=== PATIENT | female | born 1990 | race Caucasian/White ===

== ENCOUNTER 2025-02-15 15:04 | Outpatient (REF) | payer OTHER, SELFPAY ==
[2025-02-19 10:08] LABS: Age Gdln ACOG Testing Note (.); HPV Aptima Negative (Negative); IGP, Aptima HPV, rfx 16/18,45 Note (.)
== END 2025-02-15 15:05 | disposition home or self-care (01) ==
LOC: LAB 15:04
PROVIDERS: PCP Family Medicine; Visit Provider Obstetrics & Gynecology
DX: Z01.419 Encounter for gynecological examination (general) (routine) without abnormal findings (principal)
CPT/HCPCS: 87624; 88175

== ENCOUNTER 2025-05-10 08:02 | Outpatient (RCR) | payer OTHER, SELFPAY ==
[2025-05-10] MEDS: RHO(D) IMMUNE GLOBULIN 1,500 UNIT SYRINGE 1500 UNIT IM (09:34)
[2025-05-10 09:39] VITALS: BP 114/71; PULSE 88; TEMP 36.6; O2SAT 95
== END 2025-05-17 23:59 | disposition home or self-care (01) ==
LOC: INF 08:02
PROVIDERS: Absent Provider Obstetrics & Gynecology; Family Provider Family Medicine; PCP Family Medicine; Referring Provider Obstetrics & Gynecology; Visit Provider Obstetrics & Gynecology
DX: O26.893 Other specified pregnancy related conditions, third trimester (principal); Z67.91 Unspecified blood type, Rh negative; Z3A.00 Weeks of gestation of pregnancy not specified
CPT/HCPCS: 36415; 86850; 86900; 86901; 96372; J2791

== ENCOUNTER 2025-06-19 10:54 | Outpatient (OUT) | payer OTHER, SELFPAY ==
--- NOTE | 2025-06-19 11:06 | US_ITS ---
The [address] [address] Patient Name: NORIS SAUCEDA MRN: [id number] date: 1990 Sex: F Assigned Patient Location: Current Patient Location: US Accession/Order Number: [id number] Exam Date: 06/19/2025 11:08 Report Date: 06/19/2025 12:15 At the request of: MARBELLA OMER DO Procedure: US OB BPP w non-stress BIOPHYSICAL PROFILE: CLINICAL INFORMATION: Multigravida of advanced maternal age COMPARISON: None There is a single live intrauterine gestation in cephalic presentation. The reported gestational age is 34 weeks 3 days. The heart rate measures 139 beats per minute. FINDINGS: TONE: 1 or more episodes of activity extension and flexion of extremity or opening and closing of the hand [Y] 2/2 GROSS BODY MOVEMENTS: 3 or more discrete body or limb movements [Y] 2/2 BREATHING MOVEMENTS: 1 or more episodes of breathing lasting at least 30 seconds [Y] 0/2 GRAYSON: A single deepest vertical pocket of amniotic fluid greater than 2 cm [Y] 2/2 GRAYSON: 17.7 cm. This is in upper normal range . Total score: 6/8 US/ OB BPP w non-stress IMPRESSION: FAILED BIOPHYSICAL PROFILE WITH NO BREATHING. Impression dictated by: Annel Barnhart M.D. 06/19/2025 12:15 PM Dictation Location: [email or web address] Electronically authenticated by: [id number] Y Date: 06/19/2025 12:15
[2025-06-19 11:54] VITALS: BP 121/73; PULSE 78
== END 2025-06-19 12:35 | disposition home or self-care (01) ==
LOC: US 10:54 → FBC 11:07
PROVIDERS: Family Provider Family Medicine; PCP Family Medicine; Visit Provider Obstetrics & Gynecology
DX: O09.523 Supervision of elderly multigravida, third trimester (principal); Z3A.34 34 weeks gestation of pregnancy
CPT/HCPCS: 76818

== ENCOUNTER 2025-06-22 17:12 | Outpatient (OUT) | payer OTHER, SELFPAY ==
--- NOTE | 2025-06-22 17:17 | US_ITS ---
[place] [id number] Patient Name: NORIS SAUCEDA MRN: [id number] date: 1990 Sex: F Assigned Patient Location: [facility] Current Patient Location: Accession/Order Number: [id number] Exam Date: 06/22/2025 17:18 Report Date: 06/22/2025 21:47 At the request of: MARBELLA OMER DO Procedure: US OB BPP w non-stress Ultrasound biophysical profile HISTORY: Multigravida. Advanced maternal age. Adequate breathing movement, gross body movement, tone and amniotic fluid volume for total score of 8 out of 8. The amniotic fluid index is 15.2cm within normal limits. The heart rate 150 bpm. US/US OB BPP w non-stress IMPRESSION: Adequate ultrasound biophysical profile Impression dictated by: Alfonzo Flores M.D. 06/22/2025 9:47 PM Dictation Location[facility] Electronically authenticated by: [id number] Y Date: 06/22/2025 21:47
--- OUTSIDE RECORDS SUMMARY | 2025-06-22 17:19 | XMS_ITS | CCD ---
Author Organization [facility] Care Team Providers Care Hr Generalist Name Role Phone OLIVA, MARIANELA E Unavailable Unavailable OLIVA, MARIANELA E Unavailable Unavailable OLIVA, MARIANELA E Unavailable Unavailable Macario Jarvis Attending Unavailable OLIVA, MARIANELA~[id number] UNKNOWN Primary Care Unavailable HEDGES, CHAU Admitting Unavailable HEDGES, CHAU Attending Unavailable HEDGES, CHAU Referring Unavailable OLIVA, MARIANELA~[id number] UNKNOWN Primary Care Unavailable HEDGES, CHAU W Referring Unavailable OLIVA, MARIANELA Primary Care Unavailable HEDGES, CHAU W Referring Unavailable OLIVA, MARIANELA Primary Care Unavailable HEDGES, CHAU W Referring Unavailable OLIVA, MARIANELA Primary Care Unavailable HEDGES, CHAU W Referring Unavailable OLIVA, MARIANELA Primary Care Unavailable HEDGES, CHAU W Admitting Unavailable HEDGES, CHAU W Attending Unavailable OLIVA, MARIANELA Primary Care Unavailable HEDGES, CHAU W Referring Unavailable OLIVA, MARIANELA Primary Care Unavailable HEDGES, CHAU W Referring Unavailable OLIVA, MARIANELA Primary Care Unavailable HEDGES, CHAU W Referring Unavailable OLIVA, MARIANELA Primary Care Unavailable Regina Huddleston Unavailable MD Marianela Oliva Primary Care Provider DO Mario Perez Attending Provider MD Marianela Oliva Primary Care Provider MD Derrick Wilson Attending Provider Marianela Oliva Unavailable MD Marianela Oliva Primary Care Provider [phone] DO Marissa Garcia Attending Provider MD Marianela Oliva Attending Provider MD Marianela Oliva Primary Care Provider Kuns, DO Mario P Attending Provider MD Marianela Oliva Primary Care Provider Kun - [facility], DO Mario P Attending Provider MD Marianela Oliva Attending Provider MD Derrick Wilson Attending Provider NO FAMILY, PHYSICIAN Primary Care Provider Unava ilable SAUL Reddy Attending Provider Marianela Oliva MD Primary Care Provider Marianela Oliva MD Primary Care Provider Kekaren SANTAMARIA Jose A Emergency Provider Marianela Oliva MD Primary Care Provider Kekaren SANTAMARIA Jose A Emergency Provider Yasmani Abdullahi DO Attending Provider Marianela Oliva MD Primary Care Provider [phone] Marianela Oliva MD Primary Care Provider Marianela Oliva MD Primary Care Provider Kuns - [facility], Mario P Admitting Unavailable Kuns - [facility], Mario P Attending Unavailable Oliva, Marianela E Primary Care Unavailable NO FAMILY, PHYSICIAN Primary Care Unavailable Derrick Wilson Admitting Unavailable Derrick Wilson Attending Unavailable Melissa Reddy Admitting Unavailable Melissa Reddy Attending Unavailable Oliva, Marianela E Primary Care Unavailable Oliva, Marianela E Primary Care Unavailable Oliva, Marianela E Attending Unavailable Oliva, Marianela E Admitting Unavailable Kaylen, Yasmani Attending Unavailable Oliva, Marianela E Primary Care Unavailable Kaylen, Yasmani Admitting Unavailable Kaylen, Yasmani Admitting Unavailable Kaylen, Yasmani Attending Unavailable Oliva, Marianela E Primary Care Unavailable Keister, Jose A Attending Unavailable Oliva, Marianela E Primary Care Unavailable Keister, Jose A Admitting Unavailable Kuns - [facility], Mario P Admitting Unavailable Kuns - [facility], Mario P Attending Unavailable Oliva, Marianela E Primary Care Unavailable KAYLEN, YASMANI Attending Unavailable KAYLEN, YASMANI Attending Unavailable KAYLEN, YASMANI Referring Unavailable KAYLEN, YASMANI Attending Unavailable KAYLEN, YASMANI Attending Unavailable YASMANI ABDULLAHI Attending Unavailable YASMANI ABDULLAHI Referring Unavailable YASMANI ABDULLAHI Attending Unavailable YAMSANI ABDULLAHI Attending Unavailable Marianela Oliva MD Primary Care Provider Yasmani Abdullahi DO Attending Provider [phone] [facility] Mario SANTAMARIA Attending Provider Marianela Oliva MD Attending Provider [phone] Medications Current Medications Medication Drug Class(es) Dates Sig (Normalized) Sig (Original) acetaminophen 500 mg oral tablet (20 sources) acetaminophen (Tylenol) 500 MG tablet Take by mouth Active Albuterol Sulfate 90 mcg/actuation HFA aerosol inhaler (3 sources) Start: 08-11-2024 Albuterol Sulfate 90 mcg/actuation HFA aerosol inhaler Active 1 INH INHALATION Every 4 hours as needed for shortness of breath or wheezing 6.7 August 11, 2024 12:00am Start: 08-11-2024 Albuterol Sulf ate 90 mcg/actuation HFA aerosol inhaler Active 1 INH INHALATION Every 4 hours as needed for shortness of breath or wheezing 6.7 August 10, 2024 11:00pm ALPRAZolam 0.5 mg oral tablet (2 sources) Benzodiazepine take 1 tablet by mouth every twelve hours ALPRAZolam 0.5 MG 1 tablet Orally Twice a day Active amoxicillin 500 mg oral capsule (6 sources) Penicillin-class Antibacterial Start: 12-04-19 take 1 capsule by mouth every eight hours Amoxicillin 500 MG 1 capsule Orally every 8 hrs for 5 day(s) Nov, Active Start: 10-15-2019 take 1 tablet by yamileth th every twelve hours Amoxicillin 875 MG 1 tablet Orally Twice a day for 7 days Sep, Not-Taking Blood Glucose Monitoring Suppl (D-Care Glucometer) w/Device kit (7 sources) Start: 02-15-2025 End: 02-15-2026 Blood Glucose Monitoring Suppl (D-Care Glucometer) w/Device kit Indications: Glucose found in urine on examination 1 kit Daily Use four times daily to check FSBS. In the morning prior to breakfast & 1 hour after each meal for a total of 4times daily. 1 kit 02/15/2025 02/15/2026 Active Blood Glucose Monitoring Suppl (True Metrix Air Glucose Meter) w/Device kit (14 sources) Start: 04-09-2025 Blood Glucose Monitoring Suppl (True Metrix Air Glucose Meter) w/Device kit Indications: Gestational diabetes mellitus (GDM), antepartum, gestational diabetes method of control unspecified ([facility]) 1 kit in the morning and 1 kit at noon and 1 kit in the evening and 1 kit before bedtime. 1 kit 04/09/2025 Active cephalexin 500 mg oral capsule (4 sources) Cephalosporin Antibacterial Start: 01-07-2022 take 1 capsule by mouth twice daily Cephalexin 500 MG 1 capsule Orally Twice daily for 7 days Dec, Active isopropyl alcohol 0.7 ml/ml medicated pad (20 sources) Start: 02-15-2025 Alcohol Swabs (Alcohol Prep Pad) 70 % pads Indications: Glucose found in urine on examination Apply 1 Pad topically Daily Use four times daily to check FSBS. 150 each 3 02/15/2025 Active penicillin v potassium 500 mg oral tablet (3 sources) Start: 08-07-2022 take 1 tablet by mouth every twelve hours Penicillin V Potassium 500 MG 1 tablet Orally Twice a day for 10 day(s) Jul, Active MV-Min-Fe Fum-FA-DHA ( 1 PO) (20 sources) MV-Min- Fe Fum-FA-DHA ( 1 PO) Take by mouth Active sertraline 100 mg oral tablet (20 sources) Serotonin Reuptake Inhibitor Start: 03-15-2025 End: 03-15-2026 take 1 tablet by mouth once daily sertraline (Zoloft) 100 MG tablet Indications: Anxiety, generalized Take 1 tablet (100 mg) by mouth Daily 30 tablet 11 03/15/2025 03/15/2026 Active Start: 05-18-2024 End: 03-15-2025 Sertraline 100 mg tablet Discontinued 50 MG PO Daily May 18, 2024 10:46am October 24, 2024 5:39pm Start: 05-18-2024 take 50 mg by mouth once daily Sertraline Active 50 MG PO Daily May 18, 2024 10:46am Start: 02-29-2024 End: 05-18-2024 take 1 tablet by mouth once daily Sertraline 100 mg tablet Discontinued 0 .ROUTE .COMPLEX February 29, 2024 1:13pm May 18, 2024 10:47am TAKE 1 TABLET BY MOUTH DAILY Start: 12-02-2023 End: 12-02-2023 take 2 tablets by mouth once daily Sertraline (Zoloft) 50 mg tablet Discontinued 100 MG PO Daily December 02, 2023 1:04pm December 02, 2023 2:18pm Start: 12-02-2023 End: 02-29-2024 take 1 tablet by mouth once daily Sertraline 100 mg tablet Discontinued 100 MG PO Daily December 02, 2023 1:00am February 29, 2024 1:13pm Start: 06-24-2019 End: 03-15-2025 take 1 tablet by mouth once daily Sertraline (Zoloft) 50 mg tablet Discontinued 50 MG PO Daily December 02, 2023 2:18pm December 02, 2023 5:09pm take 1 tablet by yamileth th once daily Sertraline HCl 100 MG TAKE 1 TABLET BY MOUTH EVERY DAY for 30 Active Completed/Discontinued Medications Medication Drug Class(es) Dates Sig (Normalized) Sig (Original) [id number] 200 actuat albuterol 0.09 mg/actuat metered dose inhaler (3 sources) beta2-Adrenergic Agonist Start: 08-11-2024 End: 06-12-2025 Albuterol Sulfate 90 mcg/actuation HFA aerosol inhaler Discontinued 1 INH INHALATION Every 4 hours as needed for shortness of breath or wheezing 6.7 August 11, 2024 12:00am June 12, 2025 8:33am Start: 08-11-2024 Albuterol Sulf ate Active 1 INH INHALATION Every 4 hours 6.7 August 11, 2024 12:00am azithromycin 250 mg oral tablet (4 sources) Macrolide Antimicrobial Start: 08-16-2024 End: 06-12-2025 Azithromycin 250 mg tablet Discontinued 0 PO .COMPLEX August 16, 2024 12:00am June 12, 2025 8:32am For 250 mg dose pack: take 500 mg today (day 1), then 250 mg for 4 days (days 2-5) PO dextromethorphan hydrobromide 15 mg / guaiFENesin 400 mg / pseudoephedrine hydrochloride 60 mg oral tablet (6 sources) alpha-Adrenergic Agonist, Uncompetitive P-xrsfmp-V-aspartat e Receptor Antagonist, Sigma-1 Agonist Start: 08-11-2024 End: 06-12-2025 take 4 tablets by mouth every twenty-four hours as needed Pseudoephedrine-D m-Guaifenesin (Capmist Dm) 60-15-400 mg tablet Discontinued 1 TAB PO Every 4 hours as needed for cold symptoms 06 03August 11, 2024 12:00am June 12, 2025 8:32am do not exceed 4 doses per 24 hrs docusate sodium 100 mg oral capsule (14 sources) Start: 06-24-2019 End: 08-15-2024 take 1 capsule by mouth once daily Docusate Sodium (Colace) 100 mg capsule Discontinued 100 MG PO Daily June 24, 2019 12:00am August 15, 2024 9:18am doxycycline hyclate 100 mg oral capsule (6 sources) Tetracycline-class Drug Start: 08-11-2024 End: 08-16-2024 take 1 capsule by mouth twice daily Doxycycline Hyclate 100 mg capsule Discontinued 100 MG PO Twice daily 06 08August 11, 2024 12:00am August 16, 2024 1:12pm ferrous sulfate 325 mg oral tablet (20 sources) Start: 06-24-2019 End: 06-12-2025 take 1 tablet by mouth once daily Ferrous Sulfate 325 mg (65 mg iron) tablet Discontinued 325 MG PO Daily June 24, 2019 12:00am June 12, 2025 8:36am Start: 05-30-2019 End: 06-24-2019 take 1 tablet by mouth twice daily Ferrous Sulfate 325 mg (65 mg iron) Tablet Discontinued 325 MG PO Twice daily May 30, 2019 12:00am June 24, 2019 10:41am fluconazole 150 mg oral tablet (4 sources) Azole Antifungal Start: 10-15-2019 take 1 tablet by mouth once Diflucan 150 MG 1 tablet Orally once for 1 days Sep, Not-Taking ibuprofen 800 mg oral tablet (14 sources) Nonsteroidal Anti-inflammatory Drug Start: 06-24-2019 End: 06-12-2025 take 1 tablet by mouth every six hours as needed for pain Ibuprofen 800 mg tablet Discontinued 800 MG PO Q6H as needed for pain June 24, 2019 12:00am June 12, 2025 8:36am Pnv Cmb#95-Ferrous Fumarate-Fa () 28 mg iron- 800 mcg Tablet (13 sources) Start: 02-27-2019 End: 06-24-2019 take 1 tablet by mouth once daily Pnv Cmb#95-Ferrous Fumarate-Fa () 28 mg iron- 800 mcg Tablet Discontinued 1 TAB PO Daily February 27, 2019 12:00am June 24, 2019 10:41am Start: 02-27-2019 End: 06-24-2019 take 1 tablet by mouth once daily Pnv Cmb#95-Ferrous Fumarate-Fa () 28 mg iron- 800 mcg Tablet Discontinued 1 TAB PO Daily February 26, 2019 11:00pm June 24, 2019 9:41am Pnv No.95-Ferrous Fumarate-Fa () 28 mg iron- 800 mcg Tablet (1 source) Start: 02-27-2019 End: 06-24-2019 take 1 tablet by mouth once daily Pnv No.95-Ferrous Fumarate-Fa () 28 mg iron- 800 mcg Tablet Discontinued 1 TAB PO Daily February 27, 2019 12:00am June 24, 2019 10:41am polysaccharide iron complex 391 mg oral capsule (3 sources) Start: 02-19-2025 End: 03-21-2025 take 1 capsule by mouth once daily iron polysaccharides (ProFe) 391.3 (180 Fe) MG capsule Indications: H/O: iron deficiency anemia Take 1 capsule (391.3 mg) by mouth Daily 30 capsule 6 02/19/2025 03/15/2025 Discontinued predniSONE 20 mg oral tablet (6 sources) Start: 08-11-2024 End: 06-12-2025 take 2 tablets by mouth once daily Prednisone 20 mg tablet Discontinued 40 MG PO Daily 07 22August 11, 2024 12:00am June 12, 2025 8:33am Start: 08-11-2024 take 40 mg by mouth once daily Prednisone Active 40 MG PO Daily 07 22August 11, 2024 12:00am Vitamins (4 sources) Vitamin s Not-Taking Problems Active Problems Problem Classification Problem Date Documented Date Episodic/Chronic Anxiety disorders (4 sources) Generalized anxiety disorder; Translations: [Generalized anxiety disorder] 03-15-2025 Chronic Contraceptive and procreative management (2 sources) Patient encounter status; Translations: [Encounter for other general counseling and advice on contraception] 02-15-2025 Episodic Diabetes mellitus without complication (2 sources) Glycosuria; Translations: [Glycosuria] 02-15-2025 Episodic Diabetes or abnormal glucose tolerance complicating ; childbirth; or the puerperium (2 sources) Gestational diabetes mellitus; Translations: [Gestational diabetes mellitus in , unspecified control] 05-22-2025 Episodic Immunizations and screening for infectious disease (2 sources) Exposure to sexually transmissible disorder; Translations: [Contact with and (suspected) exposure to infections with a predominantly sexual mode of transmission] 02-15-2025 Episodic Menstrual disorders (1 source) Amenorrhea, unspecified; Translations: [Amenorrhea, unspecified] Onset: 03-03-2018 Chronic Other complications of (4 sources) Abdominal pain in ; Translations: [Other specified related conditions, unspecified trimester] 12-06-2024 Episodic Other complications of (10 sources) Multigravida of advanced maternal age; Translations: [Supervision of elderly multigravida, unspecified trimester] 01-18-2025 Episodic Other female genital disorders (2 sources) Vaginal discharge; Translations: [Other specified noninflammatory disorders of vagina] 02-15-2025 Episodic Other hematologic conditions (1 source) Personal history of diseases of the blood and blood-forming organs and certain disorders involving the immune mechanism; Translations: [Personal history of diseases of the blood and blood-forming organs and certain disorders involving the immune mechanism] Onset: 03-14-2025 Episodic Other and delivery including normal (20 sources) Encounter for supervision of other normal , first trimester; Translations: [Encounter for test, result positive] Onset: 03-03-2018 01-18-2025 Episodic Other screening for suspected conditions (not mental disorders or infectious disease) (5 sources) Encounter for screening mammogram for malignant neoplasm of breast; Translations: [Patient encounter status] Episodic Other skin disorders (9 sources) Mass of skin of chest; Translations: [Localized swelling, mass and lump, trunk] 05-18-2024 Episodic Other upper respiratory infections (1 source) Streptococcal pharyngitis Episodic Pneumonia (except that caused by tuberculosis or sexually transmitted disease) (5 sources) Pneumonia, unspecified organism; Translations: [Pneumonia, organism unspecified] 08-11-2024 Episodic Residual codes; unclassified (1 source) Family history of carrier of genetic disease Episodic Residual codes; unclassified (1 source) Family history of malignant neoplasm of breast Episodic Residual codes; unclassified (2 sources) Gestation period, 12 weeks; Translations: [12 weeks gestation of ] 01-18-2025 Episodic Residual codes; unclassified (2 sources) Gestation period, 16 weeks; Translations: [16 weeks gestation of ] 02-15-2025 Episodic Residual codes; unclassified (2 sources) Gestation period, 20 weeks; Translations: [20 weeks gestation of ] 03-15-2025 Episodic Residual codes; unclassified (2 sources) Gestation period, 24 weeks; Translations: [24 weeks gestation of ] 04-10-2025 Episodic Residual codes; unclassified (2 sources) Gestation period, 28 weeks; Translations: [28 weeks gestation of ] 05-10-2025 Episodic Residual codes; unclassified (2 sources) Gestation period, 30 weeks; Translations: [30 weeks gestation of ] 05-22-2025 Episodic Residual codes; unclassified (2 sources) Gestation period, 32 weeks; Translations: [32 weeks gestation of ] 06-07-2025 Episodic Residual codes; unclassified (2 sources) Gestation period, 34 weeks; Translations: [34 weeks gestation of ] 06-21-2025 Episodic Unclassified (1 source) Cough, unspecified; Translations: [Cough, unspecified] Onset: 08-11-2024 Past or Other Problems Problem Classification Problem Date Documented Date Episodic/Chronic Abdominal pain (1 source) Unspecified abdominal pain; Translations: [Unspecified abdominal pain] Onset: 12-06-2024 Episodic Genitourinary symptoms and ill-defined conditions (1 source) Frequency of micturition Onset: 01-07-2022 Resolved: 01-07-2022 Episodic Hemorrhage during ; abruptio placenta; placenta previa (1 source) Threatened ; Translations: [Threatened ] Onset: 03-03-2018 Episodic Other complications of (1 source) Blighted ovum and nonhydatidiform mole; Translations: [Blighted ovum and nonhydatidiform mole] Onset: 03-09-2018 Episodic Other complications of (1 source) Supervision of other high risk pregnancies, first trimester; Translations: [Supervision of other high risk pregnancies, first trimester] Onset: 03-03-2018 Episodic Other skin disorders (6 sources) Localized swelling, mass and lump, trunk; Translations: [Localized superficial swelling, mass, or lump] Onset: 05-23-2024 05-18-2024 Episodic Spontaneous (1 source) Complete or unspecified spontaneous without complication; Translations: [Complete or unspecified spontaneous without complication] Onset: 03-22-2018 Episodic Urinary tract infections (1 source) Urinary tract infection, site not specified Onset: 01-07-2022 Resolved: 01-07-2022 Episodic Results Test Name Value Interpretation Reference Range Facility Urinalysis macro (dipstick) panel (U)on 06-21-2025 Bilirubin, UA Negative Negative - 4(70) +++ mg/dL [facility] Blood, UA Negative Negative - 50 Tavon/mcL [facility] Clarity, UA Clear [facility] Color, UA Yellow [facility] Glucose, UA Negative Negative - 2000(110) ++++ mg/dL [facility] Interpretation and review of laboratory results Abnormal [facility] Ketones, UA Positive Negative - 160(16) ++++ mg/dL [facility] Leukocytes, UA 1+ Negative - 500+++ Bertha/mcL [facility] Nitrite, UA Negative Negative - Positive [facility] pH, UA 7 5 - 9 [facility] Protein, UA Negative Negative - 2000(20) ++++ mg/dL [facility] Spec Grav, UA 1.015 1 - 1.03 [facility] Urobilinogen, UA 1.0 0.2 - 12 mg/dL [facility] US OB BPP W NON-STRESS on 06-19-2025 [place] [address] Ultrasound Report Signed Patient: NORIS GOETZ MR#: [id number] : 1990 Acct:[id number] Age/Sex: 35 / F ADM Date: 06/19/25 Loc: [facility] 250-[address]: Yasmani Abdullahi D.O. Ordering Physician: Yasmani Abdullahi D.O. Date of Service: 06/19/25 Procedure(s): US OB BPP w non-stress Accession Number(s): [id number] cc: Marianela Oliva M.D.; Yasmani Abdullahi D.O. The [place] [id number] Patient Name: NORIS GOETZ MRN: [facility]:[id number] date: 1990 Sex: F Assigned Patient Location: US Current Patient Location: US Accession/Order Number: [id number] Exam Date: 06/19/2025 11:08 Report Date: 06/19/2025 12:15 At the request of: YASMANI ABDULLAHI DO Procedure: US OB BPP w non-stress BIOPHYSICAL PROFILE: CLINICAL INFORMATION: Multigravida of advanced maternal age COMPARISON: None There is a single live intrauterine gestation in cephalic presentation. The reported gestational age is 34 weeks 3 days. The heart rate measures 139 beats per minute. FINDINGS: TONE: 1 or more episodes of activity extension and flexion of extremity or opening and closing of the hand [Y] 2/2 GROSS BODY MOVEMENTS: 3 or more discrete body or limb movements [Y] 2/2 BREATHING MOVEMENTS: 1 or more episodes of breathing lasting at least 30 seconds [Y] 0/2 GRAYSON: A single deepest vertical pocket of amniotic fluid greater than 2 cm [Y] 2/2 GRAYSON: 17.7 cm. This is in upper normal range . Total score: 6/8 US/US OB BPP w non-stress IMPRESSION: FAILED BIOPHYSICAL PROFILE WITH NO BREATHING. Impression dictated by: Annel Barnhart M.D. 06/19/2025 12:15 PM Dictation Location: [place] [address] Electronically authenticated by: [id number] Y Date: 06/19/2025 12:15 Dictated By: Annel Barnhart M.D. Signed By: 06/19/25 1217 DD/ 14 TD/TT: Stringer Machine Tender: [facility] RadiologyRuben MD - 06/19/2025 [place] [address] Ultrasound Report Signed Patient: NORIS GOETZ MR#: [id number] : 1990 Acct:[id number] Age/Sex: 35 / F ADM Date: 06/19/25 Loc: [facility] 250-[address]: Yasmani Abdullahi D.O. Ordering Physician: Yasmani Abdullahi D.O. Date of Service: 06/19/25 Procedure(s): US OB BPP w non-stress Accession Number(s): [id number] cc: Marianela Oliva M.D.; Yasmani Abdullahi D.O. [place] [address] Patient Name: NORIS GOETZ MRN: [id number] date: 1990 Sex: F Assigned Patient Location: US Current Patient Location: US Accession/Order Number: [id number] Exam Date: 06/19/2025 11:08 Report Date: 06/19/2025 12:15 At the request of: YASMANI ABDULLAHI DO Procedure: US OB BPP w non-stress BIOPHYSICAL PROFILE: CLINICAL INFORMATION: Multigravida of advanced maternal age COMPARISON: None There is a single live intrauterine gestation in cephalic presentation. The reported gestational age is 34 weeks 3 days. The heart rate measures 139 beats per minute. FINDINGS: TONE: 1 or more episodes of activity extension and flexion of extremity or opening and closing of the hand [Y] 2/2 GROSS BODY MOVEMENTS: 3 or more discrete body or limb movements [Y] 2/2 BREATHING MOVEMENTS: 1 or more episodes of breathing lasting at least 30 seconds [Y] 0/2 GRAYSON: A single deepest vertical pocket of amniotic fluid greater than 2 cm [Y] 2/2 GRAYSON: 17.7 cm. This is in upper normal range . Total score: 6/8 US/US OB BPP w non-stress IMPRESSION: FAILED BIOPHYSICAL PROFILE WITH NO BREATHING. Impression dictated by: Annel Barnhart M.D. 06/19/2025 12:15 PM Dictation Location: [place] [address] Electronically authenticated by: [id number] Y Date: 06/19/2025 12:15 Dictated By: Annel Barnhart M.D. Signed By: 06/19/25 1217 DD/ 14 TD/TT: Stringer Machine Tender: [facility] Radiology Study observation (narrative) [facility] OB BPP W NON-STRESS Ordered By: Radiologist Radiology on 06-19-2025 [facility] Work Phone: Urinalysis macro (dipstick) panel (U)on 06-07-2025 Bilirubin, UA Negative Negative - 4(70) +++ mg/dL [facility] Blood, UA Negative Negative - 50 Tavon/mcL [facility] Clarity, UA Clear [facility] Color, UA Yellow [facility] Glucose, UA Negative Negative - 2000(110) ++++ mg/dL [facility] Interpretation and review of laboratory results Normal [facility] Ketones, UA Negative Negative - 160(16) ++++ mg/dL [facility] Leukocytes, UA Negative Negative - 500+++ Bertha/mcL [facility] Nitrite, UA Negative Negative - Positive [facility] pH, UA 7.5 5 - 9 [facility] Protein, UA Negative Negative - 2000(20) ++++ mg/dL [facility] Spec Grav, UA 1.005 1 - 1.03 [facility] Urobilinogen, UA 1.0 0.2 - 12 mg/dL [facility] US OB FOLLOW UP TRANSABDOMIN AL APPROACHon 05-22-2025 US OB FOLLOW UP TRANSABDOMINAL APPROACH FINDINGS: Comparison March 15, 2025. A single, live intrauterine is present with normal cardiac rate of 153 beats per minute. Normal activity and amniotic fluid volume. Amniotic fluid index is 18 cm. Morphology is grossly normal. The current sonographic age is 32 weeks and 3 days, based on the following measurements: BPD 8.1 cm (32 weeks, 5 days) Head Circumference 29.9 cm (33 weeks, 1 day) Abdominal Circumference 27.8 cm (31 weeks, 6 days) Femur Length 6.1 cm (31 weeks, 6 days) Weight (g) by Percentile 88.4 % * These measurements result in an estimated date of delivery of July 14, 2025. The current estimated weight is 1889 grams +/- 283 grams (4 pounds, 3 ounces). IMPRESSION: Single, live intrauterine , current sonographic age of 32 weeks and 3 days, with an estimated date of delivery of July 14, 2025 (prior RENITA July 23, 2025) * Estimated Weight (g) by Percentile is based upon an accurate estimated age based on last menstrual period. TRANSCRIBED BY: ELECTRONICALLY SIGNED BY: Minh Reddy MD Normal Not Available Comment on above: Order Comment: US OB SCAN FOR GROWTH Estimated Date of Delivery: 07/28/25 Gestational Age as of 05/10/2025: 28w5d Urinalysis macro (dipstick) panel (U)on 05-22-2025 Bilirubin, UA Negative Negative - 4(70) +++ mg/dL [facility] Blood, UA Negative Negative - 50 Tavon/mcL [facility] Healthcare Clarity, UA Clear [facility] Color, UA Yellow [facility] Glucose, UA Negative Negative - 1999(110) ++++ mg/dL [facility] Interpretation and review of laboratory results Normal [facility] Ketones, UA Negative Negative - 160(16) ++++ mg/dL [facility] Leukocytes, UA Negative Negative - 500+++ Bertha/mcL [facility] Nitrite, UA Negative Negative - Positive [facility] pH, UA 6.5 5 - 9 [facility] Protein, UA Negative Negative - 1999(20) ++++ mg/dL [facility] Spec Grav, UA 1.01 1 - 1.03 [facility] Urobilinogen, UA 1.0 0.2 - 12 mg/dL [facility] Urinalysis macro (dipstick) panel (U)on 05-10-2025 Bilirubin, UA Negative Negative - 4(70) +++ mg/dL [facility] Blood, UA Negative Negative - 50 Tavon/mcL [facility] Healthcare Clarity, UA Clear [facility] Color, UA Yellow [facility] Glucose, UA Negative Negative - 1999(110) ++++ mg/dL [facility] Interpretation and review of laboratory results Abnormal [facility] Ketones, UA Positive Negative - 160(16) ++++ mg/dL [facility] Comment on above: Large Leukocytes, UA Negative Negative - 500+++ Bertha/mcL [facility] Nitrite, UA Negative Negative - Positive [facility] pH, UA 6.5 5 - 9 [facility] Healthcare Protein, UA Trace Negative - 1999(20) ++++ mg/dL [facility] Spec Grav, UA 1.015 1 - 1.03 [facility] Urobilinogen, UA 0.2 0.2 - 12 mg/dL [facility] Urinalysis macro (dipstick) panel (U)on 04-10-2025 Bilirubin, UA Negative Negative - 4(70) +++ mg/dL [facility] Blood, UA Negative Negative - 50 Tavon/mcL [facility] Clarity, UA Clear [facility] Color, UA Yellow [facility] Glucose, UA Negative Negative - 1999(110) ++++ mg/dL [facility] Interpretation and review of laboratory results Normal [facility] Ketones, UA Negative Negative - 160(16) ++++ mg/dL [facility] Leukocytes, UA Negative Negative - 500+++ Bertha/mcL [facility] Nitrite, UA Negative Negative - Positive [facility] pH, UA 6.5 5 - 9 [facility] Protein, UA Negative Negative - 1999(20) ++++ mg/dL [facility] Spec Grav, UA 1.025 1 - 1.03 [facility] Urobilinogen, UA 1.0 0.2 - 12 mg/dL [facility] Albumin [Mass/volume] in Ser um or Plasma by Bromocresol green (BCG) dye binding methoOrdered By: Mario Perez on 04-02-2025 Albumin BCG dye [Mass/Vol] 3.4 g/dL Low 3.5-5.7 [facility] Cholesterol in LDL Calc [Mas s/Vol]Ordered By: Mario Perez on 04-02-2025 Cholesterol in LDL [Mass/Vol] 120 mg/dL High 0-100 [facility] Comment on above: LDL ATP III CLASSIFI CATIONLDL less than 100 mg/dL OptimalLDL 100-129 mg/dL Near or above optimalLDL 130-159 mg/dL Borderline highLDL 160-189 mg/dL HighLDL greater than 189 mg/dL Very high Cholesterol in VLDL Calc [Ma ss/Vol]Ordered By: Mario Perez on 04-02-2025 Cholesterol in VLDL [Mass/Vol] 26 mg/dL [facility] Employee Comp Metabolic Pane marcel 04-02-2025 Albumin [Mass/Vol] 3.4 g/dL Low 3.5-5.7 [facility] Comment on above: Performed By: #### P ILLAR TSH, PILLAR CBC, PILLAR BMP, PILLAR LIPID #### [facility] [address] [place] [address] GFR/1.73 sq M.predicted MDRD (S/P/Bld) [Vol rate/Area] mL/min/{1.73_m2} Normal [facility] Comment on above: Performed By: #### P ILLAR TSH, PILLAR CBC, PILLAR BMP, PILLAR LIPID #### [facility] [address] [place] [address] Employee Comp Metabolic Pane lOrdered By: Mario Perez on 04-02-2025 Albumin/Globulin [Mass ratio] 1.5 {ratio} [facility] Comment on above: Performed By: #### P ILLAR TSH, PILLAR CBC, PILLAR BMP, PILLAR LIPID #### [address] ALP [Catalytic activity/Vol] 39 U/L 34-104 [facility] Comment on above: Performed By: #### P ILLAR TSH, PILLAR CBC, PILLAR BMP, PILLAR LIPID #### [facility] [address] [place] [address] ALT [Catalytic activity/Vol] 10 U/L 7-52 [facility] Comment on above: Performed By: #### P ILLAR TSH, PILLAR CBC, PILLAR BMP, PILLAR LIPID #### [facility] [address] [place] [address] Anion gap [Moles/Vol] 8.5 mmol/L 6.0-15.0 [facility] Comment on above: Performed By: #### P ILLAR TSH, PILLAR CBC, PILLAR BMP, PILLAR LIPID #### [facility] [address] [place] [address] AST [Catalytic activity/Vol] 12 U/L Low 13-39 [facility] Comment on above: Performed By: #### P ILLAR TSH, PILLAR CBC, PILLAR BMP, PILLAR LIPID #### [facility] [address] [place] [address] Bilirubin [Mass/Vol] 0.3 mg/dL 0.3-1.0 [facility] Comment on above: Performed By: #### P ILLAR TSH, PILLAR CBC, PILLAR BMP, PILLAR LIPID #### [facility] [address] Calcium [Mass/Vol] 8.2 mg/dL Low 8.6-10.3 [facility] Comment on above: Performed By: #### P ILLAR TSH, PILLAR CBC, PILLAR BMP, PILLAR LIPID #### [facility] [address] Chloride [Moles/Vol] 106 mmol/L 98-107 [facility] Comment on above: Performed By: #### P ILLAR TSH, PILLAR CBC, PILLAR BMP, PILLAR LIPID #### [facility] [address] [place] [address] CO2 [Moles/Vol] 25.4 mmol/L 21.0-31.0 [facility] Comment on above: Performed By: #### P ILLAR TSH, PILLAR CBC, PILLAR BMP, PILLAR LIPID #### [facility] [address] [place] [address] Creatinine [Mass/Vol] 0.49 mg/dL Low 0.60-1.20 [facility] Comment on above: Performed By: #### P ILLAR TSH, PILLAR CBC, PILLAR BMP, PILLAR LIPID #### [facility] [address] [place] [address] Globulin (S) [Mass/Vol] 2.3 g/dL [facility] Comment on above: Performed By: #### P ILLAR TSH, PILLAR CBC, PILLAR BMP, PILLAR LIPID #### [facility] [address] [place] [address] Glucose [Mass/Vol] 92 mg/dL 70-100 [facility] Comment on above: Performed By: #### P ILLAR TSH, PILLAR CBC, PILLAR BMP, PILLAR LIPID #### [facility] [address] [place] [address] Potassium [Moles/Vol] 3.9 mmol/L 3.5-5.1 [facility] Comment on above: Performed By: #### P ILLAR TSH, PILLAR CBC, PILLAR BMP, PILLAR LIPID #### [facility] [address] [place] [address] Protein [Mass/Vol] 5.7 g/dL Low 6.4-8.9 [facility] Comment on above: Performed By: #### P ILLAR TSH, PILLAR CBC, PILLAR BMP, PILLAR LIPID #### [facility] [address] [place] [address] Sodium [Moles/Vol] 136 mmol/L 136-145 [facility] Comment on above: Performed By: #### P ILLAR TSH, PILLAR CBC, PILLAR BMP, PILLAR LIPID #### [address] Urea nitrogen [Mass/Vol] 12 mg/dL 7-25 [facility] Comment on above: Performed By: #### P ILLAR TSH, PILLAR CBC, PILLAR BMP, PILLAR LIPID #### [facility] [address] [place] [address] Employee Complete Blood Coun tOrdered By: Mario Perez on 04-02-2025 Basophils (Bld) [#/Vol] 0.0 10*3/uL 0.0-0.2 [facility] Comment on above: Result Comment: PERF ORMED BY: [place] [id number] PATHOLOGIST TEST CAR DRIVER JESS VARGAS M.D. Performed By: #### P ILLAR LIPID, PILLAR CBC, PILLAR CMP ####[address] Basophils/100 WBC (Bld) 0.5 % . [facility] Comment on above: Performed By: #### P ILLAR LIPID, PILLAR CBC, PILLAR CMP ####[facility] Eosinophils (Bld) [#/Vol] 0.2 10*3/uL 0.0-0.45 [facility] Comment on above: Performed By: #### P ILLAR LIPID, PILLAR CBC, PILLAR CMP ####[place] [id number] [facility] [[email or web address]] Eosinophils/100 WBC (Bld) 2.5 % . [facility] Comment on above: Performed By: #### P ILLAR LIPID, PILLAR CBC, PILLAR CMP ####[place] [id number] [facility] [[email or web address]] Erythrocyte distribution width (RBC) [Ratio] 13.4 % 11.9-15.3 [facility] Comment on above: Performed By: #### P ILLAR LIPID, PILLAR CBC, PILLAR CMP ####[address] Hematocrit (Bld) [Volume fraction] 34.4 % 34.0-46.4 [facility] Comment on above: Performed By: #### P ILLAR LIPID, PILLAR CBC, PILLAR CMP ####[place] [id number] [facility] [[email or web address]] Hemoglobin (Bld) [Mass/Vol] 11.8 g/dL 11.8-15.4 [facility] Comment on above: Performed By: #### P ILLAR LIPID, PILLAR CBC, PILLAR CMP ####[address] Lymphocytes (Bld) [#/Vol] 1.6 10*3/uL 1.00-4.8 [facility] Comment on above: Performed By: #### P ILLAR LIPID, PILLAR CBC, PILLAR CMP ####[place] [id number] [facility] [[email or web address]] Lymphocytes/100 WBC (Bld) 21.6 % . [facility] Comment on above: Performed By: #### P ILLAR LIPID, PILLAR CBC, PILLAR CMP ####[place] [id number] [facility] [[email or web address]] MCH (RBC) [Entitic mass] 29.3 pg 24.7-34.3 [facility] Comment on above: Performed By: #### P ILLAR LIPID, PILLAR CBC, PILLAR CMP ####[address] MCV (RBC) [Entitic vol] 85.4 fL 80-100 [facility] Comment on above: Performed By: #### P ILLAR LIPID, PILLAR CBC, PILLAR CMP ####[address] Monocytes (Bld) [#/Vol] 0.6 10*3/uL 0.0-0.8 [facility] Comment on above: Performed By: #### P ILLAR LIPID, PILLAR CBC, PILLAR CMP ####[address] Monocytes/100 WBC (Bld) 7.9 % . [facility] Comment on above: Performed By: #### P ILLAR LIPID, PILLAR CBC, PILLAR CMP ####[address] Neutrophils (Bld) [#/Vol] 5.0 10*3/uL 1.8-7.7 [facility] Comment on above: Performed By: #### P ILLAR LIPID, PILLAR CBC, PILLAR CMP ####[address] Neutrophils/100 WBC (Bld) 67.5 % . [facility] Comment on above: Performed By: #### P ILLAR LIPID, PILLAR CBC, PILLAR CMP ####[place] [id number] [facility] [[email or web address]] Platelet mean volume (Bld) [Entitic vol] 9.5 fL 6.3-10.7 [facility] Comment on above: Performed By: #### P ILLAR LIPID, PILLAR CBC, PILLAR CMP ####[place] [id number] [facility] [[email or web address]] Platelets (Bld) [#/Vol] 198 10*3/uL 150-450 [facility] Comment on above: Performed By: #### P ILLAR LIPID, PILLAR CBC, PILLAR CMP ####[place] [id number] [facility] [[email or web address]] RBC (Bld) [#/Vol] 4.03 10*6/uL 3.60-5.00 [facility] Comment on above: Performed By: #### P ILLAR LIPID, PILLAR CBC, PILLAR CMP ####[facility] WBC (Bld) [#/Vol] 7.4 10*3/uL 3.8-11.6 [facility] Comment on above: Performed By: #### P ILLAR LIPID, PILLAR CBC, PILLAR CMP ####[facility] [id number] Employee Complete Blood Coun ton 04-02-2025 Mean Corpuscular HGB Conc 34.3 g/dL Normal 32.0-35.0 [facility] Comment on above: Performed By: #### P ILLAR LIPID, PILLAR CBC, PILLAR CMP ####[facility] NRBC% 0.1 /100{WBC} Normal 0-0.5 [facility] Comment on above: Performed By: #### P ILLAR LIPID, PILLAR CBC, PILLAR CMP ####[facility] Employee Lipid ProfileOrdere d By: Mario Perez on 04-02-2025 Cholesterol [Mass/Vol] 222 mg/dL High 140-200 [facility] Comment on above: Result Comment: Chol less than 200 mg/dl low risk Chol 201-239 mg/dl borderline risk Chol 240 mg/dl and greater high risk Performed By: #### P ILLAR TSH, PILLAR CBC, PILLAR BMP, PILLAR LIPID #### [facility] [address] Chol less than 200 m g/dl low riskChol 201-239 mg/dl borderline riskChol 240 mg/dl and greater high risk Cholesterol in HDL [Mass/Vol] 76 mg/dL 23- [facility] Comment on above: Result Comment: HDL CHOL ATP-III CLASSIFICATION Cardiovascular Risk HDL > or equal to 60 mg/dL LOW HDL < 40 mg/dL HIGH Performed By: #### P ILLAR TSH, PILLAR CBC, PILLAR BMP, PILLAR LIPID #### [facility] [address] HDL CHOL ATP-III CLA SSIFICATION Cardiovascular RiskHDL > or equal to 60 mg/dL LOWHDL < 40 mg/dL HIGH Cholesterol.total/Chol esterol in HDL [Mass ratio] 2.9 {ratio} <5.0 [facility] Comment on above: Result Comment: PERF ORMED BY: [place] [id number] PATHOLOGIST TEST CAR DRIVER JESS VARGAS M.D. Performed By: #### P ILLAR TSH, PILLAR CBC, PILLAR BMP, PILLAR LIPID #### [facility] [address] Employee Lipid Profileon LDL Cholesterol,Calculated 120 mg/dL High 0-100 [facility] Comment on above: Result Comment: LDL ATP III CLASSIFICATION LDL less than 100 mg/dL Optimal LDL 100-129 mg/dL Near or above optimal LDL 130-159 mg/dL Borderline high LDL 160-189 mg/dL High LDL greater than 189 mg/dL Very high Performed By: #### P ILLAR TSH, PILLAR CBC, PILLAR BMP, PILLAR LIPID #### [address] Triglyceride w/Reflex 131 mg/dL Normal 0-149 [facility] Comment on above: Result Comment: TRIG ATP III CLASSIFICATION TRIG less than 150 mg/dL Normal TRIG 150-199 mg/dL Borderline high TRIG 200-500 mg/dL High TRIG greater than 500 mg/dL Very high Standard traceable to the Center for Disease Conrtrol and Prevention (CDC) test method. Performed By: #### P ILLAR TSH, PILLAR CBC, PILLAR BMP, PILLAR LIPID #### [facility] [address] VLDL CHOLESTEROL 26 mg/dL Normal [facility] Comment on above: Performed By: #### P ILLAR TSH, PILLAR CBC, PILLAR BMP, PILLAR LIPID #### [facility] [address] [place] [id number] [facility] [[email or web address]] Leukocytes [#/volume] correc randolph for nucleated erythrocytes in Blood by Automated counOrdered By: Mario Perez on 04-02-2025 WBC corrected for nucl RBC Auto (Bld) [#/Vol] 7.4 10*3/uL 3.8-11.6 [facility] MCHC Auto (RBC) [Mass/Vol]Or dered By: Mario Perez on 04-02-2025 MCHC (RBC) [Mass/Vol] 34.3 g/dL 32.0-35.0 [facility] No Panel InformationOrdered By: Mario Perez on 04-02-2025 Estimated GFR (CKD-EPI) > 60.0 mL/Min [facility] Creatinine Clearance (Chem N/A [facility] Nucleated erythrocytes [Pres ence] in Blood by Automated countOrdered By: Mario Perez on 04-02-2025 Nucleated RBC Auto Ql (Bld) 0.1 /100{WBC} 0-0.5 [facility] Triglyceride [Mass/volume] i n Serum or PlasmaOrdered By: Mario Perez on 04-02-2025 Triglyceride [Mass/Vol] 131 mg/dL 0-149 [facility] Comment on above: TRIG ATP III CLASSIF ICATIONTRIG less than 150 mg/dL NormalTRIG 150-199 mg/dL Borderline highTRIG 200-500 mg/dL High TRIG greater than 500 mg/dL Very highStandard traceable to the Center for Disease Conrtrol and Prevention (CDC) test method. US OB 14+ WEEKS ANATOMY SCAN on 03-15-2025 US OB 14+ WEEKS ANATOMY SCAN EXAM: US OB 14+ WEEKS ANATOMY SCAN HISTORY: anatomy. COMPARISON: Ob ultrasound 12/21/2024. TECHNIQUE: Two-dimensional transabdominal grayscale ultrasound imaging of the pelvis was performed. FINDINGS: Gestation: Single Presentation: Variable Cardiac Activity: 149 beats per minute Placental Location: Anterior with no sonographic abnormalities identified. Distance from Placental Tip to Cervix: 6.1 cm Cervical Length: 4.7 cm Amniotic Fluid: Appears adequate MEASUREMENTS: BPD: 5.1 cm EGA: 21 weeks 3 days HC: 19.0 cm EGA: 21 weeks 2 days AC: 16.5 cm EGA: 21 weeks 4 days FL: 3.6 cm EGA: 21 weeks 3 days HC/AC Ratio: 1.15 The gestational age by today's ultrasound is 21 weeks 3 days (+/- 11 days gestation). Estimated Weight: 426 grams, +/- 64 grams ( 0 lb 15 oz). Weight Percentile for gestational age: 84 % ANATOMY C-Spine: Unremarkable T-Spine: Unremarkable L-Spine: Unremarkable Sacrum: Unremarkable Four Chamber Heart: Unremarkable LVOT: Unremarkable RVOT: Unremarkable Stomach: Unremarkable Kidneys: Unremarkable Bladder: Unremarkable Diaphragm: Unremarkable Cord insertion: Unremarkable Cord vessels: Three Lateral Ventricles: Unremarkable Cerebellum: Unremarkable Cisterna Magna: Unremarkable Posterior Fossa: Unremarkable Right Femur: Unremarkable Left Femur: Unremarkable Right Tib/Fib: Unremarkable Left Tib/Fib: Unremarkable Right Rad/Ulnar: Unremarkable Left Rad/Ulnar: Unremarkable Right Humerus: Unremarkable Left Humerus: Unremarkable Nose/Lips: Unremarkable Profile: Unremarkable Orbits: Unremarkable IMPRESSION: 1. Single, live intrauterine gestation 20 weeks, 5 days by LMP. Today's ultrasound measurements correlate with a gestational age of 21 weeks 3 days. Estimated weight is 426 grams, +/- 64 grams ( 0 lb 15 oz) which correlates to 84 %. RENITA is 07/23/2025. 2. Unremarkable ultrasound of the anatomy. Interpreted by: Electronically signed by KOJO ESPINOSA II, MD, PHD at 16-Mar-2025 11:50:11 AM [facility] Normal Not Available Comment on above: Order Comment: US OB ANATOMY SINGLE W US OB CERVICAL LENGTH Estimated Date of Delivery: 07/28/25 Gestational Age as of 02/15/2025: 16w5d Urinalysis macro (dipstick) panel (U)on 03-15-2025 Bilirubin, UA Negative Negative - 4(70) +++ mg/dL [facility] Blood, UA Negative Negative - 50 Tavon/mcL [facility] Clarity, UA Clear [facility] Color, UA Yellow [facility] Glucose, UA Negative Negative - 2000(110) ++++ mg/dL [facility] Interpretation and review of laboratory results Normal [facility] Ketones, UA Negative Negative - 160(16) ++++ mg/dL [facility] Leukocytes, UA Negative Negative - 500+++ Bertha/mcL [facility] Nitrite, UA Negative Negative - Positive [facility] pH, UA 7 5 - 9 [facility] Protein, UA Negative Negative - 1999(20) ++++ mg/dL [facility] Spec Grav, UA 1.015 1 - 1.03 [facility] Urobilinogen, UA 0.2 0.2 - 12 mg/dL [facility] Basophils Auto (Bld) [#/Vol] Ordered By: Yasmani Abdullahi on 03-14-2025 Basophils (Bld) [#/Vol] Automated basophil count 0.0-0.2 [facility] Basophils/100 WBC Auto (Bld) Ordered By: Yasmani Abdullahi on 03-14-2025 Basophils/100 WBC (Bld) Automated basophil % . [facility] CBC W Auto Differential pane l (Bld)on 03-14-2025 Basophils (Bld) [#/Vol] 0 10*3/uL 0.0 - 0.2 10*3/uL [facility] Basophils/100 WBC Manual cnt (Syn fld) 0.3 % . [facility] Eosinophils (Bld) [#/Vol] 0.1 10*3/uL 0.0 - 0.45 10*3/uL [facility] Eosinophils/100 WBC Manual cnt (Syn fld) 1 % . [facility] Erythrocyte distribution width (RBC) [Ratio] 13.5 % 11.9 - 15.3 % [facility] Hematocrit (Bld) [Volume fraction] 35.8 % 34.0 - 46.4 % [facility] Hemoglobin (Bld) [Mass/Vol] 12.6 g/dL 11.8 - 15.4 g/dL [facility] Interpretation and review of laboratory results Abnormal [facility] Lymphocytes (Bld) [#/Vol] 1.8 10*3/uL 1.00 - 4.8 10*3/uL [facility] Lymphocytes/100 WBC Manual cnt (Syn fld) 19.9 % . [facility] MCH (RBC) [Entitic mass] 29.2 pg 24.7 - 34.3 pg [facility] MCHC (RBC) [Mass/Vol] 35.1 g/dL High 32.0 - 35.0 g/dL [facility] MCV (RBC) [Entitic vol] 83.3 fL 80 - 100 fL [facility] Monocytes (Bld) [#/Vol] 0.7 10*3/uL 0.0 - 0.8 10*3/uL [facility] Monocytes+Macrophages/ 100 WBC Manual cnt (Syn fld) 8.2 % . [facility] Neutrophils (Bld) [#/Vol] 6.4 10*3/uL 1.8 - 7.7 10*3/uL [facility] Neutrophils/100 WBC Manual cnt (Syn fld) 70.6 % . [facility] NRBC 0.1 /100{WBC} 0 - 0.5 /100{WBC} [facility] Platelet mean volume (Bld) [Entitic vol] 9 fL 6.3 - 10.7 fL [facility] Platelets (Bld) [#/Vol] 235 10*3/uL 150 - 450 10*3/uL [facility] RBC LM.HPF (Urine sed) [#/Area] 4.3 10*6/uL 3.60 - 5.00 10*6/uL [facility] WBC (Bld) [#/Vol] 9.1 10*3/uL 3.8 - 11.6 10*3/uL [facility] WBC LM.HPF (Urine sed) [#/Area] 9.1 10*3/uL 3.8 - 11.6 10*3/uL [facility] Complete Blood Count Auto Di ffOrdered By: Yasmani Abdullahi on 03-14-2025 Basophils (Bld) [#/Vol] 0.0 10*3/uL 0.0-0.2 [facility] Comment on above: Result Comment: PERF ORMED BY: [facility] [address] [place] [address] PATHOLOGIST TEST CAR DRIVER JESS VARGAS M.D. Performed By: #### C BC ####[place] [id number] [address] Basophils/100 WBC (Bld) 0.3 % . [facility] Comment on above: Performed By: #### C BC ####[place] [id number] [address] Eosinophils (Bld) [#/Vol] 0.1 10*3/uL 0.0-0.45 [facility] Comment on above: Performed By: #### C BC ####[address] Eosinophils/100 WBC (Bld) 1.0 % . [facility] Comment on above: Performed By: #### C BC ####[address] Erythrocyte distribution width (RBC) [Ratio] 13.5 % 11.9-15.3 [facility] Comment on above: Performed By: #### C BC ####[address] Hematocrit (Bld) [Volume fraction] 35.8 % 34.0-46.4 [facility] Comment on above: Performed By: #### C BC ####[address] Hemoglobin (Bld) [Mass/Vol] 12.6 g/dL 11.8-15.4 [facility] Comment on above: Performed By: #### C BC ####[address] Lymphocytes (Bld) [#/Vol] 1.8 10*3/uL 1.00-4.8 [facility] Comment on above: Performed By: #### C BC ####[address] Lymphocytes/100 WBC (Bld) 19.9 % . [facility] Comment on above: Performed By: #### C BC ####[address] MCH (RBC) [Entitic mass] 29.2 pg 24.7-34.3 [facility] Comment on above: Performed By: #### C BC ####[place] [id number] [facility] [[email or web address]] MCV (RBC) [Entitic vol] 83.3 fL 80-100 [facility] Comment on above: Performed By: #### C BC ####[address] Monocytes (Bld) [#/Vol] 0.7 10*3/uL 0.0-0.8 [facility] Comment on above: Performed By: #### C BC ####[place] [id number] [facility] [[email or web address]] Monocytes/100 WBC (Bld) 8.2 % . [facility] Comment on above: Performed By: #### C BC ####[place] [id number] [facility] [[email or web address]] Neutrophils (Bld) [#/Vol] 6.4 10*3/uL 1.8-7.7 [facility] Comment on above: Performed By: #### C BC ####[place] [id number] [facility] [[email or web address]] Neutrophils/100 WBC (Bld) 70.6 % . [facility] Comment on above: Performed By: #### C BC ####[place] [id number] [facility] [[email or web address]] Platelet mean volume (Bld) [Entitic vol] 9.0 fL 6.3-10.7 [facility] Comment on above: Performed By: #### C BC ####[place] [id number] [facility] [[email or web address]] Platelets (Bld) [#/Vol] 235 10*3/uL 150-450 [facility] Comment on above: Performed By: #### C BC ####[place] [id number] [facility] [[email or web address]] RBC (Bld) [#/Vol] 4.30 10*6/uL 3.60-5.00 [facility] Comment on above: Performed By: #### C BC ####[place] [id number] [facility] [[email or web address]] WBC (Bld) [#/Vol] 9.1 10*3/uL 3.8-11.6 [facility] Comment on above: Performed By: #### C BC ####[place] [id number] [facility] [[email or web address]] Complete Blood Count Auto Di ffon 03-14-2025 Mean Corpuscular HGB Conc 35.1 g/dL High 32.0-35.0 [facility] Comment on above: Performed By: #### C BC ####[facility] [id number] NRBC% 0.1 /100{WBC} Normal 0-0.5 [facility] Comment on above: Performed By: #### C BC ####[facility] [id number] [place] [id number] [facility] [[email or web address]] Eosinophils Auto (Bld) [#/Vo l]Ordered By: Yasmani Abdullahi on 03-14-2025 Eosinophils (Bld) [#/Vol] Automated eosinophil count 0.0-0.45 [facility] Eosinophils/100 WBC Auto (Bl d)Ordered By: Yasmani Abdullahi on 03-14-2025 Eosinophils/100 WBC (Bld) Automated eosinophil % . [facility] Erythrocyte distribution wid th Auto (RBC) [Ratio]Ordered By: Yasmani Abdullahi on 03-14-2025 Erythrocyte distribution width (RBC) [Ratio] Erythrocyte distribution width [Ratio] by Automated count 11.9-15.3 [facility] Hematocrit Auto (Bld) [Volum e fraction]Ordered By: Yasmani Abdullahi on 03-14-2025 Hematocrit (Bld) [Volume fraction] Hematocrit [Volume Fraction] of Blood by Automated count 34.0-46.4 [facility] Hemoglobin [Mass/volume] in BloodOrdered By: Yasmani Abdullahi on 03-14-2025 Hemoglobin (Bld) [Mass/Vol] Hemoglobin [Mass/volume] in Blood 11.8-15.4 [facility] Leukocytes [#/volume] correc randolph for nucleated erythrocytes in Blood by Automated counOrdered By: Yasmani Abdullahi on 03-14-2025 WBC corrected for nucl RBC Auto (Bld) [#/Vol] Leukocytes [#/volume] corrected for nucleated erythrocytes in Blood by Automated coun 3.8-11.6 [facility] WBC corrected for nucl RBC Auto (Bld) [#/Vol] 9.1 10*3/uL 3.8-11.6 [facility] Lymphocytes Auto (Bld) [#/Vo l]Ordered By: Yasmani Abdullahi on 03-14-2025 Lymphocytes (Bld) [#/Vol] Lymphocytes [#/volume] in Blood by Automated count 1.00-4.8 [facility] Lymphocytes/100 WBC Auto (Bl d)Ordered By: Yasmani Abdullahi on 03-14-2025 Lymphocytes/100 WBC (Bld) Lymphocytes/100 leukocytes in Blood by Automated count . [facility] MCH Auto (RBC) [Entitic mass ]Ordered By: Yasmani Abdullahi on 03-14-2025 MCH (RBC) [Entitic mass] MCH [Entitic mass] by Automated count 24.7-34.3 [facility] MCHC Auto (RBC) [Mass/Vol]Or dered By: Yasmani Abdullahi on 03-14-2025 MCHC (RBC) [Mass/Vol] MCHC [Mass/volume] by Automated count High 32.0-35.0 [facility] MCHC (RBC) [Mass/Vol] 35.1 g/dL High 32.0-35.0 [facility] MCV Auto (RBC) [Entitic vol] Ordered By: Yasmani Abdullahi on 03-14-2025 MCV (RBC) [Entitic vol] MCV [Entitic volume] by Automated count 80-100 [facility] Monocytes Auto (Bld) [#/Vol] Ordered By: Yasmani Abdullahi on 03-14-2025 Monocytes (Bld) [#/Vol] Automated blood monocyte count 0.0-0.8 [facility] Monocytes/100 WBC Auto (Bld) Ordered By: Yasmani Abdullahi on 03-14-2025 Monocytes/100 WBC (Bld) Automated monocyte % . [facility] Neutrophils Auto (Bld) [#/Vo l]Ordered By: Yasmani Abdullahi on 03-14-2025 Neutrophils (Bld) [#/Vol] Neutrophils [#/volume] in Blood by Automated count 1.8-7.7 [facility] Neutrophils/100 WBC Auto (Bl d)Ordered By: Yasmani Abdullahi on 03-14-2025 Neutrophils/100 WBC (Bld) Automated neutrophil % . [facility] Nucleated erythrocytes [Pres ence] in Blood by Automated countOrdered By: Yasmani Abdullahi on 03-14-2025 Nucleated RBC Auto Ql (Bld) Nucleated erythrocytes [Presence] in Blood by Automated count 0-0.5 [facility] Nucleated RBC Auto Ql (Bld) 0.1 /100{WBC} 0-0.5 [facility] Platelet mean volume Auto (B ld) [Entitic vol]Ordered By: Yasmani Abdullahi on 03-14-2025 Platelet mean volume (Bld) [Entitic vol] Platelet mean volume [Entitic volume] in Blood by Automated count 6.3-10.7 [facility] Platelets Auto (Bld) [#/Vol] Ordered By: Yasmani Abdullahi on 03-14-2025 Platelets (Bld) [#/Vol] Platelets [#/volume] in Blood by Automated count 150-450 [facility] RBC Auto (Bld) [#/Vol]Ordere d By: Yasmani Abdullahi on 03-14-2025 RBC (Bld) [#/Vol] Erythrocytes [#/volu me] in Blood by Automated count 3.60-5.00 [facility] WBC Auto (Bld) [#/Vol]Ordere d By: Yasmani Abdullahi on 03-14-2025 WBC (Bld) [#/Vol] Leukocytes [#/volume ] in Blood by Automated count 3.8-11.6 [facility] IGP,APTIMA HPV,AGE GDLNon AGE GDLN ACOG TESTING Note . [facility] Comment on above: TESTS RESULT FLAG UN ITS REF RANGE LAB Clinician Provided Cytology Information Source.............[employer] Other.............. No. of containers..01 ThinPrep Vial Age Algo ACOG Gemma... 30-65 01 FLAG LEGEND: L-Low Normal,H-High Normal,LL-Alert Low,HH-Alert High <-Panic Low,>-Panic High,A-Abnormal,AA-Critical Abnormal Performed at: 01 =[address] [address] Azalea Quezada MD, HPV APTIMA Negative Negative [facility] Comment on above: This nucleic acid am plification test detects fourteen high- risk HPV types (16,18,31,33,35,39,45,51,52,56,58,59,66,68) without differentiation. Performed at: =[address] [id number] [employer] Instructor: Azalea Quezada MD, Phone: [phone] Performed at: [address] [id number] [employer] Instructor: Azalea Quezada MD, Phone: [phone] IGP, APTIMA HPV, RFX 16/18,45 Note . [facility] Comment on above: TESTS RESULT FLAG UN ITS REF RANGE LAB DIAGNOSIS: 02 NEGATIVE FOR INTRAEPITHELIAL LESION OR MALIGNANCY. Specimen adequacy: 02 Satisfactory for evaluation. No endocervical component is identified. An endocervical component is not commonly seen in the patient. Performed by: Darrell Martin, Allergy And Immunology Chief ([facility]) . 02 Note: Note 02 The Pap smear is a screening test designed to aid in the detection of premalignant and malignant conditions of the uterine cervix. It is not a diagnostic procedure and should not be used as the sole means of detecting cervical cancer. Both false-positive and false-negative reports do occur. Test Methodology: Note 02 This liquid based ThinPrep(R) pap test was screened with the use of an image guided system. HPV Genotype Reflex Note 02 Criteria not met, HPV Genotype not performed. FLAG LEGEND: L-Low Normal,H-High Normal,LL-Alert Low,HH-Alert High <-Panic Low,>-Panic High,A-Abnormal,AA-Critical Abnormal Performed at: [address] [address] Azalea Quezada MD, SPATULA-ALONE [employer] CLINISYNC [facility] RECURRENT VAGINITIS (HTRX)on 02-16-2025 ATOPOBIUM VAGINAE 0 [facility] ATOPOBIUM VAGINAE Not detected [facility] BVAB 2,3 (BACTERIAL VAGINOSIS ASSOCIATED BACTERIA 2, 3); MOBILUNCUS SPP 0 [facility] BVAB 2,3 (BACTERIAL VAGINOSIS ASSOCIATED BACTERIA 2, 3); MOBILUNCUS SPP Not detected [facility] JOHNNIE ALBICANS, PARAPSILOSIS, TROPICALIS 0 [facility] Healthcare JOHNNIE ALBICANS, PARAPSILOSIS, TROPICALIS Not detected [facility] JOHNNIE GLABRATA 0 [facility] Healthcare JOHNNIE GLABRATA Not detected [facility] JOHNNIE KRUSEI 0 [facility] Healthcare JOHNNIE KRUSEI Not detected [facility] CHLAMYDIA TRACHOMATIS 0 [facility] CHLAMYDIA TRACHOMATIS Not detected [facility] GARDNERELLA VAGINALIS 0 [facility] GARDNERELLA VAGINALIS Not detected [facility] MEGASPHAERA (TYPES 1, 2) 0 [facility] MEGASPHAERA (TYPES 1, 2) Not detected [facility] MYCOPLASMA GENITALIUM 0 [facility] MYCOPLASMA GENITALIUM Not detected [facility] NEISSERIA GONORRHOEAE 0 [facility] NEISSERIA GONORRHOEAE Not detected [facility] TRICHOMONAS VAGINALIS 0 [facility] TRICHOMONAS VAGINALIS Not detected [facility] Human papilloma virus 16+18+ 31+33+35+39+45+51+52+56+58+59+66+68 DNA [Presence] in Cherise 02-15-2025 HPV 16+18+31+33+35+39+45+5 1+52+56+58+59+66+68 DNA Probe+sig amp Ql (Cvx) Human papilloma virus 16+18+31+33+35+39+45+51+5 2+56+58+59+66+68 DNA [Presence] in Cer Negative [facility] Comment on above: This nucleic acid am plification test detects fourteen high- risk HPV types (16,18,31,33,35,39,45,51,52,56,58,59,66,68)without differentiation.Performed at: = - [employer] [address] [id number] Director: Azalea Quezada MD, Phone: [phone] at: [facility] [employer] [id number] Director: Azalea Quezada MD, Phone: [phone] No Panel Informationon 02-15 HPV High Risk Other Comment Note . [facility] Comment on above: TESTS RESULT FLAG UN ITS REF RANGE LAB DIAGNOSIS: 02 NEGATIVE FOR INTRAEPITHELIAL LESION OR MALIGNANCY.Specimen adequacy: 02 Satisfactory for evaluation. No endocervical component is identified. An endocervical component is not commonly seen in the patient.Performed by: 02 Oli Martin Allergy And Immunology Chief ([facility]). 02Note: Note 02 The Pap smear is a screening test designed to aid in the detection of premalignant and malignant conditions of the uterine cervix. It is not a diagnostic procedure and should not be used as the sole means of detecting cervical cancer. Both false-positive and false-negative reports do occur.Test Methodology: Note 02 This liquid based ThinPrep(R) pap test was screened with the use of an image guided system.HPV Genotype Reflex Note 02 Criteria not met, HPV Genotype not performed. ------- FLAG LEGEND: L-Low Normal,H-High Normal,LL-Alert Low,HH-Alert High <-Panic Low,>-Panic High,A-Abnormal,AA-Critical Abnormal -----Performed at:[address] [address] Azalea Quezada MD, Reference Lab Test Patient Age Note . [facility] Comment on above: TESTS RESULT FLAG UN ITS REF RANGE LAB Clinician Provided Cytology Information Source.............[employer] Other.............. No. of containers..01 ThinPrep VialAge Belindao SANDEEOG Gemma... 29 FLAG LEGEND: L-Low Normal,H-High Normal,LL-Alert Low,HH-Alert High <-Panic Low,>-Panic High,A-Abnormal,AA-Critical Abnormal -----Performed at:01 [facility] [address] [place] [address] Azalea Quzeada MD, Urinalysis macro (dipstick) panel (U)on 02-15-2025 Bilirubin, UA Negative Negative - 4(70) +++ mg/dL [facility] Blood, UA Negative Negative - 50 Tavon/mcL [facility] Clarity, UA Clear [facility] Color, UA Yellow [facility] Glucose, UA Positive Negative - 1999(110) ++++ mg/dL [facility] Comment on above: 100 Interpretation and review of laboratory results Abnormal [facility] Ketones, UA Negative Negative - 160(16) ++++ mg/dL [facility] Leukocytes, UA Negative Negative - 500+++ Bertha/mcL [facility] Nitrite, UA Negative Negative - Positive [facility] pH, UA 5.5 5 - 9 [facility] Protein, UA Negative Negative - 1999(20) ++++ mg/dL [facility] Spec Grav, UA 1.005 1 - 1.03 [facility] Urobilinogen, UA 0.2 0.2 - 12 mg/dL [facility] Urinalysis macro (dipstick) panel (U)on 01-18-2025 Bilirubin, UA Negative Negative - 4(70) +++ mg/dL [facility] Blood, UA Negative Negative - 50 Tavon/mcL [facility] Clarity, UA Clear [facility] Color, UA Yellow [facility] Glucose, UA Negative Negative - 1999(110) ++++ mg/dL [facility] Interpretation and review of laboratory results Abnormal [facility] Ketones, UA Negative Negative - 160(16) ++++ mg/dL [facility] Leukocytes, UA Negative Negative - 500+++ Bertha/mcL [facility] Nitrite, UA Negative Negative - Positive [facility] pH, UA 6 5 - 9 [facility] Protein, UA Negative Negative - 1999(20) ++++ mg/dL [facility] Spec Grav, UA 1.03 1 - 1.03 [facility] Urobilinogen, UA 0.2 0.2 - 12 mg/dL [facility] A1C with Estimated Average G alex 12-27-2024 Glucose [Mass/Vol] 103 mg/dL Normal [facility] Comment on above: Order Comment: NONFA STING.JKW Result Comment: PERF ORMED BY: [facility] [address] [place] [address] PATHOLOGIST TEST CAR DRIVER LEÓN GARCIA M.D. Performed By: #### H CV RX PCR, RPR W RFX, RUBELLA IGG, HBSAG, HIV SCREEN ####[facility] ,#### CUU, A1C WT eA, CBC, URDS ####[address] HbA1c (Bld) [Mass fraction] 5.2 % Normal 4.3-5.6 [facility] Comment on above: Order Comment: NONFA STING.JKW Result Comment: Incr eased risk for diabetes: 5.7 - 6.4 diabetes: >6.4 glycemic control for adults with diabetes: <7.0 Performed By: #### H CV RX PCR, RPR W RFX, RUBELLA IGG, HBSAG, HIV SCREEN ####[facility] ,#### CUU, A1C WTH eA, CBC, URDS ####[address] Amphetamine Screen Ql (U)Ord ered By: Yasmani Abdullahi on 12-27-2024 Amphetamines Ql (U) Amphetamines screen Negativ e [facility] Barbiturates [Presence] in U rine by Screen methodOrdered By: Yasmani Abdullahi on 12-27-2024 Barbiturates Screen Ql (U) Barbiturates [Presence] in Urine by Screen method Negative [facility] Basophils Auto (Bld) [#/Vol] Ordered By: Yasmani Abdullahi on 12-27-2024 Basophils (Bld) [#/Vol] Automated basophil count 0.0-0.2 [facility] Basophils/100 WBC Auto (Bld) Ordered By: Yasmani Abdullahi on 12-27-2024 Basophils/100 WBC (Bld) Automated basophil % . [facility] Benzodiazepines Screen Ql (U )Ordered By: Yasmani Abdullahi on 12-27-2024 Benzodiazepines Ql (U) Benzodiazepines [Presence] in Urine by Screen method Negative [facility] Benzoylecgonine [Presence] i n Urine by Screen methodOrdered By: Yasmani Abdullahi on 12-27-2024 Benzoylecgonine Screen Ql (U) Benzoylecgonine [Presence] in Urine by Screen method Negative [facility] Blood estimated average gluc ose determination by estimation from glycated hemoglobinOrdered By: Yasmani Abdullahi on 12-27-2024 Average glucose Estimated from glycated hemoglobin (Bld) [Mass/Vol] Glucose mean value [Mass/volume] in Blood Estimated from glycated hemoglobin [facility] Cannabinoids [Presence] in U rine by Screen methodOrdered By: Yasmani Abdullahi on 12-27-2024 Cannabinoids Screen Ql (U) Cannabinoids [Presence] in Urine by Screen method Negative [facility] Comment on above: These are unconfirme d results and should not be used for legal purposes. Drug Cut-Off Concentration: AMPH 1000 ng/mL ABELARDO 200 ng/mL JESSE 200 ng/mL COCM 300 ng/mL OP 300 ng/mL PCP 25 ng/mL THC 20 ng/mL Complete Blood Count Auto Di ffon 12-27-2024 Basophils (Bld) [#/Vol] 0.0 10*3/uL Normal 0.0-0.2 [facility] Comment on above: Order Comment: NONFA STING.JKW Result Comment: PERF ORMED BY: [facility] [address] [place] [address] PATHOLOGIST TEST CAR DRIVER LEÓN GARCIA M.D. Performed By: #### H CV RX PCR, RPR W RFX, RUBELLA IGG, HBSAG, HIV SCREEN #### [facility] , #### CUU, A1C WTH eA, CBC, URDS #### [address] Basophils/100 WBC (Bld) 0.6 % Normal . [facility] Comment on above: Order Comment: NONFA STING.JKW Performed By: #### H CV RX PCR, RPR W RFX, RUBELLA IGG, HBSAG, HIV SCREEN #### [facility] , #### CUU, A1C WTH eA, CBC, URDS #### [address] Eosinophils (Bld) [#/Vol] 0.1 10*3/uL Normal 0.0-0.45 [facility] Comment on above: Order Comment: NONFA STING.JKW Performed By: #### H CV RX PCR, RPR W RFX, RUBELLA IGG, HBSAG, HIV SCREEN #### [facility] , #### CUU, A1C WTH eA, CBC, URDS #### [address] Eosinophils/100 WBC (Bld) 1.7 % Normal . [facility] Comment on above: Order Comment: NONFA STING.JKW Performed By: #### H CV RX PCR, RPR W RFX, RUBELLA IGG, HBSAG, HIV SCREEN #### [facility] , #### CUU, A1C WTH eA, CBC, URDS #### [address] Erythrocyte distribution width (RBC) [Ratio] 13.7 % Normal 11.9-15.3 [facility] Comment on above: Order Comment: NONFA STING.JKW Performed By: #### H CV RX PCR, RPR W RFX, RUBELLA IGG, HBSAG, HIV SCREEN #### [facility] , #### CUU, A1C WTH eA, CBC, URDS #### [address] Hematocrit (Bld) [Volume fraction] 38.2 % Normal 34.0-46.4 [facility] Comment on above: Order Comment: NONFA STING.JKW Performed By: #### H CV RX PCR, RPR W RFX, RUBELLA IGG, HBSAG, HIV SCREEN #### [facility] , #### CUU, A1C WTH eA, CBC, URDS #### [address] Hemoglobin (Bld) [Mass/Vol] 13.0 g/dL Normal 11.8-15.4 [facility] Comment on above: Order Comment: NONFA STING.JKW Performed By: #### H CV RX PCR, RPR W RFX, RUBELLA IGG, HBSAG, HIV SCREEN #### [facility] , #### CUU, A1C WTH eA, CBC, URDS #### [address] Lymphocytes (Bld) [#/Vol] 1.2 10*3/uL Normal 1.00-4.8 [facility] Comment on above: Order Comment: NONFA STING.JKW Performed By: #### H CV RX PCR, RPR W RFX, RUBELLA IGG, HBSAG, HIV SCREEN #### [facility] , #### CUU, A1C WTH eA, CBC, URDS #### [address] Lymphocytes/100 WBC (Bld) 19.5 % Normal . [facility] Comment on above: Order Comment: NONFA STING.JKW Performed By: #### H CV RX PCR, RPR W RFX, RUBELLA IGG, HBSAG, HIV SCREEN #### [facility] , #### CUU, A1C WTH eA, CBC, URDS #### [address] MCH (RBC) [Entitic mass] 27.8 pg Normal 24.7-34.3 [facility] Comment on above: Order Comment: NONFA STING.JKW Performed By: #### H CV RX PCR, RPR W RFX, RUBELLA IGG, HBSAG, HIV SCREEN #### [facility] , #### CUU, A1C WTH eA, CBC, URDS #### [address] MCV (RBC) [Entitic vol] 81.5 fL Normal 80-100 [facility] Comment on above: Order Comment: NONFA STING.JKW Performed By: #### H CV RX PCR, RPR W RFX, RUBELLA IGG, HBSAG, HIV SCREEN #### [facility] , #### CUU, A1C WTH eA, CBC, URDS #### [address] Mean Corpuscular HGB Conc 34.1 g/dL Normal 32.0-35.0 [facility] Comment on above: Order Comment: NONFA STING.JKW Performed By: #### H CV RX PCR, RPR W RFX, RUBELLA IGG, HBSAG, HIV SCREEN #### [facility] , #### CUU, A1C WTH eA, CBC, URDS #### [address] Monocytes (Bld) [#/Vol] 0.4 10*3/uL Normal 0.0-0.8 [facility] Comment on above: Order Comment: NONFA STING.JKW Performed By: #### H CV RX PCR, RPR W RFX, RUBELLA IGG, HBSAG, HIV SCREEN #### [facility] , #### CUU, A1C WTH eA, CBC, URDS #### [address] Monocytes/100 WBC (Bld) 6.7 % Normal . [facility] Comment on above: Order Comment: NONFA STING.JKW Performed By: #### H CV RX PCR, RPR W RFX, RUBELLA IGG, HBSAG, HIV SCREEN #### [facility] , #### CUU, A1C WTH eA, CBC, URDS #### [address] Neutrophils (Bld) [#/Vol] 4.5 10*3/uL Normal 1.8-7.7 [facility] Comment on above: Order Comment: NONFA STING.JKW Performed By: #### H CV RX PCR, RPR W RFX, RUBELLA IGG, HBSAG, HIV SCREEN #### [facility] , #### CUU, A1C WTH eA, CBC, URDS #### [address] Neutrophils/100 WBC (Bld) 71.5 % Normal . [facility] Comment on above: Order Comment: NONFA STING.JKW Performed By: #### H CV RX PCR, RPR W RFX, RUBELLA IGG, HBSAG, HIV SCREEN #### [facility] , #### CUU, A1C WTH eA, CBC, URDS #### [address] NRBC% 0.0 /100{WBC} Normal 0-0.5 [facility] Comment on above: Order Comment: NONFA STING.JKW Performed By: #### H CV RX PCR, RPR W RFX, RUBELLA IGG, HBSAG, HIV SCREEN #### [facility] , #### CUU, A1C WTH eA, CBC, URDS #### [address] Platelet mean volume (Bld) [Entitic vol] 8.8 fL Normal 6.3-10.7 [facility] Comment on above: Order Comment: NONFA STING.JKW Performed By: #### H CV RX PCR, RPR W RFX, RUBELLA IGG, HBSAG, HIV SCREEN #### [facility] , #### CUU, A1C WTH eA, CBC, URDS #### [place] [address] [place] Platelets (Bld) [#/Vol] 225 10*3/uL Normal 150-450 [facility] Comment on above: Order Comment: NONFA STING.JKW Performed By: #### H CV RX PCR, RPR W RFX, RUBELLA IGG, HBSAG, HIV SCREEN #### [facility] , #### CUU, A1C WTH eA, CBC, URDS #### [facility] [address] [place] [address] [place] RBC (Bld) [#/Vol] 4.69 10*6/uL Normal 3.60-5.00 [facility] Comment on above: Order Comment: NONFA STING.JKW Performed By: #### H CV RX PCR, RPR W RFX, RUBELLA IGG, HBSAG, HIV SCREEN #### [facility] , #### CUU, A1C WTH eA, CBC, URDS #### [facility] [address] [place] [id number] [place] WBC (Bld) [#/Vol] 6.4 10*3/uL Normal 3.8-11.6 [facility] Comment on above: Order Comment: NONFA STING.JKW Performed By: #### H CV RX PCR, RPR W RFX, RUBELLA IGG, HBSAG, HIV SCREEN #### [facility] , #### CUU, A1C WTH eA, CBC, URDS #### [facility] [address] [place] [address] [place] Drug Screen,Urineon 12-28-19 25 Amphetamine Screen,Urine Negative Normal Negative [facility] Comment on above: Order Comment: NONFA STING.JKW Performed By: #### H CV RX PCR, RPR W RFX, RUBELLA IGG, HBSAG, HIV SCREEN ####[facility] ,#### CUU, A1C WTH eA, CBC, URDS ####[facility] [id number] [place] [id number] [facility] [[email or web address]] Barbiturate Screen,Urine Negative Normal Negative [facility] Comment on above: Order Comment: NONFA STING.JKW Performed By: #### H CV RX PCR, RPR W RFX, RUBELLA IGG, HBSAG, HIV SCREEN ####[facility] ,#### CUU, A1C WTH eA, CBC, URDS ####[place] [id number] [address] Benzodiazepines Screen,Urine Negative Normal Negative [facility] Comment on above: Order Comment: NONFA STING.JKW Performed By: #### H CV RX PCR, RPR W RFX, RUBELLA IGG, HBSAG, HIV SCREEN ####[facility] ,#### CUU, A1C WTH eA, CBC, URDS ####[address] Cannabinoid Screen,Urine Negative Normal Negative [facility] Comment on above: Order Comment: NONFA STING.JKW Result Comment: Thes e are unconfirmed results and should not be used for legal purposes. Drug Cut-Off Concentration: AMPH 1000 ng/mL ABELARDO 200 ng/mL JESSE 200 ng/mL COCM 300 ng/mL OP 300 ng/mL PCP 25 ng/mL THC 20 ng/mL PERFORMED BY: [facility] [address] [place] [address] PATHOLOGIST TEST CAR DRIVER LEÓN GARCIA M.D. Performed By: #### H CV RX PCR, RPR W RFX, RUBELLA IGG, HBSAG, HIV SCREEN ####[facility] ,#### CUU, A1C WTH eA, CBC, URDS ####[address] Cocaine Screen,Urine Negative Normal Negative [facility] Comment on above: Order Comment: NONFA STING.JKW Performed By: #### H CV RX PCR, RPR W RFX, RUBELLA IGG, HBSAG, HIV SCREEN ####[facility] ,#### CUU, A1C WTH eA, CBC, URDS ####[address] Opiate Screen,Urine Negative Normal Negative [facility] Comment on above: Order Comment: NONFA STING.JKW Performed By: #### H CV RX PCR, RPR W RFX, RUBELLA IGG, HBSAG, HIV SCREEN ####[facility] ,#### CUU, A1C WTH eA, CBC, URDS ####[facility] [place] [id number] [facility] [[email or web address]] Phencyclidine Screen,Urine Negative Normal Negative [facility] Comment on above: Order Comment: NONFA STING.JKW Performed By: #### H CV RX PCR, RPR W RFX, RUBELLA IGG, HBSAG, HIV SCREEN ####[facility] ,#### CUU, A1C WTH eA, CBC, URDS ####[place] [address] [place] [id number] [facility] [[email or web address]] Eosinophils Auto (Bld) [#/Vo l]Ordered By: Yasmani Abdullahi on 12-27-2024 Eosinophils (Bld) [#/Vol] Automated eosinophil count 0.0-0.45 [facility] Eosinophils/100 WBC Auto (Bl d)Ordered By: Yasmani Abdullahi on 12-27-2024 Eosinophils/100 WBC (Bld) Automated eosinophil % . [facility] Erythrocyte distribution wid th Auto (RBC) [Ratio]Ordered By: Yasmani Abdullahi on 12-27-2024 Erythrocyte distribution width (RBC) [Ratio] Erythrocyte distribution width [Ratio] by Automated count 11.9-15.3 [facility] HIV 1/O/2 Antigen/Antibodyon 12-27-2024 HIV Screen 4th Generation Non-Reactive Normal Non Reactive [facility] Comment on above: Order Comment: NONFA STING.JKW Result Comment: HIV- 1/HIV-2 antibodies and HIV-1 p24 antigen were NOT detected. There is no laboratory evidence of HIV infection. HIV Negative Performed at: - [facility] [id number] [employer]ence [employer] Instructor: Garfield Fay PhD, Phone: [phone] Performed By: #### H CV RX PCR, RPR W RFX, RUBELLA IGG, HBSAG, HIV SCREEN ####[facility] ,#### CUU, A1C WTH eA, CBC, URDS ####[facility] [id number] HIV antibody and antigen nails elOrdered By: Yasmani Abdullahi on 12-27-2024 HIV 1+2 Ab+HIV1 p24 Ag IA Ql HIV 1 and HIV-2 antibody assay with HIV-1 p24 antigen detection Non Reactive [facility] Comment on above: HIV-1/HIV-2 antibodi es and HIV-1 p24 antigen were NOTdetected. There is no laboratory evidence of HIV infection.HIV NegativePerformed at: - [facility] [id number] Director: Garfield Fay PhD, Phone: [phone] Hematocrit Auto (Bld) [Volum e fraction]Ordered By: Yasmani Abdullahi on 12-27-2024 Hematocrit (Bld) [Volume fraction] Hematocrit [Volume Fraction] of Blood by Automated count 34.0-46.4 [facility] Hemoglobin A1c/Hemoglobin.to dylan in BloodOrdered By: Yasmani Abdullahi on 12-27-2024 HbA1c (Bld) [Mass fraction] Hemoglobin A1c percentage 4.3-5.6 [facility] Comment on above: Increased risk for d iabetes: 5.7 - 6.4diabetes: >6.4glycemic control for adults with diabetes: <7.0 Hemoglobin [Mass/volume] in BloodOrdered By: Yasmani Abdullahi on 12-27-2024 Hemoglobin (Bld) [Mass/Vol] Hemoglobin [Mass/volume] in Blood 11.8-15.4 [facility] Hep C Ab wRfx to Qnt PCRon 0 12-27-2024 Hepatitis C Virus Antibody Non-Reactive Normal Non Reactive [facility] Comment on above: Order Comment: NONFA STING.JKW Performed By: #### H CV RX PCR, RPR W RFX, RUBELLA IGG, HBSAG, HIV SCREEN ####[facility] ,#### CUU, A1C WTH eA, CBC, URDS ####[place] [id number] [address] Interpretation Hepatitis C Comment Normal . [facility] Comment on above: Order Comment: NONFA STING.JKW Result Comment: Not infected with HCV unless early or acute infection is suspected (which may be delayed in an immunocompromised individual), or other evidence exists to indicate HCV infection. Performed By: #### H CV RX PCR, RPR W RFX, RUBELLA IGG, HBSAG, HIV SCREEN ####[facility] ,#### CUU, A1C WTH eA, CBC, URDS ####[place] [id number] [address] Hepatitis B Surface Antigeno n 12-27-2024 HBsAg Screen Negative Normal Negative [facility] Comment on above: Order Comment: NONFA STING.JKW Result Comment: Perf ormed at: - [facility] [address] [id number] [employer]ence [employer] Instructor: Garfield Fay PhD, Phone: [phone] PERFORMED BY: [facility] [address] [place] [address] PATHOLOGIST TEST CAR DRIVER LEÓN GARCIA M.D. Performed By: #### H CV RX PCR, RPR W RFX, RUBELLA IGG, HBSAG, HIV SCREEN ####[facility] ,#### CUU, A1C WTH eA, CBC, URDS ####[address] Hepatitis C virus IgG Ab [Pr esence] in Serum or Plasma by ImmunoassayOrdered By: Yasmani Abdullahi on 12-27-2024 HCV IgG IA Ql Hepatitis C virus Ig G Ab [Presence] in Serum or Plasma by Immunoassay Non Reactive [facility] Leukocytes [#/volume] correc randolph for nucleated erythrocytes in Blood by Automated counOrdered By: Yasmani Abdullahi on 12-27-2024 WBC corrected for nucl RBC Auto (Bld) [#/Vol] Leukocytes [#/volume] corrected for nucleated erythrocytes in Blood by Automated coun 3.8-11.6 [facility] Lymphocytes Auto (Bld) [#/Vo l]Ordered By: Yasmani Abdullahi on 12-27-2024 Lymphocytes (Bld) [#/Vol] Lymphocytes [#/volume] in Blood by Automated count 1.00-4.8 [facility] Lymphocytes/100 WBC Auto (Bl d)Ordered By: Yasmani Abdullahi on 12-27-2024 Lymphocytes/100 WBC (Bld) Lymphocytes/100 leukocytes in Blood by Automated count . [facility] MCH Auto (RBC) [Entitic mass ]Ordered By: Yasmani Abdullahi on 12-27-2024 MCH (RBC) [Entitic mass] MCH [Entitic mass] by Automated count 24.7-34.3 [facility] MCHC Auto (RBC) [Mass/Vol]Or dered By: Yasmani Abdullahi on 12-27-2024 MCHC (RBC) [Mass/Vol] MCHC [Mass/volume] by Automated count 32.0-35.0 [facility] MCV Auto (RBC) [Entitic vol] Ordered By: Yasmani Abdullahi on 12-27-2024 MCV (RBC) [Entitic vol] MCV [Entitic volume] by Automated count 80-100 [facility] Monocytes Auto (Bld) [#/Vol] Ordered By: Yasmani Abdullahi on 12-27-2024 Monocytes (Bld) [#/Vol] Automated blood monocyte count 0.0-0.8 [facility] Monocytes/100 WBC Auto (Bld) Ordered By: Yasmani Abdullahi on 12-27-2024 Monocytes/100 WBC (Bld) Automated monocyte % . [facility] Neutrophils Auto (Bld) [#/Vo l]Ordered By: Yasmani Abdullahi on 12-27-2024 Neutrophils (Bld) [#/Vol] Neutrophils [#/volume] in Blood by Automated count 1.8-7.7 [facility] Neutrophils/100 WBC Auto (Bl d)Ordered By: Yasmani Abdullahi on 12-27-2024 Neutrophils/100 WBC (Bld) Automated neutrophil % . [facility] No Panel InformationOrdered By: Yasmani Abdullahi on 12-27-2024 Hepatitis C Interpretation Comment . [facility] Comment on above: Not infected with HC V unless early or acute infection issuspected (which may be delayed in an immunocompromisedindividual), or other evidence exists to indicate HCVinfection. Nucleated erythrocytes [Pres ence] in Blood by Automated countOrdered By: Yasmani Abdullahi on 12-27-2024 Nucleated RBC Auto Ql (Bld) Nucleated erythrocytes [Presence] in Blood by Automated count 0-0.5 [facility] Opiates [Presence] in Urine by Screen methodOrdered By: Yasmani Abdullahi on 12-27-2024 Opiates Screen Ql (U) Opiates [Presence] in Urine by Screen method Negative [facility] Phencyclidine Screen Ql (U)O rdered By: Yasmani Abdullahi on 12-27-2024 Phencyclidine Ql (U) Phencyclidine [Pres ence] in Urine by Screen method Negative [facility] Platelet mean volume Auto (B ld) [Entitic vol]Ordered By: Yasmain Abdullahi on 12-27-2024 Platelet mean volume (Bld) [Entitic vol] Platelet mean volume [Entitic volume] in Blood by Automated count 6.3-10.7 [facility] Platelets Auto (Bld) [#/Vol] Ordered By: Yasmani Abdullahi on 12-27-2024 Platelets (Bld) [#/Vol] Platelets [#/volume] in Blood by Automated count 150-450 [facility] RBC Auto (Bld) [#/Vol]Ordere d By: Yasmani Abdullahi on 12-27-2024 RBC (Bld) [#/Vol] Erythrocytes [#/volu me] in Blood by Automated count 3.60-5.00 [facility] RPR w/rfx to Quant TP Abson 12-27-2024 RPR, Rfx Quant RPR Non-Reactive Normal Non Reactive [facility] Comment on above: Order Comment: NONFA STING.JKW Result Comment: Perf ormed at: - [facility] [address] [id number] Correspondence [employer] Instructor: Garfield Fay PhD, Phone: [phone] PERFORMED BY: [address] [place] [address] PATHOLOGIST TEST CAR DRIVER LEÓN GARCIA M.D. Performed By: #### H CV RX PCR, RPR W RFX, RUBELLA IGG, HBSAG, HIV SCREEN ####[facility] ,#### CUU, A1C WTH eA, CBC, URDS ####[facility] [id number] [id number] [place] Rubella IgG Antibodyon 12-27 Rubella IgG Antibody 1.22 Normal Immune >0.99 [facility] Comment on above: Order Comment: NONFA STING.JKW Result Comment: Non- immune <0.90 Equivocal 0.90 - 0.99 Immune >0.99 Performed By: #### H CV RX PCR, RPR W RFX, RUBELLA IGG, HBSAG, HIV SCREEN ####[facility] ,#### CUU, A1C WTH eA, CBC, URDS ####[place] [id number] Rubella IgG antibody assayOr dered By: Yasmani Abdullahi on 12-27-2024 Rubella IgG Antibody 1.22 index Immune >0.99 [facility] Comment on above: Non-immune <0.90 Equ ivocal 0.90 - 0.99 Immune >0.99 Serum RPR testOrdered By: Rishi Abdullahi on 12-27-2024 Reagin Ab RPR Ql (S) Reagin Ab [Presence ] in Serum by RPR Non Reactive [facility] Comment on above: Performed at: [employer] [place], [place] [id number] Director: Garfield Fay PhD, Phone: [phone] Serum or plasma hepatitis B virus surface antigen detection by immunoassayOrdered By: Yasmani Abdullahi on 12-27-2024 HBV surface Ag IA Ql Hepatitis B virus s urface Ag [Presence] in Serum or Plasma by Immunoassay Negative [facility] Comment on above: Performed at: [employer] [place] [id number] Director: Garfield Fay PhD, Phone: [phone] Type and Screenon 12-27-2024 ABO and Rh group Nom (Bld) Blood group B Rh(D) negative Normal [facility] Comment on above: Order Comment: NONFA STING.JKW Result Comment: PERF ORMED BY: [facility] [address] [id number] PATHOLOGIST TEST CAR DRIVER LEÓN GARCIA M.D. Urine Cultureon 12-27-2024 Bacteria identified Cx Nom (U) NONFASTING.JKW 15,000 colonies/ml mixed bacterial skin contaminants 2 Days PERFORMED BY: [facility] [address] [facility] [place] [address] PATHOLOGIST TEST CAR DRIVER LEÓN GARCIA M.D. Normal [facility] Comment on above: Performed By: #### H CV RX PCR, RPR W RFX, RUBELLA IGG, HBSAG, HIV SCREEN ####[facility] ,#### CUU, A1C WTH eA, CBC, URDS ####[facility] [id number] [id number] [facility] [[email or web address]] Urine cultureOrdered By: Paramjit Abdullahi on 12-27-2024 Bacteria identified Cx Nom (U) Urine culture [facility] WBC Auto (Bld) [#/Vol]Ordere d By: Yasmani Abdullahi on 12-27-2024 WBC (Bld) [#/Vol] Leukocytes [#/volume ] in Blood by Automated count 3.8-11.6 [facility] US OB TRANSVAGINALon 025 US OB TRANSVAGINAL EXAM: US OB TRANSVAG INAL HISTORY: Dating. COMPARISON: None available. TECHNIQUE: Two-dimensional transabdominal grayscale ultrasound imaging of the pelvis was performed. Color Doppler evaluation of the ovaries was also performed. FINDINGS: The uterus demonstrates a normal homogeneous echotexture. The cervix measures 5.2 cm in length and the cervical os is closed. The right ovary measures 3.2 x 1.6 x 2.4 cm and demonstrates a normal echotexture. There is normal color Doppler flow. The left ovary measures 3.1 x 2.1 x 2.8 cm and demonstrates a normal echotexture. There is normal color Doppler flow. Trace fluid is present within the cul-de-sac. There is a single, live intrauterine gestation identified with a heart rate of 179 beats per minute and a crown-rump length measurement of 2.3 cm, correlating to a gestational age of 9 weeks 0 days (+/- 6 days). There is no subchorionic hemorrhage visualized. A yolk sac is visualized. IMPRESSION: 1. Single, live intrauterine gestation 8 weeks, 5 days by LMP. Today's ultrasound measurements correlate with a gestational age of 9 weeks 0 days (+/- 6 days). RENITA by today's ultrasound is 07/26/2025. 2. Normal color Doppler evaluation of the bilateral ovaries. Electronically Signed:Electronically signed by KOJO ESPINOSA II, MD, PHD at 22-Dec-2024 08:23:50 AM [facility] Normal Not Available Comment on above: Order Comment: US OB TRANSVAGINAL No LMP recorded. Alanine aminotransferase [En zymatic activity/volume] in Serum or PlasmaOrdered By: Jose Forman on 12-06-2024 ALT [Catalytic activity/Vol] Alanine aminotransferase [Enzymatic activity/volume] in Serum or Plasma 7-52 [facility] Albumin [Mass/volume] in Ser um or Plasma by Bromocresol green (BCG) dye binding methoOrdered By: Jose Forman on 12-06-2024 Albumin BCG dye [Mass/Vol] Albumin [Mass/volume] in Serum or Plasma by Bromocresol green (BCG) dye binding metho 3.5-5.7 [facility] Alkaline phosphatase [Enzyma tic activity/volume] in Serum or PlasmaOrdered By: Jose Forman on 12-06-2024 ALP [Catalytic activity/Vol] Alkaline phosphatase [Enzymatic activity/volume] in Serum or Plasma 34-104 [facility] Appearance of UrineOrdered B y: Jose Forman on 12-06-2024 Appearance (U) Urine appearance Clear [facility] Aspartate aminotransferase [ Enzymatic activity/volume] in Serum or PlasmaOrdered By: Jose Forman on 12-06-2024 AST [Catalytic activity/Vol] Aspartate aminotransferase [Enzymatic activity/volume] in Serum or Plasma Low 13-39 [facility] Bacteria [Presence] in Urine by AutomatedOrdered By: Jose Forman on 12-06-2024 Bacteria Auto Ql (U) Bacteria [Presence] in Urine by Automated None Seen [facility] Basic Metabolic Panelon 11-18 Anion gap [Moles/Vol] 7.0 mmol/L Normal 6.0-15.0 [facility] Comment on above: Performed By: #### C BC, HCGQNT, LIPASE, PT, HS TROP, PTT, HEPATIC, BMP ####[address] Calcium [Mass/Vol] 9.1 mg/dL Normal 8.6-10.3 [facility] Comment on above: Performed By: #### C BC, HCGQNT, LIPASE, PT, HS TROP, PTT, HEPATIC, BMP ####[address] Chloride [Moles/Vol] 106 mmol/L Normal 98-107 [facility] Comment on above: Performed By: #### C BC, HCGQNT, LIPASE, PT, HS TROP, PTT, HEPATIC, BMP ####[address] CO2 [Moles/Vol] 24.6 mmol/L Normal 21.0-31.0 [facility] Comment on above: Performed By: #### C BC, HCGQNT, LIPASE, PT, HS TROP, PTT, HEPATIC, BMP ####[address] Creatinine [Mass/Vol] 0.70 mg/dL Normal 0.60-1.20 [facility] Comment on above: Performed By: #### C BC, HCGQNT, LIPASE, PT, HS TROP, PTT, HEPATIC, BMP ####[place] [id number] [facility] [[email or web address]] Creatinine Clr Calc Pharmacy 129.71 Normal [facility] Comment on above: Performed By: #### C BC, HCGQNT, LIPASE, PT, HS TROP, PTT, HEPATIC, BMP ####[place] [id number] [facility] [[email or web address]] GFR/1.73 sq M.predicted MDRD (S/P/Bld) [Vol rate/Area] mL/min/{1.73_m2} Normal [facility] Comment on above: Performed By: #### C BC, HCGQNT, LIPASE, PT, HS TROP, PTT, HEPATIC, BMP ####[place] [id number] [address] Glucose [Mass/Vol] 94 mg/dL Normal 70-100 [facility] Comment on above: Result Comment: [facility] Glucose Reference Range is dependent on time and content of last meal. Glucose of more than 200 mg/dL in a nonstressed, ambulatory subject supports the diagnosis of Diabetes Mellitus. ADA recommended reference range Performed By: #### C BC, HCGQNT, LIPASE, PT, HS TROP, PTT, HEPATIC, BMP ####[place] [id number] [address] Potassium [Moles/Vol] 3.6 mmol/L Normal 3.5-5.1 [facility] Comment on above: Performed By: #### C BC, HCGQNT, LIPASE, PT, HS TROP, PTT, HEPATIC, BMP ####[address] Sodium [Moles/Vol] 134 mmol/L Low 136-145 [facility] Comment on above: Performed By: #### C BC, HCGQNT, LIPASE, PT, HS TROP, PTT, HEPATIC, BMP ####[place] [id number] [address] Urea nitrogen [Mass/Vol] 9 mg/dL Normal 7-25 [facility] Comment on above: Performed By: #### C BC, HCGQNT, LIPASE, PT, HS TROP, PTT, HEPATIC, BMP ####[address] Basophils Auto (Bld) [#/Vol] Ordered By: Jose Forman on 12-06-2024 Basophils (Bld) [#/Vol] Automated basophil count 0.0-0.2 [facility] Basophils/100 WBC Auto (Bld) Ordered By: Jose Forman on 12-06-2024 Basophils/100 WBC (Bld) Automated basophil % . [facility] Bilirubin Test strip Ql (U)O rdered By: Jose Forman on 12-06-2024 Bilirubin Ql (U) Bilirubin.total [Presence] in Urine by Test strip Negative [facility] Bilirubin.direct [Mass/volum e] in Serum or PlasmaOrdered By: Jose Forman on 12-06-2024 Bilirubin.direct [Mass/Vol] Bilirubin.direct [Mass/volume] in Serum or Plasma 0.03-0.18 [facility] Bilirubin.total [Mass/volume ] in Serum or PlasmaOrdered By: Jose Forman on 12-06-2024 Bilirubin [Mass/Vol] Bilirubin.total [Mass/volume] in Serum or Plasma 0.3-1.0 [facility] Calcium [Mass/volume] in Ser um or PlasmaOrdered By: Jose Forman on 12-06-2024 Calcium [Mass/Vol] Calcium [Mass/volume ] in Serum or Plasma 8.6-10.3 [facility] Carbon dioxide, total [Moles /volume] in Serum or PlasmaOrdered By: Jose Forman on 12-06-2024 CO2 [Moles/Vol] Carbon dioxide, tota l [Moles/volume] in Serum or Plasma 21.0-31.0 [facility] Chloride [Moles/volume] in S eamon or PlasmaOrdered By: Jose Forman 12-06-2024 Chloride [Moles/Vol] Chloride [Moles/vol ume] in Serum or Plasma 98-107 [facility] Choriogonadotropin.beta subu nit [Units/volume] in Serum or PlasmaOrdered By: Jose Forman on 12-06-2024 HCG.beta subunit Qn Choriogonadotropin.b eta subunit [Units/volume] in Serum or Plasma [facility] Comment on above: Approximate Approxim ate hCG Gestational Age Range (mIU/ml) (weeks)0.2-1 5-50 1-2 50-500 2-3 100-5,000 3-4 500-10,000 4-5 1,000-50,000 5-6 10,000-100,000 6-8 15,000-200,000 8-12 10,000-100,000 Color Auto (U)Ordered By: Edin Forman on 12-06-2024 Color (U) Color of Urine by Auto Yellow Fi [facility] Complete Blood Count Auto Di ffon 12-06-2024 Basophils (Bld) [#/Vol] 0.0 10*3/uL Normal 0.0-0.2 [facility] Comment on above: Result Comment: PERF ORMED BY: [facility] [place] [address] PATHOLOGIST TEST CAR DRIVER LEÓN GARCIA M.D. Performed By: #### C BC, HCGQNT, LIPASE, PT, HS TROP, PTT, HEPATIC, BMP ####[address] Basophils/100 WBC (Bld) 0.4 % Normal . [facility] Comment on above: Performed By: #### C BC, HCGQNT, LIPASE, PT, HS TROP, PTT, HEPATIC, BMP ####[address] Eosinophils (Bld) [#/Vol] 0.0 10*3/uL Normal 0.0-0.45 [facility] Comment on above: Performed By: #### C BC, HCGQNT, LIPASE, PT, HS TROP, PTT, HEPATIC, BMP ####[address] Eosinophils/100 WBC (Bld) 0.4 % Normal . [facility] Comment on above: Performed By: #### C BC, HCGQNT, LIPASE, PT, HS TROP, PTT, HEPATIC, BMP ####[address] Erythrocyte distribution width (RBC) [Ratio] 13.0 % Normal 11.9-15.3 [facility] Comment on above: Performed By: #### C BC, HCGQNT, LIPASE, PT, HS TROP, PTT, HEPATIC, BMP ####[address] Hematocrit (Bld) [Volume fraction] 38.5 % Normal 34.0-46.4 [facility] Comment on above: Performed By: #### C BC, HCGQNT, LIPASE, PT, HS TROP, PTT, HEPATIC, BMP ####[address] Hemoglobin (Bld) [Mass/Vol] 13.4 g/dL Normal 11.8-15.4 [facility] Comment on above: Performed By: #### C BC, HCGQNT, LIPASE, PT, HS TROP, PTT, HEPATIC, BMP ####[address] Lymphocytes (Bld) [#/Vol] 1.1 10*3/uL Normal 1.00-4.8 [facility] Comment on above: Performed By: #### C BC, HCGQNT, LIPASE, PT, HS TROP, PTT, HEPATIC, BMP ####[address] Lymphocytes/100 WBC (Bld) 14.1 % Normal . [facility] Comment on above: Performed By: #### C BC, HCGQNT, LIPASE, PT, HS TROP, PTT, HEPATIC, BMP ####[address] MCH (RBC) [Entitic mass] 27.6 pg Normal 24.7-34.3 [facility] Comment on above: Performed By: #### C BC, HCGQNT, LIPASE, PT, HS TROP, PTT, HEPATIC, BMP ####[address] MCV (RBC) [Entitic vol] 79.6 fL Low 80-100 [facility] Comment on above: Performed By: #### C BC, HCGQNT, LIPASE, PT, HS TROP, PTT, HEPATIC, BMP ####[address] Mean Corpuscular HGB Conc 34.7 g/dL Normal 32.0-35.0 [facility] Comment on above: Performed By: #### C BC, HCGQNT, LIPASE, PT, HS TROP, PTT, HEPATIC, BMP ####[address] Monocytes (Bld) [#/Vol] 0.5 10*3/uL Normal 0.0-0.8 [facility] Comment on above: Performed By: #### C BC, HCGQNT, LIPASE, PT, HS TROP, PTT, HEPATIC, BMP ####[address] Monocytes/100 WBC (Bld) 16.18 % Normal 0.00-20.00 [facility] Comment on above: Performed By: #### C BC, HCGQNT, LIPASE, PT, HS TROP, PTT, HEPATIC, BMP ####[address] Monocytes/100 WBC (Bld) 6.4 % Normal . [facility] Comment on above: Performed By: #### C BC, HCGQNT, LIPASE, PT, HS TROP, PTT, HEPATIC, BMP ####[address] Neutrophils (Bld) [#/Vol] 5.9 10*3/uL Normal 1.8-7.7 [facility] Comment on above: Performed By: #### C BC, HCGQNT, LIPASE, PT, HS TROP, PTT, HEPATIC, BMP ####[address] Neutrophils/100 WBC (Bld) 78.7 % Normal . [facility] Comment on above: Performed By: #### C BC, HCGQNT, LIPASE, PT, HS TROP, PTT, HEPATIC, BMP ####[address] NRBC% 0.0 /100{WBC} Normal 0-0.5 [facility] Comment on above: Performed By: #### C BC, HCGQNT, LIPASE, PT, HS TROP, PTT, HEPATIC, BMP ####[address] Platelet mean volume (Bld) [Entitic vol] 8.7 fL Normal 6.3-10.7 [facility] Comment on above: Performed By: #### C BC, HCGQNT, LIPASE, PT, HS TROP, PTT, HEPATIC, BMP ####[facility] Platelets (Bld) [#/Vol] 230 10*3/uL Normal 150-450 [facility] Comment on above: Performed By: #### C BC, HCGQNT, LIPASE, PT, HS TROP, PTT, HEPATIC, BMP ####[facility] RBC (Bld) [#/Vol] 4.84 10*6/uL Normal 3.60-5.00 [facility] Comment on above: Performed By: #### C BC, HCGQNT, LIPASE, PT, HS TROP, PTT, HEPATIC, BMP ####[facility] WBC (Bld) [#/Vol] 7.6 10*3/uL Normal 3.8-11.6 [facility] Comment on above: Performed By: #### C BC, HCGQNT, LIPASE, PT, HS TROP, PTT, HEPATIC, BMP ####[place] [id number] [address] Creatinine [Mass/volume] in Serum or PlasmaOrdered By: Jose Forman on 12-06-2024 Creatinine [Mass/Vol] Creatinine [Mass/v olume] in Serum or Plasma 0.60-1.20 [facility] Dipstick and Microscopicon 0 12-06-2024 Appearance (U) Clear Normal Clear [facility] Comment on above: Order Comment: Name Collection Type:: Clean-Voided Midstream Performed By: #### U HCG, ADDONUAPLUS #### [facility] [address] Bacteria,Urine None Seen Normal None Seen [facility] Comment on above: Order Comment: Name Collection Type:: Clean-Voided Midstream Performed By: #### U HCG, ADDONUAPLUS #### [facility] [address] [place] [address] [place] Bilirubin,Urine Negative Normal Negative [facility] Comment on above: Order Comment: Name Collection Type:: Clean-Voided Midstream Performed By: #### U HCG, ADDONUAPLUS #### [facility] [address] [place] [address] [place] Color (U) Yellow Normal Yellow [facility] Comment on above: Order Comment: Name Collection Type:: Clean-Voided Midstream Performed By: #### U HCG, ADDONUAPLUS #### [address] Glucose Ql (U) Normal Normal Normal [facility] Comment on above: Order Comment: Name Collection Type:: Clean-Voided Midstream Performed By: #### U HCG, ADDONUAPLUS #### [place] [address] [place] Hyaline Casts,Urine None Normal 0-8 [facility] Comment on above: Order Comment: Name Collection Type:: Clean-Voided Midstream Performed By: #### U HCG, ADDONUAPLUS #### [place] [address] [place] Ketones Ql (U) 1+ High Negative [facility] Comment on above: Order Comment: Name Collection Type:: Clean-Voided Midstream Performed By: #### U HCG, ADDONUAPLUS #### [address] Leukocyte esterase Test strip Ql (U) Negative Normal Negative [facility] Comment on above: Order Comment: Name Collection Type:: Clean-Voided Midstream Performed By: #### U HCG, ADDONUAPLUS #### [place] [address] [place] Mucus,Urine Rare Normal [facility] Comment on above: Order Comment: Name Collection Type:: Clean-Voided Midstream Performed By: #### U HCG, ADDONUAPLUS #### [place] [address] [place] Nitrite,Urine Negative Normal Negative [facility] Comment on above: Order Comment: Name Collection Type:: Clean-Voided Midstream Performed By: #### U HCG, ADDONUAPLUS #### [address] Occult Blood,Urine Negative Normal Negative [facility] Comment on above: Order Comment: Name Collection Type:: Clean-Voided Midstream Performed By: #### U HCG, ADDONUAPLUS #### [address] pH (U) 6.5 [pH] Normal 5.0-9.0 [facility] Comment on above: Order Comment: Name Collection Type:: Clean-Voided Midstream Performed By: #### U HCG, ADDONUAPLUS #### [address] Protein,Urine Trace High Negative [facility] Comment on above: Order Comment: Name Collection Type:: Clean-Voided Midstream Performed By: #### U HCG, ADDONUAPLUS #### [address] RBC,Urine 1-2 Normal 0-4 [facility] Comment on above: Order Comment: Name Collection Type:: Clean-Voided Midstream Performed By: #### U HCG, ADDONUAPLUS #### [address] Specificy [place],Urine 1.025 Normal 1.001-1.03 0 [facility] Comment on above: Order Comment: Name Collection Type:: Clean-Voided Midstream Performed By: #### U HCG, ADDONUAPLUS #### [address] Squamous Epithelial Cell,Urine 1-2 Normal 0-2 [facility] Comment on above: Order Comment: Name Collection Type:: Clean-Voided Midstream Performed By: #### U HCG, ADDONUAPLUS #### [address] Urobilinogen,Urine Normal Normal Normal [facility] Comment on above: Order Comment: Name Collection Type:: Clean-Voided Midstream Performed By: #### U HCG, ADDONUAPLUS #### [facility] [address] WBC,Urine 1-2 Normal 0-4 [facility] Comment on above: Order Comment: Name Collection Type:: Clean-Voided Midstream Performed By: #### U HCG, ADDONUAPLUS #### [facility] [address] ECG 12 lead ECGon 12-06-2024 ECG 12 lead ECG [facility] Main [place] [address] [place] [address] Electrocardiograph Report Signed Patient: Noris Goetz MR#: [id number] 61 : 1990 Acct:[id number] Age/Sex: 34 / F ADM Date: 12/06/24 Loc: ER Room: Type: [facility] ER Attending Dr: Ordering Provider: Jose Forman DO Date of Service: 12/06/24 ECG/ECG 12 lead ECG: Abdominal Pain Copies to: Test Reason : Blood Pressure : */* mmHG Vent. Rate : 70 BPM Atrial Rate : 70 BPM P-R Int : 190 ms QRS Dur : 100 ms QT Int : 396 ms P-R-T Axes : 53 95 45 degrees QTcB Int : 427 ms Normal sinus rhythm Incomplete right bundle branch block Confirmed by Jose FORMAN DO ([id number]) on 12/06/2024 10:38:39 AM Referred By: Electronically Signed By: Jose FORMAN DO Transcribed By: MUS Signed By Jose Forman DO 0 12/06/24 1038 Normal [facility] Eosinophils Auto (Bld) [#/Vo l]Ordered By: Jose Forman on 12-06-2024 Eosinophils (Bld) [#/Vol] Automated eosinophil count 0.0-0.45 [facility] Eosinophils/100 WBC Auto (Bl d)Ordered By: Jose Forman on 12-06-2024 Eosinophils/100 WBC (Bld) Automated eosinophil % . [facility] Epithelial cells.squamous [# /area] in Urine sediment by Automated countOrdered By: Jose Forman on 12-06-2024 Epithelial cells.squamous Auto (Urine sed) [#/Area] Epithelial cells.squamous [#/area] in Urine sediment by Automated count 0-2 [facility] Erythrocyte distribution wid th Auto (RBC) [Ratio]Ordered By: Jose Forman on 12-06-2024 Erythrocyte distribution width (RBC) [Ratio] Erythrocyte distribution width [Ratio] by Automated count 11.9-15.3 [facility] Erythrocytes [#/area] in Uri ne sediment by Automated countOrdered By: Jose Forman on 12-06-2024 RBC Auto (Urine sed) [#/Area] Erythrocytes [#/area] in Urine sediment by Automated count 0-4 [facility] Globulin Calc (S) [Mass/Vol] Ordered By: Jose Forman on 12-06-2024 Globulin (S) [Mass/Vol] Serum globulin measurement by calculation (mass/volume) [facility] Glucose [Mass/volume] in Ser um or PlasmaOrdered By: Jose Forman on 12-06-2024 Glucose [Mass/Vol] Glucose [Mass/volume ] in Serum or Plasma 70-100 [facility] Comment on above: ADA recommended refe rence rangeRandom Glucose Reference Range is dependent on time and content of last meal. Glucose of more than 200 mg/dL in a nonstressed, ambulatory subject supports the diagnosis of Diabetes Mellitus. Glucose [Mass/volume] in Uri ne by Test stripOrdered By: Jose Forman on 12-06-2024 Glucose Test strip (U) [Mass/Vol] Glucose [Mass/volume] in Urine by Test strip Normal [facility] HCG ( test) IA.rapi d Ql (U)Ordered By: Jose Forman on 12-06-2024 HCG ( test) Ql (U) Urine human chorionic gonadotropin (hCG) detection by immunoassay High [facility] HCG,Quantitativeon HCG,Quantitative 065472.00 m[iU]/mL Normal [facility] Comment on above: Result Comment: Appr oximate Approximate hCG Gestational Age Range (mIU/ml) (weeks) 0.2-1 5-50 1-2 50-500 2-3 100-5,000 3-4 500-10,000 4-5 1,000-50,000 5-6 10,000-100,000 6-8 15,000-200,000 8-12 10,000-100,000 PERFORMED BY: [place] [id number] PATHOLOGIST TEST CAR DRIVER LEÓN GARCIA M.D. Performed By: #### C BC, HCGQNT, LIPASE, PT, HS TROP, PTT, HEPATIC, BMP ####[place] [id number] [address] HCG,Urineon 12-06-2024 Beta HCG ( test) Ql (U) Positive [facility] Comment on above: Order Comment: Name Collection Type:: Clean-Voided Midstream Result Comment: PERF ORMED BY: [place] [id number] PATHOLOGIST TEST CAR DRIVER LEÓN GARCIA M.D. Performed By: #### U HCG, ADDONUAPLUS #### [address] Hematocrit Auto (Bld) [Volum e fraction]Ordered By: Jose Forman on 12-06-2024 Hematocrit (Bld) [Volume fraction] Hematocrit [Volume Fraction] of Blood by Automated count 34.0-46.4 [facility] Hemoglobin Test strip Ql (U) Ordered By: Jose Forman on 12-06-2024 Hemoglobin Ql (U) Hemoglobin [Presence ] in Urine by Test strip Negative [facility] Hemoglobin [Mass/volume] in BloodOrdered By: Jose Forman on 12-06-2024 Hemoglobin (Bld) [Mass/Vol] Hemoglobin [Mass/volume] in Blood 11.8-15.4 [facility] Hepatic Panelon 12-06-2024 Albumin [Mass/Vol] 4.1 g/dL Normal 3.5-5.7 [facility] Comment on above: Performed By: #### C BC, HCGQNT, LIPASE, PT, HS TROP, PTT, HEPATIC, BMP ####[place] [id number] [address] Albumin/Globulin [Mass ratio] 1.6 {ratio} Normal [facility] Comment on above: Performed By: #### C BC, HCGQNT, LIPASE, PT, HS TROP, PTT, HEPATIC, BMP ####[address] ALP [Catalytic activity/Vol] 47 U/L Normal 34-104 [facility] Comment on above: Performed By: #### C BC, HCGQNT, LIPASE, PT, HS TROP, PTT, HEPATIC, BMP ####[address] ALT [Catalytic activity/Vol] 11 U/L Normal 7-52 [facility] Comment on above: Performed By: #### C BC, HCGQNT, LIPASE, PT, HS TROP, PTT, HEPATIC, BMP ####[address] AST [Catalytic activity/Vol] 12 U/L Low 13-39 [facility] Comment on above: Performed By: #### C BC, HCGQNT, LIPASE, PT, HS TROP, PTT, HEPATIC, BMP ####[address] Bilirubin [Mass/Vol] 0.5 mg/dL Normal 0.3-1.0 [facility] Comment on above: Performed By: #### C BC, HCGQNT, LIPASE, PT, HS TROP, PTT, HEPATIC, BMP ####[address] Bilirubin,Indirect 0.4 mg/dL Normal [facility] Comment on above: Performed By: #### C BC, HCGQNT, LIPASE, PT, HS TROP, PTT, HEPATIC, BMP ####[address] Bilirubin.indirect [Mass/Vol] 0.10 mg/dL Normal 0.03-0.18 [facility] Comment on above: Performed By: #### C BC, HCGQNT, LIPASE, PT, HS TROP, PTT, HEPATIC, BMP ####[address] Globulin (S) [Mass/Vol] 2.6 g/dL Normal [facility] Comment on above: Performed By: #### C BC, HCGQNT, LIPASE, PT, HS TROP, PTT, HEPATIC, BMP ####[facility] [id number] [place] [id number] [facility] [[email or web address]] Protein [Mass/Vol] 6.7 g/dL Normal 6.4-8.9 [facility] Comment on above: Performed By: #### C BC, HCGQNT, LIPASE, PT, HS TROP, PTT, HEPATIC, BMP ####[facility] [id number] Hyaline casts [#/area] in Ur ine sediment by Automated countOrdered By: Jose Forman on 12-06-2024 Hyaline casts Auto (Urine sed) [#/Area] Hyaline casts [#/area] in Urine sediment by Automated count 0-8 [facility] INR in Platelet poor plasma by Coagulation assayOrdered By: Jose Forman on 12-06-2024 INR Coag (PPP) [Relative time] INR in Platelet poor plasma by Coagulation assay [facility] Comment on above: INR Therapeutic Rang e A) Pre- and Peroperative OAT started two weeks before surgery. NOT HIP SURGERY: 1.5 - 2.5 HIP SURGERY: 2 - 3B) Primary and secondary prevention of venous THROMBOSIS: 2 - 3C) Active venous thrombosis, pulmonary embolismand prevention of recurrent venous thrombosis: 2 - 3D) Prevention of arterial thromboembolismincluding patients with mechanical heart valves: 3 - 4.5 Ketones Test strip Ql (U)Ord ered By: Jose Forman on 12-06-2024 Ketones Ql (U) Ketones [Presence] i n Urine by Test strip High Negative [facility] Leukocyte esterase [Presence ] in Urine by Test stripOrdered By: Jose Forman on 12-06-2024 Leukocyte esterase Test strip Ql (U) Leukocyte esterase [Presence] in Urine by Test strip Negative [facility] Leukocytes [#/area] in Urine sediment by Automated countOrdered By: Jose Forman on 12-06-2024 WBC Auto (Urine sed) [#/Area] Leukocytes [#/area] in Urine sediment by Automated count 0-4 [facility] Leukocytes [#/volume] correc randolph for nucleated erythrocytes in Blood by Automated counOrdered By: Jose Forman on 12-06-2024 WBC corrected for nucl RBC Auto (Bld) [#/Vol] Leukocytes [#/volume] corrected for nucleated erythrocytes in Blood by Automated coun 3.8-11.6 [facility] Lipaseon 12-06-2024 Lipase [Catalytic activity/Vol] 11.0 U/L Normal 11.0-82.0 [facility] Comment on above: Performed By: #### C BC, HCGQNT, LIPASE, PT, HS TROP, PTT, HEPATIC, BMP ####[facility] [id number] [place] [address] [facility] [[email or web address]] Lipase [Enzymatic activity/v olume] in Serum or PlasmaOrdered By: Jose Forman on 12-06-2024 Lipase [Catalytic activity/Vol] Lipase [Enzymatic activity/volume] in Serum or Plasma 11.0-82.0 [facility] Lymphocytes Auto (Bld) [#/Vo l]Ordered By: Jose Forman on 12-06-2024 Lymphocytes (Bld) [#/Vol] Lymphocytes [#/volume] in Blood by Automated count 1.00-4.8 [facility] Lymphocytes/100 WBC Auto (Bl d)Ordered By: Jose Forman on 12-06-2024 Lymphocytes/100 WBC (Bld) Lymphocytes/100 leukocytes in Blood by Automated count . [facility] MCH Auto (RBC) [Entitic mass ]Ordered By: Jose Forman on 12-06-2024 MCH (RBC) [Entitic mass] MCH [Entitic mass] by Automated count 24.7-34.3 [facility] MCHC Auto (RBC) [Mass/Vol]Or dered By: Jose Forman on 12-06-2024 MCHC (RBC) [Mass/Vol] MCHC [Mass/volume] by Automated count 32.0-35.0 [facility] MCV Auto (RBC) [Entitic vol] Ordered By: Jose Forman on 12-06-2024 MCV (RBC) [Entitic vol] MCV [Entitic volume] by Automated count Low 80-100 [facility] Monocyte distribution width [Entitic volume] in Blood by AutomatedOrdered By: Jose Forman on 12-06-2024 Monocyte distribution width Auto (Bld) [Entitic vol] Monocyte distribution width [Entitic volume] in Blood by Automated 0.00-20.00 [facility] Monocytes Auto (Bld) [#/Vol] Ordered By: Jose Forman on 12-06-2024 Monocytes (Bld) [#/Vol] Automated blood monocyte count 0.0-0.8 [facility] Monocytes/100 WBC Auto (Bld) Ordered By: Jose Forman on 12-06-2024 Monocytes/100 WBC (Bld) Automated monocyte % . [facility] Mucus [Presence] in Urine by AutomatedOrdered By: Jose Forman on 12-06-2024 Mucus Auto Ql (U) Mucus [Presence] in Urine by Automated [facility] Neutrophils Auto (Bld) [#/Vo l]Ordered By: Jose Forman on 12-06-2024 Neutrophils (Bld) [#/Vol] Neutrophils [#/volume] in Blood by Automated count 1.8-7.7 [facility] Neutrophils/100 WBC Auto (Bl d)Ordered By: Jose Forman on 12-06-2024 Neutrophils/100 WBC (Bld) Automated neutrophil % . [facility] Nitrite Test strip Ql (U)Ord ered By: Jose Forman on 12-06-2024 Nitrite Ql (U) Nitrite [Presence] i n Urine by Test strip Negative [facility] No Panel InformationOrdered By: Jose Forman on 12-06-2024 Estimated GFR (CKD-EPI) > 60.0 mL/Min [facility] Creatinine Clearance (Chem 129.71 [facility] Nucleated erythrocytes [Pres ence] in Blood by Automated countOrdered By: Jose Forman on 12-06-2024 Nucleated RBC Auto Ql (Bld) Nucleated erythrocytes [Presence] in Blood by Automated count 0-0.5 [facility] Partial Thromboplastin Timeo n 12-06-2024 aPTT Coag (Bld) [Time] 28.1 s Normal 25.1-36.5 [facility] Comment on above: Result Comment: A he matocrit value greater than 55% may lead to inaccurate results in coagulation testing. Patients having hematocrit values >55% require a special collection tube for coagulation studies. Please contact the laboratory at [phone] for redraw instructions. PERFORMED BY: [facility] [place] [address] PATHOLOGIST TEST CAR DRIVER LEÓN GARCIA M.D. Performed By: #### C BC, HCGQNT, LIPASE, PT, HS TROP, PTT, HEPATIC, BMP ####[facility] [id number] [place] [address] [facility] [[email or web address]] Platelet mean volume Auto (B ld) [Entitic vol]Ordered By: Jose Forman on 12-06-2024 Platelet mean volume (Bld) [Entitic vol] Platelet mean volume [Entitic volume] in Blood by Automated count 6.3-10.7 [facility] Platelets Auto (Bld) [#/Vol] Ordered By: Jose Forman on 12-06-2024 Platelets (Bld) [#/Vol] Platelets [#/volume] in Blood by Automated count 150-450 [facility] Potassium [Moles/volume] in Serum or PlasmaOrdered By: Jose Forman on 12-06-2024 Potassium [Moles/Vol] Potassium [Moles/v olume] in Serum or Plasma 3.5-5.1 [facility] Protein Test strip (U) [Mass /Vol]Ordered By: Jose Forman on 12-06-2024 Protein (U) [Mass/Vol] Protein [Mass/vol ume] in Urine by Test strip High Negative [facility] Protein [Mass/volume] in Ser um or PlasmaOrdered By: Jose Forman on 12-06-2024 Protein [Mass/Vol] Protein [Mass/volume ] in Serum or Plasma 6.4-8.9 [facility] Prothrombin Time INRon 12-06 INR Coag (PPP) [Relative time] 1.1 {INR} Normal [facility] Comment on above: Result Comment: INR Therapeutic Range A) Pre- and Peroperative OAT started two weeks before surgery. NOT HIP SURGERY: 1.5 - 2.5 HIP SURGERY: 2 - 3 B) Primary and secondary prevention of venous THROMBOSIS: 2 - 3 C) Active venous thrombosis, pulmonary embolism and prevention of recurrent venous thrombosis: 2 - 3 D) Prevention of arterial thromboembolism including patients with mechanical heart valves: 3 - 4.5 Performed By: #### C BC, HCGQNT, LIPASE, PT, HS TROP, PTT, HEPATIC, BMP ####[facility] [id number] [place] [address] [facility] [[email or web address]] PT Coag (PPP) [Time] 12.3 s Normal 9.0-12.9 [facility] Comment on above: Result Comment: A he matocrit value greater than 55% may lead to inaccurate results in coagulation testing. Patients having hematocrit values >55% require a special collection tube for coagulation studies. Please contact the laboratory at [phone] for redraw instructions. Performed By: #### C BC, HCGQNT, LIPASE, PT, HS TROP, PTT, HEPATIC, BMP ####[facility] [id number] [place] [address] [facility] [[email or web address]] Prothrombin time (PT)Ordered By: Jose Forman on 12-06-2024 PT Coag (PPP) [Time] Prothrombin time (PT) 9.0- 12.9 [facility] Comment on above: A hematocrit value g reater than 55% may lead to inaccurate results in coagulation testing. Patients having hematocrit values >55% require a special collection tube for coagulation studies. Please contact the laboratory at [phone] for redraw instructions. RBC Auto (Bld) [#/Vol]Ordere d By: Jose Forman on 12-06-2024 RBC (Bld) [#/Vol] Erythrocytes [#/volu me] in Blood by Automated count 3.60-5.00 [facility] Serum or plasma albumin/glob ulin mass ratioOrdered By: Jose Forman on 12-06-2024 Albumin/Globulin [Mass ratio] Serum or plasma albumin/globulin mass ratio [facility] Serum or plasma anion gap de terminationOrdered By: Jose Forman on 12-06-2024 Anion gap [Moles/Vol] Serum or plasma an ion gap determination 6.0-15.0 [facility] Serum or plasma non-glucuron idated bilirubin measurement (mass/volume)Ordered By: Jose Forman on 12-06-2024 Bilirubin.indirect [Mass/Vol] Serum or plasma non-glucuronidated bilirubin measurement (mass/volume) [facility] Sodium [Moles/volume] in Ser um or PlasmaOrdered By: Jose Forman on 12-06-2024 Sodium [Moles/Vol] Sodium [Moles/volume ] in Serum or Plasma Low 136-145 [facility] Specific gravity Test strip (U) [Rel density]Ordered By: Jose Forman on 12-06-2024 Specific gravity (U) [Rel density] Specific gravity of Urine by Test strip 1.001-1.03 0 [facility] Troponin I High Sensitivityo n 12-06-2024 Troponin I High Sensitivity 3 Normal 0-15 [facility] Comment on above: Result Comment: The Troponin units of report have been changed to meet the Chest Pain Accreditation requirement, element EC5.M1l2. Troponin units are changed from pg/ml to ng/L. Also, the decimal is removed and results are in whole numbers. PERFORMED BY: [facility] [address] [place] [address] PATHOLOGIST TEST CAR DRIVER LEÓN GARCIA M.D. Performed By: #### C BC, HCGQNT, LIPASE, PT, HS TROP, PTT, HEPATIC, BMP ####[facility] [id number] Troponin I.cardiac [Mass/vol ume] in Serum or Plasma by Detection limit <= 0.01 ng/Ordered By: Jose Forman on 12-06-2024 Troponin I.cardiac DL <= 0.01 ng/mL [Mass/Vol] Troponin I.cardiac [Mass/volume] in Serum or Plasma by Detection limit <= 0.01 ng/ 0-15 [facility] Comment on above: The Troponin units o f report have been changed to meet the Chest Pain Accreditation requirement, element EC5.M1l2. Troponin units are changed from pg/ml to ng/L. Also, the decimal is removed and results are in whole numbers. US OB <= 14 weeks fetuson US OB <= 14 weeks fetus [facility] Main [place] [address] [place] [address] Ultrasound Report Signed Patient: Noris Goetz MR#: [id number] 61 : 1990 Acct:[id number] Age/Sex: 34 / F ADM Date: 12/06/24 Loc: ER Room: Type: [facility] ER Attending Dr: Ordering Provider: Jose Forman DO Date of Service: 12/06/24 US/US OB <= 14 weeks fetus: Abdominal Pain Copies to: Jose Forman DO Obstetrical ultrasound for fetus less than 14 weeks HISTORY: Abdominal pain. Vaginal bleeding COMPARISON: None The heart rate is 126bpm. Ovaries not visualized No free fluid identified in cul-de-sac. No subchorionic hemorrhage identified. Pettus-rump length measures 6.4cm consistent with 6 weeks 4 days. The yolk sac is not seen. The estimated due date by this ultrasound is 07/28/2025. US/US OB <= 14 weeks fetus IMPRESSION: Single live anterior gestation 6 weeks 4 days. Impression dictated by: Alfonzo Flores M.D.12/06/2024 9:55 AM Dictation Location: [place] [address] Tech: Antonieta Greenberg Transcribed By: JOSESITO 12/06/2455 Dictated By: Alfonzo Flores DO 12/06/24 0954 Signed By: 12/06/24 0955 Normal [facility] Urea nitrogen [Mass/volume] in Serum or PlasmaOrdered By: Jose Forman on 12-06-2024 Urea nitrogen [Mass/Vol] Urea nitrogen [Mass/volume] in Serum or Plasma 05-11 [facility] Urobilinogen Test strip (U) [Mass/Vol]Ordered By: Jose Forman on 12-06-2024 Urobilinogen (U) [Mass/Vol] Urobilinogen [Mass/volume] in Urine by Test strip Normal [facility] WBC Auto (Bld) [#/Vol]Ordere d By: Jose Forman on 12-06-2024 WBC (Bld) [#/Vol] Leukocytes [#/volume ] in Blood by Automated count 3.8-11.6 [facility] aPTT in Platelet poor plasma by Coagulation assayOrdered By: Jose Forman on 12-06-2024 aPTT Coag (PPP) [Time] Activated partial thromboplastin time (aPTT) in platelet poor plasma by coagulation a 25.1-36.5 [facility] Comment on above: A hematocrit value g reater than 55% may lead to inaccurate results in coagulation testing. Patients having hematocrit values >55% require a special collection tube for coagulation studies. Please contact the laboratory at [phone] for redraw instructions. pH Test strip (U)Ordered By: Jose Forman on 12-06-2024 pH (U) pH of Urine by Test strip 5.0-9.0 [facility] XR chest 2V*on 08-11-2024 XR chest 2V* [facility] Main [address] [address] XRay Report Signed Patient: Noris Goetz MR#: [id number] 61 : 1990 Acct:[id number] Age/Sex: 34 / F ADM Date: 08/11/24 Loc: XDUC Room: Type: [facility] Attending Dr: Melissa Reddy [employer]ILD[employer]IC Copies to: Melissa Reddy APRN Ordering Provider: Melissa Reddy APRN Date of Service: 08/11/24 XR/XR chest 2V*: R05.9 - Cough, unspecified Plain film chest 2 view HISTORY: Cough and congestion. COMPARISON: None FINDINGS: SUPPORT DEVICES: None POSTSURGICAL CHANGES: None HEART: Within normal limits PULMONARY CHRISTINE: Within normal limits MEDIASTINUM: Unremarkable LUNGS AND PLEURA: The right lower lobe infiltrate. No pleural effusion or pneumothorax. BONY STRUCTURES: Intact ADDITIONAL FINDINGS None XR/XR chest 2V* IMPRESSION: Right lower lobe infiltrate. Impression dictated by: Alfonzo Flores M.D.08/11/2024 9:59 AM Dictation Location: [place] [address] Transcribed By: [facility] 08/11/24 0959 Dictated By: Alfonzo Flores DO 08/11/24 0958 Signed By: 08/11/24 0959 Normal [facility] No Panel InformationOrdered By: Derrick Wilson on 08-02-2024 Miscellaneous Pathology Test See comment [facility] Comment on above: See report. Scanned copy available in EMR. Pathology Request for Lab Co rpon 08-02-2024 Pathology Request for Lab Ministerio Normal [facility] Comment on above: Order Comment: PATHO LOGY SKIN SPECIMEN Result Comment: See report. Scanned copy available in EMR. PERFORMED BY: [address] [id number] PATHOLOGIST TEST CAR DRIVER JOAN CROWLEY M.D. Performed By: #### P ATH TO [facility] ####[facility] [id number] [place] [id number] [facility] [[email or web address]] US extremity nonvascularon 0 05-23-2024 US extremity nonvascular [facility] [address] [place] [address] [place] [address] Ultrasound Report Signed Patient: Noris Goetz MR#: [id number] 61 : 1990 Acct:[id number] Age/Sex: 34 / F ADM Date: 05/23/24 Loc: Room: Type: [facility] Attending Dr: Marianela Oliva MD Ordering Provider: Marianela Oliva MD Date of Service: 05/23/24 US/US extremity nonvascular: R22.2 - Localized swelling, mass and lump, trunk Copies to: Marianela Oliva MD LIMITED ULTRASOUND - anterior left shoulder. CLINICAL DATA: Lump at the anterior left shoulder for the past few weeks. COMPARISON: None Real-time ultrasound evaluation of the palpable area of concern was performed as indicated by the patient. Right side was also scanned for comparison. There is a subtle subcutaneous oval area that is isoechoic to the remaining subcutaneous fat in the area of clinical concern. This might be a lipoma. It measures approximately 23 x 7 x 29 mm in size. This is asymmetric from the right. US/US extremity nonvascular IMPRESSION: SUBTLE SUBCUTANEOUS, ISOECHOIC NODULAR AREA AT THE SITE OF PALPABLE CONCERN. LIPOMA IS THE LEADING DIFFERENTIAL CONSIDERATION. CLINICAL CORRELATION SUGGESTED. Impression dictated by: Annel Barnhart M.D.05/23/2024 2:18 PM Dictation Location: [place] [address] Tech: Ayleen Roxann Transcribed By: JOSESITO 05/23/24 1418 Dictated By: Annel Barnhart MD 05/23/241413 Signed By: 05/23/24 1418 Normal [facility] Automated basophil %Ordered By: Mario Perez on 05-17-2024 Basophils/100 WBC (Bld) 0.8 % Normal . [facility] Comment on above: Order Comment: RONNIE PEPEW Performed By: #### P ILLAR TSH, PILLAR CBC, PILLAR BMP, PILLAR LIPID #### [address] Automated basophil countOrde red By: Mario Ana on 05-17-2024 Basophils (Bld) [#/Vol] 0.0 10*3/uL Normal 0.0-0.2 [facility] Comment on above: Order Comment: FASTI NG. JKW Result Comment: PERF ORMED BY: [place] [id number] PATHOLOGIST TEST CAR DRIVER JOAN CROWLEY M.D. Performed By: #### P ILLAR TSH, PILLAR CBC, PILLAR BMP, PILLAR LIPID #### [address] Automated blood monocyte cou ntOrdered By: Mario ePrez on 05-17-2024 Monocytes (Bld) [#/Vol] 0.6 10*3/uL Normal 0.0-0.8 [facility] Comment on above: Order Comment: FASTI NG. JKW Performed By: #### P ILLAR TSH, PILLAR CBC, PILLAR BMP, PILLAR LIPID #### [address] Automated eosinophil %Ordere d By: Mario Perez on 05-17-2024 Eosinophils/100 WBC (Bld) 5.3 % Normal . [facility] Comment on above: Order Comment: FASTI NG. JKW Performed By: #### P ILLAR TSH, PILLAR CBC, PILLAR BMP, PILLAR LIPID #### [address] Automated eosinophil countOr dered By: Mario Perez on 05-17-2024 Eosinophils (Bld) [#/Vol] 0.3 10*3/uL Normal 0.0-0.45 [facility] Comment on above: Order Comment: FASTI NG. JKW Performed By: #### P ILLAR TSH, PILLAR CBC, PILLAR BMP, PILLAR LIPID #### [address] Automated monocyte %Ordered By: Mario Perez on 05-17-2024 Monocytes/100 WBC (Bld) 10.8 % Normal . [facility] Comment on above: Order Comment: FASTI NG. JKW Performed By: #### P ILLAR TSH, PILLAR CBC, PILLAR BMP, PILLAR LIPID #### [facility] [address] Automated neutrophil %Ordere d By: Mario Perez on 05-17-2024 Neutrophils/100 WBC (Bld) 55.1 % Normal . [facility] Comment on above: Order Comment: FASTI NG. JKW Performed By: #### P ILLAR TSH, PILLAR CBC, PILLAR BMP, PILLAR LIPID #### [facility] [address] Calcium [Mass/volume] in Ser um or PlasmaOrdered By: Mario Perez on 05-17-2024 Calcium [Mass/Vol] 8.5 mg/dL Low 8.6-10.3 [facility] Comment on above: Order Comment: FASTI NG. JKW Performed By: #### P ILLAR TSH, PILLAR CBC, PILLAR BMP, PILLAR LIPID #### [facility] [address] Carbon dioxide, total [Moles /volume] in Serum or PlasmaOrdered By: Mario Perez on 05-17-2024 CO2 [Moles/Vol] 27.7 mmol/L Normal 21.0-31.0 [facility] Comment on above: Order Comment: FASTI NG. JKW Performed By: #### P ILLAR TSH, PILLAR CBC, PILLAR BMP, PILLAR LIPID #### [facility] [address] [place] [address] [place] Chloride [Moles/volume] in S eamon or PlasmaOrdered By: Mario Perez on 05-17-2024 Chloride [Moles/Vol] 109 mmol/L High 98-107 [facility] Comment on above: Order Comment: FASTI NG. JKW Performed By: #### P ILLAR TSH, PILLAR CBC, PILLAR BMP, PILLAR LIPID #### [facility] [address] Cholesterol [Mass/volume] in Serum or PlasmaOrdered By: Mario Perez on 05-17-2024 Cholesterol [Mass/Vol] 170 mg/dL Normal 140-200 [facility] Comment on above: Chol less than 200 m g/dl low riskChol 201-239 mg/dl borderline riskChol 240 mg/dl and greater high risk Order Comment: RONNIE GRIMALDO Result Comment: Chol less than 200 mg/dl low risk Chol 201-239 mg/dl borderline risk Chol 240 mg/dl and greater high risk Performed By: #### P ILLAR TSH, PILLAR CBC, PILLAR BMP, PILLAR LIPID #### [facility] [address] Cholesterol in LDL Calc [Mas s/Vol]Ordered By: Mario Perez on 05-17-2024 Cholesterol in LDL [Mass/Vol] 109 mg/dL High 0-100 [facility] Comment on above: LDL ATP III CLASSIFI CATIONLDL less than 100 mg/dL OptimalLDL 100-129 mg/dL Near or above optimalLDL 130-159 mg/dL Borderline highLDL 160-189 mg/dL HighLDL greater than 189 mg/dL Very high Cholesterol in VLDL Calc [Ma ss/Vol]Ordered By: Mario Perez on 05-17-2024 Cholesterol in VLDL [Mass/Vol] 10 mg/dL [facility] Creatinine [Mass/volume] in Serum or PlasmaOrdered By: Mario Perez on 05-17-2024 Creatinine [Mass/Vol] 0.73 mg/dL Normal 0.60-1.20 [facility] Comment on above: Order Comment: RONNIE PEPEW Performed By: #### P ILLAR TSH, PILLAR CBC, PILLAR BMP, PILLAR LIPID #### [facility] [address] [place] [address] [place] Employee Basic Metabolic Nails [place] 05-17-2024 GFR/1.73 sq M.predicted MDRD (S/P/Bld) [Vol rate/Area] mL/min/{1.73_m2} Normal [facility] Comment on above: Order Comment: FASTI NG. JKW Performed By: #### P ILLAR TSH, PILLAR CBC, PILLAR BMP, PILLAR LIPID #### [address] Employee Complete Blood Coun ton 05-17-2024 Mean Corpuscular HGB Conc 34.2 g/dL Normal 32.0-35.0 [facility] Comment on above: Order Comment: FASTI NG. JKW Performed By: #### P ILLAR TSH, PILLAR CBC, PILLAR BMP, PILLAR LIPID #### [address] NRBC% 0.1 /100{WBC} Normal 0-0.5 [facility] Comment on above: Order Comment: FASTI NG. JKW Performed By: #### P ILLAR TSH, PILLAR CBC, PILLAR BMP, PILLAR LIPID #### [address] Employee Lipid Profileon LDL Cholesterol,Calculated 109 mg/dL High 0-100 [facility] Comment on above: Order Comment: FASTI NG. JKW Result Comment: LDL ATP III CLASSIFICATION LDL less than 100 mg/dL Optimal LDL 100-129 mg/dL Near or above optimal LDL 130-159 mg/dL Borderline high LDL 160-189 mg/dL High LDL greater than 189 mg/dL Very high Performed By: #### P ILLAR TSH, PILLAR CBC, PILLAR BMP, PILLAR LIPID #### [address] Triglyceride w/Reflex 52 mg/dL Normal 0-149 [facility] Comment on above: Order Comment: FASTI NG. JKW Result Comment: TRIG ATP III CLASSIFICATION TRIG less than 150 mg/dL Normal TRIG 150-199 mg/dL Borderline high TRIG 200-500 mg/dL High TRIG greater than 500 mg/dL Very high Standard traceable to the Center for Disease Conrtrol and Prevention (CDC) test method. Performed By: #### P ILLAR TSH, PILLAR CBC, PILLAR BMP, PILLAR LIPID #### [address] VLDL CHOLESTEROL 10 mg/dL Normal [facility] Comment on above: Order Comment: FASTI NG. JKW Performed By: #### P ILLAR TSH, PILLAR CBC, PILLAR BMP, PILLAR LIPID #### [facility] [address] [place] [address] Employee Thyroid Stim Hormon paulo 05-17-2024 Employee Thyroid Stim Hormone 1.90 u[iU]/mL Normal 0.45-5.33 [facility] Comment on above: Order Comment: FASTI NG. JKW Result Comment: PERF ORMED BY: [place] [id number] PATHOLOGIST TEST CAR DRIVER JOAN CROWLEY M.D. Performed By: #### P ILLAR TSH, PILLAR CBC, PILLAR BMP, PILLAR LIPID #### [facility] [address] [place] [address] Erythrocyte distribution wid th [Ratio] by Automated countOrdered By: Mario Perez on 05-17-2024 Erythrocyte distribution width (RBC) [Ratio] 13.7 % Normal 11.9-15.3 [facility] Comment on above: Order Comment: FASTI NG. JKW Performed By: #### P ILLAR TSH, PILLAR CBC, PILLAR BMP, PILLAR LIPID #### [address] Erythrocytes [#/volume] in B lood by Automated countOrdered By: Mario Perez on 05-17-2024 RBC (Bld) [#/Vol] 4.62 10*6/uL Normal 3.60-5.00 [facility] Comment on above: Order Comment: FASTI NG. JKW Performed By: #### P ILLAR TSH, PILLAR CBC, PILLAR BMP, PILLAR LIPID #### [facility] [address] [place] [address] Glucose [Mass/volume] in Ser um or PlasmaOrdered By: Mario Perez on 05-17-2024 Glucose [Mass/Vol] 95 mg/dL Normal 70-100 [facility] Comment on above: Order Comment: FASTI NG. JKW Performed By: #### P ILLAR TSH, PILLAR CBC, PILLAR BMP, PILLAR LIPID #### [facility] [address] [place] [address] Hematocrit [Volume Fraction] of Blood by Automated countOrdered By: Mario Perez on 05-17-2024 Hematocrit (Bld) [Volume fraction] 36.7 % Normal 34.0-46.4 [facility] Comment on above: Order Comment: RONNIE HollandKW Performed By: #### P ILLAR TSH, PILLAR CBC, PILLAR BMP, PILLAR LIPID #### [facility] [address] [place] [address] Hemoglobin [Mass/volume] in BloodOrdered By: Mario Perez on 05-17-2024 Hemoglobin (Bld) [Mass/Vol] 12.6 g/dL Normal 11.8-15.4 [facility] Comment on above: Order Comment: RONNIE HollandKW Performed By: #### P ILLAR TSH, PILLAR CBC, PILLAR BMP, PILLAR LIPID #### [facility] [address] [place] [address] Leukocytes [#/volume] correc randolph for nucleated erythrocytes in Blood by Automated counOrdered By: Mario Perez on 05-17-2024 WBC corrected for nucl RBC Auto (Bld) [#/Vol] 5.1 10*3/uL 3.8-11.6 [facility] Leukocytes [#/volume] in Blo od by Automated countOrdered By: Mario Perez on 05-17-2024 WBC (Bld) [#/Vol] 5.1 10*3/uL Normal 3.8-11.6 [facility] Comment on above: Order Comment: RONNIE MAURO JKW Performed By: #### P ILLAR TSH, PILLAR CBC, PILLAR BMP, PILLAR LIPID #### [facility] [address] [place] [address] [place] Lymphocytes [#/volume] in Bl ood by Automated countOrdered By: Mario Perez on 05-17-2024 Lymphocytes (Bld) [#/Vol] 1.4 10*3/uL Normal 1.00-4.8 [facility] Comment on above: Order Comment: FASTI NG. JKW Performed By: #### P ILLAR TSH, PILLAR CBC, PILLAR BMP, PILLAR LIPID #### [facility] [address] [place] [address] [place] Lymphocytes/100 leukocytes i n Blood by Automated countOrdered By: Mario Perez on 05-17-2024 Lymphocytes/100 WBC (Bld) 28.0 % Normal . [facility] Comment on above: Order Comment: FASTI NG. JKW Performed By: #### P ILLAR TSH, PILLAR CBC, PILLAR BMP, PILLAR LIPID #### [facility] [address] MCH [Entitic mass] by Automa randolph countOrdered By: Mario Perez on 05-17-2024 MCH (RBC) [Entitic mass] 27.2 pg Normal 24.7-34.3 [facility] Comment on above: Order Comment: FASTI NG. JKW Performed By: #### P ILLAR TSH, PILLAR CBC, PILLAR BMP, PILLAR LIPID #### [facility] [address] MCHC Auto (RBC) [Mass/Vol]Or dered By: Mario Perez on 05-17-2024 MCHC (RBC) [Mass/Vol] 34.2 g/dL 32.0-35.0 [facility] MCV [Entitic volume] by Auto mated countOrdered By: Mario Perez on 05-17-2024 MCV (RBC) [Entitic vol] 79.4 fL Low 80-100 [facility] Comment on above: Order Comment: FASTI NG. JKW Performed By: #### P ILLAR TSH, PILLAR CBC, PILLAR BMP, PILLAR LIPID #### [facility] [address] [place] [address] [place] Neutrophils [#/volume] in Bl ood by Automated countOrdered By: Mario Perez on 05-17-2024 Neutrophils (Bld) [#/Vol] 2.8 10*3/uL Normal 1.8-7.7 [facility] Comment on above: Order Comment: FASTI NG. JKW Performed By: #### P ILLAR TSH, PILLAR CBC, PILLAR BMP, PILLAR LIPID #### [facility] [address] [place] [address] No Panel InformationOrdered By: Mario Perez on 05-17-2024 Estimated GFR (CKD-EPI) > 60.0 mL/Min [facility] Creatinine Clearance (Chem N/A [facility] Nucleated erythrocytes [Pres ence] in Blood by Automated countOrdered By: Mario Perez on 05-17-2024 Nucleated RBC Auto Ql (Bld) 0.1 /100{WBC} 0-0.5 [facility] Platelet mean volume [Entiti c volume] in Blood by Automated countOrdered By: Mario Perez on 05-17-2024 Platelet mean volume (Bld) [Entitic vol] 8.9 fL Normal 6.3-10.7 [facility] Comment on above: Order Comment: FASTI NG. JKW Performed By: #### P ILLAR TSH, PILLAR CBC, PILLAR BMP, PILLAR LIPID #### [address] Platelets [#/volume] in Bloo d by Automated countOrdered By: Mario Perez on 05-17-2024 Platelets (Bld) [#/Vol] 192 10*3/uL Normal 150-450 [facility] Comment on above: Order Comment: FASTI NG. JKW Performed By: #### P ILLAR TSH, PILLAR CBC, PILLAR BMP, PILLAR LIPID #### [address] Potassium [Moles/volume] in Serum or PlasmaOrdered By: Mario Perez on 05-17-2024 Potassium [Moles/Vol] 3.9 mmol/L Normal 3.5-5.1 [facility] Comment on above: Order Comment: FASTI NG. JKW Performed By: #### P ILLAR TSH, PILLAR CBC, PILLAR BMP, PILLAR LIPID #### [facility] [address] [place] [address] Serum or plasma anion gap de terminationOrdered By: Mario Perez on 05-17-2024 Anion gap [Moles/Vol] 7.2 mmol/L Normal 6.0-15.0 [facility] Comment on above: Order Comment: RONNIE HollandKW Performed By: #### P ILLAR TSH, PILLAR CBC, PILLAR BMP, PILLAR LIPID #### [facility] [address] Serum or plasma high density lipoprotein (HDL) cholesterol measurementOrdered By: Mario Perez on 05-17-2024 Cholesterol in HDL [Mass/Vol] 51 mg/dL Normal 23-92 [facility] Comment on above: HDL CHOL ATP-III CLA SSIFICATION Cardiovascular RiskHDL > or equal to 60 mg/dL LOWHDL < 40 mg/dL HIGH Order Comment: RONNIE HollandKW Result Comment: HDL CHOL ATP-III CLASSIFICATION Cardiovascular Risk HDL > or equal to 60 mg/dL LOW HDL < 40 mg/dL HIGH Performed By: #### P ILLAR TSH, PILLAR CBC, PILLAR BMP, PILLAR LIPID #### [address] Serum or plasma total choles terol/high density lipoprotein (HDL) cholesterol mass ratOrdered By: Mario Perez on 05-17-2024 Cholesterol.total/Chol esterol in HDL [Mass ratio] 3.3 {ratio} Normal <5.0 [facility] Comment on above: Order Comment: RONNIE HollandKW Performed By: #### P ILLAR TSH, PILLAR CBC, PILLAR BMP, PILLAR LIPID #### [address] Sodium [Moles/volume] in Ser um or PlasmaOrdered By: Mario Perez on 05-17-2024 Sodium [Moles/Vol] 140 mmol/L Normal 136-145 [facility] Comment on above: Order Comment: RONNIE HollandKW Performed By: #### P ILLAR TSH, PILLAR CBC, PILLAR BMP, PILLAR LIPID #### [address] Thyrotropin [Units/volume] i n Serum or PlasmaOrdered By: Mario Perez on 05-17-2024 TSH Qn 1.90 m[IU]/L 0.45-5.33 [facility] Triglyceride [Mass/volume] i n Serum or PlasmaOrdered By: Mario Perez on 05-17-2024 Triglyceride [Mass/Vol] 52 mg/dL 0-149 [facility] Comment on above: TRIG ATP III CLASSIF ICATIONTRIG less than 150 mg/dL NormalTRIG 150-199 mg/dL Borderline highTRIG 200-500 mg/dL High TRIG greater than 500 mg/dL Very highStandard traceable to the Center for Disease Conrtrol and Prevention (CDC) test method. Urea nitrogen [Mass/volume] in Serum or PlasmaOrdered By: Mario Perez on 05-17-2024 Urea nitrogen [Mass/Vol] 15 mg/dL Normal 7-25 [facility] Comment on above: Order Comment: RONNIE COBIAN. JKW Performed By: #### P ILLAR TSH, PILLAR CBC, PILLAR BMP, PILLAR LIPID #### [facility] [address] Alanine aminotransferase [En zymatic activity/volume] in Serum or PlasmaOrdered By: Mario Perez on 07-12-2023 ALT [Catalytic activity/Vol] 14 U/L 7-52 [facility] Albumin [Mass/volume] in Ser um or Plasma by Bromocresol green (BCG) dye binding methoOrdered By: Mario Perez on 07-12-2023 Albumin BCG dye [Mass/Vol] 4.2 g/dL 3.5-5.7 [facility] Alkaline phosphatase [Enzyma tic activity/volume] in Serum or PlasmaOrdered By: Mario Perez on 07-12-2023 ALP [Catalytic activity/Vol] 45 U/L 34-104 [facility] Aspartate aminotransferase [ Enzymatic activity/volume] in Serum or PlasmaOrdered By: Mario Perez on 07-12-2023 AST [Catalytic activity/Vol] 15 U/L 13-39 [facility] Bilirubin.total [Mass/volume ] in Serum or PlasmaOrdered By: Mario Perez on 07-12-2023 Bilirubin [Mass/Vol] 0.4 mg/dL 0.3-1.0 [facility] Calcium [Mass/volume] in Ser um or PlasmaOrdered By: Mario Perez on 07-12-2023 Calcium [Mass/Vol] 8.9 mg/dL 8.6-10.3 [facility] Carbon dioxide, total [Moles /volume] in Serum or PlasmaOrdered By: Mario Perez on 07-12-2023 CO2 [Moles/Vol] 28.7 mmol/L 21.0-31.0 [facility] Chloride [Moles/volume] in S eamon or PlasmaOrdered By: Mario Perez on 07-12-2023 Chloride [Moles/Vol] 106 mmol/L 98-107 [facility] Cholesterol [Mass/volume] in Serum or PlasmaOrdered By: Mario Perez on 07-12-2023 Cholesterol [Mass/Vol] 194 mg/dL 140-200 [facility] Comment on above: Chol less than 200 m g/dl low riskChol 201-239 mg/dl borderline riskChol 240 mg/dl and greater high risk Cholesterol in LDL Calc [Mas s/Vol]Ordered By: Mario Perez on 07-12-2023 Cholesterol in LDL [Mass/Vol] 119 mg/dL 0-100 [facility] Comment on above: LDL ATP III CLASSIFI CATIONLDL less than 100 mg/dL OptimalLDL 100-129 mg/dL Near or above optimalLDL 130-159 mg/dL Borderline highLDL 160-189 mg/dL HighLDL greater than 189 mg/dL Very high Cholesterol in VLDL Calc [Ma ss/Vol]Ordered By: Mario Perez on 07-12-2023 Cholesterol in VLDL [Mass/Vol] 12 mg/dL [facility] Creatinine [Mass/volume] in Serum or PlasmaOrdered By: Mario Perez on 07-12-2023 Creatinine [Mass/Vol] 0.78 mg/dL 0.60-1.20 [facility] Globulin Calc (S) [Mass/Vol] Ordered By: Mario Perez on 07-12-2023 Globulin (S) [Mass/Vol] 2.2 g/dL [facility] Glucose [Mass/volume] in Ser um or PlasmaOrdered By: Mario Perez on 07-12-2023 Glucose [Mass/Vol] 99 mg/dL 70-100 [facility] No Panel InformationOrdered By: Mario Perez on 07-12-2023 Estimated GFR (CKD-EPI) > 60.0 mL/Min [facility] Creatinine Clearance (Chem N/A [facility] Potassium [Moles/volume] in Serum or PlasmaOrdered By: Mario Perez on 07-12-2023 Potassium [Moles/Vol] 4.3 mmol/L 3.5-5.1 [facility] Protein [Mass/volume] in Ser um or PlasmaOrdered By: Mario Perez on 07-12-2023 Protein [Mass/Vol] 6.4 g/dL 6.4-8.9 [facility] Serum or plasma albumin/glob ulin mass ratioOrdered By: Mario Perez on 07-12-2023 Albumin/Globulin [Mass ratio] 1.9 {ratio} [facility] Serum or plasma anion gap de terminationOrdered By: Mario Perez on 07-12-2023 Anion gap [Moles/Vol] 8.6 mmol/L 6.0-15.0 [facility] Serum or plasma high density lipoprotein (HDL) cholesterol measurementOrdered By: Mario Perez on 07-12-2023 Cholesterol in HDL [Mass/Vol] 63 mg/dL 23-92 [facility] Comment on above: HDL CHOL ATP-III CLA SSIFICATION Cardiovascular RiskHDL > or equal to 60 mg/dL LOWHDL < 40 mg/dL HIGH Serum or plasma total choles terol/high density lipoprotein (HDL) cholesterol mass ratOrdered By: Mario Perez on 07-12-2023 Cholesterol.total/Chol esterol in HDL [Mass ratio] 3.1 {ratio} <5.0 [facility] Sodium [Moles/volume] in Ser um or PlasmaOrdered By: Mario Perez on 07-12-2023 Sodium [Moles/Vol] 139 mmol/L 136-145 [facility] Triglyceride [Mass/volume] i n Serum or PlasmaOrdered By: Mario Perez on 07-12-2023 Triglyceride [Mass/Vol] 61 mg/dL 0-149 [facility] Comment on above: TRIG ATP III CLASSIF ICATIONTRIG less than 150 mg/dL NormalTRIG 150-199 mg/dL Borderline highTRIG 200-500 mg/dL High TRIG greater than 500 mg/dL Very highStandard traceable to the Center for Disease Conrtrol and Prevention (CDC) test method. Urea nitrogen [Mass/volume] in Serum or PlasmaOrdered By: Mario Perez on 07-12-2023 Urea nitrogen [Mass/Vol] 13 mg/dL 05-11 [facility] Human papilloma virus 16+18+ 31+33+35+39+45+51+52+56+58+59+66+68 DNA [Presence] in CerOrdered By: MARISSA GARCIA on 12-15-2022 HPV 16+18+31+33+35+39+45+5 1+52+56+58+59+66+68 DNA Probe+sig amp Ql (Cvx) Negative Negative [facility] Comment on above: This nucleic acid am plification test detects fourteen high- risk HPV types (16,18,31,33,35,39,45,51,52,56,58,59,66,68)without differentiation.Performed at: - [address] [id number] Director: Azalea Quezada MD, Phone: [phone] at: =[facility] [id number] Director: Azalea Quezada MD, Phone: [phone] No Panel InformationOrdered By: MARISSA GARCIA on 12-15-2022 IG Pap w/Ct-Ng & HPV Rflx (Off-Site Note . [facility] Comment on above: TESTS RESULT FLAG UN ITS REF RANGE LAB Clinician Provided Cytology Information No. of containers..01 ThinPrep VialDIAGNOSIS: 01 NEGATIVE FOR INTRAEPITHELIAL LESION OR MALIGNANCY.Specimen adequacy: 01 Satisfactory for evaluation. Endocervical and/or squamous metaplastic cells (endocervical component) are present.Performed by: 01 Jose Manuel Garcia, Admitting Clerk ([facility]). 01Note: Note 01 The Pap smear is a screening test designed to aid in the detection of premalignant and malignant conditions of the uterine cervix. It is not a diagnostic procedure and should not be used as the sole means of detecting cervical cancer. Both false-positive and false-negative reports do occur.Test Methodology: Note 01 This liquid based ThinPrep(R) pap test was screened with the use of an image guided system.HPV Genotype Reflex Note 01 Criteria not met, HPV Genotype not performed. ------- FLAG LEGEND: L-Low Normal,H-High Normal,LL-Alert Low,HH-Alert High <-Panic Low,>-Panic High,A-Abnormal,AA-Critical Abnormal -----Performed at:[address] [address] Azalea Quezada MD, Albumin [Mass/volume] in Ser um or PlasmaOrdered By: Marianela Oliva on 06-26-2022 Albumin [Mass/Vol] 3.8 g/dL 3.2-5.5 [facility] Basophils Auto (Bld) [#/Vol] Ordered By: Marianela Oliva on 06-26-2022 Basophils (Bld) [#/Vol] 0.0 10*3/uL 0.0-0.2 [facility] Basophils/100 WBC Auto (Bld) Ordered By: Marianela Oliva on 06-26-2022 Basophils/100 WBC (Bld) 0.7 % . [facility] Cholesterol [Mass/volume] in Serum or PlasmaOrdered By: Marianela Oliva on 06-26-2022 Cholesterol [Mass/Vol] 177 mg/dL 140-200 [facility] Comment on above: Chol less than 200 m g/dl low riskChol 201-239 mg/dl borderline riskChol 240 mg/dl and greater high risk Cholesterol in LDL Calc [Mas s/Vol]Ordered By: Marianela Oliva on 06-26-2022 Cholesterol in LDL [Mass/Vol] 118 mg/dL 0-100 [facility] Comment on above: LDL ATP III CLASSIFI CATIONLDL less than 100 mg/dL OptimalLDL 100-129 mg/dL Near or above optimalLDL 130-159 mg/dL Borderline highLDL 160-189 mg/dL HighLDL greater than 189 mg/dL Very high Cholesterol in VLDL Calc [Ma ss/Vol]Ordered By: Marianela Oliva on 06-26-2022 Cholesterol in VLDL [Mass/Vol] 10 mg/dL [facility] Creatinine and Glomerular fi ltration rate.predicted panel (S/P/Bld)Ordered By: Marianela Oliva on 06-26-2022 Creatinine [Mass/Vol] 0.77 mg/dL 0.44-1.03 [facility] Eosinophils Auto (Bld) [#/Vo l]Ordered By: Marianela Oliva on 06-26-2022 Eosinophils (Bld) [#/Vol] 0.2 10*3/uL 0.0-0.45 [facility] Eosinophils/100 WBC Auto (Bl d)Ordered By: Marianela Oliva on 06-26-2022 Eosinophils/100 WBC (Bld) 4.1 % . [facility] Erythrocyte distribution wid th Auto (RBC) [Ratio]Ordered By: Marianela Oliva on 06-26-2022 Erythrocyte distribution width (RBC) [Ratio] 13.1 % 11.9-15.3 [facility] Estimated glomerular filtrat ion rate (GFR) non- AmericanOrdered By: Marianela Oliva on 06-26-2022 GFR/1.73 sq M.predicted among non-blacks MDRD (S/P/Bld) [Vol rate/Area] > 60 mL/Min [facility] Globulin Calc (S) [Mass/Vol] Ordered By: Marianela Oliva on 06-26-2022 Globulin (S) [Mass/Vol] 2.3 g/dL [facility] Hematocrit Auto (Bld) [Volum e fraction]Ordered By: Marianela Oliva on 06-26-2022 Hematocrit (Bld) [Volume fraction] 38.9 % 34.0-46.4 [facility] Hemoglobin [Mass/volume] in BloodOrdered By: Marianela Oliva on 06-26-2022 Hemoglobin (Bld) [Mass/Vol] 13.1 g/dL 11.8-15.4 [facility] Laboratory - Chemistry and C hemistry - challengeOrdered By: Marianela Oliva on 06-26-2022 Glucose [Mass/Vol] 98 mg/dL 70-100 [facility] Laboratory - Hematology and Cell countsOrdered By: Marianela Oliva on 06-26-2022 Nucleated RBC/100 WBC (Bld) [Ratio] 0.0 % 0-0.5 [facility] Leukocytes [#/volume] in Blo od by Automated countOrdered By: Marianela Oliva on 06-26-2022 WBC (Bld) [#/Vol] 4.3 10*3/uL 4.5-11.0 [facility] Lymphocytes Auto (Bld) [#/Vo l]Ordered By: Marianela Oliva on 06-26-2022 Lymphocytes (Bld) [#/Vol] 1.5 10*3/uL 1.00-4.8 [facility] Lymphocytes/100 WBC Auto (Bl d)Ordered By: Marianela Oliva on 06-26-2022 Lymphocytes/100 WBC (Bld) 35.2 % . [facility] MCH Auto (RBC) [Entitic mass ]Ordered By: Marianela Oliva on 06-26-2022 MCH (RBC) [Entitic mass] 27.3 pg 24.7-34.3 [facility] MCHC Auto (RBC) [Mass/Vol]Or dered By: Marianela Oliva on 06-26-2022 MCHC (RBC) [Mass/Vol] 33.7 g/dL 32.0-35.0 [facility] MCV Auto (RBC) [Entitic vol] Ordered By: Marianela Oliva on 06-26-2022 MCV (RBC) [Entitic vol] 81.1 fL 80-100 [facility] Monocyte %Ordered By: Marianela Oliva on 06-26-2022 Monocyte % 52 mg/dL 35-149 [facility] Comment on above: TRIG ATP III CLASSIF ICATIONTRIG less than 150 mg/dL NormalTRIG 150-199 mg/dL Borderline highTRIG 200-500 mg/dL High TRIG greater than 500 mg/dL Very highStandard traceable to the Center for Disease Conrtrol and Prevention (CDC) test method. Monocytes Auto (Bld) [#/Vol] Ordered By: Marianela Oliva on 06-26-2022 Monocytes (Bld) [#/Vol] 0.5 10*3/uL 0.0-0.8 [facility] Monocytes/100 WBC Auto (Bld) Ordered By: Marianela Oliva on 06-26-2022 Monocytes/100 WBC (Bld) 11.0 % . [facility] Neutrophils Auto (Bld) [#/Vo l]Ordered By: Marianela Oliva on 06-26-2022 Neutrophils (Bld) [#/Vol] 2.1 10*3/uL 1.8-7.7 [facility] Neutrophils/100 WBC Auto (Bl d)Ordered By: Marianela Oliva on 06-26-2022 Neutrophils/100 WBC (Bld) 49.0 % . [facility] No Panel InformationOrdered By: Marianela Oliva on 06-26-2022 Estimated GFR () > 60 mL/Min [facility] Comment on above: GFR estimated refere nce range: According to KDOQI guidelines, <60 ml/min/1.73m2 is sufficient to diagnose a patient with chronic kidney disease. Nicotine Metabolite Negative Cutoff=25 [facility] Comment on above: Performed at: - L [address] [id number] Director: George García MD, Phone: [phone] Pharmacy Creatinine Clearance (Chem N/A [facility] Platelet mean volume Auto (B ld) [Entitic vol]Ordered By: Marianela Oliva on 06-26-2022 Platelet mean volume (Bld) [Entitic vol] 9.7 fL 6.3-10.7 [facility] Platelets Auto (Bld) [#/Vol] Ordered By: Marianela Oliva on 06-26-2022 Platelets (Bld) [#/Vol] 191 10*3/uL 150-450 [facility] Protein [Mass/volume] in Ser um or PlasmaOrdered By: Marianela Oliva on 06-26-2022 Protein [Mass/Vol] 6.1 g/dL 6.1-7.9 [facility] RBC Auto (Bld) [#/Vol]Ordere d By: Marianela Oliva on 06-26-2022 RBC (Bld) [#/Vol] 4.80 10*6/uL 3.60-5.00 [facility] Serum or plasma alanine carvalho otransferase measurement without P-5'-P (enzymatic activiOrdered By: Marianela Oliva on 06-26-2022 ALT No additional P-5'-P [Catalytic activity/Vol] 17 U/L 10-60 [facility] Serum or plasma albumin/glob ulin mass ratioOrdered By: Marianela Oliva on 06-26-2022 Albumin/Globulin [Mass ratio] 1.7 {ratio} [facility] Serum or plasma alkaline rad sphatase measurement (enzymatic activity/volume)Ordered By: Marianela Oliva on 06-26-2022 ALP [Catalytic activity/Vol] 46 U/L 32-92 [facility] Serum or plasma anion gap de terminationOrdered By: Marianela Oliva on 06-26-2022 Anion gap [Moles/Vol] 8.1 mmol/L 6.0-15.0 [facility] Serum or plasma aspartate am inotransferase measurement (enzymatic activity/volume)Ordered By: Marianela Oliva on 06-26-2022 AST [Catalytic activity/Vol] 18 U/L 10-42 [facility] Serum or plasma calcium richy urement (mass/volume)Ordered By: Marianela Oliva on 06-26-2022 Calcium [Mass/Vol] 9.0 mg/dL 8.2-10.2 [facility] Serum or plasma chloride alma surement (moles/volume)Ordered By: Marianela Oliva on 06-26-2022 Chloride [Moles/Vol] 106 mmol/L 95-114 [facility] Serum or plasma high density lipoprotein (HDL) cholesterol measurementOrdered By: Marianela Oliva on 06-26-2022 Cholesterol in HDL [Mass/Vol] 49 mg/dL 35-85 [facility] Comment on above: HDL CHOL ATP-III CLA SSIFICATION Cardiovascular RiskHDL > or equal to 60 mg/dL LOWHDL < 40 mg/dL HIGH Serum or plasma potassium me asurement (moles/volume)Ordered By: Marianela Oliva on 06-26-2022 Potassium [Moles/Vol] 4.1 mmol/L 3.5-5.1 [facility] Serum or plasma sodium measu rement (moles/volume)Ordered By: Marianela Oliva on 06-26-2022 Sodium [Moles/Vol] 137 mmol/L 136-146 [facility] Serum or plasma total biliru bin measurement (mass/volume)Ordered By: Marianela Oliva on 06-26-2022 Bilirubin [Mass/Vol] 0.6 mg/dL 0.3-1.2 [facility] Serum or plasma total carbon dioxide measurement (moles/volume)Ordered By: Marianela Oliva on 06-26-2022 CO2 [Moles/Vol] 27.0 mmol/L 22.0-30.0 [facility] Serum or plasma total choles terol/high density lipoprotein (HDL) cholesterol mass ratOrdered By: Marianela Oliva on 06-26-2022 Cholesterol.total/Chol esterol in HDL [Mass ratio] 3.6 {ratio} <5.0 [facility] Serum or plasma urea nitroge n measurement (mass/volume)Ordered By: Marianela Oliva on 06-26-2022 Urea nitrogen [Mass/Vol] 14 mg/dL 07-10 [facility] TSH DL <= 0.005 mIU/L QnOrde red By: Marianela Oliva on 06-26-2022 TSH Qn 1.33 m[IU]/L 0.45-5.33 [facility] [employer]stick [employer] Microscopicon Dipstick & Microscopic No [facility] Other Urine 10 SGon 01-07-2022 Albumin DL <= 20 mg/L (U) [Mass/Vol] 100 mg/dL [employer] Other Albumin DL <= 20 mg/L (U) [Mass/Vol] Large [employer] Other pH (U) 6.0 [pH] [employer] Other Urine 10 SG Negative [employer] Other Urine 10 SG 1.030 [employer] Other Urine 10 SG Large [employer] Other Urine 10 SG 0.2 [employer] Other Urine 10 SG Positive [employer] Other Urine Cultureon 01-07-2022 Urine Culture >100,000 [employer] Other Urine Culture <16 Susceptible [employer] Other Urine Culture <8 Susceptible [employer] Other Urine Culture <4 Susceptible [employer] Other Urine Culture <2 Susceptible [employer] Other Urine Culture <1 Susceptible [employer] Other Urine Culture <0.5 Susceptible [employer] Other Urine Culture <32 Susceptible [employer] Other Urine Culture <2/38 Susceptible [employer] Other Cult,Urine,CCon 12-24-2018 Cult,Urine,CC Specimen Description .URINE Special Requests .CLEAN CATCH URINE Culture NO GROWTH Report Status FINAL 12/24/2018 Normal [facility] Comment on above: Performed By: #### C PDAU #### [address] [place] [address] Chlamydia/GC DNA, Uron 12-23 Protein mass conc Negative Normal NEG [facility] Comment on above: Result Comment: NEIS SERIA GONORRHOEAE DNA not detected by nucleic acid amplification. This test is intended for medical purposes only and is not valid for the evaluation of suspected sexual abuse or for other forensic purposes. In certain contexts, culture may be required to meet applicable laws and regulations for diagnosis of C. trachomatis and N. gonorrhoeae infections. Per 2014 CDC recommendations, this test does not include confirmation of positive results by an alternative nucleic acid target. Performed By: #### C PDAU #### [address] [place] [address] Result Comment: CHLA MYDIA TRACHOMATIS DNA not detected by nucleic acid amplification. This test is intended for medical purposes only and is not valid for the evaluation of suspected sexual abuse or for other forensic purposes. In certain contexts, culture may be required to meet applicable laws and regulations for diagnosis of C. trachomatis and N. gonorrhoeae infections. Per 2014 CDC recommendations, this test does not include confirmation of positive results by an alternative nucleic acid target. HIV Ag/Abon 12-23-2018 HIV Ag/Ab NONREACTIVE Normal [facility] Comment on above: Result Comment: No l aboratory evidence of HIV infection. If acute HIV infection is suspected, consider testing for HIV-1 RNA. Performed By: #### C PDAU #### [address] [place] [address] Hep C Abon 12-23-2018 Hep C Ab NONREACTIVE Normal [facility] Comment on above: Result Comment: The hepatitis C procedure used in our laboratory is a Chemiluminescent test specific for three recombinant HCV antigens. A negative anti-HCV result indicates that the antibodies to hepatitis C virus are not present at this time. Individuals with reactive anti-HCV should be considered infected and infectious until proven otherwise. Confirmation of all equivocal or reactive results is recommended by ordering HCV RNA by PCR. Performed By: #### C PDAU #### [address] [place] [address] Profileon 9 T.pallidum Ab Screen NONREACTIVE Normal [facility] Comment on above: Result Comment: T. pallidum antibodies are not detected. There is no serological evidence of infection with T. pallidum (early primary syphilis cannot be excluded). Retest in 2-4 weeks if syphilis is clinically suspect. Performed By: #### C PDAU #### [address] [place], [place] [address] Hep B Surf Ag NONREACTIVE Normal NR [facility] Comment on above: Performed By: #### C PDAU #### [address] [place] [address] Rubella Ab, IgG 52.3 IU/mL Normal [facility] Comment on above: Result Comment: REFERENCE RANGE: <5.0 NON-REACTIVE (non-immune) 5.0 TO 9.9 EQUIVOCAL >=10.0 REACTIVE (immune) Performed By: #### C PDAU #### [address] [place] [address] Profileon 9 Abs. Basophil <0.03 Normal 0.00-0.20 [facility] Comment on above: Performed By: #### C PDAU #### [address] [place] [address] Abs.Imm.Granulocyte 0.04 k/uL Normal 0.00-0.30 [facility] Comment on above: Performed By: #### C PDAU #### [address] [place] [address] Abs.Neutrophil (Seg) 4.44 k/uL Normal 1.50-8.10 [facility] Comment on above: Performed By: #### C PDAU #### [address] [place] [address] Basophils/100 WBC (Bld) 0 % Normal 0-2 [facility] Comment on above: Performed By: #### C PDAU #### [address] [place] [address] Eosinophils #/vol (Bld) 0.08 10*3/uL Normal 0.00-0.44 [facility] Comment on above: Performed By: #### C PDAU #### [address] [place] [address] Eosinophils/100 WBC (Bld) 1 % Normal 1-4 [facility] Comment on above: Performed By: #### C PDAU #### [address] [place] [address] Erythrocyte distribution width Ratio (RBC) 13.2 % Normal 11.8-14.4 [facility] Comment on above: Performed By: #### C PDAU #### [address] [place] [address] Hematocrit Volume Fraction (Bld) 35.3 % Low 36.3-47.1 [facility] Comment on above: Performed By: #### C PDAU #### [address] [place] [address] Hemoglobin mass conc (Bld) 11.4 g/dL Low 11.9-15.1 [facility] Comment on above: Performed By: #### C PDAU #### [address] [place] [address] Immature granulocytes #/vol (Bld) 1 % High 0 [facility] Comment on above: Performed By: #### C PDAU #### [address] [place] [address] Lymphocytes #/vol (Bld) 1.70 10*3/uL Normal 1.10-3.70 [facility] Comment on above: Performed By: #### C PDAU #### [address] [place] [address] Lymphocytes/100 WBC (Bld) 25 % Normal 24-43 [facility] Comment on above: Performed By: #### C PDAU #### [address] [place] [address] MCH Entitic mass (RBC) 26.5 pg Normal 25.2-33.5 [facility] Comment on above: Performed By: #### C PDAU #### [address] [place] [address] MCHC mass conc (RBC) 32.3 g/dL Normal 28.4-34.8 [facility] Comment on above: Performed By: #### C PDAU #### [address] [place] [address] MCV Entitic volume (RBC) 82.1 fL Low 82.6-102.9 [facility] Comment on above: Performed By: #### C PDAU #### [address] [place] [address] Monocytes #/vol (Bld) 0.66 10*3/uL Normal 0.10-1.20 [facility] Comment on above: Performed By: #### C PDAU #### [address] [place] [address] Monocytes/100 WBC (Bld) 10 % Normal 3-12 [facility] Comment on above: Performed By: #### C PDAU #### [address] [place] [address] Neutrophil (Seg) 63 % Normal 36-65 [facility] Comment on above: Performed By: #### C PDAU #### [address] [place] [address] NRBC Automated 0.0 per 100 WBC Normal 0.0 [facility] Comment on above: Performed By: #### C PDAU #### [address] [place] [address] Platelet mean volume Entitic volume (Bld) 10.8 fL Normal 8.1-13.5 [facility] Comment on above: Performed By: #### C PDAU #### [address] [place] [address] Platelets #/vol (Bld) 298 10*3/uL Normal 138-453 [facility] Comment on above: Performed By: #### C PDAU #### [address] [place] [address] RBC #/vol (Bld) 4.30 10*6/uL Normal 3.95-5.11 [facility] Comment on above: Performed By: #### C PDAU #### [address] [place] [address] WBC #/vol (Bld) 6.9 10*3/uL Normal 3.5-11.3 [facility] Comment on above: Performed By: #### C PDAU #### [address] [place] [address] Auto Diff Performed NOT REPORTED Normal [facility] Comment on above: Performed By: #### C PDAU #### [address] [place] [address] Platelets #/vol (Bld) NOT REPORTED Normal [facility] Comment on above: Performed By: #### C PDAU #### [address] [place] [address] RBC morphology finding Nom (Bld) NOT REPORTED Normal [facility] Comment on above: Performed By: #### C PDAU #### [address] [place] [address] WBC Morphology NOT REPORTED Normal [facility] Comment on above: Performed By: #### C PDAU #### [address] [place] [address] Type + Scrnon 12-22 Type + Scrn Negative Normal [facility] Comment on above: Performed By: #### C PDAU #### [address] [place] [address] Toxicology Scree, Urineon Amphetamine(s),Ur Negative Normal NEG [facility] Comment on above: Performed By: #### C PDAU #### [address] [place] [address] Barbiturate(s),Ur Negative Normal NEG [facility] Comment on above: Performed By: #### C PDAU #### [address] [place] [address] Benzodiazepine(s) Negative Normal NEG [facility] Comment on above: Performed By: #### C PDAU #### [address] [place] [address] Buprenorphrine, Ur Negative Normal [facility] Comment on above: Performed By: #### C PDAU #### [address] [place] [address] Cannabinoid(s),Ur Negative Normal [facility] Comment on above: Performed By: #### C PDAU #### [address] [place] [address] Cocaine Metabolite Negative Normal [facility] Comment on above: Performed By: #### C PDAU #### [address] [place] [address] Methadone Ql (U) Negative Normal [facility] Comment on above: Performed By: #### C PDAU #### [address] [place] [address] Methamphetamine, Ur Negative Normal [facility] Comment on above: Performed By: #### C PDAU #### [address] [place] [address] Opiate(s), Ur Negative Normal NEG [facility] Comment on above: Performed By: #### C PDAU #### [address] [place] [address] Oxycodone, Urine Negative Normal NEG [facility] Comment on above: Performed By: #### C PDAU #### [address] [place] [address] Phencyclidine, Ur Negative Normal NEG [facility] Comment on above: Performed By: #### C PDAU #### [address] [place] [address] Protein mass conc (U) Negative Normal NEG [facility] Comment on above: Performed By: #### C PDAU #### [address] [place] [address] Tricyclic antidepressants Screen Ql (U) Negative Normal NEG [facility] Comment on above: Result Comment: Drug screen results are to be used for medical purposes only. All positive results are unconfirmed. Testing for employment or legal uses should be sent to a reference laboratory for confirmation. Performed By: #### C PDAU #### [address] [place] [address] Interpretive Info NOT REPORTED Normal [facility] Comment on above: Performed By: #### C PDAU #### [address] [place] [address] MDMA, Urine NOT REPORTED Normal NEG [facility] Comment on above: Performed By: #### C PDAU #### [address] [place] [address] Coding Summary.on 12-11-2018 Coding Summary. CODING DATE: 019 FINAL [facility] STATUS: Home (Routine DC) PAYOR: [employer] APC DESCRIPTION 5522 Level 2 Imaging without Contrast ADMIT DX: REASON FOR VISIT DX: O26.899 Other specified related conditions, unspecified trimester FINAL DX: PRINCIPAL: O26.899 Other specified related conditions, unspecified trimester SECONDARY: R52 Pain, unspecified R11.0 Nausea PYMT PROC APC STAT DESCRIPTION DOCTOR NAME DATE NOTE: The code number assigned matches the documented diagnosis and / or procedure in the patient's chart. However, the narrative phrase printed from the coding software may appear abbreviated, or result in slightly different terminology. Coded By: Sharon Major CphT Date Saved: 12/11/2018 09:36 am Normal [facility] US 1st Trimesteron 12-09-2018 1st Trimester Exam Date/Time: 12/09/2018 15:15 EST Reason for Exam: PT HAVING OFFICE SEND TO UPDATE DIAGNOSIS Report IMPRESSION: LIVE DICHORIONIC DIAMNIOTIC TWIN INTRAUTERINE , APPROXIMATELY 9 WEEKS 2 DAYS GESTATIONAL AGE. SMALL SITES OF SUBCHORIONIC HEMORRHAGE. NO FREE FLUID OR ABNORMAL ADNEXAL MASS. CLINICAL HISTORY: PT HAVING OFFICE SEND TO UPDATE DIAGNOSIS. Extreme nausea and vomiting. History of molar one year ago. LMP: 10/07/2018. By LMP estimated gestational age is 9 weeks 0 days. COMPARISONS: NONE FINDINGS: Transabdominal/transvagin al ultrasonography of the gravid uterus was performed. There are 2 separate gestational sacs which contain poles and yolk sacs each within the uterine cavity. cardiac motion is seen within both fetuses. This is a dichorionic diamniotic twin . Gestational sac A lies to the left side of the uterine cavity. The pole measures 2.45 cm, corresponding to 9 week 2 day plus/-4 day gestational age. heart rate measures 1 60 bpm. A yolk sac is seen with gestational sac. No gross abnormalities. Gestational sac B lies to the right side of the uterine cavity. The pole measures 2.46 cm in length corresponding to a 9 week 2 day plus/-4 day gestational age. heart rate measures 1 64 bpm. A yolk sac is visualized. No gross abnormality. The amount of amniotic fluid appears normal. The uterus measures 14.9 x 11 x 8 cm with a volume of 688 mL. The cervix is closed and elongated. The maternal ovaries were not visualized. No free fluid is visualized. Beneath the gestational sacs there is a small fluid collection which measures 0.4 x 1.6 cm. To the right of the gestational sac there is a small fluid collection which measures 3.4 x 0.1 cm. These are most likely small site of subchronic hemorrhage. There is no abnormal adnexal mass. FINAL REPORT Dictated: 12/09/2018 3:49 pm Aurelia Mullen MD Signed (Electronic Signature): 12/09/2018 3:49 pm Signed by: Aurelia Mullen MD Transcribed by: DARWIN Technologist: ADARSH Technical Comments LMP : 10/07/18 Exam Date/Time: 12/09/2018 15:15 EST Technical Comments History 4 Para 2 Patient History Prior Complications molar Transabdominal Ultrasound Performed Transvaginal Ultrasound Performed Size = Dates Normal [facility] US Transvaginalon 12-09-2018 US Transvaginal Exam Date/Time: 12/09/2018 15:15 EST Reason for Exam: nausea hx of molar Report Please refer to ultrasound transabdominal first trimester report. 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 This test is not labeled for use as a tumor marker. Performed at [address] [place] [address] ([phone] Performed By: #### C PDAU #### [address] [place] [address] HCG, Quanton 03-15-2018 HCG, Quant 613 IU/L High <5 [facility] Comment on above: Result Comment: Non-preg premeno <=5 Postmeno <=8 Male <=3 If HCG results do not concur with clinical observations, additional testing to confirm result is recommended. This test is not labeled for use as a tumor marker. Performed at [address] [place] [address] ([phone] Performed By: #### C PDAU #### [address] [place] [address] OPERATIVE REPORTon 8 OPERATIVE REPORT [address] [id number] OPERATIVE REPORT PATIENT NAME: NORIS GOETZ : 1990 MED REC NO: [id number] ROOM: ACCOUNT NO: [id number] ADMIT DATE: 03/09/2018 PROVIDER: Chau Sorenson DATE OF PROCEDURE: 03/09/2018 PREOPERATIVE DIAGNOSIS: Strongly suspected molar . POSTOPERATIVE DIAGNOSIS: Strongly suspected molar pending final pathology. SURGICAL PROCEDURES: Dilatation and evacuation. ANESTHESIA: General. ESTIMATED BLOOD LOSS: About 150 mL. COMPLICATIONS OF THE PROCEDURE: None. FINDINGS: Uterus enlarged to about 10-week size, cervix is dilated at least 2 cm, and there are molar vesicles passing from the cervix at the beginning of the procedure. PROCEDURE: The patient was taken to the operating room. It was made certain to type and screen, and type and crossmatch were ordered, and the patient was blood-banded. The patient placed in the dorsal lithotomy position. She did undergo general anesthesia, vaginal prepping, and perineal prepping were thoroughly performed, bladder was drained. With the aid of retractors, the cervix was well visualized and the cervix's anterior lip was grasped with a ring forceps. A #16 suction curette was used and this did withdraw a copious amount of the placental tissue. After no additional tissue was noted, a careful sharp curettage was performed all the way around the endometrial cavity. No additional tissue of any significance was noted, and then one further passing with the #16 suction curette was performed, and this portion of the procedure was completed, the ring forceps removed from the anterior lip of the cervix. Bleeding after the procedure was minimal. Did all sponge and instrument counts, noted to be correct. Of note, she will receive [place] 5/325 for any postoperative cramping, and I have ordered an hCG to be repeated in approximately one week. CHAU SORENSON WH/[id number] Doc#: [id number] CC: Marianela Oliva [facility] Surgical Pathologyon 018 Surgical Pathology (NOTE) [id number] [facility] ANATOMIC PATHOLOGY [address] [place] [id number] SURGICAL PATHOLOGY CONSULTATION Patient Name: NORIS GOETZ Rec: [id number] Path Number: [id number] Collected: 03/09/2018 Received: 03/10/2018 Reported: 03/11/2018 14:53 -- Diagnosis -- DANDC suction tissues: Products of conception, negative for molar changes. Adelfo Cox Electronically Signed Out rdd/03/11/2018 Clinical Information Pre-op Diagnosis: MOLAR (POSSIBLE PER SURGERY) Operative Findings: PRODUCTS OF CONCEPTION Operation Performed: DILATATION AND CURETTAGE SUCTION, DANDE Source of Specimen 1: PRODUCTS OF CONCEPTION Gross Description NORIS GOETZ, PRODUCTS OF CONCEPTION Multiple fragments of pink-garcia soft tissue admixed with blood clots, 7.0 x 6.0 x 1.8 cm in aggregate. No embryo or placental tissue is grossly identified. Cystic structures are not evident. Ice Cutter sections are submitted between sponges in A-H. tm Microscopic Description Most of the submitted tissue consists of blood clot and decidua with foci of necrosis and acute inflammation. Portions of endometrium show gestational change. There are rare immature, small avascular placental villi and a few associated syncytiotrophoblasts. Histologic changes to suggest gestational trophoblastic disease are absent. 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 Performed at [address] [id number] [phone] Performed By: #### U CGP #### [address] [id number] Result Comment: CHLA MYDIA TRACHOMATIS DNA not detected by nucleic acid amplification. HCG, Quanton 03-07-2018 HCG, Quant 30554 IU/L High <5 [facility] Comment on above: Result Comment: Non-preg premeno <=5 Postmeno <=8 Male <=3 If HCG results do not concur with clinical observations, additional testing to confirm result is recommended. This test is not labeled for use as a tumor marker. Performed at [address] [place] [address] Performed By: #### B HCG #### [address] [place] [address] RHIG, Transfuseon 03-07-2018 RHIG, Transfuse Unit Number [id number] /45 Blood Component Type RHIG Unit Division 00 Status of Unit TRANSFUSED Transfusion Status OK TO TRANSFUSE Performed at [address] [place] [address] Normal [facility] Comment on above: Performed By: #### T RHIG #### [address] [place] [address] Cult,Urine,CCon 03-05-2018 Cult,Urine,CC Specimen Description .URINE Performed at [address] [place] [address] Special Requests CCMS Performed at [address] [place] [address] Culture NO SIGNIFICANT GROWTH Performed at [address] [address] Report Status FINAL 03/04/2018 Normal [facility] Comment on above: Performed By: #### C INNA #### [address] [place] [address] HIV Ag/Abon 03-04-2018 HIV Ag/Ab NONREACTIVE Normal NR [facility] Comment on above: Result Comment: No l aboratory evidence of HIV infection. If acute HIV infection is suspected, consider testing for HIV-1 RNA. Performed at [address] [address] Performed By: #### H IVCMB #### [address] [address] Hep C Abon 03-04-2018 Hep C Ab NONREACTIVE Normal NR [facility] Comment on above: Result Comment: The hepatitis C procedure used in our laboratory is a Chemiluminescent test specific for three recombinant HCV antigens. A negative anti-HCV result indicates that the antibodies to hepatitis C virus are not present at this time. Individuals with reactive anti-HCV should be considered infected and infectious until proven otherwise. Confirmation of all equivocal or reactive results is recommended by ordering HCV RNA by PCR. Performed at [address] [address] Performed By: #### A HCV #### [address] [address] Profileon 8 T.pallidum Ab Screen NONREACTIVE Normal [facility] Comment on above: Result Comment: T. pallidum antibodies are not detected. There is no serological evidence of infection with T. pallidum (early primary syphilis cannot be excluded). Retest in 2-4 weeks if syphilis is clinically suspect. Performed at [address] [address] Performed By: #### P RENAT #### [address] [address] Hep B Surf Ag NONREACTIVE Normal [facility] Comment on above: Performed By: #### P RENAT #### [address] [address] Rubella Ab, IgG 65.7 IU/mL Normal [facility] Comment on above: Result Comment: REFERENCE RANGE: <5.0 NON-REACTIVE (non-immune) 5.0 TO 9.9 EQUIVOCAL >=10.0 REACTIVE (immune) Performed By: #### P RENAT #### [address] [address] Toxicology Scree, Urineon Amphetamine(s),Ur Negative Normal NEG [facility] Comment on above: Performed By: #### C PDAU #### [address] [place] [address] Barbiturate(s),Ur Negative Normal NEG [facility] Comment on above: Performed By: #### C PDAU #### [address] [place] [address] Benzodiazepine(s) Negative Normal NEG [facility] Comment on above: Performed By: #### C PDAU #### [address] [place] [address] Buprenorphrine, Ur Negative Normal NEG [facility] Comment on above: Result Comment: Perf ormed at [address] [place] [address] Performed By: #### C PDAU #### [address] [place] [address] Cannabinoid(s),Ur Negative Normal [facility] Comment on above: Performed By: #### C PDAU #### [address] [place] [address] Cocaine Metabolite Negative Normal [facility] Comment on above: Performed By: #### C PDAU #### [address] [place] [address] Methadone Ql (U) Negative Normal NEG [facility] Comment on above: Performed By: #### C PDAU #### [address] [place] [address] Methamphetamine, Ur Negative Normal [facility] Comment on above: Performed By: #### C PDAU #### [address] [place] [address] Opiate(s), Ur Negative Normal NEG [facility] Comment on above: Performed By: #### C PDAU #### [address] [place] [address] Oxycodone, Urine Negative Normal NEG [facility] Comment on above: Performed By: #### C PDAU #### [address] [place] [address] Phencyclidine, Ur Negative Normal NEG [facility] Comment on above: Performed By: #### C PDAU #### [address] [place] [address] Protein mass conc (U) Negative Normal NEG [facility] Comment on above: Performed By: #### C PDAU #### [address] [place] [address] Tricyclic antidepressants Screen Ql (U) Negative Normal NEG [facility] Comment on above: Result Comment: Drug screen results are to be used for medical purposes only. All positive results are unconfirmed. Testing for employment or legal uses should be sent to a reference laboratory for confirmation. Performed By: #### C PDAU #### [address] [place] [address] Profileon 8 Abs. Basophil 0.05 k/uL Normal 0.00-0.20 [facility] Comment on above: Performed By: #### P RENAT #### [facility] [place] [address] Abs.Imm.Granulocyte 0.04 k/uL Normal 0.00-0.30 [facility] Comment on above: Performed By: #### P RENAT #### [facility] [address] [place] [address] Abs.Neutrophil (Seg) 5.60 k/uL Normal 1.50-8.10 [facility] Comment on above: Performed By: #### P RENAT #### [address] [address] Basophils/100 WBC (Bld) 1 % Normal 0-2 [facility] Comment on above: Performed By: #### P RENAT #### [address] [address] Eosinophils #/vol (Bld) 0.18 10*3/uL Normal 0.00-0.44 [facility] Comment on above: Performed By: #### P RENAT #### [address] [address] Eosinophils/100 WBC (Bld) 2 % Normal 1-4 [facility] Comment on above: Performed By: #### P RENAT #### [address] [address] Erythrocyte distribution width Ratio (RBC) 13.0 % Normal 11.8-14.4 [facility] Comment on above: Performed By: #### P RENAT #### [address] [address] Hematocrit Volume Fraction (Bld) 39.1 % Normal 36.3-47.1 [facility] Comment on above: Performed By: #### P RENAT #### [address] [address] Hemoglobin mass conc (Bld) 12.6 g/dL Normal 11.9-15.1 [facility] Comment on above: Performed By: #### P RENAT #### [address] [address] Immature granulocytes #/vol (Bld) 1 % High 0 [facility] Comment on above: Performed By: #### P RENAT #### [address] [address] Lymphocytes #/vol (Bld) 2.18 10*3/uL Normal 1.10-3.70 [facility] Comment on above: Performed By: #### P RENAT #### [address] [address] Lymphocytes/100 WBC (Bld) 25 % Normal 24-43 [facility] Comment on above: Performed By: #### P RENAT #### [address] [address] MCH Entitic mass (RBC) 26.9 pg Normal 25.2-33.5 [facility] Comment on above: Performed By: #### P RENAT #### [facility] [address] [place] [address] MCHC mass conc (RBC) 32.2 g/dL Normal 28.4-34.8 [facility] Comment on above: Performed By: #### P RENAT #### [address] [address] MCV Entitic volume (RBC) 83.4 fL Normal 82.6-102.9 [facility] Comment on above: Performed By: #### P RENAT #### [address] [address] Monocytes #/vol (Bld) 0.79 10*3/uL Normal 0.10-1.20 [facility] Comment on above: Performed By: #### P RENAT #### [address] [address] Monocytes/100 WBC (Bld) 9 % Normal 3-12 [facility] Comment on above: Performed By: #### P RENAT #### [facility] [address] [place] [address] Neutrophil (Seg) 62 % Normal 36-65 [facility] Comment on above: Performed By: #### P RENAT #### [address] [address] NRBC Automated 0.0 per 100 WBC Normal 0.0 [facility] Comment on above: Performed By: #### P RENAT #### [address] [address] Platelet mean volume Entitic volume (Bld) 11.2 fL Normal 8.1-13.5 [facility] Comment on above: Performed By: #### P RENAT #### [address] [address] Platelets #/vol (Bld) 243 10*3/uL Normal 138-453 [facility] Comment on above: Performed By: #### P RENAT #### [address] [address] RBC #/vol (Bld) 4.69 10*6/uL Normal 3.95-5.11 [facility] Comment on above: Performed By: #### P RENAT #### [address] [address] WBC #/vol (Bld) 8.8 10*3/uL Normal 3.5-11.3 [facility] Comment on above: Performed By: #### P RENAT #### [address] [address] Auto Diff Performed NOT REPORTED Normal [facility] Comment on above: Performed By: #### P RENAT #### [address] [address] Platelets #/vol (Bld) NOT REPORTED Normal [facility] Comment on above: Performed By: #### P RENAT #### [address] [address] RBC morphology finding Nom (Bld) NOT REPORTED Normal [facility] Comment on above: Performed By: #### P RENAT #### [address] [address] WBC Morphology NOT REPORTED Normal [facility] Comment on above: Performed By: #### P RENAT #### [address] [id number] Type + Scrnon 03-03 Type + Scrn ABO/Rh(D) B NEGATIV E Antibody Screen NEGATIVE Performed at [address] [place] [address] ([phone] Normal [facility] Comment on above: Performed By: #### P RTYS #### [address] 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 [address] MDMA, Urine NOT REPORTED Normal NEG [facility] Comment on above: Performed By: #### C PDAU #### [address] [place] [address] Hep Bs Abon 01-22-2018 HBV surface Ab Ql (S) Reactive [facility] Comment on above: Result Comment: Non Reactive: Inconsistent with immunity, less than 10 mIU/mL Reactive: Consistent with immunity, greater than 9.9 mIU/mL Performed at: [employer] [id number] PhD Sumeet Merrill Performed By: #### 2 [id number], [id number] #### [facility] [address] [place] [address] Varic IgGon 01-22-2018 VZV IgG IA Qn (S) 574 Immune >165 [facility] Comment on above: Result Comment: Nega tive <135 Equivocal 135 - 165 Positive >165 A positive result generally indicates exposure to the pathogen or administration of specific immunoglobulins, but it is not indication of active infection or stage of disease. Performed at: 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 Normal [facility] Vital Signs Date Time Vital Sign Value Performing Clinician Facility 06-21-2025 09:54-0400 Body mass index (BMI) [Ratio] 35.12 kg/m2 Yasmani Kaylen DO Work Phone: [facility] 06-21-2025 09:54-0400 Body weight 104.78 kg Yasmani Kaylen DO Work Phone: [facility] 06-21-2025 09:54-0400 Diastolic blood pressure 72 mm[Hg] Yasmani Kaylen DO Work Phone: [facility] 06-21-2025 09:54-0400 Systolic blood pressure 124 mm[Hg] Yasmani Kaylen DO Work Phone: [facility] 06-12-2025 08:32-0400 Body height 170.18 cm Marianela Oliva MD Work Phone: [facility] 06-12-2025 08:32-0400 Body mass index (BMI) [Ratio] 36.1 kg/m2 Marianela Oliva MD Work Phone: [facility] 06-12-2025 08:32-0400 Body weight 104.77 kg Marianela Oliva MD Work Phone: [facility] 06-12-2025 08:32-0400 Diastolic blood pressure 81 mm[Hg] Marianela Oliva MD Work Phone: [facility] 06-12-2025 08:32-0400 Heart rate 88 /min Marianela Oliva MD Work Phone: [facility] 06-12-2025 08:32-0400 Respiratory rate 12 /min Marianela Oliva MD Work Phone: [facility] 06-12-2025 08:32-0400 SaO2% (BldA) [Mass fraction] 97 % Marianela Oliva MD Work Phone: [facility] 06-12-2025 08:32-0400 Systolic blood pressure 119 mm[Hg] Marianela Oliva MD Work Phone: [facility] 06-07-2025 10:26-0400 Body mass index (BMI) [Ratio] 35.14 kg/m2 Yasmani Kaylen DO Work Phone: [facility] 06-07-2025 10:26-0400 Body weight 104.83 kg Yasmani Kaylen DO Work Phone: [facility] 06-07-2025 10:26-0400 Diastolic blood pressure 70 mm[Hg] Yasmani Kaylen DO Work Phone: [facility] 06-07-2025 10:26-0400 Systolic blood pressure 112 mm[Hg] Yasmani Kaylen DO Work Phone: [facility] 05-22-2025 11:13-0400 Body mass index (BMI) [Ratio] 34.64 kg/m2 Yasmani Kaylen DO Work Phone: [facility] 05-22-2025 11:13-0400 Body weight 103.33 kg Yasmani Kaylen DO Work Phone: [facility] 05-22-2025 11:13-0400 Diastolic blood pressure 72 mm[Hg] Yasmani Kaylen DO Work Phone: [facility] 05-22-2025 11:13-0400 Systolic blood pressure 110 mm[Hg] Yasmani Kaylen DO Work Phone: [facility] 05-10-2025 08:31-0400 Body mass index (BMI) [Ratio] 34.25 kg/m2 Yasmani Kaylen DO Work Phone: [facility] 05-10-2025 08:31-0400 Body weight 102.17 kg Yasmani Kaylen DO Work Phone: [facility] 05-10-2025 08:31-0400 Diastolic blood pressure 78 mm[Hg] Yasmani Kaylen DO Work Phone: [facility] 05-10-2025 08:31-0400 Systolic blood pressure 124 mm[Hg] Yasmani Kaylen DO Work Phone: [facility] 04-10-2025 10:38-0400 Body mass index (BMI) [Ratio] 33.88 kg/m2 Yasmani Kaylen DO Work Phone: [facility] 04-10-2025 10:38-0400 Body weight 101.06 kg Yasmani Kaylen DO Work Phone: [facility] 04-10-2025 10:38-0400 Diastolic blood pressure 68 mm[Hg] Yasmani Kaylen DO Work Phone: [facility] 04-10-2025 10:38-0400 Systolic blood pressure 108 mm[Hg] Yasmani Kaylen DO Work Phone: [facility] 03-15-2025 10:00-0400 Body mass index (BMI) [Ratio] 33.27 kg/m2 Yasmani Kaylen DO Work Phone: [facility] 03-15-2025 10:00-0400 Body weight 99.25 kg Yasmani Kaylen DO Work Phone: [facility] 03-15-2025 10:00-0400 Diastolic blood pressure 70 mm[Hg] Yasmani Kaylen DO Work Phone: [facility] 03-15-2025 10:00-0400 Systolic blood pressure 110 mm[Hg] Yasmani Kaylen DO Work Phone: [facility] 02-15-2025 09:37-0400 Body mass index (BMI) [Ratio] 32.96 kg/m2 Yasmani Kaylen DO Work Phone: [facility] 02-15-2025 09:37-0400 Body weight 98.34 kg Yasmani Kaylen DO Work Phone: [facility] 02-15-2025 09:37-0400 Diastolic blood pressure 70 mm[Hg] Yasmani Kaylen DO Work Phone: [facility] 02-15-2025 09:37-0400 Systolic blood pressure 110 mm[Hg] Yasmani Kaylen DO Work Phone: [facility] 01-18-2025 09:45-0400 Body mass index (BMI) [Ratio] 32.1 kg/m2 Yasmani Kaylen DO Work Phone: [facility] 01-18-2025 09:45-0400 Body weight 95.77 kg Yasmani Kaylen DO Work Phone: [facility] 01-18-2025 09:45-0400 Diastolic blood pressure 80 mm[Hg] Yasmani Kaylen DO Work Phone: [facility] 01-18-2025 09:45-0400 Systolic blood pressure 100 mm[Hg] Yasmani Kaylen DO Work Phone: [facility] 12-06-2024 09:47-0500 Heart rate 75 /min Marianela Oliva MD Work Phone: [facility] 12-06-2024 09:47-0500 Respiratory rate 16 /min Marianela Oliva MD Work Phone: [facility] 12-06-2024 07:53-0500 Body height 170.18 cm Marianela Oliva MD Work Phone: [facility] 12-06-2024 07:53-0500 Body temperature 98.2 [degF] Marianela Oliva MD Work Phone: [facility] 12-06-2024 07:53-0500 Body weight 90.71 kg Marianela Oliva MD Work Phone: [facility] 12-06-2024 07:53-0500 Diastolic blood pressure 60 mm[Hg] Marianela Oliva MD Work Phone: [facility] 12-06-2024 07:53-0500 SaO2% (BldA) [Mass fraction] 99 % Marianela Oliva MD Work Phone: [facility] 12-06-2024 07:53-0500 Systolic blood pressure 121 mm[Hg] Marianela Oliva MD Work Phone: [facility] 08-15-2024 09:05-0400 Body height 172.72 cm MD Marianela Oliva Work Phone: [facility] 08-15-2024 09:05-0400 Body mass index (BMI) [Ratio] 32.1 kg/m2 MD Marianela Oliva Work Phone: [facility] 08-15-2024 09:05-0400 Body weight 95.7 kg MD Marianela Oliva Work Phone: [facility] 08-15-2024 09:05-0400 Diastolic blood pressure 85 mm[Hg] MD Marianela Oliva Work Phone: [facility] 08-15-2024 09:05-0400 Heart rate 80 /min MD Marianela Oliva Work Phone: [facility] 08-15-2024 09:05-0400 Systolic blood pressure 125 mm[Hg] MD Marianela Oliva Work Phone: [facility] 08-11-2024 09:14-0400 Body height 172.72 cm MD Marianela Oliva Work Phone: [facility] 08-11-2024 09:14-0400 Body mass index (BMI) [Ratio] 31.9 kg/m2 MD Marianela Oliva Work Phone: [facility] 08-11-2024 09:14-0400 Body temperature 97.8 [degF] MD Marianela Oliva Work Phone: [facility] 08-11-2024 09:14-0400 Body weight 95.25 kg MD Marianela Oliva Work Phone: [facility] 08-11-2024 09:14-0400 Diastolic blood pressure 72 mm[Hg] MD Marianela Oliva Work Phone: [facility] 08-11-2024 09:14-0400 Heart rate 99 /min MD Marianela Oliva Work Phone: [facility] 08-11-2024 09:14-0400 Respiratory rate 18 /min MD Marianela Oliva Work Phone: [facility] 08-11-2024 09:14-0400 SaO2% (BldA) [Mass fraction] 96 % MD Marianela Oliva Work Phone: [facility] 08-11-2024 09:14-0400 Systolic blood pressure 106 mm[Hg] MD Marianela Oliva Work Phone: [facility] 05-18-2024 10:41-0400 Body height 173.99 cm MD Marianela Oliva Work Phone: [facility] 05-18-2024 10:41-0400 Body mass index (BMI) [Ratio] 32.2 kg/m2 MD Marianela Oliva Work Phone: [facility] 05-18-2024 10:41-0400 Body weight 97.52 kg MD Marianela Oliva Work Phone: [facility] 05-18-2024 10:41-0400 Diastolic blood pressure 82 mm[Hg] MD Marianela Oliva Work Phone: [facility] 05-18-2024 10:41-0400 Heart rate 72 /min MD Marianela Oliva Work Phone: [facility] 05-18-2024 10:41-0400 Systolic blood pressure 117 mm[Hg] MD Marianela Oliva Work Phone: [facility] 01-07-2022 12:45-0400 Body height 170.18 cm Regina Missler Other [employer] Other 01-07-2022 12:45-0400 Body temperature 98.9 [degF] Regina Missler Other [facility] to[facility] Other 01-07-2022 12:45-0400 Diastolic blood pressure 81 mm[Hg] Regina Missler Other [employer] Other 01-07-2022 12:45-0400 Respiratory rate 18 /min Regina Huddleston Other [employer] Other 01-07-2022 12:45-0400 SaO2% (BldA) [Mass fraction] Regina Huddleston Other [employer] Other 01-07-2022 12:45-0400 Systolic blood pressure 121 mm[Hg] Regina Huddleston Other [employer] Other Encounters Encounter Date Encounter Type Care Provider Facility Start: 06-21-2025 End: 06-21-2025 flow sheet Yasmani Kaylen DO Work Phone: [facility] Comment on above: Third trimester preg lisa ([facility]); 34 weeks gestation of ([facility]); Multigravida of advanced maternal age in third trimester ([facility]) Start: 06-19-2025 End: 06-19-2025 Clinisync Result Encounter Yasmani Kaylen DO Work Phone: [facility] Unsolicited Start: 06-19-2025 End: 06-19-2025 Clinisync Result Encounter Yasmani Kaylen DO Work Phone: [facility] Unsolicited Start: 06-12-2025 End: 06-12-2025 ambulatory Marianela Oliva MD Work Phone: [facility] Work Phone: Start: 06-12-2025 End: 06-12-2025 Patient encounter procedure Marianela Oliva MD -[facility] Work Phone: Start: 06-07-2025 End: 06-07-2025 Bamboo flowsheet Yasmani Kaylen DO Work Phone: [facility] Start: 06-07-2025 End: 06-07-2025 Bamboo flowsheet Yasmani Kaylen DO Work Phone: [facility] Start: 06-07-2025 End: 06-07-2025 flow sheet Yasmani Kaylen DO Work Phone: [facility] Comment on above: Third trimester preg lisa ([facility]); 32 weeks gestation of ([facility]); Multigravida of advanced maternal age in third trimester ([facility]) Start: 06-07-2025 End: 06-07-2025 ambulatory YASMANI KAYLEN Not Available Start: 05-22-2025 End: 05-22-2025 flow sheet Yasmani Kaylen DO Work Phone: [facility] Comment on above: 30 weeks gestation o f ([facility]); Third trimester ([facility]); Antepartum multigravida of advanced maternal age ([facility]); Gestational diabetes mellitus (GDM), antepartum, gestational diabetes method of control unspecified ([facility]) Start: 05-22-2025 End: 05-22-2025 ambulatory YASMANI KAYLEN Not Available Start: 05-10-2025 End: 05-10-2025 Bamboo flowsheet Yasmani Kaylen DO Work Phone: [facility] Start: 05-10-2025 End: 05-10-2025 Bamboo flowsheet Yasmani Kaylen DO Work Phone: [facility] Start: 05-10-2025 End: 05-10-2025 flow sheet Yasmani Kaylen DO Work Phone: [facility] Comment on above: size consisten t with dates, antepartum ([facility]) (Primary Dx); Third trimester ([facility]); 28 weeks gestation of ([facility]); Antepartum multigravida of advanced maternal age ([facility]) Start: 05-10-2025 End: 05-10-2025 ambulatory YASMANI KAYLEN Not Available Start: 04-10-2025 End: 04-10-2025 Bamboo flowsheet Yasmani Kaylen DO Work Phone: [facility] Start: 04-10-2025 End: 04-10-2025 Bamboo flowsheet Yasmani Kaylen DO Work Phone: [facility] Start: 04-10-2025 End: 04-10-2025 flow sheet Yasmani Kaylen DO Work Phone: [facility] Comment on above: Second trimester pre gnancy ([facility]); 24 weeks gestation of ([facility]); Diabetes mellitus screening Start: 04-10-2025 End: 04-10-2025 ambulatory YASMANI KAYLEN Not Available Start: 04-02-2025 End: 04-02-2025 Departed Referred Mario Valle DO Krishna Perry Start: 04-02-2025 End: 04-02-2025 ambulatory Mario Perez [facility] Facility:[facility] Start: 03-15-2025 End: 03-15-2025 flow sheet Yasmani Kaylen DO Work Phone: [facility] Comment on above: 20 weeks gestation o f ; Second trimester ; Anxiety, generalized ([facility]) Start: 03-15-2025 End: 03-15-2025 ambulatory YASMANI KAYLEN Not Available Start: 03-15-2025 End: 03-15-2025 ambulatory YASMANI KAYLEN Not Available Start: 03-14-2025 End: 03-14-2025 External Result Encounter Yasmani Kaylen DO Work Phone: [facility] Unsolicited Start: 03-14-2025 End: 03-14-2025 External Result Encounter Yasmani Kaylen DO Work Phone: [facility] Unsolicited Start: 03-14-2025 End: 03-14-2025 Patient encounter procedure Marianela Oliva MD Work Phone: [facility] Start: 03-14-2025 End: 03-14-2025 ambulatory Marianela Oliva MD Work Phone: [facility] Work Phone: Start: 02-15-2025 End: 02-15-2025 Bamboo flowsheet Yasmani Kaylen DO Work Phone: [facility] Start: 02-15-2025 End: 02-19-2025 Bamboo flowsheet Yasmani Kaylen DO Work Phone: [facility] Start: 02-15-2025 End: 02-19-2025 Clinisync Result Encounter Yasmani Kaylen DO Work Phone: [facility] Unsolicited Start: 02-15-2025 End: 02-16-2025 External Result Encounter Yasmani Kaylen DO Work Phone: [facility] Unsolicited Start: 02-15-2025 Non-patient / Non-visit Marianela Oliva MD [facility] Phone[facility] Work Phone: Start: 02-15-2025 End: 02-15-2025 Patient encounter procedure Yasmani Kaylen DO Work Phone: [facility] Work Phone: Start: 02-15-2025 End: 02-15-2025 Periodic preventive med est patient 18-39 yrs Yasmani Kaylen DO Work Phone: [facility] Comment on above: Well woman exam with routine gynecological exam; Vaginal discharge; Exposure to STD; 16 weeks gestation of ; Second trimester ; Screening, , for anatomic survey; Sterilization consult; Glucose found in urine on examination Start: 02-15-2025 End: 02-15-2025 ambulatory YASMANI KAYLEN Not Available Start: 01-18-2025 End: 01-18-2025 Bamboo flowsheet Yasmani Kaylen DO Work Phone: [facility] Start: 01-18-2025 End: 01-18-2025 Bamboo flowsheet Yasmani Kaylen DO Work Phone: [facility] Start: 01-18-2025 End: 01-18-2025 flow sheet Yasmani Kaylen DO Work Phone: [facility] Comment on above: First trimester preg lisa; 12 weeks gestation of ; Antepartum multigravida of advanced maternal age Start: 01-18-2025 End: 01-18-2025 ambulatory YASMANI KAYLEN Not Available Start: 12-27-2024 End: 12-27-2024 Patient encounter procedure Marianela Oliva MD Work Phone: [facility] Start: 12-27-2024 End: 12-27-2024 ambulatory Marianela Oliva MD Work Phone: [facility] Work Phone: Start: 12-21-2024 End: 12-21-2024 ambulatory YASMANI KAYLEN Not Available Start: 12-07-2024 Non-patient / Non-visit Marianela Oliva MD Work Phone: [facility] Work Phone: Start: 12-06-2024 End: 12-06-2024 Emergency department patient visit Marianela Oliva MD Work Phone: [facility] Work Phone: Start: 12-05-2024 End: 12-05-2024 Telephone encounter Yasmanikelly Khano DO Work Phone: [facility] Start: 08-15-2024 Patient encounter status Pooja Oliva MD Work Phone: [facility] Start: 08-15-2024 End: 08-15-2024 ambulatory MD Marianela Oliva Work Phone: [facility] Work Phone: Start: 08-15-2024 End: 08-15-2024 Patient encounter procedure MD Marianela Oliva Work Phone: [facility] Work Phone: Start: 08-11-2024 End: 08-11-2024 ambulatory MD Marianela Oliva Work Phone: [facility] Work Phone: Start: 08-11-2024 End: 08-11-2024 Patient encounter procedure MD Marianela Oliva Work Phone: [facility] [place] Work Phone: Start: 08-01-2024 End: 08-01-2024 ambulatory MD Marianela Oliva Work Phone: [facility] Work Phone: Start: 08-01-2024 End: 08-01-2024 Departed Referred MD Marianela Oliva Work Phone: [facility] [place] Work Phone: Start: 05-23-2024 End: 05-23-2024 Patient encounter procedure MD Marianela Oliva Work Phone: [facility]Ultrasound [facility] [place] Work Phone: Start: 05-23-2024 End: 05-23-2024 ambulatory MD Marianela Oliva Work Phone: [facility] Work Phone: Start: 05-18-2024 End: 05-18-2024 ambulatory MD Marianela Oliva Work Phone: [facility] Work Phone: Start: 05-18-2024 End: 05-18-2024 Patient encounter procedure MD Marianela Oliva Work Phone: [facility] Work Phone: Start: 05-17-2024 End: 05-17-2024 Departed Referred MD Marianela Oliva Work Phone: [facility]Pill[facility] [place] Start: 05-17-2024 End: 05-17-2024 ambulatory MD Marianela Oliva Work Phone: [facility] Work Phone: Start: 07-12-2023 End: 07-12-2023 ambulatory MD Marianela Oliva Work Phone: [facility] Work Phone: Start: 07-12-2023 End: 07-12-2023 Departed Referred MD Marianela Oliva Work Phone: [facility]-Employee Benefit Screening Start: 02-23-2023 End: 02-23-2023 ambulatory MD Marianela Oliva Work Phone: [facility] Work Phone: Start: 02-23-2023 End: 02-23-2023 Patient encounter procedure MD Marianela Oliva Work Phone: [facility] Work Phone: Start: 02-04-2023 End: 02-04-2023 ambulatory Marianela Oliva Other [employer] Other Start: 02-04-2023 Office outpatient vi sit 15 minutes Marianela Olvia [facility] Start: 02-04-2023 Telephone encounter Marianela Oliva [facility] Start: 01-29-2023 End: 01-29-2023 ambulatory Marianela Oliva Other [employer] Other Start: 01-29-2023 Telephone encounter Marianela Oliva [facility] Start: 12-15-2022 End: 12-15-2022 Departed Referred MD Marianela Oliva Work Phone: [facility] [place] Work Phone: Start: 12-04-2022 End: 12-04-2022 ambulatory Marianela Oliva Other [employer] Other Start: 12-04-2022 Telephone encounter Marianela Oliva [facility] Start: 11-10-2022 End: 11-10-2022 ambulatory MD Marianela Oliva Work Phone: [facility] Work Phone: Start: 11-10-2022 End: 11-10-2022 Departed Referred MD Marianela Oliva Work Phone: [facility] [place] Work Phone: Start: 08-07-2022 End: 08-07-2022 ambulatory Regina Huddleston Other [employer] Other Start: 08-07-2022 Telephone encounter Regina [facility] Start: 06-26-2022 End: 06-26-2022 ambulatory MD Marianela Oliva Work Phone: [facility] Work Phone: Start: 06-26-2022 End: 06-26-2022 Departed Referred MD Marianela Oliva Work Phone: [facility]-Employee Benefit Screening Start: 01-07-2022 End: 01-07-2022 ambulatory Regina Huddleston Other [employer] Other Start: 01-07-2022 Patient encounter procedure Regina [facility] Start: 12-22-2018 End: 12-23-2018 Patient encounter procedure [facility] Start: 12-09-2018 End: 12-10-2018 Patient encounter procedure [facility] Facility:[facility] Start: 06-14-2018 Patient encounter MARIANELA OLIVA Fac ility:[facility] Start: 03-22-2018 End: 03-23-2018 Patient encounter procedure [facility] Start: 03-15-2018 End: 03-16-2018 Patient encounter procedure [facility] Start: 03-09-2018 End: 03-09-2018 Patient encounter procedure [facility] Start: 03-07-2018 End: 03-08-2018 Patient encounter procedure [facility] Start: 03-03-2018 End: 03-04-2018 Patient encounter procedure [facility] Start: 03-03-2018 End: 03-03-2018 Patient encounter procedure CHAU SORENSON [facility] Start: 01-20-2018 End: 01-21-2018 Patient encounter procedure Macario Paganjacquelin Facility:[facility] Procedures Date Procedure Procedure Detail Performing Clinician Start: 06-21-2025 Urnls dip stick/tabl et rgnt non-auto w/o micrscp Yasmani Kaylen DO Work Phone: Start: 06-19-2025 US OB BPP W NON-STRESS Yasmani Kaylen DO Work Phone: Start: 06-07-2025 Urnls dip stick/tabl et rgnt non-auto w/o micrscp Yasmani Kaylen DO Work Phone: Start: 05-22-2025 Urnls dip stick/tabl et rgnt non-auto w/o micrscp Yasmani Kaylen DO Work Phone: Start: 05-10-2025 Urnls dip stick/tabl et rgnt non-auto w/o micrscp Yasmani Kaylen DO Work Phone: Start: 04-10-2025 Urnls dip stick/tabl et rgnt non-auto w/o micrscp Yasmani Kaylen DO Work Phone: Start: 03-15-2025 Urnls dip stick/tabl et rgnt non-auto w/o micrscp Yasmani Kaylen DO Work Phone: Start: 03-14-2025 Complete blood count with white cell differential, automated Yasmani Kaylen DO Work Phone: Start: 02-15-2025 RECURRENT VAGINITIS (HTRX) Yasmani Kaylen DO Work Phone: Start: 02-15-2025 Urnls dip stick/tabl et rgnt non-auto w/o micrscp Yasmani Kaylen DO Work Phone: Start: 02-15-2025 IGP,APTIMA HPV,AGE GDLN Yasmani Kaylen DO Work Phone: Start: 01-18-2025 Urnls dip stick/tabl et rgnt non-auto w/o micrscp Yasmani Kaylen DO Work Phone: Start: 12-27-2024 Urine culture Marianela tracy MD Work Phone: Start: 12-27-2024 Antibody screen Mario Khalil [facility] Comment on above: Order Comment: NONFA STING.JKW Result Comment: PERF ORMED BY: [facility] [address] [place] [address] PATHOLOGIST TEST CAR DRIVER LEÓN GARCIA M.D. Start: 12-06-2024 Diagnostic ultrasoun d of gravid uterus Marianela Oliva MD Work Phone: Start: 08-11-2024 Plain chest X-ray MD Heavenly Oliva Work Phone: Start: 05-23-2024 Ultrasonography of limb MD Marianela Oliva Work Phone: Start: 02-23-2023 Screening mammograph y of bilateral breasts MD Marianela Oliva Work Phone: Start: 01-07-2022 Piperacillin/tazobactam Regina Huddleston Other Start: 12-22-2018 Antibody hiv-1&hiv-2 single result CHAU SORENSON Start: 12-22-2018 Hepatitis c antibody WE ARTIS BRITTNI Start: 12-22-2018 C.TRACHOMATIS N.GONO RRHOEAE DNA, URINE CHAU SORENSON Start: 12-22-2018 Obstetric panel CHAU SORENSON Start: 12-22-2018 TYPE AND SCREEN CHAU SORENSON Start: 12-22-2018 Culture bacterial quanttative colony count urine CHAU SORENSON Start: 12-22-2018 Drug screen, qualitate/multi CHAU SORENSON Start: 03-22-2018 Gonadotropin chorion ic quantitative CHAU SORENSON Start: 03-15-2018 Gonadotropin chorion ic quantitative CHAU SORENSON Start: 03-09-2018 TYPE AND SCREEN CHAU SORENSON Start: 03-09-2018 SURGICAL PATHOLOGY DENAE SORENSON Start: 03-09-2018 DISCHARGE PATIENT JUAN DAVIDJAKE Phelan BRITTNI Start: 03-09-2018 ASSESS [facility] Start: 03-09-2018 BEDREST CHAU [facility] Start: 03-09-2018 Continuous pulse oximetry CHAU SORENSON Start: 03-09-2018 INITIATE OXYGEN THER APY PROTOCOL CHAU SORENSON Start: 03-09-2018 NEURO/VASCULAR CHECKS W DENG SORENSON Start: 03-09-2018 DIET NPO, NOW CHAU HE DGES Start: 03-09-2018 MEASURE WEIGHT CHAU FLEMING Start: 03-09-2018 NOTIFY PHYSICIAN (SPECIFY) CHAU SORENSON Start: 03-09-2018 NURSING COMMUNICATION W DENG SORENSON Start: 03-09-2018 PLACE INTERMITTENT P NEUMATIC COMPRESSION DEVICE CHAU SORENSON Start: 03-09-2018 REMOVE AND REPLACE T ED HOSE DAILY CHAU SORENSON Start: 03-09-2018 VITAL SIGNS CHAU HERNA[facility]Z Start: 03-09-2018 FULL CODE CHAU [facility] Start: 03-09-2018 VERIFY INFORMED CONSENT CHAU SORENSON Start: 03-07-2018 Gonadotropin chorion ic quantitative CHAU SORENSON Start: 03-03-2018 C.TRACHOMATIS N.GONO RRHOEAE DNA, URINE CHAU SORENSON Start: 03-03-2018 HEPATITIS C ANTIBODY WE ARTIS SORENSON Start: 03-03-2018 HIV SCREEN CHAU [facility]Z Start: 03-03-2018 PROFILE I JUAN DAVIDL SHANITA SORENSON Start: 03-03-2018 TYPE AND SCREEN CHAU SORENSON Start: 03-03-2018 RHOGAM INJECTION ONLY W DENG SORENSON Start: 03-03-2018 URINE CULTURE CLEAN CATCH CHAU SORENSON Start: 03-03-2018 URINE DRUG SCREEN, COMPREHENSIVE CHAU SORENSON Plan of Treatment Date Care Activity Detail Author Start: 08-28-2025 End: 08-28-2025 ambulatory [facility] Start: 07-12-2025 End: 07-12-2025 Patient encounter procedure 07/12/2025 9:10 AM EDT Routine [facility] [address] [place] [id number] Lanie Mendez NP [address] [place] [id number] [facility] Start: 07-05-2025 End: 07-05-2025 Patient encounter procedure 07/05/2025 9:50 AM EDT Routine [facility] [address] [place] [phone] Yasmani Abdullahi, DO [address] [place] [address] [facility] Start: 06-21-2025 End: 06-21-2025 Patient encounter procedure 06/21/2025 9:40 AM EDT Routine [facility] [address] [place] [phone] Yasmani Abdullahi, DO [address] [place] [address] [facility] Start: 06-21-2025 End: 06-21-2025 Professional / ancillary services management 06/21/2025 9:00 AM EDT Ancillary Procedure [facility] [address] [place] [phone] [facility] Start: 06-07-2025 End: 12-08-2025 US biophysical profile w non stress test US biophysical profile w non stress test Imaging Routine Multigravida of advanced maternal age in third trimester ([facility]) Expected: 06/07/2025 (Approximate), Expires: 12/08/2025 [facility] Work Phone: Comment on above: Expected: 06/07/2025 (Approximate), Expires: 12/08/2025 Start: 06-07-2025 End: 06-07-2025 Patient encounter procedure [facility] Comment on above: Arrived Start: 05-22-2025 End: 05-22-2025 Patient encounter procedure 05/22/2025 11:00 AM EDT Routine [facility] [address] [place] [phone] Yasmani Abdullahi, DO [address] [place] [address] [facility] Start: 05-22-2025 End: 05-22-2025 Professional / ancillary services management 05/22/2025 10:30 AM EDT Ancillary Procedure [facility] [address] [place] [address] [facility] Start: 05-10-2025 End: 09-10-2025 US for US OB follow up transabdominal approach Imaging Routine Antepartum multigravida of advanced maternal age ([facility]) Expected: 05/10/2025, Expires: 09/10/2025 [facility] Work Phone: Comment on above: Expected: 05/10/2025 , Expires: 09/10/2025 Start: 05-10-2025 End: 05-10-2025 Patient encounter procedure [facility] Comment on above: Arrived Start: 04-10-2025 End: 04-10-2026 CBC panel - Blood by Automated count CBC Lab Routine Diabetes mellitus screening Expected: 04/10/2025 (Approximate), Expires: 04/10/2026 [facility] Work Phone: Comment on above: Expected: 04/10/2025 (Approximate), Expires: 04/10/2026 Start: 04-10-2025 End: 04-10-2026 Measurement of glucose 1 hour after glucose challenge for glucose tolerance test Glucose tolerance, 1 hour Lab Routine Diabetes mellitus screening Expected: 04/10/2025 (Approximate), Expires: 04/10/2026 [facility] Comment on above: Expected: 04/10/2025 (Approximate), Expires: 04/10/2026 Start: 04-10-2025 End: 04-10-2025 Patient encounter procedure [facility] Comment on above: Arrived Start: 03-15-2025 End: 03-15-2025 Patient encounter procedure 03/15/2025 9:50 AM EDT Routine [facility] [address] [place] [address] Yasmani Abdullahi, DO [address] [facility] [place] [address] [facility] Start: 03-15-2025 End: 03-15-2025 Professional / ancillary services management 03/15/2025 8:30 AM EDT Ancillary Procedure [facility] [address] [place] [phone] [facility] Start: 02-15-2025 End: 03-18-2025 Alpha fetoprotein, maternal Alpha fetoprotein, maternal Lab Routine 16 weeks gestation of Second trimester Expected: 02/15/2025 (Approximate), Expires: 03/18/2025 [facility] Comment on above: Expected: 02/15/2025 (Approximate), Expires: 03/18/2025 Start: 02-15-2025 End: 05-18-2025 US for US OB 14+ weeks anatomy scan Imaging Routine Screening, , for anatomic survey Expected: 02/15/2025, Expires: 05/18/2025 [facility] Comment on above: Expected: 02/15/2025 , Expires: 05/18/2025 Start: 02-15-2025 End: 02-15-2025 Patient encounter procedure [facility] Comment on above: Arrived Start: 01-18-2025 End: 01-18-2025 Patient encounter procedure 01/18/2025 8:40 AM EDT Routine [facility] [address] [place] [phone] Yasmani Abdullahi, DO [address] [place] [address] Arrived [facility] Comment on above: Arrived Start: 12-27-2024 Bacteria identified in Urine by Culture Urine Culture [facility] Start: 12-27-2024 Rubella IgG measurement [facility] Start: 12-27-2024 Urine culture [facility] Start: 12-27-2024 [facility] Start: 12-21-2024 End: 12-21-2024 ambulatory 12/21/2024 1:30 PM EST Initial [facility] [address] [place] [address] [facility] Start: 12-21-2024 End: 12-21-2024 Professional / ancillary services management 12/21/2024 1:00 PM EST Ancillary Procedure [facility] OB [address] [place] [address] [facility] OB Start: 12-06-2024 Diagnostic ultrasoun d of gravid uterus [facility] Start: 07-12-2023 [facility] CHLAMYDIA TRACHOMATI S (GENITO/STI) CHLAMYDIA TRACHOMATIS (GENITO/STI) Lab Routine Exposure to STD 16 weeks gestation of Second trimester Ordered: 02/15/2025 [facility] Comment on above: Ordered: 02/15/2025 Cytology Cervical or vaginal smear or scraping study Pap Smear Pathology and Cytology Routine Well woman exam with routine gynecological exam Ordered: 02/15/2025 [facility] Comment on above: Ordered: 02/15/2025 Hepatitis B virus surface Ag [Presence] in Serum or Plasma by Immunoassay [facility] Hepatitis C virus Ig G Ab [Presence] in Serum or Plasma by Immunoassay [facility] HIV 1+2 Ab+HIV1 p24 Ag [Presence] in Serum or Plasma by Immunoassay [facility] Human papilloma viru s DNA [Presence] in Unspecified specimen by Probe with amplification HPV DNA probe, amplified Microbiology Routine Well woman exam with routine gynecological exam Ordered: 02/15/2025 [facility] Comment on above: Ordered: 02/15/2025 Measurement of gluco se 1 hour after glucose challenge for glucose tolerance test GTT, 1 hour Lab Routine Antepartum multigravida of advanced maternal age Ordered: 01/18/2025 [facility] Work Phone: Comment on above: Ordered: 01/18/2025 Neisseria gonorrhoea e DNA [Presence] in Unspecified specimen by CORBY with probe detection Neisseria gonorrhea DNA probe, direct Lab Routine Exposure to STD 16 weeks gestation of Second trimester Ordered: 02/15/2025 [facility] Comment on above: Ordered: 02/15/2025 Patient Education Stomach Pain i n Early [facility] Work Phone: Patient referral [facility] Work Phone: Reagin Ab [Presence] in Serum by RPR [facility] SUREAB(R) ADVANCED VAGINITIS PLUS, TMA SUREAB(R) ADVANCED VAGINITIS PLUS, TMA Pathology and Cytology Routine Vaginal discharge Exposure to STD 16 weeks gestation of Second trimester Ordered: 02/15/2025 [facility] Work Phone: Comment on above: Ordered: 02/15/2025 [facility] Immunizations Immunization Date Immunization Notes Care Provider Fa cility 06-23-2019 tetanus toxoid, redu christen diphtheria toxoid, and acellular pertussis vaccine, adsorbed MD Marianela Oliva Work Phone: [facility] Payers Date Payer Category Payer Unknown [id number] 2024 Self-pay [id number] 2018 Unknown [id number] 2018 Private Health Insurance 2014 Unknown [id number] 1989 Unknown [id number] 1989 Unknown [id number] 1989 Unknown [id number] 40.1.104496.3.579.2.173 1989 Unknown [id number] 2.16.8 40.1.591376.3.579.2.173 1989 Unknown [id number] 2.16.8 40.1.971843.3.579.2.173 1989 Unknown [id number] 2.16.8 40.1.639595.3.579.2.173 1989 Unknown [id number] 2.16.8 40.1.395036.3.579.2.173 1989 Unknown [id number] 2.16.8 40.1.471716.3.579.2.173 1989 Unknown [id number] 2.16.8 40.1.198954.3.579.2.173 1989 Unknown [id number] 2.16.8 40.1.751276.3.579.2.9 1989 Unknown [id number] 2.16.8 40.1.142258.3.579.2.9 1989 Unknown [id number] 2.16.8 40.1.076051.3.579.2.1258 1989 Unknown [id number] 2.16.8 40.1.418887.3.579.2.1258 1989 Unknown [id number] 2.16.8 40.1.311899.3.579.2.1258 1989 Unknown [id number] 2.16.84 0.1.865380.3.579.2.9 1989 Unknown [id number] 2.16.84 0.1.304496.3.579.2.1258 1989 Unknown [id number] 2.16.84 0.1.094381.3.579.2.9 1989 Unknown [id number] 2.16.84 0.1.097822.3.579.2.1258 1989 Unknown [id number] 2.16.84 0.1.040115.3.579.2.1259 1989 Unknown [id number] 2.16.84 0.1.185688.3.579.2.1259 1959 Private Health Insurance [facility] [id number] Unknown [id number] 2.16.8 40.1.151873.3.579.2.531 Unknown [id number] 2.16.8 40.1.111343.3.579.2.531 Unknown [id number] 2.16.8 40.1.906048.3.579.2.531 Unknown [id number] 2.16.8 40.1.719549.3.579.2.531 Unknown [id number] 2.16.8 40.1.437151.3.579.2.531 Unknown [id number] 2.16.8 40.1.419379.3.579.2.531 Unknown [id number] 2.16.8 40.1.693175.3.579.2.531 Unknown [id number] 2.16.8 40.1.876615.3.579.2.531 Social History Date Type Detail Facility Unknown if ever smoked [facility] Other Start: 01-27-2024 End: 12-21-2024 Sex Assigned At [facility] Other Start: 06-22-2019 End: 01-26-2024 Tobacco smoking status NYIS Never smoked tobacco (finding) [facility] Start: 1990 Sex Assigned At Female [facility] Start: 01-26-2024 Tobacco use and exposure Smokeless tobacco non-user [facility] Start: 01-27-2024 End: 06-21-2025 Alcoholic beverage intake Current drinker of alcohol (finding) [facility] Start: 01-27-2024 End: 12-21-2024 History of Social function [facility] Start: 01-27-2024 Gender identity Identifies as female gender (finding) [facility] Start: 01-27-2024 Sexual orientation Heterosexual (finding) [facility] Start: 11-04-2024 [facility] Start: 12-06-2024 End: 03-15-2025 Sex Female (finding) [facility] Medical Equipment Procedure Code Equipment Code Equipment Origin al Text Equipment Identifier Dates 1 strip by In Vi tro route Daily Use in the morning prior to breakfast, 1 hour after each meal for a total of 4times daily. [id number] Start: 02-15-2025 End: 03-17-2025 1 each by In Vit ro route Daily Use to check FSBS four times daily [id number] Start: 02-15-2025 End: 03-17-2025 Use as instructed [id number] Start: 04-09-2025 End: 04-09-2026 1 each by In Vit ro route Daily [id number] Start: 04-09-2025 End: 05-09-2025 Clinical Notes 12-16-2021 to 06-21-2025 Eugenia Bridges, [facility] - 06/21/2025 9:40 AM EDMegan Bridges, [facility] - 06/07/2025 9:50 AM PEGGYAnnel Mckeon, [facility] - 05/22/2025 11:00 AM Gracie Bridges, [facility] - 05/10/2025 8:40 AM EDT Note Date & Type Note Facility 06-21-2025 History of Presen t illness Narrative Reason for Appointment: Patient ID: Noris Goetz is a 35 y.o. female who [...] nursing note reviewed. Exam conducted with a advertising internship present. Vitals: Estimated body mass index is 35.12 kg/m as calculated from the following: Height as of 12/15/22: 5' 8 . Weight as of this encounter: 231 lb. BP: 124/72 Patient's last menstrual period was 10/21/2024. ASSESSMENT & PLAN ICD-10-CM 1. Third trimester ([facility]) Z34.93 POCT urinalysis dipstick manually resulted 2. 34 weeks gestation of ([facility]) Z3A.34 3. Multigravida of advanced maternal age in third trimester ([facility]) O09.523 Patient presents today for a routine obstetrics appointment. Patient is currently 34w5d with a Estimated Date of Delivery: 07/28/25. Patient had growth scan today and fetus is 92%tile. Discussed possible timing of delivery with size, but will monitor throughout remainder of and discuss further in the next few weeks. Patient to return to clinic in 2 weeks. Patient will reach out to her HR and obtain contact info for [...] Yasmani Abdullahi DO documented in this encounter [facility] 06-07-2025 History of Presen t illness Narrative Reason for Appointment: Patient ID: Noris Goetz is a 35 y.o. female who [...] Past Medical History: Diagnosis Date Anxiety Melanoma ([facility]) 2021 HISTORY PAST MEDICAL HISTORY SOCIAL HISTORY [...] nursing note reviewed. Exam conducted with a advertising internship present. Vitals: Estimated body mass index is 35.14 kg/m as calculated from the following: Height as of 12/15/22: 5' 8 . Weight as of this encounter: 231 lb 1.9 oz. BP: 112/70 Patient's last menstrual period was 10/21/2024. ASSESSMENT & PLAN ICD-10-CM 1. Third trimester ([facility]) Z34.93 POCT urinalysis dipstick manually resulted 2. 32 weeks gestation of ([facility]) Z3A.32 POCT urinalysis dipstick manually resulted 3. Multigravida of advanced maternal age in third trimester ([facility]) O09.523 US biophysical profile w non stress test Patient presents today for a routine obstetrics appointment. Patient is currently 32w5d with a Estimated Date of Delivery: 07/28/25. Patient given orders for NST/BPP's to be started until delivery. Orders will also be sent to [facility] Scheduling and [facility] FBC. Patient to return to clinic in 2 weeks. Documented by Eugenia Bridges LPN on behalf of: Yasmani Abdullahi DO documented in this encounter [facility] 05-22-2025 History of Presen t illness Narrative Reason for Appointment: Patient ID: Noris Goetz is a 35 y.o. female who [...] nursing note reviewed. Exam conducted with a advertising internship present. Vitals: Estimated body mass index is 34.64 kg/m as calculated from the following: Height as of 12/15/22: 5' 8 . Weight as of this encounter: 227 lb 12.8 oz. BP: 110/72 Patient's last menstrual period was 10/21/2024. ASSESSMENT & PLAN ICD-10-CM 1. 30 weeks gestation of ([facility]) Z3A.30 POCT urinalysis dipstick manually resulted 2. Third trimester ([facility]) Z34.93 POCT urinalysis dipstick manually resulted 3. Antepartum multigravida of advanced maternal age ([facility]) O09.529 POCT urinalysis dipstick manually resulted 4. Gestational diabetes mellitus (GDM), antepartum, gestational diabetes method of control unspecified ([facility]) O24.419 POCT urinalysis dipstick manually resulted Return OB: Patient presents today for a routine obstetrics appointment. Patient is currently 30w3d . Patient states she is doing well but has complaints of being tired due to current . Patient has verbalizes frequent movement. labor precautions was discussed/given and patient was instructed to perform kick counts three times a day. Orders Placed This Encounter Procedures POCT urinalysis dipstick manually resulted Follow Up: Patient is to return to office in 2 week for routine OB appointment. Documented by Annel Mckeon LPN on behalf of: Yasmani Abdullahi DO documented in this encounter [facility] 05-10-2025 History of Presen t illness Narrative Reason for Appointment: Patient ID: Noris Goetz is a 35 y.o. female who [...] Constitutional: Appearance: Normal appearance. She is well-developed. Genitourinary: Vulva normal. Cardiovascular: Rate and Rhythm: Normal rate and [...] nursing note reviewed. Exam conducted with a advertising internship present. Vitals: Estimated body mass index is 34.25 kg/m as calculated from the following: Height as of 23: 5' 8 . Weight as of this encounter: 225 lb 4 oz. BP: 124/78 Patient's last menstrual period was 10/21/2024. ASSESSMENT & PLAN ICD-10-CM 1. size consistent with dates, antepartum ([facility]) Z34.90 US OB follow up transabdominal approach 2. Third trimester ([facility]) Z34.93 POCT urinalysis dipstick manually resulted 3. 28 weeks gestation of ([facility]) Z3A.28 Patient presents today for a routine obstetrics appointment. Patient is currently 28w5d with a Estimated Date of Delivery: 07/28/25. Patient to return to clinic in 2 weeks for return OB and Growth US. Patient is going to [facility] after this appointment to receive her Rhogam injection. Patient will call office with any concerns or questions in the meantime. Documented by Eugenia Bridges LPN on behalf of: Yasmani Abdullahi DO documented in this encounter [facility] 04-10-2025 History of Presen t illness Narrative Reason for Appointment: Patient ID: Noris Goetz is a 35 y.o. female who [...] mouth sertraline (ZOLOFT) 100 mg, Oral, Daily TRUEplus Lancets 30G misc 1 each, In Vitro, Daily ALLERGIES No Known Allergies PROBLEMS Active [...] nursing note reviewed. Exam conducted with a advertising internship present. Vitals: Estimated body mass index is 33.88 kg/m as calculated from the following: Height as of 12/15/22: 5' 8 . Weight as of this encounter: 222 lb 12.8 oz. BP: 108/68 Patient's last menstrual period was 10/21/2024. ASSESSMENT & PLAN ICD-10-CM 1. Second trimester ([facility]) Z34.92 POCT urinalysis dipstick manually resulted 2. 24 weeks gestation of ([facility]) Z3A.24 POCT urinalysis dipstick manually resulted 3. Diabetes mellitus screening Z13.1 CBC Glucose tolerance, 1 hour CBC Glucose tolerance, 1 hour Return OB: Patient presents today for a routine obstetrics appointment. Patient is currently 24w3d . Patient states she is doing well but has complaints of being tired due to current . Patient has verbalizes frequent movement. labor precautions was discussed/given. Orders Placed This Encounter Procedures CBC Glucose tolerance, 1 hour POCT urinalysis dipstick manually resulted Follow Up: Patient is to return to office in 2 week for routine OB appointment. Documented by Annel Mckeon LPN on behalf of: Yasmani Abdullahi DO documented in this encounter [facility] 03-15-2025 History of Presen t illness Narrative Reason for Appointment: Patient ID: Noris Goetz is a 34 y.o. female who presents for Routine Visit Patient presents today for Return OB appointment. MEDICATIONS Current Outpatient Medications Medication Instructions acetaminophen (Tylenol) 500 MG tablet Take by mouth Alcohol Swabs (Alcohol Prep Pad) 70 % pads 1 Pad, Topical, Daily, Use four times daily to check FSBS. Blood Glucose Monitoring Suppl (D-Care Glucometer) w/Device kit 1 kit, Does not apply, Daily, Use four times daily to check FSBS. In the morning prior to breakfast & 1 hour after each meal for a total of 4times daily. Glucose Blood (Blood Glucose Test) strip 1 strip, In Vitro, Daily, Use in the morning prior to breakfast, 1 hour after each meal for a total of 4times daily. Lancets Ultra Thin misc 1 each, In Vitro, Daily, Use to check FSBS four times daily MV-Min-Fe Fum-FA-DHA ( 1 PO) Take by mouth sertraline (ZOLOFT) 50 mg, Daily ALLERGIES No Known Allergies PROBLEMS Active Ambulatory Problems Diagnosis Date Noted No Active Ambulatory Problems Resolved Ambulatory Problems Diagnosis Date Noted No Resolved Ambulatory Problems Past Medical History: Diagnosis Date Anxiety Melanoma (CMS/HCC) 2021 HISTORY PAST MEDICAL HISTORY SOCIAL HISTORY Past Medical History: Diagnosis Date Anxiety Melanoma (CMS/HCC) 2021 on chest Social History Tobacco Use [...] nursing note reviewed. Exam conducted with a advertising internship present. Vitals: Estimated body mass index is 33.27 kg/m as calculated from the following: Height as of 12/15/22: 5' 8 . Weight as of this encounter: 218 lb 12.8 oz. BP: 110/70 Patient's last menstrual period was 10/21/2024. ASSESSMENT & PLAN ICD-10-CM 1. 20 weeks gestation of Z3A.20 POCT urinalysis dipstick manually resulted 2. Second trimester Z34.92 POCT urinalysis dipstick manually resulted Patient presents today for a routine obstetrics appointment. Patient is currently 20w5d with a Estimated Date of Delivery: 07/28/25. Patient obtained anatomy scan prior to today's appointment. Patient has previously deferred MFM referral. Glucose levels will be monitored through local office at this time. Patient voiced that she is having an increase in anxiety. Informed patient that Zoloft will be increased to 100mg daily. Patient also had CBC drawn yesterday. Patient was provided with recreation facility manager email to send FSBS results & more forms we given to patient to track sugars. Patient to RTC in 4 weeks for routine OB care. Documented by Eugenia Bridges LPN on behalf of: Yasmani Abdullahi DO documented in this encounter [facility] 02-15-2025 History of Presen t illness Narrative Reason for Appointment: Patient ID: Noris Goetz is a 34 y.o. female who presents for No chief complaint on file. Patient presents today for Annual Exam. and Return OB appointment. MEDICATIONS Current Outpatient Medications Medication Instructions acetaminophen (Tylenol) 500 MG tablet Take by mouth MV-Min-Fe Fum-FA-DHA ( 1 PO) Take by mouth sertraline (ZOLOFT) 50 mg, Daily ALLERGIES No Known Allergies PROBLEMS Active Ambulatory Problems Diagnosis Date Noted No Active Ambulatory Problems Resolved Ambulatory Problems Diagnosis Date Noted No Resolved Ambulatory Problems Past Medical History: Diagnosis Date Anxiety Melanoma (CMS/HCC) 2021 HISTORY PAST MEDICAL HISTORY SOCIAL HISTORY Past Medical History: Diagnosis Date Anxiety Melanoma (CMS/HCC) 2021 on chest Social History Tobacco Use [...] Constitutional: Appearance: Normal appearance. She is well-developed. Genitourinary: Vulva normal. Breasts: Breasts are soft. Right: Normal. Left: Normal. Cardiovascular: Rate and Rhythm: Normal rate and [...] nursing note reviewed. Exam conducted with a advertising internship present. Vitals: Estimated body mass index is 32.96 kg/m as calculated from the following: Height as of 12/15/22: 5' 8 . Weight as of this encounter: 216 lb 12.8 oz. BP: 110/70 Patient's last menstrual period was 10/21/2024. ASSESSMENT & PLAN ICD-10-CM 1. Well woman exam with routine gynecological exam Z01.419 Pap Smear HPV DNA probe, amplified 2. Vaginal discharge N89.8 SURESWAB(R) ADVANCED VAGINITIS PLUS, TMA 3. Exposure to STD Z20.2 SURESWAB(R) ADVANCED VAGINITIS PLUS, TMA CHLAMYDIA TRACHOMATIS (GENITO/STI) Neisseria gonorrhea DNA probe, direct 4. 16 weeks gestation of Z3A.16 POCT urinalysis dipstick manually resulted SURESWAB(R) ADVANCED VAGINITIS PLUS, TMA CHLAMYDIA TRACHOMATIS (GENITO/STI) Neisseria gonorrhea DNA probe, direct Alpha fetoprotein, maternal Alpha fetoprotein, maternal 5. Second trimester Z34.92 POCT urinalysis dipstick manually resulted SURESWAB(R) ADVANCED VAGINITIS PLUS, TMA CHLAMYDIA TRACHOMATIS (GENITO/STI) Neisseria gonorrhea DNA probe, direct Alpha fetoprotein, maternal Alpha fetoprotein, maternal 6. Screening, , for anatomic survey Z36.89 US OB 14+ weeks anatomy scan 7. Sterilization consult Z30.09 8. Glucose found in urine on examination R81 Return OB/Annual Exam: Patient presents today for an annual exam/routine obstetrics appointment. Patient is currently 16w5d . Patient is doing well and states she has no complaints. Pap/cultures was obtained without difficulty and patient was given msAFP order to have obtained. Patient defers MFM referral at this time and Anatomy Scan order given. Patient stopped ASA due to noticing increase in bruising, patient will try medication again. Patient desires bilateral salpingectomy after delivery & if is needed patient desires BS to be done at same time of . IOL 07/23/25 if patient does not delivery prior to then. Patient to check FSBS four times daily and bring logs to office. Orders Placed This Encounter Procedures HPV DNA probe, amplified US OB 14+ weeks anatomy scan CHLAMYDIA TRACHOMATIS (GENITO/STI) Neisseria gonorrhea DNA probe, direct Alpha fetoprotein, maternal POCT urinalysis dipstick manually resulted Follow Up: Patient is to return to our office in 4 weeks for routine OB appointment Documented by Eugenia Bridges LPN on behalf of: Yasmani Abdullahi DO documented in this encounter [facility] 01-18-2025 History of Presen t illness Narrative Reason for Appointment: Patient ID: Noris Goetz is a 34 y.o. female who presents for Routine Visit Patient presents today for Return OB appointment. MEDICATIONS Current Outpatient Medications Medication Instructions acetaminophen (Tylenol) 500 MG tablet Oral MV-Min-Fe Fum-FA-DHA ( 1 PO) Oral sertraline (ZOLOFT) 50 mg, Oral, Daily ALLERGIES No Known Allergies PROBLEMS Active Ambulatory Problems Diagnosis Date Noted No Active Ambulatory Problems Resolved Ambulatory Problems Diagnosis Date Noted No Resolved Ambulatory Problems Past Medical History: Diagnosis Date Anxiety Melanoma (CMS/HCC) 2021 HISTORY PAST MEDICAL HISTORY SOCIAL HISTORY Past Medical History: Diagnosis Date Anxiety Melanoma (CMS/HCC) 2021 on chest Social History Tobacco Use Smoking status: Never Smokeless tobacco: Never Substance Use Topics Alcohol use: Yes Drug use: Never FAMILY HISTORY No family history on file. SURGICAL HISTORY Past Surgical History: Procedure Laterality Date CYST REMOVAL 2022 VAGINAL DELIVERY x4 REVIEW OF SYSTEMS Review of Systems: Review of Systems All other systems reviewed and are negative. OBJECTIVE Objective: Physical Exam Constitutional: Appearance: Normal [...] nursing note reviewed. Exam conducted with a advertising internship present. Vitals: Estimated body mass index is 31.99 kg/m as calculated from the following: Height as of 12/15/22: 5' 8 . Weight as of 12/25/24: 210 lb 6.4 oz. BP: Patient's last menstrual period was 10/21/2024. ASSESSMENT & PLAN ICD-10-CM 1. First trimester Z34.91 POCT urinalysis dipstick manually resulted 2. 12 weeks gestation of Z3A.12 3. Antepartum multigravida of advanced maternal age O09.529 GTT, 1 hour New OB: Patient presents today for 1st time obstetrics appointment with provider. Patient is currently 12w5d . Patients history has been reviewed in great detail including any potential risks. Patient stated she currently has no complaints. Expectations throughout regarding labs, ultrasounds, and appointments have been discussed with the patient in detail. It was reiterated that the patient is to drink 6-8 glasses of water a day, eat 6 small meals a day, do not consume raw or undercooked meat, and stay away from [facility]. Patient has been consulted regarding any further do's and don'ts of . Patient voiced understanding and all questions and concerns were answered. Patient has history of Melanoma. Discussed early 1 hour GTT and patient to take 81 mg Baby Aspirin daily. Patient will also have growth scans routinely later on in the and will discuss NST/BPP to start at either 32 weeks or 36 weeks. All recommendations are due to AMA. Discussed level II ultrasound through MFM and patient defers at this time and will decide later on if needed. Orders Placed This Encounter Procedures GTT, 1 hour POCT urinalysis dipstick manually resulted Discussed with patient that if she desires she is able to call office and setup sneak peek if she feels concern. Follow Up: Patient is to return in 4 weeks for routine OB appointment. Documented by Eugenia Bridges LPN on behalf of: Yasmani Abdullahi DO documented in this encounter [facility] 12-05-2024 Telephone encount er Note Pt is OB and scheduled for intake in December. She called with complaints of kidney pain and left abd pain. Per nurse patient advised to be evaluated at Hospital[facility]. She also had questions about Zoloft during . Pt transferred to nurse to discuss. [facility] 12-05-2024 Miscellaneous Notes Formattin g of this note might be different from the original. 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 She called with complaints of kidney pain and left abd pain. Per nurse patient advised to be evaluated at Hospital. [facility]. She also had questions about Zoloft during . Pt transferred to nurse to discuss. documented in this encounter [facility] 02-04-2023 Evaluation note Encounter Date Diagnosis Assessment Notes Jan, Family history of BRCA gene mutation (ICD-10 - Z84.81) Discussed family history. Pt would like to be checked. She has weighed the risks and benefits and states she would be interested in a B mastectomy if indicated. After calling [employer], the decision was to fax lab order to [facility]. Order handwritten. Jan, Family history of breast cancer (ICD-10 - Z80.3) Mamm ordered. Jan, Screening mammogram for breast cancer (ICD-10 - Z12.31) [facility] Other 10-21-2022 Evaluation note* Encounter Date Diagnosis Assessment Notes Treatment Notes Treatment Clinical Notes Jul, Strep pharyngitis (ICD-10 - J02.0) [facility] Other 03-23-2022 Evaluation note* Encounter Date Diagnosis Assessment Notes Treatment Notes Treatment Clinical Notes Dec, Urinary frequency (ICD-10 - R35.0) Dec, UTI (lower urinary tract infection) (ICD-10 - N39.0) Presentation consistent with urinary tract infection. Encouraged patient to increase noncarbonated and noncaffeinated fluid intake. Antibiotic sent to pharmacy. Instructed to take complete course even if feeling better. Encouraged good perineal hygiene and urinating after intercourse. Urine sent for culture, will call if antibiotic needs to be changed due to susceptibility. Patient to seek immediate medical attention if fevers, chills, significant pain, or inability to urinate. Patient verbalizes understanding and agrees with plan of care. This note was completed with the assistance of voice recognition software for dictation purposes. Please excuse any grammatical errors that were not corrected during the review process. [facility] Other 03-01-2022 History general Narrative - Reported* Type Description Date Medical History post pardom depression Surgical History wisdom teeth Surgical History D&C Surgical History melanoma excision 12/16/21 Hospitalization History child x4 [facility] Other 03-01-2022 History general Narrative - Reported* Type Description Date Medical History post pardom depression Medical History Anxiety, generalized Surgical History wisdom teeth Surgical History D&C Surgical History melanoma excision 12/16/21 Hospitalization History child x4 Hospitalization History see surgical hx [employer] Other Evaluation noteNo assessment information available [facility] Work Phone: Evaluation [facility]No [facility] Other Evaluation note* Diagnosis Onset Date Resolution Status Mass of skin of chest acute [facility] Work Phone: Evaluation note* Diagnosis Onset Date Resolution Status Mass of skin of chest acute Right lower lobe pneumonia n [facility] [facility] Work Phone: Evaluation note* Diagnosis First trimester state, incidental 12 weeks gestation of Antepartum multigravida of advanced maternal age [facility] Diagnosis Well woman exam with routine gynecological exam Routine gynecological examination Vaginal discharge Leukorrhea, not specified as infective Exposure to STD 16 weeks gestation of Second trimester state, incidental Screening, , for anatomic survey Encounter for anatomic survey Sterilization consult Other general counseling and advice for contraceptive management Glucose found in urine on examination Glycosuria [facility] Diagnosis 20 weeks gestation of Second trimester state, incidental Anxiety, generalized (CMS/HCC) [facility] Diagnosis Second trimester (HHS-HCC) state, incidental 24 weeks gestation of (HHS-HCC) Diabetes mellitus screening Screening for diabetes mellitus documented in this [facility]* Diagnosis size consistent with dates, antepartum (HHS-HCC)- Primary Third trimester (HHS-HCC) state, incidental 28 weeks gestation of (HHS-HCC) Antepartum multigravida of advanced maternal age (HHS-HCC) documented [facility]* Diagnosis 30 weeks gestation of (HHS-HCC) Third trimester (HHS-HCC) state, incidental Antepartum multigravida of advanced maternal age (HHS-HCC) Gestational diabetes mellitus (GDM), antepartum, gestational diabetes method of control unspecified (HHS-HCC) [facility]* Diagnosis Third trimester (HHS-HCC) state, incidental 32 weeks gestation of (HHS-HCC) Multigravida of advanced maternal age in third trimester (HHS-HCC) documented [facility]* Diagnosis Third trimester (HHS-HCC) state, incidental 34 weeks gestation of (HHS-HCC) Multigravida of advanced maternal age in third trimester (HHS-HCC) [facility] Additional Instructions If your symptoms return/worsen or you develop any further concerns or symptoms please see your doctor or return to the emergency department immediately. As discussed please be sure to follow-up with your [facility] [facility] and primary care provider. If you develop worsening pain, vaginal bleeding, fevers, other symptoms as we discussed please return the emergency department for reevaluation.[facility] Work Phone: Reason for referral (narrative)No reason for referral [facility]: Summary Purpose Family History 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 Condition Age at Onset Recorded Date/T neno Not Specified No pertinent family history Unknown Advance Directives Advance Directive Response Recorded Date/ Time Advance Directives No January 27 2:48pm Advance Directive Response Recorded Date/ Time Advance Directives No January 27 3:48pm Chief Complaint and Reason for Visit Chief Complaint Pillars Chief Complaint Z12.4 Z11.51 Screening Chief Complaint Pillars lump on left shoulder Reason for Visit [place] of skin [place] ches t Chief Complaint Pillars lump on left shoulder R22.2 Reason for Visit [place] t Chief Complaint Pillars lump on left shoulder R22.2 mass increasing in size D49.2 Cough, congestion R05.9 - Cough, unspecified Reason for Visit [place] [facility] Chief Complaint Pillars lump on left shoulder R22.2 mass increasing in size D49.2 Cough, congestion R05.9 - Cough, unspecified Pillars/FMLA paperwork Reason for Visit [place] Right lower lobe pneumonia Chief Complaint Admit Date lt side pain, 7 wks preg December 06, 2024 7:46am Chief Complaint Admit Date lt side pain, 7 wks preg December 06, 2024 7:46am Amb Documentation December 07, 2024 10:14am N92.6, Z34.90 December 27, 2024 7:5 1am Chief Complaint Admit Date N92.6, Z34.90 December 27, 2024 7:5 1am Z86.2 March 14, 2025 10:49 am Chief Complaint Admit Date Z86.2 March 14, 2025 10:49 am Pillars April 02, 2025 6:56 am Pillars June 12, 2025 8: 31am Additional Source Comments INFORMATION SOURCE (unrecogn ized section and content) DATE CREATED AUTHOR 04/05/2018 [facility] DATE CREATED AUTHOR AUTHOR'S ORGANIZ ATION 06/15/2018 [facility] DATE CREATED AUTHOR AUTHOR'S ORGANIZ ATION 12/15/[address] [facility] DATE CREATED AUTHOR AUTHOR'S ORGANIZ ATION 12/25/2018 [facility] DATE CREATED AUTHOR AUTHOR'S ORGANIZ ATION 04/03/2025 [facility] DATE CREATED AUTHOR AUTHOR'S ORGANIZ ATION 06/09/2025 [facility] EPIC REASON FOR VISIT (unrecogniz ed section and content) Reason Comments Routine Visit Care Teams (unrecognized sec tion and content) Team Status: Inactive Member Role Status Dates Marianela Oliva MD Primary Care Provider Active Mario Perez DO [facility] Attending Provider Active Team Status: Active Member Role Status Dates Marianela Oliva MD Primary Care Provider Active Team Status: Inactive Member Role Status Dates Marianela Oliva MD Primary Care Provider Active Derrick Wilson MD Attending Provider Active Team Status: Inactive Member Role Status Dates Marianela Oliva MD Primary Care Provider, Attending Leonard cardenas Active Team Status: Inactive Member Role Status Dates Marianela Oliva MD Primary Care Provider Active Marissa Garcia DO Attending Provider Active Team Status: Inactive Member Role Status Dates Marianela Oliva MD Primary Care Provider Active Start: May 17, 2024 End: May 17, 2024 Mario Perez DO LIZZ[facility] Attending Provider Active Start: May 17, 2024 End: May 17, 2024 Team Status: Inactive Member Role Status Dates Marianela Oliva MD Primary Care Provide r, Attending Provider Active Start: May 18, 2024 End: May 18, 2024 Team Status: Inactive Member Role Status Dates Marianela Oliva MD Primary Care Provide r, Attending Provider Active Start: May 23, 2024 End: May 23, 2024 Team Status: Inactive Member Role Status Dates Derrick Wilson MD Attending Provider Active Start: August 01, 2024 End: August 01, 2024 Team Status: Inactive Member Role Status Dates Derrick Wilson MD Attending Provider Active Start: August 01, 2024 End: August 01, 2024 PHYSICIAN NO FAMILY Primary Care Provider Active Start: August 01, 2024 End: August 01, 2024 Team Status: Inactive Member Role Status Dates Melissa Reddy APRN Attending Provider Active Sta rt: August 11, 2024 End: August 11, 2024 Marianela Oliva MD Primary Care Provider Active Start: August 11, 2024 End: August 11, 2024 Team Status: Active Member Role Status Dates Marianela Oliva MD Primary Care Provider Active Start: August 11, 2024 Melissa Reddy APRN Attending Provider Active Sta rt: August 11, 2024 Team Status: Inactive Member Role Status Dates Marianela Oliva MD Primary Care Provider Active Start: August 11, 2024 End: August 11, 2024 Melissa Reddy APRN Attending Provider Active Sta rt: August 11, 2024 End: August 11, 2024 Team Status: Inactive Member Role Status Dates Marianela Oliva MD Primary Care Provide r, Attending Provider Active Start: August 15, 2024 End: August 15, 2024 Hr Generalist 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 Specialty Start Date End Date Marianela Oliva MD [address] [place] [address] PCP - General Family Medicine 01/27/24 Team Status: Inactive Member Role Status Dates Marianela Oilva MD Primary Care Provider Active Start: December 06, 2024 End: December 06, 2024 Jose Forman DO Emergency Provider Active Start: December 06, 2024 End: December 06, 2024 Team Status: Active Member Role Status Dates Marianela Oliva MD Primary Care Provider Active Start: December 07, 2024 Ivis Garcia CMA Attending Provider Active Start: December 07, 2024 Team Status: Inactive Member Role Status Dates Marianela Oliva MD Primary Care Provider Active Start: December 27, 2024 End: December 27, 2024 Yasmani Abdullahi DO Attending Provider Active Start : December 27, 2024 End: December 27, 2024 Hr Generalist 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 Specialty Start Date End Date Marianela Oliva MD [address] [facility] [place] [address] PCP - General Family Medicine 01/27/24 Hr Generalist 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 Specialty Start Date End Date Marianela Oliva MD [address] [place] [address] PCP - General Family Medicine 01/27/24 Hr Generalist 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 Specialty Start Date End Date Marianela Oliva MD PCP - General Family Medicine 01/27/24 Hr Generalist 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 Specialty Start Date End Date Marianela Oliva MD PCP - General Family Medicine 01/27/24 Hr Generalist 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 Specialty Start Date End Date Marianela Oliva MD PCP - General Family Medicine 01/27/24 Hr Generalist 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 Specialty Start Date End Date Marianela Oliva MD PCP - General Family Medicine 01/27/24 Hr Generalist 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 Specialty Start Date End Date Marianela Oliva MD PCP - General Family Medicine 01/27/24 Team Status: Active Member Role Status Dates Marianela Oliva MD Primary Care Provider Active Start: February 15, 2025 Yasmani Abdullahi DO Attending Provider Active Start : February 15, 2025 Team Status: Inactive Member Role Status Dates Marianela Oliva MD Primary Care Provider Active Start: March 14, 2025 End: March 14, 2025 Yasmani Abdullahi DO Attending Provider Active Start : March 14, 2025 End: March 14, 2025 Hr Generalist 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 Specialty Start Date End Date Marianela Oliva MD [address] [place] [address] PCP - [facility] 01/27/24 Hr Generalist 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 Specialty Start Date End Date Marianela Oliva MD [address] [place] [address] PCP - General Family Medicine 01/27/24 Hr Generalist 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 Specialty Start Date End Date Marianela Oliva MD [address] [place] [address] PCP - General Family Medicine 01/27/24 Hr Generalist 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 Specialty Start Date End Date Marianela Oliva MD [address] [place] [address] PCP - General Family [facility] 01/27/24 Hr Generalist 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 Specialty Start Date End Date Marianela Oliva MD [address] [place] [address] PCP - General Family Medicine 01/27/24 Team Status: Inactive Member Role Status Dates Marianela Oliva MD Primary Care Provider Active Start: April 02, 2025 End: April 02, 2025 Mario Loera [facility] DO [facility] Attending Provider Active Start: April 02, 2025 End: April 02, 2025 Team Status: Inactive Member Role Status Dates Marianela Oliva MD Primary Care Provider Active Start: June 12, 2025 End: June 12, 2025 Mairanela Oliva MD Attending Provider Active St art: June 12, 2025 End: June 12, 2025 Hr Generalist 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 Specialty Start Date End Date Marianela Oliva MD [address] [place] [address] PCP - General Family Medicine 01/27/24 Goals (unrecognized section and content) Goals may be documented in a n alternate section FOR RECORDS PERTAINING TO PATIENTS WHO ARE OR HAVE BEEN ENROLLED IN A CHEMICAL DEPENDENCY/SUBSTANCEABUSE PROGRAM, SOME INFORMATION MAY BE OMITTED. This clinical summary was aggregated from multiple sources. Caution should be exercised in using it in the provision of clinical care. This summary normalizes information from multiple sources, and as a consequence, information in this document may materially change the coding, format and clinical context of patient data. In addition, data may be omitted in some cases. CLINICAL DECISIONS SHOULD BE BASED ON THE PRIMARY CLINICAL RECORDS. [facility] [email or web address] [facility]. provides no warranty or guarantee of the accuracy or completeness of information in this document.
[2025-06-22 17:40] VITALS: BP 121/78; PULSE 80
== END 2025-06-22 18:11 | disposition home or self-care (01) ==
LOC: US 17:13 → FBC 17:15
PROVIDERS: Family Provider Family Medicine; PCP Family Medicine; Visit Provider Obstetrics & Gynecology
DX: O09.523 Supervision of elderly multigravida, third trimester (principal); Z3A.34 34 weeks gestation of pregnancy
CPT/HCPCS: 76818

== ENCOUNTER 2025-06-27 07:30 | Outpatient (OUT) | payer OTHER, SELFPAY ==
--- NOTE | 2025-06-27 07:33 | US_ITS ---
[facility] [place] [address] Patient Name: NORIS SAUCEDA MRN: [id number] date: 1990 Sex: F Assigned Patient Location: [place] Current Patient Location: Accession/Order Number: [id number] Exam Date: 06/27/2025 07:35 Report Date: 06/27/2025 08:36 At the request of: MARBELLA OMER DO Procedure: US OB BPP w non-stress BIOPHYSICAL PROFILE: CLINICAL INFORMATION: Multigravida of advanced maternal age COMPARISON: 06/22/2025 There is a single live intrauterine gestation in cephalic presentation. The reported gestational age is 35 weeks 4 days The heart rate [id number] beats per minute. FINDINGS: TONE: 1 or more episodes of activity extension and flexion of extremity or opening and closing of the hand [Y] 2/2 GROSS BODY MOVEMENTS: 3 or more discrete body or limb movements [Y] 2/2 BREATHING MOVEMENTS: 1 or more episodes of breathing lasting at least 30 seconds [Y] 2/2 GRAYSON: A single deepest vertical pocket of amniotic fluid greater than 2 cm [Y] 2/2 GRAYSON: 17.0 cm . This is in upper normal range. Total score: / US/US OB BPP w non-stress IMPRESSION: NORMAL BIOPHYSICAL PROFILE Impression dictated by: Annel Barnhart M.D. 06/27/2025 8:36 AM Dictation Location: Front Desk HQ Electronically authenticated by: [id number] Y Date: 06/27/2025 08:36
--- OUTSIDE RECORDS SUMMARY | 2025-06-27 07:34 | XMS_ITS | CCD ---
Author Organization [facility] Care Team Providers Care Executive Team Leader Name Role Phone OLIVA, MARIANELA E Unavailable Unavailable OLIVA, MARIANELA E Unavailable Unavailable OLIVA, MARIANELA E Unavailable Unavailable Macario Jarvis Attending Unavailable OLIVA, MARIANELA~[phone] UNKNOWN Primary Care Unavailable HEDGES, CHAU Admitting Unavailable HEDGES, CHAU Attending Unavailable HEDGES, CHAU Referring Unavailable OLIVA, MARIANELA~[phone] UNKNOWN Primary Care Unavailable HEDGES, CHAU W [...] Care Provider DO Mario Perez Attending Provider [phone] MD Marianela Oliva Primary Care Provider MD Derrick Wilson Attending Provider Marianela Oliva Unavailable MD Marianela Oliva Primary Care Provider [phone] DO Marissa Garcia Attending Provider MD Marianela Oliva Attending Provider MD Marianela Oliva Primary Care Provider Kuns, DO Mario P Attending Provider MD Marianela Oliva Primary Care Provider Kuns - [facility], DO Mario P Attending Provider MD Marianela Oliva Attending Provider MD Derrick Wilson Attending Provider NO FAMILY, PHYSICIAN Primary Care Provider Unava ilable SAUL Reddy Attending Provider Marianela Oliva MD Primary Care Provider Marianela Oliva MD Primary Care Provider Dasia SANTAMARIA Jose Luana Emergency Provider [phone] Marianela Oliva MD Primary Care Provider Dasia SANTAMARIA Jose Luana Emergency Provider [phone] Yasmani Abdullahi DO Attending Provider [phone] Marianela Oliva MD Primary Care Provider Marianela Oliva MD Primary Care Provider Marianela Oliva MD Primary Care Provider [phone] Kuns - [facility], Mario P Admitting Unavailable Kuns - [facility], Mario P Attending Unavailable Oliva, Marianela E Primary Care Unavailable NO FAMILY, PHYSICIAN Primary Care Unavailable Derrick Wilson Admitting Unavailable Derrick Wilson Attending Unavailable Melissa Reddy Admitting Unavailable Melissa Reddy Attending Unavailable Oliva, Marianela E Primary Care Unavailable Oliva, Marianela E Primary Care Unavailable Ronnell, Marianela E Attending Unavailable Oliva, Marianela E Admitting Unavailable Kaylen, Yasmani Attending Unavailable Oliva, Marianela E Primary Care Unavailable Kaylen, Yasmani Admitting Unavailable Kaylen, Yasmani Admitting Unavailable Kaylen, Yasmani Attending Unavailable Oliva, Marianela E Primary Care Unavailable Dasia, Jose A Attending Unavailable Oliva, Marianela E Primary Care Unavailable Keister, Jose A Admitting Unavailable Kuns - [facility], Mario P Admitting Unavailable Kuns - [facility], Mario P Attending Unavailable Oliva, Marianela E Primary Care Unavailable Marianela Oliva MD Primary Care Provider Yasmani Abdullahi DO Attending Provider [facility] Mario SANTAMARIA Attending Provider Marianela Oliva MD Attending Provider KAYLEN, YASMANI Attending Unavailable KAYLEN, YASMANI Attending Unavailable KAYLEN, YASMANI Referring Unavailable KAYLEN, YASMANI Attending Unavailable KAYLEN, YASMANI Attending Unavailable KAYLEN, YASMANI Attending Unavailable KAYLEN, YASMANI Referring Unavailable KAYLEN, YASMANI Attending Unavailable KAYLEN, YASMANI Attending Unavailable KAYLEN, YASMANI Attending Unavailable Medications Current Medications Medication Drug Class(es) Dates [...] (True Metrix Air Glucose Meter) w/Device kit (15 sources) Start: 04-09-2025 Blood Glucose Monitoring Suppl (True Metrix Air Glucose Meter) w/Device kit Indications: Gestational diabetes mellitus (GDM), antepartum, gestational diabetes method of control unspecified ([facility]) 1 kit in the morning and 1 [...] Drug Class(es) Dates Sig (Normalized) Sig (Original) [id number] 200 actuat albuterol 0.09 mg/actuat metered dose [...] oral tablet (6 sources) alpha-Adrenergic Agonist, Uncompetitive G-oowtgm-W-aspartat e Receptor Antagonist, Sigma-1 Agonist Start: 08-11-2024 [...] Test Name Value Interpretation Reference Range Facility US OB BPP W NON-STRESS on 06-22-2025 [place] [address] Ultrasound Report Signed Patient: NORIS GOETZ MR#: [id number] : 1990 Acct:[id number] Age/Sex: 35 / F ADM Date: 06/22/25 Loc: US Attending Dr: Yasmani Abdullahi D.O. Ordering Physician: Yasmani Abdullahi D.O. Date of Service: 06/22/25 Procedure(s): US OB BPP w non-stress Accession Number(s): [id number] cc: Marianela Oliva M.D.; Yasmani Abdullahi D.O. [place] [id number] Patient Name: NORIS GOETZ MRN: [id number] date: 1990 Sex: F Assigned Patient Location: [facility] Current Patient Location: Accession/Order Number: [id number] Exam Date: 06/22/2025 17:18 Report Date: 06/22/2025 21:47 At the request of: YASMANI ABDULLAHI DO Procedure: US OB BPP w non-stress Ultrasound biophysical profile HISTORY: Multigravida. Advanced maternal age. Adequate breathing movement, gross body movement, tone and amniotic fluid volume for total score of 8 out of 8. The amniotic fluid index is 15.2cm within normal limits. The heart rate 150 bpm. US/US OB BPP w non-stress IMPRESSION: Adequate ultrasound biophysical profile Impression dictated by: Alfonzo Flores M.D. 06/22/2025 9:47 PM Dictation Location: [employer] Electronically authenticated by: [id number] Y Date: 06/22/2025 21:47 Dictated By: Alfonzo Flores D.O. Signed By: 06/22/252149 DD/ 46 TD/TT: Mica Miner: [facility] Radiology Radiologjoni blake MD - 06/22/2025 [place] [address] Ultrasound Report Signed Patient: NORIS GOETZ MR#: [id number] : 1990 Acct:[id number] Age/Sex: 35 / F ADM Date: 06/22/25 Loc: US Attending Dr: Yasmani Abdullahi D.O. Ordering Physician: Yasmani Abdullahi D.O. Date of Service: 06/22/25 Procedure(s): US OB BPP w non-stress Accession Number(s): [id number] cc: Marianela Oliva M.D.; Yasmani Abdullahi D.O. [place] [address] Patient Name: NORIS GOETZ MRN: [facility]:[id number] date: 1990 Sex: F Assigned Patient Location: [facility] Current Patient Location: Accession/Order Number: [id number] Exam Date: 06/22/2025 17:18 Report Date: 06/22/2025 21:47 At the request of: YASMANI ABDULLAHI DO Procedure: US OB BPP w non-stress Ultrasound biophysical profile HISTORY: Multigravida. Advanced maternal age. Adequate breathing movement, gross body movement, tone and amniotic fluid volume for total score of 8 out of 8. The amniotic fluid index is 15.2cm within normal limits. The heart rate 150 bpm. US/US OB BPP w non-stress IMPRESSION: Adequate ultrasound biophysical profile Impression dictated by: Alfonzo Flores M.D. 06/22/2025 9:47 PM Dictation Location: [employer] Electronically authenticated by: [id number] Y Date: 06/22/2025 21:47 Dictated By: Alfonzo Flores D.O. Signed By: 06/22/252149 DD/ 46 TD/TT: Mica Miner: [facility] Radiology Study observation (narrative) [facility] US OB BPP W NON-STRESS Ordered By: Radiologist Radiology on 06-22-2025 [facility] Work Phone: US OB FOLLOW UP TRANSABDOMIN AL APPROACHon 06-21-2025 US OB FOLLOW UP TRANSABDOMINAL APPROACH FINDINGS: Comparison made with prior examination of [...] is 2987 grams (6 pound, 6 ounces). IMPRESSION: 1. Single, live intrauterine , current [...] of Delivery: 07/28/25 Gestational Age as of 06/07/2025: 34w5d Urinalysis macro (dipstick) panel (U)on 06-21-2025 Bilirubin, UA Negative Negative - 4(70) +++ mg/dL [facility] Blood, UA Negative Negative - 50 Tavon/mcL [facility] Clarity, UA Clear [facility] Color, UA Yellow [facility] Glucose, UA Negative Negative - 1999(110) ++++ mg/dL [facility] Interpretation and review of laboratory results Abnormal [facility] Ketones, UA Positive Negative - 160(16) ++++ mg/dL [facility] Leukocytes, UA 1+ Negative - 500+++ Bertha/mcL [facility] Nitrite, UA Negative Negative - Positive [facility] pH, UA 7 5 - 9 [facility] Protein, UA Negative Negative - 1999(20) ++++ mg/dL [facility] Spec Grav, UA 1.015 1 - 1.03 [facility] Urobilinogen, UA 1.0 0.2 - 12 mg/dL [facility] US OB BPP W NON-STRESS on 06-19-2025 [place] [address] Ultrasound Report Signed Patient: NORIS GOETZ MR#: [id number] : 1990 Acct:[id number] Age/Sex: 35 / F ADM Date: 06/19/25 Loc: [place] [address]: Yasmani Abdullahi D.O. Ordering Physician: Yasmani Abdullahi D.O. Date of Service: 06/19/25 Procedure(s): US OB BPP w non-stress Accession Number(s): [id number] cc: Marianela Oliva M.D.; Yasmani Abdullahi D.O. [place] [address] Patient Name: NORIS GOETZ MRN: [id number] date: 1990 Sex: F Assigned Patient Location: US Current Patient Location: US Accession/Order Number: [id number] Exam Date: 06/19/2025 11:08 Report Date: 06/19/2025 [...] Barnhart M.D. 06/19/2025 12:15 PM Dictation Location: [place] [address] Electronically authenticated by: [id number] Y Date: 06/19/2025 12:15 Dictated By: nAnel Barnhart M.D. Signed By: 06/19/25 1217 DD/ 1215 TD/TT: Mica Miner: [facility] Radiology, Radiologi MD lou - 06/19/2025 [place] [address] Ultrasound Report Signed Patient: NORIS GOETZ MR#: [id number] : 1990 Acct:[id number] Age/Sex: 35 / F ADM Date: 06/19/25 Loc: [facility] 250-[address]: Yasmani Abdullahi D.O. Ordering Physician: Yasmani Abdullahi D.O. Date of Service: 06/19/25 Procedure(s): US OB BPP w non-stress Accession Number(s): [id number] cc: Marianela Oliva M.D.; Yasmani Abdullahi D.O. The [address] [address] Patient Name: NORIS GOETZ MRN: [facility]:[id number] date: 1990 Sex: F Assigned Patient Location: US Current Patient Location: US Accession/Order Number: [id number] Exam Date: 06/19/2025 11:08 Report Date: 06/19/2025 [...] Barnhart M.D. 06/19/2025 12:15 PM Dictation Location[facility] Electron[facility] authenticated by: [id number] Y Date: 06/19/2025 12:15 Dictated By: Annel Barnhart M.D. Signed By: 06/19/25 1217 DD/ 1215 TD/TT: Mica Miner: [facility] Radiology Study observation (narrative) [facility] US OB BPP W NON-STRESS Ordered By: Radiologist Radiology on 06-19-2025 [facility] Work Phone: Urinalysis macro (dipstick) panel (U)on 06-07-2025 Bilirubin, UA Negative Negative - 4(70) +++ mg/dL [facility] Blood, UA Negative Negative - 50 Tavon/mcL [facility] Clarity, UA Clear [facility] Color, UA Yellow [facility] Glucose, UA Negative Negative - 2000(110) ++++ mg/dL [facility] Interpretation and review of laboratory results Normal [facility] Ketones, UA Negative Negative - 160(16) ++++ mg/dL [facility] Leukocytes, UA Negative Negative - 500+++ Bertha/mcL [facility] Nitrite, UA Negative Negative - Positive [facility] pH, UA 7.5 5 - 9 [facility] Protein, UA Negative Negative - 1999(20) ++++ mg/dL [facility] Spec Grav, UA 1.005 1 - 1.03 [facility] Urobilinogen, UA 1.0 0.2 - 12 mg/dL [facility] US OB FOLLOW UP TRANSABDOMIN AL APPROACHon [...] UA Negative Negative - 4(70) +++ mg/dL [facility] Blood, UA Negative Negative - 50 Tavon/mcL [facility] Clarity, UA Clear [facility] Color, UA Yellow [facility] Glucose, UA Negative Negative - 1999(110) ++++ mg/dL [facility] Interpretation and review of laboratory results Normal [facility] Ketones, UA Negative Negative - 160(16) ++++ mg/dL [facility] Leukocytes, UA Negative Negative - 500+++ Bertha/mcL [facility] Nitrite, UA Negative Negative - Positive [facility] pH, UA 6.5 5 - 9 [facility] Protein, UA Negative Negative - 1999(20) ++++ mg/dL [facility] Spec Grav, UA 1.01 1 - 1.03 [facility] Urobilinogen, UA 1.0 0.2 - 12 mg/dL [facility] Urinalysis macro (dipstick) panel (U)on 05-10-2025 Bilirubin, UA Negative Negative - 4(70) +++ mg/dL [facility] Blood, UA Negative Negative - 50 Tavon/mcL [facility] Clarity, UA Clear [facility] Color, UA Yellow [facility] Glucose, UA Negative Negative - 1999(110) ++++ mg/dL [facility] Interpretation and review of laboratory results Abnormal [facility] Ketones, UA Positive Negative - 160(16) ++++ mg/dL [facility] Comment on above: Large Leukocytes, UA Negative Negative - 500+++ Bertha/mcL [facility] Nitrite, UA Negative Negative - Positive [facility] pH, UA 6.5 5 - 9 [facility] Protein, UA Trace Negative - 1999(20) ++++ mg/dL [facility] Spec Grav, UA 1.015 1 - 1.03 [facility] Urobilinogen, UA 0.2 0.2 - 12 mg/dL [facility] Urinalysis macro (dipstick) panel (U)on 04-10-2025 Bilirubin, UA Negative Negative - 4(70) +++ mg/dL [facility] Blood, UA Negative Negative - 50 Tavon/mcL [facility] Clarity, UA Clear [facility] Color, UA Yellow [facility] Glucose, UA Negative Negative - 1999(110) ++++ mg/dL [facility] Interpretation and review of laboratory results Normal [facility] Ketones, UA Negative Negative - 160(16) ++++ mg/dL [facility] Leukocytes, UA Negative Negative - 500+++ Bertha/mcL [facility] Nitrite, UA Negative Negative - Positive [facility] pH, UA 6.5 5 - 9 [facility] Protein, UA Negative Negative - 2000(20) ++++ mg/dL [facility] Spec Grav, UA 1.025 1 - 1.03 [facility] Urobilinogen, UA 1.0 0.2 - 12 mg/dL [facility] Albumin [Mass/volume] in Ser um or Plasma by Bromocresol green (BCG) dye binding methoOrdered By: Mario Perez on 04-02-2025 Albumin BCG dye [Mass/Vol] 3.4 g/dL Low 3.5-5.7 [facility] Cholesterol in LDL Calc [Mas s/Vol]Ordered By: Mario Perez on 04-02-2025 Cholesterol in LDL [Mass/Vol] 120 mg/dL High 0-100 [facility] Comment on above: LDL ATP III CLASSIFI CATIONLDL less than 100 mg/dL OptimalLDL 100-129 mg/dL Near or above optimalLDL 130-159 mg/dL Borderline highLDL 160-189 mg/dL HighLDL greater than 189 mg/dL Very high Cholesterol in VLDL Calc [Ma ss/Vol]Ordered By: Mario Perez on 04-02-2025 Cholesterol in VLDL [Mass/Vol] 26 mg/dL [facility] Employee Comp Metabolic Pane marcel 04-02-2025 Albumin [Mass/Vol] 3.4 g/dL Low 3.5-5.7 [facility] Comment on above: Performed By: #### P ILLAR TSH, PILLAR CBC, PILLAR BMP, PILLAR LIPID #### [facility] [address] GFR/1.73 sq M.predicted MDRD (S/P/Bld) [Vol rate/Area] mL/min/{1.73_m2} Normal [facility] Comment on above: Performed By: #### P ILLAR TSH, PILLAR CBC, PILLAR BMP, PILLAR LIPID #### [facility] [address] Employee Comp Metabolic Pane lOrdered By: Mario Perez on 04-02-2025 Albumin/Globulin [Mass ratio] 1.5 {ratio} [facility] Comment on above: Performed By: #### P ILLAR TSH, PILLAR CBC, PILLAR BMP, PILLAR LIPID #### [facility] [address] ALP [Catalytic activity/Vol] 39 U/L 34-104 [facility] Comment on above: Performed By: #### P ILLAR TSH, PILLAR CBC, PILLAR BMP, PILLAR LIPID #### [facility] [address] ALT [Catalytic activity/Vol] 10 U/L 7-52 [facility] Comment on above: Performed By: #### P ILLAR TSH, PILLAR CBC, PILLAR BMP, PILLAR LIPID #### [facility] [address] Anion gap [Moles/Vol] 8.5 mmol/L 6.0-15.0 [facility] Comment on above: Performed By: #### P ILLAR TSH, PILLAR CBC, PILLAR BMP, PILLAR LIPID #### [facility] [address] [place] [address] AST [Catalytic activity/Vol] 12 U/L Low 13-39 [facility] Comment on above: Performed By: #### P ILLAR TSH, PILLAR CBC, PILLAR BMP, PILLAR LIPID #### [facility] [address] [place] [address] Bilirubin [Mass/Vol] 0.3 mg/dL 0.3-1.0 [facility] Comment on above: Performed By: #### P ILLAR TSH, PILLAR CBC, PILLAR BMP, PILLAR LIPID #### [facility] [address] [place] [address] Calcium [Mass/Vol] 8.2 mg/dL Low 8.6-10.3 [facility] Comment on above: Performed By: #### P ILLAR TSH, PILLAR CBC, PILLAR BMP, PILLAR LIPID #### [facility] [address] [place] [address] Chloride [Moles/Vol] 106 mmol/L 98-107 [facility] Comment on above: Performed By: #### P ILLAR TSH, PILLAR CBC, PILLAR BMP, PILLAR LIPID #### [facility] [address] [place] [address] CO2 [Moles/Vol] 25.4 mmol/L 21.0-31.0 [facility] Comment on above: Performed By: #### P ILLAR TSH, PILLAR CBC, PILLAR BMP, PILLAR LIPID #### [address] Creatinine [Mass/Vol] 0.49 mg/dL Low 0.60-1.20 [facility] Comment on above: Performed By: #### P ILLAR TSH, PILLAR CBC, PILLAR BMP, PILLAR LIPID #### [address] Globulin (S) [Mass/Vol] 2.3 g/dL [facility] Comment on above: Performed By: #### P ILLAR TSH, PILLAR CBC, PILLAR BMP, PILLAR LIPID #### [address] Glucose [Mass/Vol] 92 mg/dL 70-100 [facility] Comment on above: Performed By: #### P ILLAR TSH, PILLAR CBC, PILLAR BMP, PILLAR LIPID #### [address] Potassium [Moles/Vol] 3.9 mmol/L 3.5-5.1 [facility] Comment on above: Performed By: #### P ILLAR TSH, PILLAR CBC, PILLAR BMP, PILLAR LIPID #### [address] Protein [Mass/Vol] 5.7 g/dL Low 6.4-8.9 [facility] Comment on above: Performed By: #### P ILLAR TSH, PILLAR CBC, PILLAR BMP, PILLAR LIPID #### [address] Sodium [Moles/Vol] 136 mmol/L 136-145 [facility] Comment on above: Performed By: #### P ILLAR TSH, PILLAR CBC, PILLAR BMP, PILLAR LIPID #### [facility] [address] Urea nitrogen [Mass/Vol] 12 mg/dL 05-11 [facility] Comment on above: Performed By: #### P ILLAR TSH, PILLAR CBC, PILLAR BMP, PILLAR LIPID #### [facility] [address] Employee Complete Blood Coun tOrdered By: Mario Perez on 04-02-2025 Basophils (Bld) [#/Vol] 0.0 10*3/uL 0.0-0.2 [facility] Comment on above: Result Comment: PERF ORMED BY: [place] [address] PATHOLOGIST COMMUNITY OUTREACH COORDINATOR JESS VARGAS M.D. Performed By: #### P ILLAR LIPID, PILLAR CBC, PILLAR CMP ####[address] Basophils/100 WBC (Bld) 0.5 % . [facility] Comment on above: Performed By: #### P ILLAR LIPID, PILLAR CBC, PILLAR CMP ####[address] Eosinophils (Bld) [#/Vol] 0.2 10*3/uL 0.0-0.45 [facility] Comment on above: Performed By: #### P ILLAR LIPID, PILLAR CBC, PILLAR CMP ####[address] Eosinophils/100 WBC (Bld) 2.5 % . [facility] Comment on above: Performed By: #### P ILLAR LIPID, PILLAR CBC, PILLAR CMP ####[address] Erythrocyte distribution width (RBC) [Ratio] 13.4 % 11.9-15.3 [facility] Comment on above: Performed By: #### P ILLAR LIPID, PILLAR CBC, PILLAR CMP ####[address] Hematocrit (Bld) [Volume fraction] 34.4 % 34.0-46.4 [facility] Comment on above: Performed By: #### P ILLAR LIPID, PILLAR CBC, PILLAR CMP ####[address] Hemoglobin (Bld) [Mass/Vol] 11.8 g/dL 11.8-15.4 [facility] Comment on above: Performed By: #### P ILLAR LIPID, PILLAR CBC, PILLAR CMP ####[address] Lymphocytes (Bld) [#/Vol] 1.6 10*3/uL 1.00-4.8 [facility] Comment on above: Performed By: #### P ILLAR LIPID, PILLAR CBC, PILLAR CMP ####[address] Lymphocytes/100 WBC (Bld) 21.6 % . [facility] Comment on above: Performed By: #### P ILLAR LIPID, PILLAR CBC, PILLAR CMP ####[address] MCH (RBC) [Entitic mass] 29.3 pg 24.7-34.3 [facility] Comment on above: Performed By: #### P ILLAR LIPID, PILLAR CBC, PILLAR CMP ####[address] MCV (RBC) [Entitic vol] 85.4 fL 80-100 [facility] Comment on above: Performed By: #### P ILLAR LIPID, PILLAR CBC, PILLAR CMP ####[address] Monocytes (Bld) [#/Vol] 0.6 10*3/uL 0.0-0.8 [facility] Comment on above: Performed By: #### P ILLAR LIPID, PILLAR CBC, PILLAR CMP ####[address] Monocytes/100 WBC (Bld) 7.9 % . [facility] Comment on above: Performed By: #### P ILLAR LIPID, PILLAR CBC, PILLAR CMP ####[address] [address] [facility] Neutrophils (Bld) [#/Vol] 5.0 10*3/uL 1.8-7.7 [facility] Comment on above: Performed By: #### P ILLAR LIPID, PILLAR CBC, PILLAR CMP ####[address] [address] [facility] Neutrophils/100 WBC (Bld) 67.5 % . [facility] Comment on above: Performed By: #### P ILLAR LIPID, PILLAR CBC, PILLAR CMP ####[address] [address] [facility] Platelet mean volume (Bld) [Entitic vol] 9.5 fL 6.3-10.7 [facility] Comment on above: Performed By: #### P ILLAR LIPID, PILLAR CBC, PILLAR CMP ####[address] [address] [facility] Platelets (Bld) [#/Vol] 198 10*3/uL 150-450 [facility] Comment on above: Performed By: #### P ILLAR LIPID, PILLAR CBC, PILLAR CMP ####[address] [address] [facility] RBC (Bld) [#/Vol] 4.03 10*6/uL 3.60-5.00 [facility] Comment on above: Performed By: #### P ILLAR LIPID, PILLAR CBC, PILLAR CMP ####[address] [address] [facility] WBC (Bld) [#/Vol] 7.4 10*3/uL 3.8-11.6 [facility] Comment on above: Performed By: #### P ILLAR LIPID, PILLAR CBC, PILLAR CMP ####[address] [address] [facility] Employee Complete Blood Coun ton 04-02-2025 Mean Corpuscular HGB Conc 34.3 g/dL Normal 32.0-35.0 [facility] Comment on above: Performed By: #### P ILLAR LIPID, PILLAR CBC, PILLAR CMP ####[facility] [id number] NRBC% 0.1 /100{WBC} Normal 0-0.5 [facility] Comment on above: Performed By: #### P ILLAR LIPID, PILLAR CBC, PILLAR CMP ####[facility] [id number] Employee Lipid ProfileOrdere d By: Mario Perez on 04-02-2025 Cholesterol [Mass/Vol] 222 mg/dL High 140-200 [facility] Comment on above: Result Comment: Chol less than 200 mg/dl low risk Chol 201-239 mg/dl borderline risk Chol 240 mg/dl and greater high risk Performed By: #### P ILLAR TSH, PILLAR CBC, PILLAR BMP, PILLAR LIPID #### [facility] [address] Chol less than 200 m g/dl low riskChol 201-239 mg/dl borderline riskChol 240 mg/dl and greater high risk Cholesterol in HDL [Mass/Vol] 76 mg/dL 23-92 [facility] Comment on above: Result Comment: HDL CHOL ATP-III CLASSIFICATION Cardiovascular Risk HDL > or equal to 60 mg/dL LOW HDL < 40 mg/dL HIGH Performed By: #### P ILLAR TSH, PILLAR CBC, PILLAR BMP, PILLAR LIPID #### [facility] [address] HDL CHOL ATP-III CLA SSIFICATION Cardiovascular RiskHDL > or equal to 60 mg/dL LOWHDL < 40 mg/dL HIGH Cholesterol.total/Chol esterol in HDL [Mass ratio] 2.9 {ratio} <5.0 [facility] Comment on above: Result Comment: PERF ORMED BY: [place] [address] PATHOLOGIST COMMUNITY OUTREACH COORDINATOR JESS VARGAS M.D. Performed By: #### P ILLAR TSH, PILLAR CBC, PILLAR BMP, PILLAR LIPID #### [facility] [address] Employee Lipid Profileon LDL Cholesterol,Calculated 120 mg/dL High 0-100 [facility] Comment on above: Result Comment: LDL ATP III CLASSIFICATION LDL less than 100 mg/dL Optimal LDL 100-129 mg/dL Near or above optimal LDL 130-159 mg/dL Borderline high LDL 160-189 mg/dL High LDL greater than 189 mg/dL Very high Performed By: #### P ILLAR TSH, PILLAR CBC, PILLAR BMP, PILLAR LIPID #### [facility] [address] Triglyceride w/Reflex 131 mg/dL Normal 0-149 [facility] Comment on above: Result Comment: TRIG ATP III CLASSIFICATION TRIG less than 150 mg/dL Normal TRIG 150-199 mg/dL Borderline high TRIG 200-500 mg/dL High TRIG greater than 500 mg/dL Very high Standard traceable to the Center for Disease Conrtrol and Prevention (CDC) test method. Performed By: #### P ILLAR TSH, PILLAR CBC, PILLAR BMP, PILLAR LIPID #### [facility] [address] VLDL CHOLESTEROL 26 mg/dL Normal [facility] Comment on above: Performed By: #### P ILLAR TSH, PILLAR CBC, PILLAR BMP, PILLAR LIPID #### [facility] [address] Leukocytes [#/volume] correc randolph for nucleated erythrocytes in Blood by Automated counOrdered By: Mario Perez on 04-02-2025 WBC corrected for nucl RBC Auto (Bld) [#/Vol] 7.4 10*3/uL 3.8-11.6 [facility] MCHC Auto (RBC) [Mass/Vol]Or dered By: Mario Perez on 04-02-2025 MCHC (RBC) [Mass/Vol] 34.3 g/dL 32.0-35.0 [facility] No Panel InformationOrdered By: Mario Perez on 04-02-2025 Estimated GFR (CKD-EPI) > 60.0 mL/Min [facility] Pharmacy Creatinine Clearance (Chem N/A [facility] Nucleated erythrocytes [Pres ence] in Blood by Automated countOrdered By: Mario Perez on 04-02-2025 Nucleated RBC Auto Ql (Bld) 0.1 /100{WBC} 0-0.5 [facility] Triglyceride [Mass/volume] i n Serum or PlasmaOrdered By: Mario Perez on 04-02-2025 Triglyceride [Mass/Vol] 131 mg/dL 0-149 [facility] Comment on above: TRIG ATP III CLASSIF [...] II, MD, PHD at 16-Mar-2025 11:50:11 AM [facility] Normal Not Available Comment on above: Order Comment: US OB ANATOMY SINGLE W US OB CERVICAL LENGTH Estimated Date of Delivery: 07/28/25 Gestational Age as of 02/15/2025: 16w5d Urinalysis macro (dipstick) panel (U)on 03-15-2025 Bilirubin, UA Negative Negative - 4(70) +++ mg/dL [facility] Blood, UA Negative Negative - 50 Tavon/mcL [facility] Clarity, UA Clear [facility] Color, UA Yellow [facility] Glucose, UA Negative Negative - 2000(110) ++++ mg/dL [facility] Interpretation and review of laboratory results Normal [facility] Ketones, UA Negative Negative - 160(16) ++++ mg/dL [facility] Leukocytes, UA Negative Negative - 500+++ Bertha/mcL [facility] Nitrite, UA Negative Negative - Positive [facility] pH, UA 7 5 - 9 [facility] Protein, UA Negative Negative - 2000(20) ++++ mg/dL [facility] Spec Grav, UA 1.015 1 - 1.03 [facility] Urobilinogen, UA 0.2 0.2 - 12 mg/dL [facility] Basophils Auto (Bld) [#/Vol] Ordered By: Yasmani Abdullahi on 03-14-2025 Basophils (Bld) [#/Vol] Automated basophil count 0.0-0.2 [facility] Basophils/100 WBC Auto (Bld) Ordered By: Yasmani Abdullahi on 03-14-2025 Basophils/100 WBC (Bld) Automated basophil % . [facility] CBC W Auto Differential pane l (Bld)on 03-14-2025 Basophils (Bld) [#/Vol] 0 10*3/uL 0.0 - 0.2 10*3/uL [facility] Basophils/100 WBC Manual cnt (Syn fld) 0.3 % . [facility] Eosinophils (Bld) [#/Vol] 0.1 10*3/uL 0.0 - 0.45 10*3/uL [facility] Eosinophils/100 WBC Manual cnt (Syn fld) 1 % . [facility] Erythrocyte distribution width (RBC) [Ratio] 13.5 % 11.9 - 15.3 % [facility] Hematocrit (Bld) [Volume fraction] 35.8 % 34.0 - 46.4 % [facility] Hemoglobin (Bld) [Mass/Vol] 12.6 g/dL 11.8 - 15.4 g/dL [facility] Interpretation and review of laboratory results Abnormal [facility] Lymphocytes (Bld) [#/Vol] 1.8 10*3/uL 1.00 - 4.8 10*3/uL [facility] Lymphocytes/100 WBC Manual cnt (Syn fld) 19.9 % . [facility] MCH (RBC) [Entitic mass] 29.2 pg 24.7 - 34.3 pg [facility] MCHC (RBC) [Mass/Vol] 35.1 g/dL High 32.0 - 35.0 g/dL [facility] MCV (RBC) [Entitic vol] 83.3 fL 80 - 100 fL [facility] Monocytes (Bld) [#/Vol] 0.7 10*3/uL 0.0 - 0.8 10*3/uL [facility] Monocytes+Macrophages/ 100 WBC Manual cnt (Syn fld) 8.2 % . [facility] Neutrophils (Bld) [#/Vol] 6.4 10*3/uL 1.8 - 7.7 10*3/uL [facility] Neutrophils/100 WBC Manual cnt (Syn fld) 70.6 % . [facility] NRBC 0.1 /100{WBC} 0 - 0.5 /100{WBC} [facility] Platelet mean volume (Bld) [Entitic vol] 9 fL 6.3 - 10.7 fL [facility] Platelets (Bld) [#/Vol] 235 10*3/uL 150 - 450 10*3/uL [facility] RBC LM.HPF (Urine sed) [#/Area] 4.3 10*6/uL 3.60 - 5.00 10*6/uL [facility] WBC (Bld) [#/Vol] 9.1 10*3/uL 3.8 - 11.6 10*3/uL [facility] WBC LM.HPF (Urine sed) [#/Area] 9.1 10*3/uL 3.8 - 11.6 10*3/uL [facility] Complete Blood Count Auto Di ffOrdered By: Yasmani Abdullahi on 03-14-2025 Basophils (Bld) [#/Vol] 0.0 10*3/uL 0.0-0.2 [facility] Comment on above: Result Comment: PERF ORMED BY: [facility] [address] [place] [address] PATHOLOGIST COMMUNITY OUTREACH COORDINATOR JESS VARGAS M.D. Performed By: #### C BC ####[address] Basophils/100 WBC (Bld) 0.3 % . [facility] Comment on above: Performed By: #### C BC ####[address] Eosinophils (Bld) [#/Vol] 0.1 10*3/uL 0.0-0.45 [facility] Comment on above: Performed By: #### C BC ####[address] Eosinophils/100 WBC (Bld) 1.0 % . [facility] Comment on above: Performed By: #### C BC ####[address] Erythrocyte distribution width (RBC) [Ratio] 13.5 % 11.9-15.3 [facility] Comment on above: Performed By: #### C BC ####[address] Hematocrit (Bld) [Volume fraction] 35.8 % 34.0-46.4 [facility] Comment on above: Performed By: #### C BC ####[address] Hemoglobin (Bld) [Mass/Vol] 12.6 g/dL 11.8-15.4 [facility] Comment on above: Performed By: #### C BC ####[address] Lymphocytes (Bld) [#/Vol] 1.8 10*3/uL 1.00-4.8 [facility] Comment on above: Performed By: #### C BC ####[address] Lymphocytes/100 WBC (Bld) 19.9 % . [facility] Comment on above: Performed By: #### C BC ####[address] MCH (RBC) [Entitic mass] 29.2 pg 24.7-34.3 [facility] Comment on above: Performed By: #### C BC ####[address] MCV (RBC) [Entitic vol] 83.3 fL 80-100 [facility] Comment on above: Performed By: #### C BC ####[address] Monocytes (Bld) [#/Vol] 0.7 10*3/uL 0.0-0.8 [facility] Comment on above: Performed By: #### C BC ####[address] Monocytes/100 WBC (Bld) 8.2 % . [facility] Comment on above: Performed By: #### C BC ####[address] Neutrophils (Bld) [#/Vol] 6.4 10*3/uL 1.8-7.7 [facility] Comment on above: Performed By: #### C BC ####[address] [address] [facility] Neutrophils/100 WBC (Bld) 70.6 % . [facility] Comment on above: Performed By: #### C BC ####[address] [address] [facility] Platelet mean volume (Bld) [Entitic vol] 9.0 fL 6.3-10.7 [facility] Comment on above: Performed By: #### C BC ####[place] [id number] [facility] Platelets (Bld) [#/Vol] 235 10*3/uL 150-450 [facility] Comment on above: Performed By: #### C BC ####[place] [id number] [facility] RBC (Bld) [#/Vol] 4.30 10*6/uL 3.60-5.00 [facility] Comment on above: Performed By: #### C BC ####[place] [id number] [facility] WBC (Bld) [#/Vol] 9.1 10*3/uL 3.8-11.6 [facility] Comment on above: Performed By: #### C BC ####[place] [id number] [facility] Complete Blood Count Auto Di ffon 03-14-2025 Mean Corpuscular HGB Conc 35.1 g/dL High 32.0-35.0 [facility] Comment on above: Performed By: #### C BC ####[place] [id number] [facility] NRBC% 0.1 /100{WBC} Normal 0-0.5 [facility] Comment on above: Performed By: #### C BC ####[place] [id number] [facility] Eosinophils Auto (Bld) [#/Vo l]Ordered By: Yasmani Abdullahi on 03-14-2025 Eosinophils (Bld) [#/Vol] Automated eosinophil count 0.0-0.45 [facility] Eosinophils/100 WBC Auto (Bl d)Ordered By: Yasmani Abdullahi on 03-14-2025 Eosinophils/100 WBC (Bld) Automated eosinophil % . [facility] Erythrocyte distribution wid th Auto (RBC) [Ratio]Ordered By: Yasmani Abdullahi on 03-14-2025 Erythrocyte distribution width (RBC) [Ratio] Erythrocyte distribution width [Ratio] by Automated count 11.9-15.3 [facility] Hematocrit Auto (Bld) [Volum e fraction]Ordered By: Yasmani Abdullahi on 03-14-2025 Hematocrit (Bld) [Volume fraction] Hematocrit [Volume Fraction] of Blood by Automated count 34.0-46.4 [facility] Hemoglobin [Mass/volume] in BloodOrdered By: Yasmani Abdullahi on 03-14-2025 Hemoglobin (Bld) [Mass/Vol] Hemoglobin [Mass/volume] in Blood 11.8-15.4 [facility] Leukocytes [#/volume] correc randolph for nucleated erythrocytes in Blood by Automated counOrdered By: Yasmani Abdullahi on 03-14-2025 WBC corrected for nucl RBC Auto (Bld) [#/Vol] Leukocytes [#/volume] corrected for nucleated erythrocytes in Blood by Automated coun 3.8-11.6 [facility] WBC corrected for nucl RBC Auto (Bld) [#/Vol] 9.1 10*3/uL 3.8-11.6 [facility] Lymphocytes Auto (Bld) [#/Vo l]Ordered By: Yasmani Abdullahi on 03-14-2025 Lymphocytes (Bld) [#/Vol] Lymphocytes [#/volume] in Blood by Automated count 1.00-4.8 [facility] Lymphocytes/100 WBC Auto (Bl d)Ordered By: Yasmani Abdullahi on 03-14-2025 Lymphocytes/100 WBC (Bld) Lymphocytes/100 leukocytes in Blood by Automated count . [facility] MCH Auto (RBC) [Entitic mass ]Ordered By: Yasmani Abdullahi on 03-14-2025 MCH (RBC) [Entitic mass] MCH [Entitic mass] by Automated count 24.7-34.3 [facility] MCHC Auto (RBC) [Mass/Vol]Or dered By: Yasmani Abdullahi on 03-14-2025 MCHC (RBC) [Mass/Vol] MCHC [Mass/volume] by Automated count High 32.0-35.0 [facility] MCHC (RBC) [Mass/Vol] 35.1 g/dL High 32.0-35.0 [facility] MCV Auto (RBC) [Entitic vol] Ordered By: Yasmani Abdullahi on 03-14-2025 MCV (RBC) [Entitic vol] MCV [Entitic volume] by Automated count 80-100 [facility] Monocytes Auto (Bld) [#/Vol] Ordered By: Yasmani Abdullahi on 03-14-2025 Monocytes (Bld) [#/Vol] Automated blood monocyte count 0.0-0.8 [facility] Monocytes/100 WBC Auto (Bld) Ordered By: Yasmani Abdullahi on 03-14-2025 Monocytes/100 WBC (Bld) Automated monocyte % . [facility] Neutrophils Auto (Bld) [#/Vo l]Ordered By: Yasmani Abdullahi on 03-14-2025 Neutrophils (Bld) [#/Vol] Neutrophils [#/volume] in Blood by Automated count 1.8-7.7 [facility] Neutrophils/100 WBC Auto (Bl d)Ordered By: Yasmani Abdullahi on 03-14-2025 Neutrophils/100 WBC (Bld) Automated neutrophil % . [facility] Nucleated erythrocytes [Pres ence] in Blood by Automated countOrdered By: Yasmani Abdullahi on 03-14-2025 Nucleated RBC Auto Ql (Bld) Nucleated erythrocytes [Presence] in Blood by Automated count 0-0.5 [facility] Nucleated RBC Auto Ql (Bld) 0.1 /100{WBC} 0-0.5 [facility] Platelet mean volume Auto (B ld) [Entitic vol]Ordered By: Yasmani Abdullahi on 03-14-2025 Platelet mean volume (Bld) [Entitic vol] Platelet mean volume [Entitic volume] in Blood by Automated count 6.3-10.7 [facility] Platelets Auto (Bld) [#/Vol] Ordered By: Yasmani Abdullahi on 03-14-2025 Platelets (Bld) [#/Vol] Platelets [#/volume] in Blood by Automated count 150-450 [facility] RBC Auto (Bld) [#/Vol]Ordere d By: Yasmani Abdullahi on 03-14-2025 RBC (Bld) [#/Vol] Erythrocytes [#/volu me] in Blood by Automated count 3.60-5.00 [facility] WBC Auto (Bld) [#/Vol]Ordere d By: Yasmani Abdullahi on 03-14-2025 WBC (Bld) [#/Vol] Leukocytes [#/volume ] in Blood by Automated count 3.8-11.6 [facility] IGP,APTIMA HPV,AGE GDLNon AGE GDLN ACOG TESTING Note . [facility] Comment on above: TESTS RESULT FLAG UN ITS REF RANGE LAB Clinician Provided Cytology Information Source.............[employer] Other.............. No. of containers..01 ThinPrep Vial Age Algo ACOG Gemma... 30-65 01 FLAG LEGEND: L-Low Normal,H-High Normal,LL-Alert Low,HH-Alert High <-Panic Low,>-Panic High,A-Abnormal,AA-Critical Abnormal Performed at: 01 =G [address] [place] [address] Azalea Quezada MD, HPV APTIMA Negative Negative [facility] Comment on above: This nucleic acid am plification test detects fourteen high- risk HPV types (16,18,31,33,35,39,45,51,52,56,58,59,66,68) without differentiation. Performed at: =G - [facility] [address] [place], [place] [id number] Transportation Services Representative: Azalea Quezada MD, Phone: [phone] Performed at: - [facility] [address] [place], [place] [id number] Transportation Services Representative: Azalea Quezada MD, Phone: [phone] IGP, APTIMA HPV, RFX 16/18,45 Note . [facility] Comment on above: TESTS RESULT FLAG UN ITS REF RANGE LAB DIAGNOSIS: 02 NEGATIVE FOR INTRAEPITHELIAL LESION OR MALIGNANCY. Specimen adequacy: 02 Satisfactory for evaluation. No endocervical component is identified. An endocervical component is not commonly seen in the patient. Performed by: Darrell Martin, Record Clerk (ASCP) . 02 Note: Note 02 The Pap [...] <-Panic Low,>-Panic High,A-Abnormal,AA-Critical Abnormal Performed at: [address] [address] Azalea Quezada MD, SPATULA-ALONE [facility] RECURRENT VAGINITIS (HTRX)on 02-16-2025 ATOPOBIUM VAGINAE 0 [facility] ATOPOBIUM VAGINAE Not detected [facility] BVAB 2,3 (BACTERIAL VAGINOSIS ASSOCIATED BACTERIA 2, 3); MOBILUNCUS SPP 0 [facility] BVAB 2,3 (BACTERIAL VAGINOSIS ASSOCIATED BACTERIA 2, 3); MOBILUNCUS SPP Not detected [facility] JOHNNIE ALBICANS, PARAPSILOSIS, TROPICALIS 0 [facility] JOHNNIE ALBICANS, PARAPSILOSIS, TROPICALIS Not detected [facility] JOHNNIE GLABRATA 0 [facility] JOHNNIE GLABRATA Not detected [facility] JOHNNIE KRUSEI 0 [facility] JOHNNIE KRUSEI Not detected [facility] CHLAMYDIA TRACHOMATIS 0 [facility] CHLAMYDIA TRACHOMATIS Not detected [facility] GARDNERELLA VAGINALIS 0 [facility] GARDNERELLA VAGINALIS Not detected [facility] MEGASPHAERA (TYPES 1, 2) 0 [facility] MEGASPHAERA (TYPES 1, 2) Not detected [facility] MYCOPLASMA GENITALIUM 0 [facility] MYCOPLASMA GENITALIUM Not detected N [...] 16+18+31+33+35+39+45+51+5 2+56+58+59+66+68 DNA [Presence] in Cer Negative [facility] Comment on above: This nucleic acid am plification test detects fourteen high- risk HPV types (16,18,31,33,35,39,45,51,52,56,58,59,66,68)without differentiation.Performed at: =G - [facility] [address] [id number] Director: Azalea Quezada MD, Phone: [phone] at: WB - [facility] [address] [id number] Director: Azalea Quezada MD, Phone: [phone] No Panel Informationon 02-15 HPV High Risk Other Comment Note . [facility] Comment on above: TESTS RESULT FLAG UN ITS REF RANGE LAB DIAGNOSIS: 02 NEGATIVE FOR INTRAEPITHELIAL LESION OR MALIGNANCY.Specimen adequacy: 02 Satisfactory for evaluation. No endocervical component is identified. An endocervical component is not commonly seen in the patient.Performed by: Darrell Martin Record Clerk (ASCP). 02Note: Note 02 The Pap smear [...] High <-Panic Low,>-Panic High,A-Abnormal,AA-Critical Abnormal -----Performed at:02 WB [facility] [place] [address] [place] [address] Azalea Quezada MD, Reference Lab Test Patient Age Note . [facility] Comment on above: TESTS RESULT FLAG UN ITS REF RANGE LAB Clinician Provided Cytology Information Source.............[employer] Other.............. No. of containers..01 ThinPrep VialAge Algo ACOG Gemma... FLAG LEGEND: L-Low Normal,H-High Normal,LL-Alert Low,HH-Alert High <-Panic Low,>-Panic High,A-Abnormal,AA-Critical Abnormal -----Performed at:01 =G [facility] [place] [address] [place] [address] Azalea Quezada MD, Urinalysis macro (dipstick) panel (U)on 02-15-2025 Bilirubin, UA Negative Negative - 4(70) +++ mg/dL [facility] Blood, UA Negative Negative - 50 Tavon/mcL [facility] Clarity, UA Clear [facility] Color, UA Yellow [facility] Glucose, UA Positive Negative - 1999(110) ++++ mg/dL [facility] Comment on above: 100 Interpretation and review of laboratory results Abnormal [facility] Ketones, UA Negative Negative - 160(16) ++++ mg/dL [facility] Leukocytes, UA Negative Negative - 500+++ Bertha/mcL [facility] Nitrite, UA Negative Negative - Positive [facility] pH, UA 5.5 5 - 9 [facility] Protein, UA Negative Negative - 1999(20) ++++ mg/dL [facility] Spec Grav, UA 1.005 1 - 1.03 [facility] Urobilinogen, UA 0.2 0.2 - 12 mg/dL [facility] Urinalysis macro (dipstick) panel (U)on 01-18-2025 Bilirubin, UA Negative Negative - 4(70) +++ mg/dL [facility] Blood, UA Negative Negative - 50 Tavon/mcL [facility] Clarity, UA Clear [facility] Color, UA Yellow [facility] Glucose, UA Negative Negative - 1999(110) ++++ mg/dL [facility] Interpretation and review of laboratory results Abnormal [facility] Ketones, UA Negative Negative - 160(16) ++++ mg/dL [facility] Leukocytes, UA Negative Negative - 500+++ Bertha/mcL [facility] Nitrite, UA Negative Negative - Positive [facility] pH, UA 6 5 - 9 [facility] Protein, UA Negative Negative - 1999(20) ++++ mg/dL [facility] Spec Grav, UA 1.03 1 - 1.03 [facility] Urobilinogen, UA 0.2 0.2 - 12 mg/dL [facility] A1C with Estimated Average G raleighdee 12-27-2024 Glucose [Mass/Vol] 103 mg/dL Normal [facility] Comment on above: Order Comment: NONFA STING.JKW Result Comment: PERF ORMED BY: [facility] [address] [place] [address] PATHOLOGIST COMMUNITY OUTREACH COORDINATOR LEÓN GARCIA M.D. Performed By: #### H CV RX PCR, RPR W RFX, RUBELLA IGG, HBSAG, HIV SCREEN ####[facility] ,#### CUU, A1C WTH eA, CBC, URDS ####[facility] HbA1c (Bld) [Mass fraction] 5.2 % Normal 4.3-5.6 [facility] Comment on above: Order Comment: NONFA STING.JKW Result Comment: Incr eased risk for diabetes: 5.7 - 6.4 diabetes: >6.4 glycemic control for adults with diabetes: <7.0 Performed By: #### H CV RX PCR, RPR W RFX, RUBELLA IGG, HBSAG, HIV SCREEN ####[facility] ,#### CUU, A1C WTH eA, CBC, URDS ####[facility] [address] Amphetamine Screen Ql (U)Ord ered By: Yasmani Abdullahi on 12-27-2024 Amphetamines Ql (U) Amphetamines screen Negativ e [facility] [facility] Barbiturates [Presence] in U rine by Screen methodOrdered By: Yasmani Abdullahi on 12-27-2024 Barbiturates Screen Ql (U) Barbiturates [Presence] in Urine by Screen method Negative [facility] Basophils Auto (Bld) [#/Vol] Ordered By: Yasmani Abdullahi on 12-27-2024 Basophils (Bld) [#/Vol] Automated basophil count 0.0-0.2 [facility] Basophils/100 WBC Auto (Bld) Ordered By: Yasmani Abdullahi on 12-27-2024 Basophils/100 WBC (Bld) Automated basophil % . [facility] Benzodiazepines Screen Ql (U )Ordered By: Yasmani Abdullahi on 12-27-2024 Benzodiazepines Ql (U) Benzodiazepines [Presence] in Urine by Screen method Negative [facility] Benzoylecgonine [Presence] i n Urine by Screen methodOrdered By: Yasmani Abdullahi on 12-27-2024 Benzoylecgonine Screen Ql (U) Benzoylecgonine [Presence] in Urine by Screen method Negative [facility] Blood estimated average gluc ose determination by estimation from glycated hemoglobinOrdered By: Yasmani Abdullahi on 12-27-2024 Average glucose Estimated from glycated hemoglobin (Bld) [Mass/Vol] Glucose mean value [Mass/volume] in Blood Estimated from glycated hemoglobin [facility] Cannabinoids [Presence] in U rine by Screen methodOrdered By: Yasmani Abdullahi on 12-27-2024 Cannabinoids Screen Ql (U) Cannabinoids [Presence] in Urine by Screen method Negative [facility] Comment on above: These are unconfirme d results and should not be used for legal purposes. Drug Cut-Off Concentration: AMPH 1000 ng/mL ABELARDO 200 ng/mL JESSE 200 ng/mL COCM 300 ng/mL OP 300 ng/mL PCP 25 ng/mL THC 20 ng/mL Complete Blood Count Auto Di ffon 12-27-2024 Basophils (Bld) [#/Vol] 0.0 10*3/uL Normal 0.0-0.2 [facility] Comment on above: Order Comment: NONFA STING.JKW Result Comment: PERF ORMED BY: [place] [address] PATHOLOGIST COMMUNITY OUTREACH COORDINATOR LEÓN GARCIA M.D. Performed By: #### H CV RX PCR, RPR W RFX, RUBELLA IGG, HBSAG, HIV SCREEN #### [facility] , #### CUU, A1C WTH eA, CBC, URDS #### [facility] [address] [place] [address] [place] Basophils/100 WBC (Bld) 0.6 % Normal . [facility] Comment on above: Order Comment: NONFA STING.JKW Performed By: #### H CV RX PCR, RPR W RFX, RUBELLA IGG, HBSAG, HIV SCREEN #### [facility] , #### CUU, A1C WTH eA, CBC, URDS #### [facility] [address] [place] [address] [place] Eosinophils (Bld) [#/Vol] 0.1 10*3/uL Normal 0.0-0.45 [facility] Comment on above: Order Comment: NONFA STING.JKW Performed By: #### H CV RX PCR, RPR W RFX, RUBELLA IGG, HBSAG, HIV SCREEN #### [facility] , #### CUU, A1C WTH eA, CBC, URDS #### [address] Eosinophils/100 WBC (Bld) 1.7 % Normal . [facility] Comment on above: Order Comment: NONFA STING.JKW Performed By: #### H CV RX PCR, RPR W RFX, RUBELLA IGG, HBSAG, HIV SCREEN #### [facility] , #### CUU, A1C WTH eA, CBC, URDS #### [address] Erythrocyte distribution width (RBC) [Ratio] 13.7 % Normal 11.9-15.3 [facility] Comment on above: Order Comment: NONFA STING.JKW Performed By: #### H CV RX PCR, RPR W RFX, RUBELLA IGG, HBSAG, HIV SCREEN #### [facility] , #### CUU, A1C WTH eA, CBC, URDS #### [address] Hematocrit (Bld) [Volume fraction] 38.2 % Normal 34.0-46.4 [facility] Comment on above: Order Comment: NONFA STING.JKW Performed By: #### H CV RX PCR, RPR W RFX, RUBELLA IGG, HBSAG, HIV SCREEN #### [facility] , #### CUU, A1C WTH eA, CBC, URDS #### [address] Hemoglobin (Bld) [Mass/Vol] 13.0 g/dL Normal 11.8-15.4 [facility] Comment on above: Order Comment: NONFA STING.JKW Performed By: #### H CV RX PCR, RPR W RFX, RUBELLA IGG, HBSAG, HIV SCREEN #### [facility] , #### CUU, A1C WTH eA, CBC, URDS #### [address] Lymphocytes (Bld) [#/Vol] 1.2 10*3/uL Normal 1.00-4.8 [facility] Comment on above: Order Comment: NONFA STING.JKW Performed By: #### H CV RX PCR, RPR W RFX, RUBELLA IGG, HBSAG, HIV SCREEN #### [facility] , #### CUU, A1C WTH eA, CBC, URDS #### [place] [address] [place] Lymphocytes/100 WBC (Bld) 19.5 % Normal . [facility] Comment on above: Order Comment: NONFA STING.JKW Performed By: #### H CV RX PCR, RPR W RFX, RUBELLA IGG, HBSAG, HIV SCREEN #### [facility] , #### CUU, A1C WTH eA, CBC, URDS #### [address] MCH (RBC) [Entitic mass] 27.8 pg Normal 24.7-34.3 [facility] Comment on above: Order Comment: NONFA STING.JKW Performed By: #### H CV RX PCR, RPR W RFX, RUBELLA IGG, HBSAG, HIV SCREEN #### [facility] , #### CUU, A1C WTH eA, CBC, URDS #### [address] MCV (RBC) [Entitic vol] 81.5 fL Normal 80-100 [facility] Comment on above: Order Comment: NONFA STING.JKW Performed By: #### H CV RX PCR, RPR W RFX, RUBELLA IGG, HBSAG, HIV SCREEN #### [facility] , #### CUU, A1C WTH eA, CBC, URDS #### [address] Mean Corpuscular HGB Conc 34.1 g/dL Normal 32.0-35.0 [facility] Comment on above: Order Comment: NONFA STING.JKW Performed By: #### H CV RX PCR, RPR W RFX, RUBELLA IGG, HBSAG, HIV SCREEN #### [facility] , #### CUU, A1C WTH eA, CBC, URDS #### [place] [address] [place] Monocytes (Bld) [#/Vol] 0.4 10*3/uL Normal 0.0-0.8 [facility] Comment on above: Order Comment: NONFA STING.JKW Performed By: #### H CV RX PCR, RPR W RFX, RUBELLA IGG, HBSAG, HIV SCREEN #### [facility] , #### CUU, A1C WTH eA, CBC, URDS #### [place] [address] [place] Monocytes/100 WBC (Bld) 6.7 % Normal . [facility] Comment on above: Order Comment: NONFA STING.JKW Performed By: #### H CV RX PCR, RPR W RFX, RUBELLA IGG, HBSAG, HIV SCREEN #### [facility] , #### CUU, A1C WTH eA, CBC, URDS #### [place] [address] [place] Neutrophils (Bld) [#/Vol] 4.5 10*3/uL Normal 1.8-7.7 [facility] Comment on above: Order Comment: NONFA STING.JKW Performed By: #### H CV RX PCR, RPR W RFX, RUBELLA IGG, HBSAG, HIV SCREEN #### [facility] , #### CUU, A1C WTH eA, CBC, URDS #### [place] [address] [place] Neutrophils/100 WBC (Bld) 71.5 % Normal . [facility] Comment on above: Order Comment: NONFA STING.JKW Performed By: #### H CV RX PCR, RPR W RFX, RUBELLA IGG, HBSAG, HIV SCREEN #### [facility] , #### CUU, A1C WTH eA, CBC, URDS #### [address] NRBC% 0.0 /100{WBC} Normal 0-0.5 [facility] Comment on above: Order Comment: NONFA STING.JKW Performed By: #### H CV RX PCR, RPR W RFX, RUBELLA IGG, HBSAG, HIV SCREEN #### [facility] , #### CUU, A1C WTH eA, CBC, URDS #### [address] Platelet mean volume (Bld) [Entitic vol] 8.8 fL Normal 6.3-10.7 [facility] Comment on above: Order Comment: NONFA STING.JKW Performed By: #### H CV RX PCR, RPR W RFX, RUBELLA IGG, HBSAG, HIV SCREEN #### [facility] , #### CUU, A1C WTH eA, CBC, URDS #### [address] Platelets (Bld) [#/Vol] 225 10*3/uL Normal 150-450 [facility] Comment on above: Order Comment: NONFA STING.JKW Performed By: #### H CV RX PCR, RPR W RFX, RUBELLA IGG, HBSAG, HIV SCREEN #### [facility] , #### CUU, A1C WTH eA, CBC, URDS #### [address] RBC (Bld) [#/Vol] 4.69 10*6/uL Normal 3.60-5.00 [facility] Comment on above: Order Comment: NONFA STING.JKW Performed By: #### H CV RX PCR, RPR W RFX, RUBELLA IGG, HBSAG, HIV SCREEN #### [facility] , #### CUU, A1C WTH eA, CBC, URDS #### [facility] [address] WBC (Bld) [#/Vol] 6.4 10*3/uL Normal 3.8-11.6 [facility] Comment on above: Order Comment: NONFA STING.JKW Performed By: #### H CV RX PCR, RPR W RFX, RUBELLA IGG, HBSAG, HIV SCREEN #### [facility] , #### CUU, A1C WTH eA, CBC, URDS #### [facility] [address] Drug Screen,Urineon 12-28-19 25 Amphetamine Screen,Urine Negative Normal Negative [facility] Comment on above: Order Comment: NONFA STING.JKW Performed By: #### H CV RX PCR, RPR W RFX, RUBELLA IGG, HBSAG, HIV SCREEN ####[facility] ,#### CUU, A1C WTH eA, CBC, URDS ####[facility] Barbiturate Screen,Urine Negative Normal Negative [facility] Comment on above: Order Comment: NONFA STING.JKW Performed By: #### H CV RX PCR, RPR W RFX, RUBELLA IGG, HBSAG, HIV SCREEN ####[facility] ,#### CUU, A1C WTH eA, CBC, URDS ####[facility] Benzodiazepines Screen,Urine Negative Normal Negative [facility] Comment on above: Order Comment: NONFA STING.JKW Performed By: #### H CV RX PCR, RPR W RFX, RUBELLA IGG, HBSAG, HIV SCREEN ####[facility] ,#### CUU, A1C WTH eA, CBC, URDS ####[place] [id number] [place] [id number] [facility] Cannabinoid Screen,Urine Negative Normal Negative [facility] Comment on above: Order Comment: NONFA STING.JKW Result Comment: Thes e are unconfirmed results and should not be used for legal purposes. Drug Cut-Off Concentration: AMPH 1000 ng/mL ABELARDO 200 ng/mL JESSE 200 ng/mL COCM 300 ng/mL OP 300 ng/mL PCP 25 ng/mL THC 20 ng/mL PERFORMED BY: [facility] [address] [place] [address] PATHOLOGIST COMMUNITY OUTREACH COORDINATOR LEÓN GARCIA M.D. Performed By: #### H CV RX PCR, RPR W RFX, RUBELLA IGG, HBSAG, HIV SCREEN ####[facility] ,#### CUU, A1C WTH eA, CBC, URDS ####[address] Cocaine Screen,Urine Negative Normal Negative [facility] Comment on above: Order Comment: NONFA STING.JKW Performed By: #### H CV RX PCR, RPR W RFX, RUBELLA IGG, HBSAG, HIV SCREEN ####[facility] ,#### CUU, A1C WTH eA, CBC, URDS ####[place] [id number] [facility] Opiate Screen,Urine Negative Normal Negative [facility] Comment on above: Order Comment: NONFA STING.JKW Performed By: #### H CV RX PCR, RPR W RFX, RUBELLA IGG, HBSAG, HIV SCREEN ####[facility] ,#### CUU, A1C WTH eA, CBC, URDS ####[address] Phencyclidine Screen,Urine Negative Normal Negative [facility] Comment on above: Order Comment: NONFA STING.JKW Performed By: #### H CV RX PCR, RPR W RFX, RUBELLA IGG, HBSAG, HIV SCREEN ####[facility] ,#### CUU, A1C WT eA, CBC, URDS ####[facility] [id number] [place] [id number] [place] Eosinophils Auto (Bld) [#/Vo l]Ordered By: Yasmani Abdullahi on 12-27-2024 Eosinophils (Bld) [#/Vol] Automated eosinophil count 0.0-0.45 [facility] Eosinophils/100 WBC Auto (Bl d)Ordered By: Yasmani Abdullahi on 12-27-2024 Eosinophils/100 WBC (Bld) Automated eosinophil % . [facility] Erythrocyte distribution wid th Auto (RBC) [Ratio]Ordered By: Yasmani Abdullahi on 12-27-2024 Erythrocyte distribution width (RBC) [Ratio] Erythrocyte distribution width [Ratio] by Automated count 11.9-15.3 [facility] HIV 1/O/2 Antigen/Antibodyon 12-27-2024 HIV Screen 4th Generation Non-Reactive Normal Non Reactive [facility] Comment on above: Order Comment: NONFA STING.JKW Result Comment: HIV- 1/HIV-2 antibodies and HIV-1 p24 antigen were NOT detected. There is no laboratory evidence of HIV infection. HIV Negative Performed at: [facility] [id number] Transportation Services Representative: Garfield Fay PhD, Phone: [phone] Performed By: #### H CV RX PCR, RPR W RFX, RUBELLA IGG, HBSAG, HIV SCREEN ####[facility] ,#### CUU, A1C WTH eA, CBC, URDS ####[facility] [id number] [place] [id number] [facility] HIV antibody and antigen nails elOrdered By: Yasmani Abdullahi on 12-27-2024 HIV 1+2 Ab+HIV1 p24 Ag IA Ql HIV 1 and HIV-2 antibody assay with HIV-1 p24 antigen detection Non Reactive [facility] Comment on above: HIV-1/HIV-2 antibodi es and HIV-1 p24 antigen were NOTdetected. There is no laboratory evidence of HIV infection.HIV NegativePerformed at: [facility], [place], [place] [id number] Director: Garfield Fay PhD, Phone: [phone] Hematocrit Auto (Bld) [Volum e fraction]Ordered By: Yasmani Abdullahi on 12-27-2024 Hematocrit (Bld) [Volume fraction] Hematocrit [Volume Fraction] of Blood by Automated count 34.0-46.4 [facility] Hemoglobin A1c/Hemoglobin.to dylan in BloodOrdered By: Yasmani Abdullahi on 12-27-2024 HbA1c (Bld) [Mass fraction] Hemoglobin A1c percentage 4.3-5.6 [facility] Comment on above: Increased risk for d iabetes: 5.7 - 6.4diabetes: >6.4glycemic control for adults with diabetes: <7.0 Hemoglobin [Mass/volume] in BloodOrdered By: Yasmani Abdullahi on 12-27-2024 Hemoglobin (Bld) [Mass/Vol] Hemoglobin [Mass/volume] in Blood 11.8-15.4 [facility] Hep C Ab wRfx to Qnt PCRon 0 12-27-2024 Hepatitis C Virus Antibody Non-Reactive Normal Non Reactive [facility] Comment on above: Order Comment: NONFA STING.JKW Performed By: #### H CV RX PCR, RPR W RFX, RUBELLA IGG, HBSAG, HIV SCREEN ####[facility] ,#### CUU, A1C WTH eA, CBC, URDS ####[facility] [id number] Interpretation Hepatitis C Comment Normal . [facility] Comment on above: Order Comment: NONFA STING.JKW Result Comment: Not infected with HCV unless early or acute infection is suspected (which may be delayed in an immunocompromised individual), or other evidence exists to indicate HCV infection. Performed By: #### H CV RX PCR, RPR W RFX, RUBELLA IGG, HBSAG, HIV SCREEN ####[facility] ,#### CUU, A1C WTH eA, CBC, URDS ####[facility] [id number] [place] [id number] [facility] Hepatitis B Surface Antigeno n 12-27-2024 HBsAg Screen Negative Normal Negative [facility] Comment on above: Order Comment: NONFA STING.JKW Result Comment: Perf ormed at: CB - [facility] [address] [id number] Transportation Services Representative: Garfield Fay PhD, Phone: [phone] PERFORMED BY: [facility] [address] [place] [address] PATHOLOGIST COMMUNITY OUTREACH COORDINATOR LEÓN GARCIA M.D. Performed By: #### H CV RX PCR, RPR W RFX, RUBELLA IGG, HBSAG, HIV SCREEN ####[facility] ,#### CUU, A1C WTH eA, CBC, URDS ####[facility] [id number] [place] [address] [facility] Hepatitis C virus IgG Ab [Pr esence] in Serum or Plasma by ImmunoassayOrdered By: Yasmani Abdullahi on 12-27-2024 HCV IgG IA Ql Hepatitis C virus Ig G Ab [Presence] in Serum or Plasma by Immunoassay Non Reactive [facility] Leukocytes [#/volume] correc randolph for nucleated erythrocytes in Blood by Automated counOrdered By: Yasmani Abdullahi on 12-27-2024 WBC corrected for nucl RBC Auto (Bld) [#/Vol] Leukocytes [#/volume] corrected for nucleated erythrocytes in Blood by Automated coun 3.8-11.6 [facility] Lymphocytes Auto (Bld) [#/Vo l]Ordered By: Yasmani Abdullahi on 12-27-2024 Lymphocytes (Bld) [#/Vol] Lymphocytes [#/volume] in Blood by Automated count 1.00-4.8 [facility] Lymphocytes/100 WBC Auto (Bl d)Ordered By: Yasmani Abdullahi on 12-27-2024 Lymphocytes/100 WBC (Bld) Lymphocytes/100 leukocytes in Blood by Automated count . [facility] MCH Auto (RBC) [Entitic mass ]Ordered By: Yasmani Abdullahi on 12-27-2024 MCH (RBC) [Entitic mass] MCH [Entitic mass] by Automated count 24.7-34.3 [facility] MCHC Auto (RBC) [Mass/Vol]Or dered By: Yasmani Abdullahi on 12-27-2024 MCHC (RBC) [Mass/Vol] MCHC [Mass/volume] by Automated count 32.0-35.0 [facility] MCV Auto (RBC) [Entitic vol] Ordered By: Yasmani Abdullahi on 12-27-2024 MCV (RBC) [Entitic vol] MCV [Entitic volume] by Automated count 80-100 [facility] Monocytes Auto (Bld) [#/Vol] Ordered By: Yasmani Abdullahi on 12-27-2024 Monocytes (Bld) [#/Vol] Automated blood monocyte count 0.0-0.8 [facility] Monocytes/100 WBC Auto (Bld) Ordered By: Yasmani Abdullahi on 12-27-2024 Monocytes/100 WBC (Bld) Automated monocyte % . [facility] Neutrophils Auto (Bld) [#/Vo l]Ordered By: Yasmani Abdullahi on 12-27-2024 Neutrophils (Bld) [#/Vol] Neutrophils [#/volume] in Blood by Automated count 1.8-7.7 [facility] Neutrophils/100 WBC Auto (Bl d)Ordered By: Yasmani Abdullahi on 12-27-2024 Neutrophils/100 WBC (Bld) Automated neutrophil % . [facility] No Panel InformationOrdered By: Yasmani Abdullahi on 12-27-2024 Hepatitis C Interpretation Comment . [facility] Comment on above: Not infected with HC V unless early or acute infection issuspected (which may be delayed in an immunocompromisedindividual), or other evidence exists to indicate HCVinfection. Nucleated erythrocytes [Pres ence] in Blood by Automated countOrdered By: Yasmani Abdullahi on 12-27-2024 Nucleated RBC Auto Ql (Bld) Nucleated erythrocytes [Presence] in Blood by Automated count 0-0.5 [facility] Opiates [Presence] in Urine by Screen methodOrdered By: Yasmani Abdullahi on 12-27-2024 Opiates Screen Ql (U) Opiates [Presence] in Urine by Screen method Negative [facility] Phencyclidine Screen Ql (U)O rdered By: Yasmani Abdullahi on 12-27-2024 Phencyclidine Ql (U) Phencyclidine [Pres ence] in Urine by Screen method Negative [facility] Platelet mean volume Auto (B ld) [Entitic vol]Ordered By: Yasmani Abdullahi on 12-27-2024 Platelet mean volume (Bld) [Entitic vol] Platelet mean volume [Entitic volume] in Blood by Automated count 6.3-10.7 [facility] Platelets Auto (Bld) [#/Vol] Ordered By: Yasmani Abdullahi on 12-27-2024 Platelets (Bld) [#/Vol] Platelets [#/volume] in Blood by Automated count 150-450 [facility] RBC Auto (Bld) [#/Vol]Ordere d By: Yasmani Abdullahi on 12-27-2024 RBC (Bld) [#/Vol] Erythrocytes [#/volu me] in Blood by Automated count 3.60-5.00 [facility] RPR w/rfx to Quant TP Abson 12-27-2024 RPR, Rfx Quant RPR Non-Reactive Normal Non Reactive [facility] Comment on above: Order Comment: NONFA STING.JKW Result Comment: Perf ormed at: CB - [facility] [address] [id number] Transportation Services Representative: Garfield Fay PhD, Phone: [phone] PERFORMED BY: [facility] [address] [place] [address] PATHOLOGIST COMMUNITY OUTREACH COORDINATOR LEÓN GARCIA M.D. Performed By: #### H CV RX PCR, RPR W RFX, RUBELLA IGG, HBSAG, HIV SCREEN ####[facility] ,#### CUU, A1C WTH eA, CBC, URDS ####[facility] [id number] [place] [address] [place] Rubella IgG Antibodyon 12-27 Rubella IgG Antibody 1.22 Normal Immune >0.99 [facility] Comment on above: Order Comment: NONFA STING.JKW Result Comment: Non- immune <0.90 Equivocal 0.90 - 0.99 Immune >0.99 Performed By: #### H CV RX PCR, RPR W RFX, RUBELLA IGG, HBSAG, HIV SCREEN ####[facility] ,#### CUU, A1C WTH eA, CBC, URDS ####[facility] [id number] [place] [address] [facility] Rubella IgG antibody assayOr dered By: Yasmani Abdullahi on 12-27-2024 Rubella IgG Antibody 1.22 index Immune >0.99 [facility] Comment on above: Non-immune <0.90 Equ ivocal 0.90 - 0.99 Immune >0.99 Serum RPR testOrdered By: Rishi Abdullahi on 12-27-2024 Reagin Ab RPR Ql (S) Reagin Ab [Presence ] in Serum by RPR Non Reactive [facility] Comment on above: Performed at: [facility] [address] [id number] Director: Garfield Fay PhD, Phone: [phone] Serum or plasma hepatitis B virus surface antigen detection by immunoassayOrdered By: Yasmani Abdullahi on 12-27-2024 HBV surface Ag IA Ql Hepatitis B virus s urface Ag [Presence] in Serum or Plasma by Immunoassay Negative [facility] Comment on above: Performed at: [facility] [address] [id number] Director: Garfield Fay PhD, Phone: [phone] Type and Screenon 12-27-2024 ABO and Rh group Nom (Bld) Blood group B Rh(D) negative Normal [facility] Comment on above: Order Comment: NONFA STING.JKW Result Comment: PERF ORMED BY: [facility] [address] [place] [address] PATHOLOGIST COMMUNITY OUTREACH COORDINATOR LEÓN GARCIA M.D. Urine Cultureon 12-27-2024 Bacteria identified Cx Nom (U) NONFASTING.JKW 15,000 colonies/ml mixed bacterial skin contaminants 2 Days PERFORMED BY: [facility] [address] [place] [address] PATHOLOGIST COMMUNITY OUTREACH COORDINATOR LEÓN GARCIA M.D. Normal [facility] Comment on above: Performed By: #### H CV RX PCR, RPR W RFX, RUBELLA IGG, HBSAG, HIV SCREEN ####[facility] ,#### CUU, A1C WTH eA, CBC, URDS ####[facility] [id number] [place] [address] [facility] Urine cultureOrdered By: Paramjit Abdullahi on 12-27-2024 Bacteria identified Cx Nom (U) Urine culture [facility] WBC Auto (Bld) [#/Vol]Ordere d By: Yasmani Abdullahi on 12-27-2024 WBC (Bld) [#/Vol] Leukocytes [#/volume ] in Blood by Automated count 3.8-11.6 [facility] US OB TRANSVAGINALon 025 US OB TRANSVAGINAL [...] II, MD, PHD at 22-Dec-2024 08:23:50 AM [facility] Normal Not Available Comment on above: Order Comment: US OB TRANSVAGINAL No LMP recorded. Alanine aminotransferase [En zymatic activity/volume] in Serum or PlasmaOrdered By: Jose Forman on 12-06-2024 ALT [Catalytic activity/Vol] Alanine aminotransferase [Enzymatic activity/volume] in Serum or Plasma 7-52 [facility] Albumin [Mass/volume] in Ser um or Plasma by Bromocresol green (BCG) dye binding methoOrdered By: Jose Forman on 12-06-2024 Albumin BCG dye [Mass/Vol] Albumin [Mass/volume] in Serum or Plasma by Bromocresol green (BCG) dye binding metho 3.5-5.7 [facility] Alkaline phosphatase [Enzyma tic activity/volume] in Serum or PlasmaOrdered By: Jose Forman on 12-06-2024 ALP [Catalytic activity/Vol] Alkaline phosphatase [Enzymatic activity/volume] in Serum or Plasma 34-104 [facility] Appearance of UrineOrdered B y: Jose Forman on 12-06-2024 Appearance (U) Urine appearance Clear [facility] Aspartate aminotransferase [ Enzymatic activity/volume] in Serum or PlasmaOrdered By: Jose Forman on 12-06-2024 AST [Catalytic activity/Vol] Aspartate aminotransferase [Enzymatic activity/volume] in Serum or Plasma Low 13-39 [facility] Bacteria [Presence] in Urine by AutomatedOrdered By: Jose Forman on 12-06-2024 Bacteria Auto Ql (U) Bacteria [Presence] in Urine by Automated None Seen [facility] Basic Metabolic Panelon 11-18 Anion gap [Moles/Vol] 7.0 mmol/L Normal 6.0-15.0 [facility] Comment on above: Performed By: #### C BC, HCGQNT, LIPASE, PT, HS TROP, PTT, HEPATIC, BMP ####[id number] [place] [address] [facility] Calcium [Mass/Vol] 9.1 mg/dL Normal 8.6-10.3 [facility] Comment on above: Performed By: #### C BC, HCGQNT, LIPASE, PT, HS TROP, PTT, HEPATIC, BMP ####[place] [id number] [address] Chloride [Moles/Vol] 106 mmol/L Normal 98-107 [facility] Comment on above: Performed By: #### C BC, HCGQNT, LIPASE, PT, HS TROP, PTT, HEPATIC, BMP ####[place] [id number] [address] CO2 [Moles/Vol] 24.6 mmol/L Normal 21.0-31.0 [facility] Comment on above: Performed By: #### C BC, HCGQNT, LIPASE, PT, HS TROP, PTT, HEPATIC, BMP ####[address] Creatinine [Mass/Vol] 0.70 mg/dL Normal 0.60-1.20 [facility] Comment on above: Performed By: #### C BC, HCGQNT, LIPASE, PT, HS TROP, PTT, HEPATIC, BMP ####[address] Creatinine Clr Calc Pharmacy 129.71 Normal [facility] Comment on above: Performed By: #### C BC, HCGQNT, LIPASE, PT, HS TROP, PTT, HEPATIC, BMP ####[address] GFR/1.73 sq M.predicted MDRD (S/P/Bld) [Vol rate/Area] mL/min/{1.73_m2} Normal [facility] Comment on above: Performed By: #### C BC, HCGQNT, LIPASE, PT, HS TROP, PTT, HEPATIC, BMP ####[address] Glucose [Mass/Vol] 94 mg/dL Normal 70-100 [facility] Comment on above: Result Comment: [place] Glucose Reference Range is dependent on time and content of last meal. Glucose of more than 200 mg/dL in a nonstressed, ambulatory subject supports the diagnosis of Diabetes Mellitus. ADA recommended reference range Performed By: #### C BC, HCGQNT, LIPASE, PT, HS TROP, PTT, HEPATIC, BMP ####[facility] Potassium [Moles/Vol] 3.6 mmol/L Normal 3.5-5.1 [facility] Comment on above: Performed By: #### C BC, HCGQNT, LIPASE, PT, HS TROP, PTT, HEPATIC, BMP ####[place] [id number] [address] Sodium [Moles/Vol] 134 mmol/L Low 136-145 [facility] Comment on above: Performed By: #### C BC, HCGQNT, LIPASE, PT, HS TROP, PTT, HEPATIC, BMP ####[place] [id number] [address] Urea nitrogen [Mass/Vol] 9 mg/dL Normal 7-25 [facility] Comment on above: Performed By: #### C BC, HCGQNT, LIPASE, PT, HS TROP, PTT, HEPATIC, BMP ####[place] [id number] Basophils Auto (Bld) [#/Vol] Ordered By: Jose Forman on 12-06-2024 Basophils (Bld) [#/Vol] Automated basophil count 0.0-0.2 [facility] Basophils/100 WBC Auto (Bld) Ordered By: Jose Forman on 12-06-2024 Basophils/100 WBC (Bld) Automated basophil % . [facility] Bilirubin Test strip Ql (U)O rdered By: Jose Forman on 12-06-2024 Bilirubin Ql (U) Bilirubin.total [Presence] in Urine by Test strip Negative [facility] Bilirubin.direct [Mass/volum e] in Serum or PlasmaOrdered By: Jose Forman on 12-06-2024 Bilirubin.direct [Mass/Vol] Bilirubin.direct [Mass/volume] in Serum or Plasma 0.03-0.18 [facility] Bilirubin.total [Mass/volume ] in Serum or PlasmaOrdered By: Jose Forman on 12-06-2024 Bilirubin [Mass/Vol] Bilirubin.total [Mass/volume] in Serum or Plasma 0.3-1.0 [facility] Calcium [Mass/volume] in Ser um or PlasmaOrdered By: Jose Forman on 12-06-2024 Calcium [Mass/Vol] Calcium [Mass/volume ] in Serum or Plasma 8.6-10.3 [facility] Carbon dioxide, total [Moles /volume] in Serum or PlasmaOrdered By: Jose Forman on 12-06-2024 CO2 [Moles/Vol] Carbon dioxide, tota l [Moles/volume] in Serum or Plasma 21.0-31.0 [facility] Chloride [Moles/volume] in S eaomn or PlasmaOrdered By: Jose Forman on 12-06-2024 Chloride [Moles/Vol] Chloride [Moles/vol ume] in Serum or Plasma 98-107 [facility] Choriogonadotropin.beta subu nit [Units/volume] in Serum or PlasmaOrdered By: Jose Forman on 12-06-2024 HCG.beta subunit Qn Choriogonadotropin.b eta subunit [Units/volume] in Serum or Plasma [facility] Comment on above: Approximate Approxim ate hCG Gestational Age Range (mIU/ml) (weeks)0.2-1 5-50 1-2 50-500 2-3 100-5,000 3-4 500-10,000 4-5 1,000-50,000 5-6 10,000-100,000 6-8 15,000-200,000 8-12 10,000-100,000 Color Auto (U)Ordered By: Edin Forman on 12-06-2024 Color (U) Color of Urine by Auto Yellow Fi [facility] Complete Blood Count Auto Di ffon 12-06-2024 Basophils (Bld) [#/Vol] 0.0 10*3/uL Normal 0.0-0.2 [facility] Comment on above: Result Comment: PERF ORMED BY: [facility] [address] [place] [address] PATHOLOGIST COMMUNITY OUTREACH COORDINATOR LEÓN GARCIA M.D. Performed By: #### C BC, HCGQNT, LIPASE, PT, HS TROP, PTT, HEPATIC, BMP ####[facility] [id number] [place] [address] [facility] Basophils/100 WBC (Bld) 0.4 % Normal . [facility] Comment on above: Performed By: #### C BC, HCGQNT, LIPASE, PT, HS TROP, PTT, HEPATIC, BMP ####[address] Eosinophils (Bld) [#/Vol] 0.0 10*3/uL Normal 0.0-0.45 [facility] Comment on above: Performed By: #### C BC, HCGQNT, LIPASE, PT, HS TROP, PTT, HEPATIC, BMP ####[address] Eosinophils/100 WBC (Bld) 0.4 % Normal . [facility] Comment on above: Performed By: #### C BC, HCGQNT, LIPASE, PT, HS TROP, PTT, HEPATIC, BMP ####[address] Erythrocyte distribution width (RBC) [Ratio] 13.0 % Normal 11.9-15.3 [facility] Comment on above: Performed By: #### C BC, HCGQNT, LIPASE, PT, HS TROP, PTT, HEPATIC, BMP ####[address] Hematocrit (Bld) [Volume fraction] 38.5 % Normal 34.0-46.4 [facility] Comment on above: Performed By: #### C BC, HCGQNT, LIPASE, PT, HS TROP, PTT, HEPATIC, BMP ####[address] Hemoglobin (Bld) [Mass/Vol] 13.4 g/dL Normal 11.8-15.4 [facility] Comment on above: Performed By: #### C BC, HCGQNT, LIPASE, PT, HS TROP, PTT, HEPATIC, BMP ####[address] Lymphocytes (Bld) [#/Vol] 1.1 10*3/uL Normal 1.00-4.8 [facility] Comment on above: Performed By: #### C BC, HCGQNT, LIPASE, PT, HS TROP, PTT, HEPATIC, BMP ####[address] Lymphocytes/100 WBC (Bld) 14.1 % Normal . [facility] Comment on above: Performed By: #### C BC, HCGQNT, LIPASE, PT, HS TROP, PTT, HEPATIC, BMP ####[address] MCH (RBC) [Entitic mass] 27.6 pg Normal 24.7-34.3 [facility] Comment on above: Performed By: #### C BC, HCGQNT, LIPASE, PT, HS TROP, PTT, HEPATIC, BMP ####[address] MCV (RBC) [Entitic vol] 79.6 fL Low 80-100 [facility] Comment on above: Performed By: #### C BC, HCGQNT, LIPASE, PT, HS TROP, PTT, HEPATIC, BMP ####[address] Mean Corpuscular HGB Conc 34.7 g/dL Normal 32.0-35.0 [facility] Comment on above: Performed By: #### C BC, HCGQNT, LIPASE, PT, HS TROP, PTT, HEPATIC, BMP ####[address] Monocytes (Bld) [#/Vol] 0.5 10*3/uL Normal 0.0-0.8 [facility] Comment on above: Performed By: #### C BC, HCGQNT, LIPASE, PT, HS TROP, PTT, HEPATIC, BMP ####[address] Monocytes/100 WBC (Bld) 16.18 % Normal 0.00-20.00 [facility] Comment on above: Performed By: #### C BC, HCGQNT, LIPASE, PT, HS TROP, PTT, HEPATIC, BMP ####[address] Monocytes/100 WBC (Bld) 6.4 % Normal . [facility] Comment on above: Performed By: #### C BC, HCGQNT, LIPASE, PT, HS TROP, PTT, HEPATIC, BMP ####[address] Neutrophils (Bld) [#/Vol] 5.9 10*3/uL Normal 1.8-7.7 [facility] Comment on above: Performed By: #### C BC, HCGQNT, LIPASE, PT, HS TROP, PTT, HEPATIC, BMP ####[address] Neutrophils/100 WBC (Bld) 78.7 % Normal . [facility] Comment on above: Performed By: #### C BC, HCGQNT, LIPASE, PT, HS TROP, PTT, HEPATIC, BMP ####[address] NRBC% 0.0 /100{WBC} Normal 0-0.5 [facility] Comment on above: Performed By: #### C BC, HCGQNT, LIPASE, PT, HS TROP, PTT, HEPATIC, BMP ####[address] Platelet mean volume (Bld) [Entitic vol] 8.7 fL Normal 6.3-10.7 [facility] Comment on above: Performed By: #### C BC, HCGQNT, LIPASE, PT, HS TROP, PTT, HEPATIC, BMP ####[address] Platelets (Bld) [#/Vol] 230 10*3/uL Normal 150-450 [facility] Comment on above: Performed By: #### C BC, HCGQNT, LIPASE, PT, HS TROP, PTT, HEPATIC, BMP ####[address] RBC (Bld) [#/Vol] 4.84 10*6/uL Normal 3.60-5.00 [facility] Comment on above: Performed By: #### C BC, HCGQNT, LIPASE, PT, HS TROP, PTT, HEPATIC, BMP ####[facility] [place] [address] [place] WBC (Bld) [#/Vol] 7.6 10*3/uL Normal 3.8-11.6 [facility] Comment on above: Performed By: #### C BC, HCGQNT, LIPASE, PT, HS TROP, PTT, HEPATIC, BMP ####[facility] [place] [address] [facility] Creatinine [Mass/volume] in Serum or PlasmaOrdered By: Jose Forman on 12-06-2024 Creatinine [Mass/Vol] Creatinine [Mass/v olume] in Serum or Plasma 0.60-1.20 [facility] Dipstick and Microscopicon 0 12-06-2024 Appearance (U) Clear Normal Clear [facility] Comment on above: Order Comment: Name Collection Type:: Clean-Voided Midstream Performed By: #### U HCG, ADDONUAPLUS #### [facility] [address] [place] [address] [place] Bacteria,Urine None Seen Normal None Seen [facility] Comment on above: Order Comment: Name Collection Type:: Clean-Voided Midstream Performed By: #### U HCG, ADDONUAPLUS #### [facility] [address] [place] [address] [place] Bilirubin,Urine Negative Normal Negative [facility] Comment on above: Order Comment: Name Collection Type:: Clean-Voided Midstream Performed By: #### U HCG, ADDONUAPLUS #### [facility] [address] [place] [id number] [place] Color (U) Yellow Normal Yellow [facility] Comment on above: Order Comment: Name Collection Type:: Clean-Voided Midstream Performed By: #### U HCG, ADDONUAPLUS #### [facility] [address] [place] [id number] [place] Glucose Ql (U) Normal Normal Normal [facility] Comment on above: Order Comment: Name Collection Type:: Clean-Voided Midstream Performed By: #### U HCG, ADDONUAPLUS #### [facility] [address] [place] [address] [place] Hyaline Casts,Urine None Normal 0-8 [facility] Comment on above: Order Comment: Name Collection Type:: Clean-Voided Midstream Performed By: #### U HCG, ADDONUAPLUS #### [facility] [address] [place] [address] Ketones Ql (U) 1+ High Negative [facility] Comment on above: Order Comment: Name Collection Type:: Clean-Voided Midstream Performed By: #### U HCG, ADDONUAPLUS #### [address] Leukocyte esterase Test strip Ql (U) Negative Normal Negative [facility] Comment on above: Order Comment: Name Collection Type:: Clean-Voided Midstream Performed By: #### U HCG, ADDONUAPLUS #### [place] [address] [place] Mucus,Urine Rare Normal [facility] Comment on above: Order Comment: Name Collection Type:: Clean-Voided Midstream Performed By: #### U HCG, ADDONUAPLUS #### [place] [address] [place] Nitrite,Urine Negative Normal Negative [facility] Comment on above: Order Comment: Name Collection Type:: Clean-Voided Midstream Performed By: #### U HCG, ADDONUAPLUS #### [place] [address] [place] Occult Blood,Urine Negative Normal Negative [facility] Comment on above: Order Comment: Name Collection Type:: Clean-Voided Midstream Performed By: #### U HCG, ADDONUAPLUS #### [place] [address] [place] pH (U) 6.5 [pH] Normal 5.0-9.0 [facility] Comment on above: Order Comment: Name Collection Type:: Clean-Voided Midstream Performed By: #### U HCG, ADDONUAPLUS #### [place] [address] [place] Protein,Urine Trace High Negative [facility] Comment on above: Order Comment: Name Collection Type:: Clean-Voided Midstream Performed By: #### U HCG, ADDONUAPLUS #### [place] [address] [place] RBC,Urine 1-2 Normal 0-4 [facility] Comment on above: Order Comment: Name Collection Type:: Clean-Voided Midstream Performed By: #### U HCG, ADDONUAPLUS #### [place] [address] [place] Specificy Leoti,Urine 1.025 Normal 1.001-1.03 0 [facility] Comment on above: Order Comment: Name Collection Type:: Clean-Voided Midstream Performed By: #### U HCG, ADDONUAPLUS #### [place] [address] [place] Squamous Epithelial Cell,Urine 1-2 Normal 0-2 [facility] Comment on above: Order Comment: Name Collection Type:: Clean-Voided Midstream Performed By: #### U HCG, ADDONUAPLUS #### [place] [address] [place] Urobilinogen,Urine Normal Normal Normal [facility] Comment on above: Order Comment: Name Collection Type:: Clean-Voided Midstream Performed By: #### U HCG, ADDONUAPLUS #### [place] [address] [place] WBC,Urine 1-2 Normal 0-4 [facility] Comment on above: Order Comment: Name Collection Type:: Clean-Voided Midstream Performed By: #### U HCG, ADDONUAPLUS #### [place] [address] [place] ECG 12 lead ECGon 12-06-2024 ECG 12 lead ECG [facility] [place] [address] [place] [address] Electrocardiograph Report Signed Patient: Noris Goetz MR#: [id number] 61 : 1990 Acct:[id number] Age/Sex: 34 / F ADM Date: 12/06/24 Loc: ER Room: Type: [facility] ER Attending Dr: Ordering Provider: Jose Forman [...] branch block Confirmed by Jose FORMAN DO ([id number]) on 12/06/2024 10:38:39 AM Referred By: Electronically Signed By: Jose FORMAN DO Transcribed By: MUS Signed By Jose Forman DO 0 12/06/24 1038 Normal [facility] Eosinophils Auto (Bld) [#/Vo l]Ordered By: Jose Forman on 12-06-2024 Eosinophils (Bld) [#/Vol] Automated eosinophil count 0.0-0.45 [facility] Eosinophils/100 WBC Auto (Bl d)Ordered By: Jose Forman on 12-06-2024 Eosinophils/100 WBC (Bld) Automated eosinophil % . [facility] Epithelial cells.squamous [# /area] in Urine sediment by Automated countOrdered By: Jose Forman on 12-06-2024 Epithelial cells.squamous Auto (Urine sed) [#/Area] Epithelial cells.squamous [#/area] in Urine sediment by Automated count 0-2 [facility] Erythrocyte distribution wid th Auto (RBC) [Ratio]Ordered By: Jose Forman on 12-06-2024 Erythrocyte distribution width (RBC) [Ratio] Erythrocyte distribution width [Ratio] by Automated count 11.9-15.3 [facility] Erythrocytes [#/area] in Uri ne sediment by Automated countOrdered By: Jose Forman on 12-06-2024 RBC Auto (Urine sed) [#/Area] Erythrocytes [#/area] in Urine sediment by Automated count 0-4 [facility] Globulin Calc (S) [Mass/Vol] Ordered By: Jose Forman on 12-06-2024 Globulin (S) [Mass/Vol] Serum globulin measurement by calculation (mass/volume) [facility] Glucose [Mass/volume] in Ser um or PlasmaOrdered By: Jose Forman on 12-06-2024 Glucose [Mass/Vol] Glucose [Mass/volume ] in Serum or Plasma 70-100 [facility] Comment on above: ADA recommended refe rence rangeRandom Glucose Reference Range is dependent on time and content of last meal. Glucose of more than 200 mg/dL in a nonstressed, ambulatory subject supports the diagnosis of Diabetes Mellitus. Glucose [Mass/volume] in Uri ne by Test stripOrdered By: Jose Forman on 12-06-2024 Glucose Test strip (U) [Mass/Vol] Glucose [Mass/volume] in Urine by Test strip Normal [facility] HCG ( test) IA.rapi d Ql (U)Ordered By: Jose Forman on 12-06-2024 HCG ( test) Ql (U) Urine human chorionic gonadotropin (hCG) detection by immunoassay High [facility] HCG,Quantitativeon HCG,Quantitative 842448.00 m[iU]/mL Normal [facility] Comment on above: Result Comment: Appr oximate Approximate hCG Gestational Age Range (mIU/ml) (weeks) 0.2-1 5-50 1-2 50-500 2-3 100-5,000 3-4 500-10,000 4-5 1,000-50,000 5-6 10,000-100,000 6-8 15,000-200,000 8-12 10,000-100,000 PERFORMED BY: [address] [place] [address] PATHOLOGIST COMMUNITY OUTREACH COORDINATOR LEÓN GARCIA M.D. Performed By: #### C BC, HCGQNT, LIPASE, PT, HS TROP, PTT, HEPATIC, BMP ####[facility] [id number] [place] [address] [facility] HCG,Urineon 12-06-2024 Beta HCG ( test) Ql (U) Positive High [facility] Comment on above: Order Comment: Name Collection Type:: Clean-Voided Midstream Result Comment: PERF ORMED BY: [facility] [address] [place] [address] PATHOLOGIST COMMUNITY OUTREACH COORDINATOR LEÓN GARCIA M.D. Performed By: #### U HCG, ADDONUAPLUS #### [facility] [address] Hematocrit Auto (Bld) [Volum e fraction]Ordered By: Jose Forman on 12-06-2024 Hematocrit (Bld) [Volume fraction] Hematocrit [Volume Fraction] of Blood by Automated count 34.0-46.4 [facility] Hemoglobin Test strip Ql (U) Ordered By: Jose Forman on 12-06-2024 Hemoglobin Ql (U) Hemoglobin [Presence ] in Urine by Test strip Negative [facility] Hemoglobin [Mass/volume] in BloodOrdered By: Jose Forman on 12-06-2024 Hemoglobin (Bld) [Mass/Vol] Hemoglobin [Mass/volume] in Blood 11.8-15.4 [facility] Hepatic Panelon 12-06-2024 Albumin [Mass/Vol] 4.1 g/dL Normal 3.5-5.7 [facility] Comment on above: Performed By: #### C BC, HCGQNT, LIPASE, PT, HS TROP, PTT, HEPATIC, BMP ####[place] [id number] [address] Albumin/Globulin [Mass ratio] 1.6 {ratio} Normal [facility] Comment on above: Performed By: #### C BC, HCGQNT, LIPASE, PT, HS TROP, PTT, HEPATIC, BMP ####[place] [id number] [address] ALP [Catalytic activity/Vol] 47 U/L Normal 34-104 [facility] Comment on above: Performed By: #### C BC, HCGQNT, LIPASE, PT, HS TROP, PTT, HEPATIC, BMP ####[address] ALT [Catalytic activity/Vol] 11 U/L Normal 7-52 [facility] Comment on above: Performed By: #### C BC, HCGQNT, LIPASE, PT, HS TROP, PTT, HEPATIC, BMP ####[address] AST [Catalytic activity/Vol] 12 U/L Low 13-39 [facility] Comment on above: Performed By: #### C BC, HCGQNT, LIPASE, PT, HS TROP, PTT, HEPATIC, BMP ####[address] Bilirubin [Mass/Vol] 0.5 mg/dL Normal 0.3-1.0 [facility] Comment on above: Performed By: #### C BC, HCGQNT, LIPASE, PT, HS TROP, PTT, HEPATIC, BMP ####[address] Bilirubin,Indirect 0.4 mg/dL Normal [facility] Comment on above: Performed By: #### C BC, HCGQNT, LIPASE, PT, HS TROP, PTT, HEPATIC, BMP ####[address] Bilirubin.indirect [Mass/Vol] 0.10 mg/dL Normal 0.03-0.18 [facility] Comment on above: Performed By: #### C BC, HCGQNT, LIPASE, PT, HS TROP, PTT, HEPATIC, BMP ####[address] Globulin (S) [Mass/Vol] 2.6 g/dL Normal [facility] Comment on above: Performed By: #### C BC, HCGQNT, LIPASE, PT, HS TROP, PTT, HEPATIC, BMP ####[address] Protein [Mass/Vol] 6.7 g/dL Normal 6.4-8.9 [facility] Comment on above: Performed By: #### C BC, HCGQNT, LIPASE, PT, HS TROP, PTT, HEPATIC, BMP ####[address] Hyaline casts [#/area] in Ur ine sediment by Automated countOrdered By: Jose Forman on 12-06-2024 Hyaline casts Auto (Urine sed) [#/Area] Hyaline casts [#/area] in Urine sediment by Automated count 0-8 [facility] INR in Platelet poor plasma by Coagulation assayOrdered By: Jose Forman on 12-06-2024 INR Coag (PPP) [Relative time] INR in Platelet poor plasma by Coagulation assay [facility] Comment on above: INR Therapeutic Rang e [...] n Urine by Test strip High Negative [facility] Leukocyte esterase [Presence ] in Urine by Test stripOrdered By: Jose Forman on 12-06-2024 Leukocyte esterase Test strip Ql (U) Leukocyte esterase [Presence] in Urine by Test strip Negative [facility] Leukocytes [#/area] in Urine sediment by Automated countOrdered By: Jose Forman on 12-06-2024 WBC Auto (Urine sed) [#/Area] Leukocytes [#/area] in Urine sediment by Automated count 0-4 [facility] Leukocytes [#/volume] correc randolph for nucleated erythrocytes in Blood by Automated counOrdered By: Jose Forman on 12-06-2024 WBC corrected for nucl RBC Auto (Bld) [#/Vol] Leukocytes [#/volume] corrected for nucleated erythrocytes in Blood by Automated coun 3.8-11.6 [facility] Lipaseon 12-06-2024 Lipase [Catalytic activity/Vol] 11.0 U/L Normal 11.0-82.0 [facility] Comment on above: Performed By: #### C BC, HCGQNT, LIPASE, PT, HS TROP, PTT, HEPATIC, BMP ####[facility] [id number] [place] [address] [facility] Lipase [Enzymatic activity/v olume] in Serum or PlasmaOrdered By: Jose Forman on 12-06-2024 Lipase [Catalytic activity/Vol] Lipase [Enzymatic activity/volume] in Serum or Plasma 11.0-82.0 [facility] Lymphocytes Auto (Bld) [#/Vo l]Ordered By: Jose Forman on 12-06-2024 Lymphocytes (Bld) [#/Vol] Lymphocytes [#/volume] in Blood by Automated count 1.00-4.8 [facility] Lymphocytes/100 WBC Auto (Bl d)Ordered By: Jose Forman on 12-06-2024 Lymphocytes/100 WBC (Bld) Lymphocytes/100 leukocytes in Blood by Automated count . [facility] MCH Auto (RBC) [Entitic mass ]Ordered By: Jose Forman on 12-06-2024 MCH (RBC) [Entitic mass] MCH [Entitic mass] by Automated count 24.7-34.3 [facility] MCHC Auto (RBC) [Mass/Vol]Or dered By: Jose Forman on 12-06-2024 MCHC (RBC) [Mass/Vol] MCHC [Mass/volume] by Automated count 32.0-35.0 [facility] MCV Auto (RBC) [Entitic vol] Ordered By: Jose Forman on 12-06-2024 MCV (RBC) [Entitic vol] MCV [Entitic volume] by Automated count Low 80-100 [facility] Monocyte distribution width [Entitic volume] in Blood by AutomatedOrdered By: Jose Forman on 12-06-2024 Monocyte distribution width Auto (Bld) [Entitic vol] Monocyte distribution width [Entitic volume] in Blood by Automated 0.00-20.00 [facility] Monocytes Auto (Bld) [#/Vol] Ordered By: Jose Forman on 12-06-2024 Monocytes (Bld) [#/Vol] Automated blood monocyte count 0.0-0.8 [facility] Monocytes/100 WBC Auto (Bld) Ordered By: Jose Forman on 12-06-2024 Monocytes/100 WBC (Bld) Automated monocyte % . [facility] Mucus [Presence] in Urine by AutomatedOrdered By: Jose Forman on 12-06-2024 Mucus Auto Ql (U) Mucus [Presence] in Urine by Automated [facility] Neutrophils Auto (Bld) [#/Vo l]Ordered By: Jose Forman on 12-06-2024 Neutrophils (Bld) [#/Vol] Neutrophils [#/volume] in Blood by Automated count 1.8-7.7 [facility] Neutrophils/100 WBC Auto (Bl d)Ordered By: Jose Forman on 12-06-2024 Neutrophils/100 WBC (Bld) Automated neutrophil % . [facility] Nitrite Test strip Ql (U)Ord ered By: Jose Forman on 12-06-2024 Nitrite Ql (U) Nitrite [Presence] i n Urine by Test strip Negative [facility] No Panel InformationOrdered By: Jose Forman on 12-06-2024 Estimated GFR (CKD-EPI) > 60.0 mL/Min [facility]acy Creatinine Clearance (Chem 129.71 [facility] Nucleated erythrocytes [Pres ence] in Blood by Automated countOrdered By: Jose Forman on 12-06-2024 Nucleated RBC Auto Ql (Bld) Nucleated erythrocytes [Presence] in Blood by Automated count 0-0.5 [facility] Partial Thromboplastin Timeo n 12-06-2024 aPTT Coag (Bld) [Time] 28.1 s Normal 25.1-36.5 [facility] Comment on above: Result Comment: A he matocrit value greater than 55% may lead to inaccurate results in coagulation testing. Patients having hematocrit values >55% require a special collection tube for coagulation studies. Please contact the laboratory at [phone] for redraw instructions. PERFORMED BY: [facility] [address] [place] [address] PATHOLOGIST COMMUNITY OUTREACH COORDINATOR LEÓN GARCIA M.D. Performed By: #### C BC, HCGQNT, LIPASE, PT, HS TROP, PTT, HEPATIC, BMP ####[facility] [address] [place] [address] [facility] Platelet mean volume Auto (B ld) [Entitic vol]Ordered By: Jose Forman on 12-06-2024 Platelet mean volume (Bld) [Entitic vol] Platelet mean volume [Entitic volume] in Blood by Automated count 6.3-10.7 [facility] Platelets Auto (Bld) [#/Vol] Ordered By: Jose Forman on 12-06-2024 Platelets (Bld) [#/Vol] Platelets [#/volume] in Blood by Automated count 150-450 [facility] Potassium [Moles/volume] in Serum or PlasmaOrdered By: Jose Forman on 12-06-2024 Potassium [Moles/Vol] Potassium [Moles/v olume] in Serum or Plasma 3.5-5.1 [facility] Protein Test strip (U) [Mass /Vol]Ordered By: Jose Forman on 12-06-2024 Protein (U) [Mass/Vol] Protein [Mass/vol ume] in Urine by Test strip High Negative [facility] Protein [Mass/volume] in Ser um or PlasmaOrdered By: Jose Forman on 12-06-2024 Protein [Mass/Vol] Protein [Mass/volume ] in Serum or Plasma 6.4-8.9 [facility] Prothrombin Time INRon 12-06 INR Coag (PPP) [Relative time] 1.1 {INR} Normal [facility] Comment on above: Result [...] LIPASE, PT, HS TROP, PTT, HEPATIC, BMP ####[facility] [id number] [place] [id number] [facility] PT Coag (PPP) [Time] 12.3 s Normal 9.0-12.9 [facility] Comment on above: Result Comment: A he matocrit value greater than 55% may lead to inaccurate results in coagulation testing. Patients having hematocrit values >55% require a special collection tube for coagulation studies. Please contact the laboratory at [phone] for redraw instructions. Performed By: #### C BC, HCGQNT, LIPASE, PT, HS TROP, PTT, HEPATIC, BMP ####[facility] [id number] [place] [id number] [facility] Prothrombin time (PT)Ordered By: Jose Forman on 12-06-2024 PT Coag (PPP) [Time] Prothrombin time (PT) 9.0- 12.9 [facility] Comment on above: A hematocrit value g reater than 55% may lead to inaccurate results in coagulation testing. Patients having hematocrit values >55% require a special collection tube for coagulation studies. Please contact the laboratory at [phone] for redraw instructions. RBC Auto (Bld) [#/Vol]Ordere d By: Jose Forman on 12-06-2024 RBC (Bld) [#/Vol] Erythrocytes [#/volu me] in Blood by Automated count 3.60-5.00 [facility] Serum or plasma albumin/glob ulin mass ratioOrdered By: Jose Forman on 12-06-2024 Albumin/Globulin [Mass ratio] Serum or plasma albumin/globulin mass ratio [facility] Serum or plasma anion gap de terminationOrdered By: Jose Forman on 12-06-2024 Anion gap [Moles/Vol] Serum or plasma an ion gap determination 6.0-15.0 [facility] Serum or plasma non-glucuron idated bilirubin measurement (mass/volume)Ordered By: Jose Forman on 12-06-2024 Bilirubin.indirect [Mass/Vol] Serum or plasma non-glucuronidated bilirubin measurement (mass/volume) [facility] Sodium [Moles/volume] in Ser um or PlasmaOrdered By: Jose Forman on 12-06-2024 Sodium [Moles/Vol] Sodium [Moles/volume ] in Serum or Plasma Low 136-145 [facility] Specific gravity Test strip (U) [Rel density]Ordered By: Jose Forman on 12-06-2024 Specific gravity (U) [Rel density] Specific gravity of Urine by Test strip 1.001-1.03 0 [facility] Troponin I High Sensitivityo n 12-06-2024 Troponin I High Sensitivity 3 Normal 0-15 [facility] Comment on above: Result Comment: The Troponin units of report have been changed to meet the Chest Pain Accreditation requirement, element EC5.M1l2. Troponin units are changed from pg/ml to ng/L. Also, the decimal is removed and results are in whole numbers. PERFORMED BY: [place] [id number] PATHOLOGIST COMMUNITY OUTREACH COORDINATOR LEÓN GARCIA M.D. Performed By: #### C BC, HCGQNT, LIPASE, PT, HS TROP, PTT, HEPATIC, BMP ####[facility] [address] Troponin I.cardiac [Mass/vol ume] in Serum or Plasma by Detection limit <= 0.01 ng/Ordered By: Jose Forman on 12-06-2024 Troponin I.cardiac DL <= 0.01 ng/mL [Mass/Vol] Troponin I.cardiac [Mass/volume] in Serum or Plasma by Detection limit <= 0.01 ng/ 0-15 [facility] Comment on above: The Troponin units o f report have been changed to meet the Chest Pain Accreditation requirement, element EC5.M1l2. Troponin units are changed from pg/ml to ng/L. Also, the decimal is removed and results are in whole numbers. US OB <= 14 weeks fetuson US OB <= 14 weeks fetus [facility] [place] [address] Ultrasound Report Signed Patient: Noris Goetz MR#: [id number] 61 : 1990 Acct:[id number] Age/Sex: 34 / F ADM Date: 12/06/24 Loc: ER Room: Type: [facility] ER Attending Dr: Ordering Provider: Jose Forman DO Date of Service: 12/06/24 US/US OB <= 14 weeks fetus: Abdominal Pain Copies to: Jose Forman DO Obstetrical ultrasound for fetus less than 14 weeks HISTORY: Abdominal pain. Vaginal bleeding COMPARISON: None The heart rate is 126bpm. Ovaries not visualized No free fluid identified in cul-de-sac. No subchorionic hemorrhage identified. [place]-rump length measures 6.4cm consistent with 6 weeks 4 days. The yolk sac is not seen. The estimated due date by this ultrasound is 07/28/2025. US/US OB <= 14 weeks fetus IMPRESSION: Single live anterior gestation 6 weeks 4 days. Impression dictated by: Alfonzo Flores M.D.12/06/2024 9:55 AM Dictation Location: [place] [address] Tech: Antonieta Greenberg Transcribed By: JOSESITO 12/06/24954 Dictated By: Alfonzo Flores DO 12/06/24953 Signed By: 12/06/24954 Normal [facility] Urea nitrogen [Mass/volume] in Serum or PlasmaOrdered By: Jose Forman on 12-06-2024 Urea nitrogen [Mass/Vol] Urea nitrogen [Mass/volume] in Serum or Plasma 05-11 [facility] Urobilinogen Test strip (U) [Mass/Vol]Ordered By: Jose Forman on 12-06-2024 Urobilinogen (U) [Mass/Vol] Urobilinogen [Mass/volume] in Urine by Test strip Normal [facility] WBC Auto (Bld) [#/Vol]Ordere d By: Jose Forman on 12-06-2024 WBC (Bld) [#/Vol] Leukocytes [#/volume ] in Blood by Automated count 3.8-11.6 [facility] aPTT in Platelet poor plasma by Coagulation assayOrdered By: Jose Forman on 12-06-2024 aPTT Coag (PPP) [Time] Activated partial thromboplastin time (aPTT) in platelet poor plasma by coagulation a 25.1-36.5 [facility] Comment on above: A hematocrit value g reater than 55% may lead to inaccurate results in coagulation testing. Patients having hematocrit values >55% require a special collection tube for coagulation studies. Please contact the laboratory at [phone] for redraw instructions. 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 Scanned copy available in EMR. Pathology Request for Lab Co rpon 08-02-2024 Pathology Request for Lab Ministerio Normal [facility] Comment on above: Order Comment: PATHO LOGY SKIN SPECIMEN Result Comment: See report. Scanned copy available in EMR. PERFORMED BY: [place] [address] PATHOLOGIST COMMUNITY OUTREACH COORDINATOR JOAN CROWLEY M.D. Performed By: #### P ATH TO [facility] ####[facility] [address] [place] [id number] [facility] US extremity nonvascularon 0 05-23-2024 US extremity nonvascular [facility] [place] [address] Ultrasound Report Signed Patient: Noris Goetz MR#: [id number] 61 : 1990 Acct:[id number] Age/Sex: 34 / F ADM Date: 05/23/24 Loc: Room: Type: [facility] CLI Attending Dr: Marianela Oliva MD Ordering Provider: [...] Annel Barnhart M.D.05/23/2024 2:18 PM Dictation Location: [place] [address] Tech: Ayleen Siddiqikelly Transcribed By: JOSESITO 05/23/24 1418 Dictated By: Annel Barnhart MD 05/23/24 1414 Signed By: 05/23/24 1418 Normal [facility] Automated basophil %Ordered By: Mario Perez on 05-17-2024 Basophils/100 WBC (Bld) 0.8 % Normal . [facility] Comment on above: Order Comment: FASTI NG. JKW Performed By: #### P ARLEEN TSH, PILLAR CBC, PILLAR BMP, PILLAR LIPID #### [address] Automated basophil countOrde red By: Mario Perez on 05-17-2024 Basophils (Bld) [#/Vol] 0.0 10*3/uL Normal 0.0-0.2 [facility] Comment on above: Order Comment: FASTI NG. JKW Result Comment: PERF ORMED BY: [place] [address] PATHOLOGIST COMMUNITY OUTREACH COORDINATOR JOAN CROWLEY M.D. Performed By: #### P ILLAR TSH, PILLAR CBC, PILLAR BMP, PILLAR LIPID #### [address] Automated blood monocyte cou ntOrdered By: Mariopatrick Perez on 05-17-2024 Monocytes (Bld) [#/Vol] 0.6 10*3/uL Normal 0.0-0.8 [facility] Comment on above: Order Comment: FASTI NG. JKW Performed By: #### P ILLAR TSH, PILLAR CBC, PILLAR BMP, PILLAR LIPID #### [address] Automated eosinophil %Ordere d By: Mario Perez on 05-17-2024 Eosinophils/100 WBC (Bld) 5.3 % Normal . [facility] Comment on above: Order Comment: FASTI NG. JKW Performed By: #### P ILLAR TSH, PILLAR CBC, PILLAR BMP, PILLAR LIPID #### [address] Automated eosinophil countOr dered By: Mario Perez on 05-17-2024 Eosinophils (Bld) [#/Vol] 0.3 10*3/uL Normal 0.0-0.45 [facility] Comment on above: Order Comment: FASTI NG. JKW Performed By: #### P ILLAR TSH, PILLAR CBC, PILLAR BMP, PILLAR LIPID #### [address] Automated monocyte %Ordered By: Mario Perez on 05-17-2024 Monocytes/100 WBC (Bld) 10.8 % Normal . [facility] Comment on above: Order Comment: FASTI NG. JKW Performed By: #### P ILLAR TSH, PILLAR CBC, PILLAR BMP, PILLAR LIPID #### [address] Automated neutrophil %Ordere d By: Mario Perez on 05-17-2024 Neutrophils/100 WBC (Bld) 55.1 % Normal . [facility] Comment on above: Order Comment: FASTI NG. JKW Performed By: #### P ILLAR TSH, PILLAR CBC, PILLAR BMP, PILLAR LIPID #### [facility] [address] [place] [id number] [place] Calcium [Mass/volume] in Ser um or PlasmaOrdered By: Mario Perez on 05-17-2024 Calcium [Mass/Vol] 8.5 mg/dL Low 8.6-10.3 [facility] Comment on above: Order Comment: FASTJoni COBIAN. JKW Performed By: #### P ILLAR TSH, PILLAR CBC, PILLAR BMP, PILLAR LIPID #### [facility] [address] [place] [id number] [place] Carbon dioxide, total [Moles /volume] in Serum or PlasmaOrdered By: Mario Perez on 05-17-2024 CO2 [Moles/Vol] 27.7 mmol/L Normal 21.0-31.0 [facility] Comment on above: Order Comment: FASTJoni COBIAN. JKW Performed By: #### P ILLAR TSH, PILLAR CBC, PILLAR BMP, PILLAR LIPID #### [facility] [address] [place], [place] [id number] [place] Chloride [Moles/volume] in S eamon or PlasmaOrdered By: Mario Perez on 05-17-2024 Chloride [Moles/Vol] 109 mmol/L High 98-107 [facility] Comment on above: Order Comment: RONNIE COBIAN. JKW Performed By: #### P ILLAR TSH, PILLAR CBC, PILLAR BMP, PILLAR LIPID #### [facility] [address] [place] [phone] [place] Cholesterol [Mass/volume] in Serum or PlasmaOrdered By: Mario Perez on 05-17-2024 Cholesterol [Mass/Vol] 170 mg/dL Normal 140-200 [facility] Comment on above: Chol less than 200 m g/dl low riskChol 201-239 mg/dl borderline riskChol 240 mg/dl and greater high risk Order Comment: RONNIE MAURO JKW Result Comment: Chol less than 200 mg/dl low risk Chol 201-239 mg/dl borderline risk Chol 240 mg/dl and greater high risk Performed By: #### P ILLAR TSH, PILLAR CBC, PILLAR BMP, PILLAR LIPID #### [facility] [address] Cholesterol in LDL Calc [Mas s/Vol]Ordered By: Mario Perez on 05-17-2024 Cholesterol in LDL [Mass/Vol] 109 mg/dL High 0-100 [facility] Comment on above: LDL ATP III CLASSIFI CATIONLDL less than 100 mg/dL OptimalLDL 100-129 mg/dL Near or above optimalLDL 130-159 mg/dL Borderline highLDL 160-189 mg/dL HighLDL greater than 189 mg/dL Very high Cholesterol in VLDL Calc [Ma ss/Vol]Ordered By: Mario Perez on 05-17-2024 Cholesterol in VLDL [Mass/Vol] 10 mg/dL [facility] Creatinine [Mass/volume] in Serum or PlasmaOrdered By: Mario Perez on 05-17-2024 Creatinine [Mass/Vol] 0.73 mg/dL Normal 0.60-1.20 [facility] Comment on above: Order Comment: FASTI NG. JKW Performed By: #### P ILLAR TSH, PILLAR CBC, PILLAR BMP, PILLAR LIPID #### [facility] [address] Employee Basic Metabolic Nails anushka 05-17-2024 GFR/1.73 sq M.predicted MDRD (S/P/Bld) [Vol rate/Area] mL/min/{1.73_m2} Normal [facility] Comment on above: Order Comment: FASTI NG. JKW Performed By: #### P ILLAR TSH, PILLAR CBC, PILLAR BMP, PILLAR LIPID #### [facility] [address] Employee Complete Blood Coun ton 05-17-2024 Mean Corpuscular HGB Conc 34.2 g/dL Normal 32.0-35.0 [facility] Comment on above: Order Comment: FASTI NG. JKW Performed By: #### P ILLAR TSH, PILLAR CBC, PILLAR BMP, PILLAR LIPID #### [facility] [address] NRBC% 0.1 /100{WBC} Normal 0-0.5 [facility] Comment on above: Order Comment: RONNIE HollandKW Performed By: #### P ILLAR TSH, PILLAR CBC, PILLAR BMP, PILLAR LIPID #### [address] Employee Lipid Profileon LDL Cholesterol,Calculated 109 mg/dL High 0-100 [facility] Comment on above: Order Comment: RONNIE HollandKW Result Comment: LDL ATP III CLASSIFICATION LDL less than 100 mg/dL Optimal LDL 100-129 mg/dL Near or above optimal LDL 130-159 mg/dL Borderline high LDL 160-189 mg/dL High LDL greater than 189 mg/dL Very high Performed By: #### P ILLAR TSH, PILLAR CBC, PILLAR BMP, PILLAR LIPID #### [address] Triglyceride w/Reflex 52 mg/dL Normal 0-149 [facility] Comment on above: Order Comment: RONNIE HollandKW Result Comment: TRIG ATP III CLASSIFICATION TRIG less than 150 mg/dL Normal TRIG 150-199 mg/dL Borderline high TRIG 200-500 mg/dL High TRIG greater than 500 mg/dL Very high Standard traceable to the Center for Disease Conrtrol and Prevention (CDC) test method. Performed By: #### P ILLAR TSH, PILLAR CBC, PILLAR BMP, PILLAR LIPID #### [address] VLDL CHOLESTEROL 10 mg/dL Normal [facility] Comment on above: Order Comment: RONNIE HollandKW Performed By: #### P ILLAR TSH, PILLAR CBC, PILLAR BMP, PILLAR LIPID #### [address] Employee Thyroid Stim Hormon paulo 05-17-2024 Employee Thyroid Stim Hormone 1.90 u[iU]/mL Normal 0.45-5.33 [facility] Comment on above: Order Comment: RONNIE HollandKW Result Comment: PERF ORMED BY: [place] [address] PATHOLOGIST COMMUNITY OUTREACH COORDINATOR JOAN CROWLEY M.D. Performed By: #### P ILLAR TSH, PILLAR CBC, PILLAR BMP, PILLAR LIPID #### [facility] [address] [place] [address] [place] Erythrocyte distribution wid th [Ratio] by Automated countOrdered By: Mario Perez on 05-17-2024 Erythrocyte distribution width (RBC) [Ratio] 13.7 % Normal 11.9-15.3 [facility] Comment on above: Order Comment: FASTI NG. JKW Performed By: #### P ILLAR TSH, PILLAR CBC, PILLAR BMP, PILLAR LIPID #### [place] [address] [place] Erythrocytes [#/volume] in B lood by Automated countOrdered By: Mario Perez on 05-17-2024 RBC (Bld) [#/Vol] 4.62 10*6/uL Normal 3.60-5.00 [facility] Comment on above: Order Comment: FASTI NG. JKW Performed By: #### P ILLAR TSH, PILLAR CBC, PILLAR BMP, PILLAR LIPID #### [place] [address] [place] Glucose [Mass/volume] in Ser um or PlasmaOrdered By: Mario Perez on 05-17-2024 Glucose [Mass/Vol] 95 mg/dL Normal 70-100 [facility] Comment on above: Order Comment: FASTI NG. JKW Performed By: #### P ILLAR TSH, PILLAR CBC, PILLAR BMP, PILLAR LIPID #### [address] Hematocrit [Volume Fraction] of Blood by Automated countOrdered By: Mario Perez on 05-17-2024 Hematocrit (Bld) [Volume fraction] 36.7 % Normal 34.0-46.4 [facility] Comment on above: Order Comment: FASTI NG. JKW Performed By: #### P ILLAR TSH, PILLAR CBC, PILLAR BMP, PILLAR LIPID #### [facility] [address] [place] [address] [place] Hemoglobin [Mass/volume] in BloodOrdered By: Mario Perez on 05-17-2024 Hemoglobin (Bld) [Mass/Vol] 12.6 g/dL Normal 11.8-15.4 [facility] Comment on above: Order Comment: FASTI ARANZA. JKW Performed By: #### P ILLAR TSH, PILLAR CBC, PILLAR BMP, PILLAR LIPID #### [facility] [address] Leukocytes [#/volume] correc randolph for nucleated erythrocytes in Blood by Automated counOrdered By: Mario Perez on 05-17-2024 WBC corrected for nucl RBC Auto (Bld) [#/Vol] 5.1 10*3/uL 3.8-11.6 [facility] Leukocytes [#/volume] in Blo od by Automated countOrdered By: Mario Perez on 05-17-2024 WBC (Bld) [#/Vol] 5.1 10*3/uL Normal 3.8-11.6 [facility] Comment on above: Order Comment: FASTI ARANZA. JKW Performed By: #### P ILLAR TSH, PILLAR CBC, PILLAR BMP, PILLAR LIPID #### [facility] [address] [place] [address] [place] Lymphocytes [#/volume] in Bl ood by Automated countOrdered By: Mario Perez on 05-17-2024 Lymphocytes (Bld) [#/Vol] 1.4 10*3/uL Normal 1.00-4.8 [facility] Comment on above: Order Comment: FASTI ARANZA. JKW Performed By: #### P ILLAR TSH, PILLAR CBC, PILLAR BMP, PILLAR LIPID #### [facility] [address] [place] [address] [place] Lymphocytes/100 leukocytes i n Blood by Automated countOrdered By: Mario Perez on 05-17-2024 Lymphocytes/100 WBC (Bld) 28.0 % Normal . [facility] Comment on above: Order Comment: FASTI ARANZA. JKW Performed By: #### P ILLAR TSH, PILLAR CBC, PILLAR BMP, PILLAR LIPID #### [facility] [address] MCH [Entitic mass] by Automa randolph countOrdered By: Mario Perez on 05-17-2024 MCH (RBC) [Entitic mass] 27.2 pg Normal 24.7-34.3 [facility] Comment on above: Order Comment: RONNIE HollandKW Performed By: #### P ILLAR TSH, PILLAR CBC, PILLAR BMP, PILLAR LIPID #### [facility] [address] MCHC Auto (RBC) [Mass/Vol]Or dered By: Mario Perez on 05-17-2024 MCHC (RBC) [Mass/Vol] 34.2 g/dL 32.0-35.0 [facility] MCV [Entitic volume] by Auto mated countOrdered By: Mario Perez on 05-17-2024 MCV (RBC) [Entitic vol] 79.4 fL Low 80-100 [facility] Comment on above: Order Comment: RONNIE HollandKW Performed By: #### P ILLAR TSH, PILLAR CBC, PILLAR BMP, PILLAR LIPID #### [facility] [address] [place] [address] Neutrophils [#/volume] in Bl ood by Automated countOrdered By: Mario Perez on 05-17-2024 Neutrophils (Bld) [#/Vol] 2.8 10*3/uL Normal 1.8-7.7 [facility] Comment on above: Order Comment: RONNIE HollandKW Performed By: #### P ILLAR TSH, PILLAR CBC, PILLAR BMP, PILLAR LIPID #### [facility] [address] [place] [address] No Panel InformationOrdered By: Mario Perez on 05-17-2024 Estimated GFR (CKD-EPI) > 60.0 mL/Min [facility] Creatinine Clearance (Chem N/A [facility] Nucleated erythrocytes [Pres ence] in Blood by Automated countOrdered By: Mario Perez on 05-17-2024 Nucleated RBC Auto Ql (Bld) 0.1 /100{WBC} 0-0.5 [facility] Platelet mean volume [Entiti c volume] in Blood by Automated countOrdered By: Mario Perez on 05-17-2024 Platelet mean volume (Bld) [Entitic vol] 8.9 fL Normal 6.3-10.7 [facility] Comment on above: Order Comment: FASTI NG. JKW Performed By: #### P ILLAR TSH, PILLAR CBC, PILLAR BMP, PILLAR LIPID #### [facility] [address] Platelets [#/volume] in Bloo d by Automated countOrdered By: Mario Perez on 05-17-2024 Platelets (Bld) [#/Vol] 192 10*3/uL Normal 150-450 [facility] Comment on above: Order Comment: FASTI NG. JKW Performed By: #### P ILLAR TSH, PILLAR CBC, PILLAR BMP, PILLAR LIPID #### [facility] [address] [place] [address] Potassium [Moles/volume] in Serum or PlasmaOrdered By: Mario Perez on 05-17-2024 Potassium [Moles/Vol] 3.9 mmol/L Normal 3.5-5.1 [facility] Comment on above: Order Comment: FASTI NG. JKW Performed By: #### P ILLAR TSH, PILLAR CBC, PILLAR BMP, PILLAR LIPID #### [address] Serum or plasma anion gap de terminationOrdered By: Mario Perez on 05-17-2024 Anion gap [Moles/Vol] 7.2 mmol/L Normal 6.0-15.0 [facility] Comment on above: Order Comment: FASTI NG. JKW Performed By: #### P ILLAR TSH, PILLAR CBC, PILLAR BMP, PILLAR LIPID #### [address] Serum or plasma high density lipoprotein (HDL) cholesterol measurementOrdered By: Mario Perez on 05-17-2024 Cholesterol in HDL [Mass/Vol] 51 mg/dL Normal 23-92 [facility] Comment on above: HDL CHOL ATP-III CLA SSIFICATION Cardiovascular RiskHDL > or equal to 60 mg/dL LOWHDL < 40 mg/dL HIGH Order Comment: RONNIE GRIMALDO Result Comment: HDL CHOL ATP-III CLASSIFICATION Cardiovascular Risk HDL > or equal to 60 mg/dL LOW HDL < 40 mg/dL HIGH Performed By: #### P ILLAR TSH, PILLAR CBC, PILLAR BMP, PILLAR LIPID #### [facility] [address] Serum or plasma total choles terol/high density lipoprotein (HDL) cholesterol mass ratOrdered By: Mario Perez on 05-17-2024 Cholesterol.total/Chol esterol in HDL [Mass ratio] 3.3 {ratio} Normal <5.0 [facility] Comment on above: Order Comment: RONNIE GRIMALDO Performed By: #### P ILLAR TSH, PILLAR CBC, PILLAR BMP, PILLAR LIPID #### [facility] [address] Sodium [Moles/volume] in Ser um or PlasmaOrdered By: Mario Perez on 05-17-2024 Sodium [Moles/Vol] 140 mmol/L Normal 136-145 [facility] Comment on above: Order Comment: RONNIE PEPEW Performed By: #### P ILLAR TSH, PILLAR CBC, PILLAR BMP, PILLAR LIPID #### [facility] [address] Thyrotropin [Units/volume] i n Serum or PlasmaOrdered By: Mario Perez on 05-17-2024 TSH Qn 1.90 m[IU]/L 0.45-5.33 [facility] Triglyceride [Mass/volume] i n Serum or PlasmaOrdered By: Mario Perez on 05-17-2024 Triglyceride [Mass/Vol] 52 mg/dL 0-149 [facility] Comment on above: TRIG ATP III CLASSIF ICATIONTRIG less than 150 mg/dL NormalTRIG 150-199 mg/dL Borderline highTRIG 200-500 mg/dL High TRIG greater than 500 mg/dL Very highStandard traceable to the Center for Disease Conrtrol and Prevention (CDC) test method. Urea nitrogen [Mass/volume] in Serum or PlasmaOrdered By: Mario Perez on 05-17-2024 Urea nitrogen [Mass/Vol] 15 mg/dL Normal 05-11 [facility] Comment on above: Order Comment: RONNIE PEPEW Performed By: #### P ILLAR TSH, PILLAR CBC, PILLAR BMP, PILLAR LIPID #### [facility] [address] Alanine aminotransferase [En zymatic activity/volume] in Serum or PlasmaOrdered By: Mario Perez on 07-12-2023 ALT [Catalytic activity/Vol] 14 U/L 7-52 [facility] Albumin [Mass/volume] in Ser um or Plasma by Bromocresol green (BCG) dye binding methoOrdered By: Mario Perez on 07-12-2023 Albumin BCG dye [Mass/Vol] 4.2 g/dL 3.5-5.7 [facility] Alkaline phosphatase [Enzyma tic activity/volume] in Serum or PlasmaOrdered By: Mario Perez on 07-12-2023 ALP [Catalytic activity/Vol] 45 U/L 34-104 [facility] Aspartate aminotransferase [ Enzymatic activity/volume] in Serum or PlasmaOrdered By: Mario Perez on 07-12-2023 AST [Catalytic activity/Vol] 15 U/L 13-39 [facility] Bilirubin.total [Mass/volume ] in Serum or PlasmaOrdered By: Mario Perez on 07-12-2023 Bilirubin [Mass/Vol] 0.4 mg/dL 0.3-1.0 [facility] Calcium [Mass/volume] in Ser um or PlasmaOrdered By: Mario Perez on 07-12-2023 Calcium [Mass/Vol] 8.9 mg/dL 8.6-10.3 [facility] Carbon dioxide, total [Moles /volume] in Serum or PlasmaOrdered By: Mario Perez on 07-12-2023 CO2 [Moles/Vol] 28.7 mmol/L 21.0-31.0 [facility] Chloride [Moles/volume] in S eamon or PlasmaOrdered By: Mario Perez on 07-12-2023 Chloride [Moles/Vol] 106 mmol/L 98-107 [facility] Cholesterol [Mass/volume] in Serum or PlasmaOrdered By: Mario Perez on 07-12-2023 Cholesterol [Mass/Vol] 194 mg/dL 140-200 [facility] Comment on above: Chol less than 200 m g/dl low riskChol 201-239 mg/dl borderline riskChol 240 mg/dl and greater high risk Cholesterol in LDL Calc [Mas s/Vol]Ordered By: Mario Perez on 07-12-2023 Cholesterol in LDL [Mass/Vol] 119 mg/dL 0-100 [facility] Comment on above: LDL ATP III CLASSIFI CATIONLDL less than 100 mg/dL OptimalLDL 100-129 mg/dL Near or above optimalLDL 130-159 mg/dL Borderline highLDL 160-189 mg/dL HighLDL greater than 189 mg/dL Very high Cholesterol in VLDL Calc [Ma ss/Vol]Ordered By: Mario Perez on 07-12-2023 Cholesterol in VLDL [Mass/Vol] 12 mg/dL [facility] Creatinine [Mass/volume] in Serum or PlasmaOrdered By: Mario Perez on 07-12-2023 Creatinine [Mass/Vol] 0.78 mg/dL 0.60-1.20 [facility] Globulin Calc (S) [Mass/Vol] Ordered By: Mario Perez on 07-12-2023 Globulin (S) [Mass/Vol] 2.2 g/dL [facility] Glucose [Mass/volume] in Ser um or PlasmaOrdered By: Mario Perez on 07-12-2023 Glucose [Mass/Vol] 99 mg/dL 70-100 [facility] No Panel InformationOrdered By: Mario Perez on 07-12-2023 Estimated GFR (CKD-EPI) > 60.0 mL/Min [facility] Pharmacy Creatinine Clearance (Chem N/A [facility] Potassium [Moles/volume] in Serum or PlasmaOrdered By: Mario Perez on 07-12-2023 Potassium [Moles/Vol] 4.3 mmol/L 3.5-5.1 [facility] Protein [Mass/volume] in Ser um or PlasmaOrdered By: Mario Perez on 09-25-2023 Protein [Mass/Vol] 6.4 g/dL 6.4-8.9 [facility] Serum or plasma albumin/glob ulin mass ratioOrdered By: Mario Perez on 07-12-2023 Albumin/Globulin [Mass ratio] 1.9 {ratio} [facility] Serum or plasma anion gap de terminationOrdered By: Mario Perez on 07-12-2023 Anion gap [Moles/Vol] 8.6 mmol/L 6.0-15.0 [facility] Serum or plasma high density lipoprotein (HDL) cholesterol measurementOrdered By: Mario Perez on 07-12-2023 Cholesterol in HDL [Mass/Vol] 63 mg/dL 23- [facility] Comment on above: HDL CHOL ATP-III CLA SSIFICATION Cardiovascular RiskHDL > or equal to 60 mg/dL LOWHDL < 40 mg/dL HIGH Serum or plasma total choles terol/high density lipoprotein (HDL) cholesterol mass ratOrdered By: Mario Perez on 07-12-2023 Cholesterol.total/Chol esterol in HDL [Mass ratio] 3.1 {ratio} <5.0 [facility] Sodium [Moles/volume] in Ser um or PlasmaOrdered By: Mario Perez on 07-12-2023 Sodium [Moles/Vol] 139 mmol/L 136-145 [facility] Triglyceride [Mass/volume] i n Serum or PlasmaOrdered By: Mario Perez on 07-12-2023 Triglyceride [Mass/Vol] 61 mg/dL 0-149 [facility] Comment on above: TRIG ATP III CLASSIF ICATIONTRIG less than 150 mg/dL NormalTRIG 150-199 mg/dL Borderline highTRIG 200-500 mg/dL High TRIG greater than 500 mg/dL Very highStandard traceable to the Center for Disease Conrtrol and Prevention (CDC) test method. Urea nitrogen [Mass/volume] in Serum or PlasmaOrdered By: Mario Perez on 07-12-2023 Urea nitrogen [Mass/Vol] 13 mg/dL 05-11 [facility] Human papilloma virus 16+18+ 31+33+35+39+45+51+52+56+58+59+66+68 DNA [Presence] in CerOrdered By: MARISSA GARCIA on 12-15-2022 HPV 16+18+31+33+35+39+45+5 1+52+56+58+59+66+68 DNA Probe+sig amp Ql (Cvx) Negative Negative [facility] Comment on above: This nucleic acid am plification test detects fourteen high- risk HPV types (16,18,31,33,35,39,45,51,52,56,58,59,66,68)without differentiation.Performed at: - [facility] [id number] Director: Azalea Quezada MD, Phone: [phone] at: =G - [facility] [address] [id number] Director: Azalea Quezada MD, Phone: [phone] No Panel InformationOrdered By: MARISSA GARCIA on 12-15-2022 IG Pap w/Ct-Ng & HPV Rflx (Off-Site Note . [facility] Comment on above: TESTS RESULT FLAG UN ITS REF RANGE LAB Clinician Provided Cytology Information No. of containers..01 ThinPrep VialDIAGNOSIS: 01 NEGATIVE FOR INTRAEPITHELIAL LESION OR MALIGNANCY.Specimen adequacy: 01 Satisfactory for evaluation. Endocervical and/or squamous metaplastic cells (endocervical component) are present.Performed by: Balbir Garcia, Copy Operator (ASCP). 01Note: Note 01 The Pap smear is [...] <-Panic Low,>-Panic High,A-Abnormal,AA-Critical Abnormal -----Performed at:[address] [facility] [address] [place] [address] Azalea Quezada MD, Albumin [Mass/volume] in Ser um or PlasmaOrdered By: Marianela Oliva on 06-26-2022 Albumin [Mass/Vol] 3.8 g/dL 3.2-5.5 [facility] Basophils Auto (Bld) [#/Vol] Ordered By: Marianela Oliva on 06-26-2022 Basophils (Bld) [#/Vol] 0.0 10*3/uL 0.0-0.2 [facility] Basophils/100 WBC Auto (Bld) Ordered By: Marianela Oliva on 06-26-2022 Basophils/100 WBC (Bld) 0.7 % . [facility] Cholesterol [Mass/volume] in Serum or PlasmaOrdered By: Marianela Oliva on 06-26-2022 Cholesterol [Mass/Vol] 177 mg/dL 140-200 [facility] Comment on above: Chol less than 200 m g/dl low riskChol 201-239 mg/dl borderline riskChol 240 mg/dl and greater high risk Cholesterol in LDL Calc [Mas s/Vol]Ordered By: Marianela Oliva on 06-26-2022 Cholesterol in LDL [Mass/Vol] 118 mg/dL 0-100 [facility] Comment on above: LDL ATP III CLASSIFI CATIONLDL less than 100 mg/dL OptimalLDL 100-129 mg/dL Near or above optimalLDL 130-159 mg/dL Borderline highLDL 160-189 mg/dL HighLDL greater than 189 mg/dL Very high Cholesterol in VLDL Calc [Ma ss/Vol]Ordered By: Marianela Oliva on 06-26-2022 Cholesterol in VLDL [Mass/Vol] 10 mg/dL [facility] Creatinine and Glomerular fi ltration rate.predicted panel (S/P/Bld)Ordered By: Marianela Oliva on 06-26-2022 Creatinine [Mass/Vol] 0.77 mg/dL 0.44-1.03 [facility] Eosinophils Auto (Bld) [#/Vo l]Ordered By: Marianela Oliva on 06-26-2022 Eosinophils (Bld) [#/Vol] 0.2 10*3/uL 0.0-0.45 [facility] Eosinophils/100 WBC Auto (Bl d)Ordered By: Marianela Oliva on 06-26-2022 Eosinophils/100 WBC (Bld) 4.1 % . [facility] Erythrocyte distribution wid th Auto (RBC) [Ratio]Ordered By: Marianela Oliva on 06-26-2022 Erythrocyte distribution width (RBC) [Ratio] 13.1 % 11.9-15.3 [facility] Estimated glomerular filtrat ion rate (GFR) non- AmericanOrdered By: Marianela Oliva on 06-26-2022 GFR/1.73 sq M.predicted among non-blacks MDRD (S/P/Bld) [Vol rate/Area] > 60 mL/Min [facility] Globulin Calc (S) [Mass/Vol] Ordered By: Marianela Oliva on 06-26-2022 Globulin (S) [Mass/Vol] 2.3 g/dL [facility] Hematocrit Auto (Bld) [Volum e fraction]Ordered By: Marianela Oliva on 06-26-2022 Hematocrit (Bld) [Volume fraction] 38.9 % 34.0-46.4 [facility] Hemoglobin [Mass/volume] in BloodOrdered By: Marianela Oliva on 06-26-2022 Hemoglobin (Bld) [Mass/Vol] 13.1 g/dL 11.8-15.4 [facility] Laboratory - Chemistry and C hemistry - challengeOrdered By: Marianela Oliva on 06-26-2022 Glucose [Mass/Vol] 98 mg/dL 70-100 [facility] Laboratory - Hematology and Cell countsOrdered By: Marianela Oliva on 06-26-2022 Nucleated RBC/100 WBC (Bld) [Ratio] 0.0 % 0-0.5 [facility] Leukocytes [#/volume] in Blo od by Automated countOrdered By: Marianela Oliva on 06-26-2022 WBC (Bld) [#/Vol] 4.3 10*3/uL 4.5-11.0 [facility] Lymphocytes Auto (Bld) [#/Vo l]Ordered By: Marianela Oliva on 06-26-2022 Lymphocytes (Bld) [#/Vol] 1.5 10*3/uL 1.00-4.8 [facility] Lymphocytes/100 WBC Auto (Bl d)Ordered By: Marianela Oliva on 06-26-2022 Lymphocytes/100 WBC (Bld) 35.2 % . [facility] MCH Auto (RBC) [Entitic mass ]Ordered By: Marianela Oliva on 06-26-2022 MCH (RBC) [Entitic mass] 27.3 pg 24.7-34.3 [facility] MCHC Auto (RBC) [Mass/Vol]Or dered By: Marianela Oliva on 06-26-2022 MCHC (RBC) [Mass/Vol] 33.7 g/dL 32.0-35.0 [facility] MCV Auto (RBC) [Entitic vol] Ordered By: Marianela Oliva on 06-26-2022 MCV (RBC) [Entitic vol] 81.1 fL 80-100 [facility] Monocyte %Ordered By: Marianela Oliva on 06-26-2022 Monocyte % 52 mg/dL 35-149 [facility] Comment on above: TRIG ATP III CLASSIF ICATIONTRIG less than 150 mg/dL NormalTRIG 150-199 mg/dL Borderline highTRIG 200-500 mg/dL High TRIG greater than 500 mg/dL Very highStandard traceable to the Center for Disease Conrtrol and Prevention (CDC) test method. Monocytes Auto (Bld) [#/Vol] Ordered By: Marianela Oliva on 06-26-2022 Monocytes (Bld) [#/Vol] 0.5 10*3/uL 0.0-0.8 [facility] Monocytes/100 WBC Auto (Bld) Ordered By: Marianela Oliva on 06-26-2022 Monocytes/100 WBC (Bld) 11.0 % . [facility] Neutrophils Auto (Bld) [#/Vo l]Ordered By: Marianela Oliva on 06-26-2022 Neutrophils (Bld) [#/Vol] 2.1 10*3/uL 1.8-7.7 [facility] Neutrophils/100 WBC Auto (Bl d)Ordered By: Marianela Oliva on 06-26-2022 Neutrophils/100 WBC (Bld) 49.0 % . [facility] No Panel InformationOrdered By: Marianela Oliva on 06-26-2022 Estimated GFR () > 60 mL/Min [facility] Comment on above: GFR estimated refere nce range: According to KDOQI guidelines, <60 ml/min/1.73m2 is sufficient to diagnose a patient with chronic kidney disease. Nicotine Metabolite Negative Cutoff=25 [facility] Comment on above: Performed at: [address] [id number] Director: George García MD, Phone: [phone] Pharmacy Creatinine Clearance (Chem N/A [facility] Platelet mean volume Auto (B ld) [Entitic vol]Ordered By: Marianela Oliva on 06-26-2022 Platelet mean volume (Bld) [Entitic vol] 9.7 fL 6.3-10.7 [facility] Platelets Auto (Bld) [#/Vol] Ordered By: Marianela Oliva on 06-26-2022 Platelets (Bld) [#/Vol] 191 10*3/uL 150-450 [facility] Protein [Mass/volume] in Ser um or PlasmaOrdered By: Marianela Oliva on 06-26-2022 Protein [Mass/Vol] 6.1 g/dL 6.1-7.9 [facility] RBC Auto (Bld) [#/Vol]Ordere d By: Marianela Oliva on 06-26-2022 RBC (Bld) [#/Vol] 4.80 10*6/uL 3.60-5.00 [facility] Serum or plasma alanine carvalho otransferase measurement without P-5'-P (enzymatic activiOrdered By: Marianela Oliva on 06-26-2022 ALT No additional P-5'-P [Catalytic activity/Vol] 17 U/L 10-60 [facility] Serum or plasma albumin/glob ulin mass ratioOrdered By: Marianela Oliva on 06-26-2022 Albumin/Globulin [Mass ratio] 1.7 {ratio} [facility] Serum or plasma alkaline rad sphatase measurement (enzymatic activity/volume)Ordered By: Marianela Oliva on 06-26-2022 ALP [Catalytic activity/Vol] 46 U/L 32-92 [facility] Serum or plasma anion gap de terminationOrdered By: Marianela Oliva on 06-26-2022 Anion gap [Moles/Vol] 8.1 mmol/L 6.0-15.0 [facility] Serum or plasma aspartate am inotransferase measurement (enzymatic activity/volume)Ordered By: Marianela Oliva on 06-26-2022 AST [Catalytic activity/Vol] 18 U/L 10-42 [facility] Serum or plasma calcium richy urement (mass/volume)Ordered By: Marianela Oliva on 06-26-2022 Calcium [Mass/Vol] 9.0 mg/dL 8.2-10.2 [facility] Serum or plasma chloride alma surement (moles/volume)Ordered By: Marianela Oliva on 06-26-2022 Chloride [Moles/Vol] 106 mmol/L 95-114 [facility] Serum or plasma high density lipoprotein (HDL) cholesterol measurementOrdered By: Marianela Oliva on 06-26-2022 Cholesterol in HDL [Mass/Vol] 49 mg/dL 35-85 [facility] Comment on above: HDL CHOL ATP-III CLA SSIFICATION Cardiovascular RiskHDL > or equal to 60 mg/dL LOWHDL < 40 mg/dL HIGH Serum or plasma potassium me asurement (moles/volume)Ordered By: Marianela Oliva on 06-26-2022 Potassium [Moles/Vol] 4.1 mmol/L 3.5-5.1 [facility] Serum or plasma sodium measu rement (moles/volume)Ordered By: Marianela Oliva on 06-26-2022 Sodium [Moles/Vol] 137 mmol/L 136-146 [facility] Serum or plasma total biliru bin measurement (mass/volume)Ordered By: Marianela Oliva on 06-26-2022 Bilirubin [Mass/Vol] 0.6 mg/dL 0.3-1.2 [facility] Serum or plasma total carbon dioxide measurement (moles/volume)Ordered By: Marianela Oliva on 06-26-2022 CO2 [Moles/Vol] 27.0 mmol/L 22.0-30.0 [facility] Serum or plasma total choles terol/high density lipoprotein (HDL) cholesterol mass ratOrdered By: Marianela Oliva on 06-26-2022 Cholesterol.total/Chol esterol in HDL [Mass ratio] 3.6 {ratio} <5.0 [facility] Serum or plasma urea nitroge n measurement (mass/volume)Ordered By: Marianela Oliva on 06-26-2022 Urea nitrogen [Mass/Vol] 14 mg/dL 07-10 [facility] TSH DL <= 0.005 mIU/L QnOrde red By: Marianela Oliva on 06-26-2022 TSH Qn 1.33 m[IU]/L 0.45-5.33 [facility] Dipstick & Microscopicon Dipstick & [facility] extra[facility] Other Urine 10 SGon 01-07-2022 Albumin DL <= 20 mg/L (U) [Mass/Vol] 100 mg/dL [employer] Other Albumin DL <= 20 mg/L (U) [Mass/Vol] Large [employer] Other pH (U) 6.0 [pH] [facility] Other Urine 10 SG Negative [employer] [facility] Other Urine 10 SG 1.030 [facility] Other Urine 10 SG Large [employer] [facility] Other Urine 10 SG 0.2 [facility] Other Urine 10 SG Positive [employer] [facility] Other Urine Cultureon 01-07-2022 Urine Culture >100,000 [facility] Other Urine Culture <16 Susceptible [employer] Other Urine Culture <8 Susceptible [employer] Other Urine Culture <4 Susceptible [employer] Other Urine Culture <2 Susceptible [employer] Other Urine Culture <1 Susceptible [employer] Other Urine Culture <0.5 Susceptible [employer] Other Urine Culture <32 Susceptible [employer] Other Urine Culture <2/38 Susceptible [employer] Other Cult,Urine,CCon 12-24-2018 Cult,Urine,CC Specimen Description .URINE Special Requests .CLEAN CATCH URINE Culture NO GROWTH Report Status FINAL 12/24/2018 Normal [facility] Comment on above: Performed By: #### C PDAU #### [address] [place] [address] Chlamydia/GC DNA, Uron 12-23 Protein mass conc Negative Normal NEG [facility] Comment on above: Result Comment: NEIS [...] target. Performed By: #### C PDAU #### [address] [place] [address] Result Comment: CHLA MYDIA TRACHOMATIS DNA not [...] HIV Ag/Abon 12-23-2018 HIV Ag/Ab NONREACTIVE Normal [facility] Comment on above: Result Comment: No l aboratory evidence of HIV infection. If acute HIV infection is suspected, consider testing for HIV-1 RNA. Performed By: #### C PDAU #### [address] [place] [address] Hep C Abon 12-23-2018 Hep C Ab NONREACTIVE Normal [facility] Comment on above: Result Comment: The hepatitis [...] PCR. Performed By: #### C PDAU #### [address] [place] [address] Profileon 9 T.pallidum Ab Screen NONREACTIVE Normal [facility] Comment on above: Result Comment: T. pallidum antibodies are not detected. There is no serological evidence of infection with T. pallidum (early primary syphilis cannot be excluded). Retest in 2-4 weeks if syphilis is clinically suspect. Performed By: #### C PDAU #### [address] [place] [address] Hep B Surf Ag NONREACTIVE Normal [facility] Comment on above: Performed By: #### C PDAU #### [address] [place] [address] Rubella Ab, IgG 52.3 IU/mL [facility] Comment on above: Result Comment: REFERENCE RANGE: <5.0 NON-REACTIVE (non-immune) 5.0 TO 9.9 EQUIVOCAL >=10.0 REACTIVE (immune) Performed By: #### C PDAU #### [address] [place] [address] Profileon 9 Abs. Basophil <0.03 Normal 0.00-0.20 [facility] Comment on above: Performed By: #### C PDAU #### [address] [place] [address] Abs.Imm.Granulocyte 0.04 k/uL Normal 0.00-0.30 [facility] Comment on above: Performed By: #### C PDAU #### [address] [place] [facility] Abs.Neutrophil (Seg) 4.44 k/uL Normal 1.50-8.10 [facility] Comment on above: Performed By: #### C PDAU #### [address] [place] [facility] Basophils/100 WBC (Bld) 0 % Normal 0-2 [facility] Comment on above: Performed By: #### C PDAU #### [address] [place] [address] Eosinophils #/vol (Bld) 0.08 10*3/uL Normal 0.00-0.44 [facility] Comment on above: Performed By: #### C PDAU #### [address] [place], [place] [address] Eosinophils/100 WBC (Bld) 1 % Normal 1-4 [facility] Comment on above: Performed By: #### C PDAU #### [address] [place], [place] [address] Erythrocyte distribution width Ratio (RBC) 13.2 % Normal 11.8-14.4 [facility] Comment on above: Performed By: #### C PDAU #### [address] [place] [facility] Hematocrit Volume Fraction (Bld) 35.3 % Low 36.3-47.1 [facility] Comment on above: Performed By: #### C PDAU #### [address] [place], [place] [address] Hemoglobin mass conc (Bld) 11.4 g/dL Low 11.9-15.1 [facility] Comment on above: Performed By: #### C PDAU #### [address] [place], [facility] Immature granulocytes #/vol (Bld) 1 % High 0 [facility] Comment on above: Performed By: #### C PDAU #### [address] [address] [place], [place] [address] Lymphocytes #/vol (Bld) 1.70 10*3/uL Normal 1.10-3.70 [facility] Comment on above: Performed By: #### C PDAU #### [address] [place], [place] [address] Lymphocytes/100 WBC (Bld) 25 % Normal 24-43 [facility] Comment on above: Performed By: #### C PDAU #### [address] [place], [place] [address] MCH Entitic mass (RBC) 26.5 pg Normal 25.2-33.5 [facility] Comment on above: Performed By: #### C PDAU #### [address] [place], [facility] MCHC mass conc (RBC) 32.3 g/dL Normal 28.4-34.8 [facility] Comment on above: Performed By: #### C PDAU #### [address] [place], [facility] MCV Entitic volume (RBC) 82.1 fL Low 82.6-102.9 [facility] Comment on above: Performed By: #### C PDAU #### [address] [place] [address] Monocytes #/vol (Bld) 0.66 10*3/uL Normal 0.10-1.20 [facility] Comment on above: Performed By: #### C PDAU #### [address] [place] [address] Monocytes/100 WBC (Bld) 10 % Normal 3-12 [facility] Comment on above: Performed By: #### C PDAU #### [address] [place] [address] Neutrophil (Seg) 63 % Normal 36-65 [facility] Comment on above: Performed By: #### C PDAU #### [address] [place] [address] NRBC Automated 0.0 per 100 WBC Normal 0.0 [facility] Comment on above: Performed By: #### C PDAU #### [address] [place] [address] Platelet mean volume Entitic volume (Bld) 10.8 fL Normal 8.1-13.5 [facility] Comment on above: Performed By: #### C PDAU #### [address] [place] [address] Platelets #/vol (Bld) 298 10*3/uL Normal 138-453 [facility] Comment on above: Performed By: #### C PDAU #### [address] [place] [address] RBC #/vol (Bld) 4.30 10*6/uL Normal 3.95-5.11 [facility] Comment on above: Performed By: #### C PDAU #### [address] [place] [address] WBC #/vol (Bld) 6.9 10*3/uL Normal 3.5-11.3 [facility] Comment on above: Performed By: #### C PDAU #### [address] [place] [address] Auto Diff Performed NOT REPORTED Normal [facility] Comment on above: Performed By: #### C PDAU #### [address] [place] [address] Platelets #/vol (Bld) NOT REPORTED Normal [facility] Comment on above: Performed By: #### C PDAU #### [address] [place] [address] RBC morphology finding Nom (Bld) NOT REPORTED Normal [facility] Comment on above: Performed By: #### C PDAU #### [address] [place] [address] WBC Morphology NOT REPORTED Normal [facility] Comment on above: Performed By: #### C PDAU #### [address] [place] [address] Type + Scrnon 12-22 Type + Scrn Negative Normal [facility] Comment on above: Performed By: #### C PDAU #### [address] [place] [address] Toxicology Scree, Urineon Amphetamine(s),Ur Negative Normal NEG [facility] Comment on above: Performed By: #### C PDAU #### [address] [place] [address] Barbiturate(s),Ur Negative Normal NEG [facility] Comment on above: Performed By: #### C PDAU #### [address] [place] [address] Benzodiazepine(s) Negative Normal NEG [facility] Comment on above: Performed By: #### C PDAU #### [address] [place] [address] Buprenorphrine, Ur Negative Normal [facility] Comment on above: Performed By: #### C PDAU #### [address] [place] [address] Cannabinoid(s),Ur Negative Normal [facility] Comment on above: Performed By: #### C PDAU #### [address] [place] [address] Cocaine Metabolite Negative Normal [facility] Comment on above: Performed By: #### C PDAU #### [address] [place] [address] Methadone Ql (U) Negative Normal [facility] Comment on above: Performed By: #### C PDAU #### [address] [place] [address] Methamphetamine, Ur Negative Normal [facility] Comment on above: Performed By: #### C PDAU #### [address] [place] [address] Opiate(s), Ur Negative Normal [facility] Comment on above: Performed By: #### C PDAU #### [address] [place] [address] Oxycodone, Urine Negative Normal [facility] Comment on above: Performed By: #### C PDAU #### [address] [place] [address] Phencyclidine, Ur Negative Normal [facility] Comment on above: Performed By: #### C PDAU #### [address] [place] [address] Protein mass conc (U) Negative Normal NEG [facility] Comment on above: Performed By: #### C PDAU #### [address] [place] [address] Tricyclic antidepressants Screen Ql (U) Negative Normal NEG [facility] Comment on above: Result Comment: Drug screen results are to be used for medical purposes only. All positive results are unconfirmed. Testing for employment or legal uses should be sent to a reference laboratory for confirmation. Performed By: #### C PDAU #### [address] [place] [address] Interpretive Info NOT REPORTED Normal [facility] Comment on above: Performed By: #### C PDAU #### [address] [place] [address] MDMA, Urine NOT REPORTED Normal NEG [facility] Comment on above: Performed By: #### C PDAU #### [address] [place] [address] Coding Summary.on 12-11-2018 Coding Summary. CODING DATE: 019 [facility] STATUS: Home (Routine DC) PAYOR: Commercial Insurance [...] CphT Date Saved: 12/11/2018 09:36 am Normal [facility] US 1st Trimesteron 12-09-2018 US 1st Trimester Exam Date/Time: 12/09/2018 15:15 EST [...] Transvaginal Ultrasound Performed Size = Dates Normal [facility] US Transvaginalon 12-09-2018 US Transvaginal Exam Date/Time: 12/09/2018 15:15 EST Reason for Exam: nausea hx of molar Report Please refer to ultrasound transabdominal first trimester report. FINAL REPORT Dictated: 12/09/2018 3:50 pm Aurelia Mullen MD Signed (Electronic Signature): 12/09/2018 3:50 pm Signed by: uArelia Mullen MD Transcribed by: DARWIN Technologist: ADARSH Escalera [facility] Progress Noteon 03-24-2018 HIM IP Note OR Stator Plate Washer Normal [facility] HCG, Quanton 03-22-2018 HCG, Quant 64 IU/L High <5 [facility] Comment on above: Result Comment: Non-preg premeno <=5 Postmeno <=8 Male <=3 If HCG results do not concur with clinical observations, additional testing to confirm result is recommended. This test is not labeled for use as a tumor marker. Performed at [address] [place], [place] [id number] ([phone] Performed By: #### C PDAU #### [address] [place] [address] HCG, Quanton 03-15-2018 HCG, Quant 613 IU/L High <5 [facility] Comment on above: Result Comment: Non-preg premeno <=5 Postmeno <=8 Male <=3 If HCG results do not concur with clinical observations, additional testing to confirm result is recommended. This test is not labeled for use as a tumor marker. Performed at [address] [place] [address] Performed By: #### C PDAU #### [address] [place] [address] OPERATIVE REPORTon 8 OPERATIVE REPORT [address] [place] [address] OPERATIVE REPORT PATIENT NAME: NORIS GOETZ : 1990 MED REC NO: [id number] ROOM: ACCOUNT NO: [id number] ADMIT DATE: 03/09/2018 PROVIDER: Chau Sorenson DATE [...] be correct. Of note, she will receive Gardners 5/325 for any postoperative cramping, and I have ordered an hCG to be repeated in approximately one week. CHAU SORENSON [id number] Doc#: [id number] CC: Marianela Oliva [facility] Surgical Pathologyon 018 Surgical Pathology (NOTE) [id number] [facility] ANATOMIC PATHOLOGY [address] [place] [address]. [place], [place] [address] SURGICAL PATHOLOGY CONSULTATION Patient Name: NORIS GOETZ [facility] Rec: [id number] Path Number: [id number] Collected: 03/09/2018 Received: 03/10/2018 Reported: 03/11/2018 14:53 [...] grossly identified. Cystic structures are not evident. Chief Information Officer sections are submitted between sponges in A-H. tm Microscopic Description Most of the submitted tissue consists of blood clot and decidua with foci of necrosis and acute inflammation. Portions of endometrium show gestational change. There are rare immature, small avascular placental villi and a few associated syncytiotrophoblasts. Histologic changes to suggest gestational trophoblastic disease are absent. Normal [facility] Progress Noteon 03-08-2018 HIM IP Note OR Stator Plate Washer Normal [facility] Chlamydia/GC DNA, Uron 03-07 Protein mass conc Negative Normal NEG [facility] Comment on above: Result Comment: NEIS SERIA GONORRHOEAE DNA not detected by nucleic acid amplification. Performed at [address] [address] Performed By: #### U CGP #### [address] [address] Result Comment: CHLA MYDIA TRACHOMATIS DNA not detected by nucleic acid amplification. HCG, Quanton 03-07-2018 HCG, Quant 54153 IU/L High <5 [facility] Comment on above: Result Comment: Non-preg premeno <=5 Postmeno <=8 Male <=3 If HCG results do not concur with clinical observations, additional testing to confirm result is recommended. This test is not labeled for use as a tumor marker. Performed at [address] [place] [address] ([phone] Performed By: #### B HCG #### [address] [place] [address] RHIG, Transfuseon 03-07-2018 RHIG, Transfuse Unit Number [id number] /45 Blood Component Type RHIG Unit Division 00 Status of Unit TRANSFUSED Transfusion Status OK TO TRANSFUSE Performed at [address] [place] [address] Normal [facility] Comment on above: Performed By: #### T RHIG #### [address] [place] [address] Cult,Urine,CCon 03-05-2018 Cult,Urine,CC Specimen Description .URINE Performed at [address] [place] [address] Special Requests CCMS Performed at [address] [place] [address] Culture NO SIGNIFICANT GROWTH Performed at [address] [address] Report Status FINAL 03/04/2018 [facility] Comment on above: Performed By: #### C INNA #### [address] [place] [address] HIV Ag/Abon 03-04-2018 HIV Ag/Ab NONREACTIVE Normal NR [facility] Comment on above: Result Comment: No l aboratory evidence of HIV infection. If acute HIV infection is suspected, consider testing for HIV-1 RNA. Performed at [address] [address] Performed By: #### H IVCMB #### [address] [address] Hep C Abon 03-04-2018 Hep C Ab NONREACTIVE Normal NR [facility] Comment on above: Result Comment: The [...] ordering HCV RNA by PCR. Performed at [address] [address] Performed By: #### A HCV #### [address] [address] Profileon 8 T.pallidum Ab Screen NONREACTIVE Normal NR [facility] Comment on above: Result Comment: T. pallidum antibodies are not detected. There is no serological evidence of infection with T. pallidum (early primary syphilis cannot be excluded). Retest in 2-4 weeks if syphilis is clinically suspect. Performed at [address] [address] Performed By: #### P RENAT #### [address] [address] Hep B Surf Ag NONREACTIVE Normal [facility] Comment on above: Performed By: #### P RENAT #### [address] [address] Rubella Ab, IgG 65.7 IU/mL Normal [facility] Comment on above: Result Comment: REFERENCE RANGE: <5.0 NON-REACTIVE (non-immune) 5.0 TO 9.9 EQUIVOCAL >=10.0 REACTIVE (immune) Performed By: #### P RENAT #### [address] [address] Toxicology Scree, Urineon Amphetamine(s),Ur Negative Normal NEG [facility] Comment on above: Performed By: #### C PDAU #### [address] [place] [address] Barbiturate(s),Ur Negative Normal NEG [facility] Comment on above: Performed By: #### C PDAU #### [address] [place] [address] Benzodiazepine(s) Negative Normal NEG [facility] Comment on above: Performed By: #### C PDAU #### [address] [place] [address] Buprenorphrine, Ur Negative Normal NEG [facility] Comment on above: Result Comment: Perf ormed at [address] [place] [address] Performed By: #### C PDAU #### [address] [place] [address] Cannabinoid(s),Ur Negative Normal [facility] Comment on above: Performed By: #### C PDAU #### [address] [place] [address] Cocaine Metabolite Negative Normal [facility] Comment on above: Performed By: #### C PDAU #### [address] [place] [address] Methadone Ql (U) Negative Normal [facility] Comment on above: Performed By: #### C PDAU #### [address] [place] [address] Methamphetamine, Ur Negative Normal [facility] Comment on above: Performed By: #### C PDAU #### [address] [place] [address] Opiate(s), Ur Negative Normal NEG [facility] Comment on above: Performed By: #### C PDAU #### [address] [place] [address] Oxycodone, Urine Negative Normal NEG [facility] Comment on above: Performed By: #### C PDAU #### [address] [place] [address] Phencyclidine, Ur Negative Normal NEG [facility] Comment on above: Performed By: #### C PDAU #### [address] [place] [address] Protein mass conc (U) Negative Normal NEG [facility] Comment on above: Performed By: #### C PDAU #### [address] [place] [address] Tricyclic antidepressants Screen Ql (U) Negative Normal NEG [facility] Comment on above: Result Comment: Drug screen results are to be used for medical purposes only. All positive results are unconfirmed. Testing for employment or legal uses should be sent to a reference laboratory for confirmation. Performed By: #### C PDAU #### [facility] [address] [place] [address] Profileon 8 Abs. Basophil 0.05 k/uL Normal 0.00-0.20 [facility] Comment on above: Performed By: #### P RENAT #### [address] [address] Abs.Imm.Granulocyte 0.04 k/uL Normal 0.00-0.30 [facility] Comment on above: Performed By: #### P RENAT #### [address] [address] Abs.Neutrophil (Seg) 5.60 k/uL Normal 1.50-8.10 [facility] Comment on above: Performed By: #### P RENAT #### [place] [address] [place] [address] Basophils/100 WBC (Bld) 1 % Normal 0-2 [facility] Comment on above: Performed By: #### P RENAT #### [address] [address] Eosinophils #/vol (Bld) 0.18 10*3/uL Normal 0.00-0.44 [facility] Comment on above: Performed By: #### P RENAT #### [address] [address] Eosinophils/100 WBC (Bld) 2 % Normal 1-4 [facility] Comment on above: Performed By: #### P RENAT #### [address] [address] Erythrocyte distribution width Ratio (RBC) 13.0 % Normal 11.8-14.4 [facility] Comment on above: Performed By: #### P RENAT #### [address] [address] Hematocrit Volume Fraction (Bld) 39.1 % Normal 36.3-47.1 [facility] Comment on above: Performed By: #### P RENAT #### [address] [address] Hemoglobin mass conc (Bld) 12.6 g/dL Normal 11.9-15.1 [facility] Comment on above: Performed By: #### P RENAT #### [address] [address] Immature granulocytes #/vol (Bld) 1 % High 0 [facility] Comment on above: Performed By: #### P RENAT #### [address] [address] Lymphocytes #/vol (Bld) 2.18 10*3/uL Normal 1.10-3.70 [facility] Comment on above: Performed By: #### P RENAT #### [address] [address] Lymphocytes/100 WBC (Bld) 25 % Normal 24-43 [facility] Comment on above: Performed By: #### P RENAT #### [address] [address] MCH Entitic mass (RBC) 26.9 pg Normal 25.2-33.5 [facility] Comment on above: Performed By: #### P RENAT #### [facility] [address] [place] [address] MCHC mass conc (RBC) 32.2 g/dL Normal 28.4-34.8 [facility] Comment on above: Performed By: #### P RENAT #### [place] [address] [place] [address] MCV Entitic volume (RBC) 83.4 fL Normal 82.6-102.9 [facility] Comment on above: Performed By: #### P RENAT #### [address] [address] Monocytes #/vol (Bld) 0.79 10*3/uL Normal 0.10-1.20 [facility] Comment on above: Performed By: #### P RENAT #### [address] [address] Monocytes/100 WBC (Bld) 9 % Normal 3-12 [facility] Comment on above: Performed By: #### P RENAT #### [address] [address] Neutrophil (Seg) 62 % Normal 36-65 [facility] Comment on above: Performed By: #### P RENAT #### [address] [address] NRBC Automated 0.0 per 100 WBC Normal 0.0 [facility] Comment on above: Performed By: #### P RENAT #### [address] [address] Platelet mean volume Entitic volume (Bld) 11.2 fL Normal 8.1-13.5 [facility] Comment on above: Performed By: #### P RENAT #### [address] [address] Platelets #/vol (Bld) 243 10*3/uL Normal 138-453 [facility] Comment on above: Performed By: #### P RENAT #### [address] [address] RBC #/vol (Bld) 4.69 10*6/uL Normal 3.95-5.11 [facility] Comment on above: Performed By: #### P RENAT #### [address] [address] WBC #/vol (Bld) 8.8 10*3/uL Normal 3.5-11.3 [facility] Comment on above: Performed By: #### P RENAT #### [address] [address] Auto Diff Performed NOT REPORTED Normal [facility] Comment on above: Performed By: #### P RENAT #### [address] [address] Platelets #/vol (Bld) NOT REPORTED Normal [facility] Comment on above: Performed By: #### P RENAT #### [address] [address] RBC morphology finding Nom (Bld) NOT REPORTED Normal [facility] Comment on above: Performed By: #### P RENAT #### [address] [address] WBC Morphology NOT REPORTED Normal [facility] Comment on above: Performed By: #### P RENAT #### [address] [address] Type + Scrnon 03-03 Type + Scrn ABO/Rh(D) B NEGATIV E Antibody Screen NEGATIVE Performed at [address] [place] [address] Normal [facility] Comment on above: Performed By: #### P RTYS #### [address] [place] [address] Progress Noteon 03-03-2018 HIM IP Note OR Stator Plate Washer Normal [facility] Toxicology Scree, Urineon Interpretive Info NOT REPORTED Normal [facility] Comment on above: Performed By: #### C PDAU #### [address] [place] [address] MDMA, Urine NOT REPORTED Normal NEG [facility] Comment on above: Performed By: #### C PDAU #### [address] [place] [address] Hep Bs Abon 01-22-2018 HBV surface Ab Ql (S) Reactive Fis [facility] Comment on above: Result Comment: Non Reactive: Inconsistent with immunity, less than 10 mIU/mL Reactive: Consistent with immunity, greater than 9.9 mIU/mL Performed at: [address] [id number] PhD Sumeet Merrill Performed By: #### 2 [id number], [id number] #### [facility] [address] [place] [address] Varic IgGon 01-22-2018 VZV IgG IA Qn (S) 574 Immune >165 [facility] Comment on above: Result Comment: Nega tive <135 Equivocal 135 - 165 Positive >165 A positive result generally indicates exposure to the pathogen or administration of specific immunoglobulins, but it is not indication of active infection or stage of disease. Performed at: [address] [id number] PhD Sumeet Merrill Performed By: #### 2 [id number], [id number] #### [facility] [address] [place] [address] Progress Noteon 11-18-2017 HIM IP Note OR Stator Plate Washer Normal [facility] Vital Signs Date Time Vital Sign Value Performing Clinician Facility 06-21-2025 09:54-0400 Body mass index (BMI) [Ratio] 35.12 kg/m2 Voz.[employer] DO Work Phone: [facility] 06-21-2025 09:54-0400 Body weight 104.78 kg Yasmani Supercell Work Phone: [facility] 06-21-2025 09:54-0400 Diastolic blood pressure 72 mm[Hg] Yasmani Kaylen DO Work Phone: [facility] 06-21-2025 09:54-0400 Systolic blood pressure 124 mm[Hg] Yasmani Kaylen DO Work Phone: [facility] 06-12-2025 08:32-0400 Body height 170.18 cm Marianela Oliva MD Work Phone: [facility] 06-12-2025 08:32-0400 Body mass index (BMI) [Ratio] 36.1 kg/m2 Marianela Oliva MD Work Phone: [facility] 06-12-2025 08:32-0400 Body weight 104.77 kg Marianela Oliva MD Work Phone: [facility] 06-12-2025 08:32-0400 Diastolic blood pressure 81 mm[Hg] Marianela Oliva MD Work Phone: [facility] 06-12-2025 08:32-0400 Heart rate 88 /min Marianela Oliva MD Work Phone: [facility] 06-12-2025 08:32-0400 Respiratory rate 12 /min Marianela Oliva MD Work Phone: [facility] 06-12-2025 08:32-0400 SaO2% (BldA) [Mass fraction] 97 % Marianela Oliva MD Work Phone: [facility] 06-12-2025 08:32-0400 Systolic blood pressure 119 mm[Hg] Marianela Oliva MD Work Phone: [facility] 06-07-2025 10:26-0400 Body mass index (BMI) [Ratio] 35.14 kg/m2 Yasmani Kaylen DO Work Phone: [facility] 06-07-2025 10:26-0400 Body weight 104.83 kg Yasmani Kaylen DO Work Phone: [facility] 06-07-2025 10:26-0400 Diastolic blood pressure 70 mm[Hg] Yasmani Kaylen DO Work Phone: [facility] 06-07-2025 10:26-0400 Systolic blood pressure 112 mm[Hg] Yasmani Kaylen DO Work Phone: [facility] 05-22-2025 11:13-0400 Body mass index (BMI) [Ratio] 34.64 kg/m2 Yasmani Kaylen DO Work Phone: [facility] 05-22-2025 11:13-0400 Body weight 103.33 kg Yasmani Kaylen DO Work Phone: [facility] 05-22-2025 11:13-0400 Diastolic blood pressure 72 mm[Hg] Yasmani Kaylen DO Work Phone: [facility] 05-22-2025 11:13-0400 Systolic blood pressure 110 mm[Hg] Yasmani Kaylen DO Work Phone: [facility] 05-10-2025 08:31-0400 Body mass index (BMI) [Ratio] 34.25 kg/m2 Yasmani Kaylen DO Work Phone: [facility] 05-10-2025 08:31-0400 Body weight 102.17 kg Yasmani Kaylen DO Work Phone: [facility] 05-10-2025 08:31-0400 Diastolic blood pressure 78 mm[Hg] Yasmani Kaylen DO Work Phone: [facility] 05-10-2025 08:31-0400 Systolic blood pressure 124 mm[Hg] Yasmani Kaylen DO Work Phone: [facility] 04-10-2025 10:38-0400 Body mass index (BMI) [Ratio] 33.88 kg/m2 Yasmani Kaylen DO Work Phone: [facility] 04-10-2025 10:38-0400 Body weight 101.06 kg Yasmani Kaylen DO Work Phone: [facility] 04-10-2025 10:38-0400 Diastolic blood pressure 68 mm[Hg] Yasmani Kaylen DO Work Phone: [facility] 04-10-2025 10:38-0400 Systolic blood pressure 108 mm[Hg] Yasmani Kaylen DO Work Phone: [facility] 03-15-2025 10:00-0400 Body mass index (BMI) [Ratio] 33.27 kg/m2 Yasmani Kaylen DO Work Phone: [facility] 03-15-2025 10:00-0400 Body weight 99.25 kg Yasmani Kaylen DO Work Phone: [facility] 03-15-2025 10:00-0400 Diastolic blood pressure 70 mm[Hg] Yasmani Kaylen DO Work Phone: [facility] 03-15-2025 10:00-0400 Systolic blood pressure 110 mm[Hg] Yasmani Kaylen DO Work Phone: [facility] 02-15-2025 09:37-0400 Body mass index (BMI) [Ratio] 32.96 kg/m2 Yasmani Kaylen DO Work Phone: [facility] 02-15-2025 09:37-0400 Body weight 98.34 kg Yasmani Kaylen DO Work Phone: [facility] 02-15-2025 09:37-0400 Diastolic blood pressure 70 mm[Hg] Yasmani Kaylen DO Work Phone: [facility] 02-15-2025 09:37-0400 Systolic blood pressure 110 mm[Hg] Yasmani Kaylen DO Work Phone: [facility] 01-18-2025 09:45-0400 Body mass index (BMI) [Ratio] 32.1 kg/m2 Yasmani Kaylen DO Work Phone: [facility] 01-18-2025 09:45-0400 Body weight 95.77 kg Yasmani Kaylen DO Work Phone: [facility] 01-18-2025 09:45-0400 Diastolic blood pressure 80 mm[Hg] Yasmani Kaylen DO Work Phone: [facility] 01-18-2025 09:45-0400 Systolic blood pressure 100 mm[Hg] Yasmani Khano DO Work Phone: [facility] 12-06-2024 09:47-0500 Heart rate 75 /min Marianela Oliva MD Work Phone: [facility] 12-06-2024 09:47-0500 Respiratory rate 16 /min Marianela Oliva MD Work Phone: [facility] 12-06-2024 07:53-0500 Body height 170.18 cm Marianela Oliva MD Work Phone: [facility] 12-06-2024 07:53-0500 Body temperature 98.2 [degF] Marianela Oliva MD Work Phone: [facility] 12-06-2024 07:53-0500 Body weight 90.71 kg Marianela Oliva MD Work Phone: [facility] 12-06-2024 07:53-0500 Diastolic blood pressure 60 mm[Hg] Marianela Oliva MD Work Phone: [facility] 12-06-2024 07:53-0500 SaO2% (BldA) [Mass fraction] 99 % Marianela Oliva MD Work Phone: [facility] 12-06-2024 07:53-0500 Systolic blood pressure 121 mm[Hg] Marianela Oliva MD Work Phone: [facility] 08-15-2024 09:05-0400 Body height 172.72 cm MD Marianela Oliva Work Phone: [facility] 08-15-2024 09:05-0400 Body mass index (BMI) [Ratio] 32.1 kg/m2 MD Marianela Oliva Work Phone: [facility] 08-15-2024 09:05-0400 Body weight 95.7 kg MD Marianela Oliva Work Phone: [facility] 08-15-2024 09:05-0400 Diastolic blood pressure 85 mm[Hg] MD Marianela Oliva Work Phone: [facility] 08-15-2024 09:05-0400 Heart rate 80 /min MD Marianela Oliva Work Phone: [facility] 08-15-2024 09:05-0400 Systolic blood pressure 125 mm[Hg] MD Marianela Oliva Work Phone: [facility] 08-11-2024 09:14-0400 Body height 172.72 cm MD Marianela Oliva Work Phone: [facility] 08-11-2024 09:14-0400 Body mass index (BMI) [Ratio] 31.9 kg/m2 MD Marianela Oliva Work Phone: [facility] 08-11-2024 09:14-0400 Body temperature 97.8 [degF] MD Marianela Oliva Work Phone: [facility] 08-11-2024 09:14-0400 Body weight 95.25 kg MD Marianela Oliva Work Phone: [facility] 08-11-2024 09:14-0400 Diastolic blood pressure 72 mm[Hg] MD Marianela Oliva Work Phone: [facility] 08-11-2024 09:14-0400 Heart rate 99 /min MD Marianela Oliva Work Phone: [facility] 08-11-2024 09:14-0400 Respiratory rate 18 /min MD Marianela Oliva Work Phone: [facility] 08-11-2024 09:14-0400 SaO2% (BldA) [Mass fraction] 96 % MD Marianela Oliva Work Phone: [facility] 08-11-2024 09:14-0400 Systolic blood pressure 106 mm[Hg] MD Marianela Oliva Work Phone: [facility] 05-18-2024 10:41-0400 Body height 173.99 cm MD Marianela Oliva Work Phone: [facility] 05-18-2024 10:41-0400 Body mass index (BMI) [Ratio] 32.2 kg/m2 MD Marianela Oliva Work Phone: [facility] 05-18-2024 10:41-0400 Body weight 97.52 kg MD Marianela Oliva Work Phone: [facility] 05-18-2024 10:41-0400 Diastolic blood pressure 82 mm[Hg] MD Marianela Oliva Work Phone: [facility] 05-18-2024 10:41-0400 Heart rate 72 /min MD Marianela Oliva Work Phone: [facility] 05-18-2024 10:41-0400 Systolic blood pressure 117 mm[Hg] MD Marianela Oliva Work Phone: [facility] 01-07-2022 12:45-0400 Body height 170.18 cm Regina Missler Other [facility] Other 01-07-2022 12:45-0400 Body temperature 98.9 [degF] Regina Missler Other [facility] Other 01-07-2022 12:45-0400 Diastolic blood pressure 81 mm[Hg] Regina Missler Other [facility] Other 01-07-2022 12:45-0400 Respiratory rate 18 /min Regina Missler Other [facility] Other 01-07-2022 12:45-0400 SaO2% (BldA) [Mass fraction] Regina Missler Other [facility] Other 01-07-2022 12:45-0400 Systolic blood pressure 121 mm[Hg] Regina Missler Other [facility] Other Encounters Encounter Date Encounter Type Care Provider Facility Start: 06-22-2025 End: 06-22-2025 Clinisync Result Encounter Yasmani Kaylen DO Work Phone: [facility] Unsolicited Start: 06-22-2025 End: 06-22-2025 Clinisync Result Encounter Yasmani Kaylne DO Work Phone: [facility] Unsolicited Start: 06-21-2025 End: 06-21-2025 flow sheet Yasmani Kaylen DO Work Phone: [facility] Comment on above: Third trimester preg lisa ([facility]); 34 weeks gestation of ([facility]); Multigravida of advanced maternal age in third trimester ([facility]) Start: 06-21-2025 End: 06-21-2025 ambulatory YASMANI KAYLEN Not Available Start: 06-19-2025 End: 06-19-2025 Clinisync Result Encounter Yasmani Kaylen DO Work Phone: [facility] Unsolicited Start: 06-19-2025 End: 06-19-2025 Clinisync Result Encounter Yasmani Kaylen DO Work Phone: [facility] Unsolicited Start: 06-12-2025 End: 06-12-2025 ambulatory Marianela Oliva MD Work Phone: [facility] Work Phone: Start: 06-12-2025 End: 06-12-2025 Patient encounter procedure Marianela Oliva MD -[facility] Work Phone: Start: 06-07-2025 End: 06-07-2025 Bamboo flowsheet Yasmani Kaylen DO Work Phone: [facility] Start: 06-07-2025 End: 06-07-2025 Bamboo flowsheet Yasmani Kaylen DO Work Phone: [facility] Start: 06-07-2025 End: 06-07-2025 flow sheet Yasmani Kaylen DO Work Phone: [facility] Comment on above: Third trimester preg lisa ([facility]); 32 weeks gestation of ([facility]); Multigravida of advanced maternal age in third trimester ([facility]) Start: 06-07-2025 End: 06-07-2025 ambulatory YASMANI KAYLEN Not Available Start: 05-22-2025 End: 05-22-2025 flow sheet Yasmani Kaylen DO Work Phone: [facility] Comment on above: 30 weeks gestation o f ([facility]); Third trimester ([facility]); Antepartum multigravida of advanced maternal age ([facility]); Gestational diabetes mellitus (GDM), antepartum, gestational diabetes method of control unspecified ([facility]) Start: 05-22-2025 End: 05-22-2025 ambulatory YASMANI KAYLEN Not Available Start: 05-10-2025 End: 05-10-2025 Bamboo flowsheet Yasmani Kaylen DO Work Phone: [facility] Start: 05-10-2025 End: 05-10-2025 Bamboo flowsheet Yasmani Kaylen DO Work Phone: [facility] Start: 05-10-2025 End: 05-10-2025 flow sheet Yasmani Kaylen DO Work Phone: [facility] Comment on above: size consisten t with dates, antepartum ([facility]) (Primary Dx); Third trimester ([facility]); 28 weeks gestation of ([facility]); Antepartum multigravida of advanced maternal age ([facility]) Start: 05-10-2025 End: 05-10-2025 ambulatory YASMANI KAYLEN Not Available Start: 04-10-2025 End: 04-10-2025 Bamboo flowsheet Yasmani Kaylen DO Work Phone: [facility] Start: 04-10-2025 End: 04-10-2025 Bamboo flowsheet Yasmani Kaylen DO Work Phone: [facility] Start: 04-10-2025 End: 04-10-2025 flow sheet Yasmani Kaylen DO Work Phone: [facility] Comment on above: Second trimester pre gnancy ([facility]); 24 weeks gestation of ([facility]); Diabetes mellitus screening Start: 04-10-2025 End: 04-10-2025 ambulatory YASMANI KAYLEN Not Available Start: 04-02-2025 End: 04-02-2025 Departed Referred Mario Valle DO [facility] Start: 04-02-2025 End: 04-02-2025 ambulatory Mario Perez - [facility] Facility:[facility] Start: 03-15-2025 End: 03-15-2025 flow sheet Yasmani Kaylen DO Work Phone: [facility] Comment on above: 20 weeks gestation o f ; Second trimester ; Anxiety, generalized ([facility]) Start: 03-15-2025 End: 03-15-2025 ambulatory YASMANI KAYLEN Not Available Start: 03-15-2025 End: 03-15-2025 ambulatory YASMNAI KAYLEN Not Available Start: 03-14-2025 End: 03-14-2025 External Result Encounter Yasmani Kaylen DO Work Phone: [facility] Unsolicited Start: 03-14-2025 End: 03-14-2025 External Result Encounter Yasmani Kaylen DO Work Phone: [facility] Unsolicited Start: 03-14-2025 End: 03-14-2025 Patient encounter procedure Marianela Oliva MD Work Phone: [facility] Start: 03-14-2025 End: 03-14-2025 ambulatory Marianela Oliva MD Work Phone: [facility] Work Phone: Start: 02-15-2025 End: 02-15-2025 Bamboo [...] / Non-visit Marianela Oliva MD Work Phone: [facility] Work Phone: Start: 02-15-2025 End: 02-15-2025 Patient encounter procedure Yasmani Kaylen DO Work Phone: [facility] Work Phone: Start: 02-15-2025 End: 02-15-2025 Periodic preventive med est patient 18-39 yrs Yasmani Kaylen DO Work Phone: [facility] Comment on above: Well woman [...] encounter procedure Marianela Oliva MD Work Phone: [facility] Start: 12-27-2024 End: 12-27-2024 ambulatory Marianela Oliva MD Work Phone: [facility] Work Phone: Start: 12-21-2024 End: 12-21-2024 ambulatory YASMANI KAYLEN Not Available Start: 12-07-2024 Non-patient / Non-visit Marianela Oliva MD Work Phone: [facility] Work Phone: Start: 12-06-2024 End: 12-06-2024 Emergency department patient visit Marianela Oliva MD Work Phone: [facility]Emergency Room Work Phone: Start: 12-05-2024 End: 12-05-2024 Telephone encounter Yasmani Kaylen DO Work Phone: [facility] Start: 08-15-2024 Patient encounter status Pooja Oliva MD Work Phone: [facility] Start: 08-15-2024 End: 08-15-2024 ambulatory MD Marianela Oliva Work Phone: [facility] Work Phone: Start: 08-15-2024 End: 08-15-2024 Patient encounter procedure MD Marianela Oliva Work Phone: [facility] Work Phone: Start: 08-11-2024 End: 08-11-2024 ambulatory MD Marianela Oliva Work Phone: [facility] Work Phone: Start: 08-11-2024 End: 08-11-2024 Patient encounter procedure MD Marianela Oliva Work Phone: [facility] Work Phone: Start: 08-01-2024 End: 08-01-2024 ambulatory MD Marianela Oliva Work Phone: [facility] Work Phone: Start: 08-01-2024 End: 08-01-2024 Departed Referred MD Marianela Oliva Work Phone: [facility] [place] Work Phone: Start: 05-23-2024 End: 05-23-2024 Patient encounter procedure MD Marianela Oliva Work Phone: [facility] [place] Work Phone: Start: 05-23-2024 End: 05-23-2024 ambulatory MD Marianela Oliva Work Phone: [facility] Work Phone: Start: 05-18-2024 End: 05-18-2024 ambulatory MD Marianela Oliva Work Phone: [facility] Work Phone: Start: 05-18-2024 End: 05-18-2024 Patient encounter procedure MD Marianela Oliva Work Phone: [facility] Work Phone: Start: 05-17-2024 End: 05-17-2024 Departed Referred MD Marianela Oliva Work Phone: [facility] [place] Start: 05-17-2024 End: 05-17-2024 ambulatory MD Marianela Oliva Work Phone: [facility] Work Phone: Start: 07-12-2023 End: 07-12-2023 ambulatory MD Marianela Oliva Work Phone: [facility] Work Phone: Start: 07-12-2023 End: 07-12-2023 Departed Referred MD Marianela Oliva Work Phone: [facility]-Employee Benefit Screening Start: 02-23-2023 End: 02-23-2023 ambulatory MD Marianela Oliva Work Phone: [facility] Work Phone: Start: 02-23-2023 End: 02-23-2023 Patient encounter procedure MD Marianela Oliva Work Phone: [facility] Work Phone: Start: 02-04-2023 End: 02-04-2023 ambulatory Marianela Oliva Other [facility] Other Start: 02-04-2023 Office outpatient vi sit 15 minutes Marianela Oliva [facility] Start: 02-04-2023 Telephone encounter Marianela Oliva [facility] Start: 01-29-2023 End: 01-29-2023 ambulatory Marianela Oliva Other [facility] Other Start: 01-29-2023 Telephone encounter Marianela Oliva [facility] Start: 12-15-2022 End: 12-15-2022 Departed Referred MD Marianela Oliva Work Phone: [facility] [place] Work Phone: Start: 12-04-2022 End: 12-04-2022 ambulatory Marianela Oliva Other [facility] Other Start: 12-04-2022 Telephone encounter Marianela Oliva [facility] Start: 11-10-2022 End: 11-10-2022 ambulatory MD Marianela Oliva Work Phone: [facility] Work Phone: Start: 11-10-2022 End: 11-10-2022 Departed Referred MD Marianela Oliva Work Phone: [facility] [place] Work Phone: Start: 08-07-2022 End: 08-07-2022 ambulatory Regina Huddleston Other [facility] Other Start: 08-07-2022 Telephone encounter Regina [facility] Start: 06-26-2022 End: 06-26-2022 ambulatory MD Marianela Oliva Work Phone: [facility] Work Phone: Start: 06-26-2022 End: 06-26-2022 Departed Referred MD Marianela Oliva Work Phone: [facility]-[employer] Benefit Screening Start: 01-07-2022 End: 01-07-2022 ambulatory Regina Huddleston Other [facility] Other Start: 01-07-2022 Patient encounter procedure [facility] Start: 12-22-2018 End: 12-23-2018 Patient encounter procedure [facility] Start: 12-09-2018 End: 12-10-[address] [facility] [place] Start: 06-14-2018 Patient encounter MARIANELA OLIVA Fac ility:[facility] Start: 03-22-2018 End: 03-23-2018 Patient encounter procedure [facility] Start: 03-15-2018 End: 03-16-2018 Patient encounter procedure [facility] Start: 03-09-2018 End: 03-09-2018 Patient encounter procedure [facility] Start: 03-07-2018 End: 03-08-2018 Patient encounter procedure [facility] Start: 03-03-2018 End: 03-04-2018 Patient encounter procedure [facility] Start: 03-03-2018 End: 03-03-2018 Patient encounter procedure [facility] Start: 01-20-2018 End: 01-21-2018 Patient encounter procedure Macario Jarvis [place] Procedures Date Procedure Procedure Detail Performing Clinician Start: 06-22-2025 OB BPP W NON-STRESS Yasmani Kaylen DO Work Phone: Start: 06-21-2025 Urnls dip stick/tabl et rgnt non-auto w/o micrscp Yasmani Kaylen DO Work Phone: Start: 06-19-2025 OB BPP W NON-STRESS Yasmani Kaylen DO [...] stick/tabl et rgnt non-auto w/o micrscp Yasmani Abdullahi DO Work Phone: Start: 12-27-2024 Urine culture Marianela tracy MD Work Phone: Start: 12-27-2024 Antibody screen Mario Khalil [facility] Comment on above: Order Comment: NONFA STING.JKW Result Comment: PERF ORMED BY: [facility] [address] [place] [address] PATHOLOGIST COMMUNITY OUTREACH COORDINATOR LEÓN GARCIA M.D. Start: 12-06-2024 Diagnostic ultrasoun [...] CHAU SORENSON Start: 12-22-2018 Hepatitis c antibody FAWN WISDOM BRITTNI Start: 12-22-2018 C.TRACHOMATIS N.GONO RRHOEAE DNA, [...] SCREEN CHAU SORENSON Start: 03-09-2018 SURGICAL PATHOLOGY JUAN DAVIDL EY BRITTNI Start: 03-09-2018 DISCHARGE PATIENT JUAN DAVIDJAKE Y BRITTNI Start: 03-09-2018 ASSESS [facility] [place] Start: 03-09-2018 BEDREST CHAU [place] Start: 03-09-2018 Continuous pulse oximetry CHAU SORENSON Start: 03-09-2018 INITIATE OXYGEN THER APY PROTOCOL CHAU SORENSON Start: 03-09-2018 NEURO/VASCULAR CHECKS W DEGN SORENSON Start: 03-09-2018 DIET NPO, NOW CHAU MIKE DGES Start: 03-09-2018 MEASURE WEIGHT CHAU FLEMING Start: 03-09-2018 NOTIFY PHYSICIAN (SPECIFY) CHAU SORENSON Start: 03-09-2018 NURSING COMMUNICATION Sarahi SORENSON Start: 03-09-2018 PLACE INTERMITTENT P NEUMATIC [...] CHAU SORENSON Start: 03-03-2018 RHOGAM INJECTION ONLY Sarahi SORENSON Start: 03-03-2018 URINE CULTURE CLEAN CATCH CHAU SORENSON Start: 03-03-2018 URINE DRUG SCREEN, COMPREHENSIVE CHAU SORENSON Plan of Treatment Date Care Activity Detail Author Start: 08-28-2025 End: 08-28-2025 ambulatory [facility] Start: 07-12-2025 End: 07-12-2025 Patient encounter procedure 07/12/2025 9:10 AM EDT Routine [facility] [address] [place] [phone] Lanie Mendez, [employer] [address] [place] [phone] [facility] Start: 07-05-2025 End: 07-05-2025 Patient encounter procedure 07/05/2025 9:50 AM EDT Routine [facility] [address] [place] [phone] Yasmani Abdullahi, [address] [place] [address] [facility] Start: 06-21-2025 End: 06-21-2025 Patient encounter procedure 06/21/2025 9:40 AM EDT Routine [facility] [address] [place] [phone] Yasmani Abdullahi, [address] [place] [address] [facility] Start: 06-21-2025 End: 06-21-2025 Professional / ancillary services management 06/21/2025 9:00 AM EDT Ancillary Procedure [facility] [address] [place] [phone] [facility] Start: 06-07-2025 End: 12-08-2025 US biophysical profile w non stress test US biophysical profile w non stress test Imaging Routine Multigravida of advanced maternal age in third trimester ([facility]) Expected: 06/07/2025 (Approximate), Expires: 12/08/2025 [facility] Work Phone: Comment on above: Expected: 06/07/2025 (Approximate), Expires: 12/08/2025 Start: 06-07-2025 End: 06-07-2025 Patient encounter procedure [facility] Comment on above: Arrived Start: 05-22-2025 End: 05-22-2025 Patient encounter procedure 05/22/2025 11:00 AM EDT Routine [facility] [address] [place] [phone] Yasmani Abdullahi, DO [address] [place] [address] [facility] Start: 05-22-2025 End: 05-22-2025 Professional / ancillary services management 05/22/2025 10:30 AM EDT Ancillary Procedure [facility] [address] [facility] [place] [address] [facility] Start: 05-10-2025 End: 09-10-2025 US for US OB follow up transabdominal approach Imaging Routine Antepartum multigravida of advanced maternal age ([facility]) Expected: 05/10/2025, Expires: 09/10/2025 [facility] Work Phone: Comment on above: Expected: 05/10/2025 , Expires: 09/10/2025 Start: 05-10-2025 End: 05-10-2025 Patient encounter procedure [facility] Comment on above: Arrived Start: 04-10-2025 End: 04-10-2026 CBC panel - Blood by Automated count CBC Lab Routine Diabetes mellitus screening Expected: 04/10/2025 (Approximate), Expires: 04/10/2026 [facility] Work Phone: Comment on above: Expected: 04/10/2025 (Approximate), Expires: 04/10/2026 Start: 04-10-2025 End: 04-10-2026 Measurement of glucose 1 hour after glucose challenge for glucose tolerance test Glucose tolerance, 1 hour Lab Routine Diabetes mellitus screening Expected: 04/10/2025 (Approximate), Expires: 04/10/2026 [facility] Comment on above: Expected: 04/10/2025 (Approximate), Expires: 04/10/2026 Start: 04-10-2025 End: 04-10-2025 Patient encounter procedure [facility] Comment on above: Arrived Start: 03-15-2025 End: 03-15-2025 Patient encounter procedure 03/15/2025 9:50 AM EDT Routine [facility] [address] [place] [phone] Yasmani Abdullahi, DO [address] [place] [address] [facility] Start: 03-15-2025 End: 03-15-2025 Professional / ancillary services management 03/15/2025 8:30 AM EDT Ancillary Procedure [facility] [address] [facility] [place] [phone] [facility] Start: 02-15-2025 End: 03-18-2025 [...] AM EDT Routine [facility] [address] [facility] [place] [phone] Yasmani Abdullahi, [address] [facility] [place] [address] Arrived [facility] Comment on above: Arrived Start: 12-27-2024 Bacteria identified in Urine by Culture Urine Culture [facility] Start: 12-27-2024 Rubella IgG measurement [facility] Start: 12-27-2024 Urine culture [facility] Start: 12-27-2024 [facility] Start: 12-21-2024 End: 12-21-2024 ambulatory 12/21/2024 1:30 PM EST Initial [facility] [address] [facility] [place] [address] [facility] Start: 12-21-2024 End: 12-21-2024 Professional / ancillary services management 12/21/2024 1:00 PM EST Ancillary Procedure [facility] [address] [facility] [place] [address] [facility] Start: 12-06-2024 Diagnostic ultrasoun d of gravid uterus [facility] Start: 07-12-2023 [facility] CHLAMYDIA TRACHOMATI S (GENITO/STI) CHLAMYDIA TRACHOMATIS (GENITO/STI) Lab Routine Exposure to STD 16 weeks gestation of Second trimester Ordered: 02/15/2025 [facility] Comment on above: Ordered: 02/15/2025 Cytology Cervical or vaginal smear or scraping study Pap Smear Pathology and Cytology Routine Well woman exam with routine gynecological exam Ordered: 02/15/2025 [facility] Comment on above: Ordered: 02/15/2025 Hepatitis B virus surface Ag [Presence] in Serum or Plasma by Immunoassay [facility] Hepatitis C virus Ig G Ab [Presence] in Serum or Plasma by Immunoassay [facility] HIV 1+2 Ab+HIV1 p24 Ag [Presence] in Serum or Plasma by Immunoassay [facility] Human papilloma viru s DNA [Presence] in Unspecified specimen by Probe with amplification HPV DNA probe, amplified Microbiology Routine Well woman exam with routine gynecological exam Ordered: 02/15/2025 [facility] Comment on above: Ordered: 02/15/2025 Measurement of gluco se 1 hour after glucose challenge for glucose tolerance test GTT, 1 hour Lab Routine Antepartum multigravida of advanced maternal age Ordered: 01/18/2025 [facility] Work Phone: Comment on above: Ordered: 01/18/2025 Neisseria gonorrhoea e DNA [Presence] in Unspecified specimen by CORBY with probe detection Neisseria gonorrhea DNA probe, direct Lab Routine Exposure to STD 16 weeks gestation of Second trimester Ordered: 02/15/2025 [facility] Comment on above: Ordered: 02/15/2025 Patient Education Stomach Pain i n [facility] Work Phone: Patient referral [facility] Work Phone: Reagin Ab [Presence] in Serum by RPR [facility] SURESWAB(R) ADVANCED VAGINITIS PLUS, TMA SURESWAB(R) ADVANCED VAGINITIS PLUS, TMA Pathology and Cytology Routine Vaginal discharge Exposure to STD 16 weeks gestation of Second trimester Ordered: 02/15/2025 [facility] Work Phone: Comment on above: Ordered: 02/15/2025 [facility] Immunizations Immunization Date Immunization Notes Care Provider Fa cility 06-23-2019 tetanus toxoid, redu christen diphtheria toxoid, and acellular pertussis vaccine, adsorbed MD Marianela Oliva Work Phone: [facility] Payers Date Payer Category Payer Unknown [id number] 2024 Self-pay [id number] 2018 Unknown [id number] 2018 Private Health Insurance 2014 Unknown [id number] 1989 Unknown [id number] 2.16.84 0.1.376969.3.579.2.727 1989 Unknown [id number] 2.16.8 40.1.019589.3.579.2.173 1989 Unknown [id number] 2.16.8 40.1.608752.3.579.2.173 1989 Unknown [id number] 2.16.8 40.1.168548.3.579.2.173 1989 Unknown [id number] 2.16.8 40.1.963617.3.579.2.173 1989 Unknown [id number] 2.16.8 40.1.419037.3.579.2.173 1989 Unknown [id number] 2.16.8 40.1.938645.3.579.2.173 1989 Unknown [id number] 2.16.8 40.1.510905.3.579.2.173 1989 Unknown [id number] 2.16.8 40.1.462996.3.579.2.173 1989 Unknown [id number] 2.16.8 40.1.996152.3.579.2.9 1989 Unknown [id number] 2.16.8 40.1.569901.3.579.2.9 1989 Unknown [id number] 2.16.8 40.1.757579.3.579.2.1258 1989 Unknown [id number] 2.16.8 40.1.491828.3.579.2.1258 1989 Unknown [id number] 2.16.8 40.1.920751.3.579.2.1258 1989 Unknown [id number] 2.16.8 40.1.819137.3.579.2.9 1989 Unknown [id number] 2.16.8 40.1.986941.3.579.2.1258 1989 Unknown [id number] 2.16.84 0.1.808310.3.579.2.9 1989 Unknown [id number] 2.16.84 0.1.623669.3.579.2.1258 1989 Unknown [id number] 2.16.84 0.1.843530.3.579.2.1258 1989 Unknown [id number] 2.16.84 0.1.079045.3.579.2.1258 1989 Unknown [id number] 2.16.84 0.1.436896.3.579.2.1258 1989 Unknown [id number] 2.16.84 0.1.511283.3.579.2.1259 1959 Private Health Insurance [facility] [id number] Unknown [id number] 2.16.8 40.1.119270.3.579.2.531 Unknown [id number] 2.16.8 40.1.223788.3.579.2.531 Unknown [id number] 2.16.8 40.1.643765.3.579.2.531 Unknown [id number] 2.16.8 40.1.380553.3.579.2.531 Unknown [id number] 2.16.8 40.1.518041.3.579.2.531 Unknown [id number] 2.16.8 40.1.662584.3.579.2.531 Unknown [id number] 2.16.8 40.1.356317.3.579.2.531 Unknown [id number] 2.16.8 40.1.481786.3.579.2.531 Social History Date Type Detail Facility Unknown if ever smoked [facility] Other Start: 01-27-2024 End: 12-21-2024 Sex Assigned At [facility] Other Start: 06-22-2019 End: 01-26-2024 Tobacco smoking status NHIS Never smoked tobacco (finding) [facility] Start: 1990 Sex Assigned At Female [facility] Start: 01-26-2024 Tobacco use and exposure Smokeless tobacco non-user [facility] Start: 01-27-2024 End: 06-21-2025 Alcoholic beverage intake Current drinker of alcohol (finding) [facility] Start: 01-27-2024 End: 12-21-2024 History of Social function [facility] Start: 01-27-2024 Gender identity Identifies as female gender (finding) [facility] Start: 01-27-2024 Sexual orientation Heterosexual (finding) [facility] Start: 11-04-2024 [facility] Start: 12-06-2024 End: 03-15-2025 Sex Female (finding) [facility] Medical Equipment Procedure Code Equipment Code Equipment Origin al Text Equipment Identifier Dates 1 strip by In Vi tro route Daily Use in the morning prior to breakfast, 1 hour after each meal for a total of 4times daily. [id number] Start: 02-15-2025 End: 03-17-2025 1 each by In Vit ro route Daily Use to check FSBS four times daily [id number] Start: 02-15-2025 End: 03-17-2025 Use as instructed [id number] Start: 04-09-2025 End: 04-09-2026 1 each by In Vit ro route Daily [id number] Start: 04-09-2025 End: 05-09-2025 Clinical Notes 12-16-2021 to 06-21-2025 Eugeniapatrick Bridges, [employer] SOFTWARE DEVELOPER - 06/21/2025 9:40 AM EDMegan Bridges, [employer] SOFTWARE DEVELOPER - 06/07/2025 9:50 AM Niki Mckeon, [employer] SOFTWARE DEVELOPER - 05/22/2025 11:00 AM EDMegan Tiffanieramakrishnar, [employer] SOFTWARE DEVELOPER - 05/10/2025 8:40 AM EDT Note Date [...] nursing note reviewed. Exam conducted with a director web present. Vitals: Estimated body mass index is 35.12 kg/m as calculated from the following: Height as of 12/15/22: 5' 8 . Weight as of this encounter: 231 lb. BP: 124/72 Patient's last menstrual period was 10/21/2024. ASSESSMENT & PLAN ICD-10-CM 1. Third trimester ([facility]) Z34.93 POCT urinalysis dipstick manually resulted 2. 34 weeks gestation of ([facility]) Z3A.34 3. Multigravida of advanced maternal age in third trimester ([facility]) O09.523 Patient presents today for a routine [...] Yasmani Abdullahi DO documented in this encounter [facility] 06-07-2025 History of Presen t illness [...] nursing note reviewed. Exam conducted with a director web present. Vitals: Estimated body mass index is 35.14 kg/m as calculated from the following: Height as of 12/15/22: 5' 8 . Weight as of this encounter: 231 lb 1.9 oz. BP: 112/70 Patient's last menstrual period was 10/21/2024. ASSESSMENT & PLAN ICD-10-CM 1. Third trimester ([facility]) Z34.93 POCT urinalysis dipstick manually resulted 2. 32 weeks gestation of ([facility]) Z3A.32 POCT urinalysis dipstick manually resulted 3. Multigravida of advanced maternal age in third trimester ([facility]) O09.523 US biophysical profile w non stress test Patient presents today for a routine obstetrics appointment. Patient is currently 32w5d with a Estimated Date of Delivery: 07/28/25. Patient given orders for NST/BPP's to be started until delivery. Orders will also be sent to [facility] Scheduling and [facility]. Patient to return to clinic in 2 weeks. Documented by Eugenia Bridges LPN on behalf of: Yasmani Abdullahi DO documented in this encounter [facility] 05-22-2025 History of Presen t illness [...] Past Medical History: Diagnosis Date Anxiety Melanoma ([facility]) 2021 HISTORY PAST MEDICAL HISTORY SOCIAL HISTORY Past Medical History: Diagnosis Date Anxiety Melanoma ([facility]) 2021 on chest Social History Tobacco Use [...] nursing note reviewed. Exam conducted with a director web present. Vitals: Estimated body mass index is 34.64 kg/m as calculated from the following: Height as of 12/15/22: 5' 8 . Weight as of this encounter: 227 lb 12.8 oz. BP: 110/72 Patient's last menstrual period was 10/21/2024. ASSESSMENT & PLAN ICD-10-CM 1. 30 weeks gestation of ([facility]) Z3A.30 POCT urinalysis dipstick manually resulted 2. Third trimester ([facility]) Z34.93 POCT urinalysis dipstick manually resulted 3. Antepartum multigravida of advanced maternal age ([facility]) O09.529 POCT urinalysis dipstick manually resulted 4. Gestational diabetes mellitus (GDM), antepartum, gestational diabetes method of control unspecified ([facility]) O24.419 POCT urinalysis dipstick manually resulted Return [...] Yasmani Abdullahi DO documented in this encounter [facility] 05-10-2025 History of Presen t illness [...] Past Medical History: Diagnosis Date Anxiety Melanoma ([facility]) 2021 HISTORY PAST MEDICAL HISTORY SOCIAL HISTORY Past Medical History: Diagnosis Date Anxiety Melanoma ([facility]) 2021 on chest Social History Tobacco Use [...] nursing note reviewed. Exam conducted with a director web present. Vitals: Estimated body mass index is 34.25 kg/m as calculated from the following: Height as of 12/15/22: 5' 8 . Weight as of this encounter: 225 lb 4 oz. BP: 124/78 Patient's last menstrual period was 10/21/2024. ASSESSMENT & PLAN ICD-10-CM 1. size consistent with dates, antepartum ([facility]) Z34.90 US OB follow up transabdominal approach 2. Third trimester ([facility]) Z34.93 POCT urinalysis dipstick manually resulted 3. 28 weeks gestation of ([facility]) Z3A.28 Patient presents today for a routine obstetrics appointment. Patient is currently 28w5d with a Estimated Date of Delivery: 07/28/25. Patient to return to clinic in 2 weeks for return OB and Growth US. Patient is going to [facility] after this appointment to receive her Rhogam injection. Patient will call office with any concerns or questions in the meantime. Documented by Eugenia Bridges LPN on behalf of: Yasmani Abdullahi DO documented in this encounter [facility] 04-10-2025 History of Presen t illness [...] nursing note reviewed. Exam conducted with a director web present. Vitals: Estimated body mass index is 33.88 kg/m as calculated from the following: Height as of 12/15/22: 5' 8 . Weight as of this encounter: 222 lb 12.8 oz. BP: 108/68 Patient's last menstrual period was 10/21/2024. ASSESSMENT & PLAN ICD-10-CM 1. Second trimester ([facility]) Z34.92 POCT urinalysis dipstick manually resulted 2. 24 weeks gestation of ([facility]) Z3A.24 POCT urinalysis dipstick manually resulted 3. [...] Yasmani Abdullahi DO documented in this encounter [facility] 03-15-2025 History of Presen t illness [...] nursing note reviewed. Exam conducted with a director web present. Vitals: Estimated body mass index is [...] CBC drawn yesterday. Patient was provided with global marketing manager email to send FSBS results & more forms we given to patient to track sugars. Patient to RTC in 4 weeks for routine OB care. Documented by Eugenia Bridges LPN on behalf of: Yasmani Abdullahi DO documented in this encounter [facility] 02-15-2025 History of Presen t illness [...] nursing note reviewed. Exam conducted with a director web present. Vitals: Estimated body mass index is [...] Yasmani Abdullahi DO documented in this encounter [facility] 01-18-2025 History of Presen t illness [...] Medical History: Diagnosis Date Anxiety Melanoma (CMS/HCC) 2022 HISTORY PAST MEDICAL HISTORY SOCIAL HISTORY Past [...] nursing note reviewed. Exam conducted with a director web present. Vitals: Estimated body mass index is [...] or undercooked meat, and stay away from [facility]. Patient has been consulted regarding any [...] to AMA. 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 She called with complaints of kidney pain and left abd pain. Per nurse patient advised to be evaluated at Hospital. [facility]. She also had questions about Zoloft during . Pt transferred to nurse to discuss. [facility] 12-05-2024 Miscellaneous Notes Formattin g of this note might be different from the original. 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 She called with complaints of kidney pain and left abd pain. Per nurse patient advised to be evaluated at Hospital. [facility]. She also had questions about Zoloft during . Pt transferred to nurse to discuss. documented in this encounter [facility] 02-04-2023 Evaluation note Encounter Date Diagnosis Assessment Notes Jan, Family history of BRCA gene mutation (ICD-10 - Z84.81) Discussed family history. Pt would like to be checked. She has weighed the risks and benefits and states she would be interested in a B mastectomy if indicated. After calling [facility], the decision was to fax lab order to [facility]. Order handwritten. Jan, Family history of breast cancer (ICD-10 - Z80.3) Mamm ordered. Jan, Screening mammogram for breast cancer (ICD-10 - Z12.31) [facility] 10-21-2022 Evaluation note* Encounter Date Diagnosis Assessment Notes Treatment Notes Treatment Clinical Notes Jul, Strep pharyngitis (ICD-10 - J02.0) [facility] 03-23-2022 Evaluation note* Encounter Date Diagnosis [...] were not corrected during the review process. [facility] 03-01-2022 History general Narrative - Reported* Type Description Date Medical History post pardom depression Surgical History wisdom teeth Surgical History D&C Surgical History melanoma excision 12/16/21 Hospitalization History child x4 [facility] 03-01-2022 History general Narrative - Reported* Type Description Date Medical History post pardom depression Medical History Anxiety, generalized Surgical History wisdom teeth Surgical History D&C Surgical History melanoma excision 12/16/21 Hospitalization History child x4 Hospitalization History see surgical hx [facility] Other Evaluation noteNo assessment information available [facility] Work Phone: Evaluation noteNo InformationNort [employer] Other Evaluation note* Diagnosis Onset Date Resolution Status Mass of skin of chest acute [facility] Work Phone: Evaluation note* Diagnosis Onset Date Resolution Status Mass of skin of chest acute Right lower lobe pneumonia n [employer] [facility] Work Phone: Evaluation note* Diagnosis First trimester [...] please be sure to follow-up with your DIRECTOR UNDERWRITER SALES and primary care provider. If you develop worsening pain, vaginal bleeding, fevers, other symptoms as we discussed please return the emergency department for reevaluation.[facility] Work Phone: Reason for referral (narrative)No reason for referral information availableUk [facility] Work Phone: Summary Purpose Family History No Family History Records Found 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 Condition Age at Onset Recorded Date/T neno Not Specified No pertinent family history Unknown Advance Directives No Advanced Directives Records Found Advance Directive Response Recorded Date/ Time Advance [...] section and content) DATE CREATED AUTHOR 04/05/2018 [facility] DATE CREATED AUTHOR AUTHOR'S ORGANIZ ATION 06/15/2018 [facility] DATE CREATED AUTHOR AUTHOR'S ORGANIZ ATION 12/15/2018 Ne[facility]u Mora [facility] DATE CREATED AUTHOR AUTHOR'S ORGANIZ ATION [facility]/25/[facility] DATE CREATED AUTHOR AUTHOR'S ORGANIZ ATION 04/03/2025 [facility] DATE CREATED AUTHOR AUTHOR'S ORGANIZ ATION 06/23/2025 [facility] EPIC REASON FOR VISIT (unrecogniz ed section and content) Reason Comments Routine Visit Care Teams (unrecognized sec tion and content) Team Status: Inactive Member Role Status Dates Marianela Oliva MD Primary Care Provider Active Mario Perez DO [facility] Attending Provider Active Team Status: Active [...] 17, 2024 End: May 17, 2024 Mario BALL DO [facility] Attending Provider Active Start: May 17, [...] August 15, 2024 End: August 15, 2024 Executive Team Leader 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 Specialty Start Date End Date Marianela Oliva MD [address] [place] [phone] PCP - General Family Medicine 01/27/24 Team [...] December 27, 2024 End: December 27, 2024 Executive Team Leader 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 Specialty Start Date End Date Marianela Oliva MD [address] [place] [phone] PCP - General Family Medicine 01/27/24 Executive Team Leader 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 Specialty Start Date End Date Marianela Oliva MD [address] [facility] [place] [phone] PCP - General Family Medicine 01/27/24 Executive Team Leader 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 Specialty Start Date End Date Marianela Oliva MD PCP - General Family Medicine 01/27/24 Executive Team Leader 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 Specialty Start Date End Date Marianela Oliva MD PCP - General Family Medicine 01/27/24 Executive Team Leader 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 Specialty Start Date End Date Marianela Oliva MD PCP - General Family Medicine 01/27/24 Executive Team Leader 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 Specialty Start Date End Date Marianela Oliva MD PCP - General Family Medicine 01/27/24 Executive Team Leader 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 Specialty Start Date End Date Marianela [...] March 14, 2025 End: March 14, 2025 Executive Team Leader 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 Specialty Start Date End Date Marianela Oliva MD [address] [facility] [place] [phone] PCP - General Family Medicine 01/27/24 Executive Team Leader 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 Specialty Start Date End Date Marianela Oliva MD [address] [facility] [place] [address] PCP - General Family Medicine 01/27/24 Executive Team Leader 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 Specialty Start Date End Date Marianela Oliva MD [address] [facility] [place] [address] PCP - General Family Medicine 01/27/24 Executive Team Leader 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 Specialty Start Date End Date Marianela Oliva MD [address] [facility] [place] [address] PCP - General Family Medicine 01/27/24 Executive Team Leader 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 Specialty Start Date End Date Marianela Oliva MD [address] [facility] [place] [address] PCP - General Family Medicine 01/27/24 Team Status: Inactive Member Role Status Dates Marianela Oliva MD Primary Care Provider Active Start: April 02, 2025 End: April 02, 2025 Mario Perez [facility] Attending Provider Active Start: April 02, 2025 End: April 02, 2025 Team Status: Inactive Member Role Status Dates Marianela Oliva MD Primary Care Provider Active Start: June 12, 2025 End: June 12, 2025 Marianela Oliva MD Attending Provider Active St art: June 12, 2025 End: June 12, 2025 Executive Team Leader 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 Specialty Start Date End Date Marianela Oliva MD [address] [facility] [place] [address] PCP - General Family Medicine 01/27/24 Executive Team Leader 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 Specialty Start Date End Date Marianela Oliva MD [address] [place] [address] PCP - General Family Medicine 01/27/24 Goals [...] BE BASED ON THE PRIMARY CLINICAL RECORDS. [employer] provides no warranty or guarantee of the accuracy or completeness of information in this document.
[2025-06-27 07:54] VITALS: BP 111/72; PULSE 100
== END 2025-06-27 08:18 | disposition home or self-care (01) ==
LOC: US 07:30 → FBC 07:32
PROVIDERS: Family Provider Family Medicine; PCP Family Medicine; Visit Provider Obstetrics & Gynecology
DX: O26.893 Other specified pregnancy related conditions, third trimester (principal); O09.523 Supervision of elderly multigravida, third trimester; Z3A.35 35 weeks gestation of pregnancy
CPT/HCPCS: 76818

== ENCOUNTER 2025-06-30 07:56 | Outpatient (OUT) | payer OTHER, SELFPAY ==
--- OUTSIDE RECORDS SUMMARY | 2014-02-14 01:42 | XMS_ITS | Encounter Summary ---
Author Organization [facility] Address [address] [place] [address] Care Team Providers Care Ivory Carver Name Role Phone Unavailable Primary Care Provider Unavailabl e Encounter Details Date Type Department Care Team (Late st Contact Info) Description 02/14/2014 1:42 AM EDT Hospital Encounter [facility] [address] [phone] Kalen Sorenson MD [address] [facility] [address] [place] [address] Social History Tobacco Use Types [...] ORDERABLES Final Re sult Performing Organization Address City/[facility]/ZIP Co de Phone Number [facility] [address] [place] [address] * (ABNORMAL) Glucose tolerance, 3 hours (02/14/2014 6:59 AM EDT) Amount Glucose Given 100 g 02/14/2014 7:01 AM EDT [facility] Glucose, Fasting 80 65 - 99 mg/dL 02/14/2014 8:09 AM EDT [facility] Glucose, GTT - 1 Hour 227(H) 65 - 184 mg/dL 02/14/2014 8:59 AM EDT [facility] Glucose, GTT - 2 Hour 227(H) 65 - 139 mg/dL 02/14/2014 11:02 AM EDT [facility] Glucose, GTT - 3 Hour 135(H) 65 - 130 mg/dL 02/14/2014 11:01 AM EDT [facility] Comment: Performed at [address] [place], [place] [id number] ([phone] 02/14/2014 6:59 AM EDT 02/14/2014 7:00 AM EDT us Kalen Sorenson MD CHEMISTRY ORDERABLES Final Re sult Performing Organization Address [facility]/ZIP Co de Phone Number [facility] [address] [place], [place] [address], [facility] [phone] [facility] documented in this encounter Visit Diagnoses Not on filedocumented in this encounter
--- OUTSIDE RECORDS SUMMARY | 2025-06-07 09:50 | XMS_ITS | Encounter Summary ---
Author Organization [facility] Address [address] [place] [address] Care Team Providers Care Renal Technician Name Role Phone Kathy Reynaga MD Primary Care Provider Reason for Visit * Reason Comments Routine Visit Encounter Details Date Type Department Care Team (Latest Contact Info) Description 06/07/2025 9:50 AM EDT Routine [facility] [address] [place] [address] Yasmani Abdullahi DO [address] [place] [address] Third trimester ([facility]); 32 weeks gestation of ([facility]); Multigravida of advanced maternal age in third trimester ([facility]); History of molar ; Gestational diabetes mellitus (GDM), antepartum, gestational diabetes method of control unspecified ([facility]); Antepartum multigravida of advanced maternal age ([facility]) Social History Tobacco Use Types Packs/Day Years [...] Past Medical History: Diagnosis Date Anxiety Melanoma ([facility]) 2021 HISTORY PAST MEDICAL HISTORY SOCIAL HISTORY [...] nursing note reviewed. Exam conducted with a marine rigger present. Vitals: Estimated body mass index is 35.14 kg/m?? as calculated from the following: Height as of 12/15/22: 5' 8 . Weight as of this encounter: 231 lb 1.9 oz. BP: 112/70 Patient's last menstrual period was 10/21/2024. ASSESSMENT & PLAN ICD-10-CM 1. Third trimester ([facility]) Z34.93 POCT urinalysis dipstick manually resulted 2. 32 weeks gestation of ([facility]) Z3A.32 POCT urinalysis dipstick manually resulted 3. Multigravida of advanced maternal age in third trimester ([facility]) O09.523 US biophysical profile w non stress test Patient presents today for a routine obstetrics appointment. Patient is currently 32w5d with a Estimated Date of Delivery: 07/28/25. Patient given orders for NST/BPP's to be started until delivery. Orders will also be sent to [facility] Scheduling and [facility] FBC. Patient to return to clinic in [...] 07/05/2025 9:50 AM EDT Routine [facility] [address] [place], [place] [address] [phone] Yasmani Abdullahi, DO [address] [place], [place] [phone] 07/12/2025 9:10 AM EDT Routine [facility] [address] [facility] [place] [phone] Lanie Mendez, SLEEVE MACHINE TENDER [address] [place] [phone] 08/28/2025 10:10 AM EST Visit [facility] [address] [place], [place] [address] [phone] Yasmani Abdullahi, DO [address] [place], [place] [phone] Scheduled Orders Name Type Priority Associated Diagnoses Orde r Schedule US biophysical profile w non stress test Imaging Routine Multigravida of advanced maternal age in third trimester ([facility]) Expected: 06/07/2025 (Approximate), Expires: 12/08/2025 documented as of this encounter Procedures Procedure Name Priority Date/Time Associated Diagnosis Comments POCT URINALYSIS DIPSTICK Routine 06/07/2025 10:31 AM EDT Third trimester ([facility]) 32 weeks gestation of ([facility]) documented in this encounter Results * US [...] ([facility]) documented in this encounter Care Teams Renal Technician 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 Specialty Start Date End Date Kathy Reynaga MD [address] [place] [phone] PCP - General Family Medicine 01/27/24 documented as of this encounter
--- OUTSIDE RECORDS SUMMARY | 2025-06-21 09:00 | XMS_ITS | Encounter Summary ---
Author Organization [facility] Address [address] [place] [address] Care Team Providers Care Loan Workout Officer Name Role Phone Kathy Reynaga MD Primary Care Provider [phone] Encounter Details Date Type Department Care Team (Latest Contact Info) Description 06/21/2025 9:00 AM EDT Ancillary Procedure [facility] [address] [place] [address] History of molar ; Gestational diabetes mellitus (GDM), antepartum, gestational diabetes method of control unspecified ([facility]); Antepartum multigravida of advanced maternal age ([facility]) Social History Tobacco Use Types Packs/Day Years [...] Routine [facility] [address] [place] [address] Yasmani Abdullahi DO [address] [place] [address] 07/12/2025 9:10 AM EDT Routine [facility] [address] [place] [phone] Lanie Mendez, REPAIR DEPARTMENT MANAGER [address] [facility] [address] [place] [phone] 08/28/2025 10:10 AM EST Visit [facility] [address] [place] [phone] Yasmani Abdullahi DO [address] [facility] [address] [place], [place] [phone] documented as of this encounter Procedures Procedure Name Priority Date/Time Associated Diagnosis Comments US OB FOLLOW UP TRANSABDOMINAL APPROACH Routine 06/21/2025 9:28 AM EDT History of molar Gestational diabetes mellitus (GDM), antepartum, gestational diabetes method of control unspecified ([facility]) Antepartum multigravida of advanced maternal age ([facility]) documented in this encounter Results * US [...] ([facility]) documented in this encounter Care Teams Loan Workout Officer 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 Specialty Start Date End Date Kathy Reynaga MD [address] [place] [address] PCP - General Family Medicine 01/27/24 documented as of this encounter
--- OUTSIDE RECORDS SUMMARY | 2025-06-21 09:40 | XMS_ITS | Encounter Summary ---
Author Organization [facility] Address [address] [place] [address] Care Team Providers Care Cable Lacer Name Role Phone Kathy Reynaga MD Primary Care Provider [phone] Reason for Visit * Reason Comments Routine Visit Encounter Details Date Type Department Care Team (Late st Contact Info) Description 06/21/2025 9:40 AM EDT Routine [facility] [place] [facility] [address] [facility] [place] [phone] Yasmani Abdullahi DO [address] [facility] [address] [place] [address] Third trimester ([facility]); 34 weeks gestation of ([facility]); Multigravida of advanced maternal age in third trimester ([facility]) Social History Tobacco Use Types Packs/Day Years [...] this encounter Progress Notes * Eugenia Bridges, SOIL SCIENCE PROFESSOR - 06/21/2025 9:40 AM EDT Reason for [...] nursing note reviewed. Exam conducted with a head porter present. Vitals: Estimated body mass index is 35.12 kg/m?? as calculated from the following: Height as of 12/15/22: 5' 8 . Weight as of this encounter: 231 lb. BP: 124/72 Patient's last menstrual period was 10/21/2024. ASSESSMENT & PLAN ICD-10-CM 1. Third trimester ([facility]) Z34.93 POCT urinalysis dipstick manually resulted 2. 34 weeks gestation of ([facility]) Z3A.34 3. Multigravida of advanced maternal age in third trimester ([facility]) O09.523 Patient presents today for a routine [...] AM EDT Routine [facility] [address] [place] [address] Yasmani Abdullahi DO [address] [place], [place] [phone] 07/12/2025 9:10 AM EDT Routine [facility] [address] [facility] [place] [phone] Lanie Mendez, CLINICAL INSTRUCTOR [address] [facility] [place] [phone] 08/28/2025 10:10 AM EST Visit [facility] [address] [facility] [place] [address] Yasmani Abdullahi DO [address] [facility] [address] [place], [place] [phone] documented as of this encounter Procedures Procedure Name Priority Date/Time Associated Diagnosis Comments POCT URINALYSIS DIPSTICK Routine 06/21/2025 9:55 AM EDT Third trimester ([facility]) documented in this encounter Results * (ABNORMAL) [...] ([facility]) documented in this encounter Care Teams Cable Lacer 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 Specialty Start Date End Date Kathy Reynaga MD [address] [place] [address] PCP - General Family Medicine 01/27/24 documented as of this encounter
--- OUTSIDE RECORDS SUMMARY | 2025-06-30 07:58 | XMS_ITS | Encounter Summary ---
Author Organization [facility] Address [address] [place] [address] Care Team Providers Care Dental Director Name Role Phone Kathy Reynaga MD Primary Care Provider [phone] Encounter Details Date Type Department Care Team (Late st Contact Info) Description 12/25/2024 Abstract [facility] [address] [place] [phone] Yasmani Abdullahi DO [facility] [address] [place], [place] [phone] Social History Tobacco Use Types Packs/Day Years [...] 07/05/2025 9:50 AM EDT Routine [facility] [address] [place] [phone] Yasmani Abdullahi DO [address] [place], [place] [phone] 07/12/2025 9:10 AM EDT Routine [facility] [address] [place] [address] [place] [phone] Lanie Mendez, CLOUD CONSULTANT [address] [facility] [place] [phone] 08/28/2025 10:10 AM EST Visit [facility] [address] [facility] [address] Yasmani Abdullahi DO [address] [facility] [address] [place], [place] [phone] documented as of this encounter Visit Diagnoses Not on filedocumented in this encounter Care Teams Dental Director 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 Specialty Start Date End Date Kathy Reynaga MD [address] [facility] [place] [phone] PCP - General Family Medicine 01/27/24 documented as of this encounter
--- OUTSIDE RECORDS SUMMARY | 2025-06-30 07:58 | XMS_ITS | Encounter Summary ---
Author Organization [facility] Address [address] [place] [address] Care Team Providers Care Digital Marketer Name Role Phone Kathy Reynaga MD Primary Care Provider [phone] Encounter Details Date Type Department Care Team (Late st Contact Info) Description 12/27/2024 Abstract [facility] [address] [place] [address] Yasmani Abdullahi DO [facility] [address] [place], [place] [phone] Social History Tobacco Use Types Packs/Day Years [...] EDT Routine [facility] [address] [place] [phone] Yasmani Abdullahi DO [address] [place], [place] [phone] 07/12/2025 9:10 AM EDT Routine [facility] [address] [place] [address] [place] [phone] Lanie Mendez, POOL NURSE [address] [facility] [place] [phone] 08/28/2025 10:10 AM EST Visit [facility] [address] [facility] [place] [address] Yasmani Abdullahi DO [address] [facility] [address] [place] [place], [place] [phone] documented as of this encounter Visit Diagnoses Not on filedocumented in this encounter Care Teams Digital Marketer 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 Specialty Start Date End Date Kathy Reynaga MD [address] [facility] [place] [phone] PCP - General Family Medicine 01/27/24 documented as of this encounter
--- OUTSIDE RECORDS SUMMARY | 2025-06-30 07:58 | XMS_ITS | Encounter Summary ---
Author Organization [facility] Address [address] [place] [address] Care Team Providers Care Heater Engineer Helper Name Role Phone Kathy Reynaga MD Primary Care Provider Encounter Details Date Type Department Care Team (Late st Contact Info) Description 06/22/2025 Clinisync Result Encounter [facility] External Department Unsolicited Yasmani Abdullahi, DO [address] [place] [address] Social History Tobacco Use Types Packs/Day Years [...] AM EDT Routine [facility] [address] [place] [address] Yasmani Abdullahi DO [address] [place] [address] 07/12/2025 9:10 AM EDT Routine [facility] [address] [facility] [place] [address] Lanie Mendez, SAMUEL [address] [facility] [place] [address] 08/28/2025 10:10 AM EST Visit [facility] [address] [place] [address] Yasmani Abdullahi DO [address] [facility] [place] [address] documented as of this encounter Procedures Procedure Name Priority Date/Time Associated Diagnosis Comments US OB BPP W NON-STRESS 06/22/2025 9:47 PM EDT documented in this encounter Results * US OB BPP W NON-STRESS (06/22/2025 9:47 PM EDT) Anatomical Region Laterality Modality Other 06/22/2025 9:4 7 PM EDT Narrative 06/22/2025 9:50 [place] [address] Ultrasound Report Signed Patient: TREVA GOETZ MR#: [id number] : 1990 Acct:[id number] Age/Sex: 35 / F ADM Date: 06/22/25 Loc: US Attending Dr: Yasmani Abdullahi D.O. Ordering Physician: Yasmani Abdullahi D.O. Date of Service: 06/22/25 Procedure(s): US OB BPP w non-stress Accession Number(s): [id number] cc: Kathy Reynaga M.D.; Yasmani Abdullahi D.O. The [address] [address] Patient Name: TREVA GOETZ MRN: [id number] date: 1990 Sex: F Assigned Patient Location: [facility] Current Patient Location: Accession/Order Number: [id number] Exam Date: 06/22/2025 17:18 Report Date: 06/22/2025 [...] Flores M.D. 06/22/2025 9:47 PM Dictation Location: [place] [address] Electronically authenticated by: [id number] Y Date: 06/22/2025 21:47 Dictated By: Alfonzo Flores D.O. Signed By: 06/22/252149 DD/ 46 TD/TT: Support Analyst: Procedure Note Radiology, Radiologist, MD - 06/22/2025 [place] [address] Ultrasound Report Signed Patient: TREVA GOETZ EMR#: [id number] : 1990Acct:[id number] Age/Sex: 35 / FADM Date: 06/22/25 Loc: US Attending Dr: Yasmani Abdullahi D.O. Ordering Physician: Yasmani Abudllahi D.O. Date of Service: 06/22/25 Procedure(s): US OB BPP w non-stress Accession Number(s): [id number] cc: Kathy Reynaga M.D.; Yasmani Abdullahi D.O. The [address] [address] Patient Name: TREVA GOETZ MRN: [id number] date: 1990 Sex: F Assigned Patient Location: [facility] Current Patient Location: Accession/Order Number: [id number] Exam Date: 06/22/2025 17:18 Report Date: 06/22/2025 21:47 At the request of: YASMANI ABDULLAHI DO Procedure: US OB BPP w non-stress Ultrasound biophysical profile HISTORY: Multigravida. Advanced maternal age. Adequate breathing movement, gross body movement, tone and amniotic fluid volume for total score of 8 out of 8. The amniotic fluidindex is 15.2cm within normal limits. The heart rate 150 bpm. US/US OB BPP w non-stress IMPRESSION: Adequate ultrasound biophysical profile Impression dictated by: Alfonzo Flores M.D. 06/22/2025 9:47 PM Dictation Location: [facility] Electronically authenticated by: [id number] Y Date: 1:47 Dictated By: Alfonzo Flores D.O. Signed By:06/22/252149 DD/ 46 TD/TT: Support Analyst: us Yasmani Abdullahi DO [facility] Final Result documented in this encounter Visit Diagnoses Not on filedocumented in this encounter Care Teams Heater Engineer Helper 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 Specialty Start Date End Date Kathy Reynaga MD [address] [place] [address] PCP - General Family Medicine 01/27/24 documented as of this encounter
--- OUTSIDE RECORDS SUMMARY | 2025-06-30 07:58 | XMS_ITS | Encounter Summary ---
Author Organization [facility] Address [address] [place] [address] Care Team Providers Care Data Security Administrator Name Role Phone Kathy Reynaga MD Primary Care Provider [phone] Encounter Details Date Type Department Care Team (Late st Contact Info) Description 12/28/2024 Abstract [facility] [address] [place] [phone] Yasmani Abdullahi DO [facility] [place], [place] [phone] Social History Tobacco Use Types Packs/Day Years [...] EDT Routine [facility] [address] [place] [address] Yasmani Abdullahi DO [address] [place], [place] [phone] 07/12/2025 9:10 AM EDT Routine [facility] [address] [place] [address] [place] [address] Lanie Mendez, FIRE DISPATCHER [address] [facility] [place] [address] 08/28/2025 10:10 AM EST Visit [facility] 102 [facility] [address] Yasmani Abdullahi DO [address] [facility] [address] [place], [place] [phone] documented as of this encounter Visit Diagnoses Not on filedocumented in this encounter Care Teams Data Security Administrator 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 Specialty Start Date End Date Kathy Reynaga MD [address] [facility] [place] [address] PCP - General Family Medicine 01/27/24 documented as of this encounter
--- OUTSIDE RECORDS SUMMARY | 2025-06-30 07:58 | XMS_ITS | Encounter Summary ---
Author Organization [facility] Address [address] [place] [address] Care Team Providers Care Consulting Solution Manager Name Role Phone Kathy Reynaga MD Primary Care Provider Encounter Details Date Type Department Care Team (Late st Contact Info) Description 06/27/2025 Clinisync Result Encounter [facility] External Department Unsolicited Yasmani Abdullahi, DO [address] [place] [address] Social History Tobacco Use Types Packs/Day Years [...] Routine [facility] [address] [place] [address] Yasmani Abdullahi DO [address] [place] [address] 07/12/2025 9:10 AM EDT Routine [facility] [address] [facility] [place] [address] Lanie Mendez, SAMUEL [address] [facility] [place] [address] 08/28/2025 10:10 AM EST Visit [facility] [address] [place] [address] Yasmani Abdullahi DO [address] [facility] [place] [address] documented as of this encounter Procedures Procedure Name Priority Date/Time Associated Diagnosis Comments US OB BPP W NON-STRESS 06/27/2025 8:36 AM EDT documented in this encounter Results * US OB BPP W NON-STRESS (06/27/2025 8:36 AM EDT) Anatomical Region Laterality Modality Other 06/27/2025 8:3 6 AM EDT Narrative 06/27/2025 8:39 [place] [address] Ultrasound Report Signed Patient: TREVA GOETZ MR#: [id number] : 1990 Acct:[id number] Age/Sex: 35 / F ADM Date: 06/27/25 Loc: US Attending Dr: Yasmani Abdullahi D.O. Ordering Physician: Yasmani Abdullahi D.O. Date of Service: 06/27/25 Procedure(s): US OB BPP w non-stress Accession Number(s): [id number] cc: Kathy Reynaga M.D.; Yasmani Abdullahi D.O. The [address] [address] Patient Name: TREVA GOETZ MRN: [id number] date: 1990 Sex: F Assigned Patient Location: Current Patient Location: Accession/Order Number: [id number] Exam Date: 06/27/2025 07:35 Report Date: 06/27/2025 08:36 At the request of: YASMANI ABDULLAHI DO Procedure: US OB BPP w non-stress BIOPHYSICAL PROFILE: CLINICAL INFORMATION: Multigravida of advanced maternal age COMPARISON: 06/22/2025 There is a single live intrauterine gestation in cephalic presentation. The reported gestational age is 35 weeks 4 days The heart rate beats per minute. FINDINGS: TONE: 1 or more episodes of activity extension and flexion of extremity or opening and closing of the hand [Y] 2/2 GROSS BODY MOVEMENTS: 3 or more discrete body or limb movements [Y] 2/2 BREATHING MOVEMENTS: 1 or more episodes of breathing lasting at least 30 seconds [Y] 2/2 GRAYSON: A single deepest vertical pocket of amniotic fluid greater than 2 cm [Y] 2/2 GRAYSON: 17.0 cm . This is in upper normal range. Total score: 8/8 US/US OB BPP w non-stress IMPRESSION: NORMAL BIOPHYSICAL PROFILE Impression dictated by: Annel Barnhart M.D. 06/27/2025 8:36 AM Dictation Location: [place] [address] Electronically authenticated by: [id number] Y Date: 06/27/2025 08:36 Dictated By: Annel Barnhart M.D. Signed By: 06/27/2539 DD/ 5 TD/TT: Spectrograph Operator: Procedure Note Radiology, Radiologist, - 06/27/2025 [place] [address] Ultrasound Report Signed Patient: TREVA GOETZ EMR#: [id number] : 1990Acct:[id number] Age/Sex: 35 / FADM Date: 06/27/25 Loc: US Attending Dr: Yasmani Abdullahi D.O. Ordering Physician: Yasmani Abdullahi D.O. Date of Service: 06/27/25 Procedure(s): US OB BPP w non-stress Accession Number(s): [id number] cc: Kathy Reynaga M.D.; Yasmani Abdullahi D.O. The [place] [address] Patient Name: TREVA GOETZ MRN: [id number] date: 1990 Sex: F Assigned Patient Location: US Current Patient Location: Accession/Order Number: [id number] Exam Date: 06/27/2025 07:35 Report Date: 06/27/2025 08:36 At the request of: YASMANI ABDULLAHI DO Procedure: US OB BPP w non-stress BIOPHYSICAL PROFILE: CLINICAL INFORMATION: Multigravida of advanced maternal age COMPARISON: 06/22/2025 There is a single live intrauterine gestation in cephalic presentation.The reported gestational age is 35 weeks 4 days The heart [id number] beats per minute. FINDINGS: TONE: 1 or more episodes of activity extension and flexion of extremity or opening and closing of the hand [Y] 2/2 GROSS BODY MOVEMENTS: 3 or more discrete body or limb movements [Y] 2/2 BREATHING MOVEMENTS: 1 or more episodes of breathing lastingat least 30 seconds [Y] 2/2 GRAYSON: A single deepest vertical pocket of amniotic fluid greater than 2 cm [Y] 2/2 GRAYSON: 17.0 cm . This is in upper normal range. Total score: 8/8 US/US OB BPP w non-stress IMPRESSION: NORMAL BIOPHYSICAL PROFILE Impression dictated by: Annel Barnhart M.D. 06/27/2025 8:36 AM Dictation Location: [place] [address] Electronically authenticated by: [id number] Y Date: 508:36 Dictated By: Annel Barnhart M.D. Signed By:06/27/25838 DD/ 5 TD/TT: Spectrograph Operator: Yasmani Abdullahi DO [facility] Final Result documented in this encounter Visit Diagnoses Not on filedocumented in this encounter Care Teams Consulting Solution Manager 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 Specialty Start Date End Date Kathy Reynaga MD [address] PCP - General Family Medicine 01/27/24 documented as of this encounter
--- OUTSIDE RECORDS SUMMARY | 2025-06-30 07:59 | XMS_ITS | Encounter Summary ---
Author Organization [facility] Address [address] [place] [address] Care Team Providers Care Repair Specialist Name Role Phone Kathy Reynaga MD Primary Care Provider [phone] Encounter Details Date Type Department Care Team (Late st Contact Info) Description 03/01/2025 Abstract [facility] [address] [facility] [place] [address] Tamiko Montana MA Social History Tobacco Use Types Packs/Day Years [...] 9:50 AM EDT Routine [facility] [address] [place] [address] Yasmani Abdullahi DO [address] [place] [address] 07/12/2025 9:10 AM EDT Routine [facility] [address] [facility] [place] [address] Lanie Mendez, BARREL TESTER [address] [facility] [place] [address] 08/28/2025 10:10 AM EST Visit [facility] [address] [facility] [place] [address] Yasmani Abdullahi DO [address] [facility] [place] [address] documented as of this encounter Visit Diagnoses Not on filedocumented in this encounter Care Teams Repair Specialist 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 Specialty Start Date End Date Kathy Reynaga MD [address] [facility] [place] [place] [address] PCP - General Family Medicine 01/27/24 documented as of this encounter
--- OUTSIDE RECORDS SUMMARY | 2025-06-30 07:59 | XMS_ITS | Encounter Summary ---
Author Organization [facility] Address [address] [place] [address] Care Team Providers Care Coffee Shop Manager Name Role Phone Kathy Reynaga MD Primary Care Provider [phone] Encounter Details Date Type Department Care Team (Late st Contact Info) Description 03/29/2025 Abstract [facility] [address] [place] [address] Yasmani Abdullahi DO [facility] [place], [place] [address] Social History Tobacco Use Types Packs/Day Years [...] EDT Routine [facility] [address] [place] [address] Yasmani Abdullahi DO [address] [place], [place] [address] 07/12/2025 9:10 AM EDT Routine [facility] [address] [place] [address] [place] [address] Lanie Mendez, SPECIAL LIBRARIAN [address] [facility] [place] [address] 08/28/2025 10:10 AM EST Visit [facility] [address] [facility] [address] Yasmani Abdullahi DO [address] [facility] [address] [place], [place] [address] documented as of this encounter Visit Diagnoses Not on filedocumented in this encounter Care Teams Coffee Shop Manager 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 Specialty Start Date End Date Kathy Reynaga MD [address] [facility] [place] [address] PCP - General Family Medicine 01/27/24 documented as of this encounter
--- OUTSIDE RECORDS SUMMARY | 2025-06-30 07:59 | XMS_ITS | Encounter Summary ---
Author Organization [facility] Address [address] [facility], [address] [place] [address] Care Team Providers Care Cutter Operator Helper Name Role Phone Kathy Reynaga MD Primary Care Provider [phone] Encounter Details Date Type Department Care Team (Late st Contact Info) Description 10/17/2016 FollowUp Telephone Encounter [facility] Labor [facility] Delivery [address] [place] [phone] Anneliese Perkins, RN Social History Tobacco Use Types Packs/Day Years Used Date Smoking Tobacco: Never Smokeless Tobacco: Never Alcohol Use Standard Drinks/Week Comments Yes 0 (1 standard drink = 0.6 oz pur e alcohol) very rarely Comments No Sex and Gender Information Value Date Recorded Sex Assigned at Not on file Legal Sex Female 12:35 PM EST Gender Identity Not on file Sexual Orientation Not on file documented as of this encounter Progress Notes * Anneliese Perkins RN - 10/17/2016 1:12 PM EST Discharge Phone Call Log Patient Name: Treva Goetz OB Care Provider: No admitting provider for patient encounter. Most Recent Discharge Date: 09/30/16 Disposition of baby: (home) Call made 10/17/2016 1:12 PM [] No answer [x] Message left [] Spoke with documented in this encounter Plan of Treatment Not on file documented as of this encounter Visit Diagnoses Not on filedocumented in this encounter Care Teams Cutter Operator Helper 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 Specialty Start Date End Date Kathy Reynaga MD PCP - General 07/15/16 documented as of this encounter
--- OUTSIDE RECORDS SUMMARY | 2025-06-30 07:59 | XMS_ITS | Encounter Summary ---
Author Organization [facility] Address [address] [place] [address] Care Team Providers Care Nematology Teacher Name Role Phone Kathy Reynaga MD Primary Care Provider [phone] Encounter Details Date Type Department Care Team (Late st Contact Info) Description 06/19/2025 Clinisync Result Encounter [facility] External Department Unsolicited Yasmani Abdullahi, DO [address] [place] [address] Social History Tobacco Use Types Packs/Day Years [...] Routine [facility] [address] [place] [address] Yasmani Abdullahi DO [address] [place] [address] 07/12/2025 9:10 AM EDT Routine [facility] [address] [facility] [place] [address] Lanie Mendez, SAMUEL [address] [facility] [place] [address] 08/28/2025 10:10 AM EST Visit [facility] [address] [place] [address] Yasmani Abdullahi DO [address] [facility] [place] [address] documented as of this encounter Procedures Procedure Name Priority Date/Time Associated Diagnosis Comments US OB BPP W NON-STRESS 06/19/2025 12:15 PM EDT documented in this encounter Results * US OB BPP W NON-STRESS (06/19/2025 12:15 PM EDT) Anatomical Region Laterality Modality Other 06/19/2025 12:1 5 PM EDT Narrative 06/19/2025 12:17 [place] [address] Ultrasound Report Signed Patient: TREVA GOETZ MR#: [id number] : 1990 Acct:[id number] Age/Sex: 35 / F ADM Date: 06/19/25 Loc: [facility] 250-[address]: Yasmani Abdullahi D.O. Ordering Physician: Yasmani Abdullahi D.O. Date of Service: 06/19/25 Procedure(s): US OB BPP w non-stress Accession Number(s): [id number] cc: Kathy Reynaga M.D.; Yasmani Abdullahi D.O. The [address] [address] Patient Name: TREVA GOETZ MRN: [id number] date: 1990 Sex: F Assigned Patient Location: Current Patient Location: Accession/Order Number: [id number] Exam Date: 06/19/2025 11:08 Report Date: 06/19/2025 [...] Barnhart M.D. 06/19/2025 12:15 PM Dictation Location: [place] [address] Electronically authenticated by: [id number] Y Date: 06/19/2025 12:15 Dictated By: Annel Barnhart M.D. Signed By: 06/19/25 1217 DD/ 14 TD/TT: Insulation Worker: Procedure Note Radiology, Radiologist, MD - 06/19/2025 [place] [address] Ultrasound Report Signed Patient: TREVA GOETZ EMR#: [id number] : 1990Acct:[id number] Age/Sex: 35 / FADM Date: 06/19/25 Loc: [facility] 250-[address]: Yasmani Abdullahi D.O. Ordering Physician: Yasmani Abdullahi D.O. Date of Service: 06/19/25 Procedure(s): US OB BPP w non-stress Accession Number(s): [id number] cc: Kathy Reynaga M.D.; Yasmani Abdullahi D.O. [address] [address] Patient Name: TREVA GOETZ MRN: [id number] date: 1990 Sex: F Assigned Patient Location: US Current Patient Location: US Accession/Order Number: [id number] Exam Date: 06/19/2025 11:08 Report Date: 06/19/2025 12:15 At the request of: YASMANI ABDULLAHI DO Procedure: US OB BPP w non-stress BIOPHYSICAL PROFILE: CLINICAL INFORMATION: Multigravida of advanced maternal age COMPARISON: None There is a single live intrauterine gestation in cephalic presentation.The reported gestational age is 34 weeks 3 days. The heart ratemeasures 139 beats per minute. FINDINGS: TONE: 1 or more episodes of activity extension and flexion of extremity or opening and closing of the hand [Y] 2/2 GROSS BODY MOVEMENTS: 3 or more discrete body or limb movements [Y] 2/2 BREATHING MOVEMENTS: 1 or more episodes of breathing lastingat least 30 seconds [Y] 0/2 GRAYSON: A single deepest vertical pocket of amniotic fluid greater than 2 cm [Y] 2/2 GRAYSON: 17.7 cm. This is in upper normal range . Total score: 6/8 US/US OB BPP w non-stress IMPRESSION: FAILED BIOPHYSICAL PROFILE WITH NO BREATHING. Impression dictated by: Annel Barnhart M.D. 06/19/2025 12:15 PM Dictation [facility] Electron[facility] authenticated by: [id number] Y Date: 2:15 Dictated By: Annel Barnhart M.D. Signed By:06/19/25 1217 DD/ 14 TD/TT: Insulation Worker: Yasmani Abdullahi DO [facility] Final Result documented in this encounter Visit Diagnoses Not on filedocumented in this encounter Care Teams Nematology Teacher 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 Specialty Start Date End Date Kathy Reynaga MD [address] [place] [address] PCP - General Family Medicine 01/27/24 documented as of this encounter
--- OUTSIDE RECORDS SUMMARY | 2025-06-30 07:59 | XMS_ITS | Encounter Summary ---
Author Organization [facility] Address [address] [place] [address] Care Team Providers Care Rigger Third Name Role Phone Kathy Reynaga MD Primary Care Provider Encounter Details Date Type Department Care Team (Late st Contact Info) Description 03/16/2025 Abstract [facility] [address] [place] [address] Yasmani Abdullahi DO [facility] [place], [place] [id number] Social History Tobacco Use Types Packs/Day Years [...] EDT Routine [facility] [address] [place] [address] Yasmani Abdullahi DO [address] [place], [place] [address] 07/12/2025 9:10 AM EDT Routine [facility] [address] [place] [address] [place] [address] Lanie Mendez, ASSOCIATE ARTISTIC DIRECTOR [address] [facility] [place] [address] 08/28/2025 10:10 AM EST Visit [facility] [address] [facility] [place] [address] Yasmani Abdullahi DO [address] [facility] [address] [place], [place] [address] documented as of this encounter Visit Diagnoses Not on filedocumented in this encounter Care Teams Rigger Third 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 Specialty Start Date End Date Kathy Reynaga MD [address] [facility] [place] [place] [address] PCP - General Family Medicine 01/27/24 documented as of this encounter
--- OUTSIDE RECORDS SUMMARY | 2025-06-30 07:59 | XMS_ITS | Encounter Summary ---
Author Organization [facility] Address [address] [place] [address] Care Team Providers Care Financial Legal Assistant Name Role Phone Kathy Reynaga MD Primary Care Provider [phone] Encounter Details Date Type Department Care Team (Late st Contact Info) Description 03/02/2025 Abstract [facility] [address] [facility] [place] [address] Tamiko Montana MA Social History Tobacco [...] 9:50 AM EDT Routine [facility] [address] [place] [address] Yasmani Abdullahi DO [address] [place] [address] 07/12/2025 9:10 AM EDT Routine [facility] [address] [facility] [place] [address] Lanie Mendez, SODA WORKER [address] [facility] [place] [address] 08/28/2025 10:10 AM EST Visit [facility] [address] [facility] [place] [address] Yasmani Abdullahi DO [address] [facility] [place] [address] documented as of this encounter Visit Diagnoses Not on filedocumented in this encounter Care Teams Financial Legal Assistant 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 Specialty Start Date End Date Kathy Reynaga MD [address] [facility] [place] [place] [address] PCP - General Family Medicine 01/27/24 documented as of this encounter
--- OUTSIDE RECORDS SUMMARY | 2025-06-30 07:59 | XMS_ITS | Encounter Summary ---
Author Organization [facility] Address [address] [place] [address] Care Team Providers Care Optical Model Maker And Tester Name Role Phone Kathy Reynaga MD Primary Care Provider [phone] Encounter Details Date Type Department Care Team (Late st Contact Info) Description 02/23/2025 Orders Only [facility] [address] [place] [address] Tamiko Montana MA Social [...] EDT Routine [facility] [address] [place] [address] Yasmani Abdullahi DO [address] [place] [address] 07/12/2025 9:10 AM EDT Routine [facility] [place] [facility] [address] [facility] [place] [address] Lanie Mendez, CHLORINE CELL TENDER [address] [facility] [place] [address] 08/28/2025 10:10 AM EST Visit [facility] [place] [facility] [address] [facility] [place] [address] Yasmani Abdullahi DO [address] [facility] [place] [address] documented as of this encounter Procedures Procedure Name Priority Date/Time Associated Diagnosis Comments PAP SMEAR Routine 02/15/2025 12:00 AM EDT documented in this encounter Results * Pap Smear (02/15/2025 12:00 AM EDT) Swab Cervical swab / Unknown Yasmani Abdullahi DO LAB CYTOLOGY ORDERABLES Final Re sult EXTERNAL LAB documented in this encounter Visit Diagnoses Not on filedocumented in this encounter Care Teams Optical Model Maker And Tester 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 Specialty Start Date End Date Kathy Reynaga MD [address] [facility] [place] [address] PCP - General Family Medicine 01/27/24 documented as of this encounter
--- OUTSIDE RECORDS SUMMARY | 2025-06-30 07:59 | XMS_ITS | Encounter Summary ---
Author Organization [facility] Address [address] [place] [address] Care Team Providers Care Clerk Of Superior Court Name Role Phone Kathy Reynaga MD Primary Care Provider [phone] Encounter Details Date Type Department Care Team (Late st Contact Info) Description 12/29/2024 Abstract [facility] [address] [place] [phone] Yasmani Abdullahi DO [facility] [place], [place] [id number] Social History Tobacco Use Types Packs/Day Years [...] EDT Routine [facility] [address] [place] [phone] Yasmani Abdullahi DO [address] [place], [place] [id number] 07/12/2025 9:10 AM EDT Routine [facility] [address] [place] [address] [place] [phone] Lanie Mednez, SETTER INDUCTION HEATING EQUIPMENT [address] [facility] [place] [address] 08/28/2025 10:10 AM EST Visit [facility] [address] [facility] [place] [address] Yasmani Abdullahi DO [address] [facility] [address] [place], [place] [id number] documented as of this encounter Visit Diagnoses Not on filedocumented in this encounter Care Teams Clerk Of Superior Court 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 Specialty Start Date End Date Kathy Reynaga MD [address] [facility] [place] [address] PCP - General Family Medicine 01/27/24 documented as of this encounter
--- OUTSIDE RECORDS SUMMARY | 2025-06-30 07:59 | XMS_ITS | Encounter Summary ---
Author Organization [facility] Address [address] [place] [address] Care Team Providers Care Compressor Station Chief Engineer Name Role Phone Kathy Reynaga MD Primary Care Provider [phone] Encounter Details Date Type Department Care Team (Late st Contact Info) Description 05/09/2025 Abstract [facility] [address] [place] [phone] [facility] [place], [place] [phone] Social History Tobacco Use Types Packs/Day Years [...] EDT Routine [facility] [address] [place] [phone] Yasmani Abdullahi DO [address] [place], [place] [phone] 07/12/2025 9:10 AM EDT Routine [facility] [address] [place] [address] [place] [phone] Lanie Mendez, SEALER OPERATOR [address] [facility] [place] [address] 08/28/2025 10:10 AM EST Visit [facility] [address] [facility] [place] [address] Yasmani Abdullahi DO [address] [facility] [address] [place], [place] [phone] documented as of this encounter Visit Diagnoses Not on filedocumented in this encounter Care Teams Compressor Station Chief Engineer 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 Specialty Start Date End Date Kathy Reynaga MD [address] [facility] [place] [address] PCP - General Family Medicine 01/27/24 documented as of this encounter
--- OUTSIDE RECORDS SUMMARY | 2025-06-30 07:59 | XMS_ITS | Encounter Summary ---
Author Organization [facility] Address [address] [facility], [address] [place] [address] Care Team Providers Care Manager Employee Benefits Name Role Phone Kathy Reynaga MD Primary Care Provider [phone] Encounter Details Date Type Department Care Team (Late st Contact Info) Description 04/17/2014 FollowUp Telephone Encounter [facility] Labor and Delivery [address] [phone] Maria Eugenia Thomas RN Social History Tobacco Use Types Packs/Day Years Used Date Smoking Tobacco: Never Alcohol Use Standard Drinks/Week Comments No 0 (1 standard drink = 0.6 oz pur e alcohol) Comments No Sex and Gender Information Value Date Recorded Sex Assigned at Not on file Legal Sex Female 12:35 PM EST Gender Identity Not on file Sexual Orientation Not on file documented as of this encounter Progress Notes * Annel Manriquez RN - 04/22/2014 7:28 PM EDT Discharge Phone Call Log Patient Name: Treva Goetz OB Care Provider: No admitting provider for patient encounter. Most Recent Discharge Date: 04/13/14 Disposition of baby: (home) Call made 04/22/2014 7:28 PM [x] Spoke with patient How are you feeding your baby now? Breast How often is your baby eating? Every 2 to 3 hours How many wet diapers a day At least 6 to 8 wets a day How many dirty diapers a day? At least 3 to 4 a day, was yellow seedy, now green do to antibotics that Mom is on. How is your baby sleeping? 3 hours at a time, even during the night How is your baby's circumcision healing? N/A How is the umbilical cord area healing? Almost off, noticed a droplet of blood Has your baby had an appointment with the objective c developer yet? Yes last Wednesday and 04/17 and 04/19/14 for jaundice, levels good, Weight 04/17 7 # 12 oz, 04/19 7# 15 oz Have you made your baby's two month appointment for vaccines? Will be getting vaccines at Drs office with well appointment How are you and your family adjusting to the new baby? Good How well are you sleeping? No problems Are your eating and drinking well? Yes, lots of water with Do you have plenty of help at home? Yes Are you having any breast discomfort or milk supply issues? Yes had mastitis, Seen Mitzy Alexander CNM in office last 04/19/14, on antibiotics, continues to breastfeed If , how is your incision healing? N/A If vaginal delivery, do you have any stitches on your bottom, and if so how are they healing?) Yes, healing with no problems Have you had a follow-up appointment with your OB provider scheduled Yes for 6 weeks We strive to provide very good care always for our patients. Were you happy with your hospital visit? Yes Was there anything we could have done to improve your stay? follow-up phone call with our manager laundry? No, wonderful. During your stay, did any staff talk with you about whether you would have the help you needed whenyou left the hospital? No Was there anyone in particular you would like to mention who provided care for you? I would be happy to take their names and comments. Anneliese Perkins and Enriqueta Pires were wonderful Do you have any questions about your discharge instructions? No documented in this encounter Plan of Treatment Not on file documented as of this encounter Visit Diagnoses Not on filedocumented in this encounter Care Teams Manager Employee Benefits 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 Specialty Start Date End Date Kathy Reynaga MD PCP - General 07/15/16 documented as of this encounter
--- OUTSIDE RECORDS SUMMARY | 2025-06-30 07:59 | XMS_ITS | Encounter Summary ---
Author Organization [facility] Address [address] [place] [address] Care Team Providers Care Battery Loader Name Role Phone Kathy Reynaga MD Primary Care Provider [phone] Encounter Details Date Type Department Care Team (Late st Contact Info) Description 12/29/2024 Abstract [facility] [address] [place] [phone] Yasmani Abdullahi DO [facility] [place], [place] [phone] Social History Tobacco Use Types Packs/Day Years [...] EDT Routine [facility] [address] [place] [phone] Yasmani Abdullahi DO [address] [place], [place] [phone] 07/12/2025 9:10 AM EDT Routine [facility] [address] [place] [address] [place] [phone] Lanie Mendez, AUTOMOTIVE FLEET SUPERVISOR [address] [facility] [place] [phone] 08/28/2025 10:10 AM EST Visit [facility] [address] [facility] [place] [address] Yasmani Abdullahi DO [address] [facility] [address] [place], [place] [phone] documented as of this encounter Visit Diagnoses Not on filedocumented in this encounter Care Teams Battery Loader 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 Specialty Start Date End Date Kathy Reynaga MD [address] [facility] [place] [address] PCP - General Family Medicine 01/27/24 documented as of this encounter
--- OUTSIDE RECORDS SUMMARY | 2025-06-30 07:59 | XMS_ITS | Clinical Summary ---
Author Organization [facility] Address [address] [place] [address] Care Team Providers Care Cloak Room Attendant Name Role Phone Kathy Reynaga MD Primary Care Provider [phone] Allergies No known active allergies Medications MV-Min-Fe Fum-FA-DHA ( 1 PO) Take by mouth Active acetaminophen (Tylenol) 500 MG tablet Take by mouth Active Alcohol Swabs (Alcohol Prep Pad) 70 % padsIndications: Glucose found in urine on examination Apply 1 Pad topically Daily Use four times daily to check FSBS. 150 each 3 5 Active sertraline (Zoloft) 100 MG tabletIndication s:Anxiety, generalized Take 1 tablet (100 mg) by mouth Daily 30 tablet 11 5 03/15/20 26 Active Blood Glucose Monitoring Suppl (True Metrix Air Glucose Meter) w/Device kitIndications:G estational diabetes mellitus (GDM), antepartum, gestational diabetes method of control unspecified ([facility]) 1 kit in the morning and 1 kit at noon and 1 kit in the evening and 1 kit before bedtime. 1 kit 5 Active glucose blood (True Metrix Blood Glucose Test) test stripIndications :Gestational diabetes mellitus (GDM), antepartum, gestational diabetes method of control unspecified ([facility]HS-HCC) Use as instructed 100 each 12 5 04/09/20 26 Active Encounters Date Type Department Care Team Description 06/27/2025 Clinisync Result Encounter [facility] External [facility] Unsolicited Marbella Abdullahi, 06/22/2025 Clinisync Result Encounter [facility] External Department Unsolicited Marbella Abdullahi, 06/21/2025 9:40 AM EDT [place] [address] Marbella Abdullahi, DO Third trimester ([facility]); 34 weeks gestation of ([facility]); Multigravida of advanced maternal age in third trimester ([facility]) 06/21/2025 9:00 AM EDT Ancillary [place] [address] History of molar ; Gestational diabetes mellitus (GDM), antepartum, gestational diabetes method of control unspecified ([facility]); Antepartum multigravida of advanced maternal age ([facility]) 06/19/2025 Clinisync Result Encounter [facility] External Department Unsolicited Marbella Abdullahi, 06/07/2025 9:50 AM EDT [place] [address] Marbella Abdullahi, Third trimester ([facility]); 32 weeks gestation of ([facility]); Multigravida of advanced maternal age in third trimester ([facility]); History of molar ; Gestational diabetes mellitus (GDM), antepartum, gestational diabetes method of control unspecified ([facility]); Antepartum multigravida of advanced maternal age ([facility]) 06/07/2025 Bamboo [place] [address] Marbella Abdullahi, 05/31/2025 [place] [address] Luz Gonsalez LPN 05/22/2025 11:00 AM EDT [place] [address] Marbella Abdullahi, 30 weeks gestation of ([facility]); Third trimester ([facility]); Antepartum multigravida of advanced maternal age ([facility]); Gestational diabetes mellitus (GDM), antepartum, gestational diabetes method of control unspecified ([facility]) 05/22/2025 10:30 AM EDT Ancillary Procedure [facility] [place] [address] [place] [address] Antepartum multigravida of advanced maternal age ([facility]) 05/10/2025 8:40 AM EDT Routine [facility] [place] [facility] [address] [place] [address] Marbella Abdullahi, size consistent with dates, antepartum ([facility]) (Primary Dx); Third trimester ([facility]); 28 weeks gestation of ([facility]); Antepartum multigravida of advanced maternal age ([facility]) 05/10/2025 Bamboo flowsheet [facility] [place] [facility] [address] [place] [address] Marbella Abdullahi, 05/09/2025 Abstract [facility] [place] [facility] [address] [facility] [place] [address] Marbella Abdullahi, 04/10/2025 10:20 AM EDT Routine [facility] [place] [facility] [address] [place] [address] Marbella Abdullahi, Second trimester ([facility]); 24 weeks gestation of ([facility]); Diabetes mellitus screening 04/10/2025 Bamboo flowsheet [facility] [place] [address] [place] [address] Marbella Abdullahi, 04/09/2025 Telephone [facility] [place] [facility] [address] [place] [address] Cynthia Hunt MA 04/03/2025 Travel from Last 3 Months Family History Relation Name Status Comments Father Alive Mother Alive Social History Tobacco Use Types Packs/Day Years Used Date Smoking Tobacco: Never Smokeless Tobacco: Never Tobacco Cessation:Counseling Given: Not Answered Alcohol Use Standard Drinks/Week Comments Yes 0 [...] Orientation Straight 01/27/2024 7: 56 AM EDT Last Filed Vital Signs Vital Sign Reading Time Taken Comments Blood Pressure 124/72 06/21/2025 9:54 AM EDT Pulse - - Temperature - - Respiratory Rate - - Oxygen Saturation - - Inhaled Oxygen Concentration - - Weight 105 kg (231 lb) 06/21/2025 9:54 AM EDT Height 172.7 cm (5' 8 ) 12/15/2022 12:00 PM EST Body Mass Index 35.12 12/15/2022 12:00 PM EST Plan of Treatment Upcoming Encounters Date Type Department Care Team (Late st Contact Info) Description 07/05/2025 9:50 AM EDT Routine [facility] [address] [place] [address] [place] [address] Marbella Abdullahi DO [address] [place] [address] [place] [address] 07/12/2025 9:10 AM EDT Routine [facility] [address] [place] [address] [place] [address] Lanie Mendez, SAMUEL [address] [facility] [place] [address] 08/28/2025 10:10 AM EST Visit [facility] [address] [place] [address] [place] [address] Kaylen, Marbella, [address] [place] [address] Procedures Procedure Name Priority Date/Time Associated Diagnosis Comments US OB BPP W NON-STRESS 06/27/2025 8:36 AM EDT US OB BPP W NON-STRESS 06/22/2025 9:47 PM EDT POCT URINALYSIS DIPSTICK Routine 06/21/2025 9:55 AM EDT Third trimester ([facility]) US OB FOLLOW UP TRANSABDOMINAL APPROACH Routine 06/21/2025 9:28 AM EDT History of molar Gestational diabetes mellitus (GDM), antepartum, gestational diabetes method of control unspecified ([facility]) Antepartum multigravida of advanced maternal age ([facility]) US OB BPP W NON-STRESS 06/19/2025 12:15 PM EDT POCT URINALYSIS DIPSTICK Routine 06/07/2025 10:31 AM EDT Third trimester ([facility]) 32 weeks gestation of ([facility]) POCT URINALYSIS DIPSTICK Routine 05/22/2025 11:21 AM EDT 30 weeks gestation of ([facility]) Third trimester ([facility]) Antepartum multigravida of advanced maternal age ([facility]) Gestational diabetes mellitus (GDM), antepartum, gestational diabetes method of control unspecified ([facility]) US OB FOLLOW UP TRANSABDOMINAL APPROACH Routine 05/22/2025 10:52 AM EDT Antepartum multigravida of advanced maternal age ([facility]) POCT URINALYSIS DIPSTICK Routine 05/10/2025 8:37 AM EDT Third trimester ([facility]) POCT URINALYSIS DIPSTICK Routine 04/10/2025 10:46 AM EDT Second trimester ([facility]) 24 weeks gestation of ([facility]) from Last 3 Months Results * US OB BPP W NON-STRESS (06/27/2025 8:36 AM EDT) Only the most recent of3 resultswithin the time period is included. Anatomical Region Laterality Modality Other 06/27/2025 8:36 AM EDT Narrative 06/27/2025 8:39 [place] [address] Ultrasound Report Signed Patient: TREVA GOETZ MR#: [id number] : 1990 Acct:[id number] Age/Sex: 35 / F ADM Date: 06/27/25 Loc: US Attending Dr: Marbella Abdullahi D.O. Ordering Physician: Marbella Abdullahi D.O. Date of Service: 06/27/25 Procedure(s): US OB BPP w non-stress Accession Number(s): [id number] cc: Kathy Reynaga M.D.; Marbella Abdullahi D.O. [place] [id number] Patient Name: TREVA GOETZ MRN: [id number] date: 1990 Sex: F Assigned Patient Location: US Current Patient Location: Accession/Order Number: [id number] Exam Date: 06/27/2025 07:35 Report Date: 06/27/2025 08:36 At the request of: MARBELLA ABDULLAHI DO Procedure: US OB BPP w non-stress BIOPHYSICAL PROFILE: CLINICAL INFORMATION: Multigravida of advanced maternal age COMPARISON: 06/22/2025 There is a single live intrauterine gestation in cephalic presentation. The reported gestational age is 35 weeks 4 days The heart rate [id number] beats per minute. FINDINGS: TONE: 1 or [...] is in upper normal range. Total score: 8/ US/US OB BPP w non-stress IMPRESSION: NORMAL BIOPHYSICAL PROFILE Impression dictated by: Annel Barnhart M.D. 06/27/2025 8:36 AM Dictation Location: [place] [address] Electronically authenticated by: [id number] Y Date: 06/27/2025 08:36 Dictated By: Annel Barnhart M.D. Signed By: 06/27/25838 DD/ 5 TD/TT: Supervisory Air Intercept Controller: Procedure Note Radiology, Radiologist, - 06/27/2025 [place] [address] Ultrasound Report Signed Patient: TREVA GOETZ EMR#: [id number] : 1990Acct:[id number] Age/Sex: 35 / FADM Date: 06/27/25 Loc: US Attending Dr: Marbella Abdullahi D.O. Ordering Physician: Marbella Abdullahi D.O. Date of Service: 06/27/25 Procedure(s): US OB BPP w non-stress Accession Number(s): [id number] cc: Kathy Reynaga M.D.; Marbella Abdullahi D.O. [address] [place] [id number] Patient Name: TREVA GOETZ MRN: [id number] date: 1990 Sex: F Assigned Patient Location: US Current Patient Location: Accession/Order Number: [id number] Exam Date: 06/27/2025 07:35 Report Date: 06/27/2025 08:36 At the request of: MARBELLA ABDULLAHI DO Procedure: US OB BPP w non-stress BIOPHYSICAL PROFILE: CLINICAL INFORMATION: Multigravida of advanced maternal age COMPARISON: 06/22/2025 There is a single live intrauterine gestation in cephalic presentation.The reported gestational age is 35 weeks 4 days The heart hppoehvzihxo850 beats per minute. FINDINGS: TONE: 1 or [...] is in upper normal range. Total score: 05/25 US/US OB BPP w non-stress IMPRESSION: NORMAL BIOPHYSICAL PROFILE Impression dictated by: Annel Barnhart M.D. 06/27/2025 8:36 AM Dictation Location: [place] [address] Electronically authenticated by: [id number] Y Date: 508:36 Dictated By: Annel Barnhart M.D. Signed By:06/27/2539 DD/ TD/TT: Supervisory Air Intercept Controller: us Marbella Kaylen DO [facility] Final Result * (ABNORMAL) POCT urinalysis dipstick manually resulted (06/21/2025 9:55 AM EDT) Only the most recent of5 resultswithin the time period is included. Color, UA Yellow Clarity, UA Clear Glucose, UA Negative Negative - 1999(110) ++++ mg/dL Bilirubin, UA Negative Negative - (70) +++ mg/dL Ketones, UA Positive Negative - 160(16) ++++ mg/dL Spec Grav, UA 1.015 1 - 1.03 Blood, UA Negative Negative - 50 Tavon/mcL pH, UA 7.0 5 - 9 Protein, UA Negative Negative - 1999(20) ++++ mg/dL Urobilinogen, UA 1.0 0.2 - 12 mg/dL Leukocytes, UA 1+ Negative - 500+++ Bertha/mcL Nitrite, UA Negative Negative - Positive Urine 06/21/2025 9:55 AM EDT us Marbella Abdullahi DO POINT OF CARE TEST ENTER/EDIT OR DERABLES Final Result * US OB follow up transabdominal approach (06/21/2025 9:28 AM EDT) Only the most recent of2 resultswithin the time period is included. Anatomical Region Laterality Modality Body Ultrasound 06/21/2025 [...] ELECTRONICALLY SIGNED BY: Minh Reddy MD us Marbella Kaylen DO IMG OB US PROCEDURES Final Resul t from Last 3 Months Insurance [employer] Care Teams Cloak Room Attendant 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 Specialty Start Date End Date Kathy Reynaga MD [address] [facility] [place] [address] PCP - General Family Medicine 01/27/24
--- OUTSIDE RECORDS SUMMARY | 2025-06-30 07:59 | XMS_ITS | Clinical Summary ---
Author Organization [facility] Address [address] [facility] [address] [facility], [address] [place] [address] Care Team Providers Care Bobbin Dumper Name Role Phone Kathy Reynaga MD Primary Care Provider [phone] Allergies No known active allergies Medications MV-Min-Fe Fum-FA-DHA ( 1 PO) Take by mouth Active amoxicillin (AMOXIL) 875 MG tablet Take 875 mg by mouth 2 times daily Active Active Problems Patient Care Coordination No te Formatting of this note migh t be different from the original. [facility]es[facility] form = NA testing = Patient declines genetic testing Ped = RH factor = Rhogam? = Flu shot = TDAP (27-36 wks)= GBS = Card - Problem Noted Date Diagnosed Date Anxiety Resolved Problems Problem Noted Date Diagnosed Date Resolved Date GDM, class A1 03/24/2016 11/11/2016 Normal delivery at term 04/12/201402/16 GDM (gestational diabetes mellitus) 02/14/2014 02/13/2016 Meconium in amniotic fluid a ffecting management of mother, delivered 03/08/20 18 Molar 03/09/2018 Immunizations Immunization Administration Dates Next Due Rho (D) Immune Globulin 04/12/2014,01/31/2014 TDaP, ADACEL (age 10y-64y), BOOSTRIX (age 10y+), IM, 0.5mL 09/30/2016,04/13/2014 Family History Medical History Relation Name Comments No Known Problems Brother No Known Problems Father Breast Cancer Maternal Aunt Great Heart Disease Maternal Grandfather High Cholesterol Maternal Grandfather Parkinsonism Maternal Grandfather Stroke Maternal Grandfather No Known Problems Maternal Grandmother No Known Problems Mother Atrial Fibrillation Paternal Grandfather Rheum Arthritis Paternal Grandmother Relation Name Status Comments Brother Alive Father Alive Maternal Aunt Great Alive Maternal Grandfather Maternal Grandmother Alive Mother Alive Paternal Grandfather Alive Paternal Grandmother Alive Social History Tobacco Use Types Packs/Day [...] on file Sexual Orientation Not on file Last Filed Vital Signs Vital Sign Reading Time Taken Comments Blood Pressure 110/76 12/22/2018 1:47 PM EST Pulse 102 12/22/2018 1:47 PM EST Temperature 36.3 C (97.4 F) 03/09/2018 1:30 PM EDT Respiratory Rate 18 03/09/2018 1:30 PM EDT Oxygen Saturation 98% 03/09/2018 1:30 PM EDT Inhaled Oxygen Concentration - - Weight 99.3 kg (219 lb) 12/22/2018 1:47 PM EST Height 170.2 cm (5' 7 ) 03/24/2018 11:30 AM EDT Body Mass Index 34.3 03/24/2018 11:30 AM EDT Plan of Treatment Not on file Insurance [address] [id number] [employer] Advance Directives * Full Code (Latest Code Status on File) Date Activated Date Inactivated Comments 03/09/2018 10:32 AM 03/09/2018 3:55 PM * Full Code Date Activated Date Inactivated Comments 09/29/2016 6:40 AM 09/30/2016 3:40 PM * Full Code Date Activated Date Inactivated Comments 09/28/2016 11:53 PM 09/29/2016 6:40 AM * Full Code Date Activated Date Inactivated Comments 04/12/2014 3:44 AM 04/13/2014 8:09 PM * Full Code Date Activated Date Inactivated Comments 04/10/2014 4:53 PM 04/12/2014 3:44 AM Care Teams Bobbin Dumper 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 Specialty Start Date End Date Kathy Reynaga MD PCP - General 07/15/16
--- OUTSIDE RECORDS SUMMARY | 2025-06-30 07:59 | XMS_ITS | Encounter Summary ---
Author Organization [facility] Address [address] [facility] [address], [address] [place] [address] Care Team Providers Care Lab Engineer Name Role Phone Kathy Reynaga MD Primary Care Provider [phone] Encounter Details Date Type Department Care Team (Late st Contact Info) Description 10/09/2016 FollowUp Telephone Encounter [facility] Labor and Delivery [address] [place], [place] [phone] Nelsy Guardado, [place] [address] Social History Tobacco Use Types Packs/Day Years [...] as of this encounter Progress Notes * Nelsy Guardado, RN - 10/09/2016 2:06 PM EST Discharge Phone Call Log Patient Name: Treva Goetz OB Care Provider: No admitting provider for patient encounter. Most Recent Discharge Date: 09/30/16 Disposition of baby: (home) Call made 10/09/2016 2:06 PM [x] No answer [x] Message left [] documented in this encounter Plan of Treatment Not on file documented as of this encounter Visit Diagnoses Not on filedocumented in this encounter Care Teams Lab Engineer 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 Specialty Start Date End Date Kathy Reynaga MD PCP - General 07/15/16 documented as of this encounter
--- OUTSIDE RECORDS SUMMARY | 2025-06-30 08:00 | XMS_ITS | CCD ---
Author Organization [facility] Care Team Providers Care Mophead Trimmer And Wrapper Name Role Phone OLIVA, MARIANELA E Unavailable Unavailable OLIVA, MARIANELA E Unavailable Unavailable OLIVA, MARIANELA E Unavailable Unavailable Macario Jarvis Attending Unavailable OLIVA, MARIANELA~[phone] UNKNOWN Primary Care Unavailable HEDGES, CHAU Admitting Unavailable HEDGES, CHAU Attending Unavailable HEDGES, CHAU Referring Unavailable OLIVA, MARIANELA~[phone] UNKNOWN Primary Care Unavailable HEDGES, CHAU W [...] MD Marianela Oliva Primary Care Provider DO Marissa Garcia Attending Provider MD Marianela Oliva Attending Provider [phone] MD Marianela Oliva Primary Care Provider Kuns, DO Mario P Attending Provider MD Marianela Oliva Primary Care Provider Kuns - [facility], DO Mario P Attending Provider MD Marianela Oliva Attending Provider MD Derrick Wilson Attending Provider NO FAMILY, PHYSICIAN Primary Care Provider Unava ilable SAUL Reddy Attending Provider Marianela Oliva MD Primary Care Provider Marianela Oliva MD Primary Care Provider Dasia SANTAMARIA Jose Luana Emergency Provider Marianela Oliva MD Primary Care Provider Dasia SANTAMARIA Jose Luana Emergency Provider Yasmani Abdullahi DO Attending Provider Marianela Oliva MD Primary Care Provider Marianela Oliva MD Primary Care Provider Marianela Oliva MD Primary Care Provider [phone] Kuns - [facility], Mario P Admitting Unavailable Kuns - [facility], Mario P Attending Unavailable Oliva, Marianela E Primary Care Unavailable NO FAMILY, PHYSICIAN Primary Care Unavailable Derrick Wilson Admitting Unavailable Derrick Wilson Attending Unavailable Melissa Reddy Admitting Unavailable Melissa Reddy Attending Unavailable Oliva, Marianela E Primary Care Unavailable Oliva, Marianela E Primary Care Unavailable Pj, Marianela E Attending Unavailable Oliva, Marianela E [...] Care Provider Yasmani Abdullahi DO Attending Provider [phone] [facility] Mario SANTAMARIA Attending Provider Marianela Oliva MD [...] (True Metrix Air Glucose Meter) w/Device kit (16 sources) Start: 04-09-2025 Blood Glucose Monitoring Suppl (True Metrix Air Glucose Meter) w/Device kit Indications: Gestational diabetes mellitus (GDM), antepartum, gestational diabetes method of control unspecified ([facility]) 1 kit in the morning and 1 [...] Drug Class(es) Dates Sig (Normalized) Sig (Original) [id number] 200 actuat albuterol 0.09 mg/actuat metered dose [...] oral tablet (6 sources) alpha-Adrenergic Agonist, Uncompetitive S-dbffaw-S-aspartat e Receptor Antagonist, Sigma-1 Agonist Start: 08-11-2024 [...] Facility US OB BPP W NON-STRESS on 06-27-2025 [place] [address] Ultrasound Report Signed Patient: NORIS GOETZ MR#: [id number] : 1990 Acct:[id number] Age/Sex: 35 / F ADM Date: 06/27/25 Loc: US Attending Dr: Yasmani Abdullahi D.O. Ordering Physician: Yasmani Abdullahi D.O. Date of Service: 06/27/25 Procedure(s): US OB BPP w non-stress Accession Number(s): [id number] cc: Marianela Oliva M.D.; Yasmani Abdullahi D.O. [place] [id number] Patient Name: NORIS GOETZ MRN: [id number] date: 1990 Sex: F Assigned Patient Location: US Current Patient Location: Accession/Order Number: [id number] Exam Date: 06/27/2025 07:35 Report Date: 06/27/2025 08:36 At the request of: YASMANI ABDULLAHI DO Procedure: US OB BPP w non-stress BIOPHYSICAL PROFILE: CLINICAL INFORMATION: Multigravida of advanced maternal age COMPARISON: 06/22/2025 There is a single live intrauterine gestation in cephalic presentation. The reported gestational age is 35 weeks 4 days The heart rate heyjmlcz529 beats per minute. FINDINGS: TONE: 1 or [...] Barnhart M.D. 06/27/2025 8:36 AM Dictation Location[facility] Electronically authenticated by: [id number] Y Date: 06/27/2025 08:36 Dictated By: Annel Barnhart M.D. Signed By: 06/27/25838 DD/ 5 TD/TT: Cheese Pancake Roller: [facility] Radiology, Radiologi MD lou - 06/27/2025 [place] [address] Ultrasound Report Signed Patient: NORIS GOETZ MR#: [id number] : 1990 Acct:[id number] Age/Sex: 35 / F ADM Date: 06/27/25 Loc: US Attending Dr: Yasmani Abdullahi D.O. Ordering Physician: Yasmani Abdullahi D.O. Date of Service: 06/27/25 Procedure(s): US OB BPP w non-stress Accession Number(s): [id number] cc: Marianela Oliva M.D.; Yasmani Abdullahi D.O. The [place] [id number] Patient Name: NORIS GOETZ MRN: [facility]:[id number] date: 1990 Sex: F Assigned Patient Location: US Current Patient Location: Accession/Order Number: [id number] Exam Date: 06/27/2025 07:35 Report Date: 06/27/2025 08:36 At the request of: YASMANI ABDULLAHI DO Procedure: US OB BPP w non-stress BIOPHYSICAL PROFILE: CLINICAL INFORMATION: Multigravida of advanced maternal age COMPARISON: 06/22/2025 There is a single live intrauterine gestation in cephalic presentation. The reported gestational age is 35 weeks 4 days The heart rate nunujmeo649 beats per minute. FINDINGS: TONE: 1 or [...] Barnhart M.D. 06/27/2025 8:36 AM Dictation Location: [employer] Electronically authenticated by: [id number] Y Date: 06/27/2025 08:36 Dictated By: Annel Barnhart M.D. Signed By: 06/27/25 0839 DD/ 5 TD/TT: Cheese Pancake Roller: [facility] Radiology Study observation (narrative) [facility] US OB BPP W NON-STRESS Ordered By: Radiologist Radiology on 06-27-2025 [facility] Work Phone: US OB BPP W NON-STRESS on 06-22-[address] [address] Ultrasound Report Signed Patient: NORIS GOETZ MR#: [id number] : 1990 Acct:[id number] Age/Sex: 35 / F ADM Date: 06/22/25 Loc: US Attending Dr: Yasmani Abdullahi D.O. Ordering Physician: Yasmani Abdullahi D.O. Date of Service: 06/22/25 Procedure(s): US OB BPP w non-stress Accession Number(s): [id number] cc: Marianela Oliva M.D.; Yasmani Abdullahi D.O. The [address] [place] [address] Patient Name: NORIS GOETZ MRN: [facility]:[id number] date: 1990 Sex: F Assigned Patient Location: [facility] Current Patient Location: Accession/Order Number: [id number] Exam Date: 06/22/2025 17:18 Report Date: 06/22/2025 [...] Flores M.D. 06/22/2025 9:47 PM Dictation Location: [place] [address] Electronically authenticated by: [id number] Y Date: 06/22/2025 21:47 Dictated By: Alfonzo Flores D.O. Signed By: 06/22/252149 DD/ 46 TD/TT: Cheese Pancake Roller: [facility] Radiology, Radiologjoni blake MD - 06/22/2025 [place] [address] Ultrasound Report Signed Patient: NORIS GOETZ MR#: [id number] : 1990 Acct:[id number] Age/Sex: 35 / F ADM Date: 06/22/25 Loc: US Attending Dr: Yasmani Abdullahi D.O. Ordering Physician: Yasmani Abdullahi D.O. Date of Service: 06/22/25 Procedure(s): US OB BPP w non-stress Accession Number(s): [id number] cc: Marianela Oliva M.D.; Yasmani Abdullahi D.O. The [place] [id number] Patient Name: NORIS GOETZ MRN: [facility]:[id number] date: 1990 Sex: F Assigned Patient Location: [facility] Current Patient Location: Accession/Order Number: [id number] Exam Date: 06/22/2025 17:18 Report Date: 06/22/2025 [...] Flores M.D. 06/22/2025 9:47 PM Dictation Location: [place] [address] Electronically authenticated by: [id number] Y Date: 06/22/2025 21:47 Dictated By: Alfonzo Flores D.O. Signed By: 06/22/252149 DD/ 46 TD/TT: Cheese Pancake Roller: [facility] Radiology Study observation (narrative) [facility] US OB BPP W NON-STRESS Ordered By: Radiologist Radiology on 06-22-2025 [facility] [employer] Work Phone: US OB FOLLOW UP TRANSABDOMIN [...] UA Negative Negative - 4(70) +++ mg/dL [facility] Blood, UA Negative Negative - 50 Tavon/mcL [facility] Clarity, UA Clear [facility] Color, UA Yellow [facility] Glucose, UA Negative Negative - 1999(110) ++++ mg/dL [facility] Interpretation and review of laboratory results Abnormal [facility] Ketones, UA Positive Negative - 160(16) ++++ mg/dL [facility] Leukocytes, UA 1+ Negative - 500+++ Bertha/mcL [facility] Nitrite, UA Negative Negative - Positive [facility] pH, UA 7 5 - 9 [facility] Protein, UA Negative Negative - 2000(20) ++++ mg/dL [facility] Spec Grav, UA 1.015 1 - 1.03 [facility] Urobilinogen, UA 1.0 0.2 - 12 mg/dL [facility] US OB BPP W NON-STRESS on 06-19-2025 [place] [address] Ultrasound Report Signed Patient: NORIS GOETZ MR#: [id number] : 1990 Acct:[id number] Age/Sex: 35 / F ADM Date: 06/19/25 Loc: [facility] 250-[address]: Yasmani Abdullahi D.O. Ordering Physician: Yasmani Abdullahi D.O. Date of Service: 06/19/25 Procedure(s): US OB BPP w non-stress Accession Number(s): [id number] cc: Marianela Oliva M.D.; Yasmani Abdullahi D.O. The [address] [address] Patient Name: NORIS GOETZ MRN: [facility]:[id number] date: 1990 Sex: F Assigned Patient Location: US Current Patient Location: US Accession/Order Number: [id number] Exam Date: 06/19/2025 11:08 Report Date: 06/19/2025 [...] Barnhart M.D. 06/19/2025 12:15 PM Dictation Location: [place] [address] Electronically authenticated by: [id number] Y Date: 06/19/2025 12:15 Dictated By: Annel Barnhart M.D. Signed By: 06/19/251216 DD/ 14 TD/TT: Cheese Pancake Roller: [facility] Radiology, Radiologi MD lou - 06/19/2025 [place] [address] Ultrasound Report Signed Patient: NORIS GOETZ MR#: [id number] : 1990 Acct:[id number] Age/Sex: 35 / F ADM Date: 06/19/25 Loc: [facility] 250-[address]: Yasmani Abdullahi D.O. Ordering Physician: Yasmani Abdullahi D.O. Date of Service: 06/19/25 Procedure(s): US OB BPP w non-stress Accession Number(s): [id number] cc: Marianela Oliva M.D.; Yasmani Abdullahi D.O. [place] [address] Patient Name: NORIS GOETZ MRN: [id number] date: 1990 Sex: F Assigned Patient Location: Current Patient Location: US Accession/Order Number: [id number] Exam Date: 06/19/2025 11:08 Report Date: 06/19/2025 [...] Barnhart M.D. 06/19/2025 12:15 PM Dictation Location: [facility] Electronically authenticated by: [id number] Y Date: 06/19/2025 12:15 Dictated By: Annel Barnhart M.D. Signed By: 06/19/25 1217 DD/ 1215 TD/TT: Cheese Pancake Roller: [facility] Radiology Study observation (narrative) [facility] OB BPP W NON-STRESS Ordered By: Radiologist Radiology on 06-19-2025 [facility] Work Phone: Urinalysis macro (dipstick) panel (U)on 06-07-2025 Bilirubin, UA Negative Negative - 4(70) +++ mg/dL [facility] Blood, UA Negative Negative - 50 Tavon/mcL [facility] Clarity, UA Clear [facility] Color, UA Yellow [facility] Glucose, UA Negative Negative - 2000(110) ++++ mg/dL [facility] Interpretation and review of laboratory results Normal [facility] Ketones, UA Negative Negative - 160(16) ++++ mg/dL [facility] Leukocytes, UA Negative Negative - 500+++ Bertha/mcL [facility] Nitrite, UA Negative Negative - Positive [facility] pH, UA 7.5 5 - 9 [facility] Protein, UA Negative Negative - 2000(20) ++++ mg/dL [facility] Spec Grav, UA 1.005 1 - 1.03 [facility] Urobilinogen, UA 1.0 0.2 - 12 mg/dL [facility] US OB FOLLOW UP TRANSABDOMIN AL APPROACHon 05-22-2025 OB FOLLOW UP TRANSABDOMINAL APPROACH FINDINGS: Comparison [...] UA Negative Negative - 4(70) +++ mg/dL [facility] Blood, UA Negative Negative - 50 Tavon/mcL [facility] Healthcare Clarity, UA Clear [facility] Color, UA Yellow [facility] Glucose, UA Negative Negative - 1999(110) ++++ mg/dL [facility] Interpretation and review of laboratory results Normal [facility] Ketones, UA Negative Negative - 160(16) ++++ mg/dL [facility] Leukocytes, UA Negative Negative - 500+++ Bertha/mcL [facility] Nitrite, UA Negative Negative - Positive [facility] pH, UA 6.5 5 - 9 [facility] Protein, UA Negative Negative - 1999(20) ++++ mg/dL [facility] Spec Grav, UA 1.01 1 - 1.03 [facility] Urobilinogen, UA 1.0 0.2 - 12 mg/dL [facility] Healthcare [facility] Urinalysis macro (dipstick) panel (U)on 05-10-2025 Bilirubin, UA Negative Negative - 4(70) +++ mg/dL [facility] Blood, UA Negative Negative - 50 Tavon/mcL [facility] Clarity, UA Clear [facility] Color, UA Yellow [facility] Glucose, UA Negative Negative - 1999(110) ++++ mg/dL [facility] Interpretation and review of laboratory results Abnormal [facility] Ketones, UA Positive Negative - 160(16) ++++ mg/dL [facility] Comment on above: Large Leukocytes, UA Negative Negative - 500+++ Bertha/mcL [facility] Nitrite, UA Negative Negative - Positive [facility] pH, UA 6.5 5 - 9 [facility] Protein, UA Trace Negative - 1999(20) ++++ mg/dL [facility] Spec Grav, UA 1.015 1 - 1.03 [facility] Urobilinogen, UA 0.2 0.2 - 12 mg/dL [facility] Urinalysis macro (dipstick) panel (U)on 04-10-2025 Bilirubin, UA Negative Negative - 4(70) +++ mg/dL [facility] Blood, UA Negative Negative - 50 Tavon/mcL [facility] Clarity, UA Clear [facility] Color, UA Yellow [facility] Glucose, UA Negative Negative - 1999(110) ++++ mg/dL [facility] Interpretation and review of laboratory results Normal [facility] Ketones, UA Negative Negative - 160(16) ++++ mg/dL [facility] Leukocytes, UA Negative Negative - 500+++ Bertha/mcL [facility] Nitrite, UA Negative Negative - Positive [facility] pH, UA 6.5 5 - 9 [facility] Protein, UA Negative Negative - 1999(20) ++++ mg/dL [facility] Spec Grav, UA 1.025 1 - 1.03 [facility] Urobilinogen, UA 1.0 0.2 - 12 mg/dL [facility] Albumin [Mass/volume] in Ser um or Plasma by Bromocresol green (BCG) dye binding methoOrdered By: Mario Perez on 04-02-2025 Albumin BCG dye [Mass/Vol] 3.4 g/dL Low 3.5-5.7 [facility] Cholesterol in LDL Calc [Mas s/Vol]Ordered By: Mario Perez on 04-02-2025 Cholesterol in LDL [Mass/Vol] 120 mg/dL High 0-100 [facility] Comment on above: LDL ATP III CLASSIFI CATIONLDL less than 100 mg/dL OptimalLDL 100-129 mg/dL Near or above optimalLDL 130-159 mg/dL Borderline highLDL 160-189 mg/dL HighLDL greater than 189 mg/dL Very high Cholesterol in VLDL Calc [Ma ss/Vol]Ordered By: Mario Perez on 04-02-2025 Cholesterol in VLDL [Mass/Vol] 26 mg/dL [facility] Employee Comp Metabolic Pane marcel 04-02-2025 Albumin [Mass/Vol] 3.4 g/dL Low 3.5-5.7 [facility] Comment on above: Performed By: #### P ILLAR TSH, PILLAR CBC, PILLAR BMP, PILLAR LIPID #### [address] GFR/1.73 sq M.predicted MDRD (S/P/Bld) [Vol rate/Area] mL/min/{1.73_m2} Normal The [facility] Comment on above: Performed By: #### P ILLAR TSH, PILLAR CBC, PILLAR BMP, PILLAR LIPID #### [facility] [address] [place] [address] Employee Comp Metabolic Pane lOrdered By: Mario Perez on 04-02-2025 Albumin/Globulin [Mass ratio] 1.5 {ratio} [facility] Comment on above: Performed By: #### P ILLAR TSH, PILLAR CBC, PILLAR BMP, PILLAR LIPID #### [facility] [address] [place] [address] ALP [Catalytic activity/Vol] 39 U/L 34-104 [facility] Comment on above: Performed By: #### P ILLAR TSH, PILLAR CBC, PILLAR BMP, PILLAR LIPID #### [address] ALT [Catalytic activity/Vol] 10 U/L 7-52 [facility] Comment on above: Performed By: #### P ILLAR TSH, PILLAR CBC, PILLAR BMP, PILLAR LIPID #### [facility] [address] [place] [address] Anion gap [Moles/Vol] 8.5 mmol/L 6.0-15.0 [facility] Comment on above: Performed By: #### P ILLAR TSH, PILLAR CBC, PILLAR BMP, PILLAR LIPID #### [address] AST [Catalytic activity/Vol] 12 U/L Low 13-39 [facility] Comment on above: Performed By: #### P ILLAR TSH, PILLAR CBC, PILLAR BMP, PILLAR LIPID #### [address] [place] [address] [place] Bilirubin [Mass/Vol] 0.3 mg/dL 0.3-1.0 [facility] Comment on above: Performed By: #### P ILLAR TSH, PILLAR CBC, PILLAR BMP, PILLAR LIPID #### [address] Calcium [Mass/Vol] 8.2 mg/dL Low 8.6-10.3 [facility] Comment on above: Performed By: #### P ILLAR TSH, PILLAR CBC, PILLAR BMP, PILLAR LIPID #### [facility] [address] [place] [address] Chloride [Moles/Vol] 106 mmol/L 98-107 [facility] Comment on above: Performed By: #### P ILLAR TSH, PILLAR CBC, PILLAR BMP, PILLAR LIPID #### [facility] [address] [place] [address] CO2 [Moles/Vol] 25.4 mmol/L 21.0-31.0 [facility] Comment on above: Performed By: #### P ILLAR TSH, PILLAR CBC, PILLAR BMP, PILLAR LIPID #### [facility] [address] [place] [address] Creatinine [Mass/Vol] 0.49 mg/dL Low 0.60-1.20 [facility] Comment on above: Performed By: #### P ILLAR TSH, PILLAR CBC, PILLAR BMP, PILLAR LIPID #### [facility] [address] [place] [address] Globulin (S) [Mass/Vol] 2.3 g/dL [facility] Comment on above: Performed By: #### P ILLAR TSH, PILLAR CBC, PILLAR BMP, PILLAR LIPID #### [facility] [address] [place] [address] Glucose [Mass/Vol] 92 mg/dL 70-100 [facility] Comment on above: Performed By: #### P ILLAR TSH, PILLAR CBC, PILLAR BMP, PILLAR LIPID #### [address] [place] [address] [place] Potassium [Moles/Vol] 3.9 mmol/L 3.5-5.1 [facility] Comment on above: Performed By: #### P ILLAR TSH, PILLAR CBC, PILLAR BMP, PILLAR LIPID #### [address] Protein [Mass/Vol] 5.7 g/dL Low 6.4-8.9 [facility] Comment on above: Performed By: #### P ILLAR TSH, PILLAR CBC, PILLAR BMP, PILLAR LIPID #### [address] Sodium [Moles/Vol] 136 mmol/L 136-145 [facility] Comment on above: Performed By: #### P ILLAR TSH, PILLAR CBC, PILLAR BMP, PILLAR LIPID #### [address] Urea nitrogen [Mass/Vol] 12 mg/dL 7- [facility] Comment on above: Performed By: #### P ILLAR TSH, PILLAR CBC, PILLAR BMP, PILLAR LIPID #### [facility] [address] [place] [address] Employee Complete Blood Coun tOrdered By: Mario Perez on 04-02-2025 Basophils (Bld) [#/Vol] 0.0 10*3/uL 0.0-0.2 [facility] Comment on above: Result Comment: PERF ORMED BY: [place] [address] PATHOLOGIST BIG DATA ENGINEER JESS VARGAS M.D. Performed By: #### P ILLAR LIPID, PILLAR CBC, PILLAR CMP ####[address] Basophils/100 WBC (Bld) 0.5 % . [facility] Comment on above: Performed By: #### P ILLAR LIPID, PILLAR CBC, PILLAR CMP ####[facility] [place] [address] Eosinophils (Bld) [#/Vol] 0.2 10*3/uL 0.0-0.45 [facility] Comment on above: Performed By: #### P ILLAR LIPID, PILLAR CBC, PILLAR CMP ####[place] [id number] [facility] Eosinophils/100 WBC (Bld) 2.5 % . [facility] Comment on above: Performed By: #### P ILLAR LIPID, PILLAR CBC, PILLAR CMP ####[place] [id number] [facility] Erythrocyte distribution width (RBC) [Ratio] 13.4 % 11.9-15.3 [facility] Comment on above: Performed By: #### P ILLAR LIPID, PILLAR CBC, PILLAR CMP ####[address] Hematocrit (Bld) [Volume fraction] 34.4 % 34.0-46.4 [facility] Comment on above: Performed By: #### P ILLAR LIPID, PILLAR CBC, PILLAR CMP ####[place] [id number] [facility] Hemoglobin (Bld) [Mass/Vol] 11.8 g/dL 11.8-15.4 [facility] Comment on above: Performed By: #### P ILLAR LIPID, PILLAR CBC, PILLAR CMP ####[address] Lymphocytes (Bld) [#/Vol] 1.6 10*3/uL 1.00-4.8 [facility] Comment on above: Performed By: #### P ILLAR LIPID, PILLAR CBC, PILLAR CMP ####[place] [id number] [facility] Lymphocytes/100 WBC (Bld) 21.6 % . [facility] Comment on above: Performed By: #### P ILLAR LIPID, PILLAR CBC, PILLAR CMP ####[place] [phone] [facility] MCH (RBC) [Entitic mass] 29.3 pg 24.7-34.3 [facility] Comment on above: Performed By: #### P ILLAR LIPID, PILLAR CBC, PILLAR CMP ####[place] [phone] [facility] MCV (RBC) [Entitic vol] 85.4 fL 80-100 [facility] Comment on above: Performed By: #### P ILLAR LIPID, PILLAR CBC, PILLAR CMP ####[place] [phone] [facility] Monocytes (Bld) [#/Vol] 0.6 10*3/uL 0.0-0.8 [facility] Comment on above: Performed By: #### P ILLAR LIPID, PILLAR CBC, PILLAR CMP ####[place] [phone] [facility] Monocytes/100 WBC (Bld) 7.9 % . [facility] Comment on above: Performed By: #### P ILLAR LIPID, PILLAR CBC, PILLAR CMP ####[place] [phone] [facility] Neutrophils (Bld) [#/Vol] 5.0 10*3/uL 1.8-7.7 [facility] Comment on above: Performed By: #### P ILLAR LIPID, PILLAR CBC, PILLAR CMP ####[place] [phone] [facility] Neutrophils/100 WBC (Bld) 67.5 % . [facility] Comment on above: Performed By: #### P ILLAR LIPID, PILLAR CBC, PILLAR CMP ####[place] [phone] [facility] Platelet mean volume (Bld) [Entitic vol] 9.5 fL 6.3-10.7 [facility] Comment on above: Performed By: #### P ILLAR LIPID, PILLAR CBC, PILLAR CMP ####[address] [address] [facility] Platelets (Bld) [#/Vol] 198 10*3/uL 150-450 [facility] Comment on above: Performed By: #### P ILLAR LIPID, PILLAR CBC, PILLAR CMP ####[place] [phone] [address] RBC (Bld) [#/Vol] 4.03 10*6/uL 3.60-5.00 [facility] Comment on above: Performed By: #### P ILLAR LIPID, PILLAR CBC, PILLAR CMP ####[place] [phone] [address] WBC (Bld) [#/Vol] 7.4 10*3/uL 3.8-11.6 [facility] Comment on above: Performed By: #### P ILLAR LIPID, PILLAR CBC, PILLAR CMP ####[place] [phone] [address] Employee Complete Blood Coun ton 04-02-2025 Mean Corpuscular HGB Conc 34.3 g/dL Normal 32.0-35.0 [facility] Comment on above: Performed By: #### P ILLAR LIPID, PILLAR CBC, PILLAR CMP ####[place] [phone] [address] NRBC% 0.1 /100{WBC} Normal 0-0.5 [facility] Comment on above: Performed By: #### P ILLAR LIPID, PILLAR CBC, PILLAR CMP ####[address] Employee Lipid ProfileOrdere d By: Mario Perez on 04-02-2025 Cholesterol [Mass/Vol] 222 mg/dL High 140-200 [facility] Comment on above: Result Comment: Chol less than 200 mg/dl low risk Chol 201-239 mg/dl borderline risk Chol 240 mg/dl and greater high risk Performed By: #### P ILLAR TSH, PILLAR CBC, PILLAR BMP, PILLAR LIPID #### [facility] [address] Chol less than 200 m g/dl low riskChol 201-239 mg/dl borderline riskChol 240 mg/dl and greater high risk Cholesterol in HDL [Mass/Vol] 76 mg/dL 23-92 [facility] Comment on above: Result Comment: HDL CHOL ATP-III CLASSIFICATION Cardiovascular Risk HDL > or equal to 60 mg/dL LOW HDL < 40 mg/dL HIGH Performed By: #### P ILLAR TSH, PILLAR CBC, PILLAR BMP, PILLAR LIPID #### [address] HDL CHOL ATP-III CLA SSIFICATION Cardiovascular RiskHDL > or equal to 60 mg/dL LOWHDL < 40 mg/dL HIGH Cholesterol.total/Chol esterol in HDL [Mass ratio] 2.9 {ratio} <5.0 [facility] Comment on above: Result Comment: PERF ORMED BY: [place] [address] PATHOLOGIST BIG DATA ENGINEER JESS VARGAS M.D. Performed By: #### P ILLAR TSH, PILLAR CBC, PILLAR BMP, PILLAR LIPID #### [address] Employee Lipid Profileon LDL Cholesterol,Calculated 120 mg/dL High 0-100 [facility] Comment on above: Result Comment: LDL ATP III CLASSIFICATION LDL less than 100 mg/dL Optimal LDL 100-129 mg/dL Near or above optimal LDL 130-159 mg/dL Borderline high LDL 160-189 mg/dL High LDL greater than 189 mg/dL Very high Performed By: #### P ILLAR TSH, PILLAR CBC, PILLAR BMP, PILLAR LIPID #### [address] Triglyceride w/Reflex 131 mg/dL Normal 0-149 [facility] Comment on above: Result Comment: TRIG ATP III CLASSIFICATION TRIG less than 150 mg/dL Normal TRIG 150-199 mg/dL Borderline high TRIG 200-500 mg/dL High TRIG greater than 500 mg/dL Very high Standard traceable to the Center for Disease Conrtrol and Prevention (CDC) test method. Performed By: #### P ILLAR TSH, PILLAR CBC, PILLAR BMP, PILLAR LIPID #### [address] VLDL CHOLESTEROL 26 mg/dL Normal [facility] [place] [facility] Comment on above: Performed By: #### P ILLAR TSH, PILLAR CBC, PILLAR BMP, PILLAR LIPID #### [facility] [address] Leukocytes [#/volume] correc randolph for nucleated erythrocytes in Blood by Automated counOrdered By: Mario Perez on 04-02-2025 WBC corrected for nucl RBC Auto (Bld) [#/Vol] 7.4 10*3/uL 3.8-11.6 [facility] MCHC Auto (RBC) [Mass/Vol]Or dered By: Mario Perez on 04-02-2025 MCHC (RBC) [Mass/Vol] 34.3 g/dL 32.0-35.0 [facility] No Panel InformationOrdered By: Mario Perez on 04-02-2025 Estimated GFR (CKD-EPI) > 60.0 mL/Min [facility] Creatinine Clearance (Chem N/A [facility] Nucleated erythrocytes [Pres ence] in Blood by Automated countOrdered By: Mario Perez on 04-02-2025 Nucleated RBC Auto Ql (Bld) 0.1 /100{WBC} 0-0.5 [facility] Triglyceride [Mass/volume] i n Serum or PlasmaOrdered By: Mario Perez on 04-02-2025 Triglyceride [Mass/Vol] 131 mg/dL 0-149 [facility] Comment on above: TRIG ATP III [...] II, MD, PHD at 16-Mar-2025 11:50:11 AM [facility] Normal Not Available Comment on above: Order Comment: US OB ANATOMY SINGLE W US OB CERVICAL LENGTH Estimated Date of Delivery: 07/28/25 Gestational Age as of 02/15/2025: 16w5d Urinalysis macro (dipstick) panel (U)on 03-15-2025 Bilirubin, UA Negative Negative - 4(70) +++ mg/dL [facility] Blood, UA Negative Negative - 50 Tavon/mcL [facility] Clarity, UA Clear [facility] Color, UA Yellow [facility] Glucose, UA Negative Negative - 2000(110) ++++ mg/dL [facility] Interpretation and review of laboratory results Normal [facility] Ketones, UA Negative Negative - 160(16) ++++ mg/dL [facility] Leukocytes, UA Negative Negative - 500+++ Bertha/mcL [facility] Nitrite, UA Negative Negative - Positive [facility] pH, UA 7 5 - 9 [facility] Protein, UA Negative Negative - 2000(20) ++++ mg/dL [facility] Spec Grav, UA 1.015 1 - 1.03 [facility] Urobilinogen, UA 0.2 0.2 - 12 mg/dL [facility] Basophils Auto (Bld) [#/Vol] Ordered By: Yasmani Abdullahi on 03-14-2025 Basophils (Bld) [#/Vol] Automated basophil count 0.0-0.2 [facility] Basophils/100 WBC Auto (Bld) Ordered By: Yasmani Abdullahi on 03-14-2025 Basophils/100 WBC (Bld) Automated basophil % . [facility] CBC W Auto Differential pane l (Bld)on 03-14-2025 Basophils (Bld) [#/Vol] 0 10*3/uL 0.0 - 0.2 10*3/uL [facility] Basophils/100 WBC Manual cnt (Syn fld) 0.3 % . [facility] Eosinophils (Bld) [#/Vol] 0.1 10*3/uL 0.0 - 0.45 10*3/uL [facility] Eosinophils/100 WBC Manual cnt (Syn fld) 1 % . [facility] Erythrocyte distribution width (RBC) [Ratio] 13.5 % 11.9 - 15.3 % [facility] Hematocrit (Bld) [Volume fraction] 35.8 % 34.0 - 46.4 % [facility] Hemoglobin (Bld) [Mass/Vol] 12.6 g/dL 11.8 - 15.4 g/dL [facility] Interpretation and review of laboratory results Abnormal [facility] Lymphocytes (Bld) [#/Vol] 1.8 10*3/uL 1.00 - 4.8 10*3/uL [facility] Lymphocytes/100 WBC Manual cnt (Syn fld) 19.9 % . [facility] MCH (RBC) [Entitic mass] 29.2 pg 24.7 - 34.3 pg [facility] MCHC (RBC) [Mass/Vol] 35.1 g/dL High 32.0 - 35.0 g/dL [facility] Healthcare MCV (RBC) [Entitic vol] 83.3 fL 80 - 100 fL [facility] Monocytes (Bld) [#/Vol] 0.7 10*3/uL 0.0 - 0.8 10*3/uL [facility] Monocytes+Macrophages/ 100 WBC Manual cnt (Syn fld) 8.2 % . [facility] Neutrophils (Bld[facility] [#/Vol] 6.4 10*3/uL 1.8 - 7.7 10*3/uL [facility] Neutrophils/100 WBC Manual cnt (Syn fld) 70.6 % . [facility] NRBC 0.1 /100{WBC} 0 - 0.5 /100{WBC} [facility] Platelet mean volume (Bld) [Entitic vol] 9 fL 6.3 - 10.7 fL [facility] Platelets (Bld) [#/Vol] 235 10*3/uL 150 - 450 10*3/uL [facility] RBC LM.HPF (Urine sed) [#/Area] 4.3 10*6/uL 3.60 - 5.00 10*6/uL [facility] WBC (Bld) [#/Vol] 9.1 10*3/uL 3.8 - 11.6 10*3/uL [facility] Healthcare WBC LM.HPF (Urine sed) [#/Area] 9.1 10*3/uL 3.8 - 11.6 10*3/uL [facility] Complete Blood Count Auto Di ffOrdered By: Yasmani Abdullahi on 03-14-2025 Basophils (Bld) [#/Vol] 0.0 10*3/uL 0.0-0.2 [facility] Comment on above: Result Comment: PERF ORMED BY: [facility] [address] [id number] PATHOLOGIST BIG DATA ENGINEER JESS VARGAS M.D. Performed By: #### C BC ####[place] [id number] Basophils/100 WBC (Bld) 0.3 % . [facility] Comment on above: Performed By: #### C BC ####[place] [address] Eosinophils (Bld) [#/Vol] 0.1 10*3/uL 0.0-0.45 [facility] Comment on above: Performed By: #### C BC ####[address] Eosinophils/100 WBC (Bld) 1.0 % . [facility] Comment on above: Performed By: #### C BC ####[address] Erythrocyte distribution width (RBC) [Ratio] 13.5 % 11.9-15.3 [facility] Comment on above: Performed By: #### C BC ####[address] Hematocrit (Bld) [Volume fraction] 35.8 % 34.0-46.4 [facility] Comment on above: Performed By: #### C BC ####[address] Hemoglobin (Bld) [Mass/Vol] 12.6 g/dL 11.8-15.4 [facility] Comment on above: Performed By: #### C BC ####[address] Lymphocytes (Bld) [#/Vol] 1.8 10*3/uL 1.00-4.8 [facility] Comment on above: Performed By: #### C BC ####[address] Lymphocytes/100 WBC (Bld) 19.9 % . [facility] Comment on above: Performed By: #### C BC ####[address] MCH (RBC) [Entitic mass] 29.2 pg 24.7-34.3 [facility] Comment on above: Performed By: #### C BC ####[address] MCV (RBC) [Entitic vol] 83.3 fL 80-100 [facility] Comment on above: Performed By: #### C BC ####[place] [address] [place] [address] [place] Monocytes (Bld) [#/Vol] 0.7 10*3/uL 0.0-0.8 [facility] Comment on above: Performed By: #### C BC ####[address] [address] [facility] Monocytes/100 WBC (Bld) 8.2 % . [facility] Comment on above: Performed By: #### C BC ####[address] [address] [place] Neutrophils (Bld) [#/Vol] 6.4 10*3/uL 1.8-7.7 [facility] Comment on above: Performed By: #### C BC ####[address] [address] [facility] Neutrophils/100 WBC (Bld) 70.6 % . [facility] Comment on above: Performed By: #### C BC ####[address] [address] [facility] Platelet mean volume (Bld) [Entitic vol] 9.0 fL 6.3-10.7 [facility] Comment on above: Performed By: #### C BC ####[address] [address] [facility] Platelets (Bld) [#/Vol] 235 10*3/uL 150-450 [facility] Comment on above: Performed By: #### C BC ####[address] [address] [facility] RBC (Bld) [#/Vol] 4.30 10*6/uL 3.60-5.00 [facility] Comment on above: Performed By: #### C BC ####[address] [address] [facility] WBC (Bld) [#/Vol] 9.1 10*3/uL 3.8-11.6 [facility] Comment on above: Performed By: #### C BC ####[facility] [address] Complete Blood Count Auto Di ffon 03-14-2025 Mean Corpuscular HGB Conc 35.1 g/dL High 32.0-35.0 [facility] Comment on above: Performed By: #### C BC ####[facility] [id number] NRBC% 0.1 /100{WBC} Normal 0-0.5 [facility] Comment on above: Performed By: #### C BC ####[facility] Eosinophils Auto (Bld) [#/Vo l]Ordered By: Yasmani Abdullahi on 03-14-2025 Eosinophils (Bld) [#/Vol] Automated eosinophil count 0.0-0.45 [facility] Eosinophils/100 WBC Auto (Bl d)Ordered By: Yasmani Abdullahi on 03-14-2025 Eosinophils/100 WBC (Bld) Automated eosinophil % . [facility] Erythrocyte distribution wid th Auto (RBC) [Ratio]Ordered By: Yasmani Abdullahi on 03-14-2025 Erythrocyte distribution width (RBC) [Ratio] Erythrocyte distribution width [Ratio] by Automated count 11.9-15.3 [facility] Hematocrit Auto (Bld) [Volum e fraction]Ordered By: Yasmani Abdullahi on 03-14-2025 Hematocrit (Bld) [Volume fraction] Hematocrit [Volume Fraction] of Blood by Automated count 34.0-46.4 [facility] Hemoglobin [Mass/volume] in BloodOrdered By: Yasmani Abdullahi on 03-14-2025 Hemoglobin (Bld) [Mass/Vol] Hemoglobin [Mass/volume] in Blood 11.8-15.4 [facility] Leukocytes [#/volume] correc randolph for nucleated erythrocytes in Blood by Automated counOrdered By: Yasmani Abdullahi on 03-14-2025 WBC corrected for nucl RBC Auto (Bld) [#/Vol] Leukocytes [#/volume] corrected for nucleated erythrocytes in Blood by Automated coun 3.8-11.6 [facility] WBC corrected for nucl RBC Auto (Bld) [#/Vol] 9.1 10*3/uL 3.8-11.6 [facility] Lymphocytes Auto (Bld) [#/Vo l]Ordered By: Yasmani Abdullahi on 03-14-2025 Lymphocytes (Bld) [#/Vol] Lymphocytes [#/volume] in Blood by Automated count 1.00-4.8 [facility] Lymphocytes/100 WBC Auto (Bl d)Ordered By: Yasmani Abdullahi on 03-14-2025 Lymphocytes/100 WBC (Bld) Lymphocytes/100 leukocytes in Blood by Automated count . [facility] MCH Auto (RBC) [Entitic mass ]Ordered By: Yasmani Abdullahi on 03-14-2025 MCH (RBC) [Entitic mass] MCH [Entitic mass] by Automated count 24.7-34.3 [facility] MCHC Auto (RBC) [Mass/Vol]Or dered By: Yasmani Abdullahi on 03-14-2025 MCHC (RBC) [Mass/Vol] MCHC [Mass/volume] by Automated count High 32.0-35.0 [facility] MCHC (RBC) [Mass/Vol] 35.1 g/dL High 32.0-35.0 [facility] MCV Auto (RBC) [Entitic vol] Ordered By: Yasmani Abdullahi on 03-14-2025 MCV (RBC) [Entitic vol] MCV [Entitic volume] by Automated count 80-100 [facility] Monocytes Auto (Bld) [#/Vol] Ordered By: Yasmani Abdullahi on 03-14-2025 Monocytes (Bld) [#/Vol] Automated blood monocyte count 0.0-0.8 [facility] Monocytes/100 WBC Auto (Bld) Ordered By: Yasmani Abdullahi on 03-14-2025 Monocytes/100 WBC (Bld) Automated monocyte % . [facility] Neutrophils Auto (Bld) [#/Vo l]Ordered By: Yasmani Abdullahi on 03-14-2025 Neutrophils (Bld) [#/Vol] Neutrophils [#/volume] in Blood by Automated count 1.8-7.7 [facility] Neutrophils/100 WBC Auto (Bl d)Ordered By: Yasmani Abdullahi on 03-14-2025 Neutrophils/100 WBC (Bld) Automated neutrophil % . [facility] Nucleated erythrocytes [Pres ence] in Blood by Automated countOrdered By: Yasmani Abdullahi on 03-14-2025 Nucleated RBC Auto Ql (Bld) Nucleated erythrocytes [Presence] in Blood by Automated count 0-0.5 [facility] Nucleated RBC Auto Ql (Bld) 0.1 /100{WBC} 0-0.5 [facility] Platelet mean volume Auto (B ld) [Entitic vol]Ordered By: Yasmani Abdullahi on 03-14-2025 Platelet mean volume (Bld) [Entitic vol] Platelet mean volume [Entitic volume] in Blood by Automated count 6.3-10.7 [facility] Platelets Auto (Bld) [#/Vol] Ordered By: Yasmani Abdullahi on 03-14-2025 Platelets (Bld) [#/Vol] Platelets [#/volume] in Blood by Automated count 150-450 [facility] RBC Auto (Bld) [#/Vol]Ordere d By: Yasmani Abdullahi on 03-14-2025 RBC (Bld) [#/Vol] Erythrocytes [#/volu me] in Blood by Automated count 3.60-5.00 [facility] WBC Auto (Bld) [#/Vol]Ordere d By: Yasmani Abdullahi on 03-14-2025 WBC (Bld) [#/Vol] Leukocytes [#/volume ] in Blood by Automated count 3.8-11.6 [facility] IGP,APTIMA HPV,AGE GDLNon AGE GDLN ACOG TESTING Note . [facility] Comment on above: TESTS RESULT FLAG UN ITS REF RANGE LAB Clinician Provided Cytology Information Source.............[employer] Other.............. No. of containers..01 ThinPrep Vial Age John PEREZ Gemma... 3065 01 FLAG LEGEND: L-Low Normal,H-High Normal,LL-Alert Low,HH-Alert High <-Panic Low,>-Panic High,A-Abnormal,AA-Critical Abnormal Performed at: 01 =[address] [address] Azalea Quezada MD, HPV APTIMA Negative Negative [facility] Comment on above: This nucleic acid am plification test detects fourteen high- risk HPV types (16,18,31,33,35,39,45,51,52,56,58,59,66,68) without differentiation. Performed at: =[address] [id number] [employer]lower And Compressor Assembler: Azalea Quezada MD, Phone: [phone] Performed at: [address] [id number] [employer]lower [employer] Compressor Assembler: Azalea Quezada MD, Phone: [phone] IGP, APTIMA HPV, RFX 16/18,45 Note . [facility] Comment on above: TESTS RESULT FLAG UN ITS REF RANGE LAB DIAGNOSIS: 02 NEGATIVE FOR INTRAEPITHELIAL LESION OR MALIGNANCY. Specimen adequacy: 02 Satisfactory for evaluation. No endocervical component is identified. An endocervical component is not commonly seen in the patient. Performed by: 02 Oli Martin Rn Im[facility] ([facility]) . 02 Note: Note 02 The Pap [...] <-Panic Low,>-Panic High,A-Abnormal,AA-Critical Abnormal Performed at: [address] [address] Azalea Quezada MD, SPATULA-ALONE [employer] [facility] RECURRENT VAGINITIS (HTRX)on 02-16-2025 ATOPOBIUM VAGINAE 0 [facility] Healthcare ATOPOBIUM VAGINAE Not detected [facility] BVAB 2,3 (BACTERIAL VAGINOSIS ASSOCIATED BACTERIA 2, 3); MOBILUNCUS SPP 0 [facility] BVAB 2,3 (BACTERIAL VAGINOSIS ASSOCIATED BACTERIA 2, 3); MOBILUNCUS SPP Not detected [facility] Healthcare JOHNNIE ALBICANS, PARAPSILOSIS, TROPICALIS 0 [facility] Healthcare JOHNNIE ALBICANS, PARAPSILOSIS, TROPICALIS Not detected [facility] JOHNNIE GLABRATA 0 [facility] JOHNNIE [...] 16+18+31+33+35+39+45+51+5 2+56+58+59+66+68 DNA [Presence] in Cer Negative [facility] Comment on above: This nucleic acid am plification test detects fourteen high- risk HPV types (16,18,31,33,35,39,45,51,52,56,58,59,66,68)without differentiation.Performed at: = - [facility] [id number] Director: Azalea Quezada MD, Phone: [phone] at: [facility] [id number] Director: Azalea Quezada MD, Phone: [phone] No Panel Informationon 02-15 HPV High Risk Other Comment Note . [facility] Comment on above: TESTS RESULT FLAG UN ITS REF RANGE LAB DIAGNOSIS: 02 NEGATIVE FOR INTRAEPITHELIAL LESION OR MALIGNANCY.Specimen adequacy: 02 Satisfactory for evaluation. No endocervical component is identified. An endocervical component is not commonly seen in the patient.Performed by: Darrell Martin Rn Im[facility] ([facility]). 02Note: Note 02 The Pap smear [...] <-Panic Low,>-Panic High,A-Abnormal,AA-Critical Abnormal -----Performed at:[address] [address] Azalea Quezada MD, Reference Lab Test Patient Age Note . [facility] Comment on above: TESTS RESULT FLAG UN ITS REF RANGE LAB Clinician Provided Cytology Information Source.............[employer] Other.............. No. of containers..01 ThinPrep VialAge John PEREZ Gemma... FLAG LEGEND: L-Low Normal,H-High Normal,LL-Alert Low,HH-Alert High <-Panic Low,>-Panic High,A-Abnormal,AA-Critical Abnormal -----Performed at:01 =[facility] [address] [place] [address] Azalea Quezada MD, Urinalysis macro (dipstick) panel (U)on 02-15-2025 Bilirubin, UA Negative Negative - 4(70) +++ mg/dL [facility] Blood, UA Negative Negative - 50 Tavon/mcL [facility] Clarity, UA Clear [facility] Color, UA Yellow [facility] Glucose, UA Positive Negative - 1999(110) ++++ mg/dL [facility] Comment on above: 100 Interpretation and review of laboratory results Abnormal [facility] Ketones, UA Negative Negative - 160(16) ++++ mg/dL [facility] Leukocytes, UA Negative Negative - 500+++ Bertha/mcL [facility] Nitrite, UA Negative Negative - Positive [facility] pH, UA 5.5 5 - 9 [facility] Protein, UA Negative Negative - 1999(20) ++++ mg/dL [facility] Spec Grav, UA 1.005 1 - 1.03 [facility] Urobilinogen, UA 0.2 0.2 - 12 mg/dL [facility] Urinalysis macro (dipstick) panel (U)on 01-18-2025 Bilirubin, UA Negative Negative - 4(70) +++ mg/dL [facility] Blood, UA Negative Negative - 50 Tavon/mcL [facility] Clarity, UA Clear [facility] Color, UA Yellow [facility] Glucose, UA Negative Negative - 2000(110) ++++ mg/dL [facility] Interpretation and review of laboratory results Abnormal [facility] Ketones, UA Negative Negative - 160(16) ++++ mg/dL [facility] Leukocytes, UA Negative Negative - 500+++ Bertha/mcL [facility] Nitrite, UA Negative Negative - Positive [facility] pH, UA 6 5 - 9 [facility] Protein, UA Negative Negative - 2000(20) ++++ mg/dL [facility] Spec Grav, UA 1.03 1 - 1.03 [facility] Urobilinogen, UA 0.2 0.2 - 12 mg/dL [facility] A1C with Estimated Average G alex 12-27-2024 Glucose [Mass/Vol] 103 mg/dL Normal [facility] Comment on above: Order Comment: NONFA STING.JKW Result Comment: PERF ORMED BY: [facility] [address] [place] [address] PATHOLOGIST BIG DATA ENGINEER LEÓN GARCIA M.D. Performed By: #### H CV RX PCR, RPR W RFX, RUBELLA IGG, HBSAG, HIV SCREEN ####[facility] ,#### CUU, A1C WT eA, CBC, URDS ####[place] [address] [address] HbA1c (Bld) [Mass fraction] 5.2 % Normal 4.3-5.6 [facility] Comment on above: Order Comment: NONFA STING.JKW Result Comment: Incr eased risk for diabetes: 5.7 - 6.4 diabetes: >6.4 glycemic control for adults with diabetes: <7.0 Performed By: #### H CV RX PCR, RPR W RFX, RUBELLA IGG, HBSAG, HIV SCREEN ####[facility] ,#### CUU, A1C WTH eA, CBC, URDS ####[place] [address] [address] Amphetamine Screen Ql (U)Ord ered By: Yasmani Abdullahi on 12-27-2024 Amphetamines Ql (U) Amphetamines screen Negativ e [facility] Barbiturates [Presence] in U rine by Screen methodOrdered By: Yasmani Abdullahi on 12-27-2024 Barbiturates Screen Ql (U) Barbiturates [Presence] in Urine by Screen method Negative [facility] Basophils Auto (Bld) [#/Vol] Ordered By: Yasmani Abdullahi on 12-27-2024 Basophils (Bld) [#/Vol] Automated basophil count 0.0-0.2 [facility] Basophils/100 WBC Auto (Bld) Ordered By: Yasmani Abdullahi on 12-27-2024 Basophils/100 WBC (Bld) Automated basophil % . [facility] Benzodiazepines Screen Ql (U )Ordered By: Yasmani Abdullahi on 12-27-2024 Benzodiazepines Ql (U) Benzodiazepines [Presence] in Urine by Screen method Negative [facility] Benzoylecgonine [Presence] i n Urine by Screen methodOrdered By: Yasmani Abdullahi on 12-27-2024 Benzoylecgonine Screen Ql (U) Benzoylecgonine [Presence] in Urine by Screen method Negative [facility] Blood estimated average gluc ose determination by estimation from glycated hemoglobinOrdered By: Yasmani Abdullahi on 12-27-2024 Average glucose Estimated from glycated hemoglobin (Bld) [Mass/Vol] Glucose mean value [Mass/volume] in Blood Estimated from glycated hemoglobin [facility] Cannabinoids [Presence] in U rine by Screen methodOrdered By: Yasmani Abdullahi on 12-27-2024 Cannabinoids Screen Ql (U) Cannabinoids [Presence] in Urine by Screen method Negative [facility] Comment on above: These are unconfirme d results and should not be used for legal purposes. Drug Cut-Off Concentration: AMPH 1000 ng/mL ABELARDO 200 ng/mL JESSE 200 ng/mL COCM 300 ng/mL OP 300 ng/mL PCP 25 ng/mL THC 20 ng/mL Complete Blood Count Auto Di ffon 12-27-2024 Basophils (Bld) [#/Vol] 0.0 10*3/uL Normal 0.0-0.2 [facility] Comment on above: Order Comment: NONFA STING.JKW Result Comment: PERF ORMED BY: [facility] [address] [place] [address] PATHOLOGIST BIG DATA ENGINEER LEÓN GARCIA M.D. Performed By: #### H CV RX PCR, RPR W RFX, RUBELLA IGG, HBSAG, HIV SCREEN #### [facility] , #### CUU, A1C WTH eA, CBC, URDS #### [address] Basophils/100 WBC (Bld) 0.6 % Normal . [facility] Comment on above: Order Comment: NONFA STING.JKW Performed By: #### H CV RX PCR, RPR W RFX, RUBELLA IGG, HBSAG, HIV SCREEN #### [facility] , #### CUU, A1C WTH eA, CBC, URDS #### [address] Eosinophils (Bld) [#/Vol] 0.1 10*3/uL Normal 0.0-0.45 [facility] Comment on above: Order Comment: NONFA STING.JKW Performed By: #### H CV RX PCR, RPR W RFX, RUBELLA IGG, HBSAG, HIV SCREEN #### [facility] , #### CUU, A1C WTH eA, CBC, URDS #### [address] Eosinophils/100 WBC (Bld) 1.7 % Normal . [facility] Comment on above: Order Comment: NONFA STING.JKW Performed By: #### H CV RX PCR, RPR W RFX, RUBELLA IGG, HBSAG, HIV SCREEN #### [facility] , #### CUU, A1C WTH eA, CBC, URDS #### [address] Erythrocyte distribution width (RBC) [Ratio] 13.7 % Normal 11.9-15.3 [facility] Comment on above: Order Comment: NONFA STING.JKW Performed By: #### H CV RX PCR, RPR W RFX, RUBELLA IGG, HBSAG, HIV SCREEN #### [facility] , #### CUU, A1C WTH eA, CBC, URDS #### [address] Hematocrit (Bld) [Volume fraction] 38.2 % Normal 34.0-46.4 [facility] Comment on above: Order Comment: NONFA STING.JKW Performed By: #### H CV RX PCR, RPR W RFX, RUBELLA IGG, HBSAG, HIV SCREEN #### [facility] , #### CUU, A1C WTH eA, CBC, URDS #### [address] Hemoglobin (Bld) [Mass/Vol] 13.0 g/dL Normal 11.8-15.4 [facility] [facility] Comment on above: Order Comment: NONFA STING.JKW Performed By: #### H CV RX PCR, RPR W RFX, RUBELLA IGG, HBSAG, HIV SCREEN #### [facility] , #### CUU, A1C WTH eA, CBC, URDS #### [address] Lymphocytes (Bld) [#/Vol] 1.2 10*3/uL Normal 1.00-4.8 [facility] Comment on above: Order Comment: NONFA STING.JKW Performed By: #### H CV RX PCR, RPR W RFX, RUBELLA IGG, HBSAG, HIV SCREEN #### [facility] , #### CUU, A1C WTH eA, CBC, URDS #### [address] Lymphocytes/100 WBC (Bld) 19.5 % Normal . [facility] Comment on above: Order Comment: NONFA STING.JKW Performed By: #### H CV RX PCR, RPR W RFX, RUBELLA IGG, HBSAG, HIV SCREEN #### [facility] , #### CUU, A1C WTH eA, CBC, URDS #### [address] MCH (RBC) [Entitic mass] 27.8 pg Normal 24.7-34.3 [facility] Comment on above: Order Comment: NONFA STING.JKW Performed By: #### H CV RX PCR, RPR W RFX, RUBELLA IGG, HBSAG, HIV SCREEN #### [facility] , #### CUU, A1C WTH eA, CBC, URDS #### [address] MCV (RBC) [Entitic vol] 81.5 fL Normal 80-100 [facility] Comment on above: Order Comment: NONFA STING.JKW Performed By: #### H CV RX PCR, RPR W RFX, RUBELLA IGG, HBSAG, HIV SCREEN #### [facility] , #### CUU, A1C WTH eA, CBC, URDS #### [address] Mean Corpuscular HGB Conc 34.1 g/dL Normal 32.0-35.0 [facility] Comment on above: Order Comment: NONFA STING.JKW Performed By: #### H CV RX PCR, RPR W RFX, RUBELLA IGG, HBSAG, HIV SCREEN #### [facility] , #### CUU, A1C WTH eA, CBC, URDS #### [address] Monocytes (Bld) [#/Vol] 0.4 10*3/uL Normal 0.0-0.8 [facility] Comment on above: Order Comment: NONFA STING.JKW Performed By: #### H CV RX PCR, RPR W RFX, RUBELLA IGG, HBSAG, HIV SCREEN #### [facility] , #### CUU, A1C WTH eA, CBC, URDS #### [address] Monocytes/100 WBC (Bld) 6.7 % Normal . [facility] Comment on above: Order Comment: NONFA STING.JKW Performed By: #### H CV RX PCR, RPR W RFX, RUBELLA IGG, HBSAG, HIV SCREEN #### [facility] , #### CUU, A1C WTH eA, CBC, URDS #### [address] Neutrophils (Bld) [#/Vol] 4.5 10*3/uL Normal 1.8-7.7 [facility] Comment on above: Order Comment: NONFA STING.JKW Performed By: #### H CV RX PCR, RPR W RFX, RUBELLA IGG, HBSAG, HIV SCREEN #### [facility] , #### CUU, A1C WTH eA, CBC, URDS #### [address] Neutrophils/100 WBC (Bld) 71.5 % Normal . [facility] Comment on above: Order Comment: NONFA STING.JKW Performed By: #### H CV RX PCR, RPR W RFX, RUBELLA IGG, HBSAG, HIV SCREEN #### [facility] , #### CUU, A1C WTH eA, CBC, URDS #### [address] NRBC% 0.0 /100{WBC} Normal 0-0.5 [facility] Comment on above: Order Comment: NONFA STING.JKW Performed By: #### H CV RX PCR, RPR W RFX, RUBELLA IGG, HBSAG, HIV SCREEN #### [facility] , #### CUU, A1C WTH eA, CBC, URDS #### [address] Platelet mean volume (Bld) [Entitic vol] 8.8 fL Normal 6.3-10.7 [facility] Comment on above: Order Comment: NONFA STING.JKW Performed By: #### H CV RX PCR, RPR W RFX, RUBELLA IGG, HBSAG, HIV SCREEN #### [facility] , #### CUU, A1C WTH eA, CBC, URDS #### [facility] [address] Platelets (Bld) [#/Vol] 225 10*3/uL Normal 150-450 [facility] Comment on above: Order Comment: NONFA STING.JKW Performed By: #### H CV RX PCR, RPR W RFX, RUBELLA IGG, HBSAG, HIV SCREEN #### [facility] , #### CUU, A1C WTH eA, CBC, URDS #### [facility] [address] [place] [id number] [facility] RBC (Bld) [#/Vol] 4.69 10*6/uL Normal 3.60-5.[address] [facility] Comment on above: Order Comment: NONFA STING.JKW Performed By: #### H CV RX PCR, RPR W RFX, RUBELLA IGG, HBSAG, HIV SCREEN #### [facility] , #### CUU, A1C WTH eA, CBC, URDS #### [facility] [address] [place] [id number] [facility] WBC (Bld) [#/Vol] 6.4 10*3/uL Normal 3.8-11.6 [facility] Comment on above: Order Comment: NONFA STING.JKW Performed By: #### H CV RX PCR, RPR W RFX, RUBELLA IGG, HBSAG, HIV SCREEN #### [facility] , #### CUU, A1C WTH eA, CBC, URDS #### [facility] [address] Drug Screen,Urineon 12-28-19 25 Amphetamine Screen,Urine Negative Normal Negative [facility] Comment on above: Order Comment: NONFA STING.JKW Performed By: #### H CV RX PCR, RPR W RFX, RUBELLA IGG, HBSAG, HIV SCREEN ####[facility] ,#### CUU, A1C WTH eA, CBC, URDS ####[address] Barbiturate Screen,Urine Negative Normal Negative [facility] Comment on above: Order Comment: NONFA STING.JKW Performed By: #### H CV RX PCR, RPR W RFX, RUBELLA IGG, HBSAG, HIV SCREEN ####[facility] ,#### CUU, A1C WTH eA, CBC, URDS ####[address] Benzodiazepines Screen,Urine Negative Normal Negative [facility] Comment on above: Order Comment: NONFA STING.JKW Performed By: #### H CV RX PCR, RPR W RFX, RUBELLA IGG, HBSAG, HIV SCREEN ####[facility] ,#### CUU, A1C WTH eA, CBC, URDS ####[address] Cannabinoid Screen,Urine Negative Normal Negative [facility] Comment on above: Order Comment: NONFA STING.JKW Result Comment: Thes e are unconfirmed results and should not be used for legal purposes. Drug Cut-Off Concentration: AMPH 1000 ng/mL ABELARDO 200 ng/mL JESSE 200 ng/mL COCM 300 ng/mL OP 300 ng/mL PCP 25 ng/mL THC 20 ng/mL PERFORMED BY: [facility] [address] [place] [address] PATHOLOGIST BIG DATA ENGINEER LEÓN GARCIA M.D. Performed By: #### H CV RX PCR, RPR W RFX, RUBELLA IGG, HBSAG, HIV SCREEN ####[facility] ,#### CUU, A1C WTH eA, CBC, URDS ####[address] Cocaine Screen,Urine Negative Normal Negative [facility] Comment on above: Order Comment: NONFA STING.JKW Performed By: #### H CV RX PCR, RPR W RFX, RUBELLA IGG, HBSAG, HIV SCREEN ####[facility] ,#### CUU, A1C WTH eA, CBC, URDS ####[facility] Opiate Screen,Urine Negative Normal Negative The [facility] Comment on above: Order Comment: NONFA STING.JKW Performed By: #### H CV RX PCR, RPR W RFX, RUBELLA IGG, HBSAG, HIV SCREEN ####[facility] ,#### CUU, A1C WTH eA, CBC, URDS ####[place] [address] [address] Phencyclidine Screen,Urine Negative Normal Negative [facility] Comment on above: Order Comment: NONFA STING.JKW Performed By: #### H CV RX PCR, RPR W RFX, RUBELLA IGG, HBSAG, HIV SCREEN ####[facility] ,#### CUU, A1C WTH eA, CBC, URDS ####[place] [address] [place] [id number] [facility] Eosinophils Auto (Bld) [#/Vo l]Ordered By: Yasmani Abdullahi on 12-27-2024 Eosinophils (Bld) [#/Vol] Automated eosinophil count 0.0-0.45 [facility] Eosinophils/100 WBC Auto (Bl d)Ordered By: Yasmani Abdullahi on 12-27-2024 Eosinophils/100 WBC (Bld) Automated eosinophil % . [facility] Erythrocyte distribution wid th Auto (RBC) [Ratio]Ordered By: Yasmani Abdullahi on 12-27-2024 Erythrocyte distribution width (RBC) [Ratio] Erythrocyte distribution width [Ratio] by Automated count 11.9-15.3 [facility] HIV 1/O/2 Antigen/Antibodyon 12-27-2024 HIV Screen 4th Generation Non-Reactive Normal Non Reactive [facility] Comment on above: Order Comment: NONFA STING.JKW Result Comment: HIV- 1/HIV-2 antibodies and HIV-1 p24 antigen were NOT detected. There is no laboratory evidence of HIV infection. HIV Negative Performed at: [address] [id number] [employer] Assembler: Garfield Fay PhD, Phone: [phone] Performed By: #### H CV RX PCR, RPR W RFX, RUBELLA IGG, HBSAG, HIV SCREEN ####[facility] ,#### CUU, A1C WTH eA, CBC, URDS ####[facility] HIV antibody and antigen nails elOrdered By: Yasmani Abdullahi on 12-27-2024 HIV 1+2 Ab+HIV1 p24 Ag IA Ql HIV 1 and HIV-2 antibody assay with HIV-1 p24 antigen detection Non Reactive [facility] Comment on above: HIV-1/HIV-2 antibodi es and HIV-1 p24 antigen were NOTdetected. There is no laboratory evidence of HIV infection.HIV NegativePerformed at: - [facility] [address] [id number] Director: Garfield Fay PhD, Phone: [phone] Hematocrit Auto (Bld) [Volum e fraction]Ordered By: Yasmani Abdullahi on 12-27-2024 Hematocrit (Bld) [Volume fraction] Hematocrit [Volume Fraction] of Blood by Automated count 34.0-46.4 [facility] Hemoglobin A1c/Hemoglobin.to dylan in BloodOrdered By: Yasmani Abdullahi on 12-27-2024 HbA1c (Bld) [Mass fraction] Hemoglobin A1c percentage 4.3-5.6 [facility] Comment on above: Increased risk for d iabetes: 5.7 - 6.4diabetes: >6.4glycemic control for adults with diabetes: <7.0 Hemoglobin [Mass/volume] in BloodOrdered By: Yasmani Abdullahi on 12-27-2024 Hemoglobin (Bld) [Mass/Vol] Hemoglobin [Mass/volume] in Blood 11.8-15.4 [facility] Hep C Ab wRfx to Qnt PCRon 0 12-27-2024 Hepatitis C Virus Antibody Non-Reactive Normal Non Reactive [facility] Comment on above: Order Comment: NONFA STING.JKW Performed By: #### H CV RX PCR, RPR W RFX, RUBELLA IGG, HBSAG, HIV SCREEN ####[facility] ,#### CUU, A1C WTH eA, CBC, URDS ####[place] [address] [address] Interpretation Hepatitis C Comment Normal . [facility] Comment on above: Order Comment: NONFA STING.JKW Result Comment: Not infected with HCV unless early or acute infection is suspected (which may be delayed in an immunocompromised individual), or other evidence exists to indicate HCV infection. Performed By: #### H CV RX PCR, RPR W RFX, RUBELLA IGG, HBSAG, HIV SCREEN ####[facility] ,#### CUU, A1C WTH eA, CBC, URDS ####[address] Hepatitis B Surface Antigeno n 12-27-2024 HBsAg Screen Negative Normal Negative [facility] Comment on above: Order Comment: NONFA STING.JKW Result Comment: Perf ormed at: CB - [facility] [place] [id number] [employer] Assembler: Garfield Fay PhD, Phone: [phone] PERFORMED BY: [place] [address] PATHOLOGIST BIG DATA ENGINEER LEÓN GARCIA M.D. Performed By: #### H CV RX PCR, RPR W RFX, RUBELLA IGG, HBSAG, HIV SCREEN ####[facility] ,#### CUU, A1C WTH eA, CBC, URDS ####[address] Hepatitis C virus IgG Ab [Pr esence] in Serum or Plasma by ImmunoassayOrdered By: Yasmani Abdullahi on 12-27-2024 HCV IgG IA Ql Hepatitis C virus Ig G Ab [Presence] in Serum or Plasma by Immunoassay Non Reactive [facility] Leukocytes [#/volume] correc randolph for nucleated erythrocytes in Blood by Automated counOrdered By: Yasmani Abdullahi on 12-27-2024 WBC corrected for nucl RBC Auto (Bld) [#/Vol] Leukocytes [#/volume] corrected for nucleated erythrocytes in Blood by Automated coun 3.8-11.6 [facility] Lymphocytes Auto (Bld) [#/Vo l]Ordered By: Yasmani Abdullahi on 12-27-2024 Lymphocytes (Bld) [#/Vol] Lymphocytes [#/volume] in Blood by Automated count 1.00-4.8 [facility] Lymphocytes/100 WBC Auto (Bl d)Ordered By: Yasmani Abdullahi on 12-27-2024 Lymphocytes/100 WBC (Bld) Lymphocytes/100 leukocytes in Blood by Automated count . [facility] MCH Auto (RBC) [Entitic mass ]Ordered By: Yasmani Abdullahi on 12-27-2024 MCH (RBC) [Entitic mass] MCH [Entitic mass] by Automated count 24.7-34.3 [facility] MCHC Auto (RBC) [Mass/Vol]Or dered By: Yasmani Abdullahi on 12-27-2024 MCHC (RBC) [Mass/Vol] MCHC [Mass/volume] by Automated count 32.0-35.0 [facility] MCV Auto (RBC) [Entitic vol] Ordered By: Yasmani Abdullahi on 12-27-2024 MCV (RBC) [Entitic vol] MCV [Entitic volume] by Automated count 80-100 [facility] Monocytes Auto (Bld) [#/Vol] Ordered By: Yasmani Abdullahi on 12-27-2024 Monocytes (Bld) [#/Vol] Automated blood monocyte count 0.0-0.8 [facility] Monocytes/100 WBC Auto (Bld) Ordered By: Yasmani Abdullahi on 12-27-2024 Monocytes/100 WBC (Bld) Automated monocyte % . [facility] Neutrophils Auto (Bld) [#/Vo l]Ordered By: Yasmani Abdullahi on 12-27-2024 Neutrophils (Bld) [#/Vol] Neutrophils [#/volume] in Blood by Automated count 1.8-7.7 [facility] Neutrophils/100 WBC Auto (Bl d)Ordered By: Yasmani Abdullahi on 12-27-2024 Neutrophils/100 WBC (Bld) Automated neutrophil % . [facility] No Panel InformationOrdered By: Yasmani Abdullahi on 12-27-2024 Hepatitis C Interpretation Comment . [facility] Comment on above: Not infected with HC V unless early or acute infection issuspected (which may be delayed in an immunocompromisedindividual), or other evidence exists to indicate HCVinfection. Nucleated erythrocytes [Pres ence] in Blood by Automated countOrdered By: Yasmani Abdullahi on 12-27-2024 Nucleated RBC Auto Ql (Bld) Nucleated erythrocytes [Presence] in Blood by Automated count 0-0.5 [facility] Opiates [Presence] in Urine by Screen methodOrdered By: Yasmani Abdullahi on 12-27-2024 Opiates Screen Ql (U) Opiates [Presence] in Urine by Screen method Negative [facility] Phencyclidine Screen Ql (U)O rdered By: Yasmani Abdullahi on 12-27-2024 Phencyclidine Ql (U) Phencyclidine [Pres ence] in Urine by Screen method Negative [facility] Platelet mean volume Auto (B ld) [Entitic vol]Ordered By: Yasmani Abdullahi on 12-27-2024 Platelet mean volume (Bld) [Entitic vol] Platelet mean volume [Entitic volume] in Blood by Automated count 6.3-10.7 [facility] Platelets Auto (Bld) [#/Vol] Ordered By: Yasmani Abdullahi on 12-27-2024 Platelets (Bld) [#/Vol] Platelets [#/volume] in Blood by Automated count 150-450 [facility] RBC Auto (Bld) [#/Vol]Ordere d By: Yasmani Abdullahi on 12-27-2024 RBC (Bld) [#/Vol] Erythrocytes [#/volu me] in Blood by Automated count 3.60-5.00 [facility] RPR w/rfx to Quant TP Abson 12-27-2024 RPR, Rfx Quant RPR Non-Reactive Normal Non Reactive [facility] Comment on above: Order Comment: NONFA STING.JKW Result Comment: Perf ormed at: - [facility] [address] [id number] [employer] Assembler: Garfield Fay PhD, Phone: [phone] PERFORMED BY: [facility] [address] [place] [address] PATHOLOGIST BIG DATA ENGINEER LEÓN GARCIA M.D. Performed By: #### H CV RX PCR, RPR W RFX, RUBELLA IGG, HBSAG, HIV SCREEN ####[facility] ,#### CUU, A1C WTH eA, CBC, URDS ####[place] [address] [place] [id number] [facility] Rubella IgG Antibodyon 12-27 Rubella IgG Antibody 1.22 Normal Immune >0.99 [facility] Comment on above: Order Comment: NONFA STING.JKW Result Comment: Non- immune <0.90 Equivocal 0.90 - 0.99 Immune >0.99 Performed By: #### H CV RX PCR, RPR W RFX, RUBELLA IGG, HBSAG, HIV SCREEN ####[facility] ,#### CUU, A1C WTH eA, CBC, URDS ####[place] [address] [address] Rubella IgG antibody assayOr dered By: Yasmani Abdullahi on 12-27-2024 Rubella IgG Antibody 1.22 index Immune >0.99 [facility] Comment on above: Non-immune <0.90 Equ ivocal 0.90 - 0.99 Immune >0.99 Serum RPR testOrdered By: Rishi Abdullahi on 12-27-2024 Reagin Ab RPR Ql (S) Reagin Ab [Presence ] in Serum by RPR Non Reactive [facility] Comment on above: Performed at: [id number] [place], [place] [id number] Director: Garfield Fay PhD, Phone: [phone] Serum or plasma hepatitis B virus surface antigen detection by immunoassayOrdered By: Yasmani Abdullahi on 12-27-2024 HBV surface Ag IA Ql Hepatitis B virus s urface Ag [Presence] in Serum or Plasma by Immunoassay Negative [facility] Comment on above: Performed at: [employer] [place], [place] [id number] Director: Garfield Fay PhD, Phone: [phone] Type and Screenon 12-27-2024 ABO and Rh group Nom (Bld) Blood group B Rh(D) negative Normal [facility] Comment on above: Order Comment: NONFA STING.JKW Result Comment: PERF ORMED BY: [place] [address] PATHOLOGIST BIG DATA ENGINEER LEÓN GARCIA M.D. Urine Cultureon 12-27-2024 Bacteria identified Cx Nom (U) NONFASTING.JKW 15,000 colonies/ml mixed bacterial skin contaminants 2 Days PERFORMED BY: [address] [place] [address] PATHOLOGIST BIG DATA ENGINEER LEÓN GARCAI M.D. Normal [facility] Comment on above: Performed By: #### H CV RX PCR, RPR W RFX, RUBELLA IGG, HBSAG, HIV SCREEN ####[facility] ,#### CUU, A1C WTH eA, CBC, URDS ####[facility] [address] Urine cultureOrdered By: Paramjit Abdullahi on 12-27-2024 Bacteria identified Cx Nom (U) Urine culture [facility] WBC Auto (Bld) [#/Vol]Ordere d By: Yasmani Abdullahi on 12-27-2024 WBC (Bld) [#/Vol] Leukocytes [#/volume ] in Blood by Automated count 3.8-11.6 [facility] US OB TRANSVAGINALon 025 US OB [...] II, MD, PHD at 22-Dec-2024 08:23:50 AM [facility] Normal Not Available Comment on above: Order Comment: US OB TRANSVAGINAL No LMP recorded. Alanine aminotransferase [En zymatic activity/volume] in Serum or PlasmaOrdered By: Jose Forman on 12-06-2024 ALT [Catalytic activity/Vol] Alanine aminotransferase [Enzymatic activity/volume] in Serum or Plasma 7-52 [facility] Albumin [Mass/volume] in Ser um or Plasma by Bromocresol green (BCG) dye binding methoOrdered By: Jose Forman on 12-06-2024 Albumin BCG dye [Mass/Vol] Albumin [Mass/volume] in Serum or Plasma by Bromocresol green (BCG) dye binding metho 3.5-5.7 [facility] Alkaline phosphatase [Enzyma tic activity/volume] in Serum or PlasmaOrdered By: Jose Forman on 12-06-2024 ALP [Catalytic activity/Vol] Alkaline phosphatase [Enzymatic activity/volume] in Serum or Plasma 34-104 [facility] Appearance of UrineOrdered B y: Jose Forman on 12-06-2024 Appearance (U) Urine appearance Clear [facility] Aspartate aminotransferase [ Enzymatic activity/volume] in Serum or PlasmaOrdered By: Jose Forman on 12-06-2024 AST [Catalytic activity/Vol] Aspartate aminotransferase [Enzymatic activity/volume] in Serum or Plasma Low 13-39 [facility] Bacteria [Presence] in Urine by AutomatedOrdered By: Jose Forman on 12-06-2024 Bacteria Auto Ql (U) Bacteria [Presence] in Urine by Automated None Seen [facility] Basic Metabolic Panelon 11-18 Anion gap [Moles/Vol] 7.0 mmol/L Normal 6.0-15.0 [facility] Comment on above: Performed By: #### C BC, HCGQNT, LIPASE, PT, HS TROP, PTT, HEPATIC, BMP ####[address] Calcium [Mass/Vol] 9.1 mg/dL Normal 8.6-10.3 [facility] Comment on above: Performed By: #### C BC, HCGQNT, LIPASE, PT, HS TROP, PTT, HEPATIC, BMP ####[place] [id number] [address] Chloride [Moles/Vol] 106 mmol/L Normal 98-107 [facility] Comment on above: Performed By: #### C BC, HCGQNT, LIPASE, PT, HS TROP, PTT, HEPATIC, BMP ####[address] CO2 [Moles/Vol] 24.6 mmol/L Normal 21.0-31.0 [facility] Comment on above: Performed By: #### C BC, HCGQNT, LIPASE, PT, HS TROP, PTT, HEPATIC, BMP ####[address] Creatinine [Mass/Vol] 0.70 mg/dL Normal 0.60-1.20 [facility] Comment on above: Performed By: #### C BC, HCGQNT, LIPASE, PT, HS TROP, PTT, HEPATIC, BMP ####[address] Creatinine Clr Calc Pharmacy 129.71 Normal [facility] Comment on above: Performed By: #### C BC, HCGQNT, LIPASE, PT, HS TROP, PTT, HEPATIC, BMP ####[address] GFR/1.73 sq M.predicted MDRD (S/P/Bld) [Vol rate/Area] mL/min/{1.73_m2} Normal [facility] Comment on above: Performed By: #### C BC, HCGQNT, LIPASE, PT, HS TROP, PTT, HEPATIC, BMP ####[address] Glucose [Mass/Vol] 94 mg/dL Normal 70-100 [facility] Comment on above: Result Comment: [facility] Glucose Reference Range is dependent on time and content of last meal. Glucose of more than 200 mg/dL in a nonstressed, ambulatory subject supports the diagnosis of Diabetes Mellitus. ADA recommended reference range Performed By: #### C BC, HCGQNT, LIPASE, PT, HS TROP, PTT, HEPATIC, BMP ####[address] Potassium [Moles/Vol] 3.6 mmol/L Normal 3.5-5.1 [facility] Comment on above: Performed By: #### C BC, HCGQNT, LIPASE, PT, HS TROP, PTT, HEPATIC, BMP ####[address] Sodium [Moles/Vol] 134 mmol/L Low 136-145 [facility] Comment on above: Performed By: #### C BC, HCGQNT, LIPASE, PT, HS TROP, PTT, HEPATIC, BMP ####[address] Urea nitrogen [Mass/Vol] 9 mg/dL Normal 7-25 [facility] Comment on above: Performed By: #### C BC, HCGQNT, LIPASE, PT, HS TROP, PTT, HEPATIC, BMP ####[address] Basophils Auto (Bld) [#/Vol] Ordered By: Jose Forman on 12-06-2024 Basophils (Bld) [#/Vol] Automated basophil count 0.0-0.2 [facility] Basophils/100 WBC Auto (Bld) Ordered By: Jose Forman on 12-06-2024 Basophils/100 WBC (Bld) Automated basophil % . [facility] Bilirubin Test strip Ql (U)O rdered By: Jose Forman on 12-06-2024 Bilirubin Ql (U) Bilirubin.total [Presence] in Urine by Test strip Negative [facility] Bilirubin.direct [Mass/volum e] in Serum or PlasmaOrdered By: Jose Forman on 12-06-2024 Bilirubin.direct [Mass/Vol] Bilirubin.direct [Mass/volume] in Serum or Plasma 0.03-0.18 [facility] Bilirubin.total [Mass/volume ] in Serum or PlasmaOrdered By: Jose Forman on 12-06-2024 Bilirubin [Mass/Vol] Bilirubin.total [Mass/volume] in Serum or Plasma 0.3-1.0 [facility] Calcium [Mass/volume] in Ser um or PlasmaOrdered By: Jose Forman on 12-06-2024 Calcium [Mass/Vol] Calcium [Mass/volume ] in Serum or Plasma 8.6-10.3 [facility] Carbon dioxide, total [Moles /volume] in Serum or PlasmaOrdered By: Jose Forman on 12-06-2024 CO2 [Moles/Vol] Carbon dioxide, tota l [Moles/volume] in Serum or Plasma 21.0-31.0 [facility] Chloride [Moles/volume] in S eamon or PlasmaOrdered By: Jose Forman 12-06-2024 Chloride [Moles/Vol] Chloride [Moles/vol ume] in Serum or Plasma 98-107 [facility] Choriogonadotropin.beta subu nit [Units/volume] in Serum or PlasmaOrdered By: Jose Forman on 12-06-2024 HCG.beta subunit Qn Choriogonadotropin.b eta subunit [Units/volume] in Serum or Plasma [facility] Comment on above: Approximate Approxim ate hCG Gestational Age Range (mIU/ml) (weeks)0.2-1 5-50 1-2 50-500 2-3 100-5,000 3-4 500-10,000 4-5 1,000-50,000 5-6 10,000-100,000 6-8 15,000-200,000 8-12 10,000-100,000 Color Auto (U)Ordered By: Edin Forman on 12-06-2024 Color (U) Color of Urine by Auto Yellow [facility] Complete Blood Count Auto Di ffon 12-06-2024 Basophils (Bld) [#/Vol] 0.0 10*3/uL Normal 0.0-0.2 [facility] Comment on above: Result Comment: PERF ORMED BY: [facility] [address] [facility] [place] [address] PATHOLOGIST BIG DATA ENGINEER LEÓN GARCIA M.D. Performed By: #### C BC, HCGQNT, LIPASE, PT, HS TROP, PTT, HEPATIC, BMP ####[address] Basophils/100 WBC (Bld) 0.4 % Normal . [facility] Comment on above: Performed By: #### C BC, HCGQNT, LIPASE, PT, HS TROP, PTT, HEPATIC, BMP ####[address] Eosinophils (Bld) [#/Vol] 0.0 10*3/uL Normal 0.0-0.45 [facility] Comment on above: Performed By: #### C BC, HCGQNT, LIPASE, PT, HS TROP, PTT, HEPATIC, BMP ####[address] Eosinophils/100 WBC (Bld) 0.4 % Normal . [facility] Comment on above: Performed By: #### C BC, HCGQNT, LIPASE, PT, HS TROP, PTT, HEPATIC, BMP ####[address] Erythrocyte distribution width (RBC) [Ratio] 13.0 % Normal 11.9-15.3 [facility] Comment on above: Performed By: #### C BC, HCGQNT, LIPASE, PT, HS TROP, PTT, HEPATIC, BMP ####[address] Hematocrit (Bld) [Volume fraction] 38.5 % Normal 34.0-46.4 [facility] Comment on above: Performed By: #### C BC, HCGQNT, LIPASE, PT, HS TROP, PTT, HEPATIC, BMP ####[address] Hemoglobin (Bld) [Mass/Vol] 13.4 g/dL Normal 11.8-15.4 [facility] Comment on above: Performed By: #### C BC, HCGQNT, LIPASE, PT, HS TROP, PTT, HEPATIC, BMP ####[address] Lymphocytes (Bld) [#/Vol] 1.1 10*3/uL Normal 1.00-4.8 [facility] Comment on above: Performed By: #### C BC, HCGQNT, LIPASE, PT, HS TROP, PTT, HEPATIC, BMP ####[address] Lymphocytes/100 WBC (Bld) 14.1 % Normal . [facility] Comment on above: Performed By: #### C BC, HCGQNT, LIPASE, PT, HS TROP, PTT, HEPATIC, BMP ####[address] MCH (RBC) [Entitic mass] 27.6 pg Normal 24.7-34.3 [facility] Comment on above: Performed By: #### C BC, HCGQNT, LIPASE, PT, HS TROP, PTT, HEPATIC, BMP ####[address] MCV (RBC) [Entitic vol] 79.6 fL Low 80-100 [facility] Comment on above: Performed By: #### C BC, HCGQNT, LIPASE, PT, HS TROP, PTT, HEPATIC, BMP ####[address] Mean Corpuscular HGB Conc 34.7 g/dL Normal 32.0-35.0 [facility] Comment on above: Performed By: #### C BC, HCGQNT, LIPASE, PT, HS TROP, PTT, HEPATIC, BMP ####[address] Monocytes (Bld) [#/Vol] 0.5 10*3/uL Normal 0.0-0.8 [facility] Comment on above: Performed By: #### C BC, HCGQNT, LIPASE, PT, HS TROP, PTT, HEPATIC, BMP ####[address] Monocytes/100 WBC (Bld) 16.18 % Normal 0.00-20.00 [facility] Comment on above: Performed By: #### C BC, HCGQNT, LIPASE, PT, HS TROP, PTT, HEPATIC, BMP ####[address] Monocytes/100 WBC (Bld) 6.4 % Normal . [facility] Comment on above: Performed By: #### C BC, HCGQNT, LIPASE, PT, HS TROP, PTT, HEPATIC, BMP ####[address] Neutrophils (Bld) [#/Vol] 5.9 10*3/uL Normal 1.8-7.7 [facility] Comment on above: Performed By: #### C BC, HCGQNT, LIPASE, PT, HS TROP, PTT, HEPATIC, BMP ####[address] Neutrophils/100 WBC (Bld) 78.7 % Normal . [facility] Comment on above: Performed By: #### C BC, HCGQNT, LIPASE, PT, HS TROP, PTT, HEPATIC, BMP ####[address] NRBC% 0.0 /100{WBC} Normal 0-0.5 [facility] Comment on above: Performed By: #### C BC, HCGQNT, LIPASE, PT, HS TROP, PTT, HEPATIC, BMP ####[place] [address] [place] Platelet mean volume (Bld) [Entitic vol] 8.7 fL Normal 6.3-10.7 [facility] Comment on above: Performed By: #### C BC, HCGQNT, LIPASE, PT, HS TROP, PTT, HEPATIC, BMP ####[facility] Platelets (Bld) [#/Vol] 230 10*3/uL Normal 150-450 [facility] Comment on above: Performed By: #### C BC, HCGQNT, LIPASE, PT, HS TROP, PTT, HEPATIC, BMP ####[facility] RBC (Bld) [#/Vol] 4.84 10*6/uL Normal 3.60-5.[address] [facility] Comment on above: Performed By: #### C BC, HCGQNT, LIPASE, PT, HS TROP, PTT, HEPATIC, BMP ####[facility] WBC (Bld) [#/Vol] 7.6 10*3/uL Normal 3.8-11.6 [facility] Comment on above: Performed By: #### C BC, HCGQNT, LIPASE, PT, HS TROP, PTT, HEPATIC, BMP ####[facility] Creatinine [Mass/volume] in Serum or PlasmaOrdered By: Jose Forman on 12-06-2024 Creatinine [Mass/Vol] Creatinine [Mass/v olume] in Serum or Plasma 0.60-1.20 [facility] Dipstick and Microscopicon 0 12-06-2024 Appearance (U) Clear Normal Clear [facility] Comment on above: Order Comment: Name Collection Type:: Clean-Voided Midstream Performed By: #### U HCG, ADDONUAPLUS #### [facility] [address] Bacteria,Urine None Seen Normal None Seen [facility] Comment on above: Order Comment: Name Collection Type:: Clean-Voided Midstream Performed By: #### U HCG, ADDONUAPLUS #### [address] Bilirubin,Urine Negative Normal Negative [facility] Comment on above: Order Comment: Name Collection Type:: Clean-Voided Midstream Performed By: #### U HCG, ADDONUAPLUS #### [address] Color (U) Yellow Normal Yellow [facility] Comment on above: Order Comment: Name Collection Type:: Clean-Voided Midstream Performed By: #### U HCG, ADDONUAPLUS #### [address] Glucose Ql (U) Normal Normal Normal [facility] Comment on above: Order Comment: Name Collection Type:: Clean-Voided Midstream Performed By: #### U HCG, ADDONUAPLUS #### [place] [address] [place] Hyaline Casts,Urine None Normal 0-8 [facility] Comment on above: Order Comment: Name Collection Type:: Clean-Voided Midstream Performed By: #### U HCG, ADDONUAPLUS #### [address] Ketones Ql (U) 1+ High Negative [facility] Comment on above: Order Comment: Name Collection Type:: Clean-Voided Midstream Performed By: #### U HCG, ADDONUAPLUS #### [address] Leukocyte esterase Test strip Ql (U) Negative Normal Negative [facility] Comment on above: Order Comment: Name Collection Type:: Clean-Voided Midstream Performed By: #### U HCG, ADDONUAPLUS #### [place] [address] [place] Mucus,Urine Rare Normal [facility] Comment on above: Order Comment: Name Collection Type:: Clean-Voided Midstream Performed By: #### U HCG, ADDONUAPLUS #### [place] [address] [place] Nitrite,Urine Negative Normal Negative [facility] Comment on above: Order Comment: Name Collection Type:: Clean-Voided Midstream Performed By: #### U HCG, ADDONUAPLUS #### [address] Occult Blood,Urine Negative Normal Negative [facility] Comment on above: Order Comment: Name Collection Type:: Clean-Voided Midstream Performed By: #### U HCG, ADDONUAPLUS #### [address] pH (U) 6.5 [pH] Normal 5.0-9.0 [facility] Comment on above: Order Comment: Name Collection Type:: Clean-Voided Midstream Performed By: #### U HCG, ADDONUAPLUS #### [address] Protein,Urine Trace High Negative [facility] Comment on above: Order Comment: Name Collection Type:: Clean-Voided Midstream Performed By: #### U HCG, ADDONUAPLUS #### [place] [address] [place] RBC,Urine 1-2 Normal 0-4 [facility] Comment on above: Order Comment: Name Collection Type:: Clean-Voided Midstream Performed By: #### U HCG, ADDONUAPLUS #### [place] [address] [place] Specificy [place],Urine 1.025 Normal 1.001-1.03 0 [facility] Comment on above: Order Comment: Name Collection Type:: Clean-Voided Midstream Performed By: #### U HCG, ADDONUAPLUS #### [place] [address] [place] Squamous Epithelial Cell,Urine 1-2 Normal 0-2 [facility] Comment on above: Order Comment: Name Collection Type:: Clean-Voided Midstream Performed By: #### U HCG, ADDONUAPLUS #### [place] [address] [place] Urobilinogen,Urine Normal Normal Normal [facility] Comment on above: Order Comment: Name Collection Type:: Clean-Voided Midstream Performed By: #### U HCG, ADDONUAPLUS #### [facility] [address] [place] [address] WBC,Urine 1-2 Normal 0-4 [facility] Comment on above: Order Comment: Name Collection Type:: Clean-Voided Midstream Performed By: #### U HCG, ADDONUAPLUS #### [facility] [address] ECG 12 lead ECGon 12-06-2024 ECG 12 lead ECG [facility] Main [place] [address] [place] [address] Electrocardiograph Report Signed Patient: Noris Goetz MR#: [id number] 61 : 1990 Acct:[id number] Age/Sex: 34 / F ADM Date: 12/06/24 Loc: ER Room: Type: [facility] ER Attending Dr: Ordering Provider: [...] branch block Confirmed by Jose FORMAN DO ([id number]) on 12/06/2024 10:38:39 AM Referred By: Electronically Signed By: Jose FORMAN DO Transcribed By: MUS Signed By Jose Forman DO 0 12/06/24 1038 Normal [facility] Eosinophils Auto (Bld) [#/Vo l]Ordered By: Jose Forman on 12-06-2024 Eosinophils (Bld) [#/Vol] Automated eosinophil count 0.0-0.45 [facility] Eosinophils/100 WBC Auto (Bl d)Ordered By: Jose Forman on 12-06-2024 Eosinophils/100 WBC (Bld) Automated eosinophil % . [facility] Epithelial cells.squamous [# /area] in Urine sediment by Automated countOrdered By: Jose Forman on 12-06-2024 Epithelial cells.squamous Auto (Urine sed) [#/Area] Epithelial cells.squamous [#/area] in Urine sediment by Automated count 0-2 [facility] Erythrocyte distribution wid th Auto (RBC) [Ratio]Ordered By: Jose Forman on 12-06-2024 Erythrocyte distribution width (RBC) [Ratio] Erythrocyte distribution width [Ratio] by Automated count 11.9-15.3 [facility] Erythrocytes [#/area] in Uri ne sediment by Automated countOrdered By: Jose Forman on 12-06-2024 RBC Auto (Urine sed) [#/Area] Erythrocytes [#/area] in Urine sediment by Automated count 0-4 [facility] Globulin Calc (S) [Mass/Vol] Ordered By: Jose Forman on 12-06-2024 Globulin (S) [Mass/Vol] Serum globulin measurement by calculation (mass/volume) [facility] Glucose [Mass/volume] in Ser um or PlasmaOrdered By: Jose Forman on 12-06-2024 Glucose [Mass/Vol] Glucose [Mass/volume ] in Serum or Plasma 70-100 [facility] Comment on above: ADA recommended refe [...] [Mass/volume] in Urine by Test strip Normal [facility] HCG ( test) IA.rapi d Ql (U)Ordered By: Jose Forman on 12-06-2024 HCG ( test) Ql (U) Urine human chorionic gonadotropin (hCG) detection by immunoassay High [facility] HCG,Quantitativeon HCG,Quantitative 656205.00 m[iU]/mL Normal [facility] Comment on above: Result Comment: Appr oximate Approximate hCG Gestational Age Range (mIU/ml) (weeks) 0.2-1 5-50 1-2 50-500 2-3 100-5,000 3-4 500-10,000 4-5 1,000-50,000 5-6 10,000-100,000 6-8 15,000-200,000 8-12 10,000-100,000 PERFORMED BY: [place] [address] PATHOLOGIST BIG DATA ENGINEER LEÓN GARCIA M.D. Performed By: #### C BC, HCGQNT, LIPASE, PT, HS TROP, PTT, HEPATIC, BMP ####[place] [address] [address] HCG,Urineon 12-06-2024 Beta HCG ( test) Ql (U) Positive High [facility] Comment on above: Order Comment: Name Collection Type:: Clean-Voided Midstream Result Comment: PERF ORMED BY: [place] [address] PATHOLOGIST BIG DATA ENGINEER LEÓN GARCIA M.D. Performed By: #### U HCG, ADDONUAPLUS #### [address] Hematocrit Auto (Bld) [Volum e fraction]Ordered By: Jose Forman on 12-06-2024 Hematocrit (Bld) [Volume fraction] Hematocrit [Volume Fraction] of Blood by Automated count 34.0-46.4 [facility] Hemoglobin Test strip Ql (U) Ordered By: Jose Forman on 12-06-2024 Hemoglobin Ql (U) Hemoglobin [Presence ] in Urine by Test strip Negative [facility] Hemoglobin [Mass/volume] in BloodOrdered By: Jose Forman on 12-06-2024 Hemoglobin (Bld) [Mass/Vol] Hemoglobin [Mass/volume] in Blood 11.8-15.4 [facility] Hepatic Panelon 12-06-2024 Albumin [Mass/Vol] 4.1 g/dL Normal 3.5-5.7 [facility] Comment on above: Performed By: #### C BC, HCGQNT, LIPASE, PT, HS TROP, PTT, HEPATIC, BMP ####[place] [address] [address] Albumin/Globulin [Mass ratio] 1.6 {ratio} Normal [facility] Comment on above: Performed By: #### C BC, HCGQNT, LIPASE, PT, HS TROP, PTT, HEPATIC, BMP ####[address] ALP [Catalytic activity/Vol] 47 U/L Normal 34-104 [facility] Comment on above: Performed By: #### C BC, HCGQNT, LIPASE, PT, HS TROP, PTT, HEPATIC, BMP ####[address] ALT [Catalytic activity/Vol] 11 U/L Normal 7-52 [facility] Comment on above: Performed By: #### C BC, HCGQNT, LIPASE, PT, HS TROP, PTT, HEPATIC, BMP ####[address] AST [Catalytic activity/Vol] 12 U/L Low 13-39 [facility] Comment on above: Performed By: #### C BC, HCGQNT, LIPASE, PT, HS TROP, PTT, HEPATIC, BMP ####[address] Bilirubin [Mass/Vol] 0.5 mg/dL Normal 0.3-1.0 [facility] Comment on above: Performed By: #### C BC, HCGQNT, LIPASE, PT, HS TROP, PTT, HEPATIC, BMP ####[address] Bilirubin,Indirect 0.4 mg/dL Normal [facility] Comment on above: Performed By: #### C BC, HCGQNT, LIPASE, PT, HS TROP, PTT, HEPATIC, BMP ####[address] Bilirubin.indirect [Mass/Vol] 0.10 mg/dL Normal 0.03-0.18 [facility] Comment on above: Performed By: #### C BC, HCGQNT, LIPASE, PT, HS TROP, PTT, HEPATIC, BMP ####[address] Globulin (S) [Mass/Vol] 2.6 g/dL Normal [facility] Comment on above: Performed By: #### C BC, HCGQNT, LIPASE, PT, HS TROP, PTT, HEPATIC, BMP ####[facility] [id number] Protein [Mass/Vol] 6.7 g/dL Normal 6.4-8.9 [facility] Comment on above: Performed By: #### C BC, HCGQNT, LIPASE, PT, HS TROP, PTT, HEPATIC, BMP ####[facility] [address] Hyaline casts [#/area] in Ur ine sediment by Automated countOrdered By: Jose Forman on 12-06-2024 Hyaline casts Auto (Urine sed) [#/Area] Hyaline casts [#/area] in Urine sediment by Automated count 0-8 [facility] INR in Platelet poor plasma by Coagulation assayOrdered By: Jose Forman on 12-06-2024 INR Coag (PPP) [Relative time] INR in Platelet poor plasma by Coagulation assay [facility] Comment on above: INR Therapeutic Rang [...] n Urine by Test strip High Negative [facility] Leukocyte esterase [Presence ] in Urine by Test stripOrdered By: Jose Forman on 12-06-2024 Leukocyte esterase Test strip Ql (U) Leukocyte esterase [Presence] in Urine by Test strip Negative [facility] Leukocytes [#/area] in Urine sediment by Automated countOrdered By: Jose Forman on 12-06-2024 WBC Auto (Urine sed) [#/Area] Leukocytes [#/area] in Urine sediment by Automated count 0-4 [facility] Leukocytes [#/volume] correc randolph for nucleated erythrocytes in Blood by Automated counOrdered By: Jose Forman on 12-06-2024 WBC corrected for nucl RBC Auto (Bld) [#/Vol] Leukocytes [#/volume] corrected for nucleated erythrocytes in Blood by Automated coun 3.8-11.6 [facility] Lipaseon 12-06-2024 Lipase [Catalytic activity/Vol] 11.0 U/L Normal 11.0-82.0 [facility] Comment on above: Performed By: #### C BC, HCGQNT, LIPASE, PT, HS TROP, PTT, HEPATIC, BMP ####[facility] [id number] [place] [address] [facility] Lipase [Enzymatic activity/v olume] in Serum or PlasmaOrdered By: Jose Forman on 12-06-2024 Lipase [Catalytic activity/Vol] Lipase [Enzymatic activity/volume] in Serum or Plasma 11.0-82.0 [facility] Lymphocytes Auto (Bld) [#/Vo l]Ordered By: Jose Forman on 12-06-2024 Lymphocytes (Bld) [#/Vol] Lymphocytes [#/volume] in Blood by Automated count 1.00-4.8 [facility] Lymphocytes/100 WBC Auto (Bl d)Ordered By: Jose Forman on 12-06-2024 Lymphocytes/100 WBC (Bld) Lymphocytes/100 leukocytes in Blood by Automated count . [facility] MCH Auto (RBC) [Entitic mass ]Ordered By: Jose Forman on 12-06-2024 MCH (RBC) [Entitic mass] MCH [Entitic mass] by Automated count 24.7-34.3 [facility] MCHC Auto (RBC) [Mass/Vol]Or dered By: Jose Forman on 12-06-2024 MCHC (RBC) [Mass/Vol] MCHC [Mass/volume] by Automated count 32.0-35.0 [facility] MCV Auto (RBC) [Entitic vol] Ordered By: Jose Forman on 12-06-2024 MCV (RBC) [Entitic vol] MCV [Entitic volume] by Automated count Low 80-100 [facility] Monocyte distribution width [Entitic volume] in Blood by AutomatedOrdered By: Jose Forman on 12-06-2024 Monocyte distribution width Auto (Bld) [Entitic vol] Monocyte distribution width [Entitic volume] in Blood by Automated 0.00-20.00 [facility] Monocytes Auto (Bld) [#/Vol] Ordered By: Jose Forman on 12-06-2024 Monocytes (Bld) [#/Vol] Automated blood monocyte count 0.0-0.8 [facility] Monocytes/100 WBC Auto (Bld) Ordered By: Jose Forman on 12-06-2024 Monocytes/100 WBC (Bld) Automated monocyte % . [facility] Mucus [Presence] in Urine by AutomatedOrdered By: Jose Forman on 12-06-2024 Mucus Auto Ql (U) Mucus [Presence] in Urine by Automated [facility] Neutrophils Auto (Bld) [#/Vo l]Ordered By: Jose Forman on 12-06-2024 Neutrophils (Bld) [#/Vol] Neutrophils [#/volume] in Blood by Automated count 1.8-7.7 [facility] Neutrophils/100 WBC Auto (Bl d)Ordered By: Jose Forman on 12-06-2024 Neutrophils/100 WBC (Bld) Automated neutrophil % . [facility] Nitrite Test strip Ql (U)Ord ered By: Jose Forman on 12-06-2024 Nitrite Ql (U) Nitrite [Presence] i n Urine by Test strip Negative [facility] No Panel InformationOrdered By: Jose Forman on 12-06-2024 Estimated GFR (CKD-EPI) > 60.0 mL/Min [facility] Creatinine Clearance (Chem 129.71 [facility] Nucleated erythrocytes [Pres ence] in Blood by Automated countOrdered By: Jose Forman on 12-06-2024 Nucleated RBC Auto Ql (Bld) Nucleated erythrocytes [Presence] in Blood by Automated count 0-0.5 [facility] Partial Thromboplastin Timeo n 12-06-2024 aPTT Coag (Bld) [Time] 28.1 s Normal 25.1-36.5 [facility] Comment on above: Result Comment: A he matocrit value greater than 55% may lead to inaccurate results in coagulation testing. Patients having hematocrit values >55% require a special collection tube for coagulation studies. Please contact the laboratory at [phone] for redraw instructions. PERFORMED BY: [facility] [address] [place] [address] PATHOLOGIST BIG DATA ENGINEER LEÓN GARCIA M.D. Performed By: #### C BC, HCGQNT, LIPASE, PT, HS TROP, PTT, HEPATIC, BMP ####[facility] [id number] [place] [address] [facility] Platelet mean volume Auto (B ld) [Entitic vol]Ordered By: Jose Forman on 12-06-2024 Platelet mean volume (Bld) [Entitic vol] Platelet mean volume [Entitic volume] in Blood by Automated count 6.3-10.7 [facility] Platelets Auto (Bld) [#/Vol] Ordered By: Jose Forman on 12-06-2024 Platelets (Bld) [#/Vol] Platelets [#/volume] in Blood by Automated count 150-450 [facility] Potassium [Moles/volume] in Serum or PlasmaOrdered By: Jose Forman on 12-06-2024 Potassium [Moles/Vol] Potassium [Moles/v olume] in Serum or Plasma 3.5-5.1 [facility] Protein Test strip (U) [Mass /Vol]Ordered By: Jose Forman on 12-06-2024 Protein (U) [Mass/Vol] Protein [Mass/vol ume] in Urine by Test strip High Negative [facility] Protein [Mass/volume] in Ser um or PlasmaOrdered By: Jose Forman on 12-06-2024 Protein [Mass/Vol] Protein [Mass/volume ] in Serum or Plasma 6.4-8.9 [facility] Prothrombin Time INRon 12-06 INR Coag (PPP) [Relative time] 1.1 {INR} Normal [facility] Comment on above: Result Comment: [...] LIPASE, PT, HS TROP, PTT, HEPATIC, BMP ####[facility] [id number] [place] [address] [facility] PT Coag (PPP) [Time] 12.3 s Normal 9.0-12.9 [facility] Comment on above: Result Comment: A he matocrit value greater than 55% may lead to inaccurate results in coagulation testing. Patients having hematocrit values >55% require a special collection tube for coagulation studies. Please contact the laboratory at [phone] for redraw instructions. Performed By: #### C BC, HCGQNT, LIPASE, PT, HS TROP, PTT, HEPATIC, BMP ####[facility] [id number] [place] [address] [facility] Prothrombin time (PT)Ordered By: Jose Forman on 12-06-2024 PT Coag (PPP) [Time] Prothrombin time (PT) 9.0- 12.9 [facility] Comment on above: A hematocrit value g reater than 55% may lead to inaccurate results in coagulation testing. Patients having hematocrit values >55% require a special collection tube for coagulation studies. Please contact the laboratory at [phone] for redraw instructions. RBC Auto (Bld) [#/Vol]Ordere d By: Jose Forman on 12-06-2024 RBC (Bld) [#/Vol] Erythrocytes [#/volu me] in Blood by Automated count 3.60-5.00 [facility] Serum or plasma albumin/glob ulin mass ratioOrdered By: Jose Forman on 12-06-2024 Albumin/Globulin [Mass ratio] Serum or plasma albumin/globulin mass ratio [facility] Serum or plasma anion gap de terminationOrdered By: Jose Forman on 12-06-2024 Anion gap [Moles/Vol] Serum or plasma an ion gap determination 6.0-15.0 [facility] Serum or plasma non-glucuron idated bilirubin measurement (mass/volume)Ordered By: Jose Forman on 12-06-2024 Bilirubin.indirect [Mass/Vol] Serum or plasma non-glucuronidated bilirubin measurement (mass/volume) [facility] Sodium [Moles/volume] in Ser um or PlasmaOrdered By: Jose Forman on 12-06-2024 Sodium [Moles/Vol] Sodium [Moles/volume ] in Serum or Plasma Low 136-145 [facility] Specific gravity Test strip (U) [Rel density]Ordered By: Jose Forman on 12-06-2024 Specific gravity (U) [Rel density] Specific gravity of Urine by Test strip 1.001-1.03 0 [facility] Troponin I High Sensitivityo n 12-06-2024 Troponin I High Sensitivity 3 Normal 0-15 [facility] Comment on above: Result Comment: The Troponin units of report have been changed to meet the Chest Pain Accreditation requirement, element EC5.M1l2. Troponin units are changed from pg/ml to ng/L. Also, the decimal is removed and results are in whole numbers. PERFORMED BY: [place] [address] PATHOLOGIST BIG DATA ENGINEER LEÓN GARCIA M.D. Performed By: #### C BC, HCGQNT, LIPASE, PT, HS TROP, PTT, HEPATIC, BMP ####[facility] [id number] Troponin I.cardiac [Mass/vol ume] in Serum or Plasma by Detection limit <= 0.01 ng/Ordered By: Jose Forman on 12-06-2024 Troponin I.cardiac DL <= 0.01 ng/mL [Mass/Vol] Troponin I.cardiac [Mass/volume] in Serum or Plasma by Detection limit <= 0.01 ng/ 0-15 [facility] Comment on above: The Troponin units o f report have been changed to meet the Chest Pain Accreditation requirement, element EC5.M1l2. Troponin units are changed from pg/ml to ng/L. Also, the decimal is removed and results are in whole numbers. US OB <= 14 weeks fetuson US OB <= 14 weeks fetus [facility] [address] Ultrasound Report Signed Patient: Noris Goetz MR#: [id number] 61 : 1990 Acct:[id number] Age/Sex: 34 / F ADM Date: 12/06/24 Loc: ER Room: Type: [facility] ER Attending Dr: Ordering Provider: Jose Forman DO Date of Service: 12/06/24 US/US OB <= 14 weeks fetus: Abdominal Pain Copies to: Jose Forman DO Obstetrical ultrasound for fetus less than 14 weeks HISTORY: Abdominal pain. Vaginal bleeding COMPARISON: None The heart rate is 126bpm. Ovaries not visualized No free fluid identified in cul-de-sac. No subchorionic hemorrhage identified. Painter-rump length measures 6.4cm consistent with 6 weeks 4 days. The yolk sac is not seen. The estimated due date by this ultrasound is 07/28/2025. US/US OB <= 14 weeks fetus IMPRESSION: Single live anterior gestation 6 weeks 4 days. Impression dictated by: Alfonzo Flores M.D.12/06/2024 9:55 AM Dictation Location: [place] [address] Tech: Antonieta Greenberg Transcribed By: JOSESITO 12/06/24 0955 Dictated By: Alfonzo Flores DO 12/06/24 0954 Signed By: 12/06/2455 Normal [facility] Urea nitrogen [Mass/volume] in Serum or PlasmaOrdered By: Jose Forman on 12-06-2024 Urea nitrogen [Mass/Vol] Urea nitrogen [Mass/volume] in Serum or Plasma 7 [facility] Urobilinogen Test strip (U) [Mass/Vol]Ordered By: Jose Forman on 12-06-2024 Urobilinogen (U) [Mass/Vol] Urobilinogen [Mass/volume] in Urine by Test strip Normal [facility] WBC Auto (Bld) [#/Vol]Ordere d By: Jose Forman on 12-06-2024 WBC (Bld) [#/Vol] Leukocytes [#/volume ] in Blood by Automated count 3.8-11.6 [facility] aPTT in Platelet poor plasma by Coagulation assayOrdered By: Jose Forman on 12-06-2024 aPTT Coag (PPP) [Time] Activated partial thromboplastin time (aPTT) in platelet poor plasma by coagulation a 25.1-36.5 [facility] Comment on above: A hematocrit value g reater than 55% may lead to inaccurate results in coagulation testing. Patients having hematocrit values >55% require a special collection tube for coagulation studies. Please contact the laboratory at [phone] for redraw instructions. pH Test strip (U)Ordered By: Joes Forman on 12-06-2024 pH (U) pH of Urine by Test strip 5.0-9.0 [facility] XR chest 2V*on 08-11-2024 XR chest 2V* [facility] [place] [address] [place] [address] XRay Report Signed Patient: Noris Goetz MR#: [id number] 61 : 1990 Acct:[id number] Age/Sex: 34 / F ADM Date: 08/11/24 Loc: [facility] Room: Type: [facility] Attending Dr: Melissa Reddy QA INTERN Copies to: Melissa Reddy APRN Ordering Provider: [...] Alfonzo Flores M.D.08/11/2024 9:59 AM Dictation Location: [place] [address] Transcribed By: [facility] 08/11/24 0959 Dictated By: Alfonzo Flores DO 08/11/24 0958 Signed By: 08/11/24 0959 Normal [facility] No Panel InformationOrdered By: Derrick Wilson on 08-02-2024 Miscellaneous Pathology Test See comment [facility] Comment on above: See report. Scanned copy available in EMR. Pathology Request for Lab Co rpon 08-02-2024 Pathology Request for Lab Ministerio Normal [facility] Comment on above: Order Comment: PATHO LOGY SKIN SPECIMEN Result Comment: See report. Scanned copy available in EMR. PERFORMED BY: [place] [address] PATHOLOGIST BIG DATA ENGINEER JOAN CROWLEY M.D. Performed By: #### P ATH TO [facility] ####[facility] [id number] [place] [id number] [facility] US extremity nonvascularon 0 05-23-2024 US extremity nonvascular [facility] [place] [address] [place] [address] Ultrasound Report Signed Patient: Noris Goetz MR#: [id number] 61 : 1990 Acct:[id number] Age/Sex: 34 / F ADM Date: 05/23/24 Loc: Room: Type: [facility] Attending Dr: Marianela Oliva MD Ordering Provider: [...] Annel Barnhart M.D.05/23/2024 2:18 PM Dictation Location: [facility]- Tech: Ayleen Hackett Transcribed By: JOSESITO 05/23/24 1418 Dictated By: Annel Barnhart MD 05/23/24 141 Signed By: 05/23/24 1418 Normal [facility] Automated basophil %Ordered By: Mario Perez on 05-17-2024 Basophils/100 WBC (Bld) 0.8 % Normal . [facility] Comment on above: Order Comment: FASTI NG. JKW Performed By: #### P ILLAR TSH, PILLAR CBC, PILLAR BMP, PILLAR LIPID #### [facility] [address] [place] [address] Automated basophil countOrde red By: Mario Perez on 05-17-2024 Basophils (Bld) [#/Vol] 0.0 10*3/uL Normal 0.0-0.2 [facility] Comment on above: Order Comment: FASTI NG. JKW Result Comment: PERF ORMED BY: [place] [address] PATHOLOGIST BIG DATA ENGINEER JOAN CROWLEY M.D. Performed By: #### P ILLAR TSH, PILLAR CBC, PILLAR BMP, PILLAR LIPID #### [address] Automated blood monocyte cou ntOrdered By: Mario Perez on 05-17-2024 Monocytes (Bld) [#/Vol] 0.6 10*3/uL Normal 0.0-0.8 [facility] Comment on above: Order Comment: FASTI NG. JKW Performed By: #### P ILLAR TSH, PILLAR CBC, PILLAR BMP, PILLAR LIPID #### [address] Automated eosinophil %Ordere d By: Mario Perez on 05-17-2024 Eosinophils/100 WBC (Bld) 5.3 % Normal . [facility] Comment on above: Order Comment: FASTI NG. JKW Performed By: #### P ILLAR TSH, PILLAR CBC, PILLAR BMP, PILLAR LIPID #### [facility] [address] [place] [address] Automated eosinophil countOr dered By: Mario Perez on 05-17-2024 Eosinophils (Bld) [#/Vol] 0.3 10*3/uL Normal 0.0-0.45 [facility] Comment on above: Order Comment: FASTI NG. JKW Performed By: #### P ILLAR TSH, PILLAR CBC, PILLAR BMP, PILLAR LIPID #### [facility] [address] [place] [address] [place] Automated monocyte %Ordered By: Mario Perez on 05-17-2024 Monocytes/100 WBC (Bld) 10.8 % Normal . [facility] Comment on above: Order Comment: FASTI NG. JKW Performed By: #### P ILLAR TSH, PILLAR CBC, PILLAR BMP, PILLAR LIPID #### [facility] [address] Automated neutrophil %Ordere d By: Mario Perez on 05-17-2024 Neutrophils/100 WBC (Bld) 55.1 % Normal . [facility] Comment on above: Order Comment: FASTI NG. JKW Performed By: #### P ILLAR TSH, PILLAR CBC, PILLAR BMP, PILLAR LIPID #### [facility] [address] [place] [address] [place] Calcium [Mass/volume] in Ser um or PlasmaOrdered By: Mario Perez on 05-17-2024 Calcium [Mass/Vol] 8.5 mg/dL Low 8.6-10.3 [facility] Comment on above: Order Comment: FASTI NG. JKW Performed By: #### P ILLAR TSH, PILLAR CBC, PILLAR BMP, PILLAR LIPID #### [facility] [address] [place] [address] [place] Carbon dioxide, total [Moles /volume] in Serum or PlasmaOrdered By: Mario Perez on 05-17-2024 CO2 [Moles/Vol] 27.7 mmol/L Normal 21.0-31.0 [facility] Comment on above: Order Comment: FASTI NG. JKW Performed By: #### P ILLAR TSH, PILLAR CBC, PILLAR BMP, PILLAR LIPID #### [facility] [address] [place] [address] [place] Chloride [Moles/volume] in S eamon or PlasmaOrdered By: Mario Perez on 05-17-2024 Chloride [Moles/Vol] 109 mmol/L High 98-107 [facility] Comment on above: Order Comment: RONNIE HollandKW Performed By: #### P ILLAR TSH, PILLAR CBC, PILLAR BMP, PILLAR LIPID #### [facility] [address] Cholesterol [Mass/volume] in Serum or PlasmaOrdered By: Mario Perez on 05-17-2024 Cholesterol [Mass/Vol] 170 mg/dL Normal 140-200 [facility] Comment on above: Chol less than 200 m g/dl low riskChol 201-239 mg/dl borderline riskChol 240 mg/dl and greater high risk Order Comment: RONNIE MAURO JKW Result Comment: Chol less than 200 mg/dl low risk Chol 201-239 mg/dl borderline risk Chol 240 mg/dl and greater high risk Performed By: #### P ILLAR TSH, PILLAR CBC, PILLAR BMP, PILLAR LIPID #### [facility] [address] Cholesterol in LDL Calc [Mas s/Vol]Ordered By: Mario Perez on 05-17-2024 Cholesterol in LDL [Mass/Vol] 109 mg/dL High 0-100 [facility] Comment on above: LDL ATP III CLASSIFI CATIONLDL less than 100 mg/dL OptimalLDL 100-129 mg/dL Near or above optimalLDL 130-159 mg/dL Borderline highLDL 160-189 mg/dL HighLDL greater than 189 mg/dL Very high Cholesterol in VLDL Calc [Ma ss/Vol]Ordered By: Mario Perez on 05-17-2024 Cholesterol in VLDL [Mass/Vol] 10 mg/dL [facility] Creatinine [Mass/volume] in Serum or PlasmaOrdered By: Mario Perez on 05-17-2024 Creatinine [Mass/Vol] 0.73 mg/dL Normal 0.60-1.20 [facility] Comment on above: Order Comment: RONNIE MAURO JKW Performed By: #### P ILLAR TSH, PILLAR CBC, PILLAR BMP, PILLAR LIPID #### [facility] [address] Employee Basic Metabolic Nails anushka 05-17-2024 GFR/1.73 sq M.predicted MDRD (S/P/Bld) [Vol rate/Area] mL/min/{1.73_m2} Normal [facility] Comment on above: Order Comment: FASTI NG. JKW Performed By: #### P ILLAR TSH, PILLAR CBC, PILLAR BMP, PILLAR LIPID #### [facility] [address] Employee Complete Blood Coun ton 05-17-2024 Mean Corpuscular HGB Conc 34.2 g/dL Normal 32.0-35.0 [facility] Comment on above: Order Comment: FASTI NG. JKW Performed By: #### P ILLAR TSH, PILLAR CBC, PILLAR BMP, PILLAR LIPID #### [facility] [address] NRBC% 0.1 /100{WBC} Normal 0-0.5 [facility] Comment on above: Order Comment: FASTI NG. JKW Performed By: #### P ILLAR TSH, PILLAR CBC, PILLAR BMP, PILLAR LIPID #### [facility] [address] Employee Lipid Profileon LDL Cholesterol,Calculated 109 mg/dL High 0-100 [facility] Comment on above: Order Comment: FASTI NG. JKW Result Comment: LDL ATP III CLASSIFICATION LDL less than 100 mg/dL Optimal LDL 100-129 mg/dL Near or above optimal LDL 130-159 mg/dL Borderline high LDL 160-189 mg/dL High LDL greater than 189 mg/dL Very high Performed By: #### P ILLAR TSH, PILLAR CBC, PILLAR BMP, PILLAR LIPID #### [facility] [address] Triglyceride w/Reflex 52 mg/dL Normal 0-149 [facility] Comment on above: Order Comment: [...] PILLAR CBC, PILLAR BMP, PILLAR LIPID #### [address] VLDL CHOLESTEROL 10 mg/dL Normal [facility] Comment on above: Order Comment: FASTI NG. JKW Performed By: #### P ILLAR TSH, PILLAR CBC, PILLAR BMP, PILLAR LIPID #### [address] Employee Thyroid Stim Hormon paulo 05-17-2024 Employee Thyroid Stim Hormone 1.90 u[iU]/mL Normal 0.45-5.33 [facility] Comment on above: Order Comment: FASTI NG. JKW Result Comment: PERF ORMED BY: [place] [address] PATHOLOGIST BIG DATA ENGINEER JOAN CROWLEY M.D. Performed By: #### P ILLAR TSH, PILLAR CBC, PILLAR BMP, PILLAR LIPID #### [address] Erythrocyte distribution wid th [Ratio] by Automated countOrdered By: Mario Perez on 05-17-2024 Erythrocyte distribution width (RBC) [Ratio] 13.7 % Normal 11.9-15.3 [facility] Comment on above: Order Comment: FASTI NG. JKW Performed By: #### P ILLAR TSH, PILLAR CBC, PILLAR BMP, PILLAR LIPID #### [address] Erythrocytes [#/volume] in B lood by Automated countOrdered By: Mario Perez on 05-17-2024 RBC (Bld) [#/Vol] 4.62 10*6/uL Normal 3.60-5.00 [facility] Comment on above: Order Comment: FASTI NG. JKW Performed By: #### P ILLAR TSH, PILLAR CBC, PILLAR BMP, PILLAR LIPID #### [address] Glucose [Mass/volume] in Ser um or PlasmaOrdered By: Mario Perez on 05-17-2024 Glucose [Mass/Vol] 95 mg/dL Normal 70-100 [facility] Comment on above: Order Comment: FASTJoni COBIAN. JKW Performed By: #### P ILLAR TSH, PILLAR CBC, PILLAR BMP, PILLAR LIPID #### [facility] [address] Hematocrit [Volume Fraction] of Blood by Automated countOrdered By: Mario Perez on 05-17-2024 Hematocrit (Bld) [Volume fraction] 36.7 % Normal 34.0-46.4 [facility] Comment on above: Order Comment: FASTI ARANZA. JKW Performed By: #### P ILLAR TSH, PILLAR CBC, PILLAR BMP, PILLAR LIPID #### [place] [address] [place] Hemoglobin [Mass/volume] in BloodOrdered By: Mario Perez on 05-17-2024 Hemoglobin (Bld) [Mass/Vol] 12.6 g/dL Normal 11.8-15.4 [facility] Comment on above: Order Comment: FASTI ARANZA. JKW Performed By: #### P ILLAR TSH, PILLAR CBC, PILLAR BMP, PILLAR LIPID #### [facility] [address] [place] [address] [place] Leukocytes [#/volume] correc randolph for nucleated erythrocytes in Blood by Automated counOrdered By: Mario Perez on 05-17-2024 WBC corrected for nucl RBC Auto (Bld) [#/Vol] 5.1 10*3/uL 3.8-11.6 [facility] Leukocytes [#/volume] in Blo od by Automated countOrdered By: Mario Perez on 05-17-2024 WBC (Bld) [#/Vol] 5.1 10*3/uL Normal 3.8-11.6 [facility] Comment on above: Order Comment: FASTI ARANZA. JKW Performed By: #### P ILLAR TSH, PILLAR CBC, PILLAR BMP, PILLAR LIPID #### [facility] [address] [place] [address] [place] Lymphocytes [#/volume] in Bl ood by Automated countOrdered By: Mario Perez on 05-17-2024 Lymphocytes (Bld) [#/Vol] 1.4 10*3/uL Normal 1.00-4.8 [facility] Comment on above: Order Comment: RONNIE MAURO JKW Performed By: #### P ILLAR TSH, PILLAR CBC, PILLAR BMP, PILLAR LIPID #### [facility] [address] [place] [address] [place] Lymphocytes/100 leukocytes i n Blood by Automated countOrdered By: Mario Perez on 05-17-2024 Lymphocytes/100 WBC (Bld) 28.0 % Normal . [facility] Comment on above: Order Comment: RONNIE HollandKW Performed By: #### P ILLAR TSH, PILLAR CBC, PILLAR BMP, PILLAR LIPID #### [facility] [address] MCH [Entitic mass] by Automa randolph countOrdered By: Mario Perez on 05-17-2024 MCH (RBC) [Entitic mass] 27.2 pg Normal 24.7-34.3 [facility] Comment on above: Order Comment: RONNIE HollandKW Performed By: #### P ILLAR TSH, PILLAR CBC, PILLAR BMP, PILLAR LIPID #### [facility] [address] [place] [address] MCHC Auto (RBC) [Mass/Vol]Or dered By: Mario Perez on 05-17-2024 MCHC (RBC) [Mass/Vol] 34.2 g/dL 32.0-35.0 [facility] MCV [Entitic volume] by Auto mated countOrdered By: Mario Perez on 05-17-2024 MCV (RBC) [Entitic vol] 79.4 fL Low 80-100 [facility] Comment on above: Order Comment: RONNIE MAURO JKW Performed By: #### P ILLAR TSH, PILLAR CBC, PILLAR BMP, PILLAR LIPID #### [facility] [address] [place] [address] [place] Neutrophils [#/volume] in Bl ood by Automated countOrdered By: Mario Perez on 05-17-2024 Neutrophils (Bld) [#/Vol] 2.8 10*3/uL Normal 1.8-7.7 [facility] Comment on above: Order Comment: FASTI NG. JKW Performed By: #### P ILLAR TSH, PILLAR CBC, PILLAR BMP, PILLAR LIPID #### [facility] [address] [place] [address] No Panel InformationOrdered By: Mario Perez on 05-17-2024 Estimated GFR (CKD-EPI) > 60.0 mL/Min [facility] Creatinine Clearance (Chem N/A [facility] Nucleated erythrocytes [Pres ence] in Blood by Automated countOrdered By: Mario Perez on 05-17-2024 Nucleated RBC Auto Ql (Bld) 0.1 /100{WBC} 0-0.5 [facility] Platelet mean volume [Entiti c volume] in Blood by Automated countOrdered By: Mario Perez on 05-17-2024 Platelet mean volume (Bld) [Entitic vol] 8.9 fL Normal 6.3-10.7 [facility] Comment on above: Order Comment: FASTI NG. JKW Performed By: #### P ILLAR TSH, PILLAR CBC, PILLAR BMP, PILLAR LIPID #### [address] Platelets [#/volume] in Bloo d by Automated countOrdered By: Mario Perez on 05-17-2024 Platelets (Bld) [#/Vol] 192 10*3/uL Normal 150-450 [facility] Comment on above: Order Comment: FASTI NG. JKW Performed By: #### P ILLAR TSH, PILLAR CBC, PILLAR BMP, PILLAR LIPID #### [facility] [address] [place] [address] Potassium [Moles/volume] in Serum or PlasmaOrdered By: Mario Perez on 05-17-2024 Potassium [Moles/Vol] 3.9 mmol/L Normal 3.5-5.1 [facility] Comment on above: Order Comment: FASTI NG. JKW Performed By: #### P ILLAR TSH, PILLAR CBC, PILLAR BMP, PILLAR LIPID #### [facility] [address] Serum or plasma anion gap de terminationOrdered By: Mario Perez on 05-17-2024 Anion gap [Moles/Vol] 7.2 mmol/L Normal 6.0-15.0 [facility] Comment on above: Order Comment: RONNIE COBIAN. JKW Performed By: #### P ILLAR TSH, PILLAR CBC, PILLAR BMP, PILLAR LIPID #### [facility] [address] Serum or plasma high density lipoprotein (HDL) cholesterol measurementOrdered By: Mario Perez on 05-17-2024 Cholesterol in HDL [Mass/Vol] 51 mg/dL Normal 23-92 [facility] Comment on above: HDL CHOL ATP-III CLA SSIFICATION Cardiovascular RiskHDL > or equal to 60 mg/dL LOWHDL < 40 mg/dL HIGH Order Comment: FASTJoni COBIAN. JKW Result Comment: HDL CHOL ATP-III CLASSIFICATION Cardiovascular Risk HDL > or equal to 60 mg/dL LOW HDL < 40 mg/dL HIGH Performed By: #### P ILLAR TSH, PILLAR CBC, PILLAR BMP, PILLAR LIPID #### [facility] [address] [place] [address] Serum or plasma total choles terol/high density lipoprotein (HDL) cholesterol mass ratOrdered By: Mario Perez on 05-17-2024 Cholesterol.total/Chol esterol in HDL [Mass ratio] 3.3 {ratio} Normal <5.0 [facility] Comment on above: Order Comment: RONNIE COBIAN. JKW Performed By: #### P ILLAR TSH, PILLAR CBC, PILLAR BMP, PILLAR LIPID #### [facility] [address] [place] [address] Sodium [Moles/volume] in Ser um or PlasmaOrdered By: Mario Perez on 05-17-2024 Sodium [Moles/Vol] 140 mmol/L Normal 136-145 [facility] Comment on above: Order Comment: RONNIE COBIAN. JKW Performed By: #### P ILLAR TSH, PILLAR CBC, PILLAR BMP, PILLAR LIPID #### [facility] [address] Thyrotropin [Units/volume] i n Serum or PlasmaOrdered By: Mario Perez on 05-17-2024 TSH Qn 1.90 m[IU]/L 0.45-5.33 [facility] Triglyceride [Mass/volume] i n Serum or PlasmaOrdered By: Mario Perez on 05-17-2024 Triglyceride [Mass/Vol] 52 mg/dL 0-149 [facility] Comment on above: TRIG ATP III CLASSIF ICATIONTRIG less than 150 mg/dL NormalTRIG 150-199 mg/dL Borderline highTRIG 200-500 mg/dL High TRIG greater than 500 mg/dL Very highStandard traceable to the Center for Disease Conrtrol and Prevention (CDC) test method. Urea nitrogen [Mass/volume] in Serum or PlasmaOrdered By: Mario Perez on 05-17-2024 Urea nitrogen [Mass/Vol] 15 mg/dL Normal 05-11 [facility] Comment on above: Order Comment: RONNIE COBIAN. JKW Performed By: #### P ILLAR TSH, PILLAR CBC, PILLAR BMP, PILLAR LIPID #### [facility] [address] Alanine aminotransferase [En zymatic activity/volume] in Serum or PlasmaOrdered By: Mario Perez on 07-12-2023 ALT [Catalytic activity/Vol] 14 U/L 7 [facility] Albumin [Mass/volume] in Ser um or Plasma by Bromocresol green (BCG) dye binding methoOrdered By: Mario Perez on 07-12-2023 Albumin BCG dye [Mass/Vol] 4.2 g/dL 3.5-5.7 [facility] Alkaline phosphatase [Enzyma tic activity/volume] in Serum or PlasmaOrdered By: Mario Perez on 07-12-2023 ALP [Catalytic activity/Vol] 45 U/L 34-104 [facility] Aspartate aminotransferase [ Enzymatic activity/volume] in Serum or PlasmaOrdered By: Mario Perez on 07-12-2023 AST [Catalytic activity/Vol] 15 U/L 13-39 [facility] Bilirubin.total [Mass/volume ] in Serum or PlasmaOrdered By: Mario Perez on 07-12-2023 Bilirubin [Mass/Vol] 0.4 mg/dL 0.3-1.0 [facility] Calcium [Mass/volume] in Ser um or PlasmaOrdered By: Mario Perez on 07-12-2023 Calcium [Mass/Vol] 8.9 mg/dL 8.6-10.3 [facility] Carbon dioxide, total [Moles /volume] in Serum or PlasmaOrdered By: Mario Perez on 07-12-2023 CO2 [Moles/Vol] 28.7 mmol/L 21.0-31.0 [facility] Chloride [Moles/volume] in S eamon or PlasmaOrdered By: Mario Perez on 07-12-2023 Chloride [Moles/Vol] 106 mmol/L 98-107 [facility] Cholesterol [Mass/volume] in Serum or PlasmaOrdered By: Mario Perez on 07-12-2023 Cholesterol [Mass/Vol] 194 mg/dL 140-200 [facility] Comment on above: Chol less than 200 m g/dl low riskChol 201-239 mg/dl borderline riskChol 240 mg/dl and greater high risk Cholesterol in LDL Calc [Mas s/Vol]Ordered By: Mario Perez on 07-12-2023 Cholesterol in LDL [Mass/Vol] 119 mg/dL 0-100 [facility] Comment on above: LDL ATP III CLASSIFI CATIONLDL less than 100 mg/dL OptimalLDL 100-129 mg/dL Near or above optimalLDL 130-159 mg/dL Borderline highLDL 160-189 mg/dL HighLDL greater than 189 mg/dL Very high Cholesterol in VLDL Calc [Ma ss/Vol]Ordered By: Mario Perez on 07-12-2023 Cholesterol in VLDL [Mass/Vol] 12 mg/dL [facility] Creatinine [Mass/volume] in Serum or PlasmaOrdered By: Mario Perez on 07-12-2023 Creatinine [Mass/Vol] 0.78 mg/dL 0.60-1.20 [facility] Globulin Calc (S) [Mass/Vol] Ordered By: Mario Perez on 07-12-2023 Globulin (S) [Mass/Vol] 2.2 g/dL [facility] Glucose [Mass/volume] in Ser um or PlasmaOrdered By: Mario Perez on 07-12-2023 Glucose [Mass/Vol] 99 mg/dL 70-100 [facility] No Panel InformationOrdered By: Mario Perez on 07-12-2023 Estimated GFR (CKD-EPI) > 60.0 mL/Min [facility] Creatinine Clearance (Chem N/A [facility] Potassium [Moles/volume] in Serum or PlasmaOrdered By: Mario Perez on 07-12-2023 Potassium [Moles/Vol] 4.3 mmol/L 3.5-5.1 [facility] Protein [Mass/volume] in Ser um or PlasmaOrdered By: Mario Perez on 07-12-2023 Protein [Mass/Vol] 6.4 g/dL 6.4-8.9 [facility] Serum or plasma albumin/glob ulin mass ratioOrdered By: Mario Perez on 07-12-2023 Albumin/Globulin [Mass ratio] 1.9 {ratio} [facility] Serum or plasma anion gap de terminationOrdered By: Mario Perez on 07-12-2023 Anion gap [Moles/Vol] 8.6 mmol/L 6.0-15.0 [facility] Serum or plasma high density lipoprotein (HDL) cholesterol measurementOrdered By: Mario Perez on 07-12-2023 Cholesterol in HDL [Mass/Vol] 63 mg/dL 23-92 [facility] Comment on above: HDL CHOL ATP-III CLA SSIFICATION Cardiovascular RiskHDL > or equal to 60 mg/dL LOWHDL < 40 mg/dL HIGH Serum or plasma total choles terol/high density lipoprotein (HDL) cholesterol mass ratOrdered By: Mario Perez on 07-12-2023 Cholesterol.total/Chol esterol in HDL [Mass ratio] 3.1 {ratio} <5.0 [facility] Sodium [Moles/volume] in Ser um or PlasmaOrdered By: Mario Perez on 07-12-2023 Sodium [Moles/Vol] 139 mmol/L 136-145 [facility] Triglyceride [Mass/volume] i n Serum or PlasmaOrdered By: Mario Perez on 07-12-2023 Triglyceride [Mass/Vol] 61 mg/dL 0-149 [facility] Comment on above: TRIG ATP III CLASSIF ICATIONTRIG less than 150 mg/dL NormalTRIG 150-199 mg/dL Borderline highTRIG 200-500 mg/dL High TRIG greater than 500 mg/dL Very highStandard traceable to the Center for Disease Conrtrol and Prevention (CDC) test method. Urea nitrogen [Mass/volume] in Serum or PlasmaOrdered By: Mario Perez on 07-12-2023 Urea nitrogen [Mass/Vol] 13 mg/dL 7-25 [facility] Human papilloma virus 16+18+ 31+33+35+39+45+51+52+56+58+59+66+68 DNA [Presence] in CerOrdered By: MARISSA GARCIA on 12-15-2022 HPV 16+18+31+33+35+39+45+5 1+52+56+58+59+66+68 DNA Probe+sig amp Ql (Cvx) Negative Negative [facility] Comment on above: This nucleic acid am plification test detects fourteen high- risk HPV types (16,18,31,33,35,39,45,51,52,56,58,59,66,68)without differentiation.Performed at: [facility] - [facility] [id number] Director: Azalea Quezada MD, Phone: [phone] at: =G - [facility] [address] [id number] Director: Azalea Quezada MD, Phone: [phone] No Panel InformationOrdered By: MARISSA GARCIA on 12-15-2022 IG Pap w/Ct-Ng & HPV Rflx (Off-Site Note . [facility] Comment on above: TESTS RESULT FLAG UN ITS REF RANGE LAB Clinician Provided Cytology Information No. of containers..01 ThinPrep VialDIAGNOSIS: 01 NEGATIVE FOR INTRAEPITHELIAL LESION OR MALIGNANCY.Specimen adequacy: 01 Satisfactory for evaluation. Endocervical and/or squamous metaplastic cells (endocervical component) are present.Performed by: Balbir Garcia, Bolt Threader ([facility]). 01Note: Note 01 The Pap smear is [...] High <-Panic Low,>-Panic High,A-Abnormal,AA-Critical Abnormal -----Performed at:[address] [place] [address] Azalea Quezada MD, Albumin [Mass/volume] in Ser um or PlasmaOrdered By: Marianela Oliva on 06-26-2022 Albumin [Mass/Vol] 3.8 g/dL 3.2-5.5 [facility] Basophils Auto (Bld) [#/Vol] Ordered By: Marianela Oliva on 06-26-2022 Basophils (Bld) [#/Vol] 0.0 10*3/uL 0.0-0.2 [facility] Basophils/100 WBC Auto (Bld) Ordered By: Marianela Oliva on 06-26-2022 Basophils/100 WBC (Bld) 0.7 % . [facility] Cholesterol [Mass/volume] in Serum or PlasmaOrdered By: Marianela Oliva on 06-26-2022 Cholesterol [Mass/Vol] 177 mg/dL 140-200 [facility] Comment on above: Chol less than 200 m g/dl low riskChol 201-239 mg/dl borderline riskChol 240 mg/dl and greater high risk Cholesterol in LDL Calc [Mas s/Vol]Ordered By: Marianela Oliva on 06-26-2022 Cholesterol in LDL [Mass/Vol] 118 mg/dL 0-100 [facility] Comment on above: LDL ATP III CLASSIFI CATIONLDL less than 100 mg/dL OptimalLDL 100-129 mg/dL Near or above optimalLDL 130-159 mg/dL Borderline highLDL 160-189 mg/dL HighLDL greater than 189 mg/dL Very high Cholesterol in VLDL Calc [Ma ss/Vol]Ordered By: Marianela Oliva on 06-26-2022 Cholesterol in VLDL [Mass/Vol] 10 mg/dL [facility] Creatinine and Glomerular fi ltration rate.predicted panel (S/P/Bld)Ordered By: Marianela Oliva on 06-26-2022 Creatinine [Mass/Vol] 0.77 mg/dL 0.44-1.03 [facility] Eosinophils Auto (Bld) [#/Vo l]Ordered By: Marianela Oliva on 06-26-2022 Eosinophils (Bld) [#/Vol] 0.2 10*3/uL 0.0-0.45 [facility] Eosinophils/100 WBC Auto (Bl d)Ordered By: Marianela Oliva on 06-26-2022 Eosinophils/100 WBC (Bld) 4.1 % . [facility] Erythrocyte distribution wid th Auto (RBC) [Ratio]Ordered By: Marianela Oliva on 06-26-2022 Erythrocyte distribution width (RBC) [Ratio] 13.1 % 11.9-15.3 [facility] Estimated glomerular filtrat ion rate (GFR) non- AmericanOrdered By: Marianela Oliva on 06-26-2022 GFR/1.73 sq M.predicted among non-blacks MDRD (S/P/Bld) [Vol rate/Area] > 60 mL/Min [facility] Globulin Calc (S) [Mass/Vol] Ordered By: Marianela Oliva on 06-26-2022 Globulin (S) [Mass/Vol] 2.3 g/dL [facility] Hematocrit Auto (Bld) [Volum e fraction]Ordered By: Marianela Oliva on 06-26-2022 Hematocrit (Bld) [Volume fraction] 38.9 % 34.0-46.4 [facility] Hemoglobin [Mass/volume] in BloodOrdered By: Marianela Oliva on 06-26-2022 Hemoglobin (Bld) [Mass/Vol] 13.1 g/dL 11.8-15.4 [facility] Laboratory - Chemistry and C hemistry - challengeOrdered By: Marianela Oliva on 06-26-2022 Glucose [Mass/Vol] 98 mg/dL 70-100 [facility] Laboratory - Hematology and Cell countsOrdered By: Marianela Oliva on 06-26-2022 Nucleated RBC/100 WBC (Bld) [Ratio] 0.0 % 0-0.5 [facility] Leukocytes [#/volume] in Blo od by Automated countOrdered By: Marianela Oliva on 06-26-2022 WBC (Bld) [#/Vol] 4.3 10*3/uL 4.5-11.0 [facility] Lymphocytes Auto (Bld) [#/Vo l]Ordered By: Marianela Oliva on 06-26-2022 Lymphocytes (Bld) [#/Vol] 1.5 10*3/uL 1.00-4.8 [facility] Lymphocytes/100 WBC Auto (Bl d)Ordered By: Marianela Oliva on 06-26-2022 Lymphocytes/100 WBC (Bld) 35.2 % . [facility] MCH Auto (RBC) [Entitic mass ]Ordered By: Marianela Oliva on 06-26-2022 MCH (RBC) [Entitic mass] 27.3 pg 24.7-34.3 [facility] MCHC Auto (RBC) [Mass/Vol]Or dered By: Marianela Oliva on 06-26-2022 MCHC (RBC) [Mass/Vol] 33.7 g/dL 32.0-35.0 [facility] MCV Auto (RBC) [Entitic vol] Ordered By: Marianela Oliva on 06-26-2022 MCV (RBC) [Entitic vol] 81.1 fL 80-100 [facility] Monocyte %Ordered By: Marianela Oliva on 06-26-2022 Monocyte % 52 mg/dL 35-149 [facility] Comment on above: TRIG ATP III CLASSIF ICATIONTRIG less than 150 mg/dL NormalTRIG 150-199 mg/dL Borderline highTRIG 200-500 mg/dL High TRIG greater than 500 mg/dL Very highStandard traceable to the Center for Disease Conrtrol and Prevention (CDC) test method. Monocytes Auto (Bld) [#/Vol] Ordered By: Marianela Oliva on 06-26-2022 Monocytes (Bld) [#/Vol] 0.5 10*3/uL 0.0-0.8 [facility] Monocytes/100 WBC Auto (Bld) Ordered By: Marianela Oliva on 06-26-2022 Monocytes/100 WBC (Bld) 11.0 % . [facility] Neutrophils Auto (Bld) [#/Vo l]Ordered By: Marianela Oliva on 06-26-2022 Neutrophils (Bld) [#/Vol] 2.1 10*3/uL 1.8-7.7 [facility] Neutrophils/100 WBC Auto (Bl d)Ordered By: Marianela Oliva on 06-26-2022 Neutrophils/100 WBC (Bld) 49.0 % . [facility] No Panel InformationOrdered By: Marianela Oliva on 06-26-2022 Estimated GFR () > 60 mL/Min [facility] Comment on above: GFR estimated refere nce range: According to KDOQI guidelines, <60 ml/min/1.73m2 is sufficient to diagnose a patient with chronic kidney disease. Nicotine Metabolite Negative Cutoff=25 [facility] Comment on above: Performed at: [address] [id number] Director: George García MD, Phone: [phone] Pharmacy Creatinine Clearance (Chem N/A [facility] Platelet mean volume Auto (B ld) [Entitic vol]Ordered By: Marianela Oliva on 06-26-2022 Platelet mean volume (Bld) [Entitic vol] 9.7 fL 6.3-10.7 [facility] Platelets Auto (Bld) [#/Vol] Ordered By: Marianela Oliva on 06-26-2022 Platelets (Bld) [#/Vol] 191 10*3/uL 150-450 [facility] Protein [Mass/volume] in Ser um or PlasmaOrdered By: Marianela Oliva on 06-26-2022 Protein [Mass/Vol] 6.1 g/dL 6.1-7.9 [facility] RBC Auto (Bld) [#/Vol]Ordere d By: Marianela Oliva on 06-26-2022 RBC (Bld) [#/Vol] 4.80 10*6/uL 3.60-5.00 [facility] Serum or plasma alanine carvalho otransferase measurement without P-5'-P (enzymatic activiOrdered By: Marianela Oliva on 06-26-2022 ALT No additional P-5'-P [Catalytic activity/Vol] 17 U/L 10-60 [facility] Serum or plasma albumin/glob ulin mass ratioOrdered By: Marianela Oliva on 06-26-2022 Albumin/Globulin [Mass ratio] 1.7 {ratio} [facility] Serum or plasma alkaline rad sphatase measurement (enzymatic activity/volume)Ordered By: Marianela Oliva on 06-26-2022 ALP [Catalytic activity/Vol] 46 U/L 32-92 [facility] Serum or plasma anion gap de terminationOrdered By: Marianela Oliva on 06-26-2022 Anion gap [Moles/Vol] 8.1 mmol/L 6.0-15.0 [facility] Serum or plasma aspartate am inotransferase measurement (enzymatic activity/volume)Ordered By: Marianela Oliva on 06-26-2022 AST [Catalytic activity/Vol] 18 U/L 10-42 [facility] Serum or plasma calcium richy urement (mass/volume)Ordered By: Marianela Oliva on 06-26-2022 Calcium [Mass/Vol] 9.0 mg/dL 8.2-10.2 [facility] Serum or plasma chloride alma surement (moles/volume)Ordered By: Marianela Oliva on 06-26-2022 Chloride [Moles/Vol] 106 mmol/L 95-114 [facility] Serum or plasma high density lipoprotein (HDL) cholesterol measurementOrdered By: Marianela Oliva on 06-26-2022 Cholesterol in HDL [Mass/Vol] 49 mg/dL 35-85 [facility] Comment on above: HDL CHOL ATP-III CLA SSIFICATION Cardiovascular RiskHDL > or equal to 60 mg/dL LOWHDL < 40 mg/dL HIGH Serum or plasma potassium me asurement (moles/volume)Ordered By: Marianela Oliva on 06-26-2022 Potassium [Moles/Vol] 4.1 mmol/L 3.5-5.1 [facility] Serum or plasma sodium measu rement (moles/volume)Ordered By: Marianela Oliva on 06-26-2022 Sodium [Moles/Vol] 137 mmol/L 136-146 [facility] Serum or plasma total biliru bin measurement (mass/volume)Ordered By: Marianela Oliva on 06-26-2022 Bilirubin [Mass/Vol] 0.6 mg/dL 0.3-1.2 [facility] Serum or plasma total carbon dioxide measurement (moles/volume)Ordered By: Marianela Oliva on 06-26-2022 CO2 [Moles/Vol] 27.0 mmol/L 22.0-30.0 [facility] Serum or plasma total choles terol/high density lipoprotein (HDL) cholesterol mass ratOrdered By: Marianela Oliva on 06-26-2022 Cholesterol.total/Chol esterol in HDL [Mass ratio] 3.6 {ratio} <5.0 [facility] Serum or plasma urea nitroge n measurement (mass/volume)Ordered By: Marianela Oliva on 06-26-2022 Urea nitrogen [Mass/Vol] 14 mg/dL 9- [facility] TSH DL <= 0.005 mIU/L QnOrde red By: Marianela Oliva on 06-26-2022 TSH Qn 1.33 m[IU]/L 0.45-5.33 [facility] [employer] Dipstick & Microscopic No [employer]Class [employer] Other Urine 10 SGon 01-07-2022 Albumin DL <= 20 mg/L (U) [Mass/Vol] 100 mg/dL [employer] Other Albumin DL <= 20 mg/L (U) [Mass/Vol] Large [employer] Other pH (U) 6.0 [pH] [employer] Other Urine 10 SG Negative [employer] Other Urine 10 SG 1.030 [employer] Other Urine 10 SG Large [employer] Other Urine 10 SG 0.2 [employer] Other Urine 10 SG Positive [employer] Other Urine Cultureon 01-07-2022 Urine Culture >100,000 [employer] Other Urine Culture <16 Susceptible [employer] Other Urine Culture <8 Susceptible [employer] Other Urine Culture <4 Susceptible [employer] Other Urine Culture <2 Susceptible [employer] Other Urine Culture <1 Susceptible [employer] Other Urine Culture <0.5 Susceptible [employer] Other Urine Culture <32 Susceptible [employer] Other Urine Culture <2/38 Susceptible [employer] Other Cult,Urine,CCon 12-24-2018 Cult,Urine,CC Specimen Description .URINE Special Requests .CLEAN CATCH URINE Culture NO GROWTH Report Status FINAL 12/24/2018 Normal [facility] Comment on above: Performed By: #### C PDAU #### [facility] [address] [place] [address] Chlamydia/GC DNA, Uron 12-23 Protein mass conc Negative Normal NEG [facility] Comment on above: Result Comment: NEIS [...] target. Performed By: #### C PDAU #### [address] [place] [address] Result Comment: CHLA MYDIA TRACHOMATIS DNA not [...] HIV Ag/Abon 12-23-2018 HIV Ag/Ab NONREACTIVE Normal [facility] Comment on above: Result Comment: No l aboratory evidence of HIV infection. If acute HIV infection is suspected, consider testing for HIV-1 RNA. Performed By: #### C PDAU #### [address] [place] [address] Hep C Abon 12-23-2018 Hep C Ab NONREACTIVE Normal NR [facility] Comment on above: Result Comment: The hepatitis [...] PCR. Performed By: #### C PDAU #### [address] [place] [address] Profileon 9 T.pallidum Ab Screen NONREACTIVE Normal NR [facility] Comment on above: Result Comment: T. pallidum antibodies are not detected. There is no serological evidence of infection with T. pallidum (early primary syphilis cannot be excluded). Retest in 2-4 weeks if syphilis is clinically suspect. Performed By: #### C PDAU #### [address] [place] [address] Hep B Surf Ag NONREACTIVE Normal NR [facility] Comment on above: Performed By: #### C PDAU #### [address] [place] [id number] Rubella Ab, IgG 52.3 IU/mL Normal [facility] Comment on above: Result Comment: REFERENCE RANGE: <5.0 NON-REACTIVE (non-immune) 5.0 TO 9.9 EQUIVOCAL >=10.0 REACTIVE (immune) Performed By: #### C PDAU #### [address] [place] [address] Profileon 9 Abs. Basophil <0.03 Normal 0.00-0.20 [facility] Comment on above: Performed By: #### C PDAU #### [address] [place] [address] Abs.Imm.Granulocyte 0.04 k/uL Normal 0.00-0.30 [facility] Comment on above: Performed By: #### C PDAU #### [address] [place] [address] Abs.Neutrophil (Seg) 4.44 k/uL Normal 1.50-8.10 [facility] Comment on above: Performed By: #### C PDAU #### [address] [place] [phone] Basophils/100 WBC (Bld) 0 % Normal 0-2 [facility] Comment on above: Performed By: #### C PDAU #### [address] [address] Eosinophils #/vol (Bld) 0.08 10*3/uL Normal 0.00-0.44 [facility] Comment on above: Performed By: #### C PDAU #### [address] [place] [address] Eosinophils/100 WBC (Bld) 1 % Normal 1-4 [facility] Comment on above: Performed By: #### C PDAU #### [address] [place] [address] Erythrocyte distribution width Ratio (RBC) 13.2 % Normal 11.8-14.4 [facility] Comment on above: Performed By: #### C PDAU #### [address] [place] [address] Hematocrit Volume Fraction (Bld) 35.3 % Low 36.3-47.1 [facility] Comment on above: Performed By: #### C PDAU #### [address] [place], [facility] Hemoglobin mass conc (Bld) 11.4 g/dL Low 11.9-15.1 [facility] Comment on above: Performed By: #### C PDAU #### [address] [place] [address] Immature granulocytes #/vol (Bld) 1 % High 0 [facility] Comment on above: Performed By: #### C PDAU #### [address] [place] [address] Lymphocytes #/vol (Bld) 1.70 10*3/uL Normal 1.10-3.70 [facility] Comment on above: Performed By: #### C PDAU #### [address] [place] [address] Lymphocytes/100 WBC (Bld) 25 % Normal 24-43 [facility] Comment on above: Performed By: #### C PDAU #### [address] [place] [address] MCH Entitic mass (RBC) 26.5 pg Normal 25.2-33.5 [facility] Comment on above: Performed By: #### C PDAU #### [address] [place] [address] MCHC mass conc (RBC) 32.3 g/dL Normal 28.4-34.8 [facility] Comment on above: Performed By: #### C PDAU #### [address] [place] [address] MCV Entitic volume (RBC) 82.1 fL Low 82.6-102.9 [facility] Comment on above: Performed By: #### C PDAU #### [address] [place] [address] Monocytes #/vol (Bld) 0.66 10*3/uL Normal 0.10-1.20 [facility] Comment on above: Performed By: #### C PDAU #### [address] [place] [address] Monocytes/100 WBC (Bld) 10 % Normal 3-12 [facility] Comment on above: Performed By: #### C PDAU #### [address] [place] [address] Neutrophil (Seg) 63 % Normal 36-65 [facility] Comment on above: Performed By: #### C PDAU #### [address] [place] [address] NRBC Automated 0.0 per 100 WBC Normal 0.0 [facility] Comment on above: Performed By: #### C PDAU #### [address] [place] [address] Platelet mean volume Entitic volume (Bld) 10.8 fL Normal 8.1-13.5 [facility] Comment on above: Performed By: #### C PDAU #### [address] [place] [address] Platelets #/vol (Bld) 298 10*3/uL Normal 138-453 [facility] Comment on above: Performed By: #### C PDAU #### [address] [place] [address] RBC #/vol (Bld) 4.30 10*6/uL Normal 3.95-5.11 [facility] Comment on above: Performed By: #### C PDAU #### [address] [place] [address] WBC #/vol (Bld) 6.9 10*3/uL Normal 3.5-11.3 [facility] Comment on above: Performed By: #### C PDAU #### [address] [place] [address] Auto Diff Performed NOT REPORTED Normal [facility] Comment on above: Performed By: #### C PDAU #### [address] [place] [address] Platelets #/vol (Bld) NOT REPORTED Normal [facility] Comment on above: Performed By: #### C PDAU #### [address] [place] [address] RBC morphology finding Nom (Bld) NOT REPORTED Normal [facility] Comment on above: Performed By: #### C PDAU #### [address] [place] [address] WBC Morphology NOT REPORTED Normal [facility] Comment on above: Performed By: #### C PDAU #### [address] [place] [address] Type + Scrnon 12-22 Type + Scrn Negative Normal [facility] Comment on above: Performed By: #### C PDAU #### [address] [place] [address] Toxicology Scree, Urineon Amphetamine(s),Ur Negative Normal [facility] Comment on above: Performed By: #### C PDAU #### [address] [place] [address] Barbiturate(s),Ur Negative Normal NEG [facility] Comment on above: Performed By: #### C PDAU #### [address] [place] [address] Benzodiazepine(s) Negative Normal [facility] Comment on above: Performed By: #### C PDAU #### [address] [place] [address] Buprenorphrine, Ur Negative Normal [facility] Comment on above: Performed By: #### C PDAU #### [address] [place] [address] Cannabinoid(s),Ur Negative Normal [facility] Comment on above: Performed By: #### C PDAU #### [address] [place] [address] Cocaine Metabolite Negative Normal [facility] Comment on above: Performed By: #### C PDAU #### [address] [place] [address] Methadone Ql (U) Negative Normal [facility] Comment on above: Performed By: #### C PDAU #### [address] [place] [address] Methamphetamine, Ur Negative Normal [facility] Comment on above: Performed By: #### C PDAU #### [address] [place] [address] Opiate(s), Ur Negative Normal NEG [facility] Comment on above: Performed By: #### C PDAU #### [address] [place] [address] Oxycodone, Urine Negative Normal NEG [facility] Comment on above: Performed By: #### C PDAU #### [address] [place] [address] Phencyclidine, Ur Negative Normal NEG [facility] Comment on above: Performed By: #### C PDAU #### [address] [place] [address] Protein mass conc (U) Negative Normal NEG [facility] Comment on above: Performed By: #### C PDAU #### [address] [place] [address] Tricyclic antidepressants Screen Ql (U) Negative Normal NEG [facility] Comment on above: Result Comment: Drug screen results are to be used for medical purposes only. All positive results are unconfirmed. Testing for employment or legal uses should be sent to a reference laboratory for confirmation. Performed By: #### C PDAU #### [address] [place] [address] Interpretive Info NOT REPORTED Normal [facility] Comment on above: Performed By: #### C PDAU #### [address] [place] [address] MDMA, Urine NOT REPORTED Normal NEG [facility] Comment on above: Performed By: #### C PDAU #### [address] [place] [address] Coding Summary.on 12-11-2018 Coding Summary. CODING DATE: 019 FINAL [facility] STATUS: Home (Routine DC) PAYOR: Commercial [...] CphT Date Saved: 12/11/2018 09:36 am Normal [facility] 1st Trimesteron 12-09-2018 1st Trimester Exam Date/Time: [...] Transvaginal Ultrasound Performed Size = Dates Normal [facility] US Transvaginalon 12-09-2018 US Transvaginal Exam Date/Time: 12/09/2018 15:15 EST Reason for Exam: nausea hx of molar Report Please refer to ultrasound transabdominal first trimester report. FINAL REPORT Dictated: 12/09/2018 3:50 pm Aurelia Mullen MD Signed (Electronic Signature): 12/09/2018 3:50 pm Signed by: Aurelia Mullen MD Transcribed by: DARWIN Technologist: ADARSH Normal 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 HCG, Quanton 03-22-2018 HCG, Quant 64 IU/L High <5 [facility] Comment on above: Result Comment: Non-preg premeno <=5 Postmeno <=8 Male <=3 If HCG results do not concur with clinical observations, additional testing to confirm result is recommended. This test is not labeled for use as a tumor marker. Performed at [address] [place] [address] ([phone] Performed By: #### C PDAU #### [address] [place] [address] HCG, Quanton 03-15-2018 HCG, Quant 613 IU/L High <5 [facility] Comment on above: Result Comment: Non-preg premeno <=5 Postmeno <=8 Male <=3 If HCG results do not concur with clinical observations, additional testing to confirm result is recommended. This test is not labeled for use as a tumor marker. Performed at [address] [place] [address] ([phone] Performed By: #### C PDAU #### [address] [place] [address] OPERATIVE REPORTon 8 OPERATIVE REPORT [address] [place] [address] OPERATIVE REPORT PATIENT NAME: NORIS GOETZ : 1990 MED REC NO: [id number] ROOM: ACCOUNT NO: [id number] ADMIT DATE: 03/09/2018 PROVIDER: Chau Sorenson DATE [...] be correct. Of note, she will receive [place] 5/325 for any postoperative cramping, and I have ordered an hCG to be repeated in approximately one week. CHAU SORENSON [id number] Doc#: [id number] CC: Marianela Oliva Normal [facility] Surgical Pathologyon 018 Surgical Pathology (NOTE) [id number] [facility] ANATOMIC PATHOLOGY [address] [place] [id number] SURGICAL PATHOLOGY CONSULTATION Patient Name: NORIS GOETZ [facility] Rec: [id number] Path Number: [id number] Collected: 03/09/2018 Received: 03/10/2018 Reported: 03/11/2018 14:53 [...] grossly identified. Cystic structures are not evident. Pack Out Operator sections are submitted between sponges in A-H. tm Microscopic Description Most of the submitted tissue consists of blood clot and decidua with foci of necrosis and acute inflammation. Portions of endometrium show gestational change. There are rare immature, small avascular placental villi and a few associated syncytiotrophoblasts. Histologic changes to suggest gestational trophoblastic disease are absent. 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 Chlamydia/GC DNA, Uron 03-07 Protein mass conc Negative Normal NEG [facility] Comment on above: Result Comment: NEIS SERIA GONORRHOEAE DNA not detected by nucleic acid amplification. Performed at [address] [id number] ([phone] Performed By: #### U CGP #### [address] [id number] Result Comment: CHLA MYDIA TRACHOMATIS DNA not detected by nucleic acid amplification. HCG, Quanton 03-07-2018 HCG, Quant 23230 IU/L High <5 [facility] Comment on above: Result Comment: Non-preg premeno <=5 Postmeno <=8 Male <=3 If HCG results do not concur with clinical observations, additional testing to confirm result is recommended. This test is not labeled for use as a tumor marker. Performed at [address] [place] [address] Performed By: #### B HCG #### [address] [place] [address] RHIG, Transfuseon 03-07-2018 RHIG, Transfuse Unit Number [id number] Blood Component Type RHIG Unit Division 00 Status of Unit TRANSFUSED Transfusion Status OK TO TRANSFUSE Performed at [address] [place] [address] Normal [facility] Comment on above: Performed By: #### T RHIG #### [address] [place] [address] Cult,Urine,CCon 03-05-2018 Cult,Urine,CC Specimen Description .URINE Performed at [address] [place] [address] Special Requests CCMS Performed at [address] [place] [address] Culture NO SIGNIFICANT GROWTH Performed at [address] [id number] ([phone] Report Status FINAL 03/04/2018 Normal [facility] Comment on above: Performed By: #### C INNA #### [address] [place] [id number] HIV Ag/Abon 03-04-2018 HIV Ag/Ab NONREACTIVE Normal NR [facility] Comment on above: Result Comment: No l aboratory evidence of HIV infection. If acute HIV infection is suspected, consider testing for HIV-1 RNA. Performed at [address] [address] Performed By: #### H IVCMB #### [address] [address] Hep C Abon 03-04-2018 Hep C Ab NONREACTIVE Normal NR [facility] Comment on above: Result Comment: The hepatitis [...] ordering HCV RNA by PCR. Performed at [address] [address] Performed By: #### A HCV #### [address] [address] Profileon 8 T.pallidum Ab Screen NONREACTIVE Normal [facility] Comment on above: Result Comment: T. pallidum antibodies are not detected. There is no serological evidence of infection with T. pallidum (early primary syphilis cannot be excluded). Retest in 2-4 weeks if syphilis is clinically suspect. Performed at [address] [address] Performed By: #### P RENAT #### [address] [address] Hep B Surf Ag NONREACTIVE Normal [facility] Comment on above: Performed By: #### P RENAT #### [address] [address] Rubella Ab, IgG 65.7 IU/mL Normal [facility] Comment on above: Result Comment: REFERENCE RANGE: <5.0 NON-REACTIVE (non-immune) 5.0 TO 9.9 EQUIVOCAL >=10.0 REACTIVE (immune) Performed By: #### P RENAT #### [facility] [address] [facility] [address] Toxicology Scree, Urineon Amphetamine(s),Ur Negative Normal [facility] Comment on above: Performed By: #### C PDAU #### [address] [place] [address] Barbiturate(s),Ur Negative Normal [facility] Comment on above: Performed By: #### C PDAU #### [address] [place] [address] Benzodiazepine(s) Negative Normal [facility] Comment on above: Performed By: #### C PDAU #### [address] [place] [address] Buprenorphrine, Ur Negative Normal [facility] Comment on above: Result Comment: Perf ormed at [address] [place] [address] Performed By: #### C PDAU #### [address] [place] [address] Cannabinoid(s),Ur Negative Normal [facility] Comment on above: Performed By: #### C PDAU #### [address] [place] [address] Cocaine Metabolite Negative Normal [facility] Comment on above: Performed By: #### C PDAU #### [address] [place] [address] Methadone Ql (U) Negative Normal NEG [facility] Comment on above: Performed By: #### C PDAU #### [address] [place] [address] Methamphetamine, Ur Negative Normal [facility] Comment on above: Performed By: #### C PDAU #### [address] [place] [address] Opiate(s), Ur Negative Normal NEG [facility] Comment on above: Performed By: #### C PDAU #### [address] [place] [address] Oxycodone, Urine Negative Normal NEG [facility] Comment on above: Performed By: #### C PDAU #### [address] [place] [address] Phencyclidine, Ur Negative Normal [facility] Comment on above: Performed By: #### C PDAU #### [address] [place] [address] Protein mass conc (U) Negative Normal NEG [facility] Comment on above: Performed By: #### C PDAU #### [address] [place] [address] Tricyclic antidepressants Screen Ql (U) Negative Normal NEG [facility] Comment on above: Result Comment: Drug screen results are to be used for medical purposes only. All positive results are unconfirmed. Testing for employment or legal uses should be sent to a reference laboratory for confirmation. Performed By: #### C PDAU #### [address] [place] [address] Profileon 8 Abs. Basophil 0.05 k/uL Normal 0.00-0.20 [facility] Comment on above: Performed By: #### P RENAT #### [employer] [address] [place] [address] Abs.Imm.Granulocyte 0.04 k/uL Normal 0.00-0.30 [facility] Comment on above: Performed By: #### P RENAT #### [facility] [address] [place] [address] Abs.Neutrophil (Seg) 5.60 k/uL Normal 1.50-8.10 [facility] Comment on above: Performed By: #### P RENAT #### [address] [address] Basophils/100 WBC (Bld) 1 % Normal 0-2 [facility] Comment on above: Performed By: #### P RENAT #### [address] [address] Eosinophils #/vol (Bld) 0.18 10*3/uL Normal 0.00-0.44 [facility] Comment on above: Performed By: #### P RENAT #### [address] [address] Eosinophils/100 WBC (Bld) 2 % Normal 1-4 [facility] Comment on above: Performed By: #### P RENAT #### [address] [address] Erythrocyte distribution width Ratio (RBC) 13.0 % Normal 11.8-14.4 [facility] Comment on above: Performed By: #### P RENAT #### [address] [address] Hematocrit Volume Fraction (Bld) 39.1 % Normal 36.3-47.1 [facility] Comment on above: Performed By: #### P RENAT #### [address] [address] Hemoglobin mass conc (Bld) 12.6 g/dL Normal 11.9-15.1 [facility] Comment on above: Performed By: #### P RENAT #### [address] [address] Immature granulocytes #/vol (Bld) 1 % High 0 [facility] Comment on above: Performed By: #### P RENAT #### [address] [address] Lymphocytes #/vol (Bld) 2.18 10*3/uL Normal 1.10-3.70 [facility] Comment on above: Performed By: #### P RENAT #### [address] [address] Lymphocytes/100 WBC (Bld) 25 % Normal 24-43 [facility] Comment on above: Performed By: #### P RENAT #### [address] [address] MCH Entitic mass (RBC) 26.9 pg Normal 25.2-33.5 [facility] Comment on above: Performed By: #### P RENAT #### [address] [address] MCHC mass conc (RBC) 32.2 g/dL Normal 28.4-34.8 [facility] Comment on above: Performed By: #### P RENAT #### [address] [address] MCV Entitic volume (RBC) 83.4 fL Normal 82.6-102.9 [facility] Comment on above: Performed By: #### P RENAT #### [address] [address] Monocytes #/vol (Bld) 0.79 10*3/uL Normal 0.10-1.20 [facility] Comment on above: Performed By: #### P RENAT #### [address] [address] Monocytes/100 WBC (Bld) 9 % Normal 3-12 [facility] Comment on above: Performed By: #### P RENAT #### [address] [address] Neutrophil (Seg) 62 % Normal 36-65 [facility] Comment on above: Performed By: #### P RENAT #### [address] [address] NRBC Automated 0.0 per 100 WBC Normal 0.0 [facility] Comment on above: Performed By: #### P RENAT #### [address] [address] Platelet mean volume Entitic volume (Bld) 11.2 fL Normal 8.1-13.5 [facility] Comment on above: Performed By: #### P RENAT #### [address] [address] Platelets #/vol (Bld) 243 10*3/uL Normal 138-453 [facility] Comment on above: Performed By: #### P RENAT #### [address] [address] RBC #/vol (Bld) 4.69 10*6/uL Normal 3.95-5.11 [facility] Comment on above: Performed By: #### P RENAT #### [address] [address] WBC #/vol (Bld) 8.8 10*3/uL Normal 3.5-11.3 [facility] Comment on above: Performed By: #### P RENAT #### [address] [address] Auto Diff Performed NOT REPORTED Normal [facility] Comment on above: Performed By: #### P RENAT #### [address] [address] Platelets #/vol (Bld) NOT REPORTED Normal [facility] Comment on above: Performed By: #### P RENAT #### [address] [address] RBC morphology finding Nom (Bld) NOT REPORTED Normal [facility] Comment on above: Performed By: #### P RENAT #### [address] [id number] WBC Morphology NOT REPORTED Normal [facility] Comment on above: Performed By: #### P RENAT #### [facility] [address] [place] [address] Type + Scrnon 03-03 Type + Scrn ABO/Rh(D) B NEGATIV E Antibody Screen NEGATIVE Performed at [address] [place] [address] ([phone] Normal [facility] Comment on above: Performed By: #### P RTYS #### [address] [address] Progress Noteon 03-03-2018 HIM IP Note OR [employer] Normal [facility] Toxicology Scree, Urineon Interpretive Info NOT REPORTED Normal [facility] Comment on above: Performed By: #### C PDAU #### [address] [address] MDMA, Urine NOT REPORTED Normal NEG [facility] Comment on above: Performed By: #### C PDAU #### [address] [address] Hep Bs Abon 01-22-2018 HBV surface Ab Ql (S) Reactive Fis [facility] Comment on above: Result Comment: Non Reactive: Inconsistent with immunity, less than 10 mIU/mL Reactive: Consistent with immunity, greater than 9.9 mIU/mL Performed at: [facility] [address] [place], [place] [id number] PhD Sumeet Merrill Performed By: #### 2 [id number], [id number] #### [facility] [address] [place] [address] Varic IgGon 01-22-2018 VZV IgG IA Qn (S) 574 Immune >165 [facility] Comment on above: Result Comment: Nega tive <135 Equivocal 135 - 165 Positive >165 A positive result generally indicates exposure to the pathogen or administration of specific immunoglobulins, but it is not indication of active infection or stage of disease. Performed at: [facility] [address] [place], [place] [id number] PhD Sumeet Merrill Performed By: #### 2 [id number], [id number] #### [facility] [address] [place] [address] Progress Noteon 11-18-2017 HIM IP Note OR [employer]ch[employer]iser Normal [facility] Vital Signs Date Time Vital Sign Value Performing Clinician Facility 06-21-2025 09:54-0400 Body mass index (BMI) [Ratio] 35.12 kg/m2 Yasmani Kaylen DO Work Phone: [facility] 06-21-2025 09:54-0400 Body weight 104.78 kg Yasmani Kaylen DO Work Phone: [facility] 06-21-2025 09:54-0400 Diastolic blood pressure 72 mm[Hg] Yasmani Kaylen DO Work Phone: [facility] 06-21-2025 09:54-0400 Systolic blood pressure 124 mm[Hg] Yasmani Kaylen DO Work Phone: [facility] 06-12-2025 08:32-0400 Body height 170.18 cm Marianela Oliva MD Work Phone: [facility] 06-12-2025 08:32-0400 Body mass index (BMI) [Ratio] 36.1 kg/m2 Marianela Oliva MD Work Phone: [facility] 06-12-2025 08:32-0400 Body weight 104.77 kg Marianela Oliva MD Work Phone: [facility] 06-12-2025 08:32-0400 Diastolic blood pressure 81 mm[Hg] Marianela Oliva MD Work Phone: [facility] 06-12-2025 08:32-0400 Heart rate 88 /min Marianela Oliva MD Work Phone: [facility] 06-12-2025 08:32-0400 Respiratory rate 12 /min Marianela Oliva MD Work Phone: [facility] 06-12-2025 08:32-0400 SaO2% (BldA) [Mass fraction] 97 % Marianela Oliva MD Work Phone: [facility] 06-12-2025 08:32-0400 Systolic blood pressure 119 mm[Hg] Marianela Oliva MD Work Phone: [facility] 06-07-2025 10:26-0400 Body mass index (BMI) [Ratio] 35.14 kg/m2 Yasmani Kaylen DO Work Phone: [facility] 06-07-2025 10:26-0400 Body weight 104.83 kg Yasmani Kaylen DO Work Phone: [facility] 06-07-2025 10:26-0400 Diastolic blood pressure 70 mm[Hg] Yasmani Kaylen DO Work Phone: [facility] 06-07-2025 10:26-0400 Systolic blood pressure 112 mm[Hg] Yasmani Kaylen DO Work Phone: [facility] 05-22-2025 11:13-0400 Body mass index (BMI) [Ratio] 34.64 kg/m2 Yasmani Kaylen DO Work Phone: [facility] 05-22-2025 11:13-0400 Body weight 103.33 kg Yasmani Kaylen DO Work Phone: [facility] 05-22-2025 11:13-0400 Diastolic blood pressure 72 mm[Hg] Yasmani Kaylen DO Work Phone: [facility] 05-22-2025 11:13-0400 Systolic blood pressure 110 mm[Hg] Yasmani Kaylen DO Work Phone: [facility] 05-10-2025 08:31-0400 Body mass index (BMI) [Ratio] 34.25 kg/m2 Yasmani Kaylen DO Work Phone: [facility] 05-10-2025 08:31-0400 Body weight 102.17 kg Yasmani Kaylen DO Work Phone: [facility] 05-10-2025 08:31-0400 Diastolic blood pressure 78 mm[Hg] Yasmani Kaylen DO Work Phone: [facility] 05-10-2025 08:31-0400 Systolic blood pressure 124 mm[Hg] Yasmani Kaylen DO Work Phone: [facility] 04-10-2025 10:38-0400 Body mass index (BMI) [Ratio] 33.88 kg/m2 Yasmani Kaylen DO Work Phone: [facility] 04-10-2025 10:38-0400 Body weight 101.06 kg Yasmani Kaylen DO Work Phone: [facility] 04-10-2025 10:38-0400 Diastolic blood pressure 68 mm[Hg] Yasmani Kaylen DO Work Phone: [facility] 04-10-2025 10:38-0400 Systolic blood pressure 108 mm[Hg] Yasmani Kaylen DO Work Phone: [facility] 03-15-2025 10:00-0400 Body mass index (BMI) [Ratio] 33.27 kg/m2 Yasmani Kaylen DO Work Phone: [facility] 03-15-2025 10:00-0400 Body weight 99.25 kg Yasmani Kaylen DO Work Phone: [facility] 03-15-2025 10:00-0400 Diastolic blood pressure 70 mm[Hg] Yasmani Kaylen DO Work Phone: [facility] 03-15-2025 10:00-0400 Systolic blood pressure 110 mm[Hg] Yasmani Kaylen DO Work Phone: [facility] 02-15-2025 09:37-0400 Body mass index (BMI) [Ratio] 32.96 kg/m2 Yasmani Kaylen DO Work Phone: [facility] 02-15-2025 09:37-0400 Body weight 98.34 kg Yasmani Kaylen DO Work Phone: [facility] 02-15-2025 09:37-0400 Diastolic blood pressure 70 mm[Hg] Yasmani Kaylen DO Work Phone: [facility] 02-15-2025 09:37-0400 Systolic blood pressure 110 mm[Hg] Yasmani Kaylen DO Work Phone: [facility] 01-18-2025 09:45-0400 Body mass index (BMI) [Ratio] 32.1 kg/m2 Yasmani Kaylen DO Work Phone: [facility] 01-18-2025 09:45-0400 Body weight 95.77 kg Yasmani Kaylen DO Work Phone: [facility] 01-18-2025 09:45-0400 Diastolic blood pressure 80 mm[Hg] Yasmani Kaylen DO Work Phone: [facility] 01-18-2025 09:45-0400 Systolic blood pressure 100 mm[Hg] Yasmani Kaylen DO Work Phone: [facility] 12-06-2024 09:47-0500 Heart rate 75 /min Marianela Oliva MD Work Phone: [facility] 12-06-2024 09:47-0500 Respiratory rate 16 /min Marianela Oliva MD Work Phone: [facility] 12-06-2024 07:53-0500 Body height 170.18 cm Marianela Oliva MD Work Phone: [facility] 12-06-2024 07:53-0500 Body temperature 98.2 [degF] Marianela Oliva MD Work Phone: [facility] 12-06-2024 07:53-0500 Body weight 90.71 kg Marianela Oliva MD Work Phone: [facility] 12-06-2024 07:53-0500 Diastolic blood pressure 60 mm[Hg] Marianela Oliva MD Work Phone: [facility] 12-06-2024 07:53-0500 SaO2% (BldA) [Mass fraction] 99 % Marianela Oliva MD Work Phone: [facility] 12-06-2024 07:53-0500 Systolic blood pressure 121 mm[Hg] Marianela Oliva MD Work Phone: [facility] 08-15-2024 09:05-0400 Body height 172.72 cm MD Marianela Oliva Work Phone: [facility] 08-15-2024 09:05-0400 Body mass index (BMI) [Ratio] 32.1 kg/m2 MD Marianela Oliva Work Phone: [facility] 08-15-2024 09:05-0400 Body weight 95.7 kg MD Marianela Oliva Work Phone: [facility] 08-15-2024 09:05-0400 Diastolic blood pressure 85 mm[Hg] MD Marianela Oliva Work Phone: [facility] 08-15-2024 09:05-0400 Heart rate 80 /min MD Marianela Oliva Work Phone: [facility] 08-15-2024 09:05-0400 Systolic blood pressure 125 mm[Hg] MD Marianela Oliva Work Phone: [facility] 08-11-2024 09:14-0400 Body height 172.72 cm MD Marianela Oliva Work Phone: [facility] 08-11-2024 09:14-0400 Body mass index (BMI) [Ratio] 31.9 kg/m2 MD Marianela Oliva Work Phone: [facility] 08-11-2024 09:14-0400 Body temperature 97.8 [degF] MD Marianela Oliva Work Phone: [facility] 08-11-2024 09:14-0400 Body weight 95.25 kg MD Marianela Oliva Work Phone: [facility] 08-11-2024 09:14-0400 Diastolic blood pressure 72 mm[Hg] MD Marianela Oliva Work Phone: [facility] 08-11-2024 09:14-0400 Heart rate 99 /min MD Marianela Oliva Work Phone: [facility] 08-11-2024 09:14-0400 Respiratory rate 18 /min MD Marianela Oliva Work Phone: [facility] 08-11-2024 09:14-0400 SaO2% (BldA) [Mass fraction] 96 % MD Marianela Oliva Work Phone: [facility] 08-11-2024 09:14-0400 Systolic blood pressure 106 mm[Hg] MD Marianela Oliva Work Phone: [facility] 05-18-2024 10:41-0400 Body height 173.99 cm MD Marianela Oliva Work Phone: [facility] 05-18-2024 10:41-0400 Body mass index (BMI) [Ratio] 32.2 kg/m2 MD Marianela Oliva Work Phone: [facility] 05-18-2024 10:41-0400 Body weight 97.52 kg MD Marianela Oliva Work Phone: [facility] 05-18-2024 10:41-0400 Diastolic blood pressure 82 mm[Hg] MD Marianela Oliva Work Phone: [facility] 05-18-2024 10:41-0400 Heart rate 72 /min MD Marinaela Oliva Work Phone: [facility] 05-18-2024 10:41-0400 Systolic blood pressure 117 mm[Hg] MD Marianela Oliva Work Phone: [facility] 01-07-2022 12:45-0400 Body height 170.18 cm Regina Missler Other [employer] Other 01-07-2022 12:45-0400 Body temperature 98.9 [degF] Regina Missler Other [employer] Other 01-07-2022 12:45-0400 Diastolic blood pressure 81 mm[Hg] Regina Huddleston Other [employer] Other 01-07-2022 12:45-0400 Respiratory rate 18 /min Regina Huddleston Other [employer] Other 01-07-2022 12:45-0400 SaO2% (BldA) [Mass fraction] Regina Huddleston Other [employer] Other 01-07-2022 12:45-0400 Systolic blood pressure 121 mm[Hg] Regina Marieler Other [employer] Other Encounters Encounter Date Encounter Type Care Provider Facility Start: 06-27-2025 End: 06-27-2025 Clinisync Result Encounter Yasmani Kaylen DO Work Phone: [facility] External Department Unsolicited Start: 06-27-2025 End: 06-27-2025 Clinisync Result Encounter Yasmani Kaylen DO Work [...] Comment on above: Third trimester preg lisa ([facility]); 34 weeks gestation of ([facility]); Multigravida of advanced maternal age in third trimester ([facility]) Start: 06-21-2025 End: 06-21-2025 ambulatory YASMANI KAYLEN Not Available Start: 06-19-2025 End: 06-19-2025 Clinisync Result Encounter Yasmani Kaylen DO Work Phone: [facility] External Department Unsolicited Start: 06-19-2025 End: 06-19-2025 Clinisync Result Encounter Yasmani Kaylen DO Work Phone: [facility] External Department Unsolicited Start: 06-12-2025 End: 06-12-2025 ambulatory Marianela Oliva MD Work Phone: [facility] Work Phone: Start: 06-12-2025 End: 06-12-2025 Patient encounter procedure Marianela Oliva MD -[facility] Work Phone: Start: 06-07-2025 End: 06-07-2025 Bamboo flowsheet Yasmani Kaylen DO Work Phone: [facility] Start: 06-07-2025 End: 06-07-2025 Bamboo flowsheet Yasmani Kaylen DO Work Phone: [facility] Start: 06-07-2025 End: 06-07-2025 flow sheet Yasmani Kaylen DO Work Phone: [facility] Comment on above: Third trimester preg lisa ([facility]); 32 weeks gestation of ([facility]); Multigravida of advanced maternal age in third trimester ([facility]) Start: 06-07-2025 End: 06-07-2025 ambulatory YASMANI KAYLEN Not Available Start: 05-22-2025 End: 05-22-2025 flow sheet Yasmani Kaylen DO Work Phone: [facility] Comment on above: 30 weeks gestation o f ([facility]); Third trimester ([facility]); Antepartum multigravida of advanced maternal age ([facility]); Gestational diabetes mellitus (GDM), antepartum, gestational diabetes method of control unspecified ([facility]) Start: 05-22-2025 End: 05-22-2025 ambulatory YASMANI KAYLEN Not Available Start: 05-10-2025 End: 05-10-2025 Bamboo flowsheet Yasmani Kaylen DO Work Phone: [facility] Start: 05-10-2025 End: 05-10-2025 Bamboo flowsheet Yasmani Kaylen DO Work Phone: [facility] Start: 05-10-2025 End: 05-10-2025 flow sheet Yasmani Kaylen DO Work Phone: [facility] Comment on above: size consisten t with dates, antepartum ([facility]) (Primary Dx); Third trimester ([facility]); 28 weeks gestation of ([facility]); Antepartum multigravida of advanced maternal age ([facility]) Start: 05-10-2025 End: 05-10-2025 ambulatory YASMANI KAYLEN Not Available Start: 04-10-2025 End: 04-10-2025 Bamboo flowsheet Yasmani Kaylen DO Work Phone: [facility] Start: 04-10-2025 End: 04-10-2025 Bamboo flowsheet Yasmani Kaylen DO Work Phone: [facility] Start: 04-10-2025 End: 04-10-2025 flow sheet Yasmani Kaylen DO Work Phone: [facility] Comment on above: Second trimester pre gnancy ([facility]); 24 weeks gestation of ([facility]); Diabetes mellitus screening Start: 04-10-2025 End: 04-10-2025 ambulatory YASMANI KAYLEN Not Available Start: 04-02-2025 End: 04-02-2025 Departed Referred Mario Valle DO -[facility] Start: 04-02-2025 End: 04-02-2025 ambulatory Mario Perez - [facility] Facility:[facility] Start: 03-15-2025 End: 03-15-2025 flow sheet Yasmani Kaylen DO Work Phone: [facility] Comment on above: 20 weeks gestation o f ; Second trimester ; Anxiety, generalized (CMS/HCC) Start: 03-15-2025 End: 03-15-2025 ambulatory YASMANI KAYLEN Not Available Start: 03-15-2025 End: 03-15-2025 ambulatory YASMANI KAYLEN Not Available Start: 03-14-2025 End: 03-14-2025 External Result Encounter Yasmani Kaylen DO Work Phone: [facility] External Department Unsolicited Start: 03-14-2025 End: 03-14-2025 External Result Encounter Yasmani Kaylen DO Work Phone: [facility] External Department Unsolicited Start: 03-14-2025 End: 03-14-2025 Patient encounter procedure Marianela Oliva MD Work Phone: [facility] Start: 03-14-2025 End: 03-14-2025 ambulatory Marianela Oliva MD Work Phone: [facility] Work Phone: Start: 02-15-2025 End: 02-15-2025 [...] / Non-visit Marianela Oliva MD Work Phone: [facility] Work Phone: Start: 02-15-2025 End: 02-15-2025 Patient encounter procedure Yasmani Kaylen DO Work Phone: [facility] Work Phone: Start: 02-15-2025 End: 02-15-2025 Periodic preventive med est patient 18-39 yrs Yasmani Kaylen DO Work Phone: [facility] Comment on above: Well woman exam with routine gynecological exam; Vaginal discharge; Exposure to STD; 16 weeks gestation of ; Second trimester ; Screening, , for anatomic survey; Sterilization consult; Glucose found in urine on examination Start: 02-15-2025 End: 02-15-2025 ambulatory YASMANI KAYLEN Not Available Start: 01-18-2025 End: 01-18-2025 Bamboo flowsheet Yasmani Kaylen DO Work Phone: [facility] Start: 01-18-2025 End: 01-18-2025 Bamboo flowsheet Yasmani Kaylen DO Work Phone: [facility] Start: 01-18-2025 End: 01-18-2025 flow sheet Yasmani Kaylen DO Work Phone: [facility] Comment on above: First trimester preg lisa; 12 weeks gestation of ; Antepartum multigravida of advanced maternal age Start: 01-18-2025 End: 01-18-2025 ambulatory YASMANI KAYLEN Not Available Start: 12-27-2024 End: 12-27-2024 Patient encounter procedure Marianela Oliva MD Work Phone: [facility] Start: 12-27-2024 End: 12-27-2024 ambulatory Marianela Oliva MD Work Phone: [facility] Work Phone: Start: 12-21-2024 End: 12-21-2024 ambulatory YASMANI KAYLEN Not Available Start: 12-07-2024 Non-patient / Non-visit Marianela Oliva MD Work Phone: [facility] Work Phone: Start: 12-06-2024 End: 12-06-2024 Emergency department patient visit Marianela Oliva MD Work Phone: [facility]-Emergency Room Work Phone: Start: 12-05-2024 End: 12-05-2024 Telephone encounter Yasmani Abdullahi DO Work Phone: [facility] Start: 08-15-2024 Patient encounter status Pooja Oliva MD Work Phone: [facility] Start: 08-15-2024 End: 08-15-2024 ambulatory MD Marianela Oliva Work Phone: [facility] Work Phone: Start: 08-15-2024 End: 08-15-2024 Patient encounter procedure MD Marianela Oliva Work Phone: [facility] Work Phone: Start: 08-11-2024 End: 08-11-2024 ambulatory MD Marianela Oliva Work Phone: [facility] Work Phone: Start: 08-11-2024 End: 08-11-2024 Patient encounter procedure MD Marianela Oliva Work Phone: [facility] Work Phone: Start: 08-01-2024 End: 08-01-2024 ambulatory MD Marianela Oliva Work Phone: [facility] Work Phone: Start: 08-01-2024 End: 08-01-2024 Departed Referred MD Marianela Oliva Work Phone: [facility] [place] Work Phone: Start: 05-23-2024 End: 05-23-2024 Patient encounter procedure MD Marianela Oliva Work Phone: [facility] [place] Work Phone: Start: 05-23-2024 End: 05-23-2024 ambulatory MD Marianela Oliva Work Phone: [facility] Work Phone: Start: 05-18-2024 End: 05-18-2024 ambulatory MD Marianela Oliva Work Phone: [facility] Work Phone: Start: 05-18-2024 End: 05-18-2024 Patient encounter procedure MD Marianela Oliva Work Phone: [facility] Work Phone: Start: 05-17-2024 End: 05-17-2024 Departed Referred MD Marianela Oliva Work Phone: [facility] Start: 05-17-2024 End: 05-17-2024 ambulatory MD Marianela Oliva Work Phone: [facility] Work Phone: Start: 07-12-2023 End: 07-12-2023 ambulatory MD Marianela Oliva Work Phone: [facility] Work Phone: Start: 07-12-2023 End: 07-12-2023 Departed Referred MD Marianela Oliva Work Phone: [facility]-Employee Benefit Screening Start: 02-23-2023 End: 02-23-2023 ambulatory MD Marianela Oliva Work Phone: [facility] Work Phone: Start: 02-23-2023 End: 02-23-2023 Patient encounter procedure MD Marianela Oliva Work Phone: [facility] Work Phone: Start: 02-04-2023 End: 02-04-2023 ambulatory Marianela Oliva Other [employer] Other Start: 02-04-2023 Office outpatient vi sit 15 minutes Marianela Oliva [facility] Start: 02-04-2023 Telephone encounter Marianela Oliva [facility] Start: 01-29-2023 End: 01-29-2023 ambulatory Marianela Oliva Other [employer] Other Start: 01-29-2023 Telephone encounter Marianela Oliva [facility] Start: 12-15-2022 End: 12-15-2022 Departed Referred MD Marianela Oliva Work Phone: [facility] [place] Work Phone: Start: 12-04-2022 End: 12-04-2022 ambulatory Marianela Oliva Other [employer] Other Start: 12-04-2022 Telephone encounter Marianela Oliva [facility] Start: 11-10-2022 End: 11-10-2022 ambulatory MD Marianela Oliva Work Phone: [facility] Work Phone: Start: 11-10-2022 End: 11-10-2022 Departed Referred MD Marianela Oliva Work Phone: [facility] [place] Work Phone: Start: 08-07-2022 End: 08-07-2022 ambulatory Regina Huddleston Other [employer] Other Start: 08-07-2022 Telephone encounter Regina Huddleston [facility] Start: 06-26-2022 End: 06-26-2022 ambulatory MD Marianela Oliva Work Phone: [facility] Work Phone: Start: 06-26-2022 End: 06-26-2022 Departed Referred MD Marianela Oliva Work Phone: [facility]-Employee Benefit Screening Start: 01-07-2022 End: 01-07-2022 ambulatory Reginaher Marieveronica Other [employer] Other Start: 01-07-2022 Patient encounter procedure Regina Huddleston [facility] Start: 12-22-2018 End: 12-23-2018 Patient encounter procedure CHAU [facility] Start: 12-09-2018 End: 12-10-2018 Patient encounter procedure CHAU SORENSON Facility:[facility] Start: 06-14-2018 Patient encounter MARIANELA Blevins JP Fac ility:[facility] Start: 03-22-2018 End: 03-23-2018 Patient encounter procedure [facility] Start: 03-15-2018 End: 03-16-2018 Patient encounter procedure [facility] Start: 03-09-2018 End: 03-09-2018 Patient encounter procedure [facility] Start: 03-07-2018 End: 03-08-2018 Patient encounter procedure [facility] Start: 03-03-2018 End: 03-04-2018 Patient encounter procedure [facility] Start: 03-03-2018 End: 03-03-2018 Patient encounter procedure [facility] Start: 01-20-2018 End: 01-21-2018 Patient encounter procedure Macario Jarvis Facility:[facility] Procedures Date Procedure Procedure Detail Performing Clinician Start: 06-27-2025 US OB BPP W NON-STRESS Yasmani Kaylen DO Work Phone: Start: 06-22-2025 US OB BPP W NON-STRESS Yasmani Kaylen [...] Work Phone: Start: 12-27-2024 Antibody screen Mario [facility] Comment on above: Order Comment: NONFA STING.JKW Result Comment: PERF ORMED BY: [facility] [address] [place] [address] PATHOLOGIST BIG DATA ENGINEER LEÓN GARCIA M.D. Start: 12-06-2024 Diagnostic ultrasoun d of gravid uterus Marianela Oliva MD Work Phone: Start: 08-11-2024 Plain chest X-ray MD Heavenly Oliva Work Phone: Start: 05-23-2024 Ultrasonography of limb MD Marianela Oliva Work Phone: Start: 02-23-2023 Screening mammograph y of bilateral breasts MD Marianela Oliva Work Phone: Start: 01-07-2022 Piperacillin/tazobactam Regina Huddleston Other Start: 12-22-2018 Antibody hiv-1&hiv-2 single result CHAU ASTONTrenton Start: 12-22-2018 Hepatitis c antibody WE ARTIS CLANCYTrenton Start: 12-22-2018 C.TRACHOMATIS N.GONO RRHOEAE DNA, URINE CHAU ASTONTrenton Start: 12-22-2018 Obstetric panel CHAU ASTONTrenton Start: 12-22-2018 TYPE AND SCREEN CHAU SORENSON Start: 12-22-2018 Culture bacterial quanttative colony count urine CHAU SORENSON Start: 12-22-2018 Drug screen, qualitate/multi CHAU ASTONTrenton Start: 03-22-2018 Gonadotropin chorion ic quantitative CHAU ASTONTrenton Start: 03-15-2018 Gonadotropin chorion ic quantitative CHAU ASTONTrenton Start: 03-09-2018 TYPE AND SCREEN [facility]AU [facility] Start: 03-09-2018 SURGICAL PATHOLOGY JUAN DAVIDL EY BRITTNI Start: 03-09-2018 DISCHARGE PATIENT LORELEI SORENSON Start: 03-09-2018 ASSESS CHAU SWAPNA [place] Start: 03-09-2018 BEDREST CHAU BARCENAS GES Start: 03-09-2018 Continuous pulse oximetry CHAU SORENSON Start: 03-09-2018 INITIATE OXYGEN THER APY PROTOCOL CHAU SORENSON Start: 03-09-2018 NEURO/VASCULAR CHECKS W DENG SORENSON Start: 03-09-2018 DIET NPO, NOW CHAU HE DGES Start: 03-09-2018 MEASURE WEIGHT CHAU Tucker EDGES Start: 03-09-2018 NOTIFY PHYSICIAN (SPECIFY) CHAU SORENSON Start: 03-09-2018 NURSING COMMUNICATION W DENG SORENSON Start: 03-09-2018 PLACE INTERMITTENT P NEUMATIC COMPRESSION DEVICE CHAU SORENSON Start: 03-09-2018 REMOVE AND REPLACE T ED HOSE DAILY CHAU SORENSON Start: 03-09-2018 VITAL SIGNS CHAU [facility] Start: 03-09-2018 FULL CODE CHAU [place] Start: 03-09-2018 VERIFY INFORMED CONSENT CHAU SORENSON Start: 03-07-2018 Gonadotropin chorion ic quantitative CHAU SORENSON Start: 03-03-2018 C.TRACHOMATIS N.GONO RRHOEAE DNA, URINE CHAU SORENSON Start: 03-03-2018 HEPATITIS C ANTIBODY FAWN SORENSON Start: 03-03-2018 HIV SCREEN CHAU [place] [...] procedure 07/12/2025 9:10 AM EDT Routine [facility] [address] [place] [phone] Lanie Mendez, UTILITIES ESTIMATOR AND DRAFTER [address] [place] [phone] [facility] Start: 07-05-2025 End: 07-05-2025 Patient encounter procedure 07/05/2025 9:50 AM EDT Routine [facility] [address] [place] [phone] Yasmani Abdullahi, DO [address] [place], [facility] Start: 06-21-2025 End: 06-21-2025 Patient encounter procedure 06/21/2025 9:40 AM EDT Routine [facility] [address] [facility] [phone] Yasmani Abdullahi, DO [address] [place] [address] [facility] Start: 06-21-2025 End: 06-21-2025 Professional / ancillary services management 06/21/2025 9:00 AM EDT Ancillary Procedure [facility] [address] [place] [phone] [facility] Start: 06-07-2025 End: 12-08-2025 US biophysical profile w non stress test US biophysical profile w non stress test Imaging Routine Multigravida of advanced maternal age in third trimester ([facility]) Expected: 06/07/2025 (Approximate), Expires: 12/08/2025 [facility] Work Phone: Comment on above: Expected: 06/07/2025 (Approximate), Expires: 12/08/2025 Start: 06-07-2025 End: 06-07-2025 Patient encounter procedure [facility] Comment on above: Arrived Start: 05-22-2025 End: 05-22-2025 Patient encounter procedure 05/22/2025 11:00 AM EDT Routine [facility] [address] [place] [phone] Yasmani Abdullahi, DO [address] [place] [address] [facility] Start: 05-22-2025 End: 05-22-2025 Professional / ancillary services management 05/22/2025 10:30 AM EDT Ancillary Procedure [facility] [address] [place] [phone] [facility] Start: 05-10-2025 End: 09-10-2025 US for US OB follow up transabdominal approach Imaging Routine Antepartum multigravida of advanced maternal age ([facility]) Expected: 05/10/2025, Expires: 09/10/2025 [facility] Work Phone: Comment on above: Expected: 05/10/2025 , Expires: 09/10/2025 Start: 05-10-2025 End: 05-10-2025 Patient encounter procedure [facility] Comment on above: Arrived Start: 04-10-2025 End: 04-10-2026 CBC panel - Blood by Automated count CBC Lab Routine Diabetes mellitus screening Expected: 04/10/2025 (Approximate), Expires: 04/10/2026 [facility] Work Phone: Comment on above: Expected: 04/10/2025 (Approximate), Expires: 04/10/2026 Start: 04-10-2025 End: 04-10-2026 Measurement of glucose 1 hour after glucose challenge for glucose tolerance test Glucose tolerance, 1 hour Lab Routine Diabetes mellitus screening Expected: 04/10/2025 (Approximate), Expires: 04/10/2026 [facility] Comment on above: Expected: 04/10/2025 (Approximate), Expires: 04/10/2026 Start: 04-10-2025 End: 04-10-2025 Patient encounter procedure [facility] Comment on above: Arrived Start: 03-15-2025 End: 03-15-2025 Patient encounter procedure 03/15/2025 9:50 AM EDT Routine [facility] [address] [facility] [phone] Yasmani Abdullahi, DO [address] [place] [address] [facility] Start: 03-15-2025 End: 03-15-2025 Professional / ancillary services management 03/15/2025 8:30 AM EDT Ancillary Procedure [facility] [address] [place] [phone] [facility] Start: 02-15-2025 End: 03-18-2025 [...] AM EDT Routine [facility] [address] [facility] [phone] Yasmani Abdullahi, [address] [place] [address] Arrived [facility] Comment on above: Arrived Start: 12-27-2024 Bacteria identified in Urine by Culture Urine Culture [facility] Start: 12-27-2024 Rubella IgG measurement [facility] Start: 12-27-2024 Urine culture [facility] Start: 12-27-2024 [facility] Start: 12-21-2024 End: 12-21-2024 ambulatory 12/21/2024 1:30 PM EST Initial [facility] [address] [place] [address] [facility] Start: 12-21-2024 End: 12-21-2024 Professional / ancillary services management 12/21/2024 1:00 PM EST Ancillary Procedure [facility] [address] [facility] [phone] [facility] Start: 12-06-2024 Diagnostic ultrasoun d of gravid uterus [facility] Start: 07-12-2023 [facility] CHLAMYDIA TRACHOMATI S (GENITO/STI) CHLAMYDIA TRACHOMATIS (GENITO/STI) Lab Routine Exposure to STD 16 weeks gestation of Second trimester Ordered: 02/15/2025 [facility] Comment on above: Ordered: 02/15/2025 Cytology Cervical or vaginal smear or scraping study Pap Smear Pathology and Cytology Routine Well woman exam with routine gynecological exam Ordered: 02/15/2025 [facility] Comment on above: Ordered: 02/15/2025 Hepatitis B virus surface Ag [Presence] in Serum or Plasma by Immunoassay [facility] Hepatitis C virus Ig G Ab [Presence] in Serum or Plasma by Immunoassay [facility] HIV 1+2 Ab+HIV1 p24 Ag [Presence] in Serum or Plasma by Immunoassay [facility] Human papilloma viru s DNA [Presence] in Unspecified specimen by Probe with amplification HPV DNA probe, amplified Microbiology Routine Well woman exam with routine gynecological exam Ordered: 02/15/2025 [facility] Comment on above: Ordered: 02/15/2025 Measurement of gluco se 1 hour after glucose challenge for glucose tolerance test GTT, 1 hour Lab Routine Antepartum multigravida of advanced maternal age Ordered: 01/18/2025 [facility] Work Phone: Comment on above: Ordered: 01/18/2025 Neisseria gonorrhoea e DNA [Presence] in Unspecified specimen by CORBY with probe detection Neisseria gonorrhea DNA probe, direct Lab Routine Exposure to STD 16 weeks gestation of Second trimester Ordered: 02/15/2025 [facility] Comment on above: Ordered: 02/15/2025 Patient Education Stomach Pain i n Early [facility] Work Phone: Patient referral [facility] Work Phone: Reagin Ab [Presence] in Serum by RPR [facility] SURESWAB(R) ADVANCED VAGINITIS PLUS, TMA SURESWAB(R) ADVANCED VAGINITIS PLUS, TMA Pathology and Cytology Routine Vaginal discharge Exposure to STD 16 weeks gestation of Second trimester Ordered: 02/15/2025 [facility] [employer] Work Phone: Comment on above: Ordered: 02/15/2025 [facility] Immunizations Immunization Date Immunization Notes Care Provider Fa cilimartha 06-23-2019 tetanus toxoid, redu christen diphtheria toxoid, and acellular pertussis vaccine, adsorbed MD Marianela Oliva Work Phone: [facility] Payers Date Payer Category Payer Unknown [id number] [id number] Self-pay [id number] 2018 Unknown [id number] 2018 Private Health Insurance 2014 Unknown [id number] 1989 Unknown [id number] 2.16.84 0.1.956378.3.579.2.727 1989 Unknown [id number] 2.16.8 40.1.588564.3.579.2.173 1989 Unknown [id number] 2.16.8 40.1.032860.3.579.2.173 1989 Unknown [id number] 2.16.8 40.1.974643.3.579.2.173 1989 Unknown [id number] 2.16.8 40.1.560159.3.579.2.173 1989 Unknown [id number] 2.16.8 40.1.248447.3.579.2.173 1989 Unknown [id number] 2.16.8 40.1.317716.3.579.2.173 1989 Unknown [id number] 2.16.8 40.1.823478.3.579.2.173 1989 Unknown [id number] 2.16.8 40.1.932312.3.579.2.173 1989 Unknown [id number] 2.16.8 40.1.010159.3.579.2.1259 1989 Unknown [id number] 2.16.8 40.1.681897.3.579.2.1259 1989 Unknown [id number] 2.16.8 40.1.503028.3.579.2.1259 1989 Unknown [id number] 2.16.8 40.1.178514.3.579.2.1259 1989 Unknown [id number] 2.16.8 40.1.090803.3.579.2.1258 1989 Unknown [id number] 2.16.8 40.1.841183.3.579.2.1258 1989 Unknown [id number] 2.16.8 40.1.777636.3.579.2.1258 1989 Unknown [id number] 2.16.84 0.1.713109.3.579.2.1258 1989 Unknown [id number] 2.16.84 0.1.393391.3.579.2.1258 1989 Unknown [id number] 2.16.84 0.1.009984.3.579.2.1258 1989 Unknown [id number] 2.16.84 0.1.515419.3.579.2.1258 1989 Unknown [id number] 2.16.84 0.1.685692.3.579.2.1258 1989 Unknown [id number] 2.16.84 0.1.525551.3.579.2.1259 1959 Private Health Insurance [facility] [id number] Unknown [id number] 2.16.8 40.1.679770.3.579.2.531 Unknown [id number] 2.16.8 40.1.222569.3.579.2.531 Unknown [id number] 2.16.8 40.1.083735.3.579.2.531 Unknown [id number] 2.16.8 40.1.132230.3.579.2.531 Unknown [id number] 2.16.8 40.1.434864.3.579.2.531 Unknown [id number] 2.16.8 40.1.660423.3.579.2.531 Unknown [id number] 2.16.8 40.1.812221.3.579.2.531 Unknown [id number] 2.16.8 40.1.762372.3.579.2.531 Social History Date Type Detail Facility Unknown if ever smoked [facility] [employer] Other Start: 01-27-2024 End: 12-21-2024 Sex Assigned At [facility] [employer] Other Start: 06-22-2019 End: 01-26-2024 Tobacco smoking status NHIS Never smoked tobacco (finding) [facility] Start: 1990 Sex Assigned At Female [facility] Start: 01-26-2024 Tobacco use and exposure Smokeless tobacco non-user [facility] Start: 01-27-2024 End: 06-21-2025 Alcoholic beverage intake Current drinker of alcohol (finding) [facility] Start: 01-27-2024 End: 12-21-2024 History of Social function [facility] Start: 01-27-2024 Gender identity Identifies as female gender (finding) [facility] Start: 01-27-2024 Sexual orientation Heterosexual (finding) [facility] Start: 11-04-2024 [facility] Start: 12-06-2024 End: 03-15-2025 Sex Female (finding) [facility] Medical Equipment Procedure Code Equipment Code Equipment Origin al Text Equipment Identifier Dates 1 strip by In Vi tro route Daily Use in the morning prior to breakfast, 1 hour after each meal for a total of 4times daily. [id number] Start: 02-15-2025 End: 03-17-2025 1 each by In Vit ro route Daily Use to check FSBS four times daily [id number] Start: 02-15-2025 End: 03-17-2025 Use as instructed [id number] Start: 04-09-2025 End: 04-09-2026 1 each by In Vit ro route Daily [id number] Start: 04-09-2025 End: 05-09-2025 Clinical Notes 12-16-2021 to 06-21-2025 Eugenia Bridges LPN - 06/21/2025 9:40 AM Gracie Bridges LPN - 06/07/2025 9:50 AM Niki Mckeon LPN - 05/22/2025 11:00 AM EDTSusadee Bridges, ORDER FULFILLMENT SPECIALIST - 05/10/2025 8:40 AM EDT Note Date [...] nursing note reviewed. Exam conducted with a straight line edger present. Vitals: Estimated body mass index is 35.12 kg/m as calculated from the following: Height as of 12/15/22: 5' 8 . Weight as of this encounter: 231 lb. BP: 124/72 Patient's last menstrual period was 10/21/2024. ASSESSMENT & PLAN ICD-10-CM 1. Third trimester ([facility]) Z34.93 POCT urinalysis dipstick manually resulted 2. 34 weeks gestation of ([facility]) Z3A.34 3. Multigravida of advanced maternal age in third trimester ([facility]) O09.523 Patient presents today for a routine [...] Yasmani Abdullahi DO documented in this encounter [facility] 06-07-2025 History of Presen t illness [...] nursing note reviewed. Exam conducted with a straight line edger present. Vitals: Estimated body mass index is 35.14 kg/m as calculated from the following: Height as of 12/15/22: 5' 8 . Weight as of this encounter: 231 lb 1.9 oz. BP: 112/70 Patient's last menstrual period was 10/21/2024. ASSESSMENT & PLAN ICD-10-CM 1. Third trimester ([facility]) Z34.93 POCT urinalysis dipstick manually resulted 2. 32 weeks gestation of ([facility]) Z3A.32 POCT urinalysis dipstick manually resulted 3. Multigravida of advanced maternal age in third trimester ([facility]) O09.523 US biophysical profile w non stress test Patient presents today for a routine obstetrics appointment. Patient is currently 32w5d with a Estimated Date of Delivery: 07/28/25. Patient given orders for NST/BPP's to be started until delivery. Orders will also be sent to [facility] Scheduling and [facility]BC. Patient to return to clinic in 2 weeks. Documented by Eugenia Bridges LPN on behalf of: Yasmani Abdullahi DO documented in this encounter [facility] 05-22-2025 History of Presen t illness [...] Past Medical History: Diagnosis Date Anxiety Melanoma ([facility]) 2021 HISTORY PAST MEDICAL HISTORY [...] nursing note reviewed. Exam conducted with a straight line edger present. Vitals: Estimated body mass index is 34.64 kg/m as calculated from the following: Height as of 12/15/22: 5' 8 . Weight as of this encounter: 227 lb 12.8 oz. BP: 110/72 Patient's last menstrual period was 10/21/2024. ASSESSMENT & PLAN ICD-10-CM 1. 30 weeks gestation of ([facility]) Z3A.30 POCT urinalysis dipstick manually resulted 2. Third trimester ([facility]) Z34.93 POCT urinalysis dipstick manually resulted 3. Antepartum multigravida of advanced maternal age ([facility]) O09.529 POCT urinalysis dipstick manually resulted 4. Gestational diabetes mellitus (GDM), antepartum, gestational diabetes method of control unspecified ([facility]) O24.419 POCT urinalysis dipstick manually resulted Return [...] Yasmani Abdullahi DO documented in this encounter [facility] 05-10-2025 History of Presen t illness [...] nursing note reviewed. Exam conducted with a straight line edger present. Vitals: Estimated body mass index is 34.25 kg/m as calculated from the following: Height as of 12/15/22: 5' 8 . Weight as of this encounter: 225 lb 4 oz. BP: 124/78 Patient's last menstrual period was 10/21/2024. ASSESSMENT & PLAN ICD-10-CM 1. size consistent with dates, antepartum ([facility]) Z34.90 US OB follow up transabdominal approach 2. Third trimester ([facility]) Z34.93 POCT urinalysis dipstick manually resulted 3. 28 weeks gestation of ([facility]) Z3A.28 Patient presents today for a routine obstetrics appointment. Patient is currently 28w5d with a Estimated Date of Delivery: 07/28/25. Patient to return to clinic in 2 weeks for return OB and Growth US. Patient is going to [facility] after this appointment to receive her Rhogam injection. Patient will call office with any concerns or questions in the meantime. Documented by Eugenia Bridges LPN on behalf of: Yasmani Abdullahi DO documented in this encounter [facility] 04-10-2025 History of Presen t illness [...] nursing note reviewed. Exam conducted with a straight line edger present. Vitals: Estimated body mass index is 33.88 kg/m as calculated from the following: Height as of 12/15/22: 5' 8 . Weight as of this encounter: 222 lb 12.8 oz. BP: 108/68 Patient's last menstrual period was 10/21/2024. ASSESSMENT & PLAN ICD-10-CM 1. Second trimester ([facility]) Z34.92 POCT urinalysis dipstick manually resulted 2. 24 weeks gestation of ([facility]) Z3A.24 POCT urinalysis dipstick manually resulted 3. [...] Yasmani Abdullahi DO documented in this encounter [facility] 03-15-2025 History of Presen t illness [...] Past Medical History: Diagnosis Date Anxiety Melanoma ([facility]) 2021 HISTORY PAST MEDICAL HISTORY [...] nursing note reviewed. Exam conducted with a straight line edger present. Vitals: Estimated body mass index is [...] CBC drawn yesterday. Patient was provided with logistic manager email to send FSBS results & more forms we given to patient to track sugars. Patient to RTC in 4 weeks for routine OB care. Documented by Eugenia Bridges LPN on behalf of: Yasmani Abdullahi DO documented in this encounter [facility] 02-15-2025 History of Presen t illness [...] nursing note reviewed. Exam conducted with a straight line edger present. Vitals: Estimated body mass index is [...] Yasmani Abdullahi DO documented in this encounter [facility] 01-18-2025 History of Presen t illness [...] nursing note reviewed. Exam conducted with a straight line edger present. Vitals: Estimated body mass index is [...] meat, and stay away from [facility]. Patient has been consulted regarding any [...] to AMA. 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 She called with complaints of kidney pain and left abd pain. Per nurse patient advised to be evaluated at Hospital. [facility]. She also had questions about Zoloft during . Pt transferred to nurse to discuss. [facility] 12-05-2024 Miscellaneous Notes Formattin g of this note might be different from the original. 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 She called with complaints of kidney pain and left abd pain. Per nurse patient advised to be evaluated at Hospital. [facility]. She also had questions about Zoloft during . Pt transferred to nurse to discuss. documented in this encounter [facility] 02-04-2023 Evaluation note Encounter Date Diagnosis Assessment Notes Jan, Family history of BRCA gene mutation (ICD-10 - Z84.81) Discussed family history. Pt would like to be checked. She has weighed the risks and benefits and states she would be interested in a B mastectomy if indicated. After calling [employer] and [employer], the decision was to fax lab order to [facility]. Order handwritten. Jan, Family history of breast cancer (ICD-10 - Z80.3) Mamm ordered. Jan, Screening mammogram for breast cancer (ICD-10 - Z12.31) [employer] Other 10-21-2022 Evaluation note* Encounter Date Diagnosis Assessment Notes Treatment Notes Treatment Clinical Notes Jul, Strep pharyngitis (ICD-10 - J02.0) [employer] Other 03-23-2022 Evaluation note* Encounter Date Diagnosis [...] were not corrected during the review process. [employer] Other 03-01-2022 History general Narrative - Reported* Type Description Date Medical History post pardom depression Surgical History wisdom teeth Surgical History D&C Surgical History melanoma excision 12/16/21 Hospitalization History child x4 [employer] Other 03-01-2022 History general Narrative - Reported* Type Description Date Medical History post pardom depression Medical History Anxiety, generalized Surgical History wisdom teeth Surgical History D&C Surgical History melanoma excision 12/16/21 Hospitalization History child x4 Hospitalization History see surgical hx [employer] Other Evaluation noteNo assessment information available [facility] Work Phone: Evaluation noteNo InformationNort [employer] Other Evaluation note* Diagnosis Onset Date Resolution Status Mass of skin of chest acute [facility] Work Phone: Evaluation note* Diagnosis Onset Date Resolution Status Mass of skin of chest acute Right lower lobe pneumonia n oneactive [facility] Work Phone: Evaluation note* Diagnosis First [...] please be sure to follow-up with your MANUSCRIPTS CURATOR and primary care provider. If you develop worsening pain, vaginal bleeding, fevers, other symptoms as we discussed please return the emergency department for reevaluation.[facility] Work Phone: Reason for referral (narrative)No reason for referral information available[facility] Work Phone: Summary Purpose Family History [...] section and content) DATE CREATED AUTHOR 04/05/2018 [facility] DATE CREATED AUTHOR AUTHOR'S ORGANIZ ATION 06/15/2018 [facility] DATE CREATED AUTHOR AUTHOR'S ORGANIZ ATION 12/15/2018 [facility] DATE CREATED AUTHOR AUTHOR'S ORGANIZ ATION 12/25/2018 [facility] DATE CREATED AUTHOR AUTHOR'S ORGANIZ ATION 04/03/2025 [facility] DATE CREATED AUTHOR AUTHOR'S ORGANIZ ATION 06/23/2025 [facility] EPIC REASON FOR VISIT (unrecogniz ed section and content) Reason Comments Routine Visit Care Teams (unrecognized sec tion and content) Team Status: Inactive Member Role Status Dates Marianela Oliva MD Primary Care Provider Active Mario Perez , [facility] Attending Provider Active Team Status: Active Member Role Status Dates Marianela Oliva MD Primary Care Provider Active Team Status: Inactive Member Role Status Dates Marianela Oliva MD Primary Care Provider Active Derrick Wilson MD Attending Provider Active Team Status: Inactive Member Role Status Dates Marianela Oliva MD Primary Care Provider, Attending P theresa Active Team Status: Inactive Member Role Status Dates Marianela Oliva MD Primary Care Provider Active Marissa Garcia DO Attending Provider Active Team Status: Inactive Member Role Status Dates Marianela Oliva MD Primary Care Provider Active Start: May 17, 2024 End: May 17, 2024 Mario Perez - [facility] Attending Provider Active Start: May 17, [...] 2024 Team Status: Inactive Member Role Status Radha Wilson MD Attending Provider Active Start: August [...] 2024 Team Status: Active Member Role Status Radha Oliva MD Primary Care Provider Active Start: August 11, 2024 Melissa Reddy APRN Attending Provider Active Sta rt: August 11, 2024 Team Status: Inactive Member Role Status Dates Marianlea Oliva MD Primary Care Provider Active Start: August 11, 2024 End: August 11, 2024 Melissa M Reddy , QA INTERN Attending Provider Active Sta rt: August 11, 2024 End: August 11, 2024 Team Status: Inactive Member Role Status Dates Marianela Oliva MD Primary Care Provide r, Attending Provider Active Start: August 15, 2024 End: August 15, 2024 Mophead Trimmer And Wrapper 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 Specialty Start Date End Date Marianela Oliva MD [address] [place] [facility] [place] [address] PCP - General Family Medicine 01/27/24 Team [...] December 27, 2024 End: December 27, 2024 [employer] Trimmer And Wrapper 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 Specialty Start Date End Date Marianela Oliva MD [address] [place] [facility] [place] [address] PCP - General Family Medicine 01/27/24 [employer] Trimmer And Wrapper 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 Specialty Start Date End Date Marianela Oliva MD [address] [place] [facility] [place] [address] PCP - General Family Medicine 01/27/24 [employer]ophead Trimmer And Wrapper 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 Specialty Start Date End Date Marianela Oliva MD PCP - General Family Medicine 01/27/24 [employer] Trimmer [employer] Wrapper 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 Specialty Start Date End Date Marianela Oliva MD PCP - General Family Medicine 01/27/24 [employer]op[employer] Trimmer And Wrapper 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 Specialty Start Date End Date Marianela Oliva MD PCP - General Family Medicine 01/27/24 [employer] Trimmer And Wrapper 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 Specialty Start Date End Date Marianela Oliva MD PCP - General Family Medicine 01/27/24 [employer]ophead Trimmer And Wrapper 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 Specialty Start Date End Date Marianela [...] March 14, 2025 End: March 14, 2025 [employer]ophead Trimmer And Wrapper 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 Specialty Start Date End Date Marianela Oliva MD [address] [place] [phone] PCP - General Family Medicine 01/27/24 [employer] Trimmer And Wrapper 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 Specialty Start Date End Date Marianela Oliva MD [address] [place] [address] PCP - General Family Medicine 01/27/24 [employer] Trimmer And Wrapper 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 Specialty Start Date End Date Marianela Oliva MD [address] [place] [address] PCP - General Family Medicine 01/27/24 [employer] Trimmer And Wrapper 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 Specialty Start Date End Date Marianela Oliva MD [address] [place] [address] PCP - General Family Medicine 01/27/24 [employer]ophead Trimmer And Wrapper 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 Specialty Start Date End Date Marianela Oliva MD [address] [place] [facility] [place] [address] PCP - General Family Medicine 01/27/24 Team Status: Inactive Member Role Status Dates Marianela Oliva MD Primary Care Provider Active Start: April 02, 2025 End: April 02, 2025 Mario Perez - [facility] , DO [facility] Attending Provider Active Start: April 02, 2025 End: April 02, 2025 Team Status: Inactive Member Role Status Dates Marianela Oliva MD Primary Care Provider Active Start: June 12, 2025 End: June 12, 2025 Marianela Oliva MD Attending Provider Active St art: June 12, 2025 End: June 12, 2025 [employer]ophead Trimmer And Wrapper 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 Specialty Start Date End Date Marianela Oliva MD [address] [place] [facility] [place] [address] PCP - General Family Medicine 01/27/24 [employer] Trimmer And Wrapper 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 Specialty Start Date End Date Marianela Oliva MD [address] [place] [facility] [place] [address] PCP - General Family Medicine 01/27/24 Goals [...] BE BASED ON THE PRIMARY CLINICAL RECORDS. [employer] provides no warranty or guarantee of the accuracy or completeness of information in this document.
[2025-06-30 08:22] VITALS: BP 119/77; PULSE 89
== END 2025-06-30 08:30 | disposition home or self-care (01) ==
LOC: FBCO 07:56 → FBC 07:58
PROVIDERS: Family Provider Family Medicine; PCP Family Medicine; Visit Provider Obstetrics & Gynecology
DX: O09.529 Supervision of elderly multigravida, unspecified trimester (principal); Z3A.36 36 weeks gestation of pregnancy
CPT/HCPCS: 59025

== ENCOUNTER 2025-07-04 07:30 | Outpatient (OUT) | payer OTHER, SELFPAY ==
--- OUTSIDE RECORDS SUMMARY | 2014-02-14 01:42 | XMS_ITS | Encounter Summary ---
Author Organization [facility] Address [address], [address] [place] [address] Care Team Providers Care Pediatric Speech Therapist Name Role Phone Unavailable Primary Care Provider Unavailabl e Encounter Details Date Type Department Care Team (Late st Contact Info) Description 02/14/2014 1:42 AM EDT Hospital Encounter [facility] [address] [phone] Kalen Sorenson MD [address] [facility] [address] [place] [address] Social History Tobacco Use Types [...] - 100 mg/dL 02/14/2014 7:15 AM EDT [facility] 02/14/2014 7:08 AM EDT 02/14/2014 7:15 AM EDT Kalen Sorenson MD CHEMISTRY ORDERABLES Final Re sult Performing Organization Address City/[facility]/ZIP Co de Phone Number [facility] [address] [place] [address] * (ABNORMAL) Glucose tolerance, 3 hours (02/14/2014 6:59 AM EDT) Amount Glucose Given 100 g 02/14/2014 7:01 AM EDT [facility] Glucose, Fasting 80 65 - 99 mg/dL 02/14/2014 8:09 AM EDT [facility] Glucose, GTT - 1 Hour 227(H) 65 - 184 mg/dL 02/14/2014 8:59 AM EDT [facility] Glucose, GTT - 2 Hour 227(H) 65 - 139 mg/dL 02/14/2014 11:02 AM EDT [facility] Glucose, GTT - 3 Hour 135(H) 65 - 130 mg/dL 02/14/2014 11:01 AM EDT [facility] Comment: Performed at [address] [place], [place] [address] ([phone] 02/14/2014 6:59 AM EDT 02/14/2014 7:00 AM EDT us Kalen Sorenson MD CHEMISTRY ORDERABLES Final Re sult Performing Organization Address [facility]/ZIP Co de Phone Number [facility] [address] [place], [place] [address], [facility] [phone] [facility] documented in this encounter Visit Diagnoses Not on filedocumented in this encounter
--- OUTSIDE RECORDS SUMMARY | 2025-06-07 09:50 | XMS_ITS | Encounter Summary ---
Author Organization [facility] Address [address] [place] [address] Care Team Providers Care Veneer Puller Name Role Phone Kathy Reynaga MD Primary Care Provider [phone] Reason for Visit * Reason Comments Routine Visit Encounter Details Date Type Department Care Team (Latest Contact Info) Description 06/07/2025 9:50 AM EDT Routine [facility] [address] [place] [address] Yasmani Abdullahi DO [address] [place] [address] Third trimester ([facility]); 32 weeks gestation of ([facility]); Multigravida of advanced maternal age in third trimester ([facility]); History of molar ; Gestational diabetes mellitus (GDM), antepartum, gestational diabetes method of control unspecified ([facility]); Antepartum multigravida of advanced maternal age ([facility]) Social History Tobacco Use Types Packs/Day Years Used Date Smoking Tobacco: Never Smokeless Tobacco: Never Alcohol Use Standard Drinks/Week Comments Yes 0 (1 standard drink = 0.6 oz pur e alcohol) Estimated Date of Delivery Comme nts Yes 07/28/2025 Based on last me nstrual period of 10/21/2024 Sex and Gender Information Value Date Recorded Sex Assigned at Female 01/27/2024 7:56 AM EDT Legal Sex Female 8:06 PM EDT Gender Identity Female 01/27/2024 7:56 AM EDT Sexual Orientation Straight 01/27/2024 7 :56 AM EDT documented as of this encounter Last Filed Vital Signs Vital Sign Reading Time Taken Comments Blood Pressure 112/70 06/07/2025 10:26 AM EDT Pulse - - Temperature - - Respiratory Rate - - Oxygen Saturation - - Inhaled Oxygen Concentration - - Weight 105 kg (231 lb 1.9 oz) 06/07/2025 10:26 A M EDT Height - - Body Mass Index 35.14 12/15/2022 12:00 PM EST documented in this encounter Progress Notes * Eugenia Crews LPN - 06/07/2025 9:50 AM EDT Reason for Appointment: Patient ID: Treva Goetz is a 35 y.o. female who presents for Routine Visit Patient presents today for Return OB appointment. MEDICATIONS Current Outpatient Medications Medication Instructions acetaminophen (Tylenol) 500 MG tablet Take by mouth Alcohol Swabs (Alcohol Prep Pad) 70 % pads 1 Pad, Topical, Daily, Use four times daily to check FSBS. Blood Glucose Monitoring Suppl (True Metrix Air Glucose Meter) w/Device kit 1 kit, Does not apply, 4 times daily glucose blood (True Metrix Blood Glucose Test) test strip Use as instructed MV-Min-Fe Fum-FA-DHA ( 1 PO) Take by mouth sertraline (ZOLOFT) 100 mg, Oral, Daily ALLERGIES No Known Allergies PROBLEMS Active Ambulatory Problems Diagnosis Date Noted No Active Ambulatory Problems Resolved Ambulatory Problems Diagnosis Date Noted No Resolved Ambulatory Problems Past Medical History: Diagnosis Date Anxiety Melanoma ([facility]) 2021 HISTORY PAST MEDICAL HISTORY SOCIAL HISTORY Past Medical History: Diagnosis Date Anxiety Melanoma ([facility]) 2021 on chest Social History Tobacco Use Smoking status: Never Smokeless tobacco: Never Substance Use Topics Alcohol use: Yes Drug use: Never FAMILY HISTORY No family history on file. SURGICAL HISTORY Past Surgical History: Procedure Laterality Date CYST REMOVAL 2022 VAGINAL DELIVERY x4 REVIEW OF SYSTEMS Review of Systems: Review of Systems Constitutional: Negative. HENT: Negative. Eyes: Negative. Respiratory: Negative. Cardiovascular: Negative. Gastrointestinal: Negative. Genitourinary: Negative. Musculoskeletal: Negative. Skin: Negative. Neurological: Negative. All other systems reviewed and are negative. Hematological: Negative. Endocrine: Negative. Allergic/Immunologic: Negative. OBJECTIVE Objective: Physical Exam Constitutional: Appearance: Normal appearance. She is well-developed. Cardiovascular: Rate and Rhythm: Normal rate and regular rhythm. Pulmonary: Effort: Pulmonary effort is normal. Breath sounds: Normal breath sounds. Abdominal: General: Bowel sounds are normal. There is no distension. Palpations: Abdomen is soft. Tenderness: There is no abdominal tenderness. There is no guarding or rebound. Musculoskeletal: General: No swelling. Normal range of motion. Right lower leg: No edema. Left lower leg: No edema. Neurological: Mental Status: She is alert and oriented to person, place, and time. Skin: General: Skin is warm and dry. Psychiatric: Mood and Affect: Mood normal. Behavior: Behavior normal. Vitals and nursing note reviewed. Exam conducted with a digital commentator present. Vitals: Estimated body mass index is 35.14 kg/m?? as calculated from the following: Height as of 12/15/22: 5' 8 . Weight as of this encounter: 231 lb 1.9 oz. BP: 112/70 Patient's last menstrual period was 10/21/2024. ASSESSMENT & PLAN ICD-10-CM 1. Third trimester ([facility]) Z34.93 POCT urinalysis dipstick manually resulted 2. 32 weeks gestation of ([facility]) Z3A.32 POCT urinalysis dipstick manually resulted 3. Multigravida of advanced maternal age in third trimester ([facility]) O09.523 US biophysical profile w non stress test Patient presents today for a routine obstetrics appointment. Patient is currently 32w5d with a Estimated Date of Delivery: 07/28/25. Patient given orders for NST/BPP's to be started until delivery. Orders will also be sent to [facility] Scheduling and [facility]BC. Patient to return to clinic in 2 weeks. Documented by Eugenia Crews LPN on behalf of: Yasmani Abdullahi DO documented in this encounter Miscellaneous Notes * Addendum Note - Eugenia Crews LPN - 06/07/2025 9:50 AM EDTAddended by: EUGENIA CREWS on: 06/21/2025 08:22 AM Modules accepted: Orders documented in this encounter Plan of Treatment Upcoming Encounters Date Type Department Care Team (Late st Contact Info) Description 07/05/2025 9:50 AM EDT [facility]ine [facility] [address] [place], [place] [address] [phone] Yasmani Abdullahi, DO [address] [place], [place] [phone] 07/12/2025 9:10 AM EDT [facility] [address] [facility] [place] [phone] Lanie Mendez, CO FOUNDER AND DIRECTOR [address] [place] [phone] 08/28/2025 10:10 AM EST Visit [facility] [address] [place], [place] [address] [place] [phone] Yasmani Abdullahi, DO [address] [place], [place] [phone] Scheduled Orders Name Type Priority Associated Diagnoses Orde r Schedule US biophysical profile w non stress test Imaging Routine Multigravida of advanced maternal age in third trimester ([facility]) Expected: 06/07/2025 (Approximate), Expires: 12/08/2025 documented as of this encounter Procedures Procedure Name Priority Date/Time Associated Diagnosis Comments POCT URINALYSIS DIPSTICK Routine 06/07/2025 10:31 AM EDT Third trimester ([facility]) 32 weeks gestation of ([facility]) documented in this encounter Results * US OB follow up transabdominal approach (06/21/2025 9:28 AM EDT) Anatomical Region Laterality Modality Body Ultrasound 06/21/2025 12:3 2 PM EDT Impressions 06/21/2025 12:55 PM EDT 1. Single, live intrauterine , current sonographic age of 36 weeks and 3 days, with an estimated date of delivery of July 16, 2025. 2. On the prior examination of May 22, 2025 weight was 88.4%. 3. GRAYSON on the prior was examination was 18. * Estimated Weight (g) by Percentile is based upon an accurate estimated age based on last menstrual period. TRANSCRIBED BY: ELECTRONICALLY SIGNED BY: Minh Reddy MD Narrative 06/21/2025 12:55 PM EDT FINDINGS: Comparison made with prior examination of May 22, 2025. A single, live intrauterine is present with normal cardiac rate of 151 beats per minute. Normal activity and amniotic fluid volume. Amniotic fluid index is 17 cm. Morphology is grossly normal. Cervix not visualized due to positioning. The current sonographic age is 36 weeks and 3 days, based on the following measurements: BPD 8.8 cm (35 weeks, 5 days) Head Circumference 32.5cm (36 weeks,6 days) Abdominal Circumference 33.3cm (37 weeks,1 days) Femur Length 7.0 cm (35 weeks, 2 days) Presentation Cephalic Weight (g) by Percentile 92.1% * These measurements result in an estimated date of delivery of July 16, 2025 The current estimated weight is 2987 grams (6 pound, 6 ounces). Procedure Note Minh Reddy MD - 06/21/2025 FINDINGS: Comparison made with prior examination of May 22, 2025. A single, liveintrauterine is present with normal cardiac rate of 151beats per minute. Normal activity and amniotic fluid volume.Amniotic fluid index is 17 cm. Morphology is grossly normal. Cervix notvisualized due to positioning. The current sonographic age is 36 weeksand 3 days, based on the following measurements: BPD 8.8 cm (35 weeks, 5 days) Head Circumference 32.5cm (36 weeks,6 days) Abdominal Circumference 33.3cm (37 weeks,1 days) Femur Length 7.0 cm (35 weeks, 2 days) Presentation Cephalic Weight (g) by Percentile 92.1% * These measurements result in an estimated date of delivery of 2024 The current estimated weight is 2987 grams (6 pound, 6ounces). IMPRESSION: 1. Single, live intrauterine , current sonographic age of 36weeks and 3 days, with an estimated date of delivery of June. 2. On the prior examination of May 22, 2025 weight was 88.4%. 3. GRAYSON on the prior was examination was 18. * Estimated Weight (g) by Percentile is based upon an accurateestimated age based on last menstrual period. TRANSCRIBED BY: ELECTRONICALLY SIGNED BY: Minh Reddy MD us Yasmani Abdullahi DO IMG OB US PROCEDURES Final Resul t * POCT urinalysis dipstick manually resulted (06/07/2025 10:31 AM EDT) Color, UA Yellow Clarity, UA Clear Glucose, UA Negative Negative - 2000(110) ++++ mg/dL Bilirubin, UA Negative Negative - 4(70) +++ mg/dL Ketones, UA Negative Negative - 160(16) ++++ mg/dL Spec Grav, UA 1.005 1 - 1.03 Blood, UA Negative Negative - 50 Tavon/mcL pH, UA 7.5 5 - 9 Protein, UA Negative Negative - 2000(20) ++++ mg/dL Urobilinogen, UA 1.0 0.2 - 12 mg/dL Leukocytes, UA Negative Negative - 500+++ Bertha/mcL Nitrite, UA Negative Negative - Positive Urine 06/07/2025 10:3 1 AM EDT Yasmani Abdullahi DO POINT OF CARE TEST ENTER/EDIT OR DERABLES Final Result documented in this encounter Visit Diagnoses Diagnosis Third trimester ([facility]) state, incidental 32 weeks gestation of ([facility]) Multigravida of advanced maternal age in third trimester ([facility]) History of molar Gestational diabetes mellitus (GDM), antepartum, gestational diabetes method of control unspecified ([facility]) Antepartum multigravida of advanced maternal age ([facility]) History of molar Gestational diabetes mellitus (GDM), antepartum, gestational diabetes method of control unspecified ([facility]) Antepartum multigravida of advanced maternal age ([facility]) documented in this encounter Care Teams Veneer Puller 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 Specialty Start Date End Date Kathy Reynaga MD [address] [place] [phone] PCP - General Family Medicine 01/27/24 documented as of this encounter
--- OUTSIDE RECORDS SUMMARY | 2025-06-21 09:00 | XMS_ITS | Encounter Summary ---
Author Organization [facility] Address [address] [place] [address] Care Team Providers Care Strap Sewer Name Role Phone Kathy Reynaga MD Primary Care Provider [phone] Encounter Details Date Type Department Care Team (Latest Contact Info) Description 06/21/2025 9:00 AM EDT Ancillary Procedure [facility] [address] [place] [address] History of molar ; Gestational diabetes mellitus (GDM), antepartum, gestational diabetes method of control unspecified ([facility]); Antepartum multigravida of advanced maternal age ([facility]) Social History Tobacco Use Types Packs/Day Years [...] 7:56 AM EDT Sexual Orientation Straight 01/27/2024 7: 56 AM EDT documented as of this encounter Plan of Treatment Upcoming Encounters Date Type Department Care Team (Late st Contact Info) Description 07/05/2025 9:50 AM EDT Routine [facility] [address] [place] [address] Yasmani Abdullahi DO [address] [place] [address] 07/12/2025 9:10 AM EDT Routine [facility] [address] [place] [phone] Lanie Mendez, CLIENT SERVICE SUPERVISOR [address] [place] [phone] 08/28/2025 10:10 AM EST Visit [facility] [address] [place] [phone] Yasmani Abdullahi DO [address] [facility] [address] [place], [place] [id number] documented as of this encounter Procedures Procedure Name Priority Date/Time Associated Diagnosis Comments US OB FOLLOW UP TRANSABDOMINAL APPROACH Routine 06/21/2025 9:28 AM EDT History of molar Gestational diabetes mellitus (GDM), antepartum, gestational diabetes method of control unspecified ([facility]) Antepartum multigravida of advanced maternal age ([facility]) documented in this encounter Results * US [...] IMG OB US PROCEDURES Final Resul t documented in this encounter Visit Diagnoses Diagnosis History of molar Gestational diabetes mellitus (GDM), antepartum, gestational diabetes method of control unspecified ([facility]) Antepartum multigravida of advanced maternal age ([facility]) documented in this encounter Care Teams Strap Sewer 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 Specialty Start Date End Date Kathy Reynaga MD [address] [place] [address] PCP - General Family Medicine 01/27/24 documented as of this encounter
--- OUTSIDE RECORDS SUMMARY | 2025-06-21 09:40 | XMS_ITS | Encounter Summary ---
Author Organization [facility] Address [address] [place] [address] Care Team Providers Care Major League Baseball Player Name Role Phone Kathy Reynaga MD Primary Care Provider [phone] Reason for Visit * Reason Comments Routine Visit Encounter Details Date Type Department Care Team (Late st Contact Info) Description 06/21/2025 9:40 AM EDT Routine [facility] [place] [facility] [address] [facility] [phone] Yasmani Abdullahi DO [address] [facility] [place] [address] Third trimester ([facility]); 34 weeks gestation of ([facility]); Multigravida of advanced maternal age in third trimester ([facility]) Social History Tobacco Use Types Packs/Day Years [...] Sign Reading Time Taken Comments Blood Pressure 124/72 06/21/2025 9:54 AM EDT Pulse - - Temperature - - Respiratory Rate - - Oxygen Saturation - - Inhaled Oxygen Concentration - - Weight 105 kg (231 lb) 06/21/2025 9:54 AM EDT Height - - Body Mass Index 35.12 12/15/2022 12:00 PM EST documented in this encounter Progress Notes * Eugenia Bridges, COOK APPRENTICE - 06/21/2025 9:40 AM EDT Reason for Appointment: Patient ID: [...] History: Diagnosis Date Anxiety Melanoma (HCC) 2021 HISTORY PAST MEDICAL HISTORY SOCIAL HISTORY [...] nursing note reviewed. Exam conducted with a log preparer present. Vitals: Estimated body mass index is 35.12 kg/m?? as calculated from the following: Height as of 12/15/22: 5' 8 . Weight as of this encounter: 231 lb. BP: 124/72 Patient's last menstrual period was 10/21/2024. ASSESSMENT & PLAN ICD-10-CM 1. Third trimester ([facility]) Z34.93 POCT urinalysis dipstick manually resulted 2. 34 weeks gestation of ([facility]) Z3A.34 3. Multigravida of advanced maternal age in third trimester ([facility]) O09.523 Patient presents today for a routine obstetrics appointment. Patient is currently 34w5d with a Estimated Date of Delivery: 07/28/25. Patient had growth scan today and fetus is 92%tile. Discussed possible timing of delivery with size, but will monitor throughout remainder of and di scuss further in the next few weeks. Patient to return to clinic in 2 weeks. Patient will reach outto her HR and obtain contact info for company that handles her time off claims. Once she speaks with them then she will know how to have paperwork filled out for maternity leave and post operative care leave. Patient to return ti clinic in 1-2 weeks for routine OB appointment. Documented by Eugenia Bridges LPN on behalf of: Yasmani Abdullahi DO documented in this encounter Plan of Treatment Upcoming Encounters Date Type Department Care Team (Late st Contact Info) Description 07/05/2025 9:50 AM EDT Routine [facility] [address] [place] [address] Yasmani Abdullahi DO [address] [place], [place] [phone] 07/12/2025 9:10 AM EDT Routine [facility] [address] [facility] [phone] Lanie Mendez, JD EDWARDS CONSULTANT [address] [facility] [place] [phone] 08/28/2025 10:10 AM EST Visit [facility] [address] [facility] [address] Yasmani Abdullahi DO [address] [facility] [address] [place], [place] [phone] documented as of this encounter Procedures Procedure Name Priority Date/Time Associated Diagnosis Comments POCT URINALYSIS DIPSTICK Routine 06/21/2025 9:55 AM EDT Third trimester ([facility]) documented in this encounter Results * (ABNORMAL) POCT urinalysis dipstick manually resulted (06/21/2025 9:55 AM EDT) Color, UA Yellow Clarity, UA Clear Glucose, UA Negative Negative - 2000(110) ++++ mg/dL Bilirubin, UA Negative Negative - 4(70) +++ mg/dL Ketones, UA Positive Negative - 160(16) ++++ mg/dL Spec Grav, UA 1.015 1 - 1.03 Blood, UA Negative Negative - 50 Tavon/mcL pH, UA 7.0 5 - 9 Protein, UA Negative Negative - 2000(20) ++++ mg/dL Urobilinogen, UA 1.0 0.2 - 12 mg/dL Leukocytes, UA 1+ Negative - 500+++ Bertha/mcL Nitrite, UA Negative Negative - Positive Urine 06/21/2025 9:55 AM EDT Yasmani Abdullahi DO POINT OF CARE TEST ENTER/EDIT OR DERABLES Final Result documented in this encounter Visit Diagnoses Diagnosis Third trimester ([facility]) state, incidental 34 weeks gestation of ([facility]) Multigravida of advanced maternal age in third trimester ([facility]) documented in this encounter Care Teams Major League Baseball Player 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 Specialty Start Date End Date Kathy Reynaga MD [address] [place] [address] PCP - General Family Medicine 01/27/24 documented as of this encounter
--- NOTE | 2025-07-04 | US_ITS ---
[place] [id number] Patient Name: NORIS SAUCEDA MRN: [id number] date: 1990 Sex: F Assigned Patient Location: [facility] Current Patient Location: Accession/Order Number: [id number] Exam Date: 07/04/2025 07:33 Report Date: 07/04/2025 09:15 At the request of: MARBELLA OMER DO Procedure: US OB BPP w non-stress BIOPHYSICAL PROFILE: CLINICAL INFORMATION: MULTIGRAVIDA ADVANCED MATERNAL AGE O09.523 COMPARISON: 06/26/2025 There is a single live intrauterine gestation in cephalic presentation. The reported gestational age is 36 weeks 4 days. The heart rate measures 134 beats per minute. FINDINGS: TONE: 1 or more episodes of activity extension and flexion of extremity or opening and closing of the hand [Y] 2/2 GROSS BODY MOVEMENTS: 3 or more discrete body or limb movements [Y] 2/2 BREATHING MOVEMENTS: 1 or more episodes of breathing lasting at least 30 seconds [Y] 2/2 GRAYSON: A single deepest vertical pocket of amniotic fluid greater than 2 cm [Y] 2/2 GRAYSON: 23.4 cm. The 95th percentile is 24.9 cm. Total score: 8/8 US/US OB BPP w non-stress IMPRESSION: NORMAL BIOPHYSICAL PROFILE. BORDERLINE PROMINENT GRAYSON. Impression dictated by: Annel Barnhart M.D. 07/04/2025 9:15 AM Dictation Location: [place] [address] Electronically authenticated by: [id number] Y Date: 07/04/2025 09:15
--- OUTSIDE RECORDS SUMMARY | 2025-07-04 07:33 | XMS_ITS | Encounter Summary ---
Author Organization [facility] Address [address] [place] [address] Care Team Providers Care Ballast Cleaning Machine Operator Name Role Phone Kathy Reynaga MD Primary Care Provider [phone] Encounter Details Date Type Department Care Team (Late st Contact Info) Description 12/28/2024 Abstract [facility] [address] [place] [phone] Yasmani Abdullahi DO [facility] [address] [place], [place] [phone] Social History Tobacco Use Types Packs/Day Years [...] EDT Routine [facility] [address] [place] [phone] Yasmani Abdullahi DO [address] [place], [place] [phone] 07/12/2025 9:10 AM EDT Routine [facility] [address] [place] [address] [place] [address] Lanie Mendez, MIX MAKER [address] [facility] [place] [phone] 08/28/2025 10:10 AM EST Visit [facility] [address] [facility] [place] [address] Yasmani Abdullahi DO [address] [facility] [address] [place], [place] [phone] documented as of this encounter Visit Diagnoses Not on filedocumented in this encounter Care Teams Ballast Cleaning Machine Operator 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 Specialty Start Date End Date Kathy Reynaga MD [address] [facility] [place] [place] [address] PCP - General Family Medicine 01/27/24 documented as of this encounter
--- OUTSIDE RECORDS SUMMARY | 2025-07-04 07:33 | XMS_ITS | Encounter Summary ---
Author Organization [facility] Address [address] [place] [address] Care Team Providers Care Spinner Iron Name Role Phone Kathy Reynaga MD Primary Care Provider [phone] Encounter Details Date Type Department Care Team (Late st Contact Info) Description 12/25/2024 Abstract [facility] [address] [place] [phone] Yasmani Abdullahi DO [facility] [place], [place] [phone] Social History Tobacco Use Types Packs/Day Years [...] Routine [facility] [address] [place] [address] Yasmani Abdullahi DO [address] [place], [place] [phone] 07/12/2025 9:10 AM EDT Routine [facility] [address] [place] [address] [place] [phone] Lanie Mendez, BINDER LAYER [address] [facility] [place] [address] 08/28/2025 10:10 AM EST Visit [facility] [address] [facility] [address] Yasmani Abdullahi DO [address] [facility] [address] [place], [place] [phone] documented as of this encounter Visit Diagnoses Not on filedocumented in this encounter Care Teams Spinner Iron 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 Specialty Start Date End Date Kathy Ryenaga MD [address] [facility] [place] [address] PCP - General Family Medicine 01/27/24 documented as of this encounter
--- OUTSIDE RECORDS SUMMARY | 2025-07-04 07:33 | XMS_ITS | Encounter Summary ---
Author Organization [facility] Address [address] [place] [address] Care Team Providers Care Exchange Clerk Name Role Phone Kathy Reynaga MD Primary Care Provider [phone] Encounter Details Date Type Department Care Team (Late st Contact Info) Description 05/09/2025 Abstract [facility] [address] [place] [address] Yasmani Abdullahi DO [facility] [place], [place] [phone] Social History Tobacco Use Types Packs/Day Years [...] EDT Routine [facility] [address] [place] [address] Yasmani Abdullahi DO [address] [place], [place] [phone] 07/12/2025 9:10 AM EDT Routine [facility] [address] [place] [address] [place] [address] Lanie Mendez, GEOLOGY INSTRUCTOR [address] [facility] [place] [address] 08/28/2025 10:10 AM EST Visit [facility] [address] [facility] [address] Yasmani Abdullahi DO [address] [facility] [address] [place], [place] [phone] documented as of this encounter Visit Diagnoses Not on filedocumented in this encounter Care Teams Exchange Clerk 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 Specialty Start Date End Date Kathy Reynaga MD [address] [facility] [place] [address] PCP - General Family Medicine 01/27/24 documented as of this encounter
--- OUTSIDE RECORDS SUMMARY | 2025-07-04 07:33 | XMS_ITS | Encounter Summary ---
Author Organization [facility] Address [address] [facility], [address] [place] [address] Care Team Providers Care Tuber Machine Operator Name Role Phone Kathy Reynaga MD Primary Care Provider [phone] Encounter Details Date Type Department Care Team (Late st Contact Info) Description 04/17/2014 FollowUp Telephone Encounter [facility] Labor and Delivery [address] [place] [id number] Maria Eugenia Thomas RN Social History Tobacco [...] your baby had an appointment with the optical manufacturing technician yet? Yes last Wednesday and 04/17 and [...] your stay? follow-up phone call with our employee services manager? No, wonderful. During your stay, did any [...] on filedocumented in this encounter Care Teams Tuber Machine Operator 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 Specialty Start Date End Date Kathy Reynaga MD PCP - General 07/15/16 documented as of this encounter
--- OUTSIDE RECORDS SUMMARY | 2025-07-04 07:33 | XMS_ITS | Encounter Summary ---
Author Organization [facility] Address [address] [place] [address] Care Team Providers Care Shrimp Peeling Machine Operator Name Role Phone Kathy Reynaga MD Primary Care Provider [phone] Encounter Details Date Type Department Care Team (Late st Contact Info) Description 06/22/2025 Clinisync Result Encounter [facility] External Department Unsolicited Yasmani Abdullahi, DO [address] [place] [address] Social History Tobacco Use Types Packs/Day Years [...] Description 07/05/2025 9:50 AM EDT Routine [facility] [address] [place] [address] Yasmani Abdullahi DO [address] [place] [address] 07/12/2025 9:10 AM EDT Routine [facility] [address] [facility] [place] [address] Lanie Mendez, SAMUEL [address] [facility] [place] [address] 08/28/2025 10:10 AM EST Visit [facility] [address] [place] [address] Yasmani Abdullahi DO [address] [facility] [place] [address] documented as of this encounter Procedures Procedure Name Priority Date/Time Associated Diagnosis Comments US OB BPP W NON-STRESS 06/22/2025 9:47 PM EDT documented in this encounter Results * US OB BPP W NON-STRESS (06/22/2025 9:47 PM EDT) Anatomical Region Laterality Modality Other 06/22/2025 9:4 7 PM EDT Narrative 06/22/2025 9:50 [place] [address] Ultrasound Report Signed Patient: TREVA GOETZ MR#: [id number] : 1990 Acct:[id number] Age/Sex: 35 / F ADM Date: 06/22/25 Loc: US Attending Dr: Yasmani Abdullahi D.O. Ordering Physician: Yasmani Abdullahi D.O. Date of Service: 06/22/25 Procedure(s): US OB BPP w non-stress Accession Number(s): [id number] cc: Kathy Reynaga M.D.; Yasmani Abdullahi D.O. The [address] [address] Patient Name: TREVA GOETZ MRN: [id number] date: 1990 Sex: F Assigned Patient Location: [facility] Current Patient Location: Accession/Order Number: [id number] Exam Date: 06/22/2025 17:18 Report Date: 06/22/2025 [...] Flores M.D. 06/22/2025 9:47 PM Dictation Location: [place] [address] Electronically authenticated by: [id number] Y Date: 06/22/2025 21:47 Dictated By: Alfonzo Florse D.O. Signed By: 06/22/252149 DD/ 46 TD/TT: Oxygen System Tester: Procedure Note Radiology, Radiologist, MD - 06/22/2025 [place] [address] Ultrasound Report Signed Patient: TREVA GOETZ EMR#: [id number] : 1990Acct:[id number] Age/Sex: 35 / FADM Date: 06/22/25 Loc: US Attending Dr: Yasmani Abdullahi D.O. Ordering Physician: Yasmani Abdullahi D.O. Date of Service: 06/22/25 Procedure(s): US OB BPP w non-stress Accession Number(s): [id number] cc: Kathy Reynaga M.D.; Yasmani Abdullahi D.O. The [address] [address] Patient Name: TREVA GOETZ MRN: [id number] date: 1990 Sex: F Assigned Patient Location: [facility] Current Patient Location: Accession/Order Number: [id number] Exam Date: 06/22/2025 17:18 Report Date: 06/22/2025 [...] Flores M.D. 06/22/2025 9:47 PM Dictation Location: [facility] Electronically authenticated by: [id number] Y Date: 1:47 Dictated By: Alfonzo Flores D.O. Signed By:06/22/252149 DD/ 46 TD/TT: Oxygen System Tester: us Yasmani Abdullahi DO [facility] Final Result documented in this encounter Visit Diagnoses Not on filedocumented in this encounter Care Teams Shrimp Peeling Machine Operator 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 Specialty Start Date End Date Kathy Reynaga MD [address] [place] [address] PCP - General Family Medicine 01/27/24 documented as of this encounter
--- OUTSIDE RECORDS SUMMARY | 2025-07-04 07:33 | XMS_ITS | Encounter Summary ---
Author Organization [facility] Address [address] [place] [address] Care Team Providers Care Sourcing Intern Name Role Phone Kathy Reynaga MD Primary Care Provider [phone] Encounter Details Date Type Department Care Team (Late st Contact Info) Description 03/01/2025 Abstract [facility] [address] [facility] [place] [address] Tamiko Montana MA [...] 9:50 AM EDT Routine [facility] [address] [place] [phone] Yasmani Abdullahi DO [address] [place] [address] 07/12/2025 9:10 AM EDT Routine [facility] [address] [facility] [place] [address] Lanie Mendez, DUMP TRUCK DRIVER [address] [facility] [place] [address] 08/28/2025 10:10 AM EST Visit [facility] [address] [facility] [place] [address] Yasmani Abdullahi DO [address] [facility] [place] [address] documented as of this encounter Visit Diagnoses Not on filedocumented in this encounter Care Teams Sourcing Intern 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 Specialty Start Date End Date Kathy Reynaga MD [address] [facility] [place] [address] PCP - General Family Medicine 01/27/24 documented as of this encounter
--- OUTSIDE RECORDS SUMMARY | 2025-07-04 07:33 | XMS_ITS | Encounter Summary ---
Author Organization [facility] Address [address] [facility], [address] [place] [address] Care Team Providers Care Thread Reeler Name Role Phone Kathy Reynaga MD Primary Care Provider [phone] Encounter Details Date Type Department Care Team (Late st Contact Info) Description 10/17/2016 FollowUp Telephone Encounter [facility] Labor and Delivery [address] [place] [phone] Anneliese Perkins, RN Social History Tobacco Use [...] on filedocumented in this encounter Care Teams Thread Reeler 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 Specialty Start Date End Date Kathy Reynaga MD PCP - General 07/15/16 documented as of this encounter
--- OUTSIDE RECORDS SUMMARY | 2025-07-04 07:33 | XMS_ITS | Encounter Summary ---
Author Organization [facility] Address [address] [place] [address] Care Team Providers Care Assistant Women'S Basketball Coach Name Role Phone Kathy Reynaga MD Primary Care Provider [phone] Encounter Details Date Type Department Care Team (Late st Contact Info) Description 02/23/2025 Orders Only [facility] [address] [place] [address] Tamiko Montana MA Social History Tobacco [...] EDT Routine [facility] [address] [place] [address] Yasmani Abdullahi DO [address] [place] [address] 07/12/2025 9:10 AM EDT Routine [facility] [address] [facility] [place] [address] Lanie Mendez, ELECTRONEURODIAGNOSTIC TECHNOLOGIST [address] [facility] [place] [address] 08/28/2025 10:10 AM EST Visit [facility] [place] [address] [facility] [place] [address] Yasmani Abdullahi DO [address] [facility] [place] [address] documented as of this encounter Procedures Procedure Name Priority Date/Time Associated Diagnosis Comments PAP SMEAR Routine 02/15/2025 12:00 AM EDT documented in this encounter Results * Pap Smear (02/15/2025 12:00 AM EDT) Swab Cervical swab / Unknown Yasmani Abdullahi DO LAB CYTOLOGY ORDERABLES Final Re sult EXTERNAL LAB documented in this encounter Visit Diagnoses Not on filedocumented in this encounter Care Teams Assistant Women'S Basketball Coach 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 Specialty Start Date End Date Kathy Reynaga MD [address] [facility] [place] [address] PCP - General Family Medicine 01/27/24 documented as of this encounter
--- OUTSIDE RECORDS SUMMARY | 2025-07-04 07:33 | XMS_ITS | Encounter Summary ---
Author Organization [facility] Address [address] [place] [address] Care Team Providers Care Audit Practice Intern Name Role Phone Kathy Reynaga MD Primary Care Provider [phone] Encounter Details Date Type Department Care Team (Late st Contact Info) Description 06/27/2025 Clinisync Result Encounter [facility] External Department Unsolicited Yasmani Abdullahi, DO [address] [place] [address] Social History Tobacco Use Types Packs/Day Years [...] Routine [facility] [address] [place] [address] Yasmani Abdullahi DO [address] [place] [address] 07/12/2025 9:10 AM EDT Routine [facility] [address] [facility] [place] [address] Lanie Mendez, SAMUEL [address] [facility] [place] [address] 08/28/2025 10:10 AM EST Visit [facility] [address] [place] [address] Yasmani Abdullahi DO [address] [facility] [place] [address] documented as of this encounter Procedures Procedure Name Priority Date/Time Associated Diagnosis Comments US OB BPP W NON-STRESS 06/27/2025 8:36 AM EDT documented in this encounter Results * US OB BPP W NON-STRESS (06/27/2025 8:36 AM EDT) Anatomical Region Laterality Modality Other 06/27/2025 8:3 6 AM EDT Narrative 06/27/2025 8:39 [place] [address] Ultrasound Report Signed Patient: TREVA GOETZ MR#: [id number] : 1990 Acct:[id number] Age/Sex: 35 / F ADM Date: 06/27/25 Loc: US Attending Dr: Yasmani Abdullahi D.O. Ordering Physician: Yasmani Abdullahi D.O. Date of Service: 06/27/25 Procedure(s): US OB BPP w non-stress Accession Number(s): [id number] cc: Kathy Reynaga M.D.; Yasmani Abdullahi D.O. The [address] [address] Patient Name: TREVA GOETZ MRN: [id number] date: 1990 Sex: F Assigned Patient Location: Current Patient Location: Accession/Order Number: [id number] Exam Date: 06/27/2025 07:35 Report Date: 06/27/2025 08:36 At the request of: YASMANI ABDULLAHI DO Procedure: US OB BPP w non-stress BIOPHYSICAL PROFILE: CLINICAL INFORMATION: Multigravida of advanced maternal age COMPARISON: 06/22/2025 There is a single live intrauterine gestation in cephalic presentation. The reported gestational age is 35 weeks 4 days The heart rate [id number] beats per minute. FINDINGS: TONE: 1 or [...] Barnhart M.D. 06/27/2025 8:36 AM Dictation Location: [place] [address] Electronically authenticated by: [id number] Y Date: 06/27/2025 08:36 Dictated By: Annel Barnhart M.D. Signed By: 06/27/2539 DD/ 5 TD/TT: Guest Services Representative: Procedure Note Radiology, Radiologist, - 06/27/2025 [place] [address] Ultrasound Report Signed Patient: TREVA GOTEZ EMR#: [id number] : 1990Acct:[id number] Age/Sex: 35 / FADM Date: 06/27/25 Loc: US Attending Dr: Yasmani Abdullahi D.O. Ordering Physician: Yasmani Abdullahi D.O. Date of Service: 06/27/25 Procedure(s): US OB BPP w non-stress Accession Number(s): [id number] cc: Kathy Reynaga M.D.; Yasmani Abdullahi D.O. The [place] [address] Patient Name: TREVA GOETZ MRN: [id number] date: 1990 Sex: F Assigned Patient Location: US Current Patient Location: Accession/Order Number: [id number] Exam Date: 06/27/2025 07:35 Report Date: 06/27/2025 08:36 At the request of: YASMANI ABDULLAHI DO Procedure: US OB BPP w non-stress BIOPHYSICAL PROFILE: CLINICAL INFORMATION: Multigravida of advanced maternal age COMPARISON: 06/22/2025 There is a single live intrauterine gestation in cephalic presentation.The reported gestational age is 35 weeks 4 days The heart [id number] beats per minute. FINDINGS: TONE: 1 or [...] Barnhart M.D. 06/27/2025 8:36 AM Dictation Location: [place] [address] Electronically authenticated by: [id number] Y Date: 508:36 Dictated By: Annel Barnhart M.D. Signed By:06/27/25838 DD/ 5 TD/TT: Guest Services Representative: Yasmani Abdullahi DO [facility] Final Result documented in this encounter Visit Diagnoses Not on filedocumented in this encounter Care Teams Audit Practice Intern 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 Specialty Start Date End Date Kathy Reynaga MD [address] PCP - General Family Medicine 01/27/24 documented as of this encounter
--- OUTSIDE RECORDS SUMMARY | 2025-07-04 07:33 | XMS_ITS | Encounter Summary ---
Author Organization [facility] Address [address] [facility] [address], [address] [place] [address] Care Team Providers Care Injection Molding Machine Offbearer Name Role Phone Kathy Reynaga MD Primary Care Provider [phone] Encounter Details Date Type Department Care Team (Late st Contact Info) Description 10/09/2016 FollowUp Telephone Encounter [facility] Labor and Delivery [address] [place], [place] [id number] Nelsy Guardado, [place] [address] Social History Tobacco Use Types Packs/Day Years [...] on filedocumented in this encounter Care Teams Injection Molding Machine Offbearer 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 Specialty Start Date End Date Kathy Reynaga MD PCP - General 07/15/16 documented as of this encounter
--- OUTSIDE RECORDS SUMMARY | 2025-07-04 07:33 | XMS_ITS | Encounter Summary ---
Author Organization [facility] Address [address] [place] [address] Care Team Providers Care Cobbler Upper Name Role Phone Kathy Reynaga MD Primary Care Provider [phone] Encounter Details Date Type Department Care Team (Late st Contact Info) Description 03/02/2025 Abstract [facility] [address] [facility] [place] [address] Tamiko Montana MA Social History Tobacco [...] 9:50 AM EDT Routine [facility] [address] [place] [address] Yasmani Abdullahi DO [address] [place] [address] 07/12/2025 9:10 AM EDT Routine [facility] [address] [facility] [place] [address] Lanie Mendez, INSTRUCTION ASSISTANT PRINCIPAL [address] [facility] [place] [address] 08/28/2025 10:10 AM EST Visit [facility] [address] [facility] [place] [address] Yasmani Abdullahi DO [address] [facility] [place] [address] documented as of this encounter Visit Diagnoses Not on filedocumented in this encounter Care Teams Cobbler Upper 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 Specialty Start Date End Date Kathy Reynaga MD [address] [facility] [place] [address] PCP - General Family Medicine 01/27/24 documented as of this encounter
--- OUTSIDE RECORDS SUMMARY | 2025-07-04 07:33 | XMS_ITS | Encounter Summary ---
Author Organization [facility] Address [address] [place] [address] Care Team Providers Care Baking Assistant Name Role Phone Kathy Reynaga MD Primary Care Provider [phone] Encounter Details Date Type Department Care Team (Late st Contact Info) Description 03/16/2025 Abstract [facility] [address] [place] [address] Yasmani Abdullahi DO [facility] [place], [place] [address] Social History Tobacco Use Types Packs/Day Years [...] EDT Routine [facility] [address] [place] [address] Yasmani Abdullahi DO [address] [place], [place] [address] 07/12/2025 9:10 AM EDT Routine [facility] [address] [place] [address] [place] [address] Lanie Mendez, SULFURIC ACID PLANT SUPERVISOR [address] [facility] [place] [address] 08/28/2025 10:10 AM EST Visit [facility] [address] [facility] [place] [address] Yasmani Abdullahi DO [address] [facility] [address] [place], [place] [address] documented as of this encounter Visit Diagnoses Not on filedocumented in this encounter Care Teams Baking Assistant 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 Specialty Start Date End Date Kathy Reynaga MD [address] [facility] [place] [address] PCP - General Family Medicine 01/27/24 documented as of this encounter
--- OUTSIDE RECORDS SUMMARY | 2025-07-04 07:33 | XMS_ITS | Encounter Summary ---
Author Organization [facility] Address [address] [place] [address] Care Team Providers Care Functional Skills Tutor Name Role Phone Kathy Reynaga MD Primary Care Provider [phone] Encounter Details Date Type Department Care Team (Late st Contact Info) Description 03/29/2025 Abstract [facility] [address] [place] [address] Yasmani Abdullahi DO [facility] [place], [place] [address] Social History Tobacco Use Types Packs/Day Years [...] Routine [facility] [address] [place] [address] Yasmani Abdullahi DO [address] [place], [place] [address] 07/12/2025 9:10 AM EDT Routine [facility] [address] [place] [address] [place] [address] Lanie Mendez, LEARNING CONSULTANT [address] [facility] [place] [address] 08/28/2025 10:10 AM EST Visit [facility] [address] [facility] [place] [address] Yasmani Abdullahi DO [address] [facility] [address] [place], [place] [address] documented as of this encounter Visit Diagnoses Not on filedocumented in this encounter Care Teams Functional Skills Tutor 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 Specialty Start Date End Date Kathy Reynaga MD [address] [facility] [place] [address] PCP - General Family Medicine 01/27/24 documented as of this encounter
--- OUTSIDE RECORDS SUMMARY | 2025-07-04 07:33 | XMS_ITS | Encounter Summary ---
Author Organization [facility] Address [address] [place] [address] Care Team Providers Care Brusher Warp Name Role Phone Kathy Reynaga MD Primary Care Provider [phone] Encounter Details Date Type Department Care Team (Late st Contact Info) Description 12/27/2024 Abstract [facility] [address] [place] [address] Yasmani Abdullahi DO [facility] [place], [place] [address] Social History Tobacco Use Types Packs/Day Years [...] EDT Routine [facility] [address] [place] [address] Yasmani Abdullahi DO [address] [place], [place] [address] 07/12/2025 9:10 AM EDT Routine [facility] [address] [place] [address] [place] [address] Lanie Mendez, STAFF MIDWIFE [address] [facility] [place] [address] 08/28/2025 10:10 AM EST Visit [facility] [address] [facility] [place] [address] Yasmani Abdulalhi DO [address] [facility] [address] [place], [place] [address] documented as of this encounter Visit Diagnoses Not on filedocumented in this encounter Care Teams Brusher Warp 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 Specialty Start Date End Date Kathy Reynaga MD [address] [facility] [place] [address] PCP - General Family Medicine 01/27/24 documented as of this encounter
--- OUTSIDE RECORDS SUMMARY | 2025-07-04 07:33 | XMS_ITS | Clinical Summary ---
Author Organization [facility] Address [address] [facility], [address] [place] [address] Care Team Providers Care Winterizer Name Role Phone Kathy Reynaga MD Primary Care Provider [phone] Allergies No known active allergies Medications MV-Min-Fe Fum-FA-DHA ( 1 PO) Take by mouth Active amoxicillin (AMOXIL) 875 MG tablet Take 875 mg by mouth 2 times daily Active Active Problems Patient Care Coordination No te Formatting of this note migh t be different from the original. [facility] risk assesment form = NA [...] of Treatment Not on file Insurance [address] [address] [employer] Advance Directives * Full Code [...] 4:53 PM 04/12/2014 3:44 AM Care Teams Winterizer 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 Specialty Start Date End Date Kathy Reynaga MD PCP - General 07/15/16
--- OUTSIDE RECORDS SUMMARY | 2025-07-04 07:33 | XMS_ITS | Encounter Summary ---
Author Organization [facility] Address [address] [place] [address] Care Team Providers Care Maltster Name Role Phone Kathy Reynaga MD Primary Care Provider [phone] Encounter Details Date Type Department Care Team (Late st Contact Info) Description 12/29/2024 Abstract [facility] [address] [place] [address] Yasmani Abdullahi DO [facility] [place], [place] [address] Social History Tobacco Use Types Packs/Day Years [...] Routine [facility] [address] [place] [address] Yasmani Abdullahi DO [address] [place], [place] [address] 07/12/2025 9:10 AM EDT Routine [facility] [address] [place] [address] [place] [address] Lanie Mendez, PROCESS STRIPPER [address] [facility] [place] [address] 08/28/2025 10:10 AM EST Visit [facility] [address] [facility] [place] [address] Yasmani Abdullahi DO [address] [facility] [address] [place], [place] [address] documented as of this encounter Visit Diagnoses Not on filedocumented in this encounter Care Teams Maltster 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 Specialty Start Date End Date Kathy Reynaga MD [address] [facility] [place] [address] PCP - General Family Medicine 01/27/24 documented as of this encounter
--- OUTSIDE RECORDS SUMMARY | 2025-07-04 07:33 | XMS_ITS | Encounter Summary ---
Author Organization [facility] Address [address] [place] [address] Care Team Providers Care Marketing And Promotions Manager Name Role Phone Kathy Reynaga MD Primary Care Provider [phone] Encounter Details Date Type Department Care Team (Late st Contact Info) Description 12/29/2024 Abstract [facility] [address] [place] [address] Yasmani Abdullahi DO [facility] [place], [place] [address] Social History Tobacco Use Types Packs/Day Years [...] EDT Routine [facility] [address] [place] [address] Yasmani Abdullahi DO [address] [place], [place] [address] 07/12/2025 9:10 AM EDT Routine [facility] [address] [place] [address] [place] [address] Lanie Mendez, HELP DESK ENGINEER [address] [facility] [place] [address] 08/28/2025 10:10 AM EST Visit [facility] [address] [facility] [place] [address] Yasmani Abdullahi DO [address] [facility] [address] [place], [place] [address] documented as of this encounter Visit Diagnoses Not on filedocumented in this encounter Care Teams Marketing And Promotions Manager 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 Specialty Start Date End Date Kathy Reynaga MD [address] [facility] [place] [address] PCP - General Family Medicine 01/27/24 documented as of this encounter
--- OUTSIDE RECORDS SUMMARY | 2025-07-04 07:33 | XMS_ITS | Clinical Summary ---
Author Organization [facility] Address [address] [place] [address] Care Team Providers Care Compensation Vice President Name Role Phone Kathy Reynaga MD Primary Care Provider [phone] Allergies No known active allergies Medications MV-[place] [...] [place] [address] Marbella Abdullahi, DO Third trimester ([facility] 34 weeks gestation of ([facility]); Multigravida of advanced maternal age in third trimester ([facility]) 06/21/2025 9:00 AM EDT Ancillary [place] [address] History of molar ; Gestational diabetes mellitus (GDM), antepartum, gestational diabetes method of control unspecified ([facility]); Antepartum multigravida of advanced maternal age ([facility]) 06/19/2025 Clinisync Result Encounter [facility] External Department Unsolicited Marbella Abdullahi, 06/07/2025 9:50 AM ED[place] [address] Marbella Abdullahi, Third trimester ([facility]); 32 weeks gestation of ([facility]); Multigravida of advanced maternal age in third trimester ([facility]); History of molar ; Gestational diabetes mellitus (GDM), antepartum, gestational diabetes method of control unspecified ([facility]); Antepartum multigravida of advanced maternal age ([facility]) 06/07/2025 Bamboo [place] [address] Marbella Abdullahi, 05/31/2025 [place] [address] Luz Gonsalez LPN 05/22/2025 11:00 AM EDT [place] [address] Marbella Abdullahi, 30 weeks gestation of ([facility]); Third trimester ([facility]); Antepartum multigravida of advanced maternal age ([facility]); Gestational diabetes mellitus (GDM), antepartum, gestational diabetes method of control unspecified ([facility]) 05/22/2025 10:30 AM EDT Ancillary Procedure [facility] [address] [place] [address] Antepartum multigravida of advanced maternal age ([facility]) 05/10/2025 8:40 AM EDT Routine [facility] [address] [place] [address] Marbella Abdullahi, size consistent with dates, antepartum ([facility]) (Primary Dx); Third trimester ([facility]); 28 weeks gestation of ([facility]); Antepartum multigravida of advanced maternal age ([facility]) 05/10/2025 Bamboo flowsheet [facility] [address] [place] [address] Marbella Abdullahi, 05/09/2025 Abstract [facility] [address] [facility] [place] [address] Marbella Abdullahi, 04/10/2025 10:20 AM EDT Routine [facility] [address] [place] [address] Marbella Abdullahi, Second trimester ([facility]); 24 weeks gestation of ([facility]); Diabetes mellitus screening 04/10/2025 Bamboo flowsheet [facility] [address] [place] [address] Marbella Abdullahi, 04/09/2025 Telephone [facility] [...] 07/05/2025 9:50 AM EDT Routine [facility] [address] [place] [address] [place] [address] Marbella Abdullahi DO [address] [place] [address] [place] [address] 07/12/2025 9:10 AM EDT Routine [facility] [address] [place] [address] [place] [address] Lanie Mendez, SAMUEL [address] [facility] [place] [address] 08/28/2025 10:10 AM EST Visit [facility] [address] [place] [address] [place] [address] Kaylen, Marbella, [address] [place] [address] Procedures Procedure Name Priority Date/Time Associated Diagnosis [...] Routine 04/10/2025 10:46 AM EDT Second trimester ([facility]) 24 weeks gestation of ([facility]) from Last 3 Months Results * US OB BPP W NON-STRESS (06/27/2025 8:36 AM EDT) Only the most recent of3 resultswithin the time period is included. Anatomical Region Laterality Modality Other 06/27/2025 8:36 AM EDT Narrative 06/27/2025 8:[place] [address] Ultrasound Report Signed Patient: TREVA GOETZ MR#: [id number] : 1990 Acct:[id number] Age/Sex: 35 / F ADM Date: 06/27/25 Loc: US Attending Dr: Marbella Abdullahi D.O. Ordering Physician: Marbella Abdullahi D.O. Date of Service: 06/27/25 Procedure(s): US OB BPP w non-stress Accession Number(s): [id number] cc: Kathy Reynaga M.D.; Marbella Abdullahi D.O. [place] [id number] Patient Name: TREVA GOETZ MRN: [id number] date: 1990 Sex: F Assigned Patient Location: US Current Patient Location: Accession/Order Number: [id number] Exam Date: 06/27/2025 07:35 Report Date: 06/27/2025 08:36 At the request of: MARBELLA ABDULLAHI DO Procedure: US OB BPP w non-stress BIOPHYSICAL PROFILE: CLINICAL INFORMATION: Multigravida of advanced maternal age COMPARISON: 06/22/2025 There is a single live intrauterine gestation in cephalic presentation. The reported gestational age is 35 weeks 4 days The heart rate [id number] beats per minute. FINDINGS: TONE: 1 or [...] Barnhart M.D. 06/27/2025 8:36 AM Dictation Location: [place] [address] Electronically authenticated by: [id number] Y Date: 06/27/2025 08:36 Dictated By: Annel Barnhart M.D. Signed By: 06/27/25838 DD/ 5 TD/TT: Head Baker: Procedure Note Radiology, Radiologist, - 06/27/2025 [place] [address] Ultrasound Report Signed Patient: TREVA GOETZ EMR#: [id number] : 1990Acct:[id number] Age/Sex: 35 / FADM Date: 06/27/25 Loc: US Attending Dr: Marbella Abdullahi D.O. Ordering Physician: Marbella Abdullahi D.O. Date of Service: 06/27/25 Procedure(s): US OB BPP w non-stress Accession Number(s): [id number] cc: Kathy Reynaga M.D.; Marbella Abdullahi D.O. The [place] [id number] Patient Name: TREVA GOETZ MRN: [id number] date: 1990 Sex: F Assigned Patient Location: US Current Patient Location: Accession/Order Number: [id number] Exam Date: 06/27/2025 07:35 Report Date: 06/27/2025 08:36 At the request of: MARBELLA ABDULLAHI DO Procedure: US OB BPP w non-stress BIOPHYSICAL PROFILE: CLINICAL INFORMATION: Multigravida of advanced maternal age COMPARISON: 06/22/2025 There is a single live intrauterine gestation in cephalic presentation.The reported gestational age is 35 weeks 4 days The heart [id number] beats per minute. FINDINGS: TONE: 1 or [...] Barnhart M.D. 06/27/2025 8:36 AM Dictation Location: [place] [address] Electronically authenticated by: [id number] Y Date: 508:36 Dictated By: Annel Barnhart M.D. Signed By:06/27/2539 DD/ TD/TT: Head Baker: us Marbella Kaylen DO [facility] Final [...] 3 Months Insurance [employer] Care Teams Compensation Vice President 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 Specialty Start Date End Date Kathy Reynaga MD [address] [facility] [place] [address] PCP - General Family Medicine 01/27/24
--- OUTSIDE RECORDS SUMMARY | 2025-07-04 07:34 | XMS_ITS | CCD ---
Author Organization [facility] Care Team Providers Care Layer Out Plate Glass Name Role Phone OLIVA, MARIANELA E Unavailable Unavailable OLIVA, MARIANELA E Unavailable Unavailable OLIVA, MARIANELA E Unavailable Unavailable Macario Jarvis Attending Unavailable OLIVA, MARIANELA~[phone] UNKNOWN Primary Care Unavailable HEDGES, CHAU Admitting Unavailable HEDGES, CHAU Attending Unavailable HEDGES, CHAU Referring Unavailable OLIVA, MARIANELA~[phone] UNKNOWN Primary Care Unavailable HEDGES, CHAU W [...] Marianela Oliva Primary Care Provider Kuns - [facility], DO Mario P Attending [...] Emergency Provider Yasmani Abdullahi DO Attending Provider [phone] Marianela Oliva MD Primary Care Provider Marianela Oliva MD Primary Care Provider Marianela Oliva MD Primary Care Provider [phone] Kuns - [facility], Mario P Admitting Unavailable [...] Care Provider Yasmani Abdullahi DO Attending Provider [phone] [facility] Mario SANTAMARIA Attending Provider Marianela Oliva [...] antepartum, gestational diabetes method of control unspecified ([facility]) 1 kit in the morning and 1 [...] Drug Class(es) Dates Sig (Normalized) Sig (Original) [id number] 200 actuat albuterol 0.09 mg/actuat metered dose [...] oral tablet (6 sources) alpha-Adrenergic Agonist, Uncompetitive X-eqrhdp-M-aspartat e Receptor Antagonist, Sigma-1 Agonist Start: 08-11-2024 [...] US OB BPP W NON-STRESS on 06-27-2025 [place] [address] Ultrasound Report Signed Patient: NORIS GOETZ MR#: [id number] : 1990 Acct:[id number] Age/Sex: 35 / F ADM Date: 06/27/25 Loc: US Attending Dr: Yasmani Abdullahi D.O. Ordering Physician: Yasmani Abdullahi D.O. Date of Service: 06/27/25 Procedure(s): US OB BPP w non-stress Accession Number(s): [id number] cc: Marianela Oliva M.D.; Yasmani Abdullahi D.O. [place] [id number] Patient Name: NORIS GOETZ MRN: [id number] date: 1990 Sex: F Assigned Patient Location: US Current Patient Location: Accession/Order Number: [id number] Exam Date: 06/27/2025 07:35 Report Date: 06/27/2025 08:36 At the request of: YASMANI ABDULLAHI DO Procedure: US OB BPP w non-stress BIOPHYSICAL PROFILE: CLINICAL INFORMATION: Multigravida of advanced maternal age COMPARISON: 06/22/2025 There is a single live intrauterine gestation in cephalic presentation. The reported gestational age is 35 weeks 4 days The heart rate [id number] beats per minute. FINDINGS: TONE: 1 or [...] Barnhart M.D. 06/27/2025 8:36 AM Dictation Location[facility] Electronically authenticated by: [id number] Y Date: 06/27/2025 08:36 Dictated By: Annel Barnhart M.D. Signed By: 06/27/25838 DD/ 5 TD/TT: [employer]locking Pave[employer] Installer: [facility] Radiology, Radiologi MD lou - 06/27/2025 [place] [address] Ultrasound Report Signed Patient: NORIS GOETZ MR#: [id number] : 1990 Acct:[id number] Age/Sex: 35 / F ADM Date: 06/27/25 Loc: US Attending Dr: Yasmani Abdullahi D.O. Ordering Physician: Yasmani Abdullahi D.O. Date of Service: 06/27/25 Procedure(s): US OB BPP w non-stress Accession Number(s): [id number] cc: Marianela Oliva M.D.; Yasmani Abdullahi D.O. [place] [id number] Patient Name: NORIS GOETZ MRN: [facility]:[id number] date: 1990 Sex: F Assigned Patient Location: US Current Patient Location: Accession/Order Number: [id number] Exam Date: 06/27/2025 07:35 Report Date: 06/27/2025 08:36 At the request of: YASMANI ABDULLAHI DO Procedure: US OB BPP w non-stress BIOPHYSICAL PROFILE: CLINICAL INFORMATION: Multigravida of advanced maternal age COMPARISON: 06/22/2025 There is a single live intrauterine gestation in cephalic presentation. The reported gestational age is 35 weeks 4 days The heart rate [id number] beats per minute. FINDINGS: TONE: 1 or [...] Barnhart M.D. 06/27/2025 8:36 AM Dictation Location: [employer] Electronically authenticated by: [id number] Y Date: 06/27/2025 08:36 Dictated By: Annel Barnhart M.D. Signed By: 06/27/25 0839 DD/ 5 TD/TT: [employer]locking Pave[employer] Installer: [facility] Radiology Study observation (narrative) [facility] US OB BPP W NON-STRESS Ordered By: Radiologist Radiology on 06-27-2025 [facility] Work Phone: US OB BPP W NON-STRESS on 06-22-[address] [address] Ultrasound Report Signed Patient: NORIS GOETZ MR#: [id number] : 1990 Acct:[id number] Age/Sex: 35 / F ADM Date: 06/22/25 Loc: US Attending Dr: Yasmani Abdullahi D.O. Ordering Physician: Yasmani Abdullahi D.O. Date of Service: 06/22/25 Procedure(s): US OB BPP w non-stress Accession Number(s): [id number] cc: Marianela Oliva M.D.; Yasmani Abdullahi D.O. The [address] [place] [address] Patient Name: NORIS GOETZ MRN: [facility]:[id number] date: 1990 Sex: F Assigned Patient Location: [facility] Current Patient Location: Accession/Order Number: [id number] Exam Date: 06/22/2025 17:18 Report Date: 06/22/2025 [...] Flores M.D. 06/22/2025 9:47 PM Dictation Location: [place] [address] Electronically authenticated by: [id number] Y Date: 06/22/2025 21:47 Dictated By: Alfonzo Flores D.O. Signed By: 06/22/252149 DD/ 46 TD/TT: [employer]locking [employer]ave[employer] Installer: [facility] Radiology, Radiologjoni blake MD - 06/22/2025 [place] [address] Ultrasound Report Signed Patient: NORIS GOETZ MR#: [id number] : 1990 Acct:[id number] Age/Sex: 35 / F ADM Date: 06/22/25 Loc: US Attending Dr: Yasmani Abdullahi D.O. Ordering Physician: Yasmani Abdullahi D.O. Date of Service: 06/22/25 Procedure(s): US OB BPP w non-stress Accession Number(s): [id number] cc: Marianela Oliva M.D.; Yasmani Abdullahi D.O. The [place] [id number] Patient Name: NORIS GOETZ MRN: [facility]:[id number] date: 1990 Sex: F Assigned Patient Location: [facility] Current Patient Location: Accession/Order Number: [id number] Exam Date: 06/22/2025 17:18 Report Date: 06/22/2025 [...] Flores M.D. 06/22/2025 9:47 PM Dictation Location: [place] [address] Electronically authenticated by: [id number] Y Date: 06/22/2025 21:47 Dictated By: Alfonzo Flores D.O. Signed By: 06/22/252149 DD/ 46 TD/TT: [employer]ave[employer] Installer: [facility] Radiology Study observation (narrative) [facility] US OB BPP W NON-STRESS Ordered By: Radiologist Radiology on 06-22-2025 [facility] [employer] Work Phone: US OB FOLLOW UP TRANSABDOMIN [...] UA Negative Negative - 4(70) +++ mg/dL [facility] Blood, UA Negative Negative - 50 Tavon/mcL [facility] Clarity, UA Clear [facility] Color, UA Yellow [facility] Glucose, UA Negative Negative - 1999(110) ++++ mg/dL [facility] Interpretation and review of laboratory results Abnormal [facility] Ketones, UA Positive Negative - 160(16) ++++ mg/dL [facility] Leukocytes, UA 1+ Negative - 500+++ Bertha/mcL [facility] Nitrite, UA Negative Negative - Positive [facility] pH, UA 7 5 - 9 [facility] Protein, UA Negative Negative - 2000(20) ++++ mg/dL [facility] Spec Grav, UA 1.015 1 - 1.03 [facility] Urobilinogen, UA 1.0 0.2 - 12 mg/dL [facility] US OB BPP W NON-STRESS on 06-19-2025 [place] [address] Ultrasound Report Signed Patient: NORIS GOETZ MR#: [id number] : 1990 Acct:[id number] Age/Sex: 35 / F ADM Date: 06/19/25 Loc: [facility] 250-[address]: Yasmani Abdullahi D.O. Ordering Physician: Yasmani Abdullahi D.O. Date of Service: 06/19/25 Procedure(s): US OB BPP w non-stress Accession Number(s): [id number] cc: Marianlea Oliva M.D.; Yasmani Abdullahi D.O. The [address] [address] Patient Name: NORIS GOETZ MRN: [facility]:[id number] date: 1990 Sex: F Assigned Patient Location: US Current Patient Location: US Accession/Order Number: [id number] Exam Date: 06/19/2025 11:08 Report Date: 06/19/2025 [...] Barnhart M.D. 06/19/2025 12:15 PM Dictation Location: [place] [address] Electronically authenticated by: [id number] Y Date: 06/19/2025 12:15 Dictated By: Annel Barnhart M.D. Signed By: 06/19/251216 DD/ 14 TD/TT: [employer]locking Pave[employer] Installer: [facility] Radiology, Radiologi MD lou - 06/19/2025 [place] [address] Ultrasound Report Signed Patient: NORIS GOETZ MR#: [id number] : 1990 Acct:[id number] Age/Sex: 35 / F ADM Date: 06/19/25 Loc: [facility] 250-[address]: Yasmani Abdullahi D.O. Ordering Physician: Yasmani Abdullahi D.O. Date of Service: 06/19/25 Procedure(s): US OB BPP w non-stress Accession Number(s): [id number] cc: Marianela Oliva M.D.; Yasmani Abdullahi D.O. [place] [address] Patient Name: NORIS GOETZ MRN: [id number] date: 1990 Sex: F Assigned Patient Location: Current Patient Location: US Accession/Order Number: [id number] Exam Date: 06/19/2025 11:08 Report Date: 06/19/2025 [...] Barnhart M.D. 06/19/2025 12:15 PM Dictation Location: [facility] Electronically authenticated by: [id number] Y Date: 06/19/2025 12:15 Dictated By: Annel Barnhart M.D. Signed By: 06/19/25 1217 DD/ 1215 TD/TT: [employer]locking Pave[employer] Installer: [facility] Radiology Study observation (narrative) [facility] OB BPP W NON-STRESS Ordered By: Radiologist Radiology on 06-19-2025 [facility] Work Phone: Urinalysis macro (dipstick) panel (U)on 06-07-2025 Bilirubin, UA Negative Negative - 4(70) +++ mg/dL [facility] Blood, UA Negative Negative - 50 Tavon/mcL [facility] Clarity, UA Clear [facility] Color, UA Yellow [facility] Glucose, UA Negative Negative - 2000(110) ++++ mg/dL [facility] Interpretation and review of laboratory results Normal [facility] Ketones, UA Negative Negative - 160(16) ++++ mg/dL [facility] Leukocytes, UA Negative Negative - 500+++ Bertha/mcL [facility] Nitrite, UA Negative Negative - Positive [facility] pH, UA 7.5 5 - 9 [facility] Protein, UA Negative Negative - 2000(20) ++++ mg/dL [facility] Spec Grav, UA 1.005 1 - 1.03 [facility] Urobilinogen, UA 1.0 0.2 - 12 mg/dL [facility] US OB FOLLOW UP TRANSABDOMIN AL APPROACHon [...] UA Negative Negative - 4(70) +++ mg/dL [facility] Blood, UA Negative Negative - 50 Tavon/mcL [facility] Healthcare Clarity, UA Clear [facility] Color, UA Yellow [facility] Glucose, UA Negative Negative - 1999(110) ++++ mg/dL [facility] Interpretation and review of laboratory results Normal [facility] Ketones, UA Negative Negative - 160(16) ++++ mg/dL [facility] Leukocytes, UA Negative Negative - 500+++ Bertha/mcL [facility] Nitrite, UA Negative Negative - Positive [facility] pH, UA 6.5 5 - 9 [facility] Protein, UA Negative Negative - 1999(20) ++++ mg/dL [facility] Spec Grav, UA 1.01 1 - 1.03 [facility] Urobilinogen, UA 1.0 0.2 - 12 mg/dL [facility] Urinalysis macro (dipstick) panel (U)on 05-10-2025 Bilirubin, UA Negative Negative - 4(70) +++ mg/dL [facility] Blood, UA Negative Negative - 50 Tavon/mcL [facility] Clarity, UA Clear [facility] Color, UA Yellow [facility] Glucose, UA Negative Negative - 1999(110) ++++ mg/dL [facility] Interpretation and review of laboratory results Abnormal [facility] Ketones, UA Positive Negative - 160(16) ++++ mg/dL [facility] Comment on above: Large Leukocytes, UA Negative Negative - 500+++ Bertha/mcL [facility] Nitrite, UA Negative Negative - Positive [facility] pH, UA 6.5 5 - 9 [facility] Protein, UA Trace Negative - 1999(20) ++++ mg/dL [facility] Spec Grav, UA 1.015 1 - 1.03 [facility] Urobilinogen, UA 0.2 0.2 - 12 mg/dL [facility] Urinalysis macro (dipstick) panel (U)on 04-10-2025 Bilirubin, UA Negative Negative - 4(70) +++ mg/dL [facility] Blood, UA Negative Negative - 50 Tavon/mcL [facility] Clarity, UA Clear [facility] Color, UA Yellow [facility] Glucose, UA Negative Negative - 1999(110) ++++ mg/dL [facility] Interpretation and review of laboratory results Normal [facility] Ketones, UA Negative Negative - 160(16) ++++ mg/dL [facility] Leukocytes, UA Negative Negative - 500+++ Bertha/mcL [facility] Nitrite, UA Negative Negative - Positive [facility] pH, UA 6.5 5 - 9 [facility] Protein, UA Negative Negative - 1999(20) ++++ mg/dL [facility] Spec Grav, UA 1.025 1 - 1.03 [facility] Urobilinogen, UA 1.0 0.2 - 12 mg/dL [facility] Albumin [Mass/volume] in Ser um or Plasma by Bromocresol green (BCG) dye binding methoOrdered By: Mario Perez on 04-02-2025 Albumin BCG dye [Mass/Vol] 3.4 g/dL Low 3.5-5.7 [facility] Cholesterol in LDL Calc [Mas s/Vol]Ordered By: Mario Perez on 04-02-2025 Cholesterol in LDL [Mass/Vol] 120 mg/dL High 0-100 [facility] Comment on above: LDL ATP III CLASSIFI CATIONLDL less than 100 mg/dL OptimalLDL 100-129 mg/dL Near or above optimalLDL 130-159 mg/dL Borderline highLDL 160-189 mg/dL HighLDL greater than 189 mg/dL Very high Cholesterol in VLDL Calc [Ma ss/Vol]Ordered By: Mario Perez on 04-02-2025 Cholesterol in VLDL [Mass/Vol] 26 mg/dL [facility] Employee Comp Metabolic Pane marcel 04-02-2025 Albumin [Mass/Vol] 3.4 g/dL Low 3.5-5.7 [facility] Comment on above: Performed By: #### P ILLAR TSH, PILLAR CBC, PILLAR BMP, PILLAR LIPID #### [address] GFR/1.73 sq M.predicted MDRD (S/P/Bld) [Vol rate/Area] mL/min/{1.73_m2} Normal [facility] Comment on above: Performed By: #### P ILLAR TSH, PILLAR CBC, PILLAR BMP, PILLAR LIPID #### [facility] [address] [place] [address] Employee Comp Metabolic Pane lOrdered By: Mario Perez on 04-02-2025 Albumin/Globulin [Mass ratio] 1.5 {ratio} [facility] Comment on above: Performed By: #### P ILLAR TSH, PILLAR CBC, PILLAR BMP, PILLAR LIPID #### [facility] [address] [place] [address] ALP [Catalytic activity/Vol] 39 U/L 34-104 [facility] Comment on above: Performed By: #### P ILLAR TSH, PILLAR CBC, PILLAR BMP, PILLAR LIPID #### [address] ALT [Catalytic activity/Vol] 10 U/L 7-52 [facility] Comment on above: Performed By: #### P ILLAR TSH, PILLAR CBC, PILLAR BMP, PILLAR LIPID #### [facility] [address] [place] [address] Anion gap [Moles/Vol] 8.5 mmol/L 6.0-15.0 [facility] Comment on above: Performed By: #### P ILLAR TSH, PILLAR CBC, PILLAR BMP, PILLAR LIPID #### [address] AST [Catalytic activity/Vol] 12 U/L Low 13-39 [facility] Comment on above: Performed By: #### P ILLAR TSH, PILLAR CBC, PILLAR BMP, PILLAR LIPID #### [address] [place] [address] [place] Bilirubin [Mass/Vol] 0.3 mg/dL 0.3-1.0 [facility] Comment on above: Performed By: #### P ILLAR TSH, PILLAR CBC, PILLAR BMP, PILLAR LIPID #### [address] Calcium [Mass/Vol] 8.2 mg/dL Low 8.6-10.3 [facility] Comment on above: Performed By: #### P ILLAR TSH, PILLAR CBC, PILLAR BMP, PILLAR LIPID #### [facility] [address] [place] [address] Chloride [Moles/Vol] 106 mmol/L 98-107 [facility] Comment on above: Performed By: #### P ILLAR TSH, PILLAR CBC, PILLAR BMP, PILLAR LIPID #### [facility] [address] [place] [address] CO2 [Moles/Vol] 25.4 mmol/L 21.0-31.0 [facility] Comment on above: Performed By: #### P ILLAR TSH, PILLAR CBC, PILLAR BMP, PILLAR LIPID #### [facility] [address] [place] [address] Creatinine [Mass/Vol] 0.49 mg/dL Low 0.60-1.20 [facility] Comment on above: Performed By: #### P ILLAR TSH, PILLAR CBC, PILLAR BMP, PILLAR LIPID #### [facility] [address] [place] [address] Globulin (S) [Mass/Vol] 2.3 g/dL [facility] Comment on above: Performed By: #### P ILLAR TSH, PILLAR CBC, PILLAR BMP, PILLAR LIPID #### [facility] [address] [place] [address] Glucose [Mass/Vol] 92 mg/dL 70-100 [facility] Comment on above: Performed By: #### P ILLAR TSH, PILLAR CBC, PILLAR BMP, PILLAR LIPID #### [address] [place] [address] [place] Potassium [Moles/Vol] 3.9 mmol/L 3.5-5.1 [facility] Comment on above: Performed By: #### P ILLAR TSH, PILLAR CBC, PILLAR BMP, PILLAR LIPID #### [address] Protein [Mass/Vol] 5.7 g/dL Low 6.4-8.9 [facility] Comment on above: Performed By: #### P ILLAR TSH, PILLAR CBC, PILLAR BMP, PILLAR LIPID #### [address] Sodium [Moles/Vol] 136 mmol/L 136-145 [facility] Comment on above: Performed By: #### P ILLAR TSH, PILLAR CBC, PILLAR BMP, PILLAR LIPID #### [address] Urea nitrogen [Mass/Vol] 12 mg/dL 7- [facility] Comment on above: Performed By: #### P ILLAR TSH, PILLAR CBC, PILLAR BMP, PILLAR LIPID #### [facility] [address] [place] [address] Employee Complete Blood Coun tOrdered By: Mario Perez on 04-02-2025 Basophils (Bld) [#/Vol] 0.0 10*3/uL 0.0-0.2 [facility] Comment on above: Result Comment: PERF ORMED BY: [place] [address] JESS VARGAS M.D. Performed By: #### P ILLAR LIPID, PILLAR CBC, PILLAR CMP ####[address] Basophils/100 WBC (Bld) 0.5 % . [facility] Comment on above: Performed By: #### P ILLAR LIPID, PILLAR CBC, PILLAR CMP ####[facility] [place] [address] Eosinophils (Bld) [#/Vol] 0.2 10*3/uL 0.0-0.45 [facility] Comment on above: Performed By: #### P ILLAR LIPID, PILLAR CBC, PILLAR CMP ####[place] [id number] [facility] Eosinophils/100 WBC (Bld) 2.5 % . [facility] Comment on above: Performed By: #### P ILLAR LIPID, PILLAR CBC, PILLAR CMP ####[place] [id number] [facility] Erythrocyte distribution width (RBC) [Ratio] 13.4 % 11.9-15.3 [facility] Comment on above: Performed By: #### P ILLAR LIPID, PILLAR CBC, PILLAR CMP ####[address] Hematocrit (Bld) [Volume fraction] 34.4 % 34.0-46.4 [facility] Comment on above: Performed By: #### P ILLAR LIPID, PILLAR CBC, PILLAR CMP ####[place] [id number] [facility] Hemoglobin (Bld) [Mass/Vol] 11.8 g/dL 11.8-15.4 [facility] Comment on above: Performed By: #### P ILLAR LIPID, PILLAR CBC, PILLAR CMP ####[address] Lymphocytes (Bld) [#/Vol] 1.6 10*3/uL 1.00-4.8 [facility] Comment on above: Performed By: #### P ILLAR LIPID, PILLAR CBC, PILLAR CMP ####[place] [phone] [facility] Lymphocytes/100 WBC (Bld) 21.6 % . [facility] Comment on above: Performed By: #### P ILLAR LIPID, PILLAR CBC, PILLAR CMP ####[place] [phone] [facility] MCH (RBC) [Entitic mass] 29.3 pg 24.7-34.3 [facility] Comment on above: Performed By: #### P ILLAR LIPID, PILLAR CBC, PILLAR CMP ####[place] [id number] [facility] MCV (RBC) [Entitic vol] 85.4 fL 80-100 [facility] Comment on above: Performed By: #### P ILLAR LIPID, PILLAR CBC, PILLAR CMP ####[place] [id number] [facility] Monocytes (Bld) [#/Vol] 0.6 10*3/uL 0.0-0.8 [facility] Comment on above: Performed By: #### P ILLAR LIPID, PILLAR CBC, PILLAR CMP ####[place] [phone] [facility] Monocytes/100 WBC (Bld) 7.9 % . [facility] Comment on above: Performed By: #### P ILLAR LIPID, PILLAR CBC, PILLAR CMP ####[place] [phone] [facility] Neutrophils (Bld) [#/Vol] 5.0 10*3/uL 1.8-7.7 [facility] Comment on above: Performed By: #### P ILLAR LIPID, PILLAR CBC, PILLAR CMP ####[place] [phone] [facility] Neutrophils/100 WBC (Bld) 67.5 % . [facility] Comment on above: Performed By: #### P ILLAR LIPID, PILLAR CBC, PILLAR CMP ####[place] [phone] [facility] Platelet mean volume (Bld) [Entitic vol] 9.5 fL 6.3-10.7 [facility] Comment on above: Performed By: #### P ILLAR LIPID, PILLAR CBC, PILLAR CMP ####[address] [address] [facility] Platelets (Bld) [#/Vol] 198 10*3/uL 150-450 [facility] Comment on above: Performed By: #### P ILLAR LIPID, PILLAR CBC, PILLAR CMP ####[place] [id number] [address] RBC (Bld) [#/Vol] 4.03 10*6/uL 3.60-5.[address] [facility] Comment on above: Performed By: #### P ILLAR LIPID, PILLAR CBC, PILLAR CMP ####[place] [id number] [address] WBC (Bld) [#/Vol] 7.4 10*3/uL 3.8-11.6 [facility] Comment on above: Performed By: #### P ILLAR LIPID, PILLAR CBC, PILLAR CMP ####[place] [phone] [address] Employee Complete Blood Coun ton 04-02-2025 Mean Corpuscular HGB Conc 34.3 g/dL Normal 32.0-35.0 The [facility] Comment on above: Performed By: #### P ILLAR LIPID, PILLAR CBC, PILLAR CMP ####[place] [phone] [address] NRBC% 0.1 /100{WBC} Normal 0-0.5 The [facility] Comment on above: Performed By: #### P ILLAR LIPID, PILLAR CBC, PILLAR CMP ####[address] Employee Lipid ProfileOrdere d By: Mario Perez on 04-02-2025 Cholesterol [Mass/Vol] 222 mg/dL High 140-200 [facility] Comment on above: Result Comment: Chol less than 200 mg/dl low risk Chol 201-239 mg/dl borderline risk Chol 240 mg/dl and greater high risk Performed By: #### P ILLAR TSH, PILLAR CBC, PILLAR BMP, PILLAR LIPID #### [facility] [address] Chol less than 200 m g/dl low riskChol 201-239 mg/dl borderline riskChol 240 mg/dl and greater high risk Cholesterol in HDL [Mass/Vol] 76 mg/dL 23-92 [facility] Comment on above: Result Comment: HDL CHOL ATP-III CLASSIFICATION Cardiovascular Risk HDL > or equal to 60 mg/dL LOW HDL < 40 mg/dL HIGH Performed By: #### P ILLAR TSH, PILLAR CBC, PILLAR BMP, PILLAR LIPID #### [address] HDL CHOL ATP-III CLA SSIFICATION Cardiovascular RiskHDL > or equal to 60 mg/dL LOWHDL < 40 mg/dL HIGH Cholesterol.total/Chol esterol in HDL [Mass ratio] 2.9 {ratio} <5.0 [facility] Comment on above: Result Comment: PERF ORMED BY: [place] [address] MARKER JESS VARGAS M.D. Performed By: #### P ILLAR TSH, PILLAR CBC, PILLAR BMP, PILLAR LIPID #### [address] Employee Lipid Profileon LDL Cholesterol,Calculated 120 mg/dL High 0-100 [facility] Comment on above: Result Comment: LDL ATP III CLASSIFICATION LDL less than 100 mg/dL Optimal LDL 100-129 mg/dL Near or above optimal LDL 130-159 mg/dL Borderline high LDL 160-189 mg/dL High LDL greater than 189 mg/dL Very high Performed By: #### P ILLAR TSH, PILLAR CBC, PILLAR BMP, PILLAR LIPID #### [address] Triglyceride w/Reflex 131 mg/dL Normal 0-149 [facility] Comment on above: Result Comment: TRIG ATP III CLASSIFICATION TRIG less than 150 mg/dL Normal TRIG 150-199 mg/dL Borderline high TRIG 200-500 mg/dL High TRIG greater than 500 mg/dL Very high Standard traceable to the Center for Disease Conrtrol and Prevention (CDC) test method. Performed By: #### P ILLAR TSH, PILLAR CBC, PILLAR BMP, PILLAR LIPID #### [address] VLDL CHOLESTEROL 26 mg/dL Normal [facility] Comment on above: Performed By: #### P ILLAR TSH, PILLAR CBC, PILLAR BMP, PILLAR LIPID #### [facility] [address] Leukocytes [#/volume] correc randolph for nucleated erythrocytes in Blood by Automated counOrdered By: Mario Perez on 04-02-2025 WBC corrected for nucl RBC Auto (Bld) [#/Vol] 7.4 10*3/uL 3.8-11.6 [facility] MCHC Auto (RBC) [Mass/Vol]Or dered By: Mario Perez on 04-02-2025 MCHC (RBC) [Mass/Vol] 34.3 g/dL 32.0-35.0 [facility] No Panel InformationOrdered By: Mario Perez on 04-02-2025 Estimated GFR (CKD-EPI) > 60.0 mL/Min [facility] Creatinine Clearance (Chem N/A [facility] Nucleated erythrocytes [Pres ence] in Blood by Automated countOrdered By: Mario Perez on 04-02-2025 Nucleated RBC Auto Ql (Bld) 0.1 /100{WBC} 0-0.5 [facility] Triglyceride [Mass/volume] i n Serum or PlasmaOrdered By: Mario Perez on 04-02-2025 Triglyceride [Mass/Vol] 131 mg/dL 0-149 [facility] Comment on above: TRIG ATP III CLASSIF [...] II, MD, PHD at 16-Mar-2025 11:50:11 AM [facility] Normal Not Available Comment on above: Order Comment: US OB ANATOMY SINGLE W US OB CERVICAL LENGTH Estimated Date of Delivery: 07/28/25 Gestational Age as of 02/15/2025: 16w5d Urinalysis macro (dipstick) panel (U)on 03-15-2025 Bilirubin, UA Negative Negative - 4(70) +++ mg/dL [facility] Blood, UA Negative Negative - 50 Tavon/mcL [facility] Clarity, UA Clear [facility] Color, UA Yellow [facility] Glucose, UA Negative Negative - 2000(110) ++++ mg/dL [facility] Interpretation and review of laboratory results Normal [facility] Ketones, UA Negative Negative - 160(16) ++++ mg/dL [facility] Leukocytes, UA Negative Negative - 500+++ Bertha/mcL [facility] Nitrite, UA Negative Negative - Positive [facility] pH, UA 7 5 - 9 [facility] Protein, UA Negative Negative - 2000(20) ++++ mg/dL [facility] Spec Grav, UA 1.015 1 - 1.03 [facility] Urobilinogen, UA 0.2 0.2 - 12 mg/dL [facility] Basophils Auto (Bld) [#/Vol] Ordered By: Yasmani Abdullahi on 03-14-2025 Basophils (Bld) [#/Vol] Automated basophil count 0.0-0.2 [facility] Basophils/100 WBC Auto (Bld) Ordered By: Yasmani Abdullahi on 03-14-2025 Basophils/100 WBC (Bld) Automated basophil % . [facility] CBC W Auto Differential pane l (Bld)on 03-14-2025 Basophils (Bld) [#/Vol] 0 10*3/uL 0.0 - 0.2 10*3/uL [facility] Basophils/100 WBC Manual cnt (Syn fld) 0.3 % . [facility] Eosinophils (Bld) [#/Vol] 0.1 10*3/uL 0.0 - 0.45 10*3/uL [facility] Eosinophils/100 WBC Manual cnt (Syn fld) 1 % . [facility] Erythrocyte distribution width (RBC) [Ratio] 13.5 % 11.9 - 15.3 % [facility] Hematocrit (Bld) [Volume fraction] 35.8 % 34.0 - 46.4 % [facility] Hemoglobin (Bld) [Mass/Vol] 12.6 g/dL 11.8 - 15.4 g/dL [facility] Interpretation and review of laboratory results Abnormal [facility] Lymphocytes (Bld) [#/Vol] 1.8 10*3/uL 1.00 - 4.8 10*3/uL [facility] Lymphocytes/100 WBC Manual cnt (Syn fld) 19.9 % . [facility] MCH (RBC) [Entitic mass] 29.2 pg 24.7 - 34.3 pg [facility] MCHC (RBC) [Mass/Vol] 35.1 g/dL High 32.0 - 35.0 g/dL [facility] MCV (RBC) [Entitic vol] 83.3 fL 80 - 100 fL [facility] Monocytes (Bld) [#/Vol] 0.7 10*3/uL 0.0 - 0.8 10*3/uL [facility] Monocytes+Macrophages/ 100 WBC Manual cnt (Syn fld) 8.2 % . [facility] Neutrophils (Bld) [#/Vol] 6.4 10*3/uL 1.8 - 7.7 10*3/uL [facility] Neutrophils/100 WBC Manual cnt (Syn fld) 70.6 % . [facility] NRBC 0.1 /100{WBC} 0 - 0.5 /100{WBC} [facility] Platelet mean volume (Bld) [Entitic vol] 9 fL 6.3 - 10.7 fL [facility] Platelets (Bld) [#/Vol] 235 10*3/uL 150 - 450 10*3/uL [facility] RBC LM.HPF (Urine sed) [#/Area] 4.3 10*6/uL 3.60 - 5.00 10*6/uL [facility] WBC (Bld) [#/Vol] 9.1 10*3/uL 3.8 - 11.6 10*3/uL [facility] WBC LM.HPF (Urine sed) [#/Area] 9.1 10*3/uL 3.8 - 11.6 10*3/uL [facility] Complete Blood Count Auto Di ffOrdered By: Yasmani Abdullahi on 03-14-2025 Basophils (Bld) [#/Vol] 0.0 10*3/uL 0.0-0.2 [facility] Comment on above: Result Comment: PERF ORMED BY: [facility] [address] [place] [id number] MARKER JESS VARGAS M.D. Performed By: #### C BC ####[place] [id number] Basophils/100 WBC (Bld) 0.3 % . [facility] Comment on above: Performed By: #### C BC ####[place] [address] Eosinophils (Bld) [#/Vol] 0.1 10*3/uL 0.0-0.45 [facility] Comment on above: Performed By: #### C BC ####[address] Eosinophils/100 WBC (Bld) 1.0 % . [facility] Comment on above: Performed By: #### C BC ####[address] Erythrocyte distribution width (RBC) [Ratio] 13.5 % 11.9-15.3 [facility] Comment on above: Performed By: #### C BC ####[address] Hematocrit (Bld) [Volume fraction] 35.8 % 34.0-46.4 [facility] Comment on above: Performed By: #### C BC ####[address] Hemoglobin (Bld) [Mass/Vol] 12.6 g/dL 11.8-15.4 [facility] Comment on above: Performed By: #### C BC ####[address] Lymphocytes (Bld) [#/Vol] 1.8 10*3/uL 1.00-4.8 [facility] Comment on above: Performed By: #### C BC ####[address] Lymphocytes/100 WBC (Bld) 19.9 % . [facility] Comment on above: Performed By: #### C BC ####[address] MCH (RBC) [Entitic mass] 29.2 pg 24.7-34.3 [facility] Comment on above: Performed By: #### C BC ####[address] MCV (RBC) [Entitic vol] 83.3 fL 80-100 [facility] Comment on above: Performed By: #### C BC ####[place] [address] [place] [address] [place] Monocytes (Bld) [#/Vol] 0.7 10*3/uL 0.0-0.8 [facility] Comment on above: Performed By: #### C BC ####[address] [address] [facility] Monocytes/100 WBC (Bld) 8.2 % . [facility] Comment on above: Performed By: #### C BC ####[address] [address] [place] Neutrophils (Bld) [#/Vol] 6.4 10*3/uL 1.8-7.7 [facility] Comment on above: Performed By: #### C BC ####[address] [address] [facility] Neutrophils/100 WBC (Bld) 70.6 % . [facility] Comment on above: Performed By: #### C BC ####[address] [address] [facility] Platelet mean volume (Bld) [Entitic vol] 9.0 fL 6.3-10.7 [facility] Comment on above: Performed By: #### C BC ####[address] [address] [facility] Platelets (Bld) [#/Vol] 235 10*3/uL 150-450 [facility] Comment on above: Performed By: #### C BC ####[address] [address] [facility] RBC (Bld) [#/Vol] 4.30 10*6/uL 3.60-5.[address] [facility] Comment on above: Performed By: #### C BC ####[address] [address] [facility] WBC (Bld) [#/Vol] 9.1 10*3/uL 3.8-11.6 [facility] Comment on above: Performed By: #### C BC ####[facility] [id number] Complete Blood Count Auto Di ffon 03-14-2025 Mean Corpuscular HGB Conc 35.1 g/dL High 32.0-35.0 [facility] Comment on above: Performed By: #### C BC ####[facility] [id number] NRBC% 0.1 /100{WBC} Normal 0-0.5 [facility] Comment on above: Performed By: #### C BC ####[facility] Eosinophils Auto (Bld) [#/Vo l]Ordered By: Yasmani Abdullahi on 03-14-2025 Eosinophils (Bld) [#/Vol] Automated eosinophil count 0.0-0.45 [facility] Eosinophils/100 WBC Auto (Bl d)Ordered By: Yasmani Abdullahi on 03-14-2025 Eosinophils/100 WBC (Bld) Automated eosinophil % . [facility] Erythrocyte distribution wid th Auto (RBC) [Ratio]Ordered By: Yasmani Abdullahi on 03-14-2025 Erythrocyte distribution width (RBC) [Ratio] Erythrocyte distribution width [Ratio] by Automated count 11.9-15.3 [facility] Hematocrit Auto (Bld) [Volum e fraction]Ordered By: Yasmani Abdullahi on 03-14-2025 Hematocrit (Bld) [Volume fraction] Hematocrit [Volume Fraction] of Blood by Automated count 34.0-46.4 [facility] Hemoglobin [Mass/volume] in BloodOrdered By: Yasmani Abdullahi on 03-14-2025 Hemoglobin (Bld) [Mass/Vol] Hemoglobin [Mass/volume] in Blood 11.8-15.4 [facility] Leukocytes [#/volume] correc randolph for nucleated erythrocytes in Blood by Automated counOrdered By: Yasmani Abdullahi on 03-14-2025 WBC corrected for nucl RBC Auto (Bld) [#/Vol] Leukocytes [#/volume] corrected for nucleated erythrocytes in Blood by Automated coun 3.8-11.6 [facility] WBC corrected for nucl RBC Auto (Bld) [#/Vol] 9.1 10*3/uL 3.8-11.6 [facility] Lymphocytes Auto (Bld) [#/Vo l]Ordered By: Yasmani Abdullahi on 03-14-2025 Lymphocytes (Bld) [#/Vol] Lymphocytes [#/volume] in Blood by Automated count 1.00-4.8 [facility] Lymphocytes/100 WBC Auto (Bl d)Ordered By: Yasmani Abdullahi on 03-14-2025 Lymphocytes/100 WBC (Bld) Lymphocytes/100 leukocytes in Blood by Automated count . [facility] MCH Auto (RBC) [Entitic mass ]Ordered By: Yasmani Abdullahi on 03-14-2025 MCH (RBC) [Entitic mass] MCH [Entitic mass] by Automated count 24.7-34.3 [facility] MCHC Auto (RBC) [Mass/Vol]Or dered By: Yasmani Abdullahi on 03-14-2025 MCHC (RBC) [Mass/Vol] MCHC [Mass/volume] by Automated count High 32.0-35.0 [facility] MCHC (RBC) [Mass/Vol] 35.1 g/dL High 32.0-35.0 [facility] MCV Auto (RBC) [Entitic vol] Ordered By: Yasmani Abdullahi on 03-14-2025 MCV (RBC) [Entitic vol] MCV [Entitic volume] by Automated count 80-100 [facility] Monocytes Auto (Bld) [#/Vol] Ordered By: Yasmani Abdullahi on 03-14-2025 Monocytes (Bld) [#/Vol] Automated blood monocyte count 0.0-0.8 [facility] Monocytes/100 WBC Auto (Bld) Ordered By: Yasmani Abdullahi on 03-14-2025 Monocytes/100 WBC (Bld) Automated monocyte % . [facility] Neutrophils Auto (Bld) [#/Vo l]Ordered By: Yasmani Abdullahi on 03-14-2025 Neutrophils (Bld) [#/Vol] Neutrophils [#/volume] in Blood by Automated count 1.8-7.7 [facility] Neutrophils/100 WBC Auto (Bl d)Ordered By: Yasmani Abdullahi on 03-14-2025 Neutrophils/100 WBC (Bld) Automated neutrophil % . [facility] Nucleated erythrocytes [Pres ence] in Blood by Automated countOrdered By: Yasmani Abdullahi on 03-14-2025 Nucleated RBC Auto Ql (Bld) Nucleated erythrocytes [Presence] in Blood by Automated count 0-0.5 [facility] Nucleated RBC Auto Ql (Bld) 0.1 /100{WBC} 0-0.5 [facility] Platelet mean volume Auto (B ld) [Entitic vol]Ordered By: Yasmani Abdullahi on 03-14-2025 Platelet mean volume (Bld) [Entitic vol] Platelet mean volume [Entitic volume] in Blood by Automated count 6.3-10.7 [facility] Platelets Auto (Bld) [#/Vol] Ordered By: Yasmani Abdullahi on 03-14-2025 Platelets (Bld) [#/Vol] Platelets [#/volume] in Blood by Automated count 150-450 [facility] RBC Auto (Bld) [#/Vol]Ordere d By: Yasmani Abdullahi on 03-14-2025 RBC (Bld) [#/Vol] Erythrocytes [#/volu me] in Blood by Automated count 3.60-5.00 [facility] WBC Auto (Bld) [#/Vol]Ordere d By: Yasmani Abdullahi on 03-14-2025 WBC (Bld) [#/Vol] Leukocytes [#/volume ] in Blood by Automated count 3.8-11.6 [facility] IGP,APTIMA HPV,AGE GDLNon AGE GDLN ACOG TESTING Note . [facility] Comment on above: TESTS RESULT FLAG UN ITS REF RANGE LAB Clinician Provided Cytology Information Source.............[employer] Other.............. No. of containers..01 ThinPrep Vial Age John PEREZ Gemma... 3065 01 FLAG LEGEND: L-Low Normal,H-High Normal,LL-Alert Low,HH-Alert High <-Panic Low,>-Panic High,A-Abnormal,AA-Critical Abnormal Performed at: 01 =[address] [address] Azalea Quezada MD, HPV APTIMA Negative Negative [facility] Comment on above: This nucleic acid am plification test detects fourteen high- risk HPV types (16,18,31,33,35,39,45,51,52,56,58,59,66,68) without differentiation. Performed at: =[address] [id number] Tooth Clerk: Azalea Quezada MD, Phone: [phone] Performed at: [address] [id number] Tooth Clerk: Azalea Quezada MD, Phone: [phone] IGP, APTIMA HPV, RFX 16/18,45 Note . [facility] Comment on above: TESTS RESULT FLAG UN ITS REF RANGE LAB DIAGNOSIS: 02 NEGATIVE FOR INTRAEPITHELIAL LESION OR MALIGNANCY. Specimen adequacy: 02 Satisfactory for evaluation. No endocervical component is identified. An endocervical component is not commonly seen in the patient. Performed by: 02 Oli Martin Owner/Operator ([facility]) . 02 Note: Note 02 The Pap [...] <-Panic Low,>-Panic High,A-Abnormal,AA-Critical Abnormal Performed at: [address] [address] Azalea Quezada MD, SPATULA-ALONE [employer] [facility] RECURRENT VAGINITIS (HTRX)on 02-16-[address] [facility] ATOPOBIUM VAGINAE Not detected [facility] BVAB 2,3 (BACTERIAL VAGINOSIS ASSOCIATED BACTERIA 2, 3); MOBILUNCUS SPP 0 [facility] BVAB 2,3 (BACTERIAL VAGINOSIS ASSOCIATED BACTERIA 2, 3); MOBILUNCUS SPP Not detected [facility] JOHNNIE ALBICANS, PARAPSILOSIS, TROPICALIS 0 [facility] JOHNNIE ALBICANS, PARAPSILOSIS, TROPICALIS Not [...] 16+18+31+33+35+39+45+51+5 2+56+58+59+66+68 DNA [Presence] in Cer Negative [facility] Comment on above: This nucleic acid am plification test detects fourteen high- risk HPV types (16,18,31,33,35,39,45,51,52,56,58,59,66,68)without differentiation.Performed at: = - [facility] [id number] Director: Azalea Quezada MD, Phone: [phone] at: [facility] [id number] Director: Azalea Quezada MD, Phone: [phone] No Panel Informationon 02-15 HPV High Risk Other Comment Note . [facility] Comment on above: TESTS RESULT FLAG UN ITS REF RANGE LAB DIAGNOSIS: 02 NEGATIVE FOR INTRAEPITHELIAL LESION OR MALIGNANCY.Specimen adequacy: 02 Satisfactory for evaluation. No endocervical component is identified. An endocervical component is not commonly seen in the patient.Performed by: Darrell Martin Owner/Operator ([employer]). 02Note: Note 02 The Pap smear [...] <-Panic Low,>-Panic High,A-Abnormal,AA-Critical Abnormal -----Performed at:[address] [address] Azalea Quezada MD, Reference Lab Test Patient Age Note . [facility] Comment on above: TESTS RESULT FLAG UN ITS REF RANGE LAB Clinician Provided Cytology Information Source.............[employer] Other.............. No. of containers..01 ThinPrep VialAge John PEREZ Gemma... FLAG LEGEND: L-Low Normal,H-High Normal,LL-Alert Low,HH-Alert High <-Panic Low,>-Panic High,A-Abnormal,AA-Critical Abnormal -----Performed at:01 =[facility] [address] [place] [address] Azalea Quezada MD, Urinalysis macro (dipstick) panel (U)on 02-15-2025 Bilirubin, UA Negative Negative - 4(70) +++ mg/dL [facility] Blood, UA Negative Negative - 50 Tavon/mcL [facility] Clarity, UA Clear [facility] Color, UA Yellow [facility] Glucose, UA Positive Negative - 1999(110) ++++ mg/dL [facility] Comment on above: 100 Interpretation and review of laboratory results Abnormal [facility] Ketones, UA Negative Negative - 160(16) ++++ mg/dL [facility] Leukocytes, UA Negative Negative - 500+++ Bertha/mcL [facility] Nitrite, UA Negative Negative - Positive [facility] pH, UA 5.5 5 - 9 [facility] Protein, UA Negative Negative - 1999(20) ++++ mg/dL [facility] Spec Grav, UA 1.005 1 - 1.03 [facility] Urobilinogen, UA 0.2 0.2 - 12 mg/dL [facility] Urinalysis macro (dipstick) panel (U)on 01-18-2025 Bilirubin, UA Negative Negative - 4(70) +++ mg/dL [facility] Blood, UA Negative Negative - 50 Tavon/mcL [facility] Clarity, UA Clear [facility] Color, UA Yellow [facility] Glucose, UA Negative Negative - 2000(110) ++++ mg/dL [facility] Interpretation and review of laboratory results Abnormal [facility] Ketones, UA Negative Negative - 160(16) ++++ mg/dL [facility] Leukocytes, UA Negative Negative - 500+++ Bertha/mcL [facility] Nitrite, UA Negative Negative - Positive [facility] pH, UA 6 5 - 9 [facility] Protein, UA Negative Negative - 2000(20) ++++ mg/dL [facility] Spec Grav, UA 1.03 1 - 1.03 [facility] Urobilinogen, UA 0.2 0.2 - 12 mg/dL [facility] A1C with Estimated Average G alex 12-27-2024 Glucose [Mass/Vol] 103 mg/dL Normal [facility] Comment on above: Order Comment: NONFA STING.JKW Result Comment: PERF ORMED BY: [facility] [address] [place] [address] MARKER LEÓN GARCIA M.D. Performed By: #### H CV RX PCR, RPR W RFX, RUBELLA IGG, HBSAG, HIV SCREEN ####[facility] ,#### CUU, A1C WT eA, CBC, URDS ####[place] [id number] [address] HbA1c (Bld) [Mass fraction] 5.2 % Normal 4.3-5.6 [facility] Comment on above: Order Comment: NONFA STING.JKW Result Comment: Incr eased risk for diabetes: 5.7 - 6.4 diabetes: >6.4 glycemic control for adults with diabetes: <7.0 Performed By: #### H CV RX PCR, RPR W RFX, RUBELLA IGG, HBSAG, HIV SCREEN ####[facility] ,#### CUU, A1C WTH eA, CBC, URDS ####[place] [id number] [address] Amphetamine Screen Ql (U)Ord ered By: Yasmani Abdullahi on 12-27-2024 Amphetamines Ql (U) Amphetamines screen Negativ e [facility] Barbiturates [Presence] in U rine by Screen methodOrdered By: Yasmani Abdullahi on 12-27-2024 Barbiturates Screen Ql (U) Barbiturates [Presence] in Urine by Screen method Negative [facility] Basophils Auto (Bld) [#/Vol] Ordered By: Yasmani Abdullahi on 12-27-2024 Basophils (Bld) [#/Vol] Automated basophil count 0.0-0.2 [facility] Basophils/100 WBC Auto (Bld) Ordered By: Yasmani Abdullahi on 12-27-2024 Basophils/100 WBC (Bld) Automated basophil % . [facility] Benzodiazepines Screen Ql (U )Ordered By: Yasmani Abdullahi on 12-27-2024 Benzodiazepines Ql (U) Benzodiazepines [Presence] in Urine by Screen method Negative [facility] Benzoylecgonine [Presence] i n Urine by Screen methodOrdered By: Yasmani Abdullahi on 12-27-2024 Benzoylecgonine Screen Ql (U) Benzoylecgonine [Presence] in Urine by Screen method Negative [facility] Blood estimated average gluc ose determination by estimation from glycated hemoglobinOrdered By: Yasmani Abdullahi on 12-27-2024 Average glucose Estimated from glycated hemoglobin (Bld) [Mass/Vol] Glucose mean value [Mass/volume] in Blood Estimated from glycated hemoglobin [facility] Cannabinoids [Presence] in U rine by Screen methodOrdered By: Yasmani Abdullahi on 12-27-2024 Cannabinoids Screen Ql (U) Cannabinoids [Presence] in Urine by Screen method Negative [facility] Comment on above: These are unconfirme d results and should not be used for legal purposes. Drug Cut-Off Concentration: AMPH 1000 ng/mL ABELARDO 200 ng/mL JESSE 200 ng/mL COCM 300 ng/mL OP 300 ng/mL PCP 25 ng/mL THC 20 ng/mL Complete Blood Count Auto Di ffon 12-27-2024 Basophils (Bld) [#/Vol] 0.0 10*3/uL Normal 0.0-0.2 [facility] Comment on above: Order Comment: NONFA STING.JKW Result Comment: PERF ORMED BY: [facility] [address] [place] [address] MARKER LEÓN GARCIA M.D. Performed By: #### H CV RX PCR, RPR W RFX, RUBELLA IGG, HBSAG, HIV SCREEN #### [facility] , #### CUU, A1C WTH eA, CBC, URDS #### [address] Basophils/100 WBC (Bld) 0.6 % Normal . [facility] Comment on above: Order Comment: NONFA STING.JKW Performed By: #### H CV RX PCR, RPR W RFX, RUBELLA IGG, HBSAG, HIV SCREEN #### [facility] , #### CUU, A1C WTH eA, CBC, URDS #### [address] Eosinophils (Bld) [#/Vol] 0.1 10*3/uL Normal 0.0-0.45 [facility] Comment on above: Order Comment: NONFA STING.JKW Performed By: #### H CV RX PCR, RPR W RFX, RUBELLA IGG, HBSAG, HIV SCREEN #### [facility] , #### CUU, A1C WTH eA, CBC, URDS #### [address] Eosinophils/100 WBC (Bld) 1.7 % Normal . [facility] Comment on above: Order Comment: NONFA STING.JKW Performed By: #### H CV RX PCR, RPR W RFX, RUBELLA IGG, HBSAG, HIV SCREEN #### [facility] , #### CUU, A1C WTH eA, CBC, URDS #### [address] Erythrocyte distribution width (RBC) [Ratio] 13.7 % Normal 11.9-15.3 [facility] Comment on above: Order Comment: NONFA STING.JKW Performed By: #### H CV RX PCR, RPR W RFX, RUBELLA IGG, HBSAG, HIV SCREEN #### [facility] , #### CUU, A1C WTH eA, CBC, URDS #### [address] Hematocrit (Bld) [Volume fraction] 38.2 % Normal 34.0-46.4 [facility] Comment on above: Order Comment: NONFA STING.JKW Performed By: #### H CV RX PCR, RPR W RFX, RUBELLA IGG, HBSAG, HIV SCREEN #### [facility] , #### CUU, A1C WTH eA, CBC, URDS #### [address] Hemoglobin (Bld) [Mass/Vol] 13.0 g/dL Normal 11.8-15.4 [facility] Comment on above: Order Comment: NONFA STING.JKW Performed By: #### H CV RX PCR, RPR W RFX, RUBELLA IGG, HBSAG, HIV SCREEN #### [facility] , #### CUU, A1C WTH eA, CBC, URDS #### [address] Lymphocytes (Bld) [#/Vol] 1.2 10*3/uL Normal 1.00-4.8 [facility] Comment on above: Order Comment: NONFA STING.JKW Performed By: #### H CV RX PCR, RPR W RFX, RUBELLA IGG, HBSAG, HIV SCREEN #### [facility] , #### CUU, A1C WTH eA, CBC, URDS #### [address] Lymphocytes/100 WBC (Bld) 19.5 % Normal . [facility] Comment on above: Order Comment: NONFA STING.JKW Performed By: #### H CV RX PCR, RPR W RFX, RUBELLA IGG, HBSAG, HIV SCREEN #### [facility] , #### CUU, A1C WTH eA, CBC, URDS #### [address] MCH (RBC) [Entitic mass] 27.8 pg Normal 24.7-34.3 [facility] Comment on above: Order Comment: NONFA STING.JKW Performed By: #### H CV RX PCR, RPR W RFX, RUBELLA IGG, HBSAG, HIV SCREEN #### [facility] , #### CUU, A1C WTH eA, CBC, URDS #### [address] MCV (RBC) [Entitic vol] 81.5 fL Normal 80-100 [facility] Comment on above: Order Comment: NONFA STING.JKW Performed By: #### H CV RX PCR, RPR W RFX, RUBELLA IGG, HBSAG, HIV SCREEN #### [facility] , #### CUU, A1C WTH eA, CBC, URDS #### [address] Mean Corpuscular HGB Conc 34.1 g/dL Normal 32.0-35.0 [facility] Comment on above: Order Comment: NONFA STING.JKW Performed By: #### H CV RX PCR, RPR W RFX, RUBELLA IGG, HBSAG, HIV SCREEN #### [facility] , #### CUU, A1C WTH eA, CBC, URDS #### [address] Monocytes (Bld) [#/Vol] 0.4 10*3/uL Normal 0.0-0.8 [facility] Comment on above: Order Comment: NONFA STING.JKW Performed By: #### H CV RX PCR, RPR W RFX, RUBELLA IGG, HBSAG, HIV SCREEN #### [facility] , #### CUU, A1C WTH eA, CBC, URDS #### [address] Monocytes/100 WBC (Bld) 6.7 % Normal . [facility] Comment on above: Order Comment: NONFA STING.JKW Performed By: #### H CV RX PCR, RPR W RFX, RUBELLA IGG, HBSAG, HIV SCREEN #### [facility] , #### CUU, A1C WTH eA, CBC, URDS #### [address] Neutrophils (Bld) [#/Vol] 4.5 10*3/uL Normal 1.8-7.7 [facility] Comment on above: Order Comment: NONFA STING.JKW Performed By: #### H CV RX PCR, RPR W RFX, RUBELLA IGG, HBSAG, HIV SCREEN #### [facility] , #### CUU, A1C WTH eA, CBC, URDS #### [address] Neutrophils/100 WBC (Bld) 71.5 % Normal . [facility] Comment on above: Order Comment: NONFA STING.JKW Performed By: #### H CV RX PCR, RPR W RFX, RUBELLA IGG, HBSAG, HIV SCREEN #### [facility] , #### CUU, A1C WTH eA, CBC, URDS #### [address] NRBC% 0.0 /100{WBC} Normal 0-0.5 The [facility] Comment on above: Order Comment: NONFA STING.JKW Performed By: #### H CV RX PCR, RPR W RFX, RUBELLA IGG, HBSAG, HIV SCREEN #### [facility] , #### CUU, A1C WTH eA, CBC, URDS #### [address] Platelet mean volume (Bld) [Entitic vol] 8.8 fL Normal 6.3-10.7 The [facility] Comment on above: Order Comment: NONFA STING.JKW Performed By: #### H CV RX PCR, RPR W RFX, RUBELLA IGG, HBSAG, HIV SCREEN #### [facility] , #### CUU, A1C WTH eA, CBC, URDS #### [facility] [address] Platelets (Bld) [#/Vol] 225 10*3/uL Normal 150-450 [facility] Comment on above: Order Comment: NONFA STING.JKW Performed By: #### H CV RX PCR, RPR W RFX, RUBELLA IGG, HBSAG, HIV SCREEN #### [facility] , #### CUU, A1C WTH eA, CBC, URDS #### [facility] [address] [place] [id number] [facility] RBC (Bld) [#/Vol] 4.69 10*6/uL Normal 3.60-5.00 The [facility] Comment on above: Order Comment: NONFA STING.JKW Performed By: #### H CV RX PCR, RPR W RFX, RUBELLA IGG, HBSAG, HIV SCREEN #### [facility] , #### CUU, A1C WTH eA, CBC, URDS #### [facility] [address] [place] [id number] [facility] WBC (Bld) [#/Vol] 6.4 10*3/uL Normal 3.8-11.6 [facility] Comment on above: Order Comment: NONFA STING.JKW Performed By: #### H CV RX PCR, RPR W RFX, RUBELLA IGG, HBSAG, HIV SCREEN #### [facility] , #### CUU, A1C WTH eA, CBC, URDS #### [facility] [address] Drug Screen,Urineon 12-28-19 25 Amphetamine Screen,Urine Negative Normal Negative [facility] Comment on above: Order Comment: NONFA STING.JKW Performed By: #### H CV RX PCR, RPR W RFX, RUBELLA IGG, HBSAG, HIV SCREEN ####[facility] ,#### CUU, A1C WTH eA, CBC, URDS ####[address] Barbiturate Screen,Urine Negative Normal Negative [facility] Comment on above: Order Comment: NONFA STING.JKW Performed By: #### H CV RX PCR, RPR W RFX, RUBELLA IGG, HBSAG, HIV SCREEN ####[facility] ,#### CUU, A1C WTH eA, CBC, URDS ####[address] Benzodiazepines Screen,Urine Negative Normal Negative [facility] Comment on above: Order Comment: NONFA STING.JKW Performed By: #### H CV RX PCR, RPR W RFX, RUBELLA IGG, HBSAG, HIV SCREEN ####[facility] ,#### CUU, A1C WTH eA, CBC, URDS ####[address] Cannabinoid Screen,Urine Negative Normal Negative [facility] Comment on above: Order Comment: NONFA STING.JKW Result Comment: Thes e are unconfirmed results and should not be used for legal purposes. Drug Cut-Off Concentration: AMPH 1000 ng/mL ABELARDO 200 ng/mL JESSE 200 ng/mL COCM 300 ng/mL OP 300 ng/mL PCP 25 ng/mL THC 20 ng/mL PERFORMED BY: [facility] [address] [place] [address] MARKER LEÓN GARCIA M.D. Performed By: #### H CV RX PCR, RPR W RFX, RUBELLA IGG, HBSAG, HIV SCREEN ####[facility] ,#### CUU, A1C WTH eA, CBC, URDS ####[address] Cocaine Screen,Urine Negative Normal Negative [facility] Comment on above: Order Comment: NONFA STING.JKW Performed By: #### H CV RX PCR, RPR W RFX, RUBELLA IGG, HBSAG, HIV SCREEN ####[facility] ,#### CUU, A1C WTH eA, CBC, URDS ####[facility] Opiate Screen,Urine Negative Normal Negative The [facility] Comment on above: Order Comment: NONFA STING.JKW Performed By: #### H CV RX PCR, RPR W RFX, RUBELLA IGG, HBSAG, HIV SCREEN ####[facility] ,#### CUU, A1C WTH eA, CBC, URDS ####[place] [address] [address] Phencyclidine Screen,Urine Negative Normal Negative [facility] Comment on above: Order Comment: NONFA STING.JKW Performed By: #### H CV RX PCR, RPR W RFX, RUBELLA IGG, HBSAG, HIV SCREEN ####[facility] ,#### CUU, A1C WTH eA, CBC, URDS ####[place] [address] [place] [id number] [facility] Eosinophils Auto (Bld) [#/Vo l]Ordered By: Yasmani Abdullahi on 12-27-2024 Eosinophils (Bld) [#/Vol] Automated eosinophil count 0.0-0.45 [facility] Eosinophils/100 WBC Auto (Bl d)Ordered By: Yasmani Abdullahi on 12-27-2024 Eosinophils/100 WBC (Bld) Automated eosinophil % . [facility] Erythrocyte distribution wid th Auto (RBC) [Ratio]Ordered By: Yasmani Abdullahi on 12-27-2024 Erythrocyte distribution width (RBC) [Ratio] Erythrocyte distribution width [Ratio] by Automated count 11.9-15.3 [facility] HIV 1/O/2 Antigen/Antibodyon 12-27-2024 HIV Screen 4th Generation Non-Reactive Normal Non Reactive [facility] Comment on above: Order Comment: NONFA STING.JKW Result Comment: HIV- 1/HIV-2 antibodies and HIV-1 p24 antigen were NOT detected. There is no laboratory evidence of HIV infection. HIV Negative Performed at: [address] [id number] Tooth Clerk: Garfield Fay PhD, Phone: [phone] Performed By: #### H CV RX PCR, RPR W RFX, RUBELLA IGG, HBSAG, HIV SCREEN ####[facility] ,#### CUU, A1C WTH eA, CBC, URDS ####[facility] [address] HIV antibody and antigen nails elOrdered By: Yasmani Abdullahi on 12-27-2024 HIV 1+2 Ab+HIV1 p24 Ag IA Ql HIV 1 and HIV-2 antibody assay with HIV-1 p24 antigen detection Non Reactive [facility] Comment on above: HIV-1/HIV-2 antibodi es and HIV-1 p24 antigen were NOTdetected. There is no laboratory evidence of HIV infection.HIV NegativePerformed at: - [facility] [address] [id number] Director: Garfield Fay PhD, Phone: [phone] Hematocrit Auto (Bld) [Volum e fraction]Ordered By: Yasmani Abdullahi on 12-27-2024 Hematocrit (Bld) [Volume fraction] Hematocrit [Volume Fraction] of Blood by Automated count 34.0-46.4 [facility] Hemoglobin A1c/Hemoglobin.to dylan in BloodOrdered By: Yasmani Abdullahi on 12-27-2024 HbA1c (Bld) [Mass fraction] Hemoglobin A1c percentage 4.3-5.6 [facility] Comment on above: Increased risk for d iabetes: 5.7 - 6.4diabetes: >6.4glycemic control for adults with diabetes: <7.0 Hemoglobin [Mass/volume] in BloodOrdered By: Yasmani Abdullahi on 12-27-2024 Hemoglobin (Bld) [Mass/Vol] Hemoglobin [Mass/volume] in Blood 11.8-15.4 [facility] Hep C Ab wRfx to Qnt PCRon 0 12-27-2024 Hepatitis C Virus Antibody Non-Reactive Normal Non Reactive [facility] Comment on above: Order Comment: NONFA STING.JKW Performed By: #### H CV RX PCR, RPR W RFX, RUBELLA IGG, HBSAG, HIV SCREEN ####[facility] ,#### CUU, A1C WTH eA, CBC, URDS ####[place] [address] [address] Interpretation Hepatitis C Comment Normal . [facility] Comment on above: Order Comment: NONFA STING.JKW Result Comment: Not infected with HCV unless early or acute infection is suspected (which may be delayed in an immunocompromised individual), or other evidence exists to indicate HCV infection. Performed By: #### H CV RX PCR, RPR W RFX, RUBELLA IGG, HBSAG, HIV SCREEN ####[facility] ,#### CUU, A1C WTH eA, CBC, URDS ####[address] Hepatitis B Surface Antigeno n 12-27-2024 HBsAg Screen Negative Normal Negative [facility] Comment on above: Order Comment: NONFA STING.JKW Result Comment: Perf ormed at: CB - [facility] [place] [id number] Tooth Clerk: Garfield Fay PhD, Phone: [phone] PERFORMED BY: [place] [address] MARKER LEÓN GARCIA M.D. Performed By: #### H CV RX PCR, RPR W RFX, RUBELLA IGG, HBSAG, HIV SCREEN ####[facility] ,#### CUU, A1C WTH eA, CBC, URDS ####[address] Hepatitis C virus IgG Ab [Pr esence] in Serum or Plasma by ImmunoassayOrdered By: Yasmani Abdullahi on 12-27-2024 HCV IgG IA Ql Hepatitis C virus Ig G Ab [Presence] in Serum or Plasma by Immunoassay Non Reactive [facility] Leukocytes [#/volume] correc randolph for nucleated erythrocytes in Blood by Automated counOrdered By: Yasmani Abdullahi on 12-27-2024 WBC corrected for nucl RBC Auto (Bld) [#/Vol] Leukocytes [#/volume] corrected for nucleated erythrocytes in Blood by Automated coun 3.8-11.6 [facility] Lymphocytes Auto (Bld) [#/Vo l]Ordered By: Yasmani Abdullahi on 12-27-2024 Lymphocytes (Bld) [#/Vol] Lymphocytes [#/volume] in Blood by Automated count 1.00-4.8 [facility] Lymphocytes/100 WBC Auto (Bl d)Ordered By: Yasmani Abdullahi on 12-27-2024 Lymphocytes/100 WBC (Bld) Lymphocytes/100 leukocytes in Blood by Automated count . [facility] MCH Auto (RBC) [Entitic mass ]Ordered By: Yasmani Abdullahi on 12-27-2024 MCH (RBC) [Entitic mass] MCH [Entitic mass] by Automated count 24.7-34.3 [facility] MCHC Auto (RBC) [Mass/Vol]Or dered By: Yasmani Abdullahi on 12-27-2024 MCHC (RBC) [Mass/Vol] MCHC [Mass/volume] by Automated count 32.0-35.0 [facility] MCV Auto (RBC) [Entitic vol] Ordered By: Yasmani Abdullahi on 12-27-2024 MCV (RBC) [Entitic vol] MCV [Entitic volume] by Automated count 80-100 [facility] Monocytes Auto (Bld) [#/Vol] Ordered By: Yasmani Abdullahi on 12-27-2024 Monocytes (Bld) [#/Vol] Automated blood monocyte count 0.0-0.8 [facility] Monocytes/100 WBC Auto (Bld) Ordered By: Yasmani Abdullahi on 12-27-2024 Monocytes/100 WBC (Bld) Automated monocyte % . [facility] Neutrophils Auto (Bld) [#/Vo l]Ordered By: Yasmani Abdullahi on 12-27-2024 Neutrophils (Bld) [#/Vol] Neutrophils [#/volume] in Blood by Automated count 1.8-7.7 [facility] Neutrophils/100 WBC Auto (Bl d)Ordered By: Yasmani Abdullahi on 12-27-2024 Neutrophils/100 WBC (Bld) Automated neutrophil % . [facility] No Panel InformationOrdered By: Yasmani Abdullahi on 12-27-2024 Hepatitis C Interpretation Comment . [facility] Comment on above: Not infected with HC V unless early or acute infection issuspected (which may be delayed in an immunocompromisedindividual), or other evidence exists to indicate HCVinfection. Nucleated erythrocytes [Pres ence] in Blood by Automated countOrdered By: Yasmani Abdullahi on 12-27-2024 Nucleated RBC Auto Ql (Bld) Nucleated erythrocytes [Presence] in Blood by Automated count 0-0.5 [facility] Opiates [Presence] in Urine by Screen methodOrdered By: Yasmani Abdullahi on 12-27-2024 Opiates Screen Ql (U) Opiates [Presence] in Urine by Screen method Negative [facility] Phencyclidine Screen Ql (U)O rdered By: Yasmani Abdullahi on 12-27-2024 Phencyclidine Ql (U) Phencyclidine [Pres ence] in Urine by Screen method Negative [facility] Platelet mean volume Auto (B ld) [Entitic vol]Ordered By: Yasmani Abdullahi on 12-27-2024 Platelet mean volume (Bld) [Entitic vol] Platelet mean volume [Entitic volume] in Blood by Automated count 6.3-10.7 [facility] Platelets Auto (Bld) [#/Vol] Ordered By: Yasmani Abdullahi on 12-27-2024 Platelets (Bld) [#/Vol] Platelets [#/volume] in Blood by Automated count 150-450 [facility] RBC Auto (Bld) [#/Vol]Ordere d By: Yasmani Abdullahi on 12-27-2024 RBC (Bld) [#/Vol] Erythrocytes [#/volu me] in Blood by Automated count 3.60-5.00 [facility] RPR w/rfx to Quant TP Abson 12-27-2024 RPR, Rfx Quant RPR Non-Reactive Normal Non Reactive [facility] Comment on above: Order Comment: NONFA STING.JKW Result Comment: Perf ormed at: - [facility] [address] [id number] Tooth Clerk: Garfield Fay PhD, Phone: [phone] PERFORMED BY: [facility] [address] [place] [address] MARKER LEÓN GARCIA M.D. Performed By: #### H CV RX PCR, RPR W RFX, RUBELLA IGG, HBSAG, HIV SCREEN ####[facility] ,#### CUU, A1C WTH eA, CBC, URDS ####[place] [address] [place] [id number] [facility] Rubella IgG Antibodyon 12-27 Rubella IgG Antibody 1.22 Normal Immune >0.99 [facility] Comment on above: Order Comment: NONFA STING.JKW Result Comment: Non- immune <0.90 Equivocal 0.90 - 0.99 Immune >0.99 Performed By: #### H CV RX PCR, RPR W RFX, RUBELLA IGG, HBSAG, HIV SCREEN ####[facility] ,#### CUU, A1C WTH eA, CBC, URDS ####[place] [id number] [address] Rubella IgG antibody assayOr dered By: Yasmani Abdullahi on 12-27-2024 Rubella IgG Antibody 1.22 index Immune >0.99 [facility] Comment on above: Non-immune <0.90 Equ ivocal 0.90 - 0.99 Immune >0.99 Serum RPR testOrdered By: Rishi Abdullahi on 12-27-2024 Reagin Ab RPR Ql (S) Reagin Ab [Presence ] in Serum by RPR Non Reactive [facility] Comment on above: Performed at: [id number] [place], [place] [id number] Director: Garfield Fay PhD, Phone: [phone] Serum or plasma hepatitis B virus surface antigen detection by immunoassayOrdered By: Yasmani Abdullahi on 12-27-2024 HBV surface Ag IA Ql Hepatitis B virus s urface Ag [Presence] in Serum or Plasma by Immunoassay Negative [facility] Comment on above: Performed at: [place] [place], [place] [id number] Director: Garfield Fay PhD, Phone: [phone] Type and Screenon 12-27-2024 ABO and Rh group Nom (Bld) Blood group B Rh(D) negative Normal [facility] Comment on above: Order Comment: NONFA STING.JKW Result Comment: PERF ORMED BY: [place] [address] MARKER LEÓN GARCIA M.D. Urine Cultureon 12-27-2024 Bacteria identified Cx Nom (U) NONFASTING.JKW 15,000 colonies/ml mixed bacterial skin contaminants 2 Days PERFORMED BY: [address] [place] [address] MARKER LEÓN GARCIA M.D. Normal [facility] Comment on above: Performed By: #### H CV RX PCR, RPR W RFX, RUBELLA IGG, HBSAG, HIV SCREEN ####[facility] ,#### CUU, A1C WTH eA, CBC, URDS ####[facility] [id number] Urine cultureOrdered By: Paramjit Abdullahi on 12-27-2024 Bacteria identified Cx Nom (U) Urine culture [facility] WBC Auto (Bld) [#/Vol]Ordere d By: Yasmani Abdullahi on 12-27-2024 WBC (Bld) [#/Vol] Leukocytes [#/volume ] in Blood by Automated count 3.8-11.6 [facility] US OB TRANSVAGINALon 025 US OB TRANSVAGINAL [...] II, MD, PHD at 22-Dec-2024 08:23:50 AM [facility] Normal Not Available Comment on above: Order Comment: US OB TRANSVAGINAL No LMP recorded. Alanine aminotransferase [En zymatic activity/volume] in Serum or PlasmaOrdered By: Jose Forman on 12-06-2024 ALT [Catalytic activity/Vol] Alanine aminotransferase [Enzymatic activity/volume] in Serum or Plasma 7-52 [facility] Albumin [Mass/volume] in Ser um or Plasma by Bromocresol green (BCG) dye binding methoOrdered By: Jose Forman on 12-06-2024 Albumin BCG dye [Mass/Vol] Albumin [Mass/volume] in Serum or Plasma by Bromocresol green (BCG) dye binding metho 3.5-5.7 [facility] Alkaline phosphatase [Enzyma tic activity/volume] in Serum or PlasmaOrdered By: Jose Forman on 12-06-2024 ALP [Catalytic activity/Vol] Alkaline phosphatase [Enzymatic activity/volume] in Serum or Plasma 34-104 [facility] Appearance of UrineOrdered B y: Jose Forman on 12-06-2024 Appearance (U) Urine appearance Clear [facility] Aspartate aminotransferase [ Enzymatic activity/volume] in Serum or PlasmaOrdered By: Jose Forman on 12-06-2024 AST [Catalytic activity/Vol] Aspartate aminotransferase [Enzymatic activity/volume] in Serum or Plasma Low 13-39 [facility] Bacteria [Presence] in Urine by AutomatedOrdered By: Jose Forman on 12-06-2024 Bacteria Auto Ql (U) Bacteria [Presence] in Urine by Automated None Seen [facility] Basic Metabolic Panelon 11-18 Anion gap [Moles/Vol] 7.0 mmol/L Normal 6.0-15.0 [facility] Comment on above: Performed By: #### C BC, HCGQNT, LIPASE, PT, HS TROP, PTT, HEPATIC, BMP ####[address] Calcium [Mass/Vol] 9.1 mg/dL Normal 8.6-10.3 [facility] Comment on above: Performed By: #### C BC, HCGQNT, LIPASE, PT, HS TROP, PTT, HEPATIC, BMP ####[place] [address] [address] Chloride [Moles/Vol] 106 mmol/L Normal 98-107 [facility] Comment on above: Performed By: #### C BC, HCGQNT, LIPASE, PT, HS TROP, PTT, HEPATIC, BMP ####[address] CO2 [Moles/Vol] 24.6 mmol/L Normal 21.0-31.0 [facility] Comment on above: Performed By: #### C BC, HCGQNT, LIPASE, PT, HS TROP, PTT, HEPATIC, BMP ####[address] Creatinine [Mass/Vol] 0.70 mg/dL Normal 0.60-1.20 [facility] Comment on above: Performed By: #### C BC, HCGQNT, LIPASE, PT, HS TROP, PTT, HEPATIC, BMP ####[address] Creatinine Clr Calc Pharmacy 129.71 Normal [facility] Comment on above: Performed By: #### C BC, HCGQNT, LIPASE, PT, HS TROP, PTT, HEPATIC, BMP ####[address] GFR/1.73 sq M.predicted MDRD (S/P/Bld) [Vol rate/Area] mL/min/{1.73_m2} Normal [facility] Comment on above: Performed By: #### C BC, HCGQNT, LIPASE, PT, HS TROP, PTT, HEPATIC, BMP ####[address] Glucose [Mass/Vol] 94 mg/dL Normal 70-100 [facility] Comment on above: Result Comment: [facility] Glucose Reference Range is dependent on time and content of last meal. Glucose of more than 200 mg/dL in a nonstressed, ambulatory subject supports the diagnosis of Diabetes Mellitus. ADA recommended reference range Performed By: #### C BC, HCGQNT, LIPASE, PT, HS TROP, PTT, HEPATIC, BMP ####[address] Potassium [Moles/Vol] 3.6 mmol/L Normal 3.5-5.1 [facility] Comment on above: Performed By: #### C BC, HCGQNT, LIPASE, PT, HS TROP, PTT, HEPATIC, BMP ####[address] Sodium [Moles/Vol] 134 mmol/L Low 136-145 [facility] Comment on above: Performed By: #### C BC, HCGQNT, LIPASE, PT, HS TROP, PTT, HEPATIC, BMP ####[address] Urea nitrogen [Mass/Vol] 9 mg/dL Normal 7-25 [facility] Comment on above: Performed By: #### C BC, HCGQNT, LIPASE, PT, HS TROP, PTT, HEPATIC, BMP ####[address] Basophils Auto (Bld) [#/Vol] Ordered By: Jose Forman on 12-06-2024 Basophils (Bld) [#/Vol] Automated basophil count 0.0-0.2 [facility] Basophils/100 WBC Auto (Bld) Ordered By: Jose Forman on 12-06-2024 Basophils/100 WBC (Bld) Automated basophil % . [facility] Bilirubin Test strip Ql (U)O rdered By: Jose Forman on 12-06-2024 Bilirubin Ql (U) Bilirubin.total [Presence] in Urine by Test strip Negative [facility] Bilirubin.direct [Mass/volum e] in Serum or PlasmaOrdered By: Jose Forman on 12-06-2024 Bilirubin.direct [Mass/Vol] Bilirubin.direct [Mass/volume] in Serum or Plasma 0.03-0.18 [facility] Bilirubin.total [Mass/volume ] in Serum or PlasmaOrdered By: Jose Forman on 12-06-2024 Bilirubin [Mass/Vol] Bilirubin.total [Mass/volume] in Serum or Plasma 0.3-1.0 [facility] Calcium [Mass/volume] in Ser um or PlasmaOrdered By: Jose Forman on 12-06-2024 Calcium [Mass/Vol] Calcium [Mass/volume ] in Serum or Plasma 8.6-10.3 [facility] Carbon dioxide, total [Moles /volume] in Serum or PlasmaOrdered By: Jose Forman on 12-06-2024 CO2 [Moles/Vol] Carbon dioxide, tota l [Moles/volume] in Serum or Plasma 21.0-31.0 [facility] Chloride [Moles/volume] in [place] or PlasmaOrdered By: Jose Forman 12-06-2024 Chloride [Moles/Vol] Chloride [Moles/vol ume] in Serum or Plasma 98-107 [facility] Choriogonadotropin.beta subu nit [Units/volume] in Serum or PlasmaOrdered By: Jose Forman on 12-06-2024 HCG.beta subunit Qn Choriogonadotropin.b eta subunit [Units/volume] in Serum or Plasma [facility] Comment on above: Approximate Approxim ate hCG Gestational Age Range (mIU/ml) (weeks)0.2-1 5-50 1-2 50-500 2-3 100-5,000 3-4 500-10,000 4-5 1,000-50,000 5-6 10,000-100,000 6-8 15,000-200,000 8-12 10,000-100,000 Color Auto (U)Ordered By: Edin Forman on 12-06-2024 Color (U) Color of Urine by Auto Yellow [facility] Complete Blood Count Auto Di ffon 12-06-2024 Basophils (Bld) [#/Vol] 0.0 10*3/uL Normal 0.0-0.2 [facility] Comment on above: Result Comment: PERF ORMED BY: [facility] [address] [facility] [place] [address] MARKER LEÓN GARCIA M.D. Performed By: #### C BC, HCGQNT, LIPASE, PT, HS TROP, PTT, HEPATIC, BMP ####[address] Basophils/100 WBC (Bld) 0.4 % Normal . [facility] Comment on above: Performed By: #### C BC, HCGQNT, LIPASE, PT, HS TROP, PTT, HEPATIC, BMP ####[address] Eosinophils (Bld) [#/Vol] 0.0 10*3/uL Normal 0.0-0.45 [facility] Comment on above: Performed By: #### C BC, HCGQNT, LIPASE, PT, HS TROP, PTT, HEPATIC, BMP ####[address] Eosinophils/100 WBC (Bld) 0.4 % Normal . [facility] Comment on above: Performed By: #### C BC, HCGQNT, LIPASE, PT, HS TROP, PTT, HEPATIC, BMP ####[address] Erythrocyte distribution width (RBC) [Ratio] 13.0 % Normal 11.9-15.3 [facility] Comment on above: Performed By: #### C BC, HCGQNT, LIPASE, PT, HS TROP, PTT, HEPATIC, BMP ####[address] Hematocrit (Bld) [Volume fraction] 38.5 % Normal 34.0-46.4 [facility] Comment on above: Performed By: #### C BC, HCGQNT, LIPASE, PT, HS TROP, PTT, HEPATIC, BMP ####[address] Hemoglobin (Bld) [Mass/Vol] 13.4 g/dL Normal 11.8-15.4 [facility] Comment on above: Performed By: #### C BC, HCGQNT, LIPASE, PT, HS TROP, PTT, HEPATIC, BMP ####[address] Lymphocytes (Bld) [#/Vol] 1.1 10*3/uL Normal 1.00-4.8 [facility] Comment on above: Performed By: #### C BC, HCGQNT, LIPASE, PT, HS TROP, PTT, HEPATIC, BMP ####[address] Lymphocytes/100 WBC (Bld) 14.1 % Normal . [facility] Comment on above: Performed By: #### C BC, HCGQNT, LIPASE, PT, HS TROP, PTT, HEPATIC, BMP ####[address] MCH (RBC) [Entitic mass] 27.6 pg Normal 24.7-34.3 [facility] Comment on above: Performed By: #### C BC, HCGQNT, LIPASE, PT, HS TROP, PTT, HEPATIC, BMP ####[address] MCV (RBC) [Entitic vol] 79.6 fL Low 80-100 [facility] Comment on above: Performed By: #### C BC, HCGQNT, LIPASE, PT, HS TROP, PTT, HEPATIC, BMP ####[address] Mean Corpuscular HGB Conc 34.7 g/dL Normal 32.0-35.0 [facility] Comment on above: Performed By: #### C BC, HCGQNT, LIPASE, PT, HS TROP, PTT, HEPATIC, BMP ####[address] Monocytes (Bld) [#/Vol] 0.5 10*3/uL Normal 0.0-0.8 [facility] Comment on above: Performed By: #### C BC, HCGQNT, LIPASE, PT, HS TROP, PTT, HEPATIC, BMP ####[address] Monocytes/100 WBC (Bld) 16.18 % Normal 0.00-20.00 [facility] Comment on above: Performed By: #### C BC, HCGQNT, LIPASE, PT, HS TROP, PTT, HEPATIC, BMP ####[address] Monocytes/100 WBC (Bld) 6.4 % Normal . [facility] Comment on above: Performed By: #### C BC, HCGQNT, LIPASE, PT, HS TROP, PTT, HEPATIC, BMP ####[address] Neutrophils (Bld) [#/Vol] 5.9 10*3/uL Normal 1.8-7.7 [facility] Comment on above: Performed By: #### C BC, HCGQNT, LIPASE, PT, HS TROP, PTT, HEPATIC, BMP ####[address] Neutrophils/100 WBC (Bld) 78.7 % Normal . [facility] Comment on above: Performed By: #### C BC, HCGQNT, LIPASE, PT, HS TROP, PTT, HEPATIC, BMP ####[address] NRBC% 0.0 /100{WBC} Normal 0-0.5 The [facility] Comment on above: Performed By: #### C BC, HCGQNT, LIPASE, PT, HS TROP, PTT, HEPATIC, BMP ####[place] [address] [place] Platelet mean volume (Bld) [Entitic vol] 8.7 fL Normal 6.3-10.7 The [facility] Comment on above: Performed By: #### C BC, HCGQNT, LIPASE, PT, HS TROP, PTT, HEPATIC, BMP ####[facility] Platelets (Bld) [#/Vol] 230 10*3/uL Normal 150-450 [facility] Comment on above: Performed By: #### C BC, HCGQNT, LIPASE, PT, HS TROP, PTT, HEPATIC, BMP ####[facility] RBC (Bld) [#/Vol] 4.84 10*6/uL Normal 3.60-5.00 The [facility] Comment on above: Performed By: #### C BC, HCGQNT, LIPASE, PT, HS TROP, PTT, HEPATIC, BMP ####[facility] WBC (Bld) [#/Vol] 7.6 10*3/uL Normal 3.8-11.6 [facility] Comment on above: Performed By: #### C BC, HCGQNT, LIPASE, PT, HS TROP, PTT, HEPATIC, BMP ####[facility] Creatinine [Mass/volume] in Serum or PlasmaOrdered By: Jose Forman on 12-06-2024 Creatinine [Mass/Vol] Creatinine [Mass/v olume] in Serum or Plasma 0.60-1.20 [facility] Dipstick and Microscopicon 0 12-06-2024 Appearance (U) Clear Normal Clear The [facility] Comment on above: Order Comment: Name Collection Type:: Clean-Voided Midstream Performed By: #### U HCG, ADDONUAPLUS #### [facility] [address] Bacteria,Urine None Seen Normal None Seen [facility] Comment on above: Order Comment: Name Collection Type:: Clean-Voided Midstream Performed By: #### U HCG, ADDONUAPLUS #### [address] Bilirubin,Urine Negative Normal Negative The [facility] Comment on above: Order Comment: Name Collection Type:: Clean-Voided Midstream Performed By: #### U HCG, ADDONUAPLUS #### [address] Color (U) Yellow Normal Yellow [facility] Comment on above: Order Comment: Name Collection Type:: Clean-Voided Midstream Performed By: #### U HCG, ADDONUAPLUS #### [address] Glucose Ql (U) Normal Normal Normal [facility] Comment on above: Order Comment: Name Collection Type:: Clean-Voided Midstream Performed By: #### U HCG, ADDONUAPLUS #### [place] [address] [place] Hyaline Casts,Urine None Normal 0-8 [facility] Comment on above: Order Comment: Name Collection Type:: Clean-Voided Midstream Performed By: #### U HCG, ADDONUAPLUS #### [address] Ketones Ql (U) 1+ High Negative [facility] Comment on above: Order Comment: Name Collection Type:: Clean-Voided Midstream Performed By: #### U HCG, ADDONUAPLUS #### [address] Leukocyte esterase Test strip Ql (U) Negative Normal Negative [facility] Comment on above: Order Comment: Name Collection Type:: Clean-Voided Midstream Performed By: #### U HCG, ADDONUAPLUS #### [place] [address] [place] Mucus,Urine Rare Normal [facility] Comment on above: Order Comment: Name Collection Type:: Clean-Voided Midstream Performed By: #### U HCG, ADDONUAPLUS #### [place] [address] [place] Nitrite,Urine Negative Normal Negative The [facility] Comment on above: Order Comment: Name Collection Type:: Clean-Voided Midstream Performed By: #### U HCG, ADDONUAPLUS #### [address] Occult Blood,Urine Negative Normal Negative [facility] Comment on above: Order Comment: Name Collection Type:: Clean-Voided Midstream Performed By: #### U HCG, ADDONUAPLUS #### [address] pH (U) 6.5 [pH] Normal 5.0-9.0 [facility] Comment on above: Order Comment: Name Collection Type:: Clean-Voided Midstream Performed By: #### U HCG, ADDONUAPLUS #### [address] Protein,Urine Trace High Negative The [facility] Comment on above: Order Comment: Name Collection Type:: Clean-Voided Midstream Performed By: #### U HCG, ADDONUAPLUS #### [place] [address] [place] RBC,Urine 1-2 Normal 0-4 [facility] Comment on above: Order Comment: Name Collection Type:: Clean-Voided Midstream Performed By: #### U HCG, ADDONUAPLUS #### [place] [address] [place] Specificy Proctor,Urine 1.025 Normal 1.001-1.03 0 [facility] Comment on above: Order Comment: Name Collection Type:: Clean-Voided Midstream Performed By: #### U HCG, ADDONUAPLUS #### [place] [address] [place] Squamous Epithelial Cell,Urine 1-2 Normal 0-2 [facility] Comment on above: Order Comment: Name Collection Type:: Clean-Voided Midstream Performed By: #### U HCG, ADDONUAPLUS #### [place] [address] [place] Urobilinogen,Urine Normal Normal Normal [facility] Comment on above: Order Comment: Name Collection Type:: Clean-Voided Midstream Performed By: #### U HCG, ADDONUAPLUS #### [facility] [address] [place] [address] WBC,Urine 1-2 Normal 0-4 [facility] Comment on above: Order Comment: Name Collection Type:: Clean-Voided Midstream Performed By: #### U HCG, ADDONUAPLUS #### [facility] [address] ECG 12 lead ECGon 12-06-2024 ECG 12 lead ECG [facility] [place] [address] [place] [address] Electrocardiograph Report Signed Patient: Noris Goetz MR#: [id number] 61 : 1990 Acct:[id number] Age/Sex: 34 / F ADM Date: 12/06/24 Loc: ER Room: Type: [facility] ER Attending Dr: Ordering Provider: [...] branch block Confirmed by Jose FORMAN DO ([id number]) on 12/06/2024 10:38:39 AM Referred By: Electronically Signed By: Jose FORMAN DO Transcribed By: MUS Signed By Jose Forman DO 0 12/06/24 1038 Normal [facility] Eosinophils Auto (Bld) [#/Vo l]Ordered By: Jose Forman on 12-06-2024 Eosinophils (Bld) [#/Vol] Automated eosinophil count 0.0-0.45 [facility] Eosinophils/100 WBC Auto (Bl d)Ordered By: Jose Forman on 12-06-2024 Eosinophils/100 WBC (Bld) Automated eosinophil % . [facility] Epithelial cells.squamous [# /area] in Urine sediment by Automated countOrdered By: Jose Forman on 12-06-2024 Epithelial cells.squamous Auto (Urine sed) [#/Area] Epithelial cells.squamous [#/area] in Urine sediment by Automated count 0-2 [facility] Erythrocyte distribution wid th Auto (RBC) [Ratio]Ordered By: Jose Forman on 12-06-2024 Erythrocyte distribution width (RBC) [Ratio] Erythrocyte distribution width [Ratio] by Automated count 11.9-15.3 [facility] Erythrocytes [#/area] in Uri ne sediment by Automated countOrdered By: Jose Forman on 12-06-2024 RBC Auto (Urine sed) [#/Area] Erythrocytes [#/area] in Urine sediment by Automated count 0-4 [facility] Globulin Calc (S) [Mass/Vol] Ordered By: Jose Forman on 12-06-2024 Globulin (S) [Mass/Vol] Serum globulin measurement by calculation (mass/volume) [facility] Glucose [Mass/volume] in Ser um or PlasmaOrdered By: Jose Forman on 12-06-2024 Glucose [Mass/Vol] Glucose [Mass/volume ] in Serum or Plasma 70-100 [facility] Comment on above: ADA recommended refe rence rangeRandom Glucose Reference Range is dependent on time and content of last meal. Glucose of more than 200 mg/dL in a nonstressed, ambulatory subject supports the diagnosis of Diabetes Mellitus. Glucose [Mass/volume] in Uri ne by Test stripOrdered By: Jose Forman on 12-06-2024 Glucose Test strip (U) [Mass/Vol] Glucose [Mass/volume] in Urine by Test strip Normal [facility] HCG ( test) IA.rapi d Ql (U)Ordered By: Jose Forman on 12-06-2024 HCG ( test) Ql (U) Urine human chorionic gonadotropin (hCG) detection by immunoassay High [facility] HCG,Quantitativeon HCG,Quantitative 045057.00 m[iU]/mL Normal [facility] Comment on above: Result Comment: Appr oximate Approximate hCG Gestational Age Range (mIU/ml) (weeks) 0.2-1 5-50 1-2 50-500 2-3 100-5,000 3-4 500-10,000 4-5 1,000-50,000 5-6 10,000-100,000 6-8 15,000-200,000 8-12 10,000-100,000 PERFORMED BY: [place] [address] MARKER LEÓN GARCIA M.D. Performed By: #### C BC, HCGQNT, LIPASE, PT, HS TROP, PTT, HEPATIC, BMP ####[place] [id number] HCG,Urineon 12-06-2024 Beta HCG ( test) Ql (U) Positive High [facility] Comment on above: Order Comment: Name Collection Type:: Clean-Voided Midstream Result Comment: PERF ORMED BY: [place] [address] MARKER LEÓN GARCIA M.D. Performed By: #### U HCG, ADDONUAPLUS #### [address] Hematocrit Auto (Bld) [Volum e fraction]Ordered By: Jose Forman on 12-06-2024 Hematocrit (Bld) [Volume fraction] Hematocrit [Volume Fraction] of Blood by Automated count 34.0-46.4 [facility] Hemoglobin Test strip Ql (U) Ordered By: Jose Forman on 12-06-2024 Hemoglobin Ql (U) Hemoglobin [Presence ] in Urine by Test strip Negative [facility] Hemoglobin [Mass/volume] in BloodOrdered By: Jose Forman on 12-06-2024 Hemoglobin (Bld) [Mass/Vol] Hemoglobin [Mass/volume] in Blood 11.8-15.4 [facility] Hepatic Panelon 12-06-2024 Albumin [Mass/Vol] 4.1 g/dL Normal 3.5-5.7 [facility] Comment on above: Performed By: #### C BC, HCGQNT, LIPASE, PT, HS TROP, PTT, HEPATIC, BMP ####[place] [id number] Albumin/Globulin [Mass ratio] 1.6 {ratio} Normal [facility] Comment on above: Performed By: #### C BC, HCGQNT, LIPASE, PT, HS TROP, PTT, HEPATIC, BMP ####[address] ALP [Catalytic activity/Vol] 47 U/L Normal 34-104 [facility] Comment on above: Performed By: #### C BC, HCGQNT, LIPASE, PT, HS TROP, PTT, HEPATIC, BMP ####[address] ALT [Catalytic activity/Vol] 11 U/L Normal 7-52 [facility] Comment on above: Performed By: #### C BC, HCGQNT, LIPASE, PT, HS TROP, PTT, HEPATIC, BMP ####[address] AST [Catalytic activity/Vol] 12 U/L Low 13-39 [facility] Comment on above: Performed By: #### C BC, HCGQNT, LIPASE, PT, HS TROP, PTT, HEPATIC, BMP ####[address] Bilirubin [Mass/Vol] 0.5 mg/dL Normal 0.3-1.0 [facility] Comment on above: Performed By: #### C BC, HCGQNT, LIPASE, PT, HS TROP, PTT, HEPATIC, BMP ####[address] Bilirubin,Indirect 0.4 mg/dL Normal [facility] Comment on above: Performed By: #### C BC, HCGQNT, LIPASE, PT, HS TROP, PTT, HEPATIC, BMP ####[address] Bilirubin.indirect [Mass/Vol] 0.10 mg/dL Normal 0.03-0.18 [facility] Comment on above: Performed By: #### C BC, HCGQNT, LIPASE, PT, HS TROP, PTT, HEPATIC, BMP ####[address] Globulin (S) [Mass/Vol] 2.6 g/dL Normal [facility] Comment on above: Performed By: #### C BC, HCGQNT, LIPASE, PT, HS TROP, PTT, HEPATIC, BMP ####[facility] [id number] Protein [Mass/Vol] 6.7 g/dL Normal 6.4-8.9 [facility] Comment on above: Performed By: #### C BC, HCGQNT, LIPASE, PT, HS TROP, PTT, HEPATIC, BMP ####[facility] [id number] Hyaline casts [#/area] in Ur ine sediment by Automated countOrdered By: Jose Forman on 12-06-2024 Hyaline casts Auto (Urine sed) [#/Area] Hyaline casts [#/area] in Urine sediment by Automated count 0-8 [facility] INR in Platelet poor plasma by Coagulation assayOrdered By: Jose Forman on 12-06-2024 INR Coag (PPP) [Relative time] INR in Platelet poor plasma by Coagulation assay [facility] Comment on above: INR Therapeutic Rang e [...] n Urine by Test strip High Negative [facility] Leukocyte esterase [Presence ] in Urine by Test stripOrdered By: Jose Forman on 12-06-2024 Leukocyte esterase Test strip Ql (U) Leukocyte esterase [Presence] in Urine by Test strip Negative [facility] Leukocytes [#/area] in Urine sediment by Automated countOrdered By: Jose Forman on 12-06-2024 WBC Auto (Urine sed) [#/Area] Leukocytes [#/area] in Urine sediment by Automated count 0-4 [facility] Leukocytes [#/volume] correc randolph for nucleated erythrocytes in Blood by Automated counOrdered By: Jose Forman on 12-06-2024 WBC corrected for nucl RBC Auto (Bld) [#/Vol] Leukocytes [#/volume] corrected for nucleated erythrocytes in Blood by Automated coun 3.8-11.6 [facility] Lipaseon 12-06-2024 Lipase [Catalytic activity/Vol] 11.0 U/L Normal 11.0-82.0 [facility] Comment on above: Performed By: #### C BC, HCGQNT, LIPASE, PT, HS TROP, PTT, HEPATIC, BMP ####[facility] [id number] [place] [address] [facility] Lipase [Enzymatic activity/v olume] in Serum or PlasmaOrdered By: Jose Forman on 12-06-2024 Lipase [Catalytic activity/Vol] Lipase [Enzymatic activity/volume] in Serum or Plasma 11.0-82.0 [facility] Lymphocytes Auto (Bld) [#/Vo l]Ordered By: Jose Forman on 12-06-2024 Lymphocytes (Bld) [#/Vol] Lymphocytes [#/volume] in Blood by Automated count 1.00-4.8 [facility] Lymphocytes/100 WBC Auto (Bl d)Ordered By: Jose Forman on 12-06-2024 Lymphocytes/100 WBC (Bld) Lymphocytes/100 leukocytes in Blood by Automated count . [facility] MCH Auto (RBC) [Entitic mass ]Ordered By: Jose Forman on 12-06-2024 MCH (RBC) [Entitic mass] MCH [Entitic mass] by Automated count 24.7-34.3 [facility] MCHC Auto (RBC) [Mass/Vol]Or dered By: Jose Forman on 12-06-2024 MCHC (RBC) [Mass/Vol] MCHC [Mass/volume] by Automated count 32.0-35.0 [facility] MCV Auto (RBC) [Entitic vol] Ordered By: Jose Forman on 12-06-2024 MCV (RBC) [Entitic vol] MCV [Entitic volume] by Automated count Low 80-100 [facility] Monocyte distribution width [Entitic volume] in Blood by AutomatedOrdered By: Jose Forman on 12-06-2024 Monocyte distribution width Auto (Bld) [Entitic vol] Monocyte distribution width [Entitic volume] in Blood by Automated 0.00-20.00 [facility] Monocytes Auto (Bld) [#/Vol] Ordered By: Jose Forman on 12-06-2024 Monocytes (Bld) [#/Vol] Automated blood monocyte count 0.0-0.8 [facility] Monocytes/100 WBC Auto (Bld) Ordered By: Jose Forman on 12-06-2024 Monocytes/100 WBC (Bld) Automated monocyte % . [facility] Mucus [Presence] in Urine by AutomatedOrdered By: Jose Forman on 12-06-2024 Mucus Auto Ql (U) Mucus [Presence] in Urine by Automated [facility] Neutrophils Auto (Bld) [#/Vo l]Ordered By: Jose Forman on 12-06-2024 Neutrophils (Bld) [#/Vol] Neutrophils [#/volume] in Blood by Automated count 1.8-7.7 [facility] Neutrophils/100 WBC Auto (Bl d)Ordered By: Jose Forman on 12-06-2024 Neutrophils/100 WBC (Bld) Automated neutrophil % . [facility] Nitrite Test strip Ql (U)Ord ered By: Jose Forman on 12-06-2024 Nitrite Ql (U) Nitrite [Presence] i n Urine by Test strip Negative [facility] No Panel InformationOrdered By: Jose Forman on 12-06-2024 Estimated GFR (CKD-EPI) > 60.0 mL/Min [facility] Creatinine Clearance (Chem 129.71 [facility] Nucleated erythrocytes [Pres ence] in Blood by Automated countOrdered By: Jose Forman on 12-06-2024 Nucleated RBC Auto Ql (Bld) Nucleated erythrocytes [Presence] in Blood by Automated count 0-0.5 [facility] Partial Thromboplastin Timeo n 12-06-2024 aPTT Coag (Bld) [Time] 28.1 s Normal 25.1-36.5 [facility] Comment on above: Result Comment: A he matocrit value greater than 55% may lead to inaccurate results in coagulation testing. Patients having hematocrit values >55% require a special collection tube for coagulation studies. Please contact the laboratory at [phone] for redraw instructions. PERFORMED BY: [facility] [address] [place] [address] MARKER LEÓN GARCIA M.D. Performed By: #### C BC, HCGQNT, LIPASE, PT, HS TROP, PTT, HEPATIC, BMP ####[facility] [id number] [place] [address] [facility] Platelet mean volume Auto (B ld) [Entitic vol]Ordered By: Jose Forman on 12-06-2024 Platelet mean volume (Bld) [Entitic vol] Platelet mean volume [Entitic volume] in Blood by Automated count 6.3-10.7 [facility] Platelets Auto (Bld) [#/Vol] Ordered By: Jose Forman on 12-06-2024 Platelets (Bld) [#/Vol] Platelets [#/volume] in Blood by Automated count 150-450 [facility] Potassium [Moles/volume] in Serum or PlasmaOrdered By: Jose Forman on 12-06-2024 Potassium [Moles/Vol] Potassium [Moles/v olume] in Serum or Plasma 3.5-5.1 [facility] Protein Test strip (U) [Mass /Vol]Ordered By: Jose Forman on 12-06-2024 Protein (U) [Mass/Vol] Protein [Mass/vol ume] in Urine by Test strip High Negative [facility] Protein [Mass/volume] in Ser um or PlasmaOrdered By: Jose Forman on 12-06-2024 Protein [Mass/Vol] Protein [Mass/volume ] in Serum or Plasma 6.4-8.9 [facility] Prothrombin Time INRon 12-06 INR Coag (PPP) [Relative time] 1.1 {INR} Normal [facility] Comment on above: Result Comment: [...] LIPASE, PT, HS TROP, PTT, HEPATIC, BMP ####[facility] [id number] [place] [address] [facility] PT Coag (PPP) [Time] 12.3 s Normal 9.0-12.9 [facility] Comment on above: Result Comment: A he matocrit value greater than 55% may lead to inaccurate results in coagulation testing. Patients having hematocrit values >55% require a special collection tube for coagulation studies. Please contact the laboratory at [phone] for redraw instructions. Performed By: #### C BC, HCGQNT, LIPASE, PT, HS TROP, PTT, HEPATIC, BMP ####[facility] [id number] [place] [address] [facility] Prothrombin time (PT)Ordered By: Jose Forman on 12-06-2024 PT Coag (PPP) [Time] Prothrombin time (PT) 9.0- 12.9 [facility] Comment on above: A hematocrit value g reater than 55% may lead to inaccurate results in coagulation testing. Patients having hematocrit values >55% require a special collection tube for coagulation studies. Please contact the laboratory at [phone] for redraw instructions. RBC Auto (Bld) [#/Vol]Ordere d By: Jose Forman on 12-06-2024 RBC (Bld) [#/Vol] Erythrocytes [#/volu me] in Blood by Automated count 3.60-5.00 [facility] Serum or plasma albumin/glob ulin mass ratioOrdered By: Jose Forman on 12-06-2024 Albumin/Globulin [Mass ratio] Serum or plasma albumin/globulin mass ratio [facility] Serum or plasma anion gap de terminationOrdered By: Jose Forman on 12-06-2024 Anion gap [Moles/Vol] Serum or plasma an ion gap determination 6.0-15.0 [facility] Serum or plasma non-glucuron idated bilirubin measurement (mass/volume)Ordered By: Jose Forman on 12-06-2024 Bilirubin.indirect [Mass/Vol] Serum or plasma non-glucuronidated bilirubin measurement (mass/volume) [facility] Sodium [Moles/volume] in Ser um or PlasmaOrdered By: Jose Forman on 12-06-2024 Sodium [Moles/Vol] Sodium [Moles/volume ] in Serum or Plasma Low 136-145 [facility] Specific gravity Test strip (U) [Rel density]Ordered By: Jose Forman on 12-06-2024 Specific gravity (U) [Rel density] Specific gravity of Urine by Test strip 1.001-1.03 0 [facility] Troponin I High Sensitivityo n 12-06-2024 Troponin I High Sensitivity 3 Normal 0-15 [facility] Comment on above: Result Comment: The Troponin units of report have been changed to meet the Chest Pain Accreditation requirement, element EC5.M1l2. Troponin units are changed from pg/ml to ng/L. Also, the decimal is removed and results are in whole numbers. PERFORMED BY: [place] [address] MARK[address] LEÓN GARCIA M.D. Performed By: #### C BC, HCGQNT, LIPASE, PT, HS TROP, PTT, HEPATIC, BMP ####[facility] [id number] Troponin I.cardiac [Mass/vol ume] in Serum or Plasma by Detection limit <= 0.01 ng/Ordered By: Jose Forman on 12-06-2024 Troponin I.cardiac DL <= 0.01 ng/mL [Mass/Vol] Troponin I.cardiac [Mass/volume] in Serum or Plasma by Detection limit <= 0.01 ng/ 0-15 [facility] Comment on above: The Troponin units o f report have been changed to meet the Chest Pain Accreditation requirement, element EC5.M1l2. Troponin units are changed from pg/ml to ng/L. Also, the decimal is removed and results are in whole numbers. US OB <= 14 weeks fetuson US OB <= 14 weeks fetus [facility] [address] Ultrasound Report Signed Patient: Noris Goetz MR#: [id number] 61 : 1990 Acct:[id number] Age/Sex: 34 / F ADM Date: 12/06/24 Loc: ER Room: Type: [facility] ER Attending Dr: Ordering Provider: Jose Forman DO Date of Service: 12/06/24 US/US OB <= 14 weeks fetus: Abdominal Pain Copies to: Jose Forman DO Obstetrical ultrasound for fetus less than 14 weeks HISTORY: Abdominal pain. Vaginal bleeding COMPARISON: None The heart rate is 126bpm. Ovaries not visualized No free fluid identified in cul-de-sac. No subchorionic hemorrhage identified. [place]-rump length measures 6.4cm consistent with 6 weeks 4 days. The yolk sac is not seen. The estimated due date by this ultrasound is 07/28/2025. US/US OB <= 14 weeks fetus IMPRESSION: Single live anterior gestation 6 weeks 4 days. Impression dictated by: Alfonzo Flores M.D.12/06/2024 9:55 AM Dictation Location: [place] [address] Tech: Antonieta Greenberg Transcribed By: JOSESITO 12/06/24 0955 Dictated By: Alfonzo Flores DO 12/06/24 0954 Signed By: 12/06/2455 Normal [facility] Urea nitrogen [Mass/volume] in Serum or PlasmaOrdered By: Jose Forman on 12-06-2024 Urea nitrogen [Mass/Vol] Urea nitrogen [Mass/volume] in Serum or Plasma 7 [facility] Urobilinogen Test strip (U) [Mass/Vol]Ordered By: Jose Forman on 12-06-2024 Urobilinogen (U) [Mass/Vol] Urobilinogen [Mass/volume] in Urine by Test strip Normal [facility] WBC Auto (Bld) [#/Vol]Ordere d By: Jose Forman on 12-06-2024 WBC (Bld) [#/Vol] Leukocytes [#/volume ] in Blood by Automated count 3.8-11.6 [facility] aPTT in Platelet poor plasma by Coagulation assayOrdered By: Jose Forman on 12-06-2024 aPTT Coag (PPP) [Time] Activated partial thromboplastin time (aPTT) in platelet poor plasma by coagulation a 25.1-36.5 [facility] Comment on above: A hematocrit value g reater than 55% may lead to inaccurate results in coagulation testing. Patients having hematocrit values >55% require a special collection tube for coagulation studies. Please contact the laboratory at [phone] for redraw instructions. 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 Scanned copy available in EMR. Pathology Request for Lab Co rpon 08-02-2024 Pathology Request for Lab Ministerio Normal [facility] Comment on above: Order Comment: PATHO LOGY SKIN SPECIMEN Result Comment: See report. Scanned copy available in EMR. PERFORMED BY: [place] [address] MARK[address] JOAN CROWLEY M.D. Performed By: #### P ATH TO [facility] ####[facility] [id number] [place] [id number] [facility] US extremity nonvascularon 0 05-23-2024 US extremity nonvascular [facility] [place] [address] [place] [address] Ultrasound Report Signed Patient: Noris Goetz MR#: [id number] 61 : 1990 Acct:[id number] Age/Sex: 34 / F ADM Date: 05/23/24 Loc: Room: Type: [facility] Attending Dr: Marianela Oliva MD Ordering Provider: [...] Annel Barnhart M.D.05/23/2024 2:18 PM Dictation Location: [facility]- Tech: Ayleen Hackett Transcribed By: JOSESITO 05/23/24 1418 Dictated By: Annel Barnhart MD 05/23/24 141 Signed By: 05/23/24 1418 Normal [facility] Automated basophil %Ordered By: Mario Perez on 05-17-2024 Basophils/100 WBC (Bld) 0.8 % Normal . [facility] Comment on above: Order Comment: FASTI NG. JKW Performed By: #### P ILLAR TSH, PILLAR CBC, PILLAR BMP, PILLAR LIPID #### [facility] [address] [place] [address] Automated basophil countOrde red By: Mario Perez on 05-17-2024 Basophils (Bld) [#/Vol] 0.0 10*3/uL Normal 0.0-0.2 [facility] Comment on above: Order Comment: FASTI NG. JKW Result Comment: PERF ORMED BY: [place] [address] MARKER JOAN CROWLEY M.D. Performed By: #### P ILLAR TSH, PILLAR CBC, PILLAR BMP, PILLAR LIPID #### [address] Automated blood monocyte cou ntOrdered By: Mario Perez on 05-17-2024 Monocytes (Bld) [#/Vol] 0.6 10*3/uL Normal 0.0-0.8 [facility] Comment on above: Order Comment: FASTI NG. JKW Performed By: #### P ILLAR TSH, PILLAR CBC, PILLAR BMP, PILLAR LIPID #### [address] Automated eosinophil %Ordere d By: Mario Perez on 05-17-2024 Eosinophils/100 WBC (Bld) 5.3 % Normal . [facility] Comment on above: Order Comment: FASTI NG. JKW Performed By: #### P ILLAR TSH, PILLAR CBC, PILLAR BMP, PILLAR LIPID #### [facility] [address] [place] [address] Automated eosinophil countOr dered By: Mario Perez on 05-17-2024 Eosinophils (Bld) [#/Vol] 0.3 10*3/uL Normal 0.0-0.45 [facility] Comment on above: Order Comment: FASTI NG. JKW Performed By: #### P ILLAR TSH, PILLAR CBC, PILLAR BMP, PILLAR LIPID #### [facility] [address] [place] [address] [place] Automated monocyte %Ordered By: Mario Perez on 05-17-2024 Monocytes/100 WBC (Bld) 10.8 % Normal . [facility] Comment on above: Order Comment: FASTI NG. JKW Performed By: #### P ILLAR TSH, PILLAR CBC, PILLAR BMP, PILLAR LIPID #### [facility] [address] Automated neutrophil %Ordere d By: Mario Perez on 05-17-2024 Neutrophils/100 WBC (Bld) 55.1 % Normal . [facility] Comment on above: Order Comment: FASTI NG. JKW Performed By: #### P ILLAR TSH, PILLAR CBC, PILLAR BMP, PILLAR LIPID #### [facility] [address] [place] [address] [place] Calcium [Mass/volume] in Ser um or PlasmaOrdered By: Mario Perez on 05-17-2024 Calcium [Mass/Vol] 8.5 mg/dL Low 8.6-10.3 [facility] Comment on above: Order Comment: FASTI NG. JKW Performed By: #### P ILLAR TSH, PILLAR CBC, PILLAR BMP, PILLAR LIPID #### [facility] [address] [place] [address] [place] Carbon dioxide, total [Moles /volume] in Serum or PlasmaOrdered By: Mario Perez on 05-17-2024 CO2 [Moles/Vol] 27.7 mmol/L Normal 21.0-31.0 [facility] Comment on above: Order Comment: FASTI NG. JKW Performed By: #### P ILLAR TSH, PILLAR CBC, PILLAR BMP, PILLAR LIPID #### [facility] [address] [place] [address] [place] Chloride [Moles/volume] in S eamon or PlasmaOrdered By: Mario Perez on 05-17-2024 Chloride [Moles/Vol] 109 mmol/L High 98-107 [facility] Comment on above: Order Comment: RONNIE HollandKW Performed By: #### P ILLAR TSH, PILLAR CBC, PILLAR BMP, PILLAR LIPID #### [facility] [address] Cholesterol [Mass/volume] in Serum or PlasmaOrdered By: Mario Perez on 05-17-2024 Cholesterol [Mass/Vol] 170 mg/dL Normal 140-200 [facility] Comment on above: Chol less than 200 m g/dl low riskChol 201-239 mg/dl borderline riskChol 240 mg/dl and greater high risk Order Comment: RONNIE MAURO JKW Result Comment: Chol less than 200 mg/dl low risk Chol 201-239 mg/dl borderline risk Chol 240 mg/dl and greater high risk Performed By: #### P ILLAR TSH, PILLAR CBC, PILLAR BMP, PILLAR LIPID #### [facility] [address] Cholesterol in LDL Calc [Mas s/Vol]Ordered By: Mario Perez on 05-17-2024 Cholesterol in LDL [Mass/Vol] 109 mg/dL High 0-100 [facility] Comment on above: LDL ATP III CLASSIFI CATIONLDL less than 100 mg/dL OptimalLDL 100-129 mg/dL Near or above optimalLDL 130-159 mg/dL Borderline highLDL 160-189 mg/dL HighLDL greater than 189 mg/dL Very high Cholesterol in VLDL Calc [Ma ss/Vol]Ordered By: Mario Perez on 05-17-2024 Cholesterol in VLDL [Mass/Vol] 10 mg/dL [facility] Creatinine [Mass/volume] in Serum or PlasmaOrdered By: Mario Perez on 05-17-2024 Creatinine [Mass/Vol] 0.73 mg/dL Normal 0.60-1.20 [facility] Comment on above: Order Comment: RONNIE MAURO JKW Performed By: #### P ILLAR TSH, PILLAR CBC, PILLAR BMP, PILLAR LIPID #### [facility] [address] Employee Basic Metabolic Nails anushka 05-17-2024 GFR/1.73 sq M.predicted MDRD (S/P/Bld) [Vol rate/Area] mL/min/{1.73_m2} Normal [facility] Comment on above: Order Comment: FASTI NG. JKW Performed By: #### P ILLAR TSH, PILLAR CBC, PILLAR BMP, PILLAR LIPID #### [facility] [address] Employee Complete Blood Coun ton 05-17-2024 Mean Corpuscular HGB Conc 34.2 g/dL Normal 32.0-35.0 [facility] Comment on above: Order Comment: FASTI NG. JKW Performed By: #### P ILLAR TSH, PILLAR CBC, PILLAR BMP, PILLAR LIPID #### [facility] [address] NRBC% 0.1 /100{WBC} Normal 0-0.5 [facility] Comment on above: Order Comment: FASTI NG. JKW Performed By: #### P ILLAR TSH, PILLAR CBC, PILLAR BMP, PILLAR LIPID #### [facility] [address] Employee Lipid Profileon LDL Cholesterol,Calculated 109 mg/dL High 0-100 [facility] Comment on above: Order Comment: FASTI NG. JKW Result Comment: LDL ATP III CLASSIFICATION LDL less than 100 mg/dL Optimal LDL 100-129 mg/dL Near or above optimal LDL 130-159 mg/dL Borderline high LDL 160-189 mg/dL High LDL greater than 189 mg/dL Very high Performed By: #### P ILLAR TSH, PILLAR CBC, PILLAR BMP, PILLAR LIPID #### [facility] [address] Triglyceride w/Reflex 52 mg/dL Normal 0-149 [facility] Comment on above: Order Comment: [...] PILLAR CBC, PILLAR BMP, PILLAR LIPID #### [address] VLDL CHOLESTEROL 10 mg/dL Normal [facility] Comment on above: Order Comment: FASTI NG. JKW Performed By: #### P ILLAR TSH, PILLAR CBC, PILLAR BMP, PILLAR LIPID #### [address] Employee Thyroid Stim Hormon paulo 05-17-2024 Employee Thyroid Stim Hormone 1.90 u[iU]/mL Normal 0.45-5.33 [facility] Comment on above: Order Comment: FASTI NG. JKW Result Comment: PERF ORMED BY: [place] [address] MARKER JOAN CROWLEY M.D. Performed By: #### P ILLAR TSH, PILLAR CBC, PILLAR BMP, PILLAR LIPID #### [address] Erythrocyte distribution wid th [Ratio] by Automated countOrdered By: Mario Perez on 05-17-2024 Erythrocyte distribution width (RBC) [Ratio] 13.7 % Normal 11.9-15.3 [facility] Comment on above: Order Comment: FASTI NG. JKW Performed By: #### P ILLAR TSH, PILLAR CBC, PILLAR BMP, PILLAR LIPID #### [address] Erythrocytes [#/volume] in B lood by Automated countOrdered By: Mario Perez on 05-17-2024 RBC (Bld) [#/Vol] 4.62 10*6/uL Normal 3.60-5.[address] [facility] Comment on above: Order Comment: FASTI NG. JKW Performed By: #### P ILLAR TSH, PILLAR CBC, PILLAR BMP, PILLAR LIPID #### [address] Glucose [Mass/volume] in Ser um or PlasmaOrdered By: Mario Perez on 05-17-2024 Glucose [Mass/Vol] 95 mg/dL Normal 70-100 [facility] Comment on above: Order Comment: FASTJoni COBIAN. JKW Performed By: #### P ILLAR TSH, PILLAR CBC, PILLAR BMP, PILLAR LIPID #### [facility] [address] Hematocrit [Volume Fraction] of Blood by Automated countOrdered By: Mario Perez on 05-17-2024 Hematocrit (Bld) [Volume fraction] 36.7 % Normal 34.0-46.4 [facility] Comment on above: Order Comment: FASTI ARANZA. JKW Performed By: #### P ILLAR TSH, PILLAR CBC, PILLAR BMP, PILLAR LIPID #### [place] [address] [place] Hemoglobin [Mass/volume] in BloodOrdered By: Mario Perez on 05-17-2024 Hemoglobin (Bld) [Mass/Vol] 12.6 g/dL Normal 11.8-15.4 [facility] Comment on above: Order Comment: FASTI ARANZA. JKW Performed By: #### P ILLAR TSH, PILLAR CBC, PILLAR BMP, PILLAR LIPID #### [facility] [address] [place] [address] [place] Leukocytes [#/volume] correc randolph for nucleated erythrocytes in Blood by Automated counOrdered By: Mario Perez on 05-17-2024 WBC corrected for nucl RBC Auto (Bld) [#/Vol] 5.1 10*3/uL 3.8-11.6 [facility] Leukocytes [#/volume] in Blo od by Automated countOrdered By: Mario Perez on 05-17-2024 WBC (Bld) [#/Vol] 5.1 10*3/uL Normal 3.8-11.6 [facility] Comment on above: Order Comment: FASTI ARANZA. JKW Performed By: #### P ILLAR TSH, PILLAR CBC, PILLAR BMP, PILLAR LIPID #### [facility] [address] [place] [address] [place] Lymphocytes [#/volume] in Bl ood by Automated countOrdered By: Mario Perez on 05-17-2024 Lymphocytes (Bld) [#/Vol] 1.4 10*3/uL Normal 1.00-4.8 [facility] Comment on above: Order Comment: RONNIE MAURO JKW Performed By: #### P ILLAR TSH, PILLAR CBC, PILLAR BMP, PILLAR LIPID #### [facility] [address] [place] [address] [place] Lymphocytes/100 leukocytes i n Blood by Automated countOrdered By: Mario Perez on 05-17-2024 Lymphocytes/100 WBC (Bld) 28.0 % Normal . [facility] Comment on above: Order Comment: RONNIE HollandKW Performed By: #### P ILLAR TSH, PILLAR CBC, PILLAR BMP, PILLAR LIPID #### [facility] [address] MCH [Entitic mass] by Automa randolph countOrdered By: Mario Perez on 05-17-2024 MCH (RBC) [Entitic mass] 27.2 pg Normal 24.7-34.3 [facility] Comment on above: Order Comment: RONNIE HollandKW Performed By: #### P ILLAR TSH, PILLAR CBC, PILLAR BMP, PILLAR LIPID #### [facility] [address] [place] [address] MCHC Auto (RBC) [Mass/Vol]Or dered By: Mario Perez on 05-17-2024 MCHC (RBC) [Mass/Vol] 34.2 g/dL 32.0-35.0 [facility] MCV [Entitic volume] by Auto mated countOrdered By: Mario Perez on 05-17-2024 MCV (RBC) [Entitic vol] 79.4 fL Low 80-100 [facility] Comment on above: Order Comment: RONNIE MAURO JKW Performed By: #### P ILLAR TSH, PILLAR CBC, PILLAR BMP, PILLAR LIPID #### [facility] [address] [place] [address] [place] Neutrophils [#/volume] in Bl ood by Automated countOrdered By: Mario Perez on 05-17-2024 Neutrophils (Bld) [#/Vol] 2.8 10*3/uL Normal 1.8-7.7 [facility] Comment on above: Order Comment: FASTI NG. JKW Performed By: #### P ILLAR TSH, PILLAR CBC, PILLAR BMP, PILLAR LIPID #### [facility] [address] [place] [address] No Panel InformationOrdered By: Mario Perez on 05-17-2024 Estimated GFR (CKD-EPI) > 60.0 mL/Min [facility] Creatinine Clearance (Chem N/A [facility] Nucleated erythrocytes [Pres ence] in Blood by Automated countOrdered By: Mario Perez on 05-17-2024 Nucleated RBC Auto Ql (Bld) 0.1 /100{WBC} 0-0.5 [facility] Platelet mean volume [Entiti c volume] in Blood by Automated countOrdered By: Mario Perez on 05-17-2024 Platelet mean volume (Bld) [Entitic vol] 8.9 fL Normal 6.3-10.7 [facility] Comment on above: Order Comment: FASTI NG. JKW Performed By: #### P ILLAR TSH, PILLAR CBC, PILLAR BMP, PILLAR LIPID #### [address] Platelets [#/volume] in Bloo d by Automated countOrdered By: Mario Perez on 05-17-2024 Platelets (Bld) [#/Vol] 192 10*3/uL Normal 150-450 [facility] Comment on above: Order Comment: FASTI NG. JKW Performed By: #### P ILLAR TSH, PILLAR CBC, PILLAR BMP, PILLAR LIPID #### [facility] [address] [place] [address] Potassium [Moles/volume] in Serum or PlasmaOrdered By: Mario Perez on 05-17-2024 Potassium [Moles/Vol] 3.9 mmol/L Normal 3.5-5.1 [facility] Comment on above: Order Comment: FASTI NG. JKW Performed By: #### P ILLAR TSH, PILLAR CBC, PILLAR BMP, PILLAR LIPID #### [facility] [address] Serum or plasma anion gap de terminationOrdered By: Mario Perez on 05-17-2024 Anion gap [Moles/Vol] 7.2 mmol/L Normal 6.0-15.0 [facility] Comment on above: Order Comment: RONNIE COBIAN. JKW Performed By: #### P ILLAR TSH, PILLAR CBC, PILLAR BMP, PILLAR LIPID #### [facility] [address] Serum or plasma high density lipoprotein (HDL) cholesterol measurementOrdered By: Mario Perez on 05-17-2024 Cholesterol in HDL [Mass/Vol] 51 mg/dL Normal 23-92 [facility] Comment on above: HDL CHOL ATP-III CLA SSIFICATION Cardiovascular RiskHDL > or equal to 60 mg/dL LOWHDL < 40 mg/dL HIGH Order Comment: FASTJoni COBIAN. JKW Result Comment: HDL CHOL ATP-III CLASSIFICATION Cardiovascular Risk HDL > or equal to 60 mg/dL LOW HDL < 40 mg/dL HIGH Performed By: #### P ILLAR TSH, PILLAR CBC, PILLAR BMP, PILLAR LIPID #### [facility] [address] [place] [address] Serum or plasma total choles terol/high density lipoprotein (HDL) cholesterol mass ratOrdered By: Mario Perez on 05-17-2024 Cholesterol.total/Chol esterol in HDL [Mass ratio] 3.3 {ratio} Normal <5.0 [facility] Comment on above: Order Comment: RONNIE COBIAN. JKW Performed By: #### P ILLAR TSH, PILLAR CBC, PILLAR BMP, PILLAR LIPID #### [facility] [address] [place] [address] Sodium [Moles/volume] in Ser um or PlasmaOrdered By: Mario Perez on 05-17-2024 Sodium [Moles/Vol] 140 mmol/L Normal 136-145 [facility] Comment on above: Order Comment: RONNIE COBIAN. JKW Performed By: #### P ILLAR TSH, PILLAR CBC, PILLAR BMP, PILLAR LIPID #### [facility] [address] Thyrotropin [Units/volume] i n Serum or PlasmaOrdered By: Mario Perez on 05-17-2024 TSH Qn 1.90 m[IU]/L 0.45-5.33 [facility] Triglyceride [Mass/volume] i n Serum or PlasmaOrdered By: Mario Perez on 05-17-2024 Triglyceride [Mass/Vol] 52 mg/dL 0-149 [facility] Comment on above: TRIG ATP III CLASSIF ICATIONTRIG less than 150 mg/dL NormalTRIG 150-199 mg/dL Borderline highTRIG 200-500 mg/dL High TRIG greater than 500 mg/dL Very highStandard traceable to the Center for Disease Conrtrol and Prevention (CDC) test method. Urea nitrogen [Mass/volume] in Serum or PlasmaOrdered By: Mario Perez on 05-17-2024 Urea nitrogen [Mass/Vol] 15 mg/dL Normal 05-11 [facility] Comment on above: Order Comment: RONNIE COBIAN. JKW Performed By: #### P ILLAR TSH, PILLAR CBC, PILLAR BMP, PILLAR LIPID #### [facility] [address] Alanine aminotransferase [En zymatic activity/volume] in Serum or PlasmaOrdered By: Mario Perez on 07-12-2023 ALT [Catalytic activity/Vol] 14 U/L 7 [facility] Albumin [Mass/volume] in Ser um or Plasma by Bromocresol green (BCG) dye binding methoOrdered By: Mario Perez on 07-12-2023 Albumin BCG dye [Mass/Vol] 4.2 g/dL 3.5-5.7 [facility] Alkaline phosphatase [Enzyma tic activity/volume] in Serum or PlasmaOrdered By: Mario Perez on 07-12-2023 ALP [Catalytic activity/Vol] 45 U/L 34-104 [facility] Aspartate aminotransferase [ Enzymatic activity/volume] in Serum or PlasmaOrdered By: Mario Perez on 07-12-2023 AST [Catalytic activity/Vol] 15 U/L 13-39 [facility] Bilirubin.total [Mass/volume ] in Serum or PlasmaOrdered By: Mario Perez on 07-12-2023 Bilirubin [Mass/Vol] 0.4 mg/dL 0.3-1.0 [facility] Calcium [Mass/volume] in Ser um or PlasmaOrdered By: Mario Perez on 07-12-2023 Calcium [Mass/Vol] 8.9 mg/dL 8.6-10.3 [facility] Carbon dioxide, total [Moles /volume] in Serum or PlasmaOrdered By: Mario Perez on 07-12-2023 CO2 [Moles/Vol] 28.7 mmol/L 21.0-31.0 [facility] Chloride [Moles/volume] in S eamon or PlasmaOrdered By: Mario Perez on 07-12-2023 Chloride [Moles/Vol] 106 mmol/L 98-107 [facility] Cholesterol [Mass/volume] in Serum or PlasmaOrdered By: Mario Perez on 07-12-2023 Cholesterol [Mass/Vol] 194 mg/dL 140-200 [facility] Comment on above: Chol less than 200 m g/dl low riskChol 201-239 mg/dl borderline riskChol 240 mg/dl and greater high risk Cholesterol in LDL Calc [Mas s/Vol]Ordered By: Mario Perez on 07-12-2023 Cholesterol in LDL [Mass/Vol] 119 mg/dL 0-100 [facility] Comment on above: LDL ATP III CLASSIFI CATIONLDL less than 100 mg/dL OptimalLDL 100-129 mg/dL Near or above optimalLDL 130-159 mg/dL Borderline highLDL 160-189 mg/dL HighLDL greater than 189 mg/dL Very high Cholesterol in VLDL Calc [Ma ss/Vol]Ordered By: Mario Perez on 07-12-2023 Cholesterol in VLDL [Mass/Vol] 12 mg/dL [facility] [facility] Creatinine [Mass/volume] in Serum or PlasmaOrdered By: Mario Perez on 07-12-2023 Creatinine [Mass/Vol] 0.78 mg/dL 0.60-1.20 [facility] Globulin Calc (S) [Mass/Vol] Ordered By: Mario Perez on 07-12-2023 Globulin (S) [Mass/Vol] 2.2 g/dL [facility] Glucose [Mass/volume] in Ser um or PlasmaOrdered By: Mario Perez on 07-12-2023 Glucose [Mass/Vol] 99 mg/dL 70-100 [facility] No Panel InformationOrdered By: Mario Perez on 07-12-2023 Estimated GFR (CKD-EPI) > 60.0 mL/Min [facility] Creatinine Clearance (Chem N/A [facility] Potassium [Moles/volume] in Serum or PlasmaOrdered By: Mario Perez on 07-12-2023 Potassium [Moles/Vol] 4.3 mmol/L 3.5-5.1 [facility] Protein [Mass/volume] in Ser um or PlasmaOrdered By: Mario Perez on 07-12-2023 Protein [Mass/Vol] 6.4 g/dL 6.4-8.9 [facility] Serum or plasma albumin/glob ulin mass ratioOrdered By: Mario Perez on 07-12-2023 Albumin/Globulin [Mass ratio] 1.9 {ratio} [facility] Serum or plasma anion gap de terminationOrdered By: Mario Perez on 07-12-2023 Anion gap [Moles/Vol] 8.6 mmol/L 6.0-15.0 [facility] Serum or plasma high density lipoprotein (HDL) cholesterol measurementOrdered By: Mario Perez on 07-12-2023 Cholesterol in HDL [Mass/Vol] 63 mg/dL 23-92 [facility] Comment on above: HDL CHOL ATP-III CLA SSIFICATION Cardiovascular RiskHDL > or equal to 60 mg/dL LOWHDL < 40 mg/dL HIGH Serum or plasma total choles terol/high density lipoprotein (HDL) cholesterol mass ratOrdered By: Mario Perez on 07-12-2023 Cholesterol.total/Chol esterol in HDL [Mass ratio] 3.1 {ratio} <5.0 [facility] Sodium [Moles/volume] in Ser um or PlasmaOrdered By: Mario Perez on 07-12-2023 Sodium [Moles/Vol] 139 mmol/L 136-145 [facility] Triglyceride [Mass/volume] i n Serum or PlasmaOrdered By: Mario Perez on 07-12-2023 Triglyceride [Mass/Vol] 61 mg/dL 0-149 [facility] Comment on above: TRIG ATP III CLASSIF ICATIONTRIG less than 150 mg/dL NormalTRIG 150-199 mg/dL Borderline highTRIG 200-500 mg/dL High TRIG greater than 500 mg/dL Very highStandard traceable to the Center for Disease Conrtrol and Prevention (CDC) test method. Urea nitrogen [Mass/volume] in Serum or PlasmaOrdered By: Mario Perez on 07-12-2023 Urea nitrogen [Mass/Vol] 13 mg/dL 7-25 [facility] Human papilloma virus 16+18+ 31+33+35+39+45+51+52+56+58+59+66+68 DNA [Presence] in CerOrdered By: MARISSA GARCIA on 12-15-2022 HPV 16+18+31+33+35+39+45+5 1+52+56+58+59+66+68 DNA Probe+sig amp Ql (Cvx) Negative Negative [facility] Comment on above: This nucleic acid am plification test detects fourteen high- risk HPV types (16,18,31,33,35,39,45,51,52,56,58,59,66,68)without differentiation.Performed at: [facility] [id number] Director: Azalea Quezada MD, Phone: [phone] at: =[facility] - [facility] [address] [id number] Director: Azalea Quezada MD, Phone: [phone] No Panel InformationOrdered By: MARISSA GARCIA on 12-15-2022 IG Pap w/Ct-Ng & HPV Rflx (Off-Site Note . [facility] Comment on above: TESTS RESULT FLAG UN ITS REF RANGE LAB Clinician Provided Cytology Information No. of containers..01 ThinPrep VialDIAGNOSIS: 01 NEGATIVE FOR INTRAEPITHELIAL LESION OR MALIGNANCY.Specimen adequacy: 01 Satisfactory for evaluation. Endocervical and/or squamous metaplastic cells (endocervical component) are present.Performed by: Balbir Garcia, Government Contracts Manager ([facility]). 01Note: Note 01 The Pap smear is [...] High <-Panic Low,>-Panic High,A-Abnormal,AA-Critical Abnormal -----Performed at:[address] [place] [address] Azalea Quezada MD, Albumin [Mass/volume] in Ser um or PlasmaOrdered By: Marianela Oliva on 06-26-2022 Albumin [Mass/Vol] 3.8 g/dL 3.2-5.5 [facility] Basophils Auto (Bld) [#/Vol] Ordered By: Marianela Oliva on 06-26-2022 Basophils (Bld) [#/Vol] 0.0 10*3/uL 0.0-0.2 [facility] Basophils/100 WBC Auto (Bld) Ordered By: Marianela Oliva on 06-26-2022 Basophils/100 WBC (Bld) 0.7 % . [facility] Cholesterol [Mass/volume] in Serum or PlasmaOrdered By: Marianela Oliva on 06-26-2022 Cholesterol [Mass/Vol] 177 mg/dL 140-200 [facility] Comment on above: Chol less than 200 m g/dl low riskChol 201-239 mg/dl borderline riskChol 240 mg/dl and greater high risk Cholesterol in LDL Calc [Mas s/Vol]Ordered By: Marianela Oliva on 06-26-2022 Cholesterol in LDL [Mass/Vol] 118 mg/dL 0-100 [facility] Comment on above: LDL ATP III CLASSIFI CATIONLDL less than 100 mg/dL OptimalLDL 100-129 mg/dL Near or above optimalLDL 130-159 mg/dL Borderline highLDL 160-189 mg/dL HighLDL greater than 189 mg/dL Very high Cholesterol in VLDL Calc [Ma ss/Vol]Ordered By: Marianela Oliva on 06-26-2022 Cholesterol in VLDL [Mass/Vol] 10 mg/dL [facility] Creatinine and Glomerular fi ltration rate.predicted panel (S/P/Bld)Ordered By: Marianela Oliva on 06-26-2022 Creatinine [Mass/Vol] 0.77 mg/dL 0.44-1.03 [facility] Eosinophils Auto (Bld) [#/Vo l]Ordered By: Marianela Oliva on 06-26-2022 Eosinophils (Bld) [#/Vol] 0.2 10*3/uL 0.0-0.45 [facility] Eosinophils/100 WBC Auto (Bl d)Ordered By: Marianela Oliva on 06-26-2022 Eosinophils/100 WBC (Bld) 4.1 % . [facility] Erythrocyte distribution wid th Auto (RBC) [Ratio]Ordered By: Marianela Oliva on 06-26-2022 Erythrocyte distribution width (RBC) [Ratio] 13.1 % 11.9-15.3 [facility] Estimated glomerular filtrat ion rate (GFR) non- AmericanOrdered By: Marianela Oliva on 06-26-2022 GFR/1.73 sq M.predicted among non-blacks MDRD (S/P/Bld) [Vol rate/Area] > 60 mL/Min [facility] Globulin Calc (S) [Mass/Vol] Ordered By: Marianela Oliva on 06-26-2022 Globulin (S) [Mass/Vol] 2.3 g/dL [facility] Hematocrit Auto (Bld) [Volum e fraction]Ordered By: Marianela Oliva on 06-26-2022 Hematocrit (Bld) [Volume fraction] 38.9 % 34.0-46.4 [facility] Hemoglobin [Mass/volume] in BloodOrdered By: Marianela Oliva on 06-26-2022 Hemoglobin (Bld) [Mass/Vol] 13.1 g/dL 11.8-15.4 [facility] Laboratory - Chemistry and C hemistry - challengeOrdered By: Marianela Oliva on 06-26-2022 Glucose [Mass/Vol] 98 mg/dL 70-100 [facility] Laboratory - Hematology and Cell countsOrdered By: Marianela Oliva on 06-26-2022 Nucleated RBC/100 WBC (Bld) [Ratio] 0.0 % 0-0.5 [facility] Leukocytes [#/volume] in Blo od by Automated countOrdered By: Marianela Oliva on 06-26-2022 WBC (Bld) [#/Vol] 4.3 10*3/uL 4.5-11.0 [facility] Lymphocytes Auto (Bld) [#/Vo l]Ordered By: Marianela Oliva on 06-26-2022 Lymphocytes (Bld) [#/Vol] 1.5 10*3/uL 1.00-4.8 [facility] Lymphocytes/100 WBC Auto (Bl d)Ordered By: Marianela Oliva on 06-26-2022 Lymphocytes/100 WBC (Bld) 35.2 % . [facility] MCH Auto (RBC) [Entitic mass ]Ordered By: Marianela Oliva on 06-26-2022 MCH (RBC) [Entitic mass] 27.3 pg 24.7-34.3 [facility] MCHC Auto (RBC) [Mass/Vol]Or dered By: Marianela Oliva on 06-26-2022 MCHC (RBC) [Mass/Vol] 33.7 g/dL 32.0-35.0 [facility] MCV Auto (RBC) [Entitic vol] Ordered By: Marianela Oliva on 06-26-2022 MCV (RBC) [Entitic vol] 81.1 fL 80-100 [facility] Monocyte %Ordered By: Marianela Oliva on 06-26-2022 Monocyte % 52 mg/dL 35-149 [facility] Comment on above: TRIG ATP III CLASSIF ICATIONTRIG less than 150 mg/dL NormalTRIG 150-199 mg/dL Borderline highTRIG 200-500 mg/dL High TRIG greater than 500 mg/dL Very highStandard traceable to the Center for Disease Conrtrol and Prevention (CDC) test method. Monocytes Auto (Bld) [#/Vol] Ordered By: Marianela Oliva on 06-26-2022 Monocytes (Bld) [#/Vol] 0.5 10*3/uL 0.0-0.8 [facility] Monocytes/100 WBC Auto (Bld) Ordered By: Marianela Oliva on 06-26-2022 Monocytes/100 WBC (Bld) 11.0 % . [facility] Neutrophils Auto (Bld) [#/Vo l]Ordered By: Marianela Oliva on 06-26-2022 Neutrophils (Bld) [#/Vol] 2.1 10*3/uL 1.8-7.7 [facility] Neutrophils/100 WBC Auto (Bl d)Ordered By: Marianela Oliva on 06-26-2022 Neutrophils/100 WBC (Bld) 49.0 % . [facility] No Panel InformationOrdered By: Marianela Oliva on 06-26-2022 Estimated GFR () > 60 mL/Min [facility] Comment on above: GFR estimated refere nce range: According to KDOQI guidelines, <60 ml/min/1.73m2 is sufficient to diagnose a patient with chronic kidney disease. Nicotine Metabolite Negative Cutoff=[address] [facility] Comment on above: Performed at: [address] [id number] Director: George García MD, Phone: [phone] Pharmacy Creatinine Clearance (Chem N/A [facility] Platelet mean volume Auto (B ld) [Entitic vol]Ordered By: Marianela Oliva on 06-26-2022 Platelet mean volume (Bld) [Entitic vol] 9.7 fL 6.3-10.7 [facility] Platelets Auto (Bld) [#/Vol] Ordered By: Marianela Oliva on 06-26-2022 Platelets (Bld) [#/Vol] 191 10*3/uL 150-450 [facility] Protein [Mass/volume] in Ser um or PlasmaOrdered By: Marianela Oliva on 06-26-2022 Protein [Mass/Vol] 6.1 g/dL 6.1-7.9 [facility] RBC Auto (Bld) [#/Vol]Ordere d By: Marianela Oliva on 06-26-2022 RBC (Bld) [#/Vol] 4.80 10*6/uL 3.60-5.[address] [facility] Serum or plasma alanine carvalho otransferase measurement without P-5'-P (enzymatic activiOrdered By: Marianela Oliva on 06-26-2022 ALT No additional P-5'-P [Catalytic activity/Vol] 17 U/L 10-60 [facility] Serum or plasma albumin/glob ulin mass ratioOrdered By: Marianela Oliva on 06-26-2022 Albumin/Globulin [Mass ratio] 1.7 {ratio} [facility] Serum or plasma alkaline rad sphatase measurement (enzymatic activity/volume)Ordered By: Marianela Oliva on 06-26-2022 ALP [Catalytic activity/Vol] 46 U/L 32-92 [facility] Serum or plasma anion gap de terminationOrdered By: Marianela Oliva on 06-26-2022 Anion gap [Moles/Vol] 8.1 mmol/L 6.0-15.0 [facility] Serum or plasma aspartate am inotransferase measurement (enzymatic activity/volume)Ordered By: Marianela Oliva on 06-26-2022 AST [Catalytic activity/Vol] 18 U/L 10-42 [facility] Serum or plasma calcium richy urement (mass/volume)Ordered By: Marianela Oliva on 06-26-2022 Calcium [Mass/Vol] 9.0 mg/dL 8.2-10.2 [facility] Serum or plasma chloride alma surement (moles/volume)Ordered By: Marianela Oliva on 06-26-2022 Chloride [Moles/Vol] 106 mmol/L 95-114 [facility] Serum or plasma high density lipoprotein (HDL) cholesterol measurementOrdered By: Marianela Oliva on 06-26-2022 Cholesterol in HDL [Mass/Vol] 49 mg/dL 35-85 [facility] Comment on above: HDL CHOL ATP-III CLA SSIFICATION Cardiovascular RiskHDL > or equal to 60 mg/dL LOWHDL < 40 mg/dL HIGH Serum or plasma potassium me asurement (moles/volume)Ordered By: Marianela Oliva on 06-26-2022 Potassium [Moles/Vol] 4.1 mmol/L 3.5-5.1 [facility] Serum or plasma sodium measu rement (moles/volume)Ordered By: Marianela Oliva on 06-26-2022 Sodium [Moles/Vol] 137 mmol/L 136-146 [facility] Serum or plasma total biliru bin measurement (mass/volume)Ordered By: Marianela Oliva on 06-26-2022 Bilirubin [Mass/Vol] 0.6 mg/dL 0.3-1.2 [facility] Serum or plasma total carbon dioxide measurement (moles/volume)Ordered By: Marianela Oliva on 06-26-2022 CO2 [Moles/Vol] 27.0 mmol/L 22.0-30.0 [facility] Serum or plasma total choles terol/high density lipoprotein (HDL) cholesterol mass ratOrdered By: Marianela Oliva on 06-26-2022 Cholesterol.total/Chol esterol in HDL [Mass ratio] 3.6 {ratio} <5.0 [facility] Serum or plasma urea nitroge n measurement (mass/volume)Ordered By: Marianela Oliva on 06-26-2022 Urea nitrogen [Mass/Vol] 14 mg/dL 9- [facility] TSH DL <= 0.005 mIU/L QnOrde red By: Marianela Oliva on 06-26-2022 TSH Qn 1.33 m[IU]/L 0.45-5.33 [facility] Dipstick & Microscopicon Dipstick & Microscopic No [employer] Other Urine 10 SGon 01-07-2022 Albumin DL <= 20 mg/L (U) [Mass/Vol] 100 mg/dL [employer] Other Albumin DL <= 20 mg/L (U) [Mass/Vol] Large [employer] Other pH (U) 6.0 [pH] [employer] Other Urine 10 SG Negative [employer] Other Urine 10 SG 1.030 [employer] Other Urine 10 SG Large [employer] Other Urine 10 SG 0.2 [employer] Other Urine 10 SG Positive [employer] Other Urine Cultureon 01-07-2022 Urine Culture >100,000 [employer] Other Urine Culture <16 Susceptible [employer] Other Urine Culture <8 Susceptible [employer] Other Urine Culture <4 Susceptible [employer] Other Urine Culture <2 Susceptible [employer] Other Urine Culture <1 Susceptible [employer] Other Urine Culture <0.5 Susceptible [employer] Other Urine Culture <32 Susceptible [employer] Other Urine Culture <2/38 Susceptible [employer] Other Cult,Urine,CCon 12-24-2018 Cult,Urine,CC Specimen Description .URINE Special Requests .CLEAN CATCH URINE Culture NO GROWTH Report Status FINAL 12/24/2018 Normal [facility] Comment on above: Performed By: #### C PDAU #### [facility] [address] [place] [address] Chlamydia/GC DNA, Uron 12-23 Protein mass conc Negative Normal NEG [facility] Comment on above: Result Comment: NEIS SERIA [...] target. Performed By: #### C PDAU #### [address] [place] [address] Result Comment: CHLA MYDIA TRACHOMATIS DNA not [...] HIV Ag/Abon 12-23-2018 HIV Ag/Ab NONREACTIVE Normal [facility] Comment on above: Result Comment: No l aboratory evidence of HIV infection. If acute HIV infection is suspected, consider testing for HIV-1 RNA. Performed By: #### C PDAU #### [address] [place] [address] Hep C Abon 12-23-2018 Hep C Ab NONREACTIVE Normal NR [facility] Comment on above: Result Comment: The hepatitis [...] PCR. Performed By: #### C PDAU #### [address] [place] [address] Profileon 9 T.pallidum Ab Screen NONREACTIVE Normal NR [facility] Comment on above: Result Comment: T. pallidum antibodies are not detected. There is no serological evidence of infection with T. pallidum (early primary syphilis cannot be excluded). Retest in 2-4 weeks if syphilis is clinically suspect. Performed By: #### C PDAU #### [address] [place] [address] Hep B Surf Ag NONREACTIVE Normal NR [facility] Comment on above: Performed By: #### C PDAU #### [address] [place] [id number] Rubella Ab, IgG 52.3 IU/mL Normal [facility] Comment on above: Result Comment: REFERENCE RANGE: <5.0 NON-REACTIVE (non-immune) 5.0 TO 9.9 EQUIVOCAL >=10.0 REACTIVE (immune) Performed By: #### C PDAU #### [address] [place] [address] Profileon 9 Abs. Basophil <0.03 Normal 0.00-0.20 [facility] Comment on above: Performed By: #### C PDAU #### [address] [place] [address] Abs.Imm.Granulocyte 0.04 k/uL Normal 0.00-0.30 [facility] Comment on above: Performed By: #### C PDAU #### [address] [place] [address] Abs.Neutrophil (Seg) 4.44 k/uL Normal 1.50-8.10 [facility] Comment on above: Performed By: #### C PDAU #### [address] [place] [id number] Basophils/100 WBC (Bld) 0 % Normal 0-2 [facility] Comment on above: Performed By: #### C PDAU #### [address] [place] [address] Eosinophils #/vol (Bld) 0.08 10*3/uL Normal 0.00-0.44 [facility] Comment on above: Performed By: #### C PDAU #### [address] [place] [address] Eosinophils/100 WBC (Bld) 1 % Normal 1-4 [facility] Comment on above: Performed By: #### C PDAU #### [address] [place] [address] Erythrocyte distribution width Ratio (RBC) 13.2 % Normal 11.8-14.4 [facility] Comment on above: Performed By: #### C PDAU #### [address] [place] [address] Hematocrit Volume Fraction (Bld) 35.3 % Low 36.3-47.1 [facility] Comment on above: Performed By: #### C PDAU #### [address] [place], [facility] Hemoglobin mass conc (Bld) 11.4 g/dL Low 11.9-15.1 [facility] Comment on above: Performed By: #### C PDAU #### [address] [place] [address] Immature granulocytes #/vol (Bld) 1 % High 0 [facility] Comment on above: Performed By: #### C PDAU #### [address] [place] [address] Lymphocytes #/vol (Bld) 1.70 10*3/uL Normal 1.10-3.70 [facility] Comment on above: Performed By: #### C PDAU #### [address] [place] [address] Lymphocytes/100 WBC (Bld) 25 % Normal 24-43 [facility] Comment on above: Performed By: #### C PDAU #### [address] [place] [address] MCH Entitic mass (RBC) 26.5 pg Normal 25.2-33.5 [place] Comment on above: Performed By: #### C PDAU #### [address] [place] [address] MCHC mass conc (RBC) 32.3 g/dL Normal 28.4-34.8 [facility] Comment on above: Performed By: #### C PDAU #### [address] [place] [address] MCV Entitic volume (RBC) 82.1 fL Low 82.6-102.9 [facility] Comment on above: Performed By: #### C PDAU #### [address] [place] [address] Monocytes #/vol (Bld) 0.66 10*3/uL Normal 0.10-1.20 [facility] Comment on above: Performed By: #### C PDAU #### [address] [place] [address] Monocytes/100 WBC (Bld) 10 % Normal 3-12 [facility] Comment on above: Performed By: #### C PDAU #### [address] [place] [address] Neutrophil (Seg) 63 % Normal 36-65 [facility] Comment on above: Performed By: #### C PDAU #### [address] [place] [address] NRBC Automated 0.0 per 100 WBC Normal 0.0 [facility] Comment on above: Performed By: #### C PDAU #### [address] [place] [address] Platelet mean volume Entitic volume (Bld) 10.8 fL Normal 8.1-13.5 [facility] Comment on above: Performed By: #### C PDAU #### [address] [place] [address] Platelets #/vol (Bld) 298 10*3/uL Normal 138-[address] [facility] Comment on above: Performed By: #### C PDAU #### [address] [place] [address] RBC #/vol (Bld) 4.30 10*6/uL Normal 3.95-5.11 [facility] Comment on above: Performed By: #### C PDAU #### [address] [place] [address] WBC #/vol (Bld) 6.9 10*3/uL Normal 3.5-11.3 [facility] Comment on above: Performed By: #### C PDAU #### [address] [place] [address] Auto Diff Performed NOT REPORTED Normal [facility] Comment on above: Performed By: #### C PDAU #### [address] [place] [address] Platelets #/vol (Bld) NOT REPORTED Normal [facility] Comment on above: Performed By: #### C PDAU #### [address] [place] [address] RBC morphology finding Nom (Bld) NOT REPORTED Normal [facility] Comment on above: Performed By: #### C PDAU #### [address] [place] [address] WBC Morphology NOT REPORTED Normal [facility] Comment on above: Performed By: #### C PDAU #### [address] [place] [address] Type + Scrnon 12-22 Type + Scrn Negative Normal [facility] Comment on above: Performed By: #### C PDAU #### [address] [place] [address] Toxicology Scree, Urineon Amphetamine(s),Ur Negative Normal [facility] Comment on above: Performed By: #### C PDAU #### [address] [place] [address] Barbiturate(s),Ur Negative Normal NEG [facility] Comment on above: Performed By: #### C PDAU #### [address] [place] [address] Benzodiazepine(s) Negative Normal [facility] Comment on above: Performed By: #### C PDAU #### [address] [place] [address] Buprenorphrine, Ur Negative Normal [facility] Comment on above: Performed By: #### C PDAU #### [address] [place] [address] Cannabinoid(s),Ur Negative Normal [facility] Comment on above: Performed By: #### C PDAU #### [address] [place] [address] Cocaine Metabolite Negative Normal [facility] Comment on above: Performed By: #### C PDAU #### [address] [place] [address] Methadone Ql (U) Negative Normal [facility] Comment on above: Performed By: #### C PDAU #### [address] [place] [address] Methamphetamine, Ur Negative Normal [facility] Comment on above: Performed By: #### C PDAU #### [address] [place] [address] Opiate(s), Ur Negative Normal NEG [facility] Comment on above: Performed By: #### C PDAU #### [address] [place] [address] Oxycodone, Urine Negative Normal NEG [facility] Comment on above: Performed By: #### C PDAU #### [address] [place] [address] Phencyclidine, Ur Negative Normal NEG [facility] Comment on above: Performed By: #### C PDAU #### [address] [place] [address] Protein mass conc (U) Negative Normal NEG [facility] Comment on above: Performed By: #### C PDAU #### [address] [place] [address] Tricyclic antidepressants Screen Ql (U) Negative Normal NEG [facility] Comment on above: Result Comment: Drug screen results are to be used for medical purposes only. All positive results are unconfirmed. Testing for employment or legal uses should be sent to a reference laboratory for confirmation. Performed By: #### C PDAU #### [address] [place] [address] Interpretive Info NOT REPORTED Normal [facility] Comment on above: Performed By: #### C PDAU #### [address] [place] [address] MDMA, Urine NOT REPORTED Normal NEG [facility] Comment on above: Performed By: #### C PDAU #### [address] [place] [address] Coding Summary.on 12-11-2018 Coding Summary. CODING DATE: 019 FINAL [facility] STATUS: Home (Routine DC) PAYOR: Commercial [...] CphT Date Saved: 12/11/2018 09:36 am Normal [facility] 1st Trimesteron 12-09-2018 1st Trimester Exam Date/Time: [...] Transvaginal Ultrasound Performed Size = Dates Normal [facility] US Transvaginalon 12-09-2018 US Transvaginal Exam Date/Time: 12/09/2018 15:15 EST Reason for Exam: nausea hx of molar Report Please refer to ultrasound transabdominal first trimester report. FINAL REPORT Dictated: 12/09/2018 3:50 pm Aurelia Mullen MD Signed (Electronic Signature): 12/09/2018 3:50 pm Signed by: Aurelia Mullen MD Transcribed by: DARWIN Technologist: ADARSH Normal [facility] Progress Noteon 03-24-2018 HIM IP Note OR Bottle Selector Normal [facility] HCG, Quanton 03-22-2018 HCG, Quant 64 IU/L High <5 [facility] Comment on above: Result Comment: Non-preg premeno <=5 Postmeno <=8 Male <=3 If HCG results do not concur with clinical observations, additional testing to confirm result is recommended. This test is not labeled for use as a tumor marker. Performed at [address] [place] [address] ([phone] Performed By: #### C PDAU #### [address] [place] [address] HCG, Quanton 03-15-2018 HCG, Quant 613 IU/L High <5 [facility] Comment on above: Result Comment: Non-preg premeno <=5 Postmeno <=8 Male <=3 If HCG results do not concur with clinical observations, additional testing to confirm result is recommended. This test is not labeled for use as a tumor marker. Performed at [address] [place] [address] ([phone] Performed By: #### C PDAU #### [address] [place] [address] OPERATIVE REPORTon 8 OPERATIVE REPORT [address] [place] [address] OPERATIVE REPORT PATIENT NAME: NORIS GOETZ : 1990 MED REC NO: [id number] ROOM: ACCOUNT NO: [id number] ADMIT DATE: 03/09/2018 PROVIDER: Chau Sorenson DATE [...] be correct. Of note, she will receive [place]on 5/325 for any postoperative cramping, and I have ordered an hCG to be repeated in approximately one week. CHAU SORENSON [id number] Doc#: [id number] CC: Marianlea Oliva Normal [facility] Surgical Pathologyon 018 Surgical Pathology (NOTE) [id number] [facility] ANATOMIC PATHOLOGY [address] [place] [id number] SURGICAL PATHOLOGY CONSULTATION Patient Name: NORIS GOETZ [facility] Rec: [id number] Path Number: [id number] Collected: 03/09/2018 Received: 03/10/2018 Reported: 03/11/2018 14:53 [...] grossly identified. Cystic structures are not evident. [employer]ic sections are submitted between sponges in A-H. tm Microscopic Description Most of the submitted tissue consists of blood clot and decidua with foci of necrosis and acute inflammation. Portions of endometrium show gestational change. There are rare immature, small avascular placental villi and a few associated syncytiotrophoblasts. Histologic changes to suggest gestational trophoblastic disease are absent. Normal [facility] Progress Noteon 03-08-2018 HIM IP Note OR Bottle Selector Normal [facility] Chlamydia/GC DNA, Uron 03-07 Protein mass conc Negative Normal NEG [facility] Comment on above: Result Comment: NEIS SERIA GONORRHOEAE DNA not detected by nucleic acid amplification. Performed at [address] [id number] ([phone] Performed By: #### U CGP #### [address] [id number] Result Comment: CHLA MYDIA TRACHOMATIS DNA not detected by nucleic acid amplification. HCG, Quanton 03-07-2018 HCG, Quant 34291 IU/L High <5 [facility] Comment on above: Result Comment: Non-preg premeno <=5 Postmeno <=8 Male <=3 If HCG results do not concur with clinical observations, additional testing to confirm result is recommended. This test is not labeled for use as a tumor marker. Performed at [address] [place] [address] Performed By: #### B HCG #### [address] [place] [address] RHIG, Transfuseon 03-07-2018 RHIG, Transfuse Unit Number [id number] Blood Component Type RHIG Unit Division 00 Status of Unit TRANSFUSED Transfusion Status OK TO TRANSFUSE Performed at [address] [place] [address] Normal [facility] Comment on above: Performed By: #### T RHIG #### [address] [place] [address] Cult,Urine,CCon 03-05-2018 Cult,Urine,CC Specimen Description .URINE Performed at [address] [place] [address] Special Requests CCMS Performed at [address] [place] [address] Culture NO SIGNIFICANT GROWTH Performed at [address] [id number] ([phone] Report Status FINAL 03/04/2018 Normal [facility] Comment on above: Performed By: #### C INNA #### [address] [place] [id number] HIV Ag/Abon 03-04-2018 HIV Ag/Ab NONREACTIVE Normal NR [facility] Comment on above: Result Comment: No l aboratory evidence of HIV infection. If acute HIV infection is suspected, consider testing for HIV-1 RNA. Performed at [address] [address] Performed By: #### H IVCMB #### [address] [address] Hep C Abon 03-04-2018 Hep C Ab NONREACTIVE Normal NR [facility] Comment on above: Result Comment: The hepatitis [...] ordering HCV RNA by PCR. Performed at [address] [address] Performed By: #### A HCV #### [address] [address] Profileon 8 T.pallidum Ab Screen NONREACTIVE Normal [facility] Comment on above: Result Comment: T. pallidum antibodies are not detected. There is no serological evidence of infection with T. pallidum (early primary syphilis cannot be excluded). Retest in 2-4 weeks if syphilis is clinically suspect. Performed at [address] [address] Performed By: #### P RENAT #### [address] [address] Hep B Surf Ag NONREACTIVE Normal [facility] Comment on above: Performed By: #### P RENAT #### [address] [address] Rubella Ab, IgG 65.7 IU/mL Normal [facility] Comment on above: Result Comment: REFERENCE RANGE: <5.0 NON-REACTIVE (non-immune) 5.0 TO 9.9 EQUIVOCAL >=10.0 REACTIVE (immune) Performed By: #### P RENAT #### [facility] [address] [facility] [address] Toxicology Scree, Urineon Amphetamine(s),Ur Negative Normal NEG [facility] Comment on above: Performed By: #### C PDAU #### [address] [place] [address] Barbiturate(s),Ur Negative Normal NEG [facility] Comment on above: Performed By: #### C PDAU #### [address] [place] [address] Benzodiazepine(s) Negative Normal NEG [facility] Comment on above: Performed By: #### C PDAU #### [address] [place] [address] Buprenorphrine, Ur Negative Normal [facility] Comment on above: Result Comment: Perf ormed at [address] [place] [address] Performed By: #### C PDAU #### [address] [place] [address] Cannabinoid(s),Ur Negative Normal [facility] Comment on above: Performed By: #### C PDAU #### [address] [place] [address] Cocaine Metabolite Negative Normal [facility] Comment on above: Performed By: #### C PDAU #### [address] [place] [address] Methadone Ql (U) Negative Normal NEG [facility] Comment on above: Performed By: #### C PDAU #### [address] [place] [address] Methamphetamine, Ur Negative Normal [facility] Comment on above: Performed By: #### C PDAU #### [address] [place] [address] Opiate(s), Ur Negative Normal NEG [facility] Comment on above: Performed By: #### C PDAU #### [address] [place] [address] Oxycodone, Urine Negative Normal NEG [facility] Comment on above: Performed By: #### C PDAU #### [address] [place] [address] Phencyclidine, Ur Negative Normal NEG [facility] Comment on above: Performed By: #### C PDAU #### [address] [place] [address] Protein mass conc (U) Negative Normal NEG [facility] Comment on above: Performed By: #### C PDAU #### [address] [place] [address] Tricyclic antidepressants Screen Ql (U) Negative Normal NEG [facility] Comment on above: Result Comment: Drug screen results are to be used for medical purposes only. All positive results are unconfirmed. Testing for employment or legal uses should be sent to a reference laboratory for confirmation. Performed By: #### C PDAU #### [address] [place] [address] Profileon 8 Abs. Basophil 0.05 k/uL Normal 0.00-0.20 [facility] Comment on above: Performed By: #### P RENAT #### [employer] [facility] [address] [place] [address] Abs.Imm.Granulocyte 0.04 k/uL Normal 0.00-0.30 [facility] Comment on above: Performed By: #### P RENAT #### [facility] [address] [place] [address] Abs.Neutrophil (Seg) 5.60 k/uL Normal 1.50-8.10 [facility] Comment on above: Performed By: #### P RENAT #### [address] [address] Basophils/100 WBC (Bld) 1 % Normal 0-2 [facility] Comment on above: Performed By: #### P RENAT #### [address] [address] Eosinophils #/vol (Bld) 0.18 10*3/uL Normal 0.00-0.44 [facility] Comment on above: Performed By: #### P RENAT #### [address] [address] Eosinophils/100 WBC (Bld) 2 % Normal 1-4 [facility] Comment on above: Performed By: #### P RENAT #### [address] [address] Erythrocyte distribution width Ratio (RBC) 13.0 % Normal 11.8-14.4 [facility] Comment on above: Performed By: #### P RENAT #### [address] [address] Hematocrit Volume Fraction (Bld) 39.1 % Normal 36.3-47.1 [facility] Comment on above: Performed By: #### P RENAT #### [address] [address] Hemoglobin mass conc (Bld) 12.6 g/dL Normal 11.9-15.1 [facility] Comment on above: Performed By: #### P RENAT #### [address] [address] Immature granulocytes #/vol (Bld) 1 % High 0 [facility] Comment on above: Performed By: #### P RENAT #### [address] [address] Lymphocytes #/vol (Bld) 2.18 10*3/uL Normal 1.10-3.70 [facility] Comment on above: Performed By: #### P RENAT #### [address] [address] Lymphocytes/100 WBC (Bld) 25 % Normal 24-43 [facility] Comment on above: Performed By: #### P RENAT #### [address] [address] MCH Entitic mass (RBC) 26.9 pg Normal 25.2-33.5 [place] Comment on above: Performed By: #### P RENAT #### [address] [address] MCHC mass conc (RBC) 32.2 g/dL Normal 28.4-34.8 [facility] Comment on above: Performed By: #### P RENAT #### [address] [address] MCV Entitic volume (RBC) 83.4 fL Normal 82.6-102.9 [facility] Comment on above: Performed By: #### P RENAT #### [address] [address] Monocytes #/vol (Bld) 0.79 10*3/uL Normal 0.10-1.20 [facility] Comment on above: Performed By: #### P RENAT #### [address] [address] Monocytes/100 WBC (Bld) 9 % Normal 3-12 [facility] Comment on above: Performed By: #### P RENAT #### [address] [address] Neutrophil (Seg) 62 % Normal 36-65 [facility] Comment on above: Performed By: #### P RENAT #### [address] [address] NRBC Automated 0.0 per 100 WBC Normal 0.0 [facility] Comment on above: Performed By: #### P RENAT #### [address] [address] Platelet mean volume Entitic volume (Bld) 11.2 fL Normal 8.1-13.5 [facility] Comment on above: Performed By: #### P RENAT #### [address] [address] Platelets #/vol (Bld) 243 10*3/uL Normal 138-[address] [facility] Comment on above: Performed By: #### P RENAT #### [address] [address] RBC #/vol (Bld) 4.69 10*6/uL Normal 3.95-5.11 [facility] Comment on above: Performed By: #### P RENAT #### [address] [address] WBC #/vol (Bld) 8.8 10*3/uL Normal 3.5-11.3 [facility] Comment on above: Performed By: #### P RENAT #### [address] [address] Auto Diff Performed NOT REPORTED Normal [facility] Comment on above: Performed By: #### P RENAT #### [address] [address] Platelets #/vol (Bld) NOT REPORTED Normal [facility] Comment on above: Performed By: #### P RENAT #### [address] [address] RBC morphology finding Nom (Bld) NOT REPORTED Normal [facility] Comment on above: Performed By: #### P RENAT #### [address] [id number] WBC Morphology NOT REPORTED Normal [facility] Comment on above: Performed By: #### P RENAT #### [facility] [address] [place] [address] Type + Scrnon 03-03 Type + Scrn ABO/Rh(D) B NEGATIV E Antibody Screen NEGATIVE Performed at [address] [address] [phone] Normal [facility] Comment on above: Performed By: #### P RTYS #### [address] [place] [address] Progress Noteon 03-03-2018 HIM IP Note OR Bottle Selector Normal [facility] Toxicology Scree, Urineon Interpretive Info NOT REPORTED Normal [facility] Comment on above: Performed By: #### C PDAU #### [address] [place] [address] MDMA, Urine NOT REPORTED Normal NEG [facility] Comment on above: Performed By: #### C PDAU #### [address] [place] [address] Hep Bs Abon 01-22-2018 HBV surface Ab Ql (S) Reactive Fis [facility] Comment on above: Result Comment: Non Reactive: Inconsistent with immunity, less than 10 mIU/mL Reactive: Consistent with immunity, greater than 9.9 mIU/mL Performed at: [facility] [address] [place], [place] [id number] PhD Sumeet Merrill Performed By: #### 2 [id number], [id number] #### [facility] [address] [place] [address] Varic IgGon 01-22-2018 VZV IgG IA Qn (S) 574 Immune >165 [facility] Comment on above: Result Comment: Nega tive <135 Equivocal 135 - 165 Positive >165 A positive result generally indicates exposure to the pathogen or administration of specific immunoglobulins, but it is not indication of active infection or stage of disease. Performed at: [facility] [address] [place], [place] [id number] PhD Sumeet Merrill Performed By: #### 2 [id number], [id number] #### [facility] [address] [place] [address] Progress Noteon 11-18-2017 HIM IP Note OR Bottle Selector Normal [facility] Vital Signs Date Time Vital Sign Value Performing Clinician Facility 06-21-2025 09:54-0400 Body mass index (BMI) [Ratio] 35.12 kg/m2 Yasmani Kaylen DO Work Phone: [facility] 06-21-2025 09:54-0400 Body weight 104.78 kg Yasmani Kaylen DO Work Phone: [facility] 06-21-2025 09:54-0400 Diastolic blood pressure 72 mm[Hg] Yasmani Kaylen DO Work Phone: [facility] 06-21-2025 09:54-0400 Systolic blood pressure 124 mm[Hg] Yasmani Kaylen DO Work Phone: [facility] 06-12-2025 08:32-0400 Body height 170.18 cm Marianela Oliva MD Work Phone: [facility] 06-12-2025 08:32-0400 Body mass index (BMI) [Ratio] 36.1 kg/m2 Marianela Oliva MD Work Phone: [facility] 06-12-2025 08:32-0400 Body weight 104.77 kg Marianela Oliva MD Work Phone: [facility] 06-12-2025 08:32-0400 Diastolic blood pressure 81 mm[Hg] Marianela Oliva MD Work Phone: [facility] 06-12-2025 08:32-0400 Heart rate 88 /min Marianela Oliva MD Work Phone: [facility] 06-12-2025 08:32-0400 Respiratory rate 12 /min Marianela Oliva MD Work Phone: [facility] 06-12-2025 08:32-0400 SaO2% (BldA) [Mass fraction] 97 % Marianela Oliva MD Work Phone: [facility] 06-12-2025 08:32-0400 Systolic blood pressure 119 mm[Hg] Marianela Oliva MD Work Phone: [facility] 06-07-2025 10:26-0400 Body mass index (BMI) [Ratio] 35.14 kg/m2 Yasmani Kaylen DO Work Phone: [facility] 06-07-2025 10:26-0400 Body weight 104.83 kg Yasmani Kaylen DO Work Phone: [facility] 06-07-2025 10:26-0400 Diastolic blood pressure 70 mm[Hg] Yasmani Kaylen DO Work Phone: [facility] 06-07-2025 10:26-0400 Systolic blood pressure 112 mm[Hg] Yasmani Kaylen DO Work Phone: [facility] 05-22-2025 11:13-0400 Body mass index (BMI) [Ratio] 34.64 kg/m2 Yasmani Kaylen DO Work Phone: [facility] 05-22-2025 11:13-0400 Body weight 103.33 kg Yasmani Kaylen DO Work Phone: [facility] 05-22-2025 11:13-0400 Diastolic blood pressure 72 mm[Hg] Yasmani Kaylen DO Work Phone: [facility] 05-22-2025 11:13-0400 Systolic blood pressure 110 mm[Hg] Yasmani Kaylen DO Work Phone: [facility] 05-10-2025 08:31-0400 Body mass index (BMI) [Ratio] 34.25 kg/m2 Yasmani Kaylen DO Work Phone: [facility] 05-10-2025 08:31-0400 Body weight 102.17 kg Yasmani Kaylen DO Work Phone: [facility] 05-10-2025 08:31-0400 Diastolic blood pressure 78 mm[Hg] Yasmani Kaylen DO Work Phone: [facility] 05-10-2025 08:31-0400 Systolic blood pressure 124 mm[Hg] Yasmani Kaylen DO Work Phone: [facility] 04-10-2025 10:38-0400 Body mass index (BMI) [Ratio] 33.88 kg/m2 Yasmani Kaylen DO Work Phone: [facility] 04-10-2025 10:38-0400 Body weight 101.06 kg Yasmani Kaylen DO Work Phone: [facility] 04-10-2025 10:38-0400 Diastolic blood pressure 68 mm[Hg] Yasmani Kaylen DO Work Phone: [facility] 04-10-2025 10:38-0400 Systolic blood pressure 108 mm[Hg] Yasmani Kaylen DO Work Phone: [facility] 03-15-2025 10:00-0400 Body mass index (BMI) [Ratio] 33.27 kg/m2 Yasmani Kaylen DO Work Phone: [facility] 03-15-2025 10:00-0400 Body weight 99.25 kg Yasmani Kaylen DO Work Phone: [facility] 03-15-2025 10:00-0400 Diastolic blood pressure 70 mm[Hg] Yasmani Kaylen DO Work Phone: [facility] 03-15-2025 10:00-0400 Systolic blood pressure 110 mm[Hg] Yasmani Kaylen DO Work Phone: [facility] 02-15-2025 09:37-0400 Body mass index (BMI) [Ratio] 32.96 kg/m2 Yasmani Kaylen DO Work Phone: [facility] 02-15-2025 09:37-0400 Body weight 98.34 kg Yasmani Kaylen DO Work Phone: [facility] 02-15-2025 09:37-0400 Diastolic blood pressure 70 mm[Hg] Yasmani Kaylen DO Work Phone: [facility] 02-15-2025 09:37-0400 Systolic blood pressure 110 mm[Hg] Yasmani Kaylen DO Work Phone: [facility] 01-18-2025 09:45-0400 Body mass index (BMI) [Ratio] 32.1 kg/m2 Yasmani Kaylen DO Work Phone: [facility] 01-18-2025 09:45-0400 Body weight 95.77 kg Yasmani Kaylen DO Work Phone: [facility] 01-18-2025 09:45-0400 Diastolic blood pressure 80 mm[Hg] Yasmani Kaylen DO Work Phone: [facility] 01-18-2025 09:45-0400 Systolic blood pressure 100 mm[Hg] Yasmani Kaylen DO Work Phone: [facility] 12-06-2024 09:47-0500 Heart rate 75 /min Marianela Oliva MD Work Phone: [facility] 12-06-2024 09:47-0500 Respiratory rate 16 /min Marianela Oliva MD Work Phone: [facility] 12-06-2024 07:53-0500 Body height 170.18 cm Marianela Oliva MD Work Phone: [facility] 12-06-2024 07:53-0500 Body temperature 98.2 [degF] Marianela Oliva MD Work Phone: [facility] 12-06-2024 07:53-0500 Body weight 90.71 kg Marianela Oliva MD Work Phone: [facility] 12-06-2024 07:53-0500 Diastolic blood pressure 60 mm[Hg] Marianela Oliva MD Work Phone: [facility] 12-06-2024 07:53-0500 SaO2% (BldA) [Mass fraction] 99 % Marianela Oliva MD Work Phone: [facility] 12-06-2024 07:53-0500 Systolic blood pressure 121 mm[Hg] Marianela Oliva MD Work Phone: [facility] 08-15-2024 09:05-0400 Body height 172.72 cm MD Marianela Oliva Work Phone: [facility] 08-15-2024 09:05-0400 Body mass index (BMI) [Ratio] 32.1 kg/m2 MD Marianela Oliva Work Phone: [facility] 08-15-2024 09:05-0400 Body weight 95.7 kg MD Marianela Oliva Work Phone: [facility] 08-15-2024 09:05-0400 Diastolic blood pressure 85 mm[Hg] MD Marianela Oliva Work Phone: [facility] 08-15-2024 09:05-0400 Heart rate 80 /min MD Marianela Oliva Work Phone: [facility] 08-15-2024 09:05-0400 Systolic blood pressure 125 mm[Hg] MD Marianela Oliva Work Phone: [facility] 08-11-2024 09:14-0400 Body height 172.72 cm MD Marianela Oliva Work Phone: [facility] 08-11-2024 09:14-0400 Body mass index (BMI) [Ratio] 31.9 kg/m2 MD Marianela Oliva Work Phone: [facility] 08-11-2024 09:14-0400 Body temperature 97.8 [degF] MD Marianela Oliva Work Phone: [facility] 08-11-2024 09:14-0400 Body weight 95.25 kg MD Marianela Oliva Work Phone: [facility] 08-11-2024 09:14-0400 Diastolic blood pressure 72 mm[Hg] MD Marianela Oliva Work Phone: [facility] 08-11-2024 09:14-0400 Heart rate 99 /min MD Marianela Oliva Work Phone: [facility] 08-11-2024 09:14-0400 Respiratory rate 18 /min MD Marianela Oliva Work Phone: [facility] 08-11-2024 09:14-0400 SaO2% (BldA) [Mass fraction] 96 % MD Marianela Oliva Work Phone: [facility] 08-11-2024 09:14-0400 Systolic blood pressure 106 mm[Hg] MD Marianela Oliva Work Phone: [facility] 05-18-2024 10:41-0400 Body height 173.99 cm MD Marianela Oliva Work Phone: [facility] 05-18-2024 10:41-0400 Body mass index (BMI) [Ratio] 32.2 kg/m2 MD Marianela Oliva Work Phone: [facility] 05-18-2024 10:41-0400 Body weight 97.52 kg MD Marianela Oliva Work Phone: [facility] 05-18-2024 10:41-0400 Diastolic blood pressure 82 mm[Hg] MD Marianela Oliva Work Phone: [facility] 05-18-2024 10:41-0400 Heart rate 72 /min MD Marinaela Oliva Work Phone: [facility] 05-18-2024 10:41-0400 Systolic blood pressure 117 mm[Hg] MD Marianela Oliva Work Phone: [facility] 01-07-2022 12:45-0400 Body height 170.18 cm Regina Missler Other [employer] Other 01-07-2022 12:45-0400 Body temperature 98.9 [degF] Regina Missler Other [employer] Other 01-07-2022 12:45-0400 Diastolic blood pressure 81 mm[Hg] Regina Huddleston Other [employer] Other 01-07-2022 12:45-0400 Respiratory rate 18 /min Regina Huddleston Other [employer] Other 01-07-2022 12:45-0400 SaO2% (BldA) [Mass fraction] Regina Huddleston Other [employer] Other 01-07-2022 12:45-0400 Systolic blood pressure 121 mm[Hg] Regina Marieler Other [employer] Other Encounters Encounter Date Encounter Type Care [...] Comment on above: Third trimester preg lisa ([facility]); 34 weeks gestation of ([facility]); Multigravida of advanced maternal age in third trimester ([facility]) Start: 06-21-2025 End: 06-21-2025 ambulatory YASMANI KAYLEN Not Available Start: 06-19-2025 End: 06-19-2025 Clinisync Result Encounter Yasmani Kaylen DO Work Phone: [facility] External Department Unsolicited Start: 06-19-2025 End: 06-19-2025 Clinisync Result Encounter Yasmani Kaylen DO Work Phone: [facility] External Department Unsolicited Start: 06-12-2025 End: 06-12-2025 ambulatory Marianela Oliva MD Work Phone: [facility] Work Phone: Start: 06-12-2025 End: 06-12-2025 Patient encounter procedure Marianela Oliva MD -[facility] Work Phone: Start: 06-07-2025 End: 06-07-2025 Bamboo flowsheet Yasmani Kaylen DO Work Phone: [facility] Start: 06-07-2025 End: 06-07-2025 Bamboo flowsheet Yasmani Kaylen DO Work Phone: [facility] Start: 06-07-2025 End: 06-07-2025 flow sheet Yasmani Kaylen DO Work Phone: [facility] Comment on above: Third trimester preg lisa ([facility]); 32 weeks gestation of ([facility]); Multigravida of advanced maternal age in third trimester ([facility]) Start: 06-07-2025 End: 06-07-2025 ambulatory YASMANI KAYLEN Not Available Start: 05-22-2025 End: 05-22-2025 flow sheet Yasmani Kaylen DO Work Phone: [facility] Comment on above: 30 weeks gestation o f ([facility]); Third trimester ([facility]); Antepartum multigravida of advanced maternal age ([facility]); Gestational diabetes mellitus (GDM), antepartum, gestational diabetes method of control unspecified ([facility]) Start: 05-22-2025 End: 05-22-2025 ambulatory YASMANI KAYLEN Not Available Start: 05-10-2025 End: 05-10-2025 Bamboo flowsheet Yasmani Kaylen DO Work Phone: [facility] Start: 05-10-2025 End: 05-10-2025 Bamboo flowsheet Yasmani Kaylen DO Work Phone: [facility] Start: 05-10-2025 End: 05-10-2025 flow sheet Yasmani Kaylen DO Work Phone: [facility] Comment on above: size consisten t with dates, antepartum ([facility]) (Primary Dx); Third trimester ([facility]); 28 weeks gestation of ([facility]); Antepartum multigravida of advanced maternal age ([facility]) Start: 05-10-2025 End: 05-10-2025 ambulatory YASMANI KAYLEN Not Available Start: 04-10-2025 End: 04-10-2025 Bamboo flowsheet Yasmani Kaylen DO Work Phone: [facility] Start: 04-10-2025 End: 04-10-2025 Bamboo flowsheet Yasmani Kayeln DO Work Phone: [facility] Start: 04-10-2025 End: 04-10-2025 flow sheet Yasmani Kaylen DO Work Phone: [facility] Comment on above: Second trimester pre gnancy ([facility]); 24 weeks gestation of ([facility]); Diabetes mellitus screening Start: 04-10-2025 End: 04-10-2025 ambulatory YASMANI KAYLEN Not Available Start: 04-02-2025 End: 04-02-2025 Departed Referred Mario Valle DO -[facility] Start: 04-02-2025 End: 04-02-2025 ambulatory Mario Perez - [facility] Facility:[facility] Start: 03-15-2025 End: 03-15-2025 flow sheet Yasmani [...] encounter procedure Marianela Oliva MD Work Phone: [facility] Start: 03-14-2025 End: 03-14-2025 ambulatory Marianela Oliva MD Work Phone: [facility] Work Phone: Start: 02-15-2025 End: [...] / Non-visit Marianela Oliva MD Work Phone: [facility] Work Phone: Start: 02-15-2025 End: 02-15-2025 Patient encounter procedure Yasmani Kaylen DO Work Phone: [facility] Work Phone: Start: 02-15-2025 End: 02-15-2025 Periodic preventive med est patient 18-39 yrs Yasmani Kaylen DO Work Phone: [facility] Comment on above: Well woman exam with routine gynecological exam; Vaginal discharge; Exposure to STD; 16 weeks gestation of ; Second trimester ; Screening, , for anatomic survey; Sterilization consult; Glucose found in urine on examination Start: 02-15-2025 End: 02-15-2025 ambulatory YASMANI KAYLEN Not Available Start: 01-18-2025 End: 01-18-2025 Bamboo flowsheet Yasmani Kaylen DO Work Phone: [facility] Start: 01-18-2025 End: 01-18-2025 Bamboo flowsheet Yasmani Kaylen DO Work Phone: [facility] Start: 01-18-2025 End: 01-18-2025 flow sheet Yasmani Kaylen DO Work Phone: [facility] Comment on above: First trimester preg lisa; 12 weeks gestation of ; Antepartum multigravida of advanced maternal age Start: 01-18-2025 End: 01-18-2025 ambulatory YASMANI KAYLEN Not Available Start: 12-27-2024 End: 12-27-2024 Patient encounter procedure Marianela Oliva MD Work Phone: [facility] Start: 12-27-2024 End: 12-27-2024 ambulatory Marianela Oliva MD Work Phone: [facility] Work Phone: Start: 12-21-2024 End: 12-21-2024 ambulatory YASMANI KAYLEN Not Available Start: 12-07-2024 Non-patient / Non-visit Marianela Oliva MD Work Phone: [facility] Work Phone: Start: 12-06-2024 End: 12-06-2024 Emergency department patient visit Marianela Oliva MD Work Phone: [facility] Work Phone: Start: 12-05-2024 End: 12-05-2024 Telephone encounter Yasmani Abdullahi DO Work Phone: [facility] Start: 08-15-2024 Patient encounter status Pooja Oliva MD Work Phone: [facility] Start: 08-15-2024 End: 08-15-2024 ambulatory MD Marianela Oliva Work Phone: [facility] Work Phone: Start: 08-15-2024 End: 08-15-2024 Patient encounter procedure MD Marianela Oliva Work Phone: [facility] Work Phone: Start: 08-11-2024 End: 08-11-2024 ambulatory MD Marianela Oliva Work Phone: [facility] Work Phone: Start: 08-11-2024 End: 08-11-2024 Patient encounter procedure MD Marianela Oliva Work Phone: [facility] Work Phone: Start: 08-01-2024 End: 08-01-2024 ambulatory MD Marianela Oliva Work Phone: [facility] Work Phone: Start: 08-01-2024 End: 08-01-2024 Departed Referred MD Marianela Oliva Work Phone: [facility] [place] Work Phone: Start: 05-23-2024 End: 05-23-2024 Patient encounter procedure MD Marianela Oliva Work Phone: [facility] [place] Work Phone: Start: 05-23-2024 End: 05-23-2024 ambulatory MD Marianela Oliva Work Phone: [facility] Work Phone: Start: 05-18-2024 End: 05-18-2024 ambulatory MD Marianela Oliva Work Phone: [facility] Work Phone: Start: 05-18-2024 End: 05-18-2024 Patient encounter procedure MD Marianela Oliva Work Phone: [facility] Work Phone: Start: 05-17-2024 End: 05-17-2024 Departed Referred MD Marianela Oliva Work Phone: [facility] Start: 05-17-2024 End: 05-17-2024 ambulatory MD Marianela Oliva Work Phone: [facility] Work Phone: Start: 07-12-2023 End: 07-12-2023 ambulatory MD Marianela Oliva Work Phone: [facility] Work Phone: Start: 07-12-2023 End: 07-12-2023 Departed Referred MD Marianela Oliva Work Phone: [facility] Benefit Screening Start: 02-23-2023 End: 02-23-2023 ambulatory MD Marianela Oliva Work Phone: [facility] Work Phone: Start: 02-23-2023 End: 02-23-2023 Patient encounter procedure MD Marianela Oliva Work Phone: [facility] Work Phone: Start: 02-04-2023 End: 02-04-2023 ambulatory Marianela Oliva Other [employer] Other Start: 02-04-2023 Office outpatient vi sit 15 minutes Marianela Oliva [facility] Start: 02-04-2023 Telephone encounter Marianela Oliva [facility] Start: 01-29-2023 End: 01-29-2023 ambulatory Marianela Oliva Other [employer] Other Start: 01-29-2023 Telephone encounter Marianela Oliva [facility] Start: 12-15-2022 End: 12-15-2022 Departed Referred MD Marianela Oliva Work Phone: [facility] [place] Work Phone: Start: 12-04-2022 End: 12-04-2022 ambulatory Marianela Oliva Other [employer] Other Start: 12-04-2022 Telephone encounter Marianela Oliva [facility] Start: 11-10-2022 End: 11-10-2022 ambulatory MD Marianela Oliva Work Phone: [facility] Work Phone: Start: 11-10-2022 End: 11-10-2022 Departed Referred MD Marianela Oliva Work Phone: [facility] [place] Work Phone: Start: 08-07-2022 End: 08-07-2022 ambulatory Regina Huddleston Other [employer] Other Start: 08-07-2022 Telephone encounter Regina Huddleston [facility] Start: 06-26-2022 End: 06-26-2022 ambulatory MD Marianela Oliva Work Phone: [facility] Work Phone: Start: 06-26-2022 End: 06-26-2022 Departed Referred MD Marianela Oliva Work Phone: [facility] Start: 01-07-2022 End: 01-07-2022 ambulatory Reginaher Marieveronica Other [employer] Other Start: 01-07-2022 Patient encounter procedure Regina Huddleston [facility] Start: 12-22-2018 End: 12-23-2018 Patient encounter procedure [facility] Start: 12-09-2018 End: 12-10-2018 Patient encounter procedure CHAU SORENSON Facility:[facility] Start: 06-14-2018 Patient encounter MARIANELA Blevins PJ Fac ility:[facility] Start: 03-22-2018 End: 03-23-2018 Patient encounter procedure [facility] Start: 03-15-2018 End: 03-16-2018 Patient encounter procedure [facility] Start: 03-09-2018 End: 03-09-2018 Patient encounter procedure [facility] Start: 03-07-2018 End: 03-08-2018 Patient encounter procedure [facility] Start: 03-03-2018 End: 03-04-2018 Patient encounter procedure [facility] Start: 03-03-2018 End: 03-03-2018 Patient encounter procedure [facility] Start: 01-20-2018 End: 01-21-2018 Patient encounter procedure Macario Jarvis Facility:[facility] Procedures Date Procedure Procedure Detail Performing Clinician [...] Phone: Start: 12-27-2024 Antibody screen Mario K [facility] Comment on above: Order Comment: NONFA STING.JKW Result Comment: PERF ORMED BY: [facility] [address] [place] [address] MARKER LEÓN GARICA M.D. Start: 12-06-2024 Diagnostic ultrasoun d of gravid uterus Marianela Oliva MD Work Phone: Start: 08-11-2024 Plain chest X-ray MD Heavenly Oliva Work Phone: Start: 05-23-2024 Ultrasonography of limb MD Marianela Oliva Work Phone: Start: 02-23-2023 Screening mammograph y of bilateral breasts MD Marainela Oliva Work Phone: Start: 01-07-2022 Piperacillin/tazobactam Regina [...] CHAU SORENSON Start: 03-09-2018 VITAL SIGNS CHAU [facility] Start: 03-09-2018 FULL CODE [facility]AU [place] [...] procedure 07/12/2025 9:10 AM EDT Routine [facility] [address] [place] [phone] Lanie Mendez, COMPLIANCE AND CONTROL ANALYST [address] [place] [phone] [facility] Start: 07-05-2025 End: 07-05-2025 Patient encounter procedure 07/05/2025 9:50 AM EDT Routine [facility] [address] [place] [phone] Yasmani Abdullahi, DO [address] [place], [facility] Start: 06-21-2025 End: 06-21-2025 Patient encounter procedure 06/21/2025 9:40 AM EDT Routine [facility] [address] [facility] [place] [phone] Yasmani Abdullahi, DO [address] [place] [address] [facility] Start: 06-21-2025 End: 06-21-2025 Professional / ancillary services management 06/21/2025 9:00 AM EDT Ancillary Procedure [facility] [address] [place] [phone] [facility] Start: 06-07-2025 End: 12-08-2025 US biophysical profile w non stress test US biophysical profile w non stress test Imaging Routine Multigravida of advanced maternal age in third trimester ([facility]) Expected: 06/07/2025 (Approximate), Expires: 12/08/2025 [facility] Work Phone: Comment on above: Expected: 06/07/2025 (Approximate), Expires: 12/08/2025 Start: 06-07-2025 End: 06-07-2025 Patient encounter procedure [facility] Comment on above: Arrived Start: 05-22-2025 End: 05-22-2025 Patient encounter procedure 05/22/2025 11:00 AM EDT Routine [facility] [address] [place] [phone] Yasmani Abdullahi, DO [address] [place] [address] [facility] Start: 05-22-2025 End: 05-22-2025 Professional / ancillary services management 05/22/2025 10:30 AM EDT Ancillary Procedure [facility] [address] [place] [phone] [facility] Start: 05-10-2025 End: 09-10-2025 US for US OB follow up transabdominal approach Imaging Routine Antepartum multigravida of advanced maternal age ([facility]) Expected: 05/10/2025, Expires: 09/10/2025 [facility] Work [...] AM EDT Routine [facility] [address] [facility] [place] [phone] Yasmani Abdullahi, DO [address] [place] [address] [facility] Start: 03-15-2025 End: 03-15-2025 Professional / ancillary services management 03/15/2025 8:30 AM EDT Ancillary Procedure [facility] [address] [place] [phone] [facility] Start: 02-15-2025 End: 03-18-2025 [...] AM EDT Routine [facility] [address] [facility] [place] [phone] Yasmani Abdullahi, [address] [place] [address] Arrived [facility] Comment on above: Arrived Start: 12-27-2024 Bacteria identified in Urine by Culture Urine Culture [facility] Start: 12-27-2024 Rubella IgG measurement [facility] Start: 12-27-2024 Urine culture [facility] Start: 12-27-2024 [facility] Start: 12-21-2024 End: 12-21-2024 ambulatory 12/21/2024 1:30 PM EST Initial [facility] [address] [place] [phone] [facility] Start: 12-21-2024 End: 12-21-2024 Professional / ancillary services management 12/21/2024 1:00 PM EST Ancillary Procedure [facility] [address] [facility] [place] [phone] [facility] Start: 12-06-2024 Diagnostic ultrasoun d of gravid uterus [facility] Start: 07-12-2023 [facility] CHLAMYDIA TRACHOMATI S (GENITO/STI) CHLAMYDIA TRACHOMATIS (GENITO/STI) Lab Routine Exposure to STD 16 weeks gestation of Second trimester Ordered: 02/15/2025 [facility] Comment on above: Ordered: 02/15/2025 Cytology Cervical or vaginal smear or scraping study Pap Smear Pathology and Cytology Routine Well woman exam with routine gynecological exam Ordered: 02/15/2025 [facility] Comment on above: Ordered: 02/15/2025 Hepatitis B virus surface Ag [Presence] in Serum or Plasma by Immunoassay [facility] Hepatitis C virus Ig G Ab [Presence] in Serum or Plasma by Immunoassay [facility] HIV 1+2 Ab+HIV1 p24 Ag [Presence] in Serum or Plasma by Immunoassay [facility] Human papilloma viru s DNA [Presence] in Unspecified specimen by Probe with amplification HPV DNA probe, amplified Microbiology Routine Well woman exam with routine gynecological exam Ordered: 02/15/2025 [facility] Comment on above: Ordered: 02/15/2025 Measurement of gluco se 1 hour after glucose challenge for glucose tolerance test GTT, 1 hour Lab Routine Antepartum multigravida of advanced maternal age Ordered: 01/18/2025 [facility] Work Phone: Comment on above: Ordered: 01/18/2025 Neisseria gonorrhoea e DNA [Presence] in Unspecified specimen by CORBY with probe detection Neisseria gonorrhea DNA probe, direct Lab Routine Exposure to STD 16 weeks gestation of Second trimester Ordered: 02/15/2025 [facility] Comment on above: Ordered: 02/15/2025 Patient Education Stomach Pain i n Early [facility] Work Phone: Patient referral [facility] Work Phone: Reagin Ab [Presence] in Serum by RPR [facility] SURESWAB(R) ADVANCED VAGINITIS PLUS, TMA SURESWAB(R) ADVANCED VAGINITIS PLUS, TMA Pathology and Cytology Routine Vaginal discharge Exposure to STD 16 weeks gestation of Second trimester Ordered: 02/15/2025 [facility] [employer] Work Phone: Comment on above: Ordered: 02/15/2025 [facility] Immunizations Immunization Date Immunization Notes Care Provider Fa cilimartha 06-23-2019 tetanus toxoid, redu christen diphtheria toxoid, and acellular pertussis vaccine, adsorbed MD Marianela Oliva Work Phone: [facility] Payers Date Payer Category Payer Unknown [id number] [id number] Self-pay [id number] 2018 Unknown [id number] 2018 Private Health Insurance 2014 Unknown [id number] 1989 Unknown [id number] 2.16.84 0.1.076256.3.579.2.727 1989 Unknown [id number] 2.16.8 40.1.989894.3.579.2.173 1989 Unknown [id number] 2.16.8 40.1.964648.3.579.2.173 1989 Unknown [id number] 2.16.8 40.1.659876.3.579.2.173 1989 Unknown [id number] 2.16.8 40.1.891131.3.579.2.173 1989 Unknown [id number] 2.16.8 40.1.409516.3.579.2.173 1989 Unknown [id number] 2.16.8 40.1.056095.3.579.2.173 1989 Unknown [id number] 2.16.8 40.1.165934.3.579.2.173 1989 Unknown [id number] 2.16.8 40.1.972840.3.579.2.173 1989 Unknown [id number] 2.16.8 40.1.998641.3.579.2.1259 1989 Unknown [id number] 2.16.8 40.1.155320.3.579.2.1259 1989 Unknown [id number] 2.16.8 40.1.945529.3.579.2.1259 1989 Unknown [id number] 2.16.8 40.1.320111.3.579.2.1259 1989 Unknown [id number] 2.16.8 40.1.391096.3.579.2.1258 1989 Unknown [id number] 2.16.8 40.1.639312.3.579.2.1258 1989 Unknown [id number] 2.16.8 40.1.007519.3.579.2.1258 1989 Unknown [id number] 2.16.84 0.1.430824.3.579.2.1258 1989 Unknown [id number] 2.16.84 0.1.343771.3.579.2.1258 1989 Unknown [id number] 2.16.84 0.1.319463.3.579.2.1258 1989 Unknown [id number] 2.16.84 0.1.767379.3.579.2.1258 1989 Unknown [id number] 2.16.84 0.1.612262.3.579.2.1258 1989 Unknown [id number] 2.16.84 0.1.480554.3.579.2.1259 1959 Private Health Insurance [facility] [id number] Unknown [id number] 2.16.8 40.1.357113.3.579.2.531 Unknown [id number] 2.16.8 40.1.774705.3.579.2.531 Unknown [id number] 2.16.8 40.1.374677.3.579.2.531 Unknown [id number] 2.16.8 40.1.451780.3.579.2.531 Unknown [id number] 2.16.8 40.1.342101.3.579.2.531 Unknown [id number] 2.16.8 40.1.835663.3.579.2.531 Unknown [id number] 2.16.8 40.1.852405.3.579.2.531 Unknown [id number] 2.16.8 40.1.892537.3.579.2.531 Social History Date Type Detail Facility Unknown if ever smoked [facility] Other Start: 01-27-2024 End: 12-21-2024 Sex Assigned At Merged With [facility] Other Start: 06-22-2019 End: 01-26-2024 Tobacco smoking status NHIS Never smoked tobacco (finding) [facility] Start: 1990 Sex Assigned At Female [facility] Start: 01-26-2024 Tobacco use and exposure Smokeless tobacco non-user [facility] Start: 01-27-2024 End: 06-21-2025 Alcoholic beverage intake Current drinker of alcohol (finding) [facility] Start: 01-27-2024 End: 12-21-[address] [facility] Start: 01-27-2024 Gender identity Identifies as female gender (finding) [facility] Start: 01-27-2024 Sexual orientation Heterosexual (finding) [facility] Start: 11-04-2024 [facility] Start: 12-06-2024 End: 03-15-2025 Sex Female (finding) [facility] Medical Equipment Procedure Code Equipment Code Equipment Origin al Text Equipment Identifier Dates 1 strip by In Vi tro route Daily Use in the morning prior to breakfast, 1 hour after each meal for a total of 4times daily. [id number] Start: 02-15-2025 End: 03-17-2025 1 each by In Vit ro route Daily Use to check FSBS four times daily [id number] Start: 02-15-2025 End: 03-17-2025 Use as instructed [id number] Start: 04-09-2025 End: 04-09-2026 1 each by In Vit ro route Daily [id number] Start: 04-09-2025 End: 05-09-2025 Clinical Notes 12-16-2021 to 06-21-2025 Eugenia Bridges LPN - 06/21/2025 9:40 AM Gracie Bridges LPN - 06/07/2025 9:50 AM Niki Mckeon LPN - 05/22/2025 11:00 AM EDTSusadee Bridges, MANAGER ESTATE - 05/10/2025 8:40 AM EDT Note Date [...] nursing note reviewed. Exam conducted with a chief librarian work with blind present. Vitals: Estimated body mass index is 35.12 kg/m as calculated from the following: Height as of 12/15/22: 5' 8 . Weight as of this encounter: 231 lb. BP: 124/72 Patient's last menstrual period was 10/21/2024. ASSESSMENT & PLAN ICD-10-CM 1. Third trimester ([facility]) Z34.93 POCT urinalysis dipstick manually resulted 2. 34 weeks gestation of ([facility]) Z3A.34 3. Multigravida of advanced maternal age in third trimester ([facility]) O09.523 Patient presents today for a routine [...] Yasmani Abdullahi DO documented in this encounter [facility] 06-07-2025 History of Presen t illness Narrative [...] nursing note reviewed. Exam conducted with a chief librarian work with blind present. Vitals: Estimated body mass index is 35.14 kg/m as calculated from the following: Height as of 12/15/22: 5' 8 . Weight as of this encounter: 231 lb 1.9 oz. BP: 112/70 Patient's last menstrual period was 10/21/2024. ASSESSMENT & PLAN ICD-10-CM 1. Third trimester ([facility]) Z34.93 POCT urinalysis dipstick manually resulted 2. 32 weeks gestation of ([facility]) Z3A.32 POCT urinalysis dipstick manually resulted 3. Multigravida of advanced maternal age in third trimester ([facility]) O09.523 US biophysical profile w non stress test Patient presents today for a routine obstetrics appointment. Patient is currently 32w5d with a Estimated Date of Delivery: 07/28/25. Patient given orders for NST/BPP's to be started until delivery. Orders will also be sent to [facility] Scheduling and [facility]. Patient to return to clinic in 2 weeks. Documented by Eugenia Bridges LPN on behalf of: Yasmani Abdullahi DO documented in this encounter [facility] 05-22-2025 History of Presen t illness Narrative [...] Past Medical History: Diagnosis Date Anxiety Melanoma ([facility]) 2021 HISTORY PAST MEDICAL HISTORY SOCIAL HISTORY [...] nursing note reviewed. Exam conducted with a chief librarian work with blind present. Vitals: Estimated body mass index is 34.64 kg/m as calculated from the following: Height as of 12/15/22: 5' 8 . Weight as of this encounter: 227 lb 12.8 oz. BP: 110/72 Patient's last menstrual period was 10/21/2024. ASSESSMENT & PLAN ICD-10-CM 1. 30 weeks gestation of ([facility]) Z3A.30 POCT urinalysis dipstick manually resulted 2. Third trimester ([facility]) Z34.93 POCT urinalysis dipstick manually resulted 3. Antepartum multigravida of advanced maternal age ([facility]) O09.529 POCT urinalysis dipstick manually resulted 4. Gestational diabetes mellitus (GDM), antepartum, gestational diabetes method of control unspecified ([facility]) O24.419 POCT urinalysis dipstick manually resulted Return [...] Yasmani Abdullahi DO documented in this encounter [facility] 05-10-2025 History of Presen t illness Narrative [...] nursing note reviewed. Exam conducted with a chief librarian work with blind present. Vitals: Estimated body mass index is 34.25 kg/m as calculated from the following: Height as of 12/15/22: 5' 8 . Weight as of this encounter: 225 lb 4 oz. BP: 124/78 Patient's last menstrual period was 10/21/2024. ASSESSMENT & PLAN ICD-10-CM 1. size consistent with dates, antepartum ([facility]) Z34.90 US OB follow up transabdominal approach 2. Third trimester ([facility]) Z34.93 POCT urinalysis dipstick manually resulted 3. 28 weeks gestation of ([facility]) Z3A.28 Patient presents today for a routine obstetrics appointment. Patient is currently 28w5d with a Estimated Date of Delivery: 07/28/25. Patient to return to clinic in 2 weeks for return OB and Growth US. Patient is going to [facility] after this appointment to receive her Rhogam injection. Patient will call office with any concerns or questions in the meantime. Documented by Eugenia Bridges LPN on behalf of: Yasmani Abdullahi DO documented in this encounter [facility] 04-10-2025 History of Presen t illness Narrative [...] nursing note reviewed. Exam conducted with a chief librarian work with blind present. Vitals: Estimated body mass index is 33.88 kg/m as calculated from the following: Height as of 12/15/22: 5' 8 . Weight as of this encounter: 222 lb 12.8 oz. BP: 108/68 Patient's last menstrual period was 10/21/2024. ASSESSMENT & PLAN ICD-10-CM 1. Second trimester ([facility]) Z34.92 POCT urinalysis dipstick manually resulted 2. 24 weeks gestation of ([facility]) Z3A.24 POCT urinalysis dipstick manually resulted 3. [...] Yasmani Abdullahi DO documented in this encounter [facility] 03-15-2025 History of Presen t illness Narrative [...] Past Medical History: Diagnosis Date Anxiety Melanoma ([facility]) 2021 HISTORY PAST MEDICAL HISTORY SOCIAL HISTORY [...] nursing note reviewed. Exam conducted with a chief librarian work with blind present. Vitals: Estimated body mass index is [...] CBC drawn yesterday. Patient was provided with verification manager email to send FSBS results & more forms we given to patient to track sugars. Patient to RTC in 4 weeks for routine OB care. Documented by Eugenia Bridges LPN on behalf of: Yasmani Abdullahi DO documented in this encounter [facility] 02-15-2025 History of Presen t illness Narrative Reason for Appointment: Patient ID: oNris Goetz is a 34 y.o. female who [...] nursing note reviewed. Exam conducted with a chief librarian work with blind present. Vitals: Estimated body mass index is [...] Yasmani Abdullahi DO documented in this encounter [facility] 01-18-2025 History of Presen t illness Narrative [...] nursing note reviewed. Exam conducted with a chief librarian work with blind present. Vitals: Estimated body mass index is [...] or undercooked meat, and stay away from [facility]. Patient has been consulted regarding any [...] to AMA. Discussed level II ultrasound through [facility] and patient defers at this time and [...] Yasmani Abdullahi DO documented in this encounter [facility] 12-05-2024 Telephone encount er Note Pt is OB and scheduled for intake in December. She called with complaints of kidney pain and left abd pain. Per nurse patient advised to be evaluated at [facility]. She also had questions about Zoloft during . Pt transferred to nurse to discuss. [facility] 12-05-2024 Miscellaneous Notes Formattin g of this note might be different from the original. 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 She called with complaints of kidney pain and left abd pain. Per nurse patient advised to be evaluated at [facility]. She also had questions about Zoloft during . Pt transferred to nurse to discuss. documented in this encounter [facility] 02-04-2023 Evaluation note Encounter Date Diagnosis Assessment Notes Jan, Family history of BRCA gene mutation (ICD-10 - Z84.81) Discussed family history. Pt would like to be checked. She has weighed the risks and benefits and states she would be interested in a B mastectomy if indicated. After calling [facility] Solarsi and [facility], the decision was to fax lab order to [facility]. Order handwritten. Jan, Family history of breast cancer (ICD-10 - Z80.3) Mamm ordered. Jan, Screening mammogram for breast cancer (ICD-10 - Z12.31) [facility] 10-21-2022 Evaluation note* Encounter Date Diagnosis Assessment Notes Treatment Notes Treatment Clinical Notes Jul, Strep pharyngitis (ICD-10 - J02.0) [facility] 03-23-2022 Evaluation note* Encounter Date Diagnosis [...] were not corrected during the review process. [facility] 03-01-2022 History general Narrative - Reported* Type Description Date Medical History post pardom depression Surgical History wisdom teeth Surgical History D&C Surgical History melanoma excision 12/16/21 Hospitalization History child x4 [facility] 03-01-2022 History general Narrative - Reported* Type Description Date Medical History post pardom depression Medical History Anxiety, generalized Surgical History wisdom teeth Surgical History D&C Surgical History melanoma excision 12/16/21 Hospitalization History child x4 Hospitalization History see surgical hx [facility] Other Evaluation noteNo assessment information available [facility] Work Phone: Evaluation noteNo InformationNort Lanyrd Other Evaluation note* Diagnosis Onset Date Resolution Status Mass of skin of chest acute [facility] Work Phone: Evaluation note* Diagnosis Onset Date Resolution Status Mass of skin of chest acute Right lower lobe pneumonia n oneactive [facility] Work Phone: Evaluation note* Diagnosis First [...] be sure to follow-up with your DIRECTOR OF MANAGED CARE and primary care provider. If you develop worsening pain, vaginal bleeding, fevers, other symptoms as we discussed please return the emergency department for reevaluation.[facility] Work Phone: Reason for referral (narrative)No reason for referral information availableOhio[facility] Work Phone: Summary Purpose Family History [...] section and content) DATE CREATED AUTHOR 04/05/2018 [facility] DATE CREATED AUTHOR AUTHOR'S ORGANIZ ATION 06/15/2018 [facility] DATE CREATED AUTHOR AUTHOR'S ORGANIZ ATION 12/15/2018 [facility] DATE CREATED AUTHOR AUTHOR'S ORGANIZ ATION 12/25/2018 [facility] DATE CREATED AUTHOR AUTHOR'S ORGANIZ ATION 04/03/2025 [facility] DATE CREATED AUTHOR AUTHOR'S ORGANIZ ATION 06/23/2025 [facility] EPIC REASON FOR VISIT [...] Marianlea Oliva MD Primary Care Provider Active Marissa Garcia DO Attending Provider Active Team Status: Inactive Member Role Status Dates Marianela Oliva MD Primary Care Provider Active Start: May 17, 2024 End: May 17, 2024 Mario Perez - [facility] , [facility] Attending Provider Active Start: [...] August 11, 2024 Melissa M Reddy , REMOTE BROADCAST ENGINEER Attending Provider Active Sta rt: August 11, 2024 End: August 11, 2024 Team Status: Inactive Member Role Status Dates Marianela Oliva MD Primary Care Provide r, Attending Provider Active Start: August 15, 2024 End: August 15, 2024 Layer Out Plate Glass 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 Specialty Start Date End Date Marianela Oliva MD [address] [place] [phone] PCP - General Family Medicine 01/27/24 Team [...] December 27, 2024 End: December 27, 2024 Layer Out Plate Glass 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 Specialty Start Date End Date Marianela Oliva MD [address] [place] [phone] PCP - General Family Medicine 01/27/24 Layer Out Plate Glass 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 Specialty Start Date End Date Marianela Oliva MD [address] [place] [phone] PCP - General Family Medicine 01/27/24 Layer Out Plate Glass 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 Specialty Start Date End Date Marianela Oliva MD PCP - General Family Medicine 01/27/24 Layer Out Plate Glass 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 Specialty Start Date End Date Marianela Oliva MD PCP - General Family Medicine 01/27/24 Layer Out Plate Glass 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 Specialty Start Date End Date Marianela Oliva MD PCP - General Family Medicine 01/27/24 Layer Out Plate Glass 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 Specialty Start Date End Date Marianela Oliva MD PCP - General Family Medicine 01/27/24 Layer Out Plate Glass 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 Specialty Start Date End Date Marianela [...] March 14, 2025 End: March 14, 2025 Layer Out Plate Glass 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 Specialty Start Date End Date Marianela Oliva MD [address] [place] [phone] PCP - General Family Medicine 01/27/24 Layer Out Plate Glass 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 Specialty Start Date End Date Marianela Oliva MD [address] [place] [address] PCP - General Family Medicine 01/27/24 Layer Out Plate Glass 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 Specialty Start Date End Date Marianela Oliva MD [address] [place] [address] PCP - General Family Medicine 01/27/24 Layer Out Plate Glass 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 Specialty Start Date End Date Marianela Oliva MD [address] [place] [phone] PCP - General Family Medicine 01/27/24 Layer Out Plate Glass 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 Specialty Start Date End Date Marianela Oliva MD [address] [place] [phone] PCP - General Family Medicine 01/27/24 Team Status: Inactive Member Role Status Dates Marianela Oliva MD Primary Care Provider Active Start: April 02, 2025 End: April 02, 2025 Mario Perez - [facility] , DO [facility] Attending Provider Active Start: April 02, 2025 End: April 02, 2025 Team Status: Inactive Member Role Status Dates Marianela Oliva MD Primary Care Provider Active Start: June 12, 2025 End: June 12, 2025 Marianela Oliva MD Attending Provider Active St art: June 12, 2025 End: June 12, 2025 Layer Out Plate Glass 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 Specialty Start Date End Date Marianela Oliva MD [address] [place] [phone] PCP - General Family Medicine 01/27/24 Layer Out Plate Glass 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 Specialty Start Date End Date Marianela Oliva MD [address] [place] [phone] PCP - General Family Medicine 01/27/24 Goals [...] BE BASED ON THE PRIMARY CLINICAL RECORDS. [employer] provides no warranty or guarantee of the accuracy or completeness of information in this document.
[2025-07-04 08:09] VITALS: BP 122/61; PULSE 96
[2025-07-04 08:10] VITALS: BP 121/60; PULSE 102
== END 2025-07-04 09:08 | disposition home or self-care (01) ==
LOC: US 07:30 → FBC 07:32
PROVIDERS: Family Provider Family Medicine; PCP Family Medicine; Visit Provider Obstetrics & Gynecology
DX: O09.523 Supervision of elderly multigravida, third trimester (principal); Z3A.36 36 weeks gestation of pregnancy
CPT/HCPCS: 76818

== ENCOUNTER 2025-07-05 19:49 | Outpatient (REF) | payer OTHER, SELFPAY ==
--- OUTSIDE RECORDS SUMMARY | 2025-07-05 19:52 | XMS_ITS | CCD ---
Author Organization [facility] Care Team Providers Care Bmet Name Role Phone OLIVA, MARIANELA E Unavailable Unavailable OLIVA, MARIANELA E Unavailable Unavailable OLIAV, MARIANELA E Unavailable Unavailable Macario Jarvis Attending Unavailable OLIVA, MARIANELA~[phone] UNKNOWN Primary Care Unavailable HEDGES, CHAU Admitting Unavailable HEDGES, CHAU Attending Unavailable HEDGES, CHAU Referring Unavailable OLIVA, MARIANELA~[phone] UNKNOWN Primary Care Unavailable HEDGES, CHAU W [...] Marianela Oliva Primary Care Provider Kuns - [facility], DO Mario P Attending Provider MD Marianela Oliva Attending Provider MD Derrick Wilson Attending Provider NO FAMILY, PHYSICIAN Primary Care Provider Unava ilable SAUL Reddy Attending Provider Marianela Oliva MD Primary Care Provider Marianela Oliva MD Primary Care Provider Dasia SANTAMARIA Jose Luana Emergency Provider Marianela Oliva MD Primary Care Provider Dasia SANTAMARIA Jose Luana Emergency Provider Yasmani Abdullahi DO Attending Provider [phone] Marianela Oliva MD Primary Care Provider [...] Mario P Admitting Unavailable Kuns - [facility], Mairo P Attending Unavailable Oliva, Marianela E Primary Care Unavailable Marianela Oliva MD Primary Care Provider Yasmani Abdullahi DO Attending Provider [phone] Critical [facility] hospital Mario SANTAMARIA Attending Provider Marianela Oliva MD Attending Provider [phone] KAYLEN, YASMANI Attending Unavailable KAYLEN, YASMANI Attending [...] (True Metrix Air Glucose Meter) w/Device kit (20 sources) Start: 04-09-2025 Blood Glucose Monitoring Suppl (True Metrix Air Glucose Meter) w/Device kit Indications: Gestational diabetes mellitus (GDM), antepartum, gestational diabetes method of control unspecified ([facility]) 1 kit in the morning and 1 [...] Drug Class(es) Dates Sig (Normalized) Sig (Original) [id number] 200 actuat albuterol 0.09 mg/actuat metered dose [...] oral tablet (6 sources) alpha-Adrenergic Agonist, Uncompetitive J-uixrik-R-aspartat e Receptor Antagonist, Sigma-1 Agonist Start: 08-11-2024 [...] unspecified trimester] 12-06-2024 Episodic Other complications of (14 sources) Multigravida of advanced maternal age; Translations: [...] [34 weeks gestation of ] 06-21-2025 Episodic Residual codes; unclassified (2 sources) Gestation period, 36 weeks; Translations: [36 weeks gestation of ] 07-05-2025 Episodic Residual codes; unclassified (2 sources) History of molar ; Translations: [Personal history of other complications of , childbirth and the puerperium] 07-05-2025 Episodic Unclassified (1 source) Cough, unspecified; Translations: [...] Range Facility Urinalysis macro (dipstick) panel (U)on 07-05-2025 Bilirubin, UA Negative Negative - 4(70) +++ mg/dL [facility] Blood, UA Negative Negative - 50 Tavon/mcL [facility] Clarity, UA Clear [facility] Color, UA Yellow [facility] Glucose, UA Positive Negative - 1999(110) ++++ mg/dL [facility] Interpretation and review of laboratory results Abnormal [facility] Ketones, UA Negative Negative - 160(16) ++++ mg/dL [facility] Leukocytes, UA Positive Negative - 500+++ Bertha/mcL [facility] Nitrite, UA Negative Negative - Positive [facility] pH, UA 6.5 5 - 9 [facility] Protein, UA Negative Negative - 2000(20) ++++ mg/dL [facility] Spec Grav, UA 1.01 1 - 1.03 [facility] Urobilinogen, UA 1.0 0.2 - 12 mg/dL [facility] US OB BPP W NON-STRESS on 07-04-[address] [address] Ultrasound Report Signed Patient: NORIS GOETZ MR#: [id number] : 1990 Acct:[id number] Age/Sex: 35 / F ADM Date: 07/04/25 Loc: US Attending Dr: Yasmani Abdullahi D.O. Ordering Physician: Yasmani Abdullahi D.O. Date of Service: 07/04/25 Procedure(s): US OB BPP w non-stress Accession Number(s): [id number] cc: Marianela Oliva M.D.; Yasmani Abdullahi D.O. [place] [address] Patient Name: NORIS GOETZ MRN: [facility]:[id number] date: 1990 Sex: F Assigned Patient Location: [facility] Current Patient Location: Accession/Order Number: [id number] Exam Date: 07/04/2025 07:33 Report Date: 07/04/2025 09:15 At the request of: YASMANI ABDULLAHI DO Procedure: US OB BPP w non-stress BIOPHYSICAL PROFILE: CLINICAL INFORMATION: MULTIGRAVIDA ADVANCED MATERNAL AGE O09.523 COMPARISON: 06/26/2025 There is a single live intrauterine gestation in cephalic presentation. The reported gestational age is 36 weeks 4 days. The heart rate measures 134 beats per minute. FINDINGS: TONE: 1 or [...] greater than 2 cm [Y] 2/2 GRAYSON: 23.4 cm. The 95th percentile is 24.9 cm. Total score: 8/8 US/US OB BPP w non-stress IMPRESSION: NORMAL BIOPHYSICAL PROFILE. BORDERLINE PROMINENT GRAYSON. Impression dictated by: Annel Barnhart M.D. 07/04/2025 9:15 AM Dictation Location: [place] [address] Electronically authenticated by: [id number] Y Date: 07/04/2025 09:15 Dictated By: Annel Barnhart M.D. Signed By: 07/04/25917 DD/ 4 TD/TT: Pairer Odds: [facility] Radiology, Radiologi st, MD - 07/04/2025 [place] [address] Ultrasound Report Signed Patient: NORIS GOETZ MR#: [id number] : 1990 Acct:[id number] Age/Sex: 35 / F ADM Date: 07/04/25 Loc: US Attending Dr: Yasmani Abdullahi D.O. Ordering Physician: Yasmani Abdullahi D.O. Date of Service: 07/04/25 Procedure(s): US OB BPP w non-stress Accession Number(s): [id number] cc: Marianela Oliva M.D.; Yasmani Abdullahi D.O. The [place] [address] Patient Name: NORIS GOETZ MRN: [facility]:[id number] date: 1990 Sex: F Assigned Patient Location: [facility] Current Patient Location: Accession/Order Number: [id number] Exam Date: 07/04/2025 07:33 Report Date: 07/04/2025 09:15 At the request of: YASMANI ABDULLAHI DO Procedure: US OB BPP w non-stress BIOPHYSICAL PROFILE: CLINICAL INFORMATION: MULTIGRAVIDA ADVANCED MATERNAL AGE O09.523 COMPARISON: 06/26/2025 There is a single live intrauterine gestation in cephalic presentation. The reported gestational age is 36 weeks 4 days. The heart rate measures 134 beats per minute. FINDINGS: TONE: 1 or [...] greater than 2 cm [Y] 2/2 GRAYSON: 23.4 cm. The 95th percentile is 24.9 cm. Total score: 8/8 US/US OB BPP w non-stress IMPRESSION: NORMAL BIOPHYSICAL PROFILE. BORDERLINE PROMINENT GRAYSON. Impression dictated by: Annel Barnhart M.D. 07/04/2025 9:15 AM Dictation Location: [place] [address] Electronically authenticated by: [id number] Y Date: 07/04/2025 09:15 Dictated By: Annel Barnhart M.D. Signed By: 07/04/25917 DD/ 4 TD/TT: Pairer Odds: [facility] Radiology Study observation (narrative) [facility] US OB BPP W NON-STRESS Ordered By: Radiologist Radiology on 07-04-2025 [facility] Work Phone: US OB BPP W NON-STRESS on 06-27-2025 [place] [address] Ultrasound Report Signed Patient: NORIS GOETZ MR#: [id number] : 1990 Acct:[id number] Age/Sex: 35 / F ADM Date: 06/27/25 Loc: US Attending Dr: Yasmani Abdullahi D.O. Ordering Physician: Yasmani Abdullahi D.O. Date of Service: 06/27/25 Procedure(s): US OB BPP w non-stress Accession Number(s): [id number] cc: Marianela Oliva M.D.; Yasmani Abdullahi D.O. [place] [address] Patient Name: NORIS GOETZ MRN: [id number] date: 1990 Sex: F Assigned Patient Location: Current Patient Location: Accession/Order Number: [id number] Exam Date: 06/27/2025 07:35 Report Date: 06/27/2025 08:36 At the request of: YASMANI ABDULLAHI DO Procedure: US OB BPP w non-stress BIOPHYSICAL PROFILE: CLINICAL INFORMATION: Multigravida of advanced maternal age COMPARISON: 06/22/2025 There is a single live intrauterine gestation in cephalic presentation. The reported gestational age is 35 weeks 4 days The heart rate diqvvihl452 beats per minute. FINDINGS: TONE: 1 or [...] Barnhart M.D. 06/27/2025 8:36 AM Dictation Location: [place] [address] Electronically authenticated by: [id number] Y Date: 06/27/2025 08:36 Dictated By: Annel Barnhart M.D. Signed By: 06/27/2539 DD/ 5 TD/TT: Pairer Odds: [facility] Radiology, Radiologi MD lou - 06/27/2025 [place] [address] Ultrasound Report Signed Patient: NORIS GOETZ MR#: [id number] : 1990 Acct:[id number] Age/Sex: 35 / F ADM Date: 06/27/25 Loc: US Attending Dr: Yasmani Abdullahi D.O. Ordering Physician: Yasmani Abdullahi D.O. Date of Service: 06/27/25 Procedure(s): US OB BPP w non-stress Accession Number(s): [id number] cc: Marianela Oliva M.D.; Yasmani Abdullahi D.O. The [place] [id number] Patient Name: NORIS GOETZ MRN: [facility]:[id number] date: 1990 Sex: F Assigned Patient Location: US Current Patient Location: Accession/Order Number: [id number] Exam Date: 06/27/2025 07:35 Report Date: 06/27/2025 08:36 At the request of: YASMANI KAYLEN DO Procedure: US OB BPP w non-stress BIOPHYSICAL PROFILE: CLINICAL INFORMATION: Multigravida of advanced maternal age COMPARISON: 06/22/2025 There is a single live intrauterine gestation in cephalic presentation. The reported gestational age is 35 weeks 4 days The heart rate uguluxew506 beats per minute. FINDINGS: TONE: 1 or [...] Barnhart M.D. 06/27/2025 8:36 AM Dictation Location: [facility] Electronically authenticated by: [id number] Y Date: 06/27/2025 08:36 Dictated By: Annel Barnhart M.D. Signed By: 06/27/2539 DD/ 5 TD/TT: Pairer Odds: [facility] Radiology Study observation (narrative) [facility] US OB BPP W NON-STRESS Ordered By: Radiologist Radiology on 06-27-2025 [facility] Work Phone: US OB BPP W NON-STRESS on 06-22-2025 [place] [address] Ultrasound Report Signed Patient: NORIS GOETZ MR#: [id number] : 1990 Acct:[id number] Age/Sex: 35 / F ADM Date: 06/22/25 Loc: US Attending Dr: Yasmani Abdullahi D.O. Ordering Physician: Yasmani Abdullahi D.O. Date of Service: 06/22/25 Procedure(s): US OB BPP w non-stress Accession Number(s): [id number] cc: Marianela Oliva M.D.; Yasmani Abdullahi D.O. The [place] [id number] Patient Name: NORIS GOETZ MRN: [facility]:[id number] date: 1990 Sex: F Assigned Patient Location: [facility] Current Patient Location: Accession/Order Number: [id number] Exam Date: 06/22/2025 17:18 Report Date: 06/22/2025 [...] Flores M.D. 06/22/2025 9:47 PM Dictation Location: [place] [address] Electronically authenticated by: [id number] Y Date: 06/22/2025 21:47 Dictated By: Alfonzo Flores D.O. Signed By: 06/22/252149 DD/ 46 TD/TT: Pairer Odds: [facility] Radiology Radiologjoni blake MD - 06/22/2025 [place] [address] Ultrasound Report Signed Patient: NORIS GOETZ MR#: [id number] : 1990 Acct:[id number] Age/Sex: 35 / F ADM Date: 06/22/25 Loc: US Attending Dr: Yasmani Abdullahi D.O. Ordering Physician: Yasmani Abdullahi D.O. Date of Service: 06/22/25 Procedure(s): US OB BPP w non-stress Accession Number(s): [id number] cc: Marianela Oliva M.D.; Yasmani Abdullahi D.O. The [place] [id number] Patient Name: NORIS GOETZ MRN: [id number]:[id number] date: 1990 Sex: F Assigned Patient Location: [facility] Current Patient Location: Accession/Order Number: [id number] Exam Date: 06/22/2025 17:18 Report Date: 06/22/2025 [...] Flores M.D. 06/22/2025 9:47 PM Dictation Location: [place] Electronically authenticated by: [id number] Y Date: 06/22/2025 21:47 Dictated By: Alfonzo Flores D.O. Signed By: 06/22/252149 DD/ 46 TD/TT: Pairer Odds: [facility] Radiology Study observation (narrative) [facility] US OB BPP W NON-STRESS Ordered By: Radiologist Radiology on 06-22-2025 [facility] [employer] Work Phone: US OB FOLLOW UP TRANSABDOMIN [...] UA Negative Negative - 4(70) +++ mg/dL [facility] Blood, UA Negative Negative - 50 Tavon/mcL [facility] Clarity, UA Clear [facility] Color, UA Yellow [facility] Glucose, UA Negative Negative - 1999(110) ++++ mg/dL [facility] Interpretation and review of laboratory results Abnormal [facility] Ketones, UA Positive Negative - 160(16) ++++ mg/dL [facility] Leukocytes, UA 1+ Negative - 500+++ Bertha/mcL [facility] Nitrite, UA Negative Negative - Positive [facility] pH, UA 7 5 - 9 [facility] Protein, UA Negative Negative - 1999(20) ++++ mg/dL [facility] Spec Grav, UA 1.015 1 - 1.03 [facility] Urobilinogen, UA 1.0 0.2 - 12 mg/dL [facility] US OB BPP W NON-STRESS on 06-19-2025 [place] [address] Ultrasound Report Signed Patient: NORIS GOETZ MR#: [id number] : 1990 Acct:[id number] Age/Sex: 35 / F ADM Date: 06/19/25 Loc: [facility] 250-[address]: Yasmani Abdullahi D.O. Ordering Physician: Yasmani Abdullahi D.O. Date of Service: 06/19/25 Procedure(s): US OB BPP w non-stress Accession Number(s): [id number] cc: Marianela Oliva M.D.; Yasmani Abdullahi D.O. The [address] [address] Patient Name: NORIS GOETZ MRN: [facility]:[id number] date: 1990 Sex: F Assigned Patient Location: US Current Patient Location: US Accession/Order Number: [id number] Exam Date: 06/19/2025 11:08 Report Date: 06/19/2025 [...] Barnhart M.D. 06/19/2025 12:15 PM Dictation Location: [place] [address] Electronically authenticated by: [id number] Y Date: 06/19/2025 12:15 Dictated By: Annel Barnhart M.D. Signed By: 06/19/25 1217 DD/ 14 TD/TT: Pairer Odds: [facility] Radiology, Radiologi MD lou - 06/19/2025 [place] [address] Ultrasound Report Signed Patient: NORIS GOETZ MR#: [id number] : 1990 Acct:[id number] Age/Sex: 35 / F ADM Date: 06/19/25 Loc: [facility] 250-[address]: Yasmani Abdullahi D.O. Ordering Physician: Yasmani Abdullahi D.O. Date of Service: 06/19/25 Procedure(s): US OB BPP w non-stress Accession Number(s): [id number] cc: Marianela Oliva M.D.; Yasmani Abdullahi D.O. The [place] [address] Patient Name: NORIS GOETZ MRN: [id number]:[id number] date: 1990 Sex: F Assigned Patient Location: US Current Patient Location: US Accession/Order Number: [id number] Exam Date: 06/19/2025 11:08 Report Date: 06/19/2025 [...] Barnhart M.D. 06/19/2025 12:15 PM Dictation Location: [facility] Electronically authenticated by: [id number] Y Date: 06/19/2025 12:15 Dictated By: Annel Barnhart M.D. Signed By: 06/19/251216 DD/ 14 TD/TT: Pairer Odds: [facility] Radiology Study observation (narrative) [facility] OB BPP W NON-STRESS Ordered By: Radiologist Radiology on 06-19-2025 [facility] Work Phone: Urinalysis macro (dipstick) panel (U)on 06-07-2025 Bilirubin, UA Negative Negative - 4(70) +++ mg/dL [facility] Blood, UA Negative Negative - 50 Tavon/mcL [facility] Clarity, UA Clear [facility] Color, UA Yellow [facility] Glucose, UA Negative Negative - 2000(110) ++++ mg/dL [facility] Interpretation and review of laboratory results Normal [facility] Ketones, UA Negative Negative - 160(16) ++++ mg/dL [facility] Leukocytes, UA Negative Negative - 500+++ Bertha/mcL [facility] Nitrite, UA Negative Negative - Positive [facility] pH, UA 7.5 5 - 9 [facility] Protein, UA Negative Negative - 2000(20) ++++ mg/dL [facility] Spec Grav, UA 1.005 1 - 1.03 [facility] Urobilinogen, UA 1.0 0.2 - 12 mg/dL [facility] US OB FOLLOW UP TRANSABDOMIN AL [...] UA Negative Negative - 4(70) +++ mg/dL [facility] Blood, UA Negative Negative - 50 Tavon/mcL [facility] Healthcare Clarity, UA Clear [facility] Color, UA Yellow [facility] Glucose, UA Negative Negative - 1999(110) ++++ mg/dL [facility] Interpretation and review of laboratory results Normal [facility] Ketones, UA Negative Negative - 160(16) ++++ mg/dL [facility] Leukocytes, UA Negative Negative - 500+++ Bertha/mcL [facility] Nitrite, UA Negative Negative - Positive [facility] pH, UA 6.5 5 - 9 [facility] Healthcare Protein, UA Negative Negative - 1999(20) ++++ mg/dL [facility] Spec Grav, UA 1.01 1 - 1.03 [facility] Urobilinogen, UA 1.0 0.2 - 12 mg/dL [facility] Healthcare [facility] Urinalysis macro (dipstick) panel (U)on 05-10-2025 Bilirubin, UA Negative Negative - 4(70) +++ mg/dL [facility] Blood, UA Negative Negative - 50 Tavon/mcL [facility] Clarity, UA Clear [facility] Color, UA Yellow [facility] Glucose, UA Negative Negative - 1999(110) ++++ mg/dL [facility] Interpretation and review of laboratory results Abnormal [facility] Healthcare Ketones, UA Positive Negative - 160(16) ++++ mg/dL [facility] Comment on above: Large Leukocytes, UA Negative Negative - 500+++ Bertha/mcL [facility] Nitrite, UA Negative Negative - Positive [facility] pH, UA 6.5 5 - 9 [facility] Protein, UA Trace Negative - 1999(20) ++++ mg/dL [facility] Spec Grav, UA 1.015 1 - 1.03 [facility] Urobilinogen, UA 0.2 0.2 - 12 mg/dL [facility] Urinalysis macro (dipstick) panel (U)on 04-10-2025 Bilirubin, UA Negative Negative - 4(70) +++ mg/dL [facility] Blood, UA Negative Negative - 50 Tavon/mcL [facility] Clarity, UA Clear [facility] Color, UA Yellow [facility] Glucose, UA Negative Negative - 1999(110) ++++ mg/dL [facility] Interpretation and review of laboratory results Normal [facility] Ketones, UA Negative Negative - 160(16) ++++ mg/dL [facility] Leukocytes, UA Negative Negative - 500+++ Bertha/mcL [facility] Nitrite, UA Negative Negative - Positive [facility] pH, UA 6.5 5 - 9 [facility] Protein, UA Negative Negative - 1999(20) ++++ mg/dL [facility] Spec Grav, UA 1.025 1 - 1.03 [facility] Urobilinogen, UA 1.0 0.2 - 12 mg/dL [facility] Albumin [Mass/volume] in Ser um or Plasma by Bromocresol green (BCG) dye binding methoOrdered By: Mario Perez on 04-02-2025 Albumin BCG dye [Mass/Vol] 3.4 g/dL Low 3.5-5.7 [facility] Cholesterol in LDL Calc [Mas s/Vol]Ordered By: Mario Perez on 04-02-2025 Cholesterol in LDL [Mass/Vol] 120 mg/dL High 0-100 [facility] Comment on above: LDL ATP III CLASSIFI CATIONLDL less than 100 mg/dL OptimalLDL 100-129 mg/dL Near or above optimalLDL 130-159 mg/dL Borderline highLDL 160-189 mg/dL HighLDL greater than 189 mg/dL Very high Cholesterol in VLDL Calc [Ma ss/Vol]Ordered By: Mario Perez on 04-02-2025 Cholesterol in VLDL [Mass/Vol] 26 mg/dL [facility] Employee Comp Metabolic Pane marcel 04-02-2025 Albumin [Mass/Vol] 3.4 g/dL Low 3.5-5.7 [facility] Comment on above: Performed By: #### P ILLAR TSH, PILLAR CBC, PILLAR BMP, PILLAR LIPID #### [facility] [address] [place] [address] GFR/1.73 sq M.predicted MDRD (S/P/Bld) [Vol rate/Area] mL/min/{1.73_m2} Normal [facility] Comment on above: Performed By: #### P ILLAR TSH, PILLAR CBC, PILLAR BMP, PILLAR LIPID #### [facility] [address] [place] [address] Employee Comp Metabolic Pane lOrdered By: Mario Perez on 04-02-2025 Albumin/Globulin [Mass ratio] 1.5 {ratio} [facility] Comment on above: Performed By: #### P ILLAR TSH, PILLAR CBC, PILLAR BMP, PILLAR LIPID #### [facility] [address] [place] [address] ALP [Catalytic activity/Vol] 39 U/L 34-104 [facility] Comment on above: Performed By: #### P ILLAR TSH, PILLAR CBC, PILLAR BMP, PILLAR LIPID #### [facility] [address] [place] [address] ALT [Catalytic activity/Vol] 10 U/L 7-52 [facility] Comment on above: Performed By: #### P ILLAR TSH, PILLAR CBC, PILLAR BMP, PILLAR LIPID #### [facility] [address] [place] [address] Anion gap [Moles/Vol] 8.5 mmol/L 6.0-15.0 [facility] Comment on above: Performed By: #### P ILLAR TSH, PILLAR CBC, PILLAR BMP, PILLAR LIPID #### [address] AST [Catalytic activity/Vol] 12 U/L Low 13-39 [facility] Comment on above: Performed By: #### P ILLAR TSH, PILLAR CBC, PILLAR BMP, PILLAR LIPID #### [facility] [address] Bilirubin [Mass/Vol] 0.3 mg/dL 0.3-1.0 [facility] Comment on above: Performed By: #### P ILLAR TSH, PILLAR CBC, PILLAR BMP, PILLAR LIPID #### [facility] [address] Calcium [Mass/Vol] 8.2 mg/dL Low 8.6-10.3 [facility] Comment on above: Performed By: #### P ILLAR TSH, PILLAR CBC, PILLAR BMP, PILLAR LIPID #### [facility] [address] Chloride [Moles/Vol] 106 mmol/L 98-107 [facility] Comment on above: Performed By: #### P ILLAR TSH, PILLAR CBC, PILLAR BMP, PILLAR LIPID #### [facility] [address] [place] [address] CO2 [Moles/Vol] 25.4 mmol/L 21.0-31.0 [facility] Comment on above: Performed By: #### P ILLAR TSH, PILLAR CBC, PILLAR BMP, PILLAR LIPID #### [facility] [address] [place] [address] Creatinine [Mass/Vol] 0.49 mg/dL Low 0.60-1.20 [facility] Comment on above: Performed By: #### P ILLAR TSH, PILLAR CBC, PILLAR BMP, PILLAR LIPID #### [facility] [address] [place] [address] Globulin (S) [Mass/Vol] 2.3 g/dL [facility] Comment on above: Performed By: #### P ILLAR TSH, PILLAR CBC, PILLAR BMP, PILLAR LIPID #### [facility] [address] [place] [address] Glucose [Mass/Vol] 92 mg/dL 70-100 [facility] Comment on above: Performed By: #### P ILLAR TSH, PILLAR CBC, PILLAR BMP, PILLAR LIPID #### [facility] [address] Potassium [Moles/Vol] 3.9 mmol/L 3.5-5.1 [facility] Comment on above: Performed By: #### P ILLAR TSH, PILLAR CBC, PILLAR BMP, PILLAR LIPID #### [facility] [address] Protein [Mass/Vol] 5.7 g/dL Low 6.4-8.9 [facility] Comment on above: Performed By: #### P ILLAR TSH, PILLAR CBC, PILLAR BMP, PILLAR LIPID #### [facility] [address] Sodium [Moles/Vol] 136 mmol/L 136-145 [facility] Comment on above: Performed By: #### P ILLAR TSH, PILLAR CBC, PILLAR BMP, PILLAR LIPID #### [facility] [address] Urea nitrogen [Mass/Vol] 12 mg/dL 7-25 [facility] Comment on above: Performed By: #### P ILLAR TSH, PILLAR CBC, PILLAR BMP, PILLAR LIPID #### [facility] [address] Employee Complete Blood Coun tOrdered By: Mario Perez on 04-02-2025 Basophils (Bld) [#/Vol] 0.0 10*3/uL 0.0-0.2 [facility] Comment on above: Result Comment: PERF ORMED BY: [facility] [address] [place] [address] PATHOLOGIST BUSINESS [employer]ICES SUPERVISOR JESS VARGAS M.D. Performed By: #### P ILLAR LIPID, PILLAR CBC, PILLAR CMP ####[facility] [id number] [address] Basophils/100 WBC (Bld) 0.5 % . [facility] Comment on above: Performed By: #### P ILLAR LIPID, PILLAR CBC, PILLAR CMP ####[address] Eosinophils (Bld) [#/Vol] 0.2 10*3/uL 0.0-0.45 [facility] Comment on above: Performed By: #### P ILLAR LIPID, PILLAR CBC, PILLAR CMP ####[address] Eosinophils/100 WBC (Bld) 2.5 % . [facility] Comment on above: Performed By: #### P ILLAR LIPID, PILLAR CBC, PILLAR CMP ####[address] Erythrocyte distribution width (RBC) [Ratio] 13.4 % 11.9-15.3 [facility] Comment on above: Performed By: #### P ILLAR LIPID, PILLAR CBC, PILLAR CMP ####[address] Hematocrit (Bld) [Volume fraction] 34.4 % 34.0-46.4 [facility] Comment on above: Performed By: #### P ILLAR LIPID, PILLAR CBC, PILLAR CMP ####[address] Hemoglobin (Bld) [Mass/Vol] 11.8 g/dL 11.8-15.4 [facility] Comment on above: Performed By: #### P ILLAR LIPID, PILLAR CBC, PILLAR CMP ####[address] Lymphocytes (Bld) [#/Vol] 1.6 10*3/uL 1.00-4.8 [facility] Comment on above: Performed By: #### P ILLAR LIPID, PILLAR CBC, PILLAR CMP ####[address] Lymphocytes/100 WBC (Bld) 21.6 % . [facility] Comment on above: Performed By: #### P ILLAR LIPID, PILLAR CBC, PILLAR CMP ####[place] [address] [facility] MCH (RBC) [Entitic mass] 29.3 pg 24.7-34.3 [facility] Comment on above: Performed By: #### P ILLAR LIPID, PILLAR CBC, PILLAR CMP ####[place] [id number] [facility] MCV (RBC) [Entitic vol] 85.4 fL 80-100 [facility] Comment on above: Performed By: #### P ILLAR LIPID, PILLAR CBC, PILLAR CMP ####[address] Monocytes (Bld) [#/Vol] 0.6 10*3/uL 0.0-0.8 [facility] Comment on above: Performed By: #### P ILLAR LIPID, PILLAR CBC, PILLAR CMP ####[address] Monocytes/100 WBC (Bld) 7.9 % . [facility] Comment on above: Performed By: #### P ILLAR LIPID, PILLAR CBC, PILLAR CMP ####[address] Neutrophils (Bld) [#/Vol] 5.0 10*3/uL 1.8-7.7 [facility] Comment on above: Performed By: #### P ILLAR LIPID, PILLAR CBC, PILLAR CMP ####[address] Neutrophils/100 WBC (Bld) 67.5 % . [facility] Comment on above: Performed By: #### P ILLAR LIPID, PILLAR CBC, PILLAR CMP ####[place] [id number] [facility] Platelet mean volume (Bld) [Entitic vol] 9.5 fL 6.3-10.7 [facility] Comment on above: Performed By: #### P ILLAR LIPID, PILLAR CBC, PILLAR CMP ####[place] [id number] [facility] Platelets (Bld) [#/Vol] 198 10*3/uL 150-450 [facility] Comment on above: Performed By: #### P ILLAR LIPID, PILLAR CBC, PILLAR CMP ####[address] RBC (Bld) [#/Vol] 4.03 10*6/uL 3.60-5.00 [facility] Comment on above: Performed By: #### P ILLAR LIPID, PILLAR CBC, PILLAR CMP ####[address] WBC (Bld) [#/Vol] 7.4 10*3/uL 3.8-11.6 [facility] Comment on above: Performed By: #### P ILLAR LIPID, PILLAR CBC, PILLAR CMP ####[address] Employee Complete Blood Coun ton 04-02-2025 Mean Corpuscular HGB Conc 34.3 g/dL Normal 32.0-35.0 [facility] Comment on above: Performed By: #### P ILLAR LIPID, PILLAR CBC, PILLAR CMP ####[address] NRBC% 0.1 /100{WBC} Normal 0-0.5 [facility] Comment on above: Performed By: #### P ILLAR LIPID, PILLAR CBC, PILLAR CMP ####[address] Employee Lipid ProfileOrdere d By: Mario Perez on 04-02-2025 Cholesterol [Mass/Vol] 222 mg/dL High 140-200 [facility] Comment on above: Result Comment: Chol less than 200 mg/dl low risk Chol 201-239 mg/dl borderline risk Chol 240 mg/dl and greater high risk Performed By: #### P ILLAR TSH, PILLAR CBC, PILLAR BMP, PILLAR LIPID #### [facility] [address] Chol less than 200 m g/dl low riskChol 201-239 mg/dl borderline riskChol 240 mg/dl and greater high risk Cholesterol in HDL [Mass/Vol] 76 mg/dL 23-92 [facility] Comment on above: Result Comment: HDL CHOL ATP-III CLASSIFICATION Cardiovascular Risk HDL > or equal to 60 mg/dL LOW HDL < 40 mg/dL HIGH Performed By: #### P ILLAR TSH, PILLAR CBC, PILLAR BMP, PILLAR LIPID #### [facility] [address] HDL CHOL ATP-III CLA SSIFICATION Cardiovascular RiskHDL > or equal to 60 mg/dL LOWHDL < 40 mg/dL HIGH Cholesterol.total/Chol esterol in HDL [Mass ratio] 2.9 {ratio} <5.0 [facility] Comment on above: Result Comment: PERF ORMED BY: [place] [address] PATHOLOGIST BUSINESS PRACTICES SUPERVISOR JESS VARGAS M.D. Performed By: #### P ILLAR TSH, PILLAR CBC, PILLAR BMP, PILLAR LIPID #### [address] Employee Lipid Profileon LDL Cholesterol,Calculated 120 mg/dL High 0-100 [facility] Comment on above: Result Comment: LDL ATP III CLASSIFICATION LDL less than 100 mg/dL Optimal LDL 100-129 mg/dL Near or above optimal LDL 130-159 mg/dL Borderline high LDL 160-189 mg/dL High LDL greater than 189 mg/dL Very high Performed By: #### P ILLAR TSH, PILLAR CBC, PILLAR BMP, PILLAR LIPID #### [address] Triglyceride w/Reflex 131 mg/dL Normal 0-149 [facility] Comment on above: Result Comment: TRIG ATP III CLASSIFICATION TRIG less than 150 mg/dL Normal TRIG 150-199 mg/dL Borderline high TRIG 200-500 mg/dL High TRIG greater than 500 mg/dL Very high Standard traceable to the Center for Disease Conrtrol and Prevention (CDC) test method. Performed By: #### P ILLAR TSH, PILLAR CBC, PILLAR BMP, PILLAR LIPID #### [facility] [address] [place] [id number] [facility] VLDL CHOLESTEROL 26 mg/dL Normal [facility] Comment on above: Performed By: #### P ILLAR TSH, PILLAR CBC, PILLAR BMP, PILLAR LIPID #### [facility] [address] [place] [id number] [facility] Leukocytes [#/volume] correc randolph for nucleated erythrocytes in Blood by Automated counOrdered By: Mario Perez on 04-02-2025 WBC corrected for nucl RBC Auto (Bld) [#/Vol] 7.4 10*3/uL 3.8-11.6 [facility] MCHC Auto (RBC) [Mass/Vol]Or dered By: Mario Perez on 04-02-2025 MCHC (RBC) [Mass/Vol] 34.3 g/dL 32.0-35.0 [facility] No Panel InformationOrdered By: Mario Perez on 04-02-2025 Estimated GFR (CKD-EPI) > 60.0 mL/Min [facility] Creatinine Clearance (Chem N/A [facility] Nucleated erythrocytes [Pres ence] in Blood by Automated countOrdered By: Mario Perez on 04-02-2025 Nucleated RBC Auto Ql (Bld) 0.1 /100{WBC} 0-0.5 [facility] Triglyceride [Mass/volume] i n Serum or PlasmaOrdered By: Mario Perez on 04-02-2025 Triglyceride [Mass/Vol] 131 mg/dL 0-149 [facility] Comment on above: TRIG ATP III CLASSIF [...] II, MD, PHD at 16-Mar-2025 11:50:11 AM [facility] Normal Not Available Comment on above: Order Comment: US OB ANATOMY SINGLE W US OB CERVICAL LENGTH Estimated Date of Delivery: 07/28/25 Gestational Age as of 02/15/2025: 16w5d Urinalysis macro (dipstick) panel (U)on 03-15-2025 Bilirubin, UA Negative Negative - 4(70) +++ mg/dL [facility] Blood, UA Negative Negative - 50 Tavon/mcL [facility] Clarity, UA Clear [facility] Color, UA Yellow [facility] Glucose, UA Negative Negative - 2000(110) ++++ mg/dL [facility] Interpretation and review of laboratory results Normal [facility] Ketones, UA Negative Negative - 160(16) ++++ mg/dL [facility] Leukocytes, UA Negative Negative - 500+++ Bertha/mcL [facility] Nitrite, UA Negative Negative - Positive [facility] pH, UA 7 5 - 9 [facility] Protein, UA Negative Negative - 2000(20) ++++ mg/dL [facility] Spec Grav, UA 1.015 1 - 1.03 [facility] Urobilinogen, UA 0.2 0.2 - 12 mg/dL [facility] Basophils Auto (Bld) [#/Vol] Ordered By: Yasmani Abdullahi on 03-14-2025 Basophils (Bld) [#/Vol] Automated basophil count 0.0-0.2 [facility] Basophils/100 WBC Auto (Bld) Ordered By: Yasmani Abdullahi on 03-14-2025 Basophils/100 WBC (Bld) Automated basophil % . [facility] CBC W Auto Differential pane l (Bld)on 03-14-2025 Basophils (Bld) [#/Vol] 0 10*3/uL 0.0 - 0.2 10*3/uL [facility] Basophils/100 WBC Manual cnt (Syn fld) 0.3 % . [facility] Eosinophils (Bld) [#/Vol] 0.1 10*3/uL 0.0 - 0.45 10*3/uL [facility] Eosinophils/100 WBC Manual cnt (Syn fld) 1 % . [facility] Erythrocyte distribution width (RBC) [Ratio] 13.5 % 11.9 - 15.3 % [facility] Hematocrit (Bld) [Volume fraction] 35.8 % 34.0 - 46.4 % [facility] Hemoglobin (Bld) [Mass/Vol] 12.6 g/dL 11.8 - 15.4 g/dL [facility] Interpretation and review of laboratory results Abnormal [facility] Lymphocytes (Bld) [#/Vol] 1.8 10*3/uL 1.00 - 4.8 10*3/uL [facility] Lymphocytes/100 WBC Manual cnt (Syn fld) 19.9 % . [facility] MCH (RBC) [Entitic mass] 29.2 pg 24.7 - 34.3 pg [facility] MCHC (RBC) [Mass/Vol] 35.1 g/dL High 32.0 - 35.0 g/dL [facility] MCV (RBC) [Entitic vol] 83.3 fL 80 - 100 fL [facility] Monocytes (Bld) [#/Vol] 0.7 10*3/uL 0.0 - 0.8 10*3/uL [facility] Monocytes+Macrophages/ 100 WBC Manual cnt (Syn fld) 8.2 % . [facility] Neutrophils (Bld) [#/Vol] 6.4 10*3/uL 1.8 - 7.7 10*3/uL [facility] Neutrophils/100 WBC Manual cnt (Syn fld) 70.6 % . [facility] NRBC 0.1 /100{WBC} 0 - 0.5 /100{WBC} [facility] Platelet mean volume (Bld) [Entitic vol] 9 fL 6.3 - 10.7 fL [facility] Platelets (Bld) [#/Vol] 235 10*3/uL 150 - 450 10*3/uL [facility] RBC LM.HPF (Urine sed) [#/Area] 4.3 10*6/uL 3.60 - 5.00 10*6/uL [facility] WBC (Bld) [#/Vol] 9.1 10*3/uL 3.8 - 11.6 10*3/uL [facility] WBC LM.HPF (Urine sed) [#/Area] 9.1 10*3/uL 3.8 - 11.6 10*3/uL [facility] Complete Blood Count Auto Di ffOrdered By: Yasmani Abdullahi on 03-14-2025 Basophils (Bld) [#/Vol] 0.0 10*3/uL 0.0-0.2 [facility] Comment on above: Result Comment: PERF ORMED BY: [facility] [address] [place] [address] PATHOLOGIST BUSINESS [employer]ACT[employer] SUPERVISOR JESS VARGAS M.D. Performed By: #### C BC ####[facility] [id number] [place] [address] [facility] Basophils/100 WBC (Bld) 0.3 % . [facility] Comment on above: Performed By: #### C BC ####[place] [id number] [facility] Eosinophils (Bld) [#/Vol] 0.1 10*3/uL 0.0-0.45 [facility] Comment on above: Performed By: #### C BC ####[place] [id number] [facility] Eosinophils/100 WBC (Bld) 1.0 % . [facility] Comment on above: Performed By: #### C BC ####[address] Erythrocyte distribution width (RBC) [Ratio] 13.5 % 11.9-15.3 [facility] Comment on above: Performed By: #### C BC ####[address] Hematocrit (Bld) [Volume fraction] 35.8 % 34.0-46.4 [facility] Comment on above: Performed By: #### C BC ####[address] Hemoglobin (Bld) [Mass/Vol] 12.6 g/dL 11.8-15.4 [facility] Comment on above: Performed By: #### C BC ####[address] Lymphocytes (Bld) [#/Vol] 1.8 10*3/uL 1.00-4.8 [facility] Comment on above: Performed By: #### C BC ####[place] [id number] [facility] Lymphocytes/100 WBC (Bld) 19.9 % . [facility] Comment on above: Performed By: #### C BC ####[place] [id number] [facility] MCH (RBC) [Entitic mass] 29.2 pg 24.7-34.3 [facility] Comment on above: Performed By: #### C BC ####[place] [id number] [facility] MCV (RBC) [Entitic vol] 83.3 fL 80-100 [facility] Comment on above: Performed By: #### C BC ####[address] Monocytes (Bld) [#/Vol] 0.7 10*3/uL 0.0-0.8 [facility] Comment on above: Performed By: #### C BC ####[address] Monocytes/100 WBC (Bld) 8.2 % . [facility] Comment on above: Performed By: #### C BC ####[address] Neutrophils (Bld) [#/Vol] 6.4 10*3/uL 1.8-7.7 [facility] Comment on above: Performed By: #### C BC ####[address] Neutrophils/100 WBC (Bld) 70.6 % . [facility] Comment on above: Performed By: #### C BC ####[address] Platelet mean volume (Bld) [Entitic vol] 9.0 fL 6.3-10.7 [facility] Comment on above: Performed By: #### C BC ####[address] Platelets (Bld) [#/Vol] 235 10*3/uL 150-450 [facility] Comment on above: Performed By: #### C BC ####[address] RBC (Bld) [#/Vol] 4.30 10*6/uL 3.60-5.00 [facility] Comment on above: Performed By: #### C BC ####[address] WBC (Bld) [#/Vol] 9.1 10*3/uL 3.8-11.6 [facility] Comment on above: Performed By: #### C BC ####[facility] Complete Blood Count Auto Di ffon 03-14-2025 Mean Corpuscular HGB Conc 35.1 g/dL High 32.0-35.0 [facility] Comment on above: Performed By: #### C BC ####[address] NRBC% 0.1 /100{WBC} Normal 0-0.5 [facility] Comment on above: Performed By: #### C BC ####[address] Eosinophils Auto (Bld) [#/Vo l]Ordered By: Yasmani Abdullahi on 03-14-2025 Eosinophils (Bld) [#/Vol] Automated eosinophil count 0.0-0.45 [facility] Eosinophils/100 WBC Auto (Bl d)Ordered By: Yasmani Abdullahi on 03-14-2025 Eosinophils/100 WBC (Bld) Automated eosinophil % . [facility] Erythrocyte distribution wid th Auto (RBC) [Ratio]Ordered By: Yasmani Abdullahi on 03-14-2025 Erythrocyte distribution width (RBC) [Ratio] Erythrocyte distribution width [Ratio] by Automated count 11.9-15.3 [facility] Hematocrit Auto (Bld) [Volum e fraction]Ordered By: Yasmani Abdullahi on 03-14-2025 Hematocrit (Bld) [Volume fraction] Hematocrit [Volume Fraction] of Blood by Automated count 34.0-46.4 [facility] Hemoglobin [Mass/volume] in BloodOrdered By: Yasmani Abdullahi on 03-14-2025 Hemoglobin (Bld) [Mass/Vol] Hemoglobin [Mass/volume] in Blood 11.8-15.4 [facility] Leukocytes [#/volume] correc randolph for nucleated erythrocytes in Blood by Automated counOrdered By: Yasmani Abdullahi on 03-14-2025 WBC corrected for nucl RBC Auto (Bld) [#/Vol] Leukocytes [#/volume] corrected for nucleated erythrocytes in Blood by Automated coun 3.8-11.6 [facility] WBC corrected for nucl RBC Auto (Bld) [#/Vol] 9.1 10*3/uL 3.8-11.6 [facility] Lymphocytes Auto (Bld) [#/Vo l]Ordered By: Yasmani Abdullahi on 03-14-2025 Lymphocytes (Bld) [#/Vol] Lymphocytes [#/volume] in Blood by Automated count 1.00-4.8 [facility] Lymphocytes/100 WBC Auto (Bl d)Ordered By: Yasmani Abdullahi on 03-14-2025 Lymphocytes/100 WBC (Bld) Lymphocytes/100 leukocytes in Blood by Automated count . [facility] MCH Auto (RBC) [Entitic mass ]Ordered By: Yasmani Abdullahi on 03-14-2025 MCH (RBC) [Entitic mass] MCH [Entitic mass] by Automated count 24.7-34.3 [facility] MCHC Auto (RBC) [Mass/Vol]Or dered By: Yasmani Abdullahi on 03-14-2025 MCHC (RBC) [Mass/Vol] MCHC [Mass/volume] by Automated count High 32.0-35.0 [facility] MCHC (RBC) [Mass/Vol] 35.1 g/dL High 32.0-35.0 [facility] MCV Auto (RBC) [Entitic vol] Ordered By: Yasmani Abdullahi on 03-14-2025 MCV (RBC) [Entitic vol] MCV [Entitic volume] by Automated count 80-100 [facility] Monocytes Auto (Bld) [#/Vol] Ordered By: Yasmani Abdullahi on 03-14-2025 Monocytes (Bld) [#/Vol] Automated blood monocyte count 0.0-0.8 [facility] Monocytes/100 WBC Auto (Bld) Ordered By: Yasmani Abdullahi on 03-14-2025 Monocytes/100 WBC (Bld) Automated monocyte % . [facility] Neutrophils Auto (Bld) [#/Vo l]Ordered By: Yasmani Abdullahi on 03-14-2025 Neutrophils (Bld) [#/Vol] Neutrophils [#/volume] in Blood by Automated count 1.8-7.7 [facility] Neutrophils/100 WBC Auto (Bl d)Ordered By: Yasmani Abdullahi on 03-14-2025 Neutrophils/100 WBC (Bld) Automated neutrophil % . [facility] Nucleated erythrocytes [Pres ence] in Blood by Automated countOrdered By: Yasmani Abdullahi on 03-14-2025 Nucleated RBC Auto Ql (Bld) Nucleated erythrocytes [Presence] in Blood by Automated count 0-0.5 [facility] Nucleated RBC Auto Ql (Bld) 0.1 /100{WBC} 0-0.5 [facility] Platelet mean volume Auto (B ld) [Entitic vol]Ordered By: Yasmani Abdullahi on 03-14-2025 Platelet mean volume (Bld) [Entitic vol] Platelet mean volume [Entitic volume] in Blood by Automated count 6.3-10.7 [facility] Platelets Auto (Bld) [#/Vol] Ordered By: Yasmani Abdullahi on 03-14-2025 Platelets (Bld) [#/Vol] Platelets [#/volume] in Blood by Automated count 150-450 [facility] RBC Auto (Bld) [#/Vol]Ordere d By: Yasmani Abdullahi on 03-14-2025 RBC (Bld) [#/Vol] Erythrocytes [#/volu me] in Blood by Automated count 3.60-5.00 [facility] WBC Auto (Bld) [#/Vol]Ordere d By: Yasmani Abdullahi on 03-14-2025 WBC (Bld) [#/Vol] Leukocytes [#/volume ] in Blood by Automated count 3.8-11.6 [facility] IGP,APTIMA HPV,AGE GDLNon AGE GDLN ACOG TESTING Note . [facility] Comment on above: TESTS RESULT FLAG UN ITS REF RANGE LAB Clinician Provided Cytology Information Source.............[employer] Other.............. No. of containers..01 ThinPrep Vial Age John PEREZ Gemma... 29 FLAG LEGEND: L-Low Normal,H-High Normal,LL-Alert Low,HH-Alert High <-Panic Low,>-Panic High,A-Abnormal,AA-Critical Abnormal Performed at: 01 =[address] [address] Azalea Quezada MD, HPV APTIMA Negative Negative [facility] Comment on above: This nucleic acid am plification test detects fourteen high- risk HPV types (16,18,31,33,35,39,45,51,52,56,58,59,66,68) without differentiation. Performed at: =[address] [id number] Pmp: Azalea Quezada MD, Phone: [phone] Performed at: [address] [id number] Pmp: Azalea Quezada MD, Phone: [phone] IGP, APTIMA HPV, RFX 16/18,45 Note . [facility] Comment on above: TESTS RESULT FLAG UN ITS REF RANGE LAB DIAGNOSIS: 02 NEGATIVE FOR INTRAEPITHELIAL LESION OR MALIGNANCY. Specimen adequacy: 02 Satisfactory for evaluation. No endocervical component is identified. An endocervical component is not commonly seen in the patient. Performed by: 02 Oli Martin Check Totaler ([facility]) . 02 Note: Note 02 The [...] <-Panic Low,>-Panic High,A-Abnormal,AA-Critical Abnormal Performed at: [address] [address] Azalea Quezada MD, SPATULA-ALONE [facility] RECURRENT VAGINITIS (HTRX)on 02-16-2025 ATOPOBIUM VAGINAE 0 [facility] ATOPOBIUM VAGINAE Not detected [facility] BVAB 2,3 (BACTERIAL VAGINOSIS ASSOCIATED BACTERIA 2, 3); MOBILUNCUS SPP 0 [facility] BVAB 2,3 (BACTERIAL VAGINOSIS ASSOCIATED BACTERIA 2, 3); MOBILUNCUS SPP Not detected [facility] JOHNNIE ALBICANS, PARAPSILOSIS, TROPICALIS 0 [facility] JOHNNIE ALBICANS, PARAPSILOSIS, TROPICALIS Not detected [facility] JOHNNIE GLABRATA 0 [facility] JOHNNIE GLABRATA Not detected [facility] JOHNNIE KRUSEI 0 [facility] JOHNNIE KRUSEI Not detected [facility] CHLAMYDIA TRACHOMATIS 0 [facility] CHLAMYDIA [...] 16+18+31+33+35+39+45+51+5 2+56+58+59+66+68 DNA [Presence] in Cer Negative [facility] Comment on above: This nucleic acid am plification test detects fourteen high- risk HPV types (16,18,31,33,35,39,45,51,52,56,58,59,66,68)without differentiation.Performed at: = - [address] [id number] Director: Azalea Quezada MD, Phone: [phone] at: [address] [id number] Director: Azalea Quezada MD, Phone: [phone] No Panel Informationon 02-15 HPV High Risk Other Comment Note . [facility] Comment on above: TESTS RESULT FLAG UN ITS REF RANGE LAB DIAGNOSIS: 02 NEGATIVE FOR INTRAEPITHELIAL LESION OR MALIGNANCY.Specimen adequacy: 02 Satisfactory for evaluation. No endocervical component is identified. An endocervical component is not commonly seen in the patient.Performed by: 02 Oli Martin Check Totaler ([facility]). 02Note: Note 02 The Pap smear is [...] High <-Panic Low,>-Panic High,A-Abnormal,AA-Critical Abnormal -----Performed at:[address] [address] Azalea Quezada MD, Reference Lab Test Patient Age Note . [facility] Comment on above: TESTS RESULT FLAG UN ITS REF RANGE LAB Clinician Provided Cytology Information Source.............[employer] Other.............. No. of containers..01 ThinPrep VialAge John PEREZ Gemma... 29 FLAG LEGEND: L-Low Normal,H-High Normal,LL-Alert Low,HH-Alert High <-Panic Low,>-Panic High,A-Abnormal,AA-Critical Abnormal -----Performed at:01 =[facility] [address] [facility] [place] [address] Azalea Quezada MD, Urinalysis macro (dipstick) panel (U)on 02-15-2025 Bilirubin, UA Negative Negative - 4(70) +++ mg/dL [facility] Blood, UA Negative Negative - 50 Tavon/mcL [facility] Clarity, UA Clear [facility] Color, UA Yellow [facility] Glucose, UA Positive Negative - 1999(110) ++++ mg/dL [facility] Comment on above: 100 Interpretation and review of laboratory results Abnormal [facility] Ketones, UA Negative Negative - 160(16) ++++ mg/dL [facility] Leukocytes, UA Negative Negative - 500+++ Bertha/mcL [facility] Nitrite, UA Negative Negative - Positive [facility] pH, UA 5.5 5 - 9 [facility] Protein, UA Negative Negative - 1999(20) ++++ mg/dL [facility] Spec Grav, UA 1.005 1 - 1.03 [facility] Urobilinogen, UA 0.2 0.2 - 12 mg/dL [facility] Urinalysis macro (dipstick) panel (U)on 01-18-2025 Bilirubin, UA Negative Negative - 4(70) +++ mg/dL [facility] Blood, UA Negative Negative - 50 Tavon/mcL [facility] Clarity, UA Clear [facility] Color, UA Yellow [facility] Glucose, UA Negative Negative - 1999(110) ++++ mg/dL [facility] Interpretation and review of laboratory results Abnormal [facility] Ketones, UA Negative Negative - 160(16) ++++ mg/dL [facility] Leukocytes, UA Negative Negative - 500+++ Bertha/mcL [facility] Nitrite, UA Negative Negative - Positive [facility] pH, UA 6 5 - 9 [facility] Protein, UA Negative Negative - 2000(20) ++++ mg/dL [facility] Spec Grav, UA 1.03 1 - 1.03 [facility] Urobilinogen, UA 0.2 0.2 - 12 mg/dL [facility] [facility] A1C with Estimated Average [place] 12-27-2024 Glucose [Mass/Vol] 103 mg/dL Normal [facility] Comment on above: Order Comment: NONFA STING.JKW Result Comment: PERF ORMED BY: [facility] [address] [place] [address] PATHOLOGIST BUSINESS PRACTICES SUPERVISOR LEÓN GARCIA M.D. Performed By: #### H CV RX PCR, RPR W RFX, RUBELLA IGG, HBSAG, HIV SCREEN ####[facility] ,#### CUU, A1C WT eA, CBC, URDS ####[place] [id number] [address] HbA1c (Bld) [Mass fraction] 5.2 % Normal 4.3-5.6 [facility] Comment on above: Order Comment: NONFA STING.JKW Result Comment: Incr eased risk for diabetes: 5.7 - 6.4 diabetes: >6.4 glycemic control for adults with diabetes: <7.0 Performed By: #### H CV RX PCR, RPR W RFX, RUBELLA IGG, HBSAG, HIV SCREEN ####[facility] ,#### CUU, A1C WT eA, CBC, URDS ####[address] Amphetamine Screen Ql (U)Ord ered By: Yasmani Abdullahi on 12-27-2024 Amphetamines Ql (U) Amphetamines screen Negativ e [facility] Barbiturates [Presence] in U rine by Screen methodOrdered By: Yasmani Abdullahi on 12-27-2024 Barbiturates Screen Ql (U) Barbiturates [Presence] in Urine by Screen method Negative [facility] Basophils Auto (Bld) [#/Vol] Ordered By: Yasmani Abdullahi on 12-27-2024 Basophils (Bld) [#/Vol] Automated basophil count 0.0-0.2 [facility] Basophils/100 WBC Auto (Bld) Ordered By: Yasmani Abdullahi on 12-27-2024 Basophils/100 WBC (Bld) Automated basophil % . [facility] Benzodiazepines Screen Ql (U )Ordered By: Yasmani Abdullahi on 12-27-2024 Benzodiazepines Ql (U) Benzodiazepines [Presence] in Urine by Screen method Negative [facility] Benzoylecgonine [Presence] i n Urine by Screen methodOrdered By: Yasmani Abdullahi on 12-27-2024 Benzoylecgonine Screen Ql (U) Benzoylecgonine [Presence] in Urine by Screen method Negative [facility] Blood estimated average gluc ose determination by estimation from glycated hemoglobinOrdered By: Yasmani Abdullahi on 12-27-2024 Average glucose Estimated from glycated hemoglobin (Bld) [Mass/Vol] Glucose mean value [Mass/volume] in Blood Estimated from glycated hemoglobin [facility] Cannabinoids [Presence] in U rine by Screen methodOrdered By: Yasmani Abdullahi on 12-27-2024 Cannabinoids Screen Ql (U) Cannabinoids [Presence] in Urine by Screen method Negative [facility] Comment on above: These are unconfirme d results and should not be used for legal purposes. Drug Cut-Off Concentration: AMPH 1000 ng/mL ABELARDO 200 ng/mL JESSE 200 ng/mL COCM 300 ng/mL OP 300 ng/mL PCP 25 ng/mL THC 20 ng/mL Complete Blood Count Auto Di ffon 12-27-2024 Basophils (Bld) [#/Vol] 0.0 10*3/uL Normal 0.0-0.2 [facility] Comment on above: Order Comment: NONFA STING.JKW Result Comment: PERF ORMED BY: [facility] [address] [place] [address] PATHOLOGIST BUSINESS PRACTICES SUPERVISOR LÓEN GARCIA M.D. Performed By: #### H CV RX PCR, RPR W RFX, RUBELLA IGG, HBSAG, HIV SCREEN #### [facility] , #### CUU, A1C WTH eA, CBC, URDS #### [address] Basophils/100 WBC (Bld) 0.6 % Normal . [facility] Comment on above: Order Comment: NONFA STING.JKW Performed By: #### H CV RX PCR, RPR W RFX, RUBELLA IGG, HBSAG, HIV SCREEN #### [facility] , #### CUU, A1C WTH eA, CBC, URDS #### [address] Eosinophils (Bld) [#/Vol] 0.1 10*3/uL Normal 0.0-0.45 [facility] Comment on above: Order Comment: NONFA STING.JKW Performed By: #### H CV RX PCR, RPR W RFX, RUBELLA IGG, HBSAG, HIV SCREEN #### [facility] , #### CUU, A1C WTH eA, CBC, URDS #### [address] Eosinophils/100 WBC (Bld) 1.7 % Normal . [facility] Comment on above: Order Comment: NONFA STING.JKW Performed By: #### H CV RX PCR, RPR W RFX, RUBELLA IGG, HBSAG, HIV SCREEN #### [facility] , #### CUU, A1C WTH eA, CBC, URDS #### [address] Erythrocyte distribution width (RBC) [Ratio] 13.7 % Normal 11.9-15.3 [facility] Comment on above: Order Comment: NONFA STING.JKW Performed By: #### H CV RX PCR, RPR W RFX, RUBELLA IGG, HBSAG, HIV SCREEN #### [facility] , #### CUU, A1C WTH eA, CBC, URDS #### [address] Hematocrit (Bld) [Volume fraction] 38.2 % Normal 34.0-46.4 [facility] Comment on above: Order Comment: NONFA STING.JKW Performed By: #### H CV RX PCR, RPR W RFX, RUBELLA IGG, HBSAG, HIV SCREEN #### [facility] , #### CUU, A1C WTH eA, CBC, URDS #### [address] Hemoglobin (Bld) [Mass/Vol] 13.0 g/dL Normal 11.8-15.4 [facility] Comment on above: Order Comment: NONFA STING.JKW Performed By: #### H CV RX PCR, RPR W RFX, RUBELLA IGG, HBSAG, HIV SCREEN #### [facility] , #### CUU, A1C WTH eA, CBC, URDS #### [place] [address] [place] Lymphocytes (Bld) [#/Vol] 1.2 10*3/uL Normal 1.00-4.8 [facility] Comment on above: Order Comment: NONFA STING.JKW Performed By: #### H CV RX PCR, RPR W RFX, RUBELLA IGG, HBSAG, HIV SCREEN #### [facility] , #### CUU, A1C WTH eA, CBC, URDS #### [place] [address] [place] Lymphocytes/100 WBC (Bld) 19.5 % Normal . [facility] Comment on above: Order Comment: NONFA STING.JKW Performed By: #### H CV RX PCR, RPR W RFX, RUBELLA IGG, HBSAG, HIV SCREEN #### [facility] , #### CUU, A1C WTH eA, CBC, URDS #### [address] MCH (RBC) [Entitic mass] 27.8 pg Normal 24.7-34.3 [facility] Comment on above: Order Comment: NONFA STING.JKW Performed By: #### H CV RX PCR, RPR W RFX, RUBELLA IGG, HBSAG, HIV SCREEN #### [facility] , #### CUU, A1C WTH eA, CBC, URDS #### [address] MCV (RBC) [Entitic vol] 81.5 fL Normal 80-100 [facility] Comment on above: Order Comment: NONFA STING.JKW Performed By: #### H CV RX PCR, RPR W RFX, RUBELLA IGG, HBSAG, HIV SCREEN #### [facility] , #### CUU, A1C WTH eA, CBC, URDS #### [address] Mean Corpuscular HGB Conc 34.1 g/dL Normal 32.0-35.0 [facility] Comment on above: Order Comment: NONFA STING.JKW Performed By: #### H CV RX PCR, RPR W RFX, RUBELLA IGG, HBSAG, HIV SCREEN #### [facility] , #### CUU, A1C WTH eA, CBC, URDS #### [address] Monocytes (Bld) [#/Vol] 0.4 10*3/uL Normal 0.0-0.8 [facility] Comment on above: Order Comment: NONFA STING.JKW Performed By: #### H CV RX PCR, RPR W RFX, RUBELLA IGG, HBSAG, HIV SCREEN #### [facility] , #### CUU, A1C WTH eA, CBC, URDS #### [address] Monocytes/100 WBC (Bld) 6.7 % Normal . [facility] Comment on above: Order Comment: NONFA STING.JKW Performed By: #### H CV RX PCR, RPR W RFX, RUBELLA IGG, HBSAG, HIV SCREEN #### [facility] , #### CUU, A1C WTH eA, CBC, URDS #### [address] Neutrophils (Bld) [#/Vol] 4.5 10*3/uL Normal 1.8-7.7 [facility] Comment on above: Order Comment: NONFA STING.JKW Performed By: #### H CV RX PCR, RPR W RFX, RUBELLA IGG, HBSAG, HIV SCREEN #### [facility] , #### CUU, A1C WTH eA, CBC, URDS #### [address] Neutrophils/100 WBC (Bld) 71.5 % Normal . [facility] Comment on above: Order Comment: NONFA STING.JKW Performed By: #### H CV RX PCR, RPR W RFX, RUBELLA IGG, HBSAG, HIV SCREEN #### [facility] , #### CUU, A1C WTH eA, CBC, URDS #### [address] NRBC% 0.0 /100{WBC} Normal 0-0.5 [facility] Comment on above: Order Comment: NONFA STING.JKW Performed By: #### H CV RX PCR, RPR W RFX, RUBELLA IGG, HBSAG, HIV SCREEN #### [facility] , #### CUU, A1C WTH eA, CBC, URDS #### [address] Platelet mean volume (Bld) [Entitic vol] 8.8 fL Normal 6.3-10.7 [facility] Comment on above: Order Comment: NONFA STING.JKW Performed By: #### H CV RX PCR, RPR W RFX, RUBELLA IGG, HBSAG, HIV SCREEN #### [facility] , #### CUU, A1C WTH eA, CBC, URDS #### [facility] [address] Platelets (Bld) [#/Vol] 225 10*3/uL Normal 150-450 [facility] Comment on above: Order Comment: NONFA STING.JKW Performed By: #### H CV RX PCR, RPR W RFX, RUBELLA IGG, HBSAG, HIV SCREEN #### [facility] , #### CUU, A1C WTH eA, CBC, URDS #### [facility] [address] [place] [id number] [facility] RBC (Bld) [#/Vol] 4.69 10*6/uL Normal 3.60-5.[address] [facility] Comment on above: Order Comment: NONFA STING.JKW Performed By: #### H CV RX PCR, RPR W RFX, RUBELLA IGG, HBSAG, HIV SCREEN #### [facility] , #### CUU, A1C WTH eA, CBC, URDS #### [address] WBC (Bld) [#/Vol] 6.4 10*3/uL Normal 3.8-11.6 [facility] Comment on above: Order Comment: NONFA STING.JKW Performed By: #### H CV RX PCR, RPR W RFX, RUBELLA IGG, HBSAG, HIV SCREEN #### [facility] , #### CUU, A1C WTH eA, CBC, URDS #### [address] Drug Screen,Urineon 12-28-19 25 Amphetamine Screen,Urine Negative Normal Negative [facility] Comment on above: Order Comment: NONFA STING.JKW Performed By: #### H CV RX PCR, RPR W RFX, RUBELLA IGG, HBSAG, HIV SCREEN ####[facility] ,#### CUU, A1C WTH eA, CBC, URDS ####[address] Barbiturate Screen,Urine Negative Normal Negative [facility] Comment on above: Order Comment: NONFA STING.JKW Performed By: #### H CV RX PCR, RPR W RFX, RUBELLA IGG, HBSAG, HIV SCREEN ####[facility] ,#### CUU, A1C WTH eA, CBC, URDS ####[address] Benzodiazepines Screen,Urine Negative Normal Negative [facility] Comment on above: Order Comment: NONFA STING.JKW Performed By: #### H CV RX PCR, RPR W RFX, RUBELLA IGG, HBSAG, HIV SCREEN ####[facility] ,#### CUU, A1C WTH eA, CBC, URDS ####[address] Cannabinoid Screen,Urine Negative Normal Negative [facility] Comment on above: Order Comment: NONFA STING.JKW Result Comment: Thes e are unconfirmed results and should not be used for legal purposes. Drug Cut-Off Concentration: AMPH 1000 ng/mL ABELARDO 200 ng/mL JESSE 200 ng/mL COCM 300 ng/mL OP 300 ng/mL PCP 25 ng/mL THC 20 ng/mL PERFORMED BY: [facility] [address] [place] [address] PATHOLOGIST BUSINESS PRACTICES SUPERVISOR LEÓN GARCIA M.D. Performed By: #### H CV RX PCR, RPR W RFX, RUBELLA IGG, HBSAG, HIV SCREEN ####[facility] ,#### CUU, A1C WTH eA, CBC, URDS ####[address] Cocaine Screen,Urine Negative Normal Negative [facility] Comment on above: Order Comment: NONFA STING.JKW Performed By: #### H CV RX PCR, RPR W RFX, RUBELLA IGG, HBSAG, HIV SCREEN ####[facility] ,#### CUU, A1C WTH eA, CBC, URDS ####[facility] Opiate Screen,Urine Negative Normal Negative [facility] Comment on above: Order Comment: NONFA STING.JKW Performed By: #### H CV RX PCR, RPR W RFX, RUBELLA IGG, HBSAG, HIV SCREEN ####[facility] ,#### CUU, A1C WTH eA, CBC, URDS ####[place] [id number] [address] Phencyclidine Screen,Urine Negative Normal Negative [facility] Comment on above: Order Comment: NONFA STING.JKW Performed By: #### H CV RX PCR, RPR W RFX, RUBELLA IGG, HBSAG, HIV SCREEN ####[facility] ,#### CUU, A1C WTH eA, CBC, URDS ####[facility] [place] [id number] [facility] Eosinophils Auto (Bld) [#/Vo l]Ordered By: Yasmani Abdullahi on 12-27-2024 Eosinophils (Bld) [#/Vol] Automated eosinophil count 0.0-0.45 [facility] Eosinophils/100 WBC Auto (Bl d)Ordered By: Yasmani Abdullahi on 12-27-2024 Eosinophils/100 WBC (Bld) Automated eosinophil % . [facility] Erythrocyte distribution wid th Auto (RBC) [Ratio]Ordered By: Yasmani Abdullahi on 12-27-2024 Erythrocyte distribution width (RBC) [Ratio] Erythrocyte distribution width [Ratio] by Automated count 11.9-15.3 [facility] HIV 1/O/2 Antigen/Antibodyon 12-27-2024 HIV Screen 4th Generation Non-Reactive Normal Non Reactive [facility] Comment on above: Order Comment: NONFA STING.JKW Result Comment: HIV- 1/HIV-2 antibodies and HIV-1 p24 antigen were NOT detected. There is no laboratory evidence of HIV infection. HIV Negative Performed at: [facility] - [address] [id number] Pmp: Garfield Fay PhD, Phone: [phone] Performed By: #### H CV RX PCR, RPR W RFX, RUBELLA IGG, HBSAG, HIV SCREEN ####[facility] ,#### CUU, A1C WTH eA, CBC, URDS ####[facility] [id number] HIV antibody and antigen nails elOrdered By: Yasmani Abdullahi on 12-27-2024 HIV 1+2 Ab+HIV1 p24 Ag IA Ql HIV 1 and HIV-2 antibody assay with HIV-1 p24 antigen detection Non Reactive [facility] Comment on above: HIV-1/HIV-2 antibodi es and HIV-1 p24 antigen were NOTdetected. There is no laboratory evidence of HIV infection.HIV NegativePerformed at: [address] [id number] Director: Garfield Fay PhD, Phone: [phone] Hematocrit Auto (Bld) [Volum e fraction]Ordered By: Yasmani Abdullahi on 12-27-2024 Hematocrit (Bld) [Volume fraction] Hematocrit [Volume Fraction] of Blood by Automated count 34.0-46.4 [facility] Hemoglobin A1c/Hemoglobin.to dylan in BloodOrdered By: Yasmani Abdullahi on 12-27-2024 HbA1c (Bld) [Mass fraction] Hemoglobin A1c percentage 4.3-5.6 [facility] Comment on above: Increased risk for d iabetes: 5.7 - 6.4diabetes: >6.4glycemic control for adults with diabetes: <7.0 Hemoglobin [Mass/volume] in BloodOrdered By: Yasmani Abdullahi on 12-27-2024 Hemoglobin (Bld) [Mass/Vol] Hemoglobin [Mass/volume] in Blood 11.8-15.4 [facility] Hep C Ab wRfx to Qnt PCRon 0 12-27-2024 Hepatitis C Virus Antibody Non-Reactive Normal Non Reactive [facility] Comment on above: Order Comment: NONFA STING.JKW Performed By: #### H CV RX PCR, RPR W RFX, RUBELLA IGG, HBSAG, HIV SCREEN ####[facility] ,#### CUU, A1C WTH eA, CBC, URDS ####[place] [id number] [address] Interpretation Hepatitis C Comment Normal . [facility] Comment on above: Order Comment: NONFA STING.JKW Result Comment: Not infected with HCV unless early or acute infection is suspected (which may be delayed in an immunocompromised individual), or other evidence exists to indicate HCV infection. Performed By: #### H CV RX PCR, RPR W RFX, RUBELLA IGG, HBSAG, HIV SCREEN ####[facility] ,#### CUU, A1C WTH eA, CBC, URDS ####[address] Hepatitis B Surface Antigeno n 12-27-2024 HBsAg Screen Negative Normal Negative [facility] Comment on above: Order Comment: NONFA STING.JKW Result Comment: Perf ormed at: - [facility] [place] [id number] Pmp: Garfield Fay PhD, Phone: [phone] PERFORMED BY: [facility] [address] [place] [address] PATHOLOGIST BUSINESS PRACTICES SUPERVISOR LEÓN GARCIA M.D. Performed By: #### H CV RX PCR, RPR W RFX, RUBELLA IGG, HBSAG, HIV SCREEN ####[facility] ,#### CUU, A1C WTH eA, CBC, URDS ####[address] Hepatitis C virus IgG Ab [Pr esence] in Serum or Plasma by ImmunoassayOrdered By: Yasmani Abdullahi on 12-27-2024 HCV IgG IA Ql Hepatitis C virus Ig G Ab [Presence] in Serum or Plasma by Immunoassay Non Reactive [facility] Leukocytes [#/volume] correc randolph for nucleated erythrocytes in Blood by Automated counOrdered By: Yasmani Abdullahi on 12-27-2024 WBC corrected for nucl RBC Auto (Bld) [#/Vol] Leukocytes [#/volume] corrected for nucleated erythrocytes in Blood by Automated coun 3.8-11.6 [facility] Lymphocytes Auto (Bld) [#/Vo l]Ordered By: Yasmani Abdullahi on 12-27-2024 Lymphocytes (Bld) [#/Vol] Lymphocytes [#/volume] in Blood by Automated count 1.00-4.8 [facility] Lymphocytes/100 WBC Auto (Bl d)Ordered By: Yasmani Abdullahi on 12-27-2024 Lymphocytes/100 WBC (Bld) Lymphocytes/100 leukocytes in Blood by Automated count . [facility] MCH Auto (RBC) [Entitic mass ]Ordered By: Yasmani Abdullahi on 12-27-2024 MCH (RBC) [Entitic mass] MCH [Entitic mass] by Automated count 24.7-34.3 [facility] MCHC Auto (RBC) [Mass/Vol]Or dered By: Yasmani Abdullahi on 12-27-2024 MCHC (RBC) [Mass/Vol] MCHC [Mass/volume] by Automated count 32.0-35.0 [facility] MCV Auto (RBC) [Entitic vol] Ordered By: Yasmani Abdullahi on 12-27-2024 MCV (RBC) [Entitic vol] MCV [Entitic volume] by Automated count 80-100 [facility] Monocytes Auto (Bld) [#/Vol] Ordered By: Yasmani Abdullahi on 12-27-2024 Monocytes (Bld) [#/Vol] Automated blood monocyte count 0.0-0.8 [facility] Monocytes/100 WBC Auto (Bld) Ordered By: Yasmani Abdullahi on 12-27-2024 Monocytes/100 WBC (Bld) Automated monocyte % . [facility] Neutrophils Auto (Bld) [#/Vo l]Ordered By: Yasmani Abdullahi on 12-27-2024 Neutrophils (Bld) [#/Vol] Neutrophils [#/volume] in Blood by Automated count 1.8-7.7 [facility] Neutrophils/100 WBC Auto (Bl d)Ordered By: Yasmani Abdullahi on 12-27-2024 Neutrophils/100 WBC (Bld) Automated neutrophil % . [facility] No Panel InformationOrdered By: Yasmani Abdullahi on 12-27-2024 Hepatitis C Interpretation Comment . [facility] Comment on above: Not infected with HC V unless early or acute infection issuspected (which may be delayed in an immunocompromisedindividual), or other evidence exists to indicate HCVinfection. Nucleated erythrocytes [Pres ence] in Blood by Automated countOrdered By: Yasmani Abdullahi on 12-27-2024 Nucleated RBC Auto Ql (Bld) Nucleated erythrocytes [Presence] in Blood by Automated count 0-0.5 [facility] Opiates [Presence] in Urine by Screen methodOrdered By: Yasmani Abdullahi on 12-27-2024 Opiates Screen Ql (U) Opiates [Presence] in Urine by Screen method Negative [facility] Phencyclidine Screen Ql (U)O rdered By: Yasmani Abdullahi on 12-27-2024 Phencyclidine Ql (U) Phencyclidine [Pres ence] in Urine by Screen method Negative [facility] Platelet mean volume Auto (B ld) [Entitic vol]Ordered By: Yasmani Abdullahi on 12-27-2024 Platelet mean volume (Bld) [Entitic vol] Platelet mean volume [Entitic volume] in Blood by Automated count 6.3-10.7 [facility] Platelets Auto (Bld) [#/Vol] Ordered By: Yasmani Abdullahi on 12-27-2024 Platelets (Bld) [#/Vol] Platelets [#/volume] in Blood by Automated count 150-450 [facility] RBC Auto (Bld) [#/Vol]Ordere d By: Yasmani Abdullahi on 12-27-2024 RBC (Bld) [#/Vol] Erythrocytes [#/volu me] in Blood by Automated count 3.60-5.00 [facility] RPR w/rfx to Quant TP Abson 12-27-2024 RPR, Rfx Quant RPR Non-Reactive Normal Non Reactive [facility] Comment on above: Order Comment: NONFA STING.JKW Result Comment: Perf ormed at: - [facility] [address] [id number] Pmp: Garfield Fay PhD, Phone: [phone] PERFORMED BY: [facility] [address] [place] [address] PATHOLOGIST BUSINESS PRACTICES SUPERVISOR LEÓN GARCIA M.D. Performed By: #### H CV RX PCR, RPR W RFX, RUBELLA IGG, HBSAG, HIV SCREEN ####[facility] ,#### CUU, A1C WTH eA, CBC, URDS ####[facility] [id number] [place] [id number] [facility] Rubella IgG Antibodyon 12-27 Rubella IgG Antibody 1.22 Normal Immune >0.99 [facility] Comment on above: Order Comment: NONFA STING.JKW Result Comment: Non- immune <0.90 Equivocal 0.90 - 0.99 Immune >0.99 Performed By: #### H CV RX PCR, RPR W RFX, RUBELLA IGG, HBSAG, HIV SCREEN ####[facility] ,#### CUU, A1C WTH eA, CBC, URDS ####[place] [id number] [address] Rubella IgG antibody assayOr dered By: Yasmani Abdullahi on 12-27-2024 Rubella IgG Antibody 1.22 index Immune >0.99 [facility] Comment on above: Non-immune <0.90 Equ ivocal 0.90 - 0.99 Immune >0.99 Serum RPR testOrdered By: Rishi Abdullahi on 12-27-2024 Reagin Ab RPR Ql (S) Reagin Ab [Presence ] in Serum by RPR Non Reactive [facility] Comment on above: Performed at: [address] [id number] Director: Garfield Fay PhD, Phone: [phone] Serum or plasma hepatitis B virus surface antigen detection by immunoassayOrdered By: Yasmani Abdlulahi on 12-27-2024 HBV surface Ag IA Ql Hepatitis B virus s urface Ag [Presence] in Serum or Plasma by Immunoassay Negative [facility] Comment on above: Performed at: [address] [id number] Director: Garfield Fay PhD, Phone: [phone] Type and Screenon 12-27-2024 ABO and Rh group Nom (Bld) Blood group B Rh(D) negative Normal [facility] Comment on above: Order Comment: NONFA STING.JKW Result Comment: PERF ORMED BY: [place] [address] PATHOLOGIST BUSINESS PRACTICES SUPERVISOR LEÓN GARCIA M.D. Urine Cultureon 12-27-2024 Bacteria identified Cx Nom (U) NONFASTING.JKW 15,000 colonies/ml mixed bacterial skin contaminants 2 Days PERFORMED BY: [place] [address] PATHOLOGIST BUSINESS PRACTICES SUPERVISOR LEÓN GARCIA M.D. Normal [facility] Comment on above: Performed By: #### H CV RX PCR, RPR W RFX, RUBELLA IGG, HBSAG, HIV SCREEN ####[facility] ,#### CUU, A1C WTH eA, CBC, URDS ####[facility] [id number] Urine cultureOrdered By: Paramjit Abdullahi on 12-27-2024 Bacteria identified Cx Nom (U) Urine culture [facility] WBC Auto (Bld) [#/Vol]Ordere d By: Yasmani Abdullahi on 12-27-2024 WBC (Bld) [#/Vol] Leukocytes [#/volume ] in Blood by Automated count 3.8-11.6 [facility] US OB TRANSVAGINALon 025 US OB TRANSVAGINAL [...] II, MD, PHD at 22-Dec-2024 08:23:50 AM [facility] Normal Not Available Comment on above: Order Comment: US OB TRANSVAGINAL No LMP recorded. Alanine aminotransferase [En zymatic activity/volume] in Serum or PlasmaOrdered By: Jose Forman on 12-06-2024 ALT [Catalytic activity/Vol] Alanine aminotransferase [Enzymatic activity/volume] in Serum or Plasma 7-52 [facility] Albumin [Mass/volume] in Ser um or Plasma by Bromocresol green (BCG) dye binding methoOrdered By: Jose Forman on 12-06-2024 Albumin BCG dye [Mass/Vol] Albumin [Mass/volume] in Serum or Plasma by Bromocresol green (BCG) dye binding metho 3.5-5.7 [facility] Alkaline phosphatase [Enzyma tic activity/volume] in Serum or PlasmaOrdered By: Jose Forman on 12-06-2024 ALP [Catalytic activity/Vol] Alkaline phosphatase [Enzymatic activity/volume] in Serum or Plasma 34-104 [facility] Appearance of UrineOrdered B y: Jose Forman on 12-06-2024 Appearance (U) Urine appearance Clear [facility] Aspartate aminotransferase [ Enzymatic activity/volume] in Serum or PlasmaOrdered By: Jose Forman on 12-06-2024 AST [Catalytic activity/Vol] Aspartate aminotransferase [Enzymatic activity/volume] in Serum or Plasma Low 13-39 [facility] Bacteria [Presence] in Urine by AutomatedOrdered By: Jose Forman on 12-06-2024 Bacteria Auto Ql (U) Bacteria [Presence] in Urine by Automated None Seen [facility] Basic Metabolic Panelon 11-18 Anion gap [Moles/Vol] 7.0 mmol/L Normal 6.0-15.0 [facility] Comment on above: Performed By: #### C BC, HCGQNT, LIPASE, PT, HS TROP, PTT, HEPATIC, BMP ####[place] [id number] [address] Calcium [Mass/Vol] 9.1 mg/dL Normal 8.6-10.3 The [facility] Comment on above: Performed By: #### C BC, HCGQNT, LIPASE, PT, HS TROP, PTT, HEPATIC, BMP ####[address] Chloride [Moles/Vol] 106 mmol/L Normal 98-107 [facility] Comment on above: Performed By: #### C BC, HCGQNT, LIPASE, PT, HS TROP, PTT, HEPATIC, BMP ####[address] CO2 [Moles/Vol] 24.6 mmol/L Normal 21.0-31.0 The [facility] Comment on above: Performed By: #### C BC, HCGQNT, LIPASE, PT, HS TROP, PTT, HEPATIC, BMP ####[address] Creatinine [Mass/Vol] 0.70 mg/dL Normal 0.60-1.20 [facility] Comment on above: Performed By: #### C BC, HCGQNT, LIPASE, PT, HS TROP, PTT, HEPATIC, BMP ####[place] [id number] [facility] Creatinine Clr Calc Pharmacy 129.71 Normal [facility] Comment on above: Performed By: #### C BC, HCGQNT, LIPASE, PT, HS TROP, PTT, HEPATIC, BMP ####[address] GFR/1.73 sq M.predicted MDRD (S/P/Bld) [Vol rate/Area] mL/min/{1.73_m2} Normal [facility] Comment on above: Performed By: #### C BC, HCGQNT, LIPASE, PT, HS TROP, PTT, HEPATIC, BMP ####[address] Glucose [Mass/Vol] 94 mg/dL Normal 70-100 [facility] Comment on above: Result Comment: [facility] Glucose Reference Range is dependent on time and content of last meal. Glucose of more than 200 mg/dL in a nonstressed, ambulatory subject supports the diagnosis of Diabetes Mellitus. ADA recommended reference range Performed By: #### C BC, HCGQNT, LIPASE, PT, HS TROP, PTT, HEPATIC, BMP ####[address] Potassium [Moles/Vol] 3.6 mmol/L Normal 3.5-5.1 [facility] Comment on above: Performed By: #### C BC, HCGQNT, LIPASE, PT, HS TROP, PTT, HEPATIC, BMP ####[address] Sodium [Moles/Vol] 134 mmol/L Low 136-145 [facility] Comment on above: Performed By: #### C BC, HCGQNT, LIPASE, PT, HS TROP, PTT, HEPATIC, BMP ####[address] Urea nitrogen [Mass/Vol] 9 mg/dL Normal 7-25 [facility] Comment on above: Performed By: #### C BC, HCGQNT, LIPASE, PT, HS TROP, PTT, HEPATIC, BMP ####[address] Basophils Auto (Bld) [#/Vol] Ordered By: Jose Forman on 12-06-2024 Basophils (Bld) [#/Vol] Automated basophil count 0.0-0.2 [facility] Basophils/100 WBC Auto (Bld) Ordered By: Jose Forman on 12-06-2024 Basophils/100 WBC (Bld) Automated basophil % . [facility] Bilirubin Test strip Ql (U)O rdered By: Jose Forman on 12-06-2024 Bilirubin Ql (U) Bilirubin.total [Presence] in Urine by Test strip Negative [facility] Bilirubin.direct [Mass/volum e] in Serum or PlasmaOrdered By: Jose Forman on 12-06-2024 Bilirubin.direct [Mass/Vol] Bilirubin.direct [Mass/volume] in Serum or Plasma 0.03-0.18 [facility] Bilirubin.total [Mass/volume ] in Serum or PlasmaOrdered By: Jose Forman on 12-06-2024 Bilirubin [Mass/Vol] Bilirubin.total [Mass/volume] in Serum or Plasma 0.3-1.0 [facility] Calcium [Mass/volume] in Ser um or PlasmaOrdered By: Jose Forman on 12-06-2024 Calcium [Mass/Vol] Calcium [Mass/volume ] in Serum or Plasma 8.6-10.3 [facility] Carbon dioxide, total [Moles /volume] in Serum or PlasmaOrdered By: Jose Forman 12-06-2024 CO2 [Moles/Vol] Carbon dioxide, tota l [Moles/volume] in Serum or Plasma 21.0-31.0 [facility] Chloride [Moles/volume] in S e[place] or PlasmaOrdered By: Jose Forman on 12-06-2024 Chloride [Moles/Vol] Chloride [Moles/vol ume] in Serum or Plasma 98-107 [facility] Choriogonadotropin.beta subu nit [Units/volume] in Serum or PlasmaOrdered By: Jose Forman on 12-06-2024 HCG.beta subunit Qn Choriogonadotropin.b eta subunit [Units/volume] in Serum or Plasma [facility] Comment on above: Approximate Approxim ate hCG Gestational Age Range (mIU/ml) (weeks)0.2-1 5-50 1-2 50-500 2-3 100-5,000 3-4 500-10,000 4-5 1,000-50,000 5-6 10,000-100,000 6-8 15,000-200,000 8-12 10,000-100,000 Color Auto (U)Ordered By: Edin Forman on 12-06-2024 Color (U) Color of Urine by Auto Yellow Fi [facility] Complete Blood Count Auto Di ffon 12-06-2024 Basophils (Bld) [#/Vol] 0.0 10*3/uL Normal 0.0-0.2 [facility] Comment on above: Result Comment: PERF ORMED BY: [facility] [address] [place] [address] PATHOLOGIST BUSINESS PRACTICES SUPERVISOR LEÓN GARCIA M.D. Performed By: #### C BC, HCGQNT, LIPASE, PT, HS TROP, PTT, HEPATIC, BMP ####[address] Basophils/100 WBC (Bld) 0.4 % Normal . [facility] Comment on above: Performed By: #### C BC, HCGQNT, LIPASE, PT, HS TROP, PTT, HEPATIC, BMP ####[address] Eosinophils (Bld) [#/Vol] 0.0 10*3/uL Normal 0.0-0.45 [facility] Comment on above: Performed By: #### C BC, HCGQNT, LIPASE, PT, HS TROP, PTT, HEPATIC, BMP ####[address] Eosinophils/100 WBC (Bld) 0.4 % Normal . [facility] Comment on above: Performed By: #### C BC, HCGQNT, LIPASE, PT, HS TROP, PTT, HEPATIC, BMP ####[address] Erythrocyte distribution width (RBC) [Ratio] 13.0 % Normal 11.9-15.3 [facility] Comment on above: Performed By: #### C BC, HCGQNT, LIPASE, PT, HS TROP, PTT, HEPATIC, BMP ####[address] Hematocrit (Bld) [Volume fraction] 38.5 % Normal 34.0-46.4 [facility] Comment on above: Performed By: #### C BC, HCGQNT, LIPASE, PT, HS TROP, PTT, HEPATIC, BMP ####[address] Hemoglobin (Bld) [Mass/Vol] 13.4 g/dL Normal 11.8-15.4 [facility] Comment on above: Performed By: #### C BC, HCGQNT, LIPASE, PT, HS TROP, PTT, HEPATIC, BMP ####[address] Lymphocytes (Bld) [#/Vol] 1.1 10*3/uL Normal 1.00-4.8 [facility] Comment on above: Performed By: #### C BC, HCGQNT, LIPASE, PT, HS TROP, PTT, HEPATIC, BMP ####[address] Lymphocytes/100 WBC (Bld) 14.1 % Normal . [facility] Comment on above: Performed By: #### C BC, HCGQNT, LIPASE, PT, HS TROP, PTT, HEPATIC, BMP ####[address] MCH (RBC) [Entitic mass] 27.6 pg Normal 24.7-34.3 [facility] Comment on above: Performed By: #### C BC, HCGQNT, LIPASE, PT, HS TROP, PTT, HEPATIC, BMP ####[address] MCV (RBC) [Entitic vol] 79.6 fL Low 80-100 [facility] Comment on above: Performed By: #### C BC, HCGQNT, LIPASE, PT, HS TROP, PTT, HEPATIC, BMP ####[address] Mean Corpuscular HGB Conc 34.7 g/dL Normal 32.0-35.0 [facility] Comment on above: Performed By: #### C BC, HCGQNT, LIPASE, PT, HS TROP, PTT, HEPATIC, BMP ####[address] Monocytes (Bld) [#/Vol] 0.5 10*3/uL Normal 0.0-0.8 [facility] Comment on above: Performed By: #### C BC, HCGQNT, LIPASE, PT, HS TROP, PTT, HEPATIC, BMP ####[address] Monocytes/100 WBC (Bld) 16.18 % Normal 0.00-20.00 [facility] Comment on above: Performed By: #### C BC, HCGQNT, LIPASE, PT, HS TROP, PTT, HEPATIC, BMP ####[address] Monocytes/100 WBC (Bld) 6.4 % Normal . [facility] Comment on above: Performed By: #### C BC, HCGQNT, LIPASE, PT, HS TROP, PTT, HEPATIC, BMP ####[address] Neutrophils (Bld) [#/Vol] 5.9 10*3/uL Normal 1.8-7.7 [facility] Comment on above: Performed By: #### C BC, HCGQNT, LIPASE, PT, HS TROP, PTT, HEPATIC, BMP ####[address] Neutrophils/100 WBC (Bld) 78.7 % Normal . [facility] Comment on above: Performed By: #### C BC, HCGQNT, LIPASE, PT, HS TROP, PTT, HEPATIC, BMP ####[address] NRBC% 0.0 /100{WBC} Normal 0-0.5 The [facility] Comment on above: Performed By: #### C BC, HCGQNT, LIPASE, PT, HS TROP, PTT, HEPATIC, BMP ####[facility] Platelet mean volume (Bld) [Entitic vol] 8.7 fL Normal 6.3-10.7 The [facility] Comment on above: Performed By: #### C BC, HCGQNT, LIPASE, PT, HS TROP, PTT, HEPATIC, BMP ####[facility] Platelets (Bld) [#/Vol] 230 10*3/uL Normal 150-450 [facility] Comment on above: Performed By: #### C BC, HCGQNT, LIPASE, PT, HS TROP, PTT, HEPATIC, BMP ####[facility] RBC (Bld) [#/Vol] 4.84 10*6/uL Normal 3.60-5.[address] [facility] Comment on above: Performed By: #### C BC, HCGQNT, LIPASE, PT, HS TROP, PTT, HEPATIC, BMP ####[facility] WBC (Bld) [#/Vol] 7.6 10*3/uL Normal 3.8-11.6 [facility] Comment on above: Performed By: #### C BC, HCGQNT, LIPASE, PT, HS TROP, PTT, HEPATIC, BMP ####[facility] Creatinine [Mass/volume] in Serum or PlasmaOrdered By: Jose Forman on 12-06-2024 Creatinine [Mass/Vol] Creatinine [Mass/v olume] in Serum or Plasma 0.60-1.20 [facility] Dipstick and Microscopicon 0 12-06-2024 Appearance (U) Clear Normal Clear The [facility] Comment on above: Order Comment: Name Collection Type:: Clean-Voided Midstream Performed By: #### U HCG, ADDONUAPLUS #### [facility] [address] Bacteria,Urine None Seen Normal None Seen [facility] Comment on above: Order Comment: Name Collection Type:: Clean-Voided Midstream Performed By: #### U HCG, ADDONUAPLUS #### [facility] [address] [place] [address] [place] Bilirubin,Urine Negative Normal Negative The [facility] Comment on above: Order Comment: Name Collection Type:: Clean-Voided Midstream Performed By: #### U HCG, ADDONUAPLUS #### [place] [address] [place] Color (U) Yellow Normal Yellow [facility] Comment on above: Order Comment: Name Collection Type:: Clean-Voided Midstream Performed By: #### U HCG, ADDONUAPLUS #### [address] Glucose Ql (U) Normal Normal Normal [facility] Comment on above: Order Comment: Name Collection Type:: Clean-Voided Midstream Performed By: #### U HCG, ADDONUAPLUS #### [place] [address] [place] Hyaline Casts,Urine None Normal 0-8 [facility] Comment on above: Order Comment: Name Collection Type:: Clean-Voided Midstream Performed By: #### U HCG, ADDONUAPLUS #### [address] Ketones Ql (U) 1+ High Negative [facility] Comment on above: Order Comment: Name Collection Type:: Clean-Voided Midstream Performed By: #### U HCG, ADDONUAPLUS #### [place] [address] [place] Leukocyte esterase Test strip Ql (U) Negative Normal Negative [facility] Comment on above: Order Comment: Name Collection Type:: Clean-Voided Midstream Performed By: #### U HCG, ADDONUAPLUS #### [place] [address] [place] Mucus,Urine Rare Normal [facility] Comment on above: Order Comment: Name Collection Type:: Clean-Voided Midstream Performed By: #### U HCG, ADDONUAPLUS #### [place] [address] [place] Nitrite,Urine Negative Normal Negative The [facility] Comment on above: Order Comment: Name Collection Type:: Clean-Voided Midstream Performed By: #### U HCG, ADDONUAPLUS #### [address] Occult Blood,Urine Negative Normal Negative [facility] Comment on above: Order Comment: Name Collection Type:: Clean-Voided Midstream Performed By: #### U HCG, ADDONUAPLUS #### [place] [address] [place] pH (U) 6.5 [pH] Normal 5.0-9.0 [facility] Comment on above: Order Comment: Name Collection Type:: Clean-Voided Midstream Performed By: #### U HCG, ADDONUAPLUS #### [place] [address] [place] Protein,Urine Trace High Negative The [facility] Comment on above: Order Comment: Name Collection Type:: Clean-Voided Midstream Performed By: #### U HCG, ADDONUAPLUS #### [place] [address] [place] RBC,Urine 1-2 Normal 0-4 [facility] Comment on above: Order Comment: Name Collection Type:: Clean-Voided Midstream Performed By: #### U HCG, ADDONUAPLUS #### [place] [address] [place] Specificy H[place],Urine 1.025 Normal 1.001-1.03 0 [facility] Comment on above: Order Comment: Name Collection Type:: Clean-Voided Midstream Performed By: #### U HCG, ADDONUAPLUS #### [place] [address] [place] Squamous Epithelial Cell,Urine 1-2 Normal 0-2 [facility] Comment on above: Order Comment: Name Collection Type:: Clean-Voided Midstream Performed By: #### U HCG, ADDONUAPLUS #### [address] [place] [address] [place] Urobilinogen,Urine Normal Normal Normal [facility] Comment on above: Order Comment: Name Collection Type:: Clean-Voided Midstream Performed By: #### U HCG, ADDONUAPLUS #### [facility] [address] WBC,Urine 1-2 Normal 0-4 [facility] Comment on above: Order Comment: Name Collection Type:: Clean-Voided Midstream Performed By: #### U HCG, ADDONUAPLUS #### [facility] [address] ECG 12 lead ECGon 12-06-2024 ECG 12 lead ECG [facility] [place] [address] [place] [address] Electrocardiograph Report Signed Patient: Noris Goetz MR#: [id number] 61 : 1990 Acct:[id number] Age/Sex: 34 / F ADM Date: 12/06/24 Loc: ER Room: Type: [facility] ER Attending Dr: Ordering Provider: [...] branch block Confirmed by Jose FORMAN DO ([id number]) on 12/06/2024 10:38:39 AM Referred By: Electronically Signed By: Jose FORMAN DO Transcribed By: MUS Signed By Jose Forman DO 0 12/06/24 1038 Normal [facility] Eosinophils Auto (Bld) [#/Vo l]Ordered By: Jose Forman on 12-06-2024 Eosinophils (Bld) [#/Vol] Automated eosinophil count 0.0-0.45 [facility] Eosinophils/100 WBC Auto (Bl d)Ordered By: Jose Forman on 12-06-2024 Eosinophils/100 WBC (Bld) Automated eosinophil % . [facility] Epithelial cells.squamous [# /area] in Urine sediment by Automated countOrdered By: Jose Forman on 12-06-2024 Epithelial cells.squamous Auto (Urine sed) [#/Area] Epithelial cells.squamous [#/area] in Urine sediment by Automated count 0-2 [facility] Erythrocyte distribution wid th Auto (RBC) [Ratio]Ordered By: Jose Forman on 12-06-2024 Erythrocyte distribution width (RBC) [Ratio] Erythrocyte distribution width [Ratio] by Automated count 11.9-15.3 [facility] Erythrocytes [#/area] in Uri ne sediment by Automated countOrdered By: Jose Forman on 12-06-2024 RBC Auto (Urine sed) [#/Area] Erythrocytes [#/area] in Urine sediment by Automated count 0-4 [facility] Globulin Calc (S) [Mass/Vol] Ordered By: Jose Forman on 12-06-2024 Globulin (S) [Mass/Vol] Serum globulin measurement by calculation (mass/volume) [facility] Glucose [Mass/volume] in Ser um or PlasmaOrdered By: Jose Forman on 12-06-2024 Glucose [Mass/Vol] Glucose [Mass/volume ] in Serum or Plasma 70-100 [facility] Comment on above: ADA recommended refe rence rangeRandom Glucose Reference Range is dependent on time and content of last meal. Glucose of more than 200 mg/dL in a nonstressed, ambulatory subject supports the diagnosis of Diabetes Mellitus. Glucose [Mass/volume] in Uri ne by Test stripOrdered By: Jose Forman on 12-06-2024 Glucose Test strip (U) [Mass/Vol] Glucose [Mass/volume] in Urine by Test strip Normal [facility] HCG ( test) IA.rapi d Ql (U)Ordered By: Jose Forman on 12-06-2024 HCG ( test) Ql (U) Urine human chorionic gonadotropin (hCG) detection by immunoassay High [facility] HCG,Quantitativeon HCG,Quantitative 909875.00 m[iU]/mL Normal [facility] Comment on above: Result Comment: Appr oximate Approximate hCG Gestational Age Range (mIU/ml) (weeks) 0.2-1 5-50 1-2 50-500 2-3 100-5,000 3-4 500-10,000 4-5 1,000-50,000 5-6 10,000-100,000 6-8 15,000-200,000 8-12 10,000-100,000 PERFORMED BY: [place] [address] PATHOLOGIST BUSINESS PRACTICES SUPERVISOR LEÓN GARCIA M.D. Performed By: #### C BC, HCGQNT, LIPASE, PT, HS TROP, PTT, HEPATIC, BMP ####[place] [id number] [address] HCG,Urineon 12-06-2024 Beta HCG ( test) Ql (U) Positive [facility] Comment on above: Order Comment: Name Collection Type:: Clean-Voided Midstream Result Comment: PERF ORMED BY: [place] [address] PATHOLOGIST BUSINESS PRACTICES SUPERVISOR LEÓN GARCIA M.D. Performed By: #### U HCG, ADDONUAPLUS #### [facility] [address] [place] [address] Hematocrit Auto (Bld) [Volum e fraction]Ordered By: Jose Forman on 12-06-2024 Hematocrit (Bld) [Volume fraction] Hematocrit [Volume Fraction] of Blood by Automated count 34.0-46.4 [facility] Hemoglobin Test strip Ql (U) Ordered By: Jose Forman on 12-06-2024 Hemoglobin Ql (U) Hemoglobin [Presence ] in Urine by Test strip Negative [facility] Hemoglobin [Mass/volume] in BloodOrdered By: Jose Forman on 12-06-2024 Hemoglobin (Bld) [Mass/Vol] Hemoglobin [Mass/volume] in Blood 11.8-15.4 [facility] Hepatic Panelon 12-06-2024 Albumin [Mass/Vol] 4.1 g/dL Normal 3.5-5.7 [facility] Comment on above: Performed By: #### C BC, HCGQNT, LIPASE, PT, HS TROP, PTT, HEPATIC, BMP ####[place] [address] Albumin/Globulin [Mass ratio] 1.6 {ratio} Normal [facility] Comment on above: Performed By: #### C BC, HCGQNT, LIPASE, PT, HS TROP, PTT, HEPATIC, BMP ####[address] ALP [Catalytic activity/Vol] 47 U/L Normal 34-104 [facility] Comment on above: Performed By: #### C BC, HCGQNT, LIPASE, PT, HS TROP, PTT, HEPATIC, BMP ####[address] ALT [Catalytic activity/Vol] 11 U/L Normal 7-52 [facility] Comment on above: Performed By: #### C BC, HCGQNT, LIPASE, PT, HS TROP, PTT, HEPATIC, BMP ####[address] AST [Catalytic activity/Vol] 12 U/L Low 13-39 [facility] Comment on above: Performed By: #### C BC, HCGQNT, LIPASE, PT, HS TROP, PTT, HEPATIC, BMP ####[address] Bilirubin [Mass/Vol] 0.5 mg/dL Normal 0.3-1.0 [facility] Comment on above: Performed By: #### C BC, HCGQNT, LIPASE, PT, HS TROP, PTT, HEPATIC, BMP ####[address] Bilirubin,Indirect 0.4 mg/dL Normal [facility] Comment on above: Performed By: #### C BC, HCGQNT, LIPASE, PT, HS TROP, PTT, HEPATIC, BMP ####[address] Bilirubin.indirect [Mass/Vol] 0.10 mg/dL Normal 0.03-0.18 [facility] Comment on above: Performed By: #### C BC, HCGQNT, LIPASE, PT, HS TROP, PTT, HEPATIC, BMP ####[facility] [id number] [place] [address] [facility] Globulin (S) [Mass/Vol] 2.6 g/dL Normal [facility] Comment on above: Performed By: #### C BC, HCGQNT, LIPASE, PT, HS TROP, PTT, HEPATIC, BMP ####[facility]1111 [place] [id number] [facility] Protein [Mass/Vol] 6.7 g/dL Normal 6.4-8.9 [facility] Comment on above: Performed By: #### C BC, HCGQNT, LIPASE, PT, HS TROP, PTT, HEPATIC, BMP ####[facility]1111 [place] [id number] [facility] Hyaline casts [#/area] in Ur ine sediment by Automated countOrdered By: Jose Forman on 12-06-2024 Hyaline casts Auto (Urine sed) [#/Area] Hyaline casts [#/area] in Urine sediment by Automated count 0-8 [facility] INR in Platelet poor plasma by Coagulation assayOrdered By: Jose Forman on 12-06-2024 INR Coag (PPP) [Relative time] INR in Platelet poor plasma by Coagulation assay [facility] Comment on above: INR Therapeutic Rang e [...] n Urine by Test strip High Negative [facility] Leukocyte esterase [Presence ] in Urine by Test stripOrdered By: Jose Forman on 12-06-2024 Leukocyte esterase Test strip Ql (U) Leukocyte esterase [Presence] in Urine by Test strip Negative [facility] Leukocytes [#/area] in Urine sediment by Automated countOrdered By: Jose Forman on 12-06-2024 WBC Auto (Urine sed) [#/Area] Leukocytes [#/area] in Urine sediment by Automated count 0-4 [facility] Leukocytes [#/volume] correc randolph for nucleated erythrocytes in Blood by Automated counOrdered By: Jose Forman on 12-06-2024 WBC corrected for nucl RBC Auto (Bld) [#/Vol] Leukocytes [#/volume] corrected for nucleated erythrocytes in Blood by Automated coun 3.8-11.6 [facility] Lipaseon 12-06-2024 Lipase [Catalytic activity/Vol] 11.0 U/L Normal 11.0-82.0 [facility] Comment on above: Performed By: #### C BC, HCGQNT, LIPASE, PT, HS TROP, PTT, HEPATIC, BMP ####[facility] [id number] [place] [address] [facility] Lipase [Enzymatic activity/v olume] in Serum or PlasmaOrdered By: Jose Forman on 12-06-2024 Lipase [Catalytic activity/Vol] Lipase [Enzymatic activity/volume] in Serum or Plasma 11.0-82.0 [facility] Lymphocytes Auto (Bld) [#/Vo l]Ordered By: Jose Forman on 12-06-2024 Lymphocytes (Bld) [#/Vol] Lymphocytes [#/volume] in Blood by Automated count 1.00-4.8 [facility] Lymphocytes/100 WBC Auto (Bl d)Ordered By: Jose Forman on 12-06-2024 Lymphocytes/100 WBC (Bld) Lymphocytes/100 leukocytes in Blood by Automated count . [facility] MCH Auto (RBC) [Entitic mass ]Ordered By: Jose Forman on 12-06-2024 MCH (RBC) [Entitic mass] MCH [Entitic mass] by Automated count 24.7-34.3 [facility] MCHC Auto (RBC) [Mass/Vol]Or dered By: Jose Forman on 12-06-2024 MCHC (RBC) [Mass/Vol] MCHC [Mass/volume] by Automated count 32.0-35.0 [facility] MCV Auto (RBC) [Entitic vol] Ordered By: Jose Forman on 12-06-2024 MCV (RBC) [Entitic vol] MCV [Entitic volume] by Automated count Low 80-100 [facility] Monocyte distribution width [Entitic volume] in Blood by AutomatedOrdered By: Jose Forman on 12-06-2024 Monocyte distribution width Auto (Bld) [Entitic vol] Monocyte distribution width [Entitic volume] in Blood by Automated 0.00-20.00 [facility] Monocytes Auto (Bld) [#/Vol] Ordered By: Jose Forman on 12-06-2024 Monocytes (Bld) [#/Vol] Automated blood monocyte count 0.0-0.8 [facility] Monocytes/100 WBC Auto (Bld) Ordered By: Jose Forman on 12-06-2024 Monocytes/100 WBC (Bld) Automated monocyte % . [facility] Mucus [Presence] in Urine by AutomatedOrdered By: Jose Forman on 12-06-2024 Mucus Auto Ql (U) Mucus [Presence] in Urine by Automated [facility] Neutrophils Auto (Bld) [#/Vo l]Ordered By: Jose Forman on 12-06-2024 Neutrophils (Bld) [#/Vol] Neutrophils [#/volume] in Blood by Automated count 1.8-7.7 [facility] Neutrophils/100 WBC Auto (Bl d)Ordered By: Jose Forman on 12-06-2024 Neutrophils/100 WBC (Bld) Automated neutrophil % . [facility] Nitrite Test strip Ql (U)Ord ered By: Jose Forman on 12-06-2024 Nitrite Ql (U) Nitrite [Presence] i n Urine by Test strip Negative [facility] No Panel InformationOrdered By: Jose Forman on 12-06-2024 Estimated GFR (CKD-EPI) > 60.0 mL/Min [facility] Creatinine Clearance (Chem 129.71 [facility] Nucleated erythrocytes [Pres ence] in Blood by Automated countOrdered By: Jose Forman on 12-06-2024 Nucleated RBC Auto Ql (Bld) Nucleated erythrocytes [Presence] in Blood by Automated count 0-0.5 [facility] Partial Thromboplastin Timeo n 12-06-2024 aPTT Coag (Bld) [Time] 28.1 s Normal 25.1-36.5 [facility] Comment on above: Result Comment: A he matocrit value greater than 55% may lead to inaccurate results in coagulation testing. Patients having hematocrit values >55% require a special collection tube for coagulation studies. Please contact the laboratory at [phone] for redraw instructions. PERFORMED BY: [facility] [address] [place] [address] PATHOLOGIST BUSINESS PRACTICES SUPERVISOR LEÓN GARCIA M.D. Performed By: #### C BC, HCGQNT, LIPASE, PT, HS TROP, PTT, HEPATIC, BMP ####[facility] [id number] [place] [address] [facility] Platelet mean volume Auto (B ld) [Entitic vol]Ordered By: Jose Forman on 12-06-2024 Platelet mean volume (Bld) [Entitic vol] Platelet mean volume [Entitic volume] in Blood by Automated count 6.3-10.7 [facility] Platelets Auto (Bld) [#/Vol] Ordered By: Jose Forman on 12-06-2024 Platelets (Bld) [#/Vol] Platelets [#/volume] in Blood by Automated count 150-450 [facility] Potassium [Moles/volume] in Serum or PlasmaOrdered By: Jose Forman on 12-06-2024 Potassium [Moles/Vol] Potassium [Moles/v olume] in Serum or Plasma 3.5-5.1 [facility] Protein Test strip (U) [Mass /Vol]Ordered By: Jose Forman on 12-06-2024 Protein (U) [Mass/Vol] Protein [Mass/vol ume] in Urine by Test strip High Negative [facility] Protein [Mass/volume] in Ser um or PlasmaOrdered By: Jose Forman on 12-06-2024 Protein [Mass/Vol] Protein [Mass/volume ] in Serum or Plasma 6.4-8.9 [facility] Prothrombin Time INRon 12-06 INR Coag (PPP) [Relative time] 1.1 {INR} Normal [facility] Comment on above: Result [...] LIPASE, PT, HS TROP, PTT, HEPATIC, BMP ####[facility] [id number] [place] [address] [facility] PT Coag (PPP) [Time] 12.3 s Normal 9.0-12.9 [facility] Comment on above: Result Comment: A he matocrit value greater than 55% may lead to inaccurate results in coagulation testing. Patients having hematocrit values >55% require a special collection tube for coagulation studies. Please contact the laboratory at [phone] for redraw instructions. Performed By: #### C BC, HCGQNT, LIPASE, PT, HS TROP, PTT, HEPATIC, BMP ####[facility] [id number] [place] [id number] [facility] Prothrombin time (PT)Ordered By: Jose Forman on 12-06-2024 PT Coag (PPP) [Time] Prothrombin time (PT) 9.0- 12.9 [facility] Comment on above: A hematocrit value g reater than 55% may lead to inaccurate results in coagulation testing. Patients having hematocrit values >55% require a special collection tube for coagulation studies. Please contact the laboratory at [phone] for redraw instructions. RBC Auto (Bld) [#/Vol]Ordere d By: Jose Forman on 12-06-2024 RBC (Bld) [#/Vol] Erythrocytes [#/volu me] in Blood by Automated count 3.60-5.00 [facility] Serum or plasma albumin/glob ulin mass ratioOrdered By: Jose Forman on 12-06-2024 Albumin/Globulin [Mass ratio] Serum or plasma albumin/globulin mass ratio [facility] Serum or plasma anion gap de terminationOrdered By: Jose Forman on 12-06-2024 Anion gap [Moles/Vol] Serum or plasma an ion gap determination 6.0-15.0 [facility] Serum or plasma non-glucuron idated bilirubin measurement (mass/volume)Ordered By: Jose Forman on 12-06-2024 Bilirubin.indirect [Mass/Vol] Serum or plasma non-glucuronidated bilirubin measurement (mass/volume) [facility] Sodium [Moles/volume] in Ser um or PlasmaOrdered By: Jose Forman on 12-06-2024 Sodium [Moles/Vol] Sodium [Moles/volume ] in Serum or Plasma Low 136-145 [facility] Specific gravity Test strip (U) [Rel density]Ordered By: Jose Forman on 12-06-2024 Specific gravity (U) [Rel density] Specific gravity of Urine by Test strip 1.001-1.03 0 [facility] Troponin I High Sensitivityo n 12-06-2024 Troponin I High Sensitivity 3 Normal 0-15 [facility] Comment on above: Result Comment: The Troponin units of report have been changed to meet the Chest Pain Accreditation requirement, element EC5.M1l2. Troponin units are changed from pg/ml to ng/L. Also, the decimal is removed and results are in whole numbers. PERFORMED BY: [place] [address] PATHOLOGIST BUSINESS PRACTICES SUPERVISOR LEÓN GARCIA M.D. Performed By: #### C BC, HCGQNT, LIPASE, PT, HS TROP, PTT, HEPATIC, BMP ####[facility] [id number] Troponin I.cardiac [Mass/vol ume] in Serum or Plasma by Detection limit <= 0.01 ng/Ordered By: Jose Forman on 12-06-2024 Troponin I.cardiac DL <= 0.01 ng/mL [Mass/Vol] Troponin I.cardiac [Mass/volume] in Serum or Plasma by Detection limit <= 0.01 ng/ 0-15 [facility] Comment on above: The Troponin units o f report have been changed to meet the Chest Pain Accreditation requirement, element EC5.M1l2. Troponin units are changed from pg/ml to ng/L. Also, the decimal is removed and results are in whole numbers. US OB <= 14 weeks fetuson US OB <= 14 weeks fetus [facility] [place] [address] Ultrasound Report Signed Patient: Noris Goetz MR#: [id number] 61 : 1990 Acct:[id number] Age/Sex: 34 / F ADM Date: 12/06/24 Loc: ER Room: Type: [facility] ER Attending Dr: Ordering Provider: Jose Forman DO Date of Service: 12/06/24 US/US OB <= 14 weeks fetus: Abdominal Pain Copies to: Jose Forman DO Obstetrical ultrasound for fetus less than 14 weeks HISTORY: Abdominal pain. Vaginal bleeding COMPARISON: None The heart rate is 126bpm. Ovaries not visualized No free fluid identified in cul-de-sac. No subchorionic hemorrhage identified. Zihlman-rump length measures 6.4cm consistent with 6 weeks 4 days. The yolk sac is not seen. The estimated due date by this ultrasound is 07/28/2025. US/US OB <= 14 weeks fetus IMPRESSION: Single live anterior gestation 6 weeks 4 days. Impression dictated by: Alfonzo Flores M.D.12/06/2024 9:55 AM Dictation Location: [place] [address] Tech: Antonieta Mitchellbrooke Transcribed By: [facility] 12/06/24 0955 Dictated By: Alfonzo Flores DO 12/06/24 0954 Signed By: 12/06/24 0955 Normal [facility] Urea nitrogen [Mass/volume] in Serum or PlasmaOrdered By: Jose Forman on 12-06-2024 Urea nitrogen [Mass/Vol] Urea nitrogen [Mass/volume] in Serum or Plasma 05-11 [facility] Urobilinogen Test strip (U) [Mass/Vol]Ordered By: Jose Forman on 12-06-2024 Urobilinogen (U) [Mass/Vol] Urobilinogen [Mass/volume] in Urine by Test strip Normal [facility] WBC Auto (Bld) [#/Vol]Ordere d By: Jose Forman on 12-06-2024 WBC (Bld) [#/Vol] Leukocytes [#/volume ] in Blood by Automated count 3.8-11.6 [facility] aPTT in Platelet poor plasma by Coagulation assayOrdered By: Jose Forman on 12-06-2024 aPTT Coag (PPP) [Time] Activated partial thromboplastin time (aPTT) in platelet poor plasma by coagulation a 25.1-36.5 [facility] Comment on above: A hematocrit value g reater than 55% may lead to inaccurate results in coagulation testing. Patients having hematocrit values >55% require a special collection tube for coagulation studies. Please contact the laboratory at [phone] for redraw instructions. pH Test strip (U)Ordered By: Jose Forman on 12-06-2024 pH (U) pH of Urine by Test strip 5.0-9.0 [facility] XR chest 2V*on 08-11-2024 XR chest 2V* [facility] [address] [place] [address] [place] [address] XRay Report Signed Patient: Noris Goetz MR#: [id number] 61 : 1990 Acct:[id number] Age/Sex: 34 / F ADM Date: 08/11/24 Loc: XDUCLY Room: Type: [facility] Attending Dr: Melissa Reddy ENTRY REP Copies to: Melissa Reddy APRN Ordering Provider: [...] Alfonzo Flores M.D.08/11/2024 9:59 AM Dictation Location: [place] [address] Transcribed By: [facility] 08/11/2459 Dictated By: Alfonzo Flores DO 08/11/2458 Signed By: 08/11/24958 Normal [facility] No Panel InformationOrdered By: Derrick Wilson on 08-02-2024 Miscellaneous Pathology Test See comment [facility] Comment on above: See report. Scanned copy available in EMR. Pathology Request for Lab Co rpon 08-02-2024 Pathology Request for Lab Ministerio Normal [facility] Comment on above: Order Comment: PATHO LOGY SKIN SPECIMEN Result Comment: See report. Scanned copy available in EMR. PERFORMED BY: [place] [address] PATHOLOGIST BUSINESS PRACTICES SUPERVISOR JOAN CROWLEY M.D. Performed By: #### P ATH TO [facility] ####[facility] [id number] [place] [id number] [facility] US extremity nonvascularon 0 05-23-2024 US extremity nonvascular [facility] [address] [place] [address] [place] [address] Ultrasound Report Signed Patient: Noris Goetz MR#: [id number] 61 : 1990 Acct:[id number] Age/Sex: 34 / F ADM Date: 05/23/24 Loc: Room: Type: [facility] Attending Dr: Marianela Oliva MD Ordering [...] Annel Barnhart M.D.05/23/2024 2:18 PM Dictation Location: [place] [address] Tech: Ayleen Hackett Transcribed By: JOSESITO 05/23/24 1418 Dictated By: Annel Barnhart MD 05/23/241413 Signed By: 08/06/24 1418 Normal [facility] Automated basophil %Ordered By: Mario Perez on 05-17-2024 Basophils/100 WBC (Bld) 0.8 % Normal . [facility] Comment on above: Order Comment: FASTI NG. JKW Performed By: #### P ILLAR TSH, PILLAR CBC, PILLAR BMP, PILLAR LIPID #### [address] Automated basophil countOrde red By: Mario Perez on 05-17-2024 Basophils (Bld) [#/Vol] 0.0 10*3/uL Normal 0.0-0.2 [facility] Comment on above: Order Comment: FASTI NG. JKW Result Comment: PERF ORMED BY: [place] [address] PATHOLOGIST BUSINESS PRACTICES SUPERVISOR JOAN CROWLEY M.D. Performed By: #### P ILLAR TSH, PILLAR CBC, PILLAR BMP, PILLAR LIPID #### [address] Automated blood monocyte cou ntOrdered By: Mario Perez on 05-17-2024 Monocytes (Bld) [#/Vol] 0.6 10*3/uL Normal 0.0-0.8 [facility] Comment on above: Order Comment: FASTI NG. JKW Performed By: #### P ILLAR TSH, PILLAR CBC, PILLAR BMP, PILLAR LIPID #### [address] Automated eosinophil %Ordere d By: Mario Perez on 05-17-2024 Eosinophils/100 WBC (Bld) 5.3 % Normal . [facility] Comment on above: Order Comment: FASTI NG. JKW Performed By: #### P ILLAR TSH, PILLAR CBC, PILLAR BMP, PILLAR LIPID #### [address] Automated eosinophil countOr dered By: Mario Perez on 05-17-2024 Eosinophils (Bld) [#/Vol] 0.3 10*3/uL Normal 0.0-0.45 [facility] Comment on above: Order Comment: FASTI NG. JKW Performed By: #### P ILLAR TSH, PILLAR CBC, PILLAR BMP, PILLAR LIPID #### [facility] [address] Automated monocyte %Ordered By: Mario Perez on 05-17-2024 Monocytes/100 WBC (Bld) 10.8 % Normal . [facility] Comment on above: Order Comment: FASTI NG. JKW Performed By: #### P ILLAR TSH, PILLAR CBC, PILLAR BMP, PILLAR LIPID #### [facility] [address] [place] [address] Automated neutrophil %Ordere d By: Mario Perez on 05-17-2024 Neutrophils/100 WBC (Bld) 55.1 % Normal . [facility] Comment on above: Order Comment: FASTI NG. JKW Performed By: #### P ILLAR TSH, PILLAR CBC, PILLAR BMP, PILLAR LIPID #### [address] Calcium [Mass/volume] in Ser um or PlasmaOrdered By: Mario Perez on 05-17-2024 Calcium [Mass/Vol] 8.5 mg/dL Low 8.6-10.3 [facility] Comment on above: Order Comment: FASTI NG. JKW Performed By: #### P ILLAR TSH, PILLAR CBC, PILLAR BMP, PILLAR LIPID #### [facility] [address] [place] [address] [place] Carbon dioxide, total [Moles /volume] in Serum or PlasmaOrdered By: Mario Perez on 05-17-2024 CO2 [Moles/Vol] 27.7 mmol/L Normal 21.0-31.0 [facility] Comment on above: Order Comment: FASTI NG. JKW Performed By: #### P ILLAR TSH, PILLAR CBC, PILLAR BMP, PILLAR LIPID #### [facility] [address] [place] [address] [place] Chloride [Moles/volume] in S eamon or PlasmaOrdered By: Mario Perez on 05-17-2024 Chloride [Moles/Vol] 109 mmol/L High 98-107 [facility] Comment on above: Order Comment: RONNIE GRIMALDO Performed By: #### P ILLAR TSH, PILLAR CBC, PILLAR BMP, PILLAR LIPID #### [facility] [address] Cholesterol [Mass/volume] in Serum or PlasmaOrdered By: Mario Perez on 05-17-2024 Cholesterol [Mass/Vol] 170 mg/dL Normal 140-200 [facility] Comment on above: Chol less than 200 m g/dl low riskChol 201-239 mg/dl borderline riskChol 240 mg/dl and greater high risk Order Comment: RONNIE GRIMALDO Result Comment: Chol less than 200 mg/dl low risk Chol 201-239 mg/dl borderline risk Chol 240 mg/dl and greater high risk Performed By: #### P ILLAR TSH, PILLAR CBC, PILLAR BMP, PILLAR LIPID #### [facility] [address] Cholesterol in LDL Calc [Mas s/Vol]Ordered By: Mario Perez on 05-17-2024 Cholesterol in LDL [Mass/Vol] 109 mg/dL High 0-100 [facility] Comment on above: LDL ATP III CLASSIFI CATIONLDL less than 100 mg/dL OptimalLDL 100-129 mg/dL Near or above optimalLDL 130-159 mg/dL Borderline highLDL 160-189 mg/dL HighLDL greater than 189 mg/dL Very high Cholesterol in VLDL Calc [Ma ss/Vol]Ordered By: Mario Perez on 05-17-2024 Cholesterol in VLDL [Mass/Vol] 10 mg/dL [facility] Creatinine [Mass/volume] in Serum or PlasmaOrdered By: Mario Perez on 05-17-2024 Creatinine [Mass/Vol] 0.73 mg/dL Normal 0.60-1.20 [facility] Comment on above: Order Comment: RONNIE PEPEW Performed By: #### P ILLAR TSH, PILLAR CBC, PILLAR BMP, PILLAR LIPID #### [facility] [address] Employee Basic Metabolic Nails anushka 05-17-2024 GFR/1.73 sq M.predicted MDRD (S/P/Bld) [Vol rate/Area] mL/min/{1.73_m2} Normal [facility] Comment on above: Order Comment: FASTI NG. JKW Performed By: #### P ILLAR TSH, PILLAR CBC, PILLAR BMP, PILLAR LIPID #### [facility] [address] Employee Complete Blood Coun ton 05-17-2024 Mean Corpuscular HGB Conc 34.2 g/dL Normal 32.0-35.0 [facility] Comment on above: Order Comment: FASTI NG. JKW Performed By: #### P ILLAR TSH, PILLAR CBC, PILLAR BMP, PILLAR LIPID #### [facility] [address] NRBC% 0.1 /100{WBC} Normal 0-0.5 [facility] Comment on above: Order Comment: FASTI NG. JKW Performed By: #### P ILLAR TSH, PILLAR CBC, PILLAR BMP, PILLAR LIPID #### [facility] [address] Employee Lipid Profileon LDL Cholesterol,Calculated 109 mg/dL High 0-100 [facility] Comment on above: Order Comment: FASTI NG. JKW Result Comment: LDL ATP III CLASSIFICATION LDL less than 100 mg/dL Optimal LDL 100-129 mg/dL Near or above optimal LDL 130-159 mg/dL Borderline high LDL 160-189 mg/dL High LDL greater than 189 mg/dL Very high Performed By: #### P ILLAR TSH, PILLAR CBC, PILLAR BMP, PILLAR LIPID #### [facility] [address] Triglyceride w/Reflex 52 mg/dL Normal 0-149 [facility] Comment on above: Order [...] PILLAR CBC, PILLAR BMP, PILLAR LIPID #### [address] VLDL CHOLESTEROL 10 mg/dL Normal [facility] Comment on above: Order Comment: FASTI NG. JKW Performed By: #### P ILLAR TSH, PILLAR CBC, PILLAR BMP, PILLAR LIPID #### [address] Employee Thyroid Stim Hormon paulo 05-17-2024 Employee Thyroid Stim Hormone 1.90 u[iU]/mL Normal 0.45-5.33 [facility] Comment on above: Order Comment: FASTI NG. JKW Result Comment: PERF ORMED BY: [place] [address] PATHOLOGIST BUSINESS PRACTICES SUPERVISOR JOAN CROWLEY M.D. Performed By: #### P ILLAR TSH, PILLAR CBC, PILLAR BMP, PILLAR LIPID #### [address] Erythrocyte distribution wid th [Ratio] by Automated countOrdered By: Mario Perez on 05-17-2024 Erythrocyte distribution width (RBC) [Ratio] 13.7 % Normal 11.9-15.3 [facility] Comment on above: Order Comment: FASTI NG. JKW Performed By: #### P ILLAR TSH, PILLAR CBC, PILLAR BMP, PILLAR LIPID #### [address] Erythrocytes [#/volume] in B lood by Automated countOrdered By: Mario Perez on 05-17-2024 RBC (Bld) [#/Vol] 4.62 10*6/uL Normal 3.60-5.00 [facility] Comment on above: Order Comment: FASTI NG. JKW Performed By: #### P ILLAR TSH, PILLAR CBC, PILLAR BMP, PILLAR LIPID #### [address] Glucose [Mass/volume] in Ser um or PlasmaOrdered By: Mario Perez on 05-17-2024 Glucose [Mass/Vol] 95 mg/dL Normal 70-100 [facility] Comment on above: Order Comment: FASTI NG. JKW Performed By: #### P ILLAR TSH, PILLAR CBC, PILLAR BMP, PILLAR LIPID #### [facility] [address] [place] [address] Hematocrit [Volume Fraction] of Blood by Automated countOrdered By: Mario Perez on 05-17-2024 Hematocrit (Bld) [Volume fraction] 36.7 % Normal 34.0-46.4 [facility] Comment on above: Order Comment: FASTI NG. JKW Performed By: #### P ILLAR TSH, PILLAR CBC, PILLAR BMP, PILLAR LIPID #### [address] Hemoglobin [Mass/volume] in BloodOrdered By: Mario Perez on 05-17-2024 Hemoglobin (Bld) [Mass/Vol] 12.6 g/dL Normal 11.8-15.4 [facility] Comment on above: Order Comment: FASTI NG. JKW Performed By: #### P ILLAR TSH, PILLAR CBC, PILLAR BMP, PILLAR LIPID #### [facility] [address] [place] [address] [place] Leukocytes [#/volume] correc randolph for nucleated erythrocytes in Blood by Automated counOrdered By: Mario Perez on 05-17-2024 WBC corrected for nucl RBC Auto (Bld) [#/Vol] 5.1 10*3/uL 3.8-11.6 [facility] Leukocytes [#/volume] in Blo od by Automated countOrdered By: Mario Perez on 05-17-2024 WBC (Bld) [#/Vol] 5.1 10*3/uL Normal 3.8-11.6 [facility] Comment on above: Order Comment: FASTI NG. JKW Performed By: #### P ILLAR TSH, PILLAR CBC, PILLAR BMP, PILLAR LIPID #### [address] [place] [address] [place] Lymphocytes [#/volume] in Bl ood by Automated countOrdered By: Mario Perez on 05-17-2024 Lymphocytes (Bld) [#/Vol] 1.4 10*3/uL Normal 1.00-4.8 [facility] Comment on above: Order Comment: FASTI NG. JKW Performed By: #### P ILLAR TSH, PILLAR CBC, PILLAR BMP, PILLAR LIPID #### [address] Lymphocytes/100 leukocytes i n Blood by Automated countOrdered By: Mario Perez on 05-17-2024 Lymphocytes/100 WBC (Bld) 28.0 % Normal . [facility] Comment on above: Order Comment: FASTI NG. JKW Performed By: #### P ILLAR TSH, PILLAR CBC, PILLAR BMP, PILLAR LIPID #### [address] MCH [Entitic mass] by Automa randolph countOrdered By: Mario Perez on 05-17-2024 MCH (RBC) [Entitic mass] 27.2 pg Normal 24.7-34.3 [facility] Comment on above: Order Comment: FASTI NG. JKW Performed By: #### P ILLAR TSH, PILLAR CBC, PILLAR BMP, PILLAR LIPID #### [address] MCHC Auto (RBC) [Mass/Vol]Or dered By: Mario Perez on 05-17-2024 MCHC (RBC) [Mass/Vol] 34.2 g/dL 32.0-35.0 [facility] MCV [Entitic volume] by Auto mated countOrdered By: Mario Perez on 05-17-2024 MCV (RBC) [Entitic vol] 79.4 fL Low 80-100 [facility] Comment on above: Order Comment: FASTI NG. JKW Performed By: #### P ILLAR TSH, PILLAR CBC, PILLAR BMP, PILLAR LIPID #### [address] Neutrophils [#/volume] in Bl ood by Automated countOrdered By: Mario Perez on 05-17-2024 Neutrophils (Bld) [#/Vol] 2.8 10*3/uL Normal 1.8-7.7 [facility] Comment on above: Order Comment: FASTI NG. JKW Performed By: #### P ILLAR TSH, PILLAR CBC, PILLAR BMP, PILLAR LIPID #### [facility] [address] No Panel InformationOrdered By: Mario Perez on 05-17-2024 Estimated GFR (CKD-EPI) > 60.0 mL/Min [facility] Creatinine Clearance (Chem N/A [facility] Nucleated erythrocytes [Pres ence] in Blood by Automated countOrdered By: Mario Perez on 05-17-2024 Nucleated RBC Auto Ql (Bld) 0.1 /100{WBC} 0-0.5 [facility] Platelet mean volume [Entiti c volume] in Blood by Automated countOrdered By: Mario Perez on 05-17-2024 Platelet mean volume (Bld) [Entitic vol] 8.9 fL Normal 6.3-10.7 [facility] Comment on above: Order Comment: FASTI NG. JKW Performed By: #### P ILLAR TSH, PILLAR CBC, PILLAR BMP, PILLAR LIPID #### [facility] [address] [place] [address] Platelets [#/volume] in Bloo d by Automated countOrdered By: Mario Perez on 05-17-2024 Platelets (Bld) [#/Vol] 192 10*3/uL Normal 150-450 [facility] Comment on above: Order Comment: FASTI NG. JKW Performed By: #### P ILLAR TSH, PILLAR CBC, PILLAR BMP, PILLAR LIPID #### [facility] [address] [place] [address] Potassium [Moles/volume] in Serum or PlasmaOrdered By: Mario Perez on 05-17-2024 Potassium [Moles/Vol] 3.9 mmol/L Normal 3.5-5.1 [facility] Comment on above: Order Comment: FASTJoni COBIAN. JKW Performed By: #### P ILLAR TSH, PILLAR CBC, PILLAR BMP, PILLAR LIPID #### [facility] [address] Serum or plasma anion gap de terminationOrdered By: Mario Perez on 05-17-2024 Anion gap [Moles/Vol] 7.2 mmol/L Normal 6.0-15.0 [facility] Comment on above: Order Comment: FASTI NG. JKW Performed By: #### P ILLAR TSH, PILLAR CBC, PILLAR BMP, PILLAR LIPID #### [facility] [address] Serum or plasma high density lipoprotein (HDL) cholesterol measurementOrdered By: Mario Perez on 05-17-2024 Cholesterol in HDL [Mass/Vol] 51 mg/dL Normal 23-92 [facility] Comment on above: HDL CHOL ATP-III CLA SSIFICATION Cardiovascular RiskHDL > or equal to 60 mg/dL LOWHDL < 40 mg/dL HIGH Order Comment: FASTI ARANZA. JKW Result Comment: HDL CHOL ATP-III CLASSIFICATION Cardiovascular Risk HDL > or equal to 60 mg/dL LOW HDL < 40 mg/dL HIGH Performed By: #### P ILLAR TSH, PILLAR CBC, PILLAR BMP, PILLAR LIPID #### [facility] [address] [place] [address] Serum or plasma total choles terol/high density lipoprotein (HDL) cholesterol mass ratOrdered By: Mario Perez on 05-17-2024 Cholesterol.total/Chol esterol in HDL [Mass ratio] 3.3 {ratio} Normal <5.0 [facility] Comment on above: Order Comment: FASTI NG. JKW Performed By: #### P ILLAR TSH, PILLAR CBC, PILLAR BMP, PILLAR LIPID #### [facility] [address] Sodium [Moles/volume] in Ser um or PlasmaOrdered By: Mario Perez on 05-17-2024 Sodium [Moles/Vol] 140 mmol/L Normal 136-145 [facility] Comment on above: Order Comment: FASTI NG. JKW Performed By: #### P ILLAR TSH, PILLAR CBC, PILLAR BMP, PILLAR LIPID #### [facility] [address] Thyrotropin [Units/volume] i n Serum or PlasmaOrdered By: Mario Perez on 05-17-2024 TSH Qn 1.90 m[IU]/L 0.45-5.33 [facility] Triglyceride [Mass/volume] i n Serum or PlasmaOrdered By: Mario Perez on 05-17-2024 Triglyceride [Mass/Vol] 52 mg/dL 0-149 [facility] Comment on above: TRIG ATP III CLASSIF ICATIONTRIG less than 150 mg/dL NormalTRIG 150-199 mg/dL Borderline highTRIG 200-500 mg/dL High TRIG greater than 500 mg/dL Very highStandard traceable to the Center for Disease Conrtrol and Prevention (CDC) test method. Urea nitrogen [Mass/volume] in Serum or PlasmaOrdered By: Mario Perez on 05-17-2024 Urea nitrogen [Mass/Vol] 15 mg/dL Normal 05-11 [facility] Comment on above: Order Comment: RONNIE COBIAN. JKW Performed By: #### P ILLAR TSH, PILLAR CBC, PILLAR BMP, PILLAR LIPID #### [facility] [address] Alanine aminotransferase [En zymatic activity/volume] in Serum or PlasmaOrdered By: Mario Perez on 07-12-2023 ALT [Catalytic activity/Vol] 14 U/L 7-52 [facility] Albumin [Mass/volume] in Ser um or Plasma by Bromocresol green (BCG) dye binding methoOrdered By: Mario Perez on 07-12-2023 Albumin BCG dye [Mass/Vol] 4.2 g/dL 3.5-5.7 [facility] Alkaline phosphatase [Enzyma tic activity/volume] in Serum or PlasmaOrdered By: Mario Perez on 07-12-2023 ALP [Catalytic activity/Vol] 45 U/L 34-104 [facility] Aspartate aminotransferase [ Enzymatic activity/volume] in Serum or PlasmaOrdered By: Mario Perez on 07-12-2023 AST [Catalytic activity/Vol] 15 U/L 13-39 [facility] Bilirubin.total [Mass/volume ] in Serum or PlasmaOrdered By: Mario Perez on 07-12-2023 Bilirubin [Mass/Vol] 0.4 mg/dL 0.3-1.0 [facility] Calcium [Mass/volume] in Ser um or PlasmaOrdered By: Mario Perez on 07-12-2023 Calcium [Mass/Vol] 8.9 mg/dL 8.6-10.3 [facility] Carbon dioxide, total [Moles /volume] in Serum or PlasmaOrdered By: Mario Perez on 07-12-2023 CO2 [Moles/Vol] 28.7 mmol/L 21.0-31.0 [facility] Chloride [Moles/volume] in S eamon or PlasmaOrdered By: Mario Perez on 07-12-2023 Chloride [Moles/Vol] 106 mmol/L 98-107 [facility] Cholesterol [Mass/volume] in Serum or PlasmaOrdered By: Mario Perez on 07-12-2023 Cholesterol [Mass/Vol] 194 mg/dL 140-200 [facility] Comment on above: Chol less than 200 m g/dl low riskChol 201-239 mg/dl borderline riskChol 240 mg/dl and greater high risk Cholesterol in LDL Calc [Mas s/Vol]Ordered By: Mario Perez on 07-12-2023 Cholesterol in LDL [Mass/Vol] 119 mg/dL 0-100 [facility] Comment on above: LDL ATP III CLASSIFI CATIONLDL less than 100 mg/dL OptimalLDL 100-129 mg/dL Near or above optimalLDL 130-159 mg/dL Borderline highLDL 160-189 mg/dL HighLDL greater than 189 mg/dL Very high Cholesterol in VLDL Calc [Ma ss/Vol]Ordered By: Mario Perez on 07-12-2023 Cholesterol in VLDL [Mass/Vol] 12 mg/dL [facility] Creatinine [Mass/volume] in Serum or PlasmaOrdered By: Mario Perez on 07-12-2023 Creatinine [Mass/Vol] 0.78 mg/dL 0.60-1.20 [facility] Globulin Calc (S) [Mass/Vol] Ordered By: Mario Perez on 07-12-2023 Globulin (S) [Mass/Vol] 2.2 g/dL [facility] Glucose [Mass/volume] in Ser um or PlasmaOrdered By: Mario Perez on 07-12-2023 Glucose [Mass/Vol] 99 mg/dL 70-100 [facility] No Panel InformationOrdered By: Mario Perez on 07-12-2023 Estimated GFR (CKD-EPI) > 60.0 mL/Min [facility] Creatinine Clearance (Chem N/A [facility] Potassium [Moles/volume] in Serum or PlasmaOrdered By: Mario Perez on 07-12-2023 Potassium [Moles/Vol] 4.3 mmol/L 3.5-5.1 [facility] Protein [Mass/volume] in Ser um or PlasmaOrdered By: Mario Perez on 07-12-2023 Protein [Mass/Vol] 6.4 g/dL 6.4-8.9 [facility] Serum or plasma albumin/glob ulin mass ratioOrdered By: Mario Perez on 07-12-2023 Albumin/Globulin [Mass ratio] 1.9 {ratio} [facility] Serum or plasma anion gap de terminationOrdered By: Mario Perez on 07-12-2023 Anion gap [Moles/Vol] 8.6 mmol/L 6.0-15.0 [facility] Serum or plasma high density lipoprotein (HDL) cholesterol measurementOrdered By: Mario Perez on 07-12-2023 Cholesterol in HDL [Mass/Vol] 63 mg/dL 23-92 [facility] Comment on above: HDL CHOL ATP-III CLA SSIFICATION Cardiovascular RiskHDL > or equal to 60 mg/dL LOWHDL < 40 mg/dL HIGH Serum or plasma total choles terol/high density lipoprotein (HDL) cholesterol mass ratOrdered By: Mario Perez on 07-12-2023 Cholesterol.total/Chol esterol in HDL [Mass ratio] 3.1 {ratio} <5.0 [facility] Sodium [Moles/volume] in Ser um or PlasmaOrdered By: Mario Perez on 07-12-2023 Sodium [Moles/Vol] 139 mmol/L 136-145 [facility] Triglyceride [Mass/volume] i n Serum or PlasmaOrdered By: Mario Perez on 07-12-2023 Triglyceride [Mass/Vol] 61 mg/dL 0-149 [facility] Comment on above: TRIG ATP III CLASSIF ICATIONTRIG less than 150 mg/dL NormalTRIG 150-199 mg/dL Borderline highTRIG 200-500 mg/dL High TRIG greater than 500 mg/dL Very highStandard traceable to the Center for Disease Conrtrol and Prevention (CDC) test method. Urea nitrogen [Mass/volume] in Serum or PlasmaOrdered By: Mario Perez on 07-12-2023 Urea nitrogen [Mass/Vol] 13 mg/dL 7-25 [facility] Human papilloma virus 16+18+ 31+33+35+39+45+51+52+56+58+59+66+68 DNA [Presence] in CerOrdered By: MARISSA GARCIA on 12-15-2022 HPV 16+18+31+33+35+39+45+5 1+52+56+58+59+66+68 DNA Probe+sig amp Ql (Cvx) Negative Negative [facility] Comment on above: This nucleic acid am plification test detects fourteen high- risk HPV types (16,18,31,33,35,39,45,51,52,56,58,59,66,68)without differentiation.Performed at: - [facility] [id number] Director: Azalea Quezada MD, Phone: [phone] at: =G - [facility] [address] [id number] Director: Azalea Quezada MD, Phone: [phone] No Panel InformationOrdered By: MARISSA GARCIA on 12-15-2022 IG Pap w/Ct-Ng & HPV Rflx (Off-Site Note . [facility] Comment on above: TESTS RESULT FLAG UN ITS REF RANGE LAB Clinician Provided Cytology Information No. of containers..01 ThinPrep VialDIAGNOSIS: 01 NEGATIVE FOR INTRAEPITHELIAL LESION OR MALIGNANCY.Specimen adequacy: 01 Satisfactory for evaluation. Endocervical and/or squamous metaplastic cells (endocervical component) are present.Performed by: 01 Jose Manuel Garcia, Floor Coverer Apprentice ([facility]). 01Note: Note 01 The Pap smear [...] <-Panic Low,>-Panic High,A-Abnormal,AA-Critical Abnormal -----Performed at:[address] [facility] [id number] Azalea Quezada MD, Albumin [Mass/volume] in Ser um or PlasmaOrdered By: Marianela Oliva on 06-26-2022 Albumin [Mass/Vol] 3.8 g/dL 3.2-5.5 [facility] Basophils Auto (Bld) [#/Vol] Ordered By: Marianela Oliva on 06-26-2022 Basophils (Bld) [#/Vol] 0.0 10*3/uL 0.0-0.2 [facility] Basophils/100 WBC Auto (Bld) Ordered By: Marianela Oliva on 06-26-2022 Basophils/100 WBC (Bld) 0.7 % . [facility] Cholesterol [Mass/volume] in Serum or PlasmaOrdered By: Marianela Oliva on 06-26-2022 Cholesterol [Mass/Vol] 177 mg/dL 140-200 [facility] Comment on above: Chol less than 200 m g/dl low riskChol 201-239 mg/dl borderline riskChol 240 mg/dl and greater high risk Cholesterol in LDL Calc [Mas s/Vol]Ordered By: Marianela Oliva on 06-26-2022 Cholesterol in LDL [Mass/Vol] 118 mg/dL 0-100 [facility] Comment on above: LDL ATP III CLASSIFI CATIONLDL less than 100 mg/dL OptimalLDL 100-129 mg/dL Near or above optimalLDL 130-159 mg/dL Borderline highLDL 160-189 mg/dL HighLDL greater than 189 mg/dL Very high Cholesterol in VLDL Calc [Ma ss/Vol]Ordered By: Marianela Oliva on 06-26-2022 Cholesterol in VLDL [Mass/Vol] 10 mg/dL [facility] Creatinine and Glomerular fi ltration rate.predicted panel (S/P/Bld)Ordered By: Marianela Oliva on 06-26-2022 Creatinine [Mass/Vol] 0.77 mg/dL 0.44-1.03 [facility] Eosinophils Auto (Bld) [#/Vo l]Ordered By: Marianela Oliva on 06-26-2022 Eosinophils (Bld) [#/Vol] 0.2 10*3/uL 0.0-0.45 [facility] Eosinophils/100 WBC Auto (Bl d)Ordered By: Marianela Oliva on 06-26-2022 Eosinophils/100 WBC (Bld) 4.1 % . [facility] Erythrocyte distribution wid th Auto (RBC) [Ratio]Ordered By: Marianela lOiva on 06-26-2022 Erythrocyte distribution width (RBC) [Ratio] 13.1 % 11.9-15.3 [facility] Estimated glomerular filtrat ion rate (GFR) non- AmericanOrdered By: Marianela Oliva on 06-26-2022 GFR/1.73 sq M.predicted among non-blacks MDRD (S/P/Bld) [Vol rate/Area] > 60 mL/Min [facility] Globulin Calc (S) [Mass/Vol] Ordered By: Marianela Oliva on 06-26-2022 Globulin (S) [Mass/Vol] 2.3 g/dL [facility] Hematocrit Auto (Bld) [Volum e fraction]Ordered By: Marianela Oliva on 06-26-2022 Hematocrit (Bld) [Volume fraction] 38.9 % 34.0-46.4 [facility] Hemoglobin [Mass/volume] in BloodOrdered By: Marianela Oliva on 06-26-2022 Hemoglobin (Bld) [Mass/Vol] 13.1 g/dL 11.8-15.4 [facility] Laboratory - Chemistry and C hemistry - challengeOrdered By: Marianela Oliva on 06-26-2022 Glucose [Mass/Vol] 98 mg/dL 70-100 [facility] - Hematology and Cell countsOrdered By: Marianela Oliva on 06-26-2022 Nucleated RBC/100 WBC (Bld) [Ratio] 0.0 % 0-0.5 [facility] Leukocytes [#/volume] in Blo od by Automated countOrdered By: Marianela Oliva on 06-26-2022 WBC (Bld) [#/Vol] 4.3 10*3/uL 4.5-11.0 [facility] Lymphocytes Auto (Bld) [#/Vo l]Ordered By: Marianela Oliva on 06-26-2022 Lymphocytes (Bld) [#/Vol] 1.5 10*3/uL 1.00-4.8 [facility] Lymphocytes/100 WBC Auto (Bl d)Ordered By: Marianela Oliva on 06-26-2022 Lymphocytes/100 WBC (Bld) 35.2 % . [facility] MCH Auto (RBC) [Entitic mass ]Ordered By: Marianela Oliva on 06-26-2022 MCH (RBC) [Entitic mass] 27.3 pg 24.7-34.3 [facility] MCHC Auto (RBC) [Mass/Vol]Or dered By: Marianela Oliva on 06-26-2022 MCHC (RBC) [Mass/Vol] 33.7 g/dL 32.0-35.0 [facility] MCV Auto (RBC) [Entitic vol] Ordered By: Marianela Oliva on 06-26-2022 MCV (RBC) [Entitic vol] 81.1 fL 80-100 [facility] Monocyte %Ordered By: Marianela Oliva on 06-26-2022 Monocyte % 52 mg/dL 35-149 [facility] Comment on above: TRIG ATP III CLASSIF ICATIONTRIG less than 150 mg/dL NormalTRIG 150-199 mg/dL Borderline highTRIG 200-500 mg/dL High TRIG greater than 500 mg/dL Very highStandard traceable to the Center for Disease Conrtrol and Prevention (CDC) test method. Monocytes Auto (Bld) [#/Vol] Ordered By: Marianela Oliva on 06-26-2022 Monocytes (Bld) [#/Vol] 0.5 10*3/uL 0.0-0.8 [facility] Monocytes/100 WBC Auto (Bld) Ordered By: Marianela Oliva on 06-26-2022 Monocytes/100 WBC (Bld) 11.0 % . [facility] Neutrophils Auto (Bld) [#/Vo l]Ordered By: Marianela Oliva on 06-26-2022 Neutrophils (Bld) [#/Vol] 2.1 10*3/uL 1.8-7.7 [facility] Neutrophils/100 WBC Auto (Bl d)Ordered By: Marianela Oliva on 06-26-2022 Neutrophils/100 WBC (Bld) 49.0 % . [facility] No Panel InformationOrdered By: Marianela Oliva on 06-26-2022 Estimated GFR () > 60 mL/Min [facility] Comment on above: GFR estimated refere nce range: According to KDOQI guidelines, <60 ml/min/1.73m2 is sufficient to diagnose a patient with chronic kidney disease. Nicotine Metabolite Negative Cutoff=25 [facility] Comment on above: Performed at: [address] [id number] Director: George García MD, Phone: [phone] Pharmacy Creatinine Clearance (Chem N/A [facility] Platelet mean volume Auto (B ld) [Entitic vol]Ordered By: Marianela Oliva on 06-26-2022 Platelet mean volume (Bld) [Entitic vol] 9.7 fL 6.3-10.7 [facility] Platelets Auto (Bld) [#/Vol] Ordered By: Marianela Oliva on 06-26-2022 Platelets (Bld) [#/Vol] 191 10*3/uL 150-450 [facility] Protein [Mass/volume] in Ser um or PlasmaOrdered By: Marianela Oliva on 06-26-2022 Protein [Mass/Vol] 6.1 g/dL 6.1-7.9 [facility] RBC Auto (Bld) [#/Vol]Ordere d By: Marianela Oliva on 06-26-2022 RBC (Bld) [#/Vol] 4.80 10*6/uL 3.60-5.00 [facility] Serum or plasma alanine carvalho otransferase measurement without P-5'-P (enzymatic activiOrdered By: Marianela Oliva on 06-26-2022 ALT No additional P-5'-P [Catalytic activity/Vol] 17 U/L 10-60 [facility] Serum or plasma albumin/glob ulin mass ratioOrdered By: Marianela Oliva on 06-26-2022 Albumin/Globulin [Mass ratio] 1.7 {ratio} [facility] Serum or plasma alkaline rad sphatase measurement (enzymatic activity/volume)Ordered By: Marianela Oliva on 06-26-2022 ALP [Catalytic activity/Vol] 46 U/L 32-92 [facility] Serum or plasma anion gap de terminationOrdered By: Marianela Oliva on 06-26-2022 Anion gap [Moles/Vol] 8.1 mmol/L 6.0-15.0 [facility] Serum or plasma aspartate am inotransferase measurement (enzymatic activity/volume)Ordered By: Marianela Oliva on 06-26-2022 AST [Catalytic activity/Vol] 18 U/L 10-42 [facility] Serum or plasma calcium richy urement (mass/volume)Ordered By: Marianela Oliva on 06-26-2022 Calcium [Mass/Vol] 9.0 mg/dL 8.2-10.2 [facility] Serum or plasma chloride alma surement (moles/volume)Ordered By: Marianela Oliva on 06-26-2022 Chloride [Moles/Vol] 106 mmol/L 95-114 [facility] Serum or plasma high density lipoprotein (HDL) cholesterol measurementOrdered By: Marianela Oliva on 06-26-2022 Cholesterol in HDL [Mass/Vol] 49 mg/dL 35-85 [facility] Comment on above: HDL CHOL ATP-III CLA SSIFICATION Cardiovascular RiskHDL > or equal to 60 mg/dL LOWHDL < 40 mg/dL HIGH Serum or plasma potassium me asurement (moles/volume)Ordered By: Marianela Oliva on 06-26-2022 Potassium [Moles/Vol] 4.1 mmol/L 3.5-5.1 [facility] Serum or plasma sodium measu rement (moles/volume)Ordered By: Marianela Oliva on 06-26-2022 Sodium [Moles/Vol] 137 mmol/L 136-146 [facility] Serum or plasma total biliru bin measurement (mass/volume)Ordered By: Marianela Oliva on 06-26-2022 Bilirubin [Mass/Vol] 0.6 mg/dL 0.3-1.2 [facility] Serum or plasma total carbon dioxide measurement (moles/volume)Ordered By: Marianela Oliva on 06-26-2022 CO2 [Moles/Vol] 27.0 mmol/L 22.0-30.0 [facility] Serum or plasma total choles terol/high density lipoprotein (HDL) cholesterol mass ratOrdered By: Marianela Oliva on 06-26-2022 Cholesterol.total/Chol esterol in HDL [Mass ratio] 3.6 {ratio} <5.0 [facility] Serum or plasma urea nitroge n measurement (mass/volume)Ordered By: Marianela Oliva on 06-26-2022 Urea nitrogen [Mass/Vol] 14 mg/dL 07-10 [facility] TSH DL <= 0.005 mIU/L QnOrde red By: Marianela Oliva on 06-26-2022 TSH Qn 1.33 m[IU]/L 0.45-5.33 [facility] [employer]stick [employer] Microscop[employer] Dipstick & Microscopic No [facility] [employer] Other Urine 10 SGon 01-07-2022 Albumin DL <= 20 mg/L (U) [Mass/Vol] 100 mg/dL [employer] Other Albumin DL <= 20 mg/L (U) [Mass/Vol] Large [employer] Other pH (U) 6.0 [pH] [employer] Other Urine 10 SG Negative [employer] Other Urine 10 SG 1.030 [employer] Other Urine 10 SG Large [employer] Other Urine 10 SG 0.2 [employer] Other Urine 10 SG Positive [employer] Other Urine Cultureon 01-07-2022 Urine Culture >100,000 [employer] Other Urine Culture <16 Susceptible [employer] Other Urine Culture <8 Susceptible [employer] Other Urine Culture <4 Susceptible [employer] Other Urine Culture <2 Susceptible [employer] Other Urine Culture <1 Susceptible [employer] Other Urine Culture <0.5 Susceptible [employer] Other Urine Culture <32 Susceptible [employer] Other Urine Culture <2/38 Susceptible [employer] Other Cult,Urine,CCon 12-24-2018 Cult,Urine,CC Specimen Description .URINE Special Requests .CLEAN CATCH URINE Culture NO GROWTH Report Status FINAL 12/24/2018 Normal [facility] Comment on above: Performed By: #### C PDAU #### [address] [place] [address] Chlamydia/GC DNA, Uron 12-23 Protein mass conc Negative Normal NEG [facility] Comment on above: Result Comment: [...] target. Performed By: #### C PDAU #### [address] [place] [address] Result Comment: CHLA MYDIA TRACHOMATIS DNA [...] HIV Ag/Abon 12-23-2018 HIV Ag/Ab NONREACTIVE Normal NR [facility] Comment on above: Result Comment: No l aboratory evidence of HIV infection. If acute HIV infection is suspected, consider testing for HIV-1 RNA. Performed By: #### C PDAU #### [address] [place] [address] Hep C Abon 12-23-2018 Hep C Ab NONREACTIVE Normal NR [facility] Comment on above: Result Comment: The [...] PCR. Performed By: #### C PDAU #### [address] [place] [address] Profileon 9 T.pallidum Ab Screen NONREACTIVE Normal NR [facility] Comment on above: Result Comment: T. pallidum antibodies are not detected. There is no serological evidence of infection with T. pallidum (early primary syphilis cannot be excluded). Retest in 2-4 weeks if syphilis is clinically suspect. Performed By: #### C PDAU #### [address] [place] [address] Hep B Surf Ag NONREACTIVE Normal NR [facility] Comment on above: Performed By: #### C PDAU #### [address] [place] [id number] Rubella Ab, IgG 52.3 IU/mL Normal [facility] Comment on above: Result Comment: REFERENCE RANGE: <5.0 NON-REACTIVE (non-immune) 5.0 TO 9.9 EQUIVOCAL >=10.0 REACTIVE (immune) Performed By: #### C PDAU #### [address] [place] [address] Profileon 9 Abs. Basophil <0.03 Normal 0.00-0.20 [facility] Comment on above: Performed By: #### C PDAU #### [address] [place] [address] Abs.Imm.Granulocyte 0.04 k/uL Normal 0.00-0.30 [facility] Comment on above: Performed By: #### C PDAU #### [address] [place] [id number] Abs.Neutrophil (Seg) 4.44 k/uL Normal 1.50-8.10 [facility] Comment on above: Performed By: #### C PDAU #### [address] [place] [id number] Basophils/100 WBC (Bld) 0 % Normal 0-2 [facility] Comment on above: Performed By: #### C PDAU #### [address] [place] [address] Eosinophils #/vol (Bld) 0.08 10*3/uL Normal 0.00-0.44 [facility] Comment on above: Performed By: #### C PDAU #### [address] [place] [address] Eosinophils/100 WBC (Bld) 1 % Normal 1-4 [facility] Comment on above: Performed By: #### C PDAU #### [address] [place] [address] Erythrocyte distribution width Ratio (RBC) 13.2 % Normal 11.8-14.4 [facility] Comment on above: Performed By: #### C PDAU #### [address] [place], [facility] Hematocrit Volume Fraction (Bld) 35.3 % Low 36.3-47.1 [facility] Comment on above: Performed By: #### C PDAU #### [address] [place], [facility] Hemoglobin mass conc (Bld) 11.4 g/dL Low 11.9-15.1 [facility] Comment on above: Performed By: #### C PDAU #### [address] [place] [address] Immature granulocytes #/vol (Bld) 1 % High 0 [facility] Comment on above: Performed By: #### C PDAU #### [address] [place] [address] Lymphocytes #/vol (Bld) 1.70 10*3/uL Normal 1.10-3.70 [facility] Comment on above: Performed By: #### C PDAU #### [address] [place] [address] Lymphocytes/100 WBC (Bld) 25 % Normal 24-43 [facility] Comment on above: Performed By: #### C PDAU #### [address] [place] [address] MCH Entitic mass (RBC) 26.5 pg Normal 25.2-33.5 [facility] Comment on above: Performed By: #### C PDAU #### [address] [place] [address] MCHC mass conc (RBC) 32.3 g/dL Normal 28.4-34.8 [facility] Comment on above: Performed By: #### C PDAU #### [address] [place] [address] MCV Entitic volume (RBC) 82.1 fL Low 82.6-102.9 [facility] Comment on above: Performed By: #### C PDAU #### [address] [place] [address] Monocytes #/vol (Bld) 0.66 10*3/uL Normal 0.10-1.20 [facility] Comment on above: Performed By: #### C PDAU #### [address] [place] [address] Monocytes/100 WBC (Bld) 10 % Normal 3-12 [facility] Comment on above: Performed By: #### C PDAU #### [address] [place] [address] Neutrophil (Seg) 63 % Normal 36-65 [facility] Comment on above: Performed By: #### C PDAU #### [address] [place] [address] NRBC Automated 0.0 per 100 WBC Normal 0.0 [facility] Comment on above: Performed By: #### C PDAU #### [address] [place] [address] Platelet mean volume Entitic volume (Bld) 10.8 fL Normal 8.1-13.5 [facility] Comment on above: Performed By: #### C PDAU #### [address] [place] [address] Platelets #/vol (Bld) 298 10*3/uL Normal 138-453 [facility] Comment on above: Performed By: #### C PDAU #### [address] [place] [address] RBC #/vol (Bld) 4.30 10*6/uL Normal 3.95-5.11 [facility] Comment on above: Performed By: #### C PDAU #### [address] [place] [address] WBC #/vol (Bld) 6.9 10*3/uL Normal 3.5-11.3 [facility] Comment on above: Performed By: #### C PDAU #### [address] [place] [address] Auto Diff Performed NOT REPORTED Normal [facility] Comment on above: Performed By: #### C PDAU #### [address] [place] [address] Platelets #/vol (Bld) NOT REPORTED Normal [facility] Comment on above: Performed By: #### C PDAU #### [address] [place] [address] RBC morphology finding Nom (Bld) NOT REPORTED Normal [facility] Comment on above: Performed By: #### C PDAU #### [address] [place] [address] WBC Morphology NOT REPORTED Normal [facility] Comment on above: Performed By: #### C PDAU #### [address] [place] [address] Type + Scrnon 12-22 Type + Scrn Negative Normal [facility] Comment on above: Performed By: #### C PDAU #### [address] [place] [address] Toxicology Scree, Urineon Amphetamine(s),Ur Negative Normal NEG [facility] Comment on above: Performed By: #### C PDAU #### [address] [place] [address] Barbiturate(s),Ur Negative Normal NEG [facility] Comment on above: Performed By: #### C PDAU #### [address] [place] [address] Benzodiazepine(s) Negative Normal NEG [facility] Comment on above: Performed By: #### C PDAU #### [address] [place] [address] Buprenorphrine, Ur Negative Normal [facility] Comment on above: Performed By: #### C PDAU #### [address] [place] [address] Cannabinoid(s),Ur Negative Normal NEG [facility] Comment on above: Performed By: #### C PDAU #### [address] [place] [address] Cocaine Metabolite Negative Normal [facility] Comment on above: Performed By: #### C PDAU #### [address] [place] [address] Methadone Ql (U) Negative Normal [facility] Comment on above: Performed By: #### C PDAU #### [address] [place] [address] Methamphetamine, Ur Negative Normal NEG [facility] Comment on above: Performed By: #### C PDAU #### [address] [place] [address] Opiate(s), Ur Negative Normal NEG [facility] Comment on above: Performed By: #### C PDAU #### [address] [place] [address] Oxycodone, Urine Negative Normal NEG [facility] Comment on above: Performed By: #### C PDAU #### [address] [place] [address] Phencyclidine, Ur Negative Normal NE[facility] Comment on above: Performed By: #### C PDAU #### [address] [place] [address] Protein mass conc (U) Negative Normal NEG [facility] Comment on above: Performed By: #### C PDAU #### [address] [place] [address] Tricyclic antidepressants Screen Ql (U) Negative Normal NEG [facility] Comment on above: Result Comment: Drug screen results are to be used for medical purposes only. All positive results are unconfirmed. Testing for employment or legal uses should be sent to a reference laboratory for confirmation. Performed By: #### C PDAU #### [address] [place] [address] Interpretive Info NOT REPORTED Normal [facility] Comment on above: Performed By: #### C PDAU #### [address] [place] [address] MDMA, Urine NOT REPORTED Normal NEG [facility] Comment on above: Performed By: #### C PDAU #### [address] [place] [address] Coding Summary.on 12-11-2018 Coding Summary. CODING DATE: 019 [facility] STATUS: Home (Routine DC) PAYOR: Commercial Insurance [...] CphT Date Saved: 12/11/2018 09:36 am Normal [facility] 1st Trimesteron 12-09-2018 1st Trimester Exam Date/Time: [...] Transvaginal Ultrasound Performed Size = Dates Normal [facility] US Transvaginalon 12-09-2018 US Transvaginal Exam Date/Time: 12/09/2018 15:15 EST Reason for Exam: nausea hx of molar Report Please refer to ultrasound transabdominal first trimester report. FINAL REPORT Dictated: 12/09/2018 3:50 pm Aurelia Mullen MD Signed (Electronic Signature): 12/09/2018 3:50 pm Signed by: Aurelia Mullen MD Transcribed by: DARWIN Technologist: ADARSH Normal [facility] Progress Noteon 03-24-2018 HIM IP Note OR Billing Clinician Normal [facility] HCG, Quanton 03-22-2018 HCG, Quant 64 IU/L High <5 [facility] Comment on above: Result Comment: Non-preg premeno <=5 Postmeno <=8 Male <=3 If HCG results do not concur with clinical observations, additional testing to confirm result is recommended. This test is not labeled for use as a tumor marker. Performed at [address] [place] [address] ([phone] Performed By: #### C PDAU #### [address] [place] [address] HCG, Quanton 03-15-2018 HCG, Quant 613 IU/L High <5 [facility] Comment on above: Result Comment: Non-preg premeno <=5 Postmeno <=8 Male <=3 If HCG results do not concur with clinical observations, additional testing to confirm result is recommended. This test is not labeled for use as a tumor marker. Performed at [address] [place] [address] Performed By: #### C PDAU #### [address] [place] [address] OPERATIVE REPORTon 8 OPERATIVE REPORT [address] [place] [address] OPERATIVE REPORT PATIENT NAME: NORIS GOETZ : 1990 MED REC NO: [id number] ROOM: ACCOUNT NO: [id number] ADMIT DATE: 03/09/2018 PROVIDER: Chau Sorenson DATE [...] be correct. Of note, she will receive [place] 5/325 for any postoperative cramping, and I have ordered an hCG to be repeated in approximately one week. CHAU SORENSON [id number] Doc#: [id number] CC: Marianela Oliva Normal [facility] Surgical Pathologyon 018 Surgical Pathology (NOTE) [id number] [facility] CONSULTING PATHOLOGISTS [facility] ANATOMIC PATHOLOGY [address] [place] [phone] SURGICAL PATHOLOGY CONSULTATION Patient Name: NORIS GOETZ [facility] Rec: [id number] Path Number: [id number] Collected: 03/09/2018 Received: 03/10/2018 Reported: 03/11/2018 14:53 [...] grossly identified. Cystic structures are not evident. Copier Technician sections are submitted between sponges in A-H. tm Microscopic Description Most of the submitted tissue consists of blood clot and decidua with foci of necrosis and acute inflammation. Portions of endometrium show gestational change. There are rare immature, small avascular placental villi and a few associated syncytiotrophoblasts. Histologic changes to suggest gestational trophoblastic disease are absent. Normal [facility] Progress Noteon 03-08-2018 HIM IP Note OR Billing Clinician Normal [facility] Chlamydia/GC DNA, Uron 03-07 Protein mass conc Negative Normal NEG [facility] Comment on above: Result Comment: NEIS SERIA GONORRHOEAE DNA not detected by nucleic acid amplification. Performed at [facility] [address] [address] ([phone] Performed By: #### U CGP #### [address] [address] Result Comment: CHLA MYDIA TRACHOMATIS DNA not detected by nucleic acid amplification. HCG, Quanton 03-07-2018 HCG, Quant 51594 IU/L High <5 [facility] Comment on above: Result Comment: Non-preg premeno <=5 Postmeno <=8 Male <=3 If HCG results do not concur with clinical observations, additional testing to confirm result is recommended. This test is not labeled for use as a tumor marker. Performed at [address] [place] [address] Performed By: #### B HCG #### [address] [place] [address] RHIG, Transfuseon 03-07-2018 RHIG, Transfuse Unit Number [id number] /45 Blood Component Type RHIG Unit Division 00 Status of Unit TRANSFUSED Transfusion Status OK TO TRANSFUSE Performed at [address] [place] [address] Normal [facility] Comment on above: Performed By: #### T RHIG #### [address] [place] [address] Cult,Urine,CCon 03-05-2018 Cult,Urine,CC Specimen Description .URINE Performed at [address] [place] [address] Special Requests CCMS Performed at [address] [place] [address] Culture NO SIGNIFICANT GROWTH Performed at [address] [address] Report Status FINAL 03/04/2018 Normal [facility] Comment on above: Performed By: #### C INNA #### [address] [place] [address] HIV Ag/Abon 03-04-2018 HIV Ag/Ab NONREACTIVE Normal NR [facility] Comment on above: Result Comment: No l aboratory evidence of HIV infection. If acute HIV infection is suspected, consider testing for HIV-1 RNA. Performed at [address] [address] Performed By: #### H IVCMB #### [address] [address] Hep C Abon 03-04-2018 Hep C Ab NONREACTIVE Normal NR [facility] Comment on above: Result Comment: The [...] ordering HCV RNA by PCR. Performed at [address] [address] Performed By: #### A HCV #### [address] [address] Profileon 8 T.pallidum Ab Screen NONREACTIVE Normal [facility] Comment on above: Result Comment: T. pallidum antibodies are not detected. There is no serological evidence of infection with T. pallidum (early primary syphilis cannot be excluded). Retest in 2-4 weeks if syphilis is clinically suspect. Performed at [address] [address] Performed By: #### P RENAT #### [address] [address] Hep B Surf Ag NONREACTIVE Normal [facility] Comment on above: Performed By: #### P RENAT #### [address] [address] Rubella Ab, IgG 65.7 IU/mL Normal [facility] Comment on above: Result Comment: REFERENCE RANGE: <5.0 NON-REACTIVE (non-immune) 5.0 TO 9.9 EQUIVOCAL >=10.0 REACTIVE (immune) Performed By: #### P RENAT #### [facility] [address] [place], [place] [id number] Toxicology Scree, Urineon Amphetamine(s),Ur Negative Normal NEG [facility] Comment on above: Performed By: #### C PDAU #### [address] [place] [address] Barbiturate(s),Ur Negative Normal NEG [facility] Comment on above: Performed By: #### C PDAU #### [address] [place] [address] Benzodiazepine(s) Negative Normal NEG [facility] Comment on above: Performed By: #### C PDAU #### [address] [place] [address] Buprenorphrine, Ur Negative Normal NEG [facility] Comment on above: Result Comment: Perf ormed at [address] [place] [address] Performed By: #### C PDAU #### [address] [place] [address] Cannabinoid(s),Ur Negative Normal [facility] Comment on above: Performed By: #### C PDAU #### [address] [place] [address] Cocaine Metabolite Negative Normal [facility] Comment on above: Performed By: #### C PDAU #### [address] [place] [address] Methadone Ql (U) Negative Normal NEG [facility] Comment on above: Performed By: #### C PDAU #### [address] [place] [address] Methamphetamine, Ur Negative Normal [facility] Comment on above: Performed By: #### C PDAU #### [address] [place] [address] Opiate(s), Ur Negative Normal NEG [facility] Comment on above: Performed By: #### C PDAU #### [address] [place] [address] Oxycodone, Urine Negative Normal NEG [facility] Comment on above: Performed By: #### C PDAU #### [address] [place] [address] Phencyclidine, Ur Negative Normal NE[facility] Comment on above: Performed By: #### C PDAU #### [address] [place] [address] Protein mass conc (U) Negative Normal NEG [facility] Comment on above: Performed By: #### C PDAU #### [address] [place] [address] Tricyclic antidepressants Screen Ql (U) Negative Normal NEG [facility] Comment on above: Result Comment: Drug screen results are to be used for medical purposes only. All positive results are unconfirmed. Testing for employment or legal uses should be sent to a reference laboratory for confirmation. Performed By: #### C PDAU #### [address] [place] [address] Profileon 8 Abs. Basophil 0.05 k/uL Normal 0.00-0.20 [facility] Comment on above: Performed By: #### P RENAT #### [employer] [address] [place], [place] [id number] Abs.Imm.Granulocyte 0.04 k/uL Normal 0.00-0.30 [facility] Comment on above: Performed By: #### P RENAT #### [facility] [employer] [address] [place], [place] [phone] Abs.Neutrophil (Seg) 5.60 k/uL Normal 1.50-8.10 [facility] Comment on above: Performed By: #### P RENAT #### [address] [address] Basophils/100 WBC (Bld) 1 % Normal 0-2 [facility] Comment on above: Performed By: #### P RENAT #### [address] [address] Eosinophils #/vol (Bld) 0.18 10*3/uL Normal 0.00-0.44 [facility] Comment on above: Performed By: #### P RENAT #### [address] [address] Eosinophils/100 WBC (Bld) 2 % Normal 1-4 [facility] Comment on above: Performed By: #### P RENAT #### [address] [address] Erythrocyte distribution width Ratio (RBC) 13.0 % Normal 11.8-14.4 [facility] Comment on above: Performed By: #### P RENAT #### [address] [address] Hematocrit Volume Fraction (Bld) 39.1 % Normal 36.3-47.1 [facility] Comment on above: Performed By: #### P RENAT #### [address] [address] Hemoglobin mass conc (Bld) 12.6 g/dL Normal 11.9-15.1 [facility] Comment on above: Performed By: #### P RENAT #### [address] [address] Immature granulocytes #/vol (Bld) 1 % High 0 [facility] Comment on above: Performed By: #### P RENAT #### [address] [address] Lymphocytes #/vol (Bld) 2.18 10*3/uL Normal 1.10-3.70 [facility] Comment on above: Performed By: #### P RENAT #### [address] [address] Lymphocytes/100 WBC (Bld) 25 % Normal 24-43 [facility] Comment on above: Performed By: #### P RENAT #### [address] [address] MCH Entitic mass (RBC) 26.9 pg Normal 25.2-33.5 [facility] Comment on above: Performed By: #### P RENAT #### [address] [address] MCHC mass conc (RBC) 32.2 g/dL Normal 28.4-34.8 [facility] Comment on above: Performed By: #### P RENAT #### [address] [address] MCV Entitic volume (RBC) 83.4 fL Normal 82.6-102.9 [facility] Comment on above: Performed By: #### P RENAT #### [address] [address] Monocytes #/vol (Bld) 0.79 10*3/uL Normal 0.10-1.20 [facility] Comment on above: Performed By: #### P RENAT #### [address] [address] Monocytes/100 WBC (Bld) 9 % Normal 3-12 [facility] Comment on above: Performed By: #### P RENAT #### [address] [address] Neutrophil (Seg) 62 % Normal 36-65 [facility] Comment on above: Performed By: #### P RENAT #### [facility] [address] [place] [address] NRBC Automated 0.0 per 100 WBC Normal 0.0 [facility] Comment on above: Performed By: #### P RENAT #### [facility] [employer] [address] [place] [address] Platelet mean volume Entitic volume (Bld) 11.2 fL Normal 8.1-13.5 [facility] Comment on above: Performed By: #### P RENAT #### [facility] [address] [place] [address] Platelets #/vol (Bld) 243 10*3/uL Normal 138-453 [facility] Comment on above: Performed By: #### P RENAT #### [facility] [employer] [address] [place] [address] RBC #/vol (Bld) 4.69 10*6/uL Normal 3.95-5.11 [facility] Comment on above: Performed By: #### P RENAT #### [facility] [employer] [address] [place] [address] WBC #/vol (Bld) 8.8 10*3/uL Normal 3.5-11.3 [facility] Comment on above: Performed By: #### P RENAT #### [facility] [employer] [address] [place] [address] Auto Diff Performed NOT REPORTED Normal [facility] Comment on above: Performed By: #### P RENAT #### [facility] [employer] [address] [place] [address] Platelets #/vol (Bld) NOT REPORTED Normal [facility] Comment on above: Performed By: #### P RENAT #### [facility] [address] [place] [address] RBC morphology finding Nom (Bld) NOT REPORTED Normal [facility] Comment on above: Performed By: #### P RENAT #### [facility] [address] [place], [place] [id number] WBC Morphology NOT REPORTED Normal [facility] Comment on above: Performed By: #### P RENAT #### [place] [address] [place] [address] Type + Scrnon 03-03 Type + Scrn ABO/Rh(D) B NEGATIV E Antibody Screen NEGATIVE Performed at [address] [place], [place] [address] [phone] Normal [facility] Comment on above: Performed By: #### P RTYS #### [address] [place] [address] Progress Noteon 03-03-2018 HIM IP Note OR Billing Clinician Normal [facility] Toxicology Scree, Urineon Interpretive Info NOT REPORTED Normal [facility] Comment on above: Performed By: #### C PDAU #### [address] [place], [place] [id number] MDMA, Urine NOT REPORTED Normal NEG [facility] Comment on above: Performed By: #### C PDAU #### [address] [place] [address] Hep Bs Abon 01-22-2018 HBV surface Ab Ql (S) Reactive [facility] Comment on above: Result Comment: Non Reactive: Inconsistent with immunity, less than 10 mIU/mL Reactive: Consistent with immunity, greater than 9.9 mIU/mL Performed at: [facility] [address] [place], [place] [id number] PhD Sumeet Merrill Performed By: #### 2 [id number], [id number] #### [facility] [address] [place] [address] Varic IgGon 01-22-2018 VZV IgG IA Qn (S) 574 Immune >165 [facility] Comment on above: Result Comment: Nega tive <135 Equivocal 135 - 165 Positive >165 A positive result generally indicates exposure to the pathogen or administration of specific immunoglobulins, but it is not indication of active infection or stage of disease. Performed at: [facility] [id number] PhD Sumeet Merrill Performed By: #### 2 [id number], [id number] #### [facility] [address] [place] [address] Progress Noteon 11-18-2017 HIM IP Note OR Billing Clinician Normal [facility] Vital Signs Date Time Vital Sign Value Performing Clinician Facility 07-05-2025 09:48-0400 Body mass index (BMI) [Ratio] 35.55 kg/m2 Yasmani Kaylen DO Work Phone: [facility] 07-05-2025 09:48-0400 Body weight 106.05 kg Yasmani Kaylen DO Work Phone: [facility] 07-05-2025 09:48-0400 Diastolic blood pressure 78 mm[Hg] Yasmani Kaylen DO Work Phone: [facility] 07-05-2025 09:48-0400 Systolic blood pressure 110 mm[Hg] Yasmani Kaylen DO Work Phone: [facility] 06-21-2025 09:54-0400 Body mass index (BMI) [Ratio] 35.12 kg/m2 Yasmani Kaylen DO Work Phone: [facility] 06-21-2025 09:54-0400 Body weight 104.78 kg Yasmani Kaylen DO Work Phone: [facility] 06-21-2025 09:54-0400 Diastolic blood pressure 72 mm[Hg] Yasmani Kaylen DO Work Phone: [facility] 06-21-2025 09:54-0400 Systolic blood pressure 124 mm[Hg] Yasmani Kaylen DO Work Phone: [facility] 06-12-2025 08:32-0400 Body height 170.18 cm Marianela Oliva MD Work Phone: [facility] 06-12-2025 08:32-0400 Body mass index (BMI) [Ratio] 36.1 kg/m2 Marianela Oliva MD Work Phone: [facility] 06-12-2025 08:32-0400 Body weight 104.77 kg Marianela Oliva MD Work Phone: [facility] 06-12-2025 08:32-0400 Diastolic blood pressure 81 mm[Hg] Marianela Oliva MD Work Phone: [facility] 06-12-2025 08:32-0400 Heart rate 88 /min Marianela Oliva MD Work Phone: [facility] 06-12-2025 08:32-0400 Respiratory rate 12 /min Marianela Oliva MD Work Phone: [facility] 06-12-2025 08:32-0400 SaO2% (BldA) [Mass fraction] 97 % Marianela Oliva MD Work Phone: [facility] 06-12-2025 08:32-0400 Systolic blood pressure 119 mm[Hg] Marianela Oliva MD Work Phone: [facility] 06-07-2025 10:26-0400 Body mass index (BMI) [Ratio] 35.14 kg/m2 Yasmani Kaylen DO Work Phone: [facility] 06-07-2025 10:260400 Body weight 104.83 kg Yasmani Kaylen DO Work Phone: [facility] 06-07-2025 10:26-0400 Diastolic blood pressure 70 mm[Hg] Yasmani Kaylen DO Work Phone: [facility] 06-07-2025 10:26-0400 Systolic blood pressure 112 mm[Hg] Yasmani Kaylen DO Work Phone: [facility] 05-22-2025 11:13-0400 Body mass index (BMI) [Ratio] 34.64 kg/m2 Yasmani Kaylen DO Work Phone: [facility] 05-22-2025 11:13-0400 Body weight 103.33 kg Yasmani Kaylen DO Work Phone: [facility] 05-22-2025 11:13-0400 Diastolic blood pressure 72 mm[Hg] Yasmani Kaylen DO Work Phone: [facility] 05-22-2025 11:13-0400 Systolic blood pressure 110 mm[Hg] Yasmani Kaylen DO Work Phone: [facility] 05-10-2025 08:31-0400 Body mass index (BMI) [Ratio] 34.25 kg/m2 Yasmani Kaylen DO Work Phone: [facility] 05-10-2025 08:31-0400 Body weight 102.17 kg Yasmani Kaylen DO Work Phone: [facility] 05-10-2025 08:31-0400 Diastolic blood pressure 78 mm[Hg] Yasmani Kaylen DO Work Phone: [facility] 05-10-2025 08:31-0400 Systolic blood pressure 124 mm[Hg] Aysmani Kaylen DO Work Phone: [facility] 04-10-2025 10:38-0400 Body mass index (BMI) [Ratio] 33.88 kg/m2 Yasmani Kaylen DO Work Phone: [facility] 04-10-2025 10:38-0400 Body weight 101.06 kg Yasmani Kaylen DO Work Phone: [facility] 04-10-2025 10:38-0400 Diastolic blood pressure 68 mm[Hg] Yasmani Kaylen DO Work Phone: [facility] 04-10-2025 10:38-0400 Systolic blood pressure 108 mm[Hg] Yasmani Kaylen DO Work Phone: [facility] 03-15-2025 10:00-0400 Body mass index (BMI) [Ratio] 33.27 kg/m2 Yasmani Kaylen DO Work Phone: [facility] 05-29-2025 10:00-0400 Body weight 99.25 kg Yasmani Kaylen DO Work Phone: [facility] 03-15-2025 10:00-0400 Diastolic blood pressure 70 mm[Hg] Yasmani Kaylen DO Work Phone: [facility] 03-15-2025 10:00-0400 Systolic blood pressure 110 mm[Hg] Yasmani Kaylen DO Work Phone: [facility] 02-15-2025 09:37-0400 Body mass index (BMI) [Ratio] 32.96 kg/m2 Yasmani Kaylen DO Work Phone: [facility] 02-15-2025 09:37-0400 Body weight 98.34 kg Yasmani Kaylen DO Work Phone: [facility] 02-15-2025 09:37-0400 Diastolic blood pressure 70 mm[Hg] Yasmani Kaylen DO Work Phone: [facility] 02-15-2025 09:37-0400 Systolic blood pressure 110 mm[Hg] Yasmani Kaylen DO Work Phone: [facility] 01-18-2025 09:45-0400 Body mass index (BMI) [Ratio] 32.1 kg/m2 Yasmani Kaylen DO Work Phone: [facility] 01-18-2025 09:45-0400 Body weight 95.77 kg Yasmani Kaylen DO Work Phone: [facility] 01-18-2025 09:45-0400 Diastolic blood pressure 80 mm[Hg] Yasmani Kaylen DO Work Phone: [facility] 01-18-2025 09:45-0400 Systolic blood pressure 100 mm[Hg] Yasmani Kaylen DO Work Phone: [facility] 12-06-2024 09:47-0500 Heart rate 75 /min Marianela Oliva MD Work Phone: [facility] 12-06-2024 09:47-0500 Respiratory rate 16 /min Marianela Oliva MD Work Phone: [facility] 12-06-2024 07:53-0500 Body height 170.18 cm Marianela Oliva MD Work Phone: [facility] 12-06-2024 07:53-0500 Body temperature 98.2 [degF] Marianela Oliva MD Work Phone: [facility] 12-06-2024 07:53-0500 Body weight 90.71 kg Marianela Oliva MD Work Phone: [facility] 12-06-2024 07:53-0500 Diastolic blood pressure 60 mm[Hg] Marianela Oliva MD Work Phone: [facility] 12-06-2024 07:53-0500 SaO2% (BldA) [Mass fraction] 99 % Marianela Oliva MD Work Phone: [facility] 12-06-2024 07:53-0500 Systolic blood pressure 121 mm[Hg] Marianela Oliva MD Work Phone: [facility] 08-15-2024 09:05-0400 Body height 172.72 cm MD Marianela Oliva Work Phone: [facility] 08-15-2024 09:05-0400 Body mass index (BMI) [Ratio] 32.1 kg/m2 MD Marianela Oliva Work Phone: [facility] 08-15-2024 09:05-0400 Body weight 95.7 kg MD Marianela Oliva Work Phone: [facility] 08-15-2024 09:05-0400 Diastolic blood pressure 85 mm[Hg] MD Marianela Oliva Work Phone: [facility] 08-15-2024 09:05-0400 Heart rate 80 /min MD Marianela Oliva Work Phone: [facility] 08-15-2024 09:05-0400 Systolic blood pressure 125 mm[Hg] MD Marianela Oliva Work Phone: [facility] 08-11-2024 09:14-0400 Body height 172.72 cm MD Marianela Oliva Work Phone: [facility] 08-11-2024 09:14-0400 Body mass index (BMI) [Ratio] 31.9 kg/m2 MD Marianela Oliva Work Phone: [facility] 08-11-2024 09:14-0400 Body temperature 97.8 [degF] MD Marianela Oliva Work Phone: [facility] 08-11-2024 09:14-0400 Body weight 95.25 kg MD Marianela Oliva Work Phone: [facility] 08-11-2024 09:14-0400 Diastolic blood pressure 72 mm[Hg] MD Marianela Oliva Work Phone: [facility] 08-11-2024 09:14-0400 Heart rate 99 /min MD Marianela Oliva Work Phone: [facility] 08-11-2024 09:14-0400 Respiratory rate 18 /min MD Marianela Oliva Work Phone: [facility] 08-11-2024 09:14-0400 SaO2% (BldA) [Mass fraction] 96 % MD Marianela Oliva Work Phone: [facility] 08-11-2024 09:14-0400 Systolic blood pressure 106 mm[Hg] MD Marianela Oliva Work Phone: [facility] 05-18-2024 10:41-0400 Body height 173.99 cm MD Marianela Oliva Work Phone: [facility] 05-18-2024 10:41-0400 Body mass index (BMI) [Ratio] 32.2 kg/m2 MD Marianela Oliva Work Phone: [facility] 05-18-2024 10:41-0400 Body weight 97.52 kg MD Marianela Oliva Work Phone: [facility] 05-18-2024 10:41-0400 Diastolic blood pressure 82 mm[Hg] MD Marianela Oliva Work Phone: [facility] 05-18-2024 10:41-0400 Heart rate 72 /min MD Marianela Oliva Work Phone: [facility] 05-18-2024 10:41-0400 Systolic blood pressure 117 mm[Hg] MD Marianela Oliva Work Phone: [facility] 01-07-2022 12:45-0400 Body height 170.18 cm Regina Missler Other [facility] Other 01-07-2022 12:45-0400 Body temperature 98.9 [degF] Regina Missler Other [facility] Other 01-07-2022 12:45-0400 Diastolic blood pressure 81 mm[Hg] Regina Missler Other [facility] Other 01-07-2022 12:45-0400 Respiratory rate 18 /min Regina Missler Other [facility] Other 01-07-2022 12:45-0400 SaO2% (BldA) [Mass fraction] Regina Missler Other [facility] Other 01-07-2022 12:45-0400 Systolic blood pressure 121 mm[Hg] Regina Missler Other [facility] Other Encounters Encounter Date Encounter Type Care Provider Facility Start: 07-05-2025 End: 07-05-2025 Bamboo flowsheet Yasmani Kaylen DO Work Phone: [facility] Start: 07-05-2025 End: 07-05-2025 Bamboo flowsheet Yasmani Kaylen DO Work Phone: [facility] Start: 07-05-2025 End: 07-05-2025 flow sheet Yasmani Kaylen DO Work Phone: [facility] Comment on above: 36 weeks gestation o f ([facility]); Third trimester ([facility]); Multigravida of advanced maternal age in third trimester ([facility]); History of molar ; Antepartum multigravida of advanced maternal age ([facility]) Start: 07-04-2025 End: 07-04-2025 Clinisync Result Encounter Yasmani Kaylen DO Work Phone: [facility] Unsolicited Start: 07-04-2025 End: 07-04-2025 Clinisync Result Encounter Yasmani Kaylen DO Work [...] Comment on above: Third trimester preg lisa ([facility]); 34 weeks gestation of ([facility]); Multigravida of advanced maternal age in third trimester ([facility]) Start: 06-21-2025 End: 06-21-2025 ambulatory YASMANI KAYLEN Not Available Start: 06-19-2025 End: 06-19-2025 Clinisync Result Encounter Yasmani Kaylen DO Work Phone: [facility] Unsolicited Start: 06-19-2025 End: 06-19-2025 Clinisync Result Encounter Yasmani Kaylen DO Work Phone: [facility] Unsolicited Start: 06-12-2025 End: 06-12-2025 ambulatory Marianela Oliva MD Work Phone: [facility] Work Phone: Start: 06-12-2025 End: 06-12-2025 Patient encounter procedure Marianela Oliva MD -[facility] Work Phone: Start: 06-07-2025 End: 06-07-2025 Bamboo flowsheet Yasmani Kaylen DO Work Phone: [facility] Start: 06-07-2025 End: 06-07-2025 Bamboo flowsheet Yasmani Kaylen DO Work Phone: [facility] Start: 06-07-2025 End: 06-07-2025 flow sheet Yasmani Kaylen DO Work Phone: [facility] Comment on above: Third trimester preg lisa ([facility]); 32 weeks gestation of ([facility]); Multigravida of advanced maternal age in third trimester ([facility]) Start: 06-07-2025 End: 06-07-2025 ambulatory YASMANI KAYLEN Not Available Start: 05-22-2025 End: 05-22-2025 flow sheet Yasmani Kaylen DO Work Phone: [facility] Comment on above: 30 weeks gestation o f ([facility]); Third trimester ([facility] Antepartum multigravida of advanced maternal age ([facility]); Gestational diabetes mellitus (GDM), antepartum, gestational diabetes method of control unspecified ([facility]) Start: 05-22-2025 End: 05-22-2025 ambulatory YASMANI KAYLEN Not Available Start: 05-10-2025 End: 05-10-2025 Bamboo flowsheet Yasmani Kaylen DO Work Phone: [facility] Start: 05-10-2025 End: 05-10-2025 Bamboo flowsheet Yasmani Kaylen DO Work Phone: [facility] Start: 05-10-2025 End: 05-10-2025 flow sheet Yasmani Kaylen DO Work Phone: [facility] Comment on above: size consisten t with dates, antepartum ([facility]) (Primary Dx); Third trimester ([facility]); 28 weeks gestation of ([facility]); Antepartum multigravida of advanced maternal age ([facility]) Start: 05-10-2025 End: 05-10-2025 ambulatory YASMANI KAYLEN Not Available Start: 04-10-2025 End: 04-10-2025 Bamboo flowsheet Yasmani Kaylen DO Work Phone: [facility] Start: 04-10-2025 End: 04-10-2025 Bamboo flowsheet Yasmani Kaylen DO Work Phone: [facility] Start: 04-10-2025 End: 04-10-2025 flow sheet Yasmani Kaylen DO Work Phone: [facility] Comment on above: Second trimester pre gnancy ([facility]); 24 weeks gestation of ([facility]); Diabetes mellitus screening Start: 04-10-2025 End: 04-10-2025 ambulatory YASMANI KAYLEN Not Available Start: 04-02-2025 End: 04-02-2025 Departed Referred Mario Valle DO -[facility] Start: 04-02-2025 End: 04-02-2025 ambulatory Mario Perez - [facility] Facility:[facility] Start: 03-15-2025 End: 03-15-2025 flow sheet Yasmani Kaylen DO Work Phone: [facility] Comment on above: 20 weeks gestation o f ; Second trimester ; Anxiety, generalized ([facility]) Start: 03-15-2025 End: 03-15-2025 ambulatory YASMANI KAYLEN Not Available Start: 03-15-2025 End: 03-15-2025 ambulatory YASMANI KAYLEN Not Available Start: 03-14-2025 End: 03-14-2025 External Result Encounter Yasmani Kaylen DO Work Phone: [facility] Unsolicited Start: 03-14-2025 End: 03-14-2025 External Result Encounter Yasmani Kaylen DO Work Phone: [facility] Unsolicited Start: 03-14-2025 End: 03-14-2025 Patient encounter procedure Marianela Oliva MD Work Phone: [facility] Start: 03-14-2025 End: 03-14-2025 ambulatory Marianela Oliva MD Work Phone: [facility] Work Phone: Start: 02-15-2025 End: 02-15-2025 Bamboo [...] Non-visit Marianela Oliva MD Work Phone: [facility] Work Phone: Start: 02-15-2025 End: 02-15-2025 Patient encounter procedure Yasmani Kaylen DO Work Phone: [facility] Work Phone: Start: 02-15-2025 End: 02-15-2025 Periodic preventive med est patient 18-39 yrs Yasmani Kaylen DO Work Phone: [facility] Comment on above: Well [...] Bamboo flowsheet Yasmani Kaylen DO Work Phone: [facility] Start: 01-18-2025 End: 01-18-2025 flow sheet Yasmani Kaylen DO Work Phone: [facility] Comment on above: First trimester preg lisa; 12 weeks gestation of ; Antepartum multigravida of advanced maternal age Start: 01-18-2025 End: 01-18-2025 ambulatory YASMANI KAYLEN Not Available Start: 12-27-2024 End: 12-27-2024 Patient encounter procedure Marianela Oliva MD Work Phone: [facility] Start: 12-27-2024 End: 12-27-2024 ambulatory Marianela Oliva MD Work Phone: [facility] Work Phone: Start: 12-21-2024 End: 12-21-2024 ambulatory YASMANI KAYLEN Not Available Start: 12-07-2024 Non-patient / Non-visit Marianela Oliva MD Work Phone: [facility] Work Phone: Start: 12-06-2024 End: 12-06-2024 Emergency department patient visit Marianela Oliva MD Work Phone: [facility] Work Phone: Start: 12-05-2024 End: 12-05-2024 Telephone encounter Yasmani Abdullahi DO Work Phone: [facility] Start: 08-15-2024 Patient encounter status Pooja Oliva MD Work Phone: [facility] Start: 08-15-2024 End: 08-15-2024 ambulatory MD Marianela Oliva Work Phone: [facility] Work Phone: Start: 08-15-2024 End: 08-15-2024 Patient encounter procedure MD Marianela Oliva Work Phone: [facility] Work Phone: Start: 08-11-2024 End: 08-11-2024 ambulatory MD Marianela Oliva Work Phone: [facility] Work Phone: Start: 08-11-2024 End: 08-11-2024 Patient encounter procedure MD Marianela Oliva Work Phone: [facility], [facility] Work Phone: Start: 08-01-2024 End: 08-01-2024 ambulatory MD Marianela Oliva Work Phone: [facility] Work Phone: Start: 08-01-2024 End: 08-01-2024 Departed Referred MD Marianela Oliva Work Phone: [facility] Work Phone: Start: 05-23-2024 End: 05-23-2024 Patient encounter procedure MD Marianela Oliva Work Phone: [facility] Work Phone: Start: 05-23-2024 End: 05-23-2024 ambulatory MD Marianela Oliva Work Phone: [facility] Work Phone: Start: 05-18-2024 End: 05-18-2024 ambulatory MD Marianela Oliva Work Phone: [facility] Work Phone: Start: 05-18-2024 End: 05-18-2024 Patient encounter procedure MD Marianela Oliva Work Phone: [facility] Work Phone: Start: 05-17-2024 End: 05-17-2024 Departed Referred MD Marianela Oliva Work Phone: [facility] Start: 05-17-2024 End: 05-17-2024 ambulatory MD Marianela Oliva Work Phone: [facility] Work Phone: Start: 07-12-2023 End: 07-12-2023 ambulatory MD Marianela Oliva Work Phone: [facility] Work Phone: Start: 07-12-2023 End: 07-12-2023 Departed Referred MD Marianela Oliva Work Phone: [facility]-Employee Benefit Screening Start: 02-23-2023 End: 02-23-2023 ambulatory MD Marianela Oliva Work Phone: [facility] Work Phone: Start: 02-23-2023 End: 02-23-2023 Patient encounter procedure MD Marianela Oliva Work Phone: [facility] Work Phone: Start: 02-04-2023 End: 02-04-2023 ambulatory Marianela Oliva Other [facility] Other Start: 02-04-2023 Office outpatient vi sit 15 minutes Marianela Oliva [facility] Start: 02-04-2023 Telephone encounter Marianela Oliva [facility] Start: 01-29-2023 End: 01-29-2023 ambulatory Marianela Oliva Other [facility] Other Start: 01-29-2023 Telephone encounter Marianela Oliva [facility] Start: 12-15-2022 End: 12-15-2022 Departed Referred MD Marianela Oliva Work Phone: [facility] Work Phone: Start: 12-04-2022 End: 12-04-2022 ambulatory Marianela Oliva Other [facility] Other Start: 12-04-2022 Telephone encounter Marianela Oliva [facility] Start: 11-10-2022 End: 11-10-2022 ambulatory MD Marianela Oliva Work Phone: [facility] Work Phone: Start: 11-10-2022 End: 11-10-2022 Departed Referred MD Marianela Oliva Work Phone: [facility] Work Phone: Start: 08-07-2022 End: 08-07-2022 ambulatory Regina Huddleston Other [facility] Other Start: 08-07-2022 [facility] Start: 06-26-2022 End: 06-26-2022 ambulatory MD Marianela Oliva Work Phone: [facility] Work Phone: Start: 06-26-2022 End: 06-26-2022 Departed Referred MD Marianela Oliva Work Phone: [facility]-Employee Benefit Screening Start: 01-07-2022 End: 01-07-2022 ambulatory Reginaher Marieler Other [facility] Other Start: 01-07-2022 Patient encounter procedure Regina [facility] Start: 12-22-2018 End: 12-23-2018 Patient encounter procedure CHAU W [facility] Start: 12-09-2018 End: 12-10-2018 Patient encounter procedure CHAU SORENSON Facility[place] Start: 06-14-2018 Patient encounter MARIANELA OLIVA Fac ility:[facility] Start: 03-22-2018 End: 03-23-2018 Patient encounter procedure CHAU Mcclain [facility] Start: 03-15-2018 End: 03-16-2018 Patient encounter procedure CHAU Mcclain [facility] Start: 03-09-2018 End: 03-09-2018 Patient encounter procedure CHAU W [facility] Start: 03-07-2018 End: 03-08-2018 Patient encounter procedure CHAU W [facility] Start: 03-03-2018 End: 03-04-2018 Patient encounter procedure CHAU W [facility] Start: 03-03-2018 End: 03-03-2018 Patient encounter procedure CHAU Mcclain [facility] Start: 01-20-2018 End: 01-21-2018 Patient encounter procedure Macario Latashajacquelin Facility[place] Procedures Date Procedure Procedure Detail Performing Clinician Start: 07-05-2025 Urnls dip stick/tabl et rgnt non-auto w/o micrscp Yasmani Kaylen DO Work Phone: Start: 07-04-2025 US OB BPP W NON-STRESS Yasmani Kaylen DO Work Phone: Start: 06-27-2025 US OB BPP W NON-STRESS [...] Phone: Start: 12-27-2024 Antibody screen Mario Khalil [facility] Comment on above: Order Comment: NONFA STING.JKW Result Comment: PERF ORMED BY: [facility] [address] [place] [address] PATHOLOGIST BUSINESS PRACTICES SUPERVISOR LEÓN GARCIA M.D. Start: 12-06-2024 Diagnostic ultrasoun [...] EY BRITTNI Start: 03-09-2018 DISCHARGE PATIENT LORELEI Phelan BRITTNI Start: 03-09-2018 ASSESS CHAU HED GES Start: 03-09-2018 BEDREST CHAU HED GES Start: 03-09-2018 Continuous pulse oximetry CHAU [...] [place] Start: 03-03-2018 PROFILE I JUAN DAVIDL EY BRITTNI Start: 03-03-2018 TYPE AND SCREEN CHAU SORENSON Start: 03-03-2018 RHOGAM INJECTION ONLY W DENG SORENSON Start: 03-03-2018 URINE CULTURE CLEAN CATCH CHAU SORENSON Start: 03-03-2018 URINE DRUG SCREEN, COMPREHENSIVE CHAU SORENSON Plan of Treatment Date Care Activity Detail Author Start: 08-28-2025 End: 08-28-2025 ambulatory [facility] Start: 07-12-2025 End: 07-12-2025 Patient encounter procedure 07/12/2025 9:10 AM EDT Routine [facility] [address] [id number] Lanie Mendez, [employer]TER [employer] [address] [place] [id number] [facility] Start: 07-09-2025 End: 07-09-2025 Patient encounter procedure 07/09/2025 4:00 PM EDT Routine [facility] [facility] [address] [phone] Yasmani Abdullahi DO [address] [place], [place] [id number] [facility] Start: 07-05-2025 End: 07-05-2026 CULTURE, GROUP B STREP WITH SUSCEPTIBLITY CULTURE, GROUP B STREP WITH SUSCEPTIBLITY Lab Routine Third trimester ([facility]) Expected: 07/05/2025, Expires: 07/05/2026 [facility] Work Phone: Comment on above: Expected: 07/05/2025 , Expires: 07/05/2026 Start: 07-05-2025 End: 07-05-2025 Patient encounter procedure [facility] Comment on above: Arrived Start: 06-21-2025 End: 06-21-2025 Patient encounter procedure 06/21/2025 9:40 AM EDT Routine [facility] [address] [phone] Yasmani Abdullahi, [address] [place] [address] [facility] Start: 06-21-2025 End: 06-21-2025 Professional / ancillary services management 06/21/2025 9:00 AM EDT Ancillary Procedure [facility] [address] [place] [address] [facility] Start: 06-07-2025 End: 12-08-2025 US biophysical profile w non stress test US biophysical profile w non stress test Imaging Routine Multigravida of advanced maternal age in third trimester ([facility]) Expected: 06/07/2025 (Approximate), Expires: 12/08/2025 [facility] Work Phone: Comment on above: Expected: 06/07/2025 (Approximate), Expires: 12/08/2025 Start: 06-07-2025 End: 06-07-2025 Patient encounter procedure [facility] Comment on above: Arrived Start: 05-22-2025 End: 05-22-2025 Patient encounter procedure 05/22/2025 11:00 AM EDT Routine [facility] [address] [address] Yasmani Abdullahi, DO [address] [place] [address] [facility] Start: 05-22-2025 End: 05-22-2025 Professional / ancillary services management 05/22/2025 10:30 AM EDT Ancillary Procedure [facility] [address] [place] [address] [facility] Start: 05-10-2025 End: 09-10-2025 US for US OB follow up transabdominal approach Imaging Routine Antepartum multigravida of advanced maternal age ([facility]) Expected: 05/10/2025, Expires: 09/10/2025 [facility] [...] Routine [facility] [address] [place] [phone] Yasmani Abdullahi DO [address] [place] [address] [place] [address] [facility] Start: 03-15-2025 End: 03-15-2025 Professional / ancillary services management 03/15/2025 8:30 AM EDT Ancillary Procedure [facility] [address] [phone] [facility] Start: 02-15-2025 End: 03-18-2025 Alpha fetoprotein, maternal Alpha fetoprotein, maternal Lab Routine 16 weeks gestation of Second trimester Expected: 02/15/2025 (Approximate), Expires: 03/18/2025 [facility] Comment on above: Expected: 02/15/2025 (Approximate), Expires: 03/18/2025 Start: 02-15-2025 End: 05-18-2025 US for US OB 14+ weeks anatomy scan Imaging Routine Screening, , for anatomic survey Expected: 02/15/2025, Expires: 05/18/2025 [facility] Comment on above: Expected: 02/15/2025 , Expires: 05/18/2025 Start: 02-15-2025 End: 02-15-2025 Patient encounter procedure [facility] Comment on above: Arrived Start: 01-18-2025 End: 01-18-2025 Patient encounter procedure 01/18/2025 8:40 AM EDT Routine [facility] [address] [phone] Yasmani Abdullahi, DO [address] [place] [address] [place] [address] Arrived [facility] Comment on above: Arrived Start: 12-27-2024 Bacteria identified in Urine by Culture Urine Culture [facility] Start: 12-27-2024 Rubella IgG measurement [facility] Start: 12-27-2024 Urine culture [facility] Start: 12-27-2024 [facility] Start: 12-21-2024 End: 12-21-2024 ambulatory 12/21/2024 1:30 PM EST Initial [facility] [address] [address] [facility] Start: 12-21-2024 End: 12-21-2024 Professional / ancillary services management 12/21/2024 1:00 PM EST Ancillary Procedure [facility] [address] [address] [facility] Start: 12-06-2024 Diagnostic ultrasoun d of gravid uterus [facility] Start: 07-12-2023 [facility] CHLAMYDIA TRACHOMATI S (GENITO/STI) CHLAMYDIA TRACHOMATIS (GENITO/STI) Lab Routine Exposure to STD 16 weeks gestation of Second trimester Ordered: 02/15/2025 [facility] Comment on above: Ordered: 02/15/2025 Cytology Cervical or vaginal smear or scraping study Pap Smear Pathology and Cytology Routine Well woman exam with routine gynecological exam Ordered: 02/15/2025 [facility] Comment on above: Ordered: 02/15/2025 Hepatitis B virus surface Ag [Presence] in Serum or Plasma by Immunoassay [facility] Hepatitis C virus Ig G Ab [Presence] in Serum or Plasma by Immunoassay [facility] HIV 1+2 Ab+HIV1 p24 Ag [Presence] in Serum or Plasma by Immunoassay [facility] Human papilloma viru s DNA [Presence] in Unspecified specimen by Probe with amplification HPV DNA probe, amplified Microbiology Routine Well woman exam with routine gynecological exam Ordered: 02/15/2025 [facility] Comment on above: Ordered: 02/15/2025 Measurement of gluco se 1 hour after glucose challenge for glucose tolerance test GTT, 1 hour Lab Routine Antepartum multigravida of advanced maternal age Ordered: 01/18/2025 [facility] Work Phone: Comment on above: Ordered: 01/18/2025 Neisseria gonorrhoea e DNA [Presence] in Unspecified specimen by CORBY with probe detection Neisseria gonorrhea DNA probe, direct Lab Routine Exposure to STD 16 weeks gestation of Second trimester Ordered: 02/15/2025 [facility] Comment on above: Ordered: 02/15/2025 Patient Education Stomach Pain i n Early [facility] Work Phone: Patient referral [facility]ly [facility] Work Phone: Reagin Ab [Presence] in Serum by RPR [facility] SURESWAB(R) ADVANCED VAGINITIS PLUS, TMA SURESWAB(R) ADVANCED VAGINITIS PLUS, TMA Pathology and Cytology Routine Vaginal discharge Exposure to STD 16 weeks gestation of Second trimester Ordered: 02/15/2025 [facility] Work Phone: Comment on above: Ordered: 02/15/2025 [facility] Immunizations Immunization Date Immunization Notes Care Provider Fa cility 06-23-2019 tetanus toxoid, redu christen diphtheria toxoid, and acellular pertussis vaccine, adsorbed MD Marianela Oliva Work Phone: [facility] Payers Date Payer Category Payer Unknown [id number] [id number] Self-pay [id number] 2018 Unknown [id number] 2018 Private Health Insurance 2014 Unknown [id number] 1989 Unknown [id number] 2.16.84 0.1.821853.3.579.2.727 1989 Unknown [id number] 2.16.8 40.1.333163.3.579.2.173 1989 Unknown [id number] 2.16.8 40.1.379557.3.579.2.173 1989 Unknown [id number] 2.16.8 40.1.096256.3.579.2.173 1989 Unknown [id number] 2.16.8 40.1.286883.3.579.2.173 1989 Unknown [id number] 2.16.8 40.1.715749.3.579.2.173 1989 Unknown [id number] 2.16.8 40.1.183706.3.579.2.173 1989 Unknown [id number] 2.16.8 40.1.679192.3.579.2.173 1989 Unknown [id number] 2.16.8 40.1.216566.3.579.2.173 1989 Unknown [id number] 2.16.8 40.1.677304.3.579.2.9 1989 Unknown [id number] 2.16.8 40.1.368935.3.579.2.9 1989 Unknown [id number] 2.16.8 40.1.707887.3.579.2.1258 1989 Unknown [id number] 2.16.8 40.1.674526.3.579.2.9 1989 Unknown [id number] 2.16.8 40.1.281044.3.579.2.1258 1989 Unknown [id number] 2.16.8 40.1.131499.3.579.2.9 1989 Unknown [id number] 2.16.8 40.1.808718.3.579.2.1258 1989 Unknown [id number] 2.16.84 0.1.484828.3.579.2.9 1989 Unknown [id number] 2.16.84 0.1.853689.3.579.2.1258 1989 Unknown [id number] 2.16.84 0.1.114876.3.579.2.1258 1989 Unknown [id number] 2.16.84 0.1.383066.3.579.2.1258 1989 Unknown [id number] 2.16.84 0.1.444028.3.579.2.1258 1989 Unknown [id number] 2.16.84 0.1.518093.3.579.2.1259 1959 Private Health Insurance [facility] [id number] Unknown [id number] 2.16.8 40.1.449378.3.579.2.531 Unknown [id number] 2.16.8 40.1.293323.3.579.2.531 Unknown [id number] 2.16.8 40.1.404018.3.579.2.531 Unknown [id number] 2.16.8 40.1.287087.3.579.2.531 Unknown [id number] 2.16.8 40.1.779137.3.579.2.531 Unknown [id number] 2.16.8 40.1.808678.3.579.2.531 Unknown [id number] 2.16.8 40.1.346495.3.579.2.531 Unknown [id number] 2.16.8 40.1.169941.3.579.2.531 Social History Date Type Detail Facility Unknown if ever smoked [facility] Other Start: 01-27-2024 End: 12-21-2024 Sex Assigned At [facility] Other Start: 06-22-2019 End: 01-26-2024 Tobacco smoking status NHIS Never smoked tobacco (finding) [facility] Start: 1990 Sex Assigned At Female [facility] Start: 01-26-2024 Tobacco use and exposure Smokeless tobacco non-user [facility] Start: 01-27-2024 End: 07-05-2025 Alcoholic beverage intake Current drinker of alcohol (finding) [facility] Start: 01-27-2024 End: 12-21-2024 History of Social function [facility] Start: 01-27-2024 Gender identity Identifies as female gender (finding) [facility] Start: 01-27-2024 Sexual orientation Heterosexual (finding) [facility] Start: 11-04-2024 [facility] Start: 12-06-2024 End: 03-15-2025 Sex Female (finding) [facility] Medical Equipment Procedure Code Equipment Code Equipment Origin al Text Equipment Identifier Dates 1 strip by In Vi tro route Daily Use in the morning prior to breakfast, 1 hour after each meal for a total of 4times daily. [id number] Start: 02-15-2025 End: 03-17-2025 1 each by In Vit ro route Daily Use to check FSBS four times daily [id number] Start: 02-15-2025 End: 03-17-2025 Use as instructed [id number] Start: 04-09-2025 End: 04-09-2026 1 each by In Vit ro route Daily [id number] Start: 04-09-2025 End: 05-09-2025 Clinical Notes 12-16-2021 to 07-05-2025 Eugenia Bridges, [facility] - 07/05/2025 9:50 AM EDMegan Bridges, [facility] - 06/21/2025 9:40 AM Gracie Bridges, [facility] - 06/07/2025 9:50 AM Niki Mckeon, [facility] - 05/22/2025 11:00 AM EDT Note Date & Type Note Facility 07-05-2025 History of Presen t illness Narrative Reason [...] nursing note reviewed. Exam conducted with a supervisor stripping present. Vitals: Estimated body mass index is 35.55 kg/m as calculated from the following: Height as of 12/15/22: 5' 8 . Weight as of this encounter: 233 lb 12.8 oz. BP: 110/78 Patient's last menstrual period was 10/21/2024. ASSESSMENT & PLAN ICD-10-CM 1. 36 weeks gestation of ([facility]) Z3A.36 POCT urinalysis dipstick manually resulted 2. Third trimester ([facility]) Z34.93 POCT urinalysis dipstick manually resulted CULTURE, GROUP B STREP WITH SUSCEPTIBLITY CULTURE, GROUP B STREP WITH SUSCEPTIBLITY 3. Multigravida of advanced maternal age in third trimester ([facility]) O09.523 4. History of molar Z87.59 5. Antepartum multigravida of advanced maternal age ([facility]) O09.529 Patient is doing well but has [...] Yasmani Abdullahi DO documented in this encounter [facility] 06-21-2025 History of Presen t illness Narrative [...] Medical History: Diagnosis Date Anxiety Melanoma ([facility]) 2021 HISTORY PAST MEDICAL HISTORY SOCIAL [...] nursing note reviewed. Exam conducted with a supervisor stripping present. Vitals: Estimated body mass index is 35.12 kg/m as calculated from the following: Height as of 12/15/22: 5' 8 . Weight as of this encounter: 231 lb. BP: 124/72 Patient's last menstrual period was 10/21/2024. ASSESSMENT & PLAN ICD-10-CM 1. Third trimester ([facility]) Z34.93 POCT urinalysis dipstick manually resulted 2. 34 weeks gestation of ([facility]) Z3A.34 3. Multigravida of advanced maternal age in third trimester ([facility]) O09.523 Patient presents today for a routine [...] her HR and obtain contact info for [employer] that handles her time off claims. Once she speaks with them then she will know how to have paperwork filled out for maternity leave and post operative care leave. Patient to return ti clinic in 1-2 weeks for routine OB appointment. Documented by Eugenia Bridges LPN on behalf of: Yasmani Abdullahi DO documented in this encounter [facility] 06-07-2025 History of Presen t illness Narrative [...] nursing note reviewed. Exam conducted with a supervisor stripping present. Vitals: Estimated body mass index is 35.14 kg/m as calculated from the following: Height as of 12/15/22: 5' 8 . Weight as of this encounter: 231 lb 1.9 oz. BP: 112/70 Patient's last menstrual period was 10/21/2024. ASSESSMENT & PLAN ICD-10-CM 1. Third trimester ([facility]) Z34.93 POCT urinalysis dipstick manually resulted 2. 32 weeks gestation of ([facility]) Z3A.32 POCT urinalysis dipstick manually resulted 3. Multigravida of advanced maternal age in third trimester ([facility]) O09.523 US biophysical profile w non stress test Patient presents today for a routine obstetrics appointment. Patient is currently 32w5d with a Estimated Date of Delivery: 07/28/25. Patient given orders for NST/BPP's to be started until delivery. Orders will also be sent to [facility] Scheduling and [facility] FBC. Patient to return to clinic in 2 weeks. Documented by Eugenia Bridges LPN on behalf of: Yasmani Abdullahi DO documented in this encounter [facility] 05-22-2025 History of Presen t illness Narrative [...] Medical History: Diagnosis Date Anxiety Melanoma ([facility]) 2021 HISTORY PAST MEDICAL HISTORY SOCIAL HISTORY Past Medical History: Diagnosis Date Anxiety Melanoma ([facility]) 2021 on chest Social History Tobacco Use [...] nursing note reviewed. Exam conducted with a supervisor stripping present. Vitals: Estimated body mass index is 34.64 kg/m as calculated from the following: Height as of 12/15/22: 5' 8 . Weight as of this encounter: 227 lb 12.8 oz. BP: 110/72 Patient's last menstrual period was 10/21/2024. ASSESSMENT & PLAN ICD-10-CM 1. 30 weeks gestation of ([facility]) Z3A.30 POCT urinalysis dipstick manually resulted 2. Third trimester ([facility]) Z34.93 POCT urinalysis dipstick manually resulted 3. Antepartum multigravida of advanced maternal age ([facility]) O09.529 POCT urinalysis dipstick manually resulted 4. Gestational diabetes mellitus (GDM), antepartum, gestational diabetes method of control unspecified ([facility]) O24.419 POCT urinalysis dipstick manually resulted Return [...] Yasmani Abdullahi DO documented in this encounter [facility] 05-10-2025 History of Presen t illness Narrative [...] nursing note reviewed. Exam conducted with a supervisor stripping present. Vitals: Estimated body mass index is 34.25 kg/m as calculated from the following: Height as of 12/15/22: 5' 8 . Weight as of this encounter: 225 lb 4 oz. BP: 124/78 Patient's last menstrual period was 10/21/2024. ASSESSMENT & PLAN ICD-10-CM 1. size consistent with dates, antepartum ([facility] Z34.90 US OB follow up transabdominal approach 2. Third trimester ([facility]) Z34.93 POCT urinalysis dipstick manually resulted 3. 28 weeks gestation of ([facility]) Z3A.28 Patient presents today for a routine obstetrics appointment. Patient is currently 28w5d with a Estimated Date of Delivery: 07/28/25. Patient to return to clinic in 2 weeks for return OB and Growth US. Patient is going to [facility] after this appointment to receive her Rhogam injection. Patient will call office with any concerns or questions in the meantime. Documented by Eugenia Bridges LPN on behalf of: Yasmani Abdullahi DO documented in this encounter [facility] 04-10-2025 History of Presen t illness Narrative [...] Medical History: Diagnosis Date Anxiety Melanoma ([facility]) 2021 HISTORY PAST MEDICAL HISTORY SOCIAL HISTORY Past Medical History: Diagnosis Date Anxiety Melanoma ([facility]) 2021 on chest Social History Tobacco Use [...] nursing note reviewed. Exam conducted with a supervisor stripping present. Vitals: Estimated body mass index is 33.88 kg/m as calculated from the following: Height as of 12/15/22: 5' 8 . Weight as of this encounter: 222 lb 12.8 oz. BP: 108/68 Patient's last menstrual period was 10/21/2024. ASSESSMENT & PLAN ICD-10-CM 1. Second trimester ([facility]) Z34.92 POCT urinalysis dipstick manually resulted 2. 24 weeks gestation of ([facility]) Z3A.24 POCT urinalysis dipstick manually resulted 3. [...] Yasmani Abdullahi DO documented in this encounter [facility] 03-15-2025 History of Presen t illness Narrative [...] nursing note reviewed. Exam conducted with a supervisor stripping present. Vitals: Estimated body mass index is [...] CBC drawn yesterday. Patient was provided with crisis manager email to send FSBS results & more forms we given to patient to track sugars. Patient to RTC in 4 weeks for routine OB care. Documented by Eugenia Bridges LPN on behalf of: Yasmani Abdullahi DO documented in this encounter [facility] 02-15-2025 History of Presen t illness Narrative [...] nursing note reviewed. Exam conducted with a supervisor stripping present. Vitals: Estimated body mass index is [...] Yasmani Abdullahi DO documented in this encounter [facility] 01-18-2025 History of Presen t illness Narrative [...] nursing note reviewed. Exam conducted with a supervisor stripping present. Vitals: Estimated body mass index is [...] meat, and stay away from [facility]. Patient has been consulted regarding any [...] to AMA. Discussed level II ultrasound through [facility] and patient defers at this time [...] Yasmani Abdullahi DO documented in this encounter [facility] 12-05-2024 Telephone encount er Note Pt is OB and scheduled for intake in December. She called with complaints of kidney pain and left abd pain. Per nurse patient advised to be evaluated at Hospital[facility]. She also had questions about Zoloft during . Pt transferred to nurse to discuss. [facility] 12-05-2024 Miscellaneous Notes Formattin g of this note might be different from the original. 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 She called with complaints of kidney pain and left abd pain. Per nurse patient advised to be evaluated at Hospital. [facility]. She also had questions about Zoloft during . Pt transferred to nurse to discuss. documented in this encounter [facility] 02-04-2023 Evaluation note Encounter Date Diagnosis Assessment Notes Jan, Family history of BRCA gene mutation (ICD-10 - Z84.81) Discussed family history. Pt would like to be checked. She has weighed the risks and benefits and states she would be interested in a B mastectomy if indicated. After calling [facility], the decision was to fax lab order to [id number]. Order handwritten. Jan, Family history of breast cancer (ICD-10 - Z80.3) Mamm ordered. Jan, Screening mammogram for breast cancer (ICD-10 - Z12.31) [facility] Other 10-21-2022 Evaluation note* Encounter Date Diagnosis Assessment Notes Treatment Notes Treatment Clinical Notes Jul, Strep pharyngitis (ICD-10 - J02.0) [facility] Other 03-23-2022 Evaluation note* Encounter Date Diagnosis [...] were not corrected during the review process. [facility] Other 03-01-2022 History general Narrative - Reported* Type Description Date Medical History post pardom depression Surgical History wisdom teeth Surgical History D&C Surgical History melanoma excision 12/16/21 Hospitalization History child x4 [facility] Other 03-01-2022 History general Narrative - Reported* Type Description Date Medical History post pardom depression Medical History Anxiety, generalized Surgical History wisdom teeth Surgical History D&C Surgical History melanoma excision 12/16/21 Hospitalization History child x4 Hospitalization History see surgical hx [facility] Other Evaluation noteNo assessment information available [facility] Work Phone: [facility]No [facility] Other Evaluation note* Diagnosis Onset Date Resolution Status Mass of skin of chest acute [facility] Work Phone: Evaluation note* Diagnosis Onset Date Resolution Status Mass of skin of chest acute Right lower lobe pneumonia n [employer] [facility] Work Phone: Evaluation note* Diagnosis First [...] [facility] Diagnosis 36 weeks gestation of ([facility]) Third trimester ([facility]) state, incidental Multigravida of advanced maternal age in third trimester ([facility]) History of molar Antepartum multigravida of advanced maternal age ([facility]) [facility] Additional Instructions If your symptoms return/worsen or you develop any further concerns or symptoms please see your doctor or return to the emergency department immediately. 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 If you develop worsening pain, vaginal bleeding, fevers, other symptoms as we discussed please return the emergency department for reevaluation.[facility] Work Phone: Reason for referral (narrative)No reason for referral information [facility] Work Phone: Summary Purpose Family History [...] section and content) DATE CREATED AUTHOR 04/05/[address] [facility] DATE CREATED AUTHOR AUTHOR'S ORGANIZ ATION 06/15/2018 [facility] DATE CREATED AUTHOR AUTHOR'S ORGANIZ ATION 12/15/2018 Mannie Weiner [facility] DATE CREATED AUTHOR AUTHOR'S ORGANIZ ATION 12/25/2018 [facility] DATE CREATED AUTHOR AUTHOR'S ORGANIZ ATION 04/03/2025 [facility] DATE CREATED AUTHOR AUTHOR'S ORGANIZ ATION 06/23/2025 [facility] EPIC REASON FOR VISIT (unrecogniz ed section and content) Reason Comments Routine Visit Care Teams (unrecognized sec tion and content) Team Status: Inactive Member Role Status Dates Marianela Oliva MD Primary Care Provider Active Mario Perez DO [facility] Attending Provider Active Team Status: Active [...] End: May 17, 2024 Mario BALL DO [facility] Attending Provider Active Start: May 17, [...] August 15, 2024 End: August 15, 2024 Bmet 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 Specialty Start Date End Date Marianela Oliva MD [address] [place] [address] PCP - General Family Medicine 01/27/24 Team [...] December 27, 2024 End: December 27, 2024 Bmet 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 Specialty Start Date End Date Marianela Oliva MD [address] [place] [address] PCP - General Family Medicine 01/27/24 Bmet 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 Specialty Start Date End Date Marianela Oliva MD [address] [place] [facility] [place] [address] PCP - General Family Medicine 01/27/24 Bmet 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 Specialty Start Date End Date Marianela Oliva MD PCP - General Family Medicine 01/27/24 Bmet 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 Specialty Start Date End Date Marianela Oliva MD PCP - General Family Medicine 01/27/24 Bmet 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 Specialty Start Date End Date Marianela Oliva MD PCP - General Family Medicine 01/27/24 Bmet 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 Specialty Start Date End Date Marianela Oliva MD PCP - General Family Medicine 01/27/24 Bmet 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 Specialty Start Date End Date Marianela [...] March 14, 2025 End: March 14, 2025 Bmet 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 Specialty Start Date End Date Marianela Oliva MD [address] [place] [facility] [place] [id number] PCP - General Family Medicine 01/27/24 Bmet 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 Specialty Start Date End Date Marianela Oliva MD [address] [place] [facility] [place] [phone] PCP - General Family Medicine 01/27/24 Bmet 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 Specialty Start Date End Date Marianela Oliva MD [address] [place] [facility] [place] [address] PCP - General Family Medicine 01/27/24 Bmet 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 Specialty Start Date End Date Marianela Oliva MD [address] [place] [facility] [place] [address] PCP - General Family Medicine 01/27/24 Bmet 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 Specialty Start Date End Date Marianela Oliva MD [address] [place] [facility] [address] PCP - General Family Medicine 01/27/24 Team Status: Inactive Member Role Status Dates Marianela Oliva MD Primary Care Provider Active Start: April 02, 2025 End: April 02, 2025 Mario Perez [facility] Attending Provider Active Start: April 02, 2025 End: April 02, 2025 Team Status: Inactive Member Role Status Dates Marianela Oliva MD Primary Care Provider Active Start: June 12, 2025 End: June 12, 2025 Marianela Oliva MD Attending Provider Active St art: June 12, 2025 End: June 12, 2025 Bmet 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 Specialty Start Date End Date Marianela Oliva MD [address] [place] [facility] [place] [address] PCP - General Family Medicine 01/27/24 Bmet 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 Specialty Start Date End Date Marianela Oliva MD [address] [place] [facility] [address] PCP - General Family Medicine [...] BE BASED ON THE PRIMARY CLINICAL RECORDS. [employer] [facility] provides no warranty or guarantee of the accuracy or completeness of information in this document.
== END 2025-07-05 19:50 | disposition home or self-care (01) ==
LOC: LAB 19:49
PROVIDERS: Family Provider Family Medicine; PCP Family Medicine; Visit Provider Obstetrics & Gynecology
DX: Z34.93 Encounter for supervision of normal pregnancy, unspecified, third trimester (principal)
CPT/HCPCS: 87081

== ENCOUNTER 2025-07-07 08:20 | Outpatient (OUT) | payer OTHER, SELFPAY ==
--- OUTSIDE RECORDS SUMMARY | 2025-07-07 08:24 | XMS_ITS | CCD ---
Author Organization [facility] Care Team Providers Care Inspector [employer]wn[employer] Detail Name Role Phone OLIVA, MARIANELA E Unavailable Unavailable OLIVA, MARIANELA E Unavailable Unavailable OLIVA, MARIANELA E Unavailable Unavailable Macario Jarvis Attending Unavailable OLIVA, MARIANELA~[phone] UNKNOWN Primary Care Unavailable HEDGES, CHAU Admitting Unavailable HEDGES, CHAU Attending Unavailable HEDGES, CHAU Referring Unavailable OLIVA, MARIANELA~[phone] UNKNOWN Primary Care Unavailable HEDGES, CHAU W [...] Primary Care Unavailable Regina Huddleston Unavailable MD Marinaela Oliva Primary Care Provider DO Mario Perez Attending Provider MD Marianela Oliva Primary Care Provider MD Derrick Wilson Attending Provider Marianela Oliva Unavailable MD Marianela Oliva Primary Care Provider DO Marissa Garcia Attending Provider MD Marianela Oliva Attending Provider MD Marianela Oliva Primary Care Provider Kuns, DO Mario P Attending Provider MD Marianela Oliva Primary Care Provider Kuns - [facility], DO Mario P Attending Provider MD Marianela Oliva Attending Provider MD Derrick Wilson Attending Provider NO FAMILY, PHYSICIAN Primary Care Provider Unava ilable SAUL Reddy Attending Provider Marianela Oliva MD Primary Care Provider Marianela Oliva MD Primary Care Provider Dasia SANTAMARIA Jose Luana Emergency Provider Marianela Oliva MD Primary Care Provider Dasia SANTAMARIA Jose Luana Emergency Provider [phone] Yasmani Abdullahi DO Attending Provider Marianela Oliva [...] Care Provider Yasmani Abdullahi DO Attending Provider [facility] Mario SANTAMARIA Attending Provider Marianela Oliva MD [...] antepartum, gestational diabetes method of control unspecified ([facility]) 1 kit in the morning and [...] Drug Class(es) Dates Sig (Normalized) Sig (Original) [id number] 200 actuat albuterol 0.09 mg/actuat metered dose [...] oral tablet (6 sources) alpha-Adrenergic Agonist, Uncompetitive G-acnrni-A-aspartat e Receptor Antagonist, Sigma-1 Agonist Start: 08-11-2024 [...] UA Negative Negative - 4(70) +++ mg/dL [facility] Blood, UA Negative Negative - 50 Tavon/mcL [facility] Clarity, UA Clear [facility] Color, UA Yellow [facility] Glucose, UA Positive Negative - 1999(110) ++++ mg/dL [facility] Interpretation and review of laboratory results Abnormal [facility] Ketones, UA Negative Negative - 160(16) ++++ mg/dL [facility] Leukocytes, UA Positive Negative - 500+++ Bertha/mcL [facility] Nitrite, UA Negative Negative - Positive [facility] pH, UA 6.5 5 - 9 [facility] Protein, UA Negative Negative - 2000(20) ++++ mg/dL [facility] Spec Grav, UA 1.01 1 - 1.03 [facility] Urobilinogen, UA 1.0 0.2 - 12 mg/dL [facility] US OB BPP W NON-STRESS on 07-04-[address] [address] Ultrasound Report Signed Patient: NORIS GOETZ MR#: [id number] : 1990 Acct:[id number] Age/Sex: 35 / F ADM Date: 07/04/25 Loc: US Attending Dr: Yasmani Abdullahi D.O. Ordering Physician: Yasmani Abdullahi D.O. Date of Service: 07/04/25 Procedure(s): US OB BPP w non-stress Accession Number(s): [id number] cc: Marianela Oliva M.D.; Yasmani Abdullahi D.O. [place] [id number] Patient Name: NORIS GOETZ MRN: [facility]:[id number] date: 1990 Sex: F Assigned Patient Location: [facility] Current Patient Location: Accession/Order Number: [id number] Exam Date: 07/04/2025 07:33 Report Date: 07/04/2025 [...] Barnhart M.D. 07/04/2025 9:15 AM Dictation Location: [place] [address] Electronically authenticated by: [id number] Y Date: 07/04/2025 09:15 Dictated By: Annel Barnhart M.D. Signed By: 07/04/25917 DD/ 4 TD/TT: Purchasing Assistant: [facility] Radiology, Radiologjoni blake MD - 07/04/2025 [place] [address] Ultrasound Report Signed Patient: NORIS GOETZ MR#: [id number] : 1990 Acct:[id number] Age/Sex: 35 / F ADM Date: 07/04/25 Loc: US Attending Dr: Yasmani Abdullahi D.O. Ordering Physician: Yasmani Abdullahi D.O. Date of Service: 07/04/25 Procedure(s): US OB BPP w non-stress Accession Number(s): [id number] cc: Marianela Oliva M.D.; Yasmani Abdullahi D.O. The [place] [address] Patient Name: NORIS GOETZ MRN: [facility]:[id number] date: 1990 Sex: F Assigned Patient Location: [facility] Current Patient Location: Accession/Order Number: [id number] Exam Date: 07/04/2025 07:33 Report Date: 07/04/2025 [...] Barnhart M.D. 07/04/2025 9:15 AM Dictation Location: [place] [address] Electronically authenticated by: [id number] Y Date: 07/04/2025 09:15 Dictated By: Annel Barnhart M.D. Signed By: 07/04/25917 DD/ 4 TD/TT: Purchasing Assistant: [facility] Radiology Study observation (narrative) [facility] US OB BPP W NON-STRESS Ordered By: Radiologist Radiology on 07-04-2025 [facility] Work Phone: US OB BPP W NON-STRESS on 06-27-2025 [place] [address] Ultrasound Report Signed Patient: NORIS GOETZ MR#: [id number] : 1990 Acct:[id number] Age/Sex: 35 / F ADM Date: 06/27/25 Loc: US Attending Dr: Yasmani Abdullahi D.O. Ordering Physician: Yasmani Abdullahi D.O. Date of Service: 06/27/25 Procedure(s): US OB BPP w non-stress Accession Number(s): [id number] cc: Marianela Oliva M.D.; Yasmani Abdullahi D.O. [place] [id number] Patient Name: NORIS GOETZ MRN: [facility]:[id number] date: 1990 Sex: F Assigned Patient Location: US Current Patient Location: Accession/Order Number: [id number] Exam Date: 06/27/2025 07:35 Report Date: 06/27/2025 08:36 At the request of: YASMANI ABDULLAHI DO Procedure: US OB BPP w non-stress BIOPHYSICAL PROFILE: CLINICAL INFORMATION: Multigravida of advanced maternal age COMPARISON: 06/22/2025 There is a single live intrauterine gestation in cephalic presentation. The reported gestational age is 35 weeks 4 days The heart rate [id number] beats per minute. FINDINGS: TONE: 1 or [...] is in upper normal range. Total score: 8 US/US OB BPP w non-stress IMPRESSION: NORMAL BIOPHYSICAL PROFILE Impression dictated by: Annel Barnhart M.D. 06/27/2025 8:36 AM Dictation [facility] Electronically authenticated by: [id number] Y Date: 06/27/2025 08:36 Dictated By: Annel Barnhart M.D. Signed By: 06/27/25838 DD/ 5 TD/TT: Purchasing Assistant: [facility] Radiology, Radiologi MD lou - 06/27/2025 [place] [address] Ultrasound Report Signed Patient: NORIS GOETZ MR#: [id number] : 1990 Acct:[id number] Age/Sex: 35 / F ADM Date: 06/27/25 Loc: Attending Dr: Yasmani Abdullahi D.O. Ordering Physician: Yasmani Abdullahi D.O. Date of Service: 06/27/25 Procedure(s): US OB BPP w non-stress Accession Number(s): [id number] cc: Marianela Oliva M.D.; Yasmani Abdullahi D.O. The [place] [id number] Patient Name: NORIS GOETZ MRN: [facility]:[id number] date: 1990 Sex: F Assigned Patient Location: Current Patient Location: Accession/Order Number: [id number] Exam Date: 06/27/2025 07:35 Report Date: 06/27/2025 [...] Barnhart M.D. 06/27/2025 8:36 AM Dictation Location: [employer] Electronically authenticated by: [id number] Y Date: 06/27/2025 08:36 Dictated By: Annel Barnhart M.D. Signed By: 06/27/25838 DD/ 5 TD/TT: Purchasing Assistant: [facility] Radiology Study observation (narrative) [facility] US OB BPP W NON-STRESS Ordered By: Radiologist Radiology on 06-27-2025 [facility] Work Phone: US OB BPP W NON-STRESS on 06-22-2025 [place] [address] Ultrasound Report Signed Patient: NORIS GOETZ MR#: [id number] : 1990 Acct:[id number] Age/Sex: 35 / F ADM Date: 06/22/25 Loc: US Attending Dr: Yasmani Abdullahi D.O. Ordering Physician: Yasmani Abdullahi D.O. Date of Service: 06/22/25 Procedure(s): US OB BPP w non-stress Accession Number(s): [id number] cc: Marianela Oliva M.D.; Yasmani Abdullahi D.O. The [address] [address] Patient Name: NORIS GOETZ MRN: [facility]:[id number] date: 1990 Sex: F Assigned Patient Location: [facility] Current Patient Location: Accession/Order Number: [id number] Exam Date: 06/22/2025 17:18 Report Date: 06/22/2025 [...] Flores M.D. 06/22/2025 9:47 PM Dictation Location: [place] [address] Electronically authenticated by: [id number] Y Date: 06/22/2025 21:47 Dictated By: Alfonzo Flores D.O. Signed By: 06/22/252149 DD/ 46 TD/TT: Purchasing Assistant: [facility] Radiology, Radiologi MD lou - 06/22/2025 [place] [address] Ultrasound Report Signed Patient: NORIS GOETZ MR#: [id number] : 1990 Acct:[id number] Age/Sex: 35 / F ADM Date: 06/22/25 Loc: US Attending Dr: Yasmani Abdullahi D.O. Ordering Physician: Yasmani Abdullahi D.O. Date of Service: 06/22/25 Procedure(s): US OB BPP w non-stress Accession Number(s): [id number] cc: Marianela Oliva M.D.; Yasmani Abdullahi D.O. The [place] [id number] Patient Name: NORIS GOETZ MRN: [facility]:[id number] date: 1990 Sex: F Assigned Patient Location: [facility] Current Patient Location: Accession/Order Number: [id number] Exam Date: 06/22/2025 17:18 Report Date: 06/22/2025 [...] Flores M.D. 06/22/2025 9:47 PM Dictation Location: [place] [address] Electronically authenticated by: [id number] Y Date: 06/22/2025 21:47 Dictated By: Alfonzo Flores D.O. Signed By: 06/22/252149 DD/ 46 TD/TT: Purchasing Assistant: [facility] Radiology Study observation (narrative) [facility] US OB BPP W NON-STRESS Ordered By: Radiologist Radiology on 06-22-2025 [facility] Work Phone: US OB FOLLOW UP TRANSABDOMIN [...] period. TRANSCRIBED BY: ELECTRONICALLY SIGNED BY: Minh Rdedy MD Normal Not Available Comment on above: Order Comment: US OB SCAN FOR GROWTH Estimated Date of Delivery: 07/28/25 Gestational Age as of 06/07/2025: 34w5d Urinalysis macro (dipstick) panel (U)on 06-21-2025 Bilirubin, UA Negative Negative - 4(70) +++ mg/dL [facility] Blood, UA Negative Negative - 50 Tavon/mcL [facility] Clarity, UA Clear [facility] Color, UA Yellow [facility] Glucose, UA Negative Negative - 1999(110) ++++ mg/dL [facility] Interpretation and review of laboratory results Abnormal [facility] Ketones, UA Positive Negative - 160(16) ++++ mg/dL [facility] Leukocytes, UA 1+ Negative - 500+++ Bertha/mcL [facility] Nitrite, UA Negative Negative - Positive [facility] pH, UA 7 5 - 9 [facility] Protein, UA Negative Negative - 2000(20) ++++ mg/dL [facility] Spec Grav, UA 1.015 1 - 1.03 [facility] Urobilinogen, UA 1.0 0.2 - 12 mg/dL [facility] US OB BPP W NON-STRESS on 06-19-[address] [address] Ultrasound Report Signed Patient: NORIS GOETZ MR#: [id number] : 1990 Acct:[id number] Age/Sex: 35 / F ADM Date: 06/19/25 Loc: [facility] 250-[address]: Yasmani Abdullahi D.O. Ordering Physician: Yasmani Abdullahi D.O. Date of Service: 06/19/25 Procedure(s): US OB BPP w non-stress Accession Number(s): [id number] cc: Marianela Oliva M.D.; Yasmani Abdullahi D.O. [place] [address] Patient Name: NORIS GOETZ MRN: [facility]:[id number] date: 1990 Sex: F Assigned Patient Location: US Current Patient Location: US Accession/Order Number: [id number] Exam Date: 06/19/2025 11:08 Report Date: 06/19/2025 [...] Barnhart M.D. 06/19/2025 12:15 PM Dictation Location: [place] [address] Electronically authenticated by: [id number] Y Date: 06/19/2025 12:15 Dictated By: Annel Barnhart M.D. Signed By: 06/19/25 1217 DD/ 14 TD/TT: Purchasing Assistant: [facility] Radiology, Radiologi MD lou - 06/19/2025 [place] [address] Ultrasound Report Signed Patient: NORIS GOETZ MR#: [id number] : 1990 Acct:[id number] Age/Sex: 35 / F ADM Date: 06/19/25 Loc: [facility] [address]: Yasmani Abdullahi D.O. Ordering Physician: Yasmani Abdullahi D.O. Date of Service: 06/19/25 Procedure(s): US OB BPP w non-stress Accession Number(s): [id number] cc: Marianela Oliva M.D.; Yasmani Abdullahi D.O. The [place] [address] Patient Name: NORIS GOETZ MRN: [id number]:[id number] date: 1990 Sex: F Assigned Patient Location: US Current Patient Location: US Accession/Order Number: [id number] Exam Date: 06/19/2025 11:08 Report Date: 06/19/2025 [...] Barnhart M.D. 06/19/2025 12:15 PM Dictation Location: [place] [address] Electronically authenticated by: [id number] Y Date: 06/19/2025 12:15 Dictated By: Annel Barnhart M.D. Signed By: 06/19/251216 DD/ 14 TD/TT: Purchasing Assistant: [facility] Radiology Study observation (narrative) [facility] US OB BPP W NON-STRESS Ordered By: Radiologist Radiology on 06-19-2025 [facility] Work Phone: Urinalysis macro (dipstick) panel (U)on 06-07-2025 Bilirubin, UA Negative Negative - 4(70) +++ mg/dL [facility] Blood, UA Negative Negative - 50 Tavon/mcL [facility] Clarity, UA Clear [facility] Color, UA Yellow [facility] Glucose, UA Negative Negative - 2000(110) ++++ mg/dL [facility] Interpretation and review of laboratory results Normal [facility] Ketones, UA Negative Negative - 160(16) ++++ mg/dL [facility] Leukocytes, UA Negative Negative - 500+++ Bertha/mcL [facility] Nitrite, UA Negative Negative - Positive [facility] pH, UA 7.5 5 - 9 [facility] Protein, UA Negative Negative - 2000(20) ++++ mg/dL [facility] Spec Grav, UA 1.005 1 - 1.03 [facility] Urobilinogen, UA 1.0 0.2 - 12 mg/dL [facility] US OB FOLLOW UP TRANSABDOMIN AL APPROACHon [...] UA Negative Negative - 4(70) +++ mg/dL [facility] Blood, UA Negative Negative - 50 Tavon/mcL [facility] Clarity, UA Clear [facility] Color, UA Yellow [facility] Glucose, UA Negative Negative - 1999(110) ++++ mg/dL [facility] Interpretation and review of laboratory results Normal [facility] Ketones, UA Negative Negative - 160(16) ++++ mg/dL [facility] Leukocytes, UA Negative Negative - 500+++ Bertha/mcL [facility] Nitrite, UA Negative Negative - Positive [facility] pH, UA 6.5 5 - 9 [facility] Protein, UA Negative Negative - 1999(20) ++++ mg/dL [facility] Spec Grav, UA 1.01 1 - 1.03 [facility] Urobilinogen, UA 1.0 0.2 - 12 mg/dL [facility] Urinalysis macro (dipstick) panel (U)on 05-10-2025 Bilirubin, UA Negative Negative - 4(70) +++ mg/dL [facility] Blood, UA Negative Negative - 50 Tavon/mcL [facility] Clarity, UA Clear [facility] Color, UA Yellow [facility] Glucose, UA Negative Negative - 1999(110) ++++ mg/dL [facility] Interpretation and review of laboratory results Abnormal [facility] Ketones, UA Positive Negative - 160(16) ++++ mg/dL [facility] Comment on above: Large Leukocytes, UA Negative Negative - 500+++ Bertha/mcL [facility] Nitrite, UA Negative Negative - Positive [facility] pH, UA 6.5 5 - 9 [facility] Protein, UA Trace Negative - 1999(20) ++++ mg/dL [facility] Spec Grav, UA 1.015 1 - 1.03 [facility] Urobilinogen, UA 0.2 0.2 - 12 mg/dL [facility] Urinalysis macro (dipstick) panel (U)on 04-10-2025 Bilirubin, UA Negative Negative - 4(70) +++ mg/dL [facility] Blood, UA Negative Negative - 50 Tavon/mcL [facility] Clarity, UA Clear [facility] Color, UA Yellow [facility] Glucose, UA Negative Negative - 1999(110) ++++ mg/dL [facility] Interpretation and review of laboratory results Normal [facility] Ketones, UA Negative Negative - 160(16) ++++ mg/dL [facility] Leukocytes, UA Negative Negative - 500+++ Bertha/mcL [facility] Nitrite, UA Negative Negative - Positive [facility] pH, UA 6.5 5 - 9 [facility] Protein, UA Negative Negative - 1999(20) ++++ mg/dL [facility] Spec Grav, UA 1.025 1 - 1.03 [facility] Urobilinogen, UA 1.0 0.2 - 12 mg/dL [facility] Albumin [Mass/volume] in Ser um or Plasma by Bromocresol green (BCG) dye binding methoOrdered By: Mario Perez on 04-02-2025 Albumin BCG dye [Mass/Vol] 3.4 g/dL Low 3.5-5.7 [facility] Cholesterol in LDL Calc [Mas s/Vol]Ordered By: Mario Perez on 04-02-2025 Cholesterol in LDL [Mass/Vol] 120 mg/dL High 0-100 [facility] Comment on above: LDL ATP III CLASSIFI CATIONLDL less than 100 mg/dL OptimalLDL 100-129 mg/dL Near or above optimalLDL 130-159 mg/dL Borderline highLDL 160-189 mg/dL HighLDL greater than 189 mg/dL Very high Cholesterol in VLDL Calc [Ma ss/Vol]Ordered By: Mario Perez on 04-02-2025 Cholesterol in VLDL [Mass/Vol] 26 mg/dL [facility] Employee Comp Metabolic Pane marcel 04-02-2025 Albumin [Mass/Vol] 3.4 g/dL Low 3.5-5.7 [facility] Comment on above: Performed By: #### P ILLAR TSH, PILLAR CBC, PILLAR BMP, PILLAR LIPID #### [facility] [address] [place] [address] GFR/1.73 sq M.predicted MDRD (S/P/Bld) [Vol rate/Area] mL/min/{1.73_m2} Normal [facility] Comment on above: Performed By: #### P ILLAR TSH, PILLAR CBC, PILLAR BMP, PILLAR LIPID #### [facility] [address] [place] [address] Employee Comp Metabolic Pane lOrdered By: Mario Perez on 04-02-2025 Albumin/Globulin [Mass ratio] 1.5 {ratio} [facility] Comment on above: Performed By: #### P ILLAR TSH, PILLAR CBC, PILLAR BMP, PILLAR LIPID #### [facility] [address] [place] [address] ALP [Catalytic activity/Vol] 39 U/L 34-104 [facility] Comment on above: Performed By: #### P ILLAR TSH, PILLAR CBC, PILLAR BMP, PILLAR LIPID #### [facility] [address] [place] [address] ALT [Catalytic activity/Vol] 10 U/L 7-52 [facility] Comment on above: Performed By: #### P ILLAR TSH, PILLAR CBC, PILLAR BMP, PILLAR LIPID #### [facility] [address] [place] [address] Anion gap [Moles/Vol] 8.5 mmol/L 6.0-15.0 [facility] Comment on above: Performed By: #### P ILLAR TSH, PILLAR CBC, PILLAR BMP, PILLAR LIPID #### [facility] [address] [place] [address] AST [Catalytic activity/Vol] 12 U/L Low 13-39 [facility] Comment on above: Performed By: #### P ILLAR TSH, PILLAR CBC, PILLAR BMP, PILLAR LIPID #### [facility] [address] Bilirubin [Mass/Vol] 0.3 mg/dL 0.3-1.0 [facility] Comment on above: Performed By: #### P ILLAR TSH, PILLAR CBC, PILLAR BMP, PILLAR LIPID #### [facility] [address] Calcium [Mass/Vol] 8.2 mg/dL Low 8.6-10.3 [facility] Comment on above: Performed By: #### P ILLAR TSH, PILLAR CBC, PILLAR BMP, PILLAR LIPID #### [facility] [address] [place] [address] Chloride [Moles/Vol] 106 mmol/L 98-107 [facility] Comment on above: Performed By: #### P ILLAR TSH, PILLAR CBC, PILLAR BMP, PILLAR LIPID #### [facility] [address] [place] [address] CO2 [Moles/Vol] 25.4 mmol/L 21.0-31.0 [facility] Comment on above: Performed By: #### P ILLAR TSH, PILLAR CBC, PILLAR BMP, PILLAR LIPID #### [facility] [address] [place] [address] Creatinine [Mass/Vol] 0.49 mg/dL Low 0.60-1.20 [facility] Comment on above: Performed By: #### P ILLAR TSH, PILLAR CBC, PILLAR BMP, PILLAR LIPID #### [facility] [address] Globulin (S) [Mass/Vol] 2.3 g/dL [facility] Comment on above: Performed By: #### P ILLAR TSH, PILLAR CBC, PILLAR BMP, PILLAR LIPID #### [facility] [address] [place] [address] Glucose [Mass/Vol] 92 mg/dL 70-100 [facility] Comment on above: Performed By: #### P ILLAR TSH, PILLAR CBC, PILLAR BMP, PILLAR LIPID #### [facility] [address] Potassium [Moles/Vol] 3.9 mmol/L 3.5-5.1 [facility] Comment on above: Performed By: #### P ILLAR TSH, PILLAR CBC, PILLAR BMP, PILLAR LIPID #### [facility] [address] Protein [Mass/Vol] 5.7 g/dL Low 6.4-8.9 [facility] Comment on above: Performed By: #### P ILLAR TSH, PILLAR CBC, PILLAR BMP, PILLAR LIPID #### [facility] [address] Sodium [Moles/Vol] 136 mmol/L 136-145 [facility] Comment on above: Performed By: #### P ILLAR TSH, PILLAR CBC, PILLAR BMP, PILLAR LIPID #### [facility] [address] Urea nitrogen [Mass/Vol] 12 mg/dL 7-25 [facility] Comment on above: Performed By: #### P ILLAR TSH, PILLAR CBC, PILLAR BMP, PILLAR LIPID #### [facility] [address] [place] [address] Employee Complete Blood Coun tOrdered By: Mario Perez on 04-02-2025 Basophils (Bld) [#/Vol] 0.0 10*3/uL 0.0-0.2 [facility] Comment on above: Result Comment: PERF ORMED BY: [facility] [address] [place] [address] PATHOLOGIST REHABILITATION THERAPY AIDE JESS VARGAS M.D. Performed By: #### P ILLAR LIPID, PILLAR CBC, PILLAR CMP ####[facility] [address] [place] [address] [place] Basophils/100 WBC (Bld) 0.5 % . [facility] Comment on above: Performed By: #### P ILLAR LIPID, PILLAR CBC, PILLAR CMP ####[address] Eosinophils (Bld) [#/Vol] 0.2 10*3/uL 0.0-0.45 [facility] Comment on above: Performed By: #### P ILLAR LIPID, PILLAR CBC, PILLAR CMP ####[address] Eosinophils/100 WBC (Bld) 2.5 % . [facility] Comment on above: Performed By: #### P ILLAR LIPID, PILLAR CBC, PILLAR CMP ####[address] Erythrocyte distribution width (RBC) [Ratio] 13.4 % 11.9-15.3 [facility] Comment on above: Performed By: #### P ILLAR LIPID, PILLAR CBC, PILLAR CMP ####[address] Hematocrit (Bld) [Volume fraction] 34.4 % 34.0-46.4 [facility] Comment on above: Performed By: #### P ILLAR LIPID, PILLAR CBC, PILLAR CMP ####[address] Hemoglobin (Bld) [Mass/Vol] 11.8 g/dL 11.8-15.4 [facility] Comment on above: Performed By: #### P ILLAR LIPID, PILLAR CBC, PILLAR CMP ####[address] Lymphocytes (Bld) [#/Vol] 1.6 10*3/uL 1.00-4.8 [facility] Comment on above: Performed By: #### P ILLAR LIPID, PILLAR CBC, PILLAR CMP ####[address] Lymphocytes/100 WBC (Bld) 21.6 % . [facility] Comment on above: Performed By: #### P ILLAR LIPID, PILLAR CBC, PILLAR CMP ####[address] MCH (RBC) [Entitic mass] 29.3 pg 24.7-34.3 [facility] Comment on above: Performed By: #### P ILLAR LIPID, PILLAR CBC, PILLAR CMP ####[place] [id number] [facility] MCV (RBC) [Entitic vol] 85.4 fL 80-100 [facility] Comment on above: Performed By: #### P ILLAR LIPID, PILLAR CBC, PILLAR CMP ####[address] Monocytes (Bld) [#/Vol] 0.6 10*3/uL 0.0-0.8 [facility] Comment on above: Performed By: #### P ILLAR LIPID, PILLAR CBC, PILLAR CMP ####[address] Monocytes/100 WBC (Bld) 7.9 % . [facility] Comment on above: Performed By: #### P ILLAR LIPID, PILLAR CBC, PILLAR CMP ####[address] Neutrophils (Bld) [#/Vol] 5.0 10*3/uL 1.8-7.7 [facility] Comment on above: Performed By: #### P ILLAR LIPID, PILLAR CBC, PILLAR CMP ####[address] Neutrophils/100 WBC (Bld) 67.5 % . [facility] Comment on above: Performed By: #### P ILLAR LIPID, PILLAR CBC, PILLAR CMP ####[address] Platelet mean volume (Bld) [Entitic vol] 9.5 fL 6.3-10.7 [facility] Comment on above: Performed By: #### P ILLAR LIPID, PILLAR CBC, PILLAR CMP ####[address] Platelets (Bld) [#/Vol] 198 10*3/uL 150-450 [facility] Comment on above: Performed By: #### P ILLAR LIPID, PILLAR CBC, PILLAR CMP ####[place] [id number] [address] RBC (Bld) [#/Vol] 4.03 10*6/uL 3.60-5.00 [facility] Comment on above: Performed By: #### P ILLAR LIPID, PILLAR CBC, PILLAR CMP ####[address] WBC (Bld) [#/Vol] 7.4 10*3/uL 3.8-11.6 [facility] Comment on above: Performed By: #### P ILLAR LIPID, PILLAR CBC, PILLAR CMP ####[address] Employee Complete Blood Coun ton 04-02-2025 Mean Corpuscular HGB Conc 34.3 g/dL Normal 32.0-35.0 [facility] Comment on above: Performed By: #### P ILLAR LIPID, PILLAR CBC, PILLAR CMP ####[address] NRBC% 0.1 /100{WBC} Normal 0-0.5 [facility] Comment on above: Performed By: #### P ILLAR LIPID, PILLAR CBC, PILLAR CMP ####[address] Employee Lipid ProfileOrdere d By: Mario Perez on 04-02-2025 Cholesterol [Mass/Vol] 222 mg/dL High 140-200 [facility] Comment on above: Result Comment: Chol less than 200 mg/dl low risk Chol 201-239 mg/dl borderline risk Chol 240 mg/dl and greater high risk Performed By: #### P ILLAR TSH, PILLAR CBC, PILLAR BMP, PILLAR LIPID #### [facility] [address] Chol less than 200 m g/dl low riskChol 201-239 mg/dl borderline riskChol 240 mg/dl and greater high risk Cholesterol in HDL [Mass/Vol] 76 mg/dL 23-92 [facility] Comment on above: Result Comment: HDL CHOL ATP-III CLASSIFICATION Cardiovascular Risk HDL > or equal to 60 mg/dL LOW HDL < 40 mg/dL HIGH Performed By: #### P ILLAR TSH, PILLAR CBC, PILLAR BMP, PILLAR LIPID #### [facility] [address] HDL CHOL ATP-III CLA SSIFICATION Cardiovascular RiskHDL > or equal to 60 mg/dL LOWHDL < 40 mg/dL HIGH Cholesterol.total/Chol esterol in HDL [Mass ratio] 2.9 {ratio} <5.0 [facility] Comment on above: Result Comment: PERF ORMED BY: [place] [address] PATHOLOGIST REHABILITATION THERAPY AIDE JESS VARGAS M.D. Performed By: #### P ILLAR TSH, PILLAR CBC, PILLAR BMP, PILLAR LIPID #### [facility] [address] Employee Lipid Profileon LDL Cholesterol,Calculated 120 mg/dL High 0-100 [facility] Comment on above: Result Comment: LDL ATP III CLASSIFICATION LDL less than 100 mg/dL Optimal LDL 100-129 mg/dL Near or above optimal LDL 130-159 mg/dL Borderline high LDL 160-189 mg/dL High LDL greater than 189 mg/dL Very high Performed By: #### P ILLAR TSH, PILLAR CBC, PILLAR BMP, PILLAR LIPID #### [facility] [address] Triglyceride w/Reflex 131 mg/dL Normal 0-149 [facility] Comment on above: Result Comment: TRIG ATP III CLASSIFICATION TRIG less than 150 mg/dL Normal TRIG 150-199 mg/dL Borderline high TRIG 200-500 mg/dL High TRIG greater than 500 mg/dL Very high Standard traceable to the Center for Disease Conrtrol and Prevention (CDC) test method. Performed By: #### P ILLAR TSH, PILLAR CBC, PILLAR BMP, PILLAR LIPID #### [facility] [address] [place] [address] [place] VLDL CHOLESTEROL 26 mg/dL Normal [facility] Comment on above: Performed By: #### P ILLAR TSH, PILLAR CBC, PILLAR BMP, PILLAR LIPID #### [facility] [address] [place] [id number] [place] Leukocytes [#/volume] correc randolph for nucleated erythrocytes in Blood by Automated counOrdered By: Mario Perez on 04-02-2025 WBC corrected for nucl RBC Auto (Bld) [#/Vol] 7.4 10*3/uL 3.8-11.6 [facility] MCHC Auto (RBC) [Mass/Vol]Or dered By: Mario Perez on 04-02-2025 MCHC (RBC) [Mass/Vol] 34.3 g/dL 32.0-35.0 [facility] No Panel InformationOrdered By: Mario Perez on 04-02-2025 Estimated GFR (CKD-EPI) > 60.0 mL/Min [facility] Creatinine Clearance (Chem N/A [facility] Nucleated erythrocytes [Pres ence] in Blood by Automated countOrdered By: Mario Perez on 04-02-2025 Nucleated RBC Auto Ql (Bld) 0.1 /100{WBC} 0-0.5 [facility] Triglyceride [Mass/volume] i n Serum or PlasmaOrdered By: Mario Perez on 04-02-2025 Triglyceride [Mass/Vol] 131 mg/dL 0-149 [facility] Comment on above: TRIG ATP III [...] II, MD, PHD at 16-Mar-2025 11:50:11 AM [facility] Normal Not Available Comment on above: Order Comment: US OB ANATOMY SINGLE W US OB CERVICAL LENGTH Estimated Date of Delivery: 07/28/25 Gestational Age as of 02/15/2025: 16w5d Urinalysis macro (dipstick) panel (U)on 03-15-2025 Bilirubin, UA Negative Negative - 4(70) +++ mg/dL [facility] Healthcare Blood, UA Negative Negative - 50 Tavon/mcL [facility] Clarity, UA Clear [facility] Color, UA Yellow [facility] Glucose, UA Negative Negative - 2000(110) ++++ mg/dL [facility] Interpretation and review of laboratory results Normal [facility] Ketones, UA Negative Negative - 160(16) ++++ mg/dL [facility] Leukocytes, UA Negative Negative - 500+++ Bertha/mcL [facility] Nitrite, UA Negative Negative - Positive [facility] pH, UA 7 5 - 9 [facility] Protein, UA Negative Negative - 1999(20) ++++ mg/dL [facility] Spec Grav, UA 1.015 1 - 1.03 [facility] Urobilinogen, UA 0.2 0.2 - 12 mg/dL [facility] Basophils Auto (Bld) [#/Vol] Ordered By: Yasmani Abdullahi on 03-14-2025 Basophils (Bld) [#/Vol] Automated basophil count 0.0-0.2 [facility] Basophils/100 WBC Auto (Bld) Ordered By: Yasmani Abdullahi on 03-14-2025 Basophils/100 WBC (Bld) Automated basophil % . [facility] CBC W Auto Differential pane l (Bld)on 03-14-2025 Basophils (Bld) [#/Vol] 0 10*3/uL 0.0 - 0.2 10*3/uL [facility] Basophils/100 WBC Manual cnt (Syn fld) 0.3 % . [facility] Eosinophils (Bld) [#/Vol] 0.1 10*3/uL 0.0 - 0.45 10*3/uL [facility] Eosinophils/100 WBC Manual cnt (Syn fld) 1 % . [facility] Erythrocyte distribution width (RBC) [Ratio] 13.5 % 11.9 - 15.3 % [facility] Hematocrit (Bld) [Volume fraction] 35.8 % 34.0 - 46.4 % [facility] Hemoglobin (Bld) [Mass/Vol] 12.6 g/dL 11.8 - 15.4 g/dL [facility] Interpretation and review of laboratory results Abnormal [facility] Lymphocytes (Bld) [#/Vol] 1.8 10*3/uL 1.00 - 4.8 10*3/uL [facility] Lymphocytes/100 WBC Manual cnt (Syn fld) 19.9 % . [facility] MCH (RBC) [Entitic mass] 29.2 pg 24.7 - 34.3 pg [facility] MCHC (RBC) [Mass/Vol] 35.1 g/dL High 32.0 - 35.0 g/dL [facility] MCV (RBC) [Entitic vol] 83.3 fL 80 - 100 fL [facility] Monocytes (Bld) [#/Vol] 0.7 10*3/uL 0.0 - 0.8 10*3/uL [facility] Monocytes+Macrophages/ 100 WBC Manual cnt (Syn fld) 8.2 % . [facility] Neutrophils (Bld) [#/Vol] 6.4 10*3/uL 1.8 - 7.7 10*3/uL [facility] Healthcare Neutrophils/100 WBC Manual cnt (Syn fld) 70.6 % . [facility] NRBC 0.1 /100{WBC} 0 - 0.5 /100{WBC} [facility] Platelet mean volume (Bld) [Entitic vol] 9 fL 6.3 - 10.7 fL [facility] Platelets (Bld) [#/Vol] 235 10*3/uL 150 - 450 10*3/uL [facility] RBC LM.HPF (Urine sed) [#/Area] 4.3 10*6/uL 3.60 - 5.00 10*6/uL [facility] WBC (Bld) [#/Vol] 9.1 10*3/uL 3.8 - 11.6 10*3/uL [facility] WBC LM.HPF (Urine sed) [#/Area] 9.1 10*3/uL 3.8 - 11.6 10*3/uL [facility] Complete Blood Count Auto Di ffOrdered By: Yasmani Abdullahi on 03-14-2025 Basophils (Bld) [#/Vol] 0.0 10*3/uL 0.0-0.2 [facility] Comment on above: Result Comment: PERF ORMED BY: [facility] [address] [place] [address] PATHOLOGIST REHABILITATION THERAPY AIDE JESS VARGAS M.D. Performed By: #### C ####[facility] [address] [place] [address] [facility] Basophils/100 WBC (Bld) 0.3 % . [facility] Comment on above: Performed By: #### C BC ####[address] Eosinophils (Bld) [#/Vol] 0.1 10*3/uL 0.0-0.45 [facility] Comment on above: Performed By: #### C BC ####[place] [id number] [facility] Eosinophils/100 WBC (Bld) 1.0 % . [facility] Comment on above: Performed By: #### C BC ####[place] [id number] [facility] Erythrocyte distribution width (RBC) [Ratio] 13.5 % 11.9-15.3 [facility] Comment on above: Performed By: #### C BC ####[place] [id number] [facility] Hematocrit (Bld) [Volume fraction] 35.8 % 34.0-46.4 [facility] Comment on above: Performed By: #### C BC ####[place] [id number] [facility] Hemoglobin (Bld) [Mass/Vol] 12.6 g/dL 11.8-15.4 [facility] Comment on above: Performed By: #### C BC ####[place] [id number] [facility] Lymphocytes (Bld) [#/Vol] 1.8 10*3/uL 1.00-4.8 [facility] Comment on above: Performed By: #### C BC ####[place] [id number] [facility] Lymphocytes/100 WBC (Bld) 19.9 % . [facility] Comment on above: Performed By: #### C BC ####[place] [id number] [facility] MCH (RBC) [Entitic mass] 29.2 pg 24.7-34.3 [facility] Comment on above: Performed By: #### C BC ####[address] MCV (RBC) [Entitic vol] 83.3 fL 80-100 [facility] Comment on above: Performed By: #### C BC ####[address] Monocytes (Bld) [#/Vol] 0.7 10*3/uL 0.0-0.8 [facility] Comment on above: Performed By: #### C BC ####[address] Monocytes/100 WBC (Bld) 8.2 % . [facility] Comment on above: Performed By: #### C BC ####[address] Neutrophils (Bld) [#/Vol] 6.4 10*3/uL 1.8-7.7 [facility] Comment on above: Performed By: #### C BC ####[address] Neutrophils/100 WBC (Bld) 70.6 % . [facility] Comment on above: Performed By: #### C BC ####[address] Platelet mean volume (Bld) [Entitic vol] 9.0 fL 6.3-10.7 [facility] Comment on above: Performed By: #### C BC ####[place] [id number] [facility] Platelets (Bld) [#/Vol] 235 10*3/uL 150-450 [facility] Comment on above: Performed By: #### C BC ####[place] [id number] [facility] RBC (Bld) [#/Vol] 4.30 10*6/uL 3.60-5.00 [facility] Comment on above: Performed By: #### C BC ####[address] WBC (Bld) [#/Vol] 9.1 10*3/uL 3.8-11.6 [facility] Comment on above: Performed By: #### C BC ####[facility] Complete Blood Count Auto Di ffon 03-14-2025 Mean Corpuscular HGB Conc 35.1 g/dL High 32.0-35.0 [facility] Comment on above: Performed By: #### C BC ####[place] [id number] NRBC% 0.1 /100{WBC} Normal 0-0.5 [facility] Comment on above: Performed By: #### C BC ####[address] Eosinophils Auto (Bld) [#/Vo l]Ordered By: Yasmani Abdullahi on 03-14-2025 Eosinophils (Bld) [#/Vol] Automated eosinophil count 0.0-0.45 [facility] Eosinophils/100 WBC Auto (Bl d)Ordered By: Yasmani Abdullahi on 03-14-2025 Eosinophils/100 WBC (Bld) Automated eosinophil % . [facility] Erythrocyte distribution wid th Auto (RBC) [Ratio]Ordered By: Yasmani Abdullahi on 03-14-2025 Erythrocyte distribution width (RBC) [Ratio] Erythrocyte distribution width [Ratio] by Automated count 11.9-15.3 [facility] Hematocrit Auto (Bld) [Volum e fraction]Ordered By: Yasmani Abdullahi on 03-14-2025 Hematocrit (Bld) [Volume fraction] Hematocrit [Volume Fraction] of Blood by Automated count 34.0-46.4 [facility] Hemoglobin [Mass/volume] in BloodOrdered By: Yasmani Abdullahi on 03-14-2025 Hemoglobin (Bld) [Mass/Vol] Hemoglobin [Mass/volume] in Blood 11.8-15.4 [facility] Leukocytes [#/volume] correc randolph for nucleated erythrocytes in Blood by Automated counOrdered By: Yasmani Abdullahi on 03-14-2025 WBC corrected for nucl RBC Auto (Bld) [#/Vol] Leukocytes [#/volume] corrected for nucleated erythrocytes in Blood by Automated coun 3.8-11.6 [facility] WBC corrected for nucl RBC Auto (Bld) [#/Vol] 9.1 10*3/uL 3.8-11.6 [facility] Lymphocytes Auto (Bld) [#/Vo l]Ordered By: Yasmani Abdullahi on 03-14-2025 Lymphocytes (Bld) [#/Vol] Lymphocytes [#/volume] in Blood by Automated count 1.00-4.8 [facility] Lymphocytes/100 WBC Auto (Bl d)Ordered By: Yasmani Abdullahi on 03-14-2025 Lymphocytes/100 WBC (Bld) Lymphocytes/100 leukocytes in Blood by Automated count . [facility] MCH Auto (RBC) [Entitic mass ]Ordered By: Yasmani Abdullahi on 03-14-2025 MCH (RBC) [Entitic mass] MCH [Entitic mass] by Automated count 24.7-34.3 [facility] MCHC Auto (RBC) [Mass/Vol]Or dered By: Yasmani Abdullahi on 03-14-2025 MCHC (RBC) [Mass/Vol] MCHC [Mass/volume] by Automated count High 32.0-35.0 [facility] MCHC (RBC) [Mass/Vol] 35.1 g/dL High 32.0-35.0 [facility] MCV Auto (RBC) [Entitic vol] Ordered By: Yasmani Abdullahi on 03-14-2025 MCV (RBC) [Entitic vol] MCV [Entitic volume] by Automated count 80-100 [facility] Monocytes Auto (Bld) [#/Vol] Ordered By: Yasmani Abdullahi on 03-14-2025 Monocytes (Bld) [#/Vol] Automated blood monocyte count 0.0-0.8 [facility] Monocytes/100 WBC Auto (Bld) Ordered By: Yasmani Abdullahi on 03-14-2025 Monocytes/100 WBC (Bld) Automated monocyte % . [facility] Neutrophils Auto (Bld) [#/Vo l]Ordered By: Yasmani Abdullahi on 03-14-2025 Neutrophils (Bld) [#/Vol] Neutrophils [#/volume] in Blood by Automated count 1.8-7.7 [facility] Neutrophils/100 WBC Auto (Bl d)Ordered By: Yasmani Abdullahi on 03-14-2025 Neutrophils/100 WBC (Bld) Automated neutrophil % . [facility] Nucleated erythrocytes [Pres ence] in Blood by Automated countOrdered By: Yasmani Abdullahi on 03-14-2025 Nucleated RBC Auto Ql (Bld) Nucleated erythrocytes [Presence] in Blood by Automated count 0-0.5 [facility] Nucleated RBC Auto Ql (Bld) 0.1 /100{WBC} 0-0.5 [facility] Platelet mean volume Auto (B ld) [Entitic vol]Ordered By: Yasmani Abdullahi on 03-14-2025 Platelet mean volume (Bld) [Entitic vol] Platelet mean volume [Entitic volume] in Blood by Automated count 6.3-10.7 [facility] Platelets Auto (Bld) [#/Vol] Ordered By: Yasmani Abdullahi on 03-14-2025 Platelets (Bld) [#/Vol] Platelets [#/volume] in Blood by Automated count 150-450 [facility] RBC Auto (Bld) [#/Vol]Ordere d By: Yasmani Abdullahi on 03-14-2025 RBC (Bld) [#/Vol] Erythrocytes [#/volu me] in Blood by Automated count 3.60-5.00 [facility] WBC Auto (Bld) [#/Vol]Ordere d By: Yasmani Abdullahi on 03-14-2025 WBC (Bld) [#/Vol] Leukocytes [#/volume ] in Blood by Automated count 3.8-11.6 [facility] IGP,APTIMA HPV,AGE GDLNon AGE GDLN ACOG TESTING Note . [facility] Comment on above: TESTS RESULT FLAG UN ITS REF RANGE LAB Clinician Provided Cytology Information Source.............[employer] Other.............. No. of containers..01 ThinPrep Vial Age John PEREZ Gemma... 29 FLAG LEGEND: L-Low Normal,H-High Normal,LL-Alert Low,HH-Alert High <-Panic Low,>-Panic High,A-Abnormal,AA-Critical Abnormal Performed at: 01 =[address] [address] Azalea Quezada MD, HPV APTIMA Negative Negative [facility] Comment on above: This nucleic acid am plification test detects fourteen high- risk HPV types (16,18,31,33,35,39,45,51,52,56,58,59,66,68) without differentiation. Performed at: =[address] [id number] Devops: Azalea Quezada MD, Phone: [phone] Performed at: [address] [id number] Devops: Azalea Quezada MD, Phone: [phone] IGP, APTIMA HPV, RFX 16/18,45 Note . [facility] Comment on above: TESTS RESULT FLAG UN ITS REF RANGE LAB DIAGNOSIS: 02 NEGATIVE FOR INTRAEPITHELIAL LESION OR MALIGNANCY. Specimen adequacy: 02 Satisfactory for evaluation. No endocervical component is identified. An endocervical component is not commonly seen in the patient. Performed by: 02 [employer] ([facility]) . 02 Note: Note 02 The Pap [...] <-Panic Low,>-Panic High,A-Abnormal,AA-Critical Abnormal Performed at: [address] [address] Azalea Quezada MD, SPATULA-ALONE [facility] RECURRENT VAGINITIS (HTRX)on 02-16-2025 ATOPOBIUM VAGINAE 0 [facility] ATOPOBIUM VAGINAE Not detected [facility] BVAB 2,3 (BACTERIAL VAGINOSIS ASSOCIATED BACTERIA 2, 3); MOBILUNCUS SPP 0 [facility] BVAB 2,3 (BACTERIAL VAGINOSIS ASSOCIATED BACTERIA 2, 3); MOBILUNCUS SPP Not detected [facility] JOHNNIE ALBICANS, PARAPSILOSIS, TROPICALIS 0 [facility] JOHNNIE ALBICANS, PARAPSILOSIS, TROPICALIS Not detected [facility] JOHNNIE GLABRATA 0 [facility] JOHNNIE GLABRATA Not detected [facility] JOHNNIE KRUSEI 0 [facility] JOHNNIE KRUSEI Not detected [facility] CHLAMYDIA [...] DNA [Presence] in Cer Negative [facility] Comment on above: This nucleic acid am plification test detects fourteen high- risk HPV types (16,18,31,33,35,39,45,51,52,56,58,59,66,68)without differentiation.Performed at: = - [address] [id number] Director: Azalea Quezada MD, Phone: [phone] at: [facility] [address] [id number] Director: Azalea Quezada MD, Phone: [phone] No Panel Informationon 02-15 HPV High Risk Other Comment Note . [facility] Comment on above: TESTS RESULT FLAG UN ITS REF RANGE LAB DIAGNOSIS: 02 NEGATIVE FOR INTRAEPITHELIAL LESION OR MALIGNANCY.Specimen adequacy: 02 Satisfactory for evaluation. No endocervical component is identified. An endocervical component is not commonly seen in the patient.Performed by: 02 [employer] ([facility]). 02Note: Note 02 The Pap smear is [...] <-Panic Low,>-Panic High,A-Abnormal,AA-Critical Abnormal -----Performed at:[address] [address] Azalea Quezada MD, Reference Lab Test Patient Age Note . [facility] Comment on above: TESTS RESULT FLAG UN ITS REF RANGE LAB Clinician Provided Cytology Information Source.............[employer] Other.............. No. of containers..01 ThinPrep VialAge Belindao ACOG Gemma... 30-65 FLAG LEGEND: L-Low Normal,H-High Normal,LL-Alert Low,HH-Alert High <-Panic Low,>-Panic High,A-Abnormal,AA-Critical Abnormal -----Performed at:01 =G [address] [address] Azalea Quezada MD, Urinalysis macro (dipstick) panel (U)on 02-15-2025 Bilirubin, UA Negative Negative - 4(70) +++ mg/dL [facility] Blood, UA Negative Negative - 50 Tavon/mcL [facility] Clarity, UA Clear [facility] Color, UA Yellow [facility] Glucose, UA Positive Negative - 1999(110) ++++ mg/dL [facility] Comment on above: 100 Interpretation and review of laboratory results Abnormal [facility] Ketones, UA Negative Negative - 160(16) ++++ mg/dL [facility] Leukocytes, UA Negative Negative - 500+++ Bertha/mcL [facility] Nitrite, UA Negative Negative - Positive [facility] pH, UA 5.5 5 - 9 [facility] Protein, UA Negative Negative - 1999(20) ++++ mg/dL [facility] Spec Grav, UA 1.005 1 - 1.03 [facility] Urobilinogen, UA 0.2 0.2 - 12 mg/dL [facility] Urinalysis macro (dipstick) panel (U)on 01-18-2025 Bilirubin, UA Negative Negative - 4(70) +++ mg/dL [facility] Blood, UA Negative Negative - 50 Tavon/mcL [facility] Healthcare Clarity, UA Clear [facility] Color, UA Yellow [facility] Glucose, UA Negative Negative - 1999(110) ++++ mg/dL [facility] Interpretation and review of laboratory results Abnormal [facility] Ketones, UA Negative Negative - 160(16) ++++ mg/dL [facility] Leukocytes, UA Negative Negative - 500+++ Bertha/mcL [facility] [facility] Nit[facility], UA Negative Negative - Positive [facility] pH, UA 6 5 - 9 [facility] Protein, UA Negative Negative - 2000(20) ++++ mg/dL [facility] Spec Grav, UA 1.03 1 - 1.03 [facility] Urobilinogen, UA 0.2 0.2 - 12 mg/dL [facility] A1C with Estimated Average G raleighn 12-27-2024 Glucose [Mass/Vol] 103 mg/dL Normal [facility] Comment on above: Order Comment: NONFA STING.JKW Result Comment: PERF ORMED BY: [facility] [address] [place] [address] PATHOLOGIST REHABILITATION THERAPY AIDE LEÓN GARCIA M.D. Performed By: #### H CV RX PCR, RPR W RFX, RUBELLA IGG, HBSAG, HIV SCREEN ####[facility] ,#### CUU, A1C WTH eA, CBC, URDS ####[place] [id number] [address] HbA1c (Bld) [Mass fraction] 5.2 % Normal 4.3-5.6 [facility] Comment on above: Order Comment: NONFA STING.JKW Result Comment: Incr eased risk for diabetes: 5.7 - 6.4 diabetes: >6.4 glycemic control for adults with diabetes: <7.0 Performed By: #### H CV RX PCR, RPR W RFX, RUBELLA IGG, HBSAG, HIV SCREEN ####[facility] ,#### CUU, A1C WTH eA, CBC, URDS ####[facility] [id number] Amphetamine Screen Ql (U)Ord ered By: Yasmani Abdullahi on 12-27-2024 Amphetamines Ql (U) Amphetamines screen Negativ e [facility] Barbiturates [Presence] in U rine by Screen methodOrdered By: Yasmani Abdullahi on 12-27-2024 Barbiturates Screen Ql (U) Barbiturates [Presence] in Urine by Screen method Negative [facility] Basophils Auto (Bld) [#/Vol] Ordered By: Yasmani Abdullahi on 12-27-2024 Basophils (Bld) [#/Vol] Automated basophil count 0.0-0.2 [facility] Basophils/100 WBC Auto (Bld) Ordered By: Yasmani Abdullahi on 12-27-2024 Basophils/100 WBC (Bld) Automated basophil % . [facility] Benzodiazepines Screen Ql (U )Ordered By: Yasmani Abdullahi on 12-27-2024 Benzodiazepines Ql (U) Benzodiazepines [Presence] in Urine by Screen method Negative [facility] Benzoylecgonine [Presence] i n Urine by Screen methodOrdered By: Yasmani Abdullahi on 12-27-2024 Benzoylecgonine Screen Ql (U) Benzoylecgonine [Presence] in Urine by Screen method Negative [facility] Blood estimated average gluc ose determination by estimation from glycated hemoglobinOrdered By: Yasmani Abdullahi on 12-27-2024 Average glucose Estimated from glycated hemoglobin (Bld) [Mass/Vol] Glucose mean value [Mass/volume] in Blood Estimated from glycated hemoglobin [facility] Cannabinoids [Presence] in U rine by Screen methodOrdered By: Yasmani Abdullahi on 12-27-2024 Cannabinoids Screen Ql (U) Cannabinoids [Presence] in Urine by Screen method Negative [facility] Comment on above: These are unconfirme d results and should not be used for legal purposes. Drug Cut-Off Concentration: AMPH 1000 ng/mL ABELARDO 200 ng/mL JESSE 200 ng/mL COCM 300 ng/mL OP 300 ng/mL PCP 25 ng/mL THC 20 ng/mL Complete Blood Count Auto Di ffon 12-27-2024 Basophils (Bld) [#/Vol] 0.0 10*3/uL Normal 0.0-0.2 [facility] Comment on above: Order Comment: NONFA STING.JKW Result Comment: PERF ORMED BY: [facility] [address] [place] [address] PATHOLOGIST REHABILITATION THERAPY AIDE LEÓN GARCIA M.D. Performed By: #### H CV RX PCR, RPR W RFX, RUBELLA IGG, HBSAG, HIV SCREEN #### [facility] , #### CUU, A1C WTH eA, CBC, URDS #### [address] Basophils/100 WBC (Bld) 0.6 % Normal . [facility] Comment on above: Order Comment: NONFA STING.JKW Performed By: #### H CV RX PCR, RPR W RFX, RUBELLA IGG, HBSAG, HIV SCREEN #### [facility] , #### CUU, A1C WTH eA, CBC, URDS #### [address] Eosinophils (Bld) [#/Vol] 0.1 10*3/uL Normal 0.0-0.45 [facility] Comment on above: Order Comment: NONFA STING.JKW Performed By: #### H CV RX PCR, RPR W RFX, RUBELLA IGG, HBSAG, HIV SCREEN #### [facility] , #### CUU, A1C WTH eA, CBC, URDS #### [address] Eosinophils/100 WBC (Bld) 1.7 % Normal . [facility] Comment on above: Order Comment: NONFA STING.JKW Performed By: #### H CV RX PCR, RPR W RFX, RUBELLA IGG, HBSAG, HIV SCREEN #### [facility] , #### CUU, A1C WTH eA, CBC, URDS #### [address] Erythrocyte distribution width (RBC) [Ratio] 13.7 % Normal 11.9-15.3 [facility] Comment on above: Order Comment: NONFA STING.JKW Performed By: #### H CV RX PCR, RPR W RFX, RUBELLA IGG, HBSAG, HIV SCREEN #### [facility] , #### CUU, A1C WTH eA, CBC, URDS #### [facility] [address] Hematocrit (Bld) [Volume fraction] 38.2 % Normal 34.0-46.4 [facility] Comment on above: Order Comment: NONFA STING.JKW Performed By: #### H CV RX PCR, RPR W RFX, RUBELLA IGG, HBSAG, HIV SCREEN #### [facility] , #### CUU, A1C WTH eA, CBC, URDS #### [facility] [address] Hemoglobin (Bld) [Mass/Vol] 13.0 g/dL Normal 11.8-15.4 [facility] Comment on above: Order Comment: NONFA STING.JKW Performed By: #### H CV RX PCR, RPR W RFX, RUBELLA IGG, HBSAG, HIV SCREEN #### [facility] , #### CUU, A1C WTH eA, CBC, URDS #### [place] [address] [place] Lymphocytes (Bld) [#/Vol] 1.2 10*3/uL Normal 1.00-4.8 [facility] Comment on above: Order Comment: NONFA STING.JKW Performed By: #### H CV RX PCR, RPR W RFX, RUBELLA IGG, HBSAG, HIV SCREEN #### [facility] , #### CUU, A1C WTH eA, CBC, URDS #### [facility] [address] [place] [id number] [place] Lymphocytes/100 WBC (Bld) 19.5 % Normal . [facility] Comment on above: Order Comment: NONFA STING.JKW Performed By: #### H CV RX PCR, RPR W RFX, RUBELLA IGG, HBSAG, HIV SCREEN #### [facility] , #### CUU, A1C WTH eA, CBC, URDS #### [address] MCH (RBC) [Entitic mass] 27.8 pg Normal 24.7-34.3 [facility] Comment on above: Order Comment: NONFA STING.JKW Performed By: #### H CV RX PCR, RPR W RFX, RUBELLA IGG, HBSAG, HIV SCREEN #### [facility] , #### CUU, A1C WTH eA, CBC, URDS #### [address] MCV (RBC) [Entitic vol] 81.5 fL Normal 80-100 [facility] Comment on above: Order Comment: NONFA STING.JKW Performed By: #### H CV RX PCR, RPR W RFX, RUBELLA IGG, HBSAG, HIV SCREEN #### [facility] , #### CUU, A1C WTH eA, CBC, URDS #### [address] Mean Corpuscular HGB Conc 34.1 g/dL Normal 32.0-35.0 [facility] Comment on above: Order Comment: NONFA STING.JKW Performed By: #### H CV RX PCR, RPR W RFX, RUBELLA IGG, HBSAG, HIV SCREEN #### [facility] , #### CUU, A1C WTH eA, CBC, URDS #### [address] Monocytes (Bld) [#/Vol] 0.4 10*3/uL Normal 0.0-0.8 [facility] Comment on above: Order Comment: NONFA STING.JKW Performed By: #### H CV RX PCR, RPR W RFX, RUBELLA IGG, HBSAG, HIV SCREEN #### [facility] , #### CUU, A1C WTH eA, CBC, URDS #### [address] Monocytes/100 WBC (Bld) 6.7 % Normal . [facility] Comment on above: Order Comment: NONFA STING.JKW Performed By: #### H CV RX PCR, RPR W RFX, RUBELLA IGG, HBSAG, HIV SCREEN #### [facility] , #### CUU, A1C WTH eA, CBC, URDS #### [address] Neutrophils (Bld) [#/Vol] 4.5 10*3/uL Normal 1.8-7.7 [facility] Comment on above: Order Comment: NONFA STING.JKW Performed By: #### H CV RX PCR, RPR W RFX, RUBELLA IGG, HBSAG, HIV SCREEN #### [facility] , #### CUU, A1C WTH eA, CBC, URDS #### [address] Neutrophils/100 WBC (Bld) 71.5 % Normal . [facility] Comment on above: Order Comment: NONFA STING.JKW Performed By: #### H CV RX PCR, RPR W RFX, RUBELLA IGG, HBSAG, HIV SCREEN #### [facility] , #### CUU, A1C WTH eA, CBC, URDS #### [address] NRBC% 0.0 /100{WBC} Normal 0-0.5 [facility] Comment on above: Order Comment: NONFA STING.JKW Performed By: #### H CV RX PCR, RPR W RFX, RUBELLA IGG, HBSAG, HIV SCREEN #### [facility] , #### CUU, A1C WTH eA, CBC, URDS #### [address] Platelet mean volume (Bld) [Entitic vol] 8.8 fL Normal 6.3-10.7 [facility] Comment on above: Order Comment: NONFA STING.JKW Performed By: #### H CV RX PCR, RPR W RFX, RUBELLA IGG, HBSAG, HIV SCREEN #### [facility] , #### CUU, A1C WTH eA, CBC, URDS #### [facility] [address] Platelets (Bld) [#/Vol] 225 10*3/uL Normal 150-450 [facility] Comment on above: Order Comment: NONFA STING.JKW Performed By: #### H CV RX PCR, RPR W RFX, RUBELLA IGG, HBSAG, HIV SCREEN #### [facility] , #### CUU, A1C WTH eA, CBC, URDS #### [address] RBC (Bld) [#/Vol] 4.69 10*6/uL Normal 3.60-5.00 [facility] Comment on above: Order Comment: NONFA STING.JKW Performed By: #### H CV RX PCR, RPR W RFX, RUBELLA IGG, HBSAG, HIV SCREEN #### [facility] , #### CUU, A1C WTH eA, CBC, URDS #### [address] WBC (Bld) [#/Vol] 6.4 10*3/uL Normal 3.8-11.6 [facility] Comment on above: Order Comment: NONFA STING.JKW Performed By: #### H CV RX PCR, RPR W RFX, RUBELLA IGG, HBSAG, HIV SCREEN #### [facility] , #### CUU, A1C WTH eA, CBC, URDS #### [facility] [address] [place], [place] [id number] [facility] Drug Screen,Urineon 12-28-19 25 Amphetamine Screen,Urine Negative Normal Negative [facility] Comment on above: Order Comment: NONFA STING.JKW Performed By: #### H CV RX PCR, RPR W RFX, RUBELLA IGG, HBSAG, HIV SCREEN ####[facility] ,#### CUU, A1C WTH eA, CBC, URDS ####[address] Barbiturate Screen,Urine Negative Normal Negative [facility] Comment on above: Order Comment: NONFA STING.JKW Performed By: #### H CV RX PCR, RPR W RFX, RUBELLA IGG, HBSAG, HIV SCREEN ####[facility] ,#### CUU, A1C WTH eA, CBC, URDS ####[address] Benzodiazepines Screen,Urine Negative Normal Negative [facility] Comment on above: Order Comment: NONFA STING.JKW Performed By: #### H CV RX PCR, RPR W RFX, RUBELLA IGG, HBSAG, HIV SCREEN ####[facility] ,#### CUU, A1C WTH eA, CBC, URDS ####[address] Cannabinoid Screen,Urine Negative Normal Negative [facility] Comment on above: Order Comment: NONFA STING.JKW Result Comment: Thes e are unconfirmed results and should not be used for legal purposes. Drug Cut-Off Concentration: AMPH 1000 ng/mL ABELARDO 200 ng/mL JESSE 200 ng/mL COCM 300 ng/mL OP 300 ng/mL PCP 25 ng/mL THC 20 ng/mL PERFORMED BY: [facility] [address] [facility] [place] [address] PATHOLOGIST REHABILITATION THERAPY AIDE LEÓN GARCIA M.D. Performed By: #### H CV RX PCR, RPR W RFX, RUBELLA IGG, HBSAG, HIV SCREEN ####[facility] ,#### CUU, A1C WTH eA, CBC, URDS ####[address] Cocaine Screen,Urine Negative Normal Negative [facility] Comment on above: Order Comment: NONFA STING.JKW Performed By: #### H CV RX PCR, RPR W RFX, RUBELLA IGG, HBSAG, HIV SCREEN ####[facility] ,#### CUU, A1C WTH eA, CBC, URDS ####[facility] Opiate Screen,Urine Negative Normal Negative [facility] Comment on above: Order Comment: NONFA STING.JKW Performed By: #### H CV RX PCR, RPR W RFX, RUBELLA IGG, HBSAG, HIV SCREEN ####[facility] ,#### CUU, A1C WTH eA, CBC, URDS ####[place] [id number] [address] Phencyclidine Screen,Urine Negative Normal Negative [facility] Comment on above: Order Comment: NONFA STING.JKW Performed By: #### H CV RX PCR, RPR W RFX, RUBELLA IGG, HBSAG, HIV SCREEN ####[facility] ,#### CUU, A1C WTH eA, CBC, URDS ####[place] [id number] [address] Eosinophils Auto (Bld) [#/Vo l]Ordered By: Yasmani Abdullahi on 12-27-2024 Eosinophils (Bld) [#/Vol] Automated eosinophil count 0.0-0.45 [facility] Eosinophils/100 WBC Auto (Bl d)Ordered By: Yasmani Abdullahi on 12-27-2024 Eosinophils/100 WBC (Bld) Automated eosinophil % . [facility] Erythrocyte distribution wid th Auto (RBC) [Ratio]Ordered By: Yasmani Abdullahi on 12-27-2024 Erythrocyte distribution width (RBC) [Ratio] Erythrocyte distribution width [Ratio] by Automated count 11.9-15.3 [facility] HIV 1/O/2 Antigen/Antibodyon 12-27-2024 HIV Screen 4th Generation Non-Reactive Normal Non Reactive [facility] Comment on above: Order Comment: NONFA STING.JKW Result Comment: HIV- 1/HIV-2 antibodies and HIV-1 p24 antigen were NOT detected. There is no laboratory evidence of HIV infection. HIV Negative Performed at: [facility] [address] [place] [id number] Devops: Garfield Fay PhD, Phone: [phone] Performed By: #### H CV RX PCR, RPR W RFX, RUBELLA IGG, HBSAG, HIV SCREEN ####[facility] ,#### CUU, A1C WTH eA, CBC, URDS ####[facility] [address] HIV antibody and antigen nails elOrdered By: Yasmani Abdullahi on 12-27-2024 HIV 1+2 Ab+HIV1 p24 Ag IA Ql HIV 1 and HIV-2 antibody assay with HIV-1 p24 antigen detection Non Reactive [facility] Comment on above: HIV-1/HIV-2 antibodi es and HIV-1 p24 antigen were NOTdetected. There is no laboratory evidence of HIV infection.HIV NegativePerformed at: [facility] [address] [id number] Director: Garfield Fay PhD, Phone: [phone] Hematocrit Auto (Bld) [Volum e fraction]Ordered By: Yasmani Abdullahi on 12-27-2024 Hematocrit (Bld) [Volume fraction] Hematocrit [Volume Fraction] of Blood by Automated count 34.0-46.4 [facility] Hemoglobin A1c/Hemoglobin.to dylan in BloodOrdered By: Yasmani Abdullahi on 12-27-2024 HbA1c (Bld) [Mass fraction] Hemoglobin A1c percentage 4.3-5.6 [facility] Comment on above: Increased risk for d iabetes: 5.7 - 6.4diabetes: >6.4glycemic control for adults with diabetes: <7.0 Hemoglobin [Mass/volume] in BloodOrdered By: Yasmani Abdullahi on 12-27-2024 Hemoglobin (Bld) [Mass/Vol] Hemoglobin [Mass/volume] in Blood 11.8-15.4 [facility] Hep C Ab wRfx to Qnt PCRon 0 12-27-2024 Hepatitis C Virus Antibody Non-Reactive Normal Non Reactive [facility] Comment on above: Order Comment: NONFA STING.JKW Performed By: #### H CV RX PCR, RPR W RFX, RUBELLA IGG, HBSAG, HIV SCREEN ####[facility] ,#### CUU, A1C WTH eA, CBC, URDS ####[place] [id number] [address] Interpretation Hepatitis C Comment Normal . [facility] Comment on above: Order Comment: NONFA STING.JKW Result Comment: Not infected with HCV unless early or acute infection is suspected (which may be delayed in an immunocompromised individual), or other evidence exists to indicate HCV infection. Performed By: #### H CV RX PCR, RPR W RFX, RUBELLA IGG, HBSAG, HIV SCREEN ####[facility] ,#### CUU, A1C WTH eA, CBC, URDS ####[place] [id number] [address] Hepatitis B Surface Antigeno n 12-27-2024 HBsAg Screen Negative Normal Negative [facility] Comment on above: Order Comment: NONFA STING.JKW Result Comment: Perf ormed at: - [facility] [place] [id number] Devops: Garfield Fay PhD, Phone: [phone] PERFORMED BY: [facility] [address] [place] [address] PATHOLOGIST REHABILITATION THERAPY AIDE LEÓN GARCIA M.D. Performed By: #### H CV RX PCR, RPR W RFX, RUBELLA IGG, HBSAG, HIV SCREEN ####[facility] ,#### CUU, A1C WTH eA, CBC, URDS ####[address] Hepatitis C virus IgG Ab [Pr esence] in Serum or Plasma by ImmunoassayOrdered By: Yasmani Abdullahi on 12-27-2024 HCV IgG IA Ql Hepatitis C virus Ig G Ab [Presence] in Serum or Plasma by Immunoassay Non Reactive [facility] Leukocytes [#/volume] correc randolph for nucleated erythrocytes in Blood by Automated counOrdered By: Yasmani Abdullahi on 12-27-2024 WBC corrected for nucl RBC Auto (Bld) [#/Vol] Leukocytes [#/volume] corrected for nucleated erythrocytes in Blood by Automated coun 3.8-11.6 [facility] Lymphocytes Auto (Bld) [#/Vo l]Ordered By: Yasmani Abdullahi on 12-27-2024 Lymphocytes (Bld) [#/Vol] Lymphocytes [#/volume] in Blood by Automated count 1.00-4.8 [facility] Lymphocytes/100 WBC Auto (Bl d)Ordered By: Yasmani Abdullahi on 12-27-2024 Lymphocytes/100 WBC (Bld) Lymphocytes/100 leukocytes in Blood by Automated count . [facility] MCH Auto (RBC) [Entitic mass ]Ordered By: Yasmani Abdullahi on 12-27-2024 MCH (RBC) [Entitic mass] MCH [Entitic mass] by Automated count 24.7-34.3 [facility] MCHC Auto (RBC) [Mass/Vol]Or dered By: Yasmani Abdullahi on 12-27-2024 MCHC (RBC) [Mass/Vol] MCHC [Mass/volume] by Automated count 32.0-35.0 [facility] MCV Auto (RBC) [Entitic vol] Ordered By: Yasmani Abdullahi on 12-27-2024 MCV (RBC) [Entitic vol] MCV [Entitic volume] by Automated count 80-100 [facility] Monocytes Auto (Bld) [#/Vol] Ordered By: Yasmani Abdullahi on 12-27-2024 Monocytes (Bld) [#/Vol] Automated blood monocyte count 0.0-0.8 [facility] Monocytes/100 WBC Auto (Bld) Ordered By: Yasmani Abdullahi on 12-27-2024 Monocytes/100 WBC (Bld) Automated monocyte % . [facility] Neutrophils Auto (Bld) [#/Vo l]Ordered By: Yasmani Abdullahi on 12-27-2024 Neutrophils (Bld) [#/Vol] Neutrophils [#/volume] in Blood by Automated count 1.8-7.7 [facility] Neutrophils/100 WBC Auto (Bl d)Ordered By: Yasmani Abdullahi on 12-27-2024 Neutrophils/100 WBC (Bld) Automated neutrophil % . [facility] No Panel InformationOrdered By: Yasmani Abdullahi on 12-27-2024 Hepatitis C Interpretation Comment . [facility] Comment on above: Not infected with HC V unless early or acute infection issuspected (which may be delayed in an immunocompromisedindividual), or other evidence exists to indicate HCVinfection. Nucleated erythrocytes [Pres ence] in Blood by Automated countOrdered By: Yasmani Abdullahi on 12-27-2024 Nucleated RBC Auto Ql (Bld) Nucleated erythrocytes [Presence] in Blood by Automated count 0-0.5 [facility] Opiates [Presence] in Urine by Screen methodOrdered By: Yasmani Abdullahi on 12-27-2024 Opiates Screen Ql (U) Opiates [Presence] in Urine by Screen method Negative [facility] Phencyclidine Screen Ql (U)O rdered By: Yasmani Abdullahi on 12-27-2024 Phencyclidine Ql (U) Phencyclidine [Pres ence] in Urine by Screen method Negative [facility] Platelet mean volume Auto (B ld) [Entitic vol]Ordered By: Yasmani Abdullahi on 12-27-2024 Platelet mean volume (Bld) [Entitic vol] Platelet mean volume [Entitic volume] in Blood by Automated count 6.3-10.7 [facility] Platelets Auto (Bld) [#/Vol] Ordered By: Yasmani Abdullahi on 12-27-2024 Platelets (Bld) [#/Vol] Platelets [#/volume] in Blood by Automated count 150-450 [facility] RBC Auto (Bld) [#/Vol]Ordere d By: Yasmani Abdullaih on 12-27-2024 RBC (Bld) [#/Vol] Erythrocytes [#/volu me] in Blood by Automated count 3.60-5.00 [facility] RPR w/rfx to Quant TP Abson 12-27-2024 RPR, Rfx Quant RPR Non-Reactive Normal Non Reactive [facility] Comment on above: Order Comment: NONFA STING.JKW Result Comment: Perf ormed at: - [facility] [address], [place] [id number] Devops: Garfield Fay PhD, Phone: [phone] PERFORMED BY: [facility] [address] [place] [address] PATHOLOGIST REHABILITATION THERAPY AIDE LEÓN GARCIA M.D. Performed By: #### H CV RX PCR, RPR W RFX, RUBELLA IGG, HBSAG, HIV SCREEN ####[facility] ,#### CUU, A1C WTH eA, CBC, URDS ####[facility] [id number] [place] [address] [place] Rubella IgG Antibodyon 12-27 Rubella IgG Antibody 1.22 Normal Immune >0.99 [facility] Comment on above: Order Comment: NONFA STING.JKW Result Comment: Non- immune <0.90 Equivocal 0.90 - 0.99 Immune >0.99 Performed By: #### H CV RX PCR, RPR W RFX, RUBELLA IGG, HBSAG, HIV SCREEN ####[facility] ,#### CUU, A1C WTH eA, CBC, URDS ####[facility] Rubella IgG antibody assayOr dered By: Yasmani Abdullahi on 12-27-2024 Rubella IgG Antibody 1.22 index Immune >0.99 [facility] Comment on above: Non-immune <0.90 Equ ivocal 0.90 - 0.99 Immune >0.99 Serum RPR testOrdered By: Rishi Abdullahi on 12-27-2024 Reagin Ab RPR Ql (S) Reagin Ab [Presence ] in Serum by RPR Non Reactive [facility] Comment on above: Performed at: [facility] [address] [id number] Director: Garfield Fay PhD, Phone: [phone] Serum or plasma hepatitis B virus surface antigen detection by immunoassayOrdered By: Yasmani Abdullahi on 12-27-2024 HBV surface Ag IA Ql Hepatitis B virus s urface Ag [Presence] in Serum or Plasma by Immunoassay Negative [facility] Comment on above: Performed at: - [address] [id number] Director: Garfield Fay PhD, Phone: [phone] Type and Screenon 12-27-2024 ABO and Rh group Nom (Bld) Blood group B Rh(D) negative Normal [facility] Comment on above: Order Comment: NONFA STING.JKW Result Comment: PERF ORMED BY: [place] [address] PATHOLOGIST REHABILITATION THERAPY AIDE LEÓN GARCIA M.D. Urine Cultureon 12-27-2024 Bacteria identified Cx Nom (U) NONFASTING.JKW 15,000 colonies/ml mixed bacterial skin contaminants 2 Days PERFORMED BY: [address] [place] [address] PATHOLOGIST REHABILITATION THERAPY AIDE LEÓN GARCIA M.D. Normal [facility] Comment on above: Performed By: #### H CV RX PCR, RPR W RFX, RUBELLA IGG, HBSAG, HIV SCREEN ####[facility] ,#### CUU, A1C WTH eA, CBC, URDS ####[facility] [id number] Urine cultureOrdered By: Paramjit Abdullahi on 12-27-2024 Bacteria identified Cx Nom (U) Urine culture [facility] WBC Auto (Bld) [#/Vol]Ordere d By: Yasmani Abdullahi on 12-27-2024 WBC (Bld) [#/Vol] Leukocytes [#/volume ] in Blood by Automated count 3.8-11.6 [facility] US OB TRANSVAGINALon 025 US OB [...] II, MD, PHD at 22-Dec-2024 08:23:50 AM [facility] Normal Not Available Comment on above: Order Comment: US OB TRANSVAGINAL No LMP recorded. Alanine aminotransferase [En zymatic activity/volume] in Serum or PlasmaOrdered By: Jose Forman on 12-06-2024 ALT [Catalytic activity/Vol] Alanine aminotransferase [Enzymatic activity/volume] in Serum or Plasma 7-52 [facility] Albumin [Mass/volume] in Ser um or Plasma by Bromocresol green (BCG) dye binding methoOrdered By: Jose Forman on 12-06-2024 Albumin BCG dye [Mass/Vol] Albumin [Mass/volume] in Serum or Plasma by Bromocresol green (BCG) dye binding metho 3.5-5.7 [facility] Alkaline phosphatase [Enzyma tic activity/volume] in Serum or PlasmaOrdered By: Jose Forman on 12-06-2024 ALP [Catalytic activity/Vol] Alkaline phosphatase [Enzymatic activity/volume] in Serum or Plasma 34-104 [facility] Appearance of UrineOrdered B y: Jose Forman on 12-06-2024 Appearance (U) Urine appearance Clear [facility] [facility] Aspartate aminotransferase [ Enzymatic activity/volume] in Serum or PlasmaOrdered By: Jose Forman on 12-06-2024 AST [Catalytic activity/Vol] Aspartate aminotransferase [Enzymatic activity/volume] in Serum or Plasma Low 13-39 [facility] Bacteria [Presence] in Urine by AutomatedOrdered By: Jose Forman on 12-06-2024 Bacteria Auto Ql (U) Bacteria [Presence] in Urine by Automated None Seen [facility] Basic Metabolic Panelon 11-18 Anion gap [Moles/Vol] 7.0 mmol/L Normal 6.0-15.0 [facility] Comment on above: Performed By: #### C BC, HCGQNT, LIPASE, PT, HS TROP, PTT, HEPATIC, BMP ####[address] Calcium [Mass/Vol] 9.1 mg/dL Normal 8.6-10.3 [facility] Comment on above: Performed By: #### C BC, HCGQNT, LIPASE, PT, HS TROP, PTT, HEPATIC, BMP ####[address] Chloride [Moles/Vol] 106 mmol/L Normal 98-107 [facility] Comment on above: Performed By: #### C BC, HCGQNT, LIPASE, PT, HS TROP, PTT, HEPATIC, BMP ####[place] [id number] [facility] CO2 [Moles/Vol] 24.6 mmol/L Normal 21.0-31.0 [facility] Comment on above: Performed By: #### C BC, HCGQNT, LIPASE, PT, HS TROP, PTT, HEPATIC, BMP ####[place] [id number] [facility] Creatinine [Mass/Vol] 0.70 mg/dL Normal 0.60-1.20 [facility] Comment on above: Performed By: #### C BC, HCGQNT, LIPASE, PT, HS TROP, PTT, HEPATIC, BMP ####[place] [id number] [facility] Creatinine Clr Calc Pharmacy 129.71 Normal [facility] Comment on above: Performed By: #### C BC, HCGQNT, LIPASE, PT, HS TROP, PTT, HEPATIC, BMP ####[address] GFR/1.73 sq M.predicted MDRD (S/P/Bld) [Vol rate/Area] mL/min/{1.73_m2} Normal [facility] Comment on above: Performed By: #### C BC, HCGQNT, LIPASE, PT, HS TROP, PTT, HEPATIC, BMP ####[address] Glucose [Mass/Vol] 94 mg/dL Normal 70-100 [facility] Comment on above: Result Comment: [facility] Glucose Reference Range is dependent on time and content of last meal. Glucose of more than 200 mg/dL in a nonstressed, ambulatory subject supports the diagnosis of Diabetes Mellitus. ADA recommended reference range Performed By: #### C BC, HCGQNT, LIPASE, PT, HS TROP, PTT, HEPATIC, BMP ####[address] Potassium [Moles/Vol] 3.6 mmol/L Normal 3.5-5.1 [facility] Comment on above: Performed By: #### C BC, HCGQNT, LIPASE, PT, HS TROP, PTT, HEPATIC, BMP ####[address] Sodium [Moles/Vol] 134 mmol/L Low 136-145 [facility] Comment on above: Performed By: #### C BC, HCGQNT, LIPASE, PT, HS TROP, PTT, HEPATIC, BMP ####[place] [id number] [facility] Urea nitrogen [Mass/Vol] 9 mg/dL Normal 7-25 [facility] Comment on above: Performed By: #### C BC, HCGQNT, LIPASE, PT, HS TROP, PTT, HEPATIC, BMP ####[place] [id number] [facility] Basophils Auto (Bld) [#/Vol] Ordered By: Jose Forman on 12-06-2024 Basophils (Bld) [#/Vol] Automated basophil count 0.0-0.2 [facility] Basophils/100 WBC Auto (Bld) Ordered By: Jose Forman on 12-06-2024 Basophils/100 WBC (Bld) Automated basophil % . [facility] Bilirubin Test strip Ql (U)O rdered By: Jose Forman on 12-06-2024 Bilirubin Ql (U) Bilirubin.total [Presence] in Urine by Test strip Negative [facility] Bilirubin.direct [Mass/volum e] in Serum or PlasmaOrdered By: Jose Forman on 12-06-2024 Bilirubin.direct [Mass/Vol] Bilirubin.direct [Mass/volume] in Serum or Plasma 0.03-0.18 [facility] Bilirubin.total [Mass/volume ] in Serum or PlasmaOrdered By: Jose Forman on 12-06-2024 Bilirubin [Mass/Vol] Bilirubin.total [Mass/volume] in Serum or Plasma 0.3-1.0 [facility] Calcium [Mass/volume] in Ser um or PlasmaOrdered By: Jose Forman on 12-06-2024 Calcium [Mass/Vol] Calcium [Mass/volume ] in Serum or Plasma 8.6-10.3 [facility] Carbon dioxide, total [Moles /volume] in Serum or PlasmaOrdered By: Jose Forman on 12-06-2024 CO2 [Moles/Vol] Carbon dioxide, tota l [Moles/volume] in Serum or Plasma 21.0-31.0 [facility] Chloride [Moles/volume] in S eamon or PlasmaOrdered By: Jose Forman on 12-06-2024 Chloride [Moles/Vol] Chloride [Moles/vol ume] in Serum or Plasma 98-107 [facility] Choriogonadotropin.beta subu nit [Units/volume] in Serum or PlasmaOrdered By: Jose Forman on 12-06-2024 HCG.beta subunit Qn Choriogonadotropin.b eta subunit [Units/volume] in Serum or Plasma [facility] Comment on above: Approximate Approxim ate hCG Gestational Age Range (mIU/ml) (weeks)0.2-1 5-50 1-2 50-500 2-3 100-5,000 3-4 500-10,000 4-5 1,000-50,000 5-6 10,000-100,000 6-8 15,000-200,000 8-12 10,000-100,000 Color Auto (U)Ordered By: Edin Forman on 12-06-2024 Color (U) Color of Urine by Auto Yellow [facility] Complete Blood Count Auto Di ffon 12-06-2024 Basophils (Bld) [#/Vol] 0.0 10*3/uL Normal 0.0-0.2 [facility] Comment on above: Result Comment: PERF ORMED BY: [facility] [address] [place] [address] PATHOLOGIST REHABILITATION THERAPY AIDE LEÓN GARCIA M.D. Performed By: #### C BC, HCGQNT, LIPASE, PT, HS TROP, PTT, HEPATIC, BMP ####[address] Basophils/100 WBC (Bld) 0.4 % Normal . [facility] Comment on above: Performed By: #### C BC, HCGQNT, LIPASE, PT, HS TROP, PTT, HEPATIC, BMP ####[address] Eosinophils (Bld) [#/Vol] 0.0 10*3/uL Normal 0.0-0.45 [facility] Comment on above: Performed By: #### C BC, HCGQNT, LIPASE, PT, HS TROP, PTT, HEPATIC, BMP ####[address] Eosinophils/100 WBC (Bld) 0.4 % Normal . [facility] Comment on above: Performed By: #### C BC, HCGQNT, LIPASE, PT, HS TROP, PTT, HEPATIC, BMP ####[address] Erythrocyte distribution width (RBC) [Ratio] 13.0 % Normal 11.9-15.3 [facility] Comment on above: Performed By: #### C BC, HCGQNT, LIPASE, PT, HS TROP, PTT, HEPATIC, BMP ####[address] Hematocrit (Bld) [Volume fraction] 38.5 % Normal 34.0-46.4 [facility] Comment on above: Performed By: #### C BC, HCGQNT, LIPASE, PT, HS TROP, PTT, HEPATIC, BMP ####[address] Hemoglobin (Bld) [Mass/Vol] 13.4 g/dL Normal 11.8-15.4 [facility] Comment on above: Performed By: #### C BC, HCGQNT, LIPASE, PT, HS TROP, PTT, HEPATIC, BMP ####[address] Lymphocytes (Bld) [#/Vol] 1.1 10*3/uL Normal 1.00-4.8 [facility] Comment on above: Performed By: #### C BC, HCGQNT, LIPASE, PT, HS TROP, PTT, HEPATIC, BMP ####[address] Lymphocytes/100 WBC (Bld) 14.1 % Normal . [facility] Comment on above: Performed By: #### C BC, HCGQNT, LIPASE, PT, HS TROP, PTT, HEPATIC, BMP ####[address] MCH (RBC) [Entitic mass] 27.6 pg Normal 24.7-34.3 [facility] Comment on above: Performed By: #### C BC, HCGQNT, LIPASE, PT, HS TROP, PTT, HEPATIC, BMP ####[address] MCV (RBC) [Entitic vol] 79.6 fL Low 80-100 [facility] Comment on above: Performed By: #### C BC, HCGQNT, LIPASE, PT, HS TROP, PTT, HEPATIC, BMP ####[address] Mean Corpuscular HGB Conc 34.7 g/dL Normal 32.0-35.0 [facility] Comment on above: Performed By: #### C BC, HCGQNT, LIPASE, PT, HS TROP, PTT, HEPATIC, BMP ####[address] Monocytes (Bld) [#/Vol] 0.5 10*3/uL Normal 0.0-0.8 [facility] Comment on above: Performed By: #### C BC, HCGQNT, LIPASE, PT, HS TROP, PTT, HEPATIC, BMP ####[address] Monocytes/100 WBC (Bld) 16.18 % Normal 0.00-20.00 [facility] Comment on above: Performed By: #### C BC, HCGQNT, LIPASE, PT, HS TROP, PTT, HEPATIC, BMP ####[address] Monocytes/100 WBC (Bld) 6.4 % Normal . [facility] Comment on above: Performed By: #### C BC, HCGQNT, LIPASE, PT, HS TROP, PTT, HEPATIC, BMP ####[address] Neutrophils (Bld) [#/Vol] 5.9 10*3/uL Normal 1.8-7.7 [facility] Comment on above: Performed By: #### C BC, HCGQNT, LIPASE, PT, HS TROP, PTT, HEPATIC, BMP ####[address] Neutrophils/100 WBC (Bld) 78.7 % Normal . [facility] Comment on above: Performed By: #### C BC, HCGQNT, LIPASE, PT, HS TROP, PTT, HEPATIC, BMP ####[address] NRBC% 0.0 /100{WBC} Normal 0-0.5 [facility] Comment on above: Performed By: #### C BC, HCGQNT, LIPASE, PT, HS TROP, PTT, HEPATIC, BMP ####[place] [id number] Platelet mean volume (Bld) [Entitic vol] 8.7 fL Normal 6.3-10.7 [facility] Comment on above: Performed By: #### C BC, HCGQNT, LIPASE, PT, HS TROP, PTT, HEPATIC, BMP ####[place] [id number] Platelets (Bld) [#/Vol] 230 10*3/uL Normal 150-450 [facility] Comment on above: Performed By: #### C BC, HCGQNT, LIPASE, PT, HS TROP, PTT, HEPATIC, BMP ####[place] [id number] RBC (Bld) [#/Vol] 4.84 10*6/uL Normal 3.60-5.00 [facility] Comment on above: Performed By: #### C BC, HCGQNT, LIPASE, PT, HS TROP, PTT, HEPATIC, BMP ####[place] [id number] WBC (Bld) [#/Vol] 7.6 10*3/uL Normal 3.8-11.6 [facility] Comment on above: Performed By: #### C BC, HCGQNT, LIPASE, PT, HS TROP, PTT, HEPATIC, BMP ####[address] Creatinine [Mass/volume] in Serum or PlasmaOrdered By: Jose Forman on 12-06-2024 Creatinine [Mass/Vol] Creatinine [Mass/v olume] in Serum or Plasma 0.60-1.20 [facility] Dipstick and Microscopicon 0 12-06-2024 Appearance (U) Clear Normal Clear [facility] Comment on above: Order Comment: Name Collection Type:: Clean-Voided Midstream Performed By: #### U HCG, ADDONUAPLUS #### [facility] [address] Bacteria,Urine None Seen Normal None Seen [facility] Comment on above: Order Comment: Name Collection Type:: Clean-Voided Midstream Performed By: #### U HCG, ADDONUAPLUS #### [facility] [address] [place] [address] [place] Bilirubin,Urine Negative Normal Negative [facility] Comment on above: Order Comment: Name Collection Type:: Clean-Voided Midstream Performed By: #### U HCG, ADDONUAPLUS #### [address] Color (U) Yellow Normal Yellow [facility] Comment on above: Order Comment: Name Collection Type:: Clean-Voided Midstream Performed By: #### U HCG, ADDONUAPLUS #### [address] Glucose Ql (U) Normal Normal Normal [facility] Comment on above: Order Comment: Name Collection Type:: Clean-Voided Midstream Performed By: #### U HCG, ADDONUAPLUS #### [place] [address] [place] Hyaline Casts,Urine None Normal 0-8 [facility] Comment on above: Order Comment: Name Collection Type:: Clean-Voided Midstream Performed By: #### U HCG, ADDONUAPLUS #### [address] Ketones Ql (U) 1+ High Negative [facility] Comment on above: Order Comment: Name Collection Type:: Clean-Voided Midstream Performed By: #### U HCG, ADDONUAPLUS #### [place] [address] [place] Leukocyte esterase Test strip Ql (U) Negative Normal Negative [facility] Comment on above: Order Comment: Name Collection Type:: Clean-Voided Midstream Performed By: #### U HCG, ADDONUAPLUS #### [place] [address] [place] Mucus,Urine Rare Normal [facility] Comment on above: Order Comment: Name Collection Type:: Clean-Voided Midstream Performed By: #### U HCG, ADDONUAPLUS #### [place] [address] [place] Nitrite,Urine Negative Normal Negative [facility] Comment on above: Order Comment: Name Collection Type:: Clean-Voided Midstream Performed By: #### U HCG, ADDONUAPLUS #### [address] Occult Blood,Urine Negative Normal Negative [facility] Comment on above: Order Comment: Name Collection Type:: Clean-Voided Midstream Performed By: #### U HCG, ADDONUAPLUS #### [address] pH (U) 6.5 [pH] Normal 5.0-9.0 [facility] Comment on above: Order Comment: Name Collection Type:: Clean-Voided Midstream Performed By: #### U HCG, ADDONUAPLUS #### [place] [address] [place] Protein,Urine Trace High Negative [facility] Comment on above: Order Comment: Name Collection Type:: Clean-Voided Midstream Performed By: #### U HCG, ADDONUAPLUS #### [address] RBC,Urine 1-2 Normal 0-4 [facility] Comment on above: Order Comment: Name Collection Type:: Clean-Voided Midstream Performed By: #### U HCG, ADDONUAPLUS #### [address] Specificy [place],Urine 1.025 Normal 1.001-1.03 0 [facility] Comment on above: Order Comment: Name Collection Type:: Clean-Voided Midstream Performed By: #### U HCG, ADDONUAPLUS #### [address] Squamous Epithelial Cell,Urine 1-2 Normal 0-2 [facility] Comment on above: Order Comment: Name Collection Type:: Clean-Voided Midstream Performed By: #### U HCG, ADDONUAPLUS #### [facility] [address] Urobilinogen,Urine Normal Normal Normal [facility] Comment on above: Order Comment: Name Collection Type:: Clean-Voided Midstream Performed By: #### U HCG, ADDONUAPLUS #### [facility] [address] [place] [address] [place] WBC,Urine 1-2 Normal 0-4 [facility] Comment on above: Order Comment: Name Collection Type:: Clean-Voided Midstream Performed By: #### U HCG, ADDONUAPLUS #### [facility] [address] ECG 12 lead ECGon 12-06-2024 ECG 12 lead ECG [facility] [place] [address] [place] [address] Electrocardiograph Report Signed Patient: Noris Goetz MR#: [id number] 61 : 1990 Acct:[id number] Age/Sex: 34 / F ADM Date: 12/06/24 Loc: ER Room: Type: [facility] ER Attending Dr: Ordering Provider: [...] branch block Confirmed by Jose FORMAN DO ([id number]) on 12/06/2024 10:38:39 AM Referred By: Electronically Signed By: Jose FORMAN DO Transcribed By: MUS Signed By Jose Forman DO 0 12/06/24 1038 Normal [facility] Eosinophils Auto (Bld) [#/Vo l]Ordered By: Jose Forman on 12-06-2024 Eosinophils (Bld) [#/Vol] Automated eosinophil count 0.0-0.45 [facility] Eosinophils/100 WBC Auto (Bl d)Ordered By: Jose Forman on 12-06-2024 Eosinophils/100 WBC (Bld) Automated eosinophil % . [facility] Epithelial cells.squamous [# /area] in Urine sediment by Automated countOrdered By: Jose Forman on 12-06-2024 Epithelial cells.squamous Auto (Urine sed) [#/Area] Epithelial cells.squamous [#/area] in Urine sediment by Automated count 0-2 [facility] Erythrocyte distribution wid th Auto (RBC) [Ratio]Ordered By: Jose Forman on 12-06-2024 Erythrocyte distribution width (RBC) [Ratio] Erythrocyte distribution width [Ratio] by Automated count 11.9-15.3 [facility] Erythrocytes [#/area] in Uri ne sediment by Automated countOrdered By: Jose Forman on 12-06-2024 RBC Auto (Urine sed) [#/Area] Erythrocytes [#/area] in Urine sediment by Automated count 0-4 [facility] Globulin Calc (S) [Mass/Vol] Ordered By: Jose Forman on 12-06-2024 Globulin (S) [Mass/Vol] Serum globulin measurement by calculation (mass/volume) [facility] Glucose [Mass/volume] in Ser um or PlasmaOrdered By: Jose Forman on 12-06-2024 Glucose [Mass/Vol] Glucose [Mass/volume ] in Serum or Plasma 70-100 [facility] Comment on above: ADA recommended refe [...] Urine by Test strip Normal [facility] HCG ( test) IA.rapi d Ql (U)Ordered By: Jose Forman on 12-06-2024 HCG ( test) Ql (U) Urine human chorionic gonadotropin (hCG) detection by immunoassay High [facility] HCG,Quantitativeon HCG,Quantitative 765200.00 m[iU]/mL Normal [facility] Comment on above: Result Comment: Appr oximate Approximate hCG Gestational Age Range (mIU/ml) (weeks) 0.2-1 5-50 1-2 50-500 2-3 100-5,000 3-4 500-10,000 4-5 1,000-50,000 5-6 10,000-100,000 6-8 15,000-200,000 8-12 10,000-100,000 PERFORMED BY: [place] [address] PATHOLOGIST REHABILITATION THERAPY AIDE LEÓN GARCIA M.D. Performed By: #### C BC, HCGQNT, LIPASE, PT, HS TROP, PTT, HEPATIC, BMP ####[facility] [id number] HCG,Urineon 12-06-2024 Beta HCG ( test) Ql (U) Positive High [facility] Comment on above: Order Comment: Name Collection Type:: Clean-Voided Midstream Result Comment: PERF ORMED BY: [place] [address] PATHOLOGIST REHABILITATION THERAPY AIDE LEÓN GARCIA M.D. Performed By: #### U HCG, ADDONUAPLUS #### [facility] [address] [place] [address] Hematocrit Auto (Bld) [Volum e fraction]Ordered By: Jose Forman on 12-06-2024 Hematocrit (Bld) [Volume fraction] Hematocrit [Volume Fraction] of Blood by Automated count 34.0-46.4 [facility] Hemoglobin Test strip Ql (U) Ordered By: Jose Forman on 12-06-2024 Hemoglobin Ql (U) Hemoglobin [Presence ] in Urine by Test strip Negative [facility] Hemoglobin [Mass/volume] in BloodOrdered By: Jose Forman on 12-06-2024 Hemoglobin (Bld) [Mass/Vol] Hemoglobin [Mass/volume] in Blood 11.8-15.4 [facility] Hepatic Panelon 12-06-2024 Albumin [Mass/Vol] 4.1 g/dL Normal 3.5-5.7 [facility] Comment on above: Performed By: #### C BC, HCGQNT, LIPASE, PT, HS TROP, PTT, HEPATIC, BMP ####[address] Albumin/Globulin [Mass ratio] 1.6 {ratio} Normal [facility] Comment on above: Performed By: #### C BC, HCGQNT, LIPASE, PT, HS TROP, PTT, HEPATIC, BMP ####[address] ALP [Catalytic activity/Vol] 47 U/L Normal 34-104 [facility] Comment on above: Performed By: #### C BC, HCGQNT, LIPASE, PT, HS TROP, PTT, HEPATIC, BMP ####[address] ALT [Catalytic activity/Vol] 11 U/L Normal 7-52 [facility] Comment on above: Performed By: #### C BC, HCGQNT, LIPASE, PT, HS TROP, PTT, HEPATIC, BMP ####[address] AST [Catalytic activity/Vol] 12 U/L Low 13-39 [facility] Comment on above: Performed By: #### C BC, HCGQNT, LIPASE, PT, HS TROP, PTT, HEPATIC, BMP ####[address] Bilirubin [Mass/Vol] 0.5 mg/dL Normal 0.3-1.0 [facility] Comment on above: Performed By: #### C BC, HCGQNT, LIPASE, PT, HS TROP, PTT, HEPATIC, BMP ####[address] Bilirubin,Indirect 0.4 mg/dL Normal [facility] Comment on above: Performed By: #### C BC, HCGQNT, LIPASE, PT, HS TROP, PTT, HEPATIC, BMP ####[address] Bilirubin.indirect [Mass/Vol] 0.10 mg/dL Normal 0.03-0.18 [facility] Comment on above: Performed By: #### C BC, HCGQNT, LIPASE, PT, HS TROP, PTT, HEPATIC, BMP ####[facility] [id number] [place] [address] [facility] Globulin (S) [Mass/Vol] 2.6 g/dL Normal [facility] Comment on above: Performed By: #### C BC, HCGQNT, LIPASE, PT, HS TROP, PTT, HEPATIC, BMP ####[facility] [place] [id number] [facility] Protein [Mass/Vol] 6.7 g/dL Normal 6.4-8.9 [facility] Comment on above: Performed By: #### C BC, HCGQNT, LIPASE, PT, HS TROP, PTT, HEPATIC, BMP ####[facility] [place] [id number] [facility] Hyaline casts [#/area] in Ur ine sediment by Automated countOrdered By: Jose Forman on 12-06-2024 Hyaline casts Auto (Urine sed) [#/Area] Hyaline casts [#/area] in Urine sediment by Automated count 0-8 [facility] INR in Platelet poor plasma by Coagulation assayOrdered By: Jose Forman on 12-06-2024 INR Coag (PPP) [Relative time] INR in Platelet poor plasma by Coagulation assay [facility] Comment on above: INR Therapeutic Rang [...] by Test strip High Negative [facility] Leukocyte esterase [Presence ] in Urine by Test stripOrdered By: Jose Forman on 12-06-2024 Leukocyte esterase Test strip Ql (U) Leukocyte esterase [Presence] in Urine by Test strip Negative [facility] Leukocytes [#/area] in Urine sediment by Automated countOrdered By: Jose Forman on 12-06-2024 WBC Auto (Urine sed) [#/Area] Leukocytes [#/area] in Urine sediment by Automated count 0-4 [facility] Leukocytes [#/volume] correc randolph for nucleated erythrocytes in Blood by Automated counOrdered By: Jose Forman on 12-06-2024 WBC corrected for nucl RBC Auto (Bld) [#/Vol] Leukocytes [#/volume] corrected for nucleated erythrocytes in Blood by Automated coun 3.8-11.6 [facility] Lipaseon 12-06-2024 Lipase [Catalytic activity/Vol] 11.0 U/L Normal 11.0-82.0 [facility] Comment on above: Performed By: #### C BC, HCGQNT, LIPASE, PT, HS TROP, PTT, HEPATIC, BMP ####[facility] [address] [place] [address] [facility] Lipase [Enzymatic activity/v olume] in Serum or PlasmaOrdered By: Jose Forman on 12-06-2024 Lipase [Catalytic activity/Vol] Lipase [Enzymatic activity/volume] in Serum or Plasma 11.0-82.0 [facility] Lymphocytes Auto (Bld) [#/Vo l]Ordered By: Jose Forman on 12-06-2024 Lymphocytes (Bld) [#/Vol] Lymphocytes [#/volume] in Blood by Automated count 1.00-4.8 [facility] Lymphocytes/100 WBC Auto (Bl d)Ordered By: Jose Forman on 12-06-2024 Lymphocytes/100 WBC (Bld) Lymphocytes/100 leukocytes in Blood by Automated count . [facility] MCH Auto (RBC) [Entitic mass ]Ordered By: Jose Forman on 12-06-2024 MCH (RBC) [Entitic mass] MCH [Entitic mass] by Automated count 24.7-34.3 [facility] MCHC Auto (RBC) [Mass/Vol]Or dered By: Jose Forman on 12-06-2024 MCHC (RBC) [Mass/Vol] MCHC [Mass/volume] by Automated count 32.0-35.0 [facility] MCV Auto (RBC) [Entitic vol] Ordered By: Jose Forman on 12-06-2024 MCV (RBC) [Entitic vol] MCV [Entitic volume] by Automated count Low 80-100 [facility] Monocyte distribution width [Entitic volume] in Blood by AutomatedOrdered By: Jose Forman on 12-06-2024 Monocyte distribution width Auto (Bld) [Entitic vol] Monocyte distribution width [Entitic volume] in Blood by Automated 0.00-20.00 [facility] Monocytes Auto (Bld) [#/Vol] Ordered By: Jose Forman on 12-06-2024 Monocytes (Bld) [#/Vol] Automated blood monocyte count 0.0-0.8 [facility] Monocytes/100 WBC Auto (Bld) Ordered By: Jose Forman on 12-06-2024 Monocytes/100 WBC (Bld) Automated monocyte % . [facility] Mucus [Presence] in Urine by AutomatedOrdered By: Jose Forman on 12-06-2024 Mucus Auto Ql (U) Mucus [Presence] in Urine by Automated [facility] Neutrophils Auto (Bld) [#/Vo l]Ordered By: Jose Forman on 12-06-2024 Neutrophils (Bld) [#/Vol] Neutrophils [#/volume] in Blood by Automated count 1.8-7.7 [facility] Neutrophils/100 WBC Auto (Bl d)Ordered By: Jose Forman on 12-06-2024 Neutrophils/100 WBC (Bld) Automated neutrophil % . [facility] Nitrite Test strip Ql (U)Ord ered By: Jose Forman on 12-06-2024 Nitrite Ql (U) Nitrite [Presence] i n Urine by Test strip Negative [facility] No Panel InformationOrdered By: Jose Forman on 12-06-2024 Estimated GFR (CKD-EPI) > 60.0 mL/Min [facility] Creatinine Clearance (Chem 129.71 [facility] Nucleated erythrocytes [Pres ence] in Blood by Automated countOrdered By: Jose Forman on 12-06-2024 Nucleated RBC Auto Ql (Bld) Nucleated erythrocytes [Presence] in Blood by Automated count 0-0.5 [facility] Partial Thromboplastin Timeo n 12-06-2024 aPTT Coag (Bld) [Time] 28.1 s Normal 25.1-36.5 [facility] Comment on above: Result Comment: A he matocrit value greater than 55% may lead to inaccurate results in coagulation testing. Patients having hematocrit values >55% require a special collection tube for coagulation studies. Please contact the laboratory at [phone] for redraw instructions. PERFORMED BY: [facility] [address] [place] [address] PATHOLOGIST REHABILITATION THERAPY AIDE LEÓN GARCIA M.D. Performed By: #### C BC, HCGQNT, LIPASE, PT, HS TROP, PTT, HEPATIC, BMP ####[facility] [id number] [place] [address] [facility] Platelet mean volume Auto (B ld) [Entitic vol]Ordered By: Jose Forman on 12-06-2024 Platelet mean volume (Bld) [Entitic vol] Platelet mean volume [Entitic volume] in Blood by Automated count 6.3-10.7 [facility] Platelets Auto (Bld) [#/Vol] Ordered By: Jose Forman on 12-06-2024 Platelets (Bld) [#/Vol] Platelets [#/volume] in Blood by Automated count 150-450 [facility] Potassium [Moles/volume] in Serum or PlasmaOrdered By: Jose Forman on 12-06-2024 Potassium [Moles/Vol] Potassium [Moles/v olume] in Serum or Plasma 3.5-5.1 [facility] Protein Test strip (U) [Mass /Vol]Ordered By: Jose Forman on 12-06-2024 Protein (U) [Mass/Vol] Protein [Mass/vol ume] in Urine by Test strip High Negative [facility] Protein [Mass/volume] in Ser um or PlasmaOrdered By: Jose Forman on 12-06-2024 Protein [Mass/Vol] Protein [Mass/volume ] in Serum or Plasma 6.4-8.9 [facility] Prothrombin Time INRon 12-06 INR Coag (PPP) [Relative time] 1.1 {INR} Normal [facility] Comment on above: Result Comment: [...] LIPASE, PT, HS TROP, PTT, HEPATIC, BMP ####[facility] [id number] [place] [address] [facility] PT Coag (PPP) [Time] 12.3 s Normal 9.0-12.9 [facility] Comment on above: Result Comment: A he matocrit value greater than 55% may lead to inaccurate results in coagulation testing. Patients having hematocrit values >55% require a special collection tube for coagulation studies. Please contact the laboratory at [phone] for redraw instructions. Performed By: #### C BC, HCGQNT, LIPASE, PT, HS TROP, PTT, HEPATIC, BMP ####[facility] [id number] [place] [id number] [facility] Prothrombin time (PT)Ordered By: oJse Forman on 12-06-2024 PT Coag (PPP) [Time] Prothrombin time (PT) 9.0- 12.9 [facility] Comment on above: A hematocrit value g reater than 55% may lead to inaccurate results in coagulation testing. Patients having hematocrit values >55% require a special collection tube for coagulation studies. Please contact the laboratory at [phone] for redraw instructions. RBC Auto (Bld) [#/Vol]Ordere d By: Jose Forman on 12-06-2024 RBC (Bld) [#/Vol] Erythrocytes [#/volu me] in Blood by Automated count 3.60-5.00 [facility] Serum or plasma albumin/glob ulin mass ratioOrdered By: Jose Forman on 12-06-2024 Albumin/Globulin [Mass ratio] Serum or plasma albumin/globulin mass ratio [facility] Serum or plasma anion gap de terminationOrdered By: Jose Forman on 12-06-2024 Anion gap [Moles/Vol] Serum or plasma an ion gap determination 6.0-15.0 [facility] Serum or plasma non-glucuron idated bilirubin measurement (mass/volume)Ordered By: Jose Forman on 12-06-2024 Bilirubin.indirect [Mass/Vol] Serum or plasma non-glucuronidated bilirubin measurement (mass/volume) [facility] Sodium [Moles/volume] in Ser um or PlasmaOrdered By: Jose Forman on 12-06-2024 Sodium [Moles/Vol] Sodium [Moles/volume ] in Serum or Plasma Low 136-145 [facility] Specific gravity Test strip (U) [Rel density]Ordered By: Jose Forman on 12-06-2024 Specific gravity (U) [Rel density] Specific gravity of Urine by Test strip 1.001-1.03 0 [facility] Troponin I High Sensitivityo n 12-06-2024 Troponin I High Sensitivity 3 Normal 0-15 [facility] Comment on above: Result Comment: The Troponin units of report have been changed to meet the Chest Pain Accreditation requirement, element EC5.M1l2. Troponin units are changed from pg/ml to ng/L. Also, the decimal is removed and results are in whole numbers. PERFORMED BY: [place] [address] PATHOLOGIST REHABILITATION THERAPY AIDE LEÓN GARCIA M.D. Performed By: #### C BC, HCGQNT, LIPASE, PT, HS TROP, PTT, HEPATIC, BMP ####[facility] [id number] Troponin I.cardiac [Mass/vol ume] in Serum or Plasma by Detection limit <= 0.01 ng/Ordered By: Jose Forman on 12-06-2024 Troponin I.cardiac DL <= 0.01 ng/mL [Mass/Vol] Troponin I.cardiac [Mass/volume] in Serum or Plasma by Detection limit <= 0.01 ng/ 0-15 [facility] Comment on above: The Troponin units o f report have been changed to meet the Chest Pain Accreditation requirement, element EC5.M1l2. Troponin units are changed from pg/ml to ng/L. Also, the decimal is removed and results are in whole numbers. US OB <= 14 weeks fetuson US OB <= 14 weeks fetus [facility] [place] [place] [address] Ultrasound Report Signed Patient: Noris Goetz MR#: [id number] 61 : 1990 Acct:[id number] Age/Sex: 34 / F ADM Date: 12/06/24 Loc: ER Room: Type: [facility] ER Attending Dr: Ordering Provider: Jose Forman DO Date of Service: 12/06/24 US/US OB <= 14 weeks fetus: Abdominal Pain Copies to: Jose Forman DO Obstetrical ultrasound for fetus less than 14 weeks HISTORY: Abdominal pain. Vaginal bleeding COMPARISON: None The heart rate is 126bpm. Ovaries not visualized No free fluid identified in cul-de-sac. No subchorionic hemorrhage identified. Two [place]-rump length measures 6.4cm consistent with 6 weeks 4 days. The yolk sac is not seen. The estimated due date by this ultrasound is 07/28/2025. US/US OB <= 14 weeks fetus IMPRESSION: Single live anterior gestation 6 weeks 4 days. Impression dictated by: Alfonzo Flores M.D.12/06/2024 9:55 AM Dictation Location: [place] [address] Tech: Antonieta Greenberg Transcribed By: JOSESITO 12/06/24 0955 Dictated By: Alfonzo Flores DO 12/06/24 0954 Signed By: 12/06/2455 Normal [facility] Urea nitrogen [Mass/volume] in Serum or PlasmaOrdered By: Jose Forman on 12-06-2024 Urea nitrogen [Mass/Vol] Urea nitrogen [Mass/volume] in Serum or Plasma 05-11 [facility] Urobilinogen Test strip (U) [Mass/Vol]Ordered By: Jose Forman on 12-06-2024 Urobilinogen (U) [Mass/Vol] Urobilinogen [Mass/volume] in Urine by Test strip Normal [facility] WBC Auto (Bld) [#/Vol]Ordere d By: Jose Forman on 12-06-2024 WBC (Bld) [#/Vol] Leukocytes [#/volume ] in Blood by Automated count 3.8-11.6 [facility] aPTT in Platelet poor plasma by Coagulation assayOrdered By: Jose Forman on 12-06-2024 aPTT Coag (PPP) [Time] Activated partial thromboplastin time (aPTT) in platelet poor plasma by coagulation a 25.1-36.5 [facility] Comment on above: A hematocrit value g reater than 55% may lead to inaccurate results in coagulation testing. Patients having hematocrit values >55% require a special collection tube for coagulation studies. Please contact the laboratory at [phone] for redraw instructions. pH Test strip (U)Ordered By: Jose Forman on 12-06-2024 pH (U) pH of Urine by Test strip 5.0-9.0 [facility] XR chest 2V*on 08-11-2024 XR chest 2V* [facility] [place] [address] [place] [address] XRay Report Signed Patient: Noris Goetz MR#: [id number] 61 : 1990 Acct:[id number] Age/Sex: 34 / F ADM Date: 08/11/24 Loc: [facility] Room: Type: [facility] Attending Dr: Melissa Reddy [employer] Copies to: Melissa Reddy APRN Ordering Provider: [...] Alfonzo Flores M.D.08/11/2024 9:59 AM Dictation Location: [place] [address] Transcribed By: [facility] 08/11/24958 Dictated By: Alfonzo Flores DO 08/11/24 0958 Signed By: 08/11/24958 Normal [facility] No Panel InformationOrdered By: Derrick Wilson on 08-02-2024 Miscellaneous Pathology Test See comment [facility] Comment on above: See report. Scanned copy available in EMR. Pathology Request for Lab Co rpon 08-02-2024 Pathology Request for Lab Ministerio Normal [facility] Comment on above: Order Comment: PATHO LOGY SKIN SPECIMEN Result Comment: See report. Scanned copy available in EMR. PERFORMED BY: [place] [address] PATHOLOGIST REHABILITATION THERAPY AIDE JOAN CROWLEY M.D. Performed By: #### P ATH TO [facility] ####[facility] [id number] [place] [id number] [facility] US extremity nonvascularon 0 05-23-2024 US extremity nonvascular [facility] [place] [address] Ultrasound Report Signed Patient: Noris Goetz MR#: [id number] 61 : 1990 Acct:[id number] Age/Sex: 34 / F ADM Date: 05/23/24 Loc: Room: Type: [facility] Attending Dr: Marianela Oliva MD Ordering [...] Annel [place] M.D.05/23/2024 2:18 PM Dictation Location: [place] [address] Tech: Ayleen Hackett Transcribed By: JOSESITO 05/23/24 1418 Dictated By: Annel [place] MD 05/23/24 1414 Signed By: 05/23/24 1418 Normal [facility] Automated basophil %Ordered By: Mario Perez on 05-17-2024 Basophils/100 WBC (Bld) 0.8 % Normal . [facility] Comment on above: Order Comment: RONNIE MAURO JKW Performed By: #### P ILLAR TSH, PILLAR CBC, PILLAR BMP, PILLAR LIPID #### [address] Automated basophil countOrde red By: Mario Perez on 05-17-2024 Basophils (Bld) [#/Vol] 0.0 10*3/uL Normal 0.0-0.2 [facility] Comment on above: Order Comment: FASTJoni HollandKW Result Comment: PERF ORMED BY: [place] [address] PATHOLOGIST REHABILITATION THERAPY AIDE JOAN CROWLEY M.D. Performed By: #### P ILLAR TSH, PILLAR CBC, PILLAR BMP, PILLAR LIPID #### [address] Automated blood monocyte cou ntOrdered By: Mario Perez on 05-17-2024 Monocytes (Bld) [#/Vol] 0.6 10*3/uL Normal 0.0-0.8 [facility] Comment on above: Order Comment: FASTJoni COBIAN. JKW Performed By: #### P ILLAR TSH, PILLAR CBC, PILLAR BMP, PILLAR LIPID #### [address] Automated eosinophil %Ordere d By: Mario Perez on 05-17-2024 Eosinophils/100 WBC (Bld) 5.3 % Normal . [facility] Comment on above: Order Comment: FASTI ARANZA. JKW Performed By: #### P ILLAR TSH, PILLAR CBC, PILLAR BMP, PILLAR LIPID #### [facility] [address] [place] [address] Automated eosinophil countOr dered By: Mario Perez on 05-17-2024 Eosinophils (Bld) [#/Vol] 0.3 10*3/uL Normal 0.0-0.45 [facility] Comment on above: Order Comment: FASTI NG. JKW Performed By: #### P ILLAR TSH, PILLAR CBC, PILLAR BMP, PILLAR LIPID #### [facility] [address] Automated monocyte %Ordered By: Mario Perez on 05-17-2024 Monocytes/100 WBC (Bld) 10.8 % Normal . [facility] Comment on above: Order Comment: FASTI NG. JKW Performed By: #### P ILLAR TSH, PILLAR CBC, PILLAR BMP, PILLAR LIPID #### [facility] [address] [place] [address] Automated neutrophil %Ordere d By: Mario Perez on 05-17-2024 Neutrophils/100 WBC (Bld) 55.1 % Normal . [facility] Comment on above: Order Comment: FASTI NG. JKW Performed By: #### P ILLAR TSH, PILLAR CBC, PILLAR BMP, PILLAR LIPID #### [address] Calcium [Mass/volume] in Ser um or PlasmaOrdered By: Mario Perez on 05-17-2024 Calcium [Mass/Vol] 8.5 mg/dL Low 8.6-10.3 [facility] Comment on above: Order Comment: FASTI NG. JKW Performed By: #### P ILLAR TSH, PILLAR CBC, PILLAR BMP, PILLAR LIPID #### [facility] [address] [place] [address] Carbon dioxide, total [Moles /volume] in Serum or PlasmaOrdered By: Mario Perez on 05-17-2024 CO2 [Moles/Vol] 27.7 mmol/L Normal 21.0-31.0 [facility] Comment on above: Order Comment: FASTI NG. JKW Performed By: #### P ILLAR TSH, PILLAR CBC, PILLAR BMP, PILLAR LIPID #### [facility] [address] [place] [address] [place] Chloride [Moles/volume] in S eamon or PlasmaOrdered By: Mario Perez on 05-17-2024 Chloride [Moles/Vol] 109 mmol/L High 98-107 [facility] Comment on above: Order Comment: RONNIE GRIMALDO Performed By: #### P ILLAR TSH, PILLAR CBC, PILLAR BMP, PILLAR LIPID #### [facility] [address] Cholesterol [Mass/volume] in Serum or PlasmaOrdered By: Mairo Perez on 05-17-2024 Cholesterol [Mass/Vol] 170 mg/dL Normal 140-200 [facility] Comment on above: Chol less than 200 m g/dl low riskChol 201-239 mg/dl borderline riskChol 240 mg/dl and greater high risk Order Comment: RONNIE GRIMALDO Result Comment: Chol less than 200 mg/dl low risk Chol 201-239 mg/dl borderline risk Chol 240 mg/dl and greater high risk Performed By: #### P ILLAR TSH, PILLAR CBC, PILLAR BMP, PILLAR LIPID #### [facility] [address] Cholesterol in LDL Calc [Mas s/Vol]Ordered By: Mario Perez on 05-17-2024 Cholesterol in LDL [Mass/Vol] 109 mg/dL High 0-100 [facility] Comment on above: LDL ATP III CLASSIFI CATIONLDL less than 100 mg/dL OptimalLDL 100-129 mg/dL Near or above optimalLDL 130-159 mg/dL Borderline highLDL 160-189 mg/dL HighLDL greater than 189 mg/dL Very high Cholesterol in VLDL Calc [Ma ss/Vol]Ordered By: Mario Perez on 05-17-2024 Cholesterol in VLDL [Mass/Vol] 10 mg/dL [facility] Creatinine [Mass/volume] in Serum or PlasmaOrdered By: Mario Perez on 05-17-2024 Creatinine [Mass/Vol] 0.73 mg/dL Normal 0.60-1.20 [facility] Comment on above: Order Comment: RONNIE PEPEW Performed By: #### P ILLAR TSH, PILLAR CBC, PILLAR BMP, PILLAR LIPID #### [facility] [address] Employee Basic Metabolic Nails anushka 05-17-2024 GFR/1.73 sq M.predicted MDRD (S/P/Bld) [Vol rate/Area] mL/min/{1.73_m2} Normal [facility] Comment on above: Order Comment: FASTI NG. JKW Performed By: #### P ILLAR TSH, PILLAR CBC, PILLAR BMP, PILLAR LIPID #### [facility] [address] Employee Complete Blood Coun ton 05-17-2024 Mean Corpuscular HGB Conc 34.2 g/dL Normal 32.0-35.0 [facility] Comment on above: Order Comment: FASTI NG. JKW Performed By: #### P ILLAR TSH, PILLAR CBC, PILLAR BMP, PILLAR LIPID #### [address] NRBC% 0.1 /100{WBC} Normal 0-0.5 [facility] Comment on above: Order Comment: FASTI NG. JKW Performed By: #### P ILLAR TSH, PILLAR CBC, PILLAR BMP, PILLAR LIPID #### [facility] [address] [place] [address] Employee Lipid Profileon LDL Cholesterol,Calculated 109 mg/dL High 0-100 [facility] Comment on above: Order Comment: FASTI NG. JKW Result Comment: LDL ATP III CLASSIFICATION LDL less than 100 mg/dL Optimal LDL 100-129 mg/dL Near or above optimal LDL 130-159 mg/dL Borderline high LDL 160-189 mg/dL High LDL greater than 189 mg/dL Very high Performed By: #### P ILLAR TSH, PILLAR CBC, PILLAR BMP, PILLAR LIPID #### [address] Triglyceride w/Reflex 52 mg/dL Normal 0-149 [facility] Comment on above: Order Comment: [...] PILLAR CBC, PILLAR BMP, PILLAR LIPID #### [address] VLDL CHOLESTEROL 10 mg/dL Normal [facility] Comment on above: Order Comment: FASTI NG. JKW Performed By: #### P ILLAR TSH, PILLAR CBC, PILLAR BMP, PILLAR LIPID #### [address] Employee Thyroid Stim Hormon paulo 05-17-2024 Employee Thyroid Stim Hormone 1.90 u[iU]/mL Normal 0.45-5.33 [facility] Comment on above: Order Comment: FASTI NG. JKW Result Comment: PERF ORMED BY: [place] [address] PATHOLOGIST REHABILITATION THERAPY AIDE JOAN CROWLEY M.D. Performed By: #### P ILLAR TSH, PILLAR CBC, PILLAR BMP, PILLAR LIPID #### [address] Erythrocyte distribution wid th [Ratio] by Automated countOrdered By: Mario Perez on 05-17-2024 Erythrocyte distribution width (RBC) [Ratio] 13.7 % Normal 11.9-15.3 [facility] Comment on above: Order Comment: FASTI NG. JKW Performed By: #### P ILLAR TSH, PILLAR CBC, PILLAR BMP, PILLAR LIPID #### [address] Erythrocytes [#/volume] in B lood by Automated countOrdered By: Mario Perez on 05-17-2024 RBC (Bld) [#/Vol] 4.62 10*6/uL Normal 3.60-5.00 [facility] Comment on above: Order Comment: FASTI NG. JKW Performed By: #### P ILLAR TSH, PILLAR CBC, PILLAR BMP, PILLAR LIPID #### [place] [id number] [place] Glucose [Mass/volume] in Ser um or PlasmaOrdered By: Mario Perez on 05-17-2024 Glucose [Mass/Vol] 95 mg/dL Normal 70-100 [facility] Comment on above: Order Comment: FASTI NG. JKW Performed By: #### P ILLAR TSH, PILLAR CBC, PILLAR BMP, PILLAR LIPID #### [facility] [address] [place] [address] Hematocrit [Volume Fraction] of Blood by Automated countOrdered By: Mario Perez on 05-17-2024 Hematocrit (Bld) [Volume fraction] 36.7 % Normal 34.0-46.4 [facility] Comment on above: Order Comment: FASTI NG. JKW Performed By: #### P ILLAR TSH, PILLAR CBC, PILLAR BMP, PILLAR LIPID #### [address] Hemoglobin [Mass/volume] in BloodOrdered By: Mario Perez on 05-17-2024 Hemoglobin (Bld) [Mass/Vol] 12.6 g/dL Normal 11.8-15.4 [facility] Comment on above: Order Comment: FASTI NG. JKW Performed By: #### P ILLAR TSH, PILLAR CBC, PILLAR BMP, PILLAR LIPID #### [facility] [address] [place] [address] Leukocytes [#/volume] correc randolph for nucleated erythrocytes in Blood by Automated counOrdered By: Mario Perez on 05-17-2024 WBC corrected for nucl RBC Auto (Bld) [#/Vol] 5.1 10*3/uL 3.8-11.6 [facility] Leukocytes [#/volume] in Blo od by Automated countOrdered By: Mario Perez on 05-17-2024 WBC (Bld) [#/Vol] 5.1 10*3/uL Normal 3.8-11.6 [facility] Comment on above: Order Comment: FASTI NG. JKW Performed By: #### P ILLAR TSH, PILLAR CBC, PILLAR BMP, PILLAR LIPID #### [facility] [address] Lymphocytes [#/volume] in Bl ood by Automated countOrdered By: Mario Perez on 05-17-2024 Lymphocytes (Bld) [#/Vol] 1.4 10*3/uL Normal 1.00-4.8 [facility] Comment on above: Order Comment: FASTI NG. JKW Performed By: #### P ILLAR TSH, PILLAR CBC, PILLAR BMP, PILLAR LIPID #### [address] Lymphocytes/100 leukocytes i n Blood by Automated countOrdered By: Mario Perez on 05-17-2024 Lymphocytes/100 WBC (Bld) 28.0 % Normal . [facility] Comment on above: Order Comment: FASTI NG. JKW Performed By: #### P ILLAR TSH, PILLAR CBC, PILLAR BMP, PILLAR LIPID #### [address] MCH [Entitic mass] by Automa randolph countOrdered By: Mario Perez on 05-17-2024 MCH (RBC) [Entitic mass] 27.2 pg Normal 24.7-34.3 [facility] Comment on above: Order Comment: FASTI NG. JKW Performed By: #### P ILLAR TSH, PILLAR CBC, PILLAR BMP, PILLAR LIPID #### [address] MCHC Auto (RBC) [Mass/Vol]Or dered By: Mario Perez on 05-17-2024 MCHC (RBC) [Mass/Vol] 34.2 g/dL 32.0-35.0 [facility] MCV [Entitic volume] by Auto mated countOrdered By: Mario Perez on 05-17-2024 MCV (RBC) [Entitic vol] 79.4 fL Low 80-100 [facility] Comment on above: Order Comment: FASTI NG. JKW Performed By: #### P ILLAR TSH, PILLAR CBC, PILLAR BMP, PILLAR LIPID #### [place] [id number] [place] Neutrophils [#/volume] in Bl ood by Automated countOrdered By: Mario Perez on 05-17-2024 Neutrophils (Bld) [#/Vol] 2.8 10*3/uL Normal 1.8-7.7 [facility] Comment on above: Order Comment: FASTI NG. JKW Performed By: #### P ILLAR TSH, PILLAR CBC, PILLAR BMP, PILLAR LIPID #### [facility] [address] No Panel InformationOrdered By: Mario Perez on 05-17-2024 Estimated GFR (CKD-EPI) > 60.0 mL/Min [facility] Creatinine Clearance (Chem N/A [facility] Nucleated erythrocytes [Pres ence] in Blood by Automated countOrdered By: Mario Perez on 05-17-2024 Nucleated RBC Auto Ql (Bld) 0.1 /100{WBC} 0-0.5 [facility] Platelet mean volume [Entiti c volume] in Blood by Automated countOrdered By: Mario Perez on 05-17-2024 Platelet mean volume (Bld) [Entitic vol] 8.9 fL Normal 6.3-10.7 [facility] Comment on above: Order Comment: FASTI NG. JKW Performed By: #### P ILLAR TSH, PILLAR CBC, PILLAR BMP, PILLAR LIPID #### [facility] [address] [place] [address] Platelets [#/volume] in Bloo d by Automated countOrdered By: Mario Perez on 05-17-2024 Platelets (Bld) [#/Vol] 192 10*3/uL Normal 150-450 [facility] Comment on above: Order Comment: FASTI NG. JKW Performed By: #### P ILLAR TSH, PILLAR CBC, PILLAR BMP, PILLAR LIPID #### [facility] [address] [place] [address] Potassium [Moles/volume] in Serum or PlasmaOrdered By: Mario Perez on 05-17-2024 Potassium [Moles/Vol] 3.9 mmol/L Normal 3.5-5.1 [facility] Comment on above: Order Comment: FASTI ARANAZ. JKW Performed By: #### P ILLAR TSH, PILLAR CBC, PILLAR BMP, PILLAR LIPID #### [facility] [address] Serum or plasma anion gap de terminationOrdered By: Mario Perez on 05-17-2024 Anion gap [Moles/Vol] 7.2 mmol/L Normal 6.0-15.0 [facility] Comment on above: Order Comment: FASTI NG. JKW Performed By: #### P ILLAR TSH, PILLAR CBC, PILLAR BMP, PILLAR LIPID #### [facility] [address] Serum or plasma high density lipoprotein (HDL) cholesterol measurementOrdered By: Mario Perez on 05-17-2024 Cholesterol in HDL [Mass/Vol] 51 mg/dL Normal 23-92 [facility] Comment on above: HDL CHOL ATP-III CLA SSIFICATION Cardiovascular RiskHDL > or equal to 60 mg/dL LOWHDL < 40 mg/dL HIGH Order Comment: FASTI ARANZA. JKW Result Comment: HDL CHOL ATP-III CLASSIFICATION Cardiovascular Risk HDL > or equal to 60 mg/dL LOW HDL < 40 mg/dL HIGH Performed By: #### P ILLAR TSH, PILLAR CBC, PILLAR BMP, PILLAR LIPID #### [facility] [address] Serum or plasma total choles terol/high density lipoprotein (HDL) cholesterol mass ratOrdered By: Mario Perez on 05-17-2024 Cholesterol.total/Chol esterol in HDL [Mass ratio] 3.3 {ratio} Normal <5.0 [facility] Comment on above: Order Comment: FASTI ARANZA. JKW Performed By: #### P ILLAR TSH, PILLAR CBC, PILLAR BMP, PILLAR LIPID #### [facility] [address] Sodium [Moles/volume] in Ser um or PlasmaOrdered By: Mario Perez on 05-17-2024 Sodium [Moles/Vol] 140 mmol/L Normal 136-145 [facility] Comment on above: Order Comment: RONNIE COBIAN. JKW Performed By: #### P ILLAR TSH, PILLAR CBC, PILLAR BMP, PILLAR LIPID #### [facility] [address] Thyrotropin [Units/volume] i n Serum or PlasmaOrdered By: Mario Perez on 05-17-2024 TSH Qn 1.90 m[IU]/L 0.45-5.33 [facility] Triglyceride [Mass/volume] i n Serum or PlasmaOrdered By: Mario Perez on 05-17-2024 Triglyceride [Mass/Vol] 52 mg/dL 0-149 [facility] Comment on above: TRIG ATP III CLASSIF ICATIONTRIG less than 150 mg/dL NormalTRIG 150-199 mg/dL Borderline highTRIG 200-500 mg/dL High TRIG greater than 500 mg/dL Very highStandard traceable to the Center for Disease Conrtrol and Prevention (CDC) test method. Urea nitrogen [Mass/volume] in Serum or PlasmaOrdered By: Mario Perez on 05-17-2024 Urea nitrogen [Mass/Vol] 15 mg/dL Normal 05-11 [facility] Comment on above: Order Comment: RONNIE COBIAN. JKW Performed By: #### P ILLAR TSH, PILLAR CBC, PILLAR BMP, PILLAR LIPID #### [address] Alanine aminotransferase [En zymatic activity/volume] in Serum or PlasmaOrdered By: Mario Perez on 07-12-2023 ALT [Catalytic activity/Vol] 14 U/L 7-52 [facility] Albumin [Mass/volume] in Ser um or Plasma by Bromocresol green (BCG) dye binding methoOrdered By: Mario Perez on 07-12-2023 Albumin BCG dye [Mass/Vol] 4.2 g/dL 3.5-5.7 [facility] Alkaline phosphatase [Enzyma tic activity/volume] in Serum or PlasmaOrdered By: Mario Perez on 07-12-2023 ALP [Catalytic activity/Vol] 45 U/L 34-104 [facility] Aspartate aminotransferase [ Enzymatic activity/volume] in Serum or PlasmaOrdered By: Mario Perez on 07-12-2023 AST [Catalytic activity/Vol] 15 U/L 13-39 [facility] Bilirubin.total [Mass/volume ] in Serum or PlasmaOrdered By: Mario Perez on 07-12-2023 Bilirubin [Mass/Vol] 0.4 mg/dL 0.3-1.0 [facility] Calcium [Mass/volume] in Ser um or PlasmaOrdered By: Mario Perez on 07-12-2023 Calcium [Mass/Vol] 8.9 mg/dL 8.6-10.3 [facility] Carbon dioxide, total [Moles /volume] in Serum or PlasmaOrdered By: Mario Perez on 07-12-2023 CO2 [Moles/Vol] 28.7 mmol/L 21.0-31.0 [facility] Chloride [Moles/volume] in S eamon or PlasmaOrdered By: Mario Perez on 07-12-2023 Chloride [Moles/Vol] 106 mmol/L 98-107 [facility] Cholesterol [Mass/volume] in Serum or PlasmaOrdered By: Mario Perez on 07-12-2023 Cholesterol [Mass/Vol] 194 mg/dL 140-200 [facility] Comment on above: Chol less than 200 m g/dl low riskChol 201-239 mg/dl borderline riskChol 240 mg/dl and greater high risk Cholesterol in LDL Calc [Mas s/Vol]Ordered By: Mario Perez on 07-12-2023 Cholesterol in LDL [Mass/Vol] 119 mg/dL 0-100 [facility] Comment on above: LDL ATP III CLASSIFI CATIONLDL less than 100 mg/dL OptimalLDL 100-129 mg/dL Near or above optimalLDL 130-159 mg/dL Borderline highLDL 160-189 mg/dL HighLDL greater than 189 mg/dL Very high Cholesterol in VLDL Calc [Ma ss/Vol]Ordered By: Mario Perez on 07-12-2023 Cholesterol in VLDL [Mass/Vol] 12 mg/dL [facility] Creatinine [Mass/volume] in Serum or PlasmaOrdered By: Mario Perez on 07-12-2023 Creatinine [Mass/Vol] 0.78 mg/dL 0.60-1.20 [facility] Globulin Calc (S) [Mass/Vol] Ordered By: Mario Perez on 07-12-2023 Globulin (S) [Mass/Vol] 2.2 g/dL [facility] Glucose [Mass/volume] in Ser um or PlasmaOrdered By: Mario Perez on 07-12-2023 Glucose [Mass/Vol] 99 mg/dL 70-100 [facility] No Panel InformationOrdered By: Mraio Perez on 07-12-2023 Estimated GFR (CKD-EPI) > 60.0 mL/Min [facility] Creatinine Clearance (Chem N/A [facility] Potassium [Moles/volume] in Serum or PlasmaOrdered By: Mario Perez on 07-12-2023 Potassium [Moles/Vol] 4.3 mmol/L 3.5-5.1 [facility] Protein [Mass/volume] in Ser um or PlasmaOrdered By: Mario Perez on 07-12-2023 Protein [Mass/Vol] 6.4 g/dL 6.4-8.9 [facility] Serum or plasma albumin/glob ulin mass ratioOrdered By: Mario Perez on 07-12-2023 Albumin/Globulin [Mass ratio] 1.9 {ratio} [facility] Serum or plasma anion gap de terminationOrdered By: Mario Perez on 07-12-2023 Anion gap [Moles/Vol] 8.6 mmol/L 6.0-15.0 [facility] Serum or plasma high density lipoprotein (HDL) cholesterol measurementOrdered By: Mario Perez on 07-12-2023 Cholesterol in HDL [Mass/Vol] 63 mg/dL 23-92 [facility] Comment on above: HDL CHOL ATP-III CLA SSIFICATION Cardiovascular RiskHDL > or equal to 60 mg/dL LOWHDL < 40 mg/dL HIGH Serum or plasma total choles terol/high density lipoprotein (HDL) cholesterol mass ratOrdered By: Mario Perez on 07-12-2023 Cholesterol.total/Chol esterol in HDL [Mass ratio] 3.1 {ratio} <5.0 [facility] Sodium [Moles/volume] in Ser um or PlasmaOrdered By: Mario Perez on 07-12-2023 Sodium [Moles/Vol] 139 mmol/L 136-145 [facility] Triglyceride [Mass/volume] i n Serum or PlasmaOrdered By: Mario Perez on 07-12-2023 Triglyceride [Mass/Vol] 61 mg/dL 0-149 [facility] Comment on above: TRIG ATP III CLASSIF ICATIONTRIG less than 150 mg/dL NormalTRIG 150-199 mg/dL Borderline highTRIG 200-500 mg/dL High TRIG greater than 500 mg/dL Very highStandard traceable to the Center for Disease Conrtrol and Prevention (CDC) test method. Urea nitrogen [Mass/volume] in Serum or PlasmaOrdered By: Mario Perez on 07-12-2023 Urea nitrogen [Mass/Vol] 13 mg/dL 05-11 [facility] Human papilloma virus 16+18+ 31+33+35+39+45+51+52+56+58+59+66+68 DNA [Presence] in CerOrdered By: MARISSA GARCIA on 12-15-2022 HPV 16+18+31+33+35+39+45+5 1+52+56+58+59+66+68 DNA Probe+sig amp Ql (Cvx) Negative Negative [facility] Comment on above: This nucleic acid am plification test detects fourteen high- risk HPV types (16,18,31,33,35,39,45,51,52,56,58,59,66,68)without differentiation.Performed at: - [facility] [id number] Director: Azalea Quezada MD, Phone: [phone] at: =G - [facility] [address] [id number] Director: Azalea Quezada MD, Phone: [phone] No Panel InformationOrdered By: MARISSA GARCIA on 12-15-2022 IG Pap w/Ct-Ng & HPV Rflx (Off-Site Note . [facility] Comment on above: TESTS RESULT FLAG UN ITS REF RANGE LAB Clinician Provided Cytology Information No. of containers..01 ThinPrep VialDIAGNOSIS: 01 NEGATIVE FOR INTRAEPITHELIAL LESION OR MALIGNANCY.Specimen adequacy: 01 Satisfactory for evaluation. Endocervical and/or squamous metaplastic cells (endocervical component) are present.Performed by: 01 Jose Manuel Garcia, Fitness Sales Associate ([facility]). 01Note: Note 01 The Pap smear is [...] <-Panic Low,>-Panic High,A-Abnormal,AA-Critical Abnormal -----Performed at:[address] [facility] [place] [address] Azalea Quezada MD, Albumin [Mass/volume] in Ser um or PlasmaOrdered By: Marianela Oliva on 06-26-2022 Albumin [Mass/Vol] 3.8 g/dL 3.2-5.5 [facility] Basophils Auto (Bld) [#/Vol] Ordered By: Marianela Oliva on 06-26-2022 Basophils (Bld) [#/Vol] 0.0 10*3/uL 0.0-0.2 [facility] Basophils/100 WBC Auto (Bld) Ordered By: Marianela Oliva on 06-26-2022 Basophils/100 WBC (Bld) 0.7 % . [facility] Cholesterol [Mass/volume] in Serum or PlasmaOrdered By: Marianela Oliva on 06-26-2022 Cholesterol [Mass/Vol] 177 mg/dL 140-200 [facility] Comment on above: Chol less than 200 m g/dl low riskChol 201-239 mg/dl borderline riskChol 240 mg/dl and greater high risk Cholesterol in LDL Calc [Mas s/Vol]Ordered By: Marianela Oliva on 06-26-2022 Cholesterol in LDL [Mass/Vol] 118 mg/dL 0-100 [facility] Comment on above: LDL ATP III CLASSIFI CATIONLDL less than 100 mg/dL OptimalLDL 100-129 mg/dL Near or above optimalLDL 130-159 mg/dL Borderline highLDL 160-189 mg/dL HighLDL greater than 189 mg/dL Very high Cholesterol in VLDL Calc [Ma ss/Vol]Ordered By: Marianela Oliva on 06-26-2022 Cholesterol in VLDL [Mass/Vol] 10 mg/dL [facility] Creatinine and Glomerular fi ltration rate.predicted panel (S/P/Bld)Ordered By: Marianela Oliva on 06-26-2022 Creatinine [Mass/Vol] 0.77 mg/dL 0.44-1.03 [facility] Eosinophils Auto (Bld) [#/Vo l]Ordered By: Marianela Oliva on 06-26-2022 Eosinophils (Bld) [#/Vol] 0.2 10*3/uL 0.0-0.45 [facility] Eosinophils/100 WBC Auto (Bl d)Ordered By: Marianela Oliva on 06-26-2022 Eosinophils/100 WBC (Bld) 4.1 % . [facility] Erythrocyte distribution wid th Auto (RBC) [Ratio]Ordered By: Marianela Oliva on 06-26-2022 Erythrocyte distribution width (RBC) [Ratio] 13.1 % 11.9-15.3 [facility] Estimated glomerular filtrat ion rate (GFR) non- AmericanOrdered By: Marianela Oliva on 06-26-2022 GFR/1.73 sq M.predicted among non-blacks MDRD (S/P/Bld) [Vol rate/Area] > 60 mL/Min [facility] Globulin Calc (S) [Mass/Vol] Ordered By: Marianela Oliva on 06-26-2022 Globulin (S) [Mass/Vol] 2.3 g/dL [facility] Hematocrit Auto (Bld) [Volum e fraction]Ordered By: Marianela Oliva on 06-26-2022 Hematocrit (Bld) [Volume fraction] 38.9 % 34.0-46.4 [facility] Hemoglobin [Mass/volume] in BloodOrdered By: Marianela Oliva on 06-26-2022 Hemoglobin (Bld) [Mass/Vol] 13.1 g/dL 11.8-15.4 [facility] Laboratory - Chemistry and C hemistry - challengeOrdered By: Marianela Oliva on 06-26-2022 Glucose [Mass/Vol] 98 mg/dL 70-100 [facility] Laboratory - Hematology and Cell countsOrdered By: Marianela Oliva on 06-26-2022 Nucleated RBC/100 WBC (Bld) [Ratio] 0.0 % 0-0.5 [facility] Leukocytes [#/volume] in Blo od by Automated countOrdered By: Marianela Oliva on 06-26-2022 WBC (Bld) [#/Vol] 4.3 10*3/uL 4.5-11.0 [facility] Lymphocytes Auto (Bld) [#/Vo l]Ordered By: Marianela Oliva on 06-26-2022 Lymphocytes (Bld) [#/Vol] 1.5 10*3/uL 1.00-4.8 [facility] Lymphocytes/100 WBC Auto (Bl d)Ordered By: Marianela Oliva on 06-26-2022 Lymphocytes/100 WBC (Bld) 35.2 % . [facility] MCH Auto (RBC) [Entitic mass ]Ordered By: Marianela Oliva on 06-26-2022 MCH (RBC) [Entitic mass] 27.3 pg 24.7-34.3 [facility] MCHC Auto (RBC) [Mass/Vol]Or dered By: Marianela Oliva on 06-26-2022 MCHC (RBC) [Mass/Vol] 33.7 g/dL 32.0-35.0 [facility] MCV Auto (RBC) [Entitic vol] Ordered By: Marianela Oliva on 06-26-2022 MCV (RBC) [Entitic vol] 81.1 fL 80-100 [facility] Monocyte %Ordered By: Marianela Oliva on 06-26-2022 Monocyte % 52 mg/dL 35-149 [facility] Comment on above: TRIG ATP III CLASSIF ICATIONTRIG less than 150 mg/dL NormalTRIG 150-199 mg/dL Borderline highTRIG 200-500 mg/dL High TRIG greater than 500 mg/dL Very highStandard traceable to the Center for Disease Conrtrol and Prevention (CDC) test method. Monocytes Auto (Bld) [#/Vol] Ordered By: Marianela Oliva on 06-26-2022 Monocytes (Bld) [#/Vol] 0.5 10*3/uL 0.0-0.8 [facility] Monocytes/100 WBC Auto (Bld) Ordered By: Marianela Oliva on 06-26-2022 Monocytes/100 WBC (Bld) 11.0 % . [facility] Neutrophils Auto (Bld) [#/Vo l]Ordered By: Marianela Oliva on 06-26-2022 Neutrophils (Bld) [#/Vol] 2.1 10*3/uL 1.8-7.7 [facility] Neutrophils/100 WBC Auto (Bl d)Ordered By: Marianela Oliva on 06-26-2022 Neutrophils/100 WBC (Bld) 49.0 % . [facility] No Panel InformationOrdered By: Marianela Oliva on 06-26-2022 Estimated GFR () > 60 mL/Min [facility] Comment on above: GFR estimated refere nce range: According to KDOQI guidelines, <60 ml/min/1.73m2 is sufficient to diagnose a patient with chronic kidney disease. Nicotine Metabolite Negative Cutoff=25 [facility] Comment on above: Performed at: - [address] [id number] Director: George García MD, Phone: [phone] Pharmacy Creatinine Clearance (Chem N/A [facility] Platelet mean volume Auto (B ld) [Entitic vol]Ordered By: Marianela Oliva on 06-26-2022 Platelet mean volume (Bld) [Entitic vol] 9.7 fL 6.3-10.7 [facility] Platelets Auto (Bld) [#/Vol] Ordered By: Marianela Oliva on 06-26-2022 Platelets (Bld) [#/Vol] 191 10*3/uL 150-450 [facility] Protein [Mass/volume] in Ser um or PlasmaOrdered By: Marianela Oliva on 06-26-2022 Protein [Mass/Vol] 6.1 g/dL 6.1-7.9 [facility] RBC Auto (Bld) [#/Vol]Ordere d By: Marianela Oliva on 06-26-2022 RBC (Bld) [#/Vol] 4.80 10*6/uL 3.60-5.00 [facility] Serum or plasma alanine carvalho otransferase measurement without P-5'-P (enzymatic activiOrdered By: Marianela Oliva on 06-26-2022 ALT No additional P-5'-P [Catalytic activity/Vol] 17 U/L 10-60 [facility] Serum or plasma albumin/glob ulin mass ratioOrdered By: Marianela Oliva on 06-26-2022 Albumin/Globulin [Mass ratio] 1.7 {ratio} [facility] Serum or plasma alkaline rad sphatase measurement (enzymatic activity/volume)Ordered By: Marianela Oliva on 06-26-2022 ALP [Catalytic activity/Vol] 46 U/L 32-92 [facility] Serum or plasma anion gap de terminationOrdered By: Marianela Oliva on 06-26-2022 Anion gap [Moles/Vol] 8.1 mmol/L 6.0-15.0 [facility] Serum or plasma aspartate am inotransferase measurement (enzymatic activity/volume)Ordered By: Marianela Oliva on 06-26-2022 AST [Catalytic activity/Vol] 18 U/L 10-42 [facility] Serum or plasma calcium richy urement (mass/volume)Ordered By: Marianela Oliva on 06-26-2022 Calcium [Mass/Vol] 9.0 mg/dL 8.2-10.2 [facility] Serum or plasma chloride alma surement (moles/volume)Ordered By: Marianela Oliva on 06-26-2022 Chloride [Moles/Vol] 106 mmol/L 95-114 [facility] Serum or plasma high density lipoprotein (HDL) cholesterol measurementOrdered By: Marianela Oliva on 06-26-2022 Cholesterol in HDL [Mass/Vol] 49 mg/dL 35-85 [facility] Comment on above: HDL CHOL ATP-III CLA SSIFICATION Cardiovascular RiskHDL > or equal to 60 mg/dL LOWHDL < 40 mg/dL HIGH Serum or plasma potassium me asurement (moles/volume)Ordered By: Marianela Oliva on 06-26-2022 Potassium [Moles/Vol] 4.1 mmol/L 3.5-5.1 [facility] Serum or plasma sodium measu rement (moles/volume)Ordered By: Marianela Oliva on 06-26-2022 Sodium [Moles/Vol] 137 mmol/L 136-146 [facility] Serum or plasma total biliru bin measurement (mass/volume)Ordered By: Marianela Oliva on 06-26-2022 Bilirubin [Mass/Vol] 0.6 mg/dL 0.3-1.2 [facility] Serum or plasma total carbon dioxide measurement (moles/volume)Ordered By: Marianela Oliva on 06-26-2022 CO2 [Moles/Vol] 27.0 mmol/L 22.0-30.0 [facility] Serum or plasma total choles terol/high density lipoprotein (HDL) cholesterol mass ratOrdered By: Marianela Oliva on 06-26-2022 Cholesterol.total/Chol esterol in HDL [Mass ratio] 3.6 {ratio} <5.0 [facility] Serum or plasma urea nitroge n measurement (mass/volume)Ordered By: Marianela Oliva on 06-26-2022 Urea nitrogen [Mass/Vol] 14 mg/dL 07-10 [facility] TSH DL <= 0.005 mIU/L QnOrde red By: Marianela Oliva on 06-26-2022 TSH Qn 1.33 m[IU]/L 0.45-5.33 [facility] Dipstick & Microscopicon 03- 23-2022 [facility] [employer] [employer] Other Urine 10 SGon 01-07-2022 Albumin DL <= 20 mg/L (U) [Mass/Vol] 100 mg/dL [facility] [employer] Other Albumin DL <= 20 mg/L (U) [Mass/Vol] Large [facility] [employer] Other pH (U) 6.0 [pH] [facility] [employer] Other Urine 10 SG Negative [facility] [employer] Other Urine 10 SG 1.030 [employer] [facility] [employer] Other Urine 10 SG Large [facility] [employer] Other Urine 10 SG 0.2 [employer] Other Urine 10 SG Positive [facility] [employer] Other Urine Cultureon 01-07-2022 Urine Culture >100,000 [facility] [employer] Other Urine Culture <16 Susceptible [employer] Other Urine Culture <8 Susceptible [employer] Other Urine Culture <4 Susceptible [employer] Other Urine Culture <2 Susceptible [employer] Other Urine Culture <1 Susceptible [employer] Other Urine Culture <0.5 Susceptible [employer] Other Urine Culture <32 Susceptible [employer] Other Urine Culture <2/38 Susceptible [employer] Other Cult,Urine,CCon 12-24-2018 Cult,Urine,CC Specimen Description .URINE Special Requests .CLEAN CATCH URINE Culture NO GROWTH Report Status FINAL 12/24/[address] [facility] Comment on above: Performed By: #### C PDAU #### [address] [place] [address] Chlamydia/GC DNA, Uron 12-23 Protein mass conc Negative Normal NEG [facility] Comment on above: Result Comment: NEIS SERIA [...] target. Performed By: #### C PDAU #### [address] [place] [address] Result Comment: CHLA MYDIA TRACHOMATIS DNA [...] Ag/Abon 12-23-2018 HIV Ag/Ab NONREACTIVE Normal NR [facility] Comment on above: Result Comment: No l aboratory evidence of HIV infection. If acute HIV infection is suspected, consider testing for HIV-1 RNA. Performed By: #### C PDAU #### [address] [place] [address] Hep C Abon 12-23-2018 Hep C Ab NONREACTIVE Normal NR [facility] Comment on above: Result Comment: The [...] PCR. Performed By: #### C PDAU #### [address] [place] [address] Profileon 9 T.pallidum Ab Screen NONREACTIVE Normal NR [facility] Comment on above: Result Comment: T. pallidum antibodies are not detected. There is no serological evidence of infection with T. pallidum (early primary syphilis cannot be excluded). Retest in 2-4 weeks if syphilis is clinically suspect. Performed By: #### C PDAU #### [address] [place] [address] Hep B Surf Ag NONREACTIVE Normal NR [facility] Comment on above: Performed By: #### C PDAU #### [address] [place] [address] Rubella Ab, IgG 52.3 IU/mL Normal [facility] Comment on above: Result Comment: REFERENCE RANGE: <5.0 NON-REACTIVE (non-immune) 5.0 TO 9.9 EQUIVOCAL >=10.0 REACTIVE (immune) Performed By: #### C PDAU #### [address] [place] [address] Profileon 9 Abs. Basophil <0.03 Normal 0.00-0.20 [facility] Comment on above: Performed By: #### C PDAU #### [address] [place] [address] Abs.Imm.Granulocyte 0.04 k/uL Normal 0.00-0.30 [facility] Comment on above: Performed By: #### C PDAU #### [address] [place] [address] Abs.Neutrophil (Seg) 4.44 k/uL Normal 1.50-8.10 [facility] Comment on above: Performed By: #### C PDAU #### [address] [place] [address] Basophils/100 WBC (Bld) 0 % Normal 0-2 [facility] Comment on above: Performed By: #### C PDAU #### [address] [place] [address] Eosinophils #/vol (Bld) 0.08 10*3/uL Normal 0.00-0.44 [facility] Comment on above: Performed By: #### C PDAU #### [address] [place] [address] Eosinophils/100 WBC (Bld) 1 % Normal 1-4 [facility] Comment on above: Performed By: #### C PDAU #### [address] [place] [address] Erythrocyte distribution width Ratio (RBC) 13.2 % Normal 11.8-14.4 [facility] Comment on above: Performed By: #### C PDAU #### [address] [place] [address] Hematocrit Volume Fraction (Bld) 35.3 % Low 36.3-47.1 [facility] Comment on above: Performed By: #### C PDAU #### [address] [place] [address] Hemoglobin mass conc (Bld) 11.4 g/dL Low 11.9-15.1 [facility] Comment on above: Performed By: #### C PDAU #### [address] [place] [address] Immature granulocytes #/vol (Bld) 1 % High 0 [facility] Comment on above: Performed By: #### C PDAU #### [address] [place] [address] Lymphocytes #/vol (Bld) 1.70 10*3/uL Normal 1.10-3.70 [facility] Comment on above: Performed By: #### C PDAU #### [address] [place] [address] Lymphocytes/100 WBC (Bld) 25 % Normal 24-43 [facility] Comment on above: Performed By: #### C PDAU #### [address] [place] [address] MCH Entitic mass (RBC) 26.5 pg Normal 25.2-33.[address] [facility] Comment on above: Performed By: #### C PDAU #### [address] [place] [address] MCHC mass conc (RBC) 32.3 g/dL Normal 28.4-34.8 [facility] Comment on above: Performed By: #### C PDAU #### [address] [place] [address] MCV Entitic volume (RBC) 82.1 fL Low 82.6-102.9 [facility] Comment on above: Performed By: #### C PDAU #### [address] [place], [facility] Monocytes #/vol (Bld) 0.66 10*3/uL Normal 0.10-1.20 [facility] Comment on above: Performed By: #### C PDAU #### [address] [place] [address] Monocytes/100 WBC (Bld) 10 % Normal 3-12 [facility] Comment on above: Performed By: #### C PDAU #### [address] [place] [address] Neutrophil (Seg) 63 % Normal 36-65 [facility] Comment on above: Performed By: #### C PDAU #### [address] [place] [address] NRBC Automated 0.0 per [address] [facility] Comment on above: Performed By: #### C PDAU #### [address] [place] [facility] Platelet mean volume Entitic volume (Bld) 10.8 fL Normal 8.1-13.5 [facility] Comment on above: Performed By: #### C PDAU #### [address] [place] [address] Platelets #/vol (Bld) 298 10*3/uL Normal 138-[address] [facility] Comment on above: Performed By: #### C PDAU #### [address] [place] [address] RBC #/vol (Bld) 4.30 10*6/uL Normal 3.95-5.11 [facility] Comment on above: Performed By: #### C PDAU #### [address] [place] [address] WBC #/vol (Bld) 6.9 10*3/uL Normal 3.5-11.3 [facility] Comment on above: Performed By: #### C PDAU #### [address] [place] [address] Auto Diff Performed NOT REPORTED Normal [facility] Comment on above: Performed By: #### C PDAU #### [address] [place] [address] Platelets #/vol (Bld) NOT REPORTED Normal [facility] Comment on above: Performed By: #### C PDAU #### [address] [place] [address] RBC morphology finding Nom (Bld) NOT REPORTED Normal [facility] Comment on above: Performed By: #### C PDAU #### [address] [place] [address] WBC Morphology NOT REPORTED Normal [facility] Comment on above: Performed By: #### C PDAU #### [address] [place] [address] Type + Scrnon 12-22 Type + Scrn Negative [facility] Comment on above: Performed By: #### C PDAU #### [address] [place] [address] Toxicology Scree, Urineon Amphetamine(s),Ur Negative Normal NEG [facility] Comment on above: Performed By: #### C PDAU #### [address] [place] [address] Barbiturate(s),Ur Negative Normal NEG [facility] Comment on above: Performed By: #### C PDAU #### [address] [place] [address] Benzodiazepine(s) Negative Normal [facility] Comment on above: Performed By: #### C PDAU #### [address] [place] [address] Buprenorphrine, Ur Negative Normal NEG [facility] Comment on above: Performed By: #### C PDAU #### [address] [place] [address] Cannabinoid(s),Ur Negative Normal NEG [facility] Comment on above: Performed By: #### C PDAU #### [address] [place] [address] Cocaine Metabolite Negative Normal [facility] Comment on above: Performed By: #### C PDAU #### [address] [place] [address] Methadone Ql (U) Negative Normal [facility] Comment on above: Performed By: #### C PDAU #### [address] [place] [address] Methamphetamine, Ur Negative Normal NEG [facility] Comment on above: Performed By: #### C PDAU #### [address] [place] [address] Opiate(s), Ur Negative Normal NEG [facility] Comment on above: Performed By: #### C PDAU #### [address] [place] [address] Oxycodone, Urine Negative Normal NEG [facility] Comment on above: Performed By: #### C PDAU #### [address] [place] [address] Phencyclidine, Ur Negative Normal NEG [facility] Comment on above: Performed By: #### C PDAU #### [address] [place] [address] Protein mass conc (U) Negative Normal NEG [facility] Comment on above: Performed By: #### C PDAU #### [address] [place] [address] Tricyclic antidepressants Screen Ql (U) Negative Normal NEG [facility] Comment on above: Result Comment: Drug screen results are to be used for medical purposes only. All positive results are unconfirmed. Testing for employment or legal uses should be sent to a reference laboratory for confirmation. Performed By: #### C PDAU #### [address] [place] [address] Interpretive Info NOT REPORTED Normal [facility] Comment on above: Performed By: #### C PDAU #### [address] [place] [address] MDMA, Urine NOT REPORTED Normal NEG [facility] Comment on above: Performed By: #### C PDAU #### [address] [place] [address] Coding Summary.on 12-11-2018 Coding Summary. CODING DATE: 019 [facility] STATUS: Home (Routine DC) PAYOR: Commercial Insurance [...] CphT Date Saved: 12/11/2018 09:36 am Normal [facility] 1st Trimesteron 12-09-2018 1st Trimester Exam [...] Transvaginal Ultrasound Performed Size = Dates Normal [facility] US Transvaginalon 12-09-2018 US Transvaginal Exam Date/Time: 12/09/2018 15:15 EST Reason for Exam: nausea hx of molar Report Please refer to ultrasound transabdominal first trimester report. FINAL REPORT Dictated: 12/09/2018 3:50 pm Aurelia Mullen MD Signed (Electronic Signature): 12/09/2018 3:50 pm Signed by: Aurelia Mullen MD Transcribed by: DARWIN Technologist: ADARSH Normal [facility] Progress Noteon 03-24-2018 HIM IP Note OR Felt Hat Flanging Operator Normal [facility] HCG, Quanton 03-22-2018 HCG, Quant 64 IU/L High <5 [facility] Comment on above: Result Comment: Non-preg premeno <=5 Postmeno <=8 Male <=3 If HCG results do not concur with clinical observations, additional testing to confirm result is recommended. This test is not labeled for use as a tumor marker. Performed at [address] [place] [address] ([phone] Performed By: #### C PDAU #### [address] [place] [address] HCG, Quanton 03-15-2018 HCG, Quant 613 IU/L High <5 [facility] Comment on above: Result Comment: Non-preg premeno <=5 Postmeno <=8 Male <=3 If HCG results do not concur with clinical observations, additional testing to confirm result is recommended. This test is not labeled for use as a tumor marker. Performed at [address] [place] [address] [phone] Performed By: #### C PDAU #### [address] [place] [address] OPERATIVE REPORTon 8 OPERATIVE REPORT [address] [place] [address] OPERATIVE REPORT PATIENT NAME: NORIS GOETZ : 1990 MED REC NO: [id number] ROOM: ACCOUNT NO: [id number] ADMIT DATE: 03/09/2018 PROVIDER: Chau Sorenson DATE [...] be correct. Of note, she will receive [place] 5/325 for any postoperative cramping, and I have ordered an hCG to be repeated in approximately one week. CHAU SORENSON CELINE/Janak_WOSDB_I Doc#: [id number] CC: Marianela Oliva Normal [facility] Surgical Pathologyon 018 Surgical Pathology (NOTE) [id number] [facility] CONSULTING PATHOLOGISTS [facility] ANATOMIC PATHOLOGY [address] [place] [id number] SURGICAL PATHOLOGY CONSULTATION Patient Name: NORIS GOETZ [facility] Rec: [id number] Path Number: [id number] Collected: 03/09/2018 Received: 03/10/2018 Reported: 03/11/2018 14:53 [...] grossly identified. Cystic structures are not evident. Wellness Specialist sections are submitted between sponges in A-H. tm Microscopic Description Most of the submitted tissue consists of blood clot and decidua with foci of necrosis and acute inflammation. Portions of endometrium show gestational change. There are rare immature, small avascular placental villi and a few associated syncytiotrophoblasts. Histologic changes to suggest gestational trophoblastic disease are absent. Normal [facility] Progress Noteon 03-08-2018 HIM IP Note OR Felt Hat Flanging Operator Normal [facility] Chlamydia/GC DNA, Uron 03-07 Protein mass conc Negative Normal NEG [facility] Comment on above: Result Comment: NEIS SERIA GONORRHOEAE DNA not detected by nucleic acid amplification. Performed at [facility] [address] [place] [id number] ([phone] Performed By: #### U CGP #### [address] [address] Result Comment: CHLA MYDIA TRACHOMATIS DNA not detected by nucleic acid amplification. HCG, Quanton 03-07-2018 HCG, Quant 59879 IU/L High <5 [facility] Comment on above: Result Comment: Non-preg premeno <=5 Postmeno <=8 Male <=3 If HCG results do not concur with clinical observations, additional testing to confirm result is recommended. This test is not labeled for use as a tumor marker. Performed at [address] [place], [place] [id number] [phone] Performed By: #### B HCG #### [address] [place] [address] RHIG, Transfuseon 03-07-2018 RHIG, Transfuse Unit Number [id number] /45 Blood Component Type RHIG Unit Division 00 Status of Unit TRANSFUSED Transfusion Status OK TO TRANSFUSE Performed at [address] [place] [address] [facility] Comment on above: Performed By: #### T RHIG #### [address] [place] [address] Cult,Urine,CCon 03-05-2018 Cult,Urine,CC Specimen Description .URINE Performed at [address] [place] [address] Special Requests CCMS Performed at [address] [place] [address] Culture NO SIGNIFICANT GROWTH Performed at [address] [address] Report Status FINAL 03/04/2018 [facility] Comment on above: Performed By: #### C INNA #### [address] [place] [address] HIV Ag/Abon 03-04-2018 HIV Ag/Ab NONREACTIVE Normal [facility] Comment on above: Result Comment: No l aboratory evidence of HIV infection. If acute HIV infection is suspected, consider testing for HIV-1 RNA. Performed at [address] [address] Performed By: #### H IVCMB #### [address] [address] Hep C Abon 03-04-2018 Hep C Ab NONREACTIVE Normal [facility] Comment on above: Result Comment: The [...] ordering HCV RNA by PCR. Performed at [address] [address] Performed By: #### A HCV #### [address] [address] Profileon 8 T.pallidum Ab Screen NONREACTIVE Normal [facility] Comment on above: Result Comment: T. pallidum antibodies are not detected. There is no serological evidence of infection with T. pallidum (early primary syphilis cannot be excluded). Retest in 2-4 weeks if syphilis is clinically suspect. Performed at [address] [address] Performed By: #### P RENAT #### [address] [address] Hep B Surf Ag NONREACTIVE Normal [facility] Comment on above: Performed By: #### P RENAT #### [address] [address] Rubella Ab, IgG 65.7 IU/mL [facility] Comment on above: Result Comment: REFERENCE RANGE: <5.0 NON-REACTIVE (non-immune) 5.0 TO 9.9 EQUIVOCAL >=10.0 REACTIVE (immune) Performed By: #### P RENAT #### [facility] [address] [place] [address] Toxicology Emma Avilaon Amphetamine(s),Ur Negative Normal NEG [facility] Comment on above: Performed By: #### C PDAU #### [address] [place] [address] Barbiturate(s),Ur Negative Normal NEG [facility] Comment on above: Performed By: #### C PDAU #### [address] [place] [address] Benzodiazepine(s) Negative Normal NEG [facility] Comment on above: Performed By: #### C PDAU #### [address] [place] [address] Buprenorphrine, Ur Negative Normal NEG [facility] Comment on above: Result Comment: Perf ormed at [address] [place] [address] Performed By: #### C PDAU #### [address] [place] [address] Cannabinoid(s),Ur Negative Normal [facility] Comment on above: Performed By: #### C PDAU #### [address] [place] [address] Cocaine Metabolite Negative Normal [facility] Comment on above: Performed By: #### C PDAU #### [address] [place] [address] Methadone Ql (U) Negative Normal NEG [facility] Comment on above: Performed By: #### C PDAU #### [address] [place] [address] Methamphetamine, Ur Negative Normal NEG [facility] Comment on above: Performed By: #### C PDAU #### [address] [place] [address] Opiate(s), Ur Negative Normal NEG [facility] Comment on above: Performed By: #### C PDAU #### [address] [place] [address] Oxycodone, Urine Negative Normal NEG [facility] Comment on above: Performed By: #### C PDAU #### [address] [place] [address] Phencyclidine, Ur Negative Normal NEG [facility] Comment on above: Performed By: #### C PDAU #### [address] [place] [address] Protein mass conc (U) Negative Normal NEG [facility] Comment on above: Performed By: #### C PDAU #### [address] [place] [address] Tricyclic antidepressants Screen Ql (U) Negative Normal NEG [facility] Comment on above: Result Comment: Drug screen results are to be used for medical purposes only. All positive results are unconfirmed. Testing for employment or legal uses should be sent to a reference laboratory for confirmation. Performed By: #### C PDAU #### [address] [place] [address] Profileon 8 Abs. Basophil 0.05 k/uL Normal 0.00-0.20 [facility] Comment on above: Performed By: #### P RENAT #### [facility] [address] [place] [address] Abs.Imm.Granulocyte 0.04 k/uL Normal 0.00-0.30 [facility] Comment on above: Performed By: #### P RENAT #### [facility] [address] [place] [address] Abs.Neutrophil (Seg) 5.60 k/uL Normal 1.50-8.10 [facility] Comment on above: Performed By: #### P RENAT #### [address] [address] Basophils/100 WBC (Bld) 1 % Normal 0-2 [facility] Comment on above: Performed By: #### P RENAT #### [address] [address] Eosinophils #/vol (Bld) 0.18 10*3/uL Normal 0.00-0.44 [facility] Comment on above: Performed By: #### P RENAT #### [address] [address] Eosinophils/100 WBC (Bld) 2 % Normal 1-4 [facility] Comment on above: Performed By: #### P RENAT #### [address] [address] Erythrocyte distribution width Ratio (RBC) 13.0 % Normal 11.8-14.4 [facility] Comment on above: Performed By: #### P RENAT #### [address] [address] Hematocrit Volume Fraction (Bld) 39.1 % Normal 36.3-47.1 [facility] Comment on above: Performed By: #### P RENAT #### [facility] [address] [place] [address] Hemoglobin mass conc (Bld) 12.6 g/dL Normal 11.9-15.1 [facility] Comment on above: Performed By: #### P RENAT #### [address] [address] Immature granulocytes #/vol (Bld) 1 % High 0 [facility] Comment on above: Performed By: #### P RENAT #### [facility] [employer] [address] [place] [address] Lymphocytes #/vol (Bld) 2.18 10*3/uL Normal 1.10-3.70 [facility] Comment on above: Performed By: #### P RENAT #### [address] [address] Lymphocytes/100 WBC (Bld) 25 % Normal 24-43 [facility] Comment on above: Performed By: #### P RENAT #### [address] [address] MCH Entitic mass (RBC) 26.9 pg Normal 25.2-33.[address] [facility] Comment on above: Performed By: #### P RENAT #### [address] [address] MCHC mass conc (RBC) 32.2 g/dL Normal 28.4-34.8 [facility] Comment on above: Performed By: #### P RENAT #### [address] [address] MCV Entitic volume (RBC) 83.4 fL Normal 82.6-102.9 [facility] Comment on above: Performed By: #### P RENAT #### [address] [address] Monocytes #/vol (Bld) 0.79 10*3/uL Normal 0.10-1.20 [facility] Comment on above: Performed By: #### P RENAT #### [address] [address] Monocytes/100 WBC (Bld) 9 % Normal 3-12 [facility] Comment on above: Performed By: #### P RENAT #### [address] [address] Neutrophil (Seg) 62 % Normal 36-65 [facility] Comment on above: Performed By: #### P RENAT #### [address] [address] NRBC Automated 0.0 per [address] [facility] Comment on above: Performed By: #### P RENAT #### [address] [address] Platelet mean volume Entitic volume (Bld) 11.2 fL Normal 8.1-13.5 [facility] Comment on above: Performed By: #### P RENAT #### [address] [address] Platelets #/vol (Bld) 243 10*3/uL Normal 138-[address] [facility] Comment on above: Performed By: #### P RENAT #### [address] [address] RBC #/vol (Bld) 4.69 10*6/uL Normal 3.95-5.11 [facility] Comment on above: Performed By: #### P RENAT #### [address] [address] WBC #/vol (Bld) 8.8 10*3/uL Normal 3.5-11.3 [facility] Comment on above: Performed By: #### P RENAT #### [address] [address] Auto Diff Performed NOT REPORTED Normal [facility] Comment on above: Performed By: #### P RENAT #### [address] [address] Platelets #/vol (Bld) NOT REPORTED Normal [facility] Comment on above: Performed By: #### P RENAT #### [address] [address] RBC morphology finding Nom (Bld) NOT REPORTED Normal [facility] Comment on above: Performed By: #### P RENAT #### [place] [address] [place] [address] WBC Morphology NOT REPORTED Normal [facility] Comment on above: Performed By: #### P RENAT #### [facility] [address] [place] [address] Type + Scrnon 03-03 Type + Scrn ABO/Rh(D) B NEGATIV E Antibody Screen NEGATIVE Performed at [address] [place] [address] [facility] Comment on above: Performed By: #### P RTYS #### [address] [place], [place] [id number] Progress Noteon 03-03-2018 HIM IP Note OR Felt Hat Flanging Operator Normal [facility] Toxicology Scree, Urineon Interpretive Info NOT REPORTED Normal [facility] Comment on above: Performed By: #### C PDAU #### [address] [place] [address] MDMA, Urine NOT REPORTED Normal NEG [facility] Comment on above: Performed By: #### C PDAU #### [address] [place] [address] Hep Bs Abon 01-22-2018 HBV surface Ab Ql (S) Reactive [facility] Comment on above: Result Comment: Non Reactive: Inconsistent with immunity, less than 10 mIU/mL Reactive: Consistent with immunity, greater than 9.9 mIU/mL Performed at: [facility] [address] [place], [place] [id number] PhD Sumeet Merrill Performed By: #### 2 [id number], [id number] #### [facility] [address] [place] [address] Varic IgGon 01-22-2018 VZV IgG IA Qn (S) 574 Immune >165 [facility] Comment on above: Result Comment: Nega tive <135 Equivocal 135 - 165 Positive >165 A positive result generally indicates exposure to the pathogen or administration of specific immunoglobulins, but it is not indication of active infection or stage of disease. Performed at: [facility] [id number] PhD Sumeet Merrill Performed By: #### 2 [id number], [id number] #### Chand [facility] [address] [place] [address] Progress Noteon 11-18-2017 HIM IP Note OR Felt Hat Flanging Operator Normal [facility] Vital Signs Date Time Vital Sign Value Performing Clinician Facility 07-05-2025 09:48-0400 Body mass index (BMI) [Ratio] 35.55 kg/m2 Yasmani Kaylen DO Work Phone: [facility] 07-05-2025 09:48-0400 Body weight 106.05 kg Yasmani Kaylen DO Work Phone: [facility] 07-05-2025 09:48-0400 Diastolic blood pressure 78 mm[Hg] Yasmani Kaylen DO Work Phone: [facility] 07-05-2025 09:48-0400 Systolic blood pressure 110 mm[Hg] Yasmani Kaylen DO Work Phone: [facility] 06-21-2025 09:54-0400 Body mass index (BMI) [Ratio] 35.12 kg/m2 Yasmani Kaylen DO Work Phone: [facility] 06-21-2025 09:54-0400 Body weight 104.78 kg Yasmani Kaylen DO Work Phone: [facility] 06-21-2025 09:54-0400 Diastolic blood pressure 72 mm[Hg] Yasmani Kaylen DO Work Phone: [facility] 06-21-2025 09:54-0400 Systolic blood pressure 124 mm[Hg] Yasmani Kaylen DO Work Phone: [facility] 06-12-2025 08:32-0400 Body height 170.18 cm Marianela Oliva MD Work Phone: [facility] 06-12-2025 08:32-0400 Body mass index (BMI) [Ratio] 36.1 kg/m2 Marianela Oliva MD Work Phone: [facility] 06-12-2025 08:32-0400 Body weight 104.77 kg Marianela Oliva MD Work Phone: [facility] 06-12-2025 08:32-0400 Diastolic blood pressure 81 mm[Hg] Marianela Oliva MD Work Phone: [facility] 06-12-2025 08:32-0400 Heart rate 88 /min Marianela Oliva MD Work Phone: [facility] 06-12-2025 08:32-0400 Respiratory rate 12 /min Marianela Oliva MD Work Phone: [facility] 06-12-2025 08:32-0400 SaO2% (BldA) [Mass fraction] 97 % Marianela Oliva MD Work Phone: [facility] 06-12-2025 08:32-0400 Systolic blood pressure 119 mm[Hg] Marianela Oliva MD Work Phone: [facility] 06-07-2025 10:26-0400 Body mass index (BMI) [Ratio] 35.14 kg/m2 Yasmani Kaylen DO Work Phone: [facility] 06-07-2025 10:26-0400 Body weight 104.83 kg Yasmani Kaylen DO Work Phone: [facility] 06-07-2025 10:26-0400 Diastolic blood pressure 70 mm[Hg] Yasmani Kaylen DO Work Phone: [facility] 06-07-2025 10:26-0400 Systolic blood pressure 112 mm[Hg] Yasmani Kaylen DO Work Phone: [facility] 05-22-2025 11:13-0400 Body mass index (BMI) [Ratio] 34.64 kg/m2 Yasamni Kaylen DO Work Phone: [facility] 05-22-2025 11:13-0400 Body weight 103.33 kg Yasmani Kaylen DO Work Phone: [facility] 05-22-2025 11:13-0400 Diastolic blood pressure 72 mm[Hg] Yasmani Kaylen DO Work Phone: [facility] 05-22-2025 11:13-0400 Systolic blood pressure 110 mm[Hg] Yasmani Kaylen DO Work Phone: [facility] 05-10-2025 08:31-0400 Body mass index (BMI) [Ratio] 34.25 kg/m2 Yasmani Kaylen DO Work Phone: [facility] 05-10-2025 08:31-0400 Body weight 102.17 kg Yasmani Kaylen DO Work Phone: [facility] 05-10-2025 08:31-0400 Diastolic blood pressure 78 mm[Hg] Yasmani Kaylen DO Work Phone: [facility] 05-10-2025 08:31-0400 Systolic blood pressure 124 mm[Hg] Yasmani Kaylen DO Work Phone: [facility] 04-10-2025 10:38-0400 Body mass index (BMI) [Ratio] 33.88 kg/m2 Yasmani Kaylen DO Work Phone: [facility] 04-10-2025 10:38-0400 Body weight 101.06 kg Yasmani Kaylen DO Work Phone: [facility] 04-10-2025 10:38-0400 Diastolic blood pressure 68 mm[Hg] Yasmani Kaylen DO Work Phone: [facility] 04-10-2025 10:38-0400 Systolic blood pressure 108 mm[Hg] Yasmani Kaylen DO Work Phone: [facility] 03-15-2025 10:00-0400 Body mass index (BMI) [Ratio] 33.27 kg/m2 Yasmani Kaylen DO Work Phone: [facility] 03-15-2025 10:00-0400 Body weight 99.25 kg Yasmani Kaylen DO Work Phone: [facility] 03-15-2025 10:00-0400 Diastolic blood pressure 70 mm[Hg] Yasmani Kaylen DO Work Phone: [facility] 03-15-2025 10:00-0400 Systolic blood pressure 110 mm[Hg] Yasmani Kaylen DO Work Phone: [facility] 02-15-2025 09:37-0400 Body mass index (BMI) [Ratio] 32.96 kg/m2 Yasmani Kaylen DO Work Phone: [facility] 02-15-2025 09:37-0400 Body weight 98.34 kg Yasmani Kaylen DO Work Phone: [facility] 02-15-2025 09:37-0400 Diastolic blood pressure 70 mm[Hg] Yasmani Kaylen DO Work Phone: [facility] 02-15-2025 09:37-0400 Systolic blood pressure 110 mm[Hg] Yasmani Kaylen DO Work Phone: [facility] 01-18-2025 09:45-0400 Body mass index (BMI) [Ratio] 32.1 kg/m2 Yasmani Kaylen DO Work Phone: [facility] 01-18-2025 09:45-0400 Body weight 95.77 kg Yasmani Kaylen DO Work Phone: [facility] 01-18-2025 09:45-0400 Diastolic blood pressure 80 mm[Hg] Yasmani Kaylen DO Work Phone: [facility] 01-18-2025 09:45-0400 Systolic blood pressure 100 mm[Hg] Yasmani Kaylen DO Work Phone: [facility] 12-06-2024 09:47-0500 Heart rate 75 /min Marianela Oliva MD Work Phone: [facility] 12-06-2024 09:47-0500 Respiratory rate 16 /min Marianela Oliva MD Work Phone: [facility] 12-06-2024 07:53-0500 Body height 170.18 cm Marianela Oliva MD Work Phone: [facility] 12-06-2024 07:53-0500 Body temperature 98.2 [degF] Marianela Oliva MD Work Phone: [facility] 12-06-2024 07:53-0500 Body weight 90.71 kg Marianela Oliva MD Work Phone: [facility] 12-06-2024 07:53-0500 Diastolic blood pressure 60 mm[Hg] Marianela Oliva MD Work Phone: [facility] 12-06-2024 07:53-0500 SaO2% (BldA) [Mass fraction] 99 % Marianela Oliva MD Work Phone: [facility] 12-06-2024 07:53-0500 Systolic blood pressure 121 mm[Hg] Marianela Oliva MD Work Phone: [facility] 08-15-2024 09:05-0400 Body height 172.72 cm MD Marianela Oliva Work Phone: [facility] 08-15-2024 09:05-0400 Body mass index (BMI) [Ratio] 32.1 kg/m2 MD Marianela Oliva Work Phone: [facility] 08-15-2024 09:05-0400 Body weight 95.7 kg MD Marianela Oliva Work Phone: [facility] 08-15-2024 09:05-0400 Diastolic blood pressure 85 mm[Hg] MD Marianela Oliva Work Phone: [facility] 08-15-2024 09:05-0400 Heart rate 80 /min MD Marianela Oliva Work Phone: [facility] 08-15-2024 09:05-0400 Systolic blood pressure 125 mm[Hg] MD Marianela Oliva Work Phone: [facility] 08-11-2024 09:14-0400 Body height 172.72 cm MD Marianela Oliva Work Phone: [facility] 08-11-2024 09:14-0400 Body mass index (BMI) [Ratio] 31.9 kg/m2 MD Marianela Oliva Work Phone: [facility] 08-11-2024 09:14-0400 Body temperature 97.8 [degF] MD Marianela Oliva Work Phone: [facility] 08-11-2024 09:14-0400 Body weight 95.25 kg MD Marianela Oliva Work Phone: [facility] 08-11-2024 09:14-0400 Diastolic blood pressure 72 mm[Hg] MD Marianela Oliva Work Phone: [facility] 08-11-2024 09:14-0400 Heart rate 99 /min MD Marianela Oliva Work Phone: [facility] 08-11-2024 09:14-0400 Respiratory rate 18 /min MD Marianela Oliva Work Phone: [facility] 08-11-2024 09:14-0400 SaO2% (BldA) [Mass fraction] 96 % MD Marianela Oliva Work Phone: [facility] 08-11-2024 09:14-0400 Systolic blood pressure 106 mm[Hg] MD Marianela Oliva Work Phone: [facility] 05-18-2024 10:41-0400 Body height 173.99 cm MD Marianela Oliva Work Phone: [facility] 05-18-2024 10:41-0400 Body mass index (BMI) [Ratio] 32.2 kg/m2 MD Marianela Oliva Work Phone: [facility] 05-18-2024 10:41-0400 Body weight 97.52 kg MD Marianela Oliva Work Phone: [facility] 05-18-2024 10:41-0400 Diastolic blood pressure 82 mm[Hg] MD Marianela Oliva Work Phone: [facility] 05-18-2024 10:41-0400 Heart rate 72 /min MD Marianela Oliva Work Phone: [facility] 05-18-2024 10:41-0400 Systolic blood pressure 117 mm[Hg] MD Marianela Oliva Work Phone: [facility] 01-07-2022 12:45-0400 Body height 170.18 cm Regina Missler Other [facility] [facility] [facility] Other 01-07-2022 12:45-0400 Body temperature 98.9 [degF] Regina Missler Other [facility] [facility] Other 01-07-2022 12:45-0400 Diastolic blood pressure 81 mm[Hg] Regina Missler Other [facility] [facility] Other 01-07-2022 12:45-0400 Respiratory rate 18 /min Regina Missler Other [facility] [facility] Other 01-07-2022 12:45-0400 SaO2% (BldA) [Mass fraction] Regina Missler Other [facility] [facility] [facility] Other 01-07-2022 12:45-0400 Systolic blood pressure 121 mm[Hg] Regina Missler Other [employer] Other Encounters Encounter Date Encounter Type Care Provider Facility Start: 07-05-2025 End: 07-05-2025 Bamboo flowsheet Yasmani Kaylen DO Work Phone: [facility] Start: 07-05-2025 End: 07-05-2025 Bamboo flowsheet Yasmani Kaylen DO Work Phone: [facility] Start: 07-05-2025 End: 07-05-2025 flow sheet Yasmani Kaylen DO Work Phone: [facility] Comment on above: 36 weeks gestation o f ([facility]); Third trimester ([facility] Multigravida of advanced maternal age in third trimester ([facility]); History of molar ; Antepartum multigravida of advanced maternal age ([facility]) Start: 07-05-2025 End: 07-05-2025 ambulatory YASMANI KAYLEN Not Available Start: 07-04-2025 End: 07-04-2025 Clinisync Result Encounter [...] Comment on above: Third trimester preg lisa ([facility]); 34 weeks gestation of ([facility]); Multigravida of advanced maternal age in third trimester ([facility]) Start: 06-21-2025 End: 06-21-2025 ambulatory YASMANI KAYLEN Not Available Start: 06-19-2025 End: 06-19-2025 Clinisync Result Encounter Yasmani Kaylen DO Work Phone: [facility] Unsolicited Start: 06-19-2025 End: 06-19-2025 Clinisync Result Encounter Yasmani Kaylen DO Work Phone: [facility] Unsolicited Start: 06-12-2025 End: 06-12-2025 ambulatory Marianela Oliva MD Work Phone: [facility] Work Phone: Start: 06-12-2025 End: 06-12-2025 Patient encounter procedure Marianela Oliva MD -[facility] Work Phone: Start: 06-07-2025 End: 06-07-2025 Bamboo flowsheet Yasmani Kaylen DO Work Phone: [facility] Start: 06-07-2025 End: 06-07-2025 Bamboo flowsheet Yasmani Kaylen DO Work Phone: [facility] Start: 06-07-2025 End: 06-07-2025 flow sheet Yasmani Kaylen DO Work Phone: [facility] Comment on above: Third trimester preg lisa ([facility]); 32 weeks gestation of ([facility]); Multigravida of advanced maternal age in third trimester ([facility]) Start: 06-07-2025 End: 06-07-2025 ambulatory YASMANI KAYLEN Not Available Start: 05-22-2025 End: 05-22-2025 flow sheet Yasmani Kaylen DO Work Phone: [facility] Comment on above: 30 weeks gestation o f ([facility]); Third trimester ([facility]); Antepartum multigravida of advanced maternal age ([facility]); Gestational diabetes mellitus (GDM), antepartum, gestational diabetes method of control unspecified ([facility]) Start: 05-22-2025 End: 05-22-2025 ambulatory YASMANI KAYLEN Not Available Start: 05-10-2025 End: 05-10-2025 Bamboo flowsheet Yasmani Kaylen DO Work Phone: [facility] Start: 05-10-2025 End: 05-10-2025 Bamboo flowsheet Yasmani Kaylen DO Work Phone: [facility] Start: 05-10-2025 End: 05-10-2025 flow sheet Yasmani Kaylen DO Work Phone: [facility] Comment on above: size consisten t with dates, antepartum ([facility]) (Primary Dx); Third trimester ([facility]); 28 weeks gestation of ([facility]); Antepartum multigravida of advanced maternal age ([facility]) Start: 05-10-2025 End: 05-10-2025 ambulatory YASMANI KAYLEN Not Available Start: 04-10-2025 End: 04-10-2025 Bamboo flowsheet Yasmani Kaylen DO Work Phone: [facility] Start: 04-10-2025 End: 04-10-2025 Bamboo flowsheet Yasmani Kaylen DO Work Phone: [facility] Start: 04-10-2025 End: 04-10-2025 flow sheet Yasmani Kaylen DO Work Phone: [facility] Comment on above: Second trimester pre gnancy ([facility]); 24 weeks gestation of ([facility]); Diabetes mellitus screening Start: 04-10-2025 End: 04-10-2025 ambulatory YASMANI KAYLEN Not Available Start: 04-02-2025 End: 04-02-2025 Departed Referred Mario Erickson Start: 04-02-2025 End: 04-02-2025 ambulatory Mario Perez - [facility] Facility:[facility] Start: 03-15-2025 End: 03-15-2025 flow sheet [...] encounter procedure Marianela Oliva MD Work Phone: [facility] Start: 03-14-2025 End: 03-14-2025 ambulatory Marianela Oliva MD Work Phone: [facility] Work Phone: Start: 02-15-2025 [...] / Non-visit Marianela Oliva MD Work Phone: [facility] Work Phone: Start: 02-15-2025 End: 02-15-2025 Patient encounter procedure Yasmani Kaylen DO Work Phone: [facility] Work Phone: Start: 02-15-2025 End: 02-15-2025 Periodic preventive med est patient 18-39 yrs Yasmani Kaylen DO Work Phone: [facility] Comment on above: Well woman exam with routine gynecological exam; Vaginal discharge; Exposure to STD; 16 weeks gestation of ; Second trimester ; Screening, , for anatomic survey; Sterilization consult; Glucose found in urine on examination Start: 02-15-2025 End: 02-15-2025 ambulatory YASMANI KAYLEN Not Available Start: 01-18-2025 End: 01-18-2025 Bamboo flowsheet Yasmani Kaylen DO Work Phone: [facility] Start: 01-18-2025 End: 01-18-2025 Bamboo flowsheet Yasmani Kaylen DO Work Phone: [facility] Start: 01-18-2025 End: 01-18-2025 flow sheet Yasmani Kaylen DO Work Phone: [facility] Comment on above: First trimester preg lisa; 12 weeks gestation of ; Antepartum multigravida of advanced maternal age Start: 01-18-2025 End: 01-18-2025 ambulatory YASMANI KAYLEN Not Available Start: 12-27-2024 End: 12-27-2024 Patient encounter procedure Marianela Oliva MD Work Phone: [facility] Start: 12-27-2024 End: 12-27-2024 ambulatory Marianela Oliva MD Work Phone: [facility] Work Phone: Start: 12-21-2024 End: 12-21-2024 ambulatory YASMANI KAYLEN Not Available Start: 12-07-2024 Non-patient / Non-visit Marianela Oliva MD Work Phone: [facility] Work Phone: Start: 12-06-2024 End: 12-06-2024 Emergency department patient visit Marianela Oliva MD Work Phone: [facility]-Emergency [facility] Work Phone: Start: 12-05-2024 End: 12-05-2024 Telephone encounter Yasmani Abdullahi DO Work Phone: [facility] Start: 08-15-2024 Patient encounter status Pooja Oliva MD Work Phone: [facility] Start: 08-15-2024 End: 08-15-2024 ambulatory MD Marianela Oliva Work Phone: [facility] Work Phone: Start: 08-15-2024 End: 08-15-2024 Patient encounter procedure MD Marianela Oliva Work Phone: [facility] Work Phone: Start: 08-11-2024 End: 08-11-2024 ambulatory MD Marianela Oliva Work Phone: [facility] Work Phone: Start: 08-11-2024 End: 08-11-2024 Patient encounter procedure MD aMrianela Oliva Work Phone: [facility] Work Phone: Start: 08-01-2024 End: 08-01-2024 ambulatory MD Marianela Oliva Work Phone: [facility] Work Phone: Start: 08-01-2024 End: 08-01-2024 Departed Referred MD Marianela Oliva Work Phone: [facility] [place] Work Phone: Start: 05-23-2024 End: 05-23-2024 Patient encounter procedure MD Marianela Oliva Work Phone: [facility] [place] Work Phone: Start: 05-23-2024 End: 05-23-2024 ambulatory MD Marianela Oliva Work Phone: [facility] Work Phone: Start: 05-18-2024 End: 05-18-2024 ambulatory MD Marianela Oliva Work Phone: [facility] Work Phone: Start: 05-18-2024 End: 05-18-2024 Patient encounter procedure MD Marianela Oliva Work Phone: [facility] Work Phone: Start: 05-17-2024 End: 05-17-2024 Departed Referred MD Marianela Oliva Work Phone: [facility] Start: 05-17-2024 End: 05-17-2024 ambulatory MD Marianela Oliva Work Phone: [facility] Work Phone: Start: 07-12-2023 End: 07-12-2023 ambulatory MD Marianela Oliva Work Phone: [facility] Work Phone: Start: 07-12-2023 End: 07-12-2023 Departed Referred MD Marianela Oliva Work Phone: [facility]-Employee Benefit Screening Start: 02-23-2023 End: 02-23-2023 ambulatory MD Marianela Oliva Work Phone: [facility] Work Phone: Start: 02-23-2023 End: 02-23-2023 Patient encounter procedure MD Marianela Oliva Work Phone: [facility] Work Phone: Start: 02-04-2023 End: 02-04-2023 ambulatory Marianela Oliva Other [employer] Other Start: 04-20-2023 Office outpatient vi sit 15 minutes Marianela Oliva [facility] Start: 02-04-2023 Telephone encounter Marianela Oliva [facility] Start: 01-29-2023 End: 01-29-2023 ambulatory Marianela Oliva Other [employer] Other Start: 01-29-2023 Telephone encounter Marianela Oliva [facility] Start: 12-15-2022 End: 12-15-2022 Departed Referred MD Marianela Oliva Work Phone: [facility] [place] Work Phone: Start: 12-04-2022 End: 12-04-2022 ambulatory Marianela Oliva Other [employer] Other Start: 12-04-2022 Telephone encounter Marianela Oliva [facility] Start: 11-10-2022 End: 11-10-2022 ambulatory MD Marianela Oliva Work Phone: [facility] Work Phone: Start: 11-10-2022 End: 11-10-2022 Departed Referred MD Marianela Oliva Work Phone: [facility] [place] Work Phone: Start: 08-07-2022 End: 08-07-2022 ambulatory Regina Flaquito Other [employer] Other Start: 08-07-2022 Telephone encounter Regina Huddleston [facility] Start: 06-26-2022 End: 06-26-2022 ambulatory MD Marianela Oliva Work Phone: [facility] Work Phone: Start: 06-26-2022 End: 06-26-2022 Departed Referred MD Marianela Oliva Work Phone: [facility]-Employee Benefit Screening Start: 01-07-2022 End: 01-07-2022 ambulatory Regina Huddleston Other [employer] Other Start: 01-07-2022 Patient encounter procedure Regina Huddleston [facility] Start: 12-22-2018 End: 12-23-2018 Patient encounter procedure CHAU W [facility] Start: 12-09-2018 End: 12-10-2018 Patient encounter procedure CHAU SORENSON Facility:[facility] Start: 06-14-2018 Patient encounter MARIANELA Gen OLIVA Fac ility:[facility] Start: 03-22-2018 End: 03-23-2018 Patient encounter procedure [facility] Start: 03-15-2018 End: 03-16-2018 Patient encounter procedure [facility] Start: 03-09-2018 End: 03-09-2018 Patient encounter procedure [facility] Start: 03-07-2018 End: 03-08-2018 Patient encounter procedure [facility] Start: 03-03-2018 End: 03-04-2018 Patient encounter procedure [facility] Start: 03-03-2018 End: 03-03-2018 Patient encounter procedure [facility] Start: 01-20-2018 End: 01-21-2018 Patient encounter procedure Macario Castrejoneusebiojacquelin Facility:[facility] Procedures Date Procedure Procedure Detail Performing Clinician [...] Phone: Start: 12-27-2024 Antibody screen Mario Khalil [facility] Comment on above: Order Comment: NONFA STING.JKW Result Comment: PERF ORMED BY: [facility] [place] [address] PATHOLOGIST REHABILITATION THERAPY AIDE LEÓN GARCIA M.D. Start: 12-06-2024 Diagnostic ultrasoun [...] EY BRITTNI Start: 03-09-2018 DISCHARGE PATIENT LORELEI Y BRITTNI Start: 03-09-2018 ASSESS CHAU HED GES Start: 03-09-2018 BEDREST CAHU HED GES Start: 03-09-2018 Continuous pulse oximetry HCAU SORENSON Start: 03-09-2018 INITIATE OXYGEN THER APY PROTOCOL CHAU SORENSON Start: 03-09-2018 NEURO/VASCULAR CHECKS W DENG SORENSON Start: 03-09-2018 DIET NPO, NOW CHAU HE DGES Start: 03-09-2018 MEASURE WEIGHT CHAU H EDGES Start: 03-09-2018 NOTIFY PHYSICIAN (SPECIFY) CHAU [...] 03-03-2018 C.TRACHOMATIS N.GONO RRHOEAE DNA, URINE CHAU SORNESON Start: 03-03-2018 HEPATITIS C ANTIBODY WE ARTIS [...] procedure 07/12/2025 9:10 AM EDT Routine [facility] [address] [place] [id number] Lanie Mendez, GROCERY CASHIER [address] [place] [phone] [facility] Start: 07-09-2025 End: 07-09-2025 Patient encounter procedure 07/09/2025 4:00 PM EDT Routine [facility] [address] [place] [id number] Yasmani Abdullahi DO [address] [place] [address] [facility] Start: 07-05-2025 End: 07-05-2026 CULTURE, GROUP B STREP WITH SUSCEPTIBLITY CULTURE, GROUP B STREP WITH SUSCEPTIBLITY Lab Routine Third trimester ([facility]) Expected: 07/05/2025, Expires: 07/05/2026 [facility] Work Phone: Comment on above: Expected: 07/05/2025 , Expires: 07/05/2026 Start: 07-05-2025 End: 07-05-2025 Patient encounter procedure [facility] Comment on above: Arrived Start: 06-21-2025 End: 06-21-2025 Patient encounter procedure 06/21/2025 9:40 AM EDT Routine [facility] [address] [place] [id number] Yasmani Abdullahi DO [address] [place] [address] [facility] Start: 06-21-2025 End: 06-21-2025 Professional / ancillary services management 06/21/2025 9:00 AM EDT Ancillary Procedure [facility] [address] [place] [phone] [facility] Start: 06-07-2025 End: 12-08-2025 US biophysical profile w non stress test US biophysical profile w non stress test Imaging Routine Multigravida of advanced maternal age in third trimester ([facility]) Expected: 06/07/2025 (Approximate), Expires: 12/08/2025 [facility] Work Phone: Comment on above: Expected: 06/07/2025 (Approximate), Expires: 12/08/2025 Start: 06-07-2025 End: 06-07-2025 Patient encounter procedure [facility] Comment on above: Arrived Start: 05-22-2025 End: 05-22-2025 Patient encounter procedure 05/22/2025 11:00 AM EDT Routine [facility] [address] [facility] [place] [phone] Yasmani Abdullahi, DO [address] [place], [place] [id number] [facility] Start: 05-22-2025 End: 05-22-2025 Professional / ancillary services management 05/22/2025 10:30 AM EDT Ancillary Procedure [facility] [address] [facility] [place] [id number] [facility] Start: 05-10-2025 End: 09-10-2025 US for US OB follow up transabdominal approach Imaging Routine Antepartum multigravida of advanced maternal age ([facility]) Expected: 05/10/2025, Expires: 09/10/2025 [facility] Work [...] AM EDT Routine [facility] [address] [facility] [place] [address] Yasmani Abdullahi DO [address] [place], [place] [id number] [facility] Start: 03-15-2025 End: 03-15-2025 Professional / ancillary services management 03/15/2025 8:30 AM EDT Ancillary Procedure [facility] [address] [facility] [address] [place] [phone] [facility] Start: 02-15-2025 End: 03-18-2025 [...] AM EDT Routine [facility] [address] [place] [phone] Yasmani Abdullahi DO [address] [place] [address] Arrived [facility] Comment on above: Arrived Start: 12-27-2024 Bacteria identified in Urine by Culture Urine Culture [facility] Start: 12-27-2024 Rubella IgG measurement [facility] Start: 12-27-2024 Urine culture [facility] Start: 12-27-2024 [facility] Start: 12-21-2024 End: 12-21-2024 ambulatory 12/21/2024 1:30 PM EST Initial [facility] [address] [place] [phone] [facility] Start: 12-21-2024 End: 12-21-2024 Professional / ancillary services management 12/21/2024 1:00 PM EST Ancillary Procedure [facility] [address] [place] [address] [facility] Start: 12-06-2024 Diagnostic ultrasoun d of gravid uterus [facility] Start: 07-12-2023 [facility] CHLAMYDIA TRACHOMATI S (GENITO/STI) CHLAMYDIA TRACHOMATIS (GENITO/STI) Lab Routine Exposure to STD 16 weeks gestation of Second trimester Ordered: 02/15/2025 [facility] Comment on above: Ordered: 02/15/2025 Cytology Cervical or vaginal smear or scraping study Pap Smear Pathology and Cytology Routine Well woman exam with routine gynecological exam Ordered: 02/15/2025 [facility] Comment on above: Ordered: 02/15/2025 Hepatitis B virus surface Ag [Presence] in Serum or Plasma by Immunoassay [facility] Hepatitis C virus Ig G Ab [Presence] in Serum or Plasma by Immunoassay [facility] HIV 1+2 Ab+HIV1 p24 Ag [Presence] in Serum or Plasma by Immunoassay [facility] Human papilloma viru s DNA [Presence] in Unspecified specimen by Probe with amplification HPV DNA probe, amplified Microbiology Routine Well woman exam with routine gynecological exam Ordered: 02/15/2025 [facility] Comment on above: Ordered: 02/15/2025 Measurement of gluco se 1 hour after glucose challenge for glucose tolerance test GTT, 1 hour Lab Routine Antepartum multigravida of advanced maternal age Ordered: 01/18/2025 [facility] Work Phone: Comment on above: Ordered: 01/18/2025 Neisseria gonorrhoea e DNA [Presence] in Unspecified specimen by CORBY with probe detection Neisseria gonorrhea DNA probe, direct Lab Routine Exposure to STD 16 weeks gestation of Second trimester Ordered: 02/15/2025 [facility] Comment on above: Ordered: 02/15/2025 Patient Education Stomach Pain i n Early [facility] Work Phone: Patient referral [facility] Work Phone: Reagin Ab [Presence] in Serum by RPR [facility] SURESWAB(R) ADVANCED VAGINITIS PLUS, TMA SURESWAB(R) ADVANCED VAGINITIS PLUS, TMA Pathology and Cytology Routine Vaginal discharge Exposure to STD 16 weeks gestation of Second trimester Ordered: 02/15/2025 [facility] Work Phone: Comment on above: Ordered: 02/15/2025 [facility] Immunizations Immunization Date Immunization Notes Care Provider Fa cility 06-23-2019 tetanus toxoid, redu christen diphtheria toxoid, and acellular pertussis vaccine, adsorbed MD Marianela Oliva Work Phone: [facility] Payers Date Payer Category Payer Unknown [id number] 2024 Self-pay [id number] 2018 Unknown [id number] 2018 Private Health Insurance 2014 Unknown [id number] 1989 Unknown [id number] 2.16.84 0.1.563118.3.579.2.727 1989 Unknown [id number] 2.16.8 40.1.439765.3.579.2.173 1989 Unknown [id number] 2.16.8 40.1.380981.3.579.2.173 1989 Unknown [id number] 2.16.8 40.1.058682.3.579.2.173 1989 Unknown [id number] 2.16.8 40.1.991953.3.579.2.173 1989 Unknown [id number] 2.16.8 40.1.658763.3.579.2.173 1989 Unknown [id number] 2.16.8 40.1.175677.3.579.2.173 1989 Unknown [id number] 2.16.8 40.1.325444.3.579.2.173 1989 Unknown [id number] 2.16.8 40.1.293000.3.579.2.173 1989 Unknown [id number] 2.16.8 40.1.502135.3.579.2.1259 1989 Unknown [id number] 2.16.8 40.1.833917.3.579.2.1258 1989 Unknown [id number] 2.16.8 40.1.662712.3.579.2.9 1989 Unknown [id number] 2.16.8 40.1.351422.3.579.2.9 1989 Unknown [id number] 2.16.8 40.1.045541.3.579.2.9 1989 Unknown [id number] 2.16.8 40.1.211269.3.579.2.9 1989 Unknown [id number] 2.16.8 40.1.042673.3.579.2.9 1989 Unknown [id number] 2.16.8 40.1.080147.3.579.2.9 1989 Unknown [id number] 2.16.84 0.1.051038.3.579.2.9 1989 Unknown [id number] 2.16.84 0.1.375989.3.579.2.9 1989 Unknown [id number] 2.16.84 0.1.112179.3.579.2.9 1989 Unknown [id number] 2.16.84 0.1.695315.3.579.2.1258 1989 Unknown [id number] 2.16.84 0.1.795149.3.579.2.1259 1989 Unknown [id number] 2.16.84 0.1.458652.3.579.2.1259 1959 Private Health Insurance EB [id number] Unknown [id number] 2.16.8 40.1.378748.3.579.2.531 Unknown [id number] 2.16.8 40.1.290756.3.579.2.531 Unknown [id number] 2.16.8 40.1.339198.3.579.2.531 Unknown [id number] 2.16.8 40.1.362384.3.579.2.531 Unknown [id number] 2.16.8 40.1.459853.3.579.2.531 Unknown [id number] 2.16.8 40.1.473275.3.579.2.531 Unknown [id number] 2.16.8 40.1.515246.3.579.2.531 Unknown [id number] 2.16.8 40.1.247559.3.579.2.531 Social History Date Type Detail Facility Unknown if ever smoked [facility] [employer] Other Start: 01-27-2024 End: 12-21-2024 Sex Assigned At [facility] [employer] Other Start: 06-22-2019 End: 01-26-2024 Tobacco smoking status ORIS Never smoked tobacco (finding) [facility] Start: 1990 Sex Assigned At Female [facility] Start: 01-26-2024 Tobacco use and exposure Smokeless tobacco non-user [facility] Start: 01-27-2024 End: 07-05-2025 Alcoholic beverage intake Current drinker of alcohol (finding) [facility] Start: 01-27-2024 End: 12-21-2024 History of Social function [facility] Start: 01-27-2024 Gender identity Identifies as female gender (finding) [facility] Start: 01-27-2024 Sexual orientation Heterosexual (finding) [facility] Start: 11-04-2024 [facility] Start: 12-06-2024 End: 03-15-2025 Sex Female (finding) [facility] Medical Equipment Procedure Code Equipment Code Equipment Origin al Text Equipment Identifier Dates 1 strip by In Vi tro route Daily Use in the morning prior to breakfast, 1 hour after each meal for a total of 4times daily. [id number] Start: 02-15-2025 End: 03-17-2025 1 each by In Vit ro route Daily Use to check FSBS four times daily [id number] Start: 02-15-2025 End: 03-17-2025 Use as instructed [id number] Start: 04-09-2025 End: 04-09-2026 1 each by In Vit ro route Daily [id number] Start: 04-09-2025 End: 05-09-2025 Clinical Notes 12-16-2021 to 07-05-2025 Eugenia Bridges, [facility] - 07/05/2025 9:50 AM EDMegan Bridges, [facility] - 06/21/2025 9:40 AM Gracie Bridges, [facility] - 06/07/2025 9:50 AM Niki Mckeon, [facility] - 05/22/2025 11:00 AM EDT Note Date [...] Past Medical History: Diagnosis Date Anxiety Melanoma ([facility]) 2021 on chest Social History [...] nursing note reviewed. Exam conducted with a manufacturing machine operator present. Vitals: Estimated body mass index is 35.55 kg/m as calculated from the following: Height as of 12/15/22: 5' 8 . Weight as of this encounter: 233 lb 12.8 oz. BP: 110/78 Patient's last menstrual period was 10/21/2024. ASSESSMENT & PLAN ICD-10-CM 1. 36 weeks gestation of ([facility]) Z3A.36 POCT urinalysis dipstick manually resulted 2. Third trimester ([facility]) Z34.93 POCT urinalysis dipstick manually resulted CULTURE, GROUP B STREP WITH SUSCEPTIBLITY CULTURE, GROUP B STREP WITH SUSCEPTIBLITY 3. Multigravida of advanced maternal age in third trimester ([facility]) O09.523 4. History of molar Z87.59 5. Antepartum multigravida of advanced maternal age ([facility]) O09.529 Patient is doing well but [...] Yasmani Abdullahi DO documented in this encounter [facility] 06-21-2025 History of Presen t [...] Past Medical History: Diagnosis Date Anxiety Melanoma ([facility]) 2021 HISTORY PAST MEDICAL HISTORY SOCIAL HISTORY Past Medical History: Diagnosis Date Anxiety Melanoma ([facility]) 2021 on chest Social History [...] nursing note reviewed. Exam conducted with a manufacturing machine operator present. Vitals: Estimated body mass index is 35.12 kg/m as calculated from the following: Height as of 12/15/22: 5' 8 . Weight as of this encounter: 231 lb. BP: 124/72 Patient's last menstrual period was 10/21/2024. ASSESSMENT & PLAN ICD-10-CM 1. Third trimester ([facility]) Z34.93 POCT urinalysis dipstick manually resulted 2. 34 weeks gestation of ([facility]) Z3A.34 3. Multigravida of advanced maternal age in third trimester ([facility]) O09.523 Patient presents today for a routine [...] by Eugenia Bridges LPN on behalf of: DO Gerardo Hernandezally signed by Eugenia Bridges LPN at 06/21/2025 10:32 AM EDT documented in this encounter [facility] 06-07-2025 History of Presen t [...] nursing note reviewed. Exam conducted with a manufacturing machine operator present. Vitals: Estimated body mass index is 35.14 kg/m as calculated from the following: Height as of 12/15/22: 5' 8 . Weight as of this encounter: 231 lb 1.9 oz. BP: 112/70 Patient's last menstrual period was 10/21/2024. ASSESSMENT & PLAN ICD-10-CM 1. Third trimester ([facility]) Z34.93 POCT urinalysis dipstick manually resulted 2. 32 weeks gestation of ([facility]) Z3A.32 POCT urinalysis dipstick manually resulted 3. Multigravida of advanced maternal age in third trimester ([facility]) O09.523 US biophysical profile w non stress test Patient presents today for a routine obstetrics appointment. Patient is currently 32w5d with a Estimated Date of Delivery: 07/28/25. Patient given orders for NST/BPP's to be started until delivery. Orders will also be sent to [facility] and [facility]. Patient to return to clinic in 2 weeks. Documented by Eugenia Bridges LPN on behalf of: Yasmani Abdullahi DO documented in this encounter [facility] 05-22-2025 History of Presen t [...] nursing note reviewed. Exam conducted with a manufacturing machine operator present. Vitals: Estimated body mass index is 34.64 kg/m as calculated from the following: Height as of 12/15/22: 5' 8 . Weight as of this encounter: 227 lb 12.8 oz. BP: 110/72 Patient's last menstrual period was 10/21/2024. ASSESSMENT & PLAN ICD-10-CM 1. 30 weeks gestation of ([facility]) Z3A.30 POCT urinalysis dipstick manually resulted 2. Third trimester ([facility]) Z34.93 POCT urinalysis dipstick manually resulted 3. Antepartum multigravida of advanced maternal age ([facility]) O09.529 POCT urinalysis dipstick manually resulted 4. Gestational diabetes mellitus (GDM), antepartum, gestational diabetes method of control unspecified ([facility]) O24.419 POCT urinalysis dipstick manually [...] Yasmani Abdullahi DO documented in this encounter [facility] 05-10-2025 History of Presen t [...] Past Medical History: Diagnosis Date Anxiety Melanoma ([facility]) 2021 HISTORY PAST MEDICAL HISTORY SOCIAL HISTORY Past Medical History: Diagnosis Date Anxiety Melanoma ([facility]) 2021 on chest Social History Tobacco Use Smoking status: Never Smokeless tobacco: Never Substance Use Topics Alcohol use: Yes Drug use: Never FAMILY HISTORY No family history on file. SURGICAL HISTORY Past Surgical History: Procedure Laterality Date CYST REMOVAL 2023 VAGINAL DELIVERY x4 REVIEW OF SYSTEMS Review [...] nursing note reviewed. Exam conducted with a manufacturing machine operator present. Vitals: Estimated body mass index is 34.25 kg/m as calculated from the following: Height as of 12/15/22: 5' 8 . Weight as of this encounter: 225 lb 4 oz. BP: 124/78 Patient's last menstrual period was 10/21/2024. ASSESSMENT & PLAN ICD-10-CM 1. size consistent with dates, antepartum ([facility]) Z34.90 US OB follow up transabdominal approach 2. Third trimester ([facility]) Z34.93 POCT urinalysis dipstick manually resulted 3. 28 weeks gestation of ([facility]) Z3A.28 Patient presents today for a routine obstetrics appointment. Patient is currently 28w5d with a Estimated Date of Delivery: 07/28/25. Patient to return to clinic in 2 weeks for return OB and Growth US. Patient is going to [facility] after this appointment to receive her Rhogam injection. Patient will call office with any concerns or questions in the meantime. Documented by Eugenia Bridges LPN on behalf of: Yasmani Abdullahi DO documented in this encounter [facility] 04-10-2025 History of Presen t [...] nursing note reviewed. Exam conducted with a manufacturing machine operator present. Vitals: Estimated body mass index is 33.88 kg/m as calculated from the following: Height as of 12/15/22: 5' 8 . Weight as of this encounter: 222 lb 12.8 oz. BP: 108/68 Patient's last menstrual period was 10/21/2024. ASSESSMENT & PLAN ICD-10-CM 1. Second trimester ([facility]) Z34.92 POCT urinalysis dipstick manually resulted 2. 24 weeks gestation of ([facility]) Z3A.24 POCT urinalysis dipstick manually resulted 3. [...] Yasmani Abdullahi DO documented in this encounter [facility] 03-15-2025 History of Presen t [...] Past Medical History: Diagnosis Date Anxiety Melanoma ([facility]) 2021 HISTORY PAST MEDICAL HISTORY SOCIAL HISTORY Past Medical History: Diagnosis Date Anxiety Melanoma ([facility]) 2021 on chest Social History [...] nursing note reviewed. Exam conducted with a manufacturing machine operator present. Vitals: Estimated body mass index is [...] CBC drawn yesterday. Patient was provided with garage manager email to send FSBS results & more forms we given to patient to track sugars. Patient to RTC in 4 weeks for routine OB care. Documented by Eugenia Bridges LPN on behalf of: Yasmani Abdullahi DO documented in this encounter [facility] 02-15-2025 History of Presen t [...] nursing note reviewed. Exam conducted with a manufacturing machine operator present. Vitals: Estimated body mass index is [...] Yasmani Abdullahi DO documented in this encounter [facility] 01-18-2025 History of Presen t [...] nursing note reviewed. Exam conducted with a manufacturing machine operator present. Vitals: Estimated body mass index is [...] or undercooked meat, and stay away from [facility]. 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 She called with complaints of kidney pain and left abd pain. Per nurse patient advised to be evaluated at Hospital[facility]. She also had questions about Zoloft during . Pt transferred to nurse to discuss. [facility] 12-05-2024 Miscellaneous Notes Formattin g [...] nurse to discuss. documented in this encounter [facility] 02-04-2023 Evaluation note Encounter Date Diagnosis Assessment Notes Jan, Family history of BRCA gene mutation (ICD-10 - Z84.81) Discussed family history. Pt would like to be checked. She has weighed the risks and benefits and states she would be interested in a B mastectomy if indicated. After calling [facility], the decision was to fax lab order to [facility] ([facility] Order handwritten. Jan, Family history of breast cancer (ICD-10 - Z80.3) Mamm ordered. Jan, Screening mammogram for breast cancer (ICD-10 - Z12.31) [facility] Other 10-21-2022 Evaluation note* Encounter Date Diagnosis Assessment Notes Treatment Notes Treatment Clinical Notes Jul, Strep pharyngitis (ICD-10 - J02.0) [facility] Other 03-23-2022 Evaluation note* Encounter Date Diagnosis [...] were not corrected during the review process. [facility] Other 03-01-2022 History general Narrative - Reported* Type Description Date Medical History post pardom depression Surgical History wisdom teeth Surgical History D&C Surgical History melanoma excision 12/16/21 Hospitalization History child x4 [facility] Other 03-01-2022 History general Narrative - Reported* Type Description Date Medical History post pardom depression Medical History Anxiety, generalized Surgical History wisdom teeth Surgical History D&C Surgical History melanoma excision 12/16/21 Hospitalization History child x4 Hospitalization History see surgical hx [facility] Other Evaluation noteNo assessment information available [facility] Work Phone: Evaluation noteNo InformationNort Quality Solicitors Other Evaluation note* Diagnosis Onset Date Resolution Status Mass of skin of chest acute [facility] Work Phone: Evaluation note* Diagnosis Onset Date Resolution Status Mass of skin of chest acute Right lower lobe pneumonia n [employer] [facility] Work Phone: Evaluation note* Diagnosis First [...] please be sure to follow-up with your CUSTOMER SOLUTIONS SUPERVISOR and primary care provider. If you develop worsening pain, vaginal bleeding, fevers, other symptoms as we discussed please return the emergency department for reevaluation.[facility] Work Phone: Reason for referral (narrative)No reason for referral information [facility] Work Phone: Summary Purpose Family History No [...] section and content) DATE CREATED AUTHOR 04/05/2018 [facility] DATE CREATED AUTHOR AUTHOR'S ORGANIZ ATION 06/15/2018 [facility] DATE CREATED AUTHOR AUTHOR'S ORGANIZ ATION 12/15/2018 [facility] DATE CREATED AUTHOR AUTHOR'S ORGANIZ ATION 12/25/2018 [facility] DATE CREATED AUTHOR AUTHOR'S ORGANIZ ATION 04/03/2025 [facility] DATE CREATED AUTHOR AUTHOR'S ORGANIZ ATION 07/06/2025 [facility] EPIC REASON FOR VISIT (unrecogniz ed section and content) Reason Comments Routine Visit Care Teams (unrecognized sec tion and content) Team Status: Inactive Member Role Status Dates Marianela Oliva MD Primary Care Provider Active Mario Perez DO [facility] Attending Provider Active Team Status: [...] End: May 17, 2024 Mario BALL DO [facility] Attending Provider Active Start: May [...] August 15, 2024 End: August 15, 2024 Inspector 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 Detail 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 Specialty Start Date End Date Marianela Oliva MD [address] [place] [phone] PCP - General Family Medicine 01/27/24 Team [...] December 27, 2024 End: December 27, 2024 Inspector 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 Detail 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 Specialty Start Date End Date Marianela Oliva MD [address] [place] [facility] [phone] PCP - General Family Medicine 01/27/24 Inspector [employer]wnshop Detail 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 Specialty Start Date End Date Marianela Oliva MD [address] [place] [facility] [phone] PCP - General Family Medicine 01/27/24 Inspector [employer]wnshop Detail 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 Specialty Start Date End Date Marianela Oliva MD PCP - General Family Medicine 01/27/24 Inspector [employer]wnshop Detail 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 Specialty Start Date End Date Marianela Oliva MD PCP - General Family Medicine 01/27/24 Inspector 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 Detail 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 Specialty Start Date End Date Marianela Oliva MD PCP - General Family Medicine 01/27/24 Inspector [employer]wnshop Detail 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 Specialty Start Date End Date Marianela Oliva MD PCP - General Family Medicine 01/27/24 Inspector [employer]wnshop Detail 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 Specialty Start Date End Date Marianela [...] March 14, 2025 End: March 14, 2025 Inspector [employer]wnshop Detail 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 Specialty Start Date End Date Marianela Oliva MD [address] [place] [facility] [address] PCP - General Family Medicine 01/27/24 Inspector Pawnshop Detail 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 Specialty Start Date End Date Marianela Oliva MD [address] [place] [facility] [address] PCP - General Family Medicine 01/27/24 Inspector [employer]wnshop Detail 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 Specialty Start Date End Date Marianela Oliva MD [address] [place] [facility] [address] PCP - General Family Medicine 01/27/24 Inspector [employer]wnshop Detail 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 Specialty Start Date End Date Marianela Oliva MD [address] [place] [facility] [address] PCP - General Family Medicine 01/27/24 Inspector [employer]wnshop Detail 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 Specialty Start Date End Date Marianela Oliva MD [address] [place] [facility] [address] PCP - General Family Medicine 01/27/24 Team Status: Inactive Member Role Status Dates Marianela Oliva MD Primary Care Provider Active Start: April 02, 2025 End: April 02, 2025 Mario Perez - [facility] , [facility] Attending Provider Active Start: April 02, 2025 End: April 02, 2025 Team Status: Inactive Member Role Status Dates Marianela Oliva MD Primary Care Provider Active Start: June 12, 2025 End: June 12, 2025 Marianela Oliva MD Attending Provider Active St art: June 12, 2025 End: June 12, 2025 Inspector Pawnshop Detail 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 Specialty Start Date End Date Marianela Oliva MD [address] [place] [facility] [address] PCP - General Family Medicine 01/27/24 Inspector Pawnshop Detail 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 Specialty Start Date End Date Marianlea Oliva MD [address] [place] [phone] PCP - General Family Medicine 01/27/24 [...] BE BASED ON THE PRIMARY CLINICAL RECORDS. [email or web address] [facility]. provides no warranty or guarantee of the accuracy or completeness of information in this document.
[2025-07-07 08:27] VITALS: BP 119/77; PULSE 90
== END 2025-07-07 09:05 | disposition home or self-care (01) ==
LOC: FBCO 08:20 → FBC 08:21
PROVIDERS: Family Provider Family Medicine; PCP Family Medicine; Visit Provider Obstetrics & Gynecology
DX: O26.893 Other specified pregnancy related conditions, third trimester (principal); O09.523 Supervision of elderly multigravida, third trimester
CPT/HCPCS: 59025

== ENCOUNTER 2025-07-11 07:32 | Outpatient (OUT) | payer OTHER, SELFPAY ==
--- NOTE | 2025-07-11 07:35 | US_ITS ---
[address] [address] Patient Name: NORIS SAUCEDA MRN: [facility]:[id number] date: 1990 Sex: F Assigned Patient Location: [facility] Current Patient Location: [facility] Accession/Order Number: [id number] Exam Date: 07/11/2025 07:37 Report Date: 07/11/2025 09:20 At the request of: MARBELLA OMER DO Procedure: US OB BPP w non-stress Biophysical profile. Reason for exam: Advanced maternal age COMPARISON: 07/04/2025 TECHNIQUE: Transabdominal imaging of the gravid uterus was obtained. FINDINGS: The ink grinder reports a BPP of 8 out of 8. GRAYSON is normal at 19.8 cm. heart rate 139 bpm. US/US OB BPP w non-stress IMPRESSION: BPP 8 out of 8. Impression dictated by: Minh Potter Jr., D.O. 07/11/2025 9:20 AM Dictation Location: [place] [address] Electronically authenticated by: [id number] Y Date: 07/11/2025 09:20
--- OUTSIDE RECORDS SUMMARY | 2025-07-11 07:35 | XMS_ITS | CCD ---
Author Organization [facility] Care Team Providers Care Petroleum Inspector Name Role Phone OLIVA, MARIANELA E Unavailable Unavailable OLIVA, MARIANELA E Unavailable Unavailable OLIVA, MARIANELA E Unavailable Unavailable Macario Jarvis Attending Unavailable OLIVA, MARIANELA~[phone] UNKNOWN Primary Care Unavailable HEDGES, CHAU Admitting Unavailable HEDGES, CHAU Attending Unavailable HEDGES, CHAU Referring Unavailable OLIVA, MARIANELA~[phone] UNKNOWN Primary Care Unavailable HEDGES, CHAU W [...] Provider Kuns, DO Mario P Attending Provider [phone] MD Marianela Oliva Primary Care Provider Kuns - [facility], DO Mario P Attending Provider MD Marianela Oliva Attending Provider [phone] MD Derrick Wilson Attending Provider NO FAMILY, PHYSICIAN Primary Care Provider Unava ilable SAUL Reddy Attending Provider [phone] Marianela Oliva MD Primary Care Provider Marianela Oliva MD Primary Care Provider Dasia SANTAMARIA Jose Luana Emergency Provider Marianela Oliva MD Primary Care Provider Dasia SANTAMARIA Jose Luana Emergency Provider Yasmani Abdullahi DO Attending Provider [phone] Marianela Oliva MD Primary Care Provider [phone] Marianela Oliva MD Primary Care Provider Marianela Oliva MD Primary Care Provider [phone] Kuns - [facility], Mario P Admitting Unavailable [...] Care Provider Yasmani Abdullahi DO Attending Provider [facility]ly [facility], [facility] Mario SANTAMARIA Attending Provider Marianela Oliva MD Attending Provider [phone] KAYLEN, YASMANI Attending Unavailable KAYLEN, YASMANI Attending Unavailable KAYLEN, YASMANI Referring Unavailable KAYLEN, YASMANI Attending Unavailable KAYLEN, YASMANI Attending Unavailable KAYLEN, YASMANI Attending Unavailable KAYLEN, YASMANI Referring Unavailable KAYLEN, YASMNAI Attending Unavailable KAYLEN, YASMANI Attending Unavailable KAYLEN, [...] antepartum, gestational diabetes method of control unspecified ([facility]) 1 kit in the morning and 1 [...] Drug Class(es) Dates Sig (Normalized) Sig (Original) [id number] 200 actuat albuterol 0.09 mg/actuat metered dose [...] oral tablet (6 sources) alpha-Adrenergic Agonist, Uncompetitive C-ckjgin-O-aspartat e Receptor Antagonist, Sigma-1 Agonist Start: 08-11-2024 [...] Range Facility Urinalysis macro (dipstick) panel (U)on 07-09-2025 Bilirubin, UA Negative Negative - 4(70) +++ mg/dL [facility] Blood, UA Negative Negative - 50 Tavon/mcL [facility] Clarity, UA Clear [facility] Color, UA Yellow [facility] Glucose, UA Negative Negative - 1999(110) ++++ mg/dL [facility] Interpretation and review of laboratory results Abnormal [facility] Ketones, UA Negative Negative - 160(16) ++++ mg/dL [facility] Leukocytes, UA 2+ Negative - 500+++ Bertha/mcL [facility] Nitrite, UA Negative Negative - Positive [facility] pH, UA 6 5 - 9 [facility] Protein, UA Negative Negative - 2000(20) ++++ mg/dL [facility] Spec Grav, UA 1.015 1 - 1.03 [facility] Urobilinogen, UA 0.2 0.2 - 12 mg/dL [facility] Urinalysis macro (dipstick) panel (U)on 07-05-2025 Bilirubin, UA Negative Negative - 4(70) +++ mg/dL [facility] Blood, UA Negative Negative - 50 Tavon/mcL [facility] Clarity, UA Clear [facility] Color, UA Yellow [facility] Glucose, UA Positive Negative - 2000(110) ++++ mg/dL [facility] Interpretation and review of laboratory results Abnormal [facility] Ketones, UA Negative Negative - 160(16) ++++ mg/dL [facility] Leukocytes, UA Positive Negative - 500+++ Bertha/mcL [facility] Nitrite, UA Negative Negative - Positive [facility] pH, UA 6.5 5 - 9 [facility] Protein, UA Negative Negative - 1999(20) ++++ mg/dL [facility] Spec Grav, UA 1.01 1 - 1.03 [facility] Urobilinogen, UA 1.0 0.2 - 12 mg/dL [facility] US OB BPP W NON-STRESS on 07-04-2025 [place] [address] Ultrasound Report Signed Patient: NORIS GOETZ MR#: [id number] : 1990 Acct:[id number] Age/Sex: 35 / F ADM Date: 07/04/25 Loc: US Attending Dr: Yasmani Abdullahi D.O. Ordering Physician: Yasmani Abdullahi D.O. Date of Service: 07/04/25 Procedure(s): US OB BPP w non-stress Accession Number(s): [id number] cc: Marianela Oliva M.D.; Yasmani Abdullahi D.O. [place] [address] Patient Name: NORIS GOETZ MRN: [id number] date: 1990 Sex: F Assigned Patient Location: [facility] Current Patient Location: Accession/Order Number: [id number] Exam Date: 07/04/2025 07:33 Report Date: 07/04/2025 [...] Barnhart M.D. 07/04/2025 9:15 AM Dictation Location: [place] [address] Electronically authenticated by: [id number] Y Date: 07/04/2025 09:15 Dictated By: Annel Barnhart M.D. Signed By: 07/04/25917 DD/ 4 TD/TT: Wafer Fabrication Operator: [facility] Radiology, Radiologi MD lou - 07/04/2025 [place] [address] Ultrasound Report Signed Patient: NORIS GOETZ MR#: [id number] : 1990 Acct:[id number] Age/Sex: 35 / F ADM Date: 07/04/25 Loc: US Attending Dr: Yasmani Abdullahi D.O. Ordering Physician: Yasmani Abdullahi D.O. Date of Service: 07/04/25 Procedure(s): US OB BPP w non-stress Accession Number(s): [id number] cc: Marianela Oliva M.D.; Yasmani Abdullahi D.O. The [address] [address] Patient Name: NORIS GOETZ MRN: [facility]:[id number] date: 1990 Sex: F Assigned Patient Location: [facility] Current Patient Location: Accession/Order Number: [id number] Exam Date: 07/04/2025 07:33 Report Date: 07/04/2025 [...] Barnhart M.D. 07/04/2025 9:15 AM Dictation Location: [facility] Electronically authenticated by: [id number] Y Date: 07/04/2025 09:15 Dictated By: Annel Barnhart M.D. Signed By: 07/04/25917 DD/ 4 TD/TT: Wafer Fabrication Operator: [facility] Radiology Study observation (narrative) [facility] US OB BPP W NON-STRESS Ordered By: Radiologist Radiology on 07-04-2025 [facility] Work Phone: US OB BPP W NON-STRESS on 06-27-2025 [place] [address] Ultrasound Report Signed Patient: NORIS GOETZ MR#: [id number] : 1990 Acct:[id number] Age/Sex: 35 / F ADM Date: 06/27/25 Loc: US Attending Dr: Yasmani Abdullahi D.O. Ordering Physician: Yasmani Abdullahi D.O. Date of Service: 06/27/25 Procedure(s): US OB BPP w non-stress Accession Number(s): [id number] cc: Marianela Oliva M.D.; Yasmani Abdullahi D.O. The [place] [address] Patient Name: NROIS GOETZ MRN: [facility]:[id number] date: 1990 Sex: F Assigned Patient Location: US Current Patient Location: Accession/Order Number: [id number] Exam Date: 06/27/2025 07:35 Report Date: 06/27/2025 08:36 At the request of: YASMANI ABDULLAHI DO Procedure: US OB BPP w non-stress BIOPHYSICAL PROFILE: CLINICAL INFORMATION: Multigravida of advanced maternal age COMPARISON: 06/22/2025 There is a single live intrauterine gestation in cephalic presentation. The reported gestational age is 35 weeks 4 days The heart rate [id number] beats per minute. FINDINGS: TONE: 1 or [...] Barnhart M.D. 06/27/2025 8:36 AM Dictation Location: [place] [address] Electronically authenticated by: [id number] Y Date: 06/27/2025 08:36 Dictated By: Annel Barnhart M.D. Signed By: 06/27/2539 DD/ 5 TD/TT: Wafer Fabrication Operator: [facility] Radiology, Radiologjoni blake MD - 06/27/2025 [place] [address] Ultrasound Report Signed Patient: NORIS GOETZ MR#: [id number] : 1990 Acct:[id number] Age/Sex: 35 / F ADM Date: 06/27/25 Loc: US Attending Dr: Yasmani Abdullahi D.O. Ordering Physician: Yasmani Abdullahi D.O. Date of Service: 06/27/25 Procedure(s): US OB BPP w non-stress Accession Number(s): [id number] cc: Marianela Oliva M.D.; Yasmani Abdullahi D.O. [place] [address] Patient Name: NORIS GOETZ MRN: [id number] date: 1990 Sex: F Assigned Patient Location: Current Patient Location: Accession/Order Number: [id number] Exam Date: 06/27/2025 07:35 Report Date: 06/27/2025 08:36 At the request of: YASMANI ABDULLAHI DO Procedure: US OB BPP w non-stress BIOPHYSICAL PROFILE: CLINICAL INFORMATION: Multigravida of advanced maternal age COMPARISON: 06/22/2025 There is a single live intrauterine gestation in cephalic presentation. The reported gestational age is 35 weeks 4 days The heart rate [id number] beats per minute. FINDINGS: TONE: 1 or [...] Barnhart M.D. 06/27/2025 8:36 AM Dictation Location: [place] [address] Electronically authenticated by: [id number] Y Date: 06/27/2025 08:36 Dictated By: Annel Barnhart M.D. Signed By: 06/27/25 0839 DD/ TD/TT: Wafer Fabrication Operator: [facility] Radiology Study observation (narrative) [facility] US OB BPP W NON-STRESS Ordered By: Radiologist Radiology on 06-27-2025 [facility] Work Phone: US OB BPP W NON-STRESS on 06-22-2025 [place] [address] Ultrasound Report Signed Patient: NORIS GOETZ MR#: [id number] : 1990 Acct:[id number] Age/Sex: 35 / F ADM Date: 06/22/25 Loc: US Attending Dr: Yasmani Abdullahi D.O. Ordering Physician: Yasmani Abdullahi D.O. Date of Service: 06/22/25 Procedure(s): US OB BPP w non-stress Accession Number(s): [id number] cc: Marianela Oliva M.D.; Yasmani Abdullahi D.O. [place] [address] Patient Name: NORIS GOETZ MRN: [id number] date: 1990 Sex: F Assigned Patient Location: [facility] Current Patient Location: Accession/Order Number: [id number] Exam Date: 06/22/2025 17:18 Report Date: 06/22/2025 [...] Flores M.D. 06/22/2025 9:47 PM Dictation Location: [facility] Electronically authenticated by: [id number] Y Date: 06/22/2025 21:47 Dictated By: Alfonzo Flores D.O. Signed By: 06/22/252149 DD/ 46 TD/TT: Wafer Fabrication Operator: [facility] RadiologyRuben MD - 06/22/2025 [place] [address] Ultrasound Report Signed Patient: NORIS GOETZ MR#: [id number] : 1990 Acct:[id number] Age/Sex: 35 / F ADM Date: 06/22/25 Loc: US Attending Dr: Yasmani Abdullahi D.O. Ordering Physician: Yasmani Abdullahi D.O. Date of Service: 06/22/25 Procedure(s): US OB BPP w non-stress Accession Number(s): [id number] cc: Marianela Oliva M.D.; Yasmani Abdullahi D.O. The [place] [address] Patient Name: NORIS GOETZ MRN: [facility]:[id number] date: 1990 Sex: F Assigned Patient Location: [facility] Current Patient Location: Accession/Order Number: [id number] Exam Date: 06/22/2025 17:18 Report Date: 06/22/2025 [...] Flores M.D. 06/22/2025 9:47 PM Dictation Location: [place] [address] Electronically authenticated by: [id number] Y Date: 06/22/2025 21:47 Dictated By: Alfonzo Flores D.O. Signed By: 06/22/252149 DD/ 46 TD/TT: Wafer Fabrication Operator: [facility] Radiology Study observation (narrative) [facility] US OB BPP W NON-STRESS Ordered By: Radiologist Radiology on 06-22-2025 [facility] Work Phone: US OB FOLLOW UP [...] Negative Negative - 4(70) +++ mg/dL [facility] Blood, UA Negative Negative - 50 Tavon/mcL [facility] Clarity, UA Clear [facility] Color, UA Yellow [facility] Glucose, UA Negative Negative - 2000(110) ++++ mg/dL [facility] Interpretation and review of laboratory results Abnormal [facility] Ketones, UA Positive Negative - 160(16) ++++ mg/dL [facility] Leukocytes, UA 1+ Negative - 500+++ Bertha/mcL [facility] Nitrite, UA Negative Negative - Positive [facility] pH, UA 7 5 - 9 [facility] Protein, UA Negative Negative - 2000(20) ++++ mg/dL [facility] Spec Grav, UA 1.015 1 - 1.03 [facility] Urobilinogen, UA 1.0 0.2 - 12 mg/dL [facility] US OB BPP W NON-STRESS on 06-19-2025 [place] [address] Ultrasound Report Signed Patient: NORIS GOETZ MR#: [id number] : 1990 Acct:[id number] Age/Sex: 35 / F ADM Date: 06/19/25 Loc: [facility] [address]: Yasamni Abdullahi D.O. Ordering Physician: Yasmani Abdullahi D.O. Date of Service: 06/19/25 Procedure(s): US OB BPP w non-stress Accession Number(s): [id number] cc: Marianela Oliva M.D.; Yasmani Abdullahi D.O. [place] [address] Patient Name: NORIS GOETZ MRN: [id number] date: 1990 Sex: F Assigned Patient Location: US Current Patient Location: US Accession/Order Number: [id number] Exam Date: 06/19/2025 11:08 Report Date: 06/19/2025 [...] Barnhart M.D. 06/19/2025 12:15 PM Dictation Location: [facility] Electronically authenticated by: [id number] Y Date: 06/19/2025 12:15 Dictated By: Annel Barnhart M.D. Signed By: 06/19/257 DD/ 14 TD/TT: Wafer Fabrication Operator: [facility] RadiologyAnupamaogjoni blake MD - 06/19/2025 [place] [address] Ultrasound Report Signed Patient: NORIS GOETZ MR#: [id number] : 1990 Acct:[id number] Age/Sex: 35 / F ADM Date: 06/19/25 Loc: [facility] [address]: Yasmani Abdullahi D.O. Ordering Physician: Yasmani Abdullahi D.O. Date of Service: 06/19/25 Procedure(s): US OB BPP w non-stress Accession Number(s): [id number] cc: Marianela Oliva M.D.; Yasmani Abdullahi D.O. The [address] [address] Patient Name: NORIS GOETZ MRN: [facility]:[id number] date: 1990 Sex: F Assigned Patient Location: Current Patient Location: US Accession/Order Number: [id number] Exam Date: 06/19/2025 11:08 Report Date: 06/19/2025 [...] lasting at least 30 seconds [Y] 0/2 GRAYSNO: A single deepest vertical pocket of amniotic fluid greater than 2 cm [Y] 2/2 GRAYSON: 17.7 cm. This is in upper normal range . Total score: 6/8 US/ OB BPP w non-stress IMPRESSION: FAILED BIOPHYSICAL PROFILE WITH NO BREATHING. Impression dictated by: Annel Barnhart M.D. 06/19/2025 12:15 PM Dictation Location: [place] [address] Electronically authenticated by: [id number] Y Date: 06/19/2025 12:15 Dictated By: Annel Barnhart M.D. Signed By: 06/19/25 1217 DD/ 1215 TD/TT: Wafer Fabrication Operator: [facility] Radiology Study observation (narrative) [facility] OB BPP W NON-STRESS Ordered By: Radiologist Radiology on 06-19-2025 [facility] Work Phone: Urinalysis macro (dipstick) panel (U)on 06-07-2025 Bilirubin, UA Negative Negative - 4(70) +++ mg/dL [facility] Blood, UA Negative Negative - 50 Tavon/mcL [facility] Clarity, UA Clear [facility] Color, UA Yellow [facility] Glucose, UA Negative Negative - 1999(110) ++++ mg/dL [facility] Interpretation and review of laboratory results Normal [facility] Ketones, UA Negative Negative - 160(16) ++++ mg/dL [facility] Leukocytes, UA Negative Negative - 500+++ Bertha/mcL [facility] Nitrite, UA Negative Negative - Positive [facility] pH, UA 7.5 5 - 9 [facility] Protein, UA Negative Negative - 2000(20) ++++ mg/dL [facility] Spec Grav, UA 1.005 1 - 1.03 [facility] Urobilinogen, UA 1.0 0.2 - 12 mg/dL [facility] OB FOLLOW UP TRANSABDOMIN AL APPROACHon 05-22-2025 [...] Negative Negative - 4(70) +++ mg/dL [facility] Blood, UA Negative Negative - 50 Tavon/mcL [facility] Clarity, UA Clear [facility] Color, UA Yellow [facility] Glucose, UA Negative Negative - 1999(110) ++++ mg/dL [facility] Interpretation and review of laboratory results Normal [facility] Ketones, UA Negative Negative - 160(16) ++++ mg/dL [facility] Leukocytes, UA Negative Negative - 500+++ Bertha/mcL [facility] Nitrite, UA Negative Negative - Positive [facility] pH, UA 6.5 5 - 9 [facility] Protein, UA Negative Negative - 1999(20) ++++ mg/dL [facility] Spec Grav, UA 1.01 1 - 1.03 [facility] Urobilinogen, UA 1.0 0.2 - 12 mg/dL [facility] Urinalysis macro (dipstick) panel (U)on 05-10-2025 Bilirubin, UA Negative Negative - 4(70) +++ mg/dL [facility] Blood, UA Negative Negative - 50 Tavon/mcL [facility] Clarity, UA Clear [facility] Color, UA Yellow [facility] Glucose, UA Negative Negative - 1999(110) ++++ mg/dL [facility] Interpretation and review of laboratory results Abnormal [facility] Ketones, UA Positive Negative - 160(16) ++++ mg/dL [facility] Comment on above: Large Leukocytes, UA Negative Negative - 500+++ Bertha/mcL [facility] Nitrite, UA Negative Negative - Positive [facility] pH, UA 6.5 5 - 9 [facility] Protein, UA Trace Negative - 1999(20) ++++ mg/dL [facility] Spec Grav, UA 1.015 1 - 1.03 [facility] Urobilinogen, UA 0.2 0.2 - 12 mg/dL [facility] Urinalysis macro (dipstick) panel (U)on 04-10-2025 Bilirubin, UA Negative Negative - 4(70) +++ mg/dL [facility] Blood, UA Negative Negative - 50 Tavon/mcL [facility] Clarity, UA Clear [facility] Color, UA Yellow [facility] Glucose, UA Negative Negative - 1999(110) ++++ mg/dL [facility] Interpretation and review of laboratory results Normal [facility] Ketones, UA Negative Negative - 160(16) ++++ mg/dL [facility] Leukocytes, UA Negative Negative - 500+++ Bertha/mcL [facility] Nitrite, UA Negative Negative - Positive [facility] pH, UA 6.5 5 - 9 [facility] Protein, UA Negative Negative - 1999(20) ++++ mg/dL [facility] Spec Grav, UA 1.025 1 - 1.03 [facility] Urobilinogen, UA 1.0 0.2 - 12 mg/dL [facility] Albumin [Mass/volume] in Ser um or Plasma [...] 3.4 g/dL Low 3.5-5.7 [facility] Comment on above: Performed By: #### P ILLAR TSH, PILLAR CBC, PILLAR BMP, PILLAR LIPID #### [facility] [address] GFR/1.73 sq M.predicted MDRD (S/P/Bld) [Vol rate/Area] mL/min/{1.73_m2} Normal [facility] Comment on above: Performed By: #### P ILLAR TSH, PILLAR CBC, PILLAR BMP, PILLAR LIPID #### [facility] [address] Employee Comp Metabolic Pane lOrdered By: Mario Perez on 04-02-2025 Albumin/Globulin [Mass ratio] 1.5 {ratio} [facility] Comment on above: Performed By: #### P ILLAR TSH, PILLAR CBC, PILLAR BMP, PILLAR LIPID #### [facility] [address] ALP [Catalytic activity/Vol] 39 U/L 34-104 [facility] Comment on above: Performed By: #### P ILLAR TSH, PILLAR CBC, PILLAR BMP, PILLAR LIPID #### [facility] [address] ALT [Catalytic activity/Vol] 10 U/L 7-52 [facility] Comment on above: Performed By: #### P ILLAR TSH, PILLAR CBC, PILLAR BMP, PILLAR LIPID #### [facility] [address] Anion gap [Moles/Vol] 8.5 mmol/L 6.0-15.0 [facility] Comment on above: Performed By: #### P ILLAR TSH, PILLAR CBC, PILLAR BMP, PILLAR LIPID #### [facility] [address] [place] [address] AST [Catalytic activity/Vol] 12 U/L Low 13-39 [facility] Comment on above: Performed By: #### P ILLAR TSH, PILLAR CBC, PILLAR BMP, PILLAR LIPID #### [facility] [address] [place] [address] Bilirubin [Mass/Vol] 0.3 mg/dL 0.3-1.0 [facility] Comment on above: Performed By: #### P ILLAR TSH, PILLAR CBC, PILLAR BMP, PILLAR LIPID #### [facility] [address] [place] [address] Calcium [Mass/Vol] 8.2 mg/dL Low 8.6-10.3 [facility] Comment on above: Performed By: #### P ILLAR TSH, PILLAR CBC, PILLAR BMP, PILLAR LIPID #### [facility] [address] [place] [address] Chloride [Moles/Vol] 106 mmol/L 98-107 [facility] Comment on above: Performed By: #### P ILLAR TSH, PILLAR CBC, PILLAR BMP, PILLAR LIPID #### [facility] [address] [place] [address] CO2 [Moles/Vol] 25.4 mmol/L 21.0-31.0 [facility] Comment on above: Performed By: #### P ILLAR TSH, PILLAR CBC, PILLAR BMP, PILLAR LIPID #### [facility] [address] [place] [address] Creatinine [Mass/Vol] 0.49 mg/dL Low 0.60-1.20 [facility] Comment on above: Performed By: #### P ILLAR TSH, PILLAR CBC, PILLAR BMP, PILLAR LIPID #### [facility] [address] [place] [address] Globulin (S) [Mass/Vol] 2.3 g/dL [facility] Comment on above: Performed By: #### P ILLAR TSH, PILLAR CBC, PILLAR BMP, PILLAR LIPID #### [address] Glucose [Mass/Vol] 92 mg/dL 70-100 [facility] Comment on above: Performed By: #### P ILLAR TSH, PILLAR CBC, PILLAR BMP, PILLAR LIPID #### [facility] [address] [place] [address] Potassium [Moles/Vol] 3.9 mmol/L 3.5-5.1 [facility] Comment on above: Performed By: #### P ILLAR TSH, PILLAR CBC, PILLAR BMP, PILLAR LIPID #### [facility] [address] [place] [address] Protein [Mass/Vol] 5.7 g/dL Low 6.4-8.9 [facility] Comment on above: Performed By: #### P ILLAR TSH, PILLAR CBC, PILLAR BMP, PILLAR LIPID #### [facility] [address] [place] [address] Sodium [Moles/Vol] 136 mmol/L 136-145 [facility] Comment on above: Performed By: #### P ILLAR TSH, PILLAR CBC, PILLAR BMP, PILLAR LIPID #### [facility] [address] [place] [address] Urea nitrogen [Mass/Vol] 12 mg/dL 7-25 [facility] Comment on above: Performed By: #### P ILLAR TSH, PILLAR CBC, PILLAR BMP, PILLAR LIPID #### [facility] [address] Employee Complete Blood Coun tOrdered By: Mario Perez on 04-02-2025 Basophils (Bld) [#/Vol] 0.0 10*3/uL 0.0-0.2 [facility] Comment on above: Result Comment: PERF ORMED BY: [facility] [address] [place] [address] [employer] JESS VARGAS M.D. Performed By: #### P ILLAR LIPID, PILLAR CBC, PILLAR CMP ####[place] [address] [address] Basophils/100 WBC (Bld) 0.5 % . [facility] Comment on above: Performed By: #### P ILLAR LIPID, PILLAR CBC, PILLAR CMP ####[address] Eosinophils (Bld) [#/Vol] 0.2 10*3/uL 0.0-0.45 [facility] Comment on above: Performed By: #### P ILLAR LIPID, PILLAR CBC, PILLAR CMP ####[place] [address] [address] Eosinophils/100 WBC (Bld) 2.5 % . [facility] Comment on above: Performed By: #### P ILLAR LIPID, PILLAR CBC, PILLAR CMP ####[address] Erythrocyte distribution width (RBC) [Ratio] 13.4 % 11.9-15.3 [facility] Comment on above: Performed By: #### P ILLAR LIPID, PILLAR CBC, PILLAR CMP ####[place] [id number] [address] Hematocrit (Bld) [Volume fraction] 34.4 % 34.0-46.4 [facility] Comment on above: Performed By: #### P ILLAR LIPID, PILLAR CBC, PILLAR CMP ####[address] Hemoglobin (Bld) [Mass/Vol] 11.8 g/dL 11.8-15.4 [facility] Comment on above: Performed By: #### P ILLAR LIPID, PILLAR CBC, PILLAR CMP ####[address] Lymphocytes (Bld) [#/Vol] 1.6 10*3/uL 1.00-4.8 [facility] Comment on above: Performed By: #### P ILLAR LIPID, PILLAR CBC, PILLAR CMP ####[address] Lymphocytes/100 WBC (Bld) 21.6 % . [facility] Comment on above: Performed By: #### P ILLAR LIPID, PILLAR CBC, PILLAR CMP ####[address] MCH (RBC) [Entitic mass] 29.3 pg 24.7-34.3 [facility] Comment on above: Performed By: #### P ILLAR LIPID, PILLAR CBC, PILLAR CMP ####[address] MCV (RBC) [Entitic vol] 85.4 fL 80-100 [facility] Comment on above: Performed By: #### P ILLAR LIPID, PILLAR CBC, PILLAR CMP ####[address] Monocytes (Bld) [#/Vol] 0.6 10*3/uL 0.0-0.8 [facility] Comment on above: Performed By: #### P ILLAR LIPID, PILLAR CBC, PILLAR CMP ####[address] Monocytes/100 WBC (Bld) 7.9 % . [facility] Comment on above: Performed By: #### P ILLAR LIPID, PILLAR CBC, PILLAR CMP ####[address] [place] [address] [facility] Neutrophils (Bld) [#/Vol] 5.0 10*3/uL 1.8-7.7 [facility] Comment on above: Performed By: #### P ILLAR LIPID, PILLAR CBC, PILLAR CMP ####[address] [address] [facility] Neutrophils/100 WBC (Bld) 67.5 % . [facility] Comment on above: Performed By: #### P ILLAR LIPID, PILLAR CBC, PILLAR CMP ####[address] [address] [facility] Platelet mean volume (Bld) [Entitic vol] 9.5 fL 6.3-10.7 [facility] Comment on above: Performed By: #### P ILLAR LIPID, PILLAR CBC, PILLAR CMP ####[address] [address] [facility] Platelets (Bld) [#/Vol] 198 10*3/uL 150-450 [facility] Comment on above: Performed By: #### P ILLAR LIPID, PILLAR CBC, PILLAR CMP ####[place] [id number] [facility] RBC (Bld) [#/Vol] 4.03 10*6/uL 3.60-5.00 [facility] Comment on above: Performed By: #### P ILLAR LIPID, PILLAR CBC, PILLAR CMP ####[address] [address] [facility] WBC (Bld) [#/Vol] 7.4 10*3/uL 3.8-11.6 [facility] Comment on above: Performed By: #### P ILLAR LIPID, PILLAR CBC, PILLAR CMP ####[place] [id number] [facility] Employee Complete Blood Coun ton 04-02-2025 Mean Corpuscular HGB Conc 34.3 g/dL Normal 32.0-35.0 [facility] Comment on above: Performed By: #### P ILLAR LIPID, PILLAR CBC, PILLAR CMP ####[facility] [id number] NRBC% 0.1 /100{WBC} Normal 0-0.5 [facility] Comment on above: Performed By: #### P ILLAR LIPID, PILLAR CBC, PILLAR CMP ####[facility] [id number] Employee Lipid ProfileOrdere d By: Mario Perez on 04-02-2025 Cholesterol [Mass/Vol] 222 mg/dL High 140-200 [facility] Comment on above: Result Comment: Chol less than 200 mg/dl low risk Chol 201-239 mg/dl borderline risk Chol 240 mg/dl and greater high risk Performed By: #### P ILLAR TSH, PILLAR CBC, PILLAR BMP, PILLAR LIPID #### [facility] [address] Chol less than 200 m g/dl low riskChol 201-239 mg/dl borderline riskChol 240 mg/dl and greater high risk Cholesterol in HDL [Mass/Vol] 76 mg/dL 23- [facility] Comment on above: Result Comment: HDL CHOL ATP-III CLASSIFICATION Cardiovascular Risk HDL > or equal to 60 mg/dL LOW HDL < 40 mg/dL HIGH Performed By: #### P ILLAR TSH, PILLAR CBC, PILLAR BMP, PILLAR LIPID #### [facility] [address] HDL CHOL ATP-III CLA SSIFICATION Cardiovascular RiskHDL > or equal to 60 mg/dL LOWHDL < 40 mg/dL HIGH Cholesterol.total/Chol esterol in HDL [Mass ratio] 2.9 {ratio} <5.0 [facility] Comment on above: Result Comment: PERF ORMED BY: [place] [address] [employer] J[employer] VARGAS M.D. Performed By: #### P ILLAR TSH, PILLAR CBC, PILLAR BMP, PILLAR LIPID #### [facility] [address] Employee Lipid Profileon LDL Cholesterol,Calculated 120 mg/dL High 0-100 [facility] Comment on above: Result Comment: LDL ATP III CLASSIFICATION LDL less than 100 mg/dL Optimal LDL 100-129 mg/dL Near or above optimal LDL 130-159 mg/dL Borderline high LDL 160-189 mg/dL High LDL greater than 189 mg/dL Very high Performed By: #### P ILLAR TSH, PILLAR CBC, PILLAR BMP, PILLAR LIPID #### [facility] [address] Triglyceride w/Reflex 131 mg/dL Normal 0-149 [facility] Comment on above: Result Comment: TRIG ATP III CLASSIFICATION TRIG less than 150 mg/dL Normal TRIG 150-199 mg/dL Borderline high TRIG 200-500 mg/dL High TRIG greater than 500 mg/dL Very high Standard traceable to the Center for Disease Conrtrol and Prevention (CDC) test method. Performed By: #### P ILLAR TSH, PILLAR CBC, PILLAR BMP, PILLAR LIPID #### [facility] [address] VLDL CHOLESTEROL 26 mg/dL Normal [facility] Comment on above: Performed By: #### P ILLAR TSH, PILLAR CBC, PILLAR BMP, PILLAR LIPID #### [facility] [address] Leukocytes [#/volume] correc randolph for nucleated erythrocytes in Blood by Automated counOrdered By: Mario Perez on 04-02-2025 WBC corrected for nucl RBC Auto (Bld) [#/Vol] 7.4 10*3/uL 3.8-11.6 [facility] MCHC Auto (RBC) [Mass/Vol]Or dered By: Mario Perez on 04-02-2025 MCHC (RBC) [Mass/Vol] 34.3 g/dL 32.0-35.0 [facility] No Panel InformationOrdered By: Mario [...] II, MD, PHD at 16-Mar-2025 11:50:11 AM [facility] Normal Not Available Comment on above: Order Comment: US OB ANATOMY SINGLE W US OB CERVICAL LENGTH Estimated Date of Delivery: 07/28/25 Gestational Age as of 02/15/2025: 16w5d Urinalysis macro (dipstick) panel (U)on 03-15-2025 Bilirubin, UA Negative Negative - 4(70) +++ mg/dL [facility] Blood, UA Negative Negative - 50 Tavon/mcL [facility] Clarity, UA Clear [facility] Color, UA Yellow [facility] Glucose, UA Negative Negative - 2000(110) ++++ mg/dL [facility] Interpretation and review of laboratory results Normal [facility] Ketones, UA Negative Negative - 160(16) ++++ mg/dL [facility] Leukocytes, UA Negative Negative - 500+++ Bertha/mcL [facility] Nitrite, UA Negative Negative - Positive [facility] pH, UA 7 5 - 9 [facility] Protein, UA Negative Negative - 2000(20) ++++ mg/dL [facility] Spec Grav, UA 1.015 1 - 1.03 [facility] Urobilinogen, UA 0.2 0.2 - 12 mg/dL [facility] Basophils Auto (Bld) [#/Vol] Ordered By: Yasmani Abdullahi on 03-14-2025 Basophils (Bld) [#/Vol] Automated basophil count 0.0-0.2 [facility] Basophils/100 WBC Auto (Bld) Ordered By: Yasmani Abdullahi on 03-14-2025 Basophils/100 WBC (Bld) Automated basophil % . [facility] CBC W Auto Differential pane l (Bld)on 03-14-2025 Basophils (Bld) [#/Vol] 0 10*3/uL 0.0 - 0.2 10*3/uL [facility] Basophils/100 WBC Manual cnt (Syn fld) 0.3 % . [facility] Eosinophils (Bld) [#/Vol] 0.1 10*3/uL 0.0 - 0.45 10*3/uL [facility] Eosinophils/100 WBC Manual cnt (Syn fld) 1 % . [facility] Erythrocyte distribution width (RBC) [Ratio] 13.5 % 11.9 - 15.3 % [facility] Hematocrit (Bld) [Volume fraction] 35.8 % 34.0 - 46.4 % [facility] Hemoglobin (Bld) [Mass/Vol] 12.6 g/dL 11.8 - 15.4 g/dL [facility] Interpretation and review of laboratory results Abnormal [facility] Lymphocytes (Bld) [#/Vol] 1.8 10*3/uL 1.00 - 4.8 10*3/uL [facility] Lymphocytes/100 WBC Manual cnt (Syn fld) 19.9 % . [facility] MCH (RBC) [Entitic mass] 29.2 pg 24.7 - 34.3 pg [facility] MCHC (RBC) [Mass/Vol] 35.1 g/dL High 32.0 - 35.0 g/dL [facility] MCV (RBC) [Entitic vol] 83.3 fL 80 - 100 fL [facility] Monocytes (Bld) [#/Vol] 0.7 10*3/uL 0.0 - 0.8 10*3/uL [facility] Monocytes+Macrophages/ 100 WBC Manual cnt (Syn fld) 8.2 % . [facility] Neutrophils (Bld) [#/Vol] 6.4 10*3/uL 1.8 - 7.7 10*3/uL [facility] Neutrophils/100 WBC Manual cnt (Syn fld) 70.6 % . [facility] NRBC 0.1 /100{WBC} 0 - 0.5 /100{WBC} [facility] Platelet mean volume (Bld) [Entitic vol] 9 fL 6.3 - 10.7 fL [facility] Platelets (Bld) [#/Vol] 235 10*3/uL 150 - 450 10*3/uL [facility] RBC LM.HPF (Urine sed) [#/Area] 4.3 10*6/uL 3.60 - 5.00 10*6/uL [facility] WBC (Bld) [#/Vol] 9.1 10*3/uL 3.8 - 11.6 10*3/uL [facility] WBC LM.HPF (Urine sed) [#/Area] 9.1 10*3/uL 3.8 - 11.6 10*3/uL [facility] Complete Blood Count Auto Di ffOrdered By: Yasmani Abdullahi on 03-14-2025 Basophils (Bld) [#/Vol] 0.0 10*3/uL 0.0-0.2 [facility] Comment on above: Result Comment: PERF ORMED BY: [facility] [address] [place] [address] [employer] VARGAS M.D. Performed By: #### C BC ####[address] Basophils/100 WBC (Bld) 0.3 % . [facility] Comment on above: Performed By: #### C BC ####[address] Eosinophils (Bld) [#/Vol] 0.1 10*3/uL 0.0-0.45 [facility] Comment on above: Performed By: #### C BC ####[address] Eosinophils/100 WBC (Bld) 1.0 % . [facility] Comment on above: Performed By: #### C BC ####[address] Erythrocyte distribution width (RBC) [Ratio] 13.5 % 11.9-15.3 [facility] Comment on above: Performed By: #### C BC ####[address] Hematocrit (Bld) [Volume fraction] 35.8 % 34.0-46.4 [facility] Comment on above: Performed By: #### C BC ####[address] Hemoglobin (Bld) [Mass/Vol] 12.6 g/dL 11.8-15.4 [facility] Comment on above: Performed By: #### C BC ####[address] Lymphocytes (Bld) [#/Vol] 1.8 10*3/uL 1.00-4.8 [facility] Comment on above: Performed By: #### C BC ####[address] Lymphocytes/100 WBC (Bld) 19.9 % . [facility] Comment on above: Performed By: #### C BC ####[address] MCH (RBC) [Entitic mass] 29.2 pg 24.7-34.3 [facility] Comment on above: Performed By: #### C BC ####[address] MCV (RBC) [Entitic vol] 83.3 fL 80-100 [facility] Comment on above: Performed By: #### C BC ####[address] Monocytes (Bld) [#/Vol] 0.7 10*3/uL 0.0-0.8 [facility] Comment on above: Performed By: #### C BC ####[address] Monocytes/100 WBC (Bld) 8.2 % . [facility] Comment on above: Performed By: #### C BC ####[address] Neutrophils (Bld) [#/Vol] 6.4 10*3/uL 1.8-7.7 [facility] Comment on above: Performed By: #### C BC ####[address] Neutrophils/100 WBC (Bld) 70.6 % . [facility] Comment on above: Performed By: #### C BC ####[place] [id number] [facility] Platelet mean volume (Bld) [Entitic vol] 9.0 fL 6.3-10.7 [facility] Comment on above: Performed By: #### C BC ####[place] [id number] [facility] Platelets (Bld) [#/Vol] 235 10*3/uL 150-450 [facility] Comment on above: Performed By: #### C BC ####[address] RBC (Bld) [#/Vol] 4.30 10*6/uL 3.60-5.00 [facility] Comment on above: Performed By: #### C BC ####[address] WBC (Bld) [#/Vol] 9.1 10*3/uL 3.8-11.6 [facility] Comment on above: Performed By: #### C BC ####[place] [id number] [facility] Complete Blood Count Auto Di ffon 03-14-2025 Mean Corpuscular HGB Conc 35.1 g/dL High 32.0-35.0 [facility] Comment on above: Performed By: #### C BC ####[address] NRBC% 0.1 /100{WBC} Normal 0-0.5 [facility] Comment on above: Performed By: #### C BC ####[address] Eosinophils Auto (Bld) [#/Vo l]Ordered By: [...] MCHC (RBC) [Mass/Vol] 35.1 g/dL High 32.0-35.0 [facility] MCV Auto (RBC) [Entitic vol] Ordered [...] GDLNon AGE GDLN ACOG TESTING Note . [facility] Comment on above: TESTS RESULT FLAG UN ITS REF RANGE LAB Clinician Provided Cytology Information Source.............[employer] Other.............. No. of containers..01 ThinPrep Vial Age Algo ACOG Gemma... 30-65 01 FLAG LEGEND: L-Low Normal,H-High Normal,LL-Alert Low,HH-Alert High <-Panic Low,>-Panic High,A-Abnormal,AA-Critical Abnormal Performed at: 01 =G [facility] [address] Azalea Quezada MD, HPV APTIMA Negative Negative [facility] Comment on above: This nucleic acid am plification test detects fourteen high- risk HPV types (16,18,31,33,35,39,45,51,52,56,58,59,66,68) without differentiation. Performed at: =G - [facility] [id number] Plant Electrical Engineer: Azalea Quezada MD, Phone: [phone] Performed at: - [facility] [id number] Plant Electrical Engineer: Azalea Quezada MD, Phone: [phone] IGP, APTIMA HPV, RFX 16/18,45 Note . [facility] Comment on above: TESTS RESULT FLAG UN ITS REF RANGE LAB DIAGNOSIS: 02 NEGATIVE FOR INTRAEPITHELIAL LESION OR MALIGNANCY. Specimen adequacy: 02 Satisfactory for evaluation. No endocervical component is identified. An endocervical component is not commonly seen in the patient. Performed by: 02 Oli Martin, Traction Power Engineer (ASCP) . 02 Note: Note 02 The [...] Low,>-Panic High,A-Abnormal,AA-Critical Abnormal Performed at: [address] [address] Azalea Quezada MD, SPATULA-ALONE END[facility]IS[facility] RECURRENT VAGINITIS (HTRX)on 02-16-2025 ATOPOBIUM VAGINAE 0 [facility] ATOPOBIUM VAGINAE Not detected [facility] BVAB 2,3 (BACTERIAL VAGINOSIS ASSOCIATED BACTERIA 2, 3); MOBILUNCUS SPP 0 [facility] BVAB 2,3 (BACTERIAL VAGINOSIS ASSOCIATED BACTERIA 2, 3); MOBILUNCUS SPP Not detected [facility] JOHNNIE ALBICANS, PARAPSILOSIS, TROPICALIS 0 [facility] JOHNNIE ALBICANS, PARAPSILOSIS, TROPICALIS Not detected [...] virus 16+18+31+33+35+39+45+51+5 2+56+58+59+66+68 DNA [Presence] in Cer [facility] Comment on above: This nucleic acid am plification test detects fourteen high- risk HPV types (16,18,31,33,35,39,45,51,52,56,58,59,66,68)without differentiation.Performed at: =G - [facility] [address] [facility] [place], [place] [id number] Director: Azalea Quezada MD, Phone: [phone] at: WB - [facility] [address] [facility] [place], [place] [id number] Director: Azalea Quezada MD, Phone: [phone] No Panel Informationon 02-15 HPV High Risk Other Comment Note . [facility] Comment on above: TESTS RESULT FLAG UN ITS REF RANGE LAB DIAGNOSIS: 02 NEGATIVE FOR INTRAEPITHELIAL LESION OR MALIGNANCY.Specimen adequacy: 02 Satisfactory for evaluation. No endocervical component is identified. An endocervical component is not commonly seen in the patient.Performed by: 02 Oli Martin, Traction Power Engineer (ASCP). 02Note: Note 02 The Pap smear [...] Low,>-Panic High,A-Abnormal,AA-Critical Abnormal -----Performed at:02 WB [facility] [place] [address] [place] [address] Azalea Quezada MD, Reference Lab Test Patient Age Note . [facility] Comment on above: TESTS RESULT FLAG UN ITS REF RANGE LAB Clinician Provided Cytology Information Source.............[employer] Other.............. No. of containers..01 ThinPrep VialAge John PEREZ Gemma... FLAG LEGEND: L-Low Normal,H-High Normal,LL-Alert Low,HH-Alert High <-Panic Low,>-Panic High,A-Abnormal,AA-Critical Abnormal -----Performed at:01 =G [facility] [place] [address] [facility] [place] [address] Azalea Quezada MD, Urinalysis macro (dipstick) panel (U)on 02-15-2025 Bilirubin, UA Negative Negative - 4(70) +++ mg/dL [facility] Blood, UA Negative Negative - 50 Tavon/mcL [facility] Clarity, UA Clear [facility] Color, UA Yellow [facility] Glucose, UA Positive Negative - 2000(110) ++++ mg/dL [facility] Comment on above: 100 Interpretation and review of laboratory results Abnormal [facility] Ketones, UA Negative Negative - 160(16) ++++ mg/dL [facility] Leukocytes, UA Negative Negative - 500+++ Bertha/mcL [facility] Nitrite, UA Negative Negative - Positive [facility] pH, UA 5.5 5 - 9 [facility] Protein, UA Negative Negative - 1999(20) ++++ mg/dL [facility] Spec Grav, UA 1.005 1 - 1.03 [facility] Urobilinogen, UA 0.2 0.2 - 12 mg/dL [facility] Urinalysis macro (dipstick) panel (U)on 01-18-2025 Bilirubin, UA Negative Negative - 4(70) +++ mg/dL [facility] Blood, UA Negative Negative - 50 Tavon/mcL [facility] Clarity, UA Clear [facility] Color, UA Yellow [facility] Glucose, UA Negative Negative - 1999(110) ++++ mg/dL [facility] Interpretation and review of laboratory results Abnormal [facility] Ketones, UA Negative Negative - 160(16) ++++ mg/dL [facility] Leukocytes, UA Negative Negative - 500+++ Bertha/mcL [facility] Nitrite, UA Negative Negative - Positive [facility] pH, UA 6 5 - 9 [facility] Protein, UA Negative Negative - 1999(20) ++++ mg/dL [facility] Spec Grav, UA 1.03 1 - 1.03 [facility] Urobilinogen, UA 0.2 0.2 - 12 mg/dL [facility] A1C with Estimated Average G luon 12-27-2024 Glucose [Mass/Vol] 103 mg/dL Normal [facility] Comment on above: Order Comment: NONFA STING.JKW Result Comment: PERF ORMED BY: [facility] [address] [place] [address] [employer] LEÓN GARCIA M.D. Performed By: #### H CV RX PCR, RPR W RFX, RUBELLA IGG, HBSAG, HIV SCREEN ####[facility] ,#### CUU, A1C WTH eA, CBC, URDS ####[facility] [id number] [place] [id number] [facility] HbA1c (Bld) [Mass fraction] 5.2 % Normal 4.3-5.6 [facility] Comment on above: Order Comment: NONFA STING.JKW Result Comment: Incr eased risk for diabetes: 5.7 - 6.4 diabetes: >6.4 glycemic control for adults with diabetes: <7.0 Performed By: #### H CV RX PCR, RPR W RFX, RUBELLA IGG, HBSAG, HIV SCREEN ####[facility] ,#### CUU, A1C WTH eA, CBC, URDS ####[facility] [id number] [place] [id number] [facility] Amphetamine Screen Ql (U)Ord ered By: Yasmani [...] Basophils (Bld) [#/Vol] Automated basophil count 0.0-0.2 [facility] Basophils/100 WBC Auto (Bld) Ordered By: Yasmani [...] (Bld) [#/Vol] 0.0 10*3/uL Normal 0.0-0.2 [facility] Comment on above: Order Comment: NONFA STING.JKW Result Comment: PERF ORMED BY: [place] [address] [employer] LEÓN GARCIA M.D. Performed By: #### H CV RX PCR, RPR W RFX, RUBELLA IGG, HBSAG, HIV SCREEN #### [facility] , #### CUU, A1C WTH eA, CBC, URDS #### [facility] [address] [place] [address] Basophils/100 WBC (Bld) 0.6 % Normal . [facility] Comment on above: Order Comment: NONFA STING.JKW Performed By: #### H CV RX PCR, RPR W RFX, RUBELLA IGG, HBSAG, HIV SCREEN #### [facility] , #### CUU, A1C WTH eA, CBC, URDS #### [facility] [address] [place] [address] [place] Eosinophils (Bld) [#/Vol] 0.1 10*3/uL Normal 0.0-0.45 [facility] Comment on above: Order Comment: NONFA STING.JKW Performed By: #### H CV RX PCR, RPR W RFX, RUBELLA IGG, HBSAG, HIV SCREEN #### [facility] , #### CUU, A1C WTH eA, CBC, URDS #### [address] Eosinophils/100 WBC (Bld) 1.7 % Normal . [facility] Comment on above: Order Comment: NONFA STING.JKW Performed By: #### H CV RX PCR, RPR W RFX, RUBELLA IGG, HBSAG, HIV SCREEN #### [facility] , #### CUU, A1C WTH eA, CBC, URDS #### [address] Erythrocyte distribution width (RBC) [Ratio] 13.7 % Normal 11.9-15.3 [facility] Comment on above: Order Comment: NONFA STING.JKW Performed By: #### H CV RX PCR, RPR W RFX, RUBELLA IGG, HBSAG, HIV SCREEN #### [facility] , #### CUU, A1C WTH eA, CBC, URDS #### [address] Hematocrit (Bld) [Volume fraction] 38.2 % Normal 34.0-46.4 [facility] Comment on above: Order Comment: NONFA STING.JKW Performed By: #### H CV RX PCR, RPR W RFX, RUBELLA IGG, HBSAG, HIV SCREEN #### [facility] , #### CUU, A1C WTH eA, CBC, URDS #### [address] Hemoglobin (Bld) [Mass/Vol] 13.0 g/dL Normal 11.8-15.4 [facility] Comment on above: Order Comment: NONFA STING.JKW Performed By: #### H CV RX PCR, RPR W RFX, RUBELLA IGG, HBSAG, HIV SCREEN #### [facility] , #### CUU, A1C WTH eA, CBC, URDS #### [address] [place] [address] [place] Lymphocytes (Bld) [#/Vol] 1.2 10*3/uL Normal 1.00-4.8 [facility] Comment on above: Order Comment: NONFA STING.JKW Performed By: #### H CV RX PCR, RPR W RFX, RUBELLA IGG, HBSAG, HIV SCREEN #### [facility] , #### CUU, A1C WTH eA, CBC, URDS #### [address] Lymphocytes/100 WBC (Bld) 19.5 % Normal . [facility] Comment on above: Order Comment: NONFA STING.JKW Performed By: #### H CV RX PCR, RPR W RFX, RUBELLA IGG, HBSAG, HIV SCREEN #### [facility] , #### CUU, A1C WTH eA, CBC, URDS #### [address] MCH (RBC) [Entitic mass] 27.8 pg Normal 24.7-34.3 [facility] Comment on above: Order Comment: NONFA STING.JKW Performed By: #### H CV RX PCR, RPR W RFX, RUBELLA IGG, HBSAG, HIV SCREEN #### [facility] , #### CUU, A1C WTH eA, CBC, URDS #### [address] MCV (RBC) [Entitic vol] 81.5 fL Normal 80-100 [facility] Comment on above: Order Comment: NONFA STING.JKW Performed By: #### H CV RX PCR, RPR W RFX, RUBELLA IGG, HBSAG, HIV SCREEN #### [facility] , #### CUU, A1C WTH eA, CBC, URDS #### [address] Mean Corpuscular HGB Conc 34.1 g/dL Normal 32.0-35.0 [facility] Comment on above: Order Comment: NONFA STING.JKW Performed By: #### H CV RX PCR, RPR W RFX, RUBELLA IGG, HBSAG, HIV SCREEN #### [facility] , #### CUU, A1C WTH eA, CBC, URDS #### [place] [address] [place] Monocytes (Bld) [#/Vol] 0.4 10*3/uL Normal 0.0-0.8 [facility] Comment on above: Order Comment: NONFA STING.JKW Performed By: #### H CV RX PCR, RPR W RFX, RUBELLA IGG, HBSAG, HIV SCREEN #### [facility] , #### CUU, A1C WTH eA, CBC, URDS #### [place] [address] [place] Monocytes/100 WBC (Bld) 6.7 % Normal . [facility] Comment on above: Order Comment: NONFA STING.JKW Performed By: #### H CV RX PCR, RPR W RFX, RUBELLA IGG, HBSAG, HIV SCREEN #### [facility] , #### CUU, A1C WTH eA, CBC, URDS #### [place] [address] [place] Neutrophils (Bld) [#/Vol] 4.5 10*3/uL Normal 1.8-7.7 [facility] Comment on above: Order Comment: NONFA STING.JKW Performed By: #### H CV RX PCR, RPR W RFX, RUBELLA IGG, HBSAG, HIV SCREEN #### [facility] , #### CUU, A1C WTH eA, CBC, URDS #### [place] [address] [place] Neutrophils/100 WBC (Bld) 71.5 % Normal . [facility] Comment on above: Order Comment: NONFA STING.JKW Performed By: #### H CV RX PCR, RPR W RFX, RUBELLA IGG, HBSAG, HIV SCREEN #### [facility] , #### CUU, A1C WTH eA, CBC, URDS #### [facility] [address] NRBC% 0.0 /100{WBC} Normal 0-0.5 [facility] Comment on above: Order Comment: NONFA STING.JKW Performed By: #### H CV RX PCR, RPR W RFX, RUBELLA IGG, HBSAG, HIV SCREEN #### [facility] , #### CUU, A1C WTH eA, CBC, URDS #### [address] Platelet mean volume (Bld) [Entitic vol] 8.8 fL Normal 6.3-10.7 [facility] Comment on above: Order Comment: NONFA STING.JKW Performed By: #### H CV RX PCR, RPR W RFX, RUBELLA IGG, HBSAG, HIV SCREEN #### [facility] , #### CUU, A1C WTH eA, CBC, URDS #### [address] Platelets (Bld) [#/Vol] 225 10*3/uL Normal 150-450 [facility] Comment on above: Order Comment: NONFA STING.JKW Performed By: #### H CV RX PCR, RPR W RFX, RUBELLA IGG, HBSAG, HIV SCREEN #### [facility] , #### CUU, A1C WTH eA, CBC, URDS #### [facility] [address] [place] [address] RBC (Bld) [#/Vol] 4.69 10*6/uL Normal 3.60-5.00 [facility] Comment on above: Order Comment: NONFA STING.JKW Performed By: #### H CV RX PCR, RPR W RFX, RUBELLA IGG, HBSAG, HIV SCREEN #### [facility] , #### CUU, A1C WTH eA, CBC, URDS #### [facility] [address] WBC (Bld) [#/Vol] 6.4 10*3/uL Normal 3.8-11.6 [facility] Comment on above: Order Comment: NONFA STING.JKW Performed By: #### H CV RX PCR, RPR W RFX, RUBELLA IGG, HBSAG, HIV SCREEN #### [facility] , #### CUU, A1C WTH eA, CBC, URDS #### [facility] [address] Drug Screen,Urineon 12-28-19 Amphetamine Screen,Urine Negative Normal Negative [facility] Comment on above: Order Comment: NONFA STING.JKW Performed By: #### H CV RX PCR, RPR W RFX, RUBELLA IGG, HBSAG, HIV SCREEN ####[facility] ,#### CUU, A1C WTH eA, CBC, URDS ####[facility] Barbiturate Screen,Urine Negative Normal Negative [facility] Comment on above: Order Comment: NONFA STING.JKW Performed By: #### H CV RX PCR, RPR W RFX, RUBELLA IGG, HBSAG, HIV SCREEN ####[facility] ,#### CUU, A1C WTH eA, CBC, URDS ####[facility] Benzodiazepines Screen,Urine Negative Normal Negative [facility] Comment on above: Order Comment: NONFA STING.JKW Performed By: #### H CV RX PCR, RPR W RFX, RUBELLA IGG, HBSAG, HIV SCREEN ####[facility] ,#### CUU, A1C WTH eA, CBC, URDS ####[place] [address] [address] Cannabinoid Screen,Urine Negative Normal Negative [facility] Comment on above: Order Comment: NONFA STING.JKW Result Comment: Thes e are unconfirmed results and should not be used for legal purposes. Drug Cut-Off Concentration: AMPH 1000 ng/mL ABELARDO 200 ng/mL JESSE 200 ng/mL COCM 300 ng/mL OP 300 ng/mL PCP 25 ng/mL THC 20 ng/mL PERFORMED BY: [facility] [address] [place] [address] [employer] M[employer]. Performed By: #### H CV RX PCR, RPR W RFX, RUBELLA IGG, HBSAG, HIV SCREEN ####[facility] ,#### CUU, A1C WTH eA, CBC, URDS ####[place] [address] [address] Cocaine Screen,Urine Negative Normal Negative [facility] Comment on above: Order Comment: NONFA STING.JKW Performed By: #### H CV RX PCR, RPR W RFX, RUBELLA IGG, HBSAG, HIV SCREEN ####[facility] ,#### CUU, A1C WTH eA, CBC, URDS ####[address] Opiate Screen,Urine Negative Normal Negative [facility] Comment on above: Order Comment: NONFA STING.JKW Performed By: #### H CV RX PCR, RPR W RFX, RUBELLA IGG, HBSAG, HIV SCREEN ####[facility] ,#### CUU, A1C WTH eA, CBC, URDS ####[address] Phencyclidine Screen,Urine Negative Normal Negative [facility] Comment on above: Order Comment: NONFA STING.JKW Performed By: #### H CV RX PCR, RPR W RFX, RUBELLA IGG, HBSAG, HIV SCREEN ####[facility] ,#### CUU, A1C WTH eA, CBC, URDS ####[address] Eosinophils Auto (Bld) [#/Vo l]Ordered By: [...] 4th Generation Non-Reactive Normal Non Reactive [facility] Comment on above: Order Comment: NONFA STING.JKW Result Comment: HIV- 1/HIV-2 antibodies and HIV-1 p24 antigen were NOT detected. There is no laboratory evidence of HIV infection. HIV Negative Performed at: [facility] [place] [id number] Plant Electrical Engineer: Garfield Fay PhD, Phone: [phone] Performed By: #### H CV RX PCR, RPR W RFX, RUBELLA IGG, HBSAG, HIV SCREEN ####[facility] ,#### CUU, A1C WTH eA, CBC, URDS ####[facility] [id number] [place] [address] [facility] HIV antibody and antigen nails elOrdered By: Yasmani Abdullahi on 12-27-2024 HIV 1+2 Ab+HIV1 p24 Ag IA Ql HIV 1 and HIV-2 antibody assay with HIV-1 p24 antigen detection Non Reactive [facility] Comment on above: HIV-1/HIV-2 antibodi es and HIV-1 p24 antigen were NOTdetected. There is no laboratory evidence of HIV infection.HIV NegativePerformed at: [employer] [id number] Director: Garfield Fay PhD, Phone: [phone] Hematocrit Auto (Bld) [Volum e fraction]Ordered By: Yasmani Abdullahi on 12-27-2024 Hematocrit (Bld) [Volume fraction] Hematocrit [Volume Fraction] of Blood by Automated count 34.0-46.4 [facility] Hemoglobin A1c/Hemoglobin.to dylan in BloodOrdered By: Yasmani Abdullahi on 12-27-2024 HbA1c (Bld) [Mass fraction] Hemoglobin A1c percentage 4.3-5.6 [facility] Comment on above: Increased risk for d iabetes: 5.7 - 6.4diabetes: >6.4glycemic control for adults with diabetes: <7.0 Hemoglobin [Mass/volume] in BloodOrdered By: Yasmani Abdullahi on 12-27-2024 Hemoglobin (Bld) [Mass/Vol] Hemoglobin [Mass/volume] in Blood 11.8-15.4 [facility] Hep C Ab wRfx to Qnt PCRon 0 12-27-2024 Hepatitis C Virus Antibody Non-Reactive Normal Non Reactive [facility] Comment on above: Order Comment: NONFA STING.JKW Performed By: #### H CV RX PCR, RPR W RFX, RUBELLA IGG, HBSAG, HIV SCREEN ####[facility] ,#### CUU, A1C WTH eA, CBC, URDS ####[facility] [id number] Interpretation Hepatitis C Comment Normal . [facility] Comment on above: Order Comment: NONFA STING.JKW Result Comment: Not infected with HCV unless early or acute infection is suspected (which may be delayed in an immunocompromised individual), or other evidence exists to indicate HCV infection. Performed By: #### H CV RX PCR, RPR W RFX, RUBELLA IGG, HBSAG, HIV SCREEN ####[facility] ,#### CUU, A1C WTH eA, CBC, URDS ####[facility] [id number] Hepatitis B Surface Antigeno n 12-27-2024 HBsAg Screen Negative Normal Negative [facility] Comment on above: Order Comment: NONFA STING.JKW Result Comment: Perf ormed at: - [facility] [address] [id number] Plant Electrical Engineer: Garfield Fay PhD, Phone: [phone] PERFORMED BY: [facility] [address] [place] [address] [employer] M[employer]D. Performed By: #### H CV RX PCR, RPR W RFX, RUBELLA IGG, HBSAG, HIV SCREEN ####[facility] ,#### CUU, A1C WTH eA, CBC, URDS ####[facility] [id number] Hepatitis C virus IgG Ab [Pr [...] Quant RPR Non-Reactive Normal Non Reactive [facility] Comment on above: Order Comment: NONFA STING.JKW Result Comment: Perf ormed at: - [facility] [address] [id number] Plant Electrical Engineer: Garfield Fay PhD, Phone: [phone] PERFORMED BY: [facility] [address] [place] [address] [employer] M[employer] Performed By: #### H CV RX PCR, RPR W RFX, RUBELLA IGG, HBSAG, HIV SCREEN ####[facility] ,#### CUU, A1C WTH eA, CBC, URDS ####[address] Rubella IgG Antibodyon 12-27 Rubella IgG Antibody 1.22 Normal Immune >0.99 [facility] Comment on above: Order Comment: NONFA STING.JKW Result Comment: Non- immune <0.90 Equivocal 0.90 - 0.99 Immune >0.99 Performed By: #### H CV RX PCR, RPR W RFX, RUBELLA IGG, HBSAG, HIV SCREEN ####[facility] ,#### CUU, A1C WTH eA, CBC, URDS ####[facility] [id number] [place] [address] [facility] Rubella IgG antibody assayOr dered By: Yasmani Abdullahi on 12-27-2024 Rubella IgG Antibody 1.22 index Immune >0.99 [facility] Comment on above: Non-immune <0.90 Equ ivocal 0.90 - 0.99 Immune >0.99 Serum RPR testOrdered By: Co krzysztof Abdullahi on 12-27-2024 Reagin Ab RPR Ql (S) Reagin Ab [Presence ] in Serum by RPR Non Reactive [facility] Comment on above: Performed at: [facility] [address] [id number] Director: Garfield Fay PhD, Phone: [phone] Serum or plasma hepatitis B virus surface antigen detection by immunoassayOrdered By: Yasmani Abdullahi on 12-27-2024 HBV surface Ag IA Ql Hepatitis B virus s urface Ag [Presence] in Serum or Plasma by Immunoassay Negative [facility] Comment on above: Performed at: [facility] [address] [id number] Director: Garfield Fay PhD, Phone: [phone] Type and Screenon 12-27-2024 ABO and Rh group Nom (Bld) Blood group B Rh(D) negative Normal [facility] Comment on above: Order Comment: NONFA STING.JKW Result Comment: PERF ORMED BY: [facility] [address] [place] [address] [employer] Urine Cultureon 12-27-2024 Bacteria identified Cx Nom (U) NONFASTING.JKW 15,000 colonies/ml mixed bacterial skin contaminants 2 Days PERFORMED BY: [facility] [address] [place] [address] [employer] M[employer] Normal [facility] Comment on above: Performed By: #### H CV RX PCR, RPR W RFX, RUBELLA IGG, HBSAG, HIV SCREEN ####[facility] ,#### CUU, A1C WTH eA, CBC, URDS ####[facility] [id number] [place] [id number] [facility] Urine cultureOrdered By: Paramjit Abdullahi on 12-27-2024 [...] II, MD, PHD at 22-Dec-2024 08:23:50 AM [facility] Normal Not Available Comment on above: [...] on 12-06-2024 Appearance (U) Urine appearance Clear [facility] Aspartate aminotransferase [ Enzymatic activity/volume] in [...] gap [Moles/Vol] 7.0 mmol/L Normal 6.0-15.0 [facility] Comment on above: Performed By: #### C BC, HCGQNT, LIPASE, PT, HS TROP, PTT, HEPATIC, BMP ####[facility] [place] [id number] [facility] Calcium [Mass/Vol] 9.1 mg/dL Normal 8.6-10.3 [facility] Comment on above: Performed By: #### C BC, HCGQNT, LIPASE, PT, HS TROP, PTT, HEPATIC, BMP ####[facility] [place] [address] [facility] Chloride [Moles/Vol] 106 mmol/L Normal 98-107 [facility] Comment on above: Performed By: #### C BC, HCGQNT, LIPASE, PT, HS TROP, PTT, HEPATIC, BMP ####[address] CO2 [Moles/Vol] 24.6 mmol/L Normal 21.0-31.0 [facility] Comment on above: Performed By: #### C BC, HCGQNT, LIPASE, PT, HS TROP, PTT, HEPATIC, BMP ####[address] Creatinine [Mass/Vol] 0.70 mg/dL Normal 0.60-1.20 [facility] Comment on above: Performed By: #### C BC, HCGQNT, LIPASE, PT, HS TROP, PTT, HEPATIC, BMP ####[address] Creatinine Clr Calc Pharmacy 129.71 Normal [facility] Comment on above: Performed By: #### C BC, HCGQNT, LIPASE, PT, HS TROP, PTT, HEPATIC, BMP ####[address] GFR/1.73 sq M.predicted MDRD (S/P/Bld) [Vol rate/Area] mL/min/{1.73_m2} Normal [facility] Comment on above: Performed By: #### C BC, HCGQNT, LIPASE, PT, HS TROP, PTT, HEPATIC, BMP ####[address] Glucose [Mass/Vol] 94 mg/dL Normal 70-100 [facility] Comment on above: Result Comment: [place] Glucose Reference Range is dependent on time and content of last meal. Glucose of more than 200 mg/dL in a nonstressed, ambulatory subject supports the diagnosis of Diabetes Mellitus. ADA recommended reference range Performed By: #### C BC, HCGQNT, LIPASE, PT, HS TROP, PTT, HEPATIC, BMP ####[address] Potassium [Moles/Vol] 3.6 mmol/L Normal 3.5-5.1 [facility] Comment on above: Performed By: #### C BC, HCGQNT, LIPASE, PT, HS TROP, PTT, HEPATIC, BMP ####[place] [address] [address] Sodium [Moles/Vol] 134 mmol/L Low 136-145 [facility] Comment on above: Performed By: #### C BC, HCGQNT, LIPASE, PT, HS TROP, PTT, HEPATIC, BMP ####[place] [address] [address] Urea nitrogen [Mass/Vol] 9 mg/dL Normal 7-25 [facility] Comment on above: Performed By: #### C BC, HCGQNT, LIPASE, PT, HS TROP, PTT, HEPATIC, BMP ####[place] [address] [address] Basophils Auto (Bld) [#/Vol] Ordered By: Jose Forman on 12-06-2024 Basophils (Bld) [#/Vol] Automated basophil count 0.0-0.2 [facility] Basophils/100 WBC Auto (Bld) Ordered By: Jose [...] Color of Urine by Auto Yellow Fi [facility] Complete Blood Count Auto Di ffon 12-06-2024 Basophils (Bld) [#/Vol] 0.0 10*3/uL Normal 0.0-0.2 [facility] Comment on above: Result Comment: PERF ORMED BY: [facility] [address] [place] [address] [employer] Performed By: #### C BC, HCGQNT, LIPASE, PT, HS TROP, PTT, HEPATIC, BMP ####[facility] [id number] [place] [address] [facility] Basophils/100 WBC (Bld) 0.4 % Normal . [facility] Comment on above: Performed By: #### C BC, HCGQNT, LIPASE, PT, HS TROP, PTT, HEPATIC, BMP ####[address] Eosinophils (Bld) [#/Vol] 0.0 10*3/uL Normal 0.0-0.45 [facility] Comment on above: Performed By: #### C BC, HCGQNT, LIPASE, PT, HS TROP, PTT, HEPATIC, BMP ####[address] Eosinophils/100 WBC (Bld) 0.4 % Normal . [facility] Comment on above: Performed By: #### C BC, HCGQNT, LIPASE, PT, HS TROP, PTT, HEPATIC, BMP ####[address] Erythrocyte distribution width (RBC) [Ratio] 13.0 % Normal 11.9-15.3 [facility] Comment on above: Performed By: #### C BC, HCGQNT, LIPASE, PT, HS TROP, PTT, HEPATIC, BMP ####[address] Hematocrit (Bld) [Volume fraction] 38.5 % Normal 34.0-46.4 [facility] Comment on above: Performed By: #### C BC, HCGQNT, LIPASE, PT, HS TROP, PTT, HEPATIC, BMP ####[address] Hemoglobin (Bld) [Mass/Vol] 13.4 g/dL Normal 11.8-15.4 [facility] Comment on above: Performed By: #### C BC, HCGQNT, LIPASE, PT, HS TROP, PTT, HEPATIC, BMP ####[address] Lymphocytes (Bld) [#/Vol] 1.1 10*3/uL Normal 1.00-4.8 [facility] Comment on above: Performed By: #### C BC, HCGQNT, LIPASE, PT, HS TROP, PTT, HEPATIC, BMP ####[address] Lymphocytes/100 WBC (Bld) 14.1 % Normal . [facility] Comment on above: Performed By: #### C BC, HCGQNT, LIPASE, PT, HS TROP, PTT, HEPATIC, BMP ####[address] MCH (RBC) [Entitic mass] 27.6 pg Normal 24.7-34.3 [facility] Comment on above: Performed By: #### C BC, HCGQNT, LIPASE, PT, HS TROP, PTT, HEPATIC, BMP ####[address] MCV (RBC) [Entitic vol] 79.6 fL Low 80-100 [facility] Comment on above: Performed By: #### C BC, HCGQNT, LIPASE, PT, HS TROP, PTT, HEPATIC, BMP ####[address] Mean Corpuscular HGB Conc 34.7 g/dL Normal 32.0-35.0 [facility] Comment on above: Performed By: #### C BC, HCGQNT, LIPASE, PT, HS TROP, PTT, HEPATIC, BMP ####[address] Monocytes (Bld) [#/Vol] 0.5 10*3/uL Normal 0.0-0.8 [facility] Comment on above: Performed By: #### C BC, HCGQNT, LIPASE, PT, HS TROP, PTT, HEPATIC, BMP ####[address] Monocytes/100 WBC (Bld) 16.18 % Normal 0.00-20.00 [facility] Comment on above: Performed By: #### C BC, HCGQNT, LIPASE, PT, HS TROP, PTT, HEPATIC, BMP ####[address] Monocytes/100 WBC (Bld) 6.4 % Normal . [facility] Comment on above: Performed By: #### C BC, HCGQNT, LIPASE, PT, HS TROP, PTT, HEPATIC, BMP ####[address] Neutrophils (Bld) [#/Vol] 5.9 10*3/uL Normal 1.8-7.7 [facility] Comment on above: Performed By: #### C BC, HCGQNT, LIPASE, PT, HS TROP, PTT, HEPATIC, BMP ####[address] Neutrophils/100 WBC (Bld) 78.7 % Normal . [facility] Comment on above: Performed By: #### C BC, HCGQNT, LIPASE, PT, HS TROP, PTT, HEPATIC, BMP ####[address] NRBC% 0.0 /100{WBC} Normal 0-0.5 [facility] Comment on above: Performed By: #### C BC, HCGQNT, LIPASE, PT, HS TROP, PTT, HEPATIC, BMP ####[address] Platelet mean volume (Bld) [Entitic vol] 8.7 fL Normal 6.3-10.7 [facility] Comment on above: Performed By: #### C BC, HCGQNT, LIPASE, PT, HS TROP, PTT, HEPATIC, BMP ####[address] Platelets (Bld) [#/Vol] 230 10*3/uL Normal 150-450 [facility] Comment on above: Performed By: #### C BC, HCGQNT, LIPASE, PT, HS TROP, PTT, HEPATIC, BMP ####[address] RBC (Bld) [#/Vol] 4.84 10*6/uL Normal 3.60-5.00 [facility] Comment on above: Performed By: #### C BC, HCGQNT, LIPASE, PT, HS TROP, PTT, HEPATIC, BMP ####[address] WBC (Bld) [#/Vol] 7.6 10*3/uL Normal 3.8-11.6 [facility] Comment on above: Performed By: #### C BC, HCGQNT, LIPASE, PT, HS TROP, PTT, HEPATIC, BMP ####[facility] [id number] [place] [id number] [place] Creatinine [Mass/volume] in Serum or PlasmaOrdered By: Jose Forman on 12-06-2024 Creatinine [Mass/Vol] Creatinine [Mass/v olume] in Serum or Plasma 0.60-1.20 [facility] Dipstick and Microscopicon 0 12-06-2024 Appearance (U) Clear Normal Clear [facility] Comment on above: Order Comment: Name Collection Type:: Clean-Voided Midstream Performed By: #### U HCG, ADDONUAPLUS #### [facility] [address] [place] [id number] [place] Bacteria,Urine None Seen Normal None Seen [facility] Comment on above: Order Comment: Name Collection Type:: Clean-Voided Midstream Performed By: #### U HCG, ADDONUAPLUS #### [facility] [address] [place] [id number] [place] Bilirubin,Urine Negative Normal Negative [facility] Comment on above: Order Comment: Name Collection Type:: Clean-Voided Midstream Performed By: #### U HCG, ADDONUAPLUS #### [facility] [address] [place] [id number] [place] Color (U) Yellow Normal Yellow [facility] Comment on above: Order Comment: Name Collection Type:: Clean-Voided Midstream Performed By: #### U HCG, ADDONUAPLUS #### [facility] [address] [place] [id number] [place] Glucose Ql (U) Normal Normal Normal [facility] Comment on above: Order Comment: Name Collection Type:: Clean-Voided Midstream Performed By: #### U HCG, ADDONUAPLUS #### [facility] [address] [place] [id number] [place] Hyaline Casts,Urine None Normal 0-8 [facility] Comment on above: Order Comment: Name Collection Type:: Clean-Voided Midstream Performed By: #### U HCG, ADDONUAPLUS #### [address] Ketones Ql (U) 1+ High Negative [facility] Comment on above: Order Comment: Name Collection Type:: Clean-Voided Midstream Performed By: #### U HCG, ADDONUAPLUS #### [address] Leukocyte esterase Test strip Ql (U) Negative Normal Negative [facility] Comment on above: Order Comment: Name Collection Type:: Clean-Voided Midstream Performed By: #### U HCG, ADDONUAPLUS #### [address] Mucus,Urine Rare Normal [facility] Comment on above: Order Comment: Name Collection Type:: Clean-Voided Midstream Performed By: #### U HCG, ADDONUAPLUS #### [place] [address] [place] Nitrite,Urine Negative Normal Negative [facility] Comment on above: Order Comment: Name Collection Type:: Clean-Voided Midstream Performed By: #### U HCG, ADDONUAPLUS #### [address] Occult Blood,Urine Negative Normal Negative [facility] Comment on above: Order Comment: Name Collection Type:: Clean-Voided Midstream Performed By: #### U HCG, ADDONUAPLUS #### [place] [address] [place] pH (U) 6.5 [pH] Normal 5.0-9.0 [facility] Comment on above: Order Comment: Name Collection Type:: Clean-Voided Midstream Performed By: #### U HCG, ADDONUAPLUS #### [place] [address] [place] Protein,Urine Trace High Negative [facility] Comment on above: Order Comment: Name Collection Type:: Clean-Voided Midstream Performed By: #### U HCG, ADDONUAPLUS #### [facility] [address] [place] [address] RBC,Urine 1-2 Normal 0-4 [facility] Comment on above: Order Comment: Name Collection Type:: Clean-Voided Midstream Performed By: #### U HCG, ADDONUAPLUS #### [address] Specificy [place],Urine 1.025 Normal 1.001-1.03 0 [facility] Comment on above: Order Comment: Name Collection Type:: Clean-Voided Midstream Performed By: #### U HCG, ADDONUAPLUS #### [address] Squamous Epithelial Cell,Urine 1-2 Normal 0-2 [facility] Comment on above: Order Comment: Name Collection Type:: Clean-Voided Midstream Performed By: #### U HCG, ADDONUAPLUS #### [address] Urobilinogen,Urine Normal Normal Normal [facility] Comment on above: Order Comment: Name Collection Type:: Clean-Voided Midstream Performed By: #### U HCG, ADDONUAPLUS #### [address] WBC,Urine 1-2 Normal 0-4 [facility] Comment on above: Order Comment: Name Collection Type:: Clean-Voided Midstream Performed By: #### U HCG, ADDONUAPLUS #### [address] ECG 12 lead ECGon 12-06-2024 ECG 12 lead ECG [facility] [address] [place] [address] Electrocardiograph Report Signed Patient: Noris Goetz MR#: [id number] 61 : 1990 Acct:[id number] Age/Sex: 34 / F ADM Date: 12/06/24 Loc: ER Room: Type: [facility] ER Attending Dr: Ordering Provider: Jose [...] branch block Confirmed by Jose FORMAN DO ([id number]) on 12/06/2024 10:38:39 AM Referred By: Electronically Signed By: Jose FORMAN DO Transcribed By: MUS Signed By Jose Forman DO 0 12/06/24 1038 Normal [facility] Eosinophils Auto (Bld) [#/Vo [...] High [facility] HCG,Quantitativeon HCG,Quantitative 390726.00 m[iU]/mL Normal [facility] Comment on above: Result Comment: Appr oximate Approximate hCG Gestational Age Range (mIU/ml) (weeks) 0.2-1 5-50 1-2 50-500 2-3 100-5,000 3-4 500-10,000 4-5 1,000-50,000 5-6 10,000-100,000 6-8 15,000-200,000 8-12 10,000-100,000 PERFORMED BY: [place] [address] [employer] LEÓN GARCIA M.D. Performed By: #### C BC, HCGQNT, LIPASE, PT, HS TROP, PTT, HEPATIC, BMP ####[facility] [id number] HCG,Urineon 12-06-2024 Beta HCG ( test) Ql (U) Positive High [facility] Comment on above: Order Comment: Name Collection Type:: Clean-Voided Midstream Result Comment: PERF ORMED BY: [place] [address] [employer] LE[employer] GARCIA M.D. Performed By: #### U HCG, ADDONUAPLUS #### [facility] [address] [place] [address] Hematocrit Auto (Bld) [Volum e fraction]Ordered By: [...] 4.1 g/dL Normal 3.5-5.7 [facility] Comment on above: Performed By: #### C BC, HCGQNT, LIPASE, PT, HS TROP, PTT, HEPATIC, BMP ####[address] Albumin/Globulin [Mass ratio] 1.6 {ratio} Normal [facility] Comment on above: Performed By: #### C BC, HCGQNT, LIPASE, PT, HS TROP, PTT, HEPATIC, BMP ####[address] ALP [Catalytic activity/Vol] 47 U/L Normal 34-104 [facility] Comment on above: Performed By: #### C BC, HCGQNT, LIPASE, PT, HS TROP, PTT, HEPATIC, BMP ####[address] ALT [Catalytic activity/Vol] 11 U/L Normal 7-52 [facility] Comment on above: Performed By: #### C BC, HCGQNT, LIPASE, PT, HS TROP, PTT, HEPATIC, BMP ####[address] AST [Catalytic activity/Vol] 12 U/L Low 13-39 [facility] Comment on above: Performed By: #### C BC, HCGQNT, LIPASE, PT, HS TROP, PTT, HEPATIC, BMP ####[address] Bilirubin [Mass/Vol] 0.5 mg/dL Normal 0.3-1.0 [facility] Comment on above: Performed By: #### C BC, HCGQNT, LIPASE, PT, HS TROP, PTT, HEPATIC, BMP ####[address] Bilirubin,Indirect 0.4 mg/dL Normal [facility] Comment on above: Performed By: #### C BC, HCGQNT, LIPASE, PT, HS TROP, PTT, HEPATIC, BMP ####[address] Bilirubin.indirect [Mass/Vol] 0.10 mg/dL Normal 0.03-0.18 [facility] Comment on above: Performed By: #### C BC, HCGQNT, LIPASE, PT, HS TROP, PTT, HEPATIC, BMP ####[address] Globulin (S) [Mass/Vol] 2.6 g/dL Normal [facility] Comment on above: Performed By: #### C BC, HCGQNT, LIPASE, PT, HS TROP, PTT, HEPATIC, BMP ####[address] Protein [Mass/Vol] 6.7 g/dL Normal 6.4-8.9 [facility] Comment on above: Performed By: #### C BC, HCGQNT, LIPASE, PT, HS TROP, PTT, HEPATIC, BMP ####[address] Hyaline casts [#/area] in Ur ine [...] [Catalytic activity/Vol] 11.0 U/L Normal 11.0-82.0 [facility] Comment on above: Performed By: #### C BC, HCGQNT, LIPASE, PT, HS TROP, PTT, HEPATIC, BMP ####[facility] [id number] Lipase [Enzymatic activity/v olume] in Serum or [...] [Time] 28.1 s Normal 25.1-36.5 [facility] Comment on above: Result Comment: A he matocrit value greater than 55% may lead to inaccurate results in coagulation testing. Patients having hematocrit values >55% require a special collection tube for coagulation studies. Please contact the laboratory at [phone] for redraw instructions. PERFORMED BY: [facility] [address] [place] [address] [employer] LE[employer]N GARCIA M.D. Performed By: #### C BC, HCGQNT, LIPASE, PT, HS TROP, PTT, HEPATIC, BMP ####[facility] [id number] [address] Platelet mean volume Auto (B ld) [Entitic [...] (PPP) [Relative time] 1.1 {INR} Normal [facility] Comment on above: Result [...] PT, HS TROP, PTT, HEPATIC, BMP ####[facility] [id number] PT Coag (PPP) [Time] 12.3 s Normal 9.0-12.9 [facility] Comment on above: Result Comment: A he matocrit value greater than 55% may lead to inaccurate results in coagulation testing. Patients having hematocrit values >55% require a special collection tube for coagulation studies. Please contact the laboratory at [phone] for redraw instructions. Performed By: #### C BC, HCGQNT, LIPASE, PT, HS TROP, PTT, HEPATIC, BMP ####[facility] [id number] Prothrombin time (PT)Ordered By: Jose Forman on 12-06-2024 PT Coag (PPP) [Time] Prothrombin time (PT) 9.0- 12.9 [facility] Comment on above: A hematocrit value g reater than 55% may lead to inaccurate results in coagulation testing. Patients having hematocrit values >55% require a special collection tube for coagulation studies. Please contact the laboratory at [phone] for redraw instructions. RBC Auto (Bld) [#/Vol]Ordere [...] I High Sensitivity 3 Normal 0-15 [facility] Comment on above: Result Comment: The Troponin units of report have been changed to meet the Chest Pain Accreditation requirement, element EC5.M1l2. Troponin units are changed from pg/ml to ng/L. Also, the decimal is removed and results are in whole numbers. PERFORMED BY: [facility] [address] [place] [address] [employer] LE[employer] GARCIA M.D. Performed By: #### C BC, HCGQNT, LIPASE, PT, HS TROP, PTT, HEPATIC, BMP ####[facility] [id number] [place] [id number] [facility] Troponin I.cardiac [Mass/vol ume] in Serum or [...] fetuson US OB <= 14 weeks fetus [facility] [address] [place] [address] Ultrasound Report Signed Patient: Noris Goetz MR#: [id number] 61 : 1990 Acct:[id number] Age/Sex: 34 / F ADM Date: 12/06/24 Loc: ER Room: Type: [facility] ER Attending Dr: Ordering Provider: Jose Forman DO Date of Service: 12/06/24 US/US OB <= 14 weeks fetus: Abdominal Pain Copies to: Jose Forman DO Obstetrical ultrasound for fetus less than 14 weeks HISTORY: Abdominal pain. Vaginal bleeding COMPARISON: None The heart rate is 126bpm. Ovaries not visualized No free fluid identified in cul-de-sac. No subchorionic hemorrhage identified. [place]-rump length measures 6.4cm consistent with 6 weeks 4 days. The yolk sac is not seen. The estimated due date by this ultrasound is 07/28/2025. US/US OB <= 14 weeks fetus IMPRESSION: Single live anterior gestation 6 weeks 4 days. Impression dictated by: Alfonzo Flores M.D.12/06/2024 9:55 AM Dictation Location: [employer] Tech: Antonieta Greenberg Transcribed By: [facility] 12/06/24954 Dictated By: Alfonzo Flores DO 12/06/2454 Signed By: 12/06/2455 Normal [facility] Urea nitrogen [Mass/volume] in [...] coagulation studies. Please contact the laboratory at [phone] for redraw instructions. pH Test strip (U)Ordered By: Jose Forman on 12-06-2024 pH (U) pH of Urine by Test strip 5.0-9.0 [facility] XR chest 2V*on 08-11-2024 XR chest 2V* [facility] [place] [address] XRay Report Signed Patient: Noris Goetz MR#: [id number] 61 : 1990 Acct:[id number] Age/Sex: 34 / F ADM Date: 08/11/24 Loc: XDUCLY Room: Type: [facility] Attending Dr: Melissa Reddy [employer]IST Copies to: Melissa Reddy APRN Ordering Provider: [...] Alfonzo Flores M.D.08/11/2024 9:59 AM Dictation Location: [place] [address] Transcribed By: [facility] 08/11/2459 Dictated By: Alfonzo Flores DO 08/11/2458 Signed By: 08/11/24958 Normal [facility] No Panel InformationOrdered By: Derrick Wilson on 08-02-2024 Miscellaneous Pathology Test See comment [facility] Comment on above: See report. Scanned copy available in EMR. Pathology Request for Lab Co rpon 08-02-2024 Pathology Request for Lab Ministerio Normal [facility] Comment on above: Order Comment: PATHO LOGY SKIN SPECIMEN Result Comment: See report. Scanned copy available in EMR. PERFORMED BY: [place] [address] [employer]IL[employer] JOAN CROWLEY M.D. Performed By: #### P ATH TO [facility] ####[facility] [id number] [place] [id number] [facility] US extremity nonvascularon 0 05-23-2024 US extremity nonvascular [facility] [address] [place] [address] Ultrasound Report Signed Patient: Noris Goetz MR#: [id number] 61 : 1990 Acct:[id number] Age/Sex: 34 / F ADM Date: 05/23/24 Loc: Room: Type: [facility] Attending Dr: Marianela Oliva MD Ordering [...] Annel Barnhart M.D.05/23/2024 2:18 PM Dictation Location: [place] [address] Tech: Ayleen Hackett Transcribed By: JOSESITO 05/23/24 1418 Dictated By: Annel Barnhart MD 05/23/24 1414 Signed By: 05/23/24 1418 Normal [facility] Automated basophil %Ordered By: Mario Perez on 05-17-2024 Basophils/100 WBC (Bld) 0.8 % Normal . [facility] Comment on above: Order Comment: FASTI ARANZA. JKW Performed By: #### P ILLAR TSH, PILLAR CBC, PILLAR BMP, PILLAR LIPID #### [facility] [address] [place] [address] Automated basophil countOrde red By: Mario Perez on 05-17-2024 Basophils (Bld) [#/Vol] 0.0 10*3/uL Normal 0.0-0.2 [facility] Comment on above: Order Comment: FASTI ARANZA. JKW Result Comment: PERF ORMED BY: [place] [address] [employer] CROWLEY M.D. Performed By: #### P ILLAR TSH, PILLAR CBC, PILLAR BMP, PILLAR LIPID #### [facility] [address] [place] [address] Automated blood monocyte cou ntOrdered By: Mario Perez on 05-17-2024 Monocytes (Bld) [#/Vol] 0.6 10*3/uL Normal 0.0-0.8 [facility] Comment on above: Order Comment: FASTI NG. JKW Performed By: #### P ILLAR TSH, PILLAR CBC, PILLAR BMP, PILLAR LIPID #### [facility] [address] [place] [address] Automated eosinophil %Ordere d By: Mario Perez on 05-17-2024 Eosinophils/100 WBC (Bld) 5.3 % Normal . [facility] Comment on above: Order Comment: FASTI NG. JKW Performed By: #### P ILLAR TSH, PILLAR CBC, PILLAR BMP, PILLAR LIPID #### [address] Automated eosinophil countOr dered By: Mario Perez on 05-17-2024 Eosinophils (Bld) [#/Vol] 0.3 10*3/uL Normal 0.0-0.45 [facility] Comment on above: Order Comment: FASTI NG. JKW Performed By: #### P ILLAR TSH, PILLAR CBC, PILLAR BMP, PILLAR LIPID #### [facility] [address] [place] [address] Automated monocyte %Ordered By: Mario Perez on 05-17-2024 Monocytes/100 WBC (Bld) 10.8 % Normal . [facility] Comment on above: Order Comment: FASTI NG. JKW Performed By: #### P ILLAR TSH, PILLAR CBC, PILLAR BMP, PILLAR LIPID #### [address] Automated neutrophil %Ordere d By: Mario Perez on 05-17-2024 Neutrophils/100 WBC (Bld) 55.1 % Normal . [facility] Comment on above: Order Comment: FASTI NG. JKW Performed By: #### P ILLAR TSH, PILLAR CBC, PILLAR BMP, PILLAR LIPID #### [address] Calcium [Mass/volume] in Ser um or PlasmaOrdered By: Mario Perez on 05-17-2024 Calcium [Mass/Vol] 8.5 mg/dL Low 8.6-10.3 [facility] Comment on above: Order Comment: RONNIE HollandKW Performed By: #### P ILLAR TSH, PILLAR CBC, PILLAR BMP, PILLAR LIPID #### [facility] [address] [place] [id number] [place] Carbon dioxide, total [Moles /volume] in Serum or PlasmaOrdered By: Mario Perez on 05-17-2024 CO2 [Moles/Vol] 27.7 mmol/L Normal 21.0-31.0 [facility] Comment on above: Order Comment: RONNIE HollandKW Performed By: #### P ILLAR TSH, PILLAR CBC, PILLAR BMP, PILLAR LIPID #### [place] [address] [place] Chloride [Moles/volume] in S eamon or PlasmaOrdered By: Mario Perez on 05-17-2024 Chloride [Moles/Vol] 109 mmol/L High 98-107 [facility] Comment on above: Order Comment: RONNIE HollandKW Performed By: #### P ILLAR TSH, PILLAR CBC, PILLAR BMP, PILLAR LIPID #### [facility] [address] [place] [id number] [place] Cholesterol [Mass/volume] in Serum or PlasmaOrdered By: Mario Perez on 05-17-2024 Cholesterol [Mass/Vol] 170 mg/dL Normal 140-200 [facility] Comment on above: Chol less than 200 m g/dl low riskChol 201-239 mg/dl borderline riskChol 240 mg/dl and greater high risk Order Comment: RONNIE HollandKW Result Comment: Chol less than 200 mg/dl low risk Chol 201-239 mg/dl borderline risk Chol 240 mg/dl and greater high risk Performed By: #### P ILLAR TSH, PILLAR CBC, PILLAR BMP, PILLAR LIPID #### [facility] [address] [place] [id number] [place] Cholesterol in LDL Calc [Mas s/Vol]Ordered By: [...] 05-17-2024 Creatinine [Mass/Vol] 0.73 mg/dL Normal 0.60-1.20 [facility] Comment on above: Order Comment: FASTI NG. JKW Performed By: #### P ILLAR TSH, PILLAR CBC, PILLAR BMP, PILLAR LIPID #### [address] Employee Basic Metabolic Nails good hope 05-17-2024 GFR/1.73 sq M.predicted MDRD (S/P/Bld) [Vol rate/Area] mL/min/{1.73_m2} Normal [facility] Comment on above: Order Comment: FASTI NG. JKW Performed By: #### P ILLAR TSH, PILLAR CBC, PILLAR BMP, PILLAR LIPID #### [address] Employee Complete Blood Coun ton 05-17-2024 Mean Corpuscular HGB Conc 34.2 g/dL Normal 32.0-35.0 [facility] Comment on above: Order Comment: FASTI NG. JKW Performed By: #### P ILLAR TSH, PILLAR CBC, PILLAR BMP, PILLAR LIPID #### [facility] [address] NRBC% 0.1 /100{WBC} Normal 0-0.5 [facility] Comment on above: Order Comment: FASTI NG. JKW Performed By: #### P ILLAR TSH, PILLAR CBC, PILLAR BMP, PILLAR LIPID #### [facility] [address] Employee Lipid Profileon LDL Cholesterol,Calculated 109 mg/dL High 0-100 [facility] Comment on above: Order Comment: RONNIE HollandKW Result Comment: LDL ATP III CLASSIFICATION LDL less than 100 mg/dL Optimal LDL 100-129 mg/dL Near or above optimal LDL 130-159 mg/dL Borderline high LDL 160-189 mg/dL High LDL greater than 189 mg/dL Very high Performed By: #### P ILLAR TSH, PILLAR CBC, PILLAR BMP, PILLAR LIPID #### [address] Triglyceride w/Reflex 52 mg/dL Normal 0-149 [facility] Comment on above: Order [...] PILLAR CBC, PILLAR BMP, PILLAR LIPID #### [address] VLDL CHOLESTEROL 10 mg/dL Normal [facility] Comment on above: Order Comment: RONNIE HollandKW Performed By: #### P ILLAR TSH, PILLAR CBC, PILLAR BMP, PILLAR LIPID #### [address] Employee Thyroid Stim Hormon paulo 05-17-2024 Employee Thyroid Stim Hormone 1.90 u[iU]/mL Normal 0.45-5.33 [facility] Comment on above: Order Comment: RONNIE HollandKW Result Comment: PERF ORMED BY: [place] [address] [employer] CROWLEY M.D. Performed By: #### P ILLAR TSH, PILLAR CBC, PILLAR BMP, PILLAR LIPID #### [address] Erythrocyte distribution wid th [Ratio] by Automated countOrdered By: Mario Perez on 05-17-2024 Erythrocyte distribution width (RBC) [Ratio] 13.7 % Normal 11.9-15.3 [facility] Comment on above: Order Comment: RONNIE HollandKW Performed By: #### P ILLAR TSH, PILLAR CBC, PILLAR BMP, PILLAR LIPID #### [facility] [address] [place] [address] [place] Erythrocytes [#/volume] in B lood by Automated countOrdered By: Mario Perez on 05-17-2024 RBC (Bld) [#/Vol] 4.62 10*6/uL Normal 3.60-5.00 [facility] Comment on above: Order Comment: FASTJoni HollandKW Performed By: #### P ILLAR TSH, PILLAR CBC, PILLAR BMP, PILLAR LIPID #### [facility] [address] [place] [address] Glucose [Mass/volume] in Ser um or PlasmaOrdered By: Mario Perez on 05-17-2024 Glucose [Mass/Vol] 95 mg/dL Normal 70-100 [facility] Comment on above: Order Comment: RONNIE HollandKW Performed By: #### P ILLAR TSH, PILLAR CBC, PILLAR BMP, PILLAR LIPID #### [facility] [address] [place] [address] Hematocrit [Volume Fraction] of Blood by Automated countOrdered By: Mario Perez on 05-17-2024 Hematocrit (Bld) [Volume fraction] 36.7 % Normal 34.0-46.4 [facility] Comment on above: Order Comment: JAMESI ARANZA. JKW Performed By: #### P ILLAR TSH, PILLAR CBC, PILLAR BMP, PILLAR LIPID #### [facility] [address] [place] [address] [place] Hemoglobin [Mass/volume] in BloodOrdered By: Mario Perez on 05-17-2024 Hemoglobin (Bld) [Mass/Vol] 12.6 g/dL Normal 11.8-15.4 [facility] Comment on above: Order Comment: FASTI NG. JKW Performed By: #### P ILLAR TSH, PILLAR CBC, PILLAR BMP, PILLAR LIPID #### [facility] [address] [place] [address] [place] Leukocytes [#/volume] correc randolph for nucleated erythrocytes in Blood by Automated counOrdered By: Mario Perez on 05-17-2024 WBC corrected for nucl RBC Auto (Bld) [#/Vol] 5.1 10*3/uL 3.8-11.6 [facility] Leukocytes [#/volume] in Blo od by Automated countOrdered By: Mario Perez on 05-17-2024 WBC (Bld) [#/Vol] 5.1 10*3/uL Normal 3.8-11.6 [facility] Comment on above: Order Comment: FASTI NG. JKW Performed By: #### P ILLAR TSH, PILLAR CBC, PILLAR BMP, PILLAR LIPID #### [facility] [address] [place] [address] [place] Lymphocytes [#/volume] in Bl ood by Automated countOrdered By: Mario Perez on 05-17-2024 Lymphocytes (Bld) [#/Vol] 1.4 10*3/uL Normal 1.00-4.8 [facility] Comment on above: Order Comment: FASTI NG. JKW Performed By: #### P ILLAR TSH, PILLAR CBC, PILLAR BMP, PILLAR LIPID #### [facility] [address] [place] [address] [place] Lymphocytes/100 leukocytes i n Blood by Automated countOrdered By: Mario Perez on 05-17-2024 Lymphocytes/100 WBC (Bld) 28.0 % Normal . [facility] Comment on above: Order Comment: FASTI NG. JKW Performed By: #### P ILLAR TSH, PILLAR CBC, PILLAR BMP, PILLAR LIPID #### [facility] [address] [place] [address] [place] MCH [Entitic mass] by Automa randolph countOrdered By: Mario Perez on 05-17-2024 MCH (RBC) [Entitic mass] 27.2 pg Normal 24.7-34.3 [facility] Comment on above: Order Comment: FASTJoni COBIAN. JKW Performed By: #### P ILLAR TSH, PILLAR CBC, PILLAR BMP, PILLAR LIPID #### [facility] [address] MCHC Auto (RBC) [Mass/Vol]Or dered By: Mario Perez on 05-17-2024 MCHC (RBC) [Mass/Vol] 34.2 g/dL 32.0-35.0 [facility] MCV [Entitic volume] by Auto mated countOrdered By: Mario Perez on 05-17-2024 MCV (RBC) [Entitic vol] 79.4 fL Low 80-100 [facility] Comment on above: Order Comment: FASTJoni COBIAN. JKW Performed By: #### P ILLAR TSH, PILLAR CBC, PILLAR BMP, PILLAR LIPID #### [facility] [address] [place] [address] Neutrophils [#/volume] in Bl ood by Automated countOrdered By: Mario Perez on 05-17-2024 Neutrophils (Bld) [#/Vol] 2.8 10*3/uL Normal 1.8-7.7 [facility] Comment on above: Order Comment: RONNIE COBIAN. JKW Performed By: #### P ILLAR TSH, PILLAR CBC, PILLAR BMP, PILLAR LIPID #### [facility] [address] [place] [address] No Panel InformationOrdered By: Mario Perez on [...] PILLAR CBC, PILLAR BMP, PILLAR LIPID #### [facility] [address] Platelets [#/volume] in Bloo d by Automated countOrdered By: Mario Perez on 05-17-2024 Platelets (Bld) [#/Vol] 192 10*3/uL Normal 150-450 [facility] Comment on above: Order Comment: FASTI NG. JKW Performed By: #### P ILLAR TSH, PILLAR CBC, PILLAR BMP, PILLAR LIPID #### [facility] [address] [place] [address] Potassium [Moles/volume] in Serum or PlasmaOrdered By: Mario Perez on 05-17-2024 Potassium [Moles/Vol] 3.9 mmol/L Normal 3.5-5.1 [facility] Comment on above: Order Comment: FASTI NG. JKW Performed By: #### P ILLAR TSH, PILLAR CBC, PILLAR BMP, PILLAR LIPID #### [facility] [address] [place] [address] Serum or plasma anion gap de terminationOrdered By: Mario Perez on 05-17-2024 Anion gap [Moles/Vol] 7.2 mmol/L Normal 6.0-15.0 [facility] Comment on above: Order Comment: FASTI NG. JKW Performed By: #### P ILLAR TSH, PILLAR CBC, PILLAR BMP, PILLAR LIPID #### [facility] [address] [place] [address] Serum or plasma high density lipoprotein (HDL) [...] PILLAR CBC, PILLAR BMP, PILLAR LIPID #### [facility] [address] [place] [address] [place] Serum or plasma total choles terol/high density lipoprotein (HDL) cholesterol mass ratOrdered By: Mario Perez on 05-17-2024 Cholesterol.total/Chol esterol in HDL [Mass ratio] 3.3 {ratio} Normal <5.0 [facility] Comment on above: Order Comment: RONNIE PEPEW Performed By: #### P ILLAR TSH, PILLAR CBC, PILLAR BMP, PILLAR LIPID #### [facility] [address] [place] [address] [place] Sodium [Moles/volume] in Ser um or PlasmaOrdered By: Mairo Perez on 05-17-2024 Sodium [Moles/Vol] 140 mmol/L Normal 136-145 [facility] Comment on above: Order Comment: RONNIE PEPEW Performed By: #### P ILLAR TSH, PILLAR CBC, PILLAR BMP, PILLAR LIPID #### [facility] [address] Thyrotropin [Units/volume] i n Serum or [...] Urea nitrogen [Mass/Vol] 15 mg/dL Normal 7-25 [facility] Comment on above: Order Comment: RONNIE GRIMALDO Performed By: #### P ILLAR TSH, PILLAR CBC, PILLAR BMP, PILLAR LIPID #### [facility] [address] Alanine aminotransferase [En zymatic activity/volume] in [...] on 07-12-2023 Bilirubin [Mass/Vol] 0.4 mg/dL 0.3-1.0 [facility] Calcium [Mass/volume] in Ser um or PlasmaOrdered By: Mario Perez on 07-12-2023 Calcium [Mass/Vol] 8.9 mg/dL 8.6-10.3 [facility] Carbon dioxide, total [Moles /volume] in Serum or PlasmaOrdered By: Mario Perez on 07-12-2023 CO2 [Moles/Vol] 28.7 mmol/L 21.0-31.0 [facility] Chloride [Moles/volume] in S eamon or PlasmaOrdered By: Mario Perez on 07-12-2023 Chloride [Moles/Vol] 106 mmol/L 98-107 [facility] Cholesterol [Mass/volume] in Serum or PlasmaOrdered By: Mario Perez on 07-12-2023 Cholesterol [Mass/Vol] 194 mg/dL 140-200 [facility] Comment on above: Chol less than [...] Cholesterol in VLDL Calc [Ma ss/Vol]Ordered By: Mairo Perez on 07-12-2023 Cholesterol in VLDL [Mass/Vol] 12 mg/dL [facility] Creatinine [Mass/volume] in Serum or PlasmaOrdered By: Mario Perez on 07-12-2023 Creatinine [Mass/Vol] 0.78 mg/dL 0.60-1.20 [facility] Globulin Calc (S) [Mass/Vol] Ordered By: Mario Perez on 07-12-2023 Globulin (S) [Mass/Vol] 2.2 g/dL [facility] Glucose [Mass/volume] in Ser um or PlasmaOrdered By: Mario Perez on 07-12-2023 Glucose [Mass/Vol] 99 mg/dL 70-100 [facility] No Panel InformationOrdered By: Mario Perez on 07-12-2023 Estimated GFR (CKD-EPI) > 60.0 mL/Min [facility] Creatinine Clearance (Chem N/A [facility] Potassium [Moles/volume] in Serum or PlasmaOrdered By: Mario Perez on 07-12-2023 Potassium [Moles/Vol] 4.3 mmol/L 3.5-5.1 [facility] Protein [Mass/volume] in Ser um or PlasmaOrdered By: Mario Perez on 07-12-2023 Protein [Mass/Vol] 6.4 g/dL 6.4-8.9 [facility] Serum or plasma albumin/glob ulin mass ratioOrdered By: Mario Perez on 07-12-2023 Albumin/Globulin [Mass ratio] 1.9 {ratio} [facility] Serum or plasma anion gap de terminationOrdered By: Mario Perez on 07-12-2023 Anion gap [Moles/Vol] 8.6 mmol/L 6.0-15.0 [facility] Serum or plasma high density lipoprotein [...] on 07-12-2023 Sodium [Moles/Vol] 139 mmol/L 136-145 [facility] Triglyceride [Mass/volume] i n Serum or [...] on 07-12-2023 Urea nitrogen [Mass/Vol] 13 mg/dL - [facility] Human papilloma virus 16+18+ 31+33+35+39+45+51+52+56+58+59+66+68 DNA [Presence] in CerOrdered By: MARISSA GARCIA on 12-15-2022 HPV 16+18+31+33+35+39+45+5 1+52+56+58+59+66+68 DNA Probe+sig amp Ql (Cvx) Negative Negative [facility] Comment on above: This nucleic acid am plification test detects fourteen high- risk HPV types (16,18,31,33,35,39,45,51,52,56,58,59,66,68)without differentiation.Performed at: [facility] - [facility] [id number] Director: Azalea Quezada MD, Phone: [phone] at: =G - [facility] [address], [place] [id number] Director: Azalea Quezada MD, Phone: [phone] No Panel InformationOrdered By: MARISSA GARCIA on [...] (endocervical component) are present.Performed by: Balbir Garcia, Avionics System Engineer (ASCP). 01Note: Note 01 The Pap smear [...] Low,>-Panic High,A-Abnormal,AA-Critical Abnormal -----Performed at:01 [facility] [place] [address] [place] [address] Azalea Quezada MD, Albumin [Mass/volume] in Ser um or PlasmaOrdered By: Marianela Oliva on 06-26-2022 Albumin [Mass/Vol] 3.8 g/dL 3.2-5.5 [facility] Basophils Auto (Bld) [#/Vol] Ordered By: Marianela Oliva on 06-26-2022 Basophils (Bld) [#/Vol] 0.0 10*3/uL 0.0-0.2 [facility] Basophils/100 WBC Auto (Bld) Ordered By: Marianela Oliva on 06-26-2022 Basophils/100 WBC (Bld) 0.7 % . [facility] Cholesterol [Mass/volume] in Serum or PlasmaOrdered By: Marianela Oliva on 06-26-2022 Cholesterol [Mass/Vol] 177 mg/dL 140-200 [facility] Comment on above: Chol less than [...] on 06-26-2022 Creatinine [Mass/Vol] 0.77 mg/dL 0.44-1.03 [facility] Eosinophils Auto (Bld) [#/Vo l]Ordered By: [...] on 06-26-2022 Glucose [Mass/Vol] 98 mg/dL 70-100 [facility] Laboratory - Hematology and Cell countsOrdered By: Marianela Oliva on 06-26-2022 Nucleated RBC/100 WBC (Bld) [Ratio] 0.0 % 0-0.5 [facility] Leukocytes [#/volume] in Blo od by Automated countOrdered By: Marianela Oliva on 06-26-2022 WBC (Bld) [#/Vol] 4.3 10*3/uL 4.5-11.0 [facility] Lymphocytes Auto (Bld) [#/Vo l]Ordered By: Marianela Oliva on 06-26-2022 Lymphocytes (Bld) [#/Vol] 1.5 10*3/uL 1.00-4.8 [facility] Lymphocytes/100 WBC Auto (Bl d)Ordered By: Marianela Oliav on 06-26-2022 Lymphocytes/100 WBC (Bld) 35.2 % . [facility] MCH Auto (RBC) [Entitic mass ]Ordered By: Marianela Oliva on 06-26-2022 MCH (RBC) [Entitic mass] 27.3 pg 24.7-34.3 [facility] MCHC Auto (RBC) [Mass/Vol]Or dered By: Marianela Oliva on 06-26-2022 MCHC (RBC) [Mass/Vol] 33.7 g/dL 32.0-35.0 [facility] MCV Auto (RBC) [Entitic vol] Ordered [...] [facility] Center Comment on above: Performed at: [address] [id number] Director: George García MD, Phone: [phone] Pharmacy Creatinine Clearance (Chem N/A [facility] [...] on 06-26-2022 Protein [Mass/Vol] 6.1 g/dL 6.1-7.9 [facility] RBC Auto (Bld) [#/Vol]Ordere d By: [...] 06-26-2022 Anion gap [Moles/Vol] 8.1 mmol/L 6.0-15.0 [facility] Serum or plasma aspartate am inotransferase measurement (enzymatic activity/volume)Ordered By: Marianela Oliva on 06-26-2022 AST [Catalytic activity/Vol] 18 U/L 10-42 [facility] Serum or plasma calcium richy urement (mass/volume)Ordered By: Marianela Oliva on 06-26-2022 Calcium [Mass/Vol] 9.0 mg/dL 8.2-10.2 [facility] Serum or plasma chloride alma surement (moles/volume)Ordered By: Marianela Oliva on 06-26-2022 Chloride [Moles/Vol] 106 mmol/L 95-114 [facility] Serum or plasma high density lipoprotein [...] on 06-26-2022 Potassium [Moles/Vol] 4.1 mmol/L 3.5-5.1 [facility] Serum or plasma sodium measu rement (moles/volume)Ordered By: Marianela Oliva on 06-26-2022 Sodium [Moles/Vol] 137 mmol/L 136-146 [facility] Serum or plasma total biliru bin measurement (mass/volume)Ordered By: Marianela Oliva on 06-26-2022 Bilirubin [Mass/Vol] 0.6 mg/dL 0.3-1.2 [facility] Serum or plasma total carbon dioxide measurement (moles/volume)Ordered By: Marianela Oliva on 06-26-2022 CO2 [Moles/Vol] 27.0 mmol/L 22.0-30.0 [facility] Serum or plasma total choles terol/high density lipoprotein (HDL) cholesterol mass ratOrdered By: Marianela Oliva on 06-26-2022 Cholesterol.total/Chol esterol in HDL [Mass ratio] 3.6 {ratio} <5.0 [facility] Serum or plasma urea nitroge n measurement (mass/volume)Ordered By: aMrianela Oliva on 06-26-2022 Urea nitrogen [Mass/Vol] 14 mg/dL 07-10 [facility] TSH DL <= 0.005 mIU/L QnOrde red By: Marianela Oliva on 06-26-2022 TSH Qn 1.33 m[IU]/L 0.45-5.33 [facility] Dipstick & Microscopicon Dipstick & Microscopic No rt [facility] Other Urine 10 SGon 01-07-2022 Albumin DL <= 20 mg/L (U) [Mass/Vol] 100 mg/dL [facility] Other Albumin DL <= 20 mg/L (U) [Mass/Vol] Large [facility] Other pH (U) 6.0 [pH] [facility] Other Urine 10 SG Negative [facility] Other Urine 10 SG 1.030 [facility] Other Urine 10 SG Large [facility] Other Urine 10 SG 0.2 [facility] Other Urine 10 SG Positive [facility] Other Urine Cultureon 01-07-2022 Urine Culture >100,000 [facility] Other Urine Culture <16 Susceptible [email or web address] Other Urine Culture <8 Susceptible [email or web address] Other Urine Culture <4 Susceptible [email or web address] Other Urine Culture <2 Susceptible [email or web address] Other Urine Culture <1 Susceptible [email or web address] Other Urine Culture <0.5 Susceptible [email or web address] Other Urine Culture <32 Susceptible [email or web address] Other Urine Culture <2/38 [email or web address] Other Cult,Urine,CCon 12-24-2018 Cult,Urine,CC Specimen Description .URINE Special Requests .CLEAN CATCH URINE Culture NO GROWTH Report Status FINAL 12/24/2018 Normal [facility] Comment on above: Performed By: #### C PDAU #### [address] [place] [address] Chlamydia/GC DNA, Uron 12-23 Protein mass conc Negative Normal NEG [facility] Comment on above: Result Comment: NEIS [...] target. Performed By: #### C PDAU #### [address] [place] [address] Result Comment: CHLA MYDIA TRACHOMATIS DNA [...] Ag/Abon 12-23-2018 HIV Ag/Ab NONREACTIVE Normal NR [facility] Comment on above: Result Comment: No l aboratory evidence of HIV infection. If acute HIV infection is suspected, consider testing for HIV-1 RNA. Performed By: #### C PDAU #### [address] [place], [place] [id number] [phone] Hep C Abon 12-23-2018 Hep C Ab NONREACTIVE Normal [facility] Comment on above: Result [...] PCR. Performed By: #### C PDAU #### [address] [place] [address] Profileon 9 T.pallidum Ab Screen NONREACTIVE Normal [facility] Comment on above: Result Comment: T. pallidum antibodies are not detected. There is no serological evidence of infection with T. pallidum (early primary syphilis cannot be excluded). Retest in 2-4 weeks if syphilis is clinically suspect. Performed By: #### C PDAU #### [address] [address] Hep B Surf Ag NONREACTIVE Normal [facility] Comment on above: Performed By: #### C PDAU #### [address] [place] [address] Rubella Ab, IgG 52.3 IU/mL Normal [facility] Comment on above: Result Comment: REFERENCE RANGE: <5.0 NON-REACTIVE (non-immune) 5.0 TO 9.9 EQUIVOCAL >=10.0 REACTIVE (immune) Performed By: #### C PDAU #### [address] [place] [address] Profileon 9 Abs. Basophil <0.03 Normal 0.00-0.20 [facility] Comment on above: Performed By: #### C PDAU #### [address] [place], [place] [address] Abs.Imm.Granulocyte 0.04 k/uL Normal 0.00-0.30 [facility] Comment on above: Performed By: #### C PDAU #### [address] [place], [place] [address] Abs.Neutrophil (Seg) 4.44 k/uL Normal 1.50-8.10 [facility] Comment on above: Performed By: #### C PDAU #### [address] [place] [address] Basophils/100 WBC (Bld) 0 % Normal 0-2 [facility] Comment on above: Performed By: #### C PDAU #### [address] [place] [address] Eosinophils #/vol (Bld) 0.08 10*3/uL Normal 0.00-0.44 [facility] Comment on above: Performed By: #### C PDAU #### [address] [place], [place] [address] Eosinophils/100 WBC (Bld) 1 % Normal 1-4 [facility] Comment on above: Performed By: #### C PDAU #### [address] [place] [address] Erythrocyte distribution width Ratio (RBC) 13.2 % Normal 11.8-14.4 [facility] Comment on above: Performed By: #### C PDAU #### [address] [place] [address] Hematocrit Volume Fraction (Bld) 35.3 % Low 36.3-47.1 [facility] Comment on above: Performed By: #### C PDAU #### [address] [place] [address] Hemoglobin mass conc (Bld) 11.4 g/dL Low 11.9-15.1 [facility] Comment on above: Performed By: #### C PDAU #### [address] [place] [address] Immature granulocytes #/vol (Bld) 1 % High 0 [facility] Comment on above: Performed By: #### C PDAU #### [address] [place] [address] Lymphocytes #/vol (Bld) 1.70 10*3/uL Normal 1.10-3.70 [facility] Comment on above: Performed By: #### C PDAU #### [address] [place] [address] Lymphocytes/100 WBC (Bld) 25 % Normal 24-43 [facility] Comment on above: Performed By: #### C PDAU #### [address] [place] [address] MCH Entitic mass (RBC) 26.5 pg Normal 25.2-33.5 [facility] Comment on above: Performed By: #### C PDAU #### [address] [place] [address] MCHC mass conc (RBC) 32.3 g/dL Normal 28.4-34.8 [facility] Comment on above: Performed By: #### C PDAU #### [address] [place] [address] MCV Entitic volume (RBC) 82.1 fL Low 82.6-102.9 [facility] Comment on above: Performed By: #### C PDAU #### [address] [place] [address] Monocytes #/vol (Bld) 0.66 10*3/uL Normal 0.10-1.20 [facility] Comment on above: Performed By: #### C PDAU #### [address] [place] [address] Monocytes/100 WBC (Bld) 10 % Normal 3-12 [facility] Comment on above: Performed By: #### C PDAU #### [address] [place] [address] Neutrophil (Seg) 63 % Normal 36-65 [facility] Comment on above: Performed By: #### C PDAU #### [address] [place] [address] NRBC Automated 0.0 per 100 WBC Normal 0.0 [facility] Comment on above: Performed By: #### C PDAU #### [address] [place] [address] Platelet mean volume Entitic volume (Bld) 10.8 fL Normal 8.1-13.5 [facility] Comment on above: Performed By: #### C PDAU #### [address] [place] [address] Platelets #/vol (Bld) 298 10*3/uL Normal 138-453 [facility] Comment on above: Performed By: #### C PDAU #### [address] [place] [address] RBC #/vol (Bld) 4.30 10*6/uL Normal 3.95-5.11 [facility] Comment on above: Performed By: #### C PDAU #### [address] [place] [address] WBC #/vol (Bld) 6.9 10*3/uL Normal 3.5-11.3 [facility] Comment on above: Performed By: #### C PDAU #### [address] [place] [address] Auto Diff Performed NOT REPORTED Normal [facility] Comment on above: Performed By: #### C PDAU #### [address] [place] [address] Platelets #/vol (Bld) NOT REPORTED Normal [facility] Comment on above: Performed By: #### C PDAU #### [address] [place] [address] RBC morphology finding Nom (Bld) NOT REPORTED Normal [facility] Comment on above: Performed By: #### C PDAU #### [address] [place] [address] WBC Morphology NOT REPORTED Normal [facility] Comment on above: Performed By: #### C PDAU #### [address] [place] [address] Type + Scrnon 12-22 Type + Scrn Negative Normal [facility] Comment on above: Performed By: #### C PDAU #### [address] [place] [address] Toxicology Scree, Urineon Amphetamine(s),Ur Negative Normal NEG [facility] Comment on above: Performed By: #### C PDAU #### [address] [place] [address] Barbiturate(s),Ur Negative Normal NEG [facility] Comment on above: Performed By: #### C PDAU #### [address] [place] [address] Benzodiazepine(s) Negative Normal NEG [facility] Comment on above: Performed By: #### C PDAU #### [address] [place] [address] Buprenorphrine, Ur Negative Normal NEG [facility] Comment on above: Performed By: #### C PDAU #### [address] [place] [address] Cannabinoid(s),Ur Negative Normal NEG [facility] Comment on above: Performed By: #### C PDAU #### [address] [place] [address] Cocaine Metabolite Negative Normal [facility] Comment on above: Performed By: #### C PDAU #### [address] [place] [address] Methadone Ql (U) Negative Normal NEG [facility] Comment on above: Performed By: #### C PDAU #### [address] [place] [address] Methamphetamine, Ur Negative Normal [facility] Comment on above: Performed By: #### C PDAU #### [address] [place] [address] Opiate(s), Ur Negative Normal NEG [facility] Comment on above: Performed By: #### C PDAU #### [address] [place] [address] Oxycodone, Urine Negative Normal [facility] Comment on above: Performed By: #### C PDAU #### [address] [place] [address] Phencyclidine, Ur Negative Normal NEG [facility] Comment on above: Performed By: #### C PDAU #### [address] [place] [address] Protein mass conc (U) Negative Normal NEG [facility] Comment on above: Performed By: #### C PDAU #### [address] [place] [address] Tricyclic antidepressants Screen Ql (U) Negative Normal [facility] Comment on above: Result Comment: Drug screen results are to be used for medical purposes only. All positive results are unconfirmed. Testing for employment or legal uses should be sent to a reference laboratory for confirmation. Performed By: #### C PDAU #### [address] [place] [address] Interpretive Info NOT REPORTED Normal [facility] Comment on above: Performed By: #### C PDAU #### [address] [place] [address] MDMA, Urine NOT REPORTED Normal NEG [facility] Comment on above: Performed By: #### C PDAU #### [address] [place] [address] Coding Summary.on 12-11-2018 Coding Summary. CODING DATE: 019 [facility] STATUS: Home (Routine DC) PAYOR: Commercial [...] CphT Date Saved: 12/11/2018 09:36 am Normal [facility] US 1st Trimesteron 12-09-2018 US 1st Trimester [...] Transvaginal Ultrasound Performed Size = Dates Normal [facility] US Transvaginalon 12-09-2018 US Transvaginal Exam Date/Time: 12/09/2018 15:15 EST Reason for Exam: nausea hx of molar Report Please refer to ultrasound transabdominal first trimester report. FINAL REPORT Dictated: 12/09/2018 3:50 pm Aurelia Mullen MD Signed (Electronic Signature): 12/09/2018 3:50 pm Signed by: Aurelia Mullen MD Transcribed by: DARWIN Technologist: ADARSH Normal [facility] Progress Noteon 03-24-2018 HIM IP Note OR Tube Filler Normal [facility] HCG, Quanton 03-22-2018 HCG, Quant 64 IU/L High <5 [facility] Comment on above: Result Comment: Non-preg premeno <=5 Postmeno <=8 Male <=3 If HCG results do not concur with clinical observations, additional testing to confirm result is recommended. This test is not labeled for use as a tumor marker. Performed at [address] [place] [address] Performed By: #### C PDAU #### [address] [place] [address] HCG, Quanton 03-15-2018 HCG, Quant 613 IU/L High <5 [facility] Comment on above: Result Comment: Non-preg premeno <=5 Postmeno <=8 Male <=3 If HCG results do not concur with clinical observations, additional testing to confirm result is recommended. This test is not labeled for use as a tumor marker. Performed at [address] [place] [address] Performed By: #### C PDAU #### [address] [place] [id number] OPERATIVE REPORTon 8 OPERATIVE REPORT [address] [facility] [place] [address] OPERATIVE REPORT PATIENT NAME: NORIS GOETZ : 1990 MED REC NO: [id number] ROOM: ACCOUNT NO: [id number] ADMIT DATE: 03/09/2018 PROVIDER: Chau Sorenson DATE [...] be correct. Of note, she will receive [place]cad[place] 5/325 for any postoperative cramping, and I have ordered an hCG to be repeated in approximately one week. CHAU SORENSON [id number] Doc#: [id number] CC: Marianela Oliva [facility] Surgical Pathologyon 018 Surgical Pathology (NOTE) [id number] [facility] CONSULTING PATHOLOGISTS [facility] ANATOMIC PATHOLOGY [address] [place] [address]. [place], [place] [address] SURGICAL PATHOLOGY CONSULTATION Patient Name: NORIS GOETZ [facility] Rec: [id number] Path Number: [id number] Collected: 03/09/2018 Received: 03/10/2018 Reported: 03/11/2018 14:53 -- Diagnosis -- DANDC suction tissues: Products of conception, negative for molar changes. Adelfo Cox Electronically Signed Out rdd/03/11/2018 Clinical Information Pre-op Diagnosis: MOLAR (POSSIBLE PER SURGERY) Operative Findings: PRODUCTS OF CONCEPTION Operation Performed: DILATATION AND CURETTAGE SUCTION, DANDE Source of Specimen 1: PRODUCTS OF CONCEPTION Gross Description NORIS GOETZ, PRODUCTS OF CONCEPTION Multiple fragments of pink-garica soft tissue admixed with blood clots, 7.0 x 6.0 x 1.8 cm in aggregate. No embryo or placental tissue is grossly identified. Cystic structures are not evident. Acid Recovery Operator sections are submitted between sponges in A-H. tm Microscopic Description Most of the submitted tissue consists of blood clot and decidua with foci of necrosis and acute inflammation. Portions of endometrium show gestational change. There are rare immature, small avascular placental villi and a few associated syncytiotrophoblasts. Histologic changes to suggest gestational trophoblastic disease are absent. Normal [facility] Progress Noteon 03-08-2018 HIM IP Note OR Tube Filler Normal [facility] Chlamydia/GC DNA, Uron 03-07 Protein mass conc Negative Normal NEG [facility] Comment on above: Result Comment: NEIS SERIA GONORRHOEAE DNA not detected by nucleic acid amplification. Performed at [address] [id number] ([phone] Performed By: #### U CGP #### [address] [address] Result Comment: CHLA MYDIA TRACHOMATIS DNA not detected by nucleic acid amplification. HCG, Quanton 03-07-2018 HCG, Quant 82910 IU/L High <5 [facility] Comment on above: Result Comment: Non-preg premeno <=5 Postmeno <=8 Male <=3 If HCG results do not concur with clinical observations, additional testing to confirm result is recommended. This test is not labeled for use as a tumor marker. Performed at [address] [place] [address] ([phone] Performed By: #### B HCG #### [address] [place] [address] RHIG, Transfuseon 03-07-2018 RHIG, Transfuse Unit Number [id number] /45 Blood Component Type RHIG Unit Division 00 Status of Unit TRANSFUSED Transfusion Status OK TO TRANSFUSE Performed at [address] [place] [address] ([phone] Normal [facility] Comment on above: Performed By: #### T RHIG #### [address] [place] [address] Cult,Urine,CCon 03-05-2018 Cult,Urine,CC Specimen Description .URINE Performed at [address] [place] [address] Special Requests CCMS Performed at [address] [place] [address] Culture NO SIGNIFICANT GROWTH Performed at [address] [address] Report Status FINAL 03/04/2018 Normal [facility] Comment on above: Performed By: #### C INNA #### [address] [place] [id number] HIV Ag/Abon 03-04-2018 HIV Ag/Ab NONREACTIVE Normal NR [facility] Comment on above: Result Comment: No l aboratory evidence of HIV infection. If acute HIV infection is suspected, consider testing for HIV-1 RNA. Performed at [address] [address] Performed By: #### H IVCMB #### [address] [address] Hep C Abon 03-04-2018 Hep C Ab NONREACTIVE Normal NR [facility] Comment on above: Result Comment: [...] ordering HCV RNA by PCR. Performed at [address] [address] Performed By: #### A HCV #### [address] [address] Profileon 05-18-201 8 T.pallidum Ab Screen NONREACTIVE Normal NR [facility] Comment on above: Result Comment: T. pallidum antibodies are not detected. There is no serological evidence of infection with T. pallidum (early primary syphilis cannot be excluded). Retest in 2-4 weeks if syphilis is clinically suspect. Performed at [address] [address] Performed By: #### P RENAT #### [address] [address] Hep B Surf Ag NONREACTIVE Normal NR [facility] Comment on above: Performed By: #### P RENAT #### [address] [address] Rubella Ab, IgG 65.7 IU/mL Normal [facility] Comment on above: Result Comment: REFERENCE RANGE: <5.0 NON-REACTIVE (non-immune) 5.0 TO 9.9 EQUIVOCAL >=10.0 REACTIVE (immune) Performed By: #### P RENAT #### [address] [address] Toxicology Scree, Urineon Amphetamine(s),Ur Negative Normal NEG [facility] Comment on above: Performed By: #### C PDAU #### [address] [place] [address] Barbiturate(s),Ur Negative Normal NEG [facility] Comment on above: Performed By: #### C PDAU #### [address] [place] [address] Benzodiazepine(s) Negative Normal NEG [facility] Comment on above: Performed By: #### C PDAU #### [address] [place] [address] Buprenorphrine, Ur Negative Normal NEG [facility] Comment on above: Result Comment: Perf ormed at [address] [place] [address] Performed By: #### C PDAU #### [address] [place] [address] Cannabinoid(s),Ur Negative Normal NEG [facility] Comment on above: Performed By: #### C PDAU #### [address] [place] [address] Cocaine Metabolite Negative Normal NEG [facility] Comment on above: Performed By: #### C PDAU #### [address] [place] [address] Methadone Ql (U) Negative Normal [facility] Comment on above: Performed By: #### C PDAU #### [address] [place] [address] Methamphetamine, Ur Negative Normal NEG [facility] Comment on above: Performed By: #### C PDAU #### [address] [place] [address] Opiate(s), Ur Negative Normal [facility] Comment on above: Performed By: #### C PDAU #### [address] [place] [address] Oxycodone, Urine Negative Normal [facility] Comment on above: Performed By: #### C PDAU #### [address] [place] [address] Phencyclidine, Ur Negative Normal NEG [facility] Comment on above: Performed By: #### C PDAU #### [address] [place] [address] Protein mass conc (U) Negative Normal NEG [facility] Comment on above: Performed By: #### C PDAU #### [address] [place] [address] Tricyclic antidepressants Screen Ql (U) Negative Normal NEG [facility] Comment on above: Result Comment: Drug screen results are to be used for medical purposes only. All positive results are unconfirmed. Testing for employment or legal uses should be sent to a reference laboratory for confirmation. Performed By: #### C PDAU #### [facility] [address] [place] [address] Profileon 8 Abs. Basophil 0.05 k/uL Normal 0.00-0.20 [facility] Comment on above: Performed By: #### P RENAT #### [address] [address] Abs.Imm.Granulocyte 0.04 k/uL Normal 0.00-0.30 [facility] Comment on above: Performed By: #### P RENAT #### [address] [address] Abs.Neutrophil (Seg) 5.60 k/uL Normal 1.50-8.10 [facility] Comment on above: Performed By: #### P RENAT #### [address] [address] Basophils/100 WBC (Bld) 1 % Normal 0-2 [facility] Comment on above: Performed By: #### P RENAT #### [address] [address] Eosinophils #/vol (Bld) 0.18 10*3/uL Normal 0.00-0.44 [facility] Comment on above: Performed By: #### P RENAT #### [address] [address] Eosinophils/100 WBC (Bld) 2 % Normal 1-4 [facility] Comment on above: Performed By: #### P RENAT #### [address] [address] Erythrocyte distribution width Ratio (RBC) 13.0 % Normal 11.8-14.4 [facility] Comment on above: Performed By: #### P RENAT #### [address] [address] Hematocrit Volume Fraction (Bld) 39.1 % Normal 36.3-47.1 [facility] Comment on above: Performed By: #### P RENAT #### [address] [address] Hemoglobin mass conc (Bld) 12.6 g/dL Normal 11.9-15.1 [facility] Comment on above: Performed By: #### P RENAT #### [address] [address] Immature granulocytes #/vol (Bld) 1 % High 0 [facility] Comment on above: Performed By: #### P RENAT #### [address] [address] Lymphocytes #/vol (Bld) 2.18 10*3/uL Normal 1.10-3.70 [facility] Comment on above: Performed By: #### P RENAT #### [address] [address] Lymphocytes/100 WBC (Bld) 25 % Normal 24-43 [facility] Comment on above: Performed By: #### P RENAT #### [address] [address] MCH Entitic mass (RBC) 26.9 pg Normal 25.2-33.5 [facility] Comment on above: Performed By: #### P RENAT #### [address] [address] MCHC mass conc (RBC) 32.2 g/dL Normal 28.4-34.8 [facility] Comment on above: Performed By: #### P RENAT #### [address] [address] MCV Entitic volume (RBC) 83.4 fL Normal 82.6-102.9 [facility] Comment on above: Performed By: #### P RENAT #### [address] [address] Monocytes #/vol (Bld) 0.79 10*3/uL Normal 0.10-1.20 [facility] Comment on above: Performed By: #### P RENAT #### [address] [address] Monocytes/100 WBC (Bld) 9 % Normal 3-12 [facility] Comment on above: Performed By: #### P RENAT #### [address] [address] Neutrophil (Seg) 62 % Normal 36-65 [facility] Comment on above: Performed By: #### P RENAT #### [address] [address] NRBC Automated 0.0 per 100 WBC Normal 0.0 [facility] Comment on above: Performed By: #### P RENAT #### [address] [address] Platelet mean volume Entitic volume (Bld) 11.2 fL Normal 8.1-13.5 [facility] Comment on above: Performed By: #### P RENAT #### [address] [address] Platelets #/vol (Bld) 243 10*3/uL Normal 138-453 [facility] Comment on above: Performed By: #### P RENAT #### [address] [address] RBC #/vol (Bld) 4.69 10*6/uL Normal 3.95-5.11 [facility] Comment on above: Performed By: #### P RENAT #### [address] [place] [address] WBC #/vol (Bld) 8.8 10*3/uL Normal 3.5-11.3 [facility] Comment on above: Performed By: #### P RENAT #### [address] [address] Auto Diff Performed NOT REPORTED Normal [facility] Comment on above: Performed By: #### P RENAT #### [address] [address] Platelets #/vol (Bld) NOT REPORTED Normal [facility] Comment on above: Performed By: #### P RENAT #### [address] [address] RBC morphology finding Nom (Bld) NOT REPORTED Normal [facility] Comment on above: Performed By: #### P RENAT #### [address] [address] WBC Morphology NOT REPORTED Normal [facility] Comment on above: Performed By: #### P RENAT #### [address] [address] Type + Scrnon 03-03 Type + Scrn ABO/Rh(D) B NEGATIV E Antibody Screen NEGATIVE Performed at [address] [place] [address] Normal [facility] Comment on above: Performed By: #### P RTYS #### [address] [place] [address] Progress Noteon 03-03-2018 HIM IP Note OR Tube Filler Normal [facility] Toxicology Scree, Urineon Interpretive Info NOT REPORTED Normal [facility] Comment on above: Performed By: #### C PDAU #### [address] [place] [address] MDMA, Urine NOT REPORTED Normal NEG [facility] Comment on above: Performed By: #### C PDAU #### [address] [place] [address] Hep Bs Abon 01-22-2018 HBV surface Ab Ql (S) Reactive Fis her [facility] Comment on above: Result Comment: Non Reactive: Inconsistent with immunity, less than 10 mIU/mL Reactive: Consistent with immunity, greater than 9.9 mIU/mL Performed at: [facility] [id number] PhD Sumeet Merrill Performed By: #### 2 [id number], [id number] #### [facility] [address] [place] [address] Varic IgGon 01-22-2018 VZV IgG IA Qn (S) 574 Immune >165 [facility] Comment on above: Result Comment: Nega tive <135 Equivocal 135 - 165 Positive >165 A positive result generally indicates exposure to the pathogen or administration of specific immunoglobulins, but it is not indication of active infection or stage of disease. Performed at: [facility] [address] [id number] PhD Sumeet Merrill Performed By: #### 2 [id number] #### [facility] [address] [place] [address] Progress Noteon 11-18-2017 HIM IP Note OR Tube Filler Normal [facility] Vital Signs Date Time Vital Sign Value Performing Clinician Facility 07-05-2025 09:48-0400 Body mass index (BMI) [Ratio] 35.55 kg/m2 [employer] Work Phone: [facility] 07-05-2025 09:48-0400 Body weight 106.05 kg [employer] Work Phone: [facility] 07-05-2025 09:48-0400 Diastolic blood pressure 78 mm[Hg] [employer] Work Phone: [facility] 07-05-2025 09:48-0400 Systolic blood pressure 110 mm[Hg] Yasmani Kaylen DO Work Phone: [facility] 06-21-2025 09:54-0400 Body mass index (BMI) [Ratio] 35.12 kg/m2 Yasmani Kaylen DO Work Phone: [facility] 06-21-2025 09:54-0400 Body weight 104.78 kg Yasmani Kaylen DO Work Phone: [facility] 06-21-2025 09:54-0400 Diastolic blood pressure 72 mm[Hg] Yasmani Kaylen DO Work Phone: [facility] 06-21-2025 09:54-0400 Systolic blood pressure 124 mm[Hg] Yasmani Kaylen DO Work Phone: [facility] 06-12-2025 08:32-0400 Body height 170.18 cm [...] kg/m2 Yasmani Kaylen DO Work Phone: [facility] 06-07-2025 10:26-0400 Body weight 104.83 kg Yasmani Kaylen DO Work Phone: [facility] 06-07-2025 10:26-0400 Diastolic blood pressure 70 mm[Hg] Yasmani Kaylen DO Work Phone: [facility] 06-07-2025 10:26-0400 Systolic blood pressure 112 mm[Hg] Yasmani Kaylen DO Work Phone: [facility] 05-22-2025 11:13-0400 Body mass index (BMI) [Ratio] 34.64 kg/m2 Yasmani Kaylen DO Work Phone: [facility] 05-22-2025 11:13-0400 Body weight 103.33 kg Yasmani Kaylen DO Work Phone: [facility] 05-22-2025 11:13-0400 Diastolic blood pressure 72 mm[Hg] Yasmani Kaylen DO Work Phone: [facility] 05-22-2025 11:13-0400 Systolic blood pressure 110 mm[Hg] Yasmani Kaylen DO Work Phone: [facility] 05-10-2025 08:31-0400 Body mass index (BMI) [Ratio] 34.25 kg/m2 Yasmani Kaylen DO Work Phone: [facility] 05-10-2025 08:31-0400 Body weight 102.17 kg Yasmani Kaylen DO Work Phone: [facility] 05-10-2025 08:31-0400 Diastolic blood pressure 78 mm[Hg] Yasmani Kaylen DO Work Phone: [facility] 05-10-2025 08:31-0400 Systolic blood pressure 124 mm[Hg] Yasmani Kaylen DO Work Phone: [facility] 04-10-2025 10:38-0400 Body mass index (BMI) [Ratio] 33.88 kg/m2 Yasmani Kaylen DO Work Phone: [facility] 04-10-2025 10:38-0400 Body weight 101.06 kg Yasmani Kaylen DO Work Phone: [facility] 04-10-2025 10:38-0400 Diastolic blood pressure 68 mm[Hg] Yasmani Kaylen DO Work Phone: [facility] 04-10-2025 10:38-0400 Systolic blood pressure 108 mm[Hg] Yasmani Kaylen DO Work Phone: [facility] 03-15-2025 10:00-0400 Body mass index (BMI) [Ratio] 33.27 kg/m2 Yasmani Kaylen DO Work Phone: [facility] 03-15-2025 10:00-0400 Body weight 99.25 kg Yasmani Kaylen DO Work Phone: [facility] 03-15-2025 10:00-0400 Diastolic blood pressure 70 mm[Hg] Yasmani Kaylen DO Work Phone: [facility] 03-15-2025 10:00-0400 Systolic blood pressure 110 mm[Hg] Yasmani Kaylen DO Work Phone: [facility] 02-15-2025 09:37-0400 Body mass index (BMI) [Ratio] 32.96 kg/m2 Yasmani Kaylen DO Work Phone: [facility] 02-15-2025 09:37-0400 Body weight 98.34 kg Yasmani Kaylen DO Work Phone: [facility] 02-15-2025 09:37-0400 Diastolic blood pressure 70 mm[Hg] Yasmani Kaylen DO Work Phone: [facility] 02-15-2025 09:37-0400 Systolic blood pressure 110 mm[Hg] Yasmani Kaylen DO Work Phone: [facility] 01-18-2025 09:45-0400 Body mass index (BMI) [Ratio] 32.1 kg/m2 Yasmani Kaylen DO Work Phone: [facility] 01-18-2025 09:45-0400 Body weight 95.77 kg Yasmani Kaylen DO Work Phone: [facility] 01-18-2025 09:45-0400 Diastolic blood pressure 80 mm[Hg] Yasmani Kaylen DO Work Phone: [facility] 01-18-2025 09:45-0400 Systolic blood pressure 100 mm[Hg] Yasmani Kaylen DO Work Phone: [facility] 12-06-2024 09:47-0500 Heart rate 75 /min [...] Body height 170.18 cm Regina Missler Other [employer] [facility] [employer] Other 01-07-2022 12:45-0400 Body temperature 98.9 [degF] Regina Missler Other [employer] Other 01-07-2022 12:45-0400 Diastolic blood pressure 81 mm[Hg] Regina Missler Other [employer] Other 01-07-2022 12:45-0400 Respiratory rate 18 /min Regina Missler Other [employer] Other 01-07-2022 12:45-0400 SaO2% (BldA) [Mass fraction] Regina Huddleston Other [employer] Other 01-07-2022 12:45-0400 Systolic blood pressure 121 mm[Hg] Regina Huddleston Other [employer] Other Encounters Encounter Date Encounter Type Care Provider Facility Start: 07-09-2025 End: 07-09-2025 flow sheet Yasmani Kaylen DO Work Phone: [facility] Comment on above: Third trimester preg lisa ([facility]) Start: 07-09-2025 End: 07-09-2025 ambulatory YASMANI KAYLEN Not Available Start: 07-09-2025 End: 07-09-2025 Bamboo flowsheet Yasmani Kaylen DO Work Phone: [facility] Start: 07-09-2025 End: 07-09-2025 Bamboo flowsheet Yasmani Kaylen DO Work Phone: [facility] Start: 07-05-2025 End: 07-05-2025 Bamboo flowsheet Yasmani Kaylen DO Work Phone: [facility] Start: 07-05-2025 End: 07-05-2025 Bamboo flowsheet Yasmani Kaylen DO Work Phone: [facility] Start: 07-05-2025 End: 07-05-2025 flow sheet Yasmani Kaylen DO Work Phone: [facility] Comment on above: 36 weeks gestation o f ([facility]); Third trimester ([facility] Multigravida of advanced maternal age in third trimester ([facility]); History of molar ; Antepartum multigravida of advanced maternal age ([facility]) Start: 07-05-2025 End: 07-05-2025 ambulatory YASMANI [...] Comment on above: Third trimester preg lisa ([facility]); 34 weeks gestation of ([facility]); Multigravida of advanced maternal age in third trimester ([facility]) Start: 06-21-2025 End: 06-21-2025 ambulatory YASMANI KAYLEN Not Available Start: 06-19-2025 End: 06-19-2025 Clinisync Result Encounter Yasmani Kaylen DO Work Phone: [facility] Unsolicited Start: 06-19-2025 End: 06-19-2025 Clinisync Result Encounter Yasmani Kaylen DO Work Phone: [facility] Unsolicited Start: 06-12-2025 End: 06-12-2025 ambulatory Marianela Oliva MD Work Phone: [facility] Work Phone: Start: 06-12-2025 End: 06-12-2025 Patient encounter procedure Marianela Oliva MD -[facility] Work Phone: Start: 06-07-2025 End: 06-07-2025 Bamboo flowsheet Yasmani Kaylen DO Work Phone: [facility] [place] [facility] Start: 06-07-2025 End: 06-07-2025 Bamboo flowsheet Yasmani Kaylen DO Work Phone: [facility] Start: 06-07-2025 End: 06-07-2025 flow sheet Yasmani Kaylen DO Work Phone: [facility] [place] [facility] Comment on above: Third trimester preg lisa ([facility]); 32 weeks gestation of ([facility]); Multigravida of advanced maternal age in third trimester ([facility]) Start: 06-07-2025 End: 06-07-2025 ambulatory YASMANI KAYLEN Not Available Start: 05-22-2025 End: 05-22-2025 flow sheet Yasmani Kaylen DO Work Phone: [facility] Comment on above: 30 weeks gestation o f ([facility]); Third trimester ([facility]); Antepartum multigravida of advanced maternal age ([facility]); Gestational diabetes mellitus (GDM), antepartum, gestational diabetes method of control unspecified ([facility]) Start: 05-22-2025 End: 05-22-2025 ambulatory YASMANI KAYLEN Not Available Start: 05-10-2025 End: 05-10-2025 Bamboo flowsheet Yasmani Kaylen DO Work Phone: [facility] Start: 05-10-2025 End: 05-10-2025 Bamboo flowsheet Yasmani Kaylen DO Work Phone: [facility] Start: 05-10-2025 End: 05-10-2025 flow sheet Yasmani Kaylen DO Work Phone: [facility] Comment on above: size consisten t with dates, antepartum ([facility]) (Primary Dx); Third trimester ([facility]); 28 weeks gestation of ([facility]); Antepartum multigravida of advanced maternal age ([facility]) Start: 05-10-2025 End: 05-10-2025 ambulatory YASMANI KAYLEN Not Available Start: 04-10-2025 End: 04-10-2025 Bamboo flowsheet Yasmani Kaylen DO Work Phone: [facility] Start: 04-10-2025 End: 04-10-2025 Bamboo flowsheet Yasmani Kaylen DO Work Phone: [facility] Start: 04-10-2025 End: 04-10-2025 flow sheet Yasmani Kaylen DO Work Phone: [facility] Comment on above: Second trimester pre gnancy ([facility]); 24 weeks gestation of ([facility]); Diabetes mellitus screening Start: 04-10-2025 End: 04-10-2025 ambulatory YASMANI KAYLEN Not Available Start: 04-02-2025 End: 04-02-2025 Departed Referred Mario Valle DO [facility] Start: 04-02-2025 End: 04-02-2025 ambulatory Mario Perez - [facility] Facility:[facility] Start: 03-15-2025 End: 03-15-2025 flow sheet Yasmani Kaylen DO Work Phone: [facility] Comment on above: 20 weeks gestation o f ; Second trimester ; Anxiety, generalized ([facility]) Start: 03-15-2025 End: 03-15-2025 ambulatory AYSMANI KAYLEN Not Available Start: 03-15-2025 End: 03-15-2025 ambulatory YASMANI KAYLEN Not Available Start: 03-14-2025 End: 03-14-2025 External Result Encounter Yasmani Kaylen DO Work Phone: [facility] Unsolicited Start: 03-14-2025 End: 03-14-2025 External Result Encounter Yasmani Kaylen DO Work Phone: [facility] Unsolicited Start: 03-14-2025 End: 03-14-2025 Patient encounter procedure Marianela Oliva MD Work Phone: [facility] Start: 03-14-2025 End: 03-14-2025 ambulatory Marianela Oliva MD Work Phone: [facility] Work Phone: Start: 02-15-2025 End: 02-15-2025 [...] / Non-visit Marianela Oliva MD [facility] Phone[facility] [...] encounter procedure Marianela Oliva MD Work Phone: [facility] Start: 12-27-2024 End: 12-27-2024 ambulatory Marianela Oliva MD Work Phone: [facility] Work Phone: Start: 12-21-2024 End: 12-21-2024 ambulatory YASMANI KAYLEN Not Available Start: 12-07-2024 Non-patient / Non-visit [facility]iva MD [facility] Work [facility]: Start: 12-06-2024 End: 12-06-2024 Emergency department patient visit Marianela Oliva MD Work Phone: [facility]-Emergency Room Work Phone: Start: 12-05-2024 End: 12-05-2024 Telephone encounter Yasmani Kaylen DO Work Phone: [facility] Start: 08-15-2024 Patient encounter status Pooja Oliva MD Work Phone: [facility] Start: 08-15-2024 End: 08-15-2024 ambulatory MD Marianela Oliva Work Phone: [facility] Work Phone: Start: 08-15-2024 End: 08-15-2024 Patient encounter procedure MD Marianela Oliva Work Phone: [facility] Work Phone: Start: 08-11-2024 End: 08-11-2024 ambulatory MD Marianela Oliva Work Phone: [facility] Work Phone: Start: 08-11-2024 End: 08-11-2024 Patient encounter procedure MD Marianela Oliva Work Phone: [facility] Work Phone: Start: 08-01-2024 End: 08-01-2024 ambulatory MD Marianela Oliva Work Phone: [facility] Work Phone: Start: 08-01-2024 End: 08-01-2024 Departed Referred MD Marianela Oliva Work Phone: [facility] Work Phone: Start: 05-23-2024 End: 05-23-2024 Patient encounter procedure MD Marianela Oliva Work Phone: [facility] Work Phone: Start: 05-23-2024 End: 05-23-2024 ambulatory MD Marianela Oliva Work Phone: [facility] Work Phone: Start: 05-18-2024 End: 05-18-2024 ambulatory MD Marianela Oliva Work Phone: [facility] Work Phone: Start: 05-18-2024 End: 05-18-2024 Patient encounter procedure MD Marianela Oliva Work Phone: [facility] Work Phone: Start: 05-17-2024 End: 05-17-2024 Departed Referred MD Marianela Oliva Work Phone: [facility] Start: 05-17-2024 End: 05-17-2024 ambulatory MD Marianela Oliva Work Phone: [facility] Work Phone: Start: 07-12-2023 End: 07-12-2023 ambulatory MD Marianela Oliva Work Phone: [facility] Work Phone: Start: 07-12-2023 End: 07-12-2023 Departed Referred MD Marianela Oliva Work Phone: [facility]-Employee Benefit Screening Start: 02-23-2023 End: 02-23-2023 ambulatory MD Marianela Oliva Work Phone: [facility] Work Phone: Start: 02-23-2023 End: 02-23-2023 Patient encounter procedure MD Marianela Oliva Work Phone: [facility] Work Phone: Start: 02-04-2023 End: 02-04-2023 ambulatory Marianela Oliva Other [employer] Other Start: 02-04-2023 Office outpatient vi sit 15 minutes Marianela Oliva [facility] Start: 02-04-2023 Telephone encounter Marianela Oliva [facility] Start: 01-29-2023 End: 01-29-2023 ambulatory Marianela Oliva Other [facility] [employer] Other Start: 01-29-2023 Telephone encounter Marianela Oliva [facility] Start: 12-15-2022 End: 12-15-2022 Departed Referred MD Marianela Oliva Work Phone: [facility] Work Phone: Start: 12-04-2022 End: 12-04-2022 ambulatory Marianela Oliva Other [employer] Other Start: 12-04-2022 Telephone encounter Marianela Oliva [facility] Start: 11-10-2022 End: 11-10-2022 ambulatory MD Marianela Oliva Work Phone: [facility] Work Phone: Start: 11-10-2022 End: 11-10-2022 Departed Referred MD Marianela Oliva Work Phone: [facility] Work Phone: Start: 08-07-2022 End: 08-07-2022 ambulatory Regina Huddleston Other [employer] Other Start: 08-07-2022 Telephone encounter Regina Huddleston [facility] Start: 06-26-2022 End: 06-26-2022 ambulatory MD Marianela Oliva Work Phone: [facility] Work Phone: Start: 06-26-2022 End: 06-26-2022 Departed Referred MD Marianela Oliva Work Phone: [facility]-Employee Benefit Screening Start: 01-07-2022 End: 01-07-2022 ambulatory Regina Huddleston Other [employer] Other Start: 01-07-2022 Patient encounter procedure Regina Huddleston [facility] Start: 12-22-2018 End: 12-23-2018 [facility] Start: 12-09-2018 End: 12-10-2018 Patient encounter procedure [facility]AU [facility] Start: 06-14-2018 Patient encounter MARIANELA OLIVA Fac ility:[facility] Start: 03-22-2018 End: 03-23-2018 Patient encounter procedure CHAU Mcclain [facility] Start: 03-15-2018 End: 03-16-2018 Patient encounter procedure CHAU Mcclain [facility] Start: 03-09-2018 End: 03-09-2018 Patient encounter procedure CHAU W [facility] Start: 03-07-2018 End: 03-08-2018 Patient encounter procedure CHAU Mcclain [facility] Start: 03-03-2018 End: 03-04-2018 Patient encounter procedure CHAU Mcclain [facility] Start: 03-03-2018 End: 03-03-2018 Patient encounter procedure CHAU Mcclain [facility] Start: 01-20-2018 End: 01-21-2018 Patient encounter procedure Macario Jarvis [place] [place] Date Procedure Procedure Detail Performing Clinician Start: 07-09-2025 Urnls dip stick/tabl et rgnt non-auto w/o micrscp Yasmani Kaylen DO Work Phone: Start: 07-05-2025 Urnls dip stick/tabl et rgnt non-auto w/o micrscp Yasmani Kaylen DO Work Phone: Start: 07-04-2025 US OB BPP W NON-STRESS Yasmani Kaylen DO Work Phone: Start: 06-27-2025 OB BPP W NON-STRESS Yasmani Kaylen DO [...] Phone: Start: 12-27-2024 Antibody screen Mario Khalil [facility] Comment on above: Order Comment: NONFA STING.JKW Result Comment: PERF ORMED BY: [facility] [address] [place] [address] [employer] LEÓN GARCIA M.D. Start: 12-06-2024 Diagnostic ultrasoun d of gravid uterus Marianela Oliva MD Work Phone: Start: 08-11-2024 Plain chest X-ray MD Heavenly Oliva Work Phone: Start: 05-23-2024 Ultrasonography of limb MD Marianela Oliva Work Phone: Start: 02-23-2023 Screening mammograph y of bilateral breasts MD Marianela Oilva Work Phone: Start: 01-07-2022 Piperacillin/tazobactam Regina Huddleston Other Start: 12-22-2018 Antibody hiv-1&hiv-2 single result CH[facility] ASTONTrenton Start: 12-22-2018 Hepatitis c antibody WE ARTIS CLANCYTrenton Start: 12-22-2018 C.TRACHOMATIS N.GONO RRHOEAE DNA, URINE [facility]ONT[facility]on Start: 12-22-2018 Obstetric panel [facility]ONT[facility]on Start: 12-22-2018 TYPE AND SCREEN CHAU SORENSON Start: 12-22-2018 Culture bacterial quanttative colony count urine [facility]ONT[facility] Start: 12-22-2018 Drug screen, qualitate/multi [facility] Start: 03-22-2018 Gonadotropin chorion ic quantitative [facility]ONT[facility]on Start: 03-15-2018 Gonadotropin chorion ic quantitative [facility]ONT[facility]on Start: 03-09-2018 TYPE AND SCREEN [facility]ONT[facility]on Start: 03-09-2018 SURGICAL PATHOLOGY JUAN DAVIDL EY BRITTNI Start: 03-09-2018 DISCHARGE PATIENT LORELEI SORENSON Start: 03-09-2018 ASSESS CHAU BARCENAS GES Start: 03-09-2018 BEDREST CHAU BARCENAS GES Start: 03-09-2018 Continuous pulse oximetry [facility]ONT[facility]on Start: 03-09-2018 INITIATE OXYGEN THER APY PROTOCOL [facility] ASTONT[facility]on Start: 03-09-2018 NEURO/VASCULAR CHECKS W DENG SORENSON Start: 03-09-2018 DIET NPO, NOW CHAU RASHID DGES Start: 03-09-2018 MEASURE WEIGHT CHAU Tucker BERNADETTE Start: 03-09-2018 NOTIFY PHYSICIAN (SPECIFY) CHAU SORENSON [...] End: 08-28-2025 ambulatory [facility] Start: 07-19-2025 End: 07-19-2025 Patient encounter procedure 07/19/2025 9:50 AM EDT Routine [facility] [address] [place] [id number] Lanie Mendez, POLYSOMNOGRAPHER [address] [place] [phone] [facility] Start: 07-12-2025 End: 07-12-2025 Patient encounter procedure 07/12/2025 9:10 AM EDT Routine [facility] [address] [place] [address] Lanie Mendez, POLYSOMNOGRAPHER [address] [place] [address] [facility] Start: 07-09-2025 End: 07-09-2025 Patient encounter procedure [facility] Comment on above: Arrived Start: 07-05-2025 End: 07-05-2026 CULTURE, GROUP B STREP WITH SUSCEPTIBLITY CULTURE, GROUP B STREP WITH SUSCEPTIBLITY Lab Routine Third trimester ([facility]) Expected: 07/05/2025, Expires: 07/05/2026 [facility] Work Phone: Comment on above: Expected: 07/05/2025 , Expires: 07/05/2026 Start: 07-05-2025 End: 07-05-2025 Patient encounter procedure [facility] Comment on above: Arrived Start: 06-21-2025 End: 06-21-2025 Patient encounter procedure 06/21/2025 9:40 AM EDT Routine [facility] [address] [facility] [place] [phone] Yasmani Abdullahi DO [address] [place] [address] [facility] Start: 06-21-2025 End: 06-21-2025 Professional / ancillary services management 06/21/2025 9:00 AM EDT Ancillary Procedure [facility] [address] [facility] [place] [address] [facility] Start: 06-07-2025 End: 12-08-2025 US biophysical profile w non stress test US biophysical profile w non stress test Imaging Routine Multigravida of advanced maternal age in third trimester ([facility]) Expected: 06/07/2025 (Approximate), Expires: 12/08/2025 [facility] Work Phone: Comment on above: Expected: 06/07/2025 (Approximate), Expires: 12/08/2025 Start: 06-07-2025 End: 06-07-2025 Patient encounter procedure [facility] Comment on above: Arrived Start: 05-22-2025 End: 05-22-2025 Patient encounter procedure 05/22/2025 11:00 AM EDT Routine [facility] [address] [facility] [place] [address] Yasamni Abdullahi, DO [address] [place], [place] [id number] [facility] Start: 05-22-2025 End: 05-22-2025 Professional / ancillary services management 05/22/2025 10:30 AM EDT Ancillary Procedure [facility] [address] [place] [address] [facility] Start: 05-10-2025 End: 09-10-2025 US for US OB follow up transabdominal approach Imaging Routine Antepartum multigravida of advanced maternal age ([facility]) Expected: 05/10/2025, Expires: 09/10/2025 [facility] Work Phone: Comment on above: Expected: 05/10/2025 , Expires: 09/10/2025 Start: 05-10-2025 End: 05-10-2025 Patient encounter procedure [facility] Comment on above: Arrived Start: 04-10-2025 End: 04-10-2026 CBC panel - Blood by Automated count CBC Lab Routine Diabetes mellitus screening Expected: 04/10/2025 (Approximate), Expires: 04/10/2026 [facility] Work Phone: Comment on above: Expected: 04/10/2025 (Approximate), Expires: 04/10/2026 Start: 04-10-2025 End: 04-10-2026 Measurement of glucose 1 hour after glucose challenge for glucose tolerance test Glucose tolerance, 1 hour Lab Routine Diabetes mellitus screening Expected: 04/10/2025 (Approximate), Expires: 04/10/2026 [facility] Comment on above: Expected: 04/10/2025 (Approximate), Expires: 04/10/2026 Start: 04-10-2025 End: 04-10-2025 Patient encounter procedure [facility] Comment on above: Arrived Start: 03-15-2025 End: 03-15-2025 Patient encounter procedure 03/15/2025 9:50 AM EDT Routine [facility] [address] [place] [address] Yasmani Abdullahi, DO [address] [facility] [address] [place] [address] [place] [address] [facility] Start: 03-15-2025 End: 03-15-2025 Professional / ancillary services management 03/15/2025 8:30 AM EDT Ancillary Procedure [facility] [address] [place] [phone] [facility] Start: 02-15-2025 End: 03-18-2025 [...] AM EDT Routine [facility] [address] [facility] [place] [address] Yasmani Abdullahi, DO [address] [place] [address] Arrived [facility] Comment on above: Arrived Start: 12-27-2024 Bacteria identified in Urine by Culture Urine Culture [facility] Start: 12-27-2024 Rubella IgG measurement [facility] Start: 12-27-2024 Urine culture [facility] Start: 12-27-2024 [facility] Start: 12-21-2024 End: 12-21-2024 ambulatory 12/21/2024 1:30 PM EST Initial [facility] [address] [place] [address] [facility] Start: 12-21-2024 End: 12-21-2024 Professional / ancillary services management 12/21/2024 1:00 PM EST Ancillary Procedure [facility] [address] [place] [address] [facility] Start: 12-06-2024 Diagnostic ultrasoun d of gravid uterus [facility] Start: 07-12-2023 [facility] CHLAMYDIA TRACHOMATI S (GENITO/STI) CHLAMYDIA TRACHOMATIS (GENITO/STI) Lab Routine Exposure to STD 16 weeks gestation of Second trimester Ordered: 02/15/2025 [facility] Comment on above: Ordered: 02/15/2025 Cytology Cervical or vaginal smear or scraping study Pap Smear Pathology and Cytology Routine Well woman exam with routine gynecological exam Ordered: 02/15/2025 [facility] Comment on above: Ordered: 02/15/2025 Hepatitis [...] with routine gynecological exam Ordered: 02/15/2025 [facility] Comment on above: Ordered: 02/15/2025 Measurement of gluco se 1 hour after glucose challenge for glucose tolerance test GTT, 1 hour Lab Routine Antepartum multigravida of advanced maternal age Ordered: 01/18/2025 [facility] Work Phone: Comment on above: Ordered: 01/18/2025 Neisseria gonorrhoea e DNA [Presence] in Unspecified specimen by CORBY with probe detection Neisseria gonorrhea DNA probe, direct Lab Routine Exposure to STD 16 weeks gestation of Second trimester Ordered: 02/15/2025 [facility] Comment on above: Ordered: 02/15/2025 Patient Education Stomach Pain i n Early [facility] Work Phone: Patient referral [facility] Work Phone: Reagin Ab [Presence] in Serum by RPR [facility] SURESWAB(R) ADVANCED VAGINITIS PLUS, TMA SUREAB(R) ADVANCED VAGINITIS PLUS, TMA Pathology and Cytology Routine Vaginal discharge Exposure to STD 16 weeks gestation of Second trimester Ordered: 02/15/2025 [facility] Work Phone: Comment on above: Ordered: 02/15/2025 [facility] Immunizations Immunization Date Immunization Notes Care Provider Fa cility 06-23-2019 tetanus toxoid, redu christen diphtheria toxoid, and acellular pertussis vaccine, adsorbed MD Marianela Oliva Work Phone: [facility] Payers Date Payer Category Payer Unknown [id number] [id number] Self-pay [id number] 2018 Unknown [id number] 2018 Private Health Insurance 2014 Unknown [id number] 1989 Unknown [id number] 2.16.84 0.1.522448.3.579.2.727 1989 Unknown [id number] 2.16.8 40.1.003769.3.579.2.173 1989 Unknown [id number] 2.16.8 40.1.910421.3.579.2.173 1989 Unknown [id number] 2.16.8 40.1.521964.3.579.2.173 1989 Unknown [id number] 2.16.8 40.1.530452.3.579.2.173 1989 Unknown [id number] 2.16.8 40.1.025481.3.579.2.173 1989 Unknown [id number] 2.16.8 40.1.903276.3.579.2.173 1989 Unknown [id number] 2.16.8 40.1.170951.3.579.2.173 1989 Unknown [id number] 2.16.8 40.1.848958.3.579.2.173 1989 Unknown [id number] 2.16.8 40.1.794556.3.579.2.1258 1989 Unknown [id number] 2.16.8 40.1.259775.3.579.2.9 1989 Unknown [id number] 2.16.8 40.1.197276.3.579.2.1258 1989 Unknown [id number] 2.16.8 40.1.504607.3.579.2.1258 1989 Unknown [id number] 2.16.8 40.1.891849.3.579.2.1258 1989 Unknown [id number] 2.16.8 40.1.291844.3.579.2.1258 1989 Unknown [id number] 2.16.8 40.1.343646.3.579.2.1258 1989 Unknown [id number] 2.16.8 40.1.628922.3.579.2.1258 1989 Unknown [id number] 2.16.8 40.1.738301.3.579.2.1258 1989 Unknown [id number] 2.16.84 0.1.468022.3.579.2.1258 1989 Unknown [id number] 2.16.84 0.1.102728.3.579.2.1258 1989 Unknown [id number] 2.16.84 0.1.830976.3.579.2.1258 1989 Unknown [id number] 2.16.84 0.1.169724.3.579.2.1258 1989 Unknown [id number] 2.16.84 0.1.488568.3.579.2.1259 1989 Unknown [id number] 2.16.84 0.1.919084.3.579.2.1259 1959 Private Health Insurance [facility] [id number] Unknown [id number] 2.16.8 40.1.647156.3.579.2.531 Unknown [id number] 2.16.8 40.1.275156.3.579.2.531 Unknown [id number] 2.16.8 40.1.730157.3.579.2.531 Unknown [id number] 2.16.8 40.1.321413.3.579.2.531 Unknown [id number] 2.16.8 40.1.882480.3.579.2.531 Unknown [id number] 2.16.8 40.1.279336.3.579.2.531 Unknown [id number] 2.16.8 40.1.447976.3.579.2.531 Unknown [id number] 2.16.8 40.1.091015.3.579.2.531 Social History Date Type Detail Facility Unknown if ever smoked [facility] [employer] Other Start: 01-27-2024 End: 12-21-2024 Sex Assigned At [facility] Other Start: 06-22-2019 End: 01-26-2024 Tobacco smoking status NJIS Never smoked tobacco (finding) [facility] Start: 1990 Sex Assigned At Female [facility] Start: 01-26-2024 Tobacco use and exposure Smokeless tobacco non-user [facility] Start: 01-27-2024 End: 07-05-2025 Alcoholic beverage intake Current drinker of alcohol (finding) [facility] Start: 01-27-2024 End: 12-21-2024 History of Social function [facility] Start: 01-27-2024 Gender identity Identifies as female gender (finding) [facility] Start: 01-27-2024 Sexual orientation Heterosexual (finding) [...] meal for a total of 4times daily. [id number] Start: 02-15-2025 End: 03-17-2025 1 each by In Vit ro route Daily Use to check FSBS four times daily [id number] Start: 02-15-2025 End: 03-17-2025 Use as instructed [id number] Start: 04-09-2025 End: 04-09-2026 1 each by In Vit ro route Daily [id number] Start: 04-09-2025 End: 05-09-2025 Clinical Notes 12-16-2021 to 07-09-2025 Lanie Mendez, POLYSOMNOGRAPHER - 07/09/2025 4:10 PM EDTSusan Spitler, TRANSPORTATION INSPECTOR - 07/05/2025 9:50 AM EDTSusan Spitler, TRANSPORTATION INSPECTOR - 06/21/2025 9:40 AM EDTSusan Spitler, TRANSPORTATION INSPECTOR - 06/07/2025 9:50 AM EDT Note Date & Type Note Facility 07-09-2025 History of Presen t illness Narrative Reason [...] nursing note reviewed. Exam conducted with a pole classifier present. Vitals: Estimated body mass index is [...] Abdullahi DO documented in this encounter [facility] 07-05-2025 History of Presen t illness Narrative [...] nursing note reviewed. Exam conducted with a pole classifier present. Vitals: Estimated body mass index is 35.55 kg/m as calculated from the following: Height as of 12/15/22: 5' 8 . Weight as of this encounter: 233 lb 12.8 oz. BP: 110/78 Patient's last menstrual period was 10/21/2024. ASSESSMENT & PLAN ICD-10-CM 1. 36 weeks gestation of ([facility]) Z3A.36 POCT urinalysis dipstick manually resulted 2. Third trimester ([facility]) Z34.93 POCT urinalysis dipstick manually resulted CULTURE, GROUP B STREP WITH SUSCEPTIBLITY CULTURE, GROUP B STREP WITH SUSCEPTIBLITY 3. Multigravida of advanced maternal age in third trimester ([facility]) O09.523 4. History of molar Z87.59 5. Antepartum multigravida of advanced maternal age ([facility]) O09.529 Patient is doing well but [...] Abdullahi DO documented in this encounter [facility] 06-21-2025 History of Presen t illness [...] nursing note reviewed. Exam conducted with a pole classifier present. Vitals: Estimated body mass index is 35.12 kg/m as calculated from the following: Height as of 12/15/22: 5' 8 . Weight as of this encounter: 231 lb. BP: 124/72 Patient's last menstrual period was 10/21/2024. ASSESSMENT & PLAN ICD-10-CM 1. Third trimester ([facility]) Z34.93 POCT urinalysis dipstick manually resulted 2. 34 weeks gestation of ([facility]) Z3A.34 3. Multigravida of advanced maternal age in third trimester ([facility]) O09.523 Patient presents today for a [...] Abdullahi DO documented in this encounter [facility] 06-07-2025 History of Presen t illness [...] nursing note reviewed. Exam conducted with a pole classifier present. Vitals: Estimated body mass index is 35.14 kg/m as calculated from the following: Height as of 12/15/22: 5' 8 . Weight as of this encounter: 231 lb 1.9 oz. BP: 112/70 Patient's last menstrual period was 10/21/2024. ASSESSMENT & PLAN ICD-10-CM 1. Third trimester ([facility]) Z34.93 POCT urinalysis dipstick manually resulted 2. 32 weeks gestation of ([facility]) Z3A.32 POCT urinalysis dipstick manually resulted 3. Multigravida of advanced maternal age in third trimester ([facility]) O09.523 US biophysical profile w non stress test Patient presents today for a routine obstetrics appointment. Patient is currently 32w5d with a Estimated Date of Delivery: 10/11/25. Patient given orders for NST/BPP's to be started until delivery. Orders will also be sent to [facility] and [facility]. Patient to return to clinic in 2 weeks. Documented by Eugenia Bridges LPN on behalf of: Yasmani Abdullahi DO documented in this encounter [facility] 05-22-2025 History of Presen t illness [...] nursing note reviewed. Exam conducted with a pole classifier present. Vitals: Estimated body mass index is 34.64 kg/m as calculated from the following: Height as of 12/15/22: 5' 8 . Weight as of this encounter: 227 lb 12.8 oz. BP: 110/72 Patient's last menstrual period was 10/21/2024. ASSESSMENT & PLAN ICD-10-CM 1. 30 weeks gestation of ([facility]) Z3A.30 POCT urinalysis dipstick manually resulted 2. Third trimester ([facility]) Z34.93 POCT urinalysis dipstick manually resulted 3. Antepartum multigravida of advanced maternal age ([facility]) O09.529 POCT urinalysis dipstick manually resulted 4. Gestational diabetes mellitus (GDM), antepartum, gestational diabetes method of control unspecified ([facility]) O24.419 POCT urinalysis dipstick manually resulted Return [...] Abdullahi DO documented in this encounter [facility] 05-10-2025 History of Presen t illness [...] History: Diagnosis Date Anxiety Melanoma ([facility]) 2021 HISTORY PAST MEDICAL HISTORY SOCIAL HISTORY Past Medical History: Diagnosis Date Anxiety Melanoma ([facility]) 2021 on chest Social History Tobacco Use [...] nursing note reviewed. Exam conducted with a pole classifier present. Vitals: Estimated body mass index is 34.25 kg/m as calculated from the following: Height as of 12/15/22: 5' 8 . Weight as of this encounter: 225 lb 4 oz. BP: 124/78 Patient's last menstrual period was 10/21/2024. ASSESSMENT & PLAN ICD-10-CM 1. size consistent with dates, antepartum ([facility]) Z34.90 US OB follow up transabdominal approach 2. Third trimester ([facility]) Z34.93 POCT urinalysis dipstick manually resulted 3. 28 weeks gestation of ([facility]) Z3A.28 Patient presents today for a routine obstetrics appointment. Patient is currently 28w5d with a Estimated Date of Delivery: 07/28/25. Patient to return to clinic in 2 weeks for return OB and Growth US. Patient is going to [facility] after this appointment to receive her Rhogam injection. Patient will call office with any concerns or questions in the meantime. Documented by Eugenia Bridges LPN on behalf of: Yasmani Abdullahi DO documented in this encounter [facility] 04-10-2025 History of Presen t illness [...] nursing note reviewed. Exam conducted with a pole classifier present. Vitals: Estimated body mass index is 33.88 kg/m as calculated from the following: Height as of 12/15/22: 5' 8 . Weight as of this encounter: 222 lb 12.8 oz. BP: 108/68 Patient's last menstrual period was 10/21/2024. ASSESSMENT & PLAN ICD-10-CM 1. Second trimester ([facility]) Z34.92 POCT urinalysis dipstick manually resulted 2. 24 weeks gestation of ([facility]) Z3A.24 POCT urinalysis dipstick manually resulted [...] Abdullahi DO documented in this encounter [facility] 03-15-2025 History of Presen t illness [...] to check FSBS. Blood Glucose Monitoring Suppl (D-RF Code Glucometer) w/Device kit 1 kit, Does not [...] nursing note reviewed. Exam conducted with a pole classifier present. Vitals: Estimated body mass index is [...] CBC drawn yesterday. Patient was provided with client engagement manager email to send FSBS results & more forms we given to patient to track sugars. Patient to RTC in 4 weeks for routine OB care. Documented by Eugenia Bridges LPN on behalf of: Yasmani Abdullahi DO documented in this encounter [facility] 02-15-2025 History of Presen t illness [...] nursing note reviewed. Exam conducted with a pole classifier present. Vitals: Estimated body mass index is [...] Abdullahi DO documented in this encounter [facility] 01-18-2025 History of Presen t illness [...] Past Medical History: Diagnosis Date Anxiety Melanoma ([facility]) 2021 HISTORY PAST MEDICAL HISTORY SOCIAL HISTORY [...] nursing note reviewed. Exam conducted with a pole classifier present. Vitals: Estimated body mass index is [...] or undercooked meat, and stay away from [facility]. Patient has been consulted regarding any [...] to AMA. Discussed level II ultrasound through [facility] and patient defers at this time [...] Abdullahi DO documented in this encounter [facility] 12-05-2024 Telephone encount er Note Pt is OB and scheduled for intake in December. She called with complaints of kidney pain and left abd pain. Per nurse patient advised to be evaluated at Hospital. [facility]. She also had questions about Zoloft during . Pt transferred to nurse to discuss. [facility] 12-05-2024 Miscellaneous Notes Formattin g of [...] to discuss. documented in this encounter [facility] 02-04-2023 Evaluation note Encounter Date Diagnosis Assessment Notes Jan, Family history of BRCA gene mutation (ICD-10 - Z84.81) Discussed family history. Pt would like to be checked. She has weighed the risks and benefits and states she would be interested in a B mastectomy if indicated. After calling [employer], the decision was to fax lab order to [facility]. Order handwritten. Jan, Family history of breast cancer (ICD-10 - Z80.3) Mamm ordered. Jan, Screening mammogram for breast cancer (ICD-10 - Z12.31) [facility] Other 10-21-2022 Evaluation note* Encounter Date Diagnosis Assessment Notes Treatment Notes Treatment Clinical Notes Jul, Strep pharyngitis (ICD-10 - J02.0) [facility] Other 03-23-2022 Evaluation note* Encounter Date Diagnosis [...] were not corrected during the review process. [facility] Other 03-01-2022 History general Narrative - Reported* Type Description Date Medical History post pardom depression Surgical History wisdom teeth Surgical History D&C Surgical History melanoma excision 12/16/21 Hospitalization History child x4 [facility] Other 03-01-2022 History general Narrative - Reported* Type Description Date Medical History post pardom depression Medical History Anxiety, generalized Surgical History wisdom teeth Surgical History D&C Surgical History melanoma excision 12/16/21 Hospitalization History child x4 Hospitalization History see surgical hx [facility] Other evaluation noteNo assessment information available [facility] Work Phone: evaluation noteNo [facility] [employer] Other Evaluation note* Diagnosis Onset Date Resolution Status Mass of skin of chest acute [facility] Work Phone: Evaluation note* Diagnosis Onset Date Resolution Status Mass of skin of chest acute Right lower lobe pneumonia n [employer] [facility] Work Phone: Evalucthjx note* Diagnosis First trimester state, incidental 12 weeks gestation of Antepartum multigravida of advanced maternal age documented in this encounter [facility]* Diagnosis Well woman exam with routine gynecological exam Routine gynecological examination Vaginal discharge Leukorrhea, not specified as infective Exposure to STD 16 weeks gestation of Second trimester state, incidental Screening, , for anatomic survey Encounter for anatomic survey Sterilization consult Other general counseling and advice for contraceptive management Glucose found in urine on examination Glycosuria documented in this encounter [facility]* Diagnosis 20 weeks gestation of Second trimester state, incidental Anxiety, generalized (CMS/HCC) documented in this encounter [facility]* Diagnosis Second trimester (HHS-HCC) state, incidental 24 weeks gestation of (HHS-HCC) Diabetes mellitus screening Screening for diabetes mellitus documented in this encounter [facility]* Diagnosis size consistent with dates, [...] note* Diagnosis Third trimester (HHS-HCC) state, incidental [facility] Additional Instructions If your symptoms return/worsen or you develop any further concerns or symptoms please see your doctor or return to the emergency department immediately. As discussed please be sure to follow-up with your [facility] and primary care provider. If you develop worsening pain, vaginal bleeding, fevers, other symptoms as we discussed please return the emergency department for reevaluation.[facility] Work Phone: Reason for referral (narrative)No reason for referral information [facility] Work Phone: Summary Purpose Family History [...] section and content) DATE CREATED AUTHOR 04/05/2018 [facility] DATE CREATED AUTHOR AUTHOR'S ORGANIZ ATION 06/15/2018 [facility] DATE CREATED AUTHOR AUTHOR'S ORGANIZ ATION 12/15/2018 [facility] DATE CREATED AUTHOR AUTHOR'S ORGANIZ ATION 12/25/2018 [facility] DATE CREATED AUTHOR AUTHOR'S ORGANIZ ATION 04/03/2025 [facility] DATE CREATED AUTHOR AUTHOR'S ORGANIZ ATION 07/10/2025 [facility] d[facility] Specialists EPIC REASON FOR VISIT (unrecogniz ed section and content) Reason Comments Routine Visit Care Teams (unrecognized sec tion and content) Team Status: Inactive Member Role Status Dates Marianela Oliva MD Primary Care Provider Active Mario Perez DO [facility] Attending Provider Active Team Status: Active Member Role Status Radha Oliva MD Primary Care Provider Active Team Status: Inactive Member Role Status Radha Oliva MD Primary Care Provider Active Derrick Wilson MD Attending Provider Active Team Status: Inactive Member Role Status Radha Oliva MD Primary Care Provider, Attending P theresa Active Team Status: Inactive Member Role Status Radha Oliva MD Primary Care Provider Active Marissa Garcia DO Attending Provider Active Team Status: Inactive Member Role Status Radha Oliva MD Primary Care Provider Active Start: May 17, 2024 End: May 17, 2024 Mario BALL DO [facility] Attending Provider Active Start: May 17, 2024 End: May 17, 2024 Team Status: Inactive Member Role Status Radha Oliva MD Primary Care Provide r, Attending Provider Active Start: May 18, 2024 End: May 18, 2024 Team Status: Inactive Member Role Status Radha Oliva MD Primary Care Provide r, Attending [...] Team Status: Inactive Member Role Status Radha Reddy APRN Attending Provider Active Sta rt: [...] Team Status: Inactive Member Role Status Radha Oliva MD Primary Care Provider Active Start: August 11, 2024 End: August 11, 2024 Melissa Reddy APRN Attending Provider Active Sta rt: August 11, 2024 End: August 11, 2024 Team Status: Inactive Member Role Status Dates Marianela Oliva MD Primary Care Provide r, Attending Provider Active Start: August 15, 2024 End: August 15, 2024 Petroleum Inspector 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 Specialty Start Date End Date Marianela Oliva MD [address] [facility] [place] [address] PCP - General Family Medicine 01/27/24 [...] December 27, 2024 End: December 27, 2024 Petroleum Inspector 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 Specialty Start Date End Date Marianela Oliva MD [address] [facility] [place] [address] PCP - General Family Medicine 01/27/24 Petroleum Inspector 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 Specialty Start Date End Date Marianela Oliva MD [address] [facility] [place] [address] PCP - General Family Medicine 01/27/24 Petroleum Inspector 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 Specialty Start Date End Date Marianela Oliva MD PCP - General Family Medicine 01/27/24 Petroleum Inspector 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 Specialty Start Date End Date Marianela Oliva MD PCP - General Family Medicine 01/27/24 Petroleum Inspector 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 Specialty Start Date End Date Marianela Oliva MD PCP - General Family Medicine 01/27/24 Petroleum Inspector 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 Specialty Start Date End Date Marianela lOiva MD PCP - General Family Medicine 01/27/24 Petroleum Inspector 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 Specialty Start Date End Date Marianela [...] March 14, 2025 End: March 14, 2025 Petroleum Inspector 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 Specialty Start Date End Date Marianela Oliva MD [address] [place] [address] PCP - General Family Medicine 01/27/24 Petroleum Inspector 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 Specialty Start Date End Date Marianela Oliva MD [address] [place] [address] PCP - General Family Medicine 01/27/24 Petroleum Inspector 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 Specialty Start Date End Date Marianela Oliva MD [address] [place] [address] PCP - General Family Medicine 01/27/24 Petroleum Inspector 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 Specialty Start Date End Date Marianela Oliva MD [address] [facility] [place] [address] PCP - General Family Medicine 01/27/24 Petroleum Inspector 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 Specialty Start Date End Date Marianela Oliva MD [address] [facility] [place] [address] PCP - General Family Medicine 01/27/24 Team Status: Inactive Member Role Status Dates Marianela Oliva MD Primary Care Provider Active Start: April 02, 2025 End: April 02, 2025 Mario Loera [facility] DO [facility] Attending Provider Active Start: April 02, 2025 End: April 02, 2025 Team Status: Inactive Member Role Status Dates Marianela Oliva MD Primary Care Provider Active Start: June 12, 2025 End: June 12, 2025 Marianela Oliva MD Attending Provider Active St art: June 12, 2025 End: June 12, 2025 Petroleum Inspector 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 Specialty Start Date End Date Marianela Oliva MD [address] [facility] [place] [address] PCP - General Family Medicine 01/27/24 Petroleum Inspector 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 Specialty Start Date End Date Marianela Oliva MD [address] [facility] [place] [address] PCP - General Family Medicine 01/27/24 Petroleum Inspector 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 Specialty Start Date End Date Marianela Oliva MD [address] [facility] [place] [address] PCP - General Family Medicine 01/27/24 [...] BE BASED ON THE PRIMARY CLINICAL RECORDS. [employer] [facility]. provides no warranty or guarantee of the accuracy or completeness of information in this document.
[2025-07-11 08:20] VITALS: BP 106/60; PULSE 92
== END 2025-07-11 09:25 | disposition home or self-care (01) ==
LOC: US 07:32 → FBC 07:34
PROVIDERS: Family Provider Family Medicine; PCP Family Medicine; Visit Provider Obstetrics & Gynecology
DX: O26.893 Other specified pregnancy related conditions, third trimester (principal); O09.523 Supervision of elderly multigravida, third trimester
CPT/HCPCS: 76818

== ENCOUNTER 2025-07-14 07:47 | Outpatient (OUT) | payer OTHER, SELFPAY ==
--- OUTSIDE RECORDS SUMMARY | 2025-07-09 16:07 | XMS_ITS ---
[...] Next of Kin [address] [facility] [address] + [place], [place] [address] +[phone] BUMB, YOSSI Next of Kin Unknown + BUMB, YOSSI Next of Kin Unknown + Bumb, Yossi Next of Kin [address] [place] [address] + Emmett, [place] [address] [phone] BUMB, YSOSI Next of Kin Unknown + BUMB, YOSSI Next of Kin Unknown + Bumb, Yossi Next of Kin [address] [place] [address] + Emmett, [place] [address] [phone] BUMB, YOSSI Next of Kin Unknown + BUMB, YOSSI Next of Kin Unknown + Buje, Yossi Next of Tae [address] [place] [address] + [place] [address] +[phone] Bishnu, Yossi Next of Kin [address] [place] [address] + [place] [address] +[phone] Bishnu, Yossi Next of Tae [address] [place] [address] + [place] [address] +[phone] Care Team Providers Care Hot Braider Name Role Phone KAYLEN, MARBELLA Attending Unavailable KAYLEN, MARBELLA Attending Unavailable KAYLEN, MARBELLA Referring Unavailable KAYLEN, MARBELLA Attending Unavailable KAYLEN, MARBELLA Attending Unavailable KAYLEN, MARBELLA Attending Unavailable KAYLEN, MARBELLA Referring Unavailable KAYLEN, MARBELLA Attending Unavailable KAYLEN, MARBELLA Attending Unavailable KAYLEN, MARBELLA Attending Unavailable KAYLEN, MARBELLA Attending Unavailable KAYLEN, MARBELLA Attending Unavailable Kathy Reynaga Primary Care Unavailable Jose Forman Admitting Unavailable Jose Forman Attending Unavailable Kathy Reynaga Primary Care Unavailable Melissa Palacios Admitting Unavailable Melissa Palacios Attending Unavailable Kaylen, Marbella Admitting Unavailable Kaylen, Marbella Attending Unavailable Kathy Reynaga Primary Care Unavailable Kaylen, Marbella Admitting Unavailable Kaylen, Marbella Attending Unavailable Kathy Reynaga Primary Care Unavailable NO FAMILY, PHYSICIAN Primary Care Unavailable Derrick Wilson Admitting Unavailable Derrick Wilson Attending Unavailable Mitchels - LIZZY, Mario P Admitting Unavailable Mitchels - CHC, Mario P Attending Unavailable Kathy Reynaga Primary Care Unavailable PROBLEMS DATE TYPE CONDITION / CODE ATTENDING STATUS [facility] 03/14/2025 Unknown Personal history of diseases of the blood and blood-forming organs and certain disorders involving the immune mechanism / Z86.2(ICD-10) Marbella Abdullahi Active [facility] 12/27/2024 Unknown Encounter for supervision of normal , unspecified, unspecified trimester / Z34.90(ICD-10) Marbella Abdullahi [facility] 12/06/2024 Unknown Unspecified abdo marjan pain / R10.9(ICD-10) Jose Forman [facility] 08/11/2024 Unknown Cough, unspecifi ed / R05.9(ICD-10) Melissa Palacios [facility] PROCEDURES No Procedure Records Found RESULTS US OB FOLLOW UP TRANSABDOMINAL APPROACH Observed: 06/21/2025 8:47 AM Status: F Source: [facility] EPIC Order Comment: US OB SCAN FO [...] Observed: 05/22/2025 10:17 AM Status: F Source: [facility] EPIC Order Comment: US OB SCAN FO [...] Collected: 04/02/2025 6:57 AM Status: F Source: [facility] TYPE CODE TESTS RESULT OUT OF RANGE [...] 0.0-0.2 10*3/uL Result Comment: PERFORMED BY : [facility] [address] [place] [address] PATHOLOGIST REGISTERED ART THERAPIST JESS VARGAS M.D. Performed By: #### FRIEDAAR LI PID, PILLAR CBC, PILLAR CMP #### [facility] [address] EMPLOYEE COMP METABOLIC PANEL Collected: 04/02/2025 6:57 AM Status: F Source: F [facility] TYPE CODE TESTS RESULT OUT OF [...] LI PID, PILLAR CBC, PILLAR CMP #### [facility] [address] [place] [address] [facility] EMPLOYEE LIPID PROFILE Collected: 04/02/2025 6:57 AM Status: F Source: [facility] TYPE CODE TESTS RESULT OUT OF RANGE [...] 2.9 <5.0 Result Comment: PERFORMED BY : [place] [address] PATHOLOGIST REGISTERED ART THERAPIST JESS VARGAS M.D. Performed By: #### ANGELI CONNOR PID, PILLAR CBC, PILLAR CMP #### [facility] [address] [place] [address] [place] US OB 14+ WEEKS ANATOMY SCAN Observed: 0 03/15/2025 8:31 AM Status: F Source: [facility] EPIC Order Comment: US OB [...] II, MD, PHD at 16-Mar-2025 11:50:11 AM [facility] COMPLETE BLOOD COUNT AUTO DIFF Collected: 03/14/2025 11:50 AM Status: F Source: [facility] TYPE CODE TESTS RESULT OUT OF RANGE [...] 0.0-0.2 10*3/uL Result Comment: PERFORMED BY : [facility] [place] [address] PATHOLOGIST REGISTERED ART THERAPIST JESS VARGAS M.D. Performed By: #### CBC #### [facility] [address] COMPLETE BLOOD COUNT AUTO DIFF Collected: 12/27/2024 7:57 AM Status: F Source: F [facility] Order Comment: NONFASTING.JK W TYPE CODE [...] 0.0-0.2 10*3/uL Result Comment: PERFORMED BY : [place] [address] PATHOLOGIST REGISTERED ART THERAPIST LEÓN GARCIA M.D. Performed By: #### CUU, A1C WTH eA, CBC, URDS #### [address] #### RPR W RFX, RUBELLA IGG, HBSAG, HCV RX PCR, HIV SCREEN #### [facility] , DRUG SCREEN,URINE Collected: 12/27/2024 7:57 AM Stat us: F Source: [facility] Order Comment: NONFASTING.JK W TYPE CODE TESTS [...] 25 ng/mL THC 20 ng/mL PERFORMED BY: [place] [address] PATHOLOGIST REGISTERED ART THERAPIST LEÓN GARCIA M.D. Performed By: #### CUU, A1C WTH eA, CBC, URDS #### [address] #### RPR W RFX, RUBELLA IGG, HBSAG, HCV RX PCR, HIV SCREEN #### [facility] , A1C WITH ESTIMATED AVERAGE GLU Collected: 12/27/2024 7:57 AM Status: F Source: [facility] Order Comment: NONFASTING.JK W TYPE CODE TESTS RESULT OUT OF RANGE REFERENCE UNITS LAB .A1C Hemoglobin A1C 5.2 Normal 4.3-5.6 % Result Comment: Increased ri sk for diabetes: 5.7 - 6.4 diabetes: >6.4 glycemic control for adults with diabetes: <7.0 LAB eAG Estimated Average Glucose 103 mg/dL Result Comment: PERFORMED BY : [place] [address] PATHOLOGIST REGISTERED ART THERAPIST LEÓN GARCIA M.D. Performed By: #### CUU, A1C WTH eA, CBC, URDS #### [address] #### RPR W RFX, RUBELLA IGG, HBSAG, HCV RX PCR, HIV SCREEN #### [facility] , HEP C AB WRFX TO QNT PCR Collected: 12/27/2024 7:57 A M Status: F Source: [facility] Order Comment: NONFASTING.JK W TYPE CODE TESTS [...] CUU, A1C WTH eA, CBC, URDS #### [address] #### RPR W RFX, RUBELLA IGG, HBSAG, HCV RX PCR, HIV SCREEN #### [facility] , HEPATITIS B SURFACE ANTIGEN Collected: 12/27/2024 7:5 7 AM Status: F Source: [facility] Order Comment: NONFASTING.JK W TYPE CODE TESTS RESULT OUT OF RANGE REFERENCE UNITS LAB HBSAG SCR HBsAg Screen Negative Negative Result Comment: Performed at : - [facility] [address] [id number] Assembly Detailer: Garfield Fay PhD, Phone: [phone] PERFORMED BY: [place] [address] PATHOLOGIST REGISTERED ART THERAPIST LEÓN GARCIA M.D. Performed By: #### CUU, A1C WTH eA, CBC, URDS #### [address] [place] [address] [place] #### RPR W RFX, RUBELLA IGG, HBSAG, HCV RX PCR, HIV SCREEN #### [facility] , URINE CULTURE Observed: 12/27/2024 7:57 AM Status: F Source: [facility] NONFASTING.JKW 15,000 colonies/ml mixed bacterial skin contaminants 2 Days PERFORMED BY: [place] [address] PATHOLOGIST REGISTERED ART THERAPIST LEÓN GARCIA M.D. Performed By: #### CUU, A1C WTH eA, CBC, URDS #### [address] #### RPR W RFX, RUBELLA IGG, HBSAG, HCV RX PCR, HIV SCREEN #### [facility] , RUBELLA IGG ANTIBODY Collected: 7:57 AM Status: F Source: [facility] Order Comment: NONFASTING.JK W TYPE CODE TESTS RESULT OUT OF RANGE REFERENCE UNITS LAB RUBELLA IGG Rubella IgG Antibody 1.22 Immune >0.99 Result Comment: Non-immune < 0.90 Equivocal 0.90 - 0.99 Immune >0.99 Performed By: #### CUU, A1C WTH eA, CBC, URDS #### [address] #### RPR W RFX, RUBELLA IGG, HBSAG, HCV RX PCR, HIV SCREEN #### [facility] , HIV 1/O/2 ANTIGEN/ANTIBODY Collected: 0 12/27/2024 7:57 AM Status: F Source: [facility] Order Comment: NONFASTING.JK W TYPE CODE TESTS RESULT OUT OF RANGE REFERENCE UNITS LAB HIV SCRN 4TH HIV Screen 4th Generation Non Reactive Non Reactive Result Comment: HIV-1/HIV-2 antibodies and HIV-1 p24 antigen were NOT detected. There is no laboratory evidence of HIV infection. HIV Negative Performed at: [facility] [address] [id number] Assembly Detailer: Garfield Fay PhD, Phone: [phone] Performed By: #### CUU, A1C WTH eA, CBC, URDS #### [place] [address] [place] #### RPR W RFX, RUBELLA IGG, HBSAG, HCV RX PCR, HIV SCREEN #### [facility] , RPR W/RFX TO QUANT TP ABS Collected: 7:57 AM Status: F Source: [facility] Order Comment: NONFASTING.JK W TYPE CODE TESTS RESULT OUT OF RANGE REFERENCE UNITS LAB RPRRESULT RPR, Rfx Quant RPR Non Reactive Non Reactive Result Comment: Performed at : [facility] [address] [id number] Assembly Detailer: Garfield Fay PhD, Phone: [phone] PERFORMED BY: [place] [address] PATHOLOGIST REGISTERED ART THERAPIST LEÓN GARCIA M.D. Performed By: #### CUU, A1C WTH eA, CBC, URDS #### [address] #### RPR W RFX, RUBELLA IGG, HBSAG, HCV RX PCR, HIV SCREEN #### [facility] , TYPE AND SCREEN Collected: 12/27/2024 7:57 AM Status : F Source: [facility] Order Comment: NONFASTING.JK W TYPE CODE TESTS RESULT OUT OF RANGE REFERENCE UNITS LAB BTV Blood Type B Negative Result Comment: PERFORMED BY : [place] [address] PATHOLOGIST REGISTERED ART THERAPIST LEÓN GARCIA M.D. LAB ABS Antibody Screen NEGATIVE Result Comment: PERFORMED BY : [address] [address] PATHOLOGIST REGISTERED ART THERAPIST LEÓN GARCIA M.D. US OB TRANSVAGINAL Observed: 12/21/2024 12:54 PM Status: F Source: [facility] EPIC Order Comment: US OB TRANSVA GINAL [...] II, MD, PHD at 22-Dec-2024 08:23:50 AM [facility] US OB <= 14 WEEKS FETUS Observed: 2024 9:54 AM Status: COMPLETED Source: [facility] [place] [address] Ultrasound Report Signed Patient: Noris Goetz MR#: [id number] [birth year] : 1990 Acct:[id number] Age/Sex: 34 / F ADM Date: 12/06/24 Loc: ER Room: Type: [facility] ER Attending Dr: Ordering Provider: Jose Forman DO Date of Service: 12/06/24 US/US OB <= 14 weeks fetus: Abdominal Pain Copies to: Jose Forman DO Obstetrical ultrasound for fetus less than 14 weeks HISTORY: Abdominal pain. Vaginal bleeding COMPARISON: None The heart rate is 126bpm. Ovaries not visualized No free fluid identified in cul-de-sac. No subchorionic hemorrhage identified. Friendship-rump length measures 6.4cm consistent with 6 weeks 4 days. The yolk sac is not seen. The estimated due date by this ultrasound is 07/28/2025. US/US OB <= 14 weeks fetus IMPRESSION: Single live anterior gestation 6 weeks 4 days. Impression dictated by: Alfonzo Flores M.D.12/06/2024 9:55 AM Dictation Location: [facility] Tech: Antonieta Greenberg Transcribed By: PWS 12/06/2455 Dictated By: Alfonzo Flores DO 12/06/24 0954 Signed By: <Electronically signed by Alfonzo Flores DO in OV> 12/06/24954 COMPLETE BLOOD COUNT AUTO DIFF Collected: 12/06/2024 8:20 AM Status: F Source: [facility] TYPE CODE TESTS RESULT OUT OF RANGE [...] 0.0-0.2 10*3/uL Result Comment: PERFORMED BY : [place] [address] PATHOLOGIST REGISTERED ART THERAPIST LEÓN GARCIA M.D. Performed By: #### HCGQNT, L IPASE, PT, HS TROP, PTT, CBC, HEPATIC, BMP #### [place] [id number] [facility] TROPONIN I HIGH SENSITIVITY Collected: 12/06/2024 8:2 0 AM Status: F Source: [facility] TYPE CODE TESTS RESULT OUT OF RANGE REFERENCE UNITS LAB HS TROP Troponin I High Sensitivity 3 Normal 0-15 Result Comment: The Troponin units of report have been changed to meet the Chest Pain Accreditation requirement, element EC5.M1l2. Troponin units are changed from pg/ml to ng/L. Also, the decimal is removed and results are in whole numbers. PERFORMED BY: [place] [address] PATHOLOGIST REGISTERED ART THERAPIST LEÓN GARCIA M.D. Performed By: #### HCGQNT, L IPASE, PT, HS TROP, PTT, CBC, HEPATIC, BMP #### [facility] [address] [place], [place] [id number] [facility] PROTHROMBIN TIME INR Collected: 12/06/2024 8:20 AM S tatus: F Source: [facility] TYPE CODE TESTS RESULT OUT OF RANGE REFERENCE UNITS LAB R PT Prothrombin Time 12.3 Normal 9.0-12.9 s Result Comment: A hematocrit value greater than 55% may lead to inaccurate results in coagulation testing. Patients having hematocrit values >55% require a special collection tube for coagulation studies. Please contact the laboratory at [phone] for redraw instructions. LAB INR INR 1.1 [...] HS TROP, PTT, CBC, HEPATIC, BMP #### [place] [id number] [facility] PARTIAL THROMBOPLASTIN TIME Collected: 12/06/2024 8:2 0 AM Status: F Source: [facility] TYPE CODE TESTS RESULT OUT OF RANGE REFERENCE UNITS LAB PTT Partial Thromboplastin Time 28.1 Normal 25.1-36.5 s Result Comment: A hematocrit value greater than 55% may lead to inaccurate results in coagulation testing. Patients having hematocrit values >55% require a special collection tube for coagulation studies. Please contact the laboratory at [phone] for redraw instructions. PERFORMED BY: [place] [id number] PATHOLOGIST REGISTERED ART THERAPIST LEÓN GARCIA M.D. Performed By: #### HCGQNT, L IPASE, PT, HS TROP, PTT, CBC, HEPATIC, BMP #### [place] [id number] [facility] HEPATIC PANEL Collected: 12/06/2024 8:20 AM Status: F Source: [facility] TYPE CODE TESTS RESULT OUT OF RANGE [...] HS TROP, PTT, CBC, HEPATIC, BMP #### [facility] [address] BASIC METABOLIC PANEL Collected: 12/06/2024 8:20 AM Status: F Source: [facility] TYPE CODE TESTS RESULT OUT OF RANGE [...] HS TROP, PTT, CBC, HEPATIC, BMP #### [facility] [address] [place] [id number] [facility] LIPASE Collected: 8:20 AM Status: F Source: [facility] TYPE CODE TESTS RESULT OUT OF RANGE REFERENCE UNITS LAB LIPASE Lipase 11.0 Normal 11.0-82.0 U/L Performed By: #### HCGQNT, L IPASE, PT, HS TROP, PTT, CBC, HEPATIC, BMP #### [facility] [address] HCG,QUANTITATIVE Collected: 8:20 AM Status: F Source: [facility] TYPE CODE TESTS RESULT OUT OF RANGE REFERENCE UNITS LAB HCGQNT HCG,Quantit ative 113638.00 m[iU]/mL Result Comment: Approximate Approximate hCG Gestational Age Range (mIU/ml) (weeks) 0.2-1 5-50 1-2 50-500 2-3 100-5,000 3-4 500-10,000 4-5 1,000-50,000 5-6 10,000-100,000 6-8 15,000-200,000 8-12 10,000-100,000 PERFORMED BY: [place] [address] PATHOLOGIST REGISTERED ART THERAPIST LEÓN GARCIA M.D. Performed By: #### HCGQNT, L IPASE, PT, HS TROP, PTT, CBC, HEPATIC, BMP #### [facility] [address] [place] [address] ECG 12 LEAD ECG Observed: 12/06/2024 8:13 AM Status: COMPLETED Source: [facility] [place] [address] Electrocardiograph Report Signed Patient: Noris Goetz MR#: [id number] 61 : 1990 Acct:[id number] Age/Sex: 34 / F ADM Date: 12/06/24 Loc: ER Room: Type: [facility] ER Attending Dr: Ordering Provider: [...] branch block Confirmed by Jose FORMAN [place] ([id number]) on 12/06/2024 10:38:39 AM Referred By: Electronically Signed By: Jose FORMAN DO Transcribed By: MUS Signed By Jose Forman DO 0 12/06/24 1038 DIPSTICK AND MICROSCOPIC Collected: 8:10 AM Status: F Source: [facility] Order Comment: Name Collecti on Type:: Clean-Voided Midstream TYPE CODE TESTS RESULT OUT OF RANGE REFERENCE UNITS LAB UCOL Color,Urine Yellow Yellow LAB UAPP Appearance,Uri ne Clear Clear LAB USG Specificy [place],Urine 1.025 Normal 1.001-1.030 LAB UPH pH,Urine 6.5 [...] Performed By: #### UHCG, ADD ONUAPLUS #### [facility] [address] [place] [address] [place] HCG,URINE Collected: 8:10 AM Status: F Source: [facility] Order Comment: Name Collecti on Type:: Clean-Voided Midstream TYPE CODE TESTS RESULT OUT OF RANGE REFERENCE UNITS LAB UHCGQ HCG Qualitative, Urine Positive High Result Comment: PERFORMED BY : [place] [address] PATHOLOGIST REGISTERED ART THERAPIST LEÓN GARCIA M.D. 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 Copies to: Melissa Reddy APRN Ordering Provider: [...] Alfonzo Flores M.D.08/11/2024 9:59 AM Dictation Location: [place] [address] Transcribed By: [facility] 08/11/24958 Dictated By: Alfonzo Flores DO 08/11/24957 Signed By: <Electronically signed by Alfonzo Flores DO in OV> 08/11/24958 PATHOLOGY REQUEST FOR LAB MADHAVI Collected: 08/02/2024 9:19 AM Status: F Source: [facility] Order Comment: PATHOLOGY SKI N SPECIMEN TYPE CODE TESTS RESULT OUT OF RANGE REFERENCE UNITS LAB PATH TO [facility] Pathology Request for Lab Madhavi Result Comment: See report. Scanned copy available in EMR. PERFORMED BY: [place] [address] PATHOLOGIST REGISTERED ART THERAPIST JOAN CROWLEY M.D. Performed By: #### PATH TO [facility] #### [address] ALLERGIES DATE TYPE / CODE NAME / CODE REACTION SEVERITY SOURCE 08/15/2024 Drug Allergy/[id number] (SNOMED CT) No Known Allergies/U7591626 88(RXNORM) Unknown [facility] ENCOUNTERS ADMIT/DISCHARGE ACCOUNT NUMBER ADMITTING ENCOUNTER CLASS LOCATION SOURCE 07/09/2025/07/09/20 [id number] Ambulatory Building:[facility] EPIC 07/05/2025/07/05/20 25 [id number] Ambulatory Building:[facility] EPIC 06/21/2025/06/21/20 25 [id number] Ambulatory Building:[facility] EPIC 06/21/2025/06/21/20 25 [id number] Ambulatory Building:[facility] EPIC 06/07/2025/06/07/20 25 [id number] Ambulatory Building:[facility] EPIC 05/22/2025/05/22/20 25 [id number] Ambulatory Building:[facility] EPIC 05/22/2025/05/22/20 25 [id number] Ambulatory Building:[facility] EPIC 05/10/2025/05/10/20 25 [id number] Ambulatory Building:[facility] EPIC 04/10/2025/04/10/20 25 [id number] Ambulatory Building:[facility] EPIC 04/02/2025/04/02/20 25 [id number] [facility] Lo[facility] 03/15/2025/03/15/20 25 [id number] Ambulatory Building:[facility] OB [facility] 03/15/2025/03/15/20 25 [id number] Ambulatory Building:[facility] OB [facility] 03/14/2025/03/14/20 25 [id number] Marbella Abdullahi [facility] 02/15/2025/02/16/20 25 [id number] Ambulatory Building:[facility] EPIC 01/18/2025/01/19/20 25 [id number] Ambulatory Building:[facility] EPIC 12/27/2024/12/28/19 25 [id number] Marbella Abdullahi [facility] 12/21/2024/12/22/19 25 [id number] Ambulatory Building:[facility] EPIC 12/21/2024/12/22/19 [id number] Ambulatory Building:[facility] EPIC 12/06/2024/12/06/19 [id number] Jose [facility]an [facility] 08/11/2024/08/11/20 [id number] Melissa Palacios [facility] 08/01/2024/08/01/20 [id number] Derrick Wilson [facility] PAYERS ENCOUNTER GUARANTOR PAYER SUBSCRIBER SOURCE 07/09/2025 NORIS GOETZDOB: [address] [place] [address]Gzi: (HP) Primary Insurance:MEDICAL MUTUALPolicy Number: [id number] Date:2022-10-18 NORIS BOLTONMBDOB: [id number] [address] [place] [address] [facility] EPIC 07/05/2025 NORIS BOLTONMBDOB: [address] [place] [address]Xod: (HP) Primary Insurance:MEDICAL MUTUALPolicy Number: [id number] Date:2022-10-18 NORIS BOLTONMBDOB: [id number] [address] [place] [address] [facility] EPIC 06/21/2025 NORIS BOLTONMBDOB: [address] [place] [address]Leh: (HP) Primary Insurance:MEDICAL MUTUALPolicy Number: [id number] Date:2022-10-18 NORIS BOLTONMBDOB: [id number] [address] [place] [address] [facility] EPIC 06/21/2025 NORIS Blevins BUMBDOB: [address] [place] [address]Sgk: (HP) Primary Insurance:MEDICAL MUTUALPolicy Number: [id number] Date:2022-10-18 NORIS Gen BUMBDOB: [id number] [address] [facility] [place] [address] [facility] EPIC 06/07/2025 NORIS Gen BUMBDOB: [address] [place] [address]Fnj: (HP) Primary Insurance:MEDICAL MUTUALPolicy Number: [id number] Date:2022-10-18 NORIS Gen BUMBDOB: [id number] [address] [place] [address] [facility] EPIC 05/22/2025 NORIS Gen CHEMBDOB: [address] [place] [address]Clm: (HP) Primary Insurance:MEDICAL MUTUALPolicy Number: [id number] Date:2022-10-18 NORIS Gen BOLTONMBDOB: [id number] [address] [facility] [place] [address] [facility] EPIC 05/22/2025 NORIS Gen BUMBDOB: [address] [place] [address]Flp: (HP) Primary Insurance:MEDICAL MUTUALPolicy Number: [id number] Date:2022-10-18 NORIS Gen BUMBDOB: [id number] [address] [place] [address] [facility] EPIC 05/10/2025 NORIS Gen BUMBDOB: [address] [place] [address]Hat: (HP) Primary Insurance:MEDICAL MUTUALPolicy Number: [id number] Date:2022-10-18 NORIS GOETZDOB: [id number] [address] [facility] [place] [address] [facility] EPIC 04/10/2025 NORIS GOETZDOB: [address] [facility] [place] [address]Mql: (HP) Primary Insurance:MEDICAL MUTUALPolicy Number: [id number] Date:2022-10-18 NORIS GOETZDOB: [id number] [facility] [place] [address] [facility] EPIC 04/02/2025 [address] [place] [address]Fqi: (HP) Primary Insurance:Self PayPolicy Number: Effective Date:2025-03-21 [facility] 03/15/2025 NORIS GOETZDOB: [address] [facility] [place] [address]Awh: (HP) Primary Insurance:MEDICAL MUTUALPolicy Number: [id number] Date:2022-10-18 NORIS GOETZDOB: [id number] [address] [facility] [place] [address] [facility] EPIC 03/15/2025 NORIS GOETZDOB: [address] [place] [address]Qgx: (HP) Primary Insurance:MEDICAL MUTUALPolicy Number: [id number] Date:2022-10-18 NORIS BOLTONMBDOB: [id number] [address] [facility] [place] [address] [facility] EPIC 03/14/2025 Noris [address] [place] [address]Qvm: (HP) Primary Insurance:[employer] EmployeesPolicy Number: [id number] Date:[id number] [id number] [place] [address]WF: Noris BoltonmbDOB: [id number] [address] [place] [id number]: (HP) [facility] 03/14/2025 Secondary Insurance:FAPPolicy Number: [id number] Date:2025-03-14% 03/29/2025[facility] [address]NT: [phone] Noris BoltonmbDOB: [id number] [address] [place] [address]Mtu: (HP) [facility] 03/14/2025 Tertiary Insurance:Self PayPolicy Number: Effective Date:2025-03-14 [facility] 02/15/2025 NORIS BOLTONMBDOB: [address] [place] [address]Vot: (HP) Primary Insurance:MEDICAL MUTUALPolicy Number: [id number] Date:2022-10-18 NORIS BOLTONMBDOB: [id number] [place] [address] [facility] EP[facility] 01/18/2025 NORIS BOLTONMBDOB: [address] [place] [address]Bdw: (HP) Primary Insurance:MEDICAL MUTUALPolicy Number: [id number] Date:2022-10-18 NORIS Blevins BUMBDOB: [id number] [address] [place] [address] [facility] EPIC 12/27/2024 Noris Boltonmb[address] [place] [address]Pwh: (HP) Primary Insurance:[facility] [place] EmployeesPolicy Number: [id number] Date:[id number] [id number] [place] [address]QN: Noris BoltonmbDOB: [id number] [address] [place] [address]Xze: (HP) [facility] 12/27/2024 Secondary Insurance:FAPPolicy Number: [id number] Date:2024-12-27 - [id number]% 03/29/2025[facility], [place] [address]WI: [phone] Noris BoltonmbDOB: [id number] [address] [place] [address]Nma: (HP) [facility] 12/27/2024 Tertiary Insurance:Self PayPolicy Number: Effective Date:2024-12-27 [facility] 12/21/2024 NORIS Blevins BISHNUDOB: [address] [place] [address]Xbu: (HP) Primary Insurance:MEDICAL MUTUALPolicy Number: [id number] Date:2022-10-18 NORIS BOLTONMBDOB: [id number] [place] [address] [facility] EPIC 12/21/2024 NORIS Gen CHEMBDOB: [address] [place] [address]Ajl: (HP) Primary Insurance:MEDICAL MUTUALPolicy Number: [id number] Date:2022-10-18 NORIS Gen CHEMBDOB: [id number] [address] [place] [address] [facility] EPIC 12/06/2024 Noris Gen BoltonYnrz[address] [place] [address]Gtk: (HP) Primary Insurance:[facility] [place] EmployeesPolicy Number: [id number] Date:0550-99-99LE [id number] [place] [address]MR: Noris BoltonmbDOB: [id number] [address] [place] [address]Ktm: () [facility] 12/06/2024 Secondary Insurance:FAPPolicy Number: [id number] Date:2024-12-06 - [id number]% 03/29/20[address] [address]TV: [phone] Noris BoltonmbDOB: [id number] [address] [place] [address]Vhn: () [facility] 12/06/2024 Tertiary Insurance:Self PayPolicy Number: Effective Date:2024-12-06 [facility] 08/11/2024 Noris Boltonmb[address] [place] [address]Eow: () Primary Insurance:[employer] EmployeesPolicy Number: [id number] Date:9174-51-17AX [id number] [place] [address]YJ: Noris BoltonmbDOB: [id number] [address] [place] [address]Cqo: () [facility] 08/11/2024 Secondary Insurance:FAPPolicy Number: [id number] Date:2024-08-11 - [id number]% 08/23/24[place] [address]KX: [phone] Noris BoltonmbDOB: [id number] [address] [place] [address]Yfq: () [facility] 08/11/2024 Tertiary Insurance:Self PayPolicy Number: Effective Date:2024-08-11 [facility] 08/01/2024 Noris Blevins [address] [place] [address]Gct: () Primary Insurance:Self PayPolicy Number: Effective Date:2024-08-01 [facility]
[2025-07-14 07:55] VITALS: BP 113/64; PULSE 95
== END 2025-07-14 08:25 | disposition home or self-care (01) ==
LOC: FBCO 07:47 → FBC 07:48
PROVIDERS: Family Provider Family Medicine; PCP Family Medicine; Visit Provider Obstetrics & Gynecology
DX: O26.893 Other specified pregnancy related conditions, third trimester (principal); O09.523 Supervision of elderly multigravida, third trimester; Z3A.38 38 weeks gestation of pregnancy
CPT/HCPCS: 59025

== ENCOUNTER 2025-07-16 07:32 | Outpatient (OUT) | payer OTHER, SELFPAY ==
--- OUTSIDE RECORDS SUMMARY | 2025-07-09 16:07 | XMS_ITS ---
Author Name Auto Generated Organization OHIP Support Name 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 Address Phone BUMB, YOSSI Next of Kin Unknown + BUMB, YOSSI Next of Kin Unknown + BUMB, YOSSI Next of Kin Unknown + BUMB, YOSSI Next of Kin Unknown + BUMB, YOSSI Next of Kin Unknown + BUMB, YOSSI Next of Kin Unknown + BUMB, YOSSI Next of Kin Unknown + BUMB, YOSSI Next of Kin Unknown + BUMB, YOSSI Next of Kin Unknown + Bumb, Yossi Next of Kin [address] [place] [address] + [place], [place] [address] [phone] BUMB, YOSSI Next of Kin Unknown + BUMB, YOSSI Next of Kin Unknown + Bumb, Yossi Next of Kin [address] [place] [address] + [place], [place] [address] [phone] BUMB, YOSSI Next of Kin Unknown + BUMB, YOSSI Next of Kin Unknown + Bumb, Yossi Next of Kin [address] [place] [address] + [place], [place] [address] [phone] BUMB, YOSSI Next of Kin Unknown + BUMB, YOSSI Next of Kin Unknown + Buje, Yossi Next of Tae [address] [place] [address] + [place] [address] +[phone] Bishnu, Yossi Next of Kin [address] [place] [address] + [place] [address] +[phone] Bishnu, Yossi Next of Tae [address] [place] [address] + [place] [address] +[phone] Care Team Providers Care Machine Turner Name Role Phone KAYLEN, MARBELLA Attending Unavailable KALYEN, MARBELLA Attending Unavailable KAYLEN, MARBELLA Referring Unavailable KAYLEN, MARBELLA Attending Unavailable KAYLEN, MARBELLA Attending Unavailable KAYLEN, MARBELLA Attending Unavailable KAYLEN, MARBELLA Referring Unavailable KAYLEN, MARBELLA Attending Unavailable KAYLEN, MARBELLA Attending Unavailable KAYLEN, MARBELLA Attending Unavailable KAYLEN, MARBELLA Attending Unavailable KAYLEN, MARBELLA Attending Unavailable Kaylen, Marbella Admitting Unavailable Kaylen, Marbella Attending Unavailable Kathy Reynaga Primary Care Unavailable Kathy Reynaga Primary Care Unavailable Keister, Jose A Admitting Unavailable Kekaren Jose A Attending Unavailable Kuns - [facility], Mario P Admitting Unavailable Kuns - [facility], Mario P Attending Unavailable Kathy Reynaga Primary Care Unavailable NO FAMILY, PHYSICIAN Primary Care Unavailable Derrick Wilson Admitting Unavailable Derrick Wilson Attending Unavailable Kathy Reynaga Primary Care Unavailable Melissa Palacios Admitting Unavailable Melissa Palacios Attending Unavailable Kaylen, Marbella Admitting Unavailable Kaylen, Marbelal Attending Unavailable Kathy Reynaga Primary Care Unavailable PROBLEMS DATE TYPE CONDITION / CODE ATTENDING STATUS [facility] 03/14/2025 Unknown Personal history of diseases of the blood and blood-forming organs and certain disorders involving the immune mechanism / Z86.2(ICD-10) Dany Abdullahiy Active [facility] 12/27/2024 Unknown Encounter for supervision of normal , unspecified, unspecified trimester / Z34.90(ICD-10) Marbella Abdullahi [facility] 12/06/2024 Unknown Unspecified abdo marjan pain / R10.9(ICD-10) Jose Forman [facility] 08/11/2024 Unknown Cough, unspecifi ed / R05.9(ICD-10) Melissa Palacios [facility] PROCEDURES No Procedure Records Found RESULTS US OB FOLLOW UP TRANSABDOMINAL APPROACH Observed: 06/21/2025 8:47 AM Status: F Source: [facility] EPIC Order Comment: US OB SCAN FO R GROWTH Estimated Date of Delivery: 07/28/25 Gestational Age as of 06/07/2025: 34w5d FINDINGS: Comparison made with prior examination of [...] BY: ELECTRONICALLY SIGNED BY: Minh Reddy MD US OB FOLLOW UP TRANSABDOMINAL APPROACH Observed: 05/22/2025 10:17 AM Status: F Source: [facility] EPIC Order Comment: US OB SCAN FO R GROWTH Estimated Date of Delivery: 07/28/25 Gestational Age as of 05/10/2025: 28w5d FINDINGS: Comparison March 15, 2025. A single, [...] BY: ELECTRONICALLY SIGNED BY: Minh Reddy MD EMPLOYEE COMPLETE BLOOD COUNT Collected: 04/02/2025 6:57 AM Status: F Source: [facility] TYPE CODE TESTS RESULT OUT OF RANGE REFERENCE UNITS LAB WBC White Blood Count 7.4 Normal 3.8-11.6 10*3/uL LAB UNWBC Uncorrected WBC 7.4 Normal 3.8-11.6 10*3/uL LAB RBC Red Blood Count 4.03 Normal 3.60-5.00 10*6/u L LAB HGB Hemoglobin 11.8 Normal 11.8-15.4 g/dL LAB HCT Hematocrit 34.4 Normal 34.0-46.4 % LAB MCV Mean Corpuscular Volume 85.4 Normal 80-100 fL LAB MCH Mean Corpuscular Hemoglobin 29.3 Normal 24.7-34.3 pg LAB MCHC Mean Corpuscular HGB Conc 34.3 Normal 32.0-35.0 g/dL LAB RDW Red Cell Distribution Width 13.4 Normal 11.9-15.3 % LAB PLT Platelet Count 198 Normal 150-450 10*3/uL LAB MPV Mean Platelet Volume 9.5 Normal 6.3-10.7 fL LAB NE% Neutrophils % (Auto) 67.5 . % LAB LY% Lymphocytes % (Auto) 21.6 . % LAB MO% Monocytes % (Auto) 7.9 . % LAB EO% Eosinophils % (Auto) 2.5 . % LAB BA% Basophils % (Auto) 0.5 . % LAB NRBC% NRBC% 0.1 Normal 0-0.5 /100{WBC} LAB NE# Neutrophils # (Auto) 5.0 Normal 1.8-7.7 10*3/uL LAB LY# Lymphocytes # (Auto) 1.6 Normal 1.00-4.8 10*3/uL LAB MO# Monocytes # (Auto) 0.6 Normal 0.0-0.8 10*3/uL LAB EO# Eosinophils # (Auto) 0.2 Normal 0.0-0.45 10*3/uL LAB BA# Basophils # (Auto) 0.0 Normal 0.0-0.2 10*3/uL Result Comment: PERFORMED BY : [facility] [address] [place] [address] PATHOLOGIST METAL MOVER JESS VARGAS M.D. Performed By: #### FRIEDAAR LI PID, PILLAR CBC, PILLAR CMP #### [facility] [address] EMPLOYEE COMP METABOLIC PANEL Collected: 04/02/2025 6:57 AM Status: F Source: F [facility] TYPE CODE TESTS RESULT OUT OF RANGE REFERENCE UNITS LAB EBS GLUCOSE Glucose, Employe e SCR 92 Normal 70-100 mg/dL LAB BUN Blood Urea Nitrogen 12 Normal 7-25 mg/d L LAB CREATT Creatinine 0.49 Low 0.60-1.20 mg/dL LAB GFReNR Estimated GFR >60.0 mL/Min LAB NA Sodium 136 Normal 136-145 mmol/L LAB K Potassium 3.9 Normal 3.5-5.1 mmol/L LAB CL Chloride 106 Normal 98-107 mmol/L LAB CO2 Carbon Dioxide 25.4 Normal 21.0-31.0 mmol/L LAB GAP Anion Gap 8.5 Normal 6.0-15.0 meq/L LAB CA Calcium 8.2 Low 8.6-10.3 mg/dL LAB TP Total Protein 5.7 Low 6.4-8.9 g/dL LAB ALB Albumin Level 3.4 Low 3.5-5.7 g/dL LAB GLOB Globulin 2.3 g/dL LAB AGRATIO Albumin/Globulin Ratio 1.5 LAB BILIT Bilirubin,Total 0.3 Normal 0.3-1.0 mg/dL LAB AST Aspartate Amino Transferase 12 Low 13-39 U/L LAB ALT Alanine Aminotransferase 10 Normal 7-52 U/L LAB ALP Alkaline Phosphatase 39 Normal 34-104 U/L Performed By: #### ANGELI LI PID, PILLAR CBC, PILLAR CMP #### [facility] [address] [place] [address] [facility] EMPLOYEE LIPID PROFILE Collected: 04/02/2025 6:57 AM Status: F Source: [facility] TYPE CODE TESTS RESULT OUT OF RANGE REFERENCE UNITS LAB CHOL Cholesterol 222 High 140-200 mg/dL Result Comment: Chol less th an 200 mg/dl low risk Chol 201-239 mg/dl borderline risk Chol 240 mg/dl and greater high risk LAB HDL HDL Cholesterol 76 Normal 23-92 mg/dL Result Comment: HDL CHOL ATP -III CLASSIFICATION Cardiovascular Risk HDL > or equal to 60 mg/dL LOW HDL < 40 mg/dL HIGH LAB PILLAR TRIG REF Triglyceride w/Reflex 131 Normal 0-149 mg/dL Result Comment: TRIG ATP III CLASSIFICATION TRIG less than 150 mg/dL Normal TRIG 150-199 mg/dL Borderline high TRIG 200-500 mg/dL High TRIG greater than 500 mg/dL Very high Standard traceable to the Center for Disease Conrtrol and Prevention (CDC) test method. LAB LDLC LDL Cholesterol,Calc ulated 120 High 0-100 mg/dL Result Comment: LDL ATP III CLASSIFICATION LDL less than 100 mg/dL Optimal LDL 100-129 mg/dL Near or above optimal LDL 130-159 mg/dL Borderline high LDL 160-189 mg/dL High LDL greater than 189 mg/dL Very high LAB VLDL VLDL CHOLESTEROL 26 mg/dL LAB CHLHDL Chol/HDL Ratio 2.9 <5.0 Result Comment: PERFORMED BY : [place] [address] PATHOLOGIST METAL MOVER JESS VARGAS M.D. Performed By: #### ANGELI CONNOR PID, PILLAR CBC, PILLAR CMP #### [facility] [address] [place] [address] [place] US OB 14+ WEEKS ANATOMY SCAN Observed: 0 03/15/2025 8:31 AM Status: F Source: [facility] EPIC Order Comment: US OB ANATOMY SINGLE W US OB CERVICAL LENGTH Estimated Date of Delivery: 07/28/25 Gestational Age as of 02/15/2025: 16w5d EXAM: US OB 14+ WEEKS ANATOM Y SCAN HISTORY: anatomy. COMPARISON: Ob ultrasound 12/21/2024. [...] II, MD, PHD at 16-Mar-2025 11:50:11 AM [facility] COMPLETE BLOOD COUNT AUTO DIFF Collected: 03/14/2025 11:50 AM Status: F Source: [facility] TYPE CODE TESTS RESULT OUT OF RANGE REFERENCE UNITS LAB WBC White Blood Count 9.1 Normal 3.8-11.6 10*3/uL LAB UNWBC Uncorrected WBC 9.1 Normal 3.8-11.6 10*3/uL LAB RBC Red Blood Count 4.30 Normal 3.60-5.00 10*6/u L LAB HGB Hemoglobin 12.6 Normal 11.8-15.4 g/dL LAB HCT Hematocrit 35.8 Normal 34.0-46.4 % LAB MCV Mean Corpuscular Volume 83.3 Normal 80-100 fL LAB MCH Mean Corpuscular Hemoglobin 29.2 Normal 24.7-34.3 pg LAB MCHC Mean Corpuscular HGB Conc 35.1 High 32.0-35.0 g/dL LAB RDW Red Cell Distribution Width 13.5 Normal 11.9-15.3 % LAB PLT Platelet Count 235 Normal 150-450 10*3/uL LAB MPV Mean Platelet Volume 9.0 Normal 6.3-10.7 fL LAB NE% Neutrophils % (Auto) 70.6 . % LAB LY% Lymphocytes % (Auto) 19.9 . % LAB MO% Monocytes % (Auto) 8.2 . % LAB EO% Eosinophils % (Auto) 1.0 . % LAB BA% Basophils % (Auto) 0.3 . % LAB NRBC% NRBC% 0.1 Normal 0-0.5 /100{WBC} LAB NE# Neutrophils # (Auto) 6.4 Normal 1.8-7.7 10*3/uL LAB LY# Lymphocytes # (Auto) 1.8 Normal 1.00-4.8 10*3/uL LAB MO# Monocytes # (Auto) 0.7 Normal 0.0-0.8 10*3/uL LAB EO# Eosinophils # (Auto) 0.1 Normal 0.0-0.45 10*3/uL LAB BA# Basophils # (Auto) 0.0 Normal 0.0-0.2 10*3/uL Result Comment: PERFORMED BY : [facility] [place] [address] PATHOLOGIST METAL MOVER JESS VARGAS M.D. Performed By: #### CBC #### [facility] [address] COMPLETE BLOOD COUNT AUTO DIFF Collected: 12/27/2024 7:57 AM Status: F Source: F [facility] Order Comment: NONFASTING.JK W TYPE CODE TESTS RESULT OUT OF RANGE REFERENCE UNITS LAB WBC White Blood Count 6.4 Normal 3.8-11.6 10*3/uL LAB UNWBC Uncorrected WBC 6.4 Normal 3.8-11.6 10*3/uL LAB RBC Red Blood Count 4.69 Normal 3.60-5.00 10*6/u L LAB HGB Hemoglobin 13.0 Normal 11.8-15.4 g/dL LAB HCT Hematocrit 38.2 Normal 34.0-46.4 % LAB MCV Mean Corpuscular Volume 81.5 Normal 80-100 fL LAB MCH Mean Corpuscular Hemoglobin 27.8 Normal 24.7-34.3 pg LAB MCHC Mean Corpuscular HGB Conc 34.1 Normal 32.0-35.0 g/dL LAB RDW Red Cell Distribution Width 13.7 Normal 11.9-15.3 % LAB PLT Platelet Count 225 Normal 150-450 10*3/uL LAB MPV Mean Platelet Volume 8.8 Normal 6.3-10.7 fL LAB NE% Neutrophils % (Auto) 71.5 . % LAB LY% Lymphocytes % (Auto) 19.5 . % LAB MO% Monocytes % (Auto) 6.7 . % LAB EO% Eosinophils % (Auto) 1.7 . % LAB BA% Basophils % (Auto) 0.6 . % LAB NRBC% NRBC% 0.0 Normal 0-0.5 /100{WBC} LAB NE# Neutrophils # (Auto) 4.5 Normal 1.8-7.7 10*3/uL LAB LY# Lymphocytes # (Auto) 1.2 Normal 1.00-4.8 10*3/uL LAB MO# Monocytes # (Auto) 0.4 Normal 0.0-0.8 10*3/uL LAB EO# Eosinophils # (Auto) 0.1 Normal 0.0-0.45 10*3/uL LAB BA# Basophils # (Auto) 0.0 Normal 0.0-0.2 10*3/uL Result Comment: PERFORMED BY : [place] [address] PATHOLOGIST METAL MOVER LEÓN GARCIA M.D. Performed By: #### CUU, A1C WTH eA, CBC, URDS #### [address] #### RPR W RFX, RUBELLA IGG, HBSAG, HCV RX PCR, HIV SCREEN #### [facility] , DRUG SCREEN,URINE Collected: 12/27/2024 7:57 AM Stat us: F Source: [facility] Order Comment: NONFASTING.JK W TYPE CODE TESTS RESULT OUT OF RANGE REFERENCE UNITS LAB URAMPS Amphetamine Screen,Urine Negative Negative LAB URBARBS Barbiturate Screen,Urine Negative Negative LAB URBENZS Benzodiazepines Screen,Urine Negative Negative LAB URCOCS Cocaine Screen,Urine Negative Negative LAB UROPIS Opiate Screen,Urine Negative Negative LAB URPCPS Phencyclidine Screen,Urine Negative Negative LAB URTHCS Cannabinoid Screen,Urine Negative Negative Result Comment: These are un confirmed results and should not be used for legal purposes. Drug Cut-Off Concentration: AMPH 1000 ng/mL ABELARDO 200 ng/mL JESSE 200 ng/mL COCM 300 ng/mL OP 300 ng/mL PCP 25 ng/mL THC 20 ng/mL PERFORMED BY: [place] [address] PATHOLOGIST METAL MOVER LEÓN GARCIA M.D. Performed By: #### CUU, A1C WTH eA, CBC, URDS #### [address] #### RPR W RFX, RUBELLA IGG, HBSAG, HCV RX PCR, HIV SCREEN #### [facility] , A1C WITH ESTIMATED AVERAGE GLU Collected: 12/27/2024 7:57 AM Status: F Source: [facility] Order Comment: NONFASTING.JK W TYPE CODE TESTS RESULT OUT OF RANGE REFERENCE UNITS LAB .A1C Hemoglobin A1C 5.2 Normal 4.3-5.6 % Result Comment: Increased ri sk for diabetes: 5.7 - 6.4 diabetes: >6.4 glycemic control for adults with diabetes: <7.0 LAB eAG Estimated Average Glucose 103 mg/dL Result Comment: PERFORMED BY : [place] [address] PATHOLOGIST METAL MOVER LEÓN GARCIA M.D. Performed By: #### CUU, A1C WTH eA, CBC, URDS #### [address] #### RPR W RFX, RUBELLA IGG, HBSAG, HCV RX PCR, HIV SCREEN #### [facility] , HEP C AB WRFX TO QNT PCR Collected: 12/27/2024 7:57 A M Status: F Source: [facility] Order Comment: NONFASTING.JK W TYPE CODE TESTS RESULT OUT OF RANGE REFERENCE UNITS LAB HCV AB. Hepatitis C Virus Antibody Non Reactive Non Reactive LAB RFXHEPCINTERP Interpretation Hepatitis C Comment . Result Comment: Not infected with HCV unless early or acute infection is suspected (which may be delayed in an immunocompromised individual), or other evidence exists to indicate HCV infection. Performed By: #### CUU, A1C WTH eA, CBC, URDS #### [address] #### RPR W RFX, RUBELLA IGG, HBSAG, HCV RX PCR, HIV SCREEN #### [facility] , HEPATITIS B SURFACE ANTIGEN Collected: 12/27/2024 7:5 7 AM Status: F Source: [facility] Order Comment: NONFASTING.JK W TYPE CODE TESTS RESULT OUT OF RANGE REFERENCE UNITS LAB HBSAG SCR HBsAg Screen Negative Negative Result Comment: Performed at : - [facility] [address] [id number] Clinical Team Lead: Garfield Fay PhD, Phone: [phone] PERFORMED BY: [place] [address] PATHOLOGIST METAL MOVER LEÓN GARCIA M.D. Performed By: #### CUU, A1C WTH eA, CBC, URDS #### [address] [place] [address] [place] #### RPR W RFX, RUBELLA IGG, HBSAG, HCV RX PCR, HIV SCREEN #### [facility] , URINE CULTURE Observed: 12/27/2024 7:57 AM Status: F Source: [facility] NONFASTING.JKW 15,000 colonies/ml mixed bacterial skin contaminants 2 Days PERFORMED BY: [place] [address] PATHOLOGIST METAL MOVER LEÓN GARCIA M.D. Performed By: #### CUU, A1C WTH eA, CBC, URDS #### [address] #### RPR W RFX, RUBELLA IGG, HBSAG, HCV RX PCR, HIV SCREEN #### [facility] , RUBELLA IGG ANTIBODY Collected: 7:57 AM Status: F Source: [facility] Order Comment: NONFASTING.JK W TYPE CODE TESTS RESULT OUT OF RANGE REFERENCE UNITS LAB RUBELLA IGG Rubella IgG Antibody 1.22 Immune >0.99 Result Comment: Non-immune < 0.90 Equivocal 0.90 - 0.99 Immune >0.99 Performed By: #### CUU, A1C WTH eA, CBC, URDS #### [address] #### RPR W RFX, RUBELLA IGG, HBSAG, HCV RX PCR, HIV SCREEN #### [facility] , HIV 1/O/2 ANTIGEN/ANTIBODY Collected: 0 12/27/2024 7:57 AM Status: F Source: [facility] Order Comment: NONFASTING.JK W TYPE CODE TESTS RESULT OUT OF RANGE REFERENCE UNITS LAB HIV SCRN 4TH HIV Screen 4th Generation Non Reactive Non Reactive Result Comment: HIV-1/HIV-2 antibodies and HIV-1 p24 antigen were NOT detected. There is no laboratory evidence of HIV infection. HIV Negative Performed at: [facility] [id number] Clinical Team Lead: Garfield Fay PhD, Phone: [phone] Performed By: #### CUU, A1C WTH eA, CBC, URDS #### [place] [address] [place] #### RPR W RFX, RUBELLA IGG, HBSAG, HCV RX PCR, HIV SCREEN #### [facility] , RPR W/RFX TO QUANT TP ABS Collected: 7:57 AM Status: F Source: [facility] Order Comment: NONFASTING.JK W TYPE CODE TESTS RESULT OUT OF RANGE REFERENCE UNITS LAB RPRRESULT RPR, Rfx Quant RPR Non Reactive Non Reactive Result Comment: Performed at : [facility] [address] [id number] Clinical Team Lead: Garfield Fay PhD, Phone: [phone] PERFORMED BY: [place] [address] PATHOLOGIST METAL MOVER LEÓN GARCIA M.D. Performed By: #### CUU, A1C WTH eA, CBC, URDS #### [address] #### RPR W RFX, RUBELLA IGG, HBSAG, HCV RX PCR, HIV SCREEN #### [facility] , TYPE AND SCREEN Collected: 12/27/2024 7:57 AM Status : F Source: [facility] Order Comment: NONFASTING.JK W TYPE CODE TESTS RESULT OUT OF RANGE REFERENCE UNITS LAB BTV Blood Type B Negative Result Comment: PERFORMED BY : [place] [address] PATHOLOGIST METAL MOVER LEÓN GACRIA M.D. LAB ABS Antibody Screen NEGATIVE Result Comment: PERFORMED BY : [address] [address] PATHOLOGIST METAL MOVER LEÓN GARCIA M.D. US OB TRANSVAGINAL Observed: 12/21/2024 12:54 PM Status: F Source: [facility] EPIC Order Comment: US OB TRANSVA GINAL No LMP recorded. EXAM: US OB TRANSVAGINAL HISTORY: Dating. COMPARISON: None available. TECHNIQUE: Two-dimensional [...] II, MD, PHD at 22-Dec-2024 08:23:50 AM [facility] US OB <= 14 WEEKS FETUS Observed: 2024 9:54 AM Status: COMPLETED Source: [facility] [place] [address] Ultrasound Report Signed Patient: Noris Goetz MR#: [id number] 61 : 1990 Acct:[id number] Age/Sex: 34 / F ADM Date: 12/06/24 Loc: ER Room: Type: [facility] ER Attending Dr: Ordering Provider: Jose Forman DO Date of Service: 12/06/24 US/US OB <= 14 weeks fetus: Abdominal Pain Copies to: Jose Forman DO Obstetrical ultrasound for fetus less than 14 weeks HISTORY: Abdominal pain. Vaginal bleeding COMPARISON: None The heart rate is 126bpm. Ovaries not visualized No free fluid identified in cul-de-sac. No subchorionic hemorrhage identified. [place]-rump length measures 6.4cm consistent with 6 weeks 4 days. The yolk sac is not seen. The estimated due date by this ultrasound is 07/28/2025. US/US OB <= 14 weeks fetus IMPRESSION: Single live anterior gestation 6 weeks 4 days. Impression dictated by: Alfonzo Flores M.D.12/06/2024 9:55 AM Dictation [facility] Tech: Antonieta Greenberg Transcribed By: PWS 12/06/2455 Dictated By: Alfonzo Flores DO 12/06/24 0954 Signed By: <Electronically signed by Alfonzo Flores DO in OV> 12/06/24954 COMPLETE BLOOD COUNT AUTO DIFF Collected: 12/06/2024 8:20 AM Status: F Source: [facility] TYPE CODE TESTS RESULT OUT OF RANGE REFERENCE UNITS LAB WBC White Blood Count 7.6 Normal 3.8-11.6 10*3/uL LAB UNWBC Uncorrected WBC 7.6 Normal 3.8-11.6 10*3/uL LAB RBC Red Blood Count 4.84 Normal 3.60-5.00 10*6/u L LAB HGB Hemoglobin 13.4 Normal 11.8-15.4 g/dL LAB HCT Hematocrit 38.5 Normal 34.0-46.4 % LAB MCV Mean Corpuscular Volume 79.6 Low 80-100 fL LAB MCH Mean Corpuscular Hemoglobin 27.6 Normal 24.7-34.3 pg LAB MCHC Mean Corpuscular HGB Conc 34.7 Normal 32.0-35.0 g/dL LAB RDW Red Cell Distribution Width 13.0 Normal 11.9-15.3 % LAB PLT Platelet Count 230 Normal 150-450 10*3/uL LAB MPV Mean Platelet Volume 8.7 Normal 6.3-10.7 fL LAB MDW Monocyte Distribution Width 16.18 Normal 0.00-20.00 % LAB NE% Neutrophils % (Auto) 78.7 . % LAB LY% Lymphocytes % (Auto) 14.1 . % LAB MO% Monocytes % (Auto) 6.4 . % LAB EO% Eosinophils % (Auto) 0.4 . % LAB BA% Basophils % (Auto) 0.4 . % LAB NRBC% NRBC% 0.0 Normal 0-0.5 /100{WBC } LAB NE# Neutrophils # (Auto) 5.9 Normal 1.8-7.7 10*3/uL LAB LY# Lymphocytes # (Auto) 1.1 Normal 1.00-4.8 10*3/uL LAB MO# Monocytes # (Auto) 0.5 Normal 0.0-0.8 10*3/uL LAB EO# Eosinophils # (Auto) 0.0 Normal 0.0-0.45 10*3/uL LAB BA# Basophils # (Auto) 0.0 Normal 0.0-0.2 10*3/uL Result Comment: PERFORMED BY : [place] [address] PATHOLOGIST METAL MOVER LEÓN GARCIA M.D. Performed By: #### HCGQNT, L IPASE, PT, HS TROP, PTT, CBC, HEPATIC, BMP #### [place] [id number] [facility] TROPONIN I HIGH SENSITIVITY Collected: 12/06/2024 8:2 0 AM Status: F Source: [facility] TYPE CODE TESTS RESULT OUT OF RANGE REFERENCE UNITS LAB HS TROP Troponin I High Sensitivity 3 Normal 0-15 Result Comment: The Troponin units of report have been changed to meet the Chest Pain Accreditation requirement, element EC5.M1l2. Troponin units are changed from pg/ml to ng/L. Also, the decimal is removed and results are in whole numbers. PERFORMED BY: [place] [address] PATHOLOGIST METAL MOVER LEÓN GARCIA M.D. Performed By: #### HCGQNT, L IPASE, PT, HS TROP, PTT, CBC, HEPATIC, BMP #### [facility] [address] [place], [place] [id number] [facility] PROTHROMBIN TIME INR Collected: 12/06/2024 8:20 AM S tatus: F Source: [facility] TYPE CODE TESTS RESULT OUT OF RANGE REFERENCE UNITS LAB R PT Prothrombin Time 12.3 Normal 9.0-12.9 s Result Comment: A hematocrit value greater than 55% may lead to inaccurate results in coagulation testing. Patients having hematocrit values >55% require a special collection tube for coagulation studies. Please contact the laboratory at [phone] for redraw instructions. LAB INR INR 1.1 Result Comment: INR Therapeu tic Range A) Pre- and Peroperative OAT started [...] valves: 3 - 4.5 Performed By: #### HCGQNT, L IPASE, PT, HS TROP, PTT, CBC, HEPATIC, BMP #### [place] [id number] [facility] PARTIAL THROMBOPLASTIN TIME Collected: 12/06/2024 8:2 0 AM Status: F Source: [facility] TYPE CODE TESTS RESULT OUT OF RANGE REFERENCE UNITS LAB PTT Partial Thromboplastin Time 28.1 Normal 25.1-36.5 s Result Comment: A hematocrit value greater than 55% may lead to inaccurate results in coagulation testing. Patients having hematocrit values >55% require a special collection tube for coagulation studies. Please contact the laboratory at [phone] for redraw instructions. PERFORMED BY: [place] [id number] PATHOLOGIST METAL MOVER LEÓN GARCIA M.D. Performed By: #### HCGQNT, L IPASE, PT, HS TROP, PTT, CBC, HEPATIC, BMP #### [place] [id number] [facility] HEPATIC PANEL Collected: 12/06/2024 8:20 AM Status: F Source: [facility] TYPE CODE TESTS RESULT OUT OF RANGE REFERENCE UNITS LAB TP Total Protein 6.7 Normal 6.4-8.9 g/dL LAB ALB Albumin Level 4.1 Normal 3.5-5.7 g/dL LAB GLOB Globulin 2.6 g/dL LAB AGRATIO Albumin/Globulin Ratio 1.6 LAB BILIT Bilirubin,Total 0.5 Normal 0.3-1.0 mg/dL LAB BILID Bilirubin,Direct 0.10 Normal 0.03-0.18 mg/dL LAB BILII Bilirubin,Indirect 0.4 mg/dL LAB AST Aspartate Amino Transferase 12 Low 13-39 U/L LAB ALT Alanine Aminotransferase 11 Normal 7-52 U/L LAB ALP Alkaline Phosphatase 47 Normal 34-104 U/L Performed By: #### HCGQNT, L IPASE, PT, HS TROP, PTT, CBC, HEPATIC, BMP #### [facility] [address] BASIC METABOLIC PANEL Collected: 12/06/2024 8:20 AM Status: F Source: [facility] TYPE CODE TESTS RESULT OUT OF RANGE REFERENCE UNITS LAB GLU Glucose 94 Normal 70-100 mg/dL Result Comment: Random Gluco se Reference Range is dependent on time and content of last meal. Glucose of more than 200 mg/dL in a nonstressed, ambulatory subject supports the diagnosis of Diabetes Mellitus. ADA recommended reference range LAB BUN Blood Urea Nitrogen 9 Normal 7-25 mg/dL LAB CREATT Creatinine 0.70 Normal 0.60-1.20 mg/dL LAB GFReNR Estimated GFR >60.0 mL/Min LAB NA Sodium 134 Low 136-145 mmol/L LAB K Potassium 3.6 Normal 3.5-5.1 mmol/L LAB CL Chloride 106 Normal 98-107 mmol/L LAB CO2 Carbon Dioxide 24.6 Normal 21.0-31.0 mmol/L LAB GAP Anion Gap 7.0 Normal 6.0-15.0 meq/L LAB CA Calcium 9.1 Normal 8.6-10.3 mg/dL LAB CRCLPHA Creatinine Clr Calc Pharmacy 129.71 Performed By: #### HCGQNT, L IPASE, PT, HS TROP, PTT, CBC, HEPATIC, BMP #### [facility] [address] [id number] [facility] LIPASE Collected: 8:20 AM Status: F Source: [facility] TYPE CODE TESTS RESULT OUT OF RANGE REFERENCE UNITS LAB LIPASE Lipase 11.0 Normal 11.0-82.0 U/L Performed By: #### HCGQNT, L IPASE, PT, HS TROP, PTT, CBC, HEPATIC, BMP #### [facility] [address] HCG,QUANTITATIVE Collected: 8:20 AM Status: F Source: [facility] TYPE CODE TESTS RESULT OUT OF RANGE REFERENCE UNITS LAB HCGQNT HCG,Quantit ative 567634.00 m[iU]/mL Result Comment: Approximate Approximate hCG Gestational Age Range (mIU/ml) (weeks) 0.2-1 5-50 1-2 50-500 2-3 100-5,000 3-4 500-10,000 4-5 1,000-50,000 5-6 10,000-100,000 6-8 15,000-200,000 8-12 10,000-100,000 PERFORMED BY: [place] [address] PATHOLOGIST METAL MOVER LEÓN GARCIA M.D. Performed By: #### HCGQNT, L IPASE, PT, HS TROP, PTT, CBC, HEPATIC, BMP #### [facility] [address] [place] [address] ECG 12 LEAD ECG Observed: 12/06/2024 8:13 AM Status: COMPLETED Source: [facility] [place] [address] Electrocardiograph Report Signed Patient: Noris Goetz MR#: [id number] 61 : 1990 Acct:[id number] Age/Sex: 34 / F ADM Date: 12/06/24 Loc: ER Room: Type: [facility] ER Attending Dr: Ordering Provider: [...] branch block Confirmed by Jose FORMAN DO ([id number]) on 12/06/2024 10:38:39 AM Referred By: Electronically Signed By: Jose FORMAN DO Transcribed By: MUS Signed By Jose Forman DO 0 12/06/24 1038 DIPSTICK AND MICROSCOPIC Collected: 8:10 AM Status: F Source: [facility] Order Comment: Name Collecti on Type:: Clean-Voided Midstream TYPE CODE TESTS RESULT OUT OF RANGE REFERENCE UNITS LAB UCOL Color,Urine Yellow Yellow LAB UAPP Appearance,Uri ne Clear Clear LAB USG Specificy [place],Urine 1.025 Normal 1.001-1.030 LAB UPH pH,Urine 6.5 Normal 5.0-9.0 LAB ULE Leukocyte Esterase,Urine Negative Negative LAB UNIT Nitrite,Urine Negative Negative LAB UPRO Protein,Urine Trace High Negative LAB UGL Glucose,Urine (UA) Normal Normal LAB UKET Ketones,Urine 1+ High Negative LAB UURO Urobilinogen,U rine Normal Normal LAB UBIL Bilirubin,Urin e Negative Negative LAB UBLD Occult Blood,Urine Negative Negative LAB URBC RBC,Urine 1-2 0-4 [HPF] LAB UWBC WBC,Urine 1-2 0-4 [HPF] LAB USQEPI Squamous Epithelial Cell,Urine 1-2 0-2 [HPF] LAB UBACT Bacteria,Urine None Seen None Seen LAB UHYALC Hyaline Casts,Urine None 0-8 LAB MUCUS Mucus,Urine Rare Performed By: #### UHCG, ADD ONUAPLUS #### [facility] [address] [place] [address] [place] HCG,URINE Collected: 8:10 AM Status: F Source: [facility] Order Comment: Name Collecti on Type:: Clean-Voided Midstream TYPE CODE TESTS RESULT OUT OF RANGE REFERENCE UNITS LAB UHCGQ HCG Qualitative, Urine Positive High Result Comment: PERFORMED BY : [place] [address] PATHOLOGIST METAL MOVER LEÓN GARCIA M.D. Performed By: #### UHCG, ADD ONUAPLUS #### [facility] [address] [place] [address] XR CHEST 2V* Observed: 08/11/2024 9:58 AM Status: COMPLETED Source: [facility] Main [place] [address] [place] [address] XRay Report Signed Patient: Noris Goetz MR#: [id number] 61 : 1990 Acct:[id number] Age/Sex: 34 / F ADM Date: 08/11/24 Loc: XDUCLY Room: Type: [facility] Attending Dr: Melissa Reddy OYSTER PREPARER Copies to: Melissa Reddy APRN Ordering Provider: [...] Alfonzo Flores M.D.08/11/2024 9:59 AM Dictation Location: [place] [address] Transcribed By: [facility] 08/11/24958 Dictated By: Alfonzo Flores DO 08/11/24957 Signed By: <Electronically signed by Alfonzo Flores DO in OV> 08/11/24958 PATHOLOGY REQUEST FOR LAB MADHAVI Collected: 08/02/2024 9:19 AM Status: F Source: [facility] Order Comment: PATHOLOGY SKI N SPECIMEN TYPE CODE TESTS RESULT OUT OF RANGE REFERENCE UNITS LAB PATH TO [facility] Pathology Request for Lab Madhavi Result Comment: See report. Scanned copy available in EMR. PERFORMED BY: [place] [address] PATHOLOGIST METAL MOVER JOAN CROWLEY M.D. Performed By: #### PATH TO [facility] #### [address] ALLERGIES DATE TYPE / CODE NAME / CODE REACTION SEVERITY SOURCE 08/15/2024 Drug Allergy/634841446 (SNOMED CT) No Known Allergies/[id number] 88(RXNORM) Unknown [facility] ENCOUNTERS ADMIT/DISCHARGE ACCOUNT NUMBER ADMITTING ENCOUNTER CLASS LOCATION SOURCE 07/09/2025/07/09/20 [id number] Ambulatory Building:[facility] EPIC 07/05/2025/07/05/20 25 [id number] Ambulatory Building:[facility] EPIC 06/21/2025/06/21/20 25 [id number] Ambulatory Building:[facility] EPIC 06/21/2025/06/21/20 25 [id number] Ambulatory Building:[facility] EPIC 06/07/2025/06/07/20 25 [id number] Ambulatory Building:[facility] EPIC 05/22/2025/05/22/20 25 [id number] Ambulatory Building:[facility] EPIC 05/22/2025/05/22/20 25 [id number] Ambulatory Building:[facility] EPIC 05/10/2025/05/10/20 25 [id number] Ambulatory Building:[facility] EPIC 04/10/2025/04/10/20 25 [id number] Ambulatory Building:[facility] EPIC 04/02/2025/04/02/20 25 [id number] Ana Lo[facility] 03/15/2025/03/15/20 25 [id number] Ambulatory Building:[facility] 03/15/2025/03/15/20 25 [id number] Ambulatory Building:[facility] 03/14/2025/03/14/20 25 [id number] [facility]bella [facility] 02/15/2025/02/16/20 25 [id number] Ambulatory Building:[facility] EPIC 01/18/2025/01/19/20 25 [id number] Ambulatory Building:[facility] EPIC 12/27/2024/12/28/19 25 [id number] [facility]bella [facility] 12/21/2024/12/22/19 25 [id number] Ambulatory Building:[facility] EPIC 12/21/2024/12/22/19 [id number] Ambulatory Building:[facility] EPIC 12/06/2024/12/06/19 [id number] [facility] 08/11/2024/08/11/20 [id number] Melissa Palacios [facility] 08/01/2024/08/01/20 [id number] Derrick Wilson [facility] PAYERS ENCOUNTER GUARANTOR PAYER SUBSCRIBER SOURCE 07/09/2025 NORIS GOETZDOB: [address] [place] [address]Imm: (HP) Primary Insurance:MEDICAL MUTUALPolicy Number: [id number] Date:2022-10-18 NORIS BOLTONMBDOB: [id number] [address] [place] [address] [facility] EPIC 07/05/2025 NORIS BOLTONMBDOB: [address] [place] [address]Mlk: (HP) Primary Insurance:MEDICAL MUTUALPolicy Number: [id number] Date:2022-10-18 NORIS BOLTONMBDOB: [id number] [address] [place] [address] [facility] EPIC 06/21/2025 NORIS BOLTONMBDOB: [address] [place] [address]Ypy: (HP) Primary Insurance:MEDICAL MUTUALPolicy Number: [id number] Date:2022-10-18 NORIS BOLTONMBDOB: [id number] [address] [place] [address] [facility] EPIC 06/21/2025 NORIS Blevins BUMBDOB: [address] [place] [address]Moj: (HP) Primary Insurance:MEDICAL MUTUALPolicy Number: [id number] Date:2022-10-18 NORIS Gen BUMBDOB: [id number] [address] [place] [address] [facility] EPIC 06/07/2025 NORIS Gen BUMBDOB: [address] [place] [address]Yan: (HP) Primary Insurance:MEDICAL MUTUALPolicy Number: [id number] Date:2022-10-18 NORIS Gen BUMBDOB: [id number] [address] [place] [address] [facility] EPIC 05/22/2025 NORIS Gen CHEMBDOB: [address] [place] [address]Gpt: (HP) Primary Insurance:MEDICAL MUTUALPolicy Number: [id number] Date:2022-10-18 NORIS Gen BOLTONMBDOB: [id number] [address] [place] [address] [facility] EPIC 05/22/2025 NORIS Gen BUMBDOB: [address] [place] [address]Jix: (HP) Primary Insurance:MEDICAL MUTUALPolicy Number: [id number] Date:2022-10-18 NORIS Gen BUMBDOB: [id number] [address] [place] [address] [facility] EPIC 05/10/2025 NORIS Gen BUMBDOB: [address] [place] [address]Wgu: (HP) Primary Insurance:MEDICAL MUTUALPolicy Number: [id number] Date:2022-10-18 NORIS GOETZDOB: [id number] [address] [place] [address] [facility] EPIC 04/10/2025 NORIS GOETZDOB: [address] [place] [address]Noq: (HP) Primary Insurance:MEDICAL MUTUALPolicy Number: [id number] Date:2022-10-18 NORIS GOETZDOB: [id number] [address] [place] [address] [facility] EPIC 04/02/2025 Noris Goetz[address] [facility] [place] [address]Mtn: (HP) Primary Insurance:Self PayPolicy Number: Effective Date:2025-03-21 [facility] 03/15/2025 NORIS GOETZDOB: [address] [place] [address]Xyr: (HP) Primary Insurance:MEDICAL MUTUALPolicy Number: [id number] Date:2022-10-18 NORIS GOETZDOB: [id number] [address] [place] [address] [facility] EPIC 03/15/2025 NORIS GOETZDOB: [address] [place] [address]Cvo: (HP) Primary Insurance:MEDICAL MUTUALPolicy Number: [id number] Date:2022-10-18 NORIS BOLTONMBDOB: [id number] [address] [place] [address] [facility] EPIC 03/14/2025 Noris Goetz[address] [place] [address]Zfz: (HP) Primary Insurance:[facility] EmployeesPolicy Number: [id number] Date:2010-07-95[id number] [place] [address]KC: Noris BoltonmbDOB: [id number] [address] [place] [address]Tel: (HP) [facility] 03/14/2025 Secondary Insurance:FAPPolicy Number: [id number] Date:2025-03-14% 03/29/2025[facility] [place] [address]PT: [phone] Noris BoltonmbDOB: [id number] [address] [place] [address]Oqo: (HP) [facility] 03/14/2025 Tertiary Insurance:Self PayPolicy Number: Effective Date:2025-03-14 [facility] 02/15/2025 NORIS BOLTONMBDOB: [address] [place] [address]Evq: (HP) Primary Insurance:MEDICAL MUTUALPolicy Number: [id number] Date:2022-10-18 NORIS BOLTONMBDOB: [id number] [address] [place] [address] [facility] EPIC 01/18/2025 NORIS BOLTONMBDOB: [address] [place] [address]Qax: (HP) Primary Insurance:MEDICAL MUTUALPolicy Number: [id number] Date:2022-10-18 NORIS Blevins BUMBDOB: [id number] [address] [place] [address] [facility] EPIC 12/27/2024 Noris Boltonmb[address] [place] [address]Tua: (HP) Primary Insurance:[facility] EmployeesPolicy Number: [id number] Date:[id number] [id number] [place] [address]XP: Noris BoltonmbDOB: [id number] [address] [place] [address]Pxw: (HP) [facility] 12/27/2024 Secondary Insurance:FAPPolicy Number: [id number] Date:2024-12-27 - [phone]% 03/29/2025[facility] [place], [place] [address]DN: [phone] Noris BoltonmbDOB: [id number] [address] [place] [address]Gwz: (HP) [facility] 12/27/2024 Tertiary Insurance:Self PayPolicy Number: Effective Date:2024-12-27 [facility] 12/21/2024 NORIS Blevins BISHNUDOB: [address] [place] [address]Wdh: (HP) Primary Insurance:MEDICAL MUTUALPolicy Number: [id number] Date:2022-10-18 NORIS BOLTONMBDOB: [id number] [address] [place] [address] [facility] EPIC 12/21/2024 NORIS Gen CHEMBDOB: [address] [place] [address]Lba: (HP) Primary Insurance:MEDICAL MUTUALPolicy Number: [id number] Date:2022-10-18 NORIS Gen CHEMBDOB: [id number] [address] [place] [address] [facility] EPIC 12/06/2024 Noris Gen BoltonFuse34[address] [place] [address]Jrw: (HP) Primary Insurance:[facility] EmployeesPolicy Number: [id number] Date:2098-39-65VT [id number] [place] [address]WM: Noris BoltonmbDOB: [id number] [address] [place] [address]Qwm: () [facility] 12/06/2024 Secondary Insurance:FAPPolicy Number: [id number] Date:2024-12-06 - [phone]% 03/29/20[place] [address]KX: [phone] Noris BoltonmbDOB: [id number] [address] [place] [address]Mxx: () [facility] 12/06/2024 Tertiary Insurance:Self PayPolicy Number: Effective Date:2024-12-06 [facility] 08/11/2024 Noris Boltonmb16[address] [place] [address]Fmw: () Primary Insurance:[facility] EmployeesPolicy Number: [id number] Date:0022-85-92ND [id number] [place] [address]PF: Noris BoltonmbDOB: [id number] [address] [place] [address]Qzu: () [facility] 08/11/2024 Secondary Insurance:FAPPolicy Number: [id number] Date:2024-08-11 - [id number]% 08/23/24[place] [address]EB: [phone] Noris BoltonmbDOB: [id number] [address] [place] [address]Zob: () [facility] 08/11/2024 Tertiary Insurance:Self PayPolicy Number: Effective Date:2024-08-11 [facility] 08/01/2024 Noris Blevins [id number] [place] [address]Iof: () Primary Insurance:Self PayPolicy Number: Effective Date:2024-08-01 [facility]
--- NOTE | 2025-07-16 | US_ITS ---
The [place] [id number] Patient Name: NORIS SAUCEDA MRN: [id number] date: 1990 Sex: F Assigned Patient Location: [facility] Current Patient Location: [facility] Accession/Order Number: [id number] Exam Date: 07/16/2025 07:36 Report Date: 07/16/2025 08:29 At the request of: MARBELLA OMER DO Procedure: US OB BPP w non-stress BIOPHYSICAL PROFILE: CLINICAL INFORMATION: Multigravida of advanced maternal age O09.523 COMPARISON: 07/11/2025 There is a single live intrauterine gestation in cephalic presentation. The reported gestational age is 38 weeks 2 days. The heart rate measures 135 beats per minute. FINDINGS: TONE: 1 or more episodes of activity extension and flexion of extremity or opening and closing of the hand [Y] 2/2 GROSS BODY MOVEMENTS: 3 or more discrete body or limb movements [Y] 2/2 BREATHING MOVEMENTS: 1 or more episodes of breathing lasting at least 30 seconds [Y] 2/2 GRAYSON: A single deepest vertical pocket of amniotic fluid greater than 2 cm [Y] 2/2 GRAYSON: 17.9 cm Total score: 8/8 US/US OB BPP w non-stress IMPRESSION: NORMAL BIOPHYSICAL PROFILE Impression dictated by: Annel Barnhart M.D. 07/16/2025 8:29 AM Dictation Location: [place] [address] Electronically authenticated by: [id number] Y Date: 07/16/2025 08:29
[2025-07-16 07:53] VITALS: BP 115/59; PULSE 90
== END 2025-07-16 08:37 | disposition home or self-care (01) ==
LOC: US 07:32 → FBC 07:34
PROVIDERS: Family Provider Family Medicine; PCP Family Medicine; Visit Provider Obstetrics & Gynecology
DX: O26.893 Other specified pregnancy related conditions, third trimester (principal); O09.523 Supervision of elderly multigravida, third trimester; Z3A.28 28 weeks gestation of pregnancy
CPT/HCPCS: 76818

== ENCOUNTER 2025-07-19 08:35 | Outpatient (OUT) | payer OTHER, SELFPAY ==
--- OUTSIDE RECORDS SUMMARY | 2014-02-14 01:42 | XMS_ITS | Encounter Summary ---
Author Organization [facility] Address [address], [address] [place] [address] Care Team Providers Care Solder Making Laborer Name Role Phone Unavailable Primary Care Provider Unavailabl e Encounter Details Date Type Department Care Team (Late st Contact Info) Description 02/14/2014 1:42 AM EDT Hospital Encounter [facility] [address] [phone] Kalen Sorenson MD [address] [facility] [address] [place] [address] Social History Tobacco Use Types Packs/Day Years Used Date Smoking Tobacco: Never Smokeless Tobacco: Never Alcohol Use Standard Drinks/Week Comments No 0 (1 standard drink = 0.6 oz pur e alcohol) very rarely PHQ-2 Answer Date Recorded PHQ-2 Score 0 01/18/2019 Comments No Sex and Gender Information Value Date Recorded Sex Assigned at Not on file Legal Sex Female 12:35 PM EST Gender Identity Not on file Sexual Orientation Not on file documented as of this encounter Plan of Treatment Not on file documented as of this encounter Procedures Procedure Name Priority Date/Time Associated Diagnosis Comments GLUCOSE, WHOLE BLOOD Routine 02/14/2014 7:08 AM EDT GLUCOSE TOLERANCE, 3 HOURS Routine 02/14/2014 6:59 AM EDT documented in this encounter Results * Glucose, Whole Blood (02/14/2014 7:08 AM EDT) POC Glucose 76 74 - 100 mg/dL 02/14/2014 7:15 AM EDT [facility] 02/14/2014 7:08 AM EDT 02/14/2014 7:15 AM EDT Kalen Sorenson MD CHEMISTRY ORDERABLES Final Re sult Performing Organization Address City/[facility]/ZIP Co de Phone Number [facility] [address] [place] [address] * (ABNORMAL) Glucose tolerance, 3 hours (02/14/2014 6:59 AM EDT) Amount Glucose Given 100 g 02/14/2014 7:01 AM EDT [facility] Glucose, Fasting 80 65 - 99 mg/dL 02/14/2014 8:09 AM EDT [facility] Glucose, GTT - 1 Hour 227(H) 65 - 184 mg/dL 02/14/2014 8:59 AM EDT [facility] Glucose, GTT - 2 Hour 227(H) 65 - 139 mg/dL 02/14/2014 11:02 AM EDT [facility] Glucose, GTT - 3 Hour 135(H) 65 - 130 mg/dL 02/14/2014 11:01 AM EDT [facility] Comment: Performed at [address] [place], [place] [id number] ([phone] 02/14/2014 6:59 AM EDT 02/14/2014 7:00 AM EDT us Kalen Sorenson MD CHEMISTRY ORDERABLES Final Re sult Performing Organization Address [facility]/ZIP Co de Phone Number [facility] [address] [place], [place] [id number], [facility] [phone] [facility] documented in this encounter Visit Diagnoses Not on filedocumented in this encounter
--- OUTSIDE RECORDS SUMMARY | 2025-07-05 09:50 | XMS_ITS | Encounter Summary ---
Author Organization [facility] Address [address] [place] [address] Care Team Providers Care [facility] Specialist Name Role Phone Kathy Reynaga MD Primary Care Provider [phone] Reason for Visit * Reason Comments Routine Visit Encounter Details Date Type Department Care Team (Latest Contact Info) Description 07/05/2025 9:50 AM EDT Routine [facility] [address] [place] [phone] Yasmani Abdullahi DO [address] [place] [address] 36 weeks gestation of ([facility] Third trimester ([facility]); Multigravida of advanced maternal age in third trimester ([facility]); History of molar ; Antepartum multigravida of advanced maternal age ([facility]) Social History Tobacco Use Types Packs/Day [...] Sign Reading Time Taken Comments Blood Pressure 110/78 07/05/2025 9:48 AM EDT Pulse - - Temperature - - Respiratory Rate - - Oxygen Saturation - - Inhaled Oxygen Concentration - - Weight 106 kg (233 lb 12.8 oz) 07/05/2025 9:48 A M EDT Height - - Body Mass Index 35.55 12/15/2022 12:00 PM EST documented in this encounter Progress Notes * Eugeniapatrick Bridges LPN - 07/05/2025 9:50 AM EDT Reason for Appointment: Patient [...] Medical History: Diagnosis Date Anxiety Melanoma ([facility]) 2021 HISTORY PAST MEDICAL HISTORY [...] nursing note reviewed. Exam conducted with a post doc fellowship present. Vitals: Estimated body mass index is 35.55 kg/m?? as calculated from the following: Height as of 12/15/22: 5' 8 . Weight as of this encounter: 233 lb 12.8 oz. BP: 110/78 Patient's last menstrual period was 10/21/2024. ASSESSMENT & PLAN ICD-10-CM 1. 36 weeks gestation of ([facility]) Z3A.36 POCT urinalysis dipstick manually resulted 2. Third trimester ([facility]) Z34.93 POCT urinalysis dipstick manually resulted CULTURE, GROUP B STREP WITH SUSCEPTIBLITY CULTURE, GROUP B STREP WITH SUSCEPTIBLITY 3. Multigravida of advanced maternal age in third trimester ([facility]) O09.523 4. History of molar Z87.59 5. Antepartum multigravida of advanced maternal age ([facility]) O09.529 Patient is doing well but has complaints of being tired and having maternal discomfort due to . Patient verbalized frequent movement and was instructed to perform kick counts three times per day. labor precautions were given, LARC consent was signed/declined, and GBS was obtained. Cervical check was performed and patient is 2cm-3cm dilated. Orders Placed This Encounter Procedures CULTURE, GROUP B STREP WITH SUSCEPTIBLITY POCT urinalysis dipstick manually resulted Follow Up: Patient is to return to office in 1 week for routine OB appointment Documented by Eugenia Bridges LPN on behalf of: Yasmani Abdullahi DO documented in this encounter Plan of Treatment Upcoming Encounters Date Type Department Care Team (Late st Contact Info) Description 07/19/2025 9:50 AM EDT Routine [facility] [address] [place] [address] Lanie Mendez, [employer] [address] [place] [phone] 08/28/2025 10:10 AM EST Visit [facility] [address] [place] [address] Yasmani Abdullahi DO [address] [place] [address] documented as of this encounter Procedures Procedure Name Priority Date/Time Associated Diagnosis Comments POCT URINALYSIS DIPSTICK Routine 07/05/2025 9:55 AM EDT 36 weeks gestation of ([facility]) Third trimester ([facility]) CULTURE, GROUP B STREP WITH SUSCEPTIBLITY Routine 07/05/2025 9:43 AM EDT Third trimester ([facility]) documented in this encounter Results * (ABNORMAL) POCT urinalysis dipstick manually resulted (07/05/2025 9:55 AM EDT) Color, UA Yellow Clarity, UA Clear Glucose, UA Positive Negative - 1999(110) ++++ mg/dL Bilirubin, UA Negative Negative - 4(70) +++ mg/dL Ketones, UA Negative Negative - 160(16) ++++ mg/dL Spec Grav, UA 1.010 1 - 1.03 Blood, UA Negative Negative - 50 Tavon/mcL pH, UA 6.5 5 - 9 Protein, UA Negative Negative - 1999(20) ++++ mg/dL Urobilinogen, UA 1.0 0.2 - 12 mg/dL Leukocytes, UA Positive Negative - 500+++ Bertha/mcL Nitrite, UA Negative Negative - Positive Urine 07/05/2025 9:55 AM EDT us Yasmani Kaylen DO POINT OF CARE TEST ENTER/EDIT OR DERABLES Final Result * CULTURE, GROUP B STREP WITH SUSCEPTIBLITY (07/05/2025 9:43 AM EDT) Swab 07/05/2025 9:43 AM EDT us Yasmani Kaylen DO LAB BLOOD ORDERABLES Final Resul t EXTERNAL LAB documented in this encounter Visit Diagnoses Diagnosis 36 weeks gestation of ([facility]) Third trimester ([facility]) state, incidental Multigravida of advanced maternal age in third trimester ([facility]) History of molar Antepartum multigravida of advanced maternal age ([facility]) documented in this encounter Care Teams Ncqa Specialist 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 Specialty Start Date End Date Kathy Reynaga MD [address] [place] [phone] PCP - General Family Medicine 01/27/24 documented as of this encounter
--- OUTSIDE RECORDS SUMMARY | 2025-07-09 16:10 | XMS_ITS | Encounter Summary ---
Author Organization [facility] Address [address] [place] [address] Care Team Providers Care Wholesale Account Manager Name Role Phone Kathy Reynaga MD Primary Care Provider [phone] Encounter Details Date Type Department Care Team (Late st Contact Info) Description 07/09/2025 4:10 PM EDT [facility]ine [facility] [address] [place] [phone] Yasmani Abdullahi DO [address] [place], [facility]11 Third trimester ([facility] Social History Tobacco Use Types Packs/Day [...] AM EDT documented as of this encounter Progress Notes * Lanie Mendez NP - 07/09/2025 4:10 PM EDT Reason for Appointment: Patient ID: Treva Goetz is a 35 y.o. female who presents for No chief complaint on file. Patient presents today for Return OB appointment. [...] nursing note reviewed. Exam conducted with a assistant secretary present. Vitals: Estimated body mass index is 35.55 kg/m?? as calculated from the following: Height as of 12/15/22: 5' 8 . Weight as of 07/05/25: 233 lb 12.8 oz. BP: Patient's last menstrual period was 10/21/2024. ASSESSMENT & PLAN No diagnosis found. Return OB: Patient presents today for a routine obstetrics appointment. Patient is currently 37w2d . Patient states she is doing well but has complaints of being tired due to current . Patient has verbalizes frequent movement. labor precautions was discussed/given and patient was instructed to perform kick counts three times a day. No orders of the defined types were placed in this encounter. Follow Up: Patient is to return to office in 1 week for routine OB appointment. Documented by Lanie Mendez NP on behalf of: Yasmani Abdullahi DO documented in this encounter Plan of Treatment Upcoming Encounters Date Type Department Care Team (Late st Contact Info) Description 07/19/2025 9:50 AM EDT Routine [facility] [address] [place] [address] Lanie Mendez NP [address] [place] [address] 08/28/2025 10:10 AM EST Visit [facility] [address] [facility] [place] [address] Yasmani Abdullahi DO [address] [place] [address] documented as of this encounter Procedures Procedure Name Priority Date/Time Associated Diagnosis Comments POCT URINALYSIS DIPSTICK Routine 07/09/2025 4:44 PM EDT Third trimester ([facility]) documented in this encounter Results * (ABNORMAL) POCT urinalysis dipstick manually resulted (07/09/2025 4:44 PM EDT) Color, UA Yellow Clarity, UA Clear Glucose, UA Negative Negative - 1999(110) ++++ mg/dL Bilirubin, UA Negative Negative - 4(70) +++ mg/dL Ketones, UA Negative Negative - 160(16) ++++ mg/dL Spec Grav, UA 1.015 1 - 1.03 Blood, UA Negative Negative - 50 Tavon/mcL pH, UA 6.0 5 - 9 Protein, UA Negative Negative - 1999(20) ++++ mg/dL Urobilinogen, UA 0.2 0.2 - 12 mg/dL Leukocytes, UA 2+ Negative - 500+++ Bertha/mcL Nitrite, UA Negative Negative - Positive Urine 07/09/2025 4:44 PM EDT Yasmani Abdullahi DO POINT OF CARE TEST ENTER/EDIT OR DERABLES Final Result documented in this encounter Visit Diagnoses Diagnosis Third trimester ([facility]) state, incidental documented in this encounter Care Teams Wholesale Account Manager 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 Specialty Start Date End Date Kathy Reynaga MD [address] [place] [address] PCP - General Family Medicine 01/27/24 documented as of this encounter
--- OUTSIDE RECORDS SUMMARY | 2025-07-19 08:37 | XMS_ITS | Encounter Summary ---
Author Organization [facility] Address [address] [place] [address] Care Team Providers Care Warp Knit Operator Name Role Phone Kathy Reynaga MD Primary Care Provider [phone] Encounter Details Date Type Department Care Team (Late st Contact Info) Description 07/11/2025 Clinisync Result Encounter [facility] External Department Unsolicited Yasmani Abdullahi DO [address], [facility]11 Social History Tobacco Use Types Packs/Day Years [...] Routine [facility] [address] [place] [phone] Lanie Mendez, MILK TANKER DRIVER [address] [place] [address] 08/28/2025 10:10 AM EST Visit [facility] [address] [facility] [place] [phone] Yasmani Abdullahi DO [address] [place] [address] [place], [facility]11 documented as of this encounter Procedures Procedure Name Priority Date/Time Associated Diagnosis Comments US OB BPP W NON-STRESS 07/11/2025 9:20 AM EDT documented in this encounter Results * US OB BPP W NON-STRESS (07/11/2025 9:20 AM EDT) Anatomical Region Laterality Modality Other 07/11/2025 9:20 AM EDT Narrative 07/11/2025 9:22 AM EDT [place] [id number] Ultrasound Report Signed Patient: TREVA GOETZ MR#: [id number] : 1990 Acct:[id number] Age/Sex: 35 / F ADM Date: 07/11/25 Loc: [place] [address]: Yasmani Abdullahi D.O. Ordering Physician: Yasmani Abdullahi D.O. Date of Service: 07/11/25 Procedure(s): US OB BPP w non-stress Accession Number(s): [id number] cc: Kathy Reynaga M.D.; Yasmani Abdullahi D.O. The [address] [address] Patient Name: TREVA GOETZ MRN: [id number] date: 1990 Sex: F Assigned Patient Location: [facility] Current Patient Location: [facility] Accession/Order Number: [id number] Exam Date: 07/11/2025 07:37 Report Date: 07/11/2025 09:20 At the request of: YASMANI ABDULLAHI DO Procedure: US OB BPP w non-stress Biophysical profile. Reason for exam: Advanced maternal age COMPARISON: 07/04/2025 TECHNIQUE: Transabdominal imaging of the gravid uterus was obtained. FINDINGS: The analysis analyst reports a BPP of 8 out of 8. GRAYSON is normal at 19.8 cm. heart rate 139 bpm. US/US OB BPP w non-stress IMPRESSION: BPP 8 out of 8. Impression dictated by: Minh Potter Jr., D.O. 07/11/2025 9:20 AM Dictation Location: [place] [address] Electronically authenticated by: [id number] Y Date: 07/11/2025 09:20 Dictated By: Minh Potter M.D. Signed By: 07/11/25921 DD/ 9 TD/TT: Smoking Pipe Liner: Procedure Note Radiology, Radiologist, MD - 07/11/2025 [place] [address] Ultrasound Report Signed Patient: TREVA GOETZ EMR#: [id number] : 1990Acct:[id number] Age/Sex: 35 / FADM Date: 07/11/25 Loc: [facility] 250-[address]: Yasmani Abdullahi D.O. Ordering Physician: Yasmani Abdullahi D.O. Date of Service: 07/11/25 Procedure(s): US OB BPP w non-stress Accession Number(s): [id number] cc: Kathy Reynaga M.D.; Yasmani Abdullahi D.O. The [place] [id number] Patient Name: TREVA GOETZ MRN: [id number] date: 1990 Sex: F Assigned Patient Location: [facility] Current Patient Location: [facility] Accession/Order Number: [id number] Exam Date: 07/11/2025 07:37 Report Date: 07/11/2025 09:20 At the request of: YASMANI ABDULLAHI DO Procedure: US OB BPP w non-stress Biophysical profile. Reason for exam: Advanced maternal age COMPARISON: 07/04/2025 TECHNIQUE: Transabdominal imaging of the gravid uterus was obtained. FINDINGS: The analysis analyst reports a BPP of 8 out of 8. GRAYSON is normal at19.8 cm. heart rate 139 bpm. US/US OB BPP w non-stress IMPRESSION: BPP 8 out of 8. Impression dictated by: Minh Potter Jr., D.O. 07/11/2025 9:20 AM Dictation Location: [employer] Electronically authenticated by: [id number] Y Date: 9:20 Dictated By: Minh Potter M.D. Signed By:07/11/25921 DD/ 9 TD/TT: Smoking Pipe Liner: us Yasmani Kaylen DO [facility] Final Result documented in this encounter Visit Diagnoses Not on filedocumented in this encounter Care Teams Warp Knit Operator 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 Specialty Start Date End Date Kathy Reynaga MD [address] [place] [address] PCP - General Family Medicine 01/27/24 documented as of this encounter
--- OUTSIDE RECORDS SUMMARY | 2025-07-19 08:37 | XMS_ITS | Encounter Summary ---
Author Organization [facility] Address [address] [place] [address] Care Team Providers Care Molder Shoulder Pad Name Role Phone Kathy Reynaga MD Primary Care Provider [phone] Encounter Details Date Type Department Care Team (Late st Contact Info) Description 07/16/2025 Clinisync Result Encounter [facility]OMS External Department Unsolicited Yasmani Abdullahi DO [address] [place], [facility]11 Social History Tobacco Use Types Packs/Day Years [...] Routine [facility] [address] [place] [address] Lanie Mendez, FORKLIFT TRUCK MECHANIC [address] [place] [address] 08/28/2025 10:10 AM EST Visit [facility] [address] [facility] [place] [address] Yasmani Abdullahi DO [address] [place], [facility]11 documented as of this encounter Procedures Procedure Name Priority Date/Time Associated Diagnosis Comments US OB BPP W NON-STRESS 07/16/2025 8:29 AM EDT documented in this encounter Results * US OB BPP W NON-STRESS (07/16/2025 8:29 AM EDT) Anatomical Region Laterality Modality Other 07/16/2025 8:29 AM EDT Narrative 07/16/2025 8:32 [place] [address] Ultrasound Report Signed Patient: TREVA GOETZ MR#: [id number] : 1990 Acct:[id number] Age/Sex: 35 / F ADM Date: 07/16/25 Loc: [facility] 250-[address]: Yasmani Abdullahi D.O. Ordering Physician: Yasmani Abdullahi D.O. Date of Service: 07/16/25 Procedure(s): US OB BPP w non-stress Accession Number(s): [id number] cc: Kathy Reynaga M.D.; Yasmani Abdullahi D.O. The [address] [address] Patient Name: TREVA GOETZ MRN: [id number] date: 1990 Sex: F Assigned Patient Location: [facility] Current Patient Location: [facility] Accession/Order Number: [id number] Exam Date: 07/16/2025 07:36 Report Date: 07/16/2025 08:29 At the request of: YASMANI ABDULLAHI DO Procedure: US OB BPP w non-stress BIOPHYSICAL PROFILE: CLINICAL INFORMATION: Multigravida of advanced maternal age O09.523 COMPARISON: 07/11/2025 There is a single live intrauterine gestation in cephalic presentation. The reported gestational age is 38 weeks 2 days. The heart rate measures 135 beats per minute. FINDINGS: TONE: 1 or [...] greater than 2 cm [Y] 2/2 GRAYSON: 17.9 cm Total score: 05/25 US/US OB BPP w non-stress IMPRESSION: NORMAL BIOPHYSICAL PROFILE Impression dictated by: Annel Barnhart M.D. 07/16/2025 8:29 AM Dictation Location: [place] [address] Electronically authenticated by: [id number] Y Date: 07/16/2025 08:29 Dictated By: Annel Barnhart M.D. Signed By: 07/16/2532 DD/ 8 TD/TT: Consulting Sme: Procedure Note Radiology, Radiologist, - 07/16/2025 [place] [address] Ultrasound Report Signed Patient: TREVA GOETZ EMR#: [id number] : 1990Acct:[id number] Age/Sex: 35 / FADM Date: 07/16/25 Loc: [facility] 250-[address]: Yasmani Abdullahi D.O. Ordering Physician: Yasmani Abdullahi D.O. Date of Service: 07/16/25 Procedure(s): US OB BPP w non-stress Accession Number(s): [id number] cc: Kathy Reynaga M.D.; Yasmani Abdullahi D.O. The [place] [id number] Patient Name: TREVA GOETZ MRN: [facility]:[id number] date: 1990 Sex: F Assigned Patient Location: [facility] Current Patient Location: [facility] Accession/Order Number: [id number] Exam Date: 07/16/2025 07:36 Report Date: 07/16/2025 08:29 At the request of: YASMANI ABDULLAHI DO Procedure: US OB BPP w non-stress BIOPHYSICAL PROFILE: CLINICAL INFORMATION: Multigravida of advanced maternal age O09.523 COMPARISON: 07/11/2025 There is a single live intrauterine gestation in cephalic presentation.The reported gestational age is 38 weeks 2 days. The heart ratemeasures 135 beats per minute. FINDINGS: TONE: 1 or [...] greater than 2 cm [Y] 2/2 GRAYSON: 17.9 cm Total score: 8/8 US/US OB BPP w non-stress IMPRESSION: NORMAL BIOPHYSICAL PROFILE Impression dictated by: Annel Barnhart M.D. 07/16/2025 8:29 AM Dictation Location: [place] [address] Electronically authenticated by: [id number] Y Date: 508:29 Dictated By: Annel Barnhart M.D. Signed By:07/16/2532 DD/ 8 TD/TT: Consulting Sme: Yasmani Abdullahi DO [facility] Final Result documented in this encounter Visit Diagnoses Not on filedocumented in this encounter Care Teams Molder Shoulder Pad 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 Specialty Start Date End Date Kathy Reynaga MD [address] [place] [address] PCP - General Family Medicine 01/27/24 documented as of this encounter
--- OUTSIDE RECORDS SUMMARY | 2025-07-19 08:37 | XMS_ITS | Encounter Summary ---
Author Organization [facility] Address [address] [place] [address] Care Team Providers Care Scrap Wheeler Name Role Phone Kathy Reynaga MD Primary Care Provider [phone] Encounter Details Date Type Department Care Team (Late st Contact Info) Description 07/09/2025 Bamboo flowsheet [facility] [address] [facility] [place] [address] Yasmani Abdullahi DO [address] [facility] [address] [place], [place] [address] Social History Tobacco Use Types Packs/Day Years [...] Routine [facility] [address] [place] [address] Lanie Mendez, GAS FURNACE INSTALLER [address] [place] [address] 08/28/2025 10:10 AM EST Visit [facility] [address] [place] [phone] Yasmani Abdullahi DO [address] [facility] [place] [address] documented as of this encounter Visit Diagnoses Not on filedocumented in this encounter Care Teams Scrap Wheeler 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 Specialty Start Date End Date Kathy Reynaga MD [address] [facility] [place] [address] PCP - General Family Medicine 01/27/24 documented as of this encounter
--- OUTSIDE RECORDS SUMMARY | 2025-07-19 08:38 | XMS_ITS | Encounter Summary ---
Author Organization [facility] Address [address] [place] [address] Care Team Providers Care Culinary Assistant Name Role Phone Kathy Reynaga MD Primary Care Provider [phone] Encounter Details Date Type Department Care Team (Late st Contact Info) Description 12/25/2024 Abstract [facility] [address] [place] [address] Yasmani Abdullahi DO [address] [place], [place] [address] Social History Tobacco Use Types Packs/Day Years [...] EDT Routine [facility] [address] [place] [address] Lanie Mendez, ASSOCIATE PROFESSOR OF ECONOMICS [address] [place] [address] 08/28/2025 10:10 AM EST Visit [facility] [address] [facility] [phone] Yasmani Abdullahi DO [address] [facility] [place] [address] documented as of this encounter Visit Diagnoses Not on filedocumented in this encounter Care Teams Culinary Assistant 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 Specialty Start Date End Date Kathy Reynaga MD [address] [facility] [place] [phone] PCP - General Family Medicine 01/27/24 documented as of this encounter
--- OUTSIDE RECORDS SUMMARY | 2025-07-19 08:38 | XMS_ITS | Encounter Summary ---
Author Organization [facility] Address [address] [place] [address] Care Team Providers Care Prototype Deicer Assembler Name Role Phone Kathy Reynaga MD Primary Care Provider [phone] Encounter Details Date Type Department Care Team (Late st Contact Info) Description 12/11/2024 Abstract [facility] [address] [place] [address] Yasmani Abdullahi DO [address] [facility] [address] [place], [facility]11 Social History Tobacco Use Types Packs/Day Years [...] Info) Description 07/19/2025 9:50 AM EDT Routine [facility] [address] [place] [address] Lanie Mendez, SAMUEL [address] [facility] [place] [phone] 08/28/2025 10:10 AM EST Visit [facility] [address] [place] [address] Yasmani Abdullahi DO [address] [facility] [address] [place], [place] [address] documented as of this encounter Visit Diagnoses Not on filedocumented in this encounter Care Teams Prototype Deicer Assembler 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 Specialty Start Date End Date Kathy Reynaga MD [address] [place] [address] [place] [address] PCP - General Family Medicine 01/27/24 documented as of this encounter
--- OUTSIDE RECORDS SUMMARY | 2025-07-19 08:38 | XMS_ITS | Encounter Summary ---
Author Organization [facility] Address [address] [place] [address] Care Team Providers Care Inspector And Sorter Name Role Phone Kathy Reynaga MD Primary Care Provider Encounter Details Date Type Department Care Team (Late st Contact Info) Description 12/28/2024 Abstract [facility] [address] [place] [address] Yasmani Abdullahi DO [address] [place], [place] [address] Social History Tobacco Use Types Packs/Day Years [...] [facility] [address] [place] [address] Lanie Mendez, RECORDER OF DEEDS [address] [place] [address] 08/28/2025 10:10 AM EST Visit [facility] [address] [facility] [place] [address] Yasmani Abdullahi DO [address] [facility] [place] [address] documented as of this encounter Visit Diagnoses Not on filedocumented in this encounter Care Teams Inspector And Sorter 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 Specialty Start Date End Date Kathy Reynaga MD [address] [facility] [place] [phone] PCP - General Family Medicine 01/27/24 documented as of this encounter
--- OUTSIDE RECORDS SUMMARY | 2025-07-19 08:38 | XMS_ITS | Encounter Summary ---
Author Organization [facility] Address [address] [facility], [address] [place] [address] Care Team Providers Care Geospatial Imagery Intelligence Analyst Name Role Phone Kathy Reynaga MD Primary Care Provider [phone] Encounter Details Date Type Department Care Team (Late st Contact Info) Description 10/17/2016 FollowUp Telephone Encounter [facility] [address] [place] [phone] Anneliese Perkins, RN Social History Tobacco Use [...] on filedocumented in this encounter Care Teams Geospatial Imagery Intelligence Analyst 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 Specialty Start Date End Date Kathy Reynaga MD PCP - General 07/15/16 documented as of this encounter
--- OUTSIDE RECORDS SUMMARY | 2025-07-19 08:38 | XMS_ITS | Encounter Summary ---
Author Organization [facility] Address [address] [place] [address] Care Team Providers Care Oracle Erp Developer Name Role Phone Kathy Reynaga MD Primary Care Provider [phone] Encounter Details Date Type Department Care Team (Late st Contact Info) Description 12/27/2024 Abstract [facility] [address] [place] [address] Yasmani Abdullahi DO [address] [place], [place] [address] Social History Tobacco Use Types Packs/Day Years [...] EDT Routine [facility] [address] [place] [address] Lanie Mendez, SYSTEM SAFETY ENGINEER [address] [place] [address] 08/28/2025 10:10 AM EST Visit [facility] [address] [facility] [place] [address] Yasmani Abdullahi DO [address] [facility] [place] [address] documented as of this encounter Visit Diagnoses Not on filedocumented in this encounter Care Teams Oracle Erp Developer 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 Specialty Start Date End Date Kathy Reynaga MD [address] [facility] [place] [phone] PCP - General Family Medicine 01/27/24 documented as of this encounter
--- OUTSIDE RECORDS SUMMARY | 2025-07-19 08:38 | XMS_ITS | Encounter Summary ---
Author Organization [facility] Address [address] [place] [address] Care Team Providers Care Chemical Compounder Name Role Phone Kathy Reynaga MD Primary Care Provider [phone] Encounter Details Date Type Department Care Team (Late st Contact Info) Description 12/29/2024 Abstract [facility] [address] [place] [address] Yasmani Abdullahi DO [address], [place] [address] Social History Tobacco Use Types Packs/Day Years [...] Routine [facility] [address] [place] [address] Lanie Mendez, AGRICULTURE ENGINEER [address] [place] [address] 08/28/2025 10:10 AM EST Visit [facility] [address] [facility] [place] [address] Yasmani Abdullahi DO [address] [facility] [place] [address] documented as of this encounter Visit Diagnoses Not on filedocumented in this encounter Care Teams Chemical Compounder 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 Specialty Start Date End Date Kathy Reynaga MD [address] [facility] [place] [phone] PCP - General Family Medicine 01/27/24 documented as of this encounter
--- OUTSIDE RECORDS SUMMARY | 2025-07-19 08:38 | XMS_ITS | Encounter Summary ---
Author Organization [facility] Address [address], [address] [place] [address] Care Team Providers Care Dye House Wheel Operator Name Role Phone Kathy Reynaga MD Primary Care Provider [phone] Encounter Details Date Type Department Care Team (Late st Contact Info) Description 10/09/2016 FollowUp Telephone Encounter [facility] Labor and Delivery [address] [place], [place] [id number] Nelsy Guardado, [place] [address] Social History Tobacco Use Types Packs/Day Years [...] on filedocumented in this encounter Care Teams Dye House Wheel Operator 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 Specialty Start Date End Date Kathy Reynaga MD PCP - General 07/15/16 documented as of this encounter
--- OUTSIDE RECORDS SUMMARY | 2025-07-19 08:38 | XMS_ITS | Encounter Summary ---
Author Organization [facility] Address [address] [place] [address] Care Team Providers Care Washing Machine Operator Name Role Phone Kathy Reynaga MD Primary Care Provider [phone] Encounter Details Date Type Department Care Team (Late st Contact Info) Description 07/05/2025 Bamboo flowsheet [facility] [address] [facility] [place] [address] Yasmani Abdullahi DO [address] [facility] [address] [place], [place] [address] Social History Tobacco Use Types Packs/Day Years [...] Routine [facility] [address] [place] [address] Lanie Mendez, CHRONOMETER ASSEMBLER [address] [place] [address] 08/28/2025 10:10 AM EST Visit [facility] [address] [place] [address] Yasmani Abdullahi DO [address] [facility] [place] [address] documented as of this encounter Visit Diagnoses Not on filedocumented in this encounter Care Teams Washing Machine Operator 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 Specialty Start Date End Date Kathy Reynaga MD [address] [facility] [place] [address] PCP - General Family Medicine 01/27/24 documented as of this encounter
--- OUTSIDE RECORDS SUMMARY | 2025-07-19 08:38 | XMS_ITS | Encounter Summary ---
Author Organization [facility] Address [address] [place] [address] Care Team Providers Care State Patrol Officer Name Role Phone Kathy Reynaga MD Primary Care Provider [phone] Encounter Details Date Type Department Care Team (Late st Contact Info) Description 12/29/2024 Abstract [facility] [address] [place] [address] Yasmani Abdullahi DO [address] [place], [place] [address] Social History Tobacco Use Types Packs/Day Years [...] Routine [facility] [address] [place] [address] Lanie Mendez, PROCESS CONSULTANT [address] [place] [address] 08/28/2025 10:10 AM EST Visit [facility] [address] [facility] [place] [address] Yasmani Abdullahi DO [address] [facility] [place] [address] documented as of this encounter Visit Diagnoses Not on filedocumented in this encounter Care Teams State Patrol Officer 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 Specialty Start Date End Date Kathy Reynaga MD [address] [facility] [place] [phone] PCP - General Family Medicine 01/27/24 documented as of this encounter
--- OUTSIDE RECORDS SUMMARY | 2025-07-19 08:39 | XMS_ITS | Encounter Summary ---
Author Organization [facility] Address [address] [place] [address] Care Team Providers Care Grain Miller Helper Name Role Phone Kathy Reynaga MD Primary Care Provider [phone] Encounter Details Date Type Department Care Team (Late st Contact Info) Description 05/09/2025 Abstract [facility] [address] [place] [address] Yasmani Abdullahi DO [address] [place], [place] [address] Social History Tobacco Use Types Packs/Day Years [...] EDT Routine [facility] [address] [place] [address] Lanie Mendez, TABLE FILLER [address] [place] [address] 08/28/2025 10:10 AM EST Visit [facility] [address] [facility] [place] [address] Yasmani Abdullahi DO [address] [facility] [place] [address] documented as of this encounter Visit Diagnoses Not on filedocumented in this encounter Care Teams Grain Miller Helper 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 Specialty Start Date End Date Kathy Reynaga MD [address] [facility] [place] [phone] PCP - General Family Medicine 01/27/24 documented as of this encounter
--- OUTSIDE RECORDS SUMMARY | 2025-07-19 08:39 | XMS_ITS | Encounter Summary ---
Author Organization [facility] Address [address] [place] [address] Care Team Providers Care Insurance Salesman Name Role Phone Kathy Reynaga MD Primary Care Provider [phone] Encounter Details Date Type Department Care Team (Late st Contact Info) Description 03/29/2025 Abstract [facility] [address] [place] [address] Yasmani Abdullahi DO [address] [place], [place] [address] Social History Tobacco Use Types Packs/Day Years [...] EDT Routine [facility] [address] [place] [address] Lanie Mendez, MOTOR OVERHAULER [address] [place] [address] 08/28/2025 10:10 AM EST Visit [facility] [address] [facility] [place] [address] Yasmani Abdullahi DO [address] [facility] [place] [address] documented as of this encounter Visit Diagnoses Not on filedocumented in this encounter Care Teams Insurance Salesman 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 Specialty Start Date End Date Kathy Reynaga MD [address] [facility] [place] [phone] PCP - General Family Medicine 01/27/24 documented as of this encounter
--- OUTSIDE RECORDS SUMMARY | 2025-07-19 08:39 | XMS_ITS | Encounter Summary ---
Author Organization [facility] Address [address] [place] [address] Care Team Providers Care Primary Mill Roller Name Role Phone Kathy Reynaga MD Primary Care Provider [phone] Encounter Details Date Type Department Care Team (Late st Contact Info) Description 03/16/2025 Abstract [facility] [address] [place] [address] Yasmani Abdullahi DO [address] [place], [place] [address] Social History Tobacco Use Types Packs/Day Years [...] EDT Routine [facility] [address] [place] [address] Lanie Mendez, APPLICATIONS SUPPORT ANALYST [address] [place] [address] 08/28/2025 10:10 AM EST Visit [facility] [address] [facility] [place] [address] Yasmani Abdullahi DO [address] [facility] [place] [address] documented as of this encounter Visit Diagnoses Not on filedocumented in this encounter Care Teams Primary Mill Roller 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 Specialty Start Date End Date Kathy Reynaga MD [address] [facility] [place] [phone] PCP - General Family Medicine 01/27/24 documented as of this encounter
--- OUTSIDE RECORDS SUMMARY | 2025-07-19 08:39 | XMS_ITS | Clinical Summary ---
Author Organization [facility] Address [address] [place] [address] Care Team Providers Care Food Supervisor Name Role Phone Kathy Reynaga MD Primary Care Provider [phone] Allergies No known active allergies Medications MV-Min-Fe [...] Encounters Date Type Department Care Team Description 07/16/2025 Clinisync Result Encounter NOM[facility] External Department Unsolicited Marbella Abdullahi, 07/11/2025 Clinisync Result Encounter [facility]OM[facility] External Department Unsolicited Marbella Abdullahi, DO 07/09/2025 4:10 PM EDT Routine [facility] [address] [place] [address] Marbella Abdullahi, DO Third trimester ([facility]) 07/09/2025 Bamboo flowsheet [facility] [address] [place] [address] Marbella Abdullahi, DO 07/05/2025 9:50 AM EDT Routine [facility] DURHAMGYN [address] [place] [address] Marbella Abdullahi, DO 36 weeks gestation of ([facility]); Third trimester ([facility]); Multigravida of advanced maternal age in third trimester ([facility]); History of molar ; Antepartum multigravida of advanced maternal age ([facility]) 07/05/2025 Bamboo flowsheet [facility] DURHAMGYVasu [address] [place] [address] Marbella Abdullahi, DO 07/04/2025 Clinisync Result Encounter NOMS External Department Unsolicited Marbella Abdullahi, DO 06/27/2025 Clinisync Result Encounter NOMS External Department Unsolicited Marbella Abdullahi, DO 06/22/2025 Clinisync Result Encounter NOMS External Department Unsolicited Marbella Abdullahi, DO 06/21/2025 9:40 AM EDT Routine [facility]UR[facility]GY[facility] [address] [place] [address] Marbella Abdullahi, DO Third trimester ([facility]); 34 weeks gestation of ([facility]); Multigravida of advanced maternal age in third trimester ([facility]) 06/21/2025 9:00 AM EDT Ancillary Procedure [facility] DURHAMGYVasu [address] [facility] [place] [address] History of molar ; Gestational diabetes mellitus (GDM), antepartum, gestational diabetes method of control unspecified ([facility]); Antepartum multigravida of advanced maternal age ([facility]) 06/19/2025 Clinisync Result Encounter NOMS External Department Unsolicited Marbella Abdullahi, 06/07/2025 9:50 AM [place] [address] Marbella Abdullahi, Third trimester ([facility] 32 weeks gestation of ([facility]); Multigravida of advanced maternal age in third trimester ([facility]); History of molar ; Gestational diabetes mellitus (GDM), antepartum, gestational diabetes method of control unspecified ([facility]); Antepartum multigravida of advanced maternal age ([facility]) 06/07/2025 [place] [address] Marbella Abdullahi DO 05/31/2025 [place] [address] Luz Gonsalez LPN 05/22/2025 11:00 AM ED[place] [address] Marbella Abdullahi DO 30 weeks gestation of ([facility]); Third trimester ([facility]); Antepartum multigravida of advanced maternal age ([facility]); Gestational diabetes mellitus (GDM), antepartum, gestational diabetes method of control unspecified ([facility]) 05/22/2025 10:30 AM EDT Ancillary [place] [address] Antepartum multigravida of advanced maternal age ([facility]) 05/10/2025 8:40 AM ED[place] [address] Marbella Abdullahi DO size consistent with dates, antepartum ([facility]) (Primary Dx); Third trimester ([facility]); 28 weeks gestation of ([facility]); Antepartum multigravida of advanced maternal age ([facility]) 05/10/2025 Bamboo flowsheet [facility] [address] [place] [address] Marbella Abdullahi DO 05/09/2025 Abstract [facility] [address] [place] [address] [place] [address] Marbella Abdullahi DO from Last 3 Months Family History Relation [...] oz) 07/05/2025 9:48 A M EDT Height 172.7 cm (5' 8 ) 12/15/2022 12:00 PM EST Body Mass Index 35.55 12/15/2022 12:00 PM EST Plan of Treatment Upcoming Encounters Date Type Department Care Team (Late st Contact Info) Description 07/19/2025 9:50 AM EDT Routine [facility] [address] [place] [address] Lanie Mendez, MISSION WORKER [address] [facility] [place] [address] 08/28/2025 10:10 AM EST Visit [facility] DURHAMGYN [address] [facility] [place] [address] KaylenMarbella, DO [address] [facility] [address] [place], [place] [address] Procedures Procedure Name Priority Date/Time Associated Diagnosis Comments US OB BPP W NON-STRESS 07/16/2025 8:29 AM EDT US OB BPP W NON-STRESS 07/11/2025 9:20 AM EDT POCT URINALYSIS DIPSTICK Routine 07/09/2025 4:44 PM EDT Third trimester ([facility]) POCT URINALYSIS DIPSTICK Routine 07/05/2025 9:55 AM EDT 36 weeks gestation of ([facility]) Third trimester ([facility]) CULTURE, GROUP B STREP WITH SUSCEPTIBLITY Routine 07/05/2025 9:43 AM EDT Third trimester ([facility]) US OB BPP W NON-STRESS 07/04/2025 9:15 AM EDT US OB BPP W NON-STRESS 06/27/2025 8:36 AM EDT US OB BPP W NON-STRESS 06/22/2025 9:47 PM EDT POCT URINALYSIS DIPSTICK Routine 06/21/2025 9:55 AM EDT Third trimester ([facility]) US OB FOLLOW UP TRANSABDOMINAL APPROACH Routine [...] 05/10/2025 8:37 AM EDT Third trimester ([facility]) from Last 3 Months Results * US OB BPP W NON-STRESS (07/16/2025 8:29 AM EDT) Only the most recent of6 resultswithin the time period is included. Anatomical Region Laterality Modality Other 07/16/2025 8:29 AM EDT Narrative 07/16/2025 8:32 [place] [address] Ultrasound Report Signed Patient: TREVA GOETZ MR#: [id number] : 1990 Acct:[id number] Age/Sex: 35 / F ADM Date: 07/16/25 Loc: [facility] 250-[address]: Marbella Abdullahi D.O. Ordering Physician: Marbella Abdullahi D.O. Date of Service: 07/16/25 Procedure(s): US OB BPP w non-stress Accession Number(s): [id number] cc: Kathy Reynaga M.D.; Marbella Abdullahi D.O. [place] [id number] Patient Name: TREVA GOETZ MRN: [id number] date: 1990 Sex: F Assigned Patient Location: [facility] Current Patient Location: [facility] Accession/Order Number: [id number] Exam Date: 07/16/2025 07:36 Report Date: 07/16/2025 08:29 At the request of: MARBELLA ABDULLAHI DO [...] lasting at least 30 seconds [Y] 2/2 GARYSON: A single deepest vertical pocket of amniotic fluid greater than 2 cm [Y] 2/2 GRAYSON: 17.9 cm Total score: 8/8 US/US OB BPP w non-stress IMPRESSION: NORMAL BIOPHYSICAL PROFILE Impression dictated by: Annel Barnhart M.D. 07/16/2025 8:29 AM Dictation Location: [place] [address] Electronically authenticated by: [id number] Y Date: 07/16/2025 08:29 Dictated By: Annel Barnhart M.D. Signed By: 07/16/2532 DD/ 8 TD/TT: Electroencephalograph Technician: Procedure Note Radiology, Radiologist, - 07/16/2025 [place] [address] Ultrasound Report Signed Patient: TREVA GOETZ EMR#: [id number] : 1990Acct:[id number] Age/Sex: 35 / FADM Date: 07/16/25 Loc: [facility] 250-[address]: Marbella Abdullahi D.O. Ordering Physician: Marbella Abdullahi D.O. Date of Service: 07/16/25 Procedure(s): US OB BPP w non-stress Accession Number(s): [id number] cc: Kathy Reynaga M.D.; Marbella Abdullahi D.O. [place] [address] Patient Name: TREVA GOETZ MRN: [id number] date: 1990 Sex: F Assigned Patient Location: [facility] Current Patient Location: [facility] Accession/Order Number: [id number] Exam Date: 07/16/2025 07:36 Report Date: 07/16/2025 08:29 At the request of: MARBELLA ABDULLAHI DO [...] Barnhart M.D. 07/16/2025 8:29 AM Dictation Location: [place] [address] Electronically authenticated by: [id number] Y Date: 508:29 Dictated By: Annel Barnhart M.D. Signed By:07/16/2532 DD/ 8 TD/TT: Electroencephalograph Technician: us Marbella Kaylen DO [facility] Final Result * (ABNORMAL) POCT urinalysis dipstick manually resulted (07/09/2025 4:44 PM EDT) Only the most recent of6 resultswithin the time period is included. Color, [...] Negative - 2000(20) ++++ mg/dL Urobilinogen, UA 0.2 0.2 - 12 mg/dL Leukocytes, UA 2+ Negative - 500+++ Bertha/mcL Nitrite, UA Negative Negative - Positive Urine 07/09/2025 4:44 PM EDT Marbella Kaylen DO POINT OF CARE TEST ENTER/EDIT OR DERABLES Final Result * CULTURE, GROUP B STREP WITH SUSCEPTIBLITY (07/05/2025 9:43 AM EDT) Swab 07/05/2025 9:43 AM EDT us Marbella Kaylen DO LAB BLOOD ORDERABLES Final Resul t EXTERNAL LAB * US OB follow up transabdominal approach [...] SIGNED BY: Minh Reddy MD us Marbella Abdullahi DO IMG OB US PROCEDURES Final Resul t from Last 3 Months Insurance [employer] Care Teams Food Supervisor 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 Specialty Start Date End Date Kathy Reynaga MD [address] [place] [address] PCP - General Family Medicine 01/27/24
--- OUTSIDE RECORDS SUMMARY | 2025-07-19 08:39 | XMS_ITS | Encounter Summary ---
Author Organization [facility] Address [address] [place] [address] Care Team Providers Care Provider Service Representative Name Role Phone Kathy Reynaga MD Primary Care Provider [phone] Encounter Details Date Type Department Care Team (Late st Contact Info) Description 04/17/2014 FollowUp Telephone Encounter [facility] Labor and Delivery [address] [place] [phone] Maria Eugenia Thomas RN Social History Tobacco [...] your baby had an appointment with the promotional advertising assistant yet? Yes last Wednesday and 04/17 and [...] stay? follow-up phone call with our manager trust? No, wonderful. During your stay, did any [...] on filedocumented in this encounter Care Teams Provider Service Representative 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 Specialty Start Date End Date Kathy Reynaga MD PCP - General 07/15/16 documented as of this encounter
--- OUTSIDE RECORDS SUMMARY | 2025-07-19 08:39 | XMS_ITS | Clinical Summary ---
Author Organization [facility] Address [address] [facility] [address] [address], [address] [place] [address] Care Team Providers Care Search Engine Marketing Specialist Name Role Phone Kathy Reynaga MD Primary Care Provider [phone] Allergies No known active allergies Medications MV-Min-Fe Fum-FA-DHA ( 1 PO) Take by mouth Active amoxicillin (AMOXIL) 875 MG tablet Take 875 mg by mouth 2 times daily Active Active Problems Patient Care Coordination No te Formatting of this note migh t be different from the original. [facility] risk assesment form = NA [...] of Treatment Not on file Insurance [address] [id number] [employer] Advance Directives * Full Code [...] 4:53 PM 04/12/2014 3:44 AM Care Teams Search Engine Marketing Specialist 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 Specialty Start Date End Date Kathy Reynaga MD PCP - General 07/15/16
--- OUTSIDE RECORDS SUMMARY | 2025-07-19 08:39 | XMS_ITS | Encounter Summary ---
Author Organization [facility] Address [address] [place] [address] Care Team Providers Care Medicine Tech Name Role Phone Kathy Reynaga MD Primary Care Provider [phone] Encounter Details Date Type Department Care Team (Late st Contact Info) Description 02/23/2025 Orders Only [facility] [address] [place] [address] Tamiko Montana MA Social History Tobacco [...] AM EDT Routine [facility] [address] [place] [address] Lanie Mendez, SAMUEL [address] [place] [address] 08/28/2025 10:10 AM EST Visit [facility] [address] [facility] [place] [address] Yasmani Abdullahi DO [address] [facility] [place] [address] documented as of this encounter Procedures Procedure Name Priority Date/Time Associated Diagnosis Comments PAP SMEAR Routine 02/15/2025 12:00 AM EDT documented in this encounter Results * Pap Smear (02/15/2025 12:00 AM EDT) Swab Cervical swab / Unknown us Yasmani Abdullahi DO LAB CYTOLOGY ORDERABLES Final Re sult EXTERNAL LAB documented in this encounter Visit Diagnoses Not on filedocumented in this encounter Care Teams Medicine Tech 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 Specialty Start Date End Date Kathy Reynaga MD [address] [facility] [place] [address] PCP - General Family Medicine 01/27/24 documented as of this encounter
--- OUTSIDE RECORDS SUMMARY | 2025-07-19 08:39 | XMS_ITS | Encounter Summary ---
Author Organization [facility] Address [address] [place] [address] Care Team Providers Care Paid Intern Name Role Phone Kathy Reynaga MD Primary Care Provider [phone] Encounter Details Date Type Department Care Team (Late st Contact Info) Description 03/02/2025 Abstract [facility] [address] [place] [address] Tamiko Montana MA Social History Tobacco [...] 9:50 AM EDT Routine [facility] [address] [place] [address] Lanie Mendez, SAMUEL [address] [place] [id number] 08/28/2025 10:10 AM EST Visit [facility] [address] [facility] [place] [id number] Yasmani Abdullahi DO [address] [facility] [address] [place], [place] [id number] documented as of this encounter Visit Diagnoses Not on filedocumented in this encounter Care Teams Paid Intern 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 Specialty Start Date End Date Kathy Reynaga MD [address] [facility] [place] [address] PCP - General Family Medicine 01/27/24 documented as of this encounter
--- OUTSIDE RECORDS SUMMARY | 2025-07-19 08:39 | XMS_ITS | Encounter Summary ---
Author Organization [facility] Address [address] [place] [address] Care Team Providers Care Groundman/Lineman Name Role Phone Kathy Reynaga MD Primary Care Provider [phone] Encounter Details Date Type Department Care Team (Late st Contact Info) Description 03/01/2025 Abstract [facility] [address] [place] [address] Tamiko Montana MA Social History Tobacco [...] EDT Routine [facility]ANNE ALV[facility] [address] [place] [address] Lanie Mendez, SAMUEL [address] [place] [phone] 08/28/2025 10:10 AM EST Visit [facility] [address] [facility] [place] [phone] Yasmani Abdullahi DO [address] [facility] [address] [place], [place] [id number] documented as of this encounter Visit Diagnoses Not on filedocumented in this encounter Care Teams Groundman/Lineman 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 Specialty Start Date End Date Kathy Reynaga MD [address] [facility] [place] [address] PCP - General Family Medicine 01/27/24 documented as of this encounter
[2025-07-19 08:40] VITALS: BP 97/54; PULSE 81
--- OUTSIDE RECORDS SUMMARY | 2025-07-19 09:19 | XMS_ITS ---
[...] Next of Kin [address] [place] [address] + [place], [place] [address] +[phone] BUMB, YOSSI Next of Kin Unknown + BUMB, YOSSI Next of Kin Unknown + Bumb, Yossi Next of Kin [address] [facility] [place] [address] + [place], [place] [address] [phone] BUMB, YOSSI Next of Kin Unknown + BUMB, YOSSI Next of Kin Unknown + Bumb, Yossi Next of Kin [address] [facility] [place] [address] + [place], [place] [address] [phone] BUMB, YOSSI Next of Kin Unknown + BUMONICA, YOSSI Next of Kin Unknown + Bumonica, Yossi Next of Kin [address] [place] [address] + [place] [address] [phone] Bishnu, Yossi Next of Kin [address] [place] [address] + [place] [address] +[phone] monica, Yossi Next of Kin [address] [place] [address] + [place] [address] +[phone] Care Team Providers Care Commercial Front Load Driver Name Role Phone Kaylen Marbella Admitting Unavailable Kaylen, Marbella Attending Unavailable Kathy Reynaga Primary Care Unavailable Kathy Reynaga Primary Care Unavailable Jose Forman Admitting Unavailable Jose Forman Attending Unavailable [facility], Mario P Admitting Unavailable [facility], Mario P Attending Unavailable Kathy Reynaga Primary Care Unavailable NO FAMILY, PHYSICIAN Primary Care Unavailable Derrick Wilson Admitting Unavailable Derrick Wilson Attending Unavailable Kathy Reynaga Primary Care Unavailable Melissa Palacios Admitting Unavailable Melissa Palacios Attending Unavailable Kaylen, Marbella Admitting Unavailable Kaylen, Marbella Attending Unavailable Kathy Reynaga Primary Care Unavailable KAYLEN, MARBELLA Attending Unavailable KAYLEN, MARBELLA Attending Unavailable KAYLEN, MARBELLA Referring Unavailable KAYLEN, MARBELLA Attending Unavailable KAYLEN, MARBELLA Attending Unavailable KAYLEN, MARBELLA Attending Unavailable KAYLEN, MARBELLA Referring Unavailable KAYLEN, MARBELLA Attending Unavailable KAYLEN, MARBELLA Attending Unavailable KAYLEN, MARBELLA Attending Unavailable KAYLEN, MARBELLA Attending Unavailable KAYLEN, MARBELLA Attending Unavailable ROCK NEWMAN Attending Unavailable PROBLEMS DATE TYPE CONDITION / CODE ATTENDING STATUS [facility] 03/14/2025 Unknown Personal history of diseases of the blood and blood-forming organs and certain disorders involving the immune mechanism / Z86.2(ICD-10) Marbella Abdullahi [facility] 12/27/2024 Unknown Encounter for supervision of normal , unspecified, unspecified trimester / Z34.90(ICD-10) Marbella Abdullahi [facility] 12/06/2024 Unknown Unspecified abdo marjan pain / R10.9(ICD-10) Jose Forman [facility] 08/11/2024 Unknown Cough, unspecifi ed / R05.9(ICD-10) Melissa Palacios [facility] PROCEDURES No Procedure Records Found RESULTS US OB FOLLOW UP TRANSABDOMINAL APPROACH Observed: 06/21/2025 8:47 AM Status: F Source: [facility] EPIC Order Comment: US OB SCAN FO [...] Observed: 05/22/2025 10:17 AM Status: F Source: [facility] EPIC Order Comment: US OB SCAN FO [...] Collected: 04/02/2025 6:57 AM Status: F Source: [facility] TYPE CODE TESTS RESULT OUT OF RANGE [...] 0.0-0.2 10*3/uL Result Comment: PERFORMED BY : [facility] [address] [place] [address] PATHOLOGIST GYMNASTICS INSTRUCTOR JESS VARGAS M.D. Performed By: #### FRIEDAAR LI PID, PILLAR CBC, PILLAR CMP #### [facility] [address] EMPLOYEE COMP METABOLIC PANEL Collected: 04/02/2025 6:57 AM Status: F Source: [facility] TYPE CODE TESTS RESULT OUT OF RANGE [...] LI PID, PILLAR CBC, PILLAR CMP #### [facility] [address] [place], [place] [address] EMPLOYEE LIPID PROFILE Collected: 04/02/2025 6:57 AM Status: F Source: [facility] TYPE CODE TESTS RESULT OUT OF RANGE [...] 2.9 <5.0 Result Comment: PERFORMED BY : [facility] [address] [place] [address] PATHOLOGIST GYMNASTICS INSTRUCTOR JESS VARGAS M.D. Performed By: #### ANGELI CONNOR PID, PILLAR CBC, PILLAR CMP #### [facility] [address] [place] [id number] [facility] US OB 14+ WEEKS ANATOMY SCAN Observed: 0 03/15/2025 8:31 AM Status: F Source: [facility] EPIC Order Comment: US [...] II, MD, PHD at 16-Mar-2025 11:50:11 AM [facility] COMPLETE BLOOD COUNT AUTO DIFF Collected: 03/14/2025 11:50 AM Status: F Source: [facility] TYPE CODE TESTS RESULT OUT OF RANGE [...] 0.0-0.2 10*3/uL Result Comment: PERFORMED BY : [facility] [address] [place] [id number] PATHOLOGIST GYMNASTICS INSTRUCTOR JESS VARGAS M.D. Performed By: #### CBC #### [place] [id number] [facility] COMPLETE BLOOD COUNT AUTO DIFF Collected: 12/27/2024 7:57 AM Status: F Source: [facility] Order Comment: NONFASTING.JK W TYPE CODE [...] 0.0-0.2 10*3/uL Result Comment: PERFORMED BY : [place] [address] PATHOLOGIST GYMNASTICS INSTRUCTOR LEÓN GARCIA M.D. Performed By: #### CUU, A1C WTH eA, CBC, URDS #### [address] #### RPR W RFX, RUBELLA IGG, HBSAG, HCV RX PCR, HIV SCREEN #### [facility] , DRUG SCREEN,URINE Collected: 12/27/2024 7:57 AM Stat us: F Source: [facility] Order Comment: NONFASTING.JK W TYPE CODE TESTS [...] 25 ng/mL THC 20 ng/mL PERFORMED BY: [place] [address] PATHOLOGIST GYMNASTICS INSTRUCTOR LEÓN GARCIA M.D. Performed By: #### CUU, A1C WTH eA, CBC, URDS #### [address] #### RPR W RFX, RUBELLA IGG, HBSAG, HCV RX PCR, HIV SCREEN #### [facility] , A1C WITH ESTIMATED AVERAGE GLU Collected: 12/27/2024 7:57 AM Status: F Source: [facility] Order Comment: NONFASTING.JK W TYPE CODE TESTS RESULT OUT OF RANGE REFERENCE UNITS LAB .A1C Hemoglobin A1C 5.2 Normal 4.3-5.6 % Result Comment: Increased ri sk for diabetes: 5.7 - 6.4 diabetes: >6.4 glycemic control for adults with diabetes: <7.0 LAB eAG Estimated Average Glucose 103 mg/dL Result Comment: PERFORMED BY : [place] [address] PATHOLOGIST GYMNASTICS INSTRUCTOR LEÓN GARCIA M.D. Performed By: #### CUU, A1C WTH eA, CBC, URDS #### [address] #### RPR W RFX, RUBELLA IGG, HBSAG, HCV RX PCR, HIV SCREEN #### [facility] , HEP C AB WRFX TO QNT PCR Collected: 12/27/2024 7:57 A M Status: F Source: [facility] Order Comment: NONFASTING.JK W TYPE CODE TESTS [...] CUU, A1C WTH eA, CBC, URDS #### [address] #### RPR W RFX, RUBELLA IGG, HBSAG, HCV RX PCR, HIV SCREEN #### [facility] , HEPATITIS B SURFACE ANTIGEN Collected: 12/27/2024 7:5 7 AM Status: F Source: [facility] Order Comment: NONFASTING.JK W TYPE CODE TESTS RESULT OUT OF RANGE REFERENCE UNITS LAB HBSAG SCR HBsAg Screen Negative Negative Result Comment: Performed at : - [facility] [id number] Lens Shaper Grinder: Garfield Fay PhD, Phone: [phone] PERFORMED BY: [place] [address] PATHOLOGIST GYMNASTICS INSTRUCTOR LEÓN GARCIA M.D. Performed By: #### CUU, A1C WTH eA, CBC, URDS #### [place] [address] [place] #### RPR W RFX, RUBELLA IGG, HBSAG, HCV RX PCR, HIV SCREEN #### [facility] , URINE CULTURE Observed: 12/27/2024 7:57 AM Status: F Source: [facility] NONFASTING.JKW 15,000 colonies/ml mixed bacterial skin contaminants 2 Days PERFORMED BY: [place] [address] PATHOLOGIST GYMNASTICS INSTRUCTOR LEÓN GARCIA M.D. Performed By: #### CUU, A1C WTH eA, CBC, URDS #### [address] #### RPR W RFX, RUBELLA IGG, HBSAG, HCV RX PCR, HIV SCREEN #### [facility] , RUBELLA IGG ANTIBODY Collected: 025 7:57 AM Status: F Source: [facility] Order Comment: NONFASTING.JK W TYPE CODE TESTS RESULT OUT OF RANGE REFERENCE UNITS LAB RUBELLA IGG Rubella IgG Antibody 1.22 Immune >0.99 Result Comment: Non-immune < 0.90 Equivocal 0.90 - 0.99 Immune >0.99 Performed By: #### CUU, A1C WTH eA, CBC, URDS #### [place] [address] [place] #### RPR W RFX, RUBELLA IGG, HBSAG, HCV RX PCR, HIV SCREEN #### [facility] , HIV 1/O/2 ANTIGEN/ANTIBODY Collected: 0 12/27/2024 7:57 AM Status: F Source: [facility] Order Comment: NONFASTING.JK W TYPE CODE TESTS RESULT OUT OF RANGE REFERENCE UNITS LAB HIV SCRN 4TH HIV Screen 4th Generation Non Reactive Non Reactive Result Comment: HIV-1/HIV-2 antibodies and HIV-1 p24 antigen were NOT detected. There is no laboratory evidence of HIV infection. HIV Negative Performed at: [address] [id number] Lens Shaper Grinder: Garfield Fay PhD, Phone: [phone] Performed By: #### CUU, A1C WTH eA, CBC, URDS #### [address] #### RPR W RFX, RUBELLA IGG, HBSAG, HCV RX PCR, HIV SCREEN #### [facility] , RPR W/RFX TO QUANT TP ABS Collected: 7:57 AM Status: F Source: [facility] Order Comment: NONFASTING.JK W TYPE CODE TESTS RESULT OUT OF RANGE REFERENCE UNITS LAB RPRRESULT RPR, Rfx Quant RPR Non Reactive Non Reactive Result Comment: Performed at : - [facility] [id number] Lens Shaper Grinder: Garfield Fay PhD, Phone: [phone] PERFORMED BY: [place] [address] PATHOLOGIST GYMNASTICS INSTRUCTOR LEÓN GARCIA M.D. Performed By: #### CUU, A1C WTH eA, CBC, URDS #### [address] #### RPR W RFX, RUBELLA IGG, HBSAG, HCV RX PCR, HIV SCREEN #### [facility] , TYPE AND SCREEN Collected: 12/27/2024 7:57 AM Status : F Source: [facility] Order Comment: NONFASTING.JK W TYPE CODE TESTS RESULT OUT OF RANGE REFERENCE UNITS LAB BTV Blood Type B Negative Result Comment: PERFORMED BY : [place] [address] PATHOLOGIST GYMNASTICS INSTRUCTOR LEÓN GARCIA M.D. LAB ABS Antibody Screen NEGATIVE Result Comment: PERFORMED BY : [address] [address] PATHOLOGIST GYMNASTICS INSTRUCTOR LEÓN GARCIA M.D. OB TRANSVAGINAL Observed: 12/21/2024 12:54 PM Status: F Source: [facility] EPIC Order Comment: US OB TRANSVA GINAL [...] II, MD, PHD at 22-Dec-2024 08:23:50 AM [facility] US OB <= 14 WEEKS FETUS Observed: 2024 9:54 AM Status: COMPLETED Source: [facility] [place] [address] Ultrasound Report Signed Patient: Noris Goetz MR#: [id number] 61 : 1990 Acct:[id number] Age/Sex: 34 / F ADM Date: 12/06/24 Loc: ER Room: Type: [facility] ER Attending Dr: Ordering Provider: Jose Forman DO Date of Service: 12/06/24 US/US OB <= 14 weeks fetus: Abdominal Pain Copies to: Jose Forman DO Obstetrical ultrasound for fetus less than 14 weeks HISTORY: Abdominal pain. Vaginal bleeding COMPARISON: None The heart rate is 126bpm. Ovaries not visualized No free fluid identified in cul-de-sac. No subchorionic hemorrhage identified. [place]-rump length measures 6.4cm consistent with 6 weeks 4 days. The yolk sac is not seen. The estimated due date by this ultrasound is 07/28/2025. US/US OB <= 14 weeks fetus IMPRESSION: Single live anterior gestation 6 weeks 4 days. Impression dictated by: Alfonzo Flores M.D.12/06/2024 9:55 AM Dictation Location: [facility] Tech: Antonieta Mitchellbrooke Transcribed By: PWS 12/06/2455 Dictated By: Alfonzo Flores DO 12/06/2454 Signed By: <Electronically signed by Alfonzo Flores DO in OV> 12/06/24 09 COMPLETE BLOOD COUNT AUTO DIFF Collected: 12/06/2024 8:20 AM Status: F Source: [facility] TYPE CODE TESTS RESULT OUT OF RANGE [...] 0.0-0.2 10*3/uL Result Comment: PERFORMED BY : [place] [address] PATHOLOGIST GYMNASTICS INSTRUCTOR LEÓN GARCIA M.D. Performed By: #### HCGQNT, L IPASE, PT, HS TROP, PTT, CBC, HEPATIC, BMP #### [place] [id number] [facility] TROPONIN I HIGH SENSITIVITY Collected: 12/06/2024 8:2 0 AM Status: F Source: [facility] TYPE CODE TESTS RESULT OUT OF RANGE REFERENCE UNITS LAB HS TROP Troponin I High Sensitivity 3 Normal 0-15 Result Comment: The Troponin units of report have been changed to meet the Chest Pain Accreditation requirement, element EC5.M1l2. Troponin units are changed from pg/ml to ng/L. Also, the decimal is removed and results are in whole numbers. PERFORMED BY: [place] [address] PATHOLOGIST GYMNASTICS INSTRUCTOR LEÓN GARCIA M.D. Performed By: #### HCGQNT, L IPASE, PT, HS TROP, PTT, CBC, HEPATIC, BMP #### [address] [address] [facility] PROTHROMBIN TIME INR Collected: 12/06/2024 8:20 AM S tatus: F Source: [facility] TYPE CODE TESTS RESULT OUT OF RANGE REFERENCE UNITS LAB R PT Prothrombin Time 12.3 Normal 9.0-12.9 s Result Comment: A hematocrit value greater than 55% may lead to inaccurate results in coagulation testing. Patients having hematocrit values >55% require a special collection tube for coagulation studies. Please contact the laboratory at [phone] for redraw instructions. LAB INR INR 1.1 [...] HS TROP, PTT, CBC, HEPATIC, BMP #### [facility] [address] [place] [address] [facility] PARTIAL THROMBOPLASTIN TIME Collected: 12/06/2024 8:2 0 AM Status: F Source: [facility] TYPE CODE TESTS RESULT OUT OF RANGE REFERENCE UNITS LAB PTT Partial Thromboplastin Time 28.1 Normal 25.1-36.5 s Result Comment: A hematocrit value greater than 55% may lead to inaccurate results in coagulation testing. Patients having hematocrit values >55% require a special collection tube for coagulation studies. Please contact the laboratory at [phone] for redraw instructions. PERFORMED BY: [place] [id number] PATHOLOGIST GYMNASTICS INSTRUCTOR LEÓN GARCIA M.D. Performed By: #### HCGQNT, L IPASE, PT, HS TROP, PTT, CBC, HEPATIC, BMP #### [facility] [address] [place] [address] [facility] HEPATIC PANEL Collected: 12/06/2024 8:20 AM Status: F Source: [facility] TYPE CODE TESTS RESULT OUT OF RANGE [...] HS TROP, PTT, CBC, HEPATIC, BMP #### [facility] [address] BASIC METABOLIC PANEL Collected: 12/06/2024 8:20 AM Status: F Source: [facility] TYPE CODE TESTS RESULT OUT OF RANGE [...] HS TROP, PTT, CBC, HEPATIC, BMP #### [facility] [address] LIPASE Collected: 8:20 AM Status: F Source: [facility] TYPE CODE TESTS RESULT OUT OF RANGE REFERENCE UNITS LAB LIPASE Lipase 11.0 Normal 11.0-82.0 U/L Performed By: #### HCGQNT, L IPASE, PT, HS TROP, PTT, CBC, HEPATIC, BMP #### [facility] [address] [place], [place] [id number] [facility] HCG,QUANTITATIVE Collected: 8:20 AM Status: F Source: [facility] TYPE CODE TESTS RESULT OUT OF RANGE REFERENCE UNITS LAB HCGQNT HCG,Quantit ative 965967.00 m[iU]/mL Result Comment: Approximate Approximate hCG Gestational Age Range (mIU/ml) (weeks) 0.2-1 5-50 1-2 50-500 2-3 100-5,000 3-4 500-10,000 4-5 1,000-50,000 5-6 10,000-100,000 6-8 15,000-200,000 8-12 10,000-100,000 PERFORMED BY: [place] [address] PATHOLOGIST GYMNASTICS INSTRUCTOR LEÓN GARCIA M.D. Performed By: #### HCGQNT, L IPASE, PT, HS TROP, PTT, CBC, HEPATIC, BMP #### [facility] [address] [place], [place] [id number] [facility] ECG 12 LEAD ECG Observed: 12/06/2024 8:13 AM Status: COMPLETED Source: [facility] [place] [address] Electrocardiograph Report Signed Patient: Noris Goetz MR#: [id number] 61 : 1990 Acct:[id number] Age/Sex: 34 / F ADM Date: 12/06/24 Loc: ER Room: Type: [facility] ER Attending Dr: Ordering [...] branch block Confirmed by Jose FORMAN DO ([id number]) on 12/06/2024 10:38:39 AM Referred By: Electronically Signed By: Jose KEISTER DO Transcribed By: MUS Signed By Jose Forman, DO 0 12/06/24 1038 DIPSTICK AND MICROSCOPIC Collected: 8:10 AM Status: F Source: [facility] Order Comment: Name Collecti on Type:: Clean-Voided Midstream TYPE CODE TESTS RESULT OUT OF RANGE REFERENCE UNITS LAB UCOL Color,Urine Yellow Yellow LAB UAPP Appearance,Uri ne Clear Clear LAB USG Specificy [place],Urine 1.025 Normal 1.001-1.030 LAB UPH pH,Urine 6.5 [...] Performed By: #### UHCG, ADD ONUAPLUS #### [facility] [address] [place], [place] [id number] [place] HCG,URINE Collected: 8:10 AM Status: F Source: [facility] Order Comment: Name Collecti on Type:: Clean-Voided Midstream TYPE CODE TESTS RESULT OUT OF RANGE REFERENCE UNITS LAB UHCGQ HCG Qualitative, Urine Positive High Result Comment: PERFORMED BY : [place] [address] PATHOLOGIST GYMNASTICS INSTRUCTOR LEÓN GARCIA M.D. Performed By: #### UHCG, ADD ONUAPLUS #### [facility] [address] [place], [place] [id number] [place] XR CHEST 2V* Observed: 08/11/2024 9:58 AM Status: COMPLETED Source: [facility] [place] [id number] XRay Report Signed Patient: Noris Goezt MR#: [id number] 61 : 1990 Acct:[id number] Age/Sex: 34 / F ADM Date: 08/11/24 [facility]: Type: [facility] Attending Dr: Melissa Reddy EMPLOYEE RELATIONS DIRECTOR Copies to: Melissa Reddy APRN Ordering Provider: [...] Alfonzo Flores M.D.08/11/2024 9:59 AM Dictation Location: [facility] Transcribed By: [facility] 08/11/24958 Dictated By: Alfonzo Flores DO 08/11/24 0958 Signed By: <Electronically signed by Alfonzo Flores DO in OV> 08/11/24 0959 PATHOLOGY REQUEST FOR LAB MADHAVI Collected: 08/02/2024 9:19 AM Status: F Source: [facility] Order Comment: PATHOLOGY SKI N SPECIMEN TYPE CODE TESTS RESULT OUT OF RANGE REFERENCE UNITS LAB PATH TO [facility] Pathology Request for Lab Madhavi Result Comment: See report. Scanned copy available in EMR. PERFORMED BY: [place] [id number] PATHOLOGIST GYMNASTICS INSTRUCTOR JOAN CROWLEY M.D. Performed By: #### PATH TO [facility] #### [place] [id number] [place] ALLERGIES DATE TYPE / CODE NAME / CODE REACTION SEVERITY SOURCE 08/15/2024 Drug Allergy/[id number] (SNOMED CT) No Known Allergies/[id number] 88(RXNORM) Unknown [facility] ENCOUNTERS ADMIT/DISCHARGE ACCOUNT NUMBER ADMITTING ENCOUNTER CLASS LOCATION SOURCE 07/19/2025/07/19/20 [id number] Ambulatory Building:[facility] OB [facility] EPIC 07/09/2025/07/09/20 25 [id number] Ambulatory Building:[facility] 07/05/2025/07/05/20 25 [id number] Ambulatory Building:[facility] 06/21/2025/06/21/20 25 [id number] Ambulatory Building:[facility] 06/21/2025/06/21/20 25 [id number] Ambulatory Building:[facility] 06/07/2025/06/07/20 25 [id number] Ambulatory Building:[facility] 05/22/2025/05/22/20 25 [id number] Ambulatory Building:[facility] 05/22/2025/05/22/20 25 [id number] Ambulatory Building:[facility] 05/10/2025/05/10/20 25 [id number] Ambulatory Building:[facility] 04/10/2025/04/10/20 25 [id number] Ambulatory Building:[facility] OB [facility] 04/02/2025/04/02/20 25 [id number] [facility] 03/15/2025/03/15/20 25 [id number] Ambulatory Building:[facility] 03/15/2025/03/15/20 25 [id number] Ambulatory Building:[facility] 03/14/2025/03/14/20 25 [id number] Marbella Abdullahi [facility] 02/15/2025/02/16/20 25 [id number] Ambulatory Building:[facility] 01/18/2025/01/19/20 25 [id number] Ambulatory Building:[facility] 12/27/2024/12/28/19 [id number] Marbella Abdullahi [facility] 12/21/2024/12/22/19 [id number] Ambulatory Building:[facility] 12/21/2024/12/22/19 [id number] Ambulatory Building:[facility] 12/06/2024/12/06/19 [id number] Jose Forman [facility] 08/11/2024/08/11/20 [id number] Melissa Palacios [facility]XDUCLY [facility] 08/01/2024/08/01/20 [id number] Derrick [facility] PAYERS ENCOUNTER GUARANTOR PAYER SUBSCRIBER SOURCE 07/19/2025 NORIS ARAGONB: [address] [place] [address]Wat: (HP) Primary Insurance:MEDICAL MUTUALPolicy Number: [id number] Date:2022-10-18 NORIS GOETZDOB: [id number] [address] [place] [address] [facility] EP[facility] 07/09/2025 NORIS BOLTONMBDOB: [address] [place] [address]Qnu: (HP) Primary Insurance:MEDICAL MUTUALPolicy Number: [id number] Date:2022-10-18 NORIS BOLTONMBDOB: [id number] [address] [place] [address] [facility] 07/05/2025 NORIS BOLTONMBDOB: [address] [place] [address]Jhu: (HP) Primary Insurance:MEDICAL MUTUALPolicy Number: [id number] Date:2022-10-18 NORIS Blevins BUMBDOB: [id number] [address] [place] [address] [facility] 06/21/2025 NORIS Blevins BUMBDOB: [address] [place] [address]Udy: (HP) Primary Insurance:MEDICAL MUTUALPolicy Number: [id number] Date:2022-10-18 NORIS Blevins BUMBDOB: [id number] [address] [place] [address] [facility] 06/21/2025 NORIS E BUMBDOB: [address] [place] [address]Edl: (HP) Primary Insurance:MEDICAL MUTUALPolicy Number: [id number] Date:2022-10-18 NORIS Blevins BUMBDOB: [id number] [address] [place] [address] [facility] 06/07/2025 NORIS Gen BUMBDOB: [address] [place] [address]Vmp: (HP) Primary Insurance:MEDICAL MUTUALPolicy Number: [id number] Date:2022-10-18 NORIS Gen BUMBDOB: [id number] [address] [place] [address] [facility] 05/22/2025 NORIS Blevins BUMBDOB: [address] [place] [address]Svd: (HP) Primary Insurance:MEDICAL MUTUALPolicy Number: [id number] Date:2022-10-18 NORIS Gen BUMBDOB: [id number] [address] [place] [address] [facility] 05/22/2025 NORIS Gen BUMBDOB: [address] [place] [address]Pys: (HP) Primary Insurance:MEDICAL MUTUALPolicy Number: [id number] Date:2022-10-18 NORIS Blevins BUMBDOB: [id number] [address] [place] [address] [facility] 05/10/2025 NORIS Blevins BUMBDOB: [address] [place] [address]Sxb: (HP) Primary Insurance:MEDICAL MUTUALPolicy Number: [id number] Date:2022-10-18 NORIS Gen BUMBDOB: [id number] [address] [place] [address] [facility] EPIC 04/10/2025 NORIS Gen BUMBDOB: [address] [place] [address]Trq: (HP) Primary Insurance:MEDICAL MUTUALPolicy Number: [id number] Date:2022-10-18 NORIS Gen CHEMBDOB: [id number] [address] [place] [address] [facility] EPIC 04/02/2025 Noris [address]mb[address] [place] [address]Qnz: (HP) Primary Insurance:Self PayPolicy Number: Effective Date:2025-03-21 [facility]/2025 NORIS BOLTONMBDOB: [address] [place] [address]Rmw: (HP) Primary Insurance:MEDICAL MUTUALPolicy Number: [id number] Date:2022-10-18 NORIS Gen BUMBDOB: [id number] [address] [place] [address] [facility] EPIC 03/15/2025 NORIS BOLTONMBDOB: [address] [place] [address]Hgw: (HP) Primary Insurance:MEDICAL MUTUALPolicy Number: [id number] Date:2022-10-18 NORIS Blevins BISHNUDOB: [id number] [address] [place] [address] [facility] EPIC 03/14/2025 Noris Gen Clxe69[address] [place] [address]Pzd: (HP) Primary Insurance:[facility] EmployeesPolicy Number: [id number] Date:8142-44-62LB [id number] [place] [address]FU: Noris Gen BishnuDOB: [id number] [address] [place] [address]Vsg: () [facility] 03/14/2025 Secondary Insurance:FAPPolicy Number: [id number] Date:2025-03-14 - [id number]% 03/29/20[place], [place] [address]UM: [phone] Noris Blevins BishnuDOB: [id number] [address] [place] [phone]: () [facility] 03/14/2025 Tertiary Insurance:Self PayPolicy Number: Effective Date:2025-03-14 [facility] 02/15/2025 NORIS Blevins BISHNUDOB: [address] [place] [address]Dyw: () Primary Insurance:MEDICAL MUTUALPolicy Number: [id number] Date:2022-10-18 NORIS Gen BISHNUDOB: [id number] [address] [place] [address] [facility] EPIC 01/18/2025 NORIS ARAGONB: [address] [place] [address]Nkl: () Primary Insurance:MEDICAL MUTUALPolicy Number: [id number] Date:2022-10-18 NORIS Blevins CHEMBDOB: [id number] [address] [place] [address] [facility] EPIC 12/27/2024 Noris Boltonmb[address] [place] [address]Xou: (HP) Primary Insurance:[facility] EmployeesPolicy Number: [id number] Date:9232-72-98JS [id number] [place] [address]IY: Noris BoltonmonicaDOB: [id number] [address] [place] [address]Qkw: () [facility] 12/27/2024 Secondary Insurance:FAPPolicy Number: [id number] Date:[id number]% 03/29/20[place], [place] [address]IB: [phone] Noris GoetzDOB: [id number] [address] [place] [address]Fka: () [facility] 12/27/2024 Tertiary Insurance:Self PayPolicy Number: Effective Date:2024-12-27 [facility] 12/21/2024 NORIS GOETZDOB: [address] [place] [address]Cju: () Primary Insurance:MEDICAL MUTUALPolicy Number: [id number] Date:2022-10-18 NORIS Blevins CHEMBDOB: [id number] [address] [place] [address] [facility] EPIC 12/21/2024 NORIS GOETZDOB: [id number] [address] [place] [address]Jtt: () Primary Insurance:MEDICAL MUTUALPolicy Number: [id number] Date:2022-10-18 NORIS Blevins CHEMBDOB: [id number] [address] [place] [address] [facility] 12/06/2024 Noris Goetz[address] [place] [address]Ecx: () Primary Insurance:[facility] EmployeesPolicy Number: [id number] Date:5306-82-74BM [id number] [place] [address]AY: Noris Blevins BishnuDOB: [id number] [address] [place] [address]Pqg: () [facility] 12/06/2024 Secondary Insurance:FAPPolicy Number: [id number] Date:2024-12-062% 03/29/2025[place], [place] [address]AB: [phone] Noris BoltonmonicaDOB: [id number] [address] [place] [address]Gnp: () [facility] 12/06/2024 Tertiary Insurance:Self PayPolicy Number: Effective Date:2024-12-06 [facility] 08/11/2024 Noris Goetz16[address] [place] [address]Fyt: () Primary Insurance:[facility] EmployeesPolicy Number: [id number] Date:7104-15-20CK [id number] [place] [address]MK: Noris AragonRadha: [id number] [address] [place] [address]Lch: () [facility] 08/11/2024 Secondary Insurance:FAPPolicy Number: [id number] Date:2024-08-11 - [id number]% 08/23/24[place] [address]AA: [phone] Noris GoetzADELAIDA: [id number] [address] [place] [address]Hcr: () [facility] 08/11/2024 Tertiary Insurance:Self PayPolicy Number: Effective Date:2024-08-11 [facility] 08/01/2024 Noris Goetz16[address] [place] [address]Kzd: () Primary Insurance:Self PayPolicy Number: Effective Date:2024-08-01 [facility]
== END 2025-07-19 09:07 | disposition home or self-care (01) ==
LOC: FBCO 08:35 → FBC 08:36
PROVIDERS: Family Provider Family Medicine; PCP Family Medicine; Visit Provider Obstetrics & Gynecology
DX: O26.893 Other specified pregnancy related conditions, third trimester (principal); O09.523 Supervision of elderly multigravida, third trimester; Z3A.38 38 weeks gestation of pregnancy
CPT/HCPCS: 59025

== ENCOUNTER 2025-07-24 07:34 | Outpatient (OUT) | payer OTHER, SELFPAY ==
--- OUTSIDE RECORDS SUMMARY | 2014-02-14 01:42 | XMS_ITS | Encounter Summary ---
Author Organization [facility] Address [address], [address] [place] [address] Care Team Providers Care Flight Reservations Manager Name Role Phone Unavailable Primary Care Provider Unavailabl e Encounter Details Date Type Department Care Team (Late st Contact Info) Description 02/14/2014 1:42 AM EDT Hospital Encounter [facility] [address] [phone] Kalen Sorenson MD [address] [facility] 202 [place] [address] Social History Tobacco Use Types [...] mg/dL 02/14/2014 7:15 AM EDT [facility] 02/14/2014 7:08 AM EDT 02/14/2014 7:15 AM EDT Kalen Sorenson MD CHEMISTRY ORDERABLES Final Re sult Performing Organization Address City/[facility]/ZIP Co de Phone Number [facility] [address] [place] [address] * (ABNORMAL) Glucose tolerance, 3 hours (02/14/2014 6:59 AM EDT) Amount Glucose Given 100 g 02/14/2014 7:01 AM EDT [facility] Glucose, Fasting 80 65 - 99 mg/dL 02/14/2014 8:09 AM EDT [facility] Glucose, GTT - 1 Hour 227(H) 65 - 184 mg/dL 02/14/2014 8:59 AM EDT [facility] Glucose, GTT - 2 Hour 227(H) 65 - 139 mg/dL 02/14/2014 11:02 AM EDT [facility] Glucose, GTT - 3 Hour 135(H) 65 - 130 mg/dL 02/14/2014 11:01 AM EDT [facility] Comment: Performed at [address] [place], [place] [address] ([phone] 02/14/2014 6:59 AM EDT 02/14/2014 7:00 AM EDT us Kalen Sorenson MD CHEMISTRY ORDERABLES Final Re sult Performing Organization Address [facility]/ZIP Co de Phone Number [facility] [address] [place], [place] [id number], [facility] [phone] [facility] documented in this encounter Visit Diagnoses Not on filedocumented in this encounter
--- OUTSIDE RECORDS SUMMARY | 2025-07-24 07:35 | XMS_ITS | Encounter Summary ---
Author Organization [facility] Address [address] [place] [address] Care Team Providers Care Access Analyst Name Role Phone Kathy Reynaga MD Primary Care Provider [phone] Encounter Details Date Type Department Care Team (Late st Contact Info) Description 07/16/2025 Clinisync Result Encounter NOMS External Department Unsolicited Yasmani Abdullahi, DO [address] [place] [address] Social History Tobacco Use Types Packs/Day Years [...] Care Team (Late st Contact Info) Description 08/28/2025 10:10 AM EST Visit [facility] [address] [place] [phone] Yasmani Abdullahi, DO [address] [place] [address] documented as of this encounter Procedures Procedure Name Priority Date/Time Associated Diagnosis Comments US OB BPP W NON-STRESS 07/16/2025 8:29 AM EDT documented in this encounter Results * US OB BPP W NON-STRESS (07/16/2025 8:29 AM EDT) Anatomical Region Laterality Modality Other 07/16/2025 8:29 AM EDT Narrative 07/16/2025 8:32 [place] [address] Ultrasound Report Signed Patient: TREVA GOETZ MR#: [id number] : 1990 Acct:[id number] Age/Sex: 35 / F ADM Date: 07/16/25 Loc: [facility] 250-[address]: Yasmani Abdullahi D.O. Ordering Physician: Yasmani Abdullahi D.O. Date of Service: 07/16/25 Procedure(s): US OB BPP w non-stress Accession Number(s): [id number] cc: Kathy Reynaga M.D.; Yasmani Abdullahi D.O. [place] [address] Patient Name: TREVA GOETZ MRN: [id number] date: 1990 Sex: F Assigned Patient Location: [facility] Current Patient Location: [facility] Accession/Order Number: [id number] Exam Date: 07/16/2025 07:36 Report Date: 07/16/2025 [...] Barnhart M.D. 07/16/2025 8:29 AM Dictation Location: [place] [address] Electronically authenticated by: [id number] Y Date: 07/16/2025 08:29 Dictated By: Annel Barnhart M.D. Signed By: 07/16/25831 DD/ 8 TD/TT: Dial Maker: Procedure Note Radiology, Radiologist, MD - 07/16/2025 [place] [address] Ultrasound Report Signed Patient: TREVA GOETZ EMR#: [id number] : 1990Acct:[id number] Age/Sex: 35 / FADM Date: 07/16/25 Loc: [facility] 250-[address]: Yasmani Abdullahi D.O. Ordering Physician: Yasmani Abdullahi D.O. Date of Service: 07/16/25 Procedure(s): US OB BPP w non-stress Accession Number(s): [id number] cc: Kathy Reynaga M.D.; Yasmani Abdullahi D.O. The [place] [phone] Patient Name: TREVA GOETZ MRN: [id number] date: 1990 Sex: F Assigned Patient Location: [facility] Current Patient Location: [facility] Accession/Order Number: [id number] Exam Date: 07/16/2025 07:36 Report Date: 07/16/2025 [...] Barnhart M.D. 07/16/2025 8:29 AM Dictation Location: [place] [address] Electronically authenticated by: [id number] Y Date: 508:29 Dictated By: Annel Barnhart M.D. Signed By:07/16/2532 DD/ 8 TD/TT: Dial Maker: us Yasmani Kaylen DO [facility] Final Result documented in this encounter Visit Diagnoses Not on filedocumented in this encounter Care Teams Access Analyst 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 Specialty Start Date End Date Kathy Reynaga MD [address] [place] [address] PCP - General Family Medicine 01/27/24 documented as of this encounter
--- OUTSIDE RECORDS SUMMARY | 2025-07-24 07:35 | XMS_ITS | Encounter Summary ---
Author Organization [facility] Address [address] [place] [address] Care Team Providers Care Communication Center Operator Name Role Phone Kathy Reynaga MD Primary Care Provider [phone] Encounter Details Date Type Department Care Team (Late st Contact Info) Description 07/19/2025 Abstract [facility] [address] [facility] [place] [address] Lanie Mendez, SAMUEL [address] [facility] [place] [address] Social History Tobacco Use Types Packs/Day Years [...] Info) Description 08/28/2025 10:10 AM EST Visit [facility] [address] [facility] [place] [address] Yasmani Abdullahi DO [address] [place], [place] [address] documented as of this encounter Visit Diagnoses Not on filedocumented in this encounter Care Teams Communication Center Operator 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 Specialty Start Date End Date Kathy Reynaga MD [facility] [place] [address] PCP - General Family Medicine 01/27/24 documented as of this encounter
--- OUTSIDE RECORDS SUMMARY | 2025-07-24 07:35 | XMS_ITS | Encounter Summary ---
Author Organization [facility] Address [address] [place] [address] Care Team Providers Care Supervisor Building Maintenance Name Role Phone Kathy Reynaga MD Primary Care Provider [phone] Encounter Details Date Type Department Care Team (Late st Contact Info) Description 07/11/2025 Clinisync Result Encounter NOMS External Department Unsolicited Yasmani Abdullahi, DO [address] [place] [address] Social History Tobacco Use Types Packs/Day Years [...] Visit [facility] [address] [place] [address] Yasmani Abdullahi, DO [address] [place] [address] documented as of this encounter Procedures Procedure Name Priority Date/Time Associated Diagnosis Comments US OB BPP W NON-STRESS 07/11/2025 9:20 AM EDT documented in this encounter Results * US OB BPP W NON-STRESS (07/11/2025 9:20 AM EDT) Anatomical Region Laterality Modality Other 07/11/2025 9:20 AM EDT Narrative 07/11/2025 9:22 [place] [address] Ultrasound Report Signed Patient: TREVA GOETZ MR#: [id number] : 1990 Acct:[id number] Age/Sex: 35 / F ADM Date: 07/11/25 Loc: [facility] 250-[address]: Yasmani Abdullahi D.O. Ordering Physician: Yasmani Abdullahi D.O. Date of Service: 07/11/25 Procedure(s): US OB BPP w non-stress Accession Number(s): [id number] cc: Kathy Reynaga M.D.; Yasmani Abdullahi D.O. [place] [address] Patient Name: TREVA GOETZ MRN: [id number] date: 1990 Sex: F Assigned Patient Location: [facility] Current Patient Location: [facility] Accession/Order Number: [id number] Exam Date: 07/11/2025 07:37 Report Date: 07/11/2025 09:20 At the request of: YASMANI ABDULLAHI DO Procedure: US OB BPP w non-stress Biophysical profile. Reason for exam: Advanced maternal age COMPARISON: 07/04/2025 TECHNIQUE: Transabdominal imaging of the gravid uterus was obtained. FINDINGS: The automotive maintenance technician reports a BPP of 8 out of 8. GRAYSON is normal at 19.8 cm. heart rate 139 bpm. US/US OB BPP w non-stress IMPRESSION: BPP 8 out of 8. Impression dictated by: iMnh Potter Jr. Arturo 07/11/2025 9:20 AM Dictation Location: [place] [address] Electronically authenticated by: [id number] Y Date: 07/11/2025 09:20 Dictated By: Minh Potter M.D. Signed By: 07/11/25921 DD/ 9 TD/TT: Director Banking: Procedure Note Radiology, Radiologist, MD - 07/11/2025 [place] [address] Ultrasound Report Signed Patient: TREVA GOETZ EMR#: [id number] : 1990Acct:[id number] Age/Sex: 35 / FADM Date: 07/11/25 Loc: [place] [address]-[address]: Yasmani Abdullahi D.O. Ordering Physician: Yasmani Abdullahi D.O. Date of Service: 07/11/25 Procedure(s): US OB BPP w non-stress Accession Number(s): [id number] cc: Kathy Reynaga M.D.; Yasmani Abdullahi D.O. The [place] [phone] Patient Name: TREVA GOETZ MRN: [facility]:[id number] date: 1990 Sex: F Assigned Patient Location: [facility] Current Patient Location: [facility] Accession/Order Number: [id number] Exam Date: 07/11/2025 07:37 Report Date: 07/11/2025 09:20 At the request of: YASMANI ABDULLAHI DO Procedure: US OB BPP w non-stress Biophysical profile. Reason for exam: Advanced maternal age COMPARISON: 07/04/2025 TECHNIQUE: Transabdominal imaging of the gravid uterus was obtained. FINDINGS: The automotive maintenance technician reports a BPP of 8 out of 8. GRAYSON is normal at19.8 cm. heart rate 139 bpm. US/US OB BPP w non-stress IMPRESSION: BPP 8 out of 8. Impression dictated by: Minh Potter Jr., D.O. 07/11/2025 9:20 AM Dictation Location: [place] [address] Electronically authenticated by: [id number] Y Date: 9:20 Dictated By: Minh Potter M.D. Signed By:07/11/25921 DD/ 9 TD/TT: Director Banking: us Yasmani Kaylen DO [facility] Final Result documented in this encounter Visit Diagnoses Not on filedocumented in this encounter Care Teams Supervisor Building Maintenance 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 Specialty [place] [address] [place] [phone] PCP - General Family Medicine 01/27/24 documented as of this encounter
--- OUTSIDE RECORDS SUMMARY | 2025-07-24 07:35 | XMS_ITS | Encounter Summary ---
Author Organization [facility] Address [address] [place] [address] Care Team Providers Care Metal Washing Machine Operator Name Role Phone Kathy Reynaga MD Primary Care Provider [phone] Encounter Details Date Type Department Care Team (Late st Contact Info) Description 07/19/2025 Bamboo flowsheet [facility] [address] [place] [address] Lanie Mendez, SAMUEL [address] [facility] [place] [address] Social History Tobacco Use Types Packs/Day Years [...] AM EST Visit [facility] [address] [facility] [place] [address] Yasmani Abdullahi DO [address] [place], [facility] documented as of this encounter Visit Diagnoses Not on filedocumented in this encounter Care Teams Metal Washing Machine Operator 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 Specialty Start Date End Date Kathy Reynaga MD [address] [facility] [place] [address] PCP - General Family Medicine 01/27/24 documented as of this encounter
--- NOTE | 2025-07-24 07:36 | US_ITS ---
The [place] [address] Patient Name: NORIS SAUCEDA MRN: [id number] date: 1990 Sex: F Assigned Patient Location: [facility] Current Patient Location: [facility] Accession/Order Number: [id number] Exam Date: 07/24/2025 07:38 Report Date: 07/24/2025 08:13 At the request of: MARBELLA OMER DO Procedure: US OB BPP w non-stress BIOPHYSICAL PROFILE: CLINICAL INFORMATION: Advanced maternal age COMPARISON: 07/14/2025 There is a single live intrauterine gestation in cephalic presentation. The reported gestational age is 39 weeks 3 days. The heart rate measures 138 beats per minute. FINDINGS: TONE: 1 or more episodes of activity extension and flexion of extremity or opening and closing of the hand [Y] 2/2 GROSS BODY MOVEMENTS: 3 or more discrete body or limb movements [Y] 2/2 BREATHING MOVEMENTS: 1 or more episodes of breathing lasting at least 30 seconds [Y] 2/2 GRAYSON: A single deepest vertical pocket of amniotic fluid greater than 2 cm [Y] 2/2 GRAYSON: 18.3 cm. This is in upper normal range. Total score: 8/8 US/US OB BPP w non-stress IMPRESSION: NORMAL BIOPHYSICAL PROFILE Impression dictated by: Annel Barnhart M.D. 07/24/2025 8:13 AM Dictation Location: [place] [address] Electronically authenticated by: [id number] Y Date: 07/24/2025 08:13
--- OUTSIDE RECORDS SUMMARY | 2025-07-24 07:36 | XMS_ITS | Encounter Summary ---
Author Organization [facility] Address [address] [place] [address] Care Team Providers Care Black Leather Trimmer Name Role Phone Kathy Reynaga MD Primary Care Provider [phone] Encounter Details Date Type Department Care Team (Late st Contact Info) Description 12/11/2024 Abstract [facility] [address] [place] [address] Yasmani Abdullahi DO [facility] [address] [place], [place] [address] Social History Tobacco Use Types Packs/Day Years [...] Info) Description 08/28/2025 10:10 AM EST Visit [facility] ALVAREZ [address] [place] [address] Yasmani Abdullahi DO [facility] [address] [place], [place] [address] documented as of this encounter Visit Diagnoses Not on filedocumented in this encounter Care Teams Black Leather Trimmer 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 Specialty Start Date End Date Kathy Reynaga MD [address] [place] [address] PCP - General Family Medicine 01/27/24 documented as of this encounter
--- OUTSIDE RECORDS SUMMARY | 2025-07-24 07:36 | XMS_ITS | Encounter Summary ---
Author Organization [facility] Address [address] [place] [address] Care Team Providers Care Supervisor Polishing Name Role Phone Kathy Reynaga MD Primary Care Provider [phone] Encounter Details Date Type Department Care Team (Late st Contact Info) Description 12/29/2024 Abstract [facility] [address] [facility] [place] [address] Yasmani Abdullahi DO [address] [place], [place] [address] Social History Tobacco Use Types Packs/Day Years [...] 10:10 AM EST Visit [facility] [address] [place] [address] Yasmani Abdullahi DO [address] [place], [place] [address] documented as of this encounter Visit Diagnoses Not on filedocumented in this encounter Care Teams Supervisor Polishing 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 Specialty Start Date End Date Kathy Reynaga MD [address] [place] [phone] PCP - General Family Medicine 01/27/24 documented as of this encounter
--- OUTSIDE RECORDS SUMMARY | 2025-07-24 07:36 | XMS_ITS | Encounter Summary ---
Author Organization [facility] Address [address] [place] [address] Care Team Providers Care Computer Operations Supervisor Name Role Phone Kathy Reynaga MD Primary Care Provider [phone] Encounter Details Date Type Department Care Team (Late st Contact Info) Description 12/27/2024 Abstract [facility] [address] [facility] [address] Yasmani Abdullahi DO [address] [place], [place] [address] Social History Tobacco Use Types Packs/Day Years [...] EST Visit [facility] [address] [place] [address] Yasmani Abdullahi DO [address] [place], [place] [address] documented as of this encounter Visit Diagnoses Not on filedocumented in this encounter Care Teams Computer Operations Supervisor 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 Specialty Start Date End Date Kathy Reynaga MD [address] [place] [phone] PCP - General Family Medicine 01/27/24 documented as of this encounter
--- OUTSIDE RECORDS SUMMARY | 2025-07-24 07:36 | XMS_ITS | Encounter Summary ---
Author Organization [facility] Address [address] [place] [address] Care Team Providers Care Grain Buyer Name Role Phone Kathy Reynaga MD Primary Care Provider [phone] Encounter Details Date Type Department Care Team (Late st Contact Info) Description 12/28/2024 Abstract [facility] [address] [facility] [place] [address] Yasmani Abdullahi DO [address] [place], [place] [address] Social History Tobacco Use Types Packs/Day Years [...] EST Visit [facility] [address] [place] [address] Yasmani Abdullahi DO [address] [place], [place] [address] documented as of this encounter Visit Diagnoses Not on filedocumented in this encounter Care Teams Grain Buyer 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 Specialty Start Date End Date Kathy Reynaga MD [address] [place] [phone] PCP - General Family Medicine 01/27/24 documented as of this encounter
--- OUTSIDE RECORDS SUMMARY | 2025-07-24 07:36 | XMS_ITS | Encounter Summary ---
Author Organization [facility] Address [address] [place] [address] Care Team Providers Care Pressurizer Name Role Phone Kathy Reynaga MD Primary Care Provider [phone] Encounter Details Date Type Department Care Team (Late st Contact Info) Description 12/25/2024 Abstract [facility] [address] [facility] [place] [address] Yasmani Abdullahi DO [address] [place] [address] Social History Tobacco Use Types Packs/Day Years [...] Visit [facility] AL[facility] [address] [place] [address] Yasmani Abdullahi DO [address] [place], [place] [address] documented as of this encounter Visit Diagnoses Not on filedocumented in this encounter Care Teams Pressurizer 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 Specialty Start Date End Date Kathy Reynaga MD [address] [place] [phone] PCP - General Family Medicine 01/27/24 documented as of this encounter
--- OUTSIDE RECORDS SUMMARY | 2025-07-24 07:37 | XMS_ITS | Encounter Summary ---
Author Organization [facility] Address [address] [place] [address] Care Team Providers Care Emergency Room Nurse Name Role Phone Kathy Reynaga MD Primary Care Provider Encounter Details Date Type Department Care Team (Late st Contact Info) Description 03/02/2025 Abstract [facility] ALVAREZ [address] [facility] [place] [address] Tamiko Montana MA Social History Tobacco [...] EST Visit [facility] [address] [facility] [place] [address] Yasmani Abdullahi DO [address] [facility] [place] [address] documented as of this encounter Visit Diagnoses Not on filedocumented in this encounter Care Teams Emergency Room Nurse 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 Specialty Start Date End Date Kathy Reynaga MD [address] [place] [address] PCP - General Family Medicine 01/27/24 documented as of this encounter
--- OUTSIDE RECORDS SUMMARY | 2025-07-24 07:37 | XMS_ITS | Encounter Summary ---
Author Organization [facility] Address [address], [address] [place] [address] Care Team Providers Care Conference Manager Name Role Phone Kathy Reynaga MD Primary Care Provider [phone] Encounter Details Date Type Department Care Team (Late st Contact Info) Description 10/17/2016 FollowUp Telephone Encounter [facility] Labor and Delivery [address] [place] [phone] Anneliese Perkins, RN Social History Tobacco Use [...] on filedocumented in this encounter Care Teams Conference Manager 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 Specialty Start Date End Date Kathy Reynaga MD PCP - General 07/15/16 documented as of this encounter
--- OUTSIDE RECORDS SUMMARY | 2025-07-24 07:37 | XMS_ITS | Encounter Summary ---
Author Organization [facility] Address [address], [address] [place] [address] Care Team Providers Care Rabbit Fancier Name Role Phone Kathy Reynaga MD Primary Care Provider [phone] Encounter Details Date Type Department Care Team (Late st Contact Info) Description 04/17/2014 FollowUp Telephone Encounter [facility] Delivery [address] [id number] Maria Eugenia Thomas RN Social History Tobacco [...] your baby had an appointment with the handbag operator yet? Yes last Wednesday and 04/17 and [...] stay? follow-up phone call with our manager freelance? No, wonderful. During your stay, did any [...] on filedocumented in this encounter Care Teams Rabbit Fancier 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 Specialty Start Date End Date Kathy Reynaga MD PCP - General 07/15/16 documented as of this encounter
--- OUTSIDE RECORDS SUMMARY | 2025-07-24 07:37 | XMS_ITS | Encounter Summary ---
Author Organization [facility] Address [address] [place] [address] Care Team Providers Care Tool Salvage Worker Name Role Phone Kathy Reynaga MD Primary Care Provider [phone] Encounter Details Date Type Department Care Team (Late st Contact Info) Description 02/23/2025 Orders Only [facility] [address] [place] [address] Tamiko Montana MA Social History Tobacco [...] AM EST Visit [facility] [address] [place] [address] Yasmani Abdullahi DO [address] [place] [address] documented as of this encounter Procedures Procedure Name Priority Date/Time Associated Diagnosis Comments PAP SMEAR Routine 02/15/2025 12:00 AM EDT documented in this encounter Results * Pap Smear (02/15/2025 12:00 AM EDT) Swab Cervical swab / Unknown us Yasmani Kaylen DO LAB CYTOLOGY ORDERABLES Final Re sult EXTERNAL LAB documented in this encounter Visit Diagnoses Not on filedocumented in this encounter Care Teams Tool Salvage Worker 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 Specialty Start Date End Date Kathy Reynaga MD [address] [place] [address] PCP - General Family Medicine 01/27/24 documented as of this encounter
--- OUTSIDE RECORDS SUMMARY | 2025-07-24 07:37 | XMS_ITS | Encounter Summary ---
Author Organization [facility] Address [address] [place] [address] Care Team Providers Care Locker Plant Attendant Name Role Phone Kathy Reynaga MD Primary Care Provider [phone] Encounter Details Date Type Department Care Team (Late st Contact Info) Description 12/29/2024 Abstract [facility] [address] [facility] [place] [address] Yasmani Abdullahi DO [address] [place], [place] [id number] Social History Tobacco Use Types Packs/Day Years [...] EST Visit [facility] [address] [place] [phone] Yasmani Abdullahi DO [address] [place], [place] [id number] documented as of this encounter Visit Diagnoses Not on filedocumented in this encounter Care Teams Locker Plant Attendant 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 Specialty Start Date End Date Kathy Reynaga MD [address] [place] [phone] PCP - General Family Medicine 01/27/24 documented as of this encounter
--- OUTSIDE RECORDS SUMMARY | 2025-07-24 07:37 | XMS_ITS | Encounter Summary ---
Author Organization [facility] Address [address], [address] [place] [address] Care Team Providers Care Undercover Agent Name Role Phone Kathy Reynaga MD Primary Care Provider [phone] Encounter Details Date Type Department Care Team (Late st Contact Info) Description 10/09/2016 FollowUp Telephone Encounter [facility] Delivery [address] [place], [place] [id number] Nelsy Guardado, [place] [address] Social History Tobacco Use Types Packs/Day Years [...] on filedocumented in this encounter Care Teams Undercover Agent 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 Specialty Start Date End Date Kathy Reynaga MD PCP - General 07/15/16 documented as of this encounter
--- OUTSIDE RECORDS SUMMARY | 2025-07-24 07:37 | XMS_ITS | Encounter Summary ---
Author Organization [facility] Address [address] [place] [address] Care Team Providers Care Shake Loader Name Role Phone Kathy Reynaga MD Primary Care Provider [phone] Encounter Details Date Type Department Care Team (Late st Contact Info) Description 03/01/2025 Abstract [facility] [address] [facility] [address] Tamiko Montana MA Social History Tobacco [...] AM EST Visit [facility] [address] [address] [address] Yasmani Abdullahi DO [address] [facility] [place] [address] documented as of this encounter Visit Diagnoses Not on filedocumented in this encounter Care Teams Shake Loader 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 Specialty Start Date End Date Kathy Reynaga MD [address] [place] [address] PCP - General Family Medicine 01/27/24 documented as of this encounter
--- OUTSIDE RECORDS SUMMARY | 2025-07-24 07:37 | XMS_ITS | Clinical Summary ---
Author Organization [facility] Address [address], [address] [place] [address] Care Team Providers Care Glue Machine Operator Name Role Phone Kathy Reynaga MD Primary Care Provider [phone] Allergies No known active allergies Medications MV-Min-Fe Fum-FA-DHA ( 1 PO) Take by mouth Active amoxicillin (AMOXIL) 875 MG tablet Take 875 mg by mouth 2 times daily Active Active Problems Patient Care Coordination No te Formatting of this note migh t be different from the original. [facility] risk assesment form = NA [...] of Treatment Not on file Insurance [address] [id number] [employer] Advance Directives * Full Code [...] 4:53 PM 04/12/2014 3:44 AM Care Teams Glue Machine Operator 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 Specialty Start Date End Date Kathy Reynaga MD PCP - General 07/15/16
--- OUTSIDE RECORDS SUMMARY | 2025-07-24 07:38 | XMS_ITS | Encounter Summary ---
Author Organization [facility] Address [address] [place] [address] Care Team Providers Care Pattern Setter Name Role Phone Kathy Reynaga MD Primary Care Provider [phone] Encounter Details Date Type Department Care Team (Late st Contact Info) Description 05/09/2025 Abstract [facility] [address] [facility] [address] Yasmani Abdullahi DO [address] [place], [place] [phone] Social History Tobacco Use Types Packs/Day Years [...] EST Visit [facility] [address] [place] [phone] Yasmani Abdullahi DO [address] [place], [place] [phone] documented as of this encounter Visit Diagnoses Not on filedocumented in this encounter Care Teams Pattern Setter 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 Specialty Start Date End Date Kathy Reynaga MD [address] [place] [phone] PCP - General Family Medicine 01/27/24 documented as of this encounter
--- OUTSIDE RECORDS SUMMARY | 2025-07-24 07:38 | XMS_ITS | Encounter Summary ---
Author Organization [facility] Address [address] [place] [address] Care Team Providers Care Telecommunications Project Manager Name Role Phone Kathy Reynaga MD Primary Care Provider [phone] Encounter Details Date Type Department Care Team (Late st Contact Info) Description 03/16/2025 Abstract [facility] [address] [facility] [place] [address] Yasmani Abdullahi DO [address] [place], [place] [phone] Social History Tobacco Use Types Packs/Day Years [...] EST Visit [facility] [address] [place] [phone] Yasmani Abdullahi DO [address] [place], [place] [phone] documented as of this encounter Visit Diagnoses Not on filedocumented in this encounter Care Teams Telecommunications Project Manager 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 Specialty Start Date End Date Kathy Reynaga MD [address] [place] [phone] PCP - General Family Medicine 01/27/24 documented as of this encounter
--- OUTSIDE RECORDS SUMMARY | 2025-07-24 07:38 | XMS_ITS | CCD ---
Author Organization [facility] Care Team Providers Care Mattress Weaver Name Role Phone OLIVA, MARIANELA E Unavailable Unavailable OLIVA, MARIANELA E Unavailable Unavailable OLIVA, MARIANELA E Unavailable Unavailable Macario Jarvis Attending Unavailable OLIVA, MARIANELA~[phone] UNKNOWN Primary Care Unavailable HEDGES, CHAU Admitting Unavailable HEDGES, CHAU Attending Unavailable HEDGES, CHAU Referring Unavailable OLIVA, MARIANELA~[phone] UNKNOWN Primary Care Unavailable HEDGES, CHAU W [...] Care Provider DO Mario Perez Attending Provider [phone] MD Marianela Oliva Primary Care Provider MD Derrick Wilson Attending Provider Marianela Oliva Unavailable MD Marianela Oliva Primary Care Provider DO Marissa Garcia Attending Provider MD Marianela Oliva Attending Provider MD Marianela Oliva Primary Care Provider Kuns, DO Mario P Attending Provider MD Marianela Oliva Primary Care Provider Kuns - [facility], DO Mario P Attending Provider MD Marianela Oliva Attending Provider [phone] MD Derrick Wilson Attending Provider NO FAMILY, PHYSICIAN Primary Care Provider Unava ilable SAUL Reddy Attending Provider Marianela Oliva MD Primary Care Provider Marianela Oliva MD Primary Care Provider Dasia SANTAMARIA Jose Luana Emergency Provider Marianela Oliva MD Primary Care Provider Dasia SANTAMARIA Jose Luana Emergency Provider [phone] Yasmani Abdullahi DO Attending Provider Marianela Oliva MD Primary Care Provider Marianela Oliva MD Primary Care Provider Marianela Oliva MD Primary Care Provider [phone] Kuns - [facility], Mario P Admitting Unavailable [...] Care Provider Yasmani Abdullahi DO Attending Provider [facility] Mario SANTAMARIA Attending Provider Marianela Oliva MD Attending Provider [phone] KAYLEN, YASMANI Attending Unavailable KAYLEN, YASMANI Attending Unavailable KAYLEN, YASMANI Referring Unavailable KAYLEN, YASMANI Attending Unavailable KAYLEN, YASMANI Attending Unavailable KAYLEN, YASMANI Attending Unavailable KAYLEN, YASMANI Referring Unavailable KAYLEN, YASMANI Attending Unavailable KAYLEN, YASMANI Attending Unavailable KAYLEN, YASMANI Attending Unavailable KAYLEN, YASMANI Attending Unavailable KAYLEN, YASMANI Attending Unavailable ROCK MENDEZ Attending Unavailable Medications Current Medications Medication Drug [...] capsule (6 sources) Penicillin-class Antibacterial Start: 12-04-19 23 take 1 capsule by mouth every eight [...] Drug Class(es) Dates Sig (Normalized) Sig (Original) [id number] 200 actuat albuterol 0.09 mg/actuat metered dose [...] oral tablet (6 sources) alpha-Adrenergic Agonist, Uncompetitive O-dbublb-N-aspartat e Receptor Antagonist, Sigma-1 Agonist Start: 08-11-2024 [...] , childbirth and the puer[place]ium] 07-05-2025 Episodic Residual codes; unclassified (2 sources) Gestation period, 38 weeks; Translations: [38 weeks gestation of ] 07-19-2025 Episodic Unclassified (1 source) Cough, unspecified; Translations: [...] Range Facility Urinalysis macro (dipstick) panel (U)on 07-19-2025 Bilirubin, UA Negative Negative - 4(70) +++ mg/dL [facility] Blood, UA Negative Negative - 50 Tavon/mcL [facility] Clarity, UA Clear [facility] Color, UA Yellow [facility] Glucose, UA Negative Negative - 2000(110) ++++ mg/dL [facility] Interpretation and review of laboratory results Normal [facility] Ketones, UA Negative Negative - 160(16) ++++ mg/dL [facility] Leukocytes, UA Negative Negative - 500+++ Bertha/mcL [facility] Nitrite, UA Negative Negative - Positive [facility] pH, UA 7 5 - 9 [facility] Protein, UA Negative Negative - 2000(20) ++++ mg/dL [facility] Spec Grav, UA 1.015 1 - 1.03 [facility] Urobilinogen, UA 1.0 0.2 - 12 mg/dL [facility] US OB BPP W NON-STRESS on 07-16-[address] [address] Ultrasound Report Signed Patient: NORIS GOETZ MR#: [id number] : 1990 Acct:[id number] Age/Sex: 35 / F ADM Date: 07/16/25 Loc: [facility] 250-[address]: Yasmani Abdullahi D.O. Ordering Physician: Yasmani Abdullahi D.O. Date of Service: 07/16/25 Procedure(s): US OB BPP w non-stress Accession Number(s): [id number] cc: Marianela Oliva M.D.; Yasmani Abdullahi D.O. [place] [address] Patient Name: NORIS GOETZ MRN: [id number] date: 1990 Sex: F Assigned Patient Location: [facility] Current Patient Location: [facility] Accession/Order Number: [id number] Exam Date: 07/16/2025 07:36 Report Date: 07/16/2025 [...] Barnhart M.D. 07/16/2025 8:29 AM Dictation Location: [place] [address] Electronically authenticated by: [id number] Y Date: 07/16/2025 08:29 Dictated By: Annel Barnhart M.D. Signed By: 07/16/25831 DD/ 8 TD/TT: Peer Health Promoter: [facility] Radiology, Radiologjoni blake MD - 07/16/2025 [place] [address] Ultrasound Report Signed Patient: NORIS GOETZ MR#: [id number] : 1990 Acct:[id number] Age/Sex: 35 / F ADM Date: 07/16/25 Loc: [facility] 250-[address]: Yasmani Abdullahi D.O. Ordering Physician: Yasmani Abdullahi D.O. Date of Service: 07/16/25 Procedure(s): US OB BPP w non-stress Accession Number(s): [id number] cc: Marianela Oliva M.D.; Yasmani Abdullahi D.O. The [place] [address] Patient Name: NORIS GOETZ MRN: [facility]:[id number] date: 1990 Sex: F Assigned Patient Location: [facility] Current Patient Location: [facility] Accession/Order Number: [id number] Exam Date: 07/16/2025 07:36 Report Date: 07/16/2025 [...] Barnhart M.D. 07/16/2025 8:29 AM Dictation Location: [place] [address] Electronically authenticated by: [id number] Y Date: 07/16/2025 08:29 Dictated By: Annel Barnhart M.D. Signed By: 07/16/25831 DD/ 8 TD/TT: Peer Health Promoter: [facility] Radiology Study observation (narrative) [facility] US OB BPP W NON-STRESS Ordered By: Radiologist Radiology on 07-16-2025 [facility] [employer] Work Phone: US OB BPP W NON-STRESS on 07-11-2025 [place] [address] Ultrasound Report Signed Patient: NORIS GOETZ MR#: [id number] : 1990 Acct:[id number] Age/Sex: 35 / F ADM Date: 07/11/25 Loc: [facility] [address]: Yasmani Abdullahi D.O. Ordering Physician: Yasmani Abdullahi D.O. Date of Service: 07/11/25 Procedure(s): US OB BPP w non-stress Accession Number(s): [id number] cc: Marianela Oliva M.D.; Yasmani Abdullahi D.O. [place] [id number] Patient Name: NORIS GOETZ MRN: [id number] date: 1990 Sex: F Assigned Patient Location: [facility] Current Patient Location: [facility] Accession/Order Number: [id number] Exam Date: 07/11/2025 07:37 Report Date: 07/11/2025 09:20 At the request of: YASMANI ABDULLAHI DO Procedure: US OB BPP w non-stress Biophysical profile. Reason for exam: Advanced maternal age COMPARISON: 07/04/2025 TECHNIQUE: Transabdominal imaging of the gravid uterus was obtained. FINDINGS: The computer animator reports a BPP of 8 out of 8. RGAYSON is normal at 19.8 cm. heart rate 139 bpm. US/US OB BPP w non-stress IMPRESSION: BPP 8 out of 8. Impression dictated by: Minh Potter Jr., D.O. 07/11/2025 9:20 AM Dictation Location: [place] [address] Electronically authenticated by: [id number] Y Date: 07/11/2025 09:20 Dictated By: Minh Potter M.D. Signed By: 07/11/25921 DD/ 9 TD/TT: Peer Health Promoter: [facility] RadiologyAnupamaogjoni blake MD - 07/11/2025 [place] [address] Ultrasound Report Signed Patient: NORIS GOETZ MR#: [id number] : 1990 Acct:[id number] Age/Sex: 35 / F ADM Date: 07/11/25 Loc: [place] [address]: Yasmani Abdullahi D.O. Ordering Physician: Yasmani Abdullahi D.O. Date of Service: 07/11/25 Procedure(s): US OB BPP w non-stress Accession Number(s): [id number] cc: Marianela Oliva M.D.; Yasmani Abdullahi D.O. The [place] [address] Patient Name: NORIS GOETZ MRN: [facility]:[id number] date: 1990 Sex: F Assigned Patient Location: [facility] Current Patient Location: [facility] Accession/Order Number: [id number] Exam Date: 07/11/2025 07:37 Report Date: 07/11/2025 09:20 At the request of: YASMANI ABDULLAHI DO Procedure: US OB BPP w non-stress Biophysical profile. Reason for exam: Advanced maternal age COMPARISON: 07/04/2025 TECHNIQUE: Transabdominal imaging of the gravid uterus was obtained. FINDINGS: The computer animator reports a BPP of 8 out of 8. GRAYSON is normal at 19.8 cm. heart rate 139 bpm. US/US OB BPP w non-stress IMPRESSION: BPP 8 out of 8. Impression dictated by: Minh Potter Jr., D.O. 07/11/2025 9:20 AM Dictation Location: [place] [address] Electronically authenticated by: [id number] Y Date: 07/11/2025 09:20 Dictated By: Minh Potter M.D. Signed By: 07/11/25921 DD/ 9 TD/TT: Peer Health Promoter: [facility] Radiology Study observation (narrative) [facility] US OB BPP W NON-STRESS Ordered By: Radiologist Radiology on 07-11-2025 [facility] Work Phone: Urinalysis macro (dipstick) panel (U)on 07-09-2025 Bilirubin, UA Negative Negative - 4(70) +++ mg/dL [facility] Blood, UA Negative Negative - 50 Tavon/mcL [facility] Clarity, UA Clear [facility] Color, UA Yellow [facility] Glucose, UA Negative Negative - 1999(110) ++++ mg/dL [facility] Interpretation and review of laboratory results Abnormal [facility] Ketones, UA Negative Negative - 160(16) ++++ mg/dL [facility] Leukocytes, UA 2+ Negative - 500+++ Bertha/mcL [facility] Nitrite, UA Negative Negative - Positive [facility] pH, UA 6 5 - 9 [facility] Protein, UA Negative Negative - 2000(20) ++++ mg/dL [facility] Spec Grav, UA 1.015 1 - 1.03 [facility] Urobilinogen, UA 0.2 0.2 - 12 mg/dL [facility] Urinalysis macro (dipstick) panel (U)on 07-05-2025 Bilirubin, UA Negative Negative - 4(70) +++ mg/dL [facility] Blood, UA Negative Negative - 50 Tavon/mcL [facility] Clarity, UA Clear [facility] Color, UA Yellow [facility] Glucose, UA Positive Negative - 2000(110) ++++ mg/dL [facility] Interpretation and review of laboratory results Abnormal [facility] Ketones, UA Negative Negative - 160(16) ++++ mg/dL [facility] Leukocytes, UA Positive Negative - 500+++ Bertha/mcL [facility] Nitrite, UA Negative Negative - Positive [facility] pH, UA 6.5 5 - 9 [facility] Protein, UA Negative Negative - 2000(20) ++++ mg/dL [facility] Spec Grav, UA 1.01 1 - 1.03 [facility] Urobilinogen, UA 1.0 0.2 - 12 mg/dL [facility] US OB BPP W NON-STRESS on 07-04-2025 [place] [address] Ultrasound Report Signed Patient: NORIS GOETZ MR#: [id number] : 1990 Acct:[id number] Age/Sex: 35 / F ADM Date: 07/04/25 Loc: US Attending Dr: Yasmani Abdullahi D.O. Ordering Physician: Yasmani Abdullahi D.O. Date of Service: 07/04/25 Procedure(s): US OB BPP w non-stress Accession Number(s): [id number] cc: Marianela Oliva M.D.; Yasmani Abdullahi D.O. [place] [id number] Patient Name: NORIS GOETZ MRN: [id number] date: 1990 Sex: F Assigned Patient Location: [facility] Current Patient Location: Accession/Order Number: [id number] Exam Date: 07/04/2025 07:33 Report Date: 07/04/2025 [...] Barnhart M.D. 07/04/2025 9:15 AM Dictation Location: [place] [address] Electronically authenticated by: [id number] Y Date: 07/04/2025 09:15 Dictated By: Annel Barnhart M.D. Signed By: 07/04/25917 DD/ 4 TD/TT: Peer Health Promoter: [facility] Radiology, Radiologi MD lou - 07/04/2025 [place] [address] Ultrasound Report Signed Patient: NORIS GOETZ MR#: [id number] : 1990 Acct:[id number] Age/Sex: 35 / F ADM Date: 07/04/25 Loc: US Attending Dr: Yasmani Abdullahi D.O. Ordering Physician: Yasmani Abdullahi D.O. Date of Service: 07/04/25 Procedure(s): US OB BPP w non-stress Accession Number(s): [id number] cc: Marianela Oliva M.D.; Yasmani Abdullahi D.O. The [place] [id number] Patient Name: NORIS GOETZ MRN: [facility]:[id number] date: 1990 Sex: F Assigned Patient Location: [facility] Current Patient Location: Accession/Order Number: [id number] Exam Date: 07/04/2025 07:33 Report Date: 07/04/2025 09:15 At the request of: YASMANI KAYLEN DO [...] Barnhart M.D. 07/04/2025 9:15 AM Dictation Location: [facility] Electronically authenticated by: [id number] Y Date: 07/04/2025 09:15 Dictated By: Annel Barnhart M.D. Signed By: 07/04/25917 DD/ 4 TD/TT: Peer Health Promoter: [facility] Radiology Study observation (narrative) [facility] US OB BPP W NON-STRESS Ordered By: Radiologist Radiology on 07-04-2025 [facility] Work Phone: US OB BPP W NON-STRESS on 06-27-2025 [place] [address] Ultrasound Report Signed Patient: NORIS GOETZ MR#: [id number] : 1990 Acct:[id number] Age/Sex: 35 / F ADM Date: 06/27/25 Loc: US Attending Dr: Yasmani Abdullahi D.O. Ordering Physician: Yasmani Abdullahi D.O. Date of Service: 06/27/25 Procedure(s): US OB BPP w non-stress Accession Number(s): [id number] cc: Marianela Oliva M.D.; Yasmani Abdullahi D.O. The [place] [id number] Patient Name: NORIS GOETZ MRN: [facility]:[id number] date: 1990 Sex: F Assigned Patient Location: US Current Patient Location: Accession/Order Number: [id number] Exam Date: 06/27/2025 07:35 Report Date: 06/27/2025 08:36 At the request of: YASMANI ABDULLAHI DO Procedure: US OB BPP w non-stress BIOPHYSICAL PROFILE: CLINICAL INFORMATION: Multigravida of advanced maternal age COMPARISON: 06/22/2025 There is a single live intrauterine gestation in cephalic presentation. The reported gestational age is 35 weeks 4 days The heart rate [id number] beats per minute. FINDINGS: TONE: 1 or [...] Barnhart M.D. 06/27/2025 8:36 AM Dictation Location: [place] [address] Electronically authenticated by: [id number] Y Date: 06/27/2025 08:36 Dictated By: Annel Barnhart M.D. Signed By: 06/27/2539 DD/ 5 TD/TT: Peer Health Promoter: [facility] RadiologyAnupamaogjoni blake MD - 06/27/2025 The [place] [id number] Ultrasound Report Signed Patient: NORIS GOETZ MR#: [id number] : 1990 Acct:[id number] Age/Sex: 35 / F ADM Date: 06/27/25 Loc: US Attending Dr: Yasmani Abdullahi D.O. Ordering Physician: Yasmani Abdullahi D.O. Date of Service: 06/27/25 Procedure(s): US OB BPP w non-stress Accession Number(s): [id number] cc: Marianela Oliva M.D.; Yasmani Abdullahi D.O. [place] [address] Patient Name: NORIS GOETZ MRN: [id number] date: 1990 Sex: F Assigned Patient Location: US Current Patient Location: Accession/Order Number: [id number] Exam Date: 06/27/2025 07:35 Report Date: 06/27/2025 [...] Barnhart M.D. 06/27/2025 8:36 AM Dictation Location: [place] [address] Electronically authenticated by: [id number] Y Date: 06/27/2025 08:36 Dictated By: Annel Barnhart M.D. Signed By: 06/27/25 0839 DD/ 0836 TD/TT: Peer Health Promoter: [facility] Radiology Study observation (narrative) [facility] US OB BPP W NON-STRESS Ordered By: Radiologist Radiology on 06-27-2025 [facility] Work Phone: US OB BPP W NON-STRESS on 06-22-2025 [place] [address] Ultrasound Report Signed Patient: NORIS GOETZ MR#: [id number] : 1990 Acct:[id number] Age/Sex: 35 / F ADM Date: 06/22/25 Loc: US Attending Dr: Yasmani Abdullahi D.O. Ordering Physician: Yasmani Abdullahi D.O. Date of Service: 06/22/25 Procedure(s): US OB BPP w non-stress Accession Number(s): [id number] cc: Marianela Oliva M.D.; Yasmani Abdullahi D.O. [place] [address] Patient Name: NORIS GOETZ MRN: [id number] date: 1990 Sex: F Assigned Patient Location: [facility] Current Patient Location: Accession/Order Number: [id number] Exam Date: 06/22/2025 17:18 Report Date: 06/22/2025 [...] Flores M.D. 06/22/2025 9:47 PM Dictation Location: [place] [address] Electronically authenticated by: [id number] Y Date: 06/22/2025 21:47 Dictated By: Alfonzo Flores D.O. Signed By: 06/22/252149 DD/ 46 TD/TT: Peer Health Promoter: [facility] Ruben Osorio MD - 06/22/2025 [place] [address] Ultrasound Report Signed Patient: NORIS GOETZ MR#: [id number] : 1990 Acct:[id number] Age/Sex: 35 / F ADM Date: 06/22/25 Loc: US Attending Dr: Yasmani Abdullahi D.O. Ordering Physician: Yasmani Abdullahi D.O. Date of Service: 06/22/25 Procedure(s): US OB BPP w non-stress Accession Number(s): [id number] cc: Marianela Oliva M.D.; Yasmani Abdullahi D.O. The [place] [address] Patient Name: NORIS GOETZ MRN: [facility]:[id number] date: 1990 Sex: F Assigned Patient Location: [facility] Current Patient Location: Accession/Order Number: [id number] Exam Date: 06/22/2025 17:18 Report Date: 06/22/2025 [...] Flores M.D. 06/22/2025 9:47 PM [facility]ictation [facility] Electron[facility] authenticated by: [id number] Y Date: 06/22/2025 21:47 Dictated By: Alfonzo Flores D.O. Signed By: 06/22/252149 DD/ 46 TD/TT: Peer Health Promoter: [facility] Radiology Study observation (narrative) [facility] US OB BPP W NON-STRESS Ordered By: Radiologist Radiology on 06-22-2025 [facility] Work Phone: US OB FOLLOW [...] UA Negative Negative - 4(70) +++ mg/dL [facility] Blood, UA Negative Negative - 50 Tavon/mcL [facility] Clarity, UA Clear [facility] Color, UA Yellow [facility] Glucose, UA Negative Negative - 2000(110) ++++ mg/dL [facility] Interpretation and review of laboratory results Abnormal [facility] Ketones, UA Positive Negative - 160(16) ++++ mg/dL [facility] Leukocytes, UA 1+ Negative - 500+++ Bertha/mcL [facility] Nitrite, UA Negative Negative - Positive [facility] pH, UA 7 5 - 9 [facility] Protein, UA Negative Negative - 2000(20) ++++ mg/dL [facility] Spec Grav, UA 1.015 1 - 1.03 [facility] Urobilinogen, UA 1.0 0.2 - 12 mg/dL [facility] US OB BPP W NON-STRESS on 06-19-2025 [place] [address] Ultrasound Report Signed Patient: NORIS GOETZ MR#: [id number] : 1990 Acct:[id number] Age/Sex: 35 / F ADM Date: 06/19/25 Loc: [facility] [address]: Yasmani Abdullahi D.O. Ordering Physician: Yasmani Abdullahi D.O. Date of Service: 06/19/25 Procedure(s): US OB BPP w non-stress Accession Number(s): [id number] cc: Marianela Oliva M.D.; Yasmani Abdullahi D.O. [place] [address] Patient Name: NORIS GOETZ MRN: [id number] date: 1990 Sex: F Assigned Patient Location: US Current Patient Location: US Accession/Order Number: [id number] Exam Date: 06/19/2025 11:08 Report Date: 06/19/2025 [...] Barnhart M.D. 06/19/2025 12:15 PM Dictation Location: [place] [address] Electronically authenticated by: [id number] Y Date: 06/19/2025 12:15 Dictated By: Annel Barnhart M.D. Signed By: 06/19/251216 DD/ 14 TD/TT: Peer Health Promoter: [facility] Radiology Radiologjoni blake MD - 06/19/2025 [place] [address] Ultrasound Report Signed Patient: NORIS GOETZ MR#: [id number] : 1990 Acct:[id number] Age/Sex: 35 / F ADM Date: 06/19/25 Loc: [place] [address]: Yasmani Abdullahi D.O. Ordering Physician: Yasmani Abdullahi D.O. Date of Service: 06/19/25 Procedure(s): US OB BPP w non-stress Accession Number(s): [id number] cc: Marianela Oliva M.D.; Yasmani Abdullahi D.O. The [place] [address] Patient Name: NORIS GOETZ MRN: [facility]:[id number] date: 1990 Sex: F Assigned Patient Location: US Current Patient Location: US Accession/Order Number: [id number] Exam Date: 06/19/2025 11:08 Report Date: 06/19/2025 [...] in upper normal range . Total score: 68 US/US OB BPP w non-stress IMPRESSION: FAILED BIOPHYSICAL PROFILE WITH NO BREATHING. Impression dictated by: Annel Barnhart M.D. 06/19/2025 12:15 PM Dictation Location: [employer] Electronically authenticated by: [id number] Y Date: 06/19/2025 12:15 Dictated By: Annel Barnhart M.D. Signed By: 06/19/25 1217 DD/ 121 TD/TT: Peer Health Promoter: [facility] Radiology Study observation (narrative) [facility] OB BPP W NON-STRESS Ordered By: Radiologist Radiology on 06-19-2025 [facility] Work Phone: Urinalysis macro (dipstick) panel (U)on 06-07-2025 Bilirubin, UA Negative Negative - 4(70) +++ mg/dL [facility] Blood, UA Negative Negative - 50 Tavon/mcL [facility] Clarity, UA Clear [facility] Color, UA Yellow [facility] Glucose, UA Negative Negative - 1999(110) ++++ mg/dL [facility] Interpretation and review of laboratory results Normal [facility] Ketones, UA Negative Negative - 160(16) ++++ mg/dL [facility] Leukocytes, UA Negative Negative - 500+++ Bertha/mcL [facility] Nitrite, UA Negative Negative - Positive [facility] pH, UA 7.5 5 - 9 [facility] Protein, UA Negative Negative - 1999(20) ++++ mg/dL [facility] Spec Grav, UA 1.005 1 - 1.03 [facility] Urobilinogen, UA 1.0 0.2 - 12 mg/dL [facility] US OB FOLLOW UP TRANSABDOMIN AL APPROACHon [...] UA Negative Negative - 4(70) +++ mg/dL [facility] Blood, UA Negative Negative - 50 Tavon/mcL [facility] Clarity, UA Clear [facility] Color, UA Yellow [facility] Glucose, UA Negative Negative - 2000(110) ++++ mg/dL [facility] Interpretation and review of laboratory results Normal [facility] Ketones, UA Negative Negative - 160(16) ++++ mg/dL [facility] Leukocytes, UA Negative Negative - 500+++ Bertha/mcL [facility] Nitrite, UA Negative Negative - Positive [facility] pH, UA 6.5 5 - 9 [facility] Protein, UA Negative Negative - 1999(20) ++++ mg/dL [facility] Spec Grav, UA 1.01 1 - 1.03 [facility] Urobilinogen, UA 1.0 0.2 - 12 mg/dL [facility] Urinalysis macro (dipstick) panel (U)on 05-10-2025 Bilirubin, UA Negative Negative - 4(70) +++ mg/dL [facility] Blood, UA Negative Negative - 50 Tavon/mcL [facility] Clarity, UA Clear [facility] Color, UA Yellow [facility] Glucose, UA Negative Negative - 1999(110) ++++ mg/dL [facility] Interpretation and review of laboratory results Abnormal [facility] Ketones, UA Positive Negative - 160(16) ++++ mg/dL [facility] Comment on above: Large Leukocytes, UA Negative Negative - 500+++ Bertha/mcL [facility] Nitrite, UA Negative Negative - Positive [facility] pH, UA 6.5 5 - 9 [facility] Protein, UA Trace Negative - 1999(20) ++++ mg/dL [facility] Spec Grav, UA 1.015 1 - 1.03 [facility] Urobilinogen, UA 0.2 0.2 - 12 mg/dL [facility] Urinalysis macro (dipstick) panel (U)on 04-10-2025 Bilirubin, UA Negative Negative - 4(70) +++ mg/dL [facility] Blood, UA Negative Negative - 50 Tavon/mcL [facility] Clarity, UA Clear [facility] Color, UA Yellow [facility] Glucose, UA Negative Negative - 1999(110) ++++ mg/dL [facility] Interpretation and review of laboratory results Normal [facility] Ketones, UA Negative Negative - 160(16) ++++ mg/dL [facility] Leukocytes, UA Negative Negative - 500+++ Bertha/mcL [facility] Nitrite, UA Negative Negative - Positive [facility] pH, UA 6.5 5 - 9 [facility] Protein, UA Negative Negative - 1999(20) ++++ mg/dL [facility] Spec Grav, UA 1.025 1 - 1.03 [facility] Urobilinogen, UA 1.0 0.2 - 12 mg/dL [facility] Albumin [Mass/volume] in Ser um or Plasma by Bromocresol green (BCG) dye binding methoOrdered By: Mario Perez on 04-02-2025 Albumin BCG dye [Mass/Vol] 3.4 g/dL Low 3.5-5.7 [facility] Cholesterol in LDL Calc [Mas s/Vol]Ordered By: Mario Perez on 04-02-2025 Cholesterol in LDL [Mass/Vol] 120 mg/dL High 0-100 [facility] Comment on above: LDL ATP III CLASSIFI CATIONLDL less than 100 mg/dL OptimalLDL 100-129 mg/dL Near or above optimalLDL 130-159 mg/dL Borderline highLDL 160-189 mg/dL HighLDL greater than 189 mg/dL Very high Cholesterol in VLDL Calc [Ma ss/Vol]Ordered By: Mario Perez on 04-02-2025 Cholesterol in VLDL [Mass/Vol] 26 mg/dL [facility] Employee Comp Metabolic Pane marcel 04-02-2025 Albumin [Mass/Vol] 3.4 g/dL Low 3.5-5.7 [facility] Comment on above: Performed By: #### P ILLAR TSH, PILLAR CBC, PILLAR BMP, PILLAR LIPID #### [facility] [address] [place] [address] GFR/1.73 sq M.predicted MDRD (S/P/Bld) [Vol rate/Area] mL/min/{1.73_m2} Normal [facility] Comment on above: Performed By: #### P ILLAR TSH, PILLAR CBC, PILLAR BMP, PILLAR LIPID #### [facility] [address] [place] [address] Employee Comp Metabolic Pane lOrdered By: Mario Perez on 04-02-2025 Albumin/Globulin [Mass ratio] 1.5 {ratio} [facility] Comment on above: Performed By: #### P ILLAR TSH, PILLAR CBC, PILLAR BMP, PILLAR LIPID #### [facility] [address] [place] [address] ALP [Catalytic activity/Vol] 39 U/L 34-104 [facility] Comment on above: Performed By: #### P ILLAR TSH, PILLAR CBC, PILLAR BMP, PILLAR LIPID #### [facility] [address] ALT [Catalytic activity/Vol] 10 U/L 7-52 [facility] Comment on above: Performed By: #### P ILLAR TSH, PILLAR CBC, PILLAR BMP, PILLAR LIPID #### [facility] [address] Anion gap [Moles/Vol] 8.5 mmol/L 6.0-15.0 [facility] Comment on above: Performed By: #### P ILLAR TSH, PILLAR CBC, PILLAR BMP, PILLAR LIPID #### [facility] [address] AST [Catalytic activity/Vol] 12 U/L Low 13-39 [facility] Comment on above: Performed By: #### P ILLAR TSH, PILLAR CBC, PILLAR BMP, PILLAR LIPID #### [facility] [address] [place] [address] Bilirubin [Mass/Vol] 0.3 mg/dL 0.3-1.0 [facility] Comment on above: Performed By: #### P ILLAR TSH, PILLAR CBC, PILLAR BMP, PILLAR LIPID #### [facility] [address] [place] [address] Calcium [Mass/Vol] 8.2 mg/dL Low 8.6-10.[address] [facility] Comment on above: Performed By: #### P ILLAR TSH, PILLAR CBC, PILLAR BMP, PILLAR LIPID #### [facility] [address] [place] [address] Chloride [Moles/Vol] 106 mmol/L 98-107 [facility] Comment on above: Performed By: #### P ILLAR TSH, PILLAR CBC, PILLAR BMP, PILLAR LIPID #### [facility] [address] [place] [address] CO2 [Moles/Vol] 25.4 mmol/L 21.0-31.0 [facility] Comment on above: Performed By: #### P ILLAR TSH, PILLAR CBC, PILLAR BMP, PILLAR LIPID #### [facility] [address] [place] [address] Creatinine [Mass/Vol] 0.49 mg/dL Low 0.60-1.20 [facility] Comment on above: Performed By: #### P ILLAR TSH, PILLAR CBC, PILLAR BMP, PILLAR LIPID #### [facility] [address] [place] [address] Globulin (S) [Mass/Vol] 2.3 g/dL [facility] Comment on above: Performed By: #### P ILLAR TSH, PILLAR CBC, PILLAR BMP, PILLAR LIPID #### [address] Glucose [Mass/Vol] 92 mg/dL 70-[address] [facility] Comment on above: Performed By: #### P ILLAR TSH, PILLAR CBC, PILLAR BMP, PILLAR LIPID #### [address] Potassium [Moles/Vol] 3.9 mmol/L 3.5-5.1 [facility] Comment on above: Performed By: #### P ILLAR TSH, PILLAR CBC, PILLAR BMP, PILLAR LIPID #### [address] Protein [Mass/Vol] 5.7 g/dL Low 6.4-8.[address] [facility] Comment on above: Performed By: #### P ILLAR TSH, PILLAR CBC, PILLAR BMP, PILLAR LIPID #### [facility] [address] [place] [address] Sodium [Moles/Vol] 136 mmol/L 136-[address] [facility] Comment on above: Performed By: #### P ILLAR TSH, PILLAR CBC, PILLAR BMP, PILLAR LIPID #### [address] Urea nitrogen [Mass/Vol] 12 mg/dL 7-25 [facility] Comment on above: Performed By: #### P ILLAR TSH, PILLAR CBC, PILLAR BMP, PILLAR LIPID #### [facility] [address] Employee Complete Blood Coun tOrdered By: Mario Perez on 04-02-2025 Basophils (Bld) [#/Vol] 0.0 10*3/uL 0.0-0.2 [facility] Comment on above: Result Comment: PERF ORMED BY: [facility] [address] [place] [address] PATHOLOGIST COMMUNICATION[employer] SENIOR ASSOCIATE JESS VARGAS M.D. Performed By: #### P ILLAR LIPID, PILLAR CBC, PILLAR CMP ####[place] [id number] [address] Basophils/100 WBC (Bld) 0.5 % . [facility] Comment on above: Performed By: #### P ILLAR LIPID, PILLAR CBC, PILLAR CMP ####[address] Eosinophils (Bld) [#/Vol] 0.2 10*3/uL 0.0-0.45 [facility] Comment on above: Performed By: #### P ILLAR LIPID, PILLAR CBC, PILLAR CMP ####[address] Eosinophils/100 WBC (Bld) 2.5 % . [facility] Comment on above: Performed By: #### P ILLAR LIPID, PILLAR CBC, PILLAR CMP ####[address] Erythrocyte distribution width (RBC) [Ratio] 13.4 % 11.9-15.3 [facility] Comment on above: Performed By: #### P ILLAR LIPID, PILLAR CBC, PILLAR CMP ####[address] Hematocrit (Bld) [Volume fraction] 34.4 % 34.0-46.4 [facility] Comment on above: Performed By: #### P ILLAR LIPID, PILLAR CBC, PILLAR CMP ####[place] [address] Hemoglobin (Bld) [Mass/Vol] 11.8 g/dL 11.8-15.4 [facility] Comment on above: Performed By: #### P ILLAR LIPID, PILLAR CBC, PILLAR CMP ####[address] Lymphocytes (Bld) [#/Vol] 1.6 10*3/uL 1.00-4.8 [facility] Comment on above: Performed By: #### P ILLAR LIPID, PILLAR CBC, PILLAR CMP ####[address] Lymphocytes/100 WBC (Bld) 21.6 % . [facility] Comment on above: Performed By: #### P ILLAR LIPID, PILLAR CBC, PILLAR CMP ####[address] MCH (RBC) [Entitic mass] 29.3 pg 24.7-34.3 [facility] Comment on above: Performed By: #### P ILLAR LIPID, PILLAR CBC, PILLAR CMP ####[address] MCV (RBC) [Entitic vol] 85.4 fL 80-100 [facility] Comment on above: Performed By: #### P ILLAR LIPID, PILLAR CBC, PILLAR CMP ####[address] Monocytes (Bld) [#/Vol] 0.6 10*3/uL 0.0-0.8 [facility] Comment on above: Performed By: #### P ILLAR LIPID, PILLAR CBC, PILLAR CMP ####[address] Monocytes/100 WBC (Bld) 7.9 % . [facility] Comment on above: Performed By: #### P ILLAR LIPID, PILLAR CBC, PILLAR CMP ####[address] Neutrophils (Bld) [#/Vol] 5.0 10*3/uL 1.8-7.7 [facility] Comment on above: Performed By: #### P ILLAR LIPID, PILLAR CBC, PILLAR CMP ####[address] [address] [facility] Neutrophils/100 WBC (Bld) 67.5 % . [facility] Comment on above: Performed By: #### P ILLAR LIPID, PILLAR CBC, PILLAR CMP ####[address] [address] [facility] Platelet mean volume (Bld) [Entitic vol] 9.5 fL 6.3-10.7 [facility] Comment on above: Performed By: #### P ILLAR LIPID, PILLAR CBC, PILLAR CMP ####[address] [address] [facility] Platelets (Bld) [#/Vol] 198 10*3/uL 150-450 [facility] Comment on above: Performed By: #### P ILLAR LIPID, PILLAR CBC, PILLAR CMP ####[address] [address] [facility] RBC (Bld) [#/Vol] 4.03 10*6/uL 3.60-5.00 [facility] Comment on above: Performed By: #### P ILLAR LIPID, PILLAR CBC, PILLAR CMP ####[address] [address] [facility] WBC (Bld) [#/Vol] 7.4 10*3/uL 3.8-11.[address] [facility] Comment on above: Performed By: #### P ILLAR LIPID, PILLAR CBC, PILLAR CMP ####[address] [address] [facility] Employee Complete Blood Coun ton 04-02-2025 Mean Corpuscular HGB Conc 34.3 g/dL Normal 32.0-35.0 [facility] Comment on above: Performed By: #### P ILLAR LIPID, PILLAR CBC, PILLAR CMP ####[address] [place] [address] [place] NRBC% 0.1 /100{WBC} Normal 0-0.5 [facility] Comment on above: Performed By: #### P ILLAR LIPID, PILLAR CBC, PILLAR CMP ####[id number] Employee Lipid ProfileOrdere d By: Mario Perez on 04-02-2025 Cholesterol [Mass/Vol] 222 mg/dL High 140-200 [facility] Comment on above: Result Comment: Chol less than 200 mg/dl low risk Chol 201-239 mg/dl borderline risk Chol 240 mg/dl and greater high risk Performed By: #### P ILLAR TSH, PILLAR CBC, PILLAR BMP, PILLAR LIPID #### [facility] [address] Chol less than 200 m g/dl low riskChol 201-239 mg/dl borderline riskChol 240 mg/dl and greater high risk Cholesterol in HDL [Mass/Vol] 76 mg/dL 23- [facility] Comment on above: Result Comment: HDL CHOL ATP-III CLASSIFICATION Cardiovascular Risk HDL > or equal to 60 mg/dL LOW HDL < 40 mg/dL HIGH Performed By: #### P ILLAR TSH, PILLAR CBC, PILLAR BMP, PILLAR LIPID #### [facility] [address] HDL CHOL ATP-III CLA SSIFICATION Cardiovascular RiskHDL > or equal to 60 mg/dL LOWHDL < 40 mg/dL HIGH Cholesterol.total/Chol esterol in HDL [Mass ratio] 2.9 {ratio} <5.0 [facility] Comment on above: Result Comment: PERF ORMED BY: [facility] [address] [place] [address] PATHOLOGIST COMMUNICATIONS SENIOR ASSOCIATE JESS VARGAS M.D. Performed By: #### P ILLAR TSH, PILLAR CBC, PILLAR BMP, PILLAR LIPID #### [facility] [address] Employee Lipid Profileon LDL Cholesterol,Calculated 120 mg/dL High 0-100 [facility] Comment on above: Result Comment: LDL ATP III CLASSIFICATION LDL less than 100 mg/dL Optimal LDL 100-129 mg/dL Near or above optimal LDL 130-159 mg/dL Borderline high LDL 160-189 mg/dL High LDL greater than 189 mg/dL Very high Performed By: #### P ILLAR TSH, PILLAR CBC, PILLAR BMP, PILLAR LIPID #### [facility] [address] Triglyceride w/Reflex 131 mg/dL Normal 0-149 [facility] Comment on above: Result Comment: TRIG ATP III CLASSIFICATION TRIG less than 150 mg/dL Normal TRIG 150-199 mg/dL Borderline high TRIG 200-500 mg/dL High TRIG greater than 500 mg/dL Very high Standard traceable to the Center for Disease Conrtrol and Prevention (CDC) test method. Performed By: #### P ILLAR TSH, PILLAR CBC, PILLAR BMP, PILLAR LIPID #### [facility] [address] VLDL CHOLESTEROL 26 mg/dL Normal [facility] Comment on above: Performed By: #### P ILLAR TSH, PILLAR CBC, PILLAR BMP, PILLAR LIPID #### [facility] [address] Leukocytes [#/volume] correc randolph for nucleated erythrocytes in Blood by Automated counOrdered By: Mario Perez on 04-02-2025 WBC corrected for nucl RBC Auto (Bld) [#/Vol] 7.4 10*3/uL 3.8-11.6 [facility] MCHC Auto (RBC) [Mass/Vol]Or dered By: Mario Perez on 04-02-2025 MCHC (RBC) [Mass/Vol] 34.3 g/dL 32.0-35.0 [facility] No Panel InformationOrdered By: Mario Perez on 04-02-2025 Estimated GFR (CKD-EPI) > 60.0 mL/Min [facility] Creatinine Clearance (Chem N/A [facility] Nucleated erythrocytes [Pres ence] in Blood by Automated countOrdered By: Mario Perez on 04-02-2025 Nucleated RBC Auto Ql (Bld) 0.1 /100{WBC} 0-0.5 [facility] Triglyceride [Mass/volume] i n Serum or PlasmaOrdered By: Mario Perez on 04-02-2025 Triglyceride [Mass/Vol] 131 mg/dL 0-149 [facility] Comment on above: TRIG ATP III [...] II, MD, PHD at 16-Mar-2025 11:50:11 AM [facility] Normal Not Available Comment on above: Order Comment: US OB ANATOMY SINGLE W US OB CERVICAL LENGTH Estimated Date of Delivery: 07/28/25 Gestational Age as of 02/15/2025: 16w5d Urinalysis macro (dipstick) panel (U)on 03-15-2025 Bilirubin, UA Negative Negative - 4(70) +++ mg/dL [facility] Blood, UA Negative Negative - 50 Tavon/mcL [facility] Clarity, UA Clear [facility] Color, UA Yellow [facility] Glucose, UA Negative Negative - 2000(110) ++++ mg/dL [facility] Interpretation and review of laboratory results Normal [facility] Ketones, UA Negative Negative - 160(16) ++++ mg/dL [facility] Leukocytes, UA Negative Negative - 500+++ Bertha/mcL [facility] Nitrite, UA Negative Negative - Positive [facility] pH, UA 7 5 - 9 [facility] Protein, UA Negative Negative - 2000(20) ++++ mg/dL [facility] Spec Grav, UA 1.015 1 - 1.03 [facility] Urobilinogen, UA 0.2 0.2 - 12 mg/dL [facility] Basophils Auto (Bld) [#/Vol] Ordered By: Yasmani Abdullahi on 03-14-2025 Basophils (Bld) [#/Vol] Automated basophil count 0.0-0.2 [facility] Basophils/100 WBC Auto (Bld) Ordered By: Yasmani Abdullahi on 03-14-2025 Basophils/100 WBC (Bld) Automated basophil % . [facility] CBC W Auto Differential pane l (Bld)on 03-14-2025 Basophils (Bld) [#/Vol] 0 10*3/uL 0.0 - 0.2 10*3/uL [facility] Basophils/100 WBC Manual cnt (Syn fld) 0.3 % . [facility] Eosinophils (Bld) [#/Vol] 0.1 10*3/uL 0.0 - 0.45 10*3/uL [facility] Eosinophils/100 WBC Manual cnt (Syn fld) 1 % . [facility] Erythrocyte distribution width (RBC) [Ratio] 13.5 % 11.9 - 15.3 % [facility] Hematocrit (Bld) [Volume fraction] 35.8 % 34.0 - 46.4 % [facility] Hemoglobin (Bld) [Mass/Vol] 12.6 g/dL 11.8 - 15.4 g/dL [facility] Interpretation and review of laboratory results Abnormal [facility] Lymphocytes (Bld) [#/Vol] 1.8 10*3/uL 1.00 - 4.8 10*3/uL [facility] Lymphocytes/100 WBC Manual cnt (Syn fld) 19.9 % . [facility] MCH (RBC) [Entitic mass] 29.2 pg 24.7 - 34.3 pg [facility] MCHC (RBC) [Mass/Vol] 35.1 g/dL High 32.0 - 35.0 g/dL [facility] MCV (RBC) [Entitic vol] 83.3 fL 80 - 100 fL [facility] Monocytes (Bld) [#/Vol] 0.7 10*3/uL 0.0 - 0.8 10*3/uL [facility] Monocytes+Macrophages/ 100 WBC Manual cnt (Syn fld) 8.2 % . [facility] Neutrophils (Bld) [#/Vol] 6.4 10*3/uL 1.8 - 7.7 10*3/uL [facility] Neutrophils/100 WBC Manual cnt (Syn fld) 70.6 % . [facility] NRBC 0.1 /100{WBC} 0 - 0.5 /100{WBC} [facility] Platelet mean volume (Bld) [Entitic vol] 9 fL 6.3 - 10.7 fL [facility] Platelets (Bld) [#/Vol] 235 10*3/uL 150 - 450 10*3/uL [facility] RBC LM.HPF (Urine sed) [#/Area] 4.3 10*6/uL 3.60 - 5.00 10*6/uL [facility] WBC (Bld) [#/Vol] 9.1 10*3/uL 3.8 - 11.6 10*3/uL [facility] WBC LM.HPF (Urine sed) [#/Area] 9.1 10*3/uL 3.8 - 11.6 10*3/uL [facility] Complete Blood Count Auto Di ffOrdered By: Yasmani Abdullahi on 03-14-2025 Basophils (Bld) [#/Vol] 0.0 10*3/uL 0.0-0.2 [facility] Comment on above: Result Comment: PERF ORMED BY: [facility] [address] [place] [address] PATHOLOGIST COMMUNICATIONS SENIOR ASSOCIATE JESS VARGAS M.D. Performed By: #### C BC ####[address] Basophils/100 WBC (Bld) 0.3 % . [facility] Comment on above: Performed By: #### C BC ####[address] Eosinophils (Bld) [#/Vol] 0.1 10*3/uL 0.0-0.45 [facility] Comment on above: Performed By: #### C BC ####[address] Eosinophils/100 WBC (Bld) 1.0 % . [facility] Comment on above: Performed By: #### C BC ####[address] Erythrocyte distribution width (RBC) [Ratio] 13.5 % 11.9-15.3 [facility] Comment on above: Performed By: #### C BC ####[address] Hematocrit (Bld) [Volume fraction] 35.8 % 34.0-46.4 [facility] Comment on above: Performed By: #### C BC ####[address] Hemoglobin (Bld) [Mass/Vol] 12.6 g/dL 11.8-15.4 [facility] Comment on above: Performed By: #### C BC ####[place] [id number] [facility] Lymphocytes (Bld) [#/Vol] 1.8 10*3/uL 1.00-4.8 [facility] Comment on above: Performed By: #### C BC ####[place] [id number] [facility] Lymphocytes/100 WBC (Bld) 19.9 % . [facility] Comment on above: Performed By: #### C BC ####[place] [id number] [facility] MCH (RBC) [Entitic mass] 29.2 pg 24.7-34.3 [facility] Comment on above: Performed By: #### C BC ####[place] [id number] [facility] MCV (RBC) [Entitic vol] 83.3 fL 80-100 [facility] Comment on above: Performed By: #### C BC ####[place] [id number] [facility] Monocytes (Bld) [#/Vol] 0.7 10*3/uL 0.0-0.8 [facility] Comment on above: Performed By: #### C BC ####[place] [id number] [facility] Monocytes/100 WBC (Bld) 8.2 % . [facility] Comment on above: Performed By: #### C BC ####[place] [id number] [facility] Neutrophils (Bld) [#/Vol] 6.4 10*3/uL 1.8-7.7 [facility] Comment on above: Performed By: #### C BC ####[place] [id number] [facility] Neutrophils/100 WBC (Bld) 70.6 % . [facility] Comment on above: Performed By: #### C BC ####[address] Platelet mean volume (Bld) [Entitic vol] 9.0 fL 6.3-10.7 [facility] Comment on above: Performed By: #### C BC ####[address] Platelets (Bld) [#/Vol] 235 10*3/uL 150-450 [facility] Comment on above: Performed By: #### C BC ####[address] RBC (Bld) [#/Vol] 4.30 10*6/uL 3.60-5.00 [facility] Comment on above: Performed By: #### C BC ####[address] WBC (Bld) [#/Vol] 9.1 10*3/uL 3.8-11.[address] [facility] Comment on above: Performed By: #### C BC ####[address] Complete Blood Count Auto Di ffon 03-14-2025 Mean Corpuscular HGB Conc 35.1 g/dL High 32.0-35.0 [facility] Comment on above: Performed By: #### C BC ####[address] NRBC% 0.1 /100{WBC} Normal 0-0.5 [facility] Comment on above: Performed By: #### C BC ####[address] Eosinophils Auto (Bld) [#/Vo l]Ordered By: Yasmani Abdullahi on 03-14-2025 Eosinophils (Bld) [#/Vol] Automated eosinophil count 0.0-0.45 [facility] Eosinophils/100 WBC Auto (Bl d)Ordered By: Yasmani Abdullahi on 03-14-2025 Eosinophils/100 WBC (Bld) Automated eosinophil % . [facility] Erythrocyte distribution wid th Auto (RBC) [Ratio]Ordered By: Yasmani Abdullahi on 03-14-2025 Erythrocyte distribution width (RBC) [Ratio] Erythrocyte distribution width [Ratio] by Automated count 11.9-15.3 [facility] Hematocrit Auto (Bld) [Volum e fraction]Ordered By: Yasmani Abdullahi on 03-14-2025 Hematocrit (Bld) [Volume fraction] Hematocrit [Volume Fraction] of Blood by Automated count 34.0-46.4 [facility] Hemoglobin [Mass/volume] in BloodOrdered By: Yasmani Abdullahi on 03-14-2025 Hemoglobin (Bld) [Mass/Vol] Hemoglobin [Mass/volume] in Blood 11.8-15.4 [facility] Leukocytes [#/volume] correc randolph for nucleated erythrocytes in Blood by Automated counOrdered By: Yasmani Abdullahi on 03-14-2025 WBC corrected for nucl RBC Auto (Bld) [#/Vol] Leukocytes [#/volume] corrected for nucleated erythrocytes in Blood by Automated coun 3.8-11.6 [facility] WBC corrected for nucl RBC Auto (Bld) [#/Vol] 9.1 10*3/uL 3.8-11.6 [facility] Lymphocytes Auto (Bld) [#/Vo l]Ordered By: Yasmani Abdullahi on 03-14-2025 Lymphocytes (Bld) [#/Vol] Lymphocytes [#/volume] in Blood by Automated count 1.00-4.8 [facility] Lymphocytes/100 WBC Auto (Bl d)Ordered By: Yasmani Abdullahi on 03-14-2025 Lymphocytes/100 WBC (Bld) Lymphocytes/100 leukocytes in Blood by Automated count . [facility] MCH Auto (RBC) [Entitic mass ]Ordered By: Yasmani Abdullahi on 03-14-2025 MCH (RBC) [Entitic mass] MCH [Entitic mass] by Automated count 24.7-34.3 [facility] MCHC Auto (RBC) [Mass/Vol]Or dered By: Yasmani Abdullahi on 03-14-2025 MCHC (RBC) [Mass/Vol] MCHC [Mass/volume] by Automated count High 32.0-35.0 [facility] MCHC (RBC) [Mass/Vol] 35.1 g/dL High 32.0-35.0 [facility] MCV Auto (RBC) [Entitic vol] Ordered By: Yasmani Abdullahi on 03-14-2025 MCV (RBC) [Entitic vol] MCV [Entitic volume] by Automated count 80-100 [facility] Monocytes Auto (Bld) [#/Vol] Ordered By: Yasmani Abdullahi on 03-14-2025 Monocytes (Bld) [#/Vol] Automated blood monocyte count 0.0-0.8 [facility] Monocytes/100 WBC Auto (Bld) Ordered By: Yasmani Abdullahi on 03-14-2025 Monocytes/100 WBC (Bld) Automated monocyte % . [facility] Neutrophils Auto (Bld) [#/Vo l]Ordered By: Yasmani Abdullahi on 03-14-2025 Neutrophils (Bld) [#/Vol] Neutrophils [#/volume] in Blood by Automated count 1.8-7.7 [facility] Neutrophils/100 WBC Auto (Bl d)Ordered By: Yasmani Abdullahi on 03-14-2025 Neutrophils/100 WBC (Bld) Automated neutrophil % . [facility] Nucleated erythrocytes [Pres ence] in Blood by Automated countOrdered By: Yasmani Abdullahi on 03-14-2025 Nucleated RBC Auto Ql (Bld) Nucleated erythrocytes [Presence] in Blood by Automated count 0-0.5 [facility] Nucleated RBC Auto Ql (Bld) 0.1 /100{WBC} 0-0.5 [facility] Platelet mean volume Auto (B ld) [Entitic vol]Ordered By: Yasmani Abdullahi on 03-14-2025 Platelet mean volume (Bld) [Entitic vol] Platelet mean volume [Entitic volume] in Blood by Automated count 6.3-10.7 [facility] Platelets Auto (Bld) [#/Vol] Ordered By: Yasmani Abdullahi on 03-14-2025 Platelets (Bld) [#/Vol] Platelets [#/volume] in Blood by Automated count 150-450 [facility] RBC Auto (Bld) [#/Vol]Ordere d By: Yasmani Abdullahi on 03-14-2025 RBC (Bld) [#/Vol] Erythrocytes [#/volu me] in Blood by Automated count 3.60-5.00 [facility] WBC Auto (Bld) [#/Vol]Estefanie d By: Yasmani Abdullahi on 03-14-2025 WBC (Bld) [#/Vol] Leukocytes [#/volume ] in Blood by Automated count 3.8-11.6 [facility] IGP,APTIMA HPV,AGE GDLNon AGE GDLN ACOG TESTING Note . [facility] Comment on above: TESTS RESULT FLAG UN ITS REF RANGE LAB Clinician Provided Cytology Information Source.............[employer] Other.............. No. of containers..01 ThinPrep Vial Age Algo ACOG Gemma... 30-65 01 FLAG LEGEND: L-Low Normal,H-High Normal,LL-Alert Low,HH-Alert High <-Panic Low,>-Panic High,A-Abnormal,AA-Critical Abnormal Performed at: 01 =[address] [facility] [place] [address] Azalea Quezada MD, HPV APTIMA Negative Negative [facility] Comment on above: This nucleic acid am plification test detects fourteen high- risk HPV types (16,18,31,33,35,39,45,51,52,56,58,59,66,68) without differentiation. Performed at: =G - [facility], [place] [id number] Securities Adviser: Azalea Quezada MD, Phone: [phone] Performed at: - [facility] [address], [place] [id number] Securities Adviser: Azalea Quezada MD, Phone: [phone] IGP, APTIMA HPV, RFX 16/18,45 Note . [facility] Comment on above: TESTS RESULT FLAG UN ITS REF RANGE LAB DIAGNOSIS: 02 NEGATIVE FOR INTRAEPITHELIAL LESION OR MALIGNANCY. Specimen adequacy: 02 Satisfactory for evaluation. No endocervical component is identified. An endocervical component is not commonly seen in the patient. Performed by: Darrell Martin, Building Wrecker (ASCP) . 02 Note: Note 02 The [...] <-Panic Low,>-Panic High,A-Abnormal,AA-Critical Abnormal Performed at: [address] [place] [address] Azalea Quezada MD, SPATULA-ALONE ENDOCERVIX CLINISYNC [facility] RECURRENT VAGINITIS (HTRX)on 02-16-2025 ATOPOBIUM VAGINAE 0 [facility] ATOPOBIUM VAGINAE Not detected [facility] BVAB 2,3 (BACTERIAL VAGINOSIS ASSOCIATED BACTERIA 2, 3); MOBILUNCUS SPP 0 [facility] BVAB 2,3 (BACTERIAL VAGINOSIS ASSOCIATED [...] 2+56+58+59+66+68 DNA [Presence] in Cer [facility] Comment on above: This nucleic acid am plification test detects fourteen high- risk HPV types (16,18,31,33,35,39,45,51,52,56,58,59,66,68)without differentiation.Performed at: =G - [facility] [address] [place], [place] [id number] Director: Azalea Quezada MD, Phone: [phone] at: WB - [facility] [address] [place], [place] [id number] Director: Azalea Quezada MD, Phone: [phone] No Panel Informationon 02-15 HPV High Risk Other Comment Note . [facility] Comment on above: TESTS RESULT FLAG UN ITS REF RANGE LAB DIAGNOSIS: 02 NEGATIVE FOR INTRAEPITHELIAL LESION OR MALIGNANCY.Specimen adequacy: 02 Satisfactory for evaluation. No endocervical component is identified. An endocervical component is not commonly seen in the patient.Performed by: 02 Oli Martin, Building Wrecker (ASCP). 02Note: Note 02 The Pap smear [...] Low,>-Panic High,A-Abnormal,AA-Critical Abnormal -----Performed at:02 WB [facility] [address] [facility] [place] [address] Azalea Quezada MD, Reference Lab Test Patient Age Note . [facility] Comment on above: TESTS RESULT FLAG UN ITS REF RANGE LAB Clinician Provided Cytology Information Source.............[employer] Other.............. No. of containers..01 ThinPrep VialAge Belindao ANA Gemma... FLAG LEGEND: L-Low Normal,H-High Normal,LL-Alert Low,HH-Alert High <-Panic Low,>-Panic High,A-Abnormal,AA-Critical Abnormal -----Performed at:01 =G [facility] [address] [facility] [place] [address] Azalea Quezada MD, Urinalysis macro (dipstick) panel (U)on 02-15-2025 Bilirubin, UA Negative Negative - 4(70) +++ mg/dL [facility] Blood, UA Negative Negative - 50 Tavon/mcL [facility] Clarity, UA Clear [facility] Color, UA Yellow [facility] Glucose, UA Positive Negative - 2000(110) ++++ mg/dL [facility] Comment on above: 100 Interpretation and review of laboratory results Abnormal [facility] Ketones, UA Negative Negative - 160(16) ++++ mg/dL [facility] Leukocytes, UA Negative Negative - 500+++ Bertha/mcL [facility] Nitrite, UA Negative Negative - Positive [facility] pH, UA 5.5 5 - 9 [facility] Protein, UA Negative Negative - 2000(20) ++++ mg/dL [facility] Spec Grav, UA 1.005 1 - 1.03 [facility] Urobilinogen, UA 0.2 0.2 - 12 mg/dL [facility] Urinalysis macro (dipstick) panel (U)on 01-18-2025 Bilirubin, UA Negative Negative - 4(70) +++ mg/dL [facility] Blood, UA Negative Negative - 50 Tavon/mcL [facility] Clarity, UA Clear [facility] Color, UA Yellow [facility] Glucose, UA Negative Negative - 1999(110) ++++ mg/dL [facility] Interpretation and review of laboratory results Abnormal [facility] Ketones, UA Negative Negative - 160(16) ++++ mg/dL [facility] Leukocytes, UA Negative Negative - 500+++ Bertha/mcL [facility] Nitrite, UA Negative Negative - Positive [facility] pH, UA 6 5 - 9 [facility] Protein, UA Negative Negative - 1999(20) ++++ mg/dL [facility] Spec Grav, UA 1.03 1 - 1.03 [facility] Urobilinogen, UA 0.2 0.2 - 12 mg/dL [facility] A1C with Estimated Average G alex 12-27-2024 Glucose [Mass/Vol] 103 mg/dL Normal [facility] Comment on above: Order Comment: NONFA STING.JKW Result Comment: PERF ORMED BY: [facility] [address] [place] [address] PATHOLOGIST COMMUNICATIONS SENIOR ASSOCIATE LEÓN GARCIA M.D. Performed By: #### H CV RX PCR, RPR W RFX, RUBELLA IGG, HBSAG, HIV SCREEN ####[facility] ,#### CUU, A1C WT eA, CBC, URDS ####[facility] [id number] [place] [address] [facility] HbA1c (Bld) [Mass fraction] 5.2 % Normal 4.3-5.6 [facility] Comment on above: Order Comment: NONFA STING.JKW Result Comment: Incr eased risk for diabetes: 5.7 - 6.4 diabetes: >6.4 glycemic control for adults with diabetes: <7.0 Performed By: #### H CV RX PCR, RPR W RFX, RUBELLA IGG, HBSAG, HIV SCREEN ####[facility] ,#### CUU, A1C WTH eA, CBC, URDS ####[facility] [id number] [place] [address] [facility] Amphetamine Screen Ql (U)Ord ered By: Yasmani Abdullahi on 12-27-2024 Amphetamines Ql (U) Amphetamines screen Negativ e [facility] Barbiturates [Presence] in U rine by Screen methodOrdered By: Yasmani Abdullahi on 12-27-2024 Barbiturates Screen Ql (U) Barbiturates [Presence] in Urine by Screen method Negative [facility] Basophils Auto (Bld) [#/Vol] Ordered By: Yasmani Abdullahi on 12-27-2024 Basophils (Bld) [#/Vol] Automated basophil count 0.0-0.2 [facility] Basophils/100 WBC Auto (Bld) Ordered By: Yasmani Abdullahi on 12-27-2024 Basophils/100 WBC (Bld) Automated basophil % . [facility] Benzodiazepines Screen Ql (U )Ordered By: Yasmani Abdullahi on 12-27-2024 Benzodiazepines Ql (U) Benzodiazepines [Presence] in Urine by Screen method Negative [facility] Benzoylecgonine [Presence] i n Urine by Screen methodOrdered By: Yasmani Abdullahi on 12-27-2024 Benzoylecgonine Screen Ql (U) Benzoylecgonine [Presence] in Urine by Screen method Negative [facility] Blood estimated average gluc ose determination by estimation from glycated hemoglobinOrdered By: Yasmani Abdullahi on 12-27-2024 Average glucose Estimated from glycated hemoglobin (Bld) [Mass/Vol] Glucose mean value [Mass/volume] in Blood Estimated from glycated hemoglobin [facility] Cannabinoids [Presence] in U rine by Screen methodOrdered By: Yasmani Abdullahi on 12-27-2024 Cannabinoids Screen Ql (U) Cannabinoids [Presence] in Urine by Screen method Negative [facility] Comment on above: These are unconfirme d results and should not be used for legal purposes. Drug Cut-Off Concentration: AMPH 1000 ng/mL ABELARDO 200 ng/mL JESSE 200 ng/mL COCM 300 ng/mL OP 300 ng/mL PCP 25 ng/mL THC 20 ng/mL Complete Blood Count Auto Di ffon 12-27-2024 Basophils (Bld) [#/Vol] 0.0 10*3/uL Normal 0.0-0.2 [facility] Comment on above: Order Comment: NONFA STING.JKW Result Comment: PERF ORMED BY: [place] [address] PATHOLOGIST COMMUNICATIONS SENIOR ASSOCIATE LEÓN GARCIA M.D. Performed By: #### H CV RX PCR, RPR W RFX, RUBELLA IGG, HBSAG, HIV SCREEN #### [facility] , #### CUU, A1C WTH eA, CBC, URDS #### [facility] [address] [place] [address] Basophils/100 WBC (Bld) 0.6 % Normal . [facility] Comment on above: Order Comment: NONFA STING.JKW Performed By: #### H CV RX PCR, RPR W RFX, RUBELLA IGG, HBSAG, HIV SCREEN #### [facility] , #### CUU, A1C WTH eA, CBC, URDS #### [facility] [address] [place] [address] [place] Eosinophils (Bld) [#/Vol] 0.1 10*3/uL Normal 0.0-0.45 [facility] Comment on above: Order Comment: NONFA STING.JKW Performed By: #### H CV RX PCR, RPR W RFX, RUBELLA IGG, HBSAG, HIV SCREEN #### [facility] , #### CUU, A1C WTH eA, CBC, URDS #### [address] Eosinophils/100 WBC (Bld) 1.7 % Normal . [facility] Comment on above: Order Comment: NONFA STING.JKW Performed By: #### H CV RX PCR, RPR W RFX, RUBELLA IGG, HBSAG, HIV SCREEN #### [facility] , #### CUU, A1C WTH eA, CBC, URDS #### [address] Erythrocyte distribution width (RBC) [Ratio] 13.7 % Normal 11.9-15.3 [facility] Comment on above: Order Comment: NONFA STING.JKW Performed By: #### H CV RX PCR, RPR W RFX, RUBELLA IGG, HBSAG, HIV SCREEN #### [facility] , #### CUU, A1C WTH eA, CBC, URDS #### [address] Hematocrit (Bld) [Volume fraction] 38.2 % Normal 34.0-46.4 [facility] Comment on above: Order Comment: NONFA STING.JKW Performed By: #### H CV RX PCR, RPR W RFX, RUBELLA IGG, HBSAG, HIV SCREEN #### [facility] , #### CUU, A1C WTH eA, CBC, URDS #### [address] Hemoglobin (Bld) [Mass/Vol] 13.0 g/dL Normal 11.8-15.4 [facility] Comment on above: Order Comment: NONFA STING.JKW Performed By: #### H CV RX PCR, RPR W RFX, RUBELLA IGG, HBSAG, HIV SCREEN #### [facility] , #### CUU, A1C WTH eA, CBC, URDS #### [address] Lymphocytes (Bld) [#/Vol] 1.2 10*3/uL Normal 1.00-4.8 [facility] Comment on above: Order Comment: NONFA STING.JKW Performed By: #### H CV RX PCR, RPR W RFX, RUBELLA IGG, HBSAG, HIV SCREEN #### [facility] , #### CUU, A1C WTH eA, CBC, URDS #### [address] Lymphocytes/100 WBC (Bld) 19.5 % Normal . [facility] Comment on above: Order Comment: NONFA STING.JKW Performed By: #### H CV RX PCR, RPR W RFX, RUBELLA IGG, HBSAG, HIV SCREEN #### [facility] , #### CUU, A1C WTH eA, CBC, URDS #### [address] MCH (RBC) [Entitic mass] 27.8 pg Normal 24.7-34.3 [facility] Comment on above: Order Comment: NONFA STING.JKW Performed By: #### H CV RX PCR, RPR W RFX, RUBELLA IGG, HBSAG, HIV SCREEN #### [facility] , #### CUU, A1C WTH eA, CBC, URDS #### [address] MCV (RBC) [Entitic vol] 81.5 fL Normal 80-100 [facility] Comment on above: Order Comment: NONFA STING.JKW Performed By: #### H CV RX PCR, RPR W RFX, RUBELLA IGG, HBSAG, HIV SCREEN #### [facility] , #### CUU, A1C WTH eA, CBC, URDS #### [address] Mean Corpuscular HGB Conc 34.1 g/dL Normal 32.0-35.0 [facility] Comment on above: Order Comment: NONFA STING.JKW Performed By: #### H CV RX PCR, RPR W RFX, RUBELLA IGG, HBSAG, HIV SCREEN #### [facility] , #### CUU, A1C WTH eA, CBC, URDS #### [place] [address] [place] Monocytes (Bld) [#/Vol] 0.4 10*3/uL Normal 0.0-0.8 [facility] Comment on above: Order Comment: NONFA STING.JKW Performed By: #### H CV RX PCR, RPR W RFX, RUBELLA IGG, HBSAG, HIV SCREEN #### [facility] , #### CUU, A1C WTH eA, CBC, URDS #### [place] [address] [place] Monocytes/100 WBC (Bld) 6.7 % Normal . [facility] Comment on above: Order Comment: NONFA STING.JKW Performed By: #### H CV RX PCR, RPR W RFX, RUBELLA IGG, HBSAG, HIV SCREEN #### [facility] , #### CUU, A1C WTH eA, CBC, URDS #### [place] [address] [place] Neutrophils (Bld) [#/Vol] 4.5 10*3/uL Normal 1.8-7.7 [facility] Comment on above: Order Comment: NONFA STING.JKW Performed By: #### H CV RX PCR, RPR W RFX, RUBELLA IGG, HBSAG, HIV SCREEN #### [facility] , #### CUU, A1C WTH eA, CBC, URDS #### [place] [address] [place] Neutrophils/100 WBC (Bld) 71.5 % Normal . [facility] Comment on above: Order Comment: NONFA STING.JKW Performed By: #### H CV RX PCR, RPR W RFX, RUBELLA IGG, HBSAG, HIV SCREEN #### [facility] , #### CUU, A1C WTH eA, CBC, URDS #### [facility] [address] NRBC% 0.0 /100{WBC} Normal 0-0.5 [facility] Comment on above: Order Comment: NONFA STING.JKW Performed By: #### H CV RX PCR, RPR W RFX, RUBELLA IGG, HBSAG, HIV SCREEN #### [facility] , #### CUU, A1C WTH eA, CBC, URDS #### [address] Platelet mean volume (Bld) [Entitic vol] 8.8 fL Normal 6.3-10.7 [facility] Comment on above: Order Comment: NONFA STING.JKW Performed By: #### H CV RX PCR, RPR W RFX, RUBELLA IGG, HBSAG, HIV SCREEN #### [facility] , #### CUU, A1C WTH eA, CBC, URDS #### [address] Platelets (Bld) [#/Vol] 225 10*3/uL Normal 150-450 [facility] Comment on above: Order Comment: NONFA STING.JKW Performed By: #### H CV RX PCR, RPR W RFX, RUBELLA IGG, HBSAG, HIV SCREEN #### [facility] , #### CUU, A1C WTH eA, CBC, URDS #### [facility] [address] RBC (Bld) [#/Vol] 4.69 10*6/uL Normal 3.60-5.00 [facility] Comment on above: Order Comment: NONFA STING.JKW Performed By: #### H CV RX PCR, RPR W RFX, RUBELLA IGG, HBSAG, HIV SCREEN #### [facility] , #### CUU, A1C WTH eA, CBC, URDS #### [facility] [address] WBC (Bld) [#/Vol] 6.4 10*3/uL Normal 3.8-11.6 [facility] Comment on above: Order Comment: NONFA STING.JKW Performed By: #### H CV RX PCR, RPR W RFX, RUBELLA IGG, HBSAG, HIV SCREEN #### [facility] , #### CUU, A1C WTH eA, CBC, URDS #### [facility] [address] Drug Screen,Urineon 12-28-19 25 Amphetamine Screen,Urine Negative Normal Negative [facility] Comment on above: Order Comment: NONFA STING.JKW Performed By: #### H CV RX PCR, RPR W RFX, RUBELLA IGG, HBSAG, HIV SCREEN ####[facility] ,#### CUU, A1C WTH eA, CBC, URDS ####[facility] Barbiturate Screen,Urine Negative Normal Negative [facility] Comment on above: Order Comment: NONFA STING.JKW Performed By: #### H CV RX PCR, RPR W RFX, RUBELLA IGG, HBSAG, HIV SCREEN ####[facility] ,#### CUU, A1C WTH eA, CBC, URDS ####[facility] Benzodiazepines Screen,Urine Negative Normal Negative [facility] Comment on above: Order Comment: NONFA STING.JKW Performed By: #### H CV RX PCR, RPR W RFX, RUBELLA IGG, HBSAG, HIV SCREEN ####[facility] ,#### CUU, A1C WTH eA, CBC, URDS ####[facility] Cannabinoid Screen,Urine Negative Normal Negative [facility] Comment on above: Order Comment: NONFA STING.JKW Result Comment: Thes e are unconfirmed results and should not be used for legal purposes. Drug Cut-Off Concentration: AMPH 1000 ng/mL ABELARDO 200 ng/mL JESSE 200 ng/mL COCM 300 ng/mL OP 300 ng/mL PCP 25 ng/mL THC 20 ng/mL PERFORMED BY: [facility] [address] [place] [address] PATHOLOGIST COMMUNICATIONS SENIOR ASSOCIATE LEÓN GARCIA M.D. Performed By: #### H CV RX PCR, RPR W RFX, RUBELLA IGG, HBSAG, HIV SCREEN ####[facility] ,#### CUU, A1C WTH eA, CBC, URDS ####[address] Cocaine Screen,Urine Negative Normal Negative [facility] Comment on above: Order Comment: NONFA STING.JKW Performed By: #### H CV RX PCR, RPR W RFX, RUBELLA IGG, HBSAG, HIV SCREEN ####[facility] ,#### CUU, A1C WTH eA, CBC, URDS ####[address] Opiate Screen,Urine Negative Normal Negative [facility] Comment on above: Order Comment: NONFA STING.JKW Performed By: #### H CV RX PCR, RPR W RFX, RUBELLA IGG, HBSAG, HIV SCREEN ####[facility] ,#### CUU, A1C WTH eA, CBC, URDS ####[address] Phencyclidine Screen,Urine Negative Normal Negative [facility] Comment on above: Order Comment: NONFA STING.JKW Performed By: #### H CV RX PCR, RPR W RFX, RUBELLA IGG, HBSAG, HIV SCREEN ####[facility] ,#### CUU, A1C WTH eA, CBC, URDS ####[address] Eosinophils Auto (Bld) [#/Vo l]Ordered By: Yasmani Abdullahi on 12-27-2024 Eosinophils (Bld) [#/Vol] Automated eosinophil count 0.0-0.45 [facility] Eosinophils/100 WBC Auto (Bl d)Ordered By: Yasmani Abdullahi on 12-27-2024 Eosinophils/100 WBC (Bld) Automated eosinophil % . [facility] Erythrocyte distribution wid th Auto (RBC) [Ratio]Ordered By: Yasmani Abdullahi on 12-27-2024 Erythrocyte distribution width (RBC) [Ratio] Erythrocyte distribution width [Ratio] by Automated count 11.9-15.3 [facility] HIV 1/O/2 Antigen/Antibodyon 12-27-2024 HIV Screen 4th Generation Non-Reactive Normal Non Reactive [facility] Comment on above: Order Comment: NONFA STING.JKW Result Comment: HIV- 1/HIV-2 antibodies and HIV-1 p24 antigen were NOT detected. There is no laboratory evidence of HIV infection. HIV Negative Performed at: [facility] [address] [id number] Securities Adviser: Garfield Fay PhD, Phone: [phone] Performed By: #### H CV RX PCR, RPR W RFX, RUBELLA IGG, HBSAG, HIV SCREEN ####[facility] ,#### CUU, A1C WTH eA, CBC, URDS ####[facility] [id number] HIV antibody and antigen nails elOrdered By: Yasmani Abdullahi on 12-27-2024 HIV 1+2 Ab+HIV1 p24 Ag IA Ql HIV 1 and HIV-2 antibody assay with HIV-1 p24 antigen detection Non Reactive [facility] Comment on above: HIV-1/HIV-2 antibodi es and HIV-1 p24 antigen were NOTdetected. There is no laboratory evidence of HIV infection.HIV NegativePerformed at: [facility] [id number] Director: Garfield Fay PhD, Phone: [phone] Hematocrit Auto (Bld) [Volum e fraction]Ordered By: Yasmani Abdullahi on 12-27-2024 Hematocrit (Bld) [Volume fraction] Hematocrit [Volume Fraction] of Blood by Automated count 34.0-46.4 [facility] Hemoglobin A1c/Hemoglobin.to dylan in BloodOrdered By: Yasmani Abdullahi on 12-27-2024 HbA1c (Bld) [Mass fraction] Hemoglobin A1c percentage 4.3-5.[address] [facility] Comment on above: Increased risk for d iabetes: 5.7 - 6.4diabetes: >6.4glycemic control for adults with diabetes: <7.0 Hemoglobin [Mass/volume] in BloodOrdered By: Yasmani Abdullahi on 12-27-2024 Hemoglobin (Bld) [Mass/Vol] Hemoglobin [Mass/volume] in Blood 11.8-15.4 [facility] Hep C Ab wRfx to Qnt PCRon 0 12-27-2024 Hepatitis C Virus Antibody Non-Reactive Normal Non Reactive [facility] Comment on above: Order Comment: NONFA STING.JKW Performed By: #### H CV RX PCR, RPR W RFX, RUBELLA IGG, HBSAG, HIV SCREEN ####[facility] ,#### CUU, A1C WTH eA, CBC, URDS ####[facility] [id number] Interpretation Hepatitis C Comment Normal . [facility] Comment on above: Order Comment: NONFA STING.JKW Result Comment: Not infected with HCV unless early or acute infection is suspected (which may be delayed in an immunocompromised individual), or other evidence exists to indicate HCV infection. Performed By: #### H CV RX PCR, RPR W RFX, RUBELLA IGG, HBSAG, HIV SCREEN ####[facility] ,#### CUU, A1C WTH eA, CBC, URDS ####[facility] [id number] Hepatitis B Surface Antigeno n 12-27-2024 HBsAg Screen Negative Normal Negative [facility] Comment on above: Order Comment: NONFA STING.JKW Result Comment: Perf ormed at: - [facility] [address] [id number] Securities Adviser: Garfield Fay PhD, Phone: [phone] PERFORMED BY: [facility] [address] [place] [address] PATHOLOGIST COMMUNICATIONS SENIOR ASSOCIATE LEÓN GARCIA M.D. Performed By: #### H CV RX PCR, RPR W RFX, RUBELLA IGG, HBSAG, HIV SCREEN ####[facility] ,#### CUU, A1C WTH eA, CBC, URDS ####[facility] [id number] [place] [id number] [facility] Hepatitis C virus IgG Ab [Pr esence] in Serum or Plasma by ImmunoassayOrdered By: Yasmani Abdullahi on 12-27-2024 HCV IgG IA Ql Hepatitis C virus Ig G Ab [Presence] in Serum or Plasma by Immunoassay Non Reactive [facility] Leukocytes [#/volume] correc randolph for nucleated erythrocytes in Blood by Automated counOrdered By: Yasmani Abdullahi on 12-27-2024 WBC corrected for nucl RBC Auto (Bld) [#/Vol] Leukocytes [#/volume] corrected for nucleated erythrocytes in Blood by Automated coun 3.8-11.6 [facility] Lymphocytes Auto (Bld) [#/Vo l]Ordered By: Yasmani Abdullahi on 12-27-2024 Lymphocytes (Bld) [#/Vol] Lymphocytes [#/volume] in Blood by Automated count 1.00-4.8 [facility] Lymphocytes/100 WBC Auto (Bl d)Ordered By: Yasmani Abdullahi on 12-27-2024 Lymphocytes/100 WBC (Bld) Lymphocytes/100 leukocytes in Blood by Automated count . [facility] MCH Auto (RBC) [Entitic mass ]Ordered By: Yasmani Abdullahi on 12-27-2024 MCH (RBC) [Entitic mass] MCH [Entitic mass] by Automated count 24.7-34.3 [facility] MCHC Auto (RBC) [Mass/Vol]Or dered By: Yasmani Abdullahi on 12-27-2024 MCHC (RBC) [Mass/Vol] MCHC [Mass/volume] by Automated count 32.0-35.0 [facility] MCV Auto (RBC) [Entitic vol] Ordered By: Yasmani Abdullahi on 12-27-2024 MCV (RBC) [Entitic vol] MCV [Entitic volume] by Automated count 80-100 [facility] Monocytes Auto (Bld) [#/Vol] Ordered By: Yasmani Abdullahi on 12-27-2024 Monocytes (Bld) [#/Vol] Automated blood monocyte count 0.0-0.8 [facility] Monocytes/100 WBC Auto (Bld) Ordered By: Yasmani Abdullahi on 12-27-2024 Monocytes/100 WBC (Bld) Automated monocyte % . [facility] Neutrophils Auto (Bld) [#/Vo l]Ordered By: Yasmani Abdullahi on 12-27-2024 Neutrophils (Bld) [#/Vol] Neutrophils [#/volume] in Blood by Automated count 1.8-7.7 [facility] Neutrophils/100 WBC Auto (Bl d)Ordered By: Yasmani Abdullahi on 12-27-2024 Neutrophils/100 WBC (Bld) Automated neutrophil % . [facility] No Panel InformationOrdered By: Yasmani Abdullahi on 12-27-2024 Hepatitis C Interpretation Comment . [facility] Comment on above: Not infected with HC V unless early or acute infection issuspected (which may be delayed in an immunocompromisedindividual), or other evidence exists to indicate HCVinfection. Nucleated erythrocytes [Pres ence] in Blood by Automated countOrdered By: Yasmani Abdullahi on 12-27-2024 Nucleated RBC Auto Ql (Bld) Nucleated erythrocytes [Presence] in Blood by Automated count 0-0.5 [facility] Opiates [Presence] in Urine by Screen methodOrdered By: Yasmani Abdullahi on 12-27-2024 Opiates Screen Ql (U) Opiates [Presence] in Urine by Screen method Negative [facility] Phencyclidine Screen Ql (U)O rdered By: Yasmani Abdullahi on 12-27-2024 Phencyclidine Ql (U) Phencyclidine [Pres ence] in Urine by Screen method Negative [facility] Platelet mean volume Auto (B ld) [Entitic vol]Ordered By: Yasmani Abdullahi on 12-27-2024 Platelet mean volume (Bld) [Entitic vol] Platelet mean volume [Entitic volume] in Blood by Automated count 6.3-10.7 [facility] Platelets Auto (Bld) [#/Vol] Ordered By: Yasmani Abdullahi on 12-27-2024 Platelets (Bld) [#/Vol] Platelets [#/volume] in Blood by Automated count 150-450 [facility] RBC Auto (Bld) [#/Vol]Ordere d By: Yasmani Abdullahi on 12-27-2024 RBC (Bld) [#/Vol] Erythrocytes [#/volu me] in Blood by Automated count 3.60-5.00 [facility] RPR w/rfx to Quant TP Abson 12-27-2024 RPR, Rfx Quant RPR Non-Reactive Normal Non Reactive [facility] Comment on above: Order Comment: NONFA STING.JKW Result Comment: Perf ormed at: - [facility] [address] [id number] Securities Adviser: Garfield Fay PhD, Phone: [phone] PERFORMED BY: [facility] [address] [place] [address] PATHOLOGIST COMMUNICATIONS SENIOR ASSOCIATE LEÓN GARCIA M.D. Performed By: #### H CV RX PCR, RPR W RFX, RUBELLA IGG, HBSAG, HIV SCREEN ####[facility] ,#### CUU, A1C WTH eA, CBC, URDS ####[place] [address] [address] Rubella IgG Antibodyon 12-27 Rubella IgG Antibody 1.22 Normal Immune >0.99 [facility] Comment on above: Order Comment: NONFA STING.JKW Result Comment: Non- immune <0.90 Equivocal 0.90 - 0.99 Immune >0.99 Performed By: #### H CV RX PCR, RPR W RFX, RUBELLA IGG, HBSAG, HIV SCREEN ####[facility] ,#### CUU, A1C WTH eA, CBC, URDS ####[place] [address] [place] [id number] [facility] Rubella IgG antibody assayOr dered By: Yasmani Abdullahi on 12-27-2024 Rubella IgG Antibody 1.22 index Immune >0.99 [facility] Comment on above: Non-immune <0.90 Equ ivocal 0.90 - 0.99 Immune >0.99 Serum RPR testOrdered By: Rishi Abdullahi on 12-27-2024 Reagin Ab RPR Ql (S) Reagin Ab [Presence ] in Serum by RPR Non Reactive [facility] Comment on above: Performed at: [facility] [address] [id number] Director: Garfield Fay PhD, Phone: [phone] Serum or plasma hepatitis B virus surface antigen detection by immunoassayOrdered By: Yasmani Abdullahi on 12-27-2024 HBV surface Ag IA Ql Hepatitis B virus s urface Ag [Presence] in Serum or Plasma by Immunoassay Negative [facility] Comment on above: Performed at: [facility] [address] [id number] Director: Garfield Fay PhD, Phone: [phone] Type and Screenon 12-27-2024 ABO and Rh group Nom (Bld) Blood group B Rh(D) negative Normal [facility] Comment on above: Order Comment: NONFA STING.JKW Result Comment: PERF ORMED BY: [facility] [address] [place] [id number] PATHOLOGIST COMMUNICATIONS SENIOR ASSOCIATE LEÓN GARCIA M.D. Urine Cultureon 12-27-2024 Bacteria identified Cx Nom (U) NONFASTING.JKW 15,000 colonies/ml mixed bacterial skin contaminants 2 Days PERFORMED BY: [facility] [address] [place] [address] PATHOLOGIST COMMUNICATIONS SENIOR ASSOCIATE LEÓN GARCIA M.D. Normal [facility] Comment on above: Performed By: #### H CV RX PCR, RPR W RFX, RUBELLA IGG, HBSAG, HIV SCREEN ####[facility] ,#### CUU, A1C WTH eA, CBC, URDS ####[facility] [address] [place] [address] [facility] Urine cultureOrdered By: Paramjit Abdullahi on 12-27-2024 Bacteria identified Cx Nom (U) Urine culture [facility] WBC Auto (Bld) [#/Vol]Ordere d By: Yasmani Abdullahi on 12-27-2024 WBC (Bld) [#/Vol] Leukocytes [#/volume ] in Blood by Automated count 3.8-11.6 [facility] US OB TRANSVAGINALon 025 US OB [...] II, MD, PHD at 22-Dec-2024 08:23:50 AM [employer] Normal Not Available Comment on above: Order Comment: US OB TRANSVAGINAL No LMP recorded. Alanine aminotransferase [En zymatic activity/volume] in Serum or PlasmaOrdered By: Jose Forman on 12-06-2024 ALT [Catalytic activity/Vol] Alanine aminotransferase [Enzymatic activity/volume] in Serum or Plasma 7-52 [facility] Albumin [Mass/volume] in Ser um or Plasma by Bromocresol green (BCG) dye binding methoOrdered By: Jose Forman on 12-06-2024 Albumin BCG dye [Mass/Vol] Albumin [Mass/volume] in Serum or Plasma by Bromocresol green (BCG) dye binding metho 3.5-5.7 [facility] Alkaline phosphatase [Enzyma tic activity/volume] in Serum or PlasmaOrdered By: Jose Forman on 12-06-2024 ALP [Catalytic activity/Vol] Alkaline phosphatase [Enzymatic activity/volume] in Serum or Plasma 34-104 [facility] Appearance of UrineOrdered B y: Jose Forman on 12-06-2024 Appearance (U) Urine appearance Clear [facility] Aspartate aminotransferase [ Enzymatic activity/volume] in Serum or PlasmaOrdered By: Jose Forman on 12-06-2024 AST [Catalytic activity/Vol] Aspartate aminotransferase [Enzymatic activity/volume] in Serum or Plasma Low 13-39 [facility] Bacteria [Presence] in Urine by AutomatedOrdered By: Jose Forman on 12-06-2024 Bacteria Auto Ql (U) Bacteria [Presence] in Urine by Automated None Seen [facility] Basic Metabolic Panelon 11-18 Anion gap [Moles/Vol] 7.0 mmol/L Normal 6.0-15.0 [facility] Comment on above: Performed By: #### C BC, HCGQNT, LIPASE, PT, HS TROP, PTT, HEPATIC, BMP ####[facility] Calcium [Mass/Vol] 9.1 mg/dL Normal 8.6-10.3 [facility] Comment on above: Performed By: #### C BC, HCGQNT, LIPASE, PT, HS TROP, PTT, HEPATIC, BMP ####[facility] [place] [id number] [facility] Chloride [Moles/Vol] 106 mmol/L Normal 98-107 [facility] Comment on above: Performed By: #### C BC, HCGQNT, LIPASE, PT, HS TROP, PTT, HEPATIC, BMP ####[place] [address] [address] CO2 [Moles/Vol] 24.6 mmol/L Normal 21.0-31.0 [facility] Comment on above: Performed By: #### C BC, HCGQNT, LIPASE, PT, HS TROP, PTT, HEPATIC, BMP ####[address] Creatinine [Mass/Vol] 0.70 mg/dL Normal 0.60-1.20 [facility] Comment on above: Performed By: #### C BC, HCGQNT, LIPASE, PT, HS TROP, PTT, HEPATIC, BMP ####[place] [address] [address] Creatinine Clr Calc Pharmacy 129.71 Normal [facility] Comment on above: Performed By: #### C BC, HCGQNT, LIPASE, PT, HS TROP, PTT, HEPATIC, BMP ####[address] GFR/1.73 sq M.predicted MDRD (S/P/Bld) [Vol rate/Area] mL/min/{1.73_m2} Normal [facility] Comment on above: Performed By: #### C BC, HCGQNT, LIPASE, PT, HS TROP, PTT, HEPATIC, BMP ####[address] Glucose [Mass/Vol] 94 mg/dL Normal 70-100 [facility] Comment on above: Result Comment: [facility] Glucose Reference Range is dependent on time and content of last meal. Glucose of more than 200 mg/dL in a nonstressed, ambulatory subject supports the diagnosis of Diabetes Mellitus. ADA recommended reference range Performed By: #### C BC, HCGQNT, LIPASE, PT, HS TROP, PTT, HEPATIC, BMP ####[address] Potassium [Moles/Vol] 3.6 mmol/L Normal 3.5-5.1 [facility] Comment on above: Performed By: #### C BC, HCGQNT, LIPASE, PT, HS TROP, PTT, HEPATIC, BMP ####[facility] Sodium [Moles/Vol] 134 mmol/L Low 136-145 [facility] Comment on above: Performed By: #### C BC, HCGQNT, LIPASE, PT, HS TROP, PTT, HEPATIC, BMP ####[facility] Urea nitrogen [Mass/Vol] 9 mg/dL Normal 7-25 [facility] Comment on above: Performed By: #### C BC, HCGQNT, LIPASE, PT, HS TROP, PTT, HEPATIC, BMP ####[place] [address] [address] Basophils Auto (Bld) [#/Vol] Ordered By: Jose Forman on 12-06-2024 Basophils (Bld) [#/Vol] Automated basophil count 0.0-0.2 [facility] Basophils/100 WBC Auto (Bld) Ordered By: Jose Forman on 12-06-2024 Basophils/100 WBC (Bld) Automated basophil % . [facility] Bilirubin Test strip Ql (U)O rdered By: Jose Forman on 12-06-2024 Bilirubin Ql (U) Bilirubin.total [Presence] in Urine by Test strip Negative [facility] Bilirubin.direct [Mass/volum e] in Serum or PlasmaOrdered By: Jose Forman on 12-06-2024 Bilirubin.direct [Mass/Vol] Bilirubin.direct [Mass/volume] in Serum or Plasma 0.03-0.18 [facility] Bilirubin.total [Mass/volume ] in Serum or PlasmaOrdered By: Jose Forman on 12-06-2024 Bilirubin [Mass/Vol] Bilirubin.total [Mass/volume] in Serum or Plasma 0.3-1.0 [facility] Calcium [Mass/volume] in Ser um or PlasmaOrdered By: Jose Forman on 12-06-2024 Calcium [Mass/Vol] Calcium [Mass/volume ] in Serum or Plasma 8.6-10.3 [facility] Carbon dioxide, total [Moles /volume] in Serum or PlasmaOrdered By: Jose Forman on 12-06-2024 CO2 [Moles/Vol] Carbon dioxide, tota l [Moles/volume] in Serum or Plasma 21.0-31.0 [facility] Chloride [Moles/volume] in S eamon or PlasmaOrdered By: Jose Forman on 12-06-2024 Chloride [Moles/Vol] Chloride [Moles/vol ume] in Serum or Plasma 98-107 [facility] Choriogonadotropin.beta subu nit [Units/volume] in Serum or PlasmaOrdered By: Jose Forman on 12-06-2024 HCG.beta subunit Qn Choriogonadotropin.b eta subunit [Units/volume] in Serum or Plasma [facility] Comment on above: Approximate Approxim ate hCG Gestational Age Range (mIU/ml) (weeks)0.2-1 5-50 1-2 50-500 2-3 100-5,000 3-4 500-10,000 4-5 1,000-50,000 5-6 10,000-100,000 6-8 15,000-200,000 8-12 10,000-100,000 Color Auto (U)Ordered By: Edin Forman on 12-06-2024 Color (U) Color of Urine by Auto Yellow Fi [facility] Complete Blood Count Auto Di ffon 12-06-2024 Basophils (Bld) [#/Vol] 0.0 10*3/uL Normal 0.0-0.2 [facility] Comment on above: Result Comment: PERF ORMED BY: [facility] [address] [place] [id number] PATHOLOGIST COMMUNICATIONS SENIOR ASSOCIATE LEÓN GARCIA M.D. Performed By: #### C BC, HCGQNT, LIPASE, PT, HS TROP, PTT, HEPATIC, BMP ####[place] [address] [address] Basophils/100 WBC (Bld) 0.4 % Normal . [facility] Comment on above: Performed By: #### C BC, HCGQNT, LIPASE, PT, HS TROP, PTT, HEPATIC, BMP ####[place] [address] [address] Eosinophils (Bld) [#/Vol] 0.0 10*3/uL Normal 0.0-0.45 [facility] Comment on above: Performed By: #### C BC, HCGQNT, LIPASE, PT, HS TROP, PTT, HEPATIC, BMP ####[address] Eosinophils/100 WBC (Bld) 0.4 % Normal . [facility] Comment on above: Performed By: #### C BC, HCGQNT, LIPASE, PT, HS TROP, PTT, HEPATIC, BMP ####[address] Erythrocyte distribution width (RBC) [Ratio] 13.0 % Normal 11.9-15.3 [facility] Comment on above: Performed By: #### C BC, HCGQNT, LIPASE, PT, HS TROP, PTT, HEPATIC, BMP ####[address] Hematocrit (Bld) [Volume fraction] 38.5 % Normal 34.0-46.4 [facility] Comment on above: Performed By: #### C BC, HCGQNT, LIPASE, PT, HS TROP, PTT, HEPATIC, BMP ####[address] Hemoglobin (Bld) [Mass/Vol] 13.4 g/dL Normal 11.8-15.4 [facility] Comment on above: Performed By: #### C BC, HCGQNT, LIPASE, PT, HS TROP, PTT, HEPATIC, BMP ####[address] Lymphocytes (Bld) [#/Vol] 1.1 10*3/uL Normal 1.00-4.8 [facility] Comment on above: Performed By: #### C BC, HCGQNT, LIPASE, PT, HS TROP, PTT, HEPATIC, BMP ####[address] Lymphocytes/100 WBC (Bld) 14.1 % Normal . [facility] Comment on above: Performed By: #### C BC, HCGQNT, LIPASE, PT, HS TROP, PTT, HEPATIC, BMP ####[address] MCH (RBC) [Entitic mass] 27.6 pg Normal 24.7-34.3 [facility] Comment on above: Performed By: #### C BC, HCGQNT, LIPASE, PT, HS TROP, PTT, HEPATIC, BMP ####[address] MCV (RBC) [Entitic vol] 79.6 fL Low 80-100 [facility] Comment on above: Performed By: #### C BC, HCGQNT, LIPASE, PT, HS TROP, PTT, HEPATIC, BMP ####[address] Mean Corpuscular HGB Conc 34.7 g/dL Normal 32.0-35.0 [facility] Comment on above: Performed By: #### C BC, HCGQNT, LIPASE, PT, HS TROP, PTT, HEPATIC, BMP ####[address] Monocytes (Bld) [#/Vol] 0.5 10*3/uL Normal 0.0-0.8 [facility] Comment on above: Performed By: #### C BC, HCGQNT, LIPASE, PT, HS TROP, PTT, HEPATIC, BMP ####[address] Monocytes/100 WBC (Bld) 16.18 % Normal 0.00-20.00 [facility] Comment on above: Performed By: #### C BC, HCGQNT, LIPASE, PT, HS TROP, PTT, HEPATIC, BMP ####[address] Monocytes/100 WBC (Bld) 6.4 % Normal . [facility] Comment on above: Performed By: #### C BC, HCGQNT, LIPASE, PT, HS TROP, PTT, HEPATIC, BMP ####[address] Neutrophils (Bld) [#/Vol] 5.9 10*3/uL Normal 1.8-7.7 [facility] Comment on above: Performed By: #### C BC, HCGQNT, LIPASE, PT, HS TROP, PTT, HEPATIC, BMP ####[address] Neutrophils/100 WBC (Bld) 78.7 % Normal . [facility] Comment on above: Performed By: #### C BC, HCGQNT, LIPASE, PT, HS TROP, PTT, HEPATIC, BMP ####[address] NRBC% 0.0 /100{WBC} Normal 0-0.5 [facility] Comment on above: Performed By: #### C BC, HCGQNT, LIPASE, PT, HS TROP, PTT, HEPATIC, BMP ####[address] Platelet mean volume (Bld) [Entitic vol] 8.7 fL Normal 6.3-10.7 [facility] Comment on above: Performed By: #### C BC, HCGQNT, LIPASE, PT, HS TROP, PTT, HEPATIC, BMP ####[address] Platelets (Bld) [#/Vol] 230 10*3/uL Normal 150-450 [facility] Comment on above: Performed By: #### C BC, HCGQNT, LIPASE, PT, HS TROP, PTT, HEPATIC, BMP ####[address] RBC (Bld) [#/Vol] 4.84 10*6/uL Normal 3.60-5.00 [facility] Comment on above: Performed By: #### C BC, HCGQNT, LIPASE, PT, HS TROP, PTT, HEPATIC, BMP ####[address] WBC (Bld) [#/Vol] 7.6 10*3/uL Normal 3.8-11.6 [facility] Comment on above: Performed By: #### C BC, HCGQNT, LIPASE, PT, HS TROP, PTT, HEPATIC, BMP ####[facility] [address] [place] [id number] [facility] Creatinine [Mass/volume] in Serum or PlasmaOrdered By: Jose Forman on 12-06-2024 Creatinine [Mass/Vol] Creatinine [Mass/v olume] in Serum or Plasma 0.60-1.20 [facility] Dipstick and Microscopicon 0 12-06-2024 Appearance (U) Clear Normal Clear [facility] Comment on above: Order Comment: Name Collection Type:: Clean-Voided Midstream Performed By: #### U HCG, ADDONUAPLUS #### [facility] [address] [place] [address] [place] Bacteria,Urine None Seen Normal None Seen [facility] Comment on above: Order Comment: Name Collection Type:: Clean-Voided Midstream Performed By: #### U HCG, ADDONUAPLUS #### [facility] [address] [place] [address] [place] Bilirubin,Urine Negative Normal Negative [facility] Comment on above: Order Comment: Name Collection Type:: Clean-Voided Midstream Performed By: #### U HCG, ADDONUAPLUS #### [facility] [address] [place] [address] [place] Color (U) Yellow Normal Yellow [facility] Comment on above: Order Comment: Name Collection Type:: Clean-Voided Midstream Performed By: #### U HCG, ADDONUAPLUS #### [facility] [address] [place] [id number] [place] Glucose Ql (U) Normal Normal Normal [facility] Comment on above: Order Comment: Name Collection Type:: Clean-Voided Midstream Performed By: #### U HCG, ADDONUAPLUS #### [facility] [address] [place] [id number] [place] Hyaline Casts,Urine None Normal 0-8 [facility] Comment on above: Order Comment: Name Collection Type:: Clean-Voided Midstream Performed By: #### U HCG, ADDONUAPLUS #### [address] Ketones Ql (U) 1+ High Negative [facility] Comment on above: Order Comment: Name Collection Type:: Clean-Voided Midstream Performed By: #### U HCG, ADDONUAPLUS #### [address] Leukocyte esterase Test strip Ql (U) Negative Normal Negative [facility] Comment on above: Order Comment: Name Collection Type:: Clean-Voided Midstream Performed By: #### U HCG, ADDONUAPLUS #### [address] Mucus,Urine Rare Normal [facility] Comment on above: Order Comment: Name Collection Type:: Clean-Voided Midstream Performed By: #### U HCG, ADDONUAPLUS #### [place] [address] [place] Nitrite,Urine Negative Normal Negative [facility] Comment on above: Order Comment: Name Collection Type:: Clean-Voided Midstream Performed By: #### U HCG, ADDONUAPLUS #### [address] Occult Blood,Urine Negative Normal Negative [facility] Comment on above: Order Comment: Name Collection Type:: Clean-Voided Midstream Performed By: #### U HCG, ADDONUAPLUS #### [place] [address] [place] pH (U) 6.5 [pH] Normal 5.0-9.0 [facility] Comment on above: Order Comment: Name Collection Type:: Clean-Voided Midstream Performed By: #### U HCG, ADDONUAPLUS #### [address] Protein,Urine Trace High Negative [facility] Comment on above: Order Comment: Name Collection Type:: Clean-Voided Midstream Performed By: #### U HCG, ADDONUAPLUS #### [address] [place] [address] [place] RBC,Urine 1-2 Normal 0-4 [facility] Comment on above: Order Comment: Name Collection Type:: Clean-Voided Midstream Performed By: #### U HCG, ADDONUAPLUS #### [address] Specificy Horatio,Urine 1.025 Normal 1.001-1.03 0 [facility] Comment on above: Order Comment: Name Collection Type:: Clean-Voided Midstream Performed By: #### U HCG, ADDONUAPLUS #### [address] Squamous Epithelial Cell,Urine 1-2 Normal 0-2 [facility] Comment on above: Order Comment: Name Collection Type:: Clean-Voided Midstream Performed By: #### U HCG, ADDONUAPLUS #### [address] Urobilinogen,Urine Normal Normal Normal [facility] Comment on above: Order Comment: Name Collection Type:: Clean-Voided Midstream Performed By: #### U HCG, ADDONUAPLUS #### [facility] [address] [place] [address] [place] WBC,Urine 1-2 Normal 0-4 [facility] Comment on above: Order Comment: Name Collection Type:: Clean-Voided Midstream Performed By: #### U HCG, ADDONUAPLUS #### [address] ECG 12 lead ECGon 12-06-2024 ECG 12 lead ECG [facility] [place] [address] [place] [address] Electrocardiograph Report Signed Patient: Noris Goetz MR#: [id number] 61 : 1990 Acct:[id number] Age/Sex: 34 / F ADM Date: 12/06/24 Loc: ER Room: Type: [facility] ER Attending Dr: Ordering Provider: [...] branch block Confirmed by Jose FORMAN DO ([id number]) on 12/06/2024 10:38:39 AM Referred By: Electronically Signed By: Jose FORMAN DO Transcribed By: MUS Signed By Jose Forman DO 0 12/06/24 1038 Normal [facility] Eosinophils Auto (Bld) [#/Vo l]Ordered By: Jose Forman on 12-06-2024 Eosinophils (Bld) [#/Vol] Automated eosinophil count 0.0-0.45 [facility] Eosinophils/100 WBC Auto (Bl d)Ordered By: Jose Forman on 12-06-2024 Eosinophils/100 WBC (Bld) Automated eosinophil % . [facility] Epithelial cells.squamous [# /area] in Urine sediment by Automated countOrdered By: Jose Forman on 12-06-2024 Epithelial cells.squamous Auto (Urine sed) [#/Area] Epithelial cells.squamous [#/area] in Urine sediment by Automated count 0-2 [facility] Erythrocyte distribution wid th Auto (RBC) [Ratio]Ordered By: Jose Forman on 12-06-2024 Erythrocyte distribution width (RBC) [Ratio] Erythrocyte distribution width [Ratio] by Automated count 11.9-15.3 [facility] Erythrocytes [#/area] in Uri ne sediment by Automated countOrdered By: Jose Forman on 12-06-2024 RBC Auto (Urine sed) [#/Area] Erythrocytes [#/area] in Urine sediment by Automated count 0-4 [facility] Globulin Calc (S) [Mass/Vol] Ordered By: Jose Forman on 12-06-2024 Globulin (S) [Mass/Vol] Serum globulin measurement by calculation (mass/volume) [facility] Glucose [Mass/volume] in Ser um or PlasmaOrdered By: Jose Forman on 12-06-2024 Glucose [Mass/Vol] Glucose [Mass/volume ] in Serum or Plasma 70-100 [facility] Comment on above: ADA recommended refe [...] [Mass/volume] in Urine by Test strip Normal [facility] HCG ( test) IA.rapi d Ql (U)Ordered By: Jose Forman on 12-06-2024 HCG ( test) Ql (U) Urine human chorionic gonadotropin (hCG) detection by immunoassay High [facility] HCG,Quantitativeon HCG,Quantitative 661404.00 m[iU]/mL Normal [facility] Comment on above: Result Comment: Appr oximate Approximate hCG Gestational Age Range (mIU/ml) (weeks) 0.2-1 5-50 1-2 50-500 2-3 100-5,000 3-4 500-10,000 4-5 1,000-50,000 5-6 10,000-100,000 6-8 15,000-200,000 8-12 10,000-100,000 PERFORMED BY: [place] [address] PATHOLOGIST COMMUNICATIONS SENIOR ASSOCIATE LEÓN GARCIA M.D. Performed By: #### C BC, HCGQNT, LIPASE, PT, HS TROP, PTT, HEPATIC, BMP ####[facility] HCG,Urineon 12-06-2024 Beta HCG ( test) Ql (U) Positive High [facility] Comment on above: Order Comment: Name Collection Type:: Clean-Voided Midstream Result Comment: PERF ORMED BY: [place] [address] PATHOLOGIST COMMUNICATIONS SENIOR ASSOCIATE LEÓN GARCIA M.D. Performed By: #### U HCG, ADDONUAPLUS #### [address] Hematocrit Auto (Bld) [Volum e fraction]Ordered By: Jose Forman on 12-06-2024 Hematocrit (Bld) [Volume fraction] Hematocrit [Volume Fraction] of Blood by Automated count 34.0-46.4 [facility] Hemoglobin Test strip Ql (U) Ordered By: Jose Forman on 12-06-2024 Hemoglobin Ql (U) Hemoglobin [Presence ] in Urine by Test strip Negative [facility] Hemoglobin [Mass/volume] in BloodOrdered By: Jose Forman on 12-06-2024 Hemoglobin (Bld) [Mass/Vol] Hemoglobin [Mass/volume] in Blood 11.8-15.4 [facility] Hepatic Panelon 12-06-2024 Albumin [Mass/Vol] 4.1 g/dL Normal 3.5-5.7 [facility] Comment on above: Performed By: #### C BC, HCGQNT, LIPASE, PT, HS TROP, PTT, HEPATIC, BMP ####[address] Albumin/Globulin [Mass ratio] 1.6 {ratio} Normal [facility] Comment on above: Performed By: #### C BC, HCGQNT, LIPASE, PT, HS TROP, PTT, HEPATIC, BMP ####[address] ALP [Catalytic activity/Vol] 47 U/L Normal 34-104 [facility] Comment on above: Performed By: #### C BC, HCGQNT, LIPASE, PT, HS TROP, PTT, HEPATIC, BMP ####[address] ALT [Catalytic activity/Vol] 11 U/L Normal 7-52 [facility] Comment on above: Performed By: #### C BC, HCGQNT, LIPASE, PT, HS TROP, PTT, HEPATIC, BMP ####[address] AST [Catalytic activity/Vol] 12 U/L Low 13-39 [facility] Comment on above: Performed By: #### C BC, HCGQNT, LIPASE, PT, HS TROP, PTT, HEPATIC, BMP ####[address] Bilirubin [Mass/Vol] 0.5 mg/dL Normal 0.3-1.0 [facility] Comment on above: Performed By: #### C BC, HCGQNT, LIPASE, PT, HS TROP, PTT, HEPATIC, BMP ####[address] Bilirubin,Indirect 0.4 mg/dL Normal [facility] Comment on above: Performed By: #### C BC, HCGQNT, LIPASE, PT, HS TROP, PTT, HEPATIC, BMP ####[address] Bilirubin.indirect [Mass/Vol] 0.10 mg/dL Normal 0.03-0.18 [facility] Comment on above: Performed By: #### C BC, HCGQNT, LIPASE, PT, HS TROP, PTT, HEPATIC, BMP ####[address] Globulin (S) [Mass/Vol] 2.6 g/dL Normal [facility] Comment on above: Performed By: #### C BC, HCGQNT, LIPASE, PT, HS TROP, PTT, HEPATIC, BMP ####[address] Protein [Mass/Vol] 6.7 g/dL Normal 6.4-8.9 [facility] Comment on above: Performed By: #### C BC, HCGQNT, LIPASE, PT, HS TROP, PTT, HEPATIC, BMP ####[address] Hyaline casts [#/area] in Ur ine sediment by Automated countOrdered By: Jose Forman on 12-06-2024 Hyaline casts Auto (Urine sed) [#/Area] Hyaline casts [#/area] in Urine sediment by Automated count 0-8 [facility] INR in Platelet poor plasma by Coagulation assayOrdered By: Jose Forman on 12-06-2024 INR Coag (PPP) [Relative time] INR in Platelet poor plasma by Coagulation assay [facility] Comment on above: INR Therapeutic Rang [...] n Urine by Test strip High Negative [facility] Leukocyte esterase [Presence ] in Urine by Test stripOrdered By: Jose Forman on 12-06-2024 Leukocyte esterase Test strip Ql (U) Leukocyte esterase [Presence] in Urine by Test strip Negative [facility] Leukocytes [#/area] in Urine sediment by Automated countOrdered By: Jose Forman on 12-06-2024 WBC Auto (Urine sed) [#/Area] Leukocytes [#/area] in Urine sediment by Automated count 0-4 [facility] Leukocytes [#/volume] correc randolph for nucleated erythrocytes in Blood by Automated counOrdered By: Jose Forman on 12-06-2024 WBC corrected for nucl RBC Auto (Bld) [#/Vol] Leukocytes [#/volume] corrected for nucleated erythrocytes in Blood by Automated coun 3.8-11.6 [facility] Lipaseon 12-06-2024 Lipase [Catalytic activity/Vol] 11.0 U/L Normal 11.0-82.0 [facility] Comment on above: Performed By: #### C BC, HCGQNT, LIPASE, PT, HS TROP, PTT, HEPATIC, BMP ####[facility] [address] [place] [id number] [facility] Lipase [Enzymatic activity/v olume] in Serum or PlasmaOrdered By: Jose Forman on 12-06-2024 Lipase [Catalytic activity/Vol] Lipase [Enzymatic activity/volume] in Serum or Plasma 11.0-82.0 [facility] Lymphocytes Auto (Bld) [#/Vo l]Ordered By: Jose Forman on 12-06-2024 Lymphocytes (Bld) [#/Vol] Lymphocytes [#/volume] in Blood by Automated count 1.00-4.8 [facility] Lymphocytes/100 WBC Auto (Bl d)Ordered By: Jose Forman on 12-06-2024 Lymphocytes/100 WBC (Bld) Lymphocytes/100 leukocytes in Blood by Automated count . [facility] MCH Auto (RBC) [Entitic mass ]Ordered By: Jose Forman on 12-06-2024 MCH (RBC) [Entitic mass] MCH [Entitic mass] by Automated count 24.7-34.3 [facility] MCHC Auto (RBC) [Mass/Vol]Or dered By: Jose Forman on 12-06-2024 MCHC (RBC) [Mass/Vol] MCHC [Mass/volume] by Automated count 32.0-35.0 [facility] MCV Auto (RBC) [Entitic vol] Ordered By: Jose Forman on 12-06-2024 MCV (RBC) [Entitic vol] MCV [Entitic volume] by Automated count Low 80-100 [facility] Monocyte distribution width [Entitic volume] in Blood by AutomatedOrdered By: Jose Forman on 12-06-2024 Monocyte distribution width Auto (Bld) [Entitic vol] Monocyte distribution width [Entitic volume] in Blood by Automated 0.00-20.00 [facility] Monocytes Auto (Bld) [#/Vol] Ordered By: Jose Forman on 12-06-2024 Monocytes (Bld) [#/Vol] Automated blood monocyte count 0.0-0.8 [facility] Monocytes/100 WBC Auto (Bld) Ordered By: Jose Forman on 12-06-2024 Monocytes/100 WBC (Bld) Automated monocyte % . [facility] Mucus [Presence] in Urine by AutomatedOrdered By: Jose Forman on 12-06-2024 Mucus Auto Ql (U) Mucus [Presence] in Urine by Automated [facility] Neutrophils Auto (Bld) [#/Vo l]Ordered By: Jose Forman on 12-06-2024 Neutrophils (Bld) [#/Vol] Neutrophils [#/volume] in Blood by Automated count 1.8-7.7 [facility] Neutrophils/100 WBC Auto (Bl d)Ordered By: Jose Forman on 12-06-2024 Neutrophils/100 WBC (Bld) Automated neutrophil % . [facility] Nitrite Test strip Ql (U)Ord ered By: Jose Forman on 12-06-2024 Nitrite Ql (U) Nitrite [Presence] i n Urine by Test strip Negative [facility] No Panel InformationOrdered By: Jose Forman on 12-06-2024 Estimated GFR (CKD-EPI) > 60.0 mL/Min [facility] Creatinine Clearance (Chem 129.71 [facility] Nucleated erythrocytes [Pres ence] in Blood by Automated countOrdered By: Jose Forman on 12-06-2024 Nucleated RBC Auto Ql (Bld) Nucleated erythrocytes [Presence] in Blood by Automated count 0-0.5 [facility] Partial Thromboplastin Timeo n 12-06-2024 aPTT Coag (Bld) [Time] 28.1 s Normal 25.1-36.5 [facility] Comment on above: Result Comment: A he matocrit value greater than 55% may lead to inaccurate results in coagulation testing. Patients having hematocrit values >55% require a special collection tube for coagulation studies. Please contact the laboratory at [phone] for redraw instructions. PERFORMED BY: [facility] [address] [place] [address] PATHOLOGIST COMMUNICATIONS SENIOR ASSOCIATE LEÓN GARCIA M.D. Performed By: #### C BC, HCGQNT, LIPASE, PT, HS TROP, PTT, HEPATIC, BMP ####[facility] [address] Platelet mean volume Auto (B ld) [Entitic vol]Ordered By: Jose Forman on 12-06-2024 Platelet mean volume (Bld) [Entitic vol] Platelet mean volume [Entitic volume] in Blood by Automated count 6.3-10.7 [facility] Platelets Auto (Bld) [#/Vol] Ordered By: Jose Forman on 12-06-2024 Platelets (Bld) [#/Vol] Platelets [#/volume] in Blood by Automated count 150-450 [facility] Potassium [Moles/volume] in Serum or PlasmaOrdered By: Jose Forman on 12-06-2024 Potassium [Moles/Vol] Potassium [Moles/v olume] in Serum or Plasma 3.5-5.1 [facility] Protein Test strip (U) [Mass /Vol]Ordered By: Jose Forman on 12-06-2024 Protein (U) [Mass/Vol] Protein [Mass/vol ume] in Urine by Test strip High Negative [facility] Protein [Mass/volume] in Ser um or PlasmaOrdered By: Jose Forman on 12-06-2024 Protein [Mass/Vol] Protein [Mass/volume ] in Serum or Plasma 6.4-8.9 [facility] Prothrombin Time INRon 12-06 INR Coag (PPP) [Relative time] 1.1 {INR} Normal [facility] Comment on above: Result [...] LIPASE, PT, HS TROP, PTT, HEPATIC, BMP ####[facility] [address] [place] [id number] [facility] PT Coag (PPP) [Time] 12.3 s Normal 9.0-12.9 [facility] Comment on above: Result Comment: A he matocrit value greater than 55% may lead to inaccurate results in coagulation testing. Patients having hematocrit values >55% require a special collection tube for coagulation studies. Please contact the laboratory at [phone] for redraw instructions. Performed By: #### C BC, HCGQNT, LIPASE, PT, HS TROP, PTT, HEPATIC, BMP ####[facility] [address] [place] [id number] [facility] Prothrombin time (PT)Ordered By: Jose Forman on 12-06-2024 PT Coag (PPP) [Time] Prothrombin time (PT) 9.0- 12.9 [facility] Comment on above: A hematocrit value g reater than 55% may lead to inaccurate results in coagulation testing. Patients having hematocrit values >55% require a special collection tube for coagulation studies. Please contact the laboratory at [phone] for redraw instructions. RBC Auto (Bld) [#/Vol]Ordere d By: Jose Forman on 12-06-2024 RBC (Bld) [#/Vol] Erythrocytes [#/volu me] in Blood by Automated count 3.60-5.00 [facility] Serum or plasma albumin/glob ulin mass ratioOrdered By: Jose Forman on 12-06-2024 Albumin/Globulin [Mass ratio] Serum or plasma albumin/globulin mass ratio [facility] Serum or plasma anion gap de terminationOrdered By: Jose Forman on 12-06-2024 Anion gap [Moles/Vol] Serum or plasma an ion gap determination 6.0-15.0 [facility] Serum or plasma non-glucuron idated bilirubin measurement (mass/volume)Ordered By: Jose Forman on 12-06-2024 Bilirubin.indirect [Mass/Vol] Serum or plasma non-glucuronidated bilirubin measurement (mass/volume) [facility] Sodium [Moles/volume] in Ser um or PlasmaOrdered By: Jose Forman on 12-06-2024 Sodium [Moles/Vol] Sodium [Moles/volume ] in Serum or Plasma Low 136-145 [facility] Specific gravity Test strip (U) [Rel density]Ordered By: Jose Forman on 12-06-2024 Specific gravity (U) [Rel density] Specific gravity of Urine by Test strip 1.001-1.03 0 [facility] Troponin I High Sensitivityo n 12-06-2024 Troponin I High Sensitivity 3 Normal 0-15 [facility] Comment on above: Result Comment: The Troponin units of report have been changed to meet the Chest Pain Accreditation requirement, element EC5.M1l2. Troponin units are changed from pg/ml to ng/L. Also, the decimal is removed and results are in whole numbers. PERFORMED BY: [facility] [address] [place] [address] PATHOLOGIST COMMUNICATIONS SENIOR ASSOCIATE LEÓN GARCIA M.D. Performed By: #### C BC, HCGQNT, LIPASE, PT, HS TROP, PTT, HEPATIC, BMP ####[facility] [address] [place] [id number] [facility] Troponin I.cardiac [Mass/vol ume] in Serum or Plasma by Detection limit <= 0.01 ng/Ordered By: Jose Forman on 12-06-2024 Troponin I.cardiac DL <= 0.01 ng/mL [Mass/Vol] Troponin I.cardiac [Mass/volume] in Serum or Plasma by Detection limit <= 0.01 ng/ 0-15 [facility] Comment on above: The Troponin units o f report have been changed to meet the Chest Pain Accreditation requirement, element EC5.M1l2. Troponin units are changed from pg/ml to ng/L. Also, the decimal is removed and results are in whole numbers. US OB <= 14 weeks fetuson US OB <= 14 weeks fetus [facility] [address] [place] [address] Ultrasound Report Signed Patient: Noris Goetz MR#: [id number] 61 : 1990 Acct:[id number] Age/Sex: 34 / F ADM Date: 12/06/24 Loc: ER Room: Type: [facility] ER Attending Dr: Ordering Provider: Jose Forman DO Date of Service: 12/06/24 US/US OB <= 14 weeks fetus: Abdominal Pain Copies to: Jose Forman DO Obstetrical ultrasound for fetus less than 14 weeks HISTORY: Abdominal pain. Vaginal bleeding COMPARISON: None The heart rate is 126bpm. Ovaries not visualized No free fluid identified in cul-de-sac. No subchorionic hemorrhage identified. [place]-rump length measures 6.4cm consistent with 6 weeks 4 days. The yolk sac is not seen. The estimated due date by this ultrasound is 07/28/2025. US/US OB <= 14 weeks fetus IMPRESSION: Single live anterior gestation 6 weeks 4 days. Impression dictated by: Alfonzo Flores M.D.12/06/2024 9:55 AM Dictation Location: [place] [address] Tech: Antonieta Greenberg Transcribed By: JOSESITO 12/06/2455 Dictated By: Alfonzo Flores DO 12/06/2454 Signed By: 12/06/24954 Normal [facility] Urea nitrogen [Mass/volume] in Serum or PlasmaOrdered By: Jose Forman on 12-06-2024 Urea nitrogen [Mass/Vol] Urea nitrogen [Mass/volume] in Serum or Plasma 05-11 [facility] Urobilinogen Test strip (U) [Mass/Vol]Ordered By: Jose Forman on 12-06-2024 Urobilinogen (U) [Mass/Vol] Urobilinogen [Mass/volume] in Urine by Test strip Normal [facility] WBC Auto (Bld) [#/Vol]Ordere d By: Jose Forman on 12-06-2024 WBC (Bld) [#/Vol] Leukocytes [#/volume ] in Blood by Automated count 3.8-11.6 [facility] aPTT in Platelet poor plasma by Coagulation assayOrdered By: Jose Forman on 12-06-2024 aPTT Coag (PPP) [Time] Activated partial thromboplastin time (aPTT) in platelet poor plasma by coagulation a 25.1-36.5 [facility] Comment on above: A hematocrit value g reater than 55% may lead to inaccurate results in coagulation testing. Patients having hematocrit values >55% require a special collection tube for coagulation studies. Please contact the laboratory at [phone] for redraw instructions. pH Test strip (U)Ordered By: Jose Forman on 12-06-2024 pH (U) pH of Urine by Test strip 5.0-9.0 [facility] XR chest 2V*on 08-11-2024 XR chest 2V* [facility] [place] [address] XRay Report Signed Patient: Noris Goetz MR#: [id number] 61 : 1990 Acct:[id number] Age/Sex: 34 / F ADM Date: 08/11/24 Loc: XDUCLY Room: Type: [facility] Attending Dr: Melissa Reddy LATEX DIPPER Copies to: Melissa Reddy APRN Ordering Provider: [...] Alfonzo Flores M.D.08/11/2024 9:59 AM Dictation Location: [place] [address] Transcribed By: [facility] 08/11/2459 Dictated By: Alfonzo Flores DO 08/11/24 0958 Signed By: 08/11/2459 Normal [facility] No Panel InformationOrdered By: Derrick Wilson on 08-02-2024 Miscellaneous Pathology Test See comment [facility] Comment on above: See report. Scanned copy available in EMR. Pathology Request for Lab Co rpon 08-02-2024 Pathology Request for Lab Ministerio Normal [facility] Comment on above: Order Comment: PATHO LOGY SKIN SPECIMEN Result Comment: See report. Scanned copy available in EMR. PERFORMED BY: [place] [address] PATHOLOGIST COMMUNICATIONS SENIOR ASSOCIATE JOAN CROWLEY M.D. Performed By: #### P ATH TO [facility] ####[facility] [address] US extremity nonvascularon 0 05-23-2024 US extremity nonvascular [facility] [address] [place] [address] Ultrasound Report Signed Patient: Noris Goetz MR#: [id number] 61 : 1990 Acct:[id number] Age/Sex: 34 / F ADM Date: 05/23/24 Loc: Room: Type: [facility] Attending Dr: Marianela Oliva MD Ordering Provider: [...] Annel Barnhart M.D.05/23/2024 2:18 PM Dictation Location: [place] [address] Tech: Ayleen Hackett Transcribed By: JOSESITO 05/23/24 1418 Dictated By: Annel Barnhart MD 05/23/24 141 Signed By: 05/23/24 1418 Normal [facility] Automated basophil %Ordered By: Mario Perez on 05-17-2024 Basophils/100 WBC (Bld) 0.8 % Normal . [facility] Comment on above: Order Comment: FASTI ARANZA. JKW Performed By: #### P ILLAR TSH, PILLAR CBC, PILLAR BMP, PILLAR LIPID #### [facility] [address] [place] [address] Automated basophil countOrde red By: Mario Perez on 05-17-2024 Basophils (Bld) [#/Vol] 0.0 10*3/uL Normal 0.0-0.2 [facility] Comment on above: Order Comment: FASTI NG. JKW Result Comment: PERF ORMED BY: [place] [address] PATHOLOGIST COMMUNICATIONS SENIOR ASSOCIATE JOAN CROWLEY M.D. Performed By: #### P ILLAR TSH, PILLAR CBC, PILLAR BMP, PILLAR LIPID #### [facility] [address] [place] [address] Automated blood monocyte cou ntOrdered By: Mario Perez on 05-17-2024 Monocytes (Bld) [#/Vol] 0.6 10*3/uL Normal 0.0-0.8 [facility] Comment on above: Order Comment: FASTI NG. JKW Performed By: #### P ILLAR TSH, PILLAR CBC, PILLAR BMP, PILLAR LIPID #### [facility] [address] Automated eosinophil %Ordere d By: Mario Perez on 05-17-2024 Eosinophils/100 WBC (Bld) 5.3 % Normal . [facility] Comment on above: Order Comment: FASTI NG. JKW Performed By: #### P ILLAR TSH, PILLAR CBC, PILLAR BMP, PILLAR LIPID #### [facility] [address] Automated eosinophil countOr dered By: Mario Perez on 05-17-2024 Eosinophils (Bld) [#/Vol] 0.3 10*3/uL Normal 0.0-0.45 [facility] Comment on above: Order Comment: FASTI NG. JKW Performed By: #### P ILLAR TSH, PILLAR CBC, PILLAR BMP, PILLAR LIPID #### [facility] [address] [place] [address] Automated monocyte %Ordered By: Mario Perez on 05-17-2024 Monocytes/100 WBC (Bld) 10.8 % Normal . [facility] Comment on above: Order Comment: FASTI NG. JKW Performed By: #### P ILLAR TSH, PILLAR CBC, PILLAR BMP, PILLAR LIPID #### [facility] [address] Automated neutrophil %Ordere d By: Mario Perez on 05-17-2024 Neutrophils/100 WBC (Bld) 55.1 % Normal . [facility] Comment on above: Order Comment: FASTI NG. JKW Performed By: #### P ILLAR TSH, PILLAR CBC, PILLAR BMP, PILLAR LIPID #### [facility] [address] [place] [address] Calcium [Mass/volume] in Ser um or PlasmaOrdered By: Mario Perez on 05-17-2024 Calcium [Mass/Vol] 8.5 mg/dL Low 8.6-10.[address] [facility] Comment on above: Order Comment: RONNIE HollandKW Performed By: #### P ILLAR TSH, PILLAR CBC, PILLAR BMP, PILLAR LIPID #### [facility] [address] [place] [address] [place] Carbon dioxide, total [Moles /volume] in Serum or PlasmaOrdered By: Mario Perez on 05-17-2024 CO2 [Moles/Vol] 27.7 mmol/L Normal 21.0-31.0 [facility] Comment on above: Order Comment: RONNIE HollandKW Performed By: #### P ILLAR TSH, PILLAR CBC, PILLAR BMP, PILLAR LIPID #### [facility] [address] [place] [address] [place] Chloride [Moles/volume] in S eamon or PlasmaOrdered By: Mario Perez on 05-17-2024 Chloride [Moles/Vol] 109 mmol/L High 98-107 [facility] Comment on above: Order Comment: RONNIE MAURO JKW Performed By: #### P ILLAR TSH, PILLAR CBC, PILLAR BMP, PILLAR LIPID #### [facility] [address] [place] [address] [place] Cholesterol [Mass/volume] in Serum or PlasmaOrdered By: Mario Perez on 05-17-2024 Cholesterol [Mass/Vol] 170 mg/dL Normal 140-200 [facility] Comment on above: Chol less than 200 m g/dl low riskChol 201-239 mg/dl borderline riskChol 240 mg/dl and greater high risk Order Comment: RONNIE HollandKW Result Comment: Chol less than 200 mg/dl low risk Chol 201-239 mg/dl borderline risk Chol 240 mg/dl and greater high risk Performed By: #### P ILLAR TSH, PILLAR CBC, PILLAR BMP, PILLAR LIPID #### [facility] [address] [place] [id number] [place] Cholesterol in LDL Calc [Mas s/Vol]Ordered By: Mario Perez on 05-17-2024 Cholesterol in LDL [Mass/Vol] 109 mg/dL High 0-100 [facility] Comment on above: LDL ATP III CLASSIFI CATIONLDL less than 100 mg/dL OptimalLDL 100-129 mg/dL Near or above optimalLDL 130-159 mg/dL Borderline highLDL 160-189 mg/dL HighLDL greater than 189 mg/dL Very high Cholesterol in VLDL Calc [Ma ss/Vol]Ordered By: Mario Perez on 05-17-2024 Cholesterol in VLDL [Mass/Vol] 10 mg/dL [facility] Creatinine [Mass/volume] in Serum or PlasmaOrdered By: Mario Perez on 05-17-2024 Creatinine [Mass/Vol] 0.73 mg/dL Normal 0.60-1.20 [facility] Comment on above: Order Comment: FASTI NG. JKW Performed By: #### P ILLAR TSH, PILLAR CBC, PILLAR BMP, PILLAR LIPID #### [address] Employee Basic Metabolic [employer] [place] 05-17-2024 GFR/1.73 sq M.predicted MDRD (S/P/Bld) [Vol rate/Area] mL/min/{1.73_m2} Normal [facility] Comment on above: Order Comment: FASTI NG. JKW Performed By: #### P ILLAR TSH, PILLAR CBC, PILLAR BMP, PILLAR LIPID #### [address] Employee Complete Blood Coun [facility] 05-17-2024 Mean Corpuscular HGB Conc 34.2 g/dL Normal 32.0-35.0 [facility] Comment on above: Order Comment: FASTI NG. JKW Performed By: #### P ILLAR TSH, PILLAR CBC, PILLAR BMP, PILLAR LIPID #### [address] NRBC% 0.1 /100{WBC} Normal 0-0.5 [facility] Comment on above: Order Comment: FASTI NG. JKW Performed By: #### P ILLAR TSH, PILLAR CBC, PILLAR BMP, PILLAR LIPID #### [address] Employee Lipid Profileon LDL Cholesterol,Calculated 109 mg/dL High 0-100 [facility] Comment on above: Order Comment: RONNIE GRIMALDO Result Comment: LDL ATP III CLASSIFICATION LDL less than 100 mg/dL Optimal LDL 100-129 mg/dL Near or above optimal LDL 130-159 mg/dL Borderline high LDL 160-189 mg/dL High LDL greater than 189 mg/dL Very high Performed By: #### P ILLAR TSH, PILLAR CBC, PILLAR BMP, PILLAR LIPID #### [facility] [address] Triglyceride w/Reflex 52 mg/dL Normal 0-149 [facility] Comment on above: Order Comment: RONNIE GRIMALDO Result Comment: TRIG ATP III CLASSIFICATION TRIG less than 150 mg/dL Normal TRIG 150-199 mg/dL Borderline high TRIG 200-500 mg/dL High TRIG greater than 500 mg/dL Very high Standard traceable to the Center for Disease Conrtrol and Prevention (CDC) test method. Performed By: #### P ILLAR TSH, PILLAR CBC, PILLAR BMP, PILLAR LIPID #### [address] VLDL CHOLESTEROL 10 mg/dL Normal [facility] Comment on above: Order Comment: RONNIE GRIMALDO Performed By: #### P ILLAR TSH, PILLAR CBC, PILLAR BMP, PILLAR LIPID #### [address] Employee Thyroid Stim Hormon paulo 05-17-2024 Employee Thyroid Stim Hormone 1.90 u[iU]/mL Normal 0.45-5.33 [facility] Comment on above: Order Comment: RONNIE PEPEW Result Comment: PERF ORMED BY: [place] [address] PATHOLOGIST COMMUNICATIONS SENIOR ASSOCIATE JOAN CROWLEY M.D. Performed By: #### P ILLAR TSH, PILLAR CBC, PILLAR BMP, PILLAR LIPID #### [address] Erythrocyte distribution wid th [Ratio] by Automated countOrdered By: Mario Perez on 05-17-2024 Erythrocyte distribution width (RBC) [Ratio] 13.7 % Normal 11.9-15.3 [facility] Comment on above: Order Comment: FASTI NG. JKW Performed By: #### P ILLAR TSH, PILLAR CBC, PILLAR BMP, PILLAR LIPID #### [facility] [address] [place] [address] [place] Erythrocytes [#/volume] in B lood by Automated countOrdered By: Mario Perez on 05-17-2024 RBC (Bld) [#/Vol] 4.62 10*6/uL Normal 3.60-5.00 [facility] Comment on above: Order Comment: FASTI NG. JKW Performed By: #### P ILLAR TSH, PILLAR CBC, PILLAR BMP, PILLAR LIPID #### [facility] [address] [place] [address] [place] Glucose [Mass/volume] in Ser um or PlasmaOrdered By: Mario Perez on 05-17-2024 Glucose [Mass/Vol] 95 mg/dL Normal 70-[address] [facility] Comment on above: Order Comment: FASTI NG. JKW Performed By: #### P ILLAR TSH, PILLAR CBC, PILLAR BMP, PILLAR LIPID #### [facility] [address] [place], [place] [id number] [place] Hematocrit [Volume Fraction] of Blood by Automated countOrdered By: Mario Perez on 05-17-2024 Hematocrit (Bld) [Volume fraction] 36.7 % Normal 34.0-46.4 [facility] Comment on above: Order Comment: FASTI NG. JKW Performed By: #### P ILLAR TSH, PILLAR CBC, PILLAR BMP, PILLAR LIPID #### [facility] [address] [id number] [place] Hemoglobin [Mass/volume] in BloodOrdered By: Mario Perez on 05-17-2024 Hemoglobin (Bld) [Mass/Vol] 12.6 g/dL Normal 11.8-15.4 [facility] Comment on above: Order Comment: FASTI NG. JKW Performed By: #### P ILLAR TSH, PILLAR CBC, PILLAR BMP, PILLAR LIPID #### [facility] [address] Leukocytes [#/volume] correc randolph for nucleated erythrocytes in Blood by Automated counOrdered By: Mario Perez on 05-17-2024 WBC corrected for nucl RBC Auto (Bld) [#/Vol] 5.1 10*3/uL 3.8-11.6 [facility] Leukocytes [#/volume] in Blo od by Automated countOrdered By: Mario Perez on 05-17-2024 WBC (Bld) [#/Vol] 5.1 10*3/uL Normal 3.8-11.[address] [facility] Comment on above: Order Comment: FASTI ARANZA. JKW Performed By: #### P ILLAR TSH, PILLAR CBC, PILLAR BMP, PILLAR LIPID #### [facility] [address] [place] [address] [place] Lymphocytes [#/volume] in Bl ood by Automated countOrdered By: Mario Perez on 05-17-2024 Lymphocytes (Bld) [#/Vol] 1.4 10*3/uL Normal 1.00-4.8 [facility] Comment on above: Order Comment: FASTI ARANZA. JKW Performed By: #### P ILLAR TSH, PILLAR CBC, PILLAR BMP, PILLAR LIPID #### [facility] [address] [place] [address] [place] Lymphocytes/100 leukocytes i n Blood by Automated countOrdered By: Mario Perez on 05-17-2024 Lymphocytes/100 WBC (Bld) 28.0 % Normal . [facility] Comment on above: Order Comment: FASTI NG. JKW Performed By: #### P ILLAR TSH, PILLAR CBC, PILLAR BMP, PILLAR LIPID #### [facility] [address] [place] [address] [place] MCH [Entitic mass] by Automa randolph countOrdered By: Mario Perez on 05-17-2024 MCH (RBC) [Entitic mass] 27.2 pg Normal 24.7-34.3 [facility] Comment on above: Order Comment: FASTI NG. JKW Performed By: #### P ILLAR TSH, PILLAR CBC, PILLAR BMP, PILLAR LIPID #### [facility] [address] MCHC Auto (RBC) [Mass/Vol]Or dered By: Mario Perez on 05-17-2024 MCHC (RBC) [Mass/Vol] 34.2 g/dL 32.0-35.0 [facility] MCV [Entitic volume] by Auto mated countOrdered By: Mario Perez on 05-17-2024 MCV (RBC) [Entitic vol] 79.4 fL Low 80-100 [facility] Comment on above: Order Comment: RONNIE PEPEW Performed By: #### P ILLAR TSH, PILLAR CBC, PILLAR BMP, PILLAR LIPID #### [facility] [address] [place] [address] Neutrophils [#/volume] in Bl ood by Automated countOrdered By: Mario Perez on 05-17-2024 Neutrophils (Bld) [#/Vol] 2.8 10*3/uL Normal 1.8-7.7 [facility] Comment on above: Order Comment: RONNIE GRIMALDO Performed By: #### P ILLAR TSH, PILLAR CBC, PILLAR BMP, PILLAR LIPID #### [facility] [address] [place] [address] No Panel InformationOrdered By: Mario Perez on 05-17-2024 Estimated GFR (CKD-EPI) > 60.0 mL/Min [facility] Creatinine Clearance (Chem N/A [facility] Nucleated erythrocytes [Pres ence] in Blood by Automated countOrdered By: Mario Perez on 05-17-2024 Nucleated RBC Auto Ql (Bld) 0.1 /100{WBC} 0-0.5 [facility] Platelet mean volume [Entiti c volume] in Blood by Automated countOrdered By: Mario Perez on 05-17-2024 Platelet mean volume (Bld) [Entitic vol] 8.9 fL Normal 6.3-10.7 [facility] Comment on above: Order Comment: FASTI NG. JKW Performed By: #### P ILLAR TSH, PILLAR CBC, PILLAR BMP, PILLAR LIPID #### [facility] [address] Platelets [#/volume] in Bloo d by Automated countOrdered By: Mario Perez on 05-17-2024 Platelets (Bld) [#/Vol] 192 10*3/uL Normal 150-450 [facility] Comment on above: Order Comment: FASTI NG. JKW Performed By: #### P ILLAR TSH, PILLAR CBC, PILLAR BMP, PILLAR LIPID #### [facility] [address] [place] [address] Potassium [Moles/volume] in Serum or PlasmaOrdered By: Mario Perez on 05-17-2024 Potassium [Moles/Vol] 3.9 mmol/L Normal 3.5-5.1 [facility] Comment on above: Order Comment: FASTI NG. JKW Performed By: #### P ILLAR TSH, PILLAR CBC, PILLAR BMP, PILLAR LIPID #### [facility] [address] [place] [address] Serum or plasma anion gap de terminationOrdered By: Mario Perez on 05-17-2024 Anion gap [Moles/Vol] 7.2 mmol/L Normal 6.0-15.0 [facility] Comment on above: Order Comment: FASTI NG. JKW Performed By: #### P ILLAR TSH, PILLAR CBC, PILLAR BMP, PILLAR LIPID #### [facility] [address] [place] [address] Serum or plasma high density lipoprotein (HDL) cholesterol measurementOrdered By: Mario Perez on 05-17-2024 Cholesterol in HDL [Mass/Vol] 51 mg/dL Normal 23-92 [facility] Comment on above: HDL CHOL ATP-III CLA SSIFICATION Cardiovascular RiskHDL > or equal to 60 mg/dL LOWHDL < 40 mg/dL HIGH Order Comment: FASTI NG. JKW Result Comment: HDL CHOL ATP-III CLASSIFICATION Cardiovascular Risk HDL > or equal to 60 mg/dL LOW HDL < 40 mg/dL HIGH Performed By: #### P ILLAR TSH, PILLAR CBC, PILLAR BMP, PILLAR LIPID #### [facility] [address] Serum or plasma total choles terol/high density lipoprotein (HDL) cholesterol mass ratOrdered By: Mario Perez on 05-17-2024 Cholesterol.total/Chol esterol in HDL [Mass ratio] 3.3 {ratio} Normal <5.0 [facility] Comment on above: Order Comment: RONNIE HollandKW Performed By: #### P ILLAR TSH, PILLAR CBC, PILLAR BMP, PILLAR LIPID #### [facility] [address] [place] [address] [place] Sodium [Moles/volume] in Ser um or PlasmaOrdered By: Mario Perez on 05-17-2024 Sodium [Moles/Vol] 140 mmol/L Normal 136-[address] [facility] Comment on above: Order Comment: RONNIE HollandKW Performed By: #### P ILLAR TSH, PILLAR CBC, PILLAR BMP, PILLAR LIPID #### [facility] [address] Thyrotropin [Units/volume] i n Serum or PlasmaOrdered By: Mario Perez on 05-17-2024 TSH Qn 1.90 m[IU]/L 0.45-5.33 [facility] Triglyceride [Mass/volume] i n Serum or PlasmaOrdered By: Mario Perez on 05-17-2024 Triglyceride [Mass/Vol] 52 mg/dL 0-149 [facility] Comment on above: TRIG ATP III CLASSIF ICATIONTRIG less than 150 mg/dL NormalTRIG 150-199 mg/dL Borderline highTRIG 200-500 mg/dL High TRIG greater than 500 mg/dL Very highStandard traceable to the Center for Disease Conrtrol and Prevention (CDC) test method. Urea nitrogen [Mass/volume] in Serum or PlasmaOrdered By: Mario Perez on 05-17-2024 Urea nitrogen [Mass/Vol] 15 mg/dL Normal 7-25 [facility] Comment on above: Order Comment: RONNIE HollandKW Performed By: #### P ILLAR TSH, PILLAR CBC, PILLAR BMP, PILLAR LIPID #### [facility] [address] Alanine aminotransferase [En zymatic activity/volume] in Serum or PlasmaOrdered By: Mario Perez on 07-12-2023 ALT [Catalytic activity/Vol] 14 U/L 7-52 [facility] Albumin [Mass/volume] in Ser um or Plasma by Bromocresol green (BCG) dye binding methoOrdered By: Mario Perez on 07-12-2023 Albumin BCG dye [Mass/Vol] 4.2 g/dL 3.5-5.7 [facility] Alkaline phosphatase [Enzyma tic activity/volume] in Serum or PlasmaOrdered By: Mario Perez on 07-12-2023 ALP [Catalytic activity/Vol] 45 U/L 34-104 [facility] Aspartate aminotransferase [ Enzymatic activity/volume] in Serum or PlasmaOrdered By: Mario Perez on 07-12-2023 AST [Catalytic activity/Vol] 15 U/L 13-39 [facility] Bilirubin.total [Mass/volume ] in Serum or PlasmaOrdered By: Mario Perez on 07-12-2023 Bilirubin [Mass/Vol] 0.4 mg/dL 0.3-1.0 [facility] Calcium [Mass/volume] in Ser um or PlasmaOrdered By: Mario Perez on 07-12-2023 Calcium [Mass/Vol] 8.9 mg/dL 8.6-10.[address] [facility] Carbon dioxide, total [Moles /volume] in Serum or PlasmaOrdered By: Mairo Perez on 07-12-2023 CO2 [Moles/Vol] 28.7 mmol/L 21.0-31.0 [facility] Chloride [Moles/volume] in S eamon or PlasmaOrdered By: Mario Perez on 07-12-2023 Chloride [Moles/Vol] 106 mmol/L 98-107 [facility] Cholesterol [Mass/volume] in Serum or PlasmaOrdered By: Mario Perez on 07-12-2023 Cholesterol [Mass/Vol] 194 mg/dL 140-200 [facility] Comment on above: Chol less than 200 m g/dl low riskChol 201-239 mg/dl borderline riskChol 240 mg/dl and greater high risk Cholesterol in LDL Calc [Mas s/Vol]Ordered By: Mario Perez on 07-12-2023 Cholesterol in LDL [Mass/Vol] 119 mg/dL 0-100 [facility] Comment on above: LDL ATP III CLASSIFI CATIONLDL less than 100 mg/dL OptimalLDL 100-129 mg/dL Near or above optimalLDL 130-159 mg/dL Borderline highLDL 160-189 mg/dL HighLDL greater than 189 mg/dL Very high Cholesterol in VLDL Calc [Ma ss/Vol]Ordered By: Mario Perez on 07-12-2023 Cholesterol in VLDL [Mass/Vol] 12 mg/dL [facility] Creatinine [Mass/volume] in Serum or PlasmaOrdered By: Mario Perez on 07-12-2023 Creatinine [Mass/Vol] 0.78 mg/dL 0.60-1.20 [facility] Globulin Calc (S) [Mass/Vol] Ordered By: Mario Perez on 07-12-2023 Globulin (S) [Mass/Vol] 2.2 g/dL [facility] Glucose [Mass/volume] in Ser um or PlasmaOrdered By: Mario Perez on 07-12-2023 Glucose [Mass/Vol] 99 mg/dL 70-[address] [facility] No Panel InformationOrdered By: Mario Perez on 07-12-2023 Estimated GFR (CKD-EPI) > 60.0 mL/Min [facility] Creatinine Clearance (Chem N/A [facility] Potassium [Moles/volume] in Serum or PlasmaOrdered By: Mario Perez on 07-12-2023 Potassium [Moles/Vol] 4.3 mmol/L 3.5-5.1 [facility] Protein [Mass/volume] in Ser um or PlasmaOrdered By: Mario Perez on 07-12-2023 Protein [Mass/Vol] 6.4 g/dL 6.4-8.[address] [facility] Serum or plasma albumin/glob ulin mass ratioOrdered By: Mario Perez on 07-12-2023 Albumin/Globulin [Mass ratio] 1.9 {ratio} [facility] Serum or plasma anion gap de terminationOrdered By: Mario Perez on 07-12-2023 Anion gap [Moles/Vol] 8.6 mmol/L 6.0-15.0 [facility] Serum or plasma high density lipoprotein (HDL) cholesterol measurementOrdered By: Mario Perez on 07-12-2023 Cholesterol in HDL [Mass/Vol] 63 mg/dL 23-92 [facility] Comment on above: HDL CHOL ATP-III CLA SSIFICATION Cardiovascular RiskHDL > or equal to 60 mg/dL LOWHDL < 40 mg/dL HIGH Serum or plasma total choles terol/high density lipoprotein (HDL) cholesterol mass ratOrdered By: Mario Perez on 07-12-2023 Cholesterol.total/Chol esterol in HDL [Mass ratio] 3.1 {ratio} <5.0 [facility] Sodium [Moles/volume] in Ser um or PlasmaOrdered By: Mario Perez on 07-12-2023 Sodium [Moles/Vol] 139 mmol/L 136-[address] [facility] Triglyceride [Mass/volume] i n Serum or PlasmaOrdered By: Mario Perez on 07-12-2023 Triglyceride [Mass/Vol] 61 mg/dL 0-149 [facility] Comment on above: TRIG ATP III CLASSIF ICATIONTRIG less than 150 mg/dL NormalTRIG 150-199 mg/dL Borderline highTRIG 200-500 mg/dL High TRIG greater than 500 mg/dL Very highStandard traceable to the Center for Disease Conrtrol and Prevention (CDC) test method. Urea nitrogen [Mass/volume] in Serum or PlasmaOrdered By: Mario Perez on 07-12-2023 Urea nitrogen [Mass/Vol] 13 mg/dL 05-11 [facility] Human papilloma virus 16+18+ 31+33+35+39+45+51+52+56+58+59+66+68 DNA [Presence] in CerOrdered By: MARISSA GARCIA on 12-15-2022 HPV 16+18+31+33+35+39+45+5 1+52+56+58+59+66+68 DNA Probe+sig amp Ql (Cvx) Negative Negative [facility] Comment on above: This nucleic acid am plification test detects fourteen high- risk HPV types (16,18,31,33,35,39,45,51,52,56,58,59,66,68)without differentiation.Performed at: - [facility], [place] [id number] Director: Azalea Quezada MD, Phone: [phone] at: = - [facility], [place] [id number] Director: Azalea Quezada MD, Phone: [phone] No Panel InformationOrdered By: MARISSA GARCIA on 12-15-2022 IG Pap w/Ct-Ng & HPV Rflx (Off-Site Note . [facility] Comment on above: TESTS RESULT FLAG UN ITS REF RANGE LAB Clinician Provided Cytology Information No. of containers..01 ThinPrep VialDIAGNOSIS: 01 NEGATIVE FOR INTRAEPITHELIAL LESION OR MALIGNANCY.Specimen adequacy: 01 Satisfactory for evaluation. Endocervical and/or squamous metaplastic cells (endocervical component) are present.Performed by: Balbir Garcia, Marble Cutter Operator ([facility]). 01Note: Note 01 The Pap smear is [...] Low,>-Panic High,A-Abnormal,AA-Critical Abnormal -----Performed at:[address] [facility] [address] [facility] [address] Azalea Quezada MD, Albumin [Mass/volume] in Ser um or PlasmaOrdered By: Marianela Oliva on 06-26-2022 Albumin [Mass/Vol] 3.8 g/dL 3.2-5.[address] [facility] Basophils Auto (Bld) [#/Vol] Ordered By: Marianela Oliva on 06-26-2022 Basophils (Bld) [#/Vol] 0.0 10*3/uL 0.0-0.2 [facility] Basophils/100 WBC Auto (Bld) Ordered By: Marianela Oliva on 06-26-2022 Basophils/100 WBC (Bld) 0.7 % . [facility] Cholesterol [Mass/volume] in Serum or PlasmaOrdered By: Marianela Oliva on 06-26-2022 Cholesterol [Mass/Vol] 177 mg/dL 140-200 [facility] Comment on above: Chol less than 200 m g/dl low riskChol 201-239 mg/dl borderline riskChol 240 mg/dl and greater high risk Cholesterol in LDL Calc [Mas s/Vol]Ordered By: Marianela Oliva on 06-26-2022 Cholesterol in LDL [Mass/Vol] 118 mg/dL 0-100 [facility] Comment on above: LDL ATP III CLASSIFI CATIONLDL less than 100 mg/dL OptimalLDL 100-129 mg/dL Near or above optimalLDL 130-159 mg/dL Borderline highLDL 160-189 mg/dL HighLDL greater than 189 mg/dL Very high Cholesterol in VLDL Calc [Ma ss/Vol]Ordered By: Marianela Oliva on 06-26-2022 Cholesterol in VLDL [Mass/Vol] 10 mg/dL [facility] Creatinine and Glomerular fi ltration rate.predicted panel (S/P/Bld)Ordered By: Marianela Oliva on 06-26-2022 Creatinine [Mass/Vol] 0.77 mg/dL 0.44-1.03 [facility] Eosinophils Auto (Bld) [#/Vo l]Ordered By: Marianela Oliva on 06-26-2022 Eosinophils (Bld) [#/Vol] 0.2 10*3/uL 0.0-0.45 [facility] Eosinophils/100 WBC Auto (Bl d)Ordered By: Marianela Oliva on 06-26-2022 Eosinophils/100 WBC (Bld) 4.1 % . [facility] Erythrocyte distribution wid th Auto (RBC) [Ratio]Ordered By: Marianela Oliva on 06-26-2022 Erythrocyte distribution width (RBC) [Ratio] 13.1 % 11.9-15.3 [facility] Estimated glomerular filtrat ion rate (GFR) non- AmericanOrdered By: Marianela Oliva on 06-26-2022 GFR/1.73 sq M.predicted among non-blacks MDRD (S/P/Bld) [Vol rate/Area] > 60 mL/Min [facility] Globulin Calc (S) [Mass/Vol] Ordered By: Marianela Oliva on 06-26-2022 Globulin (S) [Mass/Vol] 2.3 g/dL [facility] Hematocrit Auto (Bld) [Volum e fraction]Ordered By: Marianela Oliva on 06-26-2022 Hematocrit (Bld) [Volume fraction] 38.9 % 34.0-46.4 [facility] Hemoglobin [Mass/volume] in BloodOrdered By: Marianela Oliva on 06-26-2022 Hemoglobin (Bld) [Mass/Vol] 13.1 g/dL 11.8-15.4 [facility] Laboratory - Chemistry and C hemistry - challengeOrdered By: Marianela Oliva on 06-26-2022 Glucose [Mass/Vol] 98 mg/dL 70-[address] [facility] Laboratory - Hematology and Cell countsOrdered By: Marianela Oliva on 06-26-2022 Nucleated RBC/100 WBC (Bld) [Ratio] 0.0 % 0-0.5 [facility] Leukocytes [#/volume] in Blo od by Automated countOrdered By: Marianela Oliva on 06-26-2022 WBC (Bld) [#/Vol] 4.3 10*3/uL 4.5-11.[address] [facility] Lymphocytes Auto (Bld) [#/Vo l]Ordered By: Marianela Oliva on 06-26-2022 Lymphocytes (Bld) [#/Vol] 1.5 10*3/uL 1.00-4.8 [facility] Lymphocytes/100 WBC Auto (Bl d)Ordered By: Marianela Oliva on 06-26-2022 Lymphocytes/100 WBC (Bld) 35.2 % . [facility] MCH Auto (RBC) [Entitic mass ]Ordered By: Marianela Oliva on 06-26-2022 MCH (RBC) [Entitic mass] 27.3 pg 24.7-34.3 [facility] MCHC Auto (RBC) [Mass/Vol]Or dered By: Marianela Oliva on 06-26-2022 MCHC (RBC) [Mass/Vol] 33.7 g/dL 32.0-35.0 [facility] MCV Auto (RBC) [Entitic vol] Ordered By: Marianela Oliva on 06-26-2022 MCV (RBC) [Entitic vol] 81.1 fL 80-100 [facility] Monocyte %Ordered By: Marianela Oliva on 06-26-2022 Monocyte % 52 mg/dL 35-149 [facility] Comment on above: TRIG ATP III CLASSIF ICATIONTRIG less than 150 mg/dL NormalTRIG 150-199 mg/dL Borderline highTRIG 200-500 mg/dL High TRIG greater than 500 mg/dL Very highStandard traceable to the Center for Disease Conrtrol and Prevention (CDC) test method. Monocytes Auto (Bld) [#/Vol] Ordered By: Marianela Oliva on 06-26-2022 Monocytes (Bld) [#/Vol] 0.5 10*3/uL 0.0-0.8 [facility] Monocytes/100 WBC Auto (Bld) Ordered By: Marianela Oliva on 06-26-2022 Monocytes/100 WBC (Bld) 11.0 % . [facility] Neutrophils Auto (Bld) [#/Vo l]Ordered By: Marianela Oliva on 06-26-2022 Neutrophils (Bld) [#/Vol] 2.1 10*3/uL 1.8-7.7 [facility] Neutrophils/100 WBC Auto (Bl d)Ordered By: Marianela Oliva on 06-26-2022 Neutrophils/100 WBC (Bld) 49.0 % . [facility] No Panel InformationOrdered By: Marianela Oliva on 06-26-2022 Estimated GFR () > 60 mL/Min [facility] Comment on above: GFR estimated refere nce range: According to KDOQI guidelines, <60 ml/min/1.73m2 is sufficient to diagnose a patient with chronic kidney disease. Nicotine Metabolite Negative Cutoff=25 [facility] Comment on above: Performed at: [address] [id number] Director: George García MD, Phone: [phone] Pharmacy Creatinine Clearance (Chem N/A [facility] Platelet mean volume Auto (B ld) [Entitic vol]Ordered By: Marianela Oliva on 06-26-2022 Platelet mean volume (Bld) [Entitic vol] 9.7 fL 6.3-10.7 [facility] Platelets Auto (Bld) [#/Vol] Ordered By: Marianela Oliva on 06-26-2022 Platelets (Bld) [#/Vol] 191 10*3/uL 150-450 [facility] Protein [Mass/volume] in Ser um or PlasmaOrdered By: Marianela Oliva on 06-26-2022 Protein [Mass/Vol] 6.1 g/dL 6.1-7.[address] [facility] RBC Auto (Bld) [#/Vol]Ordere d By: Marianela Oliva on 06-26-2022 RBC (Bld) [#/Vol] 4.80 10*6/uL 3.60-5.00 [facility] Serum or plasma alanine carvalho otransferase measurement without P-5'-P (enzymatic activiOrdered By: Marianela Oliva on 06-26-2022 ALT No additional P-5'-P [Catalytic activity/Vol] 17 U/L 10-60 [facility] Serum or plasma albumin/glob ulin mass ratioOrdered By: Marianela Oliva on 06-26-2022 Albumin/Globulin [Mass ratio] 1.7 {ratio} [facility] Serum or plasma alkaline rad sphatase measurement (enzymatic activity/volume)Ordered By: Marianela Oliva on 06-26-2022 ALP [Catalytic activity/Vol] 46 U/L 32-92 [facility] Serum or plasma anion gap de terminationOrdered By: Marianela Oliva on 06-26-2022 Anion gap [Moles/Vol] 8.1 mmol/L 6.0-15.0 [facility] Serum or plasma aspartate am inotransferase measurement (enzymatic activity/volume)Ordered By: Marianela Oliva on 06-26-2022 AST [Catalytic activity/Vol] 18 U/L 10-42 [facility] Serum or plasma calcium richy urement (mass/volume)Ordered By: Marianela Oliva on 06-26-2022 Calcium [Mass/Vol] 9.0 mg/dL 8.2-10.[address] [facility] Serum or plasma chloride alma surement (moles/volume)Ordered By: Marianela Oliva on 06-26-2022 Chloride [Moles/Vol] 106 mmol/L 95-114 [facility] Serum or plasma high density lipoprotein (HDL) cholesterol measurementOrdered By: Marianela Oliva on 06-26-2022 Cholesterol in HDL [Mass/Vol] 49 mg/dL 35-85 [facility] Comment on above: HDL CHOL ATP-III CLA SSIFICATION Cardiovascular RiskHDL > or equal to 60 mg/dL LOWHDL < 40 mg/dL HIGH Serum or plasma potassium me asurement (moles/volume)Ordered By: Marianela Oliva on 06-26-2022 Potassium [Moles/Vol] 4.1 mmol/L 3.5-5.1 [facility] Serum or plasma sodium measu rement (moles/volume)Ordered By: Marianela Oliva on 06-26-2022 Sodium [Moles/Vol] 137 mmol/L 136-[address] [facility] Serum or plasma total biliru bin measurement (mass/volume)Ordered By: Marianela Oliva on 06-26-2022 Bilirubin [Mass/Vol] 0.6 mg/dL 0.3-1.2 [facility] Serum or plasma total carbon dioxide measurement (moles/volume)Ordered By: Marianela Oliva on 06-26-2022 CO2 [Moles/Vol] 27.0 mmol/L 22.0-30.0 [facility] Serum or plasma total choles terol/high density lipoprotein (HDL) cholesterol mass ratOrdered By: Marianela Oliva on 06-26-2022 Cholesterol.total/Chol esterol in HDL [Mass ratio] 3.6 {ratio} <5.0 [facility] Serum or plasma urea nitroge n measurement (mass/volume)Ordered By: Marianela Oliva on 06-26-2022 Urea nitrogen [Mass/Vol] 14 mg/dL 07-10 [facility] TSH DL <= 0.005 mIU/L QnOrde red By: Marianela Oliva on 06-26-2022 TSH Qn 1.33 m[IU]/L 0.45-5.33 [facility] Dipstick & Microscopicon Dipstick & Microscopic No rt [employer] Other Urine 10 SGon 01-07-2022 Albumin DL <= 20 mg/L (U) [Mass/Vol] 100 mg/dL [employer] Other Albumin DL <= 20 mg/L (U) [Mass/Vol] Large [employer] Other pH (U) 6.0 [pH] [employer] Other Urine 10 SG Negative [employer] Other Urine 10 SG 1.030 [employer] Other Urine 10 SG Large [employer] Other Urine 10 SG 0.2 [employer] Other Urine 10 SG Positive [employer] Other Urine Cultureon 01-07-2022 Urine Culture >100,000 [employer] Other Urine Culture <16 Susceptible [facility] Other Urine Culture <8 Susceptible [facility] Other Urine Culture <4 Susceptible [facility] Other Urine Culture <2 Susceptible [facility] Other Urine Culture <1 Susceptible [facility] Other Urine Culture <0.5 Susceptible [facility] Other Urine Culture <32 Susceptible [facility] Other Urine Culture <2/38 Susceptible [facility] Other Cult,Urine,CCon 12-24-2018 Cult,Urine,CC Specimen Description .URINE Special Requests .CLEAN CATCH URINE Culture NO GROWTH Report Status FINAL 12/24/2018 Normal [facility] Comment on above: Performed By: #### C PDAU #### [address] [place] [address] Chlamydia/GC DNA, Uron 12-23 Protein mass conc Negative Normal NEG [facility] Comment on above: Result Comment: NEIS [...] target. Performed By: #### C PDAU #### [address] [place] [address] Result Comment: CHLA MYDIA TRACHOMATIS DNA [...] Ag/Abon 12-23-2018 HIV Ag/Ab NONREACTIVE Normal NR [facility] Comment on above: Result Comment: No l aboratory evidence of HIV infection. If acute HIV infection is suspected, consider testing for HIV-1 RNA. Performed By: #### C PDAU #### [address] [place] [address] Hep C Abon 12-23-2018 Hep C Ab NONREACTIVE Normal [facility] Comment on above: Result Comment: The hepatitis [...] PCR. Performed By: #### C PDAU #### [address] [place] [address] Profileon 9 T.pallidum Ab Screen NONREACTIVE Normal [facility] Comment on above: Result Comment: T. pallidum antibodies are not detected. There is no serological evidence of infection with T. pallidum (early primary syphilis cannot be excluded). Retest in 2-4 weeks if syphilis is clinically suspect. Performed By: #### C PDAU #### [address] [place] [address] Hep B Surf Ag NONREACTIVE Normal [facility] Comment on above: Performed By: #### C PDAU #### [address] [place] [address] Rubella Ab, IgG 52.3 IU/mL Normal [facility] Comment on above: Result Comment: REFERENCE RANGE: <5.0 NON-REACTIVE (non-immune) 5.0 TO 9.9 EQUIVOCAL >=10.0 REACTIVE (immune) Performed By: #### C PDAU #### [address] [place] [address] Profileon 9 Abs. Basophil <0.03 Normal 0.00-0.20 [facility] Comment on above: Performed By: #### C PDAU #### [address] [place] [address] Abs.Imm.Granulocyte 0.04 k/uL Normal 0.00-0.30 [facility] Comment on above: Performed By: #### C PDAU #### [address] [place] [address] Abs.Neutrophil (Seg) 4.44 k/uL Normal 1.50-8.10 [facility] Comment on above: Performed By: #### C PDAU #### [address] [place] [address] Basophils/100 WBC (Bld) 0 % Normal 0-2 [facility] Comment on above: Performed By: #### C PDAU #### [address] [place] [facility]83 Eosinophils #/vol (Bld) 0.08 10*3/uL Normal 0.00-0.44 [facility] Comment on above: Performed By: #### C PDAU #### [address] [place], [place] [address] Eosinophils/100 WBC (Bld) 1 % Normal 1-4 [facility] Comment on above: Performed By: #### C PDAU #### [address] [place], [facility]83 Erythrocyte distribution width Ratio (RBC) 13.2 % Normal 11.8-14.4 [facility] Comment on above: Performed By: #### C PDAU #### [address] [place] [address] Hematocrit Volume Fraction (Bld) 35.3 % Low 36.3-47.1 [facility] Comment on above: Performed By: #### C PDAU #### [address] [place] [facility]83 Hemoglobin mass conc (Bld) 11.4 g/dL Low 11.9-15.1 [facility] Comment on above: Performed By: #### C PDAU #### [address] [place], [place] [address] Immature granulocytes #/vol (Bld) 1 % High 0 [facility] Comment on above: Performed By: #### C PDAU #### [address] [place] [address] Lymphocytes #/vol (Bld) 1.70 10*3/uL Normal 1.10-3.70 [facility] Comment on above: Performed By: #### C PDAU #### [address] [place], [facility]83 Lymphocytes/100 WBC (Bld) 25 % Normal 24-43 [facility] Comment on above: Performed By: #### C PDAU #### [address] [place], [place] [address] MCH Entitic mass (RBC) 26.5 pg Normal 25.2-33.5 [facility] Comment on above: Performed By: #### C PDAU #### [address] [place], [place] [address] MCHC mass conc (RBC) 32.3 g/dL Normal 28.4-34.8 [facility] Comment on above: Performed By: #### C PDAU #### [address] [place] [address] MCV Entitic volume (RBC) 82.1 fL Low 82.6-102.9 [facility] Comment on above: Performed By: #### C PDAU #### [address] [place] [address] Monocytes #/vol (Bld) 0.66 10*3/uL Normal 0.10-1.20 [facility] Comment on above: Performed By: #### C PDAU #### [address] [place] [address] Monocytes/100 WBC (Bld) 10 % Normal 3-12 [facility] Comment on above: Performed By: #### C PDAU #### [address] [place] [address] Neutrophil (Seg) 63 % Normal 36-65 [facility] Comment on above: Performed By: #### C PDAU #### [address] [place] [address] NRBC Automated 0.0 per 100 WBC Normal 0.0 [facility] Comment on above: Performed By: #### C PDAU #### [address] [place] [address] Platelet mean volume Entitic volume (Bld) 10.8 fL Normal 8.1-13.5 [facility] Comment on above: Performed By: #### C PDAU #### [address] [place] [address] Platelets #/vol (Bld) 298 10*3/uL Normal 138-453 [facility] Comment on above: Performed By: #### C PDAU #### [address] [place] [address] RBC #/vol (Bld) 4.30 10*6/uL Normal 3.95-5.11 [facility] Comment on above: Performed By: #### C PDAU #### [address] [place] [address] WBC #/vol (Bld) 6.9 10*3/uL Normal 3.5-11.3 [facility] Comment on above: Performed By: #### C PDAU #### [address] [place] [address] Auto Diff Performed NOT REPORTED Normal [facility] Comment on above: Performed By: #### C PDAU #### [address] [place] [address] Platelets #/vol (Bld) NOT REPORTED Normal [facility] Comment on above: Performed By: #### C PDAU #### [address] [place] [address] RBC morphology finding Nom (Bld) NOT REPORTED Normal [facility] Comment on above: Performed By: #### C PDAU #### [address] [place] [address] WBC Morphology NOT REPORTED Normal [facility] Comment on above: Performed By: #### C PDAU #### [address] [place] [address] Type + Scrnon 12-22 Type + Scrn Negative Normal [facility] Comment on above: Performed By: #### C PDAU #### [address] [place] [address] Toxicology Scree, Urineon Amphetamine(s),Ur Negative Normal NEG [facility] Comment on above: Performed By: #### C PDAU #### [address] [place] [address] Barbiturate(s),Ur Negative Normal NEG [facility] Comment on above: Performed By: #### C PDAU #### [address] [place] [address] Benzodiazepine(s) Negative Normal NEG [facility] Comment on above: Performed By: #### C PDAU #### [address] [place] [address] Buprenorphrine, Ur Negative Normal NEG [facility] Comment on above: Performed By: #### C PDAU #### [address] [place] [address] Cannabinoid(s),Ur Negative Normal [facility] [place] [facility] Comment on above: Performed By: #### C PDAU #### [address] [place] [address] Cocaine Metabolite Negative Normal [facility] Comment on above: Performed By: #### C PDAU #### [address] [place] [address] Methadone Ql (U) Negative Normal [facility] Comment on above: Performed By: #### C PDAU #### [address] [place] [address] Methamphetamine, Ur Negative Normal [facility] Comment on above: Performed By: #### C PDAU #### [address] [place] [address] Opiate(s), Ur Negative Normal [facility] Comment on above: Performed By: #### C PDAU #### [address] [place] [address] Oxycodone, Urine Negative Normal [facility] Comment on above: Performed By: #### C PDAU #### [address] [place] [address] Phencyclidine, Ur Negative Normal [facility] [place] [facility] Comment on above: Performed By: #### C PDAU #### [address] [place] [address] Protein mass conc (U) Negative Normal [facility] Comment on above: Performed By: #### C PDAU #### [address] [place] [address] Tricyclic antidepressants Screen Ql (U) Negative Normal [facility] Comment on above: Result Comment: Drug screen results are to be used for medical purposes only. All positive results are unconfirmed. Testing for employment or legal uses should be sent to a reference laboratory for confirmation. Performed By: #### C PDAU #### [address] [place] [address] Interpretive Info NOT REPORTED Normal [facility] Comment on above: Performed By: #### C PDAU #### [address] [place] [address] MDMA, Urine NOT REPORTED Normal NEG [facility] Comment on above: Performed By: #### C PDAU #### [address] [place] [address] Coding Summary.on 12-11-2018 Coding Summary. CODING DATE: 019 [facility] STATUS: Home (Routine DC) PAYOR: Commercial [...] CphT Date Saved: 12/11/2018 09:36 am Normal [facility] US 1st Trimesteron 12-09-2018 US 1st [...] Transvaginal Ultrasound Performed Size = Dates Normal [facility] US Transvaginalon 12-09-2018 US Transvaginal Exam Date/Time: 12/09/2018 15:15 EST Reason for Exam: nausea hx of molar Report Please refer to ultrasound transabdominal first trimester report. FINAL REPORT Dictated: 12/09/2018 3:50 pm Aurelia Mullen MD Signed (Electronic Signature): 12/09/2018 3:50 pm Signed by: Aurelia Mullen MD Transcribed by: DARWIN Technologist: ADARSH Normal [facility] Progress Noteon 06-07-2018 HIM IP Note OR Medical Record Consultant Normal [facility] HCG, Quanton 03-22-2018 HCG, Quant 64 IU/L High <5 [facility] Comment on above: Result Comment: Non-preg premeno <=5 Postmeno <=8 Male <=3 If HCG results do not concur with clinical observations, additional testing to confirm result is recommended. This test is not labeled for use as a tumor marker. Performed at [address] [place] [id number] [phone]. Performed By: #### C PDAU #### [address] [place] [address] HCG, Quanton 03-15-2018 HCG, Quant 613 IU/L High <5 [facility] Comment on above: Result Comment: Non-preg premeno <=5 Postmeno <=8 Male <=3 If HCG results do not concur with clinical observations, additional testing to confirm result is recommended. This test is not labeled for use as a tumor marker. Performed at [address] [place] [id number] [phone] Performed By: #### C PDAU #### [address] [place] [id number] OPERATIVE REPORTon 8 OPERATIVE REPORT [address] [address] OPERATIVE REPORT PATIENT NAME: NORIS GOETZ : 1990 MED REC NO: [id number] ROOM: ACCOUNT NO: [id number] ADMIT DATE: 03/09/2018 PROVIDER: Chau Sorenson DATE [...] be correct. Of note, she will receive [place] 5/325 for any postoperative cramping, and I have ordered an hCG to be repeated in approximately one week. CHAU SORENSON CELINE/Janak_WOSDB_I Doc#: [id number] CC: Marianela Oliva [facility] Surgical Pathologyon 018 Surgical Pathology (NOTE) [id number] [facility] CONSULTING PATHOLOGISTS [facility] ANATOMIC PATHOLOGY [address] [place] [address]. [place], [place] [address] SURGICAL PATHOLOGY CONSULTATION Patient Name: NORIS GOETZ [facility] Rec: [id number] Path Number: [id number] Collected: 03/09/2018 Received: 03/10/2018 Reported: 03/11/2018 14:53 [...] grossly identified. Cystic structures are not evident. Stationary Engineer sections are submitted between sponges in A-H. tm Microscopic Description Most of the submitted tissue consists of blood clot and decidua with foci of necrosis and acute inflammation. Portions of endometrium show gestational change. There are rare immature, small avascular placental villi and a few associated syncytiotrophoblasts. Histologic changes to suggest gestational trophoblastic disease are absent. Normal [facility] Progress Noteon 03-08-2018 HIM IP Note OR Medical Record Consultant Normal [facility] Chlamydia/GC DNA, Uron 03-07 Protein mass conc Negative Normal NEG [facility] Comment on above: Result Comment: NEIS SERIA GONORRHOEAE DNA not detected by nucleic acid amplification. Performed at [address] [id number] [phone] Performed By: #### U CGP #### [address] [address] Result Comment: CHLA MYDIA TRACHOMATIS DNA not detected by nucleic acid amplification. HCG, Quanton 03-07-2018 HCG, Quant 65031 IU/L High <5 [facility] Comment on above: Result Comment: Non-preg premeno <=5 Postmeno <=8 Male <=3 If HCG results do not concur with clinical observations, additional testing to confirm result is recommended. This test is not labeled for use as a tumor marker. Performed at [address] [place] [address] [phone] Performed By: #### B HCG #### [address] [place] [address] RHIG, Transfuseon 03-07-2018 RHIG, Transfuse Unit Number [id number] /45 Blood Component Type RHIG Unit Division 00 Status of Unit TRANSFUSED Transfusion Status OK TO TRANSFUSE Performed at [address] [place] [address] [phone] Normal [facility] Comment on above: Performed By: #### T RHIG #### [address] [place] [id number] Cult,Urine,CCon 03-05-2018 Cult,Urine,CC Specimen Description .URINE Performed at [address] [place] [address] Special Requests CCMS Performed at [address] [place] [address] Culture NO SIGNIFICANT GROWTH Performed at [address] [address] Report Status FINAL 03/04/2018 Normal [facility] Comment on above: Performed By: #### C INNA #### [address] [place], [place] [address] HIV Ag/Abon 03-04-2018 HIV Ag/Ab NONREACTIVE Normal NR [facility] Comment on above: Result Comment: No l aboratory evidence of HIV infection. If acute HIV infection is suspected, consider testing for HIV-1 RNA. Performed at [address] [address] Performed By: #### H IVCMB #### [address] [address] Hep C Abon 03-04-2018 Hep C Ab NONREACTIVE Normal NR [facility] Comment on above: Result Comment: The [...] ordering HCV RNA by PCR. Performed at [address] [address] Performed By: #### A HCV #### [address] [address] Profileon 8 T.pallidum Ab Screen NONREACTIVE Normal NR [facility] Comment on above: Result Comment: T. pallidum antibodies are not detected. There is no serological evidence of infection with T. pallidum (early primary syphilis cannot be excluded). Retest in 2-4 weeks if syphilis is clinically suspect. Performed at [address] [address] Performed By: #### P RENAT #### [address] [address] Hep B Surf Ag NONREACTIVE Normal NR [facility] Comment on above: Performed By: #### P RENAT #### [address] [address] Rubella Ab, IgG 65.7 IU/mL Normal [facility] Comment on above: Result Comment: REFERENCE RANGE: <5.0 NON-REACTIVE (non-immune) 5.0 TO 9.9 EQUIVOCAL >=10.0 REACTIVE (immune) Performed By: #### P RENAT #### [address] [address] Toxicology Scree, Urineon Amphetamine(s),Ur Negative Normal NEG [facility] Comment on above: Performed By: #### C PDAU #### [address] [place] [address] Barbiturate(s),Ur Negative Normal NEG [facility] Comment on above: Performed By: #### C PDAU #### [address] [place] [address] Benzodiazepine(s) Negative Normal NEG [facility] Comment on above: Performed By: #### C PDAU #### [address] [place] [address] Buprenorphrine, Ur Negative Normal NEG [facility] Comment on above: Result Comment: Perf ormed at [address] [place] [address] Performed By: #### C PDAU #### [address] [place] [address] Cannabinoid(s),Ur Negative Normal [facility] [place] [facility] Comment on above: Performed By: #### C PDAU #### [address] [place] [address] Cocaine Metabolite Negative Normal [facility] Comment on above: Performed By: #### C PDAU #### [address] [place] [address] Methadone Ql (U) Negative Normal [facility] Comment on above: Performed By: #### C PDAU #### [address] [place] [address] Methamphetamine, Ur Negative Normal [facility] Comment on above: Performed By: #### C PDAU #### [address] [place] [address] Opiate(s), Ur Negative Normal [facility] Comment on above: Performed By: #### C PDAU #### [address] [place] [address] Oxycodone, Urine Negative Normal [facility] Comment on above: Performed By: #### C PDAU #### [address] [place] [address] Phencyclidine, Ur Negative Normal [facility] [place] [facility] Comment on above: Performed By: #### C PDAU #### [address] [place] [address] Protein mass conc (U) Negative Normal NE[facility] Comment on above: Performed By: #### C PDAU #### [address] [place] [address] Tricyclic antidepressants Screen Ql (U) Negative Normal [facility] Comment on above: Result Comment: Drug screen results are to be used for medical purposes only. All positive results are unconfirmed. Testing for employment or legal uses should be sent to a reference laboratory for confirmation. Performed By: #### C PDAU #### [facility] [address] [place] [address] Profileon 8 Abs. Basophil 0.05 k/uL Normal 0.00-0.20 [facility] Comment on above: Performed By: #### P RENAT #### [address] [address] Abs.Imm.Granulocyte 0.04 k/uL Normal 0.00-0.30 [facility] Comment on above: Performed By: #### P RENAT #### [address] [address] Abs.Neutrophil (Seg) 5.60 k/uL Normal 1.50-8.10 [facility] Comment on above: Performed By: #### P RENAT #### [address] [address] Basophils/100 WBC (Bld) 1 % Normal 0-2 [facility] Comment on above: Performed By: #### P RENAT #### [address] [address] Eosinophils #/vol (Bld) 0.18 10*3/uL Normal 0.00-0.44 [facility] Comment on above: Performed By: #### P RENAT #### [address] [address] Eosinophils/100 WBC (Bld) 2 % Normal 1-4 [facility] Comment on above: Performed By: #### P RENAT #### [address] [address] Erythrocyte distribution width Ratio (RBC) 13.0 % Normal 11.8-14.4 [facility] Comment on above: Performed By: #### P RENAT #### [facility] [employer] [address] [place] [address] Hematocrit Volume Fraction (Bld) 39.1 % Normal 36.3-47.1 [facility] Comment on above: Performed By: #### P RENAT #### [address] [address] Hemoglobin mass conc (Bld) 12.6 g/dL Normal 11.9-15.1 [facility] Comment on above: Performed By: #### P RENAT #### [address] [address] Immature granulocytes #/vol (Bld) 1 % High 0 [facility] Comment on above: Performed By: #### P RENAT #### [address] [address] Lymphocytes #/vol (Bld) 2.18 10*3/uL Normal 1.10-3.70 [facility] Comment on above: Performed By: #### P RENAT #### [address] [address] Lymphocytes/100 WBC (Bld) 25 % Normal 24-43 [facility] Comment on above: Performed By: #### P RENAT #### [facility] [employer] [address] [place] [address] MCH Entitic mass (RBC) 26.9 pg Normal 25.2-33.5 [facility] Comment on above: Performed By: #### P RENAT #### [facility] [employer] [address] [place] [address] MCHC mass conc (RBC) 32.2 g/dL Normal 28.4-34.8 [facility] Comment on above: Performed By: #### P RENAT #### [facility] [employer] [address] [place] [address] MCV Entitic volume (RBC) 83.4 fL Normal 82.6-102.9 [facility] Comment on above: Performed By: #### P RENAT #### [address] [address] Monocytes #/vol (Bld) 0.79 10*3/uL Normal 0.10-1.20 [facility] Comment on above: Performed By: #### P RENAT #### [address] [address] Monocytes/100 WBC (Bld) 9 % Normal 3-12 [facility] Comment on above: Performed By: #### P RENAT #### [address] [address] Neutrophil (Seg) 62 % Normal 36-65 [facility] Comment on above: Performed By: #### P RENAT #### [address] [address] NRBC Automated 0.0 per 100 WBC Normal 0.0 [facility] Comment on above: Performed By: #### P RENAT #### [address] [address] Platelet mean volume Entitic volume (Bld) 11.2 fL Normal 8.1-13.5 [facility] Comment on above: Performed By: #### P RENAT #### [address] [address] Platelets #/vol (Bld) 243 10*3/uL Normal 138-453 [facility] Comment on above: Performed By: #### P RENAT #### [address] [address] RBC #/vol (Bld) 4.69 10*6/uL Normal 3.95-5.11 [facility] Comment on above: Performed By: #### P RENAT #### [address] [address] WBC #/vol (Bld) 8.8 10*3/uL Normal 3.5-11.3 [facility] Comment on above: Performed By: #### P RENAT #### [address] [address] Auto Diff Performed NOT REPORTED Normal [facility] Comment on above: Performed By: #### P RENAT #### [address] [address] Platelets #/vol (Bld) NOT REPORTED Normal [facility] Comment on above: Performed By: #### P RENAT #### [address] [address] RBC morphology finding Nom (Bld) NOT REPORTED Normal [facility] Comment on above: Performed By: #### P RENAT #### [address] [address] WBC Morphology NOT REPORTED Normal [facility] Comment on above: Performed By: #### P RENAT #### [address] [address] Type + Scrnon 03-03 Type + Scrn ABO/Rh(D) B NEGATIV E Antibody Screen NEGATIVE Performed at [address] [place], [place] [id number] [phone] Normal [facility] Comment on above: Performed By: #### P RTYS #### [address] [place] [address] Progress Noteon 03-03-2018 HIM IP Note OR Medical Record Consultant Normal [facility] Toxicology Scree, Urineon Interpretive Info NOT REPORTED Normal [facility] Comment on above: Performed By: #### C PDAU #### [address] [place] [address] MDMA, Urine NOT REPORTED Normal NEG [facility] Comment on above: Performed By: #### C PDAU #### [address] [place] [address] Hep Bs Abon 01-22-2018 HBV surface Ab Ql (S) Reactive [facility] Comment on above: Result Comment: Non Reactive: Inconsistent with immunity, less than 10 mIU/mL Reactive: Consistent with immunity, greater than 9.9 mIU/mL Performed at: [address] [id number] PhD Sumeet [place] Performed By: #### 2 [id number], [id number] #### [facility] [address] [place] [address] Varic IgGon 01-22-2018 VZV IgG IA Qn (S) 574 Immune >165 [facility] Comment on above: Result Comment: Nega tive <135 Equivocal 135 - 165 Positive >165 A positive result generally indicates exposure to the pathogen or administration of specific immunoglobulins, but it is not indication of active infection or stage of disease. Performed at: [address] [id number] PhD Sumeet Merrill Performed By: #### 2 [id number], [id number] #### [facility] [address] [place] [address] Progress Noteon 11-18-2017 HIM IP Note OR Medical Record Consultant Normal [facility] Vital Signs Date Time Vital Sign Value Performing Clinician Facility 07-19-2025 09:34-0400 Body mass index (BMI) [Ratio] 35.88 kg/m2 Rock Mendez NP Work Phone: [facility] 07-19-2025 09:34-0400 Body weight 107.05 kg Rock Mendez SLOT OPERATIONS DIRECTOR Work Phone: [facility] 07-19-2025 09:34-0400 Diastolic blood pressure 82 mm[Hg] Rock Mendez SLOT OPERATIONS DIRECTOR Work Phone: [facility] 07-19-2025 09:34-0400 Systolic blood pressure 140 mm[Hg] Rock Mendez NP Work Phone: [facility] 07-05-2025 09:48-0400 Body mass index (BMI) [Ratio] 35.55 kg/m2 Yasmani Kaylen DO Work Phone: [facility] 07-05-2025 09:48-0400 Body weight 106.05 kg Yasmani Kaylen DO Work Phone: [facility] 07-05-2025 09:48-0400 Diastolic blood pressure 78 mm[Hg] Yasmani Kaylen DO Work Phone: [facility] 07-05-2025 09:48-0400 Systolic blood pressure 110 mm[Hg] Yasmani Kaylen DO Work Phone: [facility] 06-21-2025 09:54-0400 Body mass index (BMI) [Ratio] 35.12 kg/m2 Yasmani Kaylen DO Work Phone: [facility] 06-21-2025 09:54-0400 Body weight 104.78 kg Yasmani Kaylen DO Work Phone: [facility] 06-21-2025 09:54-0400 Diastolic blood pressure 72 mm[Hg] Yasmani Kaylen DO Work Phone: [facility] 06-21-2025 09:54-0400 Systolic blood pressure 124 mm[Hg] Yasmani Kaylen DO Work Phone: [facility] 06-12-2025 08:32-0400 Body height 170.18 cm Marianela Oliva MD Work Phone: [facility] 06-12-2025 08:32-0400 Body mass index (BMI) [Ratio] 36.1 kg/m2 Marianela Oliva MD Work Phone: [facility] 06-12-2025 08:32-0400 Body weight 104.77 kg Marianela Oliva MD Work Phone: [facility] 06-12-2025 08:32-0400 Diastolic blood pressure 81 mm[Hg] Marianela Oliva MD Work Phone: [facility] 06-12-2025 08:32-0400 Heart rate 88 /min Marianela Oliva MD Work Phone: [facility] 06-12-2025 08:32-0400 Respiratory rate 12 /min Marianela Oliva MD Work Phone: [facility] 06-12-2025 08:32-0400 SaO2% (BldA) [Mass fraction] 97 % Marianela Oliva MD Work Phone: [facility] 06-12-2025 08:32-0400 Systolic blood pressure 119 mm[Hg] Marianela Oliva MD Work Phone: [facility] 06-07-2025 10:26-0400 Body mass index (BMI) [Ratio] 35.14 kg/m2 Yasmani Kaylen DO Work Phone: [facility] 06-07-2025 10:26-0400 Body weight 104.83 kg Yasmani Kayeln DO Work Phone: [facility] 06-07-2025 10:26-0400 Diastolic blood pressure 70 mm[Hg] Yasmani Kaylen DO Work Phone: [facility] 06-07-2025 10:26-0400 Systolic blood pressure 112 mm[Hg] Yasmani Kaylen DO Work Phone: [facility] 05-22-2025 11:13-0400 Body mass index (BMI) [Ratio] 34.64 kg/m2 Yasmani Kaylen DO Work Phone: [facility] 05-22-2025 11:13-0400 Body weight 103.33 kg Yasmani Kaylen DO Work Phone: [facility] 05-22-2025 11:13-0400 Diastolic blood pressure 72 mm[Hg] Yasmani Kaylen DO Work Phone: [facility] 05-22-2025 11:13-0400 Systolic blood pressure 110 mm[Hg] Yasmani Kaylen DO Work Phone: [facility] 05-10-2025 08:31-0400 Body mass index (BMI) [Ratio] 34.25 kg/m2 Yasmani Kaylen DO Work Phone: [facility] 05-10-2025 08:31-0400 Body weight 102.17 kg Yasmani Kaylen DO Work Phone: [facility] 05-10-2025 08:31-0400 Diastolic blood pressure 78 mm[Hg] Yasmani Kaylen DO Work Phone: [facility] 05-10-2025 08:31-0400 Systolic blood pressure 124 mm[Hg] Yasmani Kaylen DO Work Phone: [facility] 04-10-2025 10:38-0400 Body mass index (BMI) [Ratio] 33.88 kg/m2 Yasmani Kaylen DO Work Phone: [facility] 04-10-2025 10:38-0400 Body weight 101.06 kg Yasmani Kaylen DO Work Phone: [facility] 04-10-2025 10:38-0400 Diastolic blood pressure 68 mm[Hg] Yasmani Kaylen DO Work Phone: [facility] 04-10-2025 10:38-0400 Systolic blood pressure 108 mm[Hg] Yasmani Kaylen DO Work Phone: [facility] 03-15-2025 10:00-0400 Body mass index (BMI) [Ratio] 33.27 kg/m2 Yasmani Kaylen DO Work Phone: [facility] 03-15-2025 10:00-0400 Body weight 99.25 kg Yasmani Kaylen DO Work Phone: [facility] 03-15-2025 10:00-0400 Diastolic blood pressure 70 mm[Hg] Yasmani Kaylen DO Work Phone: [facility] 03-15-2025 10:00-0400 Systolic blood pressure 110 mm[Hg] Yasmani Kaylen DO Work Phone: [facility] 02-15-2025 09:37-0400 Body mass index (BMI) [Ratio] 32.96 kg/m2 Yasmani Kaylen DO Work Phone: [facility] 02-15-2025 09:37-0400 Body weight 98.34 kg Yasmani Kaylen DO Work Phone: [facility] 02-15-2025 09:37-0400 Diastolic blood pressure 70 mm[Hg] Yasmani Kaylen DO Work Phone: [facility] 02-15-2025 09:37-0400 Systolic blood pressure 110 mm[Hg] Yasmani Kaylen DO Work Phone: [facility] 01-18-2025 09:45-0400 Body mass index (BMI) [Ratio] 32.1 kg/m2 Yasmani Kaylen DO Work Phone: [facility] 01-18-2025 09:45-0400 Body weight 95.77 kg Yasmani Kaylen DO Work Phone: [facility] 01-18-2025 09:45-0400 Diastolic blood pressure 80 mm[Hg] Yasmani Kaylen DO Work Phone: [facility] 01-18-2025 09:45-0400 Systolic blood pressure 100 mm[Hg] Yasmani Kaylen DO Work Phone: [facility] 12-06-2024 09:47-0500 Heart rate 75 /min Marianela Oliva MD Work Phone: [facility] 12-06-2024 09:47-0500 Respiratory rate 16 /min Marianela Oliva MD Work Phone: [facility] 12-06-2024 07:53-0500 Body height 170.18 cm Marianela Oliva MD Work Phone: [facility] 12-06-2024 07:53-0500 Body temperature 98.2 [degF] Marianela Oliva MD Work Phone: [facility] 12-06-2024 07:53-0500 Body weight 90.71 kg Marianela Oliva MD Work Phone: [facility] 12-06-2024 07:53-0500 Diastolic blood pressure 60 mm[Hg] Marianela Oliva MD Work Phone: [facility] 12-06-2024 07:53-0500 SaO2% (BldA) [Mass fraction] 99 % Marianela Oliva MD Work Phone: [facility] 12-06-2024 07:53-0500 Systolic blood pressure 121 mm[Hg] Marianela Oliva MD Work Phone: [facility] 08-15-2024 09:05-0400 Body height 172.72 cm MD Marianela Oliva Work Phone: [facility] 08-15-2024 09:05-0400 Body mass index (BMI) [Ratio] 32.1 kg/m2 MD Marianela Oliva Work Phone: [facility] 08-15-2024 09:05-0400 Body weight 95.7 kg MD Marianela Oliva Work Phone: [facility] 08-15-2024 09:05-0400 Diastolic blood pressure 85 mm[Hg] MD Marianela Oliva Work Phone: [facility] 08-15-2024 09:05-0400 Heart rate 80 /min MD Marianela Oliva Work Phone: [facility] 08-15-2024 09:05-0400 Systolic blood pressure 125 mm[Hg] MD Marianela Oliva Work Phone: [facility] 08-11-2024 09:14-0400 Body height 172.72 cm MD Marianela Oliva Work Phone: [facility] 08-11-2024 09:14-0400 Body mass index (BMI) [Ratio] 31.9 kg/m2 MD Marianela Oliva Work Phone: [facility] 08-11-2024 09:14-0400 Body temperature 97.8 [degF] MD Marianela Oliva Work Phone: [facility] 08-11-2024 09:14-0400 Body weight 95.25 kg MD Marianela Oliva Work Phone: [facility] 08-11-2024 09:14-0400 Diastolic blood pressure 72 mm[Hg] MD Marianela Oliva Work Phone: [facility] 08-11-2024 09:14-0400 Heart rate 99 /min MD Marianela Oliva Work Phone: [facility] 08-11-2024 09:14-0400 Respiratory rate 18 /min MD Marianela Oliva Work Phone: [facility] 08-11-2024 09:14-0400 SaO2% (BldA) [Mass fraction] 96 % MD Marianela Oliva Work Phone: [facility] 08-11-2024 09:14-0400 Systolic blood pressure 106 mm[Hg] MD Marianela Oliva Work Phone: [facility] 05-18-2024 10:41-0400 Body height 173.99 cm MD Marianela Oliva Work Phone: [facility] 05-18-2024 10:41-0400 Body mass index (BMI) [Ratio] 32.2 kg/m2 MD Marianela Oliva Work Phone: [facility] 05-18-2024 10:41-0400 Body weight 97.52 kg MD Marianela Oliva Work Phone: [facility] 05-18-2024 10:41-0400 Diastolic blood pressure 82 mm[Hg] MD Marianela Oliva Work Phone: [facility] 05-18-2024 10:41-0400 Heart rate 72 /min MD Marianela Oliva Work Phone: [facility] 05-18-2024 10:41-0400 Systolic blood pressure 117 mm[Hg] MD Marianela Oliva Work Phone: [facility] 01-07-2022 12:45-0400 Body height 170.18 cm Regina Missler Other [employer] Other 01-07-2022 12:45-0400 Body temperature 98.9 [degF] Regina Missler Other [facility] Other 01-07-2022 12:45-0400 Diastolic blood pressure 81 mm[Hg] Regina Missler Other [facility] Other 01-07-2022 12:45-0400 Respiratory rate 18 /min Regina Missler Other [facility] Other 01-07-2022 12:45-0400 SaO2% (BldA) [Mass fraction] Regina Missler Other [employer] Other 01-07-2022 12:45-0400 Systolic blood pressure 121 mm[Hg] Regina Missler Other [employer] Other Encounters Encounter Date Encounter Type Care Provider Facility Start: 07-19-2025 End: 07-19-2025 Bamboo flowsheet Rock Mendez SLOT OPERATIONS DIRECTOR Work Phone: [facility] Start: 07-19-2025 End: 07-19-2025 Bamboo flowsheet Rock Mendez SLOT OPERATIONS DIRECTOR Work Phone: [facility] Start: 07-19-2025 End: 07-19-2025 flow sheet Rock Mendez SLOT OPERATIONS DIRECTOR Work Phone: [facility] Comment on above: Third trimester preg lisa ([facility]); 38 weeks gestation of ([facility]) Start: 07-19-2025 End: 07-19-2025 ambulatory ROCK MENDEZ Not Available Start: 07-16-2025 End: 07-16-2025 Clinisync Result Encounter Yasmani Kaylen DO Work Phone: [facility] Unsolicited Start: 07-16-2025 End: 07-16-2025 Clinisync Result Encounter Yasmani Kaylen DO Work Phone: [facility]solicited Start: 07-11-2025 End: 07-11-2025 Clinisync Result Encounter Yasmani Kaylen DO Work Phone: [facility] Unsolicited Start: 07-11-2025 End: 07-11-2025 Clinisync Result Encounter Yasmani Kaylen DO Work Phone: [facility]solicited Start: 07-09-2025 End: 07-09-2025 flow sheet Yasmani Kaylen DO Work Phone: [facility] Comment on above: Third trimester preg lisa ([facility]) Start: 07-09-2025 End: 07-09-2025 ambulatory YASMANI KAYLEN Not Available Start: 07-09-2025 End: 07-09-2025 Bamboo flowsheet Yasmani Kaylen DO Work Phone: [facility] Start: 07-09-2025 End: 07-09-2025 Bamboo flowsheet Yasmani Kaylen DO Work Phone: [facility] Start: 07-05-2025 End: 07-05-2025 Bamboo flowsheet Yasmani Kaylen DO Work Phone: [facility] Start: 07-05-2025 End: 07-05-2025 Bamboo flowsheet Yasmani Kaylen DO Work Phone: [facility] Start: 07-05-2025 End: 07-05-2025 flow sheet Yasmani Kaylen DO Work Phone: [facility] Comment on above: 36 weeks gestation o f ([facility]); Third trimester ([facility] Multigravida of advanced maternal age in third trimester ([facility]); History of molar ; Antepartum multigravida of advanced maternal age ([facility]) Start: 07-05-2025 End: 07-05-2025 ambulatory [...] Comment on above: Third trimester preg lisa ([facility]); 34 weeks gestation of ([facility]); Multigravida of advanced maternal age in third trimester ([facility]) Start: 06-21-2025 End: 06-21-2025 ambulatory YASMANI KAYLEN Not Available Start: 06-19-2025 End: 06-19-2025 Clinisync Result Encounter Yasmani Kaylen DO Work Phone: [facility] Unsolicited Start: 06-19-2025 End: 06-19-2025 Clinisync Result Encounter Yasmani Kaylen DO Work Phone: [facility] Unsolicited Start: 06-12-2025 End: 06-12-2025 ambulatory Marianela Oliva MD Work Phone: [facility] Work Phone: Start: 06-12-2025 End: 06-12-2025 Patient encounter procedure Marianela Oliva MD -[facility] Work Phone: Start: 06-07-2025 End: 06-07-2025 Bamboo flowsheet Yasmani Kaylen DO Work Phone: [facility] Start: 06-07-2025 End: 06-07-2025 Bamboo flowsheet Yasmani Kaylen DO Work Phone: [facility] Start: 06-07-2025 End: 06-07-2025 flow sheet Yasmani Kaylen DO Work Phone: [facility] Comment on above: Third trimester preg lisa ([facility]); 32 weeks gestation of ([facility]); Multigravida of advanced maternal age in third trimester ([facility]) Start: 06-07-2025 End: 06-07-2025 ambulatory YASMANI KAYLEN Not Available Start: 05-22-2025 End: 05-22-2025 flow sheet Yasmani Kaylen DO Work Phone: [facility] Comment on above: 30 weeks gestation o f ([facility]); Third trimester ([facility]); Antepartum multigravida of advanced maternal age ([facility]); Gestational diabetes mellitus (GDM), antepartum, gestational diabetes method of control unspecified ([facility]) Start: 05-22-2025 End: 05-22-2025 ambulatory YASMANI KAYLEN Not Available Start: 05-10-2025 End: 05-10-2025 Bamboo flowsheet Yasmani Kaylen DO Work Phone: [facility] Start: 05-10-2025 End: 05-10-2025 Bamboo flowsheet Yasmani Kaylen DO Work Phone: [facility] Start: 05-10-2025 End: 05-10-2025 flow sheet Yasmani Kaylen DO Work Phone: [facility] Comment on above: size consisten t with dates, antepartum ([facility]) (Primary Dx); Third trimester ([facility]); 28 weeks gestation of ([facility]); Antepartum multigravida of advanced maternal age ([facility]) Start: 05-10-2025 End: 05-10-2025 ambulatory YASMANI KAYLEN Not Available Start: 04-10-2025 End: 04-10-2025 Bamboo flowsheet Yasmani Kaylen DO Work Phone: [facility] Start: 04-10-2025 End: 04-10-2025 Bamboo flowsheet Yasmani Kaylen DO Work Phone: [facility] Start: 04-10-2025 End: 04-10-2025 flow sheet Yasmani Kaylen DO Work Phone: [facility] Comment on above: Second trimester pre gnancy ([facility]); 24 weeks gestation of ([facility]); Diabetes mellitus screening Start: 04-10-2025 End: 04-10-2025 ambulatory YASMANI KAYLEN Not Available Start: 04-02-2025 End: 04-02-2025 Departed Referred Mario Erickson Start: 04-02-2025 End: 04-02-2025 ambulatory Mario Perez - [facility] Facility:[facility] Start: 03-15-2025 End: 03-15-2025 flow sheet Yasmani Kaylen DO Work Phone: [facility] Comment on above: 20 weeks gestation o f ; Second trimester ; Anxiety, generalized ([facility]) Start: 03-15-2025 End: 03-15-2025 ambulatory YASMANI KAYLEN Not Available Start: 03-15-2025 End: 03-15-2025 ambulatory YASMANI KAYLEN Not Available Start: 03-14-2025 End: 03-14-2025 External Result Encounter Yasmani Kaylen DO Work Phone: [facility] Unsolicited Start: 03-14-2025 End: 03-14-2025 External Result Encounter Yasmani Kaylen DO Work Phone: [facility] Unsolicited Start: 03-14-2025 End: 03-14-2025 Patient encounter procedure Marianela Oliva MD Work Phone: [facility] Start: 03-14-2025 End: 03-14-2025 ambulatory Marianela Oliva MD Work Phone: [facility] Work Phone: Start: 02-15-2025 End: [...] Non-visit Marianela Oliva MD Work Phone: [facility] Work Phone: Start: 02-15-2025 End: [...] Bamboo flowsheet Yasmani Kaylen DO Work Phone: [facility] Start: 01-18-2025 End: 01-18-2025 flow sheet Yasmani Kaylen DO Work Phone: [facility] Comment on above: First trimester preg lisa; 12 weeks gestation of ; Antepartum multigravida of advanced maternal age Start: 01-18-2025 End: 01-18-2025 ambulatory YASMANI KAYLEN Not Available Start: 12-27-2024 End: 12-27-2024 Patient encounter procedure Marianela Oliva MD Work Phone: [facility] Start: 12-27-2024 End: 12-27-2024 ambulatory Marianela Oliva MD Work Phone: [facility] Work Phone: Start: 12-21-2024 End: 12-21-2024 ambulatory YASMANI KAYLEN Not Available Start: 12-07-2024 Non-patient / Non-visit Marianela Oliva MD Work Phone: [facility] Work Phone: Start: 12-06-2024 End: 12-06-2024 Emergency department patient visit Marianela Oliva MD Work Phone: [facility] Work Phone: Start: 12-05-2024 End: 12-05-2024 Telephone encounter Yasmani Kaylen DO Work Phone: [facility] Start: 08-15-2024 Patient encounter status Pooja Oliva MD Work Phone: [facility] Start: 08-15-2024 End: 08-15-2024 ambulatory MD Marianela Oliva Work Phone: [facility] Work Phone: Start: 08-15-2024 End: 08-15-2024 Patient encounter procedure MD Marianela Oliva Work Phone: [facility] Work Phone: Start: 08-11-2024 End: 08-11-2024 ambulatory MD Marianela Oliva Work Phone: [facility] Work Phone: Start: 08-11-2024 End: 08-11-2024 Patient encounter procedure MD Marianela Oliva Work Phone: [facility] Work Phone: Start: 08-01-2024 End: 08-01-2024 ambulatory MD Marianela Oliva Work Phone: [facility] Work Phone: Start: 08-01-2024 End: 08-01-2024 Departed Referred MD Marianela lOiva Work Phone: [facility] [place] Work Phone: Start: 05-23-2024 End: 05-23-2024 Patient encounter procedure MD Marianela Oliva Work Phone: [facility] [place] Work Phone: Start: 05-23-2024 End: 05-23-2024 ambulatory MD Marianela Oliva Work Phone: [facility] Work Phone: Start: 05-18-2024 End: 05-18-2024 ambulatory MD Marianela Oliva Work Phone: [facility] Work Phone: Start: 05-18-2024 End: 05-18-2024 Patient encounter procedure MD Marianela Oliva Work Phone: [facility] Work Phone: Start: 05-17-2024 End: 05-17-2024 Departed Referred MD Marianela Oliva Work Phone: [facility] Start: 05-17-2024 End: 05-17-2024 ambulatory MD Marianela Oliva Work Phone: [facility] Work Phone: Start: 07-12-2023 End: 07-12-2023 ambulatory MD Marianela Oliva Work Phone: [facility] Work Phone: Start: 07-12-2023 End: 07-12-2023 Departed Referred MD Marianela Oliva Work Phone: [facility]-Employee Benefit Screening Start: 02-23-2023 End: 02-23-2023 ambulatory MD Marianela Oliva Work Phone: [facility] Work Phone: Start: 02-23-2023 End: 02-23-2023 Patient encounter procedure MD Marianela Oliva Work Phone: [facility] Work Phone: Start: 02-04-2023 End: 02-04-2023 ambulatory Marianela Oliva Other [employer] Other Start: 02-04-2023 Office outpatient vi sit 15 minutes Marianela Oliva [facility] Start: 02-04-2023 Telephone encounter Marianela Oliva [facility] Start: 01-29-2023 End: 01-29-2023 ambulatory Marianela Oliva Other [employer] Other Start: 01-29-2023 Telephone encounter Marianela Oliva [facility] Start: 12-15-2022 End: 12-15-2022 Departed Referred MD Marianela Oliva Work Phone: [facility] [place] Work Phone: Start: 12-04-2022 End: 12-04-2022 ambulatory Marianela Oliva Other [employer] Other Start: 12-04-2022 Telephone encounter Marianela Oliva [facility] Start: 11-10-2022 End: 11-10-2022 ambulatory MD Marianela Oliva Work Phone: [facility] Work Phone: Start: 11-10-2022 End: 11-10-2022 Departed Referred MD Marianela Oliva Work Phone: [facility] [place] Work Phone: Start: 08-07-2022 End: 08-07-2022 ambulatory Regina Huddleston Other [employer] Other Start: 08-07-2022 Telephone encounter Regina Huddleston [facility] Start: 06-26-2022 End: 06-26-2022 ambulatory MD Marianela Oliva Work Phone: [facility] Work Phone: Start: 06-26-2022 End: 06-26-2022 Departed Referred MD Marianela Oliva Work Phone: [facility] Benefit Screening Start: 01-07-2022 End: 01-07-2022 ambulatory Reginaher Marieler Other [employer] Other Start: 01-07-2022 Patient encounter procedure Regina Huddleston [facility] Start: 12-22-2018 End: 12-23-2018 Patient encounter procedure CHAU SORENSON [facility] Start: 12-09-2018 End: 12-10-2018 Patient encounter procedure CHAU SORENSON Facility:[facility] Start: 06-14-2018 Patient encounter MARIANELA OLIVA Fac ility:[facility] Start: 03-22-2018 End: 03-23-2018 Patient encounter procedure CHAU [facility] Start: 03-15-2018 End: 03-16-2018 Patient encounter procedure CHAU Mcclain [facility] Start: 03-09-2018 End: 03-09-2018 Patient encounter procedure CHAU Mcclain [facility] Start: 03-07-2018 End: 03-08-2018 Patient encounter procedure CHAU Mcclain [facility] Start: 03-03-2018 End: 03-04-2018 Patient encounter procedure CHAU Mcclain [facility] Start: 03-03-2018 End: 03-03-2018 Patient encounter procedure CHAU Mcclain [facility] Start: 01-20-2018 End: 01-21-2018 Patient encounter procedure Macario Latashajacquelin Facility:[facility] Procedures Date Procedure Procedure Detail Performing Clinician Start: 07-19-2025 Urnls dip stick/tabl et rgnt non-auto w/o micrscp Rock Mendez SLOT OPERATIONS DIRECTOR Work Phone: Start: 07-16-2025 US OB BPP W NON-STRESS Yasmani Kaylen DO Work Phone: Start: 07-11-2025 US OB BPP W NON-STRESS Yasmani Kaylen DO Work Phone: Start: 07-09-2025 Urnls dip stick/tabl et rgnt [...] Phone: Start: 12-27-2024 Antibody screen Mario Khalil [facility] Comment on above: Order Comment: NONFA STING.JKW Result Comment: PERF ORMED BY: [facility] [address] [place] [address] PATHOLOGIST COMMUNICATIONS SENIOR ASSOCIATE LEÓN GARCIA M.D. Start: 12-06-2024 Diagnostic ultrasoun [...] SORENSON Start: 03-09-2018 SURGICAL PATHOLOGY JUAN DAVIDL SHANITA SORENSON Start: 03-09-2018 DISCHARGE PATIENT LORELEI Y BRITTNI Start: 03-09-2018 ASSESS [facility] Start: 03-09-2018 BEDREST CHAU SWAPNA GES Start: 03-09-2018 Continuous pulse oximetry CHAU [...] CHAU SORENSON Start: 03-09-2018 VITAL SIGNS CHAU BARCENAS GES Start: 03-09-2018 FULL CODE CHAU [place] [...] Start: 07-19-2025 End: 07-19-2025 Patient encounter procedure SUSANNE ALVAREZ Comment on above: Arrived Start: 07-12-2025 End: 07-12-2025 Patient encounter procedure 07/12/2025 9:10 AM EDT Routine SUSANNE ALVAREZ [address] [place] [id number] Rock Mendez, SAMUEL [address] [place] [id number] [facility] Start: 07-09-2025 End: 07-09-2025 Patient encounter procedure [facility] Comment on above: Arrived Start: 07-05-2025 End: 07-05-2026 CULTURE, GROUP B STREP WITH SUSCEPTIBLITY CULTURE, GROUP B STREP WITH SUSCEPTIBLITY Lab Routine Third trimester ([facility]) Expected: 07/05/2025, Expires: 07/05/2026 [facility] Work Phone: Comment on above: Expected: 07/05/2025 , Expires: 07/05/2026 Start: 07-05-2025 End: 07-05-2025 Patient encounter procedure [facility] Comment on above: Arrived Start: 06-21-2025 End: 06-21-2025 Patient encounter procedure 06/21/2025 9:40 AM EDT [facility] [address] [place] [id number] Yasmani Abdullahi, [address] [place] [address] [facility] Start: 06-21-2025 End: 06-21-2025 Professional / ancillary services management 06/21/2025 9:00 AM EDT Ancillary Procedure [facility] [address] [place] [id number] [facility] Start: 06-07-2025 End: 12-08-2025 US biophysical profile w non stress test US biophysical profile w non stress test Imaging Routine Multigravida of advanced maternal age in third trimester ([facility]) Expected: 06/07/2025 (Approximate), Expires: 12/08/2025 [facility] Work Phone: Comment on above: Expected: 06/07/2025 (Approximate), Expires: 12/08/2025 Start: 06-07-2025 End: 06-07-2025 Patient encounter procedure [facility] Comment on above: Arrived Start: 05-22-2025 End: 05-22-2025 Patient encounter procedure 05/22/2025 11:00 AM EDT Routine [facility] [address] [place] [phone] Yasmani Abdullahi, DO [address] [place] [address] [facility] Start: 05-22-2025 End: 05-22-2025 Professional / ancillary services management 05/22/2025 10:30 AM EDT Ancillary Procedure [facility] [address] [place] [phone] [facility] Start: 05-10-2025 End: 09-10-2025 US for US OB follow up transabdominal approach Imaging Routine Antepartum multigravida of advanced maternal age ([facility]) Expected: 05/10/2025, Expires: 09/10/2025 [facility] Work [...] mellitus screening Expected: 04/10/2025 (Approximate), Expires: 04/10/2026 [facility] Comment on above: Expected: 04/10/2025 (Approximate), Expires: 04/10/2026 Start: 04-10-2025 End: 04-10-2025 Patient encounter procedure [facility] Comment on above: Arrived Start: 03-15-2025 End: 03-15-2025 Patient encounter procedure 03/15/2025 9:50 AM EDT Routine [facility] [address] [place] [phone] Yasmani Abdullahi, DO [address] [place] [address] [facility] Start: 03-15-2025 End: 03-15-2025 Professional / ancillary services management 03/15/2025 8:30 AM EDT Ancillary Procedure [facility] [address] [place] [address] [facility] Start: 02-15-2025 End: 03-18-2025 [...] AM EDT Routine [facility] [address] [place] [phone] Yasmani Abdullahi, DO [address] [place], [place] [id number] Arrived [facility] Comment on above: Arrived Start: 12-27-2024 Bacteria identified in Urine by Culture Urine Culture [facility] Start: 12-27-2024 Rubella IgG measurement [facility] Start: 12-27-2024 Urine culture [facility] Start: 12-27-2024 [facility] Start: 12-21-2024 End: 12-21-2024 ambulatory 12/21/2024 1:30 PM EST Initial [facility] [address] [place] [address] [facility] Start: 12-21-2024 End: 12-21-2024 Professional / ancillary services management 12/21/2024 1:00 PM EST Ancillary Procedure [facility] [address] [place] [address] [facility] Start: 12-06-2024 Diagnostic ultrasoun d of gravid uterus [facility] Start: 07-12-2023 [facility] CHLAMYDIA TRACHOMATI S (GENITO/STI) CHLAMYDIA TRACHOMATIS (GENITO/STI) Lab Routine Exposure to STD 16 weeks gestation of Second trimester Ordered: 02/15/2025 [facility] Comment on above: Ordered: 02/15/2025 Cytology Cervical or vaginal smear or scraping study Pap Smear Pathology and Cytology Routine Well woman exam with routine gynecological exam Ordered: 02/15/2025 [facility] Comment on above: Ordered: 02/15/2025 Hepatitis B virus surface Ag [Presence] in Serum or Plasma by Immunoassay [facility] Hepatitis C virus Ig G Ab [Presence] in Serum or Plasma by Immunoassay [facility] HIV 1+2 Ab+HIV1 p24 Ag [Presence] in Serum or Plasma by Immunoassay [facility] Human papilloma viru s DNA [Presence] in Unspecified specimen by Probe with amplification HPV DNA probe, amplified Microbiology Routine Well woman exam with routine gynecological exam Ordered: 02/15/2025 [facility] Comment on above: Ordered: 02/15/2025 Measurement of gluco se 1 hour after glucose challenge for glucose tolerance test GTT, 1 hour Lab Routine Antepartum multigravida of advanced maternal age Ordered: 01/18/2025 [facility] Work Phone: Comment on above: Ordered: 01/18/2025 Neisseria gonorrhoea e DNA [Presence] in Unspecified specimen by CORBY with probe detection Neisseria gonorrhea DNA probe, direct Lab Routine Exposure to STD 16 weeks gestation of Second trimester Ordered: 02/15/2025 [facility] Comment on above: Ordered: 02/15/2025 Patient Education Stomach Pain i n [facility] Work Phone: Patient referral [facility] Work Phone: Reagin Ab [Presence] in Serum by RPR [facility] SURESWAB(R) ADVANCED VAGINITIS PLUS, TMA SUREAB(R) ADVANCED VAGINITIS PLUS, TMA Pathology and Cytology Routine Vaginal discharge Exposure to STD 16 weeks gestation of Second trimester Ordered: 02/15/2025 [facility] Work Phone: Comment on above: Ordered: 02/15/2025 [facility] Immunizations Immunization Date Immunization Notes Care Provider Fa cility 06-23-2019 tetanus toxoid, redu christen diphtheria toxoid, and acellular pertussis vaccine, adsorbed MD Marianela Oliva Work Phone: [facility] Payers Date Payer Category Payer Unknown [id number] 2024 Self-pay [id number] 2018 Unknown [id number] 2018 Private Health Insurance 2014 Unknown [id number] 1989 Unknown [id number] 2.16.84 0.1.168113.3.579.2.727 1989 Unknown [id number] 2.16.8 40.1.905317.3.579.2.173 1989 Unknown [id number] 2.16.8 40.1.788596.3.579.2.173 1989 Unknown [id number] 2.16.8 40.1.049899.3.579.2.173 1989 Unknown [id number] 2.16.8 40.1.767095.3.579.2.173 1989 Unknown [id number] 2.16.8 40.1.487233.3.579.2.173 1989 Unknown [id number] 2.16.8 40.1.430734.3.579.2.173 1989 Unknown [id number] 2.16.8 40.1.000722.3.579.2.173 1989 Unknown [id number] 2.16.8 40.1.268464.3.579.2.173 1989 Unknown [id number] 2.16.8 40.1.000641.3.579.2.1258 1989 Unknown [id number] 2.16.8 40.1.154795.3.579.2.9 1989 Unknown [id number] 2.16.8 40.1.424950.3.579.2.9 1989 Unknown [id number] 2.16.8 40.1.175319.3.579.2.9 1989 Unknown [id number] 2.16.8 40.1.592750.3.579.2.9 1989 Unknown [id number] 2.16.8 40.1.790340.3.579.2.9 1989 Unknown [id number] 2.16.8 40.1.405089.3.579.2.9 1989 Unknown [id number] 2.16.8 40.1.466838.3.579.2.9 1989 Unknown [id number] 2.16.8 40.1.593338.3.579.2.1258 1989 Unknown [id number] 2.16.8 40.1.233420.3.579.2.9 1989 Unknown [id number] 2.16.84 0.1.858358.3.579.2.1258 1989 Unknown [id number] 2.16.84 0.1.125899.3.579.2.1259 1989 Unknown [id number] 2.16.84 0.1.447414.3.579.2.1259 1989 Unknown [id number] 2.16.84 0.1.288631.3.579.2.1259 1989 Unknown [id number] 2.16.84 0.1.543383.3.579.2.9 1989 Unknown [id number] 2.16.84 0.1.119614.3.579.2.1259 1959 Private Health Insurance [id number] Unknown [id number] 2.16.8 40.1.557557.3.579.2.531 Unknown [id number] 2.16.8 40.1.657701.3.579.2.531 Unknown [id number] 2.16.8 40.1.438295.3.579.2.531 Unknown [id number] 2.16.8 40.1.208394.3.579.2.531 Unknown [id number] 2.16.8 40.1.416083.3.579.2.531 Unknown [id number] 2.16.8 40.1.436861.3.579.2.531 Unknown [id number] 2.16.8 40.1.447858.3.579.2.531 Unknown [id number] 2.16.8 40.1.943441.3.579.2.531 Social History Date Type Detail Facility Unknown if ever smoked [facility] Start: 01-27-2024 End: 12-21-2024 Sex Assigned At [facility] Start: 06-22-2019 End: 01-26-2024 Tobacco smoking status HIIS Never smoked tobacco (finding) [facility] Start: 1990 Sex Assigned At Female [facility] Start: 01-26-2024 Tobacco use and exposure Smokeless tobacco non-user [facility] Start: 01-27-2024 End: 07-19-2025 Alcoholic beverage intake Current drinker of alcohol (finding) [facility] Start: 01-27-2024 End: 12-21-2024 History of Social function [facility] Start: 01-27-2024 Gender identity Identifies as female gender (finding) [facility] Start: 01-27-2024 Sexual orientation Heterosexual (finding) [facility] Start: 11-04-2024 [facility] Start: 12-06-2024 End: 03-15-2025 Sex Female (finding) [facility] Medical Equipment Procedure Code Equipment Code Equipment Origin al Text Equipment Identifier Dates 1 strip by In Vi tro route Daily Use in the morning prior to breakfast, 1 hour after each meal for a total of 4times daily. [id number] Start: 02-15-2025 End: 03-17-2025 1 each by In Vit ro route Daily Use to check FSBS four times daily [id number] Start: 02-15-2025 End: 03-17-2025 Use as instructed [id number] Start: 04-09-2025 End: 04-09-2026 1 each by In Vit ro route Daily [id number] Start: 04-09-2025 End: 05-09-2025 Clinical Notes 12-16-2021 to 07-19-2025 Rock Mendez NP - 07/19/2025 9:50 AM Juan C Mendez NP - 07/09/2025 4:10 PM Gracie Bridges LPN - 07/05/2025 9:50 AM Gracie Bridges LPN - 06/21/2025 9:40 AM EDT Note Date & Type Note Facility 07-19-2025 History of Presen t illness Narrative Reason [...] nursing note reviewed. Exam conducted with a dock operator present. Vitals: Estimated body mass index is 35.88 kg/m as calculated from the following: Height as of 12/15/22: 5' 8 . Weight as of this encounter: 236 lb. BP: 140/82 Patient's last menstrual period was 10/21/2024. ASSESSMENT & PLAN ICD-10-CM 1. Third trimester ([facility]) Z34.93 2. 38 weeks gestation of ([facility]) Z3A.38 Return OB: Patient presents today for a routine obstetrics appointment. Patient is currently 38w5d . Patient states she is doing well but has complaints of being tired due to current . Patient has verbalizes frequent movement. labor precautions was discussed/given and patient was instructed to perform kick counts three times a day. Pt declined a cervical check at today's visit. No orders of the defined types were placed in this encounter. Follow Up: Continue NST/ BPP. Patient is to return to office in 1 week for routine OB appointment. Documented by Cynthia Hunt MA on behalf of: Rock Mendez NP documented in this encounter [facility] 07-09-2025 History of Presen t illness Narrative [...] nursing note reviewed. Exam conducted with a dock operator present. Vitals: Estimated body mass index [...] week for routine OB appointment. Documented by Rock Mendez NP on behalf of: Yasmani Abdullahi DO documented in this encounter [facility] 07-05-2025 History of Presen t illness [...] nursing note reviewed. Exam conducted with a dock operator present. Vitals: Estimated body mass index is 35.55 kg/m as calculated from the following: Height as of 12/15/22: 5' 8 . Weight as of this encounter: 233 lb 12.8 oz. BP: 110/78 Patient's last menstrual period was 10/21/2024. ASSESSMENT & PLAN ICD-10-CM 1. 36 weeks gestation of ([facility]) Z3A.36 POCT urinalysis dipstick manually resulted 2. Third trimester ([facility]) Z34.93 POCT urinalysis dipstick manually resulted CULTURE, GROUP B STREP WITH SUSCEPTIBLITY CULTURE, GROUP B STREP WITH SUSCEPTIBLITY 3. Multigravida of advanced maternal age in third trimester ([facility]) O09.523 4. History of molar Z87.59 5. Antepartum multigravida of advanced maternal age ([facility]) O09.529 Patient is doing well but [...] Yasmani Abdullahi DO documented in this encounter [facility] 06-21-2025 History of Presen t [...] nursing note reviewed. Exam conducted with a dock operator present. Vitals: Estimated body mass index is 35.12 kg/m as calculated from the following: Height as of 12/15/22: 5' 8 . Weight as of this encounter: 231 lb. BP: 124/72 Patient's last menstrual period was 10/21/2024. ASSESSMENT & PLAN ICD-10-CM 1. Third trimester ([facility]) Z34.93 POCT urinalysis dipstick manually resulted 2. 34 weeks gestation of ([facility]) Z3A.34 3. Multigravida of advanced maternal age in third trimester ([facility]) O09.523 Patient presents today for a [...] Yasmani Abdullahi DO documented in this encounter [facility] 06-07-2025 History of Presen t [...] nursing note reviewed. Exam conducted with a dock operator present. Vitals: Estimated body mass index is 35.14 kg/m as calculated from the following: Height as of 12/15/22: 5' 8 . Weight as of this encounter: 231 lb 1.9 oz. BP: 112/70 Patient's last menstrual period was 10/21/2024. ASSESSMENT & PLAN ICD-10-CM 1. Third trimester ([facility]) Z34.93 POCT urinalysis dipstick manually resulted 2. 32 weeks gestation of ([facility]) Z3A.32 POCT urinalysis dipstick manually resulted 3. Multigravida of advanced maternal age in third trimester ([facility]) O09.523 US biophysical profile w non stress test Patient presents today for a routine obstetrics appointment. Patient is currently 32w5d with a Estimated Date of Delivery: 07/28/25. Patient given orders for NST/BPP's to be started until delivery. Orders will also be sent to [facility]. Patient to return to clinic in 2 weeks. Documented by Eugenia Bridges LPN on behalf of: Yasmani Abdullahi DO documented in this encounter [facility] 05-22-2025 History of Presen t [...] nursing note reviewed. Exam conducted with a dock operator present. Vitals: Estimated body mass index is 34.64 kg/m as calculated from the following: Height as of 12/15/22: 5' 8 . Weight as of this encounter: 227 lb 12.8 oz. BP: 110/72 Patient's last menstrual period was 10/21/2024. ASSESSMENT & PLAN ICD-10-CM 1. 30 weeks gestation of ([facility]) Z3A.30 POCT urinalysis dipstick manually resulted 2. Third trimester ([facility]) Z34.93 POCT urinalysis dipstick manually resulted 3. Antepartum multigravida of advanced maternal age ([facility]) O09.529 POCT urinalysis dipstick manually resulted 4. Gestational diabetes mellitus (GDM), antepartum, gestational diabetes method of control unspecified ([facility]) O24.419 POCT urinalysis dipstick manually resulted [...] Yasmani Abdullahi DO documented in this encounter [facility] 05-10-2025 History of Presen t [...] nursing note reviewed. Exam conducted with a dock operator present. Vitals: Estimated body mass index is 34.25 kg/m as calculated from the following: Height as of 12/15/22: 5' 8 . Weight as of this encounter: 225 lb 4 oz. BP: 124/78 Patient's last menstrual period was 10/21/2024. ASSESSMENT & PLAN ICD-10-CM 1. size consistent with dates, antepartum ([facility]) Z34.90 US OB follow up transabdominal approach 2. Third trimester ([facility]) Z34.93 POCT urinalysis dipstick manually resulted 3. 28 weeks gestation of ([facility]) Z3A.28 Patient presents today for a routine obstetrics appointment. Patient is currently 28w5d with a Estimated Date of Delivery: 07/28/25. Patient to return to clinic in 2 weeks for return OB and Growth US. Patient is going to [facility] after this appointment to receive her Rhogam injection. Patient will call office with any concerns or questions in the meantime. Documented by Eugenia Bridges LPN on behalf of: Yasmani Abdullahi DO documented in this encounter [facility] 04-10-2025 History of Presen t [...] nursing note reviewed. Exam conducted with a dock operator present. Vitals: Estimated body mass index is 33.88 kg/m as calculated from the following: Height as of 12/15/22: 5' 8 . Weight as of this encounter: 222 lb 12.8 oz. BP: 108/68 Patient's last menstrual period was 10/21/2024. ASSESSMENT & PLAN ICD-10-CM 1. Second trimester ([facility]) Z34.92 POCT urinalysis dipstick manually resulted 2. 24 weeks gestation of ([facility]) Z3A.24 POCT urinalysis dipstick manually resulted [...] Yasmani Abdullahi DO documented in this encounter [facility] 03-15-2025 History of Presen t [...] to check FSBS. Blood Glucose Monitoring Suppl ([employer] Glucometer) w/Device kit 1 kit, Does not [...] nursing note reviewed. Exam conducted with a dock operator present. Vitals: Estimated body mass index [...] CBC drawn yesterday. Patient was provided with evaluation manager email to send FSBS results & more forms we given to patient to track sugars. Patient to RTC in 4 weeks for routine OB care. Documented by Eugenia Bridges LPN on behalf of: Yasmani Abdullahi DO documented in this encounter [facility] 02-15-2025 History of Presen t [...] Past Medical History: Diagnosis Date Anxiety Melanoma ([facility]) 2021 HISTORY PAST MEDICAL HISTORY SOCIAL HISTORY Past Medical History: Diagnosis Date Anxiety Melanoma ([facility]) 2021 on chest Social [...] nursing note reviewed. Exam conducted with a dock operator present. Vitals: Estimated body mass index [...] by Eugenia Bridges LPN on behalf of: aYsmani Abdullahi DO documented in this encounter [facility] 01-18-2025 History of Presen t [...] nursing note reviewed. Exam conducted with a dock operator present. Vitals: Estimated body mass index [...] or undercooked meat, and [facility]. Patient has been consulted regarding any further [...] to AMA. Discussed level II ultrasound through [facility] and patient defers at this time [...] Yasmani Abdullahi DO documented in this encounter [facility] 12-05-2024 Telephone encount er Note Pt is OB and scheduled for intake in December. She called with complaints of kidney pain and left abd pain. Per nurse patient advised to be evaluated at Hospital. [facility]. She also had questions about Zoloft during . Pt transferred to nurse to discuss. [facility] 12-05-2024 Miscellaneous Notes Formattin g [...] nurse to discuss. documented in this encounter [facility] 02-04-2023 Evaluation note Encounter Date Diagnosis Assessment Notes Jan, Family history of BRCA gene mutation (ICD-10 - Z84.81) Discussed family history. Pt would like to be checked. She has weighed the risks and benefits and states she would be interested in a B mastectomy if indicated. After calling [facility], the decision was to fax lab order to [facility]. Order handwritten. Jan, Family history of breast cancer (ICD-10 - Z80.3) Mamm ordered. Jan, Screening mammogram for breast cancer (ICD-10 - Z12.31) [facility] 10-21-2022 Evaluation note* Encounter Date Diagnosis Assessment Notes Treatment Notes Treatment Clinical Notes Jul, Strep pharyngitis (ICD-10 - J02.0) [facility] 03-23-2022 Evaluation note* Encounter Date Diagnosis [...] were not corrected during the review process. [facility] 03-01-2022 History general Narrative - Reported* Type Description Date Medical History post pardom depression Surgical History wisdom teeth Surgical History D&C Surgical History melanoma excision 12/16/21 Hospitalization History child x4 [facility] 03-01-2022 History general Narrative - Reported* Type Description Date Medical History post pardom depression Medical History Anxiety, generalized Surgical History wisdom teeth Surgical History D&C Surgical History melanoma excision 12/16/21 Hospitalization History child x4 Hospitalization History see surgical hx [facility] Other Evaluation noteNo assessment information available [facility] Work Phone: evaluation noteNo InformationNortUniversal Health Services [facility] Other Evaluation note* Diagnosis Onset Date Resolution Status Mass of skin of chest acute [facility] Work Phone: Evaluation note* Diagnosis Onset Date Resolution Status Mass of skin of chest acute Right lower lobe pneumonia n oneactive [facility] Work Phone: Evaluation note* Diagnosis First [...] encounter [facility] Diagnosis Second trimester ([facility]) state, incidental 24 weeks gestation of ([facility]) Diabetes mellitus screening Screening for diabetes mellitus documented in this encounter [facility]* Diagnosis size consistent with dates, antepartum ([facility])- Primary Third trimester ([facility]) state, incidental 28 weeks gestation of ([facility]) Antepartum multigravida of advanced maternal age ([facility]) documented in this [facility]* Diagnosis 30 weeks gestation of ([facility]) Third trimester ([facility]) state, incidental Antepartum multigravida of advanced maternal age ([facility]) Gestational diabetes mellitus (GDM), antepartum, gestational diabetes [...] state, incidental documented in this [facility]* Diagnosis Third trimester ([facility]) state, incidental 38 weeks gestation of ([facility]) [facility] Additional Instructions If your symptoms return/worsen or you develop any further concerns or symptoms please see your doctor or return to the emergency department immediately. As discussed please be sure to follow-up with your [employer] and primary care provider. If you develop worsening pain, vaginal bleeding, fevers, other symptoms as we discussed please return the emergency department for reevaluation.[facility] Work Phone: Reason for referral (narrative)No reason for referral information availableAv[facility] Work Phone: Summary Purpose Family History [...] and content) DATE CREATED AUTHOR 04/05/2018 [facility] DATE CREATED AUTHOR AUTHOR'S ORGANIZ ATION 06/15/2018 [facility] DATE CREATED AUTHOR AUTHOR'S ORGANIZ ATION 12/15/2018 [facility] DATE CREATED AUTHOR AUTHOR'S ORGANIZ ATION 12/25/2018 [facility] DATE CREATED AUTHOR AUTHOR'S ORGANIZ ATION 04/03/[address] [facility] DATE CREATED AUTHOR AUTHOR'S ORGANIZ ATION 07/23/2025 [facility] EPIC REASON FOR VISIT (unrecogniz ed section and content) Reason Comments Routine Visit Care Teams (unrecognized sec tion and content) Team Status: Inactive Member Role Status Dates Marianela Oliva MD Primary Care Provider Active Mario Perez DO [facility] Attending Provider Active Team Status: Active Member [...] 17, 2024 End: May 17, 2024 Mario Loera [facility] DO [facility] Attending Provider Active Start: May 17, 2024 [...] August 15, 2024 End: August 15, 2024 Mattress Weaver 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 Specialty Start Date End Date Marianela Oliva MD [address] [place] [facility] [place] [id number] PCP - General Family Medicine 01/27/24 Team [...] December 27, 2024 End: December 27, 2024 Mattress Weaver 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 Specialty Start Date End Date Marianela Oliva MD [address] [place] [id number] PCP - General Family Medicine 01/27/24 Mattress Weaver 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 Specialty Start Date End Date Marianela Oliva MD [address] [place] [phone] PCP - General Family Medicine 01/27/24 Mattress Weaver 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 Specialty Start Date End Date Marianela Oliva MD PCP - General Family Medicine 01/27/24 Mattress Weaver 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 Specialty Start Date End Date Marianela Oliva MD PCP - General Family Medicine 01/27/24 Mattress Weaver 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 Specialty Start Date End Date Marianela Oliva MD PCP - General Family Medicine 01/27/24 Mattress Weaver 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 Specialty Start Date End Date Marianela Oliva MD PCP - General Family Medicine 01/27/24 Mattress Weaver Relationship Specialty Start Date End Date Marianela [...] March 14, 2025 End: March 14, 2025 Mattress Weaver Relationship Specialty Start Date End Date Marianela Oliva MD [address] [place] [address] PCP - General Family Medicine 01/27/24 Mattress Weaver Relationship Specialty Start Date End Date Marianela Oliva MD [address] [facility] [place] [phone] PCP - General Family Medicine 01/27/24 Mattress Weaver Relationship Specialty Start Date End Date Marianela Oliva MD [address] [facility] [place] [address] PCP - General Family Medicine 01/27/24 Mattress Weaver Relationship Specialty Start Date End Date Marianela Oliva MD [address] [facility] [place] [address] PCP - General Family Medicine 01/27/24 Mattress Weaver Relationship Specialty Start Date End Date Marianela Oliva MD [address] [place] [address] PCP - General Family Medicine 01/27/24 Team Status: Inactive Member Role Status Dates Marianela Oliva MD Primary Care Provider Active Start: April 02, 2025 End: April 02, 2025 Mario Perez - [facility] , DO [facility] Attending Provider Active Start: April 02, 2025 End: April 02, 2025 Team Status: Inactive Member Role Status Dates Marianela Oliva MD Primary Care Provider Active Start: June 12, 2025 End: June 12, 2025 Marianela Oliva MD Attending Provider Active St art: June 12, 2025 End: June 12, 2025 Mattress Weaver Relationship Specialty Start Date End Date Marianela Oliva MD [address] [place] [phone] PCP - General Family Medicine 01/27/24 Mattress Weaver Relationship Specialty Start Date End Date Marianela Oliva MD [address] [place] [address] PCP - General Family Medicine 01/27/24 Mattress Weaver Relationship Specialty Start Date End Date Marianela Oliva MD [address] [place] [address] PCP - General Family Medicine 01/27/24 Mattress Weaver Relationship Specialty Start Date End Date Marianela Oliva MD [address] [place] [address] PCP - General Family Medicine [...] BE BASED ON THE PRIMARY CLINICAL RECORDS. [employer] [facility]. provides no warranty or guarantee of the accuracy or completeness of information in this document.
--- OUTSIDE RECORDS SUMMARY | 2025-07-24 07:38 | XMS_ITS | Encounter Summary ---
Author Organization [facility] Address [address] [place] [address] Care Team Providers Care Loom Operator Apprentice Name Role Phone Kathy Reynaga MD Primary Care Provider [phone] Encounter Details Date Type Department Care Team (Late st Contact Info) Description 03/29/2025 Abstract [facility] [address] [facility] [place] [address] Yasmani Abdullahi DO [address] [place], [place] [id number] Social History Tobacco Use Types Packs/Day Years [...] EST Visit [facility] [address] [place] [phone] Yasmani Abdullahi DO [address] [place], [place] [id number] documented as of this encounter Visit Diagnoses Not on filedocumented in this encounter Care Teams Loom Operator Apprentice Relationship Specialty Start Date End Date Kathy Reynaga MD [address] [place] [phone] PCP - General Family Medicine 01/27/24 documented as of this encounter
--- OUTSIDE RECORDS SUMMARY | 2025-07-24 07:38 | XMS_ITS | Clinical Summary ---
Author Organization [facility] Address [address] [place] [address] Care Team Providers Care Commercial Reporter Name Role Phone Kathy Reynaga MD Primary Care Provider [phone] Allergies No known active allergies Medications MV-Min-Fe [...] Encounters Date Type Department Care Team Description 07/19/2025 9:50 AM EDT Routine [facility] [address] [facility] [place] [phone] Lanie Mendez SAMUEL Third trimester ([facility]); 38 weeks gestation of ([facility]) 07/19/2025 Abstract [facility] [place] [address] Lanie Mendez, SAMUEL 07/19/2025 Bamboo flowsheet [facility] DURHAMGYN Macey [facility] [place] [address] Lanie Mendez, SAMUEL 07/16/2025 Clinisync Result Encounter [facility] External Department Unsolicited Marbella Abdullahi, DO 07/11/2025 Clinisync Result Encounter NOMS External Department Unsolicited Marbella Abdullahi, DO 07/09/2025 4:10 PM EDT Routine [facility] [place] [address] Marbella Abdullahi, DO Third trimester ([facility]) 07/09/2025 Bamboo flowsheet [facility] [address] [place] [address] Marbella Abdullahi, DO 07/05/2025 9:50 AM EDT Routine [facility] [place] [address] Marbella Abdullahi, DO 36 weeks gestation of ([facility]); Third trimester ([facility]); Multigravida of advanced maternal age in third trimester ([facility]); History of molar ; Antepartum multigravida of advanced maternal age ([facility]) 07/05/2025 Bamboo flowsheet [facility] [address] [place] [address] Marbella Abdullahi, DO 07/04/2025 Clinisync Result Encounter NOMS External Department Unsolicited Marbella Abdullahi, DO 06/27/2025 Clinisync Result Encounter NOMS External Department Unsolicited Marbella Abdullahi, DO 06/22/2025 Clinisync Result Encounter NOMS External Department Unsolicited Marbella Abdullahi, DO 06/21/2025 9:40 AM EDT Routine [facility] [address] [place] [address] Marbella Abdullahi, DO Third trimester ([facility]); 34 weeks gestation of ([facility]); Multigravida of advanced maternal age in third trimester ([facility]) 06/21/2025 9:00 AM EDT Ancillary Procedure [facility] [address] [place] [address] History of molar ; Gestational diabetes mellitus (GDM), antepartum, gestational diabetes method of control unspecified ([facility]); Antepartum multigravida of advanced maternal age ([facility]) 06/19/2025 Clinisync Result Encounter NOMS External Department Unsolicited Marbella Abdullahi, DO 06/07/2025 9:50 AM EDT Routine [facility] [address] [facility] [place] [address] Marbella Abdullahi, Third trimester ([facility]); 32 weeks gestation of ([facility]); Multigravida of advanced maternal age in third trimester ([facility]); History of molar ; Gestational diabetes mellitus (GDM), antepartum, gestational diabetes method of control unspecified ([facility]); Antepartum multigravida of advanced maternal age ([facility]) 06/07/2025 Bamboo flowsheet [facility] [address] [facility] [place] [address] Marbella Abdullahi, DO 05/31/2025 Telephone [facility] [address] [place] [address] Luz Gonsalez LPN 05/22/2025 11:00 AM EDT Routine [facility] [address] [place] [address] Marbella Abdullahi DO 30 weeks gestation of ([facility]); Third trimester ([facility]); Antepartum multigravida of advanced maternal age ([facility]); Gestational diabetes mellitus (GDM), antepartum, gestational diabetes method of control unspecified ([facility]) 05/22/2025 10:30 AM EDT Ancillary Procedure [facility] [place] [address] Antepartum multigravida of advanced maternal age ([facility]) 05/10/2025 8:40 AM ED[place] [address] Marbella Abdullahi DO size consistent with dates, antepartum ([facility]) (Primary Dx); Third trimester ([facility]); 28 weeks gestation of ([facility]); Antepartum multigravida of advanced maternal age ([facility]) 05/10/2025 Bamboo [place] [address] Marbella Abdullahi DO 05/09/2025 [place] [address] Marbella Abdullahi DO from Last 3 Months [...] Sign Reading Time Taken Comments Blood Pressure 140/82 07/19/2025 9:34 AM EDT Pulse - - Temperature - - Respiratory Rate - - Oxygen Saturation - - Inhaled Oxygen Concentration - - Weight 107 kg (236 lb) 07/19/2025 9:34 AM EDT Height 172.7 cm (5' 8 ) 12/15/2022 12:00 PM EST Body Mass Index 35.88 12/15/2022 12:00 PM EST Plan of Treatment Upcoming Encounters Date Type Department Care Team (Late st Contact Info) Description 08/28/2025 10:10 AM EST Visit [facility] [address] [facility] [address] Marbella Abdullahi DO [address] [facility] [place] [address] Procedures Procedure Name Priority Date/Time Associated Diagnosis Comments POCT URINALYSIS DIPSTICK Routine 07/19/2025 9:36 AM EDT Third trimester ([facility]) US OB BPP W NON-STRESS 07/16/2025 8:29 AM EDT US OB BPP W NON-STRESS 07/11/2025 9:20 AM EDT POCT URINALYSIS DIPSTICK Routine 07/09/2025 4:44 PM EDT Third trimester ([facility]) POCT URINALYSIS DIPSTICK Routine 07/05/2025 9:55 AM EDT 36 weeks gestation of ([facility]) Third trimester ([facility]) CULTURE, GROUP B STREP WITH SUSCEPTIBLITY Routine 07/05/2025 9:43 AM EDT Third trimester ([facility]) US OB BPP W NON-STRESS 07/04/2025 9:15 [...] ([facility]) from Last 3 Months Results * POCT urinalysis dipstick manually resulted (07/19/2025 9:36 AM EDT) Only the most recent of7 resultswithin the time period is included. Color, [...] Nitrite, UA Negative Negative - Positive Urine 07/19/2025 9:36 AM EDT Lanie Mendez NP POINT OF CARE TEST ENTER/EDIT ORDERABLES Final Result * US OB BPP W NON-STRESS (07/16/2025 8:29 AM EDT) Only the most recent of6 resultswithin the time period is included. Anatomical Region Laterality Modality Other 07/16/2025 8:29 AM EDT Narrative 07/16/2025 8:32 [place] [address] Ultrasound Report Signed Patient: TREVA GOETZ MR#: [id number] : 1990 Acct:[id number] Age/Sex: 35 / F ADM Date: 07/16/25 Loc: [facility] 250-[address]: Marbella Abdullahi D.O. Ordering Physician: Marbella Abdullahi D.O. Date of Service: 07/16/25 Procedure(s): US OB BPP w non-stress Accession Number(s): [id number] cc: Kathy Reynaga M.D.; Marbella Abdullahi D.O. [address] [address] Patient Name: TREVA GOETZ MRN: [id number] date: 1990 Sex: F Assigned Patient Location: [facility] Current Patient Location: [facility] Accession/Order Number: [id number] Exam Date: 07/16/2025 07:36 Report Date: 07/16/2025 [...] Barnhart M.D. 07/16/2025 8:29 AM Dictation Location: [place] [address] Electronically authenticated by: [id number] Y Date: 07/16/2025 08:29 Dictated By: Annel Barnhart M.D. Signed By: 07/16/25831 DD/ 8 TD/TT: Cider Press Operator: Procedure Note Radiology, Radiologist, - 07/16/2025 [place] [address] Ultrasound Report Signed Patient: TREVA GOETZ EMR#: [id number] : 1990Acct:[id number] Age/Sex: 35 / FADM Date: 07/16/25 Loc: [facility] 250-[address]: Marbella Abdullahi D.O. Ordering Physician: Marbella Abdullahi D.O. Date of Service: 07/16/25 Procedure(s): US OB BPP w non-stress Accession Number(s): [id number] cc: Kathy Reynaga M.D.; Marbella Abdullahi D.O. [place] [id number] Patient Name: TREVA GOETZ MRN: [id number] date: 1990 Sex: F Assigned Patient Location: [facility] Current Patient Location: [facility] Accession/Order Number: [id number] Exam Date: 07/16/2025 07:36 Report Date: 07/16/2025 [...] Barnhart M.D. 07/16/2025 8:29 AM Dictation Location: [place] [address] Electronically authenticated by: [id number] Y Date: 508:29 Dictated By: Annel Barnhart M.D. Signed By:07/16/25 0832 DD/ 8 TD/TT: Cider Press Operator: Marbella Abdullahi DO [facility] Final Result * CULTURE, GROUP B STREP WITH SUSCEPTIBLITY (07/05/2025 9:43 AM EDT) Swab 07/05/2025 9:43 AM EDT Marbella Kaylen DO LAB BLOOD ORDERABLES Final [...] 3 Months Insurance [employer] Care Teams Commercial Reporter Relationship Specialty Start Date End Date Kathy Reynaga MD [address] [place] [address] PCP - General Family Medicine 01/27/24
[2025-07-24 08:04] VITALS: BP 119/75; PULSE 87
== END 2025-07-24 08:35 | disposition home or self-care (01) ==
LOC: US 07:34 → FBC 07:36
PROVIDERS: Family Provider Family Medicine; PCP Family Medicine; Visit Provider Obstetrics & Gynecology
DX: O26.893 Other specified pregnancy related conditions, third trimester (principal); O09.523 Supervision of elderly multigravida, third trimester; Z3A.39 39 weeks gestation of pregnancy
CPT/HCPCS: 76818

== ENCOUNTER 2025-07-26 05:11 | Inpatient (IN) | payer OTHER, SELFPAY ==
[2025-07-26] VITALS (61 sets, daily range): BP systolic 110–158; BP diastolic 58–96; PULSE 63–107; TEMP 36.3–36.8
--- OUTSIDE RECORDS SUMMARY | 2025-07-26 05:17 | XMS_ITS | CCD ---
Author Organization [facility] Care Team Providers Care Snow Groomer Name Role Phone OLIVA, MARIANELA E Unavailable Unavailable OLIVA, MARIANELA E Unavailable Unavailable OLIVA, MARIANELA E Unavailable Unavailable Macario Jarvis Attending Unavailable OLIVA, [phone] UNKNOWN Primary Care Unavailable HEDGES, CHAU Admitting Unavailable HEDGES, CHAU Attending Unavailable HEDGES, CHAU Referring Unavailable OLIVA, [phone] UNKNOWN Primary Care Unavailable HEDGES, CHAU W [...] Provider Kuns, DO Mario P Attending Provider [phone] MD Marianela Oliva Primary Care Provider Kuns - [facility], DO Mario P Attending Provider MD Marianela Oliva Attending Provider MD Derrick Wilson Attending Provider NO FAMILY, PHYSICIAN Primary Care Provider Unava ilable SAUL Reddy Attending Provider Marianela Oliva MD Primary Care Provider [phone] Marianela Oliva MD Primary Care Provider Dasia SANTAMARIA Jose Luana Emergency Provider Marianela Oliva MD Primary Care Provider Dasia SANTAMARIA Jose Luana Emergency Provider Yasmani Abdullahi DO Attending Provider Marianela Oliva MD Primary Care Provider [phone] Marianela Oliva MD Primary Care Provider Marianela [...] Care Unavailable Ronnell, Marianela E Attending Unavailable Oliav, Marianela E Admitting Unavailable Kaylen, Yasmani Attending [...] Unavailable Marianela Oliva MD Primary Care Provider [phone] Yasmani Abdullahi DO Attending Provider [phone] [facility] Mario SANTAMARIA Attending Provider Marianela Oliva MD Attending Provider [phone] KAYLEN, YASMANI Attending Unavailable KAYLEN, YASMANI Attending [...] Drug Class(es) Dates Sig (Normalized) Sig (Original) [id number] 200 actuat albuterol 0.09 mg/actuat metered dose [...] oral tablet (6 sources) alpha-Adrenergic Agonist, Uncompetitive Z-qhrcqf-L-aspartat e Receptor Antagonist, Sigma-1 Agonist Start: 08-11-2024 [...] Facility US OB BPP W NON-STRESS on 07-24-2025 [place] [address] Ultrasound Report Signed Patient: NORIS GOETZ MR#: [id number] : 1990 Acct:[id number] Age/Sex: 35 / F ADM Date: 07/24/25 Loc: [facility] 250-[address]: Yasmani Abdullahi D.O. Ordering Physician: Yasmani Abdullahi D.O. Date of Service: 07/24/25 Procedure(s): US OB BPP w non-stress Accession Number(s): [id number] cc: Marianela Oliva M.D.; Yasmani Abdullahi D.O. [address] [address] Patient Name: NORIS GOETZ MRN: TBH:[id number] date: 1990 Sex: F Assigned Patient Location: [facility] Current Patient Location: [facility] Accession/Order Number: [id number] Exam Date: 07/24/2025 07:38 Report Date: 07/24/2025 08:13 At the request of: YASMANI ABDULLAHI DO Procedure: US OB BPP w non-stress BIOPHYSICAL PROFILE: CLINICAL INFORMATION: Advanced maternal age COMPARISON: 07/14/2025 There is a single live intrauterine gestation in cephalic presentation. The reported gestational age is 39 weeks 3 days. The heart rate measures 138 beats per minute. FINDINGS: TONE: 1 or [...] greater than 2 cm [Y] 2/2 GRAYSON: 18.3 cm. This is in upper normal range. Total score: 8/8 US/US OB BPP w non-stress IMPRESSION: NORMAL BIOPHYSICAL PROFILE Impression dictated by: Annel Barnhart M.D. 07/24/2025 8:13 AM Dictation Location: [place] [address] Electronically authenticated by: [id number] Y Date: 07/24/2025 08:13 Dictated By: Annel Barnhart M.D. Signed By: 07/24/25815 DD/ 2 TD/TT: Certified Respiratory Therapist: [facility] Radiology Radiologjoni blake MD - 07/24/2025 [place] [address] Ultrasound Report Signed Patient: NORIS GOETZ MR#: [id number] : 1990 Acct:[id number] Age/Sex: 35 / F ADM Date: 07/24/25 Loc: [facility] 250-[address]: Yasmani Abdullahi D.O. Ordering Physician: Yasmani Abdullahi D.O. Date of Service: 07/24/25 Procedure(s): US OB BPP w non-stress Accession Number(s): [id number] cc: Marianela Oliva M.D.; Yasmani Abdullahi D.O. [place] [id number] Patient Name: NORIS GOETZ MRN: [facility]:[id number] date: 1990 Sex: F Assigned Patient Location: [facility] Current Patient Location: [facility] Accession/Order Number: [id number] Exam Date: 07/24/2025 07:38 Report Date: 07/24/2025 08:13 At the request of: YASMANI ABDULLAHI DO Procedure: US OB BPP w non-stress BIOPHYSICAL PROFILE: CLINICAL INFORMATION: Advanced maternal age COMPARISON: 07/14/2025 There is a single live intrauterine gestation in cephalic presentation. The reported gestational age is 39 weeks 3 days. The heart rate measures 138 beats per minute. FINDINGS: TONE: 1 or [...] greater than 2 cm [Y] 2/2 GRAYSON: 18.3 cm. This is in upper normal range. Total score: 8/8 US/US OB BPP w non-stress IMPRESSION: NORMAL BIOPHYSICAL PROFILE Impression dictated by: Annel Barnhart M.D. 07/24/2025 8:13 AM Dictation Location: [place] [address] Electronically authenticated by: [id number] Y Date: 07/24/2025 08:13 Dictated By: Annel Barnhart M.D. Signed By: 07/24/25815 DD/ 2 TD/TT: Certified Respiratory Therapist: [facility] Radiology Study observation (narrative) [facility] OB BPP W NON-STRESS Ordered By: Radiologist Radiology on 07-24-2025 [facility] Work Phone: Urinalysis macro (dipstick) panel (U)on 07-19-2025 Bilirubin, UA Negative Negative - 4(70) +++ mg/dL [facility] Blood, UA Negative Negative - 50 Tavon/mcL [facility] Clarity, UA Clear [facility] Color, UA Yellow [facility] Glucose, UA Negative Negative - 2000(110) ++++ mg/dL [facility] Interpretation and review of laboratory results Normal [facility] Ketones, UA Negative Negative - 160(16) ++++ mg/dL [facility] Leukocytes, UA Negative Negative - 500+++ Bertha/mcL [facility] Nitrite, UA Negative Negative - Positive [facility] pH, UA 7 5 - 9 [facility] Protein, UA Negative Negative - 2000(20) ++++ mg/dL [facility] Spec Grav, UA 1.015 1 - 1.03 [facility] Urobilinogen, UA 1.0 0.2 - 12 mg/dL [facility] US OB BPP W NON-STRESS on 07-16-2025 [place] [address] Ultrasound Report Signed Patient: NORIS GOETZ MR#: [id number] : 1990 Acct:[id number] Age/Sex: 35 / F ADM Date: 07/16/25 Loc: [facility] 250-[address]: Yasmani Abdullahi D.O. Ordering Physician: Yasmani Abdullahi D.O. Date of Service: 07/16/25 Procedure(s): US OB BPP w non-stress Accession Number(s): [id number] cc: Marianela Oliva M.D.; Yasmani Abdullahi D.O. The [place] [address] Patient Name: NORIS GOETZ MRN: [facility]:[id number] date: 1990 Sex: F Assigned Patient Location: [facility] Current Patient Location: [facility] Accession/Order Number: [id number] Exam Date: 07/16/2025 07:36 Report Date: 07/16/2025 [...] [Y] 2/2 GRAYSON: 17.9 cm Total score: 8 US/US OB BPP w non-stress IMPRESSION: NORMAL BIOPHYSICAL PROFILE Impression dictated by: Annel Barnhart M.D. 07/16/2025 8:29 AM Dictation Location: [place] [address] Electronically authenticated by: [id number] Y Date: 07/16/2025 08:29 Dictated By: Annel Barnhart M.D. Signed By: 07/16/25831 DD/ 8 TD/TT: Certified Respiratory Therapist: [facility] Radiology, Radiologi MD lou - 07/16/2025 [place] [address] Ultrasound Report Signed Patient: NORIS GOETZ MR#: [id number] : 1990 Acct:[id number] Age/Sex: 35 / F ADM Date: 07/16/25 Loc: [facility] 250-[address]: Yasmani Abdullahi D.O. Ordering Physician: Yasmani Abdullahi D.O. Date of Service: 07/16/25 Procedure(s): US OB BPP w non-stress Accession Number(s): [id number] cc: Marianela Oliva M.D.; Yasmani Abdullahi D.O. The [address] [address] Patient Name: NORIS GOETZ MRN: [facility]:[id number] date: 1990 Sex: F Assigned Patient Location: [facility] Current Patient Location: [facility] Accession/Order Number: [id number] Exam Date: 07/16/2025 07:36 Report Date: 07/16/2025 [...] Barnhart M.D. 07/16/2025 8:29 AM Dictation Location: [place] [address] Electronically authenticated by: [id number] Y Date: 07/16/2025 08:29 Dictated By: Annel Barnhart M.D. Signed By: 07/16/25831 DD/ 8 TD/TT: Certified Respiratory Therapist: [facility] Radiology Study observation (narrative) [facility] US OB BPP W NON-STRESS Ordered By: Radiologist Radiology on 07-16-2025 [facility] Work Phone: US OB BPP W NON-STRESS on 07-11-2025 [place] [address] Ultrasound Report Signed Patient: NORIS GOETZ MR#: [id number] : 1990 Acct:[id number] Age/Sex: 35 / F ADM Date: 07/11/25 Loc: [facility] 250-[address]: Yasmani Abdullahi D.O. Ordering Physician: Yasmani Abdullahi D.O. Date of Service: 07/11/25 Procedure(s): US OB BPP w non-stress Accession Number(s): [id number] cc: Marianela Oliva M.D.; Yasmani Abdullahi D.O. The [address] [address] Patient Name: NORIS GOETZ MRN: [facility]:[id number] date: 1990 Sex: F Assigned Patient Location: [facility] Current Patient Location: [facility] Accession/Order Number: [id number] Exam Date: 07/11/2025 07:37 Report Date: 07/11/2025 09:20 At the request of: YASMANI ABDULLAHI DO Procedure: US OB BPP w non-stress Biophysical profile. Reason for exam: Advanced maternal age COMPARISON: 07/04/2025 TECHNIQUE: Transabdominal imaging of the gravid uterus was obtained. FINDINGS: The cable installer reports a BPP of 8 out of 8. GRAYSON is normal at 19.8 cm. heart rate 139 bpm. US/US OB BPP w non-stress IMPRESSION: BPP 8 out of 8. Impression dictated by: Minh Potter Jr., D.O. 07/11/2025 9:20 AM Dictation Location: [place] [address] Electronically authenticated by: [id number] Y Date: 07/11/2025 09:20 Dictated By: Minh Potter M.D. Signed By: 07/11/25921 DD/ 9 TD/TT: Certified Respiratory Therapist: [facility] Radiology Radiologjoni blake MD - 07/11/2025 [place] [id number] Ultrasound Report Signed Patient: NORIS GOETZ MR#: [id number] : 1990 Acct:[id number] Age/Sex: 35 / F ADM Date: 07/11/25 Loc: [facility] 250-[address]: Yasmani Abdullahi D.O. Ordering Physician: Yasmani Abdullahi D.O. Date of Service: 07/11/25 Procedure(s): US OB BPP w non-stress Accession Number(s): [id number] cc: Marianela Oliva M.D.; Yasmani Abdullahi D.O. [address] [address] Patient Name: NORIS GOETZ MRN: [facility]:[id number] date: 1990 Sex: F Assigned Patient Location: [facility] Current Patient Location: [facility] Accession/Order Number: [id number] Exam Date: 07/11/2025 07:37 Report Date: 07/11/2025 09:20 At the request of: YASMANI ABDULLAHI DO Procedure: US OB BPP w non-stress Biophysical profile. Reason for exam: Advanced maternal age COMPARISON: 07/04/2025 TECHNIQUE: Transabdominal imaging of the gravid uterus was obtained. FINDINGS: The cable installer reports a BPP of 8 out of 8. GRAYSON is normal at 19.8 cm. heart rate 139 bpm. US/US OB BPP w non-stress IMPRESSION: BPP 8 out of 8. Impression dictated by: Minh Potter Jr., D.O. 07/11/2025 9:20 AM Dictation Location: [place] [address] Electronically authenticated by: [id number] Y Date: 07/11/2025 09:20 Dictated By: Minh Potter M.D. Signed By: 07/11/25921 DD/ 9 TD/TT: Certified Respiratory Therapist: [facility] Radiology Study observation (narrative) [facility] US OB BPP W NON-STRESS Ordered By: Radiologist Radiology on 07-11-2025 [facility] Work Phone: Urinalysis macro (dipstick) panel (U)on 07-09-2025 Bilirubin, UA Negative Negative - 4(70) +++ mg/dL [facility] Blood, UA Negative Negative - 50 Tavon/mcL [facility] Clarity, UA Clear [facility] Color, UA Yellow [facility] Glucose, UA Negative Negative - 2000(110) ++++ mg/dL [facility] Interpretation and review of laboratory results Abnormal [facility] Ketones, UA Negative Negative - 160(16) ++++ mg/dL [facility] Leukocytes, UA 2+ Negative - 500+++ Bertha/mcL [facility] Nitrite, UA Negative Negative - Positive [facility] pH, UA 6 5 - 9 [facility] Protein, UA Negative Negative - 1999(20) ++++ mg/dL [facility] Spec Grav, UA 1.015 1 - 1.03 [facility] Urobilinogen, UA 0.2 0.2 - 12 mg/dL [facility] Urinalysis macro (dipstick) panel (U)on 07-05-2025 Bilirubin, UA Negative Negative - 4(70) +++ mg/dL [facility] Blood, UA Negative Negative - 50 Tavon/mcL [facility] Clarity, UA Clear [facility] Color, UA Yellow [facility] Glucose, UA Positive Negative - 1999(110) ++++ mg/dL [facility] Interpretation and review of laboratory results Abnormal [facility] Ketones, UA Negative Negative - 160(16) ++++ mg/dL [facility] Leukocytes, UA Positive Negative - 500+++ Bertha/mcL [facility] Nitrite, UA Negative Negative - Positive [facility] pH, UA 6.5 5 - 9 [facility] Protein, UA Negative Negative - 1999(20) ++++ mg/dL [facility] Spec Grav, UA 1.01 1 - 1.03 [facility] Urobilinogen, UA 1.0 0.2 - 12 mg/dL [facility] US OB BPP W NON-STRESS on 07-04-2025 [place] [address] Ultrasound Report Signed Patient: NORIS GOETZ MR#: [id number] : 1990 Acct:[id number] Age/Sex: 35 / F ADM Date: 07/04/25 Loc: US Attending Dr: Yasmani Abdullahi D.O. Ordering Physician: Yasmani Abdullahi D.O. Date of Service: 07/04/25 Procedure(s): US OB BPP w non-stress Accession Number(s): [id number] cc: Marianela Oliva M.D.; Yasmani Abdullahi D.O. The [place] [id number] Patient Name: NORIS GOETZ MRN: [facility]:[id number] date: 1990 Sex: F Assigned Patient Location: [facility] Current Patient Location: Accession/Order Number: [id number] Exam Date: 07/04/2025 07:33 Report Date: 07/04/2025 [...] Barnhart M.D. 07/04/2025 9:15 AM Dictation Location: [place] [address] Electronically authenticated by: [id number] Y Date: 07/04/2025 09:15 Dictated By: Annel Barnhart M.D. Signed By: 07/04/25917 DD/ 4 TD/TT: Certified Respiratory Therapist: [facility] RadiologyRuben MD - 07/04/2025 The [place] [id number] Ultrasound Report Signed Patient: NORIS GOETZ MR#: [id number] : 1990 Acct:[id number] Age/Sex: 35 / F ADM Date: 07/04/25 Loc: US Attending Dr: Yasmani Abdullahi D.O. Ordering Physician: Yasmani Abdullahi D.O. Date of Service: 07/04/25 Procedure(s): US OB BPP w non-stress Accession Number(s): [id number] cc: Marianela Oliva M.D.; Yasmani Abdullahi D.O. [place] [address] Patient Name: NORIS GOETZ MRN: [facility]:[id number] date: 1990 Sex: F Assigned Patient Location: [facility] Current Patient Location: Accession/Order Number: [id number] Exam Date: 07/04/2025 07:33 Report Date: 07/04/2025 [...] Barnhart M.D. 07/04/2025 9:15 AM Dictation Location: [place] [address] Electronically authenticated by: [id number] Y Date: 07/04/2025 09:15 Dictated By: Annel Barnhart M.D. Signed By: 07/04/25917 DD/ 4 TD/TT: Certified Respiratory Therapist: [facility] [employer] Radiology Study observation (narrative) [facility] US OB BPP W NON-STRESS Ordered By: Radiologist Radiology on 07-04-2025 [facility] [employer] Work Phone: US OB BPP W NON-STRESS on 06-27-2025 [place] [address] Ultrasound Report Signed Patient: NORIS GOETZ MR#: [id number] : 1990 Acct:[id number] Age/Sex: 35 / F ADM Date: 06/27/25 Loc: US Attending Dr: Yasmani Abdullahi D.O. Ordering Physician: Yasmani Abdullahi D.O. Date of Service: 06/27/25 Procedure(s): US OB BPP w non-stress Accession Number(s): [id number] cc: Marianela Oliva M.D.; Yasmani Abdullahi D.O. [place] [id number] Patient Name: NORIS GOETZ MRN: [id number]:[id number] date: 1990 Sex: F Assigned Patient Location: US Current Patient Location: Accession/Order Number: [id number] Exam Date: 06/27/2025 07:35 Report Date: 06/27/2025 08:36 At the request of: YASMANI ABDULLAHI DO Procedure: US OB BPP w non-stress BIOPHYSICAL PROFILE: CLINICAL INFORMATION: Multigravida of advanced maternal age COMPARISON: 06/22/2025 There is a single live intrauterine gestation in cephalic presentation. The reported gestational age is 35 weeks 4 days The heart rate [id number] beats per minute. FINDINGS: TONE: 1 or [...] Barnhart M.D. 06/27/2025 8:36 AM Dictation Location: [place] [address] Electronically authenticated by: [id number] Y Date: 06/27/2025 08:36 Dictated By: Annel Barnhart M.D. Signed By: 06/27/2539 DD/ 5 TD/TT: Certified Respiratory Therapist: [facility] Radiology, Radiologi MD lou - 06/27/2025 [place] [address] Ultrasound Report Signed Patient: NORIS GOETZ MR#: [id number] : 1990 Acct:[id number] Age/Sex: 35 / F ADM Date: 06/27/25 Loc: US Attending Dr: Yasmani Abdullahi D.O. Ordering Physician: Yasmani Abdullahi D.O. Date of Service: 06/27/25 Procedure(s): US OB BPP w non-stress Accession Number(s): [id number] cc: Marianela Oliva M.D.; Yasmani Abdullahi D.O. The [place] [address] Patient Name: NORIS GOETZ MRN: [facility]:[id number] date: 1990 Sex: F Assigned Patient Location: Current Patient Location: Accession/Order Number: [id number] Exam Date: 06/27/2025 07:35 Report Date: 06/27/2025 08:36 At the request of: YASMANI ABDULLAHI DO Procedure: US OB BPP w non-stress BIOPHYSICAL PROFILE: CLINICAL INFORMATION: Multigravida of advanced maternal age COMPARISON: 06/22/2025 There is a single live intrauterine gestation in cephalic presentation. The reported gestational age is 35 weeks 4 days The heart rate [id number] beats per minute. FINDINGS: TONE: 1 or [...] Barnhart M.D. 06/27/2025 8:36 AM Dictation Location: [place] [address] Electronically authenticated by: [id number] Y Date: 06/27/2025 08:36 Dictated By: Annel Barnhart M.D. Signed By: 06/27/25838 DD/ 5 TD/TT: Certified Respiratory Therapist: [facility] Radiology Study observation (narrative) [facility] US OB BPP W NON-STRESS Ordered By: Radiologist Radiology on 06-27-2025 [facility] Work Phone: US OB BPP W NON-STRESS on 06-22-2025 [place] [address] Ultrasound Report Signed Patient: NORIS GOETZ MR#: [id number] : 1990 Acct:[id number] Age/Sex: 35 / F ADM Date: 06/22/25 Loc: US Attending Dr: Yasmani Abdullahi D.O. Ordering Physician: Yasmani Abdullahi D.O. Date of Service: 06/22/25 Procedure(s): US OB BPP w non-stress Accession Number(s): [id number] cc: Marianela Oliva M.D.; Yasmani Abdullahi D.O. The [place] [id number] Patient Name: NORIS GOETZ MRN: [facility]:[id number] date: 1990 Sex: F Assigned Patient Location: [facility] Current Patient Location: Accession/Order Number: [id number] Exam Date: 06/22/2025 17:18 Report Date: 06/22/2025 [...] Flores M.D. 06/22/2025 9:47 PM Dictation Location: [place] [address] Electronically authenticated by: [id number] Y Date: 06/22/2025 21:47 Dictated By: Alfonzo Flores D.O. Signed By: 06/22/252149 DD/ 46 TD/TT: Certified Respiratory Therapist: [facility] Radiology, Radiologi MD lou - 06/22/2025 [place] [address] Ultrasound Report Signed Patient: NORIS GOETZ MR#: [id number] : 1990 Acct:[id number] Age/Sex: 35 / F ADM Date: 06/22/25 Loc: US Attending Dr: Yasmani Abdullahi D.O. Ordering Physician: Yasmani Abdullahi D.O. Date of Service: 06/22/25 Procedure(s): US OB BPP w non-stress Accession Number(s): [id number] cc: Marianela Oliva M.D.; Yasmani Abdullahi D.O. The [address] [address] Patient Name: NORIS GOETZ MRN: [facility]:[id number] date: 1990 Sex: F Assigned Patient Location: [facility] Current Patient Location: Accession/Order Number: [id number] Exam Date: 06/22/2025 17:18 Report Date: 06/22/2025 [...] Flores M.D. 06/22/2025 9:47 PM Dictation Location: [place] Electronically authenticated by: [id number] Y Date: 06/22/2025 21:47 Dictated By: Alfonzo Flores D.O. Signed By: 06/22/252149 DD/ 46 TD/TT: Certified Respiratory Therapist: [facility] [employer] Radiology Study observation (narrative) [facility] US OB BPP W NON-STRESS Ordered By: Radiologist Radiology on 06-22-2025 [facility] [employer] Work Phone: US OB FOLLOW UP TRANSABDOMIN [...] UA Negative Negative - 4(70) +++ mg/dL [facility] Blood, UA Negative Negative - 50 Tavon/mcL [facility] Clarity, UA Clear [facility] Color, UA Yellow [facility] Glucose, UA Negative Negative - 1999(110) ++++ mg/dL [facility] Interpretation and review of laboratory results Abnormal [facility] Ketones, UA Positive Negative - 160(16) ++++ mg/dL [facility] Leukocytes, UA 1+ Negative - 500+++ Bertha/mcL [facility] Nitrite, UA Negative Negative - Positive [facility] pH, UA 7 5 - 9 [facility] Protein, UA Negative Negative - 2000(20) ++++ mg/dL [facility] Spec Grav, UA 1.015 1 - 1.03 [facility] Urobilinogen, UA 1.0 0.2 - 12 mg/dL [facility] US OB BPP W NON-STRESS on 06-19-2025 [place] [address] Ultrasound Report Signed Patient: NORIS GOETZ MR#: [id number] : 1990 Acct:[id number] Age/Sex: 35 / F ADM Date: 06/19/25 Loc: [facility] 250-[address]: Yasmani Abdullahi D.O. Ordering Physician: Yasmani Abdullahi D.O. Date of Service: 06/19/25 Procedure(s): US OB BPP w non-stress Accession Number(s): [id number] cc: Marianela Oliva M.D.; Yasmani Abdullahi D.O. The [place] [id number] Patient Name: NORIS GOETZ MRN: [facility]:[id number] date: 1990 Sex: F Assigned Patient Location: Current Patient Location: US Accession/Order Number: [id number] Exam Date: 06/19/2025 11:08 Report Date: 06/19/2025 [...] Barnhart M.D. 06/19/2025 12:15 PM Dictation Location: [place] [address] Electronically authenticated by: [id number] Y Date: 06/19/2025 12:15 Dictated By: Annel Barnhart M.D. Signed By: 06/19/25 1217 DD/ 121 TD/TT: Certified Respiratory Therapist: [facility] Radiology Radiologjoni blake MD - 06/19/2025 [place] [address] Ultrasound Report Signed Patient: NORIS GOETZ MR#: [id number] : 1990 Acct:[id number] Age/Sex: 35 / F ADM Date: 06/19/25 Loc: [facility] 250-[address]: Yasmani Abdullahi D.O. Ordering Physician: Yasmani Abdullahi D.O. Date of Service: 06/19/25 Procedure(s): US OB BPP w non-stress Accession Number(s): [id number] cc: Marianela Oliva M.D.; Yasmani Abdullahi D.O. [place] [address] Patient Name: NORIS GOETZ MRN: [facility]:[id number] date: 1990 Sex: F Assigned Patient Location: US Current Patient Location: US Accession/Order Number: [id number] Exam Date: 06/19/2025 11:08 Report Date: 06/19/2025 [...] Barnhart M.D. 06/19/2025 12:15 PM Dictation Location: [place] [address] Electronically authenticated by: [id number] Y Date: 06/19/2025 12:15 Dictated By: Annel Barnhart M.D. Signed By: 06/19/25 1217 DD/ 14 TD/TT: Certified Respiratory Therapist: [facility] Radiology Study observation (narrative) [facility] US OB BPP W NON-STRESS Ordered By: Radiologist Radiology on 06-19-2025 [facility] Work Phone: Urinalysis macro (dipstick) panel (U)on 06-07-2025 Bilirubin, UA Negative Negative - 4(70) +++ mg/dL [facility] Blood, UA Negative Negative - 50 Tavon/mcL [facility] Clarity, UA Clear [facility] Color, UA Yellow [facility] Glucose, UA Negative Negative - 1999(110) ++++ mg/dL [facility] Interpretation and review of laboratory results Normal [facility] Ketones, UA Negative Negative - 160(16) ++++ mg/dL [facility] [facility] Leukocytes, UA Negative Negative - 500+++ Bertha/mcL [facility] Nitrite, UA Negative Negative - Positive [facility] pH, UA 7.5 5 - 9 [facility] Protein, UA Negative Negative - 1999(20) ++++ mg/dL [facility] Spec Grav, UA 1.005 1 - 1.03 [facility] Urobilinogen, UA 1.0 0.2 - 12 mg/dL [facility] US OB FOLLOW UP TRANSABDOMIN AL APPROACHon [...] UA Negative Negative - 4(70) +++ mg/dL [facility] Blood, UA Negative Negative - 50 Tavon/mcL [facility] Clarity, UA Clear [facility] Color, UA Yellow [facility] Glucose, UA Negative Negative - 1999(110) ++++ mg/dL [facility] Interpretation and review of laboratory results Normal [facility] Ketones, UA Negative Negative - 160(16) ++++ mg/dL [facility] Leukocytes, UA Negative Negative - 500+++ Bertha/mcL [facility] Nitrite, UA Negative Negative - Positive [facility] pH, UA 6.5 5 - 9 [facility] Protein, UA Negative Negative - 1999(20) ++++ mg/dL [facility] Spec Grav, UA 1.01 1 - 1.03 [facility] Urobilinogen, UA 1.0 0.2 - 12 mg/dL [facility] Urinalysis macro (dipstick) panel (U)on 05-10-2025 Bilirubin, UA Negative Negative - 4(70) +++ mg/dL [facility] Blood, UA Negative Negative - 50 Tavon/mcL [facility] Clarity, UA Clear [facility] Color, UA Yellow [facility] Glucose, UA Negative Negative - 1999(110) ++++ mg/dL [facility] Interpretation and review of laboratory results Abnormal [facility] Ketones, UA Positive Negative - 160(16) ++++ mg/dL [facility] Comment on above: Large Leukocytes, UA Negative Negative - 500+++ Bertha/mcL [facility] Nitrite, UA Negative Negative - Positive [facility] pH, UA 6.5 5 - 9 [facility] Protein, UA Trace Negative - 1999(20) ++++ mg/dL [facility] Spec Grav, UA 1.015 1 - 1.03 [facility] Urobilinogen, UA 0.2 0.2 - 12 mg/dL [facility] Urinalysis macro (dipstick) panel (U)on 04-10-2025 Bilirubin, UA Negative Negative - 4(70) +++ mg/dL [facility] Blood, UA Negative Negative - 50 Tavon/mcL [facility] Clarity, UA Clear [facility] Color, UA Yellow [facility] Glucose, UA Negative Negative - 1999(110) ++++ mg/dL [facility] Interpretation and review of laboratory results Normal [facility] Ketones, UA Negative Negative - 160(16) ++++ mg/dL [facility] Leukocytes, UA Negative Negative - 500+++ Bertha/mcL [facility] Nitrite, UA Negative Negative - Positive [facility] pH, UA 6.5 5 - 9 [facility] Protein, UA Negative Negative - 1999(20) ++++ mg/dL [facility] Spec Grav, UA 1.025 1 - 1.03 [facility] Urobilinogen, UA 1.0 0.2 - 12 mg/dL [facility] Albumin [Mass/volume] in Ser um or Plasma by Bromocresol green (BCG) dye binding methoOrdered By: Mario Perez on 04-02-2025 Albumin BCG dye [Mass/Vol] 3.4 g/dL Low 3.5-5.7 [facility] Cholesterol in LDL Calc [Mas s/Vol]Ordered By: Mario Perez on 04-02-2025 Cholesterol in LDL [Mass/Vol] 120 mg/dL High 0-100 [facility] Comment on above: LDL ATP III CLASSIFI CATIONLDL less than 100 mg/dL OptimalLDL 100-129 mg/dL Near or above optimalLDL 130-159 mg/dL Borderline highLDL 160-189 mg/dL HighLDL greater than 189 mg/dL Very high Cholesterol in VLDL Calc [Ma ss/Vol]Ordered By: Mario Perez on 04-02-2025 Cholesterol in VLDL [Mass/Vol] 26 mg/dL [facility] Employee Comp Metabolic Pane marcel 04-02-2025 Albumin [Mass/Vol] 3.4 g/dL Low 3.5-5.7 [facility] Comment on above: Performed By: #### P ILLAR TSH, PILLAR CBC, PILLAR BMP, PILLAR LIPID #### [facility] [address] [place] [address] GFR/1.73 sq M.predicted MDRD (S/P/Bld) [Vol rate/Area] mL/min/{1.73_m2} Normal [facility] Comment on above: Performed By: #### P ILLAR TSH, PILLAR CBC, PILLAR BMP, PILLAR LIPID #### [address] Employee Comp Metabolic Pane lOrdered By: Mario Perez on 04-02-2025 Albumin/Globulin [Mass ratio] 1.5 {ratio} [facility] Comment on above: Performed By: #### P ILLAR TSH, PILLAR CBC, PILLAR BMP, PILLAR LIPID #### [facility] [address] [place] [address] ALP [Catalytic activity/Vol] 39 U/L 34-104 [facility] Comment on above: Performed By: #### P ILLAR TSH, PILLAR CBC, PILLAR BMP, PILLAR LIPID #### [address] ALT [Catalytic activity/Vol] 10 U/L 7-52 [facility] Comment on above: Performed By: #### P ILLAR TSH, PILLAR CBC, PILLAR BMP, PILLAR LIPID #### [address] Anion gap [Moles/Vol] 8.5 mmol/L 6.0-15.0 [facility] Comment on above: Performed By: #### P ILLAR TSH, PILLAR CBC, PILLAR BMP, PILLAR LIPID #### [address] AST [Catalytic activity/Vol] 12 U/L Low 13-39 [facility] Comment on above: Performed By: #### P ILLAR TSH, PILLAR CBC, PILLAR BMP, PILLAR LIPID #### [address] Bilirubin [Mass/Vol] 0.3 mg/dL 0.3-1.0 [facility] Comment on above: Performed By: #### P ILLAR TSH, PILLAR CBC, PILLAR BMP, PILLAR LIPID #### [facility] [address] Calcium [Mass/Vol] 8.2 mg/dL Low 8.6-10.3 [facility] Comment on above: Performed By: #### P ILLAR TSH, PILLAR CBC, PILLAR BMP, PILLAR LIPID #### [facility] [address] Chloride [Moles/Vol] 106 mmol/L 98-107 [facility] Comment on above: Performed By: #### P ILLAR TSH, PILLAR CBC, PILLAR BMP, PILLAR LIPID #### [facility] [address] [place] [address] CO2 [Moles/Vol] 25.4 mmol/L 21.0-31.0 [facility] Comment on above: Performed By: #### P ILLAR TSH, PILLAR CBC, PILLAR BMP, PILLAR LIPID #### [facility] [address] [place] [address] Creatinine [Mass/Vol] 0.49 mg/dL Low 0.60-1.20 [facility] Comment on above: Performed By: #### P ILLAR TSH, PILLAR CBC, PILLAR BMP, PILLAR LIPID #### [facility] [address] [place] [address] Globulin (S) [Mass/Vol] 2.3 g/dL [facility] Comment on above: Performed By: #### P ILLAR TSH, PILLAR CBC, PILLAR BMP, PILLAR LIPID #### [facility] [address] [place] [address] Glucose [Mass/Vol] 92 mg/dL 70-100 [facility] Comment on above: Performed By: #### P ILLAR TSH, PILLAR CBC, PILLAR BMP, PILLAR LIPID #### [facility] [address] [place] [address] Potassium [Moles/Vol] 3.9 mmol/L 3.5-5.1 [facility] Comment on above: Performed By: #### P ILLAR TSH, PILLAR CBC, PILLAR BMP, PILLAR LIPID #### [facility] [address] Protein [Mass/Vol] 5.7 g/dL Low 6.4-8.9 [facility] Comment on above: Performed By: #### P ILLAR TSH, PILLAR CBC, PILLAR BMP, PILLAR LIPID #### [facility] [address] [place] [address] Sodium [Moles/Vol] 136 mmol/L 136-145 [facility] Comment on above: Performed By: #### P ILLAR TSH, PILLAR CBC, PILLAR BMP, PILLAR LIPID #### [facility] [address] [place] [address] Urea nitrogen [Mass/Vol] 12 mg/dL 7-25 [facility] Comment on above: Performed By: #### P ILLAR TSH, PILLAR CBC, PILLAR BMP, PILLAR LIPID #### [facility] [address] [place] [address] Employee Complete Blood Coun tOrdered By: Mario Perez on 04-02-2025 Basophils (Bld) [#/Vol] 0.0 10*3/uL 0.0-0.2 [facility] Comment on above: Result Comment: PERF ORMED BY: [place] [address] PATHOLOGIST CLEARING HAND JESS VARGAS M.D. Performed By: #### P ILLAR LIPID, PILLAR CBC, PILLAR CMP ####[address] Basophils/100 WBC (Bld) 0.5 % . [facility] Comment on above: Performed By: #### P ILLAR LIPID, PILLAR CBC, PILLAR CMP ####[address] Eosinophils (Bld) [#/Vol] 0.2 10*3/uL 0.0-0.45 [facility] Comment on above: Performed By: #### P ILLAR LIPID, PILLAR CBC, PILLAR CMP ####[address] [place] [address] [facility] Eosinophils/100 WBC (Bld) 2.5 % . [facility] Comment on above: Performed By: #### P ILLAR LIPID, PILLAR CBC, PILLAR CMP ####[address] Erythrocyte distribution width (RBC) [Ratio] 13.4 % 11.9-15.3 [facility] Comment on above: Performed By: #### P ILLAR LIPID, PILLAR CBC, PILLAR CMP ####[address] Hematocrit (Bld) [Volume fraction] 34.4 % 34.0-46.4 [facility] Comment on above: Performed By: #### P ILLAR LIPID, PILLAR CBC, PILLAR CMP ####[address] Hemoglobin (Bld) [Mass/Vol] 11.8 g/dL 11.8-15.4 [facility] Comment on above: Performed By: #### P ILLAR LIPID, PILLAR CBC, PILLAR CMP ####[address] Lymphocytes (Bld) [#/Vol] 1.6 10*3/uL 1.00-4.8 [facility] Comment on above: Performed By: #### P ILLAR LIPID, PILLAR CBC, PILLAR CMP ####[place] [id number] [facility] Lymphocytes/100 WBC (Bld) 21.6 % . [facility] Comment on above: Performed By: #### P ILLAR LIPID, PILLAR CBC, PILLAR CMP ####[place] [id number] [facility] MCH (RBC) [Entitic mass] 29.3 pg 24.7-34.3 [facility] Comment on above: Performed By: #### P ILLAR LIPID, PILLAR CBC, PILLAR CMP ####[place] [id number] [facility] MCV (RBC) [Entitic vol] 85.4 fL 80-100 [facility] Comment on above: Performed By: #### P ILLAR LIPID, PILLAR CBC, PILLAR CMP ####[place] [id number] [facility] Monocytes (Bld) [#/Vol] 0.6 10*3/uL 0.0-0.8 [facility] Comment on above: Performed By: #### P ILLAR LIPID, PILLAR CBC, PILLAR CMP ####[place] [id number] [facility] Monocytes/100 WBC (Bld) 7.9 % . [facility] Comment on above: Performed By: #### P ILLAR LIPID, PILLAR CBC, PILLAR CMP ####[place] [id number] [facility] Neutrophils (Bld) [#/Vol] 5.0 10*3/uL 1.8-7.7 [facility] Comment on above: Performed By: #### P ILLAR LIPID, PILLAR CBC, PILLAR CMP ####[place] [id number] [facility] Neutrophils/100 WBC (Bld) 67.5 % . [facility] Comment on above: Performed By: #### P ILLAR LIPID, PILLAR CBC, PILLAR CMP ####[place] [id number] [facility] Platelet mean volume (Bld) [Entitic vol] 9.5 fL 6.3-10.7 [facility] Comment on above: Performed By: #### P ILLAR LIPID, PILLAR CBC, PILLAR CMP ####[address] [address] [facility] Platelets (Bld) [#/Vol] 198 10*3/uL 150-450 [facility] Comment on above: Performed By: #### P ILLAR LIPID, PILLAR CBC, PILLAR CMP ####[place] [id number] [facility] RBC (Bld) [#/Vol] 4.03 10*6/uL 3.60-5.00 [facility] Comment on above: Performed By: #### P ILLAR LIPID, PILLAR CBC, PILLAR CMP ####[facility] WBC (Bld) [#/Vol] 7.4 10*3/uL 3.8-11.6 [facility] Comment on above: Performed By: #### P ILLAR LIPID, PILLAR CBC, PILLAR CMP ####[facility] [id number] Employee Complete Blood Coun ton 04-02-2025 Mean Corpuscular HGB Conc 34.3 g/dL Normal 32.0-35.0 [facility] Comment on above: Performed By: #### P ILLAR LIPID, PILLAR CBC, PILLAR CMP ####[place] [id number] NRBC% 0.1 /100{WBC} Normal 0-0.5 [facility] Comment on above: Performed By: #### P ILLAR LIPID, PILLAR CBC, PILLAR CMP ####[facility] [id number] [address] Employee Lipid ProfileOrdere d By: Mario Perez on 04-02-2025 Cholesterol [Mass/Vol] 222 mg/dL High 140-200 [facility] Comment on above: Result Comment: Chol less than 200 mg/dl low risk Chol 201-239 mg/dl borderline risk Chol 240 mg/dl and greater high risk Performed By: #### P ILLAR TSH, PILLAR CBC, PILLAR BMP, PILLAR LIPID #### [facility] [address] Chol less than 200 m g/dl low riskChol 201-239 mg/dl borderline riskChol 240 mg/dl and greater high risk Cholesterol in HDL [Mass/Vol] 76 mg/dL 23- [facility] Comment on above: Result Comment: HDL CHOL ATP-III CLASSIFICATION Cardiovascular Risk HDL > or equal to 60 mg/dL LOW HDL < 40 mg/dL HIGH Performed By: #### P ILLAR TSH, PILLAR CBC, PILLAR BMP, PILLAR LIPID #### [facility] [address] HDL CHOL ATP-III CLA SSIFICATION Cardiovascular RiskHDL > or equal to 60 mg/dL LOWHDL < 40 mg/dL HIGH Cholesterol.total/Chol esterol in HDL [Mass ratio] 2.9 {ratio} <5.0 [facility] Comment on above: Result Comment: PERF ORMED BY: [place] [address] PATHOLOGIST CLEARING [employer] JESS VARGAS M.D. Performed By: #### P ILLAR TSH, PILLAR CBC, PILLAR BMP, PILLAR LIPID #### [address] Employee Lipid Profileon LDL Cholesterol,Calculated 120 mg/dL High 0-100 [facility] Comment on above: Result Comment: LDL ATP III CLASSIFICATION LDL less than 100 mg/dL Optimal LDL 100-129 mg/dL Near or above optimal LDL 130-159 mg/dL Borderline high LDL 160-189 mg/dL High LDL greater than 189 mg/dL Very high Performed By: #### P ILLAR TSH, PILLAR CBC, PILLAR BMP, PILLAR LIPID #### [address] Triglyceride w/Reflex 131 mg/dL Normal 0-149 [facility] Comment on above: Result Comment: TRIG ATP III CLASSIFICATION TRIG less than 150 mg/dL Normal TRIG 150-199 mg/dL Borderline high TRIG 200-500 mg/dL High TRIG greater than 500 mg/dL Very high Standard traceable to the Center for Disease Conrtrol and Prevention (CDC) test method. Performed By: #### P ILLAR TSH, PILLAR CBC, PILLAR BMP, PILLAR LIPID #### [address] VLDL CHOLESTEROL 26 mg/dL Normal [facility] Comment on above: Performed By: #### P ILLAR TSH, PILLAR CBC, PILLAR BMP, PILLAR LIPID #### [address] Leukocytes [#/volume] correc randolph for nucleated erythrocytes in Blood by Automated counOrdered By: Mario Perez on 04-02-2025 WBC corrected for nucl RBC Auto (Bld) [#/Vol] 7.4 10*3/uL 3.8-11.6 [facility] MCHC Auto (RBC) [Mass/Vol]Or dered By: Mario Perez on 04-02-2025 MCHC (RBC) [Mass/Vol] 34.3 g/dL 32.0-35.0 [facility] No Panel InformationOrdered By: Mario Perez on 04-02-2025 Estimated GFR (CKD-EPI) > 60.0 mL/Min [facility] Creatinine Clearance (Chem N/A [facility] Nucleated erythrocytes [Pres ence] in Blood by Automated countOrdered By: Mario Perez on 04-02-2025 Nucleated RBC Auto Ql (Bld) 0.1 /100{WBC} 0-0.5 [facility] Triglyceride [Mass/volume] i n Serum or PlasmaOrdered By: Mario Perez on 04-02-2025 Triglyceride [Mass/Vol] 131 mg/dL 0-149 [facility] Comment on above: TRIG ATP III [...] II, MD, PHD at 16-Mar-2025 11:50:11 AM [facility] Normal Not Available Comment on above: Order Comment: US OB ANATOMY SINGLE W US OB CERVICAL LENGTH Estimated Date of Delivery: 07/28/25 Gestational Age as of 02/15/2025: 16w5d Urinalysis macro (dipstick) panel (U)on 03-15-2025 Bilirubin, UA Negative Negative - 4(70) +++ mg/dL [facility] Blood, UA Negative Negative - 50 Tavon/mcL [facility] Clarity, UA Clear [facility] Color, UA Yellow [facility] Glucose, UA Negative Negative - 1999(110) ++++ mg/dL [facility] Interpretation and review of laboratory results Normal [facility] Ketones, UA Negative Negative - 160(16) ++++ mg/dL [facility] Leukocytes, UA Negative Negative - 500+++ Bertha/mcL [facility] Nitrite, UA Negative Negative - Positive [facility] pH, UA 7 5 - 9 [facility] Protein, UA Negative Negative - 2000(20) ++++ mg/dL [facility] Spec Grav, UA 1.015 1 - 1.03 [facility] Urobilinogen, UA 0.2 0.2 - 12 mg/dL [facility] Basophils Auto (Bld) [#/Vol] Ordered By: Yasmani Abdullahi on 03-14-2025 Basophils (Bld) [#/Vol] Automated basophil count 0.0-0.2 [facility] Basophils/100 WBC Auto (Bld) Ordered By: Yasmani Abdullahi on 03-14-2025 Basophils/100 WBC (Bld) Automated basophil % . [facility] CBC W Auto Differential pane l (Bld)on 03-14-2025 Basophils (Bld) [#/Vol] 0 10*3/uL 0.0 - 0.2 10*3/uL [facility] Basophils/100 WBC Manual cnt (Syn fld) 0.3 % . [facility] Eosinophils (Bld) [#/Vol] 0.1 10*3/uL 0.0 - 0.45 10*3/uL [facility] Eosinophils/100 WBC Manual cnt (Syn fld) 1 % . [facility] Erythrocyte distribution width (RBC) [Ratio] 13.5 % 11.9 - 15.3 % [facility] Hematocrit (Bld) [Volume fraction] 35.8 % 34.0 - 46.4 % [facility] Hemoglobin (Bld) [Mass/Vol] 12.6 g/dL 11.8 - 15.4 g/dL [facility] Interpretation and review of laboratory results Abnormal [facility] Lymphocytes (Bld) [#/Vol] 1.8 10*3/uL 1.00 - 4.8 10*3/uL [facility] Lymphocytes/100 WBC Manual cnt (Syn fld) 19.9 % . [facility] MCH (RBC) [Entitic mass] 29.2 pg 24.7 - 34.3 pg [facility] MCHC (RBC) [Mass/Vol] 35.1 g/dL High 32.0 - 35.0 g/dL [facility] MCV (RBC) [Entitic vol] 83.3 fL 80 - 100 fL [facility] Monocytes (Bld) [#/Vol] 0.7 10*3/uL 0.0 - 0.8 10*3/uL [facility] Monocytes+Macrophages/ 100 WBC Manual cnt (Syn fld) 8.2 % . [facility] Neutrophils (Bld) [#/Vol] 6.4 10*3/uL 1.8 - 7.7 10*3/uL [facility] Neutrophils/100 WBC Manual cnt (Syn fld) 70.6 % . [facility] NRBC 0.1 /100{WBC} 0 - 0.5 /100{WBC} [facility] Platelet mean volume (Bld) [Entitic vol] 9 fL 6.3 - 10.7 fL [facility] Platelets (Bld) [#/Vol] 235 10*3/uL 150 - 450 10*3/uL [facility] RBC LM.HPF (Urine sed) [#/Area] 4.3 10*6/uL 3.60 - 5.00 10*6/uL [facility] WBC (Bld) [#/Vol] 9.1 10*3/uL 3.8 - 11.6 10*3/uL [facility] WBC LM.HPF (Urine sed) [#/Area] 9.1 10*3/uL 3.8 - 11.6 10*3/uL [facility] Complete Blood Count Auto Di ffOrdered By: Yasmani Abdullahi on 03-14-2025 Basophils (Bld) [#/Vol] 0.0 10*3/uL 0.0-0.2 [facility] Comment on above: Result Comment: PERF ORMED BY: [facility] [address] [place] [address] PATHOLOGIST CLEARING [employer] JESS VARGAS M.D. Performed By: #### C BC ####[place] [id number] [address] Basophils/100 WBC (Bld) 0.3 % . [facility] Comment on above: Performed By: #### C BC ####[place] [id number] Eosinophils (Bld) [#/Vol] 0.1 10*3/uL 0.0-0.45 [facility] Comment on above: Performed By: #### C BC ####[facility] [address] Eosinophils/100 WBC (Bld) 1.0 % . [facility] Comment on above: Performed By: #### C BC ####[address] Erythrocyte distribution width (RBC) [Ratio] 13.5 % 11.9-15.3 [facility] Comment on above: Performed By: #### C BC ####[address] Hematocrit (Bld) [Volume fraction] 35.8 % 34.0-46.4 [facility] Comment on above: Performed By: #### C BC ####[address] Hemoglobin (Bld) [Mass/Vol] 12.6 g/dL 11.8-15.4 [facility] Comment on above: Performed By: #### C BC ####[address] Lymphocytes (Bld) [#/Vol] 1.8 10*3/uL 1.00-4.8 [facility] Comment on above: Performed By: #### C BC ####[address] Lymphocytes/100 WBC (Bld) 19.9 % . [facility] Comment on above: Performed By: #### C BC ####[address] MCH (RBC) [Entitic mass] 29.2 pg 24.7-34.3 [facility] Comment on above: Performed By: #### C BC ####[address] MCV (RBC) [Entitic vol] 83.3 fL 80-100 [facility] Comment on above: Performed By: #### C BC ####[address] Monocytes (Bld) [#/Vol] 0.7 10*3/uL 0.0-0.8 [facility] Comment on above: Performed By: #### C BC ####[address] [address] [facility] Monocytes/100 WBC (Bld) 8.2 % . [facility] Comment on above: Performed By: #### C BC ####[address] [address] [facility] Neutrophils (Bld) [#/Vol] 6.4 10*3/uL 1.8-7.7 [facility] Comment on above: Performed By: #### C BC ####[address] [address] [facility] Neutrophils/100 WBC (Bld) 70.6 % . [facility] Comment on above: Performed By: #### C BC ####[address] [address] [facility] Platelet mean volume (Bld) [Entitic vol] 9.0 fL 6.3-10.7 [facility] Comment on above: Performed By: #### C BC ####[address] [address] [facility] Platelets (Bld) [#/Vol] 235 10*3/uL 150-450 [facility] Comment on above: Performed By: #### C BC ####[address] [address] [facility] RBC (Bld) [#/Vol] 4.30 10*6/uL 3.60-5.00 [facility] Comment on above: Performed By: #### C BC ####[address] [address] [facility] WBC (Bld) [#/Vol] 9.1 10*3/uL 3.8-11.6 [facility] Comment on above: Performed By: #### C BC ####[address] [address] [facility] Complete Blood Count Auto Di ffon 03-14-2025 Mean Corpuscular HGB Conc 35.1 g/dL High 32.0-35.0 [facility] Comment on above: Performed By: #### C BC ####[facility] [id number] [place] [id number] [facility] NRBC% 0.1 /100{WBC} Normal 0-0.5 [facility] Comment on above: Performed By: #### C BC ####[facility] [address] Eosinophils Auto (Bld) [#/Vo l]Ordered By: Yasmani Abdullahi on 03-14-2025 Eosinophils (Bld) [#/Vol] Automated eosinophil count 0.0-0.45 [facility] Eosinophils/100 WBC Auto (Bl d)Ordered By: Yasmani Abdullahi on 03-14-2025 Eosinophils/100 WBC (Bld) Automated eosinophil % . [facility] Erythrocyte distribution wid th Auto (RBC) [Ratio]Ordered By: Yasmani Abdullahi on 03-14-2025 Erythrocyte distribution width (RBC) [Ratio] Erythrocyte distribution width [Ratio] by Automated count 11.9-15.3 [facility] Hematocrit Auto (Bld) [Volum e fraction]Ordered By: Yasmani Abdullahi on 03-14-2025 Hematocrit (Bld) [Volume fraction] Hematocrit [Volume Fraction] of Blood by Automated count 34.0-46.4 [facility] Hemoglobin [Mass/volume] in BloodOrdered By: Yasmani Abdullahi on 03-14-2025 Hemoglobin (Bld) [Mass/Vol] Hemoglobin [Mass/volume] in Blood 11.8-15.4 [facility] Leukocytes [#/volume] correc randolph for nucleated erythrocytes in Blood by Automated counOrdered By: Yasmani Abdullahi on 03-14-2025 WBC corrected for nucl RBC Auto (Bld) [#/Vol] Leukocytes [#/volume] corrected for nucleated erythrocytes in Blood by Automated coun 3.8-11.6 [facility] WBC corrected for nucl RBC Auto (Bld) [#/Vol] 9.1 10*3/uL 3.8-11.6 [facility] Lymphocytes Auto (Bld) [#/Vo l]Ordered By: Yasmani Abdullahi on 03-14-2025 Lymphocytes (Bld) [#/Vol] Lymphocytes [#/volume] in Blood by Automated count 1.00-4.8 [facility] Lymphocytes/100 WBC Auto (Bl d)Ordered By: Yasmani Abdullahi on 03-14-2025 Lymphocytes/100 WBC (Bld) Lymphocytes/100 leukocytes in Blood by Automated count . [facility] MCH Auto (RBC) [Entitic mass ]Ordered By: Yasmani Abdullahi on 03-14-2025 MCH (RBC) [Entitic mass] MCH [Entitic mass] by Automated count 24.7-34.3 [facility] MCHC Auto (RBC) [Mass/Vol]Or dered By: Yasmani Abdullahi on 03-14-2025 MCHC (RBC) [Mass/Vol] MCHC [Mass/volume] by Automated count High 32.0-35.0 [facility] MCHC (RBC) [Mass/Vol] 35.1 g/dL High 32.0-35.0 [facility] MCV Auto (RBC) [Entitic vol] Ordered By: Yasmani Abdullahi on 03-14-2025 MCV (RBC) [Entitic vol] MCV [Entitic volume] by Automated count 80-100 [facility] Monocytes Auto (Bld) [#/Vol] Ordered By: Yasmani Abdullahi on 03-14-2025 Monocytes (Bld) [#/Vol] Automated blood monocyte count 0.0-0.8 [facility] Monocytes/100 WBC Auto (Bld) Ordered By: Yasmani Abdullahi on 03-14-2025 Monocytes/100 WBC (Bld) Automated monocyte % . [facility] Neutrophils Auto (Bld) [#/Vo l]Ordered By: Yasmani Abdullahi on 03-14-2025 Neutrophils (Bld) [#/Vol] Neutrophils [#/volume] in Blood by Automated count 1.8-7.7 [facility] Neutrophils/100 WBC Auto (Bl d)Ordered By: Yasmani Abdullahi on 03-14-2025 Neutrophils/100 WBC (Bld) Automated neutrophil % . [facility] Nucleated erythrocytes [Pres ence] in Blood by Automated countOrdered By: Yasmani Abdullahi on 03-14-2025 Nucleated RBC Auto Ql (Bld) Nucleated erythrocytes [Presence] in Blood by Automated count 0-0.5 [facility] Nucleated RBC Auto Ql (Bld) 0.1 /100{WBC} 0-0.5 [facility] Platelet mean volume Auto (B ld) [Entitic vol]Ordered By: Yasmani Abdullahi on 03-14-2025 Platelet mean volume (Bld) [Entitic vol] Platelet mean volume [Entitic volume] in Blood by Automated count 6.3-10.7 [facility] Platelets Auto (Bld) [#/Vol] Ordered By: Yasmani Abdullahi on 03-14-2025 Platelets (Bld) [#/Vol] Platelets [#/volume] in Blood by Automated count 150-450 [facility] RBC Auto (Bld) [#/Vol]Ordere d By: Yasmani Abdullahi on 03-14-2025 RBC (Bld) [#/Vol] Erythrocytes [#/volu me] in Blood by Automated count 3.60-5.00 [facility] WBC Auto (Bld) [#/Vol]Ordere d By: Yasmani Abdullahi on 03-14-2025 WBC (Bld) [#/Vol] Leukocytes [#/volume ] in Blood by Automated count 3.8-11.6 [facility] IGP,APTIMA HPV,AGE GDLNon AGE GDLN ACOG TESTING Note . [facility] Comment on above: TESTS RESULT FLAG UN ITS REF RANGE LAB Clinician Provided Cytology Information Source.............[employer] Other.............. No. of containers..01 ThinPrep Vial Age Algo ACOG Gemma... 30-65 01 FLAG LEGEND: L-Low Normal,H-High Normal,LL-Alert Low,HH-Alert High <-Panic Low,>-Panic High,A-Abnormal,AA-Critical Abnormal Performed at: 01 =[address] [address] Azalea Quezada MD, HPV APTIMA Negative Negative [facility] Comment on above: This nucleic acid am plification test detects fourteen high- risk HPV types (16,18,31,33,35,39,45,51,52,56,58,59,66,68) without differentiation. Performed at: =[address] [id number] Lightout Examiner: Azalea Quezada MD, Phone: [phone] Performed at: [address] [id number] Lightout Examiner: Azalea Quezada MD, Phone: [phone] IGP, APTIMA HPV, RFX 16/18,45 Note . [facility] Comment on above: TESTS RESULT FLAG UN ITS REF RANGE LAB DIAGNOSIS: 02 NEGATIVE FOR INTRAEPITHELIAL LESION OR MALIGNANCY. Specimen adequacy: 02 Satisfactory for evaluation. No endocervical component is identified. An endocervical component is not commonly seen in the patient. Performed by: Darrell Martin, Exchange Engineer ([facility]) . 02 Note: Note 02 The [...] <-Panic Low,>-Panic High,A-Abnormal,AA-Critical Abnormal Performed at: [address] [address] Azalea Quezada MD, SPATULA-ALONE ENDOCERVIX CLINISY[facility] RECURRENT VAGINITIS (HTRX)on 02-16-2025 ATOPOBIUM VAGINAE 0 [facility] ATOPOBIUM VAGINAE Not detected [facility] BVAB 2,3 (BACTERIAL VAGINOSIS ASSOCIATED BACTERIA 2, 3); MOBILUNCUS SPP 0 [facility] BVAB 2,3 (BACTERIAL VAGINOSIS ASSOCIATED BACTERIA [...] 16+18+31+33+35+39+45+51+5 2+56+58+59+66+68 DNA [Presence] in Cer Negative [facility] Comment on above: This nucleic acid am plification test detects fourteen high- risk HPV types (16,18,31,33,35,39,45,51,52,56,58,59,66,68)without differentiation.Performed at: =G - [facility] [address] [id number] Director: Azalea Quezada MD, Phone: [phone] at: - [facility] [id number] Director: Aazlea Quezada MD, Phone: [phone] No Panel Informationon 02-15 HPV High Risk Other Comment Note . [facility] Comment on above: TESTS RESULT FLAG UN ITS REF RANGE LAB DIAGNOSIS: 02 NEGATIVE FOR INTRAEPITHELIAL LESION OR MALIGNANCY.Specimen adequacy: 02 Satisfactory for evaluation. No endocervical component is identified. An endocervical component is not commonly seen in the patient.Performed by: Darrell Martin Exchange Engineer ([facility]). 02Note: Note 02 The Pap [...] High <-Panic Low,>-Panic High,A-Abnormal,AA-Critical Abnormal -----Performed at:[address] [address] Azalea Quezada MD, Reference Lab Test Patient Age Note . [facility] Comment on above: TESTS RESULT FLAG UN ITS REF RANGE LAB Clinician Provided Cytology Information Source.............[employer] Other.............. No. of containers..01 ThinPrep VialAge Belindao SANDEEOG Gemma... 30-65 FLAG LEGEND: L-Low Normal,H-High Normal,LL-Alert Low,HH-Alert High <-Panic Low,>-Panic High,A-Abnormal,AA-Critical Abnormal -----Performed at:01 =G [facility] [address] Azalea Quezada MD, Urinalysis macro (dipstick) panel [...] Spec Grav, UA 1.03 1 - 1.03 [facility] Urobilinogen, UA 0.2 0.2 - 12 mg/dL [facility] A1C with Estimated Average Gino johnson 12-27-2024 Glucose [Mass/Vol] 103 mg/dL Normal [facility] Comment on above: Order Comment: NONFA STING.JKW Result Comment: PERF ORMED BY: [facility] [address] [place] [address] PATHOLOGIST CLEARING HAND LEÓN GARCIA M.D. Performed By: #### H CV RX PCR, RPR W RFX, RUBELLA IGG, HBSAG, HIV SCREEN ####[facility] ,#### CUU, A1C WTH eA, CBC, URDS ####[facility] [id number] HbA1c (Bld) [Mass fraction] 5.2 % Normal 4.3-5.6 [facility] Comment on above: Order Comment: NONFA STING.JKW Result Comment: Incr eased risk for diabetes: 5.7 - 6.4 diabetes: >6.4 glycemic control for adults with diabetes: <7.0 Performed By: #### H CV RX PCR, RPR W RFX, RUBELLA IGG, HBSAG, HIV SCREEN ####[facility] ,#### CUU, A1C WTH eA, CBC, URDS ####[address] Amphetamine Screen Ql (U)Ord ered By: Yasmani Abdullahi on 12-27-2024 Amphetamines Ql (U) Amphetamines screen Negativ e [facility] Barbiturates [Presence] in U rine by Screen methodOrdered By: Yasmani Abdullahi on 12-27-2024 Barbiturates Screen Ql (U) Barbiturates [Presence] in Urine by Screen method Negative [facility] Basophils Auto (Bld) [#/Vol] Ordered By: Yasmani Abdullahi on 12-27-2024 Basophils (Bld) [#/Vol] Automated basophil count 0.0-0.2 [facility] Basophils/100 WBC Auto (Bld) Ordered By: Yasmani Abdullahi on 12-27-2024 Basophils/100 WBC (Bld) Automated basophil % . [facility] Benzodiazepines Screen Ql (U )Ordered By: Yasmani Abdullahi on 12-27-2024 Benzodiazepines Ql (U) Benzodiazepines [Presence] in Urine by Screen method Negative [facility] Benzoylecgonine [Presence] i n Urine by Screen methodOrdered By: Yasmani Abdullahi on 12-27-2024 Benzoylecgonine Screen Ql (U) Benzoylecgonine [Presence] in Urine by Screen method Negative [facility] Blood estimated average gluc ose determination by estimation from glycated hemoglobinOrdered By: Yasmani Abdullahi on 12-27-2024 Average glucose Estimated from glycated hemoglobin (Bld) [Mass/Vol] Glucose mean value [Mass/volume] in Blood Estimated from glycated hemoglobin [facility] Cannabinoids [Presence] in U rine by Screen methodOrdered By: Yasmani Abdullahi on 12-27-2024 Cannabinoids Screen Ql (U) Cannabinoids [Presence] in Urine by Screen method Negative [facility] Comment on above: These are unconfirme d results and should not be used for legal purposes. Drug Cut-Off Concentration: AMPH 1000 ng/mL ABELARDO 200 ng/mL JESSE 200 ng/mL COCM 300 ng/mL OP 300 ng/mL PCP 25 ng/mL THC 20 ng/mL Complete Blood Count Auto Di ffon 12-27-2024 Basophils (Bld) [#/Vol] 0.0 10*3/uL Normal 0.0-0.2 [facility] Comment on above: Order Comment: NONFA STING.JKW Result Comment: PERF ORMED BY: [place] [address] PATHOLOGIST CLEARING HAND LEÓN GARCIA M.D. Performed By: #### H CV RX PCR, RPR W RFX, RUBELLA IGG, HBSAG, HIV SCREEN #### [facility] , #### CUU, A1C WTH eA, CBC, URDS #### [facility] [address] [place] [address] [place] Basophils/100 WBC (Bld) 0.6 % Normal . [facility] Comment on above: Order Comment: NONFA STING.JKW Performed By: #### H CV RX PCR, RPR W RFX, RUBELLA IGG, HBSAG, HIV SCREEN #### [facility] , #### CUU, A1C WTH eA, CBC, URDS #### [address] Eosinophils (Bld) [#/Vol] 0.1 10*3/uL Normal 0.0-0.45 [facility] Comment on above: Order Comment: NONFA STING.JKW Performed By: #### H CV RX PCR, RPR W RFX, RUBELLA IGG, HBSAG, HIV SCREEN #### [facility] , #### CUU, A1C WTH eA, CBC, URDS #### [address] Eosinophils/100 WBC (Bld) 1.7 % Normal . [facility] Comment on above: Order Comment: NONFA STING.JKW Performed By: #### H CV RX PCR, RPR W RFX, RUBELLA IGG, HBSAG, HIV SCREEN #### [facility] , #### CUU, A1C WTH eA, CBC, URDS #### [address] Erythrocyte distribution width (RBC) [Ratio] 13.7 % Normal 11.9-15.3 [facility] Comment on above: Order Comment: NONFA STING.JKW Performed By: #### H CV RX PCR, RPR W RFX, RUBELLA IGG, HBSAG, HIV SCREEN #### [facility] , #### CUU, A1C WTH eA, CBC, URDS #### [address] Hematocrit (Bld) [Volume fraction] 38.2 % Normal 34.0-46.4 [facility] Comment on above: Order Comment: NONFA STING.JKW Performed By: #### H CV RX PCR, RPR W RFX, RUBELLA IGG, HBSAG, HIV SCREEN #### [facility] , #### CUU, A1C WTH eA, CBC, URDS #### [address] Hemoglobin (Bld) [Mass/Vol] 13.0 g/dL Normal 11.8-15.4 [facility] Comment on above: Order Comment: NONFA STING.JKW Performed By: #### H CV RX PCR, RPR W RFX, RUBELLA IGG, HBSAG, HIV SCREEN #### [facility] , #### CUU, A1C WTH eA, CBC, URDS #### [address] Lymphocytes (Bld) [#/Vol] 1.2 10*3/uL Normal 1.00-4.8 [facility] Comment on above: Order Comment: NONFA STING.JKW Performed By: #### H CV RX PCR, RPR W RFX, RUBELLA IGG, HBSAG, HIV SCREEN #### [facility] , #### CUU, A1C WTH eA, CBC, URDS #### [address] Lymphocytes/100 WBC (Bld) 19.5 % Normal . [facility] Comment on above: Order Comment: NONFA STING.JKW Performed By: #### H CV RX PCR, RPR W RFX, RUBELLA IGG, HBSAG, HIV SCREEN #### [facility] , #### CUU, A1C WTH eA, CBC, URDS #### [address] MCH (RBC) [Entitic mass] 27.8 pg Normal 24.7-34.3 [facility] Comment on above: Order Comment: NONFA STING.JKW Performed By: #### H CV RX PCR, RPR W RFX, RUBELLA IGG, HBSAG, HIV SCREEN #### [facility] , #### CUU, A1C WTH eA, CBC, URDS #### [address] MCV (RBC) [Entitic vol] 81.5 fL Normal 80-100 [facility] Comment on above: Order Comment: NONFA STING.JKW Performed By: #### H CV RX PCR, RPR W RFX, RUBELLA IGG, HBSAG, HIV SCREEN #### [facility] , #### CUU, A1C WTH eA, CBC, URDS #### [address] Mean Corpuscular HGB Conc 34.1 g/dL Normal 32.0-35.0 [facility] Comment on above: Order Comment: NONFA STING.JKW Performed By: #### H CV RX PCR, RPR W RFX, RUBELLA IGG, HBSAG, HIV SCREEN #### [facility] , #### CUU, A1C WTH eA, CBC, URDS #### [address] Monocytes (Bld) [#/Vol] 0.4 10*3/uL Normal 0.0-0.8 [facility] Comment on above: Order Comment: NONFA STING.JKW Performed By: #### H CV RX PCR, RPR W RFX, RUBELLA IGG, HBSAG, HIV SCREEN #### [facility] , #### CUU, A1C WTH eA, CBC, URDS #### [address] Monocytes/100 WBC (Bld) 6.7 % Normal . [facility] Comment on above: Order Comment: NONFA STING.JKW Performed By: #### H CV RX PCR, RPR W RFX, RUBELLA IGG, HBSAG, HIV SCREEN #### [facility] , #### CUU, A1C WTH eA, CBC, URDS #### [facility] [address] Neutrophils (Bld) [#/Vol] 4.5 10*3/uL Normal 1.8-7.7 [facility] Comment on above: Order Comment: NONFA STING.JKW Performed By: #### H CV RX PCR, RPR W RFX, RUBELLA IGG, HBSAG, HIV SCREEN #### [facility] , #### CUU, A1C WTH eA, CBC, URDS #### [address] Neutrophils/100 WBC (Bld) 71.5 % Normal . [facility] Comment on above: Order Comment: NONFA STING.JKW Performed By: #### H CV RX PCR, RPR W RFX, RUBELLA IGG, HBSAG, HIV SCREEN #### [facility] , #### CUU, A1C WTH eA, CBC, URDS #### [address] NRBC% 0.0 /100{WBC} Normal 0-0.5 [facility] Comment on above: Order Comment: NONFA STING.JKW Performed By: #### H CV RX PCR, RPR W RFX, RUBELLA IGG, HBSAG, HIV SCREEN #### [facility] , #### CUU, A1C WTH eA, CBC, URDS #### [address] Platelet mean volume (Bld) [Entitic vol] 8.8 fL Normal 6.3-10.7 [facility] Comment on above: Order Comment: NONFA STING.JKW Performed By: #### H CV RX PCR, RPR W RFX, RUBELLA IGG, HBSAG, HIV SCREEN #### [facility] , #### CUU, A1C WTH eA, CBC, URDS #### [place] [address] [place] Platelets (Bld) [#/Vol] 225 10*3/uL Normal 150-450 [facility] Comment on above: Order Comment: NONFA STING.JKW Performed By: #### H CV RX PCR, RPR W RFX, RUBELLA IGG, HBSAG, HIV SCREEN #### [facility] , #### CUU, A1C WTH eA, CBC, URDS #### [facility] [address] RBC (Bld) [#/Vol] 4.69 10*6/uL Normal 3.60-5.00 [facility] Comment on above: Order Comment: NONFA STING.JKW Performed By: #### H CV RX PCR, RPR W RFX, RUBELLA IGG, HBSAG, HIV SCREEN #### [facility] , #### CUU, A1C WTH eA, CBC, URDS #### [facility] [address] WBC (Bld) [#/Vol] 6.4 10*3/uL Normal 3.8-11.6 [facility] Comment on above: Order Comment: NONFA STING.JKW Performed By: #### H CV RX PCR, RPR W RFX, RUBELLA IGG, HBSAG, HIV SCREEN #### [facility] , #### CUU, A1C WTH eA, CBC, URDS #### [facility] [address] Drug Screen,Urineon 12-28-19 25 Amphetamine Screen,Urine Negative Normal Negative [facility] Comment on above: Order Comment: NONFA STING.JKW Performed By: #### H CV RX PCR, RPR W RFX, RUBELLA IGG, HBSAG, HIV SCREEN ####[facility] ,#### CUU, A1C WTH eA, CBC, URDS ####[facility] Barbiturate Screen,Urine Negative Normal Negative [facility] Comment on above: Order Comment: NONFA STING.JKW Performed By: #### H CV RX PCR, RPR W RFX, RUBELLA IGG, HBSAG, HIV SCREEN ####[facility] ,#### CUU, A1C WTH eA, CBC, URDS ####[place] [address] [place] [id number] [facility] Benzodiazepines Screen,Urine Negative Normal Negative [facility] Comment on above: Order Comment: NONFA STING.JKW Performed By: #### H CV RX PCR, RPR W RFX, RUBELLA IGG, HBSAG, HIV SCREEN ####[facility] ,#### CUU, A1C WTH eA, CBC, URDS ####[place] [address] [address] Cannabinoid Screen,Urine Negative Normal Negative [facility] Comment on above: Order Comment: NONFA STING.JKW Result Comment: Thes e are unconfirmed results and should not be used for legal purposes. Drug Cut-Off Concentration: AMPH 1000 ng/mL ABELARDO 200 ng/mL JESSE 200 ng/mL COCM 300 ng/mL OP 300 ng/mL PCP 25 ng/mL THC 20 ng/mL PERFORMED BY: [facility] [address] [place] [address] PATHOLOGIST CLEARING HAND LEÓN GARCIA M.D. Performed By: #### H CV RX PCR, RPR W RFX, RUBELLA IGG, HBSAG, HIV SCREEN ####[facility] ,#### CUU, A1C WTH eA, CBC, URDS ####[address] Cocaine Screen,Urine Negative Normal Negative [facility] Comment on above: Order Comment: NONFA STING.JKW Performed By: #### H CV RX PCR, RPR W RFX, RUBELLA IGG, HBSAG, HIV SCREEN ####[facility] ,#### CUU, A1C WTH eA, CBC, URDS ####[place] [address] [place] [id number] [facility] Opiate Screen,Urine Negative Normal Negative [facility] Comment on above: Order Comment: NONFA STING.JKW Performed By: #### H CV RX PCR, RPR W RFX, RUBELLA IGG, HBSAG, HIV SCREEN ####[facility] ,#### CUU, A1C WTH eA, CBC, URDS ####[facility] [id number] Phencyclidine Screen,Urine Negative Normal Negative [facility] Comment on above: Order Comment: NONFA STING.JKW Performed By: #### H CV RX PCR, RPR W RFX, RUBELLA IGG, HBSAG, HIV SCREEN ####[facility] ,#### CUU, A1C WTH eA, CBC, URDS ####[facility] [id number] [address] Eosinophils Auto (Bld) [#/Vo l]Ordered By: Yasmani Abdullahi on 12-27-2024 Eosinophils (Bld) [#/Vol] Automated eosinophil count 0.0-0.45 [facility] Eosinophils/100 WBC Auto (Bl d)Ordered By: Yasmani Abdullahi on 12-27-2024 Eosinophils/100 WBC (Bld) Automated eosinophil % . [facility] Erythrocyte distribution wid th Auto (RBC) [Ratio]Ordered By: Yasmani Abdullahi on 12-27-2024 Erythrocyte distribution width (RBC) [Ratio] Erythrocyte distribution width [Ratio] by Automated count 11.9-15.3 [facility] HIV 1/O/2 Antigen/Antibodyon 12-27-2024 HIV Screen 4th Generation Non-Reactive Normal Non Reactive [facility] Comment on above: Order Comment: NONFA STING.JKW Result Comment: HIV- 1/HIV-2 antibodies and HIV-1 p24 antigen were NOT detected. There is no laboratory evidence of HIV infection. HIV Negative Performed at: [address] [id number] Lightout Examiner: Garfield Fay PhD, Phone: [phone] Performed By: #### H CV RX PCR, RPR W RFX, RUBELLA IGG, HBSAG, HIV SCREEN ####[facility] ,#### CUU, A1C WTH eA, CBC, URDS ####[facility] [id number] HIV antibody and antigen nails elOrdered By: Yasmani Abdullahi on 12-27-2024 HIV 1+2 Ab+HIV1 p24 Ag IA Ql HIV 1 and HIV-2 antibody assay with HIV-1 p24 antigen detection Non Reactive [facility] Comment on above: HIV-1/HIV-2 antibodi es and HIV-1 p24 antigen were NOTdetected. There is no laboratory evidence of HIV infection.HIV NegativePerformed at: - [facility] [place] [id number] Director: Garfield Fay PhD, Phone: [phone] Hematocrit Auto (Bld) [Volum e fraction]Ordered By: Yasmani Abdullahi on 12-27-2024 Hematocrit (Bld) [Volume fraction] Hematocrit [Volume Fraction] of Blood by Automated count 34.0-46.4 [facility] Hemoglobin A1c/Hemoglobin.to dylan in BloodOrdered By: Yasmani Abdullahi on 12-27-2024 HbA1c (Bld) [Mass fraction] Hemoglobin A1c percentage 4.3-5.6 [facility] Comment on above: Increased risk for d iabetes: 5.7 - 6.4diabetes: >6.4glycemic control for adults with diabetes: <7.0 Hemoglobin [Mass/volume] in BloodOrdered By: Yasmani Abdullahi on 12-27-2024 Hemoglobin (Bld) [Mass/Vol] Hemoglobin [Mass/volume] in Blood 11.8-15.4 [facility] Hep C Ab wRfx to Qnt PCRon 0 12-27-2024 Hepatitis C Virus Antibody Non-Reactive Normal Non Reactive [facility] Comment on above: Order Comment: NONFA STING.JKW Performed By: #### H CV RX PCR, RPR W RFX, RUBELLA IGG, HBSAG, HIV SCREEN ####[facility] ,#### CUU, A1C WTH eA, CBC, URDS ####[facility] Interpretation Hepatitis C Comment Normal . [facility] Comment on above: Order Comment: NONFA STING.JKW Result Comment: Not infected with HCV unless early or acute infection is suspected (which may be delayed in an immunocompromised individual), or other evidence exists to indicate HCV infection. Performed By: #### H CV RX PCR, RPR W RFX, RUBELLA IGG, HBSAG, HIV SCREEN ####[facility] ,#### CUU, A1C WTH eA, CBC, URDS ####[address] Hepatitis B Surface Antigeno n 12-27-2024 HBsAg Screen Negative Normal Negative [facility] Comment on above: Order Comment: NONFA STING.JKW Result Comment: Perf ormed at: - [facility] [address] [id number] Lightout Examiner: Garfield Fay PhD, Phone: [phone] PERFORMED BY: [facility] [address] [place] [address] PATHOLOGIST CLEARING HAND LEÓN GARCIA M.D. Performed By: #### H CV RX PCR, RPR W RFX, RUBELLA IGG, HBSAG, HIV SCREEN ####[facility] ,#### CUU, A1C WTH eA, CBC, URDS ####[address] Hepatitis C virus IgG Ab [Pr esence] in Serum or Plasma by ImmunoassayOrdered By: Yasmani Abdullahi on 12-27-2024 HCV IgG IA Ql Hepatitis C virus Ig G Ab [Presence] in Serum or Plasma by Immunoassay Non Reactive [facility] Leukocytes [#/volume] correc randolph for nucleated erythrocytes in Blood by Automated counOrdered By: Yasmani Abdullahi on 12-27-2024 WBC corrected for nucl RBC Auto (Bld) [#/Vol] Leukocytes [#/volume] corrected for nucleated erythrocytes in Blood by Automated coun 3.8-11.6 [facility] Lymphocytes Auto (Bld) [#/Vo l]Ordered By: Yasmani Abdullahi on 12-27-2024 Lymphocytes (Bld) [#/Vol] Lymphocytes [#/volume] in Blood by Automated count 1.00-4.8 [facility] Lymphocytes/100 WBC Auto (Bl d)Ordered By: Yasmani Abdullahi on 12-27-2024 Lymphocytes/100 WBC (Bld) Lymphocytes/100 leukocytes in Blood by Automated count . [facility] MCH Auto (RBC) [Entitic mass ]Ordered By: Yasmani Abdullahi on 12-27-2024 MCH (RBC) [Entitic mass] MCH [Entitic mass] by Automated count 24.7-34.3 [facility] MCHC Auto (RBC) [Mass/Vol]Or dered By: Yasmani Abdullahi on 12-27-2024 MCHC (RBC) [Mass/Vol] MCHC [Mass/volume] by Automated count 32.0-35.0 [facility] MCV Auto (RBC) [Entitic vol] Ordered By: Yasmani Abdullahi on 12-27-2024 MCV (RBC) [Entitic vol] MCV [Entitic volume] by Automated count 80-100 [facility] Monocytes Auto (Bld) [#/Vol] Ordered By: Yasmani Abdullahi on 12-27-2024 Monocytes (Bld) [#/Vol] Automated blood monocyte count 0.0-0.8 [facility] Monocytes/100 WBC Auto (Bld) Ordered By: Yasmani Abdullahi on 12-27-2024 Monocytes/100 WBC (Bld) Automated monocyte % . [facility] Neutrophils Auto (Bld) [#/Vo l]Ordered By: Yasmani Abdullahi on 12-27-2024 Neutrophils (Bld) [#/Vol] Neutrophils [#/volume] in Blood by Automated count 1.8-7.7 [facility] Neutrophils/100 WBC Auto (Bl d)Ordered By: Yasmani Abdullahi on 12-27-2024 Neutrophils/100 WBC (Bld) Automated neutrophil % . [facility] No Panel InformationOrdered By: Yasmani Abdullahi on 12-27-2024 Hepatitis C Interpretation Comment . [facility] Comment on above: Not infected with HC V unless early or acute infection issuspected (which may be delayed in an immunocompromisedindividual), or other evidence exists to indicate HCVinfection. Nucleated erythrocytes [Pres ence] in Blood by Automated countOrdered By: Yasmani Abdullahi on 12-27-2024 Nucleated RBC Auto Ql (Bld) Nucleated erythrocytes [Presence] in Blood by Automated count 0-0.5 [facility] Opiates [Presence] in Urine by Screen methodOrdered By: Yasmani Abdullahi on 12-27-2024 Opiates Screen Ql (U) Opiates [Presence] in Urine by Screen method Negative [facility] Phencyclidine Screen Ql (U)O rdered By: Yasmani Abdullahi on 12-27-2024 Phencyclidine Ql (U) Phencyclidine [Pres ence] in Urine by Screen method Negative [facility] Platelet mean volume Auto (B ld) [Entitic vol]Ordered By: Yasmani Abdullahi on 12-27-2024 Platelet mean volume (Bld) [Entitic vol] Platelet mean volume [Entitic volume] in Blood by Automated count 6.3-10.7 [facility] Platelets Auto (Bld) [#/Vol] Ordered By: Yasmani Abdullahi on 12-27-2024 Platelets (Bld) [#/Vol] Platelets [#/volume] in Blood by Automated count 150-450 [facility] RBC Auto (Bld) [#/Vol]Ordere d By: Yasmani Abdullahi on 12-27-2024 RBC (Bld) [#/Vol] Erythrocytes [#/volu me] in Blood by Automated count 3.60-5.00 [facility] RPR w/rfx to Quant TP Abson 12-27-2024 RPR, Rfx Quant RPR Non-Reactive Normal Non Reactive [facility] Comment on above: Order Comment: NONFA STING.JKW Result Comment: Perf ormed at: - [facility] [address] [id number] Lightout Examiner: Garfield Fay PhD, Phone: [phone] PERFORMED BY: [facility] [address] [place] [address] PATHOLOGIST CLEARING HAND LEÓN GARCIA M.D. Performed By: #### H CV RX PCR, RPR W RFX, RUBELLA IGG, HBSAG, HIV SCREEN ####[facility] ,#### CUU, A1C WTH eA, CBC, URDS ####[facility] [address] [place] [address] [place] Rubella IgG Antibodyon 12-27 Rubella IgG Antibody 1.22 Normal Immune >0.99 [facility] Comment on above: Order Comment: NONFA STING.JKW Result Comment: Non- immune <0.90 Equivocal 0.90 - 0.99 Immune >0.99 Performed By: #### H CV RX PCR, RPR W RFX, RUBELLA IGG, HBSAG, HIV SCREEN ####[facility] ,#### CUU, A1C WTH eA, CBC, URDS ####[facility] [place] [id number] [facility] Rubella IgG antibody assayOr dered By: Yasmani Abdullahi on 12-27-2024 Rubella IgG Antibody 1.22 index Immune >0.99 [facility] Comment on above: Non-immune <0.90 Equ ivocal 0.90 - 0.99 Immune >0.99 Serum RPR testOrdered By: Rishi Abdullahi on 12-27-2024 Reagin Ab RPR Ql (S) Reagin Ab [Presence ] in Serum by RPR Non Reactive [facility] Comment on above: Performed at: [facility] [id number] Director: Garfield Fay PhD, Phone: [phone] Serum or plasma hepatitis B virus surface antigen detection by immunoassayOrdered By: Yasmani Abdullahi on 12-27-2024 HBV surface Ag IA Ql Hepatitis B virus s urface Ag [Presence] in Serum or Plasma by Immunoassay Negative [facility] Comment on above: Performed at: [facility] [id number] [place] [address] [id number] Director: Garfield Fay PhD, Phone: [phone] Type and Screenon 12-27-2024 ABO and Rh group Nom (Bld) Blood group B Rh(D) negative Normal [facility] Comment on above: Order Comment: NONFA STING.JKW Result Comment: PERF ORMED BY: [facility] [address] [place] [address] PATHOLOGIST CLEARING HAND ELÓN GARCIA M.D. Urine Cultureon 12-27-2024 Bacteria identified Cx Nom (U) NONFASTING.JKW 15,000 colonies/ml mixed bacterial skin contaminants 2 Days PERFORMED BY: [facility] [address] [place] [address] PATHOLOGIST CLEARING HAND LEÓN GARCIA M.D. Normal [facility] Comment on above: Performed By: #### H CV RX PCR, RPR W RFX, RUBELLA IGG, HBSAG, HIV SCREEN ####[facility] ,#### CUU, A1C WTH eA, CBC, URDS ####[facility] [address] [place] [address] [facility] Urine cultureOrdered By: Paramjit Abdullahi on 12-27-2024 Bacteria identified Cx Nom (U) Urine culture [facility] WBC Auto (Bld) [#/Vol]Ordere d By: Yasmani Abdullahi on 12-27-2024 WBC (Bld) [#/Vol] Leukocytes [#/volume ] in Blood by Automated count 3.8-11.6 [facility] US OB TRANSVAGINALon 025 US OB [...] II, MD, PHD at 22-Dec-2024 08:23:50 AM [facility] Normal Not Available Comment on above: Order Comment: US OB TRANSVAGINAL No LMP recorded. Alanine aminotransferase [En zymatic activity/volume] in Serum or PlasmaOrdered By: Jose Forman on 12-06-2024 ALT [Catalytic activity/Vol] Alanine aminotransferase [Enzymatic activity/volume] in Serum or Plasma 7-52 [facility] Albumin [Mass/volume] in Ser um or Plasma by Bromocresol green (BCG) dye binding methoOrdered By: Jose Forman on 12-06-2024 Albumin BCG dye [Mass/Vol] Albumin [Mass/volume] in Serum or Plasma by Bromocresol green (BCG) dye binding metho 3.5-5.7 [facility] Alkaline phosphatase [Enzyma tic activity/volume] in Serum or PlasmaOrdered By: Jose Forman on 12-06-2024 ALP [Catalytic activity/Vol] Alkaline phosphatase [Enzymatic activity/volume] in Serum or Plasma 34-104 [facility] Appearance of UrineOrdered B y: Jose Forman on 12-06-2024 Appearance (U) Urine appearance Clear [facility] Aspartate aminotransferase [ Enzymatic activity/volume] in Serum or PlasmaOrdered By: Jose Forman on 12-06-2024 AST [Catalytic activity/Vol] Aspartate aminotransferase [Enzymatic activity/volume] in Serum or Plasma Low 13-39 [facility] Bacteria [Presence] in Urine by AutomatedOrdered By: Jose Forman on 12-06-2024 Bacteria Auto Ql (U) Bacteria [Presence] in Urine by Automated None Seen [facility] Basic Metabolic Panelon 11-18 Anion gap [Moles/Vol] 7.0 mmol/L Normal 6.0-15.0 [facility] Comment on above: Performed By: #### C BC, HCGQNT, LIPASE, PT, HS TROP, PTT, HEPATIC, BMP ####[address] Calcium [Mass/Vol] 9.1 mg/dL Normal 8.6-10.3 [facility] Comment on above: Performed By: #### C BC, HCGQNT, LIPASE, PT, HS TROP, PTT, HEPATIC, BMP ####[address] Chloride [Moles/Vol] 106 mmol/L Normal 98-107 [facility] Comment on above: Performed By: #### C BC, HCGQNT, LIPASE, PT, HS TROP, PTT, HEPATIC, BMP ####[address] CO2 [Moles/Vol] 24.6 mmol/L Normal 21.0-31.0 [facility] Comment on above: Performed By: #### C BC, HCGQNT, LIPASE, PT, HS TROP, PTT, HEPATIC, BMP ####[address] Creatinine [Mass/Vol] 0.70 mg/dL Normal 0.60-1.20 [facility] Comment on above: Performed By: #### C BC, HCGQNT, LIPASE, PT, HS TROP, PTT, HEPATIC, BMP ####[address] Creatinine Clr Calc Pharmacy 129.71 Normal [facility] Comment on above: Performed By: #### C BC, HCGQNT, LIPASE, PT, HS TROP, PTT, HEPATIC, BMP ####[address] GFR/1.73 sq M.predicted MDRD (S/P/Bld) [Vol rate/Area] mL/min/{1.73_m2} Normal [facility] Comment on above: Performed By: #### C BC, HCGQNT, LIPASE, PT, HS TROP, PTT, HEPATIC, BMP ####[address] Glucose [Mass/Vol] 94 mg/dL Normal 70-100 [facility] Comment on above: Result Comment: Eleva Glucose Reference Range is dependent on time and content of last meal. Glucose of more than 200 mg/dL in a nonstressed, ambulatory subject supports the diagnosis of Diabetes Mellitus. ADA recommended reference range Performed By: #### C BC, HCGQNT, LIPASE, PT, HS TROP, PTT, HEPATIC, BMP ####[place] [id number] [address] Potassium [Moles/Vol] 3.6 mmol/L Normal 3.5-5.1 [facility] Comment on above: Performed By: #### C BC, HCGQNT, LIPASE, PT, HS TROP, PTT, HEPATIC, BMP ####[place] [address] [address] Sodium [Moles/Vol] 134 mmol/L Low 136-145 [facility] Comment on above: Performed By: #### C BC, HCGQNT, LIPASE, PT, HS TROP, PTT, HEPATIC, BMP ####[address] Urea nitrogen [Mass/Vol] 9 mg/dL Normal 7-25 [facility] Comment on above: Performed By: #### C BC, HCGQNT, LIPASE, PT, HS TROP, PTT, HEPATIC, BMP ####[address] Basophils Auto (Bld) [#/Vol] Ordered By: Jose Forman on 12-06-2024 Basophils (Bld) [#/Vol] Automated basophil count 0.0-0.2 [facility] Basophils/100 WBC Auto (Bld) Ordered By: Jose Forman on 12-06-2024 Basophils/100 WBC (Bld) Automated basophil % . [facility] Bilirubin Test strip Ql (U)O rdered By: Jose Forman on 12-06-2024 Bilirubin Ql (U) Bilirubin.total [Presence] in Urine by Test strip Negative [facility] Bilirubin.direct [Mass/volum e] in Serum or PlasmaOrdered By: Jose Forman on 12-06-2024 Bilirubin.direct [Mass/Vol] Bilirubin.direct [Mass/volume] in Serum or Plasma 0.03-0.18 [facility] Bilirubin.total [Mass/volume ] in Serum or PlasmaOrdered By: Jose Forman on 12-06-2024 Bilirubin [Mass/Vol] Bilirubin.total [Mass/volume] in Serum or Plasma 0.3-1.0 [facility] Calcium [Mass/volume] in Ser um or PlasmaOrdered By: Jose Forman on 12-06-2024 Calcium [Mass/Vol] Calcium [Mass/volume ] in Serum or Plasma 8.6-10.3 [facility] Carbon dioxide, total [Moles /volume] in Serum or PlasmaOrdered By: Jose Forman on 12-06-2024 CO2 [Moles/Vol] Carbon dioxide, tota l [Moles/volume] in Serum or Plasma 21.0-31.0 [facility] Chloride [Moles/volume] in S eamon or PlasmaOrdered By: Jose Forman on 12-06-2024 Chloride [Moles/Vol] Chloride [Moles/vol ume] in Serum or Plasma 98-107 [facility] Choriogonadotropin.beta subu nit [Units/volume] in Serum or PlasmaOrdered By: Jose Forman on 12-06-2024 HCG.beta subunit Qn Choriogonadotropin.b eta subunit [Units/volume] in Serum or Plasma [facility] Comment on above: Approximate Approxim ate hCG Gestational Age Range (mIU/ml) (weeks)0.2-1 5-50 1-2 50-500 2-3 100-5,000 3-4 500-10,000 4-5 1,000-50,000 5-6 10,000-100,000 6-8 15,000-200,000 8-12 10,000-100,000 Color Auto (U)Ordered By: Edin Forman on 12-06-2024 Color (U) Color of Urine by Auto Yellow Fi [facility] Complete Blood Count Auto Di ffon 12-06-2024 Basophils (Bld) [#/Vol] 0.0 10*3/uL Normal 0.0-0.2 [facility] Comment on above: Result Comment: PERF ORMED BY: [facility] [place] [address] PATHOLOGIST CLEARING HAND LEÓN GARCIA M.D. Performed By: #### C BC, HCGQNT, LIPASE, PT, HS TROP, PTT, HEPATIC, BMP ####[address] Basophils/100 WBC (Bld) 0.4 % Normal . [facility] Comment on above: Performed By: #### C BC, HCGQNT, LIPASE, PT, HS TROP, PTT, HEPATIC, BMP ####[address] Eosinophils (Bld) [#/Vol] 0.0 10*3/uL Normal 0.0-0.45 [facility] Comment on above: Performed By: #### C BC, HCGQNT, LIPASE, PT, HS TROP, PTT, HEPATIC, BMP ####[address] Eosinophils/100 WBC (Bld) 0.4 % Normal . [facility] Comment on above: Performed By: #### C BC, HCGQNT, LIPASE, PT, HS TROP, PTT, HEPATIC, BMP ####[address] Erythrocyte distribution width (RBC) [Ratio] 13.0 % Normal 11.9-15.3 [facility] Comment on above: Performed By: #### C BC, HCGQNT, LIPASE, PT, HS TROP, PTT, HEPATIC, BMP ####[address] Hematocrit (Bld) [Volume fraction] 38.5 % Normal 34.0-46.4 [facility] Comment on above: Performed By: #### C BC, HCGQNT, LIPASE, PT, HS TROP, PTT, HEPATIC, BMP ####[address] Hemoglobin (Bld) [Mass/Vol] 13.4 g/dL Normal 11.8-15.4 [facility] Comment on above: Performed By: #### C BC, HCGQNT, LIPASE, PT, HS TROP, PTT, HEPATIC, BMP ####[address] Lymphocytes (Bld) [#/Vol] 1.1 10*3/uL Normal 1.00-4.8 [facility] Comment on above: Performed By: #### C BC, HCGQNT, LIPASE, PT, HS TROP, PTT, HEPATIC, BMP ####[address] Lymphocytes/100 WBC (Bld) 14.1 % Normal . [facility] Comment on above: Performed By: #### C BC, HCGQNT, LIPASE, PT, HS TROP, PTT, HEPATIC, BMP ####[address] MCH (RBC) [Entitic mass] 27.6 pg Normal 24.7-34.3 [facility] Comment on above: Performed By: #### C BC, HCGQNT, LIPASE, PT, HS TROP, PTT, HEPATIC, BMP ####[address] MCV (RBC) [Entitic vol] 79.6 fL Low 80-100 [facility] Comment on above: Performed By: #### C BC, HCGQNT, LIPASE, PT, HS TROP, PTT, HEPATIC, BMP ####[address] Mean Corpuscular HGB Conc 34.7 g/dL Normal 32.0-35.0 [facility] Comment on above: Performed By: #### C BC, HCGQNT, LIPASE, PT, HS TROP, PTT, HEPATIC, BMP ####[address] Monocytes (Bld) [#/Vol] 0.5 10*3/uL Normal 0.0-0.8 [facility] Comment on above: Performed By: #### C BC, HCGQNT, LIPASE, PT, HS TROP, PTT, HEPATIC, BMP ####[address] Monocytes/100 WBC (Bld) 16.18 % Normal 0.00-20.00 [facility] Comment on above: Performed By: #### C BC, HCGQNT, LIPASE, PT, HS TROP, PTT, HEPATIC, BMP ####[address] Monocytes/100 WBC (Bld) 6.4 % Normal . [facility] Comment on above: Performed By: #### C BC, HCGQNT, LIPASE, PT, HS TROP, PTT, HEPATIC, BMP ####[address] Neutrophils (Bld) [#/Vol] 5.9 10*3/uL Normal 1.8-7.7 [facility] Comment on above: Performed By: #### C BC, HCGQNT, LIPASE, PT, HS TROP, PTT, HEPATIC, BMP ####[address] Neutrophils/100 WBC (Bld) 78.7 % Normal . [facility] Comment on above: Performed By: #### C BC, HCGQNT, LIPASE, PT, HS TROP, PTT, HEPATIC, BMP ####[address] NRBC% 0.0 /100{WBC} Normal 0-0.5 [facility] Comment on above: Performed By: #### C BC, HCGQNT, LIPASE, PT, HS TROP, PTT, HEPATIC, BMP ####[address] Platelet mean volume (Bld) [Entitic vol] 8.7 fL Normal 6.3-10.7 [facility] Comment on above: Performed By: #### C BC, HCGQNT, LIPASE, PT, HS TROP, PTT, HEPATIC, BMP ####[facility] [address] Platelets (Bld) [#/Vol] 230 10*3/uL Normal 150-450 [facility] Comment on above: Performed By: #### C BC, HCGQNT, LIPASE, PT, HS TROP, PTT, HEPATIC, BMP ####[facility] RBC (Bld) [#/Vol] 4.84 10*6/uL Normal 3.60-5.00 [facility] Comment on above: Performed By: #### C BC, HCGQNT, LIPASE, PT, HS TROP, PTT, HEPATIC, BMP ####[facility] WBC (Bld) [#/Vol] 7.6 10*3/uL Normal 3.8-11.6 [facility] Comment on above: Performed By: #### C BC, HCGQNT, LIPASE, PT, HS TROP, PTT, HEPATIC, BMP ####[facility] Creatinine [Mass/volume] in Serum or PlasmaOrdered By: Jose Forman on 12-06-2024 Creatinine [Mass/Vol] Creatinine [Mass/v olume] in Serum or Plasma 0.60-1.20 [facility] Dipstick and Microscopicon 0 12-06-2024 Appearance (U) Clear Normal Clear [facility] Comment on above: Order Comment: Name Collection Type:: Clean-Voided Midstream Performed By: #### U HCG, ADDONUAPLUS #### [facility] [address] Bacteria,Urine None Seen Normal None Seen [facility] Comment on above: Order Comment: Name Collection Type:: Clean-Voided Midstream Performed By: #### U HCG, ADDONUAPLUS #### [facility] [address] Bilirubin,Urine Negative Normal Negative [facility] Comment on above: Order Comment: Name Collection Type:: Clean-Voided Midstream Performed By: #### U HCG, ADDONUAPLUS #### [address] Color (U) Yellow Normal Yellow [facility] Comment on above: Order Comment: Name Collection Type:: Clean-Voided Midstream Performed By: #### U HCG, ADDONUAPLUS #### [address] Glucose Ql (U) Normal Normal Normal [facility] Comment on above: Order Comment: Name Collection Type:: Clean-Voided Midstream Performed By: #### U HCG, ADDONUAPLUS #### [place] [address] [place] Hyaline Casts,Urine None Normal 0-8 [facility] Comment on above: Order Comment: Name Collection Type:: Clean-Voided Midstream Performed By: #### U HCG, ADDONUAPLUS #### [address] Ketones Ql (U) 1+ High Negative [facility] Comment on above: Order Comment: Name Collection Type:: Clean-Voided Midstream Performed By: #### U HCG, ADDONUAPLUS #### [address] Leukocyte esterase Test strip Ql (U) Negative Normal Negative [facility] Comment on above: Order Comment: Name Collection Type:: Clean-Voided Midstream Performed By: #### U HCG, ADDONUAPLUS #### [place] [address] [place] Mucus,Urine Rare Normal [facility] Comment on above: Order Comment: Name Collection Type:: Clean-Voided Midstream Performed By: #### U HCG, ADDONUAPLUS #### [place] [address] [place] Nitrite,Urine Negative Normal Negative [facility] Comment on above: Order Comment: Name Collection Type:: Clean-Voided Midstream Performed By: #### U HCG, ADDONUAPLUS #### [address] [address] [place] Occult Blood,Urine Negative Normal Negative [facility] Comment on above: Order Comment: Name Collection Type:: Clean-Voided Midstream Performed By: #### U HCG, ADDONUAPLUS #### [address] pH (U) 6.5 [pH] Normal 5.0-9.0 [facility] Comment on above: Order Comment: Name Collection Type:: Clean-Voided Midstream Performed By: #### U HCG, ADDONUAPLUS #### [address] Protein,Urine Trace High Negative [facility] Comment on above: Order Comment: Name Collection Type:: Clean-Voided Midstream Performed By: #### U HCG, ADDONUAPLUS #### [address] RBC,Urine 1-2 Normal 0-4 [facility] Comment on above: Order Comment: Name Collection Type:: Clean-Voided Midstream Performed By: #### U HCG, ADDONUAPLUS #### [address] Specificy [place],Urine 1.025 Normal 1.001-1.03 0 [facility] Comment on above: Order Comment: Name Collection Type:: Clean-Voided Midstream Performed By: #### U HCG, ADDONUAPLUS #### [place] [address] [place] Squamous Epithelial Cell,Urine 1-2 Normal 0-2 [facility] Comment on above: Order Comment: Name Collection Type:: Clean-Voided Midstream Performed By: #### U HCG, ADDONUAPLUS #### [place] [address] [place] Urobilinogen,Urine Normal Normal Normal [facility] Comment on above: Order Comment: Name Collection Type:: Clean-Voided Midstream Performed By: #### U HCG, ADDONUAPLUS #### [place] [address] [place] WBC,Urine 1-2 Normal 0-4 [facility] Comment on above: Order Comment: Name Collection Type:: Clean-Voided Midstream Performed By: #### U HCG, ADDONUAPLUS #### [address] [address] [facility] ECG 12 lead ECGon 12-06-2024 ECG 12 lead ECG [facility] [address] [place] [address] [place] [address] Electrocardiograph Report Signed Patient: Noris Goetz MR#: [id number] 61 : 1990 Acct:[id number] Age/Sex: 34 / F ADM Date: 12/06/24 Loc: ER Room: Type: [facility] ER Attending Dr: Ordering Provider: Jose [...] branch block Confirmed by Jose FORMAN DO ([id number]) on 12/06/2024 10:38:39 AM Referred By: Electronically Signed By: Jose FORMAN DO Transcribed By: MUS Signed By Jose Forman DO 0 12/06/24 1038 Normal [facility] Eosinophils Auto (Bld) [#/Vo l]Ordered By: Jose Forman on 12-06-2024 Eosinophils (Bld) [#/Vol] Automated eosinophil count 0.0-0.45 [facility] Eosinophils/100 WBC Auto (Bl d)Ordered By: Jose Forman on 12-06-2024 Eosinophils/100 WBC (Bld) Automated eosinophil % . [facility] Epithelial cells.squamous [# /area] in Urine sediment by Automated countOrdered By: Jose Forman on 12-06-2024 Epithelial cells.squamous Auto (Urine sed) [#/Area] Epithelial cells.squamous [#/area] in Urine sediment by Automated count 0-2 [facility] Erythrocyte distribution wid th Auto (RBC) [Ratio]Ordered By: Jose Forman on 12-06-2024 Erythrocyte distribution width (RBC) [Ratio] Erythrocyte distribution width [Ratio] by Automated count 11.9-15.3 [facility] Erythrocytes [#/area] in Uri ne sediment by Automated countOrdered By: Jose Forman on 12-06-2024 RBC Auto (Urine sed) [#/Area] Erythrocytes [#/area] in Urine sediment by Automated count 0-4 [facility] Globulin Calc (S) [Mass/Vol] Ordered By: Jose Forman on 12-06-2024 Globulin (S) [Mass/Vol] Serum globulin measurement by calculation (mass/volume) [facility] Glucose [Mass/volume] in Ser um or PlasmaOrdered By: Jose Forman on 12-06-2024 Glucose [Mass/Vol] Glucose [Mass/volume ] in Serum or Plasma 70-100 [facility] Comment on above: ADA recommended refe [...] [Mass/volume] in Urine by Test strip Normal [facility] HCG ( test) IA.rapi d Ql (U)Ordered By: Jose Forman on 12-06-2024 HCG ( test) Ql (U) Urine human chorionic gonadotropin (hCG) detection by immunoassay High [facility] HCG,Quantitativeon HCG,Quantitative 664884.00 m[iU]/mL Normal [facility] Comment on above: Result Comment: Appr oximate Approximate hCG Gestational Age Range (mIU/ml) (weeks) 0.2-1 5-50 1-2 50-500 2-3 100-5,000 3-4 500-10,000 4-5 1,000-50,000 5-6 10,000-100,000 6-8 15,000-200,000 8-12 10,000-100,000 PERFORMED BY: [facility] [place] [address] PATHOLOGIST CLEARING HAND LEÓN GARCIA M.D. Performed By: #### C BC, HCGQNT, LIPASE, PT, HS TROP, PTT, HEPATIC, BMP ####[place] [address] HCG,Urineon 12-06-2024 Beta HCG ( test) Ql (U) Positive High [facility] Comment on above: Order Comment: Name Collection Type:: Clean-Voided Midstream Result Comment: PERF ORMED BY: [facility] [address] [place] [address] PATHOLOGIST CLEARING HAND LEÓN GARCIA M.D. Performed By: #### U HCG, ADDONUAPLUS #### [address] Hematocrit Auto (Bld) [Volum e fraction]Ordered By: Jose Forman on 12-06-2024 Hematocrit (Bld) [Volume fraction] Hematocrit [Volume Fraction] of Blood by Automated count 34.0-46.4 [facility] Hemoglobin Test strip Ql (U) Ordered By: Jose Forman on 12-06-2024 Hemoglobin Ql (U) Hemoglobin [Presence ] in Urine by Test strip Negative [facility] Hemoglobin [Mass/volume] in BloodOrdered By: Jose Forman on 12-06-2024 Hemoglobin (Bld) [Mass/Vol] Hemoglobin [Mass/volume] in Blood 11.8-15.4 [facility] Hepatic Panelon 12-06-2024 Albumin [Mass/Vol] 4.1 g/dL Normal 3.5-5.7 [facility] Comment on above: Performed By: #### C BC, HCGQNT, LIPASE, PT, HS TROP, PTT, HEPATIC, BMP ####[place] [address] [address] Albumin/Globulin [Mass ratio] 1.6 {ratio} Normal [facility] Comment on above: Performed By: #### C BC, HCGQNT, LIPASE, PT, HS TROP, PTT, HEPATIC, BMP ####[place] [id number] [address] ALP [Catalytic activity/Vol] 47 U/L Normal 34-104 [facility] Comment on above: Performed By: #### C BC, HCGQNT, LIPASE, PT, HS TROP, PTT, HEPATIC, BMP ####[address] ALT [Catalytic activity/Vol] 11 U/L Normal 7-52 [facility] Comment on above: Performed By: #### C BC, HCGQNT, LIPASE, PT, HS TROP, PTT, HEPATIC, BMP ####[address] AST [Catalytic activity/Vol] 12 U/L Low 13-39 [facility] Comment on above: Performed By: #### C BC, HCGQNT, LIPASE, PT, HS TROP, PTT, HEPATIC, BMP ####[address] Bilirubin [Mass/Vol] 0.5 mg/dL Normal 0.3-1.0 [facility] Comment on above: Performed By: #### C BC, HCGQNT, LIPASE, PT, HS TROP, PTT, HEPATIC, BMP ####[address] Bilirubin,Indirect 0.4 mg/dL Normal [facility] Comment on above: Performed By: #### C BC, HCGQNT, LIPASE, PT, HS TROP, PTT, HEPATIC, BMP ####[address] Bilirubin.indirect [Mass/Vol] 0.10 mg/dL Normal 0.03-0.18 [facility] Comment on above: Performed By: #### C BC, HCGQNT, LIPASE, PT, HS TROP, PTT, HEPATIC, BMP ####[address] Globulin (S) [Mass/Vol] 2.6 g/dL Normal [facility] Comment on above: Performed By: #### C BC, HCGQNT, LIPASE, PT, HS TROP, PTT, HEPATIC, BMP ####[address] [place] [address] [facility] Protein [Mass/Vol] 6.7 g/dL Normal 6.4-8.9 [facility] Comment on above: Performed By: #### C BC, HCGQNT, LIPASE, PT, HS TROP, PTT, HEPATIC, BMP ####[facility] [id number] [place] [id number] [facility] Hyaline casts [#/area] in Ur ine sediment by Automated countOrdered By: Jose Forman on 12-06-2024 Hyaline casts Auto (Urine sed) [#/Area] Hyaline casts [#/area] in Urine sediment by Automated count 0-8 [facility] INR in Platelet poor plasma by Coagulation assayOrdered By: Jose Forman on 12-06-2024 INR Coag (PPP) [Relative time] INR in Platelet poor plasma by Coagulation assay [facility] Comment on above: INR Therapeutic Rang [...] n Urine by Test strip High Negative [facility] Leukocyte esterase [Presence ] in Urine by Test stripOrdered By: Jose Forman on 12-06-2024 Leukocyte esterase Test strip Ql (U) Leukocyte esterase [Presence] in Urine by Test strip Negative [facility] Leukocytes [#/area] in Urine sediment by Automated countOrdered By: Jose Forman on 12-06-2024 WBC Auto (Urine sed) [#/Area] Leukocytes [#/area] in Urine sediment by Automated count 0-4 [facility] Leukocytes [#/volume] correc randolph for nucleated erythrocytes in Blood by Automated counOrdered By: Jose Forman on 12-06-2024 WBC corrected for nucl RBC Auto (Bld) [#/Vol] Leukocytes [#/volume] corrected for nucleated erythrocytes in Blood by Automated coun 3.8-11.6 [facility] Lipaseon 12-06-2024 Lipase [Catalytic activity/Vol] 11.0 U/L Normal 11.0-82.0 [facility] Comment on above: Performed By: #### C BC, HCGQNT, LIPASE, PT, HS TROP, PTT, HEPATIC, BMP ####[facility] [id number] [place] [address] [facility] Lipase [Enzymatic activity/v olume] in Serum or PlasmaOrdered By: Jose Forman on 12-06-2024 Lipase [Catalytic activity/Vol] Lipase [Enzymatic activity/volume] in Serum or Plasma 11.0-82.0 [facility] Lymphocytes Auto (Bld) [#/Vo l]Ordered By: Jose Forman on 12-06-2024 Lymphocytes (Bld) [#/Vol] Lymphocytes [#/volume] in Blood by Automated count 1.00-4.8 [facility] Lymphocytes/100 WBC Auto (Bl d)Ordered By: Jose Forman on 12-06-2024 Lymphocytes/100 WBC (Bld) Lymphocytes/100 leukocytes in Blood by Automated count . [facility] MCH Auto (RBC) [Entitic mass ]Ordered By: Jose Forman on 12-06-2024 MCH (RBC) [Entitic mass] MCH [Entitic mass] by Automated count 24.7-34.3 [facility] MCHC Auto (RBC) [Mass/Vol]Or dered By: Jose Forman on 12-06-2024 MCHC (RBC) [Mass/Vol] MCHC [Mass/volume] by Automated count 32.0-35.0 [facility] MCV Auto (RBC) [Entitic vol] Ordered By: Jose Forman on 12-06-2024 MCV (RBC) [Entitic vol] MCV [Entitic volume] by Automated count Low 80-100 [facility] Monocyte distribution width [Entitic volume] in Blood by AutomatedOrdered By: Jose Forman on 12-06-2024 Monocyte distribution width Auto (Bld) [Entitic vol] Monocyte distribution width [Entitic volume] in Blood by Automated 0.00-20.00 [facility] Monocytes Auto (Bld) [#/Vol] Ordered By: Jose Forman on 12-06-2024 Monocytes (Bld) [#/Vol] Automated blood monocyte count 0.0-0.8 [facility] Monocytes/100 WBC Auto (Bld) Ordered By: Jose Forman on 12-06-2024 Monocytes/100 WBC (Bld) Automated monocyte % . [facility] Mucus [Presence] in Urine by AutomatedOrdered By: Jose Forman on 12-06-2024 Mucus Auto Ql (U) Mucus [Presence] in Urine by Automated [facility] Neutrophils Auto (Bld) [#/Vo l]Ordered By: Jose Forman on 12-06-2024 Neutrophils (Bld) [#/Vol] Neutrophils [#/volume] in Blood by Automated count 1.8-7.7 [facility] Neutrophils/100 WBC Auto (Bl d)Ordered By: Jose Forman on 12-06-2024 Neutrophils/100 WBC (Bld) Automated neutrophil % . [facility] Nitrite Test strip Ql (U)Ord ered By: Jose Forman on 12-06-2024 Nitrite Ql (U) Nitrite [Presence] i n Urine by Test strip Negative [facility] No Panel InformationOrdered By: Jose Forman on 12-06-2024 Estimated GFR (CKD-EPI) > 60.0 mL/Min [facility] Creatinine Clearance (Chem 129.71 [facility] Nucleated erythrocytes [Pres ence] in Blood by Automated countOrdered By: Jose Forman on 12-06-2024 Nucleated RBC Auto Ql (Bld) Nucleated erythrocytes [Presence] in Blood by Automated count 0-0.5 [facility] Partial Thromboplastin Timeo n 12-06-2024 aPTT Coag (Bld) [Time] 28.1 s Normal 25.1-36.5 Th e [facility] Comment on above: Result Comment: A he matocrit value greater than 55% may lead to inaccurate results in coagulation testing. Patients having hematocrit values >55% require a special collection tube for coagulation studies. Please contact the laboratory at [phone] for redraw instructions. PERFORMED BY: [facility] [place] [address] PATHOLOGIST CLEARING HAND LEÓN GARCIA M.D. Performed By: #### C BC, HCGQNT, LIPASE, PT, HS TROP, PTT, HEPATIC, BMP ####[facility] [id number] Platelet mean volume Auto (B ld) [Entitic vol]Ordered By: Jose Forman on 12-06-2024 Platelet mean volume (Bld) [Entitic vol] Platelet mean volume [Entitic volume] in Blood by Automated count 6.3-10.7 [facility] Platelets Auto (Bld) [#/Vol] Ordered By: Jose Forman on 12-06-2024 Platelets (Bld) [#/Vol] Platelets [#/volume] in Blood by Automated count 150-450 [facility] Potassium [Moles/volume] in Serum or PlasmaOrdered By: Jose Forman on 12-06-2024 Potassium [Moles/Vol] Potassium [Moles/v olume] in Serum or Plasma 3.5-5.1 [facility] Protein Test strip (U) [Mass /Vol]Ordered By: Jose Forman on 12-06-2024 Protein (U) [Mass/Vol] Protein [Mass/vol ume] in Urine by Test strip High Negative [facility] Protein [Mass/volume] in Ser um or PlasmaOrdered By: Jose Forman on 12-06-2024 Protein [Mass/Vol] Protein [Mass/volume ] in Serum or Plasma 6.4-8.9 [facility] Prothrombin Time INRon 12-06 INR Coag (PPP) [Relative time] 1.1 {INR} Normal [facility] Comment on above: [...] LIPASE, PT, HS TROP, PTT, HEPATIC, BMP ####[facility] [id number] [place] [id number] [facility] PT Coag (PPP) [Time] 12.3 s Normal 9.0-12.9 [facility] Comment on above: Result Comment: A he matocrit value greater than 55% may lead to inaccurate results in coagulation testing. Patients having hematocrit values >55% require a special collection tube for coagulation studies. Please contact the laboratory at [phone] for redraw instructions. Performed By: #### C BC, HCGQNT, LIPASE, PT, HS TROP, PTT, HEPATIC, BMP ####[facility] [id number] [place] [address] [facility] Prothrombin time (PT)Ordered By: Jose Forman on 12-06-2024 PT Coag (PPP) [Time] Prothrombin time (PT) 9.0- 12.9 [facility] Comment on above: A hematocrit value g reater than 55% may lead to inaccurate results in coagulation testing. Patients having hematocrit values >55% require a special collection tube for coagulation studies. Please contact the laboratory at [phone] for redraw instructions. RBC Auto (Bld) [#/Vol]Ordere d By: Jose Forman on 12-06-2024 RBC (Bld) [#/Vol] Erythrocytes [#/volu me] in Blood by Automated count 3.60-5.00 [facility] Serum or plasma albumin/glob ulin mass ratioOrdered By: Jose Forman on 12-06-2024 Albumin/Globulin [Mass ratio] Serum or plasma albumin/globulin mass ratio [facility] Serum or plasma anion gap de terminationOrdered By: Jose Forman on 12-06-2024 Anion gap [Moles/Vol] Serum or plasma an ion gap determination 6.0-15.0 [facility] Serum or plasma non-glucuron idated bilirubin measurement (mass/volume)Ordered By: Jose Forman on 12-06-2024 Bilirubin.indirect [Mass/Vol] Serum or plasma non-glucuronidated bilirubin measurement (mass/volume) [facility] Sodium [Moles/volume] in Ser um or PlasmaOrdered By: Jose Forman on 12-06-2024 Sodium [Moles/Vol] Sodium [Moles/volume ] in Serum or Plasma Low 136-145 [facility] Specific gravity Test strip (U) [Rel density]Ordered By: Jose Forman on 12-06-2024 Specific gravity (U) [Rel density] Specific gravity of Urine by Test strip 1.001-1.03 0 [facility] Troponin I High Sensitivityo n 12-06-2024 Troponin I High Sensitivity 3 Normal 0-15 [facility] Comment on above: Result Comment: The Troponin units of report have been changed to meet the Chest Pain Accreditation requirement, element EC5.M1l2. Troponin units are changed from pg/ml to ng/L. Also, the decimal is removed and results are in whole numbers. PERFORMED BY: [facility] [address] [place] [address] PATHOLOGIST CLEARING HAND LEÓN GARCIA M.D. Performed By: #### C BC, HCGQNT, LIPASE, PT, HS TROP, PTT, HEPATIC, BMP ####[facility] [id number] Troponin I.cardiac [Mass/vol ume] in Serum or Plasma by Detection limit <= 0.01 ng/Ordered By: Jose Forman on 12-06-2024 Troponin I.cardiac DL <= 0.01 ng/mL [Mass/Vol] Troponin I.cardiac [Mass/volume] in Serum or Plasma by Detection limit <= 0.01 ng/ 0-15 [facility] Comment on above: The Troponin units o f report have been changed to meet the Chest Pain Accreditation requirement, element EC5.M1l2. Troponin units are changed from pg/ml to ng/L. Also, the decimal is removed and results are in whole numbers. US OB <= 14 weeks fetuson US OB <= 14 weeks fetus [facility] [place] [address] Ultrasound Report Signed Patient: Noris Goetz MR#: [id number] 61 : 1990 Acct:[id number] Age/Sex: 34 / F ADM Date: 12/06/24 Loc: ER Room: Type: [facility] ER Attending Dr: Ordering Provider: Jose Forman DO Date of Service: 12/06/24 US/US OB <= 14 weeks fetus: Abdominal Pain Copies to: Jose Forman DO Obstetrical ultrasound for fetus less than 14 weeks HISTORY: Abdominal pain. Vaginal bleeding COMPARISON: None The heart rate is 126bpm. Ovaries not visualized No free fluid identified in cul-de-sac. No subchorionic hemorrhage identified. [place]-rump length measures 6.4cm consistent with 6 weeks 4 days. The yolk sac is not seen. The estimated due date by this ultrasound is 07/28/2025. US/US OB <= 14 weeks fetus IMPRESSION: Single live anterior gestation 6 weeks 4 days. Impression dictated by: Alfonzo Flores M.D.12/06/2024 9:55 AM Dictation Location: [place] [address] Tech: Antonieta Greenberg Transcribed By: JOSESITO 12/06/24954 Dictated By: Alfonzo Flores DO 12/06/2454 Signed By: 12/06/24954 Normal [facility] Urea nitrogen [Mass/volume] in Serum or PlasmaOrdered By: Jose Forman on 12-06-2024 Urea nitrogen [Mass/Vol] Urea nitrogen [Mass/volume] in Serum or Plasma 05-11 [facility] Urobilinogen Test strip (U) [Mass/Vol]Ordered By: Jose Forman on 12-06-2024 Urobilinogen (U) [Mass/Vol] Urobilinogen [Mass/volume] in Urine by Test strip Normal [facility] WBC Auto (Bld) [#/Vol]Ordere d By: Jose Forman on 12-06-2024 WBC (Bld) [#/Vol] Leukocytes [#/volume ] in Blood by Automated count 3.8-11.6 [facility] aPTT in Platelet poor plasma by Coagulation assayOrdered By: Jose Forman on 12-06-2024 aPTT Coag (PPP) [Time] Activated partial thromboplastin time (aPTT) in platelet poor plasma by coagulation a 25.1-36.5 [facility] Comment on above: A hematocrit value g reater than 55% may lead to inaccurate results in coagulation testing. Patients having hematocrit values >55% require a special collection tube for coagulation studies. Please contact the laboratory at [phone] for redraw instructions. pH Test strip (U)Ordered By: Jose Forman on 12-06-2024 pH (U) pH of Urine by Test strip 5.0-9.0 [facility] XR chest 2V*on 08-11-2024 XR chest 2V* [facility] [address] [address] XRay Report Signed Patient: Noris Goetz MR#: [id number] 61 : 1990 Acct:[id number] Age/Sex: 34 / F ADM Date: 08/11/24 Loc: XDUCLY Room: Type: [facility] Attending Dr: Melissa Reddy TIRE MOLD TESTER Copies to: Melissa Reddy APRN Ordering Provider: [...] Alfonzo Flores M.D.08/11/2024 9:59 AM Dictation Location: [place] [address] Transcribed By: [facility] 08/11/2459 Dictated By: Alfonzo Flores DO 08/11/24 0958 Signed By: 08/11/24 0959 Normal [facility] No Panel InformationOrdered By: Derrick Wilson on 08-02-2024 Miscellaneous Pathology Test See comment [facility] Comment on above: See report. Scanned copy available in EMR. Pathology Request for Lab Co rpon 08-02-2024 Pathology Request for Lab Ministerio Normal [facility] Comment on above: Order Comment: PATHO LOGY SKIN SPECIMEN Result Comment: See report. Scanned copy available in EMR. PERFORMED BY: [place] [address] PATHOLOGIST CLEARING HAND JIANLAN SUN M.D. Performed By: #### P ATH TO [facility] ####[facility] [id number] [place] [id number] [facility] US extremity nonvascularon 0 05-23-2024 US extremity nonvascular [facility] [address] [place] [address] [place] [address] Ultrasound Report Signed Patient: Noris Goetz MR#: [id number] 61 : 1990 Acct:[id number] Age/Sex: 34 / F ADM Date: 05/23/24 Loc: Room: Type: [facility] Attending Dr: Marianela Oliva MD Ordering [...] Annel Barnhart M.D.05/23/2024 2:18 PM Dictation Location: [place] [address] Tech: Ayleen Saldañaalphonso Transcribed By: JOSESITO 05/23/24 1418 Dictated By: Annel Barnhart MD 05/23/24 1414 Signed By: 05/23/24 1418 Normal [facility] Automated basophil %Ordered By: Mario Perez on 05-17-2024 Basophils/100 WBC (Bld) 0.8 % Normal . [facility] Comment on above: Order Comment: RONNIE HollandKW Performed By: #### P ILLAR TSH, PILLAR CBC, PILLAR BMP, PILLAR LIPID #### [address] Automated basophil countOrde red By: Mario Ana on 05-17-2024 Basophils (Bld) [#/Vol] 0.0 10*3/uL Normal 0.0-0.2 [facility] Comment on above: Order Comment: FASTI NG. JKW Result Comment: PERF ORMED BY: [place] [address] PATHOLOGIST CLEARING HAND JOAN CROWLEY M.D. Performed By: #### P ILLAR TSH, PILLAR CBC, PILLAR BMP, PILLAR LIPID #### [address] Automated blood monocyte cou ntOrdered By: Mario Perez on 05-17-2024 Monocytes (Bld) [#/Vol] 0.6 10*3/uL Normal 0.0-0.8 [facility] Comment on above: Order Comment: FASTI NG. JKW Performed By: #### P ILLAR TSH, PILLAR CBC, PILLAR BMP, PILLAR LIPID #### [address] Automated eosinophil %Ordere d By: Mario Perez on 05-17-2024 Eosinophils/100 WBC (Bld) 5.3 % Normal . [facility] Comment on above: Order Comment: FASTI NG. JKW Performed By: #### P ILLAR TSH, PILLAR CBC, PILLAR BMP, PILLAR LIPID #### [address] Automated eosinophil countOr dered By: Mario Perez on 05-17-2024 Eosinophils (Bld) [#/Vol] 0.3 10*3/uL Normal 0.0-0.45 [facility] Comment on above: Order Comment: FASTI NG. JKW Performed By: #### P ILLAR TSH, PILLAR CBC, PILLAR BMP, PILLAR LIPID #### [address] Automated monocyte %Ordered By: Mario Perez on 05-17-2024 Monocytes/100 WBC (Bld) 10.8 % Normal . [facility] Comment on above: Order Comment: FASTI NG. JKW Performed By: #### P ILLAR TSH, PILLAR CBC, PILLAR BMP, PILLAR LIPID #### [facility] [address] Automated neutrophil %Ordere d By: Mario Perez on 05-17-2024 Neutrophils/100 WBC (Bld) 55.1 % Normal . [facility] Comment on above: Order Comment: FASTI NG. JKW Performed By: #### P ILLAR TSH, PILLAR CBC, PILLAR BMP, PILLAR LIPID #### [facility] [address] Calcium [Mass/volume] in Ser um or PlasmaOrdered By: Mario Perez on 05-17-2024 Calcium [Mass/Vol] 8.5 mg/dL Low 8.6-10.3 [facility] Comment on above: Order Comment: FASTI NG. JKW Performed By: #### P ILLAR TSH, PILLAR CBC, PILLAR BMP, PILLAR LIPID #### [facility] [address] Carbon dioxide, total [Moles /volume] in Serum or PlasmaOrdered By: Mario Perez on 05-17-2024 CO2 [Moles/Vol] 27.7 mmol/L Normal 21.0-31.0 [facility] Comment on above: Order Comment: FASTI NG. JKW Performed By: #### P ILLAR TSH, PILLAR CBC, PILLAR BMP, PILLAR LIPID #### [facility] [address] [place] [address] [place] Chloride [Moles/volume] in S eamon or PlasmaOrdered By: Mario Perez on 05-17-2024 Chloride [Moles/Vol] 109 mmol/L High 98-107 [facility] Comment on above: Order Comment: FASTI NG. JKW Performed By: #### P ILLAR TSH, PILLAR CBC, PILLAR BMP, PILLAR LIPID #### [facility] [address] [place] [address] [place] Cholesterol [Mass/volume] in Serum or PlasmaOrdered By: Mario Perez on 05-17-2024 Cholesterol [Mass/Vol] 170 mg/dL Normal 140-200 [facility] Comment on above: Chol less than 200 m g/dl low riskChol 201-239 mg/dl borderline riskChol 240 mg/dl and greater high risk Order Comment: RONNIE HollandKW Result Comment: Chol less than 200 mg/dl low risk Chol 201-239 mg/dl borderline risk Chol 240 mg/dl and greater high risk Performed By: #### P ILLAR TSH, PILLAR CBC, PILLAR BMP, PILLAR LIPID #### [facility] [address] Cholesterol in LDL Calc [Mas s/Vol]Ordered By: Mario Perez on 05-17-2024 Cholesterol in LDL [Mass/Vol] 109 mg/dL High 0-100 [facility] Comment on above: LDL ATP III CLASSIFI CATIONLDL less than 100 mg/dL OptimalLDL 100-129 mg/dL Near or above optimalLDL 130-159 mg/dL Borderline highLDL 160-189 mg/dL HighLDL greater than 189 mg/dL Very high Cholesterol in VLDL Calc [Ma ss/Vol]Ordered By: Mario Perez on 05-17-2024 Cholesterol in VLDL [Mass/Vol] 10 mg/dL [facility] Creatinine [Mass/volume] in Serum or PlasmaOrdered By: Mario Perez on 05-17-2024 Creatinine [Mass/Vol] 0.73 mg/dL Normal 0.60-1.20 [facility] Comment on above: Order Comment: RONNIE MAURO JKW Performed By: #### P ILLAR TSH, PILLAR CBC, PILLAR BMP, PILLAR LIPID #### [facility] [address] [place] [id number] [facility] Employee Basic Metabolic Nails [place] 05-17-2024 GFR/1.73 sq M.predicted MDRD (S/P/Bld) [Vol rate/Area] mL/min/{1.73_m2} Normal [facility] Comment on above: Order Comment: RONNIE HollandKW Performed By: #### P ILLAR TSH, PILLAR CBC, PILLAR BMP, PILLAR LIPID #### [facility] [address] Employee Complete Blood Coun ton 05-17-2024 Mean Corpuscular HGB Conc 34.2 g/dL Normal 32.0-35.0 [facility] Comment on above: Order Comment: FASTI NG. JKW Performed By: #### P ILLAR TSH, PILLAR CBC, PILLAR BMP, PILLAR LIPID #### [facility] [address] NRBC% 0.1 /100{WBC} Normal 0-0.5 [facility] Comment on above: Order Comment: FASTI NG. JKW Performed By: #### P ILLAR TSH, PILLAR CBC, PILLAR BMP, PILLAR LIPID #### [address] Employee Lipid Profileon LDL Cholesterol,Calculated 109 mg/dL High 0-100 [facility] Comment on above: Order Comment: FASTI NG. JKW Result Comment: LDL ATP III CLASSIFICATION LDL less than 100 mg/dL Optimal LDL 100-129 mg/dL Near or above optimal LDL 130-159 mg/dL Borderline high LDL 160-189 mg/dL High LDL greater than 189 mg/dL Very high Performed By: #### P ILLAR TSH, PILLAR CBC, PILLAR BMP, PILLAR LIPID #### [address] Triglyceride w/Reflex 52 mg/dL Normal 0-149 [facility] Comment on above: [...] PILLAR CBC, PILLAR BMP, PILLAR LIPID #### [address] VLDL CHOLESTEROL 10 mg/dL Normal [facility] Comment on above: Order Comment: FASTI NG. JKW Performed By: #### P ILLAR TSH, PILLAR CBC, PILLAR BMP, PILLAR LIPID #### [facility] [address] [place] [address] Employee Thyroid Stim Hormon paulo 05-17-2024 Employee Thyroid Stim Hormone 1.90 u[iU]/mL Normal 0.45-5.33 [facility] Comment on above: Order Comment: FASTI NG. JKW Result Comment: PERF ORMED BY: [place] [address] PATHOLOGIST CLEARING HAND JOAN CROWLEY M.D. Performed By: #### P ILLAR TSH, PILLAR CBC, PILLAR BMP, PILLAR LIPID #### [address] Erythrocyte distribution wid th [Ratio] by Automated countOrdered By: Mario Perez on 05-17-2024 Erythrocyte distribution width (RBC) [Ratio] 13.7 % Normal 11.9-15.3 [facility] Comment on above: Order Comment: FASTI NG. JKW Performed By: #### P ILLAR TSH, PILLAR CBC, PILLAR BMP, PILLAR LIPID #### [address] Erythrocytes [#/volume] in B lood by Automated countOrdered By: Mario Perez on 05-17-2024 RBC (Bld) [#/Vol] 4.62 10*6/uL Normal 3.60-5.00 [facility] Comment on above: Order Comment: FASTI NG. JKW Performed By: #### P ILLAR TSH, PILLAR CBC, PILLAR BMP, PILLAR LIPID #### [facility] [address] [place] [address] Glucose [Mass/volume] in Ser um or PlasmaOrdered By: Mario Perez on 05-17-2024 Glucose [Mass/Vol] 95 mg/dL Normal 70-100 [facility] Comment on above: Order Comment: FASTI NG. JKW Performed By: #### P ILLAR TSH, PILLAR CBC, PILLAR BMP, PILLAR LIPID #### [facility] [address] Hematocrit [Volume Fraction] of Blood by Automated countOrdered By: Mario Perez on 05-17-2024 Hematocrit (Bld) [Volume fraction] 36.7 % Normal 34.0-46.4 [facility] Comment on above: Order Comment: FASTI NG. JKW Performed By: #### P ILLAR TSH, PILLAR CBC, PILLAR BMP, PILLAR LIPID #### [facility] [address] Hemoglobin [Mass/volume] in BloodOrdered By: Mario Perez on 05-17-2024 Hemoglobin (Bld) [Mass/Vol] 12.6 g/dL Normal 11.8-15.4 [facility] Comment on above: Order Comment: FASTI NG. JKW Performed By: #### P ILLAR TSH, PILLAR CBC, PILLAR BMP, PILLAR LIPID #### [facility] [address] Leukocytes [#/volume] correc randolph for nucleated erythrocytes in Blood by Automated counOrdered By: Mario Perez on 05-17-2024 WBC corrected for nucl RBC Auto (Bld) [#/Vol] 5.1 10*3/uL 3.8-11.6 [facility] Leukocytes [#/volume] in Blo od by Automated countOrdered By: Mario Perez on 05-17-2024 WBC (Bld) [#/Vol] 5.1 10*3/uL Normal 3.8-11.6 [facility] Comment on above: Order Comment: FASTI NG. JKW Performed By: #### P ILLAR TSH, PILLAR CBC, PILLAR BMP, PILLAR LIPID #### [facility] [address] [place] [address] [place] Lymphocytes [#/volume] in Bl ood by Automated countOrdered By: Mario Perez on 05-17-2024 Lymphocytes (Bld) [#/Vol] 1.4 10*3/uL Normal 1.00-4.8 [facility] Comment on above: Order Comment: FASTI NG. JKW Performed By: #### P ILLAR TSH, PILLAR CBC, PILLAR BMP, PILLAR LIPID #### [facility] [address] [place] [address] [place] Lymphocytes/100 leukocytes i n Blood by Automated countOrdered By: Mario Perez on 05-17-2024 Lymphocytes/100 WBC (Bld) 28.0 % Normal . [facility] Comment on above: Order Comment: FASTJoni COBIAN. JKW Performed By: #### P ILLAR TSH, PILLAR CBC, PILLAR BMP, PILLAR LIPID #### [facility] [address] MCH [Entitic mass] by Automa randolph countOrdered By: Mario Perez on 05-17-2024 MCH (RBC) [Entitic mass] 27.2 pg Normal 24.7-34.3 [facility] Comment on above: Order Comment: FASTJoni COBIAN. JKW Performed By: #### P ILLAR TSH, PILLAR CBC, PILLAR BMP, PILLAR LIPID #### [address] MCHC Auto (RBC) [Mass/Vol]Or dered By: Mario Perez on 05-17-2024 MCHC (RBC) [Mass/Vol] 34.2 g/dL 32.0-35.0 [facility] MCV [Entitic volume] by Auto mated countOrdered By: Mario Perez on 05-17-2024 MCV (RBC) [Entitic vol] 79.4 fL Low 80-100 [facility] Comment on above: Order Comment: FASTI ARANZA. JKW Performed By: #### P ILLAR TSH, PILLAR CBC, PILLAR BMP, PILLAR LIPID #### [facility] [address] Neutrophils [#/volume] in Bl ood by Automated countOrdered By: Mario Perez on 05-17-2024 Neutrophils (Bld) [#/Vol] 2.8 10*3/uL Normal 1.8-7.7 [facility] Comment on above: Order Comment: FASTJoni COBIAN. JKW Performed By: #### P ILLAR TSH, PILLAR CBC, PILLAR BMP, PILLAR LIPID #### [facility] [address] [place] [address] No Panel InformationOrdered By: Mario Perez on 05-17-2024 Estimated GFR (CKD-EPI) > 60.0 mL/Min [facility] Creatinine Clearance (Chem N/A [facility] Nucleated erythrocytes [Pres ence] in Blood by Automated countOrdered By: Mario Perez on 05-17-2024 Nucleated RBC Auto Ql (Bld) 0.1 /100{WBC} 0-0.5 [facility] Platelet mean volume [Entiti c volume] in Blood by Automated countOrdered By: Mario Perez on 05-17-2024 Platelet mean volume (Bld) [Entitic vol] 8.9 fL Normal 6.3-10.7 [facility] Comment on above: Order Comment: FASTI NG. JKW Performed By: #### P ILLAR TSH, PILLAR CBC, PILLAR BMP, PILLAR LIPID #### [address] Platelets [#/volume] in Bloo d by Automated countOrdered By: Mario Perez on 05-17-2024 Platelets (Bld) [#/Vol] 192 10*3/uL Normal 150-450 [facility] Comment on above: Order Comment: FASTI NG. JKW Performed By: #### P ILLAR TSH, PILLAR CBC, PILLAR BMP, PILLAR LIPID #### [facility] [address] [place] [address] Potassium [Moles/volume] in Serum or PlasmaOrdered By: Mario Perez on 05-17-2024 Potassium [Moles/Vol] 3.9 mmol/L Normal 3.5-5.1 [facility] Comment on above: Order Comment: FASTI NG. JKW Performed By: #### P ILLAR TSH, PILLAR CBC, PILLAR BMP, PILLAR LIPID #### [address] Serum or plasma anion gap de terminationOrdered By: Mario Perez on 05-17-2024 Anion gap [Moles/Vol] 7.2 mmol/L Normal 6.0-15.0 [facility] Comment on above: Order Comment: RONNIE HollandKW Performed By: #### P ILLAR TSH, PILLAR CBC, PILLAR BMP, PILLAR LIPID #### [facility] [address] Serum or plasma high density lipoprotein (HDL) cholesterol measurementOrdered By: Mario Perez on 05-17-2024 Cholesterol in HDL [Mass/Vol] 51 mg/dL Normal 23-92 [facility] Comment on above: HDL CHOL ATP-III CLA SSIFICATION Cardiovascular RiskHDL > or equal to 60 mg/dL LOWHDL < 40 mg/dL HIGH Order Comment: RONNIE HollandKW Result Comment: HDL CHOL ATP-III CLASSIFICATION Cardiovascular Risk HDL > or equal to 60 mg/dL LOW HDL < 40 mg/dL HIGH Performed By: #### P ILLAR TSH, PILLAR CBC, PILLAR BMP, PILLAR LIPID #### [facility] [address] Serum or plasma total choles terol/high density lipoprotein (HDL) cholesterol mass ratOrdered By: Mario Perez on 05-17-2024 Cholesterol.total/Chol esterol in HDL [Mass ratio] 3.3 {ratio} Normal <5.0 [facility] Comment on above: Order Comment: RONNIE HollandKW Performed By: #### P ILLAR TSH, PILLAR CBC, PILLAR BMP, PILLAR LIPID #### [facility] [address] Sodium [Moles/volume] in Ser um or PlasmaOrdered By: Mario Perez on 05-17-2024 Sodium [Moles/Vol] 140 mmol/L Normal 136-145 [facility] Comment on above: Order Comment: RONNIE HollandKW Performed By: #### P ILLAR TSH, PILLAR CBC, PILLAR BMP, PILLAR LIPID #### [facility] [address] [place] [address] Thyrotropin [Units/volume] i n Serum or PlasmaOrdered By: Mario Perez on 05-17-2024 TSH Qn 1.90 m[IU]/L 0.45-5.33 [facility] Triglyceride [Mass/volume] i n Serum or PlasmaOrdered By: Mario Perez on 05-17-2024 Triglyceride [Mass/Vol] 52 mg/dL 0-149 [facility] Comment on above: TRIG ATP III CLASSIF ICATIONTRIG less than 150 mg/dL NormalTRIG 150-199 mg/dL Borderline highTRIG 200-500 mg/dL High TRIG greater than 500 mg/dL Very highStandard traceable to the Center for Disease Conrtrol and Prevention (CDC) test method. Urea nitrogen [Mass/volume] in Serum or PlasmaOrdered By: Mario Perez on 05-17-2024 Urea nitrogen [Mass/Vol] 15 mg/dL Normal 7- [facility] Comment on above: Order Comment: RONNIE COBIAN. JKW Performed By: #### P ILLAR TSH, PILLAR CBC, PILLAR BMP, PILLAR LIPID #### [facility] [address] Alanine aminotransferase [En zymatic activity/volume] in Serum or PlasmaOrdered By: Mario Perez on 07-12-2023 ALT [Catalytic activity/Vol] 14 U/L 7-52 [facility] Albumin [Mass/volume] in Ser um or Plasma by Bromocresol green (BCG) dye binding methoOrdered By: Mario Perez on 07-12-2023 Albumin BCG dye [Mass/Vol] 4.2 g/dL 3.5-5.7 [facility] Alkaline phosphatase [Enzyma tic activity/volume] in Serum or PlasmaOrdered By: Mario Perez on 07-12-2023 ALP [Catalytic activity/Vol] 45 U/L 34-104 [facility] Aspartate aminotransferase [ Enzymatic activity/volume] in Serum or PlasmaOrdered By: Mario Perez on 07-12-2023 AST [Catalytic activity/Vol] 15 U/L 13-39 [facility] Bilirubin.total [Mass/volume ] in Serum or PlasmaOrdered By: Mario Perez on 07-12-2023 Bilirubin [Mass/Vol] 0.4 mg/dL 0.3-1.0 [facility] Calcium [Mass/volume] in Ser um or PlasmaOrdered By: Mario Perez on 07-12-2023 Calcium [Mass/Vol] 8.9 mg/dL 8.6-10.3 [facility] Carbon dioxide, total [Moles /volume] in Serum or PlasmaOrdered By: Mario Perez on 07-12-2023 CO2 [Moles/Vol] 28.7 mmol/L 21.0-31.0 [facility] Chloride [Moles/volume] in S eamon or PlasmaOrdered By: Mario Perez on 07-12-2023 Chloride [Moles/Vol] 106 mmol/L 98-107 [facility] Cholesterol [Mass/volume] in Serum or PlasmaOrdered By: Mario Perez on 07-12-2023 Cholesterol [Mass/Vol] 194 mg/dL 140-200 [facility] Comment on above: Chol less than 200 m g/dl low riskChol 201-239 mg/dl borderline riskChol 240 mg/dl and greater high risk Cholesterol in LDL Calc [Mas s/Vol]Ordered By: Mario Perez on 07-12-2023 Cholesterol in LDL [Mass/Vol] 119 mg/dL 0-100 [facility] Comment on above: LDL ATP III CLASSIFI CATIONLDL less than 100 mg/dL OptimalLDL 100-129 mg/dL Near or above optimalLDL 130-159 mg/dL Borderline highLDL 160-189 mg/dL HighLDL greater than 189 mg/dL Very high Cholesterol in VLDL Calc [Ma ss/Vol]Ordered By: Mario Perez on 07-12-2023 Cholesterol in VLDL [Mass/Vol] 12 mg/dL [facility] Creatinine [Mass/volume] in Serum or PlasmaOrdered By: Mario Perez on 07-12-2023 Creatinine [Mass/Vol] 0.78 mg/dL 0.60-1.20 [facility] Globulin Calc (S) [Mass/Vol] Ordered By: Mario Perez on 07-12-2023 Globulin (S) [Mass/Vol] 2.2 g/dL [facility] Glucose [Mass/volume] in Ser um or PlasmaOrdered By: Mario Perez on 07-12-2023 Glucose [Mass/Vol] 99 mg/dL 70-100 [facility] No Panel InformationOrdered By: Mario Perez on 07-12-2023 Estimated GFR (CKD-EPI) > 60.0 mL/Min [facility] Creatinine Clearance (Chem N/A [facility] Potassium [Moles/volume] in Serum or PlasmaOrdered By: Mario Perez on 07-12-2023 Potassium [Moles/Vol] 4.3 mmol/L 3.5-5.1 [facility] Protein [Mass/volume] in Ser um or PlasmaOrdered By: Mario Perez on 07-12-2023 Protein [Mass/Vol] 6.4 g/dL 6.4-8.9 [facility] Serum or plasma albumin/glob ulin mass ratioOrdered By: Mario Perez on 07-12-2023 Albumin/Globulin [Mass ratio] 1.9 {ratio} [facility] Serum or plasma anion gap de terminationOrdered By: Mario Perez on 07-12-2023 Anion gap [Moles/Vol] 8.6 mmol/L 6.0-15.0 [facility] Serum or plasma high density lipoprotein (HDL) cholesterol measurementOrdered By: Mario Perez on 07-12-2023 Cholesterol in HDL [Mass/Vol] 63 mg/dL 23-92 [facility] Comment on above: HDL CHOL ATP-III CLA SSIFICATION Cardiovascular RiskHDL > or equal to 60 mg/dL LOWHDL < 40 mg/dL HIGH Serum or plasma total choles terol/high density lipoprotein (HDL) cholesterol mass ratOrdered By: Mario Perez on 07-12-2023 Cholesterol.total/Chol esterol in HDL [Mass ratio] 3.1 {ratio} <5.0 [facility] Sodium [Moles/volume] in Ser um or PlasmaOrdered By: Mario Perez on 07-12-2023 Sodium [Moles/Vol] 139 mmol/L 136-145 [facility] Triglyceride [Mass/volume] i n Serum or PlasmaOrdered By: Mario Perez on 07-12-2023 Triglyceride [Mass/Vol] 61 mg/dL 0-149 [facility] Comment on above: TRIG ATP III CLASSIF ICATIONTRIG less than 150 mg/dL NormalTRIG 150-199 mg/dL Borderline highTRIG 200-500 mg/dL High TRIG greater than 500 mg/dL Very highStandard traceable to the Center for Disease Conrtrol and Prevention (CDC) test method. Urea nitrogen [Mass/volume] in Serum or PlasmaOrdered By: Mario Perez on 07-12-2023 Urea nitrogen [Mass/Vol] 13 mg/dL 05-11 [facility] Human papilloma virus 16+18+ 31+33+35+39+45+51+52+56+58+59+66+68 DNA [Presence] in CerOrdered By: MARISSA GARCIA on 12-15-2022 HPV 16+18+31+33+35+39+45+5 1+52+56+58+59+66+68 DNA Probe+sig amp Ql (Cvx) Negative Negative [facility] Comment on above: This nucleic acid am plification test detects fourteen high- risk HPV types (16,18,31,33,35,39,45,51,52,56,58,59,66,68)without differentiation.Performed at: - [facility] [id number] Director: Azalea Quezada MD, Phone: [phone] at: = - [facility] [address] [id number] Director: Azalea Quezada MD, Phone: [phone] No Panel InformationOrdered By: MARISSA GARCIA on 12-15-2022 IG Pap w/Ct-Ng & HPV Rflx (Off-Site Note . [facility] Comment on above: TESTS RESULT FLAG UN ITS REF RANGE LAB Clinician Provided Cytology Information No. of containers..01 ThinPrep VialDIAGNOSIS: 01 NEGATIVE FOR INTRAEPITHELIAL LESION OR MALIGNANCY.Specimen adequacy: 01 Satisfactory for evaluation. Endocervical and/or squamous metaplastic cells (endocervical component) are present.Performed by: 01 Jose Manuel Radha, Inspector [employer] (ASCP). 01Note: Note 01 The Pap smear [...] <-Panic Low,>-Panic High,A-Abnormal,AA-Critical Abnormal -----Performed at:[address] [facility] [id number] Azalea Quezada MD, Albumin [Mass/volume] in Ser um or PlasmaOrdered By: Marianela Oliva on 06-26-2022 Albumin [Mass/Vol] 3.8 g/dL 3.2-5.5 [facility] Basophils Auto (Bld) [#/Vol] Ordered By: Marianela Oliva on 06-26-2022 Basophils (Bld) [#/Vol] 0.0 10*3/uL 0.0-0.2 [facility] Basophils/100 WBC Auto (Bld) Ordered By: Marianela Oliva on 06-26-2022 Basophils/100 WBC (Bld) 0.7 % . [facility] Cholesterol [Mass/volume] in Serum or PlasmaOrdered By: Marianela Oliva on 06-26-2022 Cholesterol [Mass/Vol] 177 mg/dL 140-200 [facility] Comment on above: Chol less than 200 m g/dl low riskChol 201-239 mg/dl borderline riskChol 240 mg/dl and greater high risk Cholesterol in LDL Calc [Mas s/Vol]Ordered By: Marianela Oliva on 06-26-2022 Cholesterol in LDL [Mass/Vol] 118 mg/dL 0-100 [facility] Comment on above: LDL ATP III CLASSIFI CATIONLDL less than 100 mg/dL OptimalLDL 100-129 mg/dL Near or above optimalLDL 130-159 mg/dL Borderline highLDL 160-189 mg/dL HighLDL greater than 189 mg/dL Very high Cholesterol in VLDL Calc [Ma ss/Vol]Ordered By: Marianela Oliva on 06-26-2022 Cholesterol in VLDL [Mass/Vol] 10 mg/dL [facility] Creatinine and Glomerular fi ltration rate.predicted panel (S/P/Bld)Ordered By: Marianela Oliva on 06-26-2022 Creatinine [Mass/Vol] 0.77 mg/dL 0.44-1.03 [facility] Eosinophils Auto (Bld) [#/Vo l]Ordered By: Marianela Oliva on 06-26-2022 Eosinophils (Bld) [#/Vol] 0.2 10*3/uL 0.0-0.45 [facility] Eosinophils/100 WBC Auto (Bl d)Ordered By: Marianela Oliva on 06-26-2022 Eosinophils/100 WBC (Bld) 4.1 % . [facility] Erythrocyte distribution wid th Auto (RBC) [Ratio]Ordered By: Marianela Oliva on 06-26-2022 Erythrocyte distribution width (RBC) [Ratio] 13.1 % 11.9-15.3 [facility] Estimated glomerular filtrat ion rate (GFR) non- AmericanOrdered By: Marianela Oliva on 06-26-2022 GFR/1.73 sq M.predicted among non-blacks MDRD (S/P/Bld) [Vol rate/Area] > 60 mL/Min [facility] Globulin Calc (S) [Mass/Vol] Ordered By: Marianela Oliva on 06-26-2022 Globulin (S) [Mass/Vol] 2.3 g/dL [facility] Hematocrit Auto (Bld) [Volum e fraction]Ordered By: Marianela Oliva on 06-26-2022 Hematocrit (Bld) [Volume fraction] 38.9 % 34.0-46.4 [facility] Hemoglobin [Mass/volume] in BloodOrdered By: Marianela Oliva on 06-26-2022 Hemoglobin (Bld) [Mass/Vol] 13.1 g/dL 11.8-15.4 [facility] Laboratory - Chemistry and C hemistry - challengeOrdered By: Marianela Oliva on 06-26-2022 Glucose [Mass/Vol] 98 mg/dL 70-100 [facility] - Hematology and Cell countsOrdered By: Marianela Oliva on 06-26-2022 Nucleated RBC/100 WBC (Bld) [Ratio] 0.0 % 0-0.5 [facility] Leukocytes [#/volume] in Blo od by Automated countOrdered By: Marianela Oliva on 06-26-2022 WBC (Bld) [#/Vol] 4.3 10*3/uL 4.5-11.0 [facility] Lymphocytes Auto (Bld) [#/Vo l]Ordered By: Marianela Oliva on 06-26-2022 Lymphocytes (Bld) [#/Vol] 1.5 10*3/uL 1.00-4.8 [facility] Lymphocytes/100 WBC Auto (Bl d)Ordered By: Marianela Oliva on 06-26-2022 Lymphocytes/100 WBC (Bld) 35.2 % . [facility] MCH Auto (RBC) [Entitic mass ]Ordered By: Marianela Oliva on 06-26-2022 MCH (RBC) [Entitic mass] 27.3 pg 24.7-34.3 [facility] MCHC Auto (RBC) [Mass/Vol]Or dered By: Marianela Oliva on 06-26-2022 MCHC (RBC) [Mass/Vol] 33.7 g/dL 32.0-35.0 [facility] MCV Auto (RBC) [Entitic vol] Ordered By: Marianela Oliva on 06-26-2022 MCV (RBC) [Entitic vol] 81.1 fL 80-100 [facility] Monocyte %Ordered By: Marianela Oliva on 06-26-2022 Monocyte % 52 mg/dL 35-149 [facility] Comment on above: TRIG ATP III CLASSIF ICATIONTRIG less than 150 mg/dL NormalTRIG 150-199 mg/dL Borderline highTRIG 200-500 mg/dL High TRIG greater than 500 mg/dL Very highStandard traceable to the Center for Disease Conrtrol and Prevention (CDC) test method. Monocytes Auto (Bld) [#/Vol] Ordered By: Marianela Oliva on 06-26-2022 Monocytes (Bld) [#/Vol] 0.5 10*3/uL 0.0-0.8 [facility] Monocytes/100 WBC Auto (Bld) Ordered By: Marianela Oliva on 06-26-2022 Monocytes/100 WBC (Bld) 11.0 % . [facility] Neutrophils Auto (Bld) [#/Vo l]Ordered By: Marianela Oliva on 06-26-2022 Neutrophils (Bld) [#/Vol] 2.1 10*3/uL 1.8-7.7 [facility] Neutrophils/100 WBC Auto (Bl d)Ordered By: Marianela Oliva on 06-26-2022 Neutrophils/100 WBC (Bld) 49.0 % . [facility] No Panel InformationOrdered By: Marianela Oliva on 06-26-2022 Estimated GFR () > 60 mL/Min [facility] Comment on above: GFR estimated refere nce range: According to KDOQI guidelines, <60 ml/min/1.73m2 is sufficient to diagnose a patient with chronic kidney disease. Nicotine Metabolite Negative Cutoff=25 [facility] Comment on above: Performed at: [address] [id number] Director: George García MD, Phone: [phone] Pharmacy Creatinine Clearance (Chem N/A [facility] Platelet mean volume Auto (B ld) [Entitic vol]Ordered By: Marianela Oliva on 06-26-2022 Platelet mean volume (Bld) [Entitic vol] 9.7 fL 6.3-10.7 [facility] Platelets Auto (Bld) [#/Vol] Ordered By: Marianela Oliva on 06-26-2022 Platelets (Bld) [#/Vol] 191 10*3/uL 150-450 [facility] Protein [Mass/volume] in Ser um or PlasmaOrdered By: Marianela Oliva on 06-26-2022 Protein [Mass/Vol] 6.1 g/dL 6.1-7.9 [facility] RBC Auto (Bld) [#/Vol]Ordere d By: Marianela Oliav on 06-26-2022 RBC (Bld) [#/Vol] 4.80 10*6/uL 3.60-5.00 [facility] Serum or plasma alanine carvalho otransferase measurement without P-5'-P (enzymatic activiOrdered By: Marianela Oliva on 06-26-2022 ALT No additional P-5'-P [Catalytic activity/Vol] 17 U/L 10-60 [facility] Serum or plasma albumin/glob ulin mass ratioOrdered By: Marianela Oliva on 06-26-2022 Albumin/Globulin [Mass ratio] 1.7 {ratio} [facility] Serum or plasma alkaline rad sphatase measurement (enzymatic activity/volume)Ordered By: Marianela Oliva on 06-26-2022 ALP [Catalytic activity/Vol] 46 U/L 32-92 [facility] Serum or plasma anion gap de terminationOrdered By: Marianela Oliva on 06-26-2022 Anion gap [Moles/Vol] 8.1 mmol/L 6.0-15.0 [facility] Serum or plasma aspartate am inotransferase measurement (enzymatic activity/volume)Ordered By: Marianela Oliva on 06-26-2022 AST [Catalytic activity/Vol] 18 U/L 10-42 [facility] Serum or plasma calcium richy urement (mass/volume)Ordered By: Marianela Oliva on 06-26-2022 Calcium [Mass/Vol] 9.0 mg/dL 8.2-10.2 [facility] Serum or plasma chloride alma surement (moles/volume)Ordered By: Marianela Oliva on 06-26-2022 Chloride [Moles/Vol] 106 mmol/L 95-114 [facility] Serum or plasma high density lipoprotein (HDL) cholesterol measurementOrdered By: Marianela Oliva on 06-26-2022 Cholesterol in HDL [Mass/Vol] 49 mg/dL 35-85 [facility] Comment on above: HDL CHOL ATP-III CLA SSIFICATION Cardiovascular RiskHDL > or equal to 60 mg/dL LOWHDL < 40 mg/dL HIGH Serum or plasma potassium me asurement (moles/volume)Ordered By: Marianela Oliva on 06-26-2022 Potassium [Moles/Vol] 4.1 mmol/L 3.5-5.1 [facility] Serum or plasma sodium measu rement (moles/volume)Ordered By: Marianela Oliva on 06-26-2022 Sodium [Moles/Vol] 137 mmol/L 136-146 [facility] Serum or plasma total biliru bin measurement (mass/volume)Ordered By: Marianela Oliva on 06-26-2022 Bilirubin [Mass/Vol] 0.6 mg/dL 0.3-1.2 [facility] Serum or plasma total carbon dioxide measurement (moles/volume)Ordered By: Marianela Oliva on 06-26-2022 CO2 [Moles/Vol] 27.0 mmol/L 22.0-30.0 [facility] Serum or plasma total choles terol/high density lipoprotein (HDL) cholesterol mass ratOrdered By: Marianela Oliva on 06-26-2022 Cholesterol.total/Chol esterol in HDL [Mass ratio] 3.6 {ratio} <5.0 [facility] Serum or plasma urea nitroge n measurement (mass/volume)Ordered By: Marianela Oliva on 06-26-2022 Urea nitrogen [Mass/Vol] 14 mg/dL 9- [facility] TSH DL <= 0.005 mIU/L QnOrde red By: Marianela Oliva on 06-26-2022 TSH Qn 1.33 m[IU]/L 0.45-5.33 [facility] Dipstick [employer] Microscopicon Dipstick & Microscopic No rt [employer] Other Urine 10 SGon 01-07-2022 Albumin DL <= 20 mg/L (U) [Mass/Vol] 100 mg/dL [employer] Other Albumin DL <= 20 mg/L (U) [Mass/Vol] Large [employer] Other pH (U) 6.0 [pH] [employer] Other Urine 10 SG Negative [employer] Other Urine 10 SG 1.030 [employer] Other Urine 10 SG Large [employer] Other Urine 10 SG 0.2 [employer] Other Urine 10 SG Positive [employer] Other Urine Cultureon 01-07-2022 Urine Culture >100,000 [employer] Other Urine Culture <16 Susceptible [employer] Other Urine Culture <8 Susceptible [employer] Other Urine Culture <4 Susceptible [employer] Other Urine Culture <2 Susceptible [employer] Other Urine Culture <1 Susceptible [employer] Other Urine Culture <0.5 Susceptible [employer] Other Urine Culture <32 Susceptible [employer] Other Urine Culture <2/38 Susceptible [employer] Other Cult,Urine,CCon 12-24-2018 Cult,Urine,CC Specimen Description .URINE Special Requests .CLEAN CATCH URINE Culture NO GROWTH Report Status FINAL 12/24/2018 Normal [facility] Comment on above: Performed By: #### C PDAU #### [facility] [address] [place] [address] Chlamydia/GC DNA, Uron 12-23 Protein mass conc Negative Normal NEG [facility] Comment on above: Result Comment: NEIS [...] target. Performed By: #### C PDAU #### [address] [place] [address] Result Comment: CHLA MYDIA TRACHOMATIS DNA not [...] HIV Ag/Abon 12-23-2018 HIV Ag/Ab NONREACTIVE Normal [facility] Comment on above: Result Comment: No l aboratory evidence of HIV infection. If acute HIV infection is suspected, consider testing for HIV-1 RNA. Performed By: #### C PDAU #### [address] [place] [address] Hep C Abon 12-23-2018 Hep C Ab NONREACTIVE Normal [facility] Comment on above: Result Comment: [...] PCR. Performed By: #### C PDAU #### [address] [place] [address] Profileon 9 T.pallidum Ab Screen NONREACTIVE Normal [facility] Comment on above: Result Comment: T. pallidum antibodies are not detected. There is no serological evidence of infection with T. pallidum (early primary syphilis cannot be excluded). Retest in 2-4 weeks if syphilis is clinically suspect. Performed By: #### C PDAU #### [address] [place] [address] Hep B Surf Ag NONREACTIVE Normal [facility] Comment on above: Performed By: #### C PDAU #### [address] [place] [address] Rubella Ab, IgG 52.3 IU/mL Normal [facility] Comment on above: Result Comment: REFERENCE RANGE: <5.0 NON-REACTIVE (non-immune) 5.0 TO 9.9 EQUIVOCAL >=10.0 REACTIVE (immune) Performed By: #### C PDAU #### [address] [place] [address] Profileon 9 Abs. Basophil <0.03 Normal 0.00-0.20 [facility] Comment on above: Performed By: #### C PDAU #### [address] [place] [address] Abs.Imm.Granulocyte 0.04 k/uL Normal 0.00-0.30 [facility] Comment on above: Performed By: #### C PDAU #### [address] [place] [address] Abs.Neutrophil (Seg) 4.44 k/uL Normal 1.50-8.10 [facility] Comment on above: Performed By: #### C PDAU #### [address] [place] [address] Basophils/100 WBC (Bld) 0 % Normal 0-2 [facility] Comment on above: Performed By: #### C PDAU #### [address] [place] [address] Eosinophils #/vol (Bld) 0.08 10*3/uL Normal 0.00-0.44 [facility] Comment on above: Performed By: #### C PDAU #### [address] [place] [address] Eosinophils/100 WBC (Bld) 1 % Normal 1-4 [facility] Comment on above: Performed By: #### C PDAU #### [address] [place] [address] Erythrocyte distribution width Ratio (RBC) 13.2 % Normal 11.8-14.4 [facility] Comment on above: Performed By: #### C PDAU #### [address] [place] [address] Hematocrit Volume Fraction (Bld) 35.3 % Low 36.3-47.1 [facility] Comment on above: Performed By: #### C PDAU #### [address] [place] [address] Hemoglobin mass conc (Bld) 11.4 g/dL Low 11.9-15.1 [facility] Comment on above: Performed By: #### C PDAU #### [address] [place] [address] Immature granulocytes #/vol (Bld) 1 % High 0 [facility] Comment on above: Performed By: #### C PDAU #### [address] [place] [address] Lymphocytes #/vol (Bld) 1.70 10*3/uL Normal 1.10-3.70 [facility] Comment on above: Performed By: #### C PDAU #### [address] [place] [address] Lymphocytes/100 WBC (Bld) 25 % Normal 24-43 [facility] Comment on above: Performed By: #### C PDAU #### [address] [place] [address] MCH Entitic mass (RBC) 26.5 pg Normal 25.2-33.5 [facility] Comment on above: Performed By: #### C PDAU #### [address] [place] [address] MCHC mass conc (RBC) 32.3 g/dL Normal 28.4-34.8 [facility] Comment on above: Performed By: #### C PDAU #### [address] [place] [address] MCV Entitic volume (RBC) 82.1 fL Low 82.6-102.9 [facility] Comment on above: Performed By: #### C PDAU #### [address] [place] [address] Monocytes #/vol (Bld) 0.66 10*3/uL Normal 0.10-1.20 [facility] Comment on above: Performed By: #### C PDAU #### [address] [place] [address] Monocytes/100 WBC (Bld) 10 % Normal 3-12 [facility] Comment on above: Performed By: #### C PDAU #### [address] [place] [address] Neutrophil (Seg) 63 % Normal 36-65 [facility] Comment on above: Performed By: #### C PDAU #### [address] [place] [address] NRBC Automated 0.0 per 100 WBC Normal 0.0 [facility] Comment on above: Performed By: #### C PDAU #### [address] [place] [address] Platelet mean volume Entitic volume (Bld) 10.8 fL Normal 8.1-13.5 [facility] Comment on above: Performed By: #### C PDAU #### [address] [place] [address] Platelets #/vol (Bld) 298 10*3/uL Normal 138-453 [facility] Comment on above: Performed By: #### C PDAU #### [address] [place] [address] RBC #/vol (Bld) 4.30 10*6/uL Normal 3.95-5.11 [facility] Comment on above: Performed By: #### C PDAU #### [address] [place] [address] WBC #/vol (Bld) 6.9 10*3/uL Normal 3.5-11.3 [facility] Comment on above: Performed By: #### C PDAU #### [address] [place] [address] Auto Diff Performed NOT REPORTED Normal [facility] Comment on above: Performed By: #### C PDAU #### [address] [place] [address] Platelets #/vol (Bld) NOT REPORTED Normal [facility] Comment on above: Performed By: #### C PDAU #### [address] [place] [address] RBC morphology finding Nom (Bld) NOT REPORTED Normal [facility] Comment on above: Performed By: #### C PDAU #### [address] [place] [address] WBC Morphology NOT REPORTED Normal [facility] Comment on above: Performed By: #### C PDAU #### [address] [place] [address] Type + Scrnon 12-22 Type + Scrn Negative Normal [facility] Comment on above: Performed By: #### C PDAU #### [address] [place] [address] Toxicology Scree, Urineon Amphetamine(s),Ur Negative Normal NE[facility] Comment on above: Performed By: #### C PDAU #### [address] [place] [address] Barbiturate(s),Ur Negative Normal [facility] Comment on above: Performed By: #### C PDAU #### [address] [place] [address] Benzodiazepine(s) Negative Normal [facility] Comment on above: Performed By: #### C PDAU #### [address] [place] [address] Buprenorphrine, Ur Negative Normal NEG [facility] Comment on above: Performed By: #### C PDAU #### [address] [place] [address] Cannabinoid(s),Ur Negative Normal [facility] Comment on above: Performed By: #### C PDAU #### [address] [place] [address] Cocaine Metabolite Negative Normal [facility] Comment on above: Performed By: #### C PDAU #### [address] [place] [address] Methadone Ql (U) Negative Normal [facility] Comment on above: Performed By: #### C PDAU #### [address] [place] [address] Methamphetamine, Ur Negative Normal NEG [facility] Comment on above: Performed By: #### C PDAU #### [address] [place] [address] Opiate(s), Ur Negative Normal NEG [facility] Comment on above: Performed By: #### C PDAU #### [address] [place] [address] Oxycodone, Urine Negative Normal NEG [facility] Comment on above: Performed By: #### C PDAU #### [address] [place] [address] Phencyclidine, Ur Negative Normal [facility] Comment on above: Performed By: #### C PDAU #### [address] [place] [address] Protein mass conc (U) Negative Normal NEG [facility] Comment on above: Performed By: #### C PDAU #### [address] [place] [address] Tricyclic antidepressants Screen Ql (U) Negative Normal NEG [facility] Comment on above: Result Comment: Drug screen results are to be used for medical purposes only. All positive results are unconfirmed. Testing for employment or legal uses should be sent to a reference laboratory for confirmation. Performed By: #### C PDAU #### [address] [place] [address] Interpretive Info NOT REPORTED Normal [facility] Comment on above: Performed By: #### C PDAU #### [address] [place] [address] MDMA, Urine NOT REPORTED Normal NEG [facility] Comment on above: Performed By: #### C PDAU #### [address] [place] [address] Coding Summary.on 12-11-2018 Coding Summary. CODING DATE: 019 FINAL [facility] STATUS: Home (Routine DC) PAYOR: Commercial [...] result in slightly different terminology. Coded By: Pedrito TempleSharon Date Saved: 12/11/2018 09:36 am Normal [facility] US 1st Trimesteron 12-09-2018 1st Trimester Exam [...] Transvaginal Ultrasound Performed Size = Dates Normal [facility] US Transvaginalon 12-09-2018 US Transvaginal Exam Date/Time: 12/09/2018 15:15 EST Reason for Exam: nausea hx of molar Report Please refer to ultrasound transabdominal first trimester report. FINAL REPORT Dictated: 12/09/2018 3:50 pm Aurelia Mullen MD Signed (Electronic Signature): 12/09/2018 3:50 pm Signed by: Aurelia Mullen MD Transcribed by: DARWIN Technologist: ADARSH Normal [facility] Progress Noteon 03-24-2018 HIM IP Note OR Filler Block Inserter Remover Normal [facility] HCG, Quanton 03-22-2018 HCG, Quant 64 IU/L High <5 [facility] Comment on above: Result Comment: Non-preg premeno <=5 Postmeno <=8 Male <=3 If HCG results do not concur with clinical observations, additional testing to confirm result is recommended. This test is not labeled for use as a tumor marker. Performed at [address] [place] [address] ([phone] Performed By: #### C PDAU #### [address] [place] [address] HCG, Quanton 03-15-2018 HCG, Quant 613 IU/L High <5 [facility] Comment on above: Result Comment: Non-preg premeno <=5 Postmeno <=8 Male <=3 If HCG results do not concur with clinical observations, additional testing to confirm result is recommended. This test is not labeled for use as a tumor marker. Performed at [address] [place] [address] ([phone] Performed By: #### C PDAU #### [address] [place] [address] OPERATIVE REPORTon 8 OPERATIVE REPORT [address] [address] OPERATIVE REPORT PATIENT NAME: NORIS GOETZ : 1990 MED REC NO: [id number] ROOM: ACCOUNT NO: [id number] ADMIT DATE: 03/09/2018 PROVIDER: Chau Sorenson DATE [...] be correct. Of note, she will receive Fortescue 5/325 for any postoperative cramping, and I have ordered an hCG to be repeated in approximately one week. CHAU SORENSON WH/Janak_WOSDB_I Doc#: [id number] CC: Marianela Oliva [facility] Surgical Pathologyon 018 Surgical Pathology (NOTE) [id number] [facility] ANATOMIC PATHOLOGY [address] [place] [address]. [place], [place] [address] SURGICAL PATHOLOGY CONSULTATION Patient Name: NORIS GOETZ Rec: [id number] Path Number: [id number] Collected: 03/09/2018 Received: 03/10/2018 Reported: 03/11/2018 14:53 [...] grossly identified. Cystic structures are not evident. Cylinder Filler sections are submitted between sponges in A-H. tm Microscopic Description Most of the submitted tissue consists of blood clot and decidua with foci of necrosis and acute inflammation. Portions of endometrium show gestational change. There are rare immature, small avascular placental villi and a few associated syncytiotrophoblasts. Histologic changes to suggest gestational trophoblastic disease are absent. Normal [facility] Progress Noteon 03-08-2018 HIM IP Note OR Filler Block Inserter Remover Normal [facility] Chlamydia/GC DNA, Uron 03-07 Protein mass conc Negative Normal [facility] Comment on above: Result Comment: NEIS SERIA GONORRHOEAE DNA not detected by nucleic acid amplification. Performed at [address] [address] ([phone] Performed By: #### U [facility] #### [address] [id number] Result Comment: CHLA MYDIA TRACHOMATIS DNA not detected by nucleic acid amplification. HCG, Quanton 03-07-2018 HCG, Quant 70678 IU/L High <5 [facility] Comment on above: Result Comment: Non-preg premeno <=5 Postmeno <=8 Male <=3 If HCG results do not concur with clinical observations, additional testing to confirm result is recommended. This test is not labeled for use as a tumor marker. Performed at [address] [place] [address] Performed By: #### B HCG #### [address] [place] [address] RHIG, Transfuseon 03-07-2018 RHIG, Transfuse Unit Number [id number] /45 Blood Component Type RHIG Unit Division 00 Status of Unit TRANSFUSED Transfusion Status OK TO TRANSFUSE Performed at [address] [place] [address] Normal [facility] Comment on above: Performed By: #### T RHIG #### [address] [place] [address] Cult,Urine,CCon 03-05-2018 Cult,Urine,CC Specimen Description .URINE Performed at [address] [place] [address] Special Requests CCMS Performed at [address] [place] [address] Culture NO SIGNIFICANT GROWTH Performed at [address] [address] Report Status FINAL 03/04/2018 Normal [facility] Comment on above: Performed By: #### C INNA #### [address] [place] [address] HIV Ag/Abon 03-04-2018 HIV Ag/Ab NONREACTIVE Normal NR [facility] Comment on above: Result Comment: No l aboratory evidence of HIV infection. If acute HIV infection is suspected, consider testing for HIV-1 RNA. Performed at [address] [address] Performed By: #### H IVCMB #### [address] [place] [address] Hep C Abon 03-04-2018 Hep C Ab NONREACTIVE Normal NR [facility] Comment on above: Result Comment: The hepatitis [...] ordering HCV RNA by PCR. Performed at [address] [address] Performed By: #### A HCV #### [address] [address] Profileon 8 T.pallidum Ab Screen NONREACTIVE Normal [facility] Comment on above: Result Comment: T. pallidum antibodies are not detected. There is no serological evidence of infection with T. pallidum (early primary syphilis cannot be excluded). Retest in 2-4 weeks if syphilis is clinically suspect. Performed at [address] [address] Performed By: #### P RENAT #### [address] [address] Hep B Surf Ag NONREACTIVE Normal [facility] Comment on above: Performed By: #### P RENAT #### [address] [address] Rubella Ab, IgG 65.7 IU/mL Normal [facility] Comment on above: Result Comment: REFERENCE RANGE: <5.0 NON-REACTIVE (non-immune) 5.0 TO 9.9 EQUIVOCAL >=10.0 REACTIVE (immune) Performed By: #### P RENAT #### [address] [address] Toxicology Scree, Urineon Amphetamine(s),Ur Negative Normal [facility] Comment on above: Performed By: #### C PDAU #### [address] [place] [address] Barbiturate(s),Ur Negative Normal [facility] Comment on above: Performed By: #### C PDAU #### [address] [place] [address] Benzodiazepine(s) Negative Normal [facility] Comment on above: Performed By: #### C PDAU #### [address] [place] [address] Buprenorphrine, Ur Negative Normal NEG [facility] Comment on above: Result Comment: Perf ormed at [address] [place] [address] Performed By: #### C PDAU #### [address] [place] [address] Cannabinoid(s),Ur Negative Normal [facility] Comment on above: Performed By: #### C PDAU #### [address] [place] [address] Cocaine Metabolite Negative Normal [facility] Comment on above: Performed By: #### C PDAU #### [address] [place] [address] Methadone Ql (U) Negative Normal NEG [facility] Comment on above: Performed By: #### C PDAU #### [address] [place] [address] Methamphetamine, Ur Negative Normal NEG [facility] Comment on above: Performed By: #### C PDAU #### [address] [place] [address] Opiate(s), Ur Negative Normal NEG [facility] Comment on above: Performed By: #### C PDAU #### [address] [place] [address] Oxycodone, Urine Negative Normal NEG [facility] Comment on above: Performed By: #### C PDAU #### [address] [place] [address] Phencyclidine, Ur Negative Normal [facility] Comment on above: Performed By: #### C PDAU #### [address] [place] [address] Protein mass conc (U) Negative Normal NEG [facility] Comment on above: Performed By: #### C PDAU #### [address] [place] [address] Tricyclic antidepressants Screen Ql (U) Negative Normal NEG [facility] Comment on above: Result Comment: Drug screen results are to be used for medical purposes only. All positive results are unconfirmed. Testing for employment or legal uses should be sent to a reference laboratory for confirmation. Performed By: #### C PDAU #### [address] [place] [address] Profileon 8 Abs. Basophil 0.05 k/uL Normal 0.00-0.20 [facility] Comment on above: Performed By: #### P RENAT #### [address] [address] Abs.Imm.Granulocyte 0.04 k/uL Normal 0.00-0.30 [facility] Comment on above: Performed By: #### P RENAT #### [address] [place] [address] Abs.Neutrophil (Seg) 5.60 k/uL Normal 1.50-8.10 [facility] Comment on above: Performed By: #### P RENAT #### [address] [address] Basophils/100 WBC (Bld) 1 % Normal 0-2 [facility] Comment on above: Performed By: #### P RENAT #### [address] [address] Eosinophils #/vol (Bld) 0.18 10*3/uL Normal 0.00-0.44 [facility] Comment on above: Performed By: #### P RENAT #### [address] [address] Eosinophils/100 WBC (Bld) 2 % Normal 1-4 [facility] Comment on above: Performed By: #### P RENAT #### [address] [address] Erythrocyte distribution width Ratio (RBC) 13.0 % Normal 11.8-14.4 [facility] Comment on above: Performed By: #### P RENAT #### [address] [address] Hematocrit Volume Fraction (Bld) 39.1 % Normal 36.3-47.1 [facility] Comment on above: Performed By: #### P RENAT #### [address] [address] Hemoglobin mass conc (Bld) 12.6 g/dL Normal 11.9-15.1 [facility] Comment on above: Performed By: #### P RENAT #### [address] [address] Immature granulocytes #/vol (Bld) 1 % High 0 [facility] Comment on above: Performed By: #### P RENAT #### [address] [address] Lymphocytes #/vol (Bld) 2.18 10*3/uL Normal 1.10-3.70 [facility] Comment on above: Performed By: #### P RENAT #### [facility] [employer] [address] [place] [address] Lymphocytes/100 WBC (Bld) 25 % Normal 24-43 [facility] Comment on above: Performed By: #### P RENAT #### [address] [address] MCH Entitic mass (RBC) 26.9 pg Normal 25.2-33.5 [facility] Comment on above: Performed By: #### P RENAT #### [address] [address] MCHC mass conc (RBC) 32.2 g/dL Normal 28.4-34.8 [facility] Comment on above: Performed By: #### P RENAT #### [address] [address] MCV Entitic volume (RBC) 83.4 fL Normal 82.6-102.9 [facility] Comment on above: Performed By: #### P RENAT #### [address] [address] Monocytes #/vol (Bld) 0.79 10*3/uL Normal 0.10-1.20 [facility] Comment on above: Performed By: #### P RENAT #### [address] [address] Monocytes/100 WBC (Bld) 9 % Normal 3-12 [facility] Comment on above: Performed By: #### P RENAT #### [address] [address] Neutrophil (Seg) 62 % Normal 36-65 [facility] Comment on above: Performed By: #### P RENAT #### [address] [address] NRBC Automated 0.0 per 100 WBC Normal 0.0 [facility] Comment on above: Performed By: #### P RENAT #### [address] [address] Platelet mean volume Entitic volume (Bld) 11.2 fL Normal 8.1-13.5 [facility] Comment on above: Performed By: #### P RENAT #### [address] [address] Platelets #/vol (Bld) 243 10*3/uL Normal 138-453 [facility] Comment on above: Performed By: #### P RENAT #### [address] [address] RBC #/vol (Bld) 4.69 10*6/uL Normal 3.95-5.11 [facility] Comment on above: Performed By: #### P RENAT #### [address] [address] WBC #/vol (Bld) 8.8 10*3/uL Normal 3.5-11.3 [facility] Comment on above: Performed By: #### P RENAT #### [address] [address] Auto Diff Performed NOT REPORTED Normal [facility] Comment on above: Performed By: #### P RENAT #### [address] [address] Platelets #/vol (Bld) NOT REPORTED Normal [facility] Comment on above: Performed By: #### P RENAT #### [address] [address] RBC morphology finding Nom (Bld) NOT REPORTED Normal [facility] Comment on above: Performed By: #### P RENAT #### [address] [address] WBC Morphology NOT REPORTED Normal [facility] Comment on above: Performed By: #### P RENAT #### [address] [address] Type + Scrnon 03-03 Type + Scrn ABO/Rh(D) B NEGATIV E Antibody Screen NEGATIVE Performed at [address] [place], [place] [id number] ([phone] Normal [facility] Comment on above: Performed By: #### P RTYS #### [address] [place], [place] [address] Progress Noteon 03-03-2018 HIM IP Note OR Filler Block Inserter Remover Normal [facility] Toxicology Scree, Urineon Interpretive Info NOT REPORTED Normal [facility] Comment on above: Performed By: #### C PDAU #### [address] [place], [place] [id number] MDMA, Urine NOT REPORTED Normal NEG [facility] Comment on above: Performed By: #### C PDAU #### [address] [place] [address] Hep Bs Abon 01-22-2018 HBV surface Ab Ql (S) Reactive Fis [facility] Comment on above: Result Comment: Non Reactive: Inconsistent with immunity, less than 10 mIU/mL Reactive: Consistent with immunity, greater than 9.9 mIU/mL Performed at: [id number] [id number] PhD Sumeet Merrill Performed By: #### 2 [id number], [id number] #### [facility] [address] [place] [address] Varic IgGon 01-22-2018 VZV IgG IA Qn (S) 574 Immune >165 [facility] Comment on above: Result Comment: Nega tive <135 Equivocal 135 - 165 Positive >165 A positive result generally indicates exposure to the pathogen or administration of specific immunoglobulins, but it is not indication of active infection or stage of disease. Performed at: [facility] [id number] PhD Sumeet Merrill Performed By: #### 2 [id number], [id number] #### [facility] [address] [place] [address] Progress Noteon 11-18-2017 HIM IP Note OR Filler Block Inserter Remover Normal [facility] Vital Signs Date Time Vital Sign Value Performing Clinician Facility 07-19-2025 09:34-0400 Body mass index (BMI) [Ratio] 35.88 kg/m2 Rock Mendez MANAGER PERIOPERATIVE Work Phone: [facility] 07-19-2025 09:34-0400 Body weight 107.05 kg Rock Mendez MANAGER PERIOPERATIVE Work Phone: [facility] 07-19-2025 09:34-0400 Diastolic blood pressure 82 mm[Hg] Rock Mendez MANAGER PERIOPERATIVE Work Phone: [facility] 07-19-2025 09:34-0400 Systolic blood pressure 140 mm[Hg] Rock Mendez MANAGER PERIOPERATIVE Work Phone: [facility] 07-05-2025 09:48-0400 Body mass index (BMI) [Ratio] 35.55 kg/m2 Yasmani Kaylen DO Work Phone: [facility] 07-05-2025 09:48-0400 Body weight 106.05 kg Yasmani Kaylen DO Work Phone: [facility] 07-05-2025 09:48-0400 Diastolic blood pressure 78 mm[Hg] Yasmani Kaylen DO Work Phone: [facility] 07-05-2025 09:48-0400 Systolic blood pressure 110 mm[Hg] Yasmani Kaylen DO Work Phone: [facility] 06-21-2025 09:54-0400 Body mass index (BMI) [Ratio] 35.12 kg/m2 Yasmani Kaylen DO Work Phone: [facility] 06-21-2025 09:54-0400 Body weight 104.78 kg Yasmani Kaylen DO Work Phone: [facility] 06-21-2025 09:54-0400 Diastolic blood pressure 72 mm[Hg] Yasmani Kaylen DO Work Phone: [facility] 06-21-2025 09:54-0400 Systolic blood pressure 124 mm[Hg] Yasmani Kaylen DO Work Phone: [facility] [facility] 06-12-2025 08:32-0400 Body height 170.18 cm Marianela Oliva MD Work Phone: [facility] 06-12-2025 08:32-0400 Body mass index (BMI) [Ratio] 36.1 kg/m2 Marianela Oliva MD Work Phone: [facility] 06-12-2025 08:32-0400 Body weight 104.77 kg Marianela Oliva MD Work Phone: [facility] 06-12-2025 08:32-0400 Diastolic blood pressure 81 mm[Hg] Marianela Oliva MD Work Phone: [facility] 06-12-2025 08:32-0400 Heart rate 88 /min Marianela Oliva MD Work Phone: [facility] 06-12-2025 08:32-0400 Respiratory rate 12 /min Marianela Oliva MD Work Phone: [facility] 06-12-2025 08:32-0400 SaO2% (BldA) [Mass fraction] 97 % Marianela Oliva MD Work Phone: [facility] 06-12-2025 08:32-0400 Systolic blood pressure 119 mm[Hg] Marianela Oliva MD Work Phone: [facility] 06-07-2025 10:26-0400 Body mass index (BMI) [Ratio] 35.14 kg/m2 Yasmani Kaylen DO Work Phone: [facility] 06-07-2025 10:26-0400 Body weight 104.83 kg Yasmani Kaylen DO Work Phone: [facility] 06-07-2025 10:26-0400 Diastolic blood pressure 70 mm[Hg] Yasmani Kaylen DO Work Phone: [facility] 06-07-2025 10:26-0400 Systolic blood pressure 112 mm[Hg] Yasmani Kaylen DO Work Phone: [facility] 05-22-2025 11:13-0400 Body mass index (BMI) [Ratio] 34.64 kg/m2 Yasmani Kaylen DO Work Phone: [facility] 05-22-2025 11:13-0400 Body weight 103.33 kg Yasmani Kaylen DO Work Phone: [facility] 05-22-2025 11:13-0400 Diastolic blood pressure 72 mm[Hg] Yasmani Kaylen DO Work Phone: [facility] 05-22-2025 11:13-0400 Systolic blood pressure 110 mm[Hg] Yasmani Kaylen DO Work Phone: [facility] 05-10-2025 08:31-0400 Body mass index (BMI) [Ratio] 34.25 kg/m2 Yasmani Kaylen DO Work Phone: [facility] 05-10-2025 08:31-0400 Body weight 102.17 kg Yasmani Kaylen DO Work Phone: [facility] 05-10-2025 08:31-0400 Diastolic blood pressure 78 mm[Hg] Yasmani Kaylen DO Work Phone: [facility] 05-10-2025 08:31-0400 Systolic blood pressure 124 mm[Hg] Yasmani Kaylen DO Work Phone: [facility] 04-10-2025 10:38-0400 Body mass index (BMI) [Ratio] 33.88 kg/m2 Yasmani Kaylen DO Work Phone: [facility] 04-10-2025 10:38-0400 Body weight 101.06 kg Yasmani Kaylen DO Work Phone: [facility] 04-10-2025 10:38-0400 Diastolic blood pressure 68 mm[Hg] Yasmani Kaylen DO Work Phone: [facility] 06-24-2025 10:38-0400 Systolic blood pressure 108 mm[Hg] Yasmani Kaylen DO Work Phone: [facility] 03-15-2025 10:00-0400 Body mass index (BMI) [Ratio] 33.27 kg/m2 Yasmani Kaylen DO Work Phone: [facility] 03-15-2025 10:00-0400 Body weight 99.25 kg Yasmani Kaylen DO Work Phone: [facility] 03-15-2025 10:00-0400 Diastolic blood pressure 70 mm[Hg] Yasmani Kaylen DO Work Phone: [facility] 03-15-2025 10:00-0400 Systolic blood pressure 110 mm[Hg] Yasmani Kaylen DO Work Phone: [facility] 02-15-2025 09:37-0400 Body mass index (BMI) [Ratio] 32.96 kg/m2 Yasmani Kaylen DO Work Phone: [facility] 02-15-2025 09:37-0400 Body weight 98.34 kg Yasmani Kaylen DO Work Phone: [facility] 02-15-2025 09:37-0400 Diastolic blood pressure 70 mm[Hg] Yasmani Kaylen DO Work Phone: [facility] 02-15-2025 09:37-0400 Systolic blood pressure 110 mm[Hg] Yasmani Kaylen DO Work Phone: [facility] 01-18-2025 09:45-0400 Body mass index (BMI) [Ratio] 32.1 kg/m2 Yasmani Kaylen DO Work Phone: [facility] 01-18-2025 09:45-0400 Body weight 95.77 kg Yasmani Kaylen DO Work Phone: [facility] 01-18-2025 09:45-0400 Diastolic blood pressure 80 mm[Hg] Yasmani Kaylen DO Work Phone: [facility] 01-18-2025 09:45-0400 Systolic blood pressure 100 mm[Hg] Yasmani Abdullahi DO Work Phone: [facility] 12-06-2024 09:47-0500 Heart rate 75 /min Marianela Oliva MD Work Phone: [facility] 12-06-2024 09:47-0500 Respiratory rate 16 /min Marianela Oliva MD Work Phone: [facility] 12-06-2024 07:53-0500 Body height 170.18 cm Marianela Oliva MD Work Phone: [facility] 12-06-2024 07:53-0500 Body temperature 98.2 [degF] Marianela Oliva MD Work Phone: [facility] 12-06-2024 07:53-0500 Body weight 90.71 kg Marianela Oliva MD Work Phone: [facility] 12-06-2024 07:53-0500 Diastolic blood pressure 60 mm[Hg] Marianela Oliva MD Work Phone: [facility] 12-06-2024 07:53-0500 SaO2% (BldA) [Mass fraction] 99 % Marianela Oliva MD Work Phone: [facility] 12-06-2024 07:53-0500 Systolic blood pressure 121 mm[Hg] Marianela Oliva MD Work Phone: [facility] 08-15-2024 09:05-0400 Body height 172.72 cm MD Marianela Oliva Work Phone: [facility] 08-15-2024 09:05-0400 Body mass index (BMI) [Ratio] 32.1 kg/m2 MD Marianela Oliva Work Phone: [facility] 08-15-2024 09:05-0400 Body weight 95.7 kg MD Marianela Oliva Work Phone: [facility] 08-15-2024 09:05-0400 Diastolic blood pressure 85 mm[Hg] MD Marianela Oliva Work Phone: [facility] 08-15-2024 09:05-0400 Heart rate 80 /min MD Marianela Oliva Work Phone: [facility] 08-15-2024 09:05-0400 Systolic blood pressure 125 mm[Hg] MD Marianela Oliva Work Phone: [facility] 08-11-2024 09:14-0400 Body height 172.72 cm MD Marianela Oliva Work Phone: [facility] 08-11-2024 09:14-0400 Body mass index (BMI) [Ratio] 31.9 kg/m2 MD Marianela Oliav Work Phone: [facility] 08-11-2024 09:14-0400 Body temperature 97.8 [degF] MD Marianela Oliva Work Phone: [facility] 08-11-2024 09:14-0400 Body weight 95.25 kg MD Marianela Oliva Work Phone: [facility] 08-11-2024 09:14-0400 Diastolic blood pressure 72 mm[Hg] MD Marianela Oliva Work Phone: [facility] 08-11-2024 09:14-0400 Heart rate 99 /min MD Marianela Oliva Work Phone: [facility] 08-11-2024 09:14-0400 Respiratory rate 18 /min MD Marianela Oliva Work Phone: [facility] 08-11-2024 09:14-0400 SaO2% (BldA) [Mass fraction] 96 % MD Marianela Oliva Work Phone: [facility] 08-11-2024 09:14-0400 Systolic blood pressure 106 mm[Hg] MD Marianela Oliva Work Phone: [facility] 05-18-2024 10:41-0400 Body height 173.99 cm MD Marianela Oliva Work Phone: [facility] 05-18-2024 10:41-0400 Body mass index (BMI) [Ratio] 32.2 kg/m2 MD Marianela Oliva Work Phone: [facility] 05-18-2024 10:41-0400 Body weight 97.52 kg MD Marianela Oliva Work Phone: [facility] 05-18-2024 10:41-0400 Diastolic blood pressure 82 mm[Hg] MD Marianela Oliva Work Phone: [facility] 05-18-2024 10:41-0400 Heart rate 72 /min MD Marianela Oliva Work Phone: [facility] 05-18-2024 10:41-0400 Systolic blood pressure 117 mm[Hg] MD Marianela Oliva Work Phone: [facility] 01-07-2022 12:45-0400 Body height 170.18 cm Regina Missler Other [facility] Other 01-07-2022 12:45-0400 Body temperature 98.9 [degF] Regina Missler Other [facility] Other 01-07-2022 12:45-0400 Diastolic blood pressure 81 mm[Hg] Regina Missler Other [facility] Other 01-07-2022 12:45-0400 Respiratory rate 18 /min Regina Missler Other [facility] Other 01-07-2022 12:45-0400 SaO2% (BldA) [Mass fraction] Regina Missler Other [facility] Other 01-07-2022 12:45-0400 Systolic blood pressure 121 mm[Hg] Regina Missler Other [facility] Other Encounters Encounter Date Encounter Type Care Provider Facility Start: 07-24-2025 End: 07-24-2025 Clinisync Result Encounter Yasmani Kaylen DO Work Phone: [facility] Unsolicited Start: 07-24-2025 End: 07-24-2025 Clinisync Result Encounter Yasmani Kaylen DO Work Phone: [facility] Unsolicited Start: 07-19-2025 End: 07-19-2025 Bamboo flowsheet Rockfabby Sierraly MANAGER PERIOPERATIVE Work Phone: [facility] Start: 07-19-2025 End: 07-19-2025 Bamboo flowsheet Rock Vanessa MANAGER PERIOPERATIVE Work Phone: [facility] Start: 07-19-2025 End: 07-19-2025 flow sheet Rock Vanessa MANAGER PERIOPERATIVE Work Phone: [facility] Comment on above: Third trimester preg lisa ([facility]); 38 weeks gestation of ([facility]) Start: 07-19-2025 End: 07-19-2025 ambulatory ROCK VANESSA Not Available Start: 07-16-2025 End: 07-16-2025 Clinisync [...] Comment on above: Third trimester preg lisa ([facility]) Start: 07-09-2025 End: 07-09-2025 ambulatory YASMANI KAYLEN Not Available Start: 07-09-2025 End: 07-09-2025 Bamboo flowsheet Yasmani Kaylen DO Work Phone: [facility] Start: 07-09-2025 End: 07-09-2025 Bamboo flowsheet Yasmani Kaylen DO Work Phone: [facility] Start: 07-05-2025 End: 07-05-2025 Bamboo flowsheet Yasmani Kaylen DO Work Phone: [facility] Start: 07-05-2025 End: 07-05-2025 Bamboo flowsheet Yasmani Kaylen DO Work Phone: [facility] Start: 07-05-2025 End: 07-05-2025 flow sheet Yasmani Kaylen DO Work Phone: [facility] Comment on above: 36 weeks gestation o f ([facility]); Third trimester ([facility] Multigravida of advanced maternal age in third trimester ([facility]); History of molar ; Antepartum multigravida of advanced maternal age ([facility]) Start: 07-05-2025 End: 07-05-2025 ambulatory YASMANI KAYLEN [...] Kaylen DO Work Phone: [facility] Comment on above: Third trimester preg lisa ([facility]); 34 weeks gestation of ([facility]); Multigravida of advanced maternal age in third trimester ([facility]) Start: 06-21-2025 End: 06-21-2025 ambulatory YASMANI KAYLEN Not Available Start: 06-19-2025 End: 06-19-2025 Clinisync Result Encounter Yasmani Kaylen DO Work Phone: [facility] Unsolicited Start: 06-19-2025 End: 06-19-2025 Clinisync Result Encounter Yasmani Kaylen DO Work Phone: [facility] Unsolicited Start: 06-12-2025 End: 06-12-2025 ambulatory Marianela Oliva MD Work Phone: [facility] Work Phone: Start: 06-12-2025 End: 06-12-2025 Patient encounter procedure Marianela Oliva MD -[facility] Work Phone: Start: 06-07-2025 End: 06-07-2025 Bamboo flowsheet Yasmani Kaylen DO Work Phone: [facility] Start: 06-07-2025 End: 06-07-2025 Bamboo flowsheet Yasmani Kaylen DO Work Phone: [facility] Start: 06-07-2025 End: 06-07-2025 flow sheet Yasmani Kaylen DO Work Phone: [facility] Comment on above: Third trimester preg lisa ([facility]); 32 weeks gestation of ([facility]); Multigravida of advanced maternal age in third trimester ([facility]) Start: 06-07-2025 End: 06-07-2025 ambulatory YASMANI KAYLEN Not Available Start: 05-22-2025 End: 05-22-2025 flow sheet Yasmani Kaylen DO Work Phone: [facility] Comment on above: 30 weeks gestation o f ([facility]); Third trimester ([facility]); Antepartum multigravida of advanced maternal age ([facility]); Gestational diabetes mellitus (GDM), antepartum, gestational diabetes method of control unspecified ([facility]) Start: 05-22-2025 End: 05-22-2025 ambulatory YASMANI KAYLEN Not Available Start: 05-10-2025 End: 05-10-2025 Bamboo flowsheet Yasmani Kaylen DO Work Phone: [facility] Start: 05-10-2025 End: 05-10-2025 Bamboo flowsheet Yasmani Kaylen DO Work Phone: [facility] Start: 05-10-2025 End: 05-10-2025 flow sheet Yasmani Kaylen DO Work Phone: [facility] Comment on above: size consisten t with dates, antepartum ([facility]) (Primary Dx); Third trimester ([facility]); 28 weeks gestation of ([facility]); Antepartum multigravida of advanced maternal age ([facility]) Start: 05-10-2025 End: 05-10-2025 ambulatory YASMANI KAYLEN Not Available Start: 04-10-2025 End: 04-10-2025 Bamboo flowsheet Yasmani Kaylen DO Work Phone: [facility] Start: 04-10-2025 End: 04-10-2025 Bamboo flowsheet Yasmani Kaylen DO Work Phone: [facility] Start: 04-10-2025 End: 04-10-2025 flow sheet Yasmani Kaylen DO Work Phone: [facility] Comment on above: Second trimester pre gnancy ([facility]); 24 weeks gestation of ([facility]); Diabetes mellitus screening Start: 04-10-2025 End: 04-10-2025 ambulatory YASMANI KAYLEN Not Available Start: 04-02-2025 End: 04-02-2025 Departed [facility] Start: 04-02-2025 End: 04-02-2025 ambulatory Mario Perez - [facility] Facility:[facility] Start: 03-15-2025 End: 03-15-2025 flow sheet Yasmani Kaylen DO Work Phone: [facility] Comment on above: 20 weeks gestation o f ; Second trimester ; Anxiety, generalized ([facility]) Start: 03-15-2025 End: 03-15-2025 ambulatory [...] encounter procedure Marianela Oliva MD Work Phone: [facility] Start: 03-14-2025 End: 03-14-2025 ambulatory Marianela Oliva MD Work Phone: [facility] Work Phone: Start: 02-15-2025 End: [...] Marianela Oliva MD Work Phone: [facility] Physician [facility] Work Phone: Start: 02-15-2025 End: [...] Marianela Oliva MD Work Phone: [facility] Start: 12-27-2024 End: 12-27-2024 ambulatory Marianela Oliva MD Work Phone: [facility] Work Phone: Start: 12-21-2024 End: 12-21-2024 ambulatory YASMANI KAYLEN Not Available Start: 12-07-2024 Non-patient / Non-visit Marianela Oliva MD Work Phone: [facility] Physician [facility] Work Phone: Start: 12-06-2024 End: 12-06-2024 Emergency department patient visit Marianela Oliva MD Work Phone: [facility]-Emergency Room Work Phone: Start: 12-05-2024 End: 12-05-2024 Telephone encounter Yasmani Abdullahi DO Work Phone: [facility] Start: 08-15-2024 Patient encounter status Pooja Oliva MD Work Phone: [facility] Start: 08-15-2024 End: 08-15-2024 ambulatory MD Marianela Oliva Work Phone: [facility] Work Phone: Start: 08-15-2024 End: 08-15-2024 Patient encounter procedure MD Marianela Oliva Work Phone: [facility] Physician [facility] Work Phone: Start: 08-11-2024 End: 08-11-2024 ambulatory MD Marianela Oliva Work Phone: [facility] Work Phone: Start: 08-11-2024 End: 08-11-2024 Patient encounter procedure MD Marianela Oliva Work Phone: [facility] Physician Group-[facility] Work Phone: Start: 08-01-2024 End: 08-01-2024 ambulatory MD Marianela Oliva Work Phone: [facility] Work Phone: Start: 08-01-2024 End: 08-01-2024 Departed Referred MD Marianela Oliva Work Phone: [facility] [place] Work Phone: Start: 05-23-2024 End: 05-23-2024 Patient encounter procedure MD Marianela Oliva Work Phone: [facility] [place] Work Phone: Start: 05-23-2024 End: 05-23-2024 ambulatory MD Marianela Oliva Work Phone: [facility] Work Phone: Start: 05-18-2024 End: 05-18-2024 ambulatory MD Marianela Oliva Work Phone: [facility] Work Phone: Start: 05-18-2024 End: 05-18-2024 Patient encounter procedure MD Marianela Oliva Work Phone: [facility] Work Phone: Start: 05-17-2024 End: 05-17-2024 Departed Referred MD Marianela Oliva Work Phone: [facility] [place] Start: 05-17-2024 End: 05-17-2024 ambulatory MD Marianela Oliva Work Phone: [facility] Work Phone: Start: 07-12-2023 End: 07-12-2023 ambulatory MD Marianela Oliva Work Phone: [facility] Work Phone: Start: 07-12-2023 End: 07-12-2023 Departed Referred MD Marianela Oliva Work Phone: [facility]-Employee Benefit Screening Start: 02-23-2023 End: 02-23-2023 ambulatory MD Marianela Oliva Work Phone: [facility] Work Phone: Start: 02-23-2023 End: 02-23-2023 Patient encounter procedure MD Marianela Oliva Work Phone: [facility] Work Phone: Start: 02-04-2023 End: 02-04-2023 ambulatory Marianela Oliva Other [employer] Other Start: 02-04-2023 Office outpatient vi sit 15 minutes Marianela Oliva [facility] Start: 02-04-2023 Telephone encounter Marianela Oliva [facility] Start: 01-29-2023 End: 01-29-2023 ambulatory Marianela Oliva Other [employer] Other Start: 01-29-2023 Telephone encounter Marianela Oliva [facility] Start: 12-15-2022 End: 12-15-2022 Departed Referred MD Marianela Oliva Work Phone: [facility] [place] Work Phone: Start: 12-04-2022 End: 12-04-2022 ambulatory Marianela Oliva Other [employer] Other Start: 12-04-2022 Telephone encounter Marianela Oliva [facility] Start: 11-10-2022 End: 11-10-2022 ambulatory MD Marianela Oliva Work Phone: [facility] Work Phone: Start: 11-10-2022 End: 11-10-2022 Departed Referred MD Marianela Oliva Work Phone: [facility] [place] Work Phone: Start: 08-07-2022 End: 08-07-2022 ambulatory Regina Huddleston Other [employer] Other Start: 08-07-2022 [facility] Start: 06-26-2022 End: 06-26-2022 ambulatory MD Marianela Oliva Work Phone: [facility] Work Phone: Start: 06-26-2022 End: 06-26-2022 Departed Referred MD Marianela Oliva Work Phone: [facility]-Employee Benefit Screening Start: 01-07-2022 End: 01-07-2022 ambulatory Regina Huddleston Other [employer] Other Start: 01-07-2022 [facility] Start: 12-22-2018 End: 12-23-2018 Patient encounter procedure [facility] Start: 12-09-2018 End: 12-10-2018 [facility] Start: 06-14-2018 Patient encounter MARIANELA OLIVA Fac ility:[facility] Start: 03-22-2018 End: 03-23-2018 Patient encounter procedure [facility] Start: 03-15-2018 End: 03-16-2018 Patient encounter procedure [facility] Start: 03-09-2018 End: 03-09-2018 Patient encounter procedure [facility] Start: 03-07-2018 End: 03-08-2018 Patient encounter procedure [facility] Start: 03-03-2018 End: 03-04-2018 Patient encounter procedure [facility] Start: 03-03-2018 End: 03-03-2018 Patient encounter procedure [facility] Start: 01-20-2018 End: 01-21-2018 Patient encounter procedure Macario Jarvis Facility:[facility] Procedures Date Procedure Procedure Detail Performing Clinician Start: 07-24-2025 US OB BPP W NON-STRESS Yasmani Kaylen DO Work Phone: Start: 07-19-2025 Urnls dip stick/tabl et rgnt non-auto w/o micrscp Rock Eberly MANAGER PERIOPERATIVE Work Phone: Start: 07-16-2025 US OB BPP [...] 12-27-2024 Antibody screen Mario Khalil [facility] Comment on above: Order Comment: NONFA STING.JKW Result Comment: PERF ORMED BY: [facility] [address] [place] [address] PATHOLOGIST CLEARING HAND LEÓN GARCIA M.D. Start: 12-06-2024 Diagnostic ultrasoun [...] ASTONTrenton Start: 12-22-2018 TYPE AND SCREEN [facility] Start: 12-22-2018 Culture bacterial quanttative colony count urine [facility]AU CLANCYTrenton Start: 12-22-2018 Drug screen, qualitate/multi [facility]AU [facility]ONT[facility]on Start: 03-22-2018 Gonadotropin chorion ic quantitative CHAU ASTONTrenton Start: 03-15-2018 Gonadotropin chorion ic quantitative [facility] LCANCYTrenton Start: 03-09-2018 TYPE AND SCREEN CHAU SORENSON Start: 03-09-2018 SURGICAL PATHOLOGY WESL EY [facility]ONT[facility]on Start: 03-09-2018 DISCHARGE PATIENT LORELEI SOERNSON Start: 03-09-2018 ASSESS [facility]AU [facility] Start: 03-09-2018 BEDREST CHAU [place] Start: 03-09-2018 Continuous pulse oximetry CHAU ASTONTrenton Start: 03-09-2018 INITIATE OXYGEN THER APY PROTOCOL [facility]ONT[facility]on Start: 03-09-2018 NEURO/VASCULAR CHECKS W DENG SORENSON Start: 03-09-2018 DIET NPO, NOW CHAU HE DGES Start: 03-09-2018 MEASURE WEIGHT CHAU Tucker EDGES Start: 03-09-2018 NOTIFY PHYSICIAN (SPECIFY) CHAU SORENSON Start: 03-09-2018 NURSING COMMUNICATION Sarahi SORENSON Start: 03-09-2018 PLACE INTERMITTENT P NEUMATIC COMPRESSION DEVICE [facility]ONTrenton Start: 03-09-2018 REMOVE AND REPLACE T ED HOSE DAILY CHAU [facility]ONTrenton Start: 03-09-2018 VITAL SIGNS CHAU BARCENAS GES Start: 03-09-2018 FULL CODE CHAU BARCENAS GES Start: 03-09-2018 VERIFY INFORMED CONSENT CHAU SORENSON [...] 07-19-2025 End: 07-19-2025 Patient encounter procedure [facility] Comment on above: Arrived Start: 07-12-2025 End: 07-12-2025 Patient encounter procedure 07/12/2025 9:10 AM EDT Routine [facility] [address] [place] [id number] Rock Mendez, MANAGER PERIOPERATIVE [address] [place] [id number] [facility] Start: 07-09-2025 End: 07-09-2025 Patient encounter procedure [facility] Comment on above: Arrived Start: 07-05-2025 End: 07-05-2026 CULTURE, GROUP B STREP WITH SUSCEPTIBLITY CULTURE, GROUP B STREP WITH SUSCEPTIBLITY Lab Routine Third trimester ([facility]) Expected: 07/05/2025, Expires: 07/05/2026 [facility] Work Phone: Comment on above: Expected: 07/05/2025 , Expires: 07/05/2026 Start: 07-05-2025 End: 07-05-2025 Patient encounter procedure [facility] Comment on above: Arrived Start: 06-21-2025 End: 06-21-2025 Patient encounter procedure 06/21/2025 9:40 AM EDT Routine [facility] [address] [place] [phone] Yasmani Abdullahi, DO [address] [place] [address] [facility] Start: 06-21-2025 End: 06-21-2025 Professional / ancillary services management 06/21/2025 9:00 AM EDT Ancillary Procedure [facility] [address] [place] [id number] [facility] Start: 06-07-2025 End: 12-08-2025 US biophysical profile w non stress test US biophysical profile w non stress test Imaging Routine Multigravida of advanced maternal age in third trimester ([facility]) Expected: 06/07/2025 (Approximate), Expires: 12/08/2025 [facility] Work Phone: Comment on above: Expected: 06/07/2025 (Approximate), Expires: 12/08/2025 Start: 06-07-2025 End: 06-07-2025 Patient encounter procedure [facility] Comment on above: Arrived Start: 05-22-2025 End: 05-22-2025 Patient encounter procedure 05/22/2025 11:00 AM EDT Routine [facility] [address] [place] [phone] Yasmani Abdullahi, DO [address] [place] [address] [facility] Start: 05-22-2025 End: 05-22-2025 Professional / ancillary services management 05/22/2025 10:30 AM EDT Ancillary Procedure [facility] [address] [place] [address] [facility] Start: 05-10-2025 End: 09-10-2025 US for US OB follow up transabdominal approach Imaging Routine Antepartum multigravida of advanced maternal age ([facility]) Expected: 05/10/2025, Expires: 09/10/2025 [facility] [...] Routine [facility] [address] [place] [address] Yasmani Abdullahi, DO [address] [place] [address] [facility] Start: 03-15-2025 End: 03-15-2025 Professional / ancillary services management 03/15/2025 8:30 AM EDT Ancillary Procedure [facility] [address] [place] [address] [facility] Start: 02-15-2025 End: [...] AM EDT Routine [facility] [address] [facility] [place] [phone] Yasmani Abdullahi, DO [address] [place] [address] Arrived [facility] Comment on above: Arrived Start: 12-27-2024 Bacteria identified in Urine by Culture Urine Culture [facility] Start: 12-27-2024 Rubella IgG measurement [facility] Start: 12-27-2024 Urine culture [facility] Start: 12-27-2024 [facility] Start: 12-21-2024 End: 12-21-2024 ambulatory 12/21/2024 1:30 PM EST Initial [facility] [address] [place] [address] [facility] Start: 12-21-2024 End: 12-21-2024 Professional / ancillary services management 12/21/2024 1:00 PM EST Ancillary Procedure [facility] [address] [place] [id number] [facility] Start: 12-06-2024 Diagnostic ultrasoun d of gravid uterus [facility] Start: 07-12-2023 [facility] CHLAMYDIA TRACHOMATI S (GENITO/STI) CHLAMYDIA TRACHOMATIS (GENITO/STI) Lab Routine Exposure to STD 16 weeks gestation of Second trimester Ordered: 02/15/2025 [facility] Comment on above: Ordered: 02/15/2025 Cytology Cervical or vaginal smear or scraping study Pap Smear Pathology and Cytology Routine Well woman exam with routine gynecological exam Ordered: 02/15/2025 [facility] Comment on above: Ordered: 02/15/2025 Hepatitis B virus surface Ag [Presence] in Serum or Plasma by Immunoassay [facility] Hepatitis C virus Ig G Ab [Presence] in Serum or Plasma by Immunoassay [facility] HIV 1+2 Ab+HIV1 p24 Ag [Presence] in Serum or Plasma by Immunoassay [facility] Human papilloma viru s DNA [Presence] in Unspecified specimen by Probe with amplification HPV DNA probe, amplified Microbiology Routine Well woman exam with routine gynecological exam Ordered: 02/15/2025 [facility] Comment on above: Ordered: 02/15/2025 Measurement of gluco se 1 hour after glucose challenge for glucose tolerance test GTT, 1 hour Lab Routine Antepartum multigravida of advanced maternal age Ordered: 01/18/2025 [facility] [employer] Work Phone: Comment on above: Ordered: 01/18/2025 Neisseria gonorrhoea e DNA [Presence] in Unspecified specimen by CORBY with probe detection Neisseria gonorrhea DNA probe, direct Lab Routine Exposure to STD 16 weeks gestation of Second trimester Ordered: 02/15/2025 [facility] Comment on above: Ordered: 02/15/2025 Patient Education Stomach Pain i n Early [facility] Work Phone: Patient referral [facility] Work Phone: Reagin Ab [Presence] in Serum by RPR [facility] SURESWAB(R) ADVANCED VAGINITIS PLUS, TMA SURESWAB(R) ADVANCED VAGINITIS PLUS, TMA Pathology and Cytology Routine Vaginal discharge Exposure to STD 16 weeks gestation of Second trimester Ordered: 02/15/2025 [facility] [employer] Work Phone: Comment on above: Ordered: 02/15/2025 [facility] Immunizations Immunization Date Immunization Notes Care Provider Fa cility 06-23-2019 tetanus toxoid, redu christen diphtheria toxoid, and acellular pertussis vaccine, adsorbed MD Marianela Oliva Work Phone: [facility] Payers Date Payer Category Payer Unknown [id number] [id number] Self-pay [id number] 2018 Unknown [id number] 2018 Private Health Insurance 2014 Unknown [id number] 1989 Unknown [id number] 2.16.84 0.1.302622.3.579.2.727 1989 Unknown [id number] 2.16.8 40.1.416709.3.579.2.173 1989 Unknown [id number] 2.16.8 40.1.007447.3.579.2.173 1989 Unknown [id number] 2.16.8 40.1.514489.3.579.2.173 1989 Unknown [id number] 2.16.8 40.1.633445.3.579.2.173 1989 Unknown [id number] 2.16.8 40.1.876456.3.579.2.173 1989 Unknown [id number] 2.16.8 40.1.583455.3.579.2.173 1989 Unknown [id number] 2.16.8 40.1.903667.3.579.2.173 1989 Unknown [id number] 2.16.8 40.1.455991.3.579.2.173 1989 Unknown [id number] 2.16.8 40.1.541649.3.579.2.1259 1989 Unknown [id number] 2.16.8 40.1.731846.3.579.2.1259 1989 Unknown [id number] 2.16.8 40.1.719972.3.579.2.1258 1989 Unknown [id number] 2.16.8 40.1.154317.3.579.2.1258 1989 Unknown [id number] 2.16.8 40.1.070445.3.579.2.1258 1989 Unknown [id number] 2.16.8 40.1.727975.3.579.2.1258 1989 Unknown [id number] 2.16.8 40.1.521861.3.579.2.1258 1989 Unknown [id number] 2.16.8 40.1.840955.3.579.2.1258 1989 Unknown [id number] 2.16.8 40.1.359104.3.579.2.1258 1989 Unknown [id number] 2.16.8 40.1.982869.3.579.2.1258 1989 Unknown [id number] 2.16.84 0.1.499568.3.579.2.1258 1989 Unknown [id number] 2.16.84 0.1.381520.3.579.2.1258 1989 Unknown [id number] 2.16.84 0.1.090612.3.579.2.1258 1989 Unknown [id number] 2.16.84 0.1.181492.3.579.2.1258 1989 Unknown [id number] 2.16.84 0.1.679857.3.579.2.1258 1989 Unknown [id number] 2.16.84 0.1.151079.3.579.2.1259 1959 Private Health Insurance [facility] [id number] Unknown [id number] 2.16.8 40.1.147269.3.579.2.531 Unknown [id number] 2.16.8 40.1.525531.3.579.2.531 Unknown [id number] 2.16.8 40.1.986068.3.579.2.531 Unknown [id number] 2.16.8 40.1.494810.3.579.2.531 Unknown [id number] 2.16.8 40.1.825985.3.579.2.531 Unknown [id number] 2.16.8 40.1.059377.3.579.2.531 Unknown [id number] 2.16.8 40.1.600053.3.579.2.531 Unknown [id number] 2.16.8 40.1.849510.3.579.2.531 Social History Date Type Detail Facility Unknown if ever smoked [facility] [employer] Other Start: 01-27-2024 End: 12-21-2024 Sex Assigned At [facility] [employer] Other Start: 06-22-2019 End: 01-26-2024 Tobacco smoking status NHIS Never smoked tobacco (finding) [facility] Start: 1990 Sex Assigned At Female [facility] Start: 01-26-2024 Tobacco use and exposure Smokeless tobacco non-user [facility] Start: 01-27-2024 End: 07-19-2025 Alcoholic beverage intake Current drinker of alcohol (finding) [facility] Start: 01-27-2024 End: 12-21-2024 History of Social function [facility] Start: 01-27-2024 Gender identity Identifies as female gender (finding) [facility] Start: 01-27-2024 Sexual orientation Heterosexual (finding) [facility] Start: 11-04-2024 [facility] Start: 12-06-2024 End: 03-15-2025 Sex Female (finding) [facility] Medical Equipment Procedure Code Equipment Code Equipment Origin al Text Equipment Identifier Dates 1 strip by In Vi tro route Daily Use in the morning prior to breakfast, 1 hour after each meal for a total of 4times daily. [id number] Start: 02-15-2025 End: 03-17-2025 1 each by In Vit ro route Daily Use to check FSBS four times daily [id number] Start: 02-15-2025 End: 03-17-2025 Use as instructed [id number] Start: 04-09-2025 End: 04-09-2026 1 each by In Vit ro route Daily [id number] Start: 04-09-2025 End: 05-09-2025 Clinical Notes 12-16-2021 to 07-19-2025 Rock Mendez, MANAGER PERIOPERATIVE - 07/19/2025 9:50 AM EDTRock Mendez, MANAGER PERIOPERATIVE - 07/09/2025 4:10 PM EDMegan Bridges, CONCESSION CASHIER - 07/05/2025 9:50 AM EDTSusadee Felixr, CONCESSION CASHIER - 06/21/2025 9:40 AM EDT Note Date [...] nursing note reviewed. Exam conducted with a checker present. Vitals: Estimated body mass index is 35.88 kg/m as calculated from the following: Height as of 12/15/22: 5' 8 . Weight as of this encounter: 236 lb. BP: 140/82 Patient's last menstrual period was 10/21/2024. ASSESSMENT & PLAN ICD-10-CM 1. Third trimester ([facility]) Z34.93 2. 38 weeks gestation of ([facility]) Z3A.38 Return OB: Patient presents today [...] Rock Mendez NP documented in this encounter [facility] 07-09-2025 History of Presen t illness [...] nursing note reviewed. Exam conducted with a checker present. Vitals: Estimated body mass index is [...] Yasmani Abdullahi DO documented in this encounter [facility] 07-05-2025 History of Presen t illness [...] nursing note reviewed. Exam conducted with a checker present. Vitals: Estimated body mass index is 35.55 kg/m as calculated from the following: Height as of 12/15/22: 5' 8 . Weight as of this encounter: 233 lb 12.8 oz. BP: 110/78 Patient's last menstrual period was 10/21/2024. ASSESSMENT & PLAN ICD-10-CM 1. 36 weeks gestation of ([facility]) Z3A.36 POCT urinalysis dipstick manually resulted 2. Third trimester ([facility]) Z34.93 POCT urinalysis dipstick manually resulted CULTURE, GROUP B STREP WITH SUSCEPTIBLITY CULTURE, GROUP B STREP WITH SUSCEPTIBLITY 3. Multigravida of advanced maternal age in third trimester ([facility]) O09.523 4. History of molar Z87.59 5. Antepartum multigravida of advanced maternal age ([facility]) O09.529 Patient is doing well but [...] Yasmani Abdullahi DO documented in this encounter [facility] 06-21-2025 History of Presen t illness [...] nursing note reviewed. Exam conducted with a checker present. Vitals: Estimated body mass index is 35.12 kg/m as calculated from the following: Height as of 12/15/22: 5' 8 . Weight as of this encounter: 231 lb. BP: 124/72 Patient's last menstrual period was 10/21/2024. ASSESSMENT & PLAN ICD-10-CM 1. Third trimester ([facility]) Z34.93 POCT urinalysis dipstick manually resulted 2. 34 weeks gestation of ([facility]) Z3A.34 3. Multigravida of advanced maternal age in third trimester ([facility]) O09.523 Patient presents today for a [...] Yasmani Abdullahi DO documented in this encounter [facility] 06-07-2025 History of Presen t illness Narrative [...] Past Medical History: Diagnosis Date Anxiety Melanoma ([facility]) 2021 HISTORY PAST MEDICAL HISTORY [...] nursing note reviewed. Exam conducted with a checker present. Vitals: Estimated body mass index is 35.14 kg/m as calculated from the following: Height as of 12/15/22: 5' 8 . Weight as of this encounter: 231 lb 1.9 oz. BP: 112/70 Patient's last menstrual period was 10/21/2024. ASSESSMENT & PLAN ICD-10-CM 1. Third trimester ([facility]) Z34.93 POCT urinalysis dipstick manually resulted 2. 32 weeks gestation of ([facility]) Z3A.32 POCT urinalysis dipstick manually resulted 3. Multigravida of advanced maternal age in third trimester ([facility]) O09.523 US biophysical profile w non stress test Patient presents today for a routine obstetrics appointment. Patient is currently 32w5d with a Estimated Date of Delivery: 07/28/25. Patient given orders for NST/BPP's to be started until delivery. Orders will also be sent to [facility] Scheduling and [facility] FBC. Patient to return to clinic in 2 weeks. Documented by Eugenia Bridges LPN on behalf of: Yasmani Abdullahi DO documented in this encounter [facility] 05-22-2025 History of Presen t illness [...] nursing note reviewed. Exam conducted with a checker present. Vitals: Estimated body mass index is 34.64 kg/m as calculated from the following: Height as of 12/15/22: 5' 8 . Weight as of this encounter: 227 lb 12.8 oz. BP: 110/72 Patient's last menstrual period was 10/21/2024. ASSESSMENT & PLAN ICD-10-CM 1. 30 weeks gestation of ([facility]) Z3A.30 POCT urinalysis dipstick manually resulted 2. Third trimester ([facility]) Z34.93 POCT urinalysis dipstick manually resulted 3. Antepartum multigravida of advanced maternal age ([facility]) O09.529 POCT urinalysis dipstick manually resulted 4. Gestational diabetes mellitus (GDM), antepartum, gestational diabetes method of control unspecified ([facility]) O24.419 POCT urinalysis dipstick manually [...] Yasmani Abdullahi DO documented in this encounter [facility] 05-10-2025 History of Presen t illness [...] nursing note reviewed. Exam conducted with a checker present. Vitals: Estimated body mass index is 34.25 kg/m as calculated from the following: Height as of 12/15/22: 5' 8 . Weight as of this encounter: 225 lb 4 oz. BP: 124/78 Patient's last menstrual period was 10/21/2024. ASSESSMENT & PLAN ICD-10-CM 1. size consistent with dates, antepartum ([facility]) Z34.90 US OB follow up transabdominal approach 2. Third trimester ([facility]) Z34.93 POCT urinalysis dipstick manually resulted 3. 28 weeks gestation of ([facility]) Z3A.28 Patient presents today for a routine obstetrics appointment. Patient is currently 28w5d with a Estimated Date of Delivery: 07/28/25. Patient to return to clinic in 2 weeks for return OB and Growth US. Patient is going to [facility] after this appointment to receive her Rhogam injection. Patient will call office with any concerns or questions in the meantime. Documented by Eugenia Bridges LPN on behalf of: Yasmani Abdullahi DO documented in this encounter [facility] 04-10-2025 History of Presen t illness [...] Past Medical History: Diagnosis Date Anxiety Melanoma ([facility]) 2021 HISTORY PAST MEDICAL HISTORY [...] nursing note reviewed. Exam conducted with a checker present. Vitals: Estimated body mass index is 33.88 kg/m as calculated from the following: Height as of 12/15/22: 5' 8 . Weight as of this encounter: 222 lb 12.8 oz. BP: 108/68 Patient's last menstrual period was 10/21/2024. ASSESSMENT & PLAN ICD-10-CM 1. Second trimester ([facility]) Z34.92 POCT urinalysis dipstick manually resulted 2. 24 weeks gestation of ([facility]) Z3A.24 POCT urinalysis dipstick manually resulted [...] Yasmani Abdullahi DO documented in this encounter [facility] 03-15-2025 History of Presen t illness [...] Past Medical History: Diagnosis Date Anxiety Melanoma ([facility]) 2021 HISTORY PAST MEDICAL HISTORY [...] nursing note reviewed. Exam conducted with a checker present. Vitals: Estimated body mass index is [...] CBC drawn yesterday. Patient was provided with manager perioperative email to send FSBS results & more forms we given to patient to track sugars. Patient to RTC in 4 weeks for routine OB care. Documented by Eugenia Bridges LPN on behalf of: Yasmani Abdullahi DO documented in this encounter [facility] 02-15-2025 History of Presen t illness [...] nursing note reviewed. Exam conducted with a checker present. Vitals: Estimated body mass index is [...] Yasmani Abdullahi DO documented in this encounter [facility] 01-18-2025 History of Presen t illness [...] nursing note reviewed. Exam conducted with a checker present. Vitals: Estimated body mass index is [...] or undercooked meat, and stay away from [facility]. Patient has been consulted regarding any [...] Yasmani Abdullahi DO documented in this encounter [facility] 12-05-2024 Telephone encount er Note Pt is OB and scheduled for intake in December. She called with complaints of kidney pain and left abd pain. Per nurse patient advised to be evaluated at Hospital[facility]. She also had questions about Zoloft during . Pt transferred to nurse to discuss. [facility] 12-05-2024 Miscellaneous Notes Formattin g of this note might be different from the original. 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 She called with complaints of kidney pain and left abd pain. Per nurse patient advised to be evaluated at Hospital[facility]. She also had questions about Zoloft during . Pt transferred to nurse to discuss. documented in this encounter [facility] 02-04-2023 Evaluation note Encounter Date Diagnosis Assessment Notes Jan, Family history of BRCA gene mutation (ICD-10 - Z84.81) Discussed family history. Pt would like to be checked. She has weighed the risks and benefits and states she would be interested in a B mastectomy if indicated. After calling [facility], the decision was to fax lab order to [facility]. Order handwritten. Jan, Family history of breast cancer (ICD-10 - Z80.3) Mamm ordered. Jan, Screening mammogram for breast cancer (ICD-10 - Z12.31) [employer] Other 10-21-2022 Evaluation note* Encounter Date Diagnosis Assessment Notes Treatment Notes Treatment Clinical Notes Jul, Strep pharyngitis (ICD-10 - J02.0) [facility] Other 03-23-2022 Evaluation note* Encounter Date Diagnosis [...] were not corrected during the review process. [facility] Other 03-01-2022 History general Narrative - Reported* Type Description Date Medical History post pardom depression Surgical History wisdom teeth Surgical History D&C Surgical History melanoma excision 12/16/21 Hospitalization History child x4 [facility] Other 03-01-2022 History general Narrative - Reported* Type Description Date Medical History post pardom depression Medical History Anxiety, generalized Surgical History wisdom teeth Surgical History D&C Surgical History melanoma excision 12/16/21 Hospitalization History child x4 Hospitalization History see surgical hx [employer] Other Evaluation noteNo assessment information available [facility] Work Phone: [facility]No [facility] [employer] Other Evaluation note* Diagnosis Onset Date Resolution Status Mass of skin of chest acute [facility] Work Phone: Evaluation note* Diagnosis Onset Date Resolution Status Mass of skin of chest acute Right lower lobe pneumonia n [employer] [facility] Work Phone: Evaluation note* Diagnosis [...] please be sure to follow-up with your SANDER MACHINE and primary care provider. If you develop worsening pain, vaginal bleeding, fevers, other symptoms as we discussed please return the emergency department for reevaluation.[facility] Work Phone: Reason for referral (narrative)No reason for referral information [facility] Work Phone: Summary Purpose Family History Relationship Condition Age at Onset Recorded Date/T nneo Not Specified No pertinent family history Unknown Advance Directives Advance Directive Response Recorded Date/ Time Advance Directives No January 27 2:48pm Advance Directive Response Recorded Date/ Time Advance Directives No January 27 019 3:48pm Chief Complaint and Reason for Visit [...] section and content) DATE CREATED AUTHOR 04/05/2018 [facility] DATE CREATED AUTHOR AUTHOR'S ORGANIZ ATION 06/15/2018 [facility] DATE CREATED AUTHOR AUTHOR'S ORGANIZ ATION 12/15/2018 [facility] DATE CREATED AUTHOR AUTHOR'S ORGANIZ ATION 12/25/2018 [facility] DATE CREATED AUTHOR AUTHOR'S ORGANIZ ATION 04/03/2025 [facility] DATE CREATED AUTHOR AUTHOR'S ORGANIZ ATION 07/23/2025 [facility] EPIC REASON FOR VISIT (unrecogniz ed section and content) Reason Comments Routine Visit Care Teams (unrecognized sec tion and content) Team Status: Inactive Member Role Status Dates Marianela Oliva MD Primary Care Provider Active Mario Perez DO [facility] Attending Provider Active Team Status: Active Member Role Status Dates Mariaenla Oliva MD Primary Care Provider Active Team [...] Team Status: Inactive Member Role Status Dates Mariaenla Oliva MD Primary Care Provider Active Start: May 17, 2024 End: May 17, 2024 Mario BALL DO [facility] Attending Provider Active Start: May 17, 2024 [...] August 15, 2024 End: August 15, 2024 Snow Groomer Relationship Specialty Start Date End Date Marianela Oliva MD [facility] [place] [phone] PCP - General Family Medicine 01/27/24 Team Status: Inactive Member Role Status Dates Mairanela Oliva MD Primary Care Provider Active Start: [...] December 27, 2024 End: December 27, 2024 Snow Groomer Relationship Specialty Start Date End Date Marianela Oliva MD [address] [place] [phone] PCP - General Family Medicine 01/27/24 Snow Groomer Relationship Specialty Start Date End Date Marianela Oliva MD [address] [place] [phone] PCP - General Family Medicine 01/27/24 Snow Groomer Relationship Specialty Start Date End Date Marianela Oliva MD PCP - General Family Medicine 01/27/24 Snow Groomer Relationship Specialty Start Date End Date Marianela Oliva MD PCP - General Family Medicine 01/27/24 Snow Groomer Relationship Specialty Start Date End Date Marianela Oliva MD PCP - General Family Medicine 01/27/24 Snow Groomer Relationship Specialty Start Date End Date Marianela Oliva MD PCP - General Family Medicine 01/27/24 Snow Groomer Relationship Specialty Start Date End Date Marianela [...] March 14, 2025 End: March 14, 2025 Snow Groomer Relationship Specialty Start Date End Date Marianela Oliva MD [address] [place] [facility] [place] [address] PCP - General Family Medicine 01/27/24 Snow Groomer Relationship Specialty Start Date End Date Marianela Oliva MD [address] [place] [facility] [place] [address] PCP - General Family Medicine 01/27/24 Snow Groomer Relationship Specialty Start Date End Date Marianela Oliva MD [address] [place] [facility] [place] [address] PCP - General Family Medicine 01/27/24 Snow Groomer Relationship Specialty Start Date End Date Marianela Oliva MD [address] [facility] [place] [address] PCP - General Family Medicine 01/27/24 Snow Groomer Relationship Specialty Start Date End Date Marianela Oliva MD [address] [place] [facility] [place] [address] PCP - General Family Medicine 01/27/24 Team Status: Inactive Member Role Status Dates Marianela Oliva MD Primary Care Provider Active Start: April 02, 2025 End: April 02, 2025 Mario Perez - [facility] , [facility] Attending Provider Active Start: April 02, 2025 End: April 02, 2025 Team Status: Inactive Member Role Status Dates Marianela Oliva MD Primary Care Provider Active Start: June 12, 2025 End: June 12, 2025 Marianela Oliva MD Attending Provider Active St art: June 12, 2025 End: June 12, 2025 Snow Groomer Relationship Specialty Start Date End Date Marianela Oliva MD [address] [place] [facility] [place] [phone] PCP - General Family Medicine 01/27/24 Snow Groomer Relationship Specialty Start Date End Date Marianela Oliva MD [address] [place] [facility] [place] [address] PCP - General Family Medicine 01/27/24 Snow Groomer Relationship Specialty Start Date End Date Marianela Oliva MD [address] [place] [facility] [place] [address] PCP - General Family Medicine 01/27/24 Snow Groomer Relationship Specialty Start Date End Date Marianela Oliva MD [address] [facility] [place] [address] PCP - General Family Medicine 01/27/24 Snow Groomer Relationship Specialty Start Date End Date Marianela Oliva MD [address] [place] [facility] [place] [address] PCP - General Family Medicine 01/27/24 [...] BE BASED ON THE PRIMARY CLINICAL RECORDS. [facility] [facility] provides no warranty or guarantee of the accuracy or completeness of information in this document.
[2025-07-26 05:51] LABS: Hematocrit 36.1 % (36.0-48.0); Hemoglobin 12.6 g/dL (12.0-16.0); Mean Corpuscular HGB Conc 34.9 g/dL (29.9-35.2); Mean Corpuscular Hemoglobin 29.3 pg (26.7-34.0); Mean Corpuscular Volume 84.0 fL (81.0-99.0); Platelet Count 181 10^3/uL (150-450); Red Blood Count 4.30 10^6/uL (4.20-5.40); White Blood Count 5.8 10^3/uL (4.0-11.0)
[2025-07-26] MEDS: OXYTOCIN/0.9 % SODIUM CHLORIDE 10 UNITS/500 ML PLAST..BAG 6 UNIT IV (06:00)
[2025-07-26] MEDS: 0.9 % SODIUM CHLORIDE 1,000 ML 125 ML IV (06:00)
[2025-07-26 06:19] LABS: Cannabinoid Screen Urine NEGATIVE (NEGATIVE); Methamphetamines Screen Urine NEGATIVE (NEGATIVE); Tricyclic Antidepressant Urine NEGATIVE (NEGATIVE)
[2025-07-26] MEDS: ROPIVACAINE HCL/PF 400 MG/200 ML PREMIX 6 MG EPIDURAL (08:13)
[2025-07-26] MEDS: 0.9 % SODIUM CHLORIDE 1,000 ML 1000 ML IV (08:14)
--- NOTE | 2025-07-26 17:12 | PM.OBPRCVD ---
Procedure Intrapartal events: None Induction method: per pitocin protocol Delivery augmentation: rupture of membranes and pitocin Delivery monitor: external FHT and external uterine Route of delivery: Episiotomy Description: none L&D Laceration Description: none Estimated blood loss (mL): 100 Anesthesia type: Epidural Disposition: floor Delivery date: 07/26/25 Gender: female presentation: vertex Placental delivery description: Spontaneous cord description: 3 Vessels
[2025-07-26] MEDS: OXYTOCIN/0.9 % SODIUM CHLORIDE 20 UNITS/1,000 ML PLAST..BAG 125 UNIT IV (17:40)
[2025-07-27] MEDS: IBUPROFEN 600 MG TABLET PO (03:20)
[2025-07-27 06:32] LABS: Hematocrit 33.2 % (36.0-48.0); Hemoglobin 11.1 g/dL (12.0-16.0); Immature Granulocytes Abs Auto 0.04 10^3/uL (0.00-0.03); Immature Granulocytes Pct Auto 0.4 % (0.0-0.5); Lymphocytes Absolute Auto 1.4 10^3/uL (1.2-3.8); Mean Corpuscular HGB Conc 33.4 g/dL (29.9-35.2); Mean Corpuscular Hemoglobin 28.8 pg (26.7-34.0); Mean Corpuscular Volume 86.0 fL (81.0-99.0); Platelet Count 141 10^3/uL (150-450); Red Blood Count 3.86 10^6/uL (4.20-5.40); White Blood Count 9.6 10^3/uL (4.0-11.0)
--- NOTE | 2025-07-27 07:58 | P.OBPN_ITS ---
OB - PN: Subj Subjective Patient comments: no complaints and pain well controlled [place] status: doing well Exam Constitutional Vital Signs, click to edit/add: Last Vital Signs Temp 97.3 F L 07/26/25 12:40 Pulse 85 07/26/25 23:33 BP 135/73 07/26/25 23:33 O2 Del Method Room Air 07/26/25 23:30 Documenting provider has reviewed patient's vital signs: yes Common normals: no apparent distress Respiratory Common normals: normal respiratory effort and clear to auscultation bilaterally Cardio Common normals: regular rate and regular rhythm GI Common normals: Normal to inspection, nondistended, normoactive bowel sounds present Extremity Common normals: no clubbing, cyanosis or edema and no calf tenderness Results Labs Labs: Short CBC 07/27/25 Range/Units 06:25 WBC 9.6 (4.0-11.0) 10^3/uL Hgb 11.1 L (12.0-16.0) g/dL Hct 33.2 L (36.0-48.0) % Plt Count 141 L (150-450) 10^3/uL OB - PN: A/P Plan - Vaginal Delivery day: 2 Plan: routine care, discharge home and follow up 6 weeks Time Spent with Patient Time: Total time spent is greater than 50% in coordination of care (as documented) at patient's floor/unit and/or counseling patient: Total time spent with greater than 50% in coordination of care (as documented) at patient's floor/unit and/or counseling patient: less than 15 minutes
[2025-07-27 08:40] VITALS: BP 123/77; PULSE 79; TEMP 37
[2025-07-27] MEDS: DOCUSATE SODIUM 100 MG CAPSULE PO (13:18)
[2025-07-27 17:00] VITALS: BP 133/82; PULSE 81; TEMP 36.7
== END 2025-07-27 19:53 | disposition home or self-care (01) | DRG 807 ==
PROVIDERS: Admitting Provider Obstetrics & Gynecology; Family Provider Family Medicine; PCP Family Medicine; Visit Provider Obstetrics & Gynecology
DX: O24.429 Gestational diabetes mellitus in childbirth, unspecified control (principal); Z37.0 Single live birth; Z3A.39 39 weeks gestation of pregnancy; O26.893 Other specified pregnancy related conditions, third trimester; Z67.21 Type B blood, Rh negative; Z85.820 Personal history of malignant melanoma of skin
CPT/HCPCS: 36415; 59050; 59410; 80307; 82948; 85025; 85027; 86850; 86900; 86901; J0665; J2795; J3010